=== PATIENT | male | born 1975 | race Caucasian/White ===

== ENCOUNTER 2021-09-14 07:19 | Outpatient (CLI) | payer BC, SELFPAY ==
[2021-09-14 08:17] LABS: International Normalized Ratio 1.8; Prothrombin Time (Protime)PT. 19.9 SECONDS (11.7-14.9)
[2021-09-14 08:18] LABS: Partial Thromboplast Time 45.6 Seconds (24.1-36.2)
[2021-09-14 08:24] LABS: Erythrocyte Sedimentation Rate 37 mm/hr (0-20)
[2021-09-14 08:31] LABS: Absolute Neutrophil Count 5.2 X10^3/uL (2.0-7.7); Basophil# 0.06 X10^3/uL; Basophil% 0.8 % (0-1); Eosinophil# 0.35 X10^3/uL; Eosinophils% 4.7 % (0-5); Hematocrit 32.5 % (40-54); Mean Corpuscular Volume 102.8 fL (80-94); Mean Platelet Vol. 9.3 fl (6.2-12.0); Monocyte# 0.67 X10^3/uL; Monocyte% 8.9 % (0-10); NRBC Flagged by Analyzer 0 % (0-5); Neutrophil # 5.22 X10^3/uL (2.7-7.7); Neutrophil % 69.3 % (47-70); POSITIVE COUNT YES; Platelet Count 147 K/mm3 (150-450); RBC Distribution Width CV 12.6 % (11.6-14.6); RBC Distribution Width SD 47.4 fl (35.1-43.9); Red Blood Count 3.16 M/mm3 (4.6-6.2); White Blood Count 7.5 K/mm3 (4.4-11.0)
[2021-09-14 08:39] LABS: Hemoglobin A1c 7.3 % (3.8-5.6)
[2021-09-14 08:48] LABS: ALB/GLOB Ratio 0.5 RATIO (0.9-2.4); AST(SGOT) 49 U/L (15-37); Alanine Aminotransfer ALT/SGPT 36 U/L (16-61); Albumin, Serum 2.7 g/dL (3.2-5.0); Alkaline Phosphatase 318 U/L (45-117); Anion Gap 7 (5-15); BUN 13 mg/dL (7-18); Bilirubin, Direct 1.89 mg/dL (0.00-0.30); CRP 4.16 mg/L (0.0-3.0); Calcium,Total 8.6 mg/dL (8.5-10.1); Chloride 97 mmol/L (98-107); Creatinine, Serum 0.93 mg/dL (0.70-1.30); EST Glomerular Filtration Rate 93 mL/min (>60); Est Glom Filt Rate - Afr Amer 112 mL/min (>60); Ferritin 382 ng/mL (26-388); Globulin 5.1 g/dL (2.2-4.2); Glucose 204 mg/dL (74-106); Iron 212 ug/dL (65-175); Iron Binding Capacity,Total 235 ug/dL (250-450); LDH 222 U/L (87-241); PERCENT IRON SATURATION 90.2 % (15.0-55.0); Protein, Total 7.8 g/dL (6.4-8.2); Sodium Level 132 mmol/L (136-145)
[2021-09-14 09:13] LABS: Hepatitis C Antibody Non-Reactive (Nonreactive)
[2021-09-14 09:21] LABS: Mean Corpuscular Hgb 41.1 pg (27.0-32.0)
[2021-09-15 16:10] LABS: Anti-Centromere B Ab <0.2 AI (0.0-0.9); Anti-Chromatin <0.2 AI (0.0-0.9); Anti-Jo <0.2 AI (0.0-0.9); Anti-Scleroderma-70 AB <0.2 AI (0.0-0.9); RNP Ab 1.6 AI (0.0-0.9); SJOGREN'S Anti-SS-A test < 0.2 AI (0.0-0.9); SJOGREN'S Anti-SS-B test < 0.2 AI (0.0-0.9); Smith Ab <0.2 AI (0.0-0.9)
[2021-09-15 17:51] LABS: Anti-Mitochondrial AB <20.0 Units (0.0-20.0); Anti-dsDNA Ab <1 IU/mL (0-9)
[2021-09-16 16:11] LABS: Angiotensin Convert Enzyme 186 U/L (14-82)
[2021-09-16 19:08] LABS: Anti-Smooth Muscle ABS 16 Units (0-19)
[2021-09-16 19:09] LABS: Ceruloplasmin 13.6 mg/dL (16.0-31.0); Perinuclear Ab (P-ANCA) <1:20 titer (Neg:<1:20)
== END 2021-09-14 23:59 | disposition home or self-care (01) ==
LOC: LAB 07:24
PROVIDERS: Referring Provider Nurse Practitioner Adult Health; Visit Provider Nurse Practitioner Adult Health
DX: K70.10 Alcoholic hepatitis without ascites (principal)
CPT/HCPCS: 36415; 80053; 82140; 82164; 82248; 82390; 82728; 83036; 83516; 83540; 83550; 83615; 85025; 85610; 85652; 85730; 86140; 86225; 86235; 86256; 86803

== ENCOUNTER 2021-09-26 11:08 | Emergency (ER) | payer BC, SELFPAY ==
[2021-09-26 11:10] VITALS: BP 160/91; PULSE 98; RESP 18; TEMP 36.5; O2SAT 100; BMI 24.3
[2021-09-26 11:48] LABS: Absolute Neutrophil Count 5.6 X10^3/uL (2.0-7.7); Basophil# 0.04 X10^3/uL; Basophil% 0.6 % (0-1); Eosinophil# 0.05 X10^3/uL; Eosinophils% 0.7 % (0-5); Lymphocyte % 11.4 % (19-41); Mean Platelet Vol. 9.2 fl (6.2-12.0); Monocyte# 0.55 X10^3/uL; Monocyte% 7.8 % (0-10); NRBC Flagged by Analyzer 0 % (0-5); Neutrophil # 5.57 X10^3/uL (2.7-7.7); Neutrophil % 79.1 % (47-70); POSITIVE COUNT YES; Platelet Count 127 K/mm3 (150-450); RBC Distribution Width CV 13.2 % (11.6-14.6); RBC Distribution Width SD 52.6 fl (35.1-43.9); Red Blood Count 3.29 M/mm3 (4.6-6.2)
[2021-09-26 12:01] LABS: Hemoglobin 12.9 g/dL (13.0-16.5)
[2021-09-26 12:02] LABS: AST(SGOT) 63 U/L (15-37); Alanine Aminotransfer ALT/SGPT 41 U/L (16-61); Alkaline Phosphatase 181 U/L (45-117); Anion Gap 8 (5-15); BUN 20 mg/dL (7-18); BUN/Creat Ratio 17.2 RATIO (10-20); Bilirubin, Direct 2.19 mg/dL (0.00-0.30); Calcium,Total 9.5 mg/dL (8.5-10.1); Chloride 100 mmol/L (98-107); Creatinine, Serum 1.16 mg/dL (0.70-1.30); EST Glomerular Filtration Rate 72 mL/min (>60); Est Glom Filt Rate - Afr Amer 87 mL/min (>60); Estimated Creatinine Clearance 78.72 ml/min; Globulin 5.5 g/dL (2.2-4.2); Glucose 184 mg/dL (74-106); Hematocrit 35.4 % (40-54); Lipase 194 U/L (73-393); Mean Corp Hgb Conc 36.4 g/dL (32-36); Mean Corpuscular Hgb 38.7 pg (27.0-32.0); Mean Corpuscular Volume 106.3 fL (80-94); Potassium 4.3 mmol/L (3.5-5.1); Protein, Total 8.5 g/dL (6.4-8.2); Sodium Level 132 mmol/L (136-145)
[2021-09-26 12:07] LABS: International Normalized Ratio 1.6; Prothrombin Time (Protime)PT. 18.6 SECONDS (11.7-14.9)
--- NOTE | 2021-09-26 12:31 | ED.VIS.GI ---
HPI HPI - GI History of Present Illness Chief Complaint: Confusion Narrative Narrative: 46-year-old male with history of alcoholic hepatitis, elevated bilirubin, hepatic encephalopathy presenting with some confusion. He states he does have confusion at baseline but feels more confused. He states his jaundice is back. Patient states he was started on pioglitazone by Dr. Martinez and this is making him feel nauseous. He does not admit to drinking alcohol anymore. PFSH PFSH Medical History Liver damage Home Medications cyanocobalamin (vitamin B-12) 1,000 mcg capsule 1,000 mcg PO DAILY 09/13/21 [History Last Taken Unknown] folic acid 1 mg tablet 1 mg PO DAILY 09/13/21 [History Last Taken Unknown] neomycin 500 mg tablet 500 mg PO BID #180 tab 09/23/21 [Rx Last Taken Unknown] pioglitazone 30 mg tablet 30 mg PO DAILY #90 tab 09/23/21 [Rx Last Taken Unknown] furosemide 40 mg tablet 40 mg PO DAILY #30 tab 09/24/21 [Rx Last Taken Unknown] lactulose 20 gram/30 mL oral solution 20 g PO BID #1200 ml 09/24/21 [Rx Last Taken Unknown] pantoprazole 40 mg tablet,delayed release 40 mg PO DAILY #30 tab 09/24/21 [Rx Last Taken Unknown] spironolactone 50 mg tablet 50 mg PO DAILY #30 tab 09/24/21 [Rx Last Taken Unknown] lactulose 30 g PO Q1H 1 Days #1080 ml 09/26/21 [Rx Last Taken Unknown] Allergy/AdvReac Type Severity Reaction Status Date / Time No Known Allergies Allergy Verified 09/26/21 11:12 Family History Other CVA (cerebral vascular accident) Heart disease Hypertension 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 Status: Former smoker alcohol intake: former substance use type: does not use what type of physical activity do you participate in: other frequency: 1-2 times per week ROS ROS ED Constitutional Constitutional ED: Denies chills or fever(s) ENT ENT ED: Denies rhinorrhea or sore throat Cardiovascular Cardiovascular: Denies chest pain or palpitations Respiratory/Chest Respiratory/Chest: Denies cough or dyspnea Gastrointestinal Gastrointestinal: Reports nausea; Denies abdominal pain Genitourinary Genitourinary ED: Denies dysuria or hematuria Musculoskeletal Musculoskeletal: Denies myalgias or neck pain Integumentary Denies rash Neurologic Neurologic: Denies headache(s) or weakness EXAM Physical Exam Const Vital Signs: 09/26/21 11:10 09/26/21 11:44 09/26/21 13:57 Temperature 97.7 F L Temperature Source Temporal Pulse Rate 98 79 Respiratory Rate 18 16 Respiratory Effort Normal Respiratory Pattern Normal Blood Pressure 160/91 H 146/77 H Blood Pressure Mean 114 100 Pulse Ox 100 98 Oxygen Delivery Method Room Air Room Air 09/26/21 15:09 Temperature Temperature Source Pulse Rate 78 Respiratory Rate 16 Respiratory Effort Respiratory Pattern Blood Pressure 139/89 H Blood Pressure Mean 105 Pulse Ox 99 Oxygen Delivery Method Positive well nourished General Appearance ED: NAD HEENT normocephalic and atraumatic Eyes PERRL and EOMs intact bilaterally General Eye ED: Yes scleral icterus Neck no lymphadenopathy and supple Resp normal respiratory effort and clear to auscultation bilaterally Cardio regular rate and regular rhythm GI non-tender and non-distended Palpation: soft Neuro Sensorium / Orientation: alert, oriented to person, oriented to place and oriented to time Psych Psych Narrative: Patient is a poor informant and unable to give full history due to his confusion but is alert and oriented x3 Skin General Skin Exam: jaundice Rashes: no rashes MDM MDM MDM Narrative Medical decision making narrative: 46-year-old male presenting with history of alcoholic hepatitis and worsening confusion. Apparently he used to live in [place] and was diagnosed with this in September 2020. He states he does not drink any longer but continues to have problems. He has never had ascites. He has had coagulopathy. Patient is already seen in by Dr. Martinez's office and at that time he had a high ammonia level. He was given lactulose for home. Patient also states he was started on pioglitazone. Patient is currently waiting for liver elastography and liver biopsy due to his high meld score. Dr. Martinez also wants to perform an EGD to check for esophageal varices. After reviewing the medical record I went back into the room to speak with the patient and his and he seems to be more awake and alert currently. We went over his medical history. We went over all of his lab results. I discussed with him that I had spoken with Dr. Martinez and that he recommended staying on the medications he had prescribed and recommended lactulose every hour for the next day and then a follow-up ammonia level. Patient CBC is unremarkable. BMP does show hyperglycemia with a glucose 24 without an anion gap and I did review the record and saw that his A1c was 7.2. Patient is currently on pioglitazone he was given follow-up with endocrinology. His total bilirubin is elevated at 7.60 over his previous and his direct bilirubin is not significantly much more elevated. This was discussed with Dr. Martinez and he felt the patient could follow-up outpatient with him for repeat lab work after he gets lactulose any wants to recheck his ammonia in 24 hours anyway. Patient's vitals are normal. He is amenable to this plan. I did add on a urinalysis which was negative for infection. Urine drug screen was requested by Dr. Martinez and this is normal. EtOH negative. Acetaminophen level normal. Dr. Martinez did add on a copper level which I do not believe come back today. He did have concern for Mario's disease. Patient amenable to this discharge plan he will follow-up with Dr. Martinez. Impression: 1. Hepatic encephalopathy 2. History of alcoholic hepatitis Lab Data Attestation: I reviewed the patient's lab results. Labs: Laboratory Results - last 24 hr 09/26/21 09/26/21 09/26/21 11:40 11:40 11:40 WBC 7.0 RBC 3.29 L Hgb 12.9 L Hct 35.4 L MCV 106.3 H MCH 38.7 H MCHC 36.4 H RDW Std Deviation 52.6 H RDW Coeff of Kaela 13.2 Plt Count 127 L MPV 9.2 Immature Gran % (Auto) 0.400 Neut % (Auto) 79.1 H Lymph % (Auto) 11.4 L Granite % (Auto) 7.8 Eos % (Auto) 0.7 Baso % (Auto) 0.6 Absolute Neuts (auto) 5.6 Absolute Lymphs (auto) 0.80 L Nucleated RBC % 0 PT 18.6 H INR 1.6 Sodium 132 L Potassium 4.3 Chloride 100 Carbon Dioxide 24.0 Anion Gap 8 BUN 20 H Creatinine 1.16 Estim Creat Clear Calc 78.72 Est GFR (MDRD) Af Amer 87 Est GFR (MDRD) Non-Af 72 BUN/Creatinine Ratio 17.2 Glucose 184 H Calcium 9.5 Total Bilirubin 7.60 H Direct Bilirubin 2.19 H AST 63 H ALT 41 Alkaline Phosphatase 181 H Ammonia Total Protein 8.5 H Albumin 3.0 L Globulin 5.5 H Lipase 194 Urine Color Urine Clarity Urine pH Ur Specific [place] Urine Protein Urine Glucose (UA) Urine Ketones Urine Occult Blood Urine Nitrite Urine Bilirubin Urine Urobilinogen Ur Leukocyte Esterase Urine RBC Urine WBC Ur Squamous Epith Cells Urine Bacteria Urine Mucus Urine Opiates Screen Urine Methadone Screen Acetaminophen Ur Barbiturates Screen Ur Phencyclidine Scrn Ur Amphetamines Screen MDMA (Ecstasy) Screen U Benzodiazepines Scrn Urine Cocaine Screen U Cannabinoids Screen Ur Drug Screen Comment Ethyl Alcohol 09/26/21 09/26/21 09/26/21 11:40 14:35 14:40 WBC RBC Hgb Hct MCV MCH MCHC RDW Std Deviation RDW Coeff of Kaela Plt Count MPV Immature Gran % (Auto) Neut % (Auto) Lymph % (Auto) Granite % (Auto) Eos % (Auto) Baso % (Auto) Absolute Neuts (auto) Absolute Lymphs (auto) Nucleated RBC % PT INR Sodium Potassium Chloride Carbon Dioxide Anion Gap BUN Creatinine Estim Creat Clear Calc Est GFR (MDRD) Af Amer Est GFR (MDRD) Non-Af BUN/Creatinine Ratio Glucose Calcium Total Bilirubin Direct Bilirubin AST ALT Alkaline Phosphatase Ammonia 82.0 H Total Protein Albumin Globulin Lipase Urine Color Urine Clarity Urine pH Ur Specific [place] Urine Protein Urine Glucose (UA) Urine Ketones Urine Occult Blood Urine Nitrite Urine Bilirubin Urine Urobilinogen Ur Leukocyte Esterase Urine RBC Urine WBC Ur Squamous Epith Cells Urine Bacteria Urine Mucus Urine Opiates Screen NEGATIVE Urine Methadone Screen NEGATIVE Acetaminophen < 2.0 L Ur Barbiturates Screen NEGATIVE Ur Phencyclidine Scrn NEGATIVE Ur Amphetamines Screen NEGATIVE MDMA (Ecstasy) Screen NEGATIVE U Benzodiazepines Scrn NEGATIVE Urine Cocaine Screen NEGATIVE U Cannabinoids Screen NEGATIVE Ur Drug Screen Comment Ethyl Alcohol < 3.0 09/26/21 14:45 WBC RBC Hgb Hct MCV MCH MCHC RDW Std Deviation RDW Coeff of Kaela Plt Count MPV Immature Gran % (Auto) Neut % (Auto) Lymph % (Auto) Granite % (Auto) Eos % (Auto) Baso % (Auto) Absolute Neuts (auto) Absolute Lymphs (auto) Nucleated RBC % PT INR Sodium Potassium Chloride Carbon Dioxide Anion Gap BUN Creatinine Estim Creat Clear Calc Est GFR (MDRD) Af Amer Est GFR (MDRD) Non-Af BUN/Creatinine Ratio Glucose Calcium Total Bilirubin Direct Bilirubin AST ALT Alkaline Phosphatase Ammonia Total Protein Albumin Globulin Lipase Urine Color Yellow Urine Clarity Clear Urine pH 6.5 Ur Specific [place] 1.015 Urine Protein Negative Urine Glucose (UA) Normal Urine Ketones 5 H Urine Occult Blood 10 H Urine Nitrite Negative Urine Bilirubin 1 H Urine Urobilinogen 8 H Ur Leukocyte Esterase 25 H Urine RBC 0 SEEN Urine WBC 0 SEEN Ur Squamous Epith Cells 0 SEEN Urine Bacteria 0 SEEN Urine Mucus 0 SEEN Urine Opiates Screen Urine Methadone Screen Acetaminophen Ur Barbiturates Screen Ur Phencyclidine Scrn Ur Amphetamines Screen MDMA (Ecstasy) Screen U Benzodiazepines Scrn Urine Cocaine Screen U Cannabinoids Screen Ur Drug Screen Comment Ethyl Alcohol Discharge Plan Triage Chief Complaint: Confusion ED Provider: Joseph Guerrero Dx/Rx/DC Orders Instructions: Hepatic Encephalopathy, ED Hyperglycemia New Susp Diabetes Prescriptions: New lactulose 10 gram/15 mL (15 mL) solution 30 g PO Q1H 1 Days Qty: 1080 RF: 0 No Action cyanocobalamin (vitamin B-12) 1,000 mcg capsule 1,000 mcg PO DAILY RF: 0 folic acid 1 mg tablet 1 mg PO DAILY RF: 0 neomycin 500 mg tablet 500 mg PO BID Qty: 180 RF: 1 pioglitazone 30 mg tablet 30 mg PO DAILY Qty: 90 RF: 1 spironolactone 50 mg tablet 50 mg PO DAILY Qty: 30 RF: 5 pantoprazole 40 mg tablet,delayed release (DR/EC) 40 mg PO DAILY Qty: 30 RF: 5 furosemide 40 mg tablet 40 mg PO DAILY Qty: 30 RF: 5 lactulose 20 gram/30 mL solution 20 g PO BID Qty: 1200 RF: 5 Primary Care Provider: Care Physician,No Primary Referrals: Nate Martinez DO [STAFF PHYSICIAN] - As soon as possible Eddie Valencia MD [STAFF PHYSICIAN] - As soon as possible Care Physician,No Primary [Primary Care Provider] - Disposition Disposition: Home, Self Care
[2021-09-26 13:57] VITALS: BP 146/77; PULSE 79; RESP 16; O2SAT 98
--- NOTE | 2021-09-26 14:01 | ED.RN ---
pt verbalizing and following direction more fluently. pt reports feels better than he did/ respoonding more quickly and accurately. conversing appropriately
[2021-09-26] MEDS: Ondansetron 4 MG/2 ML Vial IV (14:45)
[2021-09-26 14:52] LABS: Bacteria 0 SEEN /hpf (None Seen); Mucous, Urine 0 SEEN /hpf (<or=2+); Red Blood Cells-Urine 0 SEEN /hpf (0-5); Squamous Epithelial Cells - UA 0 SEEN /hpf (0-5); White Blood Cells 0 SEEN /hpf (0-5)
[2021-09-26 14:53] LABS: Color, Urine Yellow (Yellow); Glucose, Dipstick Normal (Normal); Ketone-Dipstick 5 mg/dl (Negative); Leukocyte Esterase-Dipstick 25 /ul (Negative); Nitrite-Dipstick Negative (Negative); Occult Blood-Urine 10 /ul (Negative); Specific Gravity, Urine 1.015 (1.002-1.030); Urine Clarity Clear (Clear); Urine Urobilinogen 8 mg/dl (Normal)
[2021-09-26 15:09] VITALS: BP 139/89; PULSE 78; RESP 16; O2SAT 99
[2021-09-26 15:19] LABS: Protein-Dipstick Negative (Negative); Urine pH 6.5 (5.0 - 8.0)
[2021-09-26 15:21] LABS: Acetaminophen (Tylenol) Level < 2.0 ug/mL (10.0-30.0); Alcohol, Blood (Medical)-Serum < 3.0 mg/dL
[2021-09-26 15:26] LABS: Urine Bilirubin Dipstick 1 mg/dL (Negative)
[2021-09-26 16:11] LABS: Amphetamine Urine VISTA NEGATIVE (<1000 ng/mL); Barbiturate Urine VISTA NEGATIVE (< 200 ng/mL); Benzodiazepine Urine VISTA NEGATIVE (< 200 ng/mL); Cocaine Urine VISTA NEGATIVE (< 300 ng/mL); Ecstacy Urine VISTA NEGATIVE (< 500 ng/mL); Methadone Urine VISTA NEGATIVE (< 300 ng/mL); PCP Urine VISTA NEGATIVE (< 25 ng/mL); THC Urine VISTA NEGATIVE (< 50 ng/mL); Vista UDS pH Range 6
[2021-09-26 16:27] VITALS: BP 139/88; PULSE 84; RESP 16; TEMP 36.7; O2SAT 99
[2021-09-29 13:34] LABS: Copper, Serum or Plasma 66 ug/dL (69-132)
== END 2021-09-26 16:28 | disposition home or self-care (01) ==
PROVIDERS: Internal Medicine Gastroenterology; Emergency Provider Student in an Organized Health Care Education/Training Program; Visit Provider Student in an Organized Health Care Education/Training Program
DX: K72.90 Hepatic failure, unspecified without coma (principal); K70.10 Alcoholic hepatitis without ascites; R73.9 Hyperglycemia, unspecified; Z79.899 Other long term (current) drug therapy; Z87.891 Personal history of nicotine dependence
CPT/HCPCS: 80048; 80076; 80307; 80329; 81001; 82077; 82140; 82525; 83690; 85025; 85610; 96374; 99284; A4216; G0480; J2405

== ENCOUNTER 2021-09-27 08:31 | Outpatient (CLI) | payer BC, SELFPAY ==
[2021-09-27 08:56] LABS: Absolute Lymphocyte Count 1.09 X10^3/uL (0.83-4.51); Absolute Neutrophil Count 4.9 X10^3/uL (2.0-7.7); Basophil# 0.05 X10^3/uL; Basophil% 0.7 % (0-1); Eosinophil# 0.23 X10^3/uL; Eosinophils% 3.2 % (0-5); Hematocrit 33.6 % (40-54); Hemoglobin 12.6 g/dL (13.0-16.5); Lymphocyte # 1.09 X10^3/ul (0.83-4.51); Lymphocyte % 15.2 % (19-41); Mean Corp Hgb Conc 37.5 g/dL (32-36); Mean Corpuscular Hgb 40.1 pg (27.0-32.0); Mean Platelet Vol. 9.6 fl (6.2-12.0); Monocyte# 0.85 X10^3/uL; Monocyte% 11.8 % (0-10); NRBC Flagged by Analyzer 0 % (0-5); Neutrophil # 4.94 X10^3/uL (2.7-7.7); Neutrophil % 68.7 % (47-70); Platelet Count 142 K/mm3 (150-450); RBC Distribution Width CV 13.5 % (11.6-14.6); RBC Distribution Width SD 53.1 fl (35.1-43.9); Red Blood Count 3.14 M/mm3 (4.6-6.2); White Blood Count 7.2 K/mm3 (4.4-11.0)
[2021-09-27 09:05] LABS: International Normalized Ratio 1.8; Prothrombin Time (Protime)PT. 19.9 SECONDS (11.7-14.9)
[2021-09-27 09:50] LABS: HIV - WCH Non-Reactive (Nonreactive)
[2021-09-27 11:08] LABS: ALB/GLOB Ratio 0.5 RATIO (0.9-2.4); AST(SGOT) 61 U/L (15-37); Alanine Aminotransfer ALT/SGPT 43 U/L (16-61); Alkaline Phosphatase 186 U/L (45-117); Anion Gap 7 (5-15); BUN 28 mg/dL (7-18); BUN/Creat Ratio 22.8 RATIO (10-20); Chloride 98 mmol/L (98-107); Creatinine, Serum 1.23 mg/dL (0.70-1.30); EST Glomerular Filtration Rate 67 mL/min (>60); Est Glom Filt Rate - Afr Amer 81 mL/min (>60); Globulin 5.5 g/dL (2.2-4.2); Glucose 144 mg/dL (74-106); LDH 233 U/L (87-241); Potassium 4.4 mmol/L (3.5-5.1); Protein, Total 8.5 g/dL (6.4-8.2); Sodium Level 130 mmol/L (136-145)
[2021-09-28 16:47] LABS: Haptoglobin < 10 mg/dL (23-355)
== END 2021-09-27 23:59 | disposition home or self-care (01) ==
LOC: LAB 08:32
PROVIDERS: Nurse Practitioner Adult Health; Referring Provider Internal Medicine Gastroenterology; Visit Provider Internal Medicine Gastroenterology
DX: K76.9 Liver disease, unspecified (principal); K70.10 Alcoholic hepatitis without ascites
CPT/HCPCS: 36415; 80053; 82140; 82248; 83010; 83615; 85025; 85610; 86703

== ENCOUNTER 2021-09-29 08:38 | Outpatient (CLI) | payer BC, SELFPAY ==
[2021-09-29 08:55] LABS: Absolute Lymphocyte Count 1.34 X10^3/uL (0.83-4.51); Absolute Neutrophil Count 5.5 X10^3/uL (2.0-7.7); Basophil# 0.08 X10^3/uL; Eosinophil# 0.37 X10^3/uL; Eosinophils% 4.6 % (0-5); Hematocrit 33.4 % (40-54); Hemoglobin 12.5 g/dL (13.0-16.5); Lymphocyte # 1.34 X10^3/ul (0.83-4.51); Lymphocyte % 16.8 % (19-41); Mean Corp Hgb Conc 37.4 g/dL (32-36); Mean Corpuscular Hgb 39.8 pg (27.0-32.0); Mean Corpuscular Volume 106.4 fL (80-94); Mean Platelet Vol. 9.7 fl (6.2-12.0); Monocyte# 0.69 X10^3/uL; Monocyte% 8.6 % (0-10); NRBC Flagged by Analyzer 0 % (0-5); Neutrophil # 5.47 X10^3/uL (2.7-7.7); Neutrophil % 68.5 % (47-70); Platelet Count 135 K/mm3 (150-450); RBC Distribution Width CV 13.3 % (11.6-14.6); RBC Distribution Width SD 52.7 fl (35.1-43.9); Red Blood Count 3.14 M/mm3 (4.6-6.2)
[2021-09-29 09:08] LABS: International Normalized Ratio 1.7; Prothrombin Time (Protime)PT. 19.1 SECONDS (11.7-14.9)
[2021-09-29 09:18] LABS: ALB/GLOB Ratio 0.6 RATIO (0.9-2.4); AST(SGOT) 63 U/L (15-37); Alanine Aminotransfer ALT/SGPT 43 U/L (16-61); Albumin, Serum 2.9 g/dL (3.2-5.0); Alkaline Phosphatase 198 U/L (45-117); Anion Gap 8 (5-15); BUN 32 mg/dL (7-18); BUN/Creat Ratio 21.9 RATIO (10-20); Bilirubin, Direct 1.92 mg/dL (0.00-0.30); Calcium,Total 8.9 mg/dL (8.5-10.1); Chloride 97 mmol/L (98-107); Creatinine, Serum 1.46 mg/dL (0.70-1.30); EST Glomerular Filtration Rate 55 mL/min (>60); Est Glom Filt Rate - Afr Amer 66 mL/min (>60); Globulin 5.1 g/dL (2.2-4.2); Glucose 142 mg/dL (74-106); LDH 218 U/L (87-241); Potassium 4.2 mmol/L (3.5-5.1); Sodium Level 130 mmol/L (136-145)
== END 2021-09-29 23:59 | disposition home or self-care (01) ==
LOC: LAB 08:39
PROVIDERS: Referring Provider Nurse Practitioner Adult Health; Visit Provider Nurse Practitioner Adult Health
DX: K72.90 Hepatic failure, unspecified without coma (principal); K70.10 Alcoholic hepatitis without ascites
CPT/HCPCS: 36415; 80053; 82140; 82248; 83615; 85025; 85610

== ENCOUNTER 2021-10-08 08:46 | Outpatient (CLI) | payer BC, SELFPAY ==
--- NOTE | 2021-10-08 08:57 | US_ITS ---
STUDY: ABDOMINAL ULTRASOUND - ELASTOGRAPHY REASON FOR VISIT: Male, 46 years old. Fatty infiltration of the liver. TECHNIQUE: Liver stiffness measurements were obtained on a [employer] RS 85 ultrasound machine using a CA 1-7 probe following the SRU guidelines. 3 measurements were obtained using a 2-D-SWE method. TheIQR/M was 10% suggesting a quality data set. TECHNICAL QUALITY: Adequate. COMPARISON: None. FINDINGS: Liver: Fatty infiltration of the liver. Median liver stiffness measured 39.8 kPa. US/Elastography Parenchyma/Organ IMPRESSION: Liver stiffness measures 39.8 kPa compatible with F4 Metavir score. Electronically Signed: Arthur Chow MD at 14:38 EDT ,
--- NOTE | 2021-10-08 09:03 | US_ITS ---
STUDY: ABDOMINAL ULTRASOUND - RIGHT UPPER QUADRANT REASON FOR VISIT: Male, 46 years old LIVER DISEASE TECHNIQUE: Ultrasound evaluation of the right upper quadrant was performed with real-time and static eagle-scale imaging. TECHNICAL QUALITY: Adequate. COMPARISON: None. FINDINGS: Liver: The liver measures 12.8 cm. Mild degree of perihepatic fluid. There is increased echogenicity consistent with fatty infiltration. The bile ducts are within normal limits. There is hepatic color flow. The direction of portal flow is hepatopetal. There is no demonstrated mass lesion. Gallbladder: Normal distended gallbladder. The gallbladder wall measures 3.5 mm. There is a negative sonographic Prabhakar''s sign. There is no pericholecystic fluid. There are no gallstones. Common Bile Duct (C.B.D.): The common bile duct measures 5.4 mm. Pancreas: Normal size of the head, body and tail of the pancreas. There is normal echogenicity of the pancreas. There is no demonstrated pancreatic mass or cyst. Right Kidney: Normal size of the right kidney. The right kidney measures 12.4 cm x 6.1 cm x 6.7 cm. Normal renal cortex. The right cortex measures 1.8 cm. There is no demonstrated renal mass or cyst. There is no right hydronephrosis. US/Abdomen Limited IMPRESSION: Fatty position of the liver. Electronically Signed: Arthur Chow MD at 14:37 EDT ,
== END 2021-10-08 23:59 | disposition home or self-care (01) ==
PROVIDERS: Referring Provider Nurse Practitioner Adult Health; Visit Provider Nurse Practitioner Adult Health
DX: K76.9 Liver disease, unspecified (principal)
CPT/HCPCS: 76705; 76981

== ENCOUNTER 2021-10-11 07:51 | Outpatient (CLI) | payer BC, SELFPAY ==
[2021-10-11] VITALS (7 sets, daily range): BP systolic 99–112; BP diastolic 56–65; PULSE 70–86; RESP 15–18; TEMP 36.6–36.9; O2SAT 98–100; BMI 24.3
--- NOTE | 2021-10-11 | LIVB_PTH ---
PATIENT: ALEX ROJO LOC: [place] U#:[id number] AGE/SX: 46/M ROOM: RE10/11/[address]: MABEL Payne : 1975 BED: DIS: 10/11/2021 SPEC #: [id number] RECD: 10/11/21 09:41 STATUS: BRANDON REReal #: [id number] VIKTOR: 10/11/21 00:[address]: Debra Lipscomb NP DEPT: SURGICAL PATHOLOGY RECD BY: Shara Davenport ENTERED: 10/11/21 09:56 SP TYPE: LIVER BX OTHR DR: Viviane Primary Care Phys Tissues: Liver, NOS Procedures: PAS with Diastase (control) Trichrome (control) Special Stain Group II PAS Stain (control) Surgery Specimen Level V Retic (control) Iron Stain (control) HEADER OPERATION: Liver biopsy PRE-OP DIAGNOSIS: Cirrhosis TISSUE SUBMITTED: Liver biopsy 18-gauge x3 MICROSCOPIC DIAGNOSIS Liver, core biopsy: Consistent with cirrhosis. See microscopic description and comment. SJ:kelsey 10/12/2021 COMMENT Correlation with clinical, laboratory findings and appropriate follow up are necessary. Case has been reviewed in consultation with Dr. Gutierres who concurs with the above diagnosis. IDC:MACI MICROSCOPIC DESCRIPTION Slides are reviewed. The specimen shows liver parenchymal tissue with distortion of normal lobular architecture into multiple nodules divided by fibrous septae. The hepatocytes show reactive changes. Fibrous septae shows moderate chronic inflammatory cell infiltrates consisting predominantly of lymphocytes and ductular proliferation. Focal interface inflammation is noted. Iron stain shows mild increase of iron (1+) in the hepatocytes. Trichrome stain highlights the fibrous septae. Reticular stain is unremarkable and also highlights the fibrous septae. PAS stain with and without diastase do not show any abnormal accumulation of protein. All stains are performed with appropriate matched controls. GROSS DESCRIPTION Received in fixative is one container labeled with the patient's name and designated liver biopsy. The specimen consists of three elongated fragments of santiago soft tissue each measuring 1.5 cm in length and 0.1 cm in diameter. The specimen is totally submitted in one cassette. / SJ:kelsey 10/11/2021 TC:5 CPT: 04415, 18324 x5
--- NOTE | 2021-10-11 08:10 | CT_ITS ---
PROCEDURE: CT DIRECTED CORE LIVER BIOPSY INDICATION: Male, 46 years old. Alcoholic hepatitis PHYSICIAN: Dr. MONIKA Choi CONSENT: Written informed consent was obtained having explained the risks, benefits and alternatives in detail with the patient who accepted the risks and agreed to proceed. Laboratory review and clinical assessment was performed. CONSCIOUS SEDATION PROTOCOL: The Drugs used were: 2 mg Versed, IV., and 50 mcg Fentanyl, IV. The sedation time was: 15 minutes. The conscious sedation protocol was independently monitored. Conscious sedation was started at 9:20 AM and terminated at 9:35 AM. RADIATION DOSAGE (If Supplied By Facility): CTDIvol = ( 18 ) mGy, DLP = ( 420.07 ) mGycm Individualized dose optimization techniques were used for this CT. TECHNIQUE: Using CT image guidance with image documentation, a suitable location in the right lobe of the liver was identified. Using an anterior approach, puncture of the liver was uneventful with an 18-gauge core needle system. 3 core samples were obtained, and submitted in formalin to the pathologist for further assessment. Followup CT scan revealed no distinct sequelae. CT/Biopsy/Inj or Needle Placement IMPRESSION: 1. CT directed core needle biopsy of the liver, using CT image guidance with image documentation as described. 2. Conscious Sedation protocol utilized with independent monitoring. Electronically Signed: Arthur Chow MD at 10:26 EDT ,
[2021-10-11 08:11] LABS: Platelet Count 113 K/mm3 (150-450)
[2021-10-11 08:22] LABS: International Normalized Ratio 1.7; Partial Thromboplast Time 42.9 Seconds (24.1-36.2); Prothrombin Time (Protime)PT. 18.9 SECONDS (11.7-14.9)
[2021-10-11] MEDS: 0.9% Saline Lock 10 ML Syringe IV (09:15)
[2021-10-11] MEDS: fentaNYL 100 MCG/2 ML Ampul IV (09:20)
[2021-10-11] MEDS: Midazolam 2 MG/2 ML Syringe IV (09:20)
[2021-10-11] MEDS: Lidocaine 2% (20 ml mdv) 20 ML Vial INFILT (09:21)
== END 2021-10-11 23:59 | disposition home or self-care (01) ==
PROVIDERS: Referring Provider Nurse Practitioner Adult Health; Visit Provider Nurse Practitioner Adult Health
DX: K74.60 Unspecified cirrhosis of liver (principal)
CPT/HCPCS: 36415; 77012; 85049; 85610; 85730; 88307; 88313; 99156; J7040; A4216

== ENCOUNTER 2021-10-27 07:55 | Outpatient (CLI) | payer BC, SELFPAY ==
[2021-10-27 09:01] LABS: EXAGEN MAILED SPECIMEN
[2021-10-27 10:18] LABS: Absolute Lymphocyte Count 1.08 X10^3/uL (0.83-4.51); Absolute Neutrophil Count 3.5 X10^3/uL (2.0-7.7); Basophil# 0.06 X10^3/uL; Basophil% 1.1 % (0-1); Eosinophil# 0.29 X10^3/uL; Eosinophils% 5.2 % (0-5); Hematocrit 32.5 % (40-54); Hemoglobin 11.6 g/dL (13.0-16.5); Lymphocyte # 1.08 X10^3/ul (0.83-4.51); Lymphocyte % 19.4 % (19-41); Mean Corp Hgb Conc 35.7 g/dL (32-36); Mean Corpuscular Hgb 39.7 pg (27.0-32.0); Mean Corpuscular Volume 111.3 fL (80-94); Mean Platelet Vol. 10.5 fl (6.2-12.0); Monocyte# 0.59 X10^3/uL; Monocyte% 10.6 % (0-10); NRBC Flagged by Analyzer 0 % (0-5); Neutrophil # 3.54 X10^3/uL (2.7-7.7); Neutrophil % 63.3 % (47-70); Platelet Count 108 K/mm3 (150-450); RBC Distribution Width CV 13.2 % (11.6-14.6); Red Blood Count 2.92 M/mm3 (4.6-6.2); White Blood Count 5.6 K/mm3 (4.4-11.0)
[2021-10-27 10:22] LABS: Color, Urine Yellow (Yellow); Glucose, Dipstick Normal (Normal); Ketone-Dipstick Negative (Negative); Leukocyte Esterase-Dipstick Negative /ul (Negative); Nitrite-Dipstick Negative (Negative); Occult Blood-Urine Negative /ul (Negative); Protein-Dipstick Negative (Negative); Urine Bilirubin Dipstick Negative (Negative); Urine Clarity Clear (Clear); Urine Urobilinogen Normal (Normal)
[2021-10-27 10:30] LABS: International Normalized Ratio 1.7; Prothrombin Time (Protime)PT. 19.5 SECONDS (11.7-14.9)
[2021-10-27 10:31] LABS: Partial Thromboplast Time 43.8 Seconds (24.1-36.2)
[2021-10-27 10:41] LABS: ALB/GLOB Ratio 0.6 RATIO (0.9-2.4); AST(SGOT) 88 U/L (15-37); Alanine Aminotransfer ALT/SGPT 69 U/L (16-61); Albumin, Serum 2.8 g/dL (3.2-5.0); Alkaline Phosphatase 268 U/L (45-117); Anion Gap 5 (5-15); BUN 15 mg/dL (7-18); Calcium,Total 9.2 mg/dL (8.5-10.1); Chloride 103 mmol/L (98-107); EST Glomerular Filtration Rate 85 mL/min (>60); Est Glom Filt Rate - Afr Amer 103 mL/min (>60); Globulin 4.8 g/dL (2.2-4.2); Glucose 126 mg/dL (74-106); Potassium 4.2 mmol/L (3.5-5.1); Protein, Total 7.6 g/dL (6.4-8.2); Sodium Level 136 mmol/L (136-145)
[2021-10-27 10:42] LABS: Protein, Urine (Random) < 6.0 mg/dL (<11.9)
--- NOTE | 2021-10-27 13:06 | RAD_ITS ---
STUDY: X-RAY - RIGHT HAND REASON FOR EXAM: Male, 46 years old. PAIN. Inflammatory polyarthropathy. TECHNIQUE: 3 view(s) of the hand. COMPARISON: None. FINDINGS: Normal radiocarpal articulation. Normal distal radioulnar joint. Normal visualized carpal bones. Normal carpal articulations Normal carpometacarpal articulation of the thumb. Normal second through fifth carpometacarpal joints. Deformity of the distal portion of the fifth metacarpal most likely secondary to prior boxer type fracture. Normal metacarpophalangeal joint of the thumb. Normal interphalangeal joint of the thumb. Normal proximal and distal phalanges of the thumb. Normal metacarpophalangeal joints of the second through fifth fingers. Normal proximal and distal interphalangeal joints of the second through fifth fingers. Normal phalanges of the second through fifth fingers. The soft tissue structures are unremarkable. RAD/Hand Min 3 Views IMPRESSION: No acute abnormality is seen. Electronically Signed: Arthur Chow MD at 15:13 EDT ,
--- NOTE | 2021-10-27 13:07 | RAD_ITS ---
STUDY: X-RAY - LEFT HAND REASON FOR EXAM: Male, 46 years old. Inflammatory polyarthropathy. Pain. TECHNIQUE: 3 view(s) of the hand. COMPARISON: None. FINDINGS: Normal radiocarpal articulation. Normal distal radioulnar joint. Normal visualized carpal bones. Normal carpal articulations Normal carpometacarpal articulation of the thumb. Normal second through fifth carpometacarpal joints. Normal metacarpi. Normal metacarpophalangeal joint of the thumb. Normal interphalangeal joint of the thumb. Normal proximal and distal phalanges of the thumb. Normal metacarpophalangeal joints of the second through fifth fingers. Normal proximal and distal interphalangeal joints of the second through fifth fingers. Normal phalanges of the second through fifth fingers. The soft tissue structures are unremarkable. RAD/Hand Min 3 Views IMPRESSION: Normal x-ray examination of the hand. Electronically Signed: Arthur Chow MD at 15:12 EDT ,
[2021-10-29 11:34] LABS: Thrombin Time 18.9 sec (0.0-23.0)
[2021-10-29 13:08] LABS: Dilute Prothrombin Time (dPT) 45.2 sec (0.0-47.6); Dilute Russell Viper Venom 37.9 sec (0.0-47.0); Hexagonal Phase Phospholipid 3 sec (0-11); Thrombin Time 20.3 sec (0.0-23.0); dPT Confirm Ratio 0.71 Ratio (0.00-1.34)
[2021-10-29 13:25] LABS: Interpretation Comment: (.)
== END 2021-10-27 23:59 | disposition home or self-care (01) ==
PROVIDERS: PCP Internal Medicine; Referring Provider Internal Medicine Rheumatology; Visit Provider Internal Medicine Rheumatology
DX: M06.4 Inflammatory polyarthropathy (principal); K72.90 Hepatic failure, unspecified without coma; K70.30 Alcoholic cirrhosis of liver without ascites; R76.8 Other specified abnormal immunological findings in serum
CPT/HCPCS: 36415; 73130; 80053; 81002; 82570; 84156; 85025; 85598; 85610; 85670; 85730

== ENCOUNTER 2021-11-12 08:06 | Outpatient (RCR) | payer BC, SELFPAY ==
[2021-11-12 09:46] LABS: International Normalized Ratio 1.7; Prothrombin Time (Protime)PT. 19.7 SECONDS (11.7-14.9)
[2021-11-12 10:08] LABS: ALB/GLOB Ratio 0.6 RATIO (0.9-2.4); AST(SGOT) 69 U/L (15-37); Alanine Aminotransfer ALT/SGPT 57 U/L (16-61); Albumin, Serum 2.6 g/dL (3.2-5.0); Alkaline Phosphatase 275 U/L (45-117); Anion Gap 4 (5-15); BUN 31 mg/dL (7-18); BUN/Creat Ratio 30.4 RATIO (10-20); Calcium,Total 8.9 mg/dL (8.5-10.1); Chloride 104 mmol/L (98-107); Creatinine, Serum 1.02 mg/dL (0.70-1.30); EST Glomerular Filtration Rate 83 mL/min (>60); Est Glom Filt Rate - Afr Amer 100 mL/min (>60); Globulin 4.7 g/dL (2.2-4.2); Glucose 123 mg/dL (74-106); Potassium 4.9 mmol/L (3.5-5.1); Protein, Total 7.3 g/dL (6.4-8.2); Sodium Level 137 mmol/L (136-145)
== END 2021-11-12 18:00 | disposition home or self-care (01) ==
LOC: LAB 08:06
PROVIDERS: PCP Internal Medicine
DX: Z01.818 Encounter for other preprocedural examination (principal)
CPT/HCPCS: 36415; 80053; 85610

== ENCOUNTER → 2021-11-19 | Outpatient (CLI) | payer BC, SELFPAY ==
[2021-11-19 09:59] LABS: Bacteria 0 SEEN /hpf (None Seen); Mucous, Urine 0 SEEN /hpf (<or=2+); Red Blood Cells-Urine 0 SEEN /hpf (0-5); Squamous Epithelial Cells - UA 0 SEEN /hpf (0-5); White Blood Cells 0 SEEN /hpf (0-5)
[2021-11-19 12:31] LABS: Color, Urine Yellow (Yellow); Glucose, Dipstick Normal (Normal); Ketone-Dipstick Negative (Negative); Leukocyte Esterase-Dipstick Negative /ul (Negative); Nitrite-Dipstick Negative (Negative); Occult Blood-Urine Negative /ul (Negative); Protein-Dipstick Negative (Negative); Urine Bilirubin Dipstick Negative (Negative); Urine Clarity Clear (Clear); Urine Urobilinogen Normal (Normal)
== END | disposition home or self-care (01) ==
LOC: BIMLAB 09:58
PROVIDERS: PCP Internal Medicine; Referring Provider Internal Medicine; Visit Provider Internal Medicine
DX: R35.0 Frequency of micturition (principal)
CPT/HCPCS: 36415; 81001; 84153; G0103

== ENCOUNTER → 2021-11-29 | Outpatient (CLI) | payer BC, SELFPAY ==
[2021-11-29 09:11] LABS: Absolute Lymphocyte Count 1.07 X10^3/uL (0.83-4.51); Absolute Neutrophil Count 3.7 X10^3/uL (2.0-7.7); Basophil# 0.04 X10^3/uL; Basophil% 0.7 % (0-1); Eosinophils% 5.1 % (0-5); Hematocrit 31.7 % (40-54); Hemoglobin 11.3 g/dL (13.0-16.5); Lymphocyte # 1.07 X10^3/ul (0.83-4.51); Lymphocyte % 18.3 % (19-41); Mean Corp Hgb Conc 35.6 g/dL (32-36); Mean Corpuscular Hgb 41.4 pg (27.0-32.0); Mean Corpuscular Volume 116.1 fL (80-94); Mean Platelet Vol. 9.3 fl (6.2-12.0); Monocyte# 0.69 X10^3/uL; Monocyte% 11.8 % (0-10); NRBC Flagged by Analyzer 0 % (0-5); Neutrophil # 3.71 X10^3/uL (2.7-7.7); Neutrophil % 63.4 % (47-70); Platelet Count 111 K/mm3 (150-450); RBC Distribution Width CV 14.2 % (11.6-14.6); RBC Distribution Width SD 61.1 fl (35.1-43.9); Red Blood Count 2.73 M/mm3 (4.6-6.2); White Blood Count 5.9 K/mm3 (4.4-11.0)
[2021-11-29 09:22] LABS: International Normalized Ratio 1.8; Prothrombin Time (Protime)PT. 20.7 SECONDS (11.7-14.9)
[2021-11-29 09:39] LABS: ALB/GLOB Ratio 0.6 RATIO (0.9-2.4); AST(SGOT) 90 U/L (15-37); Alanine Aminotransfer ALT/SGPT 68 U/L (16-61); Albumin, Serum 2.6 g/dL (3.2-5.0); Alkaline Phosphatase 253 U/L (45-117); Anion Gap 6 (5-15); BUN 17 mg/dL (7-18); BUN/Creat Ratio 18.4 RATIO (10-20); Calcium,Total 8.8 mg/dL (8.5-10.1); Chloride 103 mmol/L (98-107); Creatinine, Serum 0.92 mg/dL (0.70-1.30); EST Glomerular Filtration Rate 93 mL/min (>60); Est Glom Filt Rate - Afr Amer 113 mL/min (>60); Globulin 4.6 g/dL (2.2-4.2); Glucose 143 mg/dL (74-106); Potassium 4.5 mmol/L (3.5-5.1); Protein, Total 7.2 g/dL (6.4-8.2); Sodium Level 138 mmol/L (136-145)
== END | disposition home or self-care (01) ==
LOC: LAB 08:52
PROVIDERS: PCP Internal Medicine; Referring Provider Nurse Practitioner Adult Health; Visit Provider Nurse Practitioner Adult Health
DX: K74.60 Unspecified cirrhosis of liver (principal)
CPT/HCPCS: 36415; 80053; 82140; 82248; 85025; 85610

== ENCOUNTER 2021-12-02 09:32 | Day surgery (SDC) | payer BC, SELFPAY ==
--- NOTE | 2021-12-02 09:41 | PCM.HP.BLA ---
History and Physical Date of Admission: 12/02/21 АЛЕКСАНДР ROJO, is a 46 M who presents to the office today for f/u alcoholic hepatitis, hepatic encephalopathy He established with us 2 wks ago after moving here from [place] where he was diagnosed in September 2020; he had presented to the ED there for an unrelated issue, was then incidentally diagnosed with alcoholic hepatitis. He hasn't had any alcohol since then. He was followed by electronic coils supervisor Dr Diana Abarca in [place] for alcoholic hepatitis w/o ascites, with coagulopathy and jaundice. He states he was told his US and CT didn't show cirrhosis. No hx of EGD, no hx of liver biopsy. MELD-Na was 24 in 01/2021, then 21 in 04/2021; here MELD was 22 on 09/14/21 and now is 26 on 09/19/21. Their plan was to refer him for transplant eval but that was postponed due to insurance issues, and because he was moving. We initiated a metabolic workup which revealed hgb 7.2, this is a new diagnosis of DM, we started him on actos/pioglitazone. His ammonia was very high at 117 despite taking lactulose bid--may be due to DM or varices, we started him on neomycin 500 mg bid. Multiple autoimmune tests were abnormal, so we referred him to rheumatology (he has appt with Dr Sapp on October 26)--elevated [employer] Ab (? mixed connective tissue dz), elevated DIAN (?sarcoidosis), elevated cytoplasmic Ab ANCA (?autoimmune vasculitis). He was seen at the ED on 09/26/21 for worsening confusion. The confusion worsened acutely the morning after he started pioglitazone. His reported he thought they were still in [place], he got in the shower with his clothes on. His jaundice had returned. Bilirubin was up to 7.6. EtOH was negative. Dr Martinez directed him to take lactulose hourly until the confusion resolved. We rechecked labs yesterday--bilirubin down to 4.7 which was baseline. Ammonia level was higher on 09/27/21 (day after ED visit) but pt's confusion had mostly resolved per phone conversation with ; then ammonia yesterday decreased to 75. Creatinine is increased to 1.46 with BUN 32. Platelets, hgb, INR, sodium are stable. Copper is low which Dr Michelle finds consistent with low albumin. Pt's Nicolle joined today's appt via phone. She and Александр report his confusion has resolved. He is tired at end of day. Tolerating neomycin. Nocturia is hourly so sleep is still disrupted. Has diarrhea from lactulose, he has lost 5 lbs. Jaundice resolved. No pruritus. No edema or ascites. ROS Const Constitutional: Positive for fatigue; No fever(s), headache(s), weight change (loss), sleep problems, abnormal sleep pattern or change in appetite ENT ENT: No headache(s), difficulty swallowing, hoarseness or sore throat Resp Respiratory: No cough, hemoptysis or shortness of breath Cardio Cardiology: No chest pain at rest or generalized swelling Gastro GI: Positive for abdominal pain, change in bowel habits, diarrhea and nausea/dyspepsia; No belching, bloating, change in stool character, coffee ground emesis, constipation, cramping, heartburn, difficulty swallowing, feeling full early, excessive flatus, incontinent of stools, Vomiting blood/hematemesis, Blood in stool, loose stools, Black,tarry stools, pain with swallowing or vomiting Musc Musculoskeletal: No joint pain, back pain, joint swelling, numbness or tingling Skin Skin: No itchy eyes or rash Neuro Neurology: No behavioral changes, confusion, headache(s), numbness or tingling Psych Psychiatric: No abnormal sleep pattern, No anxiety, No behavioral changes, No change in appetite, No confusion, No depression and Positive for inattentiveness Endo Endocrine: Positive for fatigue; No cold intolerance, heat intolerance, increased thirst/drinking or weight change (loss) Aller/Imm Allergy/Immunologic: No food intolerance or itchy eyes Matt/Lymp Hematologic/Lymphatic: No easy bleeding, easy bruising or enlarged lymph nodes Exam Const General: cooperative, comfortable, no acute distress, well developed, well groomed and ill appearing chronically Eyes Sclera: sclerae normal GI Inspection: normal to inspection Palpation: soft Skin General: no jaundice Extrem General: no pedal edema Quality Reporting Tobacco Screening ([facility] 138) Smoking Status: Former smoker Assessment and Plan Assessment and Plan (1) Alcoholic hepatitis: Status: Acute (2) Diabetes mellitus type 2 in nonobese: Status: Acute (3) Hepatic encephalopathy: Status: Acute Orders: Orders: Biopsy/Inj or Needle Placement Today K70.10 Plan: 46-year-old male with alcoholic hepatitis, possible cirrhosis, hepatic encephalopathy, new diagnosis of type 2 diabetes. His recent acute confusion has resolved by taking lactulose hourly while awake for the last couple of days. He can go back to his normal dose of 20 g/30 milliliters twice daily and continue the neomycin twice daily. If things no confusion returning he can increase his lactulose dose. He is scheduled for EGD to evaluate for varices and portal hypertensive gastropathy. Liver biopsy is ordered. Liver elastography is ordered. We made him an appointment for later this month to establish with [facility] since he needs a PCP and he has a new diagnosis of diabetes. We attempted to put him on pioglitazone for the diabetes as well as to help his liver, it is not clear if his acute confusion/worsened hepatic encephalopathy was due to 1 dose of pioglitazone or not, however we we will keep him off of it. She has an appointment next month with rheumatology for his abnormal labs that were discovered during the biochemical work-up for his liver disease. Follow-up appointment with Dr. Martinez 2 weeks after EGD. Plan Details Other Medications: Discontinued: lactulose Discontinued Reason: Duplicate Order 30 grams (45 mL) PO Q1H 1 day 1,080 mL 0RF I have re-examined the patient. There are no clinical changes since date of exam.
[2021-12-02 10:01] VITALS: BP 112/63; PULSE 73; RESP 18; TEMP 37; O2SAT 100; BMI 25.1
[2021-12-02] MEDS: Lactated Ringers 1,000 ML 15 ML IV (10:10)
[2021-12-02 10:25] LABS: Bedside Glucose 109 mg/dL (74-106)
[2021-12-02 11:16] VITALS: BP 112/63; BP 118/72; PULSE 77; RESP 20; TEMP 36.4; O2SAT 97
--- NOTE | 2021-12-02 11:17 | OP.EGD_ITS ---
Patient Name: Александр Batres Procedure Date: 12/02/2021 10:52 AM Date of : 1975 Age: 46 Procedure: Upper GI endoscopy Indications: Cirrhosis with suspected esophageal varices Providers: Nate Martinez DO Medicines: Monitored Anesthesia Care Patient Profile: This is a 46 year old male. Refer to note in patient chart for documentation of history and physical. Patient has symptoms. Complications: No immediate complications. Procedure: Pre-Anesthesia Assessment: - Prior to the procedure, a History and Physical was performed, and patient medications and allergies were reviewed. The risks and benefits of the procedure and the sedation options and risks were discussed with the patient. All questions were answered and informed consent was obtained. Patient identification and proposed procedure were verified by the physician in the pre-procedure area. Mental Status Examination: alert and oriented. Airway Examination: normal oropharyngeal airway and neck mobility. Respiratory Examination: clear to auscultation. CV Examination: normal. Prophylactic Antibiotics: The patient does not require prophylactic antibiotics. Prior Anticoagulants: The patient has taken no previous anticoagulant or antiplatelet agents. ASA Grade Assessment: II - A patient with mild systemic disease. After reviewing the risks and benefits, the patient was deemed in satisfactory condition to undergo the procedure. The anesthesia plan was to use moderate sedation / analgesia (conscious sedation). Immediately prior to administration of medications, the patient was re-assessed for adequacy to receive sedatives. The heart rate, respiratory rate, oxygen saturations, blood pressure, adequacy of pulmonary ventilation, and response to care were monitored throughout the procedure. The physical status of the patient was re-assessed after the procedure. After obtaining informed consent, the endoscope was passed under direct vision. Throughout the procedure, the patient's blood pressure, pulse, and oxygen saturations were monitored continuously. The Endoscope was introduced through the mouth, and advanced to the second part of duodenum. The upper GI endoscopy was accomplished without difficulty. The patient tolerated the procedure well. Scope In: 11:05:13 AM Scope Out: 11:11:15 AM Total Procedure Duration Time 0 hours 6 minutes 2 seconds Findings: Two columns of non-bleeding grade II varices were found in the lower third of the esophagus,. They were 5 mm in largest diameter. Stigmata of recent bleeding were evident and red rossy signs were present. Stigmata of prior treatment were evident. Two bands were successfully placed with incomplete eradication of varices. There was no bleeding during the procedure. A large amount of food (residue) was found in the entire examined stomach. The duodenal bulb was normal. Impression: - Recently bleeding grade II esophageal varices. Incompletely eradicated. Banded. - A large amount of food (residue) in the stomach. - Normal duodenal bulb. - No specimens collected. Recommendation: - Discharge patient to home. - Resume previous diet. - Continue present medications. Procedure Code(s): --- Professional --- 36155, Esophagogastroduodenoscopy, flexible, transoral; with band ligation of esophageal/gastric varices CPT copyright 2017 [employer]. All rights reserved. The codes documented in this report are preliminary and upon pole maker review may be revised to meet current compliance requirements. Nate Martinez DO 12/02/2021 11:16:37 AM This report has been signed electronically. Number of Addenda: 1 Note Initiated On: 12/02/2021 10:52 AM Addendum Number: 1 Addendum Date: 04/15/2022 6:15:46 AM MAC was used as sedation for this procedure. Nate Martinez DO 04/15/2022 6:15:51 AM This report has been signed electronically.
--- NOTE | 2021-12-02 11:17 | OP.CCLET_ITS ---
04/15/2022 Ita Goddard [facility] [address] [place] [address] Re : Upper GI endoscopy procedure for Александр Batres Dear Dr. Goddard This procedure was performed on November. My impressions and recommendations are as follows: Impressions : - Recently bleeding grade II esophageal varices. Incompletely eradicated. Banded. - A large amount of food (residue) in the stomach. - Normal duodenal bulb. - No specimens collected. Recommendations : - Discharge patient to home. - Resume previous diet. - Continue present medications. My findings are described in the full procedure note, which is enclosed. If I can be of further assistance, please feel free to contact me at . Sincerely, Nate Martinez, 12/02/2021 11:16:37 AM This report has been signed electronically.
[2021-12-02 11:20] VITALS: BP 105/81; BP 112/63; PULSE 76; RESP 18; O2SAT 100
[2021-12-02 11:25] VITALS: BP 112/63; BP 115/81; PULSE 74; RESP 18; O2SAT 99
[2021-12-02 11:30] VITALS: BP 112/63; BP 118/68; PULSE 71; RESP 18; TEMP 37; O2SAT 99
[2021-12-02 12:10] VITALS: BP 112/63
== END 2021-12-02 12:12 | disposition home or self-care (01) ==
LOC: EN 09:35 → AC 09:38
PROVIDERS: PCP Internal Medicine; Referring Provider Internal Medicine; Visit Provider Internal Medicine Gastroenterology
PROC: 0DJ08ZZ Inspection of Upper Intestinal Tract, Via Natural or Artificial Opening Endoscopic (ICD-10-PCS; CPT 43235; principal; 2021-12-02 10:25)
DX: I85.11 Secondary esophageal varices with bleeding (principal); K72.90 Hepatic failure, unspecified without coma; K70.30 Alcoholic cirrhosis of liver without ascites; E11.9 Type 2 diabetes mellitus without complications; K70.10 Alcoholic hepatitis without ascites; Z87.891 Personal history of nicotine dependence; I10 Essential (primary) hypertension; Z79.899 Other long term (current) drug therapy; K21.9 Gastro-esophageal reflux disease without esophagitis; M10.9 Gout, unspecified
CPT/HCPCS: 43244; 82962; J7120; J2405

== ENCOUNTER → 2021-12-08 | Outpatient (CLI) | payer BC, SELFPAY ==
[2021-12-08 12:41] LABS: Anion Gap 6 (5-15); BUN 19 mg/dL (7-18); BUN/Creat Ratio 22.4 RATIO (10-20); Calcium,Total 8.9 mg/dL (8.5-10.1); Chloride 99 mmol/L (98-107); Creatinine, Serum 0.85 mg/dL (0.70-1.30); EST Glomerular Filtration Rate 102 mL/min (>60); Est Glom Filt Rate - Afr Amer 124 mL/min (>60); Glucose 137 mg/dL (74-106); Potassium 4.7 mmol/L (3.5-5.1); Sodium Level 133 mmol/L (136-145)
[2021-12-08 12:47] LABS: Hemoglobin A1c 4.2 % (3.8-5.6)
[2021-12-08 12:48] LABS: Insulin 118.4 mU/L (2.6-37.6)
== END | disposition home or self-care (01) ==
LOC: BIMLAB 10:28
PROVIDERS: PCP Internal Medicine; Referring Provider Internal Medicine; Visit Provider Internal Medicine
DX: E11.9 Type 2 diabetes mellitus without complications (principal)
CPT/HCPCS: 36415; 80048; 83036; 83525

== ENCOUNTER → 2021-12-24 | Outpatient (CLI) | payer BC, SELFPAY ==
[2021-12-24 10:24] LABS: Erythrocyte Sedimentation Rate 37 mm/hr (0-20)
[2021-12-24 10:25] LABS: International Normalized Ratio 1.7; Prothrombin Time (Protime)PT. 19.3 SECONDS (11.7-14.9)
[2021-12-24 10:28] LABS: Absolute Lymphocyte Count 0.87 X10^3/uL (0.83-4.51); Absolute Neutrophil Count 3.9 X10^3/uL (2.0-7.7); Basophil# 0.05 X10^3/uL; Basophil% 0.9 % (0-1); Eosinophil# 0.19 X10^3/uL; Eosinophils% 3.4 % (0-5); Hematocrit 37.4 % (40-54); Hemoglobin 13.4 g/dL (13.0-16.5); Lymphocyte # 0.87 X10^3/ul (0.83-4.51); Lymphocyte % 15.6 % (19-41); Mean Corp Hgb Conc 35.8 g/dL (32-36); Mean Corpuscular Hgb 40.4 pg (27.0-32.0); Mean Corpuscular Volume 112.7 fL (80-94); Mean Platelet Vol. 9.6 fl (6.2-12.0); Monocyte# 0.53 X10^3/uL; Monocyte% 9.5 % (0-10); NRBC Flagged by Analyzer 0 % (0-5); Neutrophil # 3.93 X10^3/uL (2.7-7.7); Neutrophil % 70.4 % (47-70); Platelet Count 105 K/mm3 (150-450); RBC Distribution Width CV 12.9 % (11.6-14.6); RBC Distribution Width SD 53.7 fl (35.1-43.9); Red Blood Count 3.32 M/mm3 (4.6-6.2); White Blood Count 5.6 K/mm3 (4.4-11.0)
[2021-12-24 10:49] LABS: ALB/GLOB Ratio 0.6 RATIO (0.9-2.4); AST(SGOT) 66 U/L (15-37); Alanine Aminotransfer ALT/SGPT 47 U/L (16-61); Albumin, Serum 2.9 g/dL (3.2-5.0); Alkaline Phosphatase 231 U/L (45-117); Anion Gap 6 (5-15); BUN 13 mg/dL (7-18); BUN/Creat Ratio 14.8 RATIO (10-20); CRP 3.33 mg/L (0.0-3.0); Calcium,Total 8.9 mg/dL (8.5-10.1); Chloride 101 mmol/L (98-107); Creatinine, Serum 0.88 mg/dL (0.70-1.30); EST Glomerular Filtration Rate 99 mL/min (>60); Est Glom Filt Rate - Afr Amer 120 mL/min (>60); Globulin 5.1 g/dL (2.2-4.2); Glucose 125 mg/dL (74-106); LDH 242 U/L (87-241); Sodium Level 134 mmol/L (136-145)
== END | disposition home or self-care (01) ==
LOC: LAB 09:17
PROVIDERS: PCP Internal Medicine; Visit Provider Internal Medicine Gastroenterology
DX: K74.60 Unspecified cirrhosis of liver (principal)
CPT/HCPCS: 36415; 80053; 82140; 83615; 85025; 85610; 85652; 86140

== ENCOUNTER → 2022-02-09 | Outpatient (CLI) | payer BC, SELFPAY ==
--- NOTE | 2022-02-09 09:03 | BD_ITS ---
STUDY: DUAL ENERGY X-RAY ABSORPTIOMETRY / DXA REASON FOR EXAM: Male, 46 years old. Z01.818 TECHNIQUE: Bone Mineral Density (BMD) measurements of lumbar spine and bilateral hips were obtained. COMPARISON: None. FINDINGS: Lumbar Spine (L1-L4): g/cm2 (0.806) / T-score (-2.6) / Z-score (-2.3) Findings are suggestive of osteoporosis with a high fracture risk. Left Femur Total: g/cm2 (0.818) / T-score (-1.4) / Z-score (-1.1) Left Femoral Neck: g/cm2 (0.64) / T-score (-2.1) / Z-score (-1.4) Right Femur Total: g/cm2 (0.927) / T-score (-0.7) / Z-score (-0.4) Right Femoral Neck: g/cm2 (0.763) / T-score (-1.2) / Z-score (-0.5) BD/Dexa Bone Density Study IMPRESSION: The patient is considered osteoporotic as outlined below according to World [employer] Organization (WHO) criteria with a high fracture risk. Reference Information: The T-score is the number of standard deviations above or below the standard which is normal for young adults at their peak bone mineral density. The World Health Organization (WHO) interprets the T-scores as follows: Above -1 Normal bone density Between -1 and -2.5 Osteopenia Equal to / or below -2.5 Osteoporosis As a practical clinical guideline, osteopenia may be graded as follows: Mild -1 through -1.5 Moderate -1.6 through -2.0 Severe -2.1 through -2.4 The Z-score is the number of standard deviations above or below age-matched controls. A Z-score of less than -1.5 would be considered abnormal. References: 1. NIH Osteoporosis and Related Bone Diseases www osteo.org 2. International Society for Clinical Densitometry www iscd.org 3. National Osteoporosis Foundation www nof.org Electronically Signed: Arthur Chow MD at 10:43 EDT ,
== END | disposition home or self-care (01) ==
PROVIDERS: PCP Internal Medicine
DX: Z01.818 Encounter for other preprocedural examination (principal); K70.30 Alcoholic cirrhosis of liver without ascites; M81.0 Age-related osteoporosis without current pathological fracture; M85.80 Other specified disorders of bone density and structure, unspecified site
CPT/HCPCS: 77080

== ENCOUNTER 2022-02-14 08:44 | Outpatient (RCR) | payer BC, SELFPAY ==
[2022-02-14 09:18] LABS: International Normalized Ratio 1.8; Prothrombin Time (Protime)PT. 20.4 SECONDS (11.7-14.9)
[2022-02-14 09:46] LABS: ALB/GLOB Ratio 0.7 RATIO (0.9-2.4); AST(SGOT) 62 U/L (15-37); Alanine Aminotransfer ALT/SGPT 47 U/L (16-61); Alkaline Phosphatase 264 U/L (45-117); Anion Gap 4 (5-15); BUN 10 mg/dL (7-18); Calcium,Total 8.7 mg/dL (8.5-10.1); Chloride 103 mmol/L (98-107); Creatinine, Serum 0.91 mg/dL (0.70-1.30); EST Glomerular Filtration Rate 95 mL/min (>60); Est Glom Filt Rate - Afr Amer 114 mL/min (>60); Globulin 4.6 g/dL (2.2-4.2); Glucose 137 mg/dL (74-106); Potassium 4.4 mmol/L (3.5-5.1); Protein, Total 7.6 g/dL (6.4-8.2); Sodium Level 135 mmol/L (136-145)
== END 2022-02-14 18:00 | disposition home or self-care (01) ==
LOC: LAB 08:44
PROVIDERS: PCP Internal Medicine; Visit Provider Internal Medicine Gastroenterology
DX: K74.60 Unspecified cirrhosis of liver (principal)
CPT/HCPCS: 36415; 80053; 85610

== ENCOUNTER 2022-03-02 10:13 | Day surgery (SDC) | payer BC, SELFPAY ==
--- NOTE | 2022-03-02 10:48 | PCM.HP.BLA ---
History and Physical Date of Admission: 03/02/22 АЛЕКСАНДР ROJO, is a 46 M who presents to the office today for Follow up visit. Александр established with this clinic 09.13.21 with alcoholic hepatitis diagnosed [place] in and subsequently quit alcohol consumption. Previously established with gerontology aide Dr. Diana Abarca for alcoholic hepatitis without ascites, with coagulopathy and jaundice. He is pursuing transplant options through [facility] as they do not require COVID vaccination. Biochemical workup diagnosed DMII with A1c 7.2; elevated ammonia 117; multiple autoimmune tests abnormal and was referred to rheumatology. RUQ US and elastography 10.08.21 liver measures 12.8cm with mild perihepatic fluid and fatty infiltration of liver. Stiffness measures 39.8 kPa F4. Liver biopsy 10.11.21 consistent with cirrhosis with distortion of normal lobular architecture into multiple nodules; reactive hepatocyte changes; chronic inflammatory cell infiltrates; focal interface inflammation noted; mild increase of iron (1+); unremarkable reticular stain; no abnormal protein accumulation. 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 MELD 24 21 03.. 26 05.16. 21 Medications currently prescribed by this clinic include neomycin, lactulose Plan last visit 10.12.21: Alcoholic hepatitis, DMII, hepatic encephalopathy ? recent confusion resolved with use of lactulose hourly, return to previous dose BID and continue neomycin. Proceed with EGD, liver biopsy and elastography. Proceed with PCP and rheumatology establishment. Sleep has improved. Does get shaking of the hands when he forgets to take Xifaxan. Denies confusion, numbness/tingling, balance issues. [facility] appointment is in two weeks. ROS Const Constitutional: No fatigue, malaise, night sweats, weight change, sleep problems, abnormal sleep pattern or change in appetite ENT ENT: No difficulty swallowing, hoarseness or sore throat Cardio Cardiology: No chest pain at rest Gastro GI: No abdominal pain, belching, bloating, change in bowel habits, change in stool character, coffee ground emesis, constipation, cramping, diarrhea, heartburn, difficulty swallowing, feeling full early, excessive flatus, incontinent of stools, Vomiting blood/hematemesis, Blood in stool, loose stools, Black,tarry stools, nausea/dyspepsia, pain with swallowing, vomiting or other Musc Musculoskeletal: No joint pain Skin Skin: No yellowing of the eye or itchy eyes Neuro Neurology: No behavioral changes Psych Psychiatric: No abnormal sleep pattern, No anxiety, No behavioral changes, No change in appetite and No depression Endo Endocrine: No fatigue or weight change Aller/Imm Allergy/Immunologic: No itchy eyes Matt/Lymp Hematologic/Lymphatic: No easy bleeding or easy bruising Exam Const General: cooperative and comfortable Nutritional Appearance: average body habitus and well nourished [facility] Head: normal to inspection Ears: hearing grossly normal bilaterally Nose: external nose normal Face and sinus: normal facial exam Mouth: oral mucosae normal Throat: posterior oropharynx normal Eyes General: appearance normal, both eyes and all related structures Neck Neck: normal visual inspection Chest Chest palpation & inspection: normal inspection of the chest and normal palpation of entire chest wall Resp Effort & Inspection: normal respiratory effort Auscultation: Bilateral: Clear to Auscultation Cardio Palpation: normal PMI Rate: regular rate Rhythm: regular rhythm GI Inspection: normal to inspection Auscultation: normal bowel sounds Percussion: normal to percussion Palpation: no hepatosplenomegaly Skin General: no rashes or lesions noted Neuro General: patient alert Extrem General: normal to inspection Psych Affect: normal affect Quality Reporting Tobacco Screening ([facility] 138) Smoking Status: Former smoker Assessment and Plan Assessment and Plan (1) Cirrhosis: ?Status:?Acute ?Plan - Dr. Sullivan Friend, DO: Patient is doing a lot better from his cirrhosis.? He has not shown any signs of decompensation at this time.? He is not have any encephalopathy, GI bleeding, nausea, jaundice or ascites.? His meld is down to 17.? His blood sugars have been under better control.? His hemoglobin A1c is down to 4.2.? I will notify of ever seeing a hemoglobin A1c that low.? He says when he checks his blood sugar at home when he is getting ranges of 150s.? That would correspond with a hemoglobin A1c that he previously had a 7.3.? I told him that he would need to discuss this with his transplant team to make sure that they know all of his medical history. (2) Alcoholic hepatitis: ?Status:?Acute ?Plan - Dr. Sullivan Friend, DO: He is off of steroids for alcoholic hepatitis.? He has not had any drinking in the last 6 months.? His bilirubin is trending down and with his meld improving has a very good sign. (3) Hepatic encephalopathy: ?Status:?Acute ?Plan - Dr. Sullivan Friend, DO: He is on Xifaxan therapy 550 mg p.o. twice daily.? We suggested that he take lactulose and has been taking it 2-3 times a day.? His who is with him at the bedside says that he is taking it. 4) he will undergo colonoscopy for screening purposes for a liver transplant evaluation I have re-examined the patient. There are no clinical changes since date of exam.
[2022-03-02 10:52] VITALS: BP 116/63; PULSE 73; RESP 16; TEMP 36.4; O2SAT 99; BMI 23.8
[2022-03-02] MEDS: Lactated Ringers 1,000 ML 15 ML IV (11:20)
[2022-03-02 11:40] VITALS: BP 116/63; BP 119/78; PULSE 68; RESP 16; TEMP 36.6; O2SAT 98
--- NOTE | 2022-03-02 11:43 | OP.COLON_ITS ---
Patient Name: Александр Batres Procedure Date: 03/02/2022 11:08 AM Date of : 1975 Age: 46 Procedure: Colonoscopy Indications: Screening for colorectal malignant neoplasm Providers: Nate Martinez DO Medicines: Monitored Anesthesia Care Patient Profile: Last Colonoscopy: none. The patient's first colonoscopy is today. Complications: No immediate complications. Procedure: Pre-Anesthesia Assessment: - Prior to the procedure, a History and Physical was performed, and patient medications and allergies were reviewed. The patient is competent. The risks and benefits of the procedure and the sedation options and risks were discussed with the patient. All questions were answered and informed consent was obtained. Patient identification and proposed procedure were verified by the physician in the pre-procedure area. Mental Status Examination: alert and oriented. Airway Examination: normal oropharyngeal airway and neck mobility. Respiratory Examination: clear to auscultation. CV Examination: normal. Prophylactic Antibiotics: The patient does not require prophylactic antibiotics. Prior Anticoagulants: The patient has taken no previous anticoagulant or antiplatelet agents. ASA Grade Assessment: II - A patient with mild systemic disease. After reviewing the risks and benefits, the patient was deemed in satisfactory condition to undergo the procedure. The anesthesia plan was to use moderate sedation / analgesia (conscious sedation). Immediately prior to administration of medications, the patient was re-assessed for adequacy to receive sedatives. The heart rate, respiratory rate, oxygen saturations, blood pressure, adequacy of pulmonary ventilation, and response to care were monitored throughout the procedure. The physical status of the patient was re-assessed after the procedure. After I obtained informed consent, the scope was passed under direct vision. Throughout the procedure, the patient's blood pressure, pulse, and oxygen saturations were monitored continuously. The colonoscope was introduced through the anus with the intention of advancing to the cecum. The scope was advanced to the splenic flexure before the procedure was aborted. Medications were given. The colonoscopy was performed without difficulty. The patient tolerated the procedure well. The quality of the bowel preparation was inadequate. Scope In: 11:33:24 AM Scope Out: 11:34:55 AM Total Procedure Duration Time 0 hours 1 minute 31 seconds Findings: The perianal and digital rectal examinations were normal. A 8 mm polyp was found in the rectum. The polyp was sessile. Copious quantities of semi-liquid semi-solid solid stool was found at the anus, in the rectum, in the recto-sigmoid colon, in the sigmoid colon, in the descending colon and at the splenic flexure, precluding visualization. Impression: - Preparation of the colon was inadequate. - One 8 mm polyp in the rectum. - Stool at the anus, in the rectum, in the recto-sigmoid colon, in the sigmoid colon, in the descending colon and at the splenic flexure. - No specimens collected. Recommendation: - Discharge patient to home. - Resume previous diet. - Continue present medications. - Repeat colonoscopy because the bowel preparation was poor. Procedure Code(s): --- Professional --- 37503, 53, Colonoscopy, flexible; diagnostic, including collection of specimen(s) by brushing or washing, when performed (separate procedure) CPT copyright 2017 [employer]. All rights reserved. The codes documented in this report are preliminary and upon computer trainer review may be revised to meet current compliance requirements. Nate Martinez DO 03/02/2022 11:43:00 AM This report has been signed electronically. Number of Addenda: 1 Note Initiated On: 03/02/2022 11:08 AM Addendum Number: 1 Addendum Date: 04/21/2022 6:15:23 AM MAC was used as sedation for this procedure. Nate Martinez DO 04/21/2022 6:15:27 AM This report has been signed electronically.
[2022-03-02 11:45] VITALS: BP 116/63; BP 126/71; PULSE 69; RESP 16; O2SAT 98
--- NOTE | 2022-03-02 11:45 | OP.CCLET_ITS ---
04/21/2022 Ita Goddard [facility] [address] [place] [address] Re : Colonoscopy procedure for Александр Batres Dear Dr. Goddard This procedure was performed on Wednesday, March 02, 2022. My impressions and recommendations are as follows: Impressions : - Preparation of the colon was inadequate. - One 8 mm polyp in the rectum. - Stool at the anus, in the rectum, in the recto-sigmoid colon, in the sigmoid colon, in the descending colon and at the splenic flexure. - No specimens collected. Recommendations : - Discharge patient to home. - Resume previous diet. - Continue present medications. - Repeat colonoscopy because the bowel preparation was poor. My findings are described in the full procedure note, which is enclosed. If I can be of further assistance, please feel free to contact me at . Sincerely, Nate Martinez, 03/02/2022 11:43:00 AM This report has been signed electronically.
[2022-03-02 11:50] VITALS: BP 116/63; BP 118/72; PULSE 67; RESP 16; O2SAT 100
[2022-03-02 11:55] VITALS: BP 116/63; BP 119/73; PULSE 61; RESP 16; TEMP 36.6; O2SAT 99
[2022-03-02 12:35] VITALS: BP 116/63
== END 2022-03-02 13:26 | disposition home or self-care (01) ==
LOC: EN 10:17 → AC 10:17
PROVIDERS: PCP Internal Medicine; Referring Provider Internal Medicine; Visit Provider Internal Medicine Gastroenterology
PROC: 0DJD8ZZ Inspection of Lower Intestinal Tract, Via Natural or Artificial Opening Endoscopic (ICD-10-PCS; CPT 45378; principal; 2022-03-02 11:10)
DX: Z12.11 Encounter for screening for malignant neoplasm of colon (principal); K72.90 Hepatic failure, unspecified without coma; K74.60 Unspecified cirrhosis of liver; E11.9 Type 2 diabetes mellitus without complications; K70.10 Alcoholic hepatitis without ascites; K62.1 Rectal polyp; Z87.891 Personal history of nicotine dependence; K76.0 Fatty (change of) liver, not elsewhere classified; K21.9 Gastro-esophageal reflux disease without esophagitis; M10.9 Gout, unspecified; Z79.899 Other long term (current) drug therapy
CPT/HCPCS: 45378; J7120; J2405

== ENCOUNTER 2022-03-03 07:45 | Day surgery (SDC) | payer BC, SELFPAY ==
[2022-03-03] VITALS (7 sets, daily range): BP systolic 108–115; BP diastolic 64–77; PULSE 60–72; RESP 14–18; TEMP 36.4–36.9; O2SAT 97–100; BMI 23.4
[2022-03-03] MEDS: Lactated Ringers 1,000 ML 15 ML IV (08:20)
--- NOTE | 2022-03-03 08:44 | HP.PCM_ITS ---
History and Physical Date of Admission: 03/03/22 АЛЕКСАНДР ROJO, is a 46 M who presents to the office today for Follow up visit. Александр established with this clinic 09.13.21 with alcoholic hepatitis diagnosed [place] in and subsequently quit alcohol consumption. Previously established with tar heater Dr. Diana Abarca for alcoholic hepatitis without ascites, with coagulopathy and jaundice. He is pursuing transplant options through [facility] as they do not require COVID vaccination. Biochemical workup diagnosed DMII with A1c 7.2; elevated ammonia 117; multiple autoimmune tests abnormal and was referred to rheumatology. RUQ US and elastography 10.08.21 liver measures 12.8cm with mild perihepatic fluid and fatty infiltration of liver. Stiffness measures 39.8 kPa F4. Liver biopsy 10.11.21 consistent with cirrhosis with distortion of normal lobular architecture into multiple nodules; reactive hepatocyte changes; chronic inflammatory cell infiltrates; focal interface inflammation noted; mild increase of iron (1+); unremarkable reticular stain; no abnormal protein accumulation. 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 MELD 24 21 03.. 26 05.16. 21 Medications currently prescribed by this clinic include neomycin, lactulose Plan last visit 10.12.21: Alcoholic hepatitis, DMII, hepatic encephalopathy ? recent confusion resolved with use of lactulose hourly, return to previous dose BID and continue neomycin. Proceed with EGD, liver biopsy and elastography. Proceed with PCP and rheumatology establishment. Sleep has improved. Does get shaking of the hands when he forgets to take Xifaxan. Denies confusion, numbness/tingling, balance issues. [facility] appointment is in two weeks. ROS Const Constitutional: No fatigue, malaise, night sweats, weight change, sleep problems, abnormal sleep pattern or change in appetite ENT ENT: No difficulty swallowing, hoarseness or sore throat Cardio Cardiology: No chest pain at rest Gastro GI: No abdominal pain, belching, bloating, change in bowel habits, change in stool character, coffee ground emesis, constipation, cramping, diarrhea, heartburn, difficulty swallowing, feeling full early, excessive flatus, incontinent of stools, Vomiting blood/hematemesis, Blood in stool, loose stools, Black,tarry stools, nausea/dyspepsia, pain with swallowing, vomiting or other Musc Musculoskeletal: No joint pain Skin Skin: No yellowing of the eye or itchy eyes Neuro Neurology: No behavioral changes Psych Psychiatric: No abnormal sleep pattern, No anxiety, No behavioral changes, No change in appetite and No depression Endo Endocrine: No fatigue or weight change Aller/Imm Allergy/Immunologic: No itchy eyes Matt/Lymp Hematologic/Lymphatic: No easy bleeding or easy bruising Exam Const General: cooperative and comfortable Nutritional Appearance: average body habitus and well nourished [facility] Head: normal to inspection Ears: hearing grossly normal bilaterally Nose: external nose normal Face and sinus: normal facial exam Mouth: oral mucosae normal Throat: posterior oropharynx normal Eyes General: appearance normal, both eyes and all related structures Neck Neck: normal visual inspection Chest Chest palpation & inspection: normal inspection of the chest and normal palpation of entire chest wall Resp Effort & Inspection: normal respiratory effort Auscultation: Bilateral: Clear to Auscultation Cardio Palpation: normal PMI Rate: regular rate Rhythm: regular rhythm GI Inspection: normal to inspection Auscultation: normal bowel sounds Percussion: normal to percussion Palpation: no hepatosplenomegaly Skin General: no rashes or lesions noted Neuro General: patient alert Extrem General: normal to inspection Psych Affect: normal affect Quality Reporting Tobacco Screening ([facility]) Smoking Status: Former smoker Assessment and Plan Assessment and Plan (1) Cirrhosis: ?Status:?Acute ?Plan - Dr. Sullivan Friend, DO: Patient is doing a lot better from his cirrhosis.? He has not shown any signs of decompensation at this time.? He is not have any encephalopathy, GI bleeding, nausea, jaundice or ascites.? His meld is down to 17.? His blood sugars have been under better control.? His hemoglobin A1c is down to 4.2.? I will notify of ever seeing a hemoglobin A1c that low.? He says when he checks his blood sugar at home when he is getting ranges of 150s.? That would correspond with a hemoglobin A1c that he previously had a 7.3.? I told him that he would need to discuss this with his transplant team to make sure that they know all of his medical history. (2) Alcoholic hepatitis: ?Status:?Acute ?Plan - Dr. Sullivan Friend, DO: He is off of steroids for alcoholic hepatitis.? He has not had any drinking in the last 6 months.? His bilirubin is trending down and with his meld improving has a very good sign. (3) Hepatic encephalopathy: ?Status:?Acute ?Plan - Dr. Sullivan Friend, DO: He is on Xifaxan therapy 550 mg p.o. twice daily.? We suggested that he take lactulose and has been taking it 2-3 times a day.? His who is with him at the bedside says that he is taking it. I have re-examined the patient. There are no clinical changes since date of exam.
[2022-03-03 08:45] LABS: Bedside Glucose 85 mg/dL (74-106)
--- NOTE | 2022-03-03 08:45 | COLBX_PTH ---
PATIENT: ALEX ROJO LOC: EN U#:[id number] AGE/SX: 46/M ROOM: RE03/03/[address]: Dr. Nate Martinez DO : 1975 BED: DIS: 03/03/2022 SPEC #: [id number] RECD: 03/03/22 10:26 STATUS: BRANDON REReal #: [id number] VIKTOR: 03/03/22 08:[address]: Nate Martinez DEPT: SURGICAL PATHOLOGY RECD BY: Gisell Holt ENTERED: 03/03/22 12:11 SP TYPE: COLON BX ROSE DR: Dr. Ita Goddard MD Tissues: A - COLON BIOPSY B - Sigmoid colon biopsy Procedures: Surgery Specimen Level IV HEADER OPERATION: Colonoscopy (MAC) PRE-OP DIAGNOSIS: Cirrhosis, alcoholic hepatitis, hepatic encephalopathy TISSUE SUBMITTED: A. Splenic flexure polyp, B. Sigmoid polyp MICROSCOPIC DIAGNOSIS A. Splenic flexure polyp, biopsy: Benign colonic mucosa. B. Sigmoid polyp, biopsy: Fragments of hyperplastic polyp. AM: genia 03/04/2022 MICROSCOPIC DESCRIPTION Slides are reviewed. GROSS DESCRIPTION A. Received is one container labeled with the patient name and designated splenic flexure. The specimen consists of one irregular fragment of light santiago soft tissue that measures 0.3 x 0.3 x 0.1 cm. The specimen is totally submitted in one cassette. B. Received is one container labeled with the patient name and designated sigmoid. The specimen consists of two irregular fragments of light santiago soft tissue mixed with fecal material that in aggregate measure 0.6 x 0.3 x 0.1 cm. The specimen is totally submitted in one cassette. /SJ:brianna 03/03/22 TC5: CPT:63456g5
--- NOTE | 2022-03-03 09:30 | OP.COLON_ITS ---
Patient Name: Александр Batres Procedure Date: 03/03/2022 8:52 AM Date of : 1975 Age: 46 Procedure: Colonoscopy Indications: Screening for colorectal malignant neoplasm Providers: Nate Martinez DO Medicines: Monitored Anesthesia Care Patient Profile: This is a 46 year old male. Refer to note in patient chart for documentation of history and physical. Last Colonoscopy: none. The patient's first colonoscopy is today. Complications: No immediate complications. Procedure: Pre-Anesthesia Assessment: - Prior to the procedure, a History and Physical was performed, and patient medications and allergies were reviewed. The risks and benefits of the procedure and the sedation options and risks were discussed with the patient. All questions were answered and informed consent was obtained. Patient identification and proposed procedure were verified by the physician in the pre-procedure area. Mental Status Examination: alert and oriented. Airway Examination: normal oropharyngeal airway and neck mobility. Respiratory Examination: clear to auscultation. CV Examination: normal. Prophylactic Antibiotics: The patient does not require prophylactic antibiotics. Prior Anticoagulants: The patient has taken no previous anticoagulant or antiplatelet agents. ASA Grade Assessment: II - A patient with mild systemic disease. After reviewing the risks and benefits, the patient was deemed in satisfactory condition to undergo the procedure. The anesthesia plan was to use moderate sedation / analgesia (conscious sedation). Immediately prior to administration of medications, the patient was re-assessed for adequacy to receive sedatives. The heart rate, respiratory rate, oxygen saturations, blood pressure, adequacy of pulmonary ventilation, and response to care were monitored throughout the procedure. The physical status of the patient was re-assessed after the procedure. After I obtained informed consent, the scope was passed under direct vision. Throughout the procedure, the patient's blood pressure, pulse, and oxygen saturations were monitored continuously. The colonoscope was introduced through the anus and advanced to the terminal ileum. The entire colon was examined. Scope In: 8:58:42 AM Scope Withdrawal Time 0 hours 14 minutes 21 seconds Scope Out: 9:23:18 AM Total Procedure Duration Time 0 hours 24 minutes 36 seconds Findings: The perianal and digital rectal examinations were normal. A few small and large-mouthed diverticula were found in the recto-sigmoid colon and sigmoid colon. Two sessile polyps were found in the sigmoid colon and transverse colon. The polyps were 1 to 2 mm in size. These polyps were removed with a hot snare. Resection and retrieval were complete. Verification of patient identification for the specimen was done. Estimated blood loss was minimal. The exam was otherwise without abnormality on direct and retroflexion views. Impression: - Diverticulosis in the recto-sigmoid colon and in the sigmoid colon. - Two 1 to 2 mm polyps in the sigmoid colon and in the transverse colon, removed with a hot snare. Resected and retrieved. - The examination was otherwise normal on direct and retroflexion views. Recommendation: - Discharge patient to home. - Resume previous diet. - Continue present medications. - Await pathology results. - Repeat colonoscopy in 5 years for surveillance. Procedure Code(s): --- Professional --- 76729, Colonoscopy, flexible; with removal of tumor(s), polyp(s), or other lesion(s) by snare technique CPT copyright 2017 [employer]. All rights reserved. The codes documented in this report are preliminary and upon manager gaming review may be revised to meet current compliance requirements. Nate Martinez DO 03/03/2022 9:29:55 AM This report has been signed electronically. Number of Addenda: 1 Note Initiated On: 03/03/2022 8:52 AM Addendum Number: 1 Addendum Date: 04/21/2022 6:13:25 AM MAC was used as sedation for this procedure. Nate Martinez DO 04/21/2022 6:13:29 AM This report has been signed electronically.
--- NOTE | 2022-03-03 09:31 | OP.CCLET_ITS ---
04/21/2022 Ita Goddard [facility] [address] [place] [address] Re : Colonoscopy procedure for Александр Batres Dear Dr. Goddard This procedure was performed on February. My impressions and recommendations are as follows: Impressions : - Diverticulosis in the recto-sigmoid colon and in the sigmoid colon. - Two 1 to 2 mm polyps in the sigmoid colon and in the transverse colon, removed with a hot snare. Resected and retrieved. - The examination was otherwise normal on direct and retroflexion views. Recommendations : - Discharge patient to home. - Resume previous diet. - Continue present medications. - Await pathology results. - Repeat colonoscopy in 5 years for surveillance. My findings are described in the full procedure note, which is enclosed. If I can be of further assistance, please feel free to contact me at . Sincerely, Nate Martinez, 03/03/2022 9:29:55 AM This report has been signed electronically.
== END 2022-03-03 10:02 | disposition home or self-care (01) ==
LOC: EN 07:45 → AC 07:47
PROVIDERS: PCP Internal Medicine; Referring Provider Internal Medicine; Visit Provider Internal Medicine Gastroenterology
PROC: 0DJD8ZZ Inspection of Lower Intestinal Tract, Via Natural or Artificial Opening Endoscopic (ICD-10-PCS; CPT 45378; principal; 2022-03-03 08:40)
DX: Z12.11 Encounter for screening for malignant neoplasm of colon (principal); K72.90 Hepatic failure, unspecified without coma; K74.60 Unspecified cirrhosis of liver; Z90.49 Acquired absence of other specified parts of digestive tract; K63.5 Polyp of colon; K70.10 Alcoholic hepatitis without ascites; K57.30 Diverticulosis of large intestine without perforation or abscess without bleeding; Z87.891 Personal history of nicotine dependence
CPT/HCPCS: 45385; 82962; 88305; J7120; J2405

== ENCOUNTER → 2022-03-04 | Outpatient (CLI) | payer BC, SELFPAY ==
[2022-03-04 11:07] LABS: Absolute Lymphocyte Count 1.08 X10^3/uL (0.83-4.51); Absolute Neutrophil Count 3.5 X10^3/uL (2.0-7.7); Basophil# 0.04 X10^3/uL; Basophil% 0.7 % (0-1); Eosinophil# 0.16 X10^3/uL; Hematocrit 35.2 % (40-54); Hemoglobin 12.9 g/dL (13.0-16.5); Lymphocyte # 1.08 X10^3/ul (0.83-4.51); Lymphocyte % 20.1 % (19-41); Mean Corp Hgb Conc 36.6 g/dL (32-36); Mean Corpuscular Hgb 39.4 pg (27.0-32.0); Mean Corpuscular Volume 107.6 fL (80-94); Mean Platelet Vol. 10.4 fl (6.2-12.0); Monocyte% 11.2 % (0-10); NRBC Flagged by Analyzer 0 % (0-5); Neutrophil # 3.48 X10^3/uL (2.7-7.7); Neutrophil % 64.6 % (47-70); POSITIVE COUNT YES; Platelet Count 93 K/mm3 (150-450); RBC Distribution Width CV 14.2 % (11.6-14.6); RBC Distribution Width SD 55.9 fl (35.1-43.9); Red Blood Count 3.27 M/mm3 (4.6-6.2); White Blood Count 5.4 K/mm3 (4.4-11.0)
[2022-03-04 11:11] LABS: Differential Indicated SCAN CRITERIA MET
[2022-03-04 11:14] LABS: International Normalized Ratio 1.8; Prothrombin Time (Protime)PT. 20.4 SECONDS (11.7-14.9)
[2022-03-04 11:39] LABS: Platelet Estimate MOD DEC (ADEQ)
[2022-03-04 11:46] LABS: ALB/GLOB Ratio 0.6 RATIO (0.9-2.4); AST(SGOT) 87 U/L (15-37); Alanine Aminotransfer ALT/SGPT 61 U/L (16-61); Albumin, Serum 2.8 g/dL (3.2-5.0); Alkaline Phosphatase 204 U/L (45-117); Anion Gap 6 (5-15); BUN 11 mg/dL (7-18); BUN/Creat Ratio 11.1 RATIO (10-20); Calcium,Total 8.5 mg/dL (8.5-10.1); Chloride 99 mmol/L (98-107); EST Glomerular Filtration Rate 85 mL/min (>60); Est Glom Filt Rate - Afr Amer 103 mL/min (>60); Globulin 4.8 g/dL (2.2-4.2); Glucose 94 mg/dL (74-106); Protein, Total 7.6 g/dL (6.4-8.2); Sodium Level 135 mmol/L (136-145)
== END | disposition home or self-care (01) ==
LOC: LAB.FUTURE 08:26 → LAB 08:27
PROVIDERS: PCP Internal Medicine
DX: Z01.818 Encounter for other preprocedural examination (principal)
CPT/HCPCS: 36415; 80053; 85025; 85610

== ENCOUNTER 2022-03-22 12:49 | Outpatient (RCR) | payer BC, SELFPAY ==
[2022-03-22 12:36] LABS: International Normalized Ratio 1.8; Prothrombin Time (Protime)PT. 20.5 SECONDS (11.7-14.9)
[2022-03-22 12:44] LABS: ALB/GLOB Ratio 0.6 RATIO (0.9-2.4); AST(SGOT) 67 U/L (15-37); Alanine Aminotransfer ALT/SGPT 47 U/L (16-61); Albumin, Serum 3.1 g/dL (3.2-5.0); Alkaline Phosphatase 209 U/L (45-117); Anion Gap 7 (5-15); BUN 10 mg/dL (7-18); BUN/Creat Ratio 9.2 RATIO (10-20); Calcium,Total 9.4 mg/dL (8.5-10.1); Chloride 100 mmol/L (98-107); Creatinine, Serum 1.09 mg/dL (0.70-1.30); EST Glomerular Filtration Rate 77 mL/min (>60); Est Glom Filt Rate - Afr Amer 93 mL/min (>60); Globulin 4.8 g/dL (2.2-4.2); Glucose 121 mg/dL (74-106); Potassium 4.2 mmol/L (3.5-5.1); Protein, Total 7.9 g/dL (6.4-8.2); Sodium Level 135 mmol/L (136-145)
== END 2022-03-22 18:00 | disposition home or self-care (01) ==
LOC: LAB 12:49
PROVIDERS: PCP Internal Medicine; Referring Provider Internal Medicine Gastroenterology; Visit Provider Internal Medicine Gastroenterology
DX: K74.60 Unspecified cirrhosis of liver (principal); Z01.810 Encounter for preprocedural cardiovascular examination
CPT/HCPCS: 36415; 80053; 85610

== ENCOUNTER 2022-04-21 08:40 | Outpatient (RCR) | payer BC, SELFPAY ==
[2022-04-21 09:44] LABS: International Normalized Ratio 1.8; Prothrombin Time (Protime)PT. 20.6 SECONDS (11.7-14.9)
[2022-04-21 09:54] LABS: ALB/GLOB Ratio 0.6 RATIO (0.9-2.4); AST(SGOT) 61 U/L (15-37); Alanine Aminotransfer ALT/SGPT 40 U/L (16-61); Alkaline Phosphatase 225 U/L (45-117); Anion Gap 7 (5-15); BUN 16 mg/dL (7-18); BUN/Creat Ratio 14.7 RATIO (10-20); Calcium,Total 8.9 mg/dL (8.5-10.1); Chloride 101 mmol/L (98-107); Creatinine, Serum 1.09 mg/dL (0.70-1.30); EST Glomerular Filtration Rate 77 mL/min (>60); Est Glom Filt Rate - Afr Amer 93 mL/min (>60); Globulin 5.3 g/dL (2.2-4.2); Glucose 120 mg/dL (74-106); Potassium 4.4 mmol/L (3.5-5.1); Protein, Total 8.3 g/dL (6.4-8.2); Sodium Level 135 mmol/L (136-145)
== END 2022-04-21 18:00 | disposition home or self-care (01) ==
LOC: LAB 08:40
PROVIDERS: PCP Internal Medicine; Referring Provider Internal Medicine Gastroenterology; Visit Provider Internal Medicine Gastroenterology
DX: Z01.810 Encounter for preprocedural cardiovascular examination (principal); K74.60 Unspecified cirrhosis of liver
CPT/HCPCS: 36415; 80053; 85610

== ENCOUNTER 2022-05-14 11:36 | Emergency (ER) | payer BC, SELFPAY ==
[2022-05-14 11:40] VITALS: BP 122/78; PULSE 117; RESP 16; TEMP 36.4; O2SAT 99; BMI 23.6
--- NOTE | 2022-05-14 12:00 | CT_ITS ---
EXAM: CT HEAD WITHOUT INTRAVENOUS CONTRAST CLINICAL INDICATION: altered mental status TECHNIQUE: Multiple axial images were obtained of the head without intravenous contrast. This CT exam was performed using one or more of the following dose reduction techniques: automated exposure control, adjustment of the mA and/or kV according to patient size, and/or use of iterative reconstruction technique. This report was created using [employer] report generation technology. COMPARISON: None. FINDINGS: BRAIN AND EXTRA-AXIAL SPACES: Normal. No intra- or extra-axial hemorrhage. No evidence of acute infarct. No intracranial mass or mass effect. There is preservation of the eagle/white matter interface. Posterior fossa structures are unremarkable. Ventricles are appropriate for age. No hydrocephalus. Basal cisterns are patent. BONES/JOINTS: Normal. No discrete lytic or blastic abnormalities. SINUSES: Unremarkable as visualized. No acute sinusitis. MASTOID AIR CELLS: Normal. Clear. ORBITS: Visualized globes, extraocular muscles, optic nerves and retrobulbar fat appear unremarkable. CT/Brain/Head without Contrast IMPRESSION: Normal CT brain without intravenous contrast. Electronically Signed: Conner Wisdom MD at 13:39 EDT ,
--- NOTE | 2022-05-14 12:01 | EKG12_ITS ---
Test Reason : ABD PAIN Blood Pressure : / mmHG Vent. Rate : 091 BPM Atrial Rate : 091 BPM P-R Int : 156 ms QRS Dur : 090 ms QT Int : 386 ms P-R-T Axes : 049 007 020 degrees QTc Int : 474 ms Normal sinus rhythm Poor R wave progression Confirmed by GAY HORNE, JENY ([id number]), brands editor BIPIN HERNANDEZ ([id number]) on 05/16/2022 9:18:20 AM Referred By: Confirmed By:JENY RASHID MD
[2022-05-14 12:15] LABS: Absolute Lymphocyte Count 0.35 X10^3/uL (0.83-4.51); Absolute Neutrophil Count 5.7 X10^3/uL (2.0-7.7); Basophil# 0.03 X10^3/uL; Basophil% 0.5 % (0-1); Hematocrit 33.4 % (40-54); Hemoglobin 12.3 g/dL (13.0-16.5); Lymphocyte # 0.35 X10^3/ul (0.83-4.51); Lymphocyte % 5.4 % (19-41); Mean Corp Hgb Conc 36.8 g/dL (32-36); Mean Corpuscular Hgb 42.1 pg (27.0-32.0); Mean Corpuscular Volume 114.4 fL (80-94); Mean Platelet Vol. 9.6 fl (6.2-12.0); Monocyte# 0.36 X10^3/uL; Monocyte% 5.6 % (0-10); NRBC Flagged by Analyzer 0 % (0-5); Neutrophil # 5.67 X10^3/uL (2.7-7.7); POSITIVE DIFFERENTIAL YES; Platelet Count 100 K/mm3 (150-450); RBC Distribution Width CV 14.6 % (11.6-14.6); RBC Distribution Width SD 61.7 fl (35.1-43.9); Red Blood Count 2.92 M/mm3 (4.6-6.2); White Blood Count 6.4 K/mm3 (4.4-11.0)
[2022-05-14 12:17] LABS: Differential Indicated SCAN CRITERIA MET
[2022-05-14] MEDS: 0.9% Normal Saline 1,000 ML 250 ML IV (12:18)
[2022-05-14] MEDS: Ondansetron 4 MG/2 ML Vial IV ×2 (12:19→14:56)
[2022-05-14 12:25] VITALS: BP 141/75; PULSE 94
[2022-05-14 12:25] LABS: International Normalized Ratio 1.7
[2022-05-14 12:26] LABS: Partial Thromboplast Time 38.6 Seconds (24.1-36.2)
[2022-05-14 12:39] LABS: ALB/GLOB Ratio 0.7 RATIO (0.9-2.4); AST(SGOT) 63 U/L (15-37); Alanine Aminotransfer ALT/SGPT 35 U/L (16-61); Albumin, Serum 3.5 g/dL (3.2-5.0); Alkaline Phosphatase 246 U/L (45-117); Anion Gap 11 (5-15); BUN 18 mg/dL (7-18); Calcium,Total 9.2 mg/dL (8.5-10.1); Chloride 105 mmol/L (98-107); Creatinine, Serum 1.63 mg/dL (0.70-1.30); EST Glomerular Filtration Rate 48 mL/min (>60); Est Glom Filt Rate - Afr Amer 58 mL/min (>60); Estimated Creatinine Clearance 55.42 ml/min; Glucose 204 mg/dL (74-106); Protein, Total 8.5 g/dL (6.4-8.2); Sodium Level 141 mmol/L (136-145); Troponin-I HS 10 pg/mL (3.0-78.0)
[2022-05-14 13:09] LABS: Alcohol, Blood (Medical)-Serum < 3.0 mg/dL
--- NOTE | 2022-05-14 13:22 | EX.ED.DYSGE1 ---
HPI History of Present Illness Chief Complaint: Abd Pain Informant: patient Onset/Context/Timing Onset: Today Context: - (Awoke this way 3 or 4 hours prior to arrival) Timing: Continuous Quality: Confused and agitated Location: All over Current Severity: Severe Maximum Severity: Severe Worsened by: Nothing Relieved by: Nothing despite several doses of lactulose Associated Symptoms Associated Symptoms: Vomiting Narrative Narrative: Patient has history of cirrhosis, family states unsure if it is due to alcohol, which he never really abused, or hemochromatosis, but he is on a transplant list and does not drink. He has a history of hepatic encephalopathy, family states he is acting the same way since he woke up this morning. He gets lactulose 4 times daily and is compliant with it because family make sure of it, they have given him several doses this morning because of this, he has not had a bowel movement at all this morning and other than vomiting, he has had no other symptoms nor improvement after the lactulose so family brought him in. They are having trouble keeping him from running around in a confused state which is also why they were concerned about keeping him at home and waiting. [facility] Medical History (Updated 05/14/22 @ 15:[address] Tao Velasquez MD) Alcoholic hepatitis Carrier of hemochromatosis HFE gene mutation Cirrhosis Diabetes mellitus type 2 in nonobese Dietary restriction Former smoker Gastric reflux Gout Hepatic encephalopathy History of edema History of panic attacks History of stress test HTN (hypertension) Hx of gout Liver damage Seasonal allergies Home Medications cyanocobalamin (vitamin B-12) 1,000 mcg capsule 1,000 mcg PO DAILY 09/13/21 [History Last Taken Unknown] cholecalciferol (vitamin D3) 25 mcg (1,000 unit) capsule 25 mcg PO DAILY 10/14/21 [History Last Taken Unknown] furosemide 40 mg tablet 40 mg PO DAILY 10/14/21 [History Last Taken Unknown] Cbd Gummies 1 gummy PO/SL DAILY 11/30/21 [History Last Taken Unknown] rifaximin 550 mg tablet (Xifaxan) 550 mg PO BID #60 tabs 12/06/21 [Rx Last Taken Unknown] trazodone 50 mg tablet 50 mg PO QHS PRN sleep #20 tabs 12/15/21 [Rx Last Taken Unknown] neomycin 500 mg tablet 500 mg PO BID hepatic encephalopathy #180 tabs 02/03/22 [Rx Last Taken Unknown] lactobacillus combo no.6 4 billion cell tablet 60 cell PO DAILY 02/28/22 [History Last Taken Unknown] ondansetron 4 mg disintegrating tablet 4 mg PO PRN PRN Nausea 02/28/22 [History Last Taken Unknown] scopolamine base 1 mg over 3 days transdermal patch 1 patch transdermal Q3D #10 ea 03/14/22 [Rx Last Taken Unknown] lactulose 20 gram/30 mL oral solution 20 g (30 mL) PO .QID #1,200 mL 03/22/22 [Rx Last Taken Unknown] pantoprazole 40 mg tablet,delayed release See Rx Instructions .Route .COMPLEX #30 tabs 04/04/22 [Rx Last Taken Unknown] folic acid 1 mg tablet 1 mg PO DAILY #90 tabs 05/02/22 [Rx Last Taken Unknown] spironolactone 50 mg tablet 50 mg PO DAILY #90 tabs 05/04/22 [Rx Last Taken Unknown] metronidazole 375 mg capsule (Flagyl) 375 mg PO TID #90 caps 05/17/22 [Rx Last Taken Unknown] Allergy/AdvReac Type Severity Reaction Status Date / Time pioglitazone Allergy Mild liver Verified 05/14/22 11:43 damange Family History Other CVA (cerebral vascular accident) Cancer Heart disease Hypertension Thyroid disorder Surgical History History of esophagogastroduodenoscopy (EGD) History of surgery 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 Status: Former smoker alcohol intake: former substance use type: does not use what type of physical activity do you participate in: other frequency: 1-2 times per week ROS ROS ED Review of Systems ROS Unobtainable: due to mental status Gastrointestinal Gastrointestinal: Reports nausea and vomiting Neurologic Neurologic: Reports as per HPI, behavior changes and confusion EXAM Physical Exam Const Vital Signs: 05/14/22 11:40 05/14/22 12:25 05/14/22 15:08 Temperature 97.5 F L Temperature Source Temporal Pulse Rate 117 H 94 83 Respiratory Rate 16 17 Blood Pressure 122/78 H 141/75 H 109/63 Blood Pressure Mean 92 97 78 Pulse Ox 99 100 Oxygen Delivery Method Room Air Room Air Positive well nourished and well developed General Appearance ED: well developed and NAD HEENT Reports moist mucous membranes normocephalic and atraumatic Eyes PERRL and EOMs intact bilaterally Neck full ROM and supple Resp normal respiratory effort and clear to auscultation bilaterally Cardio regular rate, regular rhythm and no murmurs GI non-tender and non-distended Auscultation: normoactive bowel sounds Palpation: soft Back/Spine no CVA tenderness General Back: other FROM Extremity normal to inspection General Extremety ED: Negative for edema, pulses abnormal or tenderness General Extremity: Negative for edema or pulses abnormal Neuro CN's II-XII intact bilaterally and no sensory deficits noted Neuro Narrative: Patient is disoriented and confused. He has trouble following commands. He is agitated and actively trying to get out of bed with family and staff physically keeping him from doing this. Moving all 4 extremities equally. He can speak without aphasia when he states he needs to vomit. Sensorium / Orientation: awake and alert Motor Exam: strength 5/5 throughout Psych Attitude: agitated Mood & Affect: anxious Skin no rashes or lesions noted and no wounds MDM MDM MDM Narrative Medical decision making narrative: Work-up rules out other causes of acute encephalopathy, in this patient with an ammonia level that is now 105 it most likely is hepatic encephalopathy. He received 4 doses of lactulose this morning prior to coming here without effect, 30 mL every 30 minutes according to significant other. He was nauseated so we gave him fluids and Zofran followed by lactulose here, he had some dry heaves afterwards, we gave him more Zofran he did keep down the lactulose and has only had 1 very small bowel movement since he was here. He is still very disoriented. is concerned about taking him home because he is so confused that she is afraid he will do something dangerous when she is asleep tonight. He has been here for almost 5 hours without change, I ordered a lactulose enema. However, prior to nursing giving this, he had a good bowel movement so we skipped the enema, the patient then had yet another bowel movement. States he is feeling a little better, he is less agitated but still confused. Another dose of oral lactulose 30 cc is ordered and will be given by nursing. I discussed with the significant other, she states things seem to be going in the right direction and he is definitely improving but not back to normal, I offered admission several times, she would like to see how things go here for a little longer prior to making a decision as she would like to take him home if it is safe. Checked out to oncoming emergency physician for final disposition and reevaluation. Lab Data Attestation: I reviewed the patient's lab results. Labs: Laboratory Results - last 24 hr 05/14/22 05/14/22 05/14/22 11:58 11:58 11:58 WBC 6.4 RBC 2.92 L Hgb 12.3 L Hct 33.4 L MCV 114.4 H MCH 42.1 H MCHC 36.8 H RDW Std Deviation 61.7 H RDW Coeff of Kaela 14.6 Plt Count 100 L MPV 9.6 Immature Gran % (Auto) 0.500 Neut % (Auto) 88.0 H Lymph % (Auto) 5.4 L [place] % (Auto) 5.6 Eos % (Auto) 0.0 Baso % (Auto) 0.5 Absolute Neuts (auto) 5.7 Absolute Lymphs (auto) 0.35 L Nucleated RBC % 0 PT 20.0 H INR 1.7 APTT 38.6 H Sodium 141 Potassium 4.0 Chloride 105 Carbon Dioxide 25.0 Anion Gap 11 BUN 18 Creatinine 1.63 H Estim Creat Clear Calc 55.42 Est GFR (MDRD) Af Amer 58 L Est GFR (MDRD) Non-Af 48 L BUN/Creatinine Ratio 11.0 Glucose 204 H Calcium 9.2 Total Bilirubin 4.90 H AST 63 H ALT 35 Alkaline Phosphatase 246 H Ammonia Troponin I High Sens 10 Total Protein 8.5 H Albumin 3.5 Globulin 5.0 H Albumin/Globulin Ratio 0.7 L Urine Color Urine Clarity Urine pH Ur Specific Hardin Urine Protein Urine Glucose (UA) Urine Ketones Urine Occult Blood Urine Nitrite Urine Bilirubin Urine Urobilinogen Ur Leukocyte Esterase Urine RBC Urine WBC Ur Squamous Epith Cells Amorphous Sediment Urine Bacteria Urine Mucus Ethyl Alcohol 05/14/22 05/14/22 05/14/22 11:58 11:58 14:15 WBC RBC Hgb Hct MCV MCH MCHC RDW Std Deviation RDW Coeff of Kaela Plt Count MPV Immature Gran % (Auto) Neut % (Auto) Lymph % (Auto) [place] % (Auto) Eos % (Auto) Baso % (Auto) Absolute Neuts (auto) Absolute Lymphs (auto) Nucleated RBC % PT INR APTT Sodium Potassium Chloride Carbon Dioxide Anion Gap BUN Creatinine Estim Creat Clear Calc Est GFR (MDRD) Af Amer Est GFR (MDRD) Non-Af BUN/Creatinine Ratio Glucose Calcium Total Bilirubin AST ALT Alkaline Phosphatase Ammonia 105.0 H Troponin I High Sens Total Protein Albumin Globulin Albumin/Globulin Ratio Urine Color Yellow Urine Clarity Sl. Cloudy Urine pH 7.0 Ur Specific [place] 1.015 Urine Protein 15 H Urine Glucose (UA) Normal Urine Ketones 5 H Urine Occult Blood Negative Urine Nitrite Positive H Urine Bilirubin 1 H Urine Urobilinogen 4 H Ur Leukocyte Esterase 100 H Urine RBC 0 SEEN Urine WBC 0 SEEN Ur Squamous Epith Cells 0 SEEN Amorphous Sediment 1+ Urine Bacteria 0 SEEN Urine Mucus 0 SEEN Ethyl Alcohol < 3.0 Radiography Diagnostic Testing: Clinical Impression(s) from Imaging Studies Brain CT 05/14/22 12:00 IMPRESSION: Normal CT brain without intravenous contrast. Electronically Signed: Conner Wisdom MD at 13:39 EDT , Rhythm Strip Rhythm Strip: Sinus Rhythm Rate: 90 Ectopy: None EKG Initial EKG: Attestation: I personally reviewed and interpreted this EKG as follows: Interpretation: Sinus Rhythm and No Acute Injury Pattern Discharge Plan Triage Chief Complaint: Abd Pain ED Provider: Tao Velasquez Dx/Rx/DC Orders Clinical Impression: Hepatic encephalopathy, Cirrhosis, Agitation Instructions: Hepatic Encephalopathy, ED Cirrhosis Prescriptions: No Action cyanocobalamin (vitamin B-12) 1,000 mcg capsule 1,000 mcg PO DAILY furosemide 40 mg tablet 40 mg PO DAILY cholecalciferol (vitamin D3) 25 mcg (1,000 unit) capsule 25 mcg PO DAILY Cbd Gummies 1 gummy PO/SL DAILY ondansetron 4 mg tablet,disintegrating 4 mg PO PRN PRN (Reason: Nausea) Probiotic Complex 4 billion cell Tablet 60 cell PO DAILY Xifaxan 550 mg tablet 550 mg PO BID Qty: 60 5RF trazodone 50 mg tablet 50 mg PO QHS PRN (Reason: sleep) Qty: 20 1RF neomycin 500 mg tablet 500 mg PO BID Qty: 180 0RF scopolamine base 1 mg over 3 days patch 3 day 1 patch transdermal Q3D Qty: 10 2RF lactulose 20 gram/30 mL solution 20 g PO .QID Qty: 1200 5RF pantoprazole 40 mg tablet,delayed release (DR/EC) See Rx Instructions .ROUTE .COMPLEX Qty: 30 0RF Dose Instruction: take 1 tablet by mouth once daily Rx Instructions: take 1 tablet by mouth once daily folic acid 1 mg tablet 1 mg PO DAILY Qty: 90 3RF spironolactone 50 mg tablet 50 mg PO DAILY Qty: 90 3RF metronidazole [Flagyl] 375 mg capsule 375 mg PO TID Qty: 90 11RF Primary Care Provider: Ita Goddard Referrals: Ita Goddard MD [Primary Care Provider] - As soon as possible Disposition Disposition: Home, Self Care Discharge Date/Time: 05/14/22 19:06
--- NOTE | 2022-05-14 13:46 | ED.RN ---
Pt. restless in bed, continues to request to ambulate to restroom but with 's presence never actually urinates or has bowel movement.
[2022-05-14 14:19] LABS: Bacteria 0 SEEN /hpf (None Seen); Mucous, Urine 0 SEEN /hpf (<or=2+); Red Blood Cells-Urine 0 SEEN /hpf (0-5); Squamous Epithelial Cells - UA 0 SEEN /hpf (0-5); White Blood Cells 0 SEEN /hpf (0-5)
[2022-05-14 14:31] LABS: Color, Urine Yellow (Yellow); Glucose, Dipstick Normal (Normal); Ketone-Dipstick 5 mg/dl (Negative); Leukocyte Esterase-Dipstick 100 /ul (Negative); Nitrite-Dipstick Positive (Negative); Occult Blood-Urine Negative /ul (Negative); Protein-Dipstick 15 mg/dl (Negative); Specific Gravity, Urine 1.015 (1.002-1.030); Urine Clarity Sl. Cloudy (Clear); Urine Urobilinogen 4 mg/dl (Normal)
[2022-05-14] MEDS: Lactulose 20 GM/30 ML UDC PO (14:41)
[2022-05-14 14:48] LABS: Urine Bilirubin Dipstick 1 mg/dL (Negative)
[2022-05-14 14:49] LABS: Amorphous Sediment 1+
[2022-05-14 15:08] VITALS: BP 109/63; PULSE 83; RESP 17; O2SAT 100
[2022-05-14] MEDS: Lactulose 20 GM/30 ML UDC 30 GM PO (16:44)
[2022-05-14 18:37] VITALS: BP 120/63; PULSE 83; RESP 18; O2SAT 100
[2022-05-14 19:04] VITALS: BP 129/77; PULSE 74; RESP 16; O2SAT 98
== END 2022-05-14 19:06 | disposition home or self-care (01) ==
PROVIDERS: Emergency Provider Emergency Medicine; PCP Internal Medicine; Visit Provider Emergency Medicine
DX: K74.60 Unspecified cirrhosis of liver (principal); E11.9 Type 2 diabetes mellitus without complications; I10 Essential (primary) hypertension; R11.10 Vomiting, unspecified; K76.82 Hepatic encephalopathy; R41.0 Disorientation, unspecified; R45.1 Restlessness and agitation; Z87.891 Personal history of nicotine dependence
CPT/HCPCS: 70450; 80053; 81001; 82077; 82140; 84484; 85025; 85610; 85730; 93005; 96361; 96374; 96376; 99285; J7030; A4216; J2405

== ENCOUNTER 2022-05-23 11:45 | Outpatient (RCR) | payer BC, SELFPAY ==
[2022-05-20 09:51] LABS: International Normalized Ratio 1.8; Prothrombin Time (Protime)PT. 20.1 SECONDS (11.7-14.9)
[2022-05-23 12:49] LABS: ALB/GLOB Ratio 0.6 RATIO (0.9-2.4); AST(SGOT) 49 U/L (15-37); Alanine Aminotransfer ALT/SGPT 26 U/L (16-61); Albumin, Serum 2.9 g/dL (3.2-5.0); Alkaline Phosphatase 224 U/L (45-117); Anion Gap 7 (5-15); BUN 12 mg/dL (7-18); BUN/Creat Ratio 10.5 RATIO (10-20); Calcium,Total 8.8 mg/dL (8.5-10.1); Chloride 96 mmol/L (98-107); Creatinine, Serum 1.14 mg/dL (0.70-1.30); EST Glomerular Filtration Rate 73 mL/min (>60); Est Glom Filt Rate - Afr Amer 88 mL/min (>60); Globulin 4.6 g/dL (2.2-4.2); Glucose 213 mg/dL (74-106); Potassium 4.3 mmol/L (3.5-5.1); Protein, Total 7.5 g/dL (6.4-8.2); Sodium Level 132 mmol/L (136-145)
== END 2022-06-15 18:00 | disposition home or self-care (01) ==
LOC: LAB 11:45
PROVIDERS: PCP Internal Medicine; Referring Provider Internal Medicine Gastroenterology; Visit Provider Internal Medicine Gastroenterology
DX: K74.60 Unspecified cirrhosis of liver
CPT/HCPCS: 36415; 80053; 85610

== ENCOUNTER → 2022-06-14 | Outpatient (CLI) | payer BC, SELFPAY ==
[2022-06-14 13:33] LABS: Absolute Lymphocyte Count 0.78 X10^3/uL (0.83-4.51); Absolute Neutrophil Count 6.5 X10^3/uL (2.0-7.7); Basophil# 0.05 X10^3/uL; Basophil% 0.6 % (0-1); Eosinophil# 0.08 X10^3/uL; Hematocrit 37.6 % (40-54); Hemoglobin 13.9 g/dL (13.0-16.5); Lymphocyte # 0.78 X10^3/ul (0.83-4.51); Lymphocyte % 9.7 % (19-41); Mean Corpuscular Hgb 41.1 pg (27.0-32.0); Mean Corpuscular Volume 111.2 fL (80-94); Mean Platelet Vol. 9.6 fl (6.2-12.0); Monocyte# 0.65 X10^3/uL; Monocyte% 8.1 % (0-10); NRBC Flagged by Analyzer 0 % (0-5); Neutrophil # 6.45 X10^3/uL (2.7-7.7); Neutrophil % 80.5 % (47-70); Platelet Count 143 K/mm3 (150-450); RBC Distribution Width CV 13.5 % (11.6-14.6); RBC Distribution Width SD 55.8 fl (35.1-43.9); Red Blood Count 3.38 M/mm3 (4.6-6.2)
[2022-06-14 14:00] LABS: Ammonia < 10.0 umol/L (11-32)
[2022-06-14 14:06] LABS: ALB/GLOB Ratio 0.6 RATIO (0.9-2.4); AST(SGOT) 86 U/L (15-37); Alanine Aminotransfer ALT/SGPT 47 U/L (16-61); Albumin, Serum 3.2 g/dL (3.2-5.0); Alkaline Phosphatase 176 U/L (45-117); Anion Gap 7 (5-15); BUN 11 mg/dL (7-18); BUN/Creat Ratio 6.9 RATIO (10-20); Calcium,Total 9.1 mg/dL (8.5-10.1); Chloride 93 mmol/L (98-107); Creatinine, Serum 1.59 mg/dL (0.70-1.30); EST Glomerular Filtration Rate 50 mL/min (>60); Est Glom Filt Rate - Afr Amer 60 mL/min (>60); Glucose 183 mg/dL (74-106); Potassium 4.1 mmol/L (3.5-5.1); Protein, Total 8.2 g/dL (6.4-8.2); Sodium Level 131 mmol/L (136-145)
== END | disposition home or self-care (01) ==
PROVIDERS: PCP Internal Medicine; Referring Provider Internal Medicine Gastroenterology; Visit Provider Internal Medicine Gastroenterology
DX: K74.60 Unspecified cirrhosis of liver (principal)
CPT/HCPCS: 36415; 80053; 82140; 85025

== ENCOUNTER 2022-06-16 03:07 | Emergency (ER) | payer BC, SELFPAY ==
[2022-06-16 03:08] VITALS: BP 136/77; PULSE 92; RESP 15; TEMP 36.5; O2SAT 98; BMI 24.0
--- NOTE | 2022-06-16 03:28 | EX.ED.DYSGE1 ---
HPI History of Present Illness Chief Complaint: Confusion Informant: patient and spouse/S.O. Narrative Narrative: Presents with transient confusion. History of alcoholic cirrhosis trend and currently on the transplant list at [facility]. He is on rifaximin and lactulose additional Flagyl. Since yesterday decreased bowel movements only had one yesterday. Today has taken couple extra dose of lactulose. Reports prior to arrival he walked into the living room had his face in front of his significant other and scared her. States he was talking gibberish initially, he took an extra lactulose and was brought here for evaluation. Denies recent cough. Denies urinary symptoms. He is on CBD along with delta 8. Currently symptoms are improved. Prior similar symptoms: Yes PFSH PFSH Medical History Alcoholic hepatitis Carrier of hemochromatosis HFE gene mutation Cirrhosis Diabetes mellitus type 2 in nonobese Dietary restriction Former smoker Gastric reflux Gout Hepatic encephalopathy History of edema History of panic attacks History of stress test HTN (hypertension) Hx of gout Liver damage Seasonal allergies Home Medications cyanocobalamin (vitamin B-12) 1,000 mcg capsule 1,000 mcg PO DAILY 09/13/21 [History Last Taken Unknown] cholecalciferol (vitamin D3) 25 mcg (1,000 unit) capsule 25 mcg PO DAILY 10/14/21 [History Last Taken Unknown] Cbd Gummies 1 gummy PO/SL DAILY 11/30/21 [History Last Taken Unknown] trazodone 50 mg tablet 50 mg PO QHS PRN sleep #20 tabs 12/15/21 [Rx Last Taken Unknown] scopolamine base 1 mg over 3 days transdermal patch 1 patch transdermal Q3D #10 ea 03/14/22 [Rx Last Taken Unknown] pantoprazole 40 mg tablet,delayed release See Rx Instructions .Route .COMPLEX #30 tabs 04/04/22 [Rx Last Taken Unknown] folic acid 1 mg tablet 1 mg PO DAILY #90 tabs 05/02/22 [Rx Last Taken Unknown] spironolactone 50 mg tablet 50 mg PO DAILY #90 tabs 05/04/22 [Rx Last Taken Unknown] metronidazole 375 mg capsule (Flagyl) 375 mg PO TID #90 caps 05/17/22 [Rx Last Taken Unknown] lactulose 20 gram/30 mL oral solution See Rx Instructions .Route .COMPLEX #1,200 mL 05/24/22 [Rx Last Taken Unknown] furosemide 40 mg tablet See Rx Instructions .Route .COMPLEX #30 TABLETS 05/27/22 [Rx Last Taken Unknown] rifaximin 550 mg tablet (Xifaxan) See Rx Instructions .Route .COMPLEX #60 tabs 05/30/22 [Rx Last Taken Unknown] sertraline 50 mg tablet 50 mg PO HS #30 tabs 06/03/22 [Rx Last Taken Unknown] ondansetron 4 mg disintegrating tablet See Rx Instructions .Route .COMPLEX #90 TABLETS 06/07/22 [Rx Last Taken Unknown] prochlorperazine 25 mg rectal suppository (Compazine) 25 mg [place] BID PRN nausea and vomiting #14 supp 06/13/22 [Rx Last Taken Unknown] Allergy/AdvReac Type Severity Reaction Status Date / Time pioglitazone Allergy Mild liver Verified 06/16/22 03:08 damange Family History Other CVA (cerebral vascular accident) Cancer Heart disease Hypertension Thyroid disorder Surgical History History of esophagogastroduodenoscopy (EGD) History of surgery 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 Status: Former smoker alcohol intake: former substance use type: does not use what type of physical activity do you participate in: other frequency: 1-2 times per week ROS ROS ED Constitutional Constitutional ED: Denies chills, fever(s) or sweats Eyes Eyes: Denies change in vision ENT ENT ED: Denies dysphagia or sore throat Cardiovascular Cardiovascular: Denies chest pain, leg edema, palpitations or racing heartbeat Respiratory/Chest Respiratory/Chest: Denies cough, dyspnea or dyspnea on exertion Gastrointestinal Gastrointestinal: Denies abdominal pain, diarrhea, nausea or vomiting Genitourinary Genitourinary ED: Denies dysuria, hematuria or urinary frequency Musculoskeletal Musculoskeletal: Denies back pain, extremity pain or neck pain Integumentary Denies rash or wounds Neurologic Neurologic: Denies headache(s), paresthesias or weakness EXAM Physical Exam Const Vital Signs: 06/16/22 03:08 Temperature 97.7 F L Temperature Source Temporal Pulse Rate 92 Respiratory Rate 15 Blood Pressure 136/77 H Blood Pressure Mean 96 Pulse Ox 98 Oxygen Delivery Method Room Air Positive well nourished and well developed General Appearance ED: well developed and NAD HEENT Reports dry mucous membranes HEENT Narrative: Mild dry mucosal membranes. normocephalic and atraumatic Mouth ED: Yes dry mucous membranes Mouth: dry mucous membranes Eyes PERRL, EOMs intact bilaterally and conjunctivae normal General Eye ED: Yes normal appearance of both eyes Neck no lymphadenopathy and supple General: Negative for tenderness Chest Wall Chest: Negative for tenderness Resp normal respiratory effort and normal air movement Effort and Inspection: symmetric chest movement; Negative for respiratory distress Cardio regular rate, regular rhythm and no murmurs Peripheral Pulses: pulses 2+ throughout GI normal to inspection, nondistended, normoactive bowel sounds and non-tender Palpation: Negative for guarding or rebound tenderness present Back/Spine no CVA tenderness and no thoracic nor lumbar tenderness Extremity normal to inspection General Extremety ED: Negative for edema or tenderness General Extremity: Negative for edema Neuro oriented x3, CN's II-XII intact bilaterally and no sensory deficits noted Sensorium / Orientation: awake and alert Skin no rashes or lesions noted and no wounds Skin Narrative: Mild jaundice throughout MDM MDM MDM Narrative Medical decision making narrative: Patient currently oriented x3. Vital signs stable. Mild jaundice on exam. This is chronic. History of alcoholic cirrhosis. I did check labs ammonia level at 12. Stable sodium 131 stable creatinine at 1.63 total bilirubin is 3.9 down from 5 range previously. Hemoglobin 12.3. Glucose is 156. Discussed findings with patient and significant other. Continue to use his lactulose and his medications and monitoring for continued bowel movements. Return precaution discussed. All questions were answered. Lab Data Attestation: I reviewed the patient's lab results. Labs: Laboratory Results - last 24 hr 06/16/22 06/16/22 06/16/22 03:20 03:20 03:20 WBC 7.5 RBC 3.14 L Hgb 12.3 L Hct 35.3 L MCV 112.4 H MCH 39.2 H MCHC 34.8 D RDW Std Deviation 55.8 H RDW Coeff of Kaela 13.5 Plt Count 121 L MPV 10.0 Immature Gran % (Auto) 0.400 Neut % (Auto) 67.3 Lymph % (Auto) 19.3 [place] % (Auto) 9.5 Eos % (Auto) 2.8 Baso % (Auto) 0.7 Absolute Neuts (auto) 5.1 Absolute Lymphs (auto) 1.45 Nucleated RBC % 0 Sodium 131 L Potassium 3.8 Chloride 92 L Carbon Dioxide 30.0 Anion Gap 9 BUN 11 Creatinine 1.63 H Estim Creat Clear Calc 55.42 Est GFR (MDRD) Af Amer 58 L Est GFR (MDRD) Non-Af 48 L BUN/Creatinine Ratio 6.7 L Glucose 156 H Calcium 8.5 Total Bilirubin 3.90 H AST 92 H ALT 49 Alkaline Phosphatase 199 H Ammonia 12.0 Total Protein 7.5 Albumin 3.0 L Globulin 4.5 H Albumin/Globulin Ratio 0.7 L Discharge Plan Triage Chief Complaint: Confusion ED Provider: Ian Carmona Dx/Rx/DC Orders Clinical Impression: Transient confusion, Diabetes mellitus type 2 in nonobese, Cirrhosis, CKD (chronic kidney disease), Chronic hyponatremia Instructions: Cirrhosis of Liver Dc, ED Confusion Prescriptions: No Action cyanocobalamin (vitamin B-12) 1,000 mcg capsule 1,000 mcg PO DAILY cholecalciferol (vitamin D3) 25 mcg (1,000 unit) capsule 25 mcg PO DAILY sertraline 50 mg tablet 50 mg PO HS Qty: 30 2RF Cbd Gummies 1 gummy PO/SL DAILY trazodone 50 mg tablet 50 mg PO QHS PRN (Reason: sleep) Qty: 20 1RF scopolamine base 1 mg over 3 days patch 3 day 1 patch transdermal Q3D Qty: 10 2RF pantoprazole 40 mg tablet,delayed release (DR/EC) See Rx Instructions .ROUTE .COMPLEX Qty: 30 0RF Dose Instruction: take 1 tablet by mouth once daily Rx Instructions: take 1 tablet by mouth once daily folic acid 1 mg tablet 1 mg PO DAILY Qty: 90 3RF spironolactone 50 mg tablet 50 mg PO DAILY Qty: 90 3RF metronidazole [Flagyl] 375 mg capsule 375 mg PO TID Qty: 90 11RF lactulose 20 gram/30 mL solution See Rx Instructions .ROUTE .COMPLEX Qty: 1200 11RF Dose Instruction: take 30 milliliter by mouth four times a day Rx Instructions: take 30 milliliter by mouth four times a day furosemide 40 mg tablet See Rx Instructions .ROUTE .COMPLEX Qty: 30 11RF Dose Instruction: take 1 tablet by mouth once daily Rx Instructions: take 1 tablet by mouth once daily Xifaxan 550 mg tablet See Rx Instructions .ROUTE .COMPLEX Qty: 60 11RF Dose Instruction: take 1 tablet by mouth twice a day Rx Instructions: take 1 tablet by mouth twice a day ondansetron 4 mg tablet,disintegrating See Rx Instructions .ROUTE .COMPLEX Qty: 90 2RF Dose Instruction: dissolve 1 tablet ON TONGUE every 6 hours if needed for nausea OR vomiting Rx Instructions: dissolve 1 tablet ON TONGUE every 6 hours if needed for nausea OR vomiting prochlorperazine [Compazine] 25 mg suppository 25 mg [place] BID PRN (Reason: nausea and vomiting) Qty: 14 1RF Primary Care Provider: Iat Goddard Referrals: Ita Goddard MD [Primary Care Provider] - 1 Week Friend,DO Nate [Med Staff - Active Staff] - 1-2 Weeks Activity Restrictions/Additional Instructions: Ammonia level of 12. Labs otherwise stable with sodium 131 creatinine 1.6, glucose 150s. Total bilirubin 3.9. Continue lactulose rifaximin mean and your Flagyl. Increase lactulose to have 2-3 bowel movements a day. Follow-up with your doctors. Return if any worsening symptoms. Disposition Disposition: Home, Self Care Discharge Date/Time: 06/16/22 04:34
[2022-06-16 03:39] LABS: Absolute Lymphocyte Count 1.45 X10^3/uL (0.83-4.51); Absolute Neutrophil Count 5.1 X10^3/uL (2.0-7.7); Basophil# 0.05 X10^3/uL; Basophil% 0.7 % (0-1); Eosinophil# 0.21 X10^3/uL; Eosinophils% 2.8 % (0-5); Hematocrit 35.3 % (40-54); Hemoglobin 12.3 g/dL (13.0-16.5); Lymphocyte # 1.45 X10^3/ul (0.83-4.51); Lymphocyte % 19.3 % (19-41); Mean Corp Hgb Conc 34.8 g/dL (32-36); Mean Corpuscular Hgb 39.2 pg (27.0-32.0); Mean Corpuscular Volume 112.4 fL (80-94); Monocyte# 0.71 X10^3/uL; Monocyte% 9.5 % (0-10); NRBC Flagged by Analyzer 0 % (0-5); Neutrophil # 5.06 X10^3/uL (2.7-7.7); Neutrophil % 67.3 % (47-70); Platelet Count 121 K/mm3 (150-450); RBC Distribution Width CV 13.5 % (11.6-14.6); RBC Distribution Width SD 55.8 fl (35.1-43.9); Red Blood Count 3.14 M/mm3 (4.6-6.2); White Blood Count 7.5 K/mm3 (4.4-11.0)
[2022-06-16 03:53] LABS: ALB/GLOB Ratio 0.7 RATIO (0.9-2.4); AST(SGOT) 92 U/L (15-37); Alanine Aminotransfer ALT/SGPT 49 U/L (16-61); Alkaline Phosphatase 199 U/L (45-117); Anion Gap 9 (5-15); BUN 11 mg/dL (7-18); BUN/Creat Ratio 6.7 RATIO (10-20); Calcium,Total 8.5 mg/dL (8.5-10.1); Chloride 92 mmol/L (98-107); Creatinine, Serum 1.63 mg/dL (0.70-1.30); EST Glomerular Filtration Rate 48 mL/min (>60); Est Glom Filt Rate - Afr Amer 58 mL/min (>60); Estimated Creatinine Clearance 55.42 ml/min; Globulin 4.5 g/dL (2.2-4.2); Glucose 156 mg/dL (74-106); Potassium 3.8 mmol/L (3.5-5.1); Protein, Total 7.5 g/dL (6.4-8.2); Sodium Level 131 mmol/L (136-145)
== END 2022-06-16 04:34 | disposition home or self-care (01) ==
PROVIDERS: Emergency Provider Emergency Medicine; PCP Internal Medicine; Visit Provider Emergency Medicine
DX: R41.0 Disorientation, unspecified (principal); K74.60 Unspecified cirrhosis of liver; E11.22 Type 2 diabetes mellitus with diabetic chronic kidney disease; E87.1 Hypo-osmolality and hyponatremia; N18.9 Chronic kidney disease, unspecified; I12.9 Hypertensive chronic kidney disease with stage 1 through stage 4 chronic kidney disease, or unspecified chronic kidney disease; Z87.891 Personal history of nicotine dependence
CPT/HCPCS: 80053; 82140; 85025; 96360; 99283; J7030

== ENCOUNTER 2022-06-16 21:40 | Emergency (ER) | payer BC, SELFPAY ==
[2022-06-16 21:41] VITALS: BP 134/79; PULSE 81; RESP 15; TEMP 36.4; O2SAT 98; BMI 23.9
--- NOTE | 2022-06-16 22:06 | EX.ED.DYSGE1 ---
HPI History of Present Illness Chief Complaint: Confusion Narrative Narrative: 47-year-old male here with confusion. History of cirrhosis on lactulose and rifaximin, alcohol hepatitis, type 2 diabetes. Patient is accompanied by his . They state patient is more confused last several days. Denies any head trauma. Denies any fever or cough. Notes he is been agitated notes compliance with lactulose however no improvement. Notes he was here yesterday and was discharged with instructions to continue take lactulose. They are concerned given lack of improvement. Old chart reviewed: Seen yesterday for similar symptoms discharged with instructions to take additional lactulose [facility] Medical History Alcoholic hepatitis Carrier of hemochromatosis HFE gene mutation Cirrhosis Diabetes mellitus type 2 in nonobese Dietary restriction Former smoker Gastric reflux Gout Hepatic encephalopathy History of edema History of panic attacks History of stress test HTN (hypertension) Hx of gout Liver damage Seasonal allergies Home Medications cyanocobalamin (vitamin B-12) 1,000 mcg capsule 1,000 mcg PO DAILY 09/13/21 [History Last Taken Unknown] cholecalciferol (vitamin D3) 25 mcg (1,000 unit) capsule 25 mcg PO DAILY 10/14/21 [History Last Taken Unknown] Cbd Gummies 1 gummy PO/SL DAILY 11/30/21 [History Last Taken Unknown] trazodone 50 mg tablet 50 mg PO QHS PRN sleep #20 tabs 12/15/21 [Rx Last Taken Unknown] scopolamine base 1 mg over 3 days transdermal patch 1 patch transdermal Q3D #10 ea 03/14/22 [Rx Last Taken Unknown] pantoprazole 40 mg tablet,delayed release See Rx Instructions .Route .COMPLEX #30 tabs 04/04/22 [Rx Last Taken Unknown] folic acid 1 mg tablet 1 mg PO DAILY #90 tabs 05/02/22 [Rx Last Taken Unknown] spironolactone 50 mg tablet 50 mg PO DAILY #90 tabs 05/04/22 [Rx Last Taken Unknown] metronidazole 375 mg capsule (Flagyl) 375 mg PO TID #90 caps 05/17/22 [Rx Last Taken Unknown] lactulose 20 gram/30 mL oral solution See Rx Instructions .Route .COMPLEX #1,200 mL 05/24/22 [Rx Last Taken Unknown] furosemide 40 mg tablet See Rx Instructions .Route .COMPLEX #30 TABLETS 05/27/22 [Rx Last Taken Unknown] rifaximin 550 mg tablet (Xifaxan) See Rx Instructions .Route .COMPLEX #60 tabs 05/30/22 [Rx Last Taken Unknown] sertraline 50 mg tablet 50 mg PO HS #30 tabs 06/03/22 [Rx Last Taken Unknown] ondansetron 4 mg disintegrating tablet See Rx Instructions .Route .COMPLEX #90 TABLETS 06/07/22 [Rx Last Taken Unknown] prochlorperazine 25 mg rectal suppository (Compazine) 25 mg SD BID PRN nausea and vomiting #14 supp 06/13/22 [Rx Last Taken Unknown] Allergy/AdvReac Type Severity Reaction Status Date / Time pioglitazone Allergy Mild liver Verified 06/16/22 21:41 damange Family History Other CVA (cerebral vascular accident) Cancer Heart disease Hypertension Thyroid disorder Surgical History History of esophagogastroduodenoscopy (EGD) History of surgery 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 Status: Former smoker alcohol intake: former substance use type: does not use what type of physical activity do you participate in: other frequency: 1-2 times per week ROS ROS ED ROS Narrative Constitutional: Denies fever HEENT: Denies sore throat Neck: Denies neck pain Cardiovascular: Denies chest pain, syncope Respiratory: Denies shortness of breath GI: Denies nausea vomiting or abdominal pain : Denies changes in urinary habits Musculoskeletal: Denies muscle or joint pain Neurologic: Denies numbness weakness or loss of sensation, endorses confusion Skin denies rash EXAM Physical Exam Narrative Exam Narrative: Nursing triage notes reviewed, Vital signs reviewed Constitutional: please see mdm HENT: MMM Eyes: Pupils equal round and reactive to light, Extraocular muscles intact Neck: No stridor, no JVD, full neck ROM Lungs: Clear to auscultation, No wheezing or rales. No increased work of breathing, no conversational dyspnea, no accessory muscle use, no nasal flaring. No respiratory distress noted Heart: Regular rate and rhythm, No murmurs, No rubs and No gallops, 2+ distal pulses (radial, femoral, posterior tibial) in all extremities Abdomen: Soft, there is no tenderness, rigidity, rebound or guarding, no obvious peritoneal signs, no palpable pulsatile abdominal masses, no auscultated abdominal bruit : No CVAT Extremities: No edema Neuro: Alert and oriented x3, neuro exam at baseline, cranial nerves II through XII are intact. No pain with extraocular muscle movement. There is negative test of skew. Normal speech. 5 of 5 strength in upper and lower extremities in flexion extension. Intact sensation to light touch in upper and lower extremity dermatomes. No truncal or extremity ataxia. No dysdiadochokinesia. Normal gait. 2+ reflexes. No meningeal signs. Negative Babinski. NIH of 0 Skin: Patient appears jaundiced Const Vital Signs: 06/16/22 21:41 06/17/22 01:40 Temperature 97.6 F L Temperature Source Temporal Pulse Rate 81 88 Respiratory Rate 15 18 Blood Pressure 134/79 H 134/74 H Blood Pressure Mean 97 94 Pulse Ox 98 99 Oxygen Delivery Method Room Air Room Air MDM MDM MDM Narrative Medical decision making narrative: 47-year-old male here with confusion in the setting of alcoholic liver cirrhosis, packed cephalopathy, type 2 diabetes on lactulose. Seen yesterday for similar patient was hemodynamically stable, afebrile he is nontoxic-appearing. He did appear jaundiced which is chronic per patient . He had no focal neurologic deficits he is alert and orient x3. He was not confused to my exam he was alert and orient x3. Today I added on additional imaging including CT scan head rule out any intracranial abnormalities also obtain labs to ascertain the patient any decompensated liver disease. Gave lactulose empirically. Labs without evidence of decompensated liver function. No evidence of systemic inflammation, coagulopathy, severe anemia, pancreatitis. CT scan of the head was unremarkable. No evidence of infectious etiologies in the chest. Lab Data Attestation: I reviewed the patient's lab results. Lab results narrative: CBC without leukocytosis, worsening anemia from prior study, thrombocytopenia noted similar to prior study INR remained stable, PTT slightly prolonged, PT essentially the same as baseline BMP with hyponatremia similar to prior, no significant Judi normalities, improved CKD LFTs with stable hyperbilirubinemia improved from prior studies, stable liver function Lipase is wnl indicating no pancreatic inflammation. Ammonia slightly uptrending however still within normal limits Urine drug screen positive for THC Labs: Laboratory Results - last 24 hr 06/16/22 06/16/22 06/16/22 22:33 22:33 22:33 PT 21.3 H INR 1.9 APTT 41.6 H Sodium 133 L Potassium 3.9 Chloride 98 Carbon Dioxide 28.0 Anion Gap 7 BUN 9 Creatinine 1.33 H Estim Creat Clear Calc 67.92 Est GFR (MDRD) Af Amer 74 Est GFR (MDRD) Non-Af 61 BUN/Creatinine Ratio 6.8 L Glucose 123 H Calcium 8.8 Total Bilirubin 3.90 H Direct Bilirubin 2.29 H AST 89 H ALT 47 Alkaline Phosphatase 209 H Ammonia Troponin I High Sens 8 Total Protein 7.3 Albumin 3.0 L Globulin 4.3 H Lipase 275 Urine Opiates Screen Urine Methadone Screen Ur Barbiturates Screen Ur Phencyclidine Scrn Ur Amphetamines Screen MDMA (Ecstasy) Screen U Benzodiazepines Scrn Urine Cocaine Screen U Cannabinoids Screen Ur Drug Screen Comment Ethyl Alcohol < 3.0 06/16/22 06/17/22 23:07 00:05 PT INR APTT Sodium Potassium Chloride Carbon Dioxide Anion Gap BUN Creatinine Estim Creat Clear Calc Est GFR (MDRD) Af Amer Est GFR (MDRD) Non-Af BUN/Creatinine Ratio Glucose Calcium Total Bilirubin Direct Bilirubin AST ALT Alkaline Phosphatase Ammonia 31.0 Troponin I High Sens Total Protein Albumin Globulin Lipase Urine Opiates Screen NEGATIVE Urine Methadone Screen NEGATIVE Ur Barbiturates Screen NEGATIVE Ur Phencyclidine Scrn NEGATIVE Ur Amphetamines Screen NEGATIVE MDMA (Ecstasy) Screen NEGATIVE U Benzodiazepines Scrn NEGATIVE Urine Cocaine Screen NEGATIVE U Cannabinoids Screen POSITIVE H Ur Drug Screen Comment Ethyl Alcohol Radiography Chest X-Ray - ED: Read by ED Physician Diagnostic Testing: Clinical Impression(s) from Imaging Studies Brain CT 06/16/22 22:34 IMPRESSION: undefined Chest X-Ray 06/16/22 22:35 IMPRESSION: No acute pulmonary disease. Multiple air-fluid levels without gross small bowel dilatation. Query enteritis. If there is concern for small bowel obstruction, abdominal series or CT is recommended. Electronically Signed: Julio Schulte MD at 23:51 EST , I have personally reviewed the patient's chest x-ray. Chest x-ray is unremarkable for pulmonary edema, pneumothorax, pneumonia or focal cardiopulmonary abnormality. EKG Initial EKG: Attestation: I personally reviewed and interpreted this EKG as follows: Comments: EKG with normal sinus rhythm, normal axis, normal intervals, no STEMI Treatment and Re-Evaluation Narrative: Patient was reassessed to maintain dynamically stable, afebrile, nontoxic-appearing he remained alert and orient x3. I did discuss hospitalization versus discharge. I suggest patient be discharged as there is no life or limb threat etiologies could be treated he would not benefit from hospitalization. Patient agreed. Shared decision making: I had a long discussion with the patient and or visitors regarding risk/benefits of further testing or admission. They decided to forego any further testing or admission. They are aware of of the risk/benefits inherent in this decision and have voiced understanding. Discharge Plan Triage Chief Complaint: Confusion ED Provider: Clinton Miller Dx/Rx/DC Orders Clinical Impression: Cirrhosis, Hepatic encephalopathy, Elevated bilirubin Instructions: Cirrhosis of Liver Dc Prescriptions: No Action cyanocobalamin (vitamin B-12) 1,000 mcg capsule 1,000 mcg PO DAILY cholecalciferol (vitamin D3) 25 mcg (1,000 unit) capsule 25 mcg PO DAILY sertraline 50 mg tablet 50 mg PO HS Qty: 30 2RF Cbd Gummies 1 gummy PO/SL DAILY trazodone 50 mg tablet 50 mg PO QHS PRN (Reason: sleep) Qty: 20 1RF scopolamine base 1 mg over 3 days patch 3 day 1 patch transdermal Q3D Qty: 10 2RF pantoprazole 40 mg tablet,delayed release (DR/EC) See Rx Instructions .ROUTE .COMPLEX Qty: 30 0RF Dose Instruction: take 1 tablet by mouth once daily Rx Instructions: take 1 tablet by mouth once daily folic acid 1 mg tablet 1 mg PO DAILY Qty: 90 3RF spironolactone 50 mg tablet 50 mg PO DAILY Qty: 90 3RF metronidazole [Flagyl] 375 mg capsule 375 mg PO TID Qty: 90 11RF lactulose 20 gram/30 mL solution See Rx Instructions .ROUTE .COMPLEX Qty: 1200 11RF Dose Instruction: take 30 milliliter by mouth four times a day Rx Instructions: take 30 milliliter by mouth four times a day furosemide 40 mg tablet See Rx Instructions .ROUTE .COMPLEX Qty: 30 11RF Dose Instruction: take 1 tablet by mouth once daily Rx Instructions: take 1 tablet by mouth once daily Xifaxan 550 mg tablet See Rx Instructions .ROUTE .COMPLEX Qty: 60 11RF Dose Instruction: take 1 tablet by mouth twice a day Rx Instructions: take 1 tablet by mouth twice a day ondansetron 4 mg tablet,disintegrating See Rx Instructions .ROUTE .COMPLEX Qty: 90 2RF Dose Instruction: dissolve 1 tablet ON TONGUE every 6 hours if needed for nausea OR vomiting Rx Instructions: dissolve 1 tablet ON TONGUE every 6 hours if needed for nausea OR vomiting prochlorperazine [Compazine] 25 mg suppository 25 mg SD BID PRN (Reason: nausea and vomiting) Qty: 14 1RF Stand Alone Forms: ED Work / School Excuse Primary Care Provider: Ita Goddard Referrals: Ita Goddard MD [Primary Care Provider] - Disposition Disposition: Home, Self Care Discharge Date/Time: 06/17/22 01:47
--- NOTE | 2022-06-16 22:34 | CT_ITS ---
EXAM: CT brain without contrast HISTORY: Confusion TECHNIQUE: No intravenous contrast. A radiation dose optimization technique was used for this scan. COMPARISON: Head CT from May 14, 2022. LIMITATIONS: None. BRAIN: Normal eagle/white matter differentiation. VENTRICLES: No hydrocephalus. EXTRA-AXIAL SPACES: No acute hemorrhage. CALVARIUM/SKULL BASE: No acute fracture. FACE/SINUSES: No significant abnormality. SOFT TISSUES: Normal. OTHER: None. CONCLUSION: No acute intracranial abnormality. Electronically Signed: Julio Schulte MD at 23:33 EST , CT/Brain/Head without Contrast IMPRESSION: undefined
--- NOTE | 2022-06-16 22:35 | RAD_ITS ---
INDICATION: Confusion EXAMINATION: Frontal and lateral views of the chest. COMPARISON: None. FINDINGS: Frontal and lateral views of the chest were obtained. The cardiac silhouette is not enlarged. No confluent airspace disease. No pleural effusion or pneumothorax. Multiple air-fluid levels within the abdomen without gross small bowel dilatation. RAD/Chest PA and Lateral IMPRESSION: No acute pulmonary disease. Multiple air-fluid levels without gross small bowel dilatation. Query enteritis. If there is concern for small bowel obstruction, abdominal series or CT is recommended. Electronically Signed: Julio Schulte MD at 23:51 EST ,
--- NOTE | 2022-06-16 22:35 | EKG12_ITS ---
Test Reason : DYSRHYTHMIA Blood Pressure : / mmHG Vent. Rate : 070 BPM Atrial Rate : 070 BPM P-R Int : 144 ms QRS Dur : 094 ms QT Int : 428 ms P-R-T Axes : 027 -02 010 degrees QTc Int : 462 ms Normal sinus rhythm Septal infarct , age undetermined Abnormal ECG Confirmed by JADEN HORNE, MANJULA ([id number]), photograph editor BIPIN HERNANDEZ ([id number]) on 06/21/2022 11:39:08 AM Referred By: KANDY Confirmed By:MANJULA STANLEY MD
[2022-06-16 23:02] LABS: International Normalized Ratio 1.9; Prothrombin Time (Protime)PT. 21.3 SECONDS (11.7-14.9)
[2022-06-16] MEDS: Lactulose 20 GM/30 ML UDC 30 GM PO (23:02)
[2022-06-16 23:03] LABS: Partial Thromboplast Time 41.6 Seconds (24.1-36.2)
[2022-06-16 23:16] LABS: Alcohol, Blood (Medical)-Serum < 3.0 mg/dL
[2022-06-16 23:23] LABS: BUN 9 mg/dL (7-18); Creatinine, Serum 1.33 mg/dL (0.70-1.30); Estimated Creatinine Clearance 67.92 ml/min; Glucose 123 mg/dL (74-106)
[2022-06-16 23:24] LABS: AST(SGOT) 89 U/L (15-37); Alanine Aminotransfer ALT/SGPT 47 U/L (16-61); Alkaline Phosphatase 209 U/L (45-117); Anion Gap 7 (5-15); BUN/Creat Ratio 6.8 RATIO (10-20); Bilirubin, Direct 2.29 mg/dL (0.00-0.30); Calcium,Total 8.8 mg/dL (8.5-10.1); Chloride 98 mmol/L (98-107); EST Glomerular Filtration Rate 61 mL/min (>60); Est Glom Filt Rate - Afr Amer 74 mL/min (>60); Globulin 4.3 g/dL (2.2-4.2); Lipase 275 U/L (73-393); Potassium 3.9 mmol/L (3.5-5.1); Protein, Total 7.3 g/dL (6.4-8.2); Sodium Level 133 mmol/L (136-145); Troponin-I HS 8 pg/mL (3.0-78.0)
[2022-06-16 23:31] LABS: Amphetamine Urine VISTA NEGATIVE (<1000 ng/mL); Barbiturate Urine VISTA NEGATIVE (< 200 ng/mL); Benzodiazepine Urine VISTA NEGATIVE (< 200 ng/mL); Cocaine Urine VISTA NEGATIVE (< 300 ng/mL); Ecstacy Urine VISTA NEGATIVE (< 500 ng/mL); Methadone Urine VISTA NEGATIVE (< 300 ng/mL); PCP Urine VISTA NEGATIVE (< 25 ng/mL); THC Urine VISTA POSITIVE (< 50 ng/mL); Vista UDS pH Range 6
[2022-06-17 01:40] VITALS: BP 134/74; PULSE 88; RESP 18; O2SAT 99
== END 2022-06-17 01:47 | disposition home or self-care (01) ==
PROVIDERS: Emergency Provider Emergency Medicine; PCP Internal Medicine; Visit Provider Emergency Medicine
DX: K74.60 Unspecified cirrhosis of liver (principal); E11.9 Type 2 diabetes mellitus without complications; I10 Essential (primary) hypertension; R41.0 Disorientation, unspecified; Z87.891 Personal history of nicotine dependence; K76.82 Hepatic encephalopathy; R45.1 Restlessness and agitation
CPT/HCPCS: 70450; 71046; 80048; 80076; 80307; 82077; 82140; 83690; 84484; 85610; 85730; 87428; 93005; 96360; 99285; J7040; A4216

== ENCOUNTER 2022-06-17 09:28 | Outpatient (RCR) | payer BC, SELFPAY ==
[2022-06-17 11:37] LABS: ALB/GLOB Ratio 0.7 RATIO (0.9-2.4); AST(SGOT) 92 U/L (15-37); Alanine Aminotransfer ALT/SGPT 50 U/L (16-61); Alkaline Phosphatase 219 U/L (45-117); Anion Gap 7 (5-15); BUN 9 mg/dL (7-18); BUN/Creat Ratio 7.6 RATIO (10-20); Calcium,Total 9.3 mg/dL (8.5-10.1); Chloride 100 mmol/L (98-107); Creatinine, Serum 1.19 mg/dL (0.70-1.30); EST Glomerular Filtration Rate 69 mL/min (>60); Est Glom Filt Rate - Afr Amer 84 mL/min (>60); Globulin 4.2 g/dL (2.2-4.2); Glucose 136 mg/dL (74-106); Potassium 4.1 mmol/L (3.5-5.1); Protein, Total 7.2 g/dL (6.4-8.2); Sodium Level 134 mmol/L (136-145)
== END 2022-06-17 18:00 | disposition home or self-care (01) ==
LOC: LAB 09:28
PROVIDERS: PCP Internal Medicine; Referring Provider Internal Medicine Gastroenterology; Visit Provider Internal Medicine Gastroenterology
DX: K74.60 Unspecified cirrhosis of liver
CPT/HCPCS: 36415; 80053

== ENCOUNTER 2022-06-17 19:39 | Inpatient (IN) | payer BC, SELFPAY ==
[2022-06-17 19:40] VITALS: BP 135/88; PULSE 117; RESP 15; TEMP 37; O2SAT 97; BMI 23.3
[2022-06-17 20:51] LABS: Absolute Neutrophil Count 4.3 X10^3/uL (2.0-7.7); Basophil# 0.04 X10^3/uL; Basophil% 0.7 % (0-1); Eosinophil# 0.09 X10^3/uL; Eosinophils% 1.6 % (0-5); Hematocrit 33.7 % (40-54); Lymphocyte % 12.4 % (19-41); Mean Corp Hgb Conc 35.6 g/dL (32-36); Mean Corpuscular Volume 112.3 fL (80-94); Mean Platelet Vol. 9.5 fl (6.2-12.0); Monocyte# 0.54 X10^3/uL; Monocyte% 9.6 % (0-10); NRBC Flagged by Analyzer 0 % (0-5); Neutrophil # 4.26 X10^3/uL (2.7-7.7); Neutrophil % 75.3 % (47-70); Platelet Count 109 K/mm3 (150-450); RBC Distribution Width CV 13.7 % (11.6-14.6); RBC Distribution Width SD 56.2 fl (35.1-43.9); White Blood Count 5.7 K/mm3 (4.4-11.0)
--- NOTE | 2022-06-17 20:59 | EDS_ITS ---
HPI History of Present Illness Chief Complaint: General Illness Detail of Chief Complaint: Combative behavior, confusion Informant: patient and spouse/S.O. Narrative Narrative: Patient presents in for the third night in a row for evaluation. He has a history of cirrhosis and hepatic encephalopathy. Last 2 nights he was seen with confusion that states starts around sundown. Tonight he was confused and became combative. He has now calmed. She does not feel she can care for him at home and to this is figured out. She states has been doing some reading and is concerned he may have sundowning secondary to his liver disease. He has been compliant with his liver medications. [facility] Medical History Alcoholic hepatitis Carrier of hemochromatosis HFE gene mutation Cirrhosis Diabetes mellitus type 2 in nonobese Dietary restriction Former smoker Gastric reflux Gout Hepatic encephalopathy History of edema History of panic attacks History of stress test HTN (hypertension) Hx of gout Liver damage Seasonal allergies Home Medications cyanocobalamin (vitamin B-12) 1,000 mcg capsule 1,000 mcg PO DAILY 09/13/21 [History Last Taken Unknown] cholecalciferol (vitamin D3) 25 mcg (1,000 unit) capsule 25 mcg PO DAILY 10/14/21 [History Last Taken Unknown] Cbd Gummies 1 gummy PO/SL DAILY 11/30/21 [History Last Taken Unknown] trazodone 50 mg tablet 50 mg PO QHS PRN sleep #20 tabs 12/15/21 [Rx Last Taken Unknown] scopolamine base 1 mg over 3 days transdermal patch 1 patch transdermal Q3D #10 ea 03/14/22 [Rx Last Taken Unknown] pantoprazole 40 mg tablet,delayed release See Rx Instructions .Route .COMPLEX #30 tabs 04/04/22 [Rx Last Taken Unknown] folic acid 1 mg tablet 1 mg PO DAILY #90 tabs 05/02/22 [Rx Last Taken Unknown] spironolactone 50 mg tablet 50 mg PO DAILY #90 tabs 05/04/22 [Rx Last Taken Unknown] metronidazole 375 mg capsule (Flagyl) 375 mg PO TID #90 caps 05/17/22 [Rx Last Taken Unknown] lactulose 20 gram/30 mL oral solution See Rx Instructions .Route .COMPLEX #1,200 mL 05/24/22 [Rx Last Taken Unknown] furosemide 40 mg tablet See Rx Instructions .Route .COMPLEX #30 TABLETS 05/27/22 [Rx Last Taken Unknown] rifaximin 550 mg tablet (Xifaxan) See Rx Instructions .Route .COMPLEX #60 tabs 05/30/22 [Rx Last Taken Unknown] sertraline 50 mg tablet 50 mg PO HS #30 tabs 06/03/22 [Rx Last Taken Unknown] ondansetron 4 mg disintegrating tablet See Rx Instructions .Route .COMPLEX #90 TABLETS 06/07/22 [Rx Last Taken Unknown] prochlorperazine 25 mg rectal suppository (Compazine) 25 mg ID BID PRN nausea and vomiting #14 supp 06/13/22 [Rx Last Taken Unknown] Allergy/AdvReac Type Severity Reaction Status Date / Time pioglitazone Allergy Mild liver Verified 06/17/22 19:46 damange Family History Other CVA (cerebral vascular accident) Cancer Heart disease Hypertension Thyroid disorder Surgical History History of esophagogastroduodenoscopy (EGD) History of surgery 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 Status: Former smoker alcohol intake: former substance use type: does not use what type of physical activity do you participate in: other frequency: 1-2 times per week ROS ROS ED Constitutional Constitutional ED: Denies chills or fever(s) Eyes Eyes: Denies change in vision or discharge from eye(s) ENT ENT ED: Denies discharge from eye(s), rhinorrhea or sore throat Cardiovascular Cardiovascular: Denies chest pain or palpitations Respiratory/Chest Respiratory/Chest: Denies cough or dyspnea Gastrointestinal Gastrointestinal: Denies abdominal pain, nausea or vomiting Genitourinary Genitourinary ED: Denies dysuria Musculoskeletal Musculoskeletal: Denies back pain or extremity pain Integumentary Reports other Details: Jaundice ; Denies Abrasions or rash Neurologic Neurologic: Denies headache(s) or weakness Psychiatric Psychiatric: Reports other Details: Intermittent confusion and acting out. ; Denies anxiety or depression Allergic/Immunologic Allergic/Immunologic ED: Denies lip swelling or urticaria EXAM Physical Exam Const Vital Signs: 06/17/22 19:40 06/17/22 19:45 Temperature 98.6 F Temperature Source Oral Pulse Rate 117 H Respiratory Rate 15 Respiratory Effort Non-Labored Respiratory Pattern Normal Blood Pressure 135/88 H Blood Pressure Mean 103 Pulse Ox 97 Oxygen Delivery Method Room Air Positive well nourished and well developed General Appearance ED: well developed HEENT Reports normocephalic and head/scalp atraumatic Eyes PERRL and EOMs intact bilaterally Eyes Narrative: Mild scleral icterus. Neck supple Chest Wall inspection of chest normal and palpation of chest normal Resp normal respiratory effort and clear to auscultation bilaterally Cardio regular rate and regular rhythm GI normal to inspection, nondistended, normoactive bowel sounds Palpation: soft Extremity normal to inspection Neuro no sensory deficits noted Sensorium / Orientation: alert Motor Exam: strength 5/5 throughout Psych mental status grossly normal Skin Skin Narrative: Very mild jaundice noted at this time. MDM MDM MDM Narrative Medical decision making narrative: Patient's lab work is repeated tonight. I did review his notes for the last 2 days. He had a head CT earlier this morning that was unremarkable. Lab Data Attestation: I reviewed the patient's lab results. Labs: Laboratory Results - last 24 hr 06/17/22 06/17/22 06/17/22 20:37 20:37 20:37 WBC 5.7 RBC 3.00 L Hgb 12.0 L Hct 33.7 L MCV 112.3 H MCH 40.0 H MCHC 35.6 RDW Std Deviation 56.2 H RDW Coeff of Kaela 13.7 Plt Count 109 L MPV 9.5 Immature Gran % (Auto) 0.400 Neut % (Auto) 75.3 H Lymph % (Auto) 12.4 L [place] % (Auto) 9.6 Eos % (Auto) 1.6 Baso % (Auto) 0.7 Absolute Neuts (auto) 4.3 Absolute Lymphs (auto) 0.70 L Nucleated RBC % 0 Sodium 135 L Potassium 3.9 Chloride 100 Carbon Dioxide 29.0 Anion Gap 6 BUN 10 Creatinine 1.39 H Estim Creat Clear Calc 64.99 Est GFR (MDRD) Af Amer 70 Est GFR (MDRD) Non-Af 58 L BUN/Creatinine Ratio 7.2 L Glucose 188 H Calcium 9.2 Total Bilirubin 4.10 H Direct Bilirubin 2.23 H AST 89 H ALT 49 Alkaline Phosphatase 217 H Ammonia < 10.0 L Total Protein 7.5 Albumin 3.1 L Globulin 4.4 H Treatment and Re-Evaluation Narrative: Repeat evaluation patient resting comfortably. Lab work is reviewed. Glucose is elevated at 188. Total bili is 4.10 and direct bili 2.23. AST is 89. Alk phos is 217. These values do not look significantly out of line when compared to his prior values. His ammonia tonight is less than 10. I spoke with Debra Lipscomb, nurse practitioner on-call for Dr. Martinez. She was made aware of the patient's multiple visits. She states that she believes the spoke with mother nurses today and they encouraged her to not allow him to have any of the CBD or THC Gummies as they were not sure if this might be triggering some symptoms. She does agree the patient should be observed and to sound like he is not safe to be at home with family tonight. Dr. Martinez will be notified and he will see the patient tomorrow. I will speak with the hospitalist. Discharge Plan Triage Chief Complaint: General Illness ED Provider: Amanda Palomo Dx/Rx/DC Orders Clinical Impression: Confusion, Disturbance in physical behavior, Liver disease Prescriptions: No Action cyanocobalamin (vitamin B-12) 1,000 mcg capsule 1,000 mcg PO DAILY cholecalciferol (vitamin D3) 25 mcg (1,000 unit) capsule 25 mcg PO DAILY sertraline 50 mg tablet 50 mg PO HS Qty: 30 2RF Cbd Gummies 1 gummy PO/SL DAILY trazodone 50 mg tablet 50 mg PO QHS PRN (Reason: sleep) Qty: 20 1RF scopolamine base 1 mg over 3 days patch 3 day 1 patch transdermal Q3D Qty: 10 2RF pantoprazole 40 mg tablet,delayed release (DR/EC) See Rx Instructions .ROUTE .COMPLEX Qty: 30 0RF Dose Instruction: take 1 tablet by mouth once daily Rx Instructions: take 1 tablet by mouth once daily folic acid 1 mg tablet 1 mg PO DAILY Qty: 90 3RF spironolactone 50 mg tablet 50 mg PO DAILY Qty: 90 3RF metronidazole [Flagyl] 375 mg capsule 375 mg PO TID Qty: 90 11RF lactulose 20 gram/30 mL solution See Rx Instructions .ROUTE .COMPLEX Qty: 1200 11RF Dose Instruction: take 30 milliliter by mouth four times a day Rx Instructions: take 30 milliliter by mouth four times a day furosemide 40 mg tablet See Rx Instructions .ROUTE .COMPLEX Qty: 30 11RF Dose Instruction: take 1 tablet by mouth once daily Rx Instructions: take 1 tablet by mouth once daily Xifaxan 550 mg tablet See Rx Instructions .ROUTE .COMPLEX Qty: 60 11RF Dose Instruction: take 1 tablet by mouth twice a day Rx Instructions: take 1 tablet by mouth twice a day ondansetron 4 mg tablet,disintegrating See Rx Instructions .ROUTE .COMPLEX Qty: 90 2RF Dose Instruction: dissolve 1 tablet ON TONGUE every 6 hours if needed for nausea OR vomiting Rx Instructions: dissolve 1 tablet ON TONGUE every 6 hours if needed for nausea OR vomiting prochlorperazine [Compazine] 25 mg suppository 25 mg ID BID PRN (Reason: nausea and vomiting) Qty: 14 1RF Primary Care Provider: Ita Goddard Referrals: Ita Goddard MD [Primary Care Provider] - Disposition Disposition: Acute Care Hospital [facility]
[2022-06-17 21:05] LABS: AST(SGOT) 89 U/L (15-37); Alanine Aminotransfer ALT/SGPT 49 U/L (16-61); Albumin, Serum 3.1 g/dL (3.2-5.0); Alkaline Phosphatase 217 U/L (45-117); Anion Gap 6 (5-15); BUN 10 mg/dL (7-18); BUN/Creat Ratio 7.2 RATIO (10-20); Bilirubin, Direct 2.23 mg/dL (0.00-0.30); Calcium,Total 9.2 mg/dL (8.5-10.1); Chloride 100 mmol/L (98-107); Creatinine, Serum 1.39 mg/dL (0.70-1.30); EST Glomerular Filtration Rate 58 mL/min (>60); Est Glom Filt Rate - Afr Amer 70 mL/min (>60); Estimated Creatinine Clearance 64.99 ml/min; Globulin 4.4 g/dL (2.2-4.2); Glucose 188 mg/dL (74-106); Potassium 3.9 mmol/L (3.5-5.1); Protein, Total 7.5 g/dL (6.4-8.2); Sodium Level 135 mmol/L (136-145)
[2022-06-17 21:25] LABS: Ammonia < 10.0 umol/L (11-32)
--- NOTE | 2022-06-17 21:53 | HP.PCM.HOS_ITS ---
HPI - General General Date of Admission: 06/17/22 Date of Service: 06/17/22 Chief Complaint: confusion HPI Narrative ALEX ROJO, is a 47 M with a significant history of cirrhosis and hepatic encephalopathy who presents to the emergency department with a 3-day history of progressively worsening confusion above his baseline. Patient has not been somewhat physically aggressive requiring his to call for help. His symptoms comes on later afternoons. It is patient's third visit, 3 days in a row. Patient's notes that patient has been a little bit more yellow in his skin and in his eyes. Also patient has been anorexic in the past 2 to 3 days except that on the day of presentation his appetite was more improved than previous days. Patient demand planner office was called and patient was advised to stop CBD Gummies that he is on. [facility] Medical History Alcoholic hepatitis Carrier of hemochromatosis HFE gene mutation Cirrhosis Diabetes mellitus type 2 in nonobese Dietary restriction Former smoker Gastric reflux Gout Hepatic encephalopathy History of edema History of panic attacks History of stress test HTN (hypertension) Hx of gout Liver damage Seasonal allergies Sleep apnea Home Medications cyanocobalamin (vitamin B-12) 1,000 mcg capsule 1,000 mcg PO DAILY 09/13/21 [History Last Taken Unknown] cholecalciferol (vitamin D3) 25 mcg (1,000 unit) capsule 25 mcg PO DAILY 10/14/21 [History Last Taken Unknown] Cbd Gummies 1 gummy PO/SL DAILY 11/30/21 [History Last Taken Unknown] trazodone 50 mg tablet 50 mg PO QHS PRN sleep #20 tabs 12/15/21 [Rx Last Taken Unknown] scopolamine base 1 mg over 3 days transdermal patch 1 patch transdermal Q3D #10 ea 03/14/22 [Rx Last Taken Unknown] pantoprazole 40 mg tablet,delayed release See Rx Instructions .Route .COMPLEX #30 tabs 04/04/22 [Rx Last Taken Unknown] folic acid 1 mg tablet 1 mg PO DAILY #90 tabs 05/02/22 [Rx Last Taken Unknown] spironolactone 50 mg tablet 50 mg PO DAILY #90 tabs 05/04/22 [Rx Last Taken Unknown] metronidazole 375 mg capsule (Flagyl) 375 mg PO TID #90 caps 05/17/22 [Rx Last Taken Unknown] lactulose 20 gram/30 mL oral solution See Rx Instructions .Route .COMPLEX #1,200 mL 05/24/22 [Rx Last Taken Unknown] furosemide 40 mg tablet See Rx Instructions .Route .COMPLEX #30 TABLETS 05/27/22 [Rx Last Taken Unknown] rifaximin 550 mg tablet (Xifaxan) See Rx Instructions .Route .COMPLEX #60 tabs 05/30/22 [Rx Last Taken Unknown] sertraline 50 mg tablet 50 mg PO HS #30 tabs 06/03/22 [Rx Last Taken Unknown] ondansetron 4 mg disintegrating tablet See Rx Instructions .Route .COMPLEX #90 TABLETS 06/07/22 [Rx Last Taken Unknown] prochlorperazine 25 mg rectal suppository (Compazine) 25 mg IN BID PRN nausea and vomiting #14 supp 06/13/22 [Rx Last Taken Unknown] Allergy/AdvReac Type Severity Reaction Status Date / Time pioglitazone Allergy Mild liver Verified 06/17/22 19:46 damange Family History Other CVA (cerebral vascular accident) Cancer Heart disease Hypertension Thyroid disorder Surgical History History of esophagogastroduodenoscopy (EGD) History of surgery 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 All other systems were reviewed and are negative Vital Signs Vital Signs Vital Signs: 06/17/22 19:40 06/17/22 19:45 Temperature 98.6 F Temperature Source Oral Pulse Rate 117 H Respiratory Rate 15 Respiratory Effort Non-Labored Respiratory Pattern Normal Blood Pressure 135/88 H Blood Pressure Mean 103 Pulse Ox 97 Oxygen Delivery Method Room Air Weight Weight: 71.8 kg Body Mass Index (BMI) 23.3 Physical Exam Narrative Physical exam: General: Well-nourished, well-developed. Head: Normocephalic, atraumatic, no tenderness Eyes: Vision is grossly intact. Extraocular eye movements with horizontal nystagmus when patient's looks to the left. ENT, no trauma, moist mucous membranes, no rhinorrhea Neck: Nontender, No thyromegaly. CVS: Regular rate and rhythm. S1-S2 present. No murmur, gallop or rub. Respiratory : clear to auscultation bilaterally, chest wall nontender, no wheezing Abdomen: Soft, nontender, nondistended, normal bowel sounds, no masses : Deferred Back: Nontender, no CVA tenderness. Extremities: Nontender full range of motion, no trauma Skin: Normal color, no trauma, abrasions Neuro: Alert, oriented, cranial nerves II through XII grossly intact. Psychiatry: Normal mood. Normal affect. Not depressed. Not anxious. Results Lab / Micro Data Result Diagrams: 06/17/22 20:37 06/17/22 20:37 Labs: Laboratory Results - last 24 hr 06/17/22 20:37: WBC 5.7, RBC 3.00 L, Hgb 12.0 L, Hct 33.7 L, MCV 112.3 H, MCH 40.0 H, MCHC 35.6, RDW Std Deviation 56.2 H, RDW Coeff of Kaela 13.7, Plt Count 109 L, MPV 9.5, Immature Gran % (Auto) 0.400, Neut % (Auto) 75.3 H, Lymph % (Auto) 12.4 L, [place] % (Auto) 9.6, Eos % (Auto) 1.6, Baso % (Auto) 0.7, Absolute Neuts (auto) 4.3, Absolute Lymphs (auto) 0.70 L, Nucleated RBC % 0 06/17/22 20:37: Sodium 135 L, Potassium 3.9, Chloride 100, Carbon Dioxide 29.0, Anion Gap 6, BUN 10, Creatinine 1.39 H, Estim Creat Clear Calc 64.99, Est GFR (MDRD) Af Amer 70, Est GFR (MDRD) Non-Af 58 L, BUN/Creatinine Ratio 7.2 L, Glucose 188 H, Calcium 9.2, Total Bilirubin 4.10 H, Direct Bilirubin 2.23 H, AST 89 H, ALT 49, Alkaline Phosphatase 217 H, Total Protein 7.5, Albumin 3.1 L, Globulin 4.4 H 06/17/22 20:37: Ammonia < 10.0 L Assessment & Plan Assessment/Plan (1) Metabolic encephalopathy: PLAN: Plan Acute on chronic metabolic encephalopathy With ammonia level and normal likely this is not hepatic encephalopathy. Patient with no abdominal pain or palpable ascites. Last drink reportedly more than 2 to 3 years ago. With confusion and some nystagmus on examination cannot rule out Warnicke's encephalopathy. We will start patient on high-dose thiamine. Emergency department doctor discussed the case with gastroenterology SUPERVISOR [employer] who recommended admission. GI consult in a.m. Check Vitamin B12. Check TSH Repeat ammonia in am Hold trazodone, hold scopolamine patch. Hold folic acid. Hold vitamin D. Hyponatremia Mild Chronic Trend CBC. Hyperbilirubinemia Bilirubin of 4.10 on presentation, stable. DVT prophylaxis: Subcutaneous Lovenox ordered. Charges/Coding Visit Charges OBSV E&M: 34458 Initial observation care L3
[2022-06-17 22:12] VITALS: BP 135/88; PULSE 117; RESP 15; TEMP 37; O2SAT 97
[2022-06-17 22:59] VITALS: BMI 22.7
[2022-06-17 23:00] VITALS: BP 124/81; PULSE 82; RESP 18; TEMP 36.8; O2SAT 99
--- NOTE | 2022-06-17 23:40 | NURSING ---
Called Pt's to go over admission questions. to bring in healthare power of disability attorney papers. thinks pt had a blood transfusion 2 years ago. Reviewed Pt's med list & history.
[2022-06-18] MEDS: Thiamine Hydrochloride 100 MG Tablet 200 MG PO ×3 (00:20→20:10)
[2022-06-18 07:31] LABS: Absolute Lymphocyte Count 1.03 X10^3/uL (0.83-4.51); Absolute Neutrophil Count 3.9 X10^3/uL (2.0-7.7); Basophil# 0.04 X10^3/uL; Basophil% 0.7 % (0-1); Eosinophil# 0.25 X10^3/uL; Eosinophils% 4.3 % (0-5); Hematocrit 32.1 % (40-54); Hemoglobin 11.6 g/dL (13.0-16.5); Lymphocyte # 1.03 X10^3/ul (0.83-4.51); Lymphocyte % 17.7 % (19-41); Mean Corp Hgb Conc 36.1 g/dL (32-36); Mean Corpuscular Hgb 40.1 pg (27.0-32.0); Mean Corpuscular Volume 111.1 fL (80-94); Mean Platelet Vol. 9.9 fl (6.2-12.0); Monocyte# 0.58 X10^3/uL; NRBC Flagged by Analyzer 0 % (0-5); Neutrophil # 3.89 X10^3/uL (2.7-7.7); Platelet Count 100 K/mm3 (150-450); RBC Distribution Width CV 13.2 % (11.6-14.6); RBC Distribution Width SD 55.1 fl (35.1-43.9); Red Blood Count 2.89 M/mm3 (4.6-6.2); White Blood Count 5.8 K/mm3 (4.4-11.0)
[2022-06-18 07:37] VITALS: O2SAT 98
[2022-06-18 07:56] VITALS: BP 104/72; PULSE 78; RESP 16; TEMP 36.7; O2SAT 100
[2022-06-18 08:10] LABS: Anion Gap 6 (5-15); BUN 9 mg/dL (7-18); Chloride 100 mmol/L (98-107); EST Glomerular Filtration Rate 85 mL/min (>60); Est Glom Filt Rate - Afr Amer 103 mL/min (>60); Estimated Creatinine Clearance 89.37 ml/min; Glucose 99 mg/dL (74-106); Potassium 3.6 mmol/L (3.5-5.1); Sodium Level 135 mmol/L (136-145); Thyroid Stim Hormone (TSH) 0.42 uIU/mL (0.358-3.74)
[2022-06-18] MEDS: Ensure Plus High Protein 120 ML LIQUID PO ×2 (08:14→12:36)
[2022-06-18] MEDS: Spironolactone 50 MG Tablet PO (10:51)
[2022-06-18] MEDS: Pantoprazole Sodium 40 MG Tablet PO (10:52)
[2022-06-18] MEDS: Furosemide 40 MG Tablet PO (10:52)
[2022-06-18] MEDS: rifAXIMin 550 MG Tablet PO ×2 (10:54→20:10)
[2022-06-18] MEDS: Lactulose 20 GM/30 ML UDC PO ×4 (10:56→20:10)
--- NOTE | 2022-06-18 12:49 | PN.HOSP_ITS ---
Subjective Subjective Patient seen and examined. He had no active complaints. was by his bedside. Patient says he was very agitated and aggressive towards his yesterday,he says this is unlike him. His was present and corroborated this. says patient has such aggressive episodes, then becomes very drowsy and somnolent. He is taking his lactulose as prescribed, and is having at least 2-3 loose stools daily. Review of systems is otherwise negative. Objective Data Objective Data Vital Signs: Vital Signs Temp Pulse Resp BP Pulse Ox O2 Del Method 98.1 F 78 16 104/72 100 Room Air 06/18/22 07:56 06/18/22 07:56 06/18/22 07:56 06/18/22 07:56 06/18/22 07:56 06/18/22 07:56 Oxygen Delivery Method Room Air Weight: 154 lb 3.2 oz Body Mass Index (BMI) 22.7 Lab / Micro Data Result Diagrams: 06/18/22 06:10 06/18/22 06:10 Labs: Laboratory Results - last 24 hr 06/17/22 20:37: WBC 5.7, RBC 3.00 L, Hgb 12.0 L, Hct 33.7 L, MCV 112.3 H, MCH 40.0 H, MCHC 35.6, RDW Std Deviation 56.2 H, RDW Coeff of Kaela 13.7, Plt Count 109 L, MPV 9.5, Immature Gran % (Auto) 0.400, Neut % (Auto) 75.3 H, Lymph % (Auto) 12.4 L, Emanuel % (Auto) 9.6, Eos % (Auto) 1.6, Baso % (Auto) 0.7, Absolute Neuts (auto) 4.3, Absolute Lymphs (auto) 0.70 L, Nucleated RBC % 0 06/17/22 20:37: Sodium 135 L, Potassium 3.9, Chloride 100, Carbon Dioxide 29.0, Anion Gap 6, BUN 10, Creatinine 1.39 H, Estim Creat Clear Calc 64.99, Est GFR (MDRD) Af Amer 70, Est GFR (MDRD) Non-Af 58 L, BUN/Creatinine Ratio 7.2 L, Glucose 188 H, Calcium 9.2, Total Bilirubin 4.10 H, Direct Bilirubin 2.23 H, AST 89 H, ALT 49, Alkaline Phosphatase 217 H, Total Protein 7.5, Albumin 3.1 L, Globulin 4.4 H 06/17/22 20:37: Ammonia < 10.0 L 06/18/22 06:10: WBC 5.8, RBC 2.89 L, Hgb 11.6 L, Hct 32.1 L, MCV 111.1 H, MCH 40.1 H, MCHC 36.1 H, RDW Std Deviation 55.1 H, RDW Coeff of Kaela 13.2, Plt Count 100 L, MPV 9.9, Immature Gran % (Auto) 0.300, Neut % (Auto) 67.0, Lymph % (Auto) 17.7 L, Emanuel % (Auto) 10.0, Eos % (Auto) 4.3, Baso % (Auto) 0.7, Absolute Neuts (auto) 3.9, Absolute Lymphs (auto) 1.03, Nucleated RBC % 0 06/18/22 06:10: Sodium 135 L, Potassium 3.6, Chloride 100, Carbon Dioxide 29.0, Anion Gap 6, BUN 9, Creatinine 1.00, Estim Creat Clear Calc 89.37, Est GFR (MDRD) Af Amer 103, Est GFR (MDRD) Non-Af 85, BUN/Creatinine Ratio 9.0 L, Glucose 99, Calcium 9.0, TSH 0.42 06/18/22 06:10: Ammonia 47.0 H 06/18/22 06:10: Folate 18.50 Physical Exam Const alert, oriented x3 and no apparent distress HEENT head/scalp atraumatic, moist oral mucous membranes and oropharynx normal HEENT Narrative: jaundiced Head and Scalp: normocephalic Mouth: oral and palatal mucosa normal Eyes PERRL, EOMs intact bilaterally and conjunctivae normal Neck no lymphadenopathy, supple and no JVD Resp normal respiratory effort, no retractions, no use of accessory muscles and clear to auscultation bilaterally Cardio regular rate, regular rhythm, S1 normal heart sound, S2 normal heart sound and no murmurs GI normal to inspection, nondistended, normoactive bowel sounds, soft to palpation, non-tender and non-distended Extremity normal to inspection and full ROM Neuro oriented x3, CN's II-XII intact bilaterally, moves all extremities and no focal motor deficits Neuro Narrative: minimal asterixis Sensorium / Orientation: awake and alert Motor Exam: strength 5/5 throughout Psych affect normal Assessment & Plan Assessment/Plan (1) Metabolic encephalopathy: (2) Cirrhosis: PLAN: Plan #Acute hepatic encephalopathy * ammonia level today is elevated at 47, though it was <10 on admission * on lactulose. Titrate to achieve at least 2-3 loose stools daily * check urine tox * on thiamine due to concerns about Wernicke's encephalopathy. * trazodone and scopolamine patch on hold * GI consulted; await rec's * CT of the brain showed no acute intracranial pathology * Cirrhosis due to alcohol dependence and fatty liver * on lactulose as above * #THrombocytopenia: platelets are 100. Hold lovenox #DVT prophylaxis: lovenox; stop if platelets trend downwards some more. Charges/Coding Visit Charges Inpatient E&M: 06070 Subs Hosp L3
[2022-06-18 14:05] VITALS: BP 116/63; PULSE 74; RESP 16; TEMP 36.8; O2SAT 99
--- NOTE | 2022-06-18 15:19 | CON.PCM_ITS ---
Assessment & Plan Assessment/Plan (1) Cirrhosis: PLAN: Alcoholic cirrhosis with a meld of 16. 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 He is undergoing transplant evaluation at [facility] in [place]. He is not showing any signs of decompensation at this time. His LFTs and liver enzymes actually improved. Would recommend to continue current outpatient medicines. He is not showing any bleeding or liver failure. I had a long discussion with him and his regarding his marijuana usage in the setting of cirrhosis. It does not decrease his chance of getting a liver. However it does affect his cognition. (2) Hepatic encephalopathy: PLAN: Recommend lactulose every 6 hours, neomycin, Flagyl and Xifaxan. His am monia level is going up and I suspect there will keep going up. Hopefully this will help sterilize his gastrointestinal tract and let the lactulose worked better. HPI Consult Data Date of Consult: 06/18/22 HPI Narrative Reason for Consultation: altered mental status HPI Narrative: АЛЕКСАНДР ROJO, is a 47 M who presents to the ED with daughter mental status. Александр established with the GI clinic 09.13.21 with a previous diagnosis alcoholic hepatitis and alcoholic cirrhosis [place] in and subsequently quit alcohol consumption. Previously established with steam clean machine operator Dr. Diana Abarca for alcoholic hepatitis without ascites, with coagulopathy and jaundice. He is pursuing transplant options through [facility] as they do not require COVID vaccination. Patient presented to the ED for the third night in a row for evaluation.? He has a history of cirrhosis and hepatic encephalopathy.? Last 2 nights he was seen with confusion that states starts around sundown.? Tonight he was confused and became combative.? He has now calmed.? She does not feel she can care for him at home and to this is figured out.? She states has been doing some reading and is concerned he may have sundowning secondary to his liver disease.? He has been compliant with his liver medications. [facility] Medical History Alcoholic hepatitis Carrier of hemochromatosis HFE gene mutation Cirrhosis Diabetes mellitus type 2 in nonobese Dietary restriction Former smoker Gastric reflux Gout Hepatic encephalopathy History of edema History of panic attacks History of stress test HTN (hypertension) Hx of gout Liver damage Seasonal allergies Sleep apnea Home Medications cyanocobalamin (vitamin B-12) 1,000 mcg capsule 1,000 mcg PO DAILY 09/13/21 [History Last Taken Unknown] cholecalciferol (vitamin D3) 25 mcg (1,000 unit) capsule 25 mcg PO DAILY 10/14/21 [History Last Taken Unknown] Cbd Gummies 1 gummy PO/SL DAILY 11/30/21 [History Last Taken Unknown] trazodone 50 mg tablet 50 mg PO QHS PRN sleep #20 tabs 12/15/21 [Rx Last Taken Unknown] scopolamine base 1 mg over 3 days transdermal patch 1 patch transdermal Q3D #10 ea 03/14/22 [Rx Last Taken Unknown] pantoprazole 40 mg tablet,delayed release See Rx Instructions .Route .COMPLEX #30 tabs 04/04/22 [Rx Last Taken Unknown] folic acid 1 mg tablet 1 mg PO DAILY #90 tabs 05/02/22 [Rx Last Taken Unknown] spironolactone 50 mg tablet 50 mg PO DAILY #90 tabs 05/04/22 [Rx Last Taken Unknown] metronidazole 375 mg capsule (Flagyl) 375 mg PO TID #90 caps 05/17/22 [Rx Last Taken Unknown] lactulose 20 gram/30 mL oral solution See Rx Instructions .Route .COMPLEX #1,200 mL 05/24/22 [Rx Last Taken Unknown] furosemide 40 mg tablet See Rx Instructions .Route .COMPLEX #30 TABLETS 05/27/22 [Rx Last Taken Unknown] rifaximin 550 mg tablet (Xifaxan) See Rx Instructions .Route .COMPLEX #60 tabs 05/30/22 [Rx Last Taken Unknown] sertraline 50 mg tablet 50 mg PO HS #30 tabs 06/03/22 [Rx Last Taken Unknown] ondansetron 4 mg disintegrating tablet See Rx Instructions .Route .COMPLEX #90 TABLETS 06/07/22 [Rx Last Taken Unknown] prochlorperazine 25 mg rectal suppository (Compazine) 25 mg [place] BID PRN nausea and vomiting #14 supp 06/13/22 [Rx Last Taken Unknown] Allergy/AdvReac Type Severity Reaction Status Date / Time pioglitazone Allergy Mild liver Verified 06/17/22 19:46 damange Family History Other CVA (cerebral vascular accident) Cancer Heart disease Hypertension Thyroid disorder Surgical History History of esophagogastroduodenoscopy (EGD) History of surgery 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 All other systems were reviewed and are negative Physical Exam Const alert, oriented x3 and no apparent distress HEENT head/scalp atraumatic, moist oral mucous membranes and oropharynx normal HEENT Narrative: jaundiced Head and Scalp: normocephalic Mouth: oral and palatal mucosa normal Eyes PERRL, EOMs intact bilaterally and conjunctivae normal Neck no lymphadenopathy, supple and no JVD Resp normal respiratory effort, no retractions, no use of accessory muscles and clear to auscultation bilaterally Cardio regular rate, regular rhythm, S1 normal heart sound, S2 normal heart sound and no murmurs GI normal to inspection, nondistended, normoactive bowel sounds, soft to palpation, non-tender and non-distended Extremity normal to inspection and full ROM Neuro oriented x3, CN's II-XII intact bilaterally, moves all extremities and no focal motor deficits Neuro Narrative: minimal asterixis Sensorium / Orientation: awake and alert Motor Exam: strength 5/5 throughout Psych affect normal Lab / Micro Data Result Diagrams: 06/18/22 06:10 06/18/22 06:10 Labs: Laboratory Results - last 24 hr 06/17/22 20:37: WBC 5.7, RBC 3.00 L, Hgb 12.0 L, Hct 33.7 L, MCV 112.3 H, MCH 40.0 H, MCHC 35.6, RDW Std Deviation 56.2 H, RDW Coeff of Kaela 13.7, Plt Count 109 L, MPV 9.5, Immature Gran % (Auto) 0.400, Neut % (Auto) 75.3 H, Lymph % (Auto) 12.4 L, [place] % (Auto) 9.6, Eos % (Auto) 1.6, Baso % (Auto) 0.7, Absolute Neuts (auto) 4.3, Absolute Lymphs (auto) 0.70 L, Nucleated RBC % 0 06/17/22 20:37: Sodium 135 L, Potassium 3.9, Chloride 100, Carbon Dioxide 29.0, Anion Gap 6, BUN 10, Creatinine 1.39 H, Estim Creat Clear Calc 64.99, Est GFR (MDRD) Af Amer 70, Est GFR (MDRD) Non-Af 58 L, BUN/Creatinine Ratio 7.2 L, Glucose 188 H, Calcium 9.2, Total Bilirubin 4.10 H, Direct Bilirubin 2.23 H, AST 89 H, ALT 49, Alkaline Phosphatase 217 H, Total Protein 7.5, Albumin 3.1 L, Globulin 4.4 H 06/17/22 20:37: Ammonia < 10.0 L 06/18/22 06:10: WBC 5.8, RBC 2.89 L, Hgb 11.6 L, Hct 32.1 L, MCV 111.1 H, MCH 40.1 H, MCHC 36.1 H, RDW Std Deviation 55.1 H, RDW Coeff of Kaela 13.2, Plt Count 100 L, MPV 9.9, Immature Gran % (Auto) 0.300, Neut % (Auto) 67.0, Lymph % (Auto) 17.7 L, Woodruff % (Auto) 10.0, Eos % (Auto) 4.3, Baso % (Auto) 0.7, Absolute Neuts (auto) 3.9, Absolute Lymphs (auto) 1.03, Nucleated RBC % 0 06/18/22 06:10: Sodium 135 L, Potassium 3.6, Chloride 100, Carbon Dioxide 29.0, Anion Gap 6, BUN 9, Creatinine 1.00, Estim Creat Clear Calc 89.37, Est GFR (MDRD) Af Amer 103, Est GFR (MDRD) Non-Af 85, BUN/Creatinine Ratio 9.0 L, Glucose 99, Calcium 9.0, TSH 0.42 06/18/22 06:10: Ammonia 47.0 H 06/18/22 06:10: Folate 18.50 Charges/Coding Visit Charges Inpatient E&M: 00210 Init Hosp L2
--- NOTE | 2022-06-18 15:20 | CASEMGMT ---
Addendum entered by Abby Andrews 06/20/22 15:20: Late entry for 06/18/22 @ 1520: Addendum: informed PENNY MEDINA that pt has been texting vulgar messages to his friends. She states they have been contacting her to let her know about the messages. states she has asked pt about them and pt states he does not remember sending them. Pt stated he placed a prayer request in the Prayer request box on MS3 and would like to know if it could be taken out of the box so his can read it, as he thought it might be helpful for her to know what he was wanting prayer for. press setter, Lin, made aware. When Lin went to remove it from the prayer box, she found a bloody tissue folded up in the prayer request/note that pt had placed in the box. Lin stated would place this in a sleeve and make a copy of it and give copy to to prevent further contamination. Original Note: PENNY MEDINA NOTE: PENNY MEDINA informed that pt's inquiring about what to do if pt has behaviors again in the future, once he returns home. Eva MALONE, unavailable to meet w/ at this time but recommended be provided w/contact info for [facility] and -. RN CM to room to talk w/. Pt resting in bed at this time. PENNY MEDINA introduced self and role. Pt and both voice concern about pt having aggressive behaviors in the future, stating that it comes on suddenly. Pt states he does not feel anything changing/does not have warning signs and that it has been happening in the evenings. He voices concern about Sundowner[employer]. states she did call the manager organizational last evening when pt became aggressive. RN CAROL advised, if situation occurs again in the future and if feels threatened/situation is dangerous that calling 911 again would be the safest. also provided w/contact info for 24-hr crisis hotline @ [facility] and contact info for -[facility]. Dipesh SHIPLEY RN, CM
--- NOTE | 2022-06-18 16:10 | CASEMGMT ---
RN CAROL POSTER CM to room to meet with patient for initial transition planning/care coordination assessment. PENNY MEDINA introduced self and role at [facility].? Pt voices understanding and consents to assessment at this time.? Pt resting in bed in no distress at this time.? is not present in room and pt states is not sure if she will be returning this evening. Pt is A/O at this time and answers all questions appropriately.?? Care providers, pharmacy, and demographics verified/updated at this time.? PCP:?Dr Goddard Specialists:?CLAUDY Johnson. Pt states he has been going to [facility] in [place] and has been working w/the coordinator Kirstin. Preferred Pharmacy:?[facility] Insurance:?Anza Prescription Benefit:?Yes LNOK:?, [place] Living Arrangements:?Lives w/ and 13-yr-old dtr in one-story home w/one step to enter. Pt states he is independent. Transportation:? DME:Has a functioning glucometer w/supplies, BP machine HHC/SNF:?No hx of either. No needs identified. PLAN:??Home Dipesh SHIPLEY RN, CM?
[2022-06-18] MEDS: metroNIDAZOLE 500 MG Tablet PO ×2 (16:56→17:50)
[2022-06-18] MEDS: Ibuprofen 400 MG Tablet PO (18:23)
--- NOTE | 2022-06-18 19:19 | NURSING ---
Pt experiencing increased confusion. Provided unneeded urine sample in sputum specimen cup.
[2022-06-18 20:10] VITALS: BP 120/86; PULSE 80; RESP 18; TEMP 36.7; O2SAT 98
[2022-06-18] MEDS: Sertraline 50 MG Tablet PO (20:10)
[2022-06-18] MEDS: Benzonatate 100 MG Capsule PO (22:21)
[2022-06-19] MEDS: guaiFENesin 1,200 MG Tablet 1200 MG PO ×3 (00:33→21:50)
[2022-06-19] MEDS: metroNIDAZOLE 500 MG Tablet PO (01:18)
--- NOTE | 2022-06-19 01:20 | NURSING ---
Pt continues to display behaviors. Pt stated I threw up, there is blood in it. Upon inspection of toilet contents this nurse visualized a fruit cup lid, saltine cracker wrapper, and part of an [employer] document. No blood noted at this time. Will continue to monitor.
[2022-06-19] MEDS: Ondansetron 4 MG/2 ML Vial IV ×3 (01:38→23:34)
[2022-06-19] MEDS: 0.9% Saline Lock 10 ML Syringe IV ×3 (01:38→23:34)
[2022-06-19 02:26] VITALS: BP 112/59; PULSE 90; RESP 18; TEMP 36.7; O2SAT 98
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
[2022-06-19 06:59] LABS: Absolute Lymphocyte Count 0.27 X10^3/uL (0.83-4.51); Absolute Neutrophil Count 6.1 X10^3/uL (2.0-7.7); Basophil# 0.03 X10^3/uL; Basophil% 0.4 % (0-1); Eosinophil# 0.07 X10^3/uL; Eosinophils% 0.9 % (0-5); Hemoglobin 11.2 g/dL (13.0-16.5); Lymphocyte # 0.27 X10^3/ul (0.83-4.51); Lymphocyte % 3.6 % (19-41); Mean Corp Hgb Conc 36.1 g/dL (32-36); Mean Corpuscular Hgb 40.1 pg (27.0-32.0); Mean Corpuscular Volume 111.1 fL (80-94); Mean Platelet Vol. 9.8 fl (6.2-12.0); Monocyte# 0.91 X10^3/uL; Monocyte% 12.3 % (0-10); NRBC Flagged by Analyzer 0 % (0-5); Neutrophil % 82.4 % (47-70); POSITIVE COUNT YES; POSITIVE DIFFERENTIAL YES; Platelet Count 84 K/mm3 (150-450); RBC Distribution Width SD 53.5 fl (35.1-43.9); Red Blood Count 2.79 M/mm3 (4.6-6.2); White Blood Count 7.4 K/mm3 (4.4-11.0)
[2022-06-19 07:00] LABS: Differential Indicated SCAN CRITERIA MET
[2022-06-19 07:15] LABS: Macrocytosis 2+
[2022-06-19 07:16] LABS: Platelet Estimate MOD DEC (ADEQ)
[2022-06-19 07:21] VITALS: O2SAT 98
[2022-06-19 07:29] LABS: ALB/GLOB Ratio 0.7 RATIO (0.9-2.4); AST(SGOT) 126 U/L (15-37); Alanine Aminotransfer ALT/SGPT 58 U/L (16-61); Albumin, Serum 2.6 g/dL (3.2-5.0); Alkaline Phosphatase 177 U/L (45-117); Anion Gap 8 (5-15); BUN 14 mg/dL (7-18); BUN/Creat Ratio 10.9 RATIO (10-20); Calcium,Total 8.6 mg/dL (8.5-10.1); Chloride 92 mmol/L (98-107); Creatinine, Serum 1.29 mg/dL (0.70-1.30); EST Glomerular Filtration Rate 63 mL/min (>60); Est Glom Filt Rate - Afr Amer 76 mL/min (>60); Estimated Creatinine Clearance 69.28 ml/min; Globulin 3.8 g/dL (2.2-4.2); Glucose 104 mg/dL (74-106); Potassium 4.4 mmol/L (3.5-5.1); Protein, Total 6.4 g/dL (6.4-8.2); Sodium Level 127 mmol/L (136-145)
[2022-06-19 09:28] VITALS: BP 111/60; PULSE 98; RESP 16; TEMP 36.9; O2SAT 96
[2022-06-19] MEDS: Lactulose 20 GM/30 ML UDC PO ×4 (09:34→21:50)
[2022-06-19] MEDS: Furosemide 40 MG Tablet PO (09:34)
[2022-06-19] MEDS: Pantoprazole Sodium 40 MG Tablet PO (09:35)
[2022-06-19] MEDS: Spironolactone 50 MG Tablet PO (09:35)
[2022-06-19] MEDS: Thiamine Hydrochloride 100 MG Tablet 200 MG PO ×2 (09:36→21:50)
[2022-06-19] MEDS: rifAXIMin 550 MG Tablet PO ×2 (09:38→21:50)
--- NOTE | 2022-06-19 10:46 | PN.HOSP_ITS ---
Subjective Subjective Patient seen and examined. Per the nurses he was confused yesterday. He complains of vomiting overnight, and says there were traces of blood overnight. Review of systems is otherwise negative. He remains on lactulose. Objective Data Objective Data Vital Signs: Vital Signs Temp Pulse Resp BP Pulse Ox O2 Del Method 98.4 F 98 16 111/60 96 Room Air 06/19/22 09:28 06/19/22 09:28 06/19/22 09:28 06/19/22 09:28 06/19/22 09:28 06/19/22 09:28 Oxygen Delivery Method Room Air Weight: 154 lb 3.2 oz Body Mass Index (BMI) 22.7 Lab / Micro Data Result Diagrams: 06/19/22 06:20 06/19/22 06:20 Labs: Laboratory Results - last 24 hr 06/19/22 06:20: WBC 7.4, RBC 2.79 L, Hgb 11.2 L, Hct 31.0 L, MCV 111.1 H, MCH 40.1 H, MCHC 36.1 H, RDW Std Deviation 53.5 H, RDW Coeff of Kaela 13.0, Plt Count 84 L, MPV 9.8, Immature Gran % (Auto) 0.400, Neut % (Auto) 82.4 H, Lymph % (Auto) 3.6 L, [place] % (Auto) 12.3 H, Eos % (Auto) 0.9, Baso % (Auto) 0.4, Absolute Neuts (auto) 6.1, Absolute Lymphs (auto) 0.27 L, Nucleated RBC % 0, Platelet Estimate MOD DEC, Macrocytosis 2+ 06/19/22 06:20: Sodium 127 L, Potassium 4.4, Chloride 92 L, Carbon Dioxide 27.0, Anion Gap 8, BUN 14, Creatinine 1.29, Estim Creat Clear Calc 69.28, Est GFR (MDRD) Af Amer 76, Est GFR (MDRD) Non-Af 63, BUN/Creatinine Ratio 10.9, Glucose 104, Calcium 8.6, Total Bilirubin 5.30 H, AST 126 H, ALT 58, Alkaline Phosphatase 177 H, Total Protein 6.4, Albumin 2.6 L, Globulin 3.8, Albumin/Globulin Ratio 0.7 L Physical Exam Const alert, oriented x3 and no apparent distress Orientation / Consciousness: confused HEENT head/scalp atraumatic, moist oral mucous membranes and oropharynx normal HEENT Narrative: jaundiced Head and Scalp: normocephalic Mouth: oral and palatal mucosa normal Eyes PERRL, EOMs intact bilaterally and conjunctivae normal Neck no lymphadenopathy, supple and no JVD Resp normal respiratory effort, no retractions, no use of accessory muscles and clear to auscultation bilaterally Cardio regular rate, regular rhythm, S1 normal heart sound, S2 normal heart sound and no murmurs GI normal to inspection, nondistended, normoactive bowel sounds, soft to palpation, non-tender and non-distended Extremity normal to inspection, full ROM and no clubbing, cyanosis or edema Neuro oriented x3, CN's II-XII intact bilaterally, moves all extremities and no focal motor deficits Neuro Narrative: minimal asterixis Sensorium / Orientation: awake and alert Motor Exam: strength 5/5 throughout Psych affect normal Assessment & Plan Assessment/Plan (1) Metabolic encephalopathy: (2) Cirrhosis: PLAN: Plan #Acute hepatic encephalopathy * on lactulose. Titrate to achieve at least 2-3 loose stools daily * check urine tox * on thiamine due to concerns about Wernicke's encephalopathy. * trazodone and scopolamine patch on hold * GI on board. MELD score is 16 * being evaluated at [facility] for liver transplant * CT of the brain showed no acute intracranial pathology * Cirrhosis due to alcohol dependence and fatty liver * on lactulose as above * management as above * #THrombocytopenia: platelets are 84 today, down from 100. Likely due to alcoholic liver cirrhosis. Hold lovenox #DVT prophylaxis: on SCDs. Charges/Coding Visit Charges Inpatient E&M: 39651 Subs Hosp L2
[2022-06-19 14:42] VITALS: BP 122/69; PULSE 98; RESP 16; TEMP 37.3; O2SAT 98
[2022-06-19] MEDS: Sertraline 50 MG Tablet PO (21:50)
[2022-06-19 23:00] VITALS: BP 104/60; PULSE 90; RESP 18; TEMP 37; O2SAT 99
[2022-06-20 05:00] VITALS: BP 106/64; PULSE 84; RESP 16; TEMP 37.4; O2SAT 95
[2022-06-20 06:15] LABS: Absolute Lymphocyte Count 0.78 X10^3/uL (0.83-4.51); Absolute Neutrophil Count 4.4 X10^3/uL (2.0-7.7); Basophil# 0.01 X10^3/uL; Basophil% 0.2 % (0-1); Hematocrit 29.8 % (40-54); Hemoglobin 10.8 g/dL (13.0-16.5); Lymphocyte # 0.78 X10^3/ul (0.83-4.51); Lymphocyte % 12.8 % (19-41); Mean Corp Hgb Conc 36.2 g/dL (32-36); Mean Corpuscular Hgb 39.6 pg (27.0-32.0); Mean Corpuscular Volume 109.2 fL (80-94); Mean Platelet Vol. 9.7 fl (6.2-12.0); Monocyte# 0.91 X10^3/uL; NRBC Flagged by Analyzer 0 % (0-5); Neutrophil # 4.37 X10^3/uL (2.7-7.7); Neutrophil % 71.8 % (47-70); POSITIVE COUNT YES; Platelet Count 77 K/mm3 (150-450); RBC Distribution Width CV 13.2 % (11.6-14.6); RBC Distribution Width SD 52.5 fl (35.1-43.9); Red Blood Count 2.73 M/mm3 (4.6-6.2); White Blood Count 6.1 K/mm3 (4.4-11.0)
[2022-06-20] MEDS: BENZOCAINE/MENTHOL 1 LOZENGE MUCOUS MEM ×3 (06:21→17:45)
[2022-06-20 06:42] LABS: ALB/GLOB Ratio 0.7 RATIO (0.9-2.4); AST(SGOT) 282 U/L (15-37); Alanine Aminotransfer ALT/SGPT 102 U/L (16-61); Albumin, Serum 2.6 g/dL (3.2-5.0); Alkaline Phosphatase 129 U/L (45-117); Anion Gap 6 (5-15); BUN 14 mg/dL (7-18); BUN/Creat Ratio 12.7 RATIO (10-20); Calcium,Total 8.2 mg/dL (8.5-10.1); Chloride 95 mmol/L (98-107); EST Glomerular Filtration Rate 76 mL/min (>60); Est Glom Filt Rate - Afr Amer 92 mL/min (>60); Estimated Creatinine Clearance 81.25 ml/min; Globulin 3.8 g/dL (2.2-4.2); Glucose 104 mg/dL (74-106); Potassium 4.1 mmol/L (3.5-5.1); Protein, Total 6.4 g/dL (6.4-8.2); Sodium Level 127 mmol/L (136-145)
[2022-06-20 07:40] VITALS: O2SAT 94
--- NOTE | 2022-06-20 08:09 | PN.HOSP_ITS ---
Subjective Subjective Reports his HE is acting up and said he tried to order his test medium or this morning and thought he was going to run a marathon. Reports waxing and waning and is unsure how he is doing compared to when he presented. Nausea is improving with Zofran as needed. Denies shortness of breath but does have slight cough with occasional sputum, reports because of his cough and his nausea and vomiting previously his throat has been sore but cough drop is helped this significantly. Denies any chest pain. Reports he is having bowel movements, no blood. No further episodes of emesis with blood. Objective Data Objective Data Vital Signs: Vital Signs Temp Pulse Resp BP Pulse Ox O2 Del Method 99.4 F H 84 16 106/64 94 Room Air 06/20/22 05:00 06/20/22 05:00 06/20/22 05:00 06/20/22 05:00 06/20/22 07:40 06/20/22 07:40 Oxygen Delivery Method Room Air Weight: 69.944 kg Body Mass Index (BMI) 22.7 Lab / Micro Data Result Diagrams: 06/20/22 06:06 06/20/22 06:06 Labs: Laboratory Results - last 24 hr 06/20/22 06:06: WBC 6.1, RBC 2.73 L, Hgb 10.8 L, Hct 29.8 L, MCV 109.2 H, MCH 39.6 H, MCHC 36.2 H, RDW Std Deviation 52.5 H, RDW Coeff of Kaela 13.2, Plt Count 77 L, MPV 9.7, Immature Gran % (Auto) 0.200, Neut % (Auto) 71.8 H, Lymph % (Auto) 12.8 L, [place] % (Auto) 15.0 H, Eos % (Auto) 0.0, Baso % (Auto) 0.2, Absolute Neuts (auto) 4.4, Absolute Lymphs (auto) 0.78 L, Nucleated RBC % 0 06/20/22 06:06: Sodium 127 L, Potassium 4.1, Chloride 95 L, Carbon Dioxide 26.0, Anion Gap 6, BUN 14, Creatinine 1.10, Estim Creat Clear Calc 81.25, Est GFR (MDRD) Af Amer 92, Est GFR (MDRD) Non-Af 76, BUN/Creatinine Ratio 12.7, Glucose 104, Calcium 8.2 L, Total Bilirubin 4.00 H, AST 282 H, ALT 102 H, Alkaline Phosphatase 129 H, Total Protein 6.4, Albumin 2.6 L, Globulin 3.8, Albumin/Globulin Ratio 0.7 L Physical Exam Const alert Constitutional Narrative: Is oriented to person, place, time but has subjective confusion HEENT normocephalic and head/scalp atraumatic Eyes Eyes Narrative: EOM grossly intac Neck supple Resp normal respiratory effort and clear to auscultation bilaterally Cardio regular rate and regular rhythm GI soft to palpation, non-tender and non-distended Extremity Extremity Narrative: No edema appreciated Neuro moves all extremities Neuro Narrative: No overt focal deficits appreciated, does have tremor that worsens with outstr etched hands and cocked wrists Psych Psych Narrative: Cooperative Assessment & Plan Assessment/Plan (1) Metabolic encephalopathy: (2) Cirrhosis: PLAN: Plan #Acute hepatic encephalopathy in setting of cirrhosis due to alcohol dependence and fatty liver On lactulose, titrate to achieve 2-3 loose stools daily On rifaximin GI following Meld is 16 and he is being evaluated at [facility] for liver transplant CT brain showed no intracranial pathology Trazodone and scopolamine have been held On thiamine We will recheck ammonia as he reports subjective worsening of his mental status No signs symptoms of infection, no evidence of GI bleed at this time GI recommended neomycin and Flagyl well, will verify dosing prior to beginning these #Hyponatremia Hold Zoloft Trend #Thrombocytopenia Likely due to his liver cirrhosis Lovenox has been held #DVT ppx: SCDs Galina Garcia MD Charges/Coding Visit Charges Inpatient E&M: 37283 Subs Hosp L2
[2022-06-20 08:23] LABS: Vitamin D,25 Hydroxy 54.1 ng/mL
[2022-06-20 09:02] LABS: Vitamin B12 > 2000 pg/mL (211-911)
[2022-06-20 09:08] VITALS: BP 103/70; PULSE 89; RESP 18; TEMP 36.8; O2SAT 98
[2022-06-20] MEDS: Furosemide 40 MG Tablet PO (09:24)
[2022-06-20] MEDS: Pantoprazole Sodium 40 MG Tablet PO (09:24)
[2022-06-20] MEDS: Benzonatate 100 MG Capsule PO ×2 (09:24→17:45)
[2022-06-20] MEDS: guaiFENesin 1,200 MG Tablet 1200 MG PO (09:24)
[2022-06-20] MEDS: Thiamine Hydrochloride 100 MG Tablet 200 MG PO (09:24)
[2022-06-20] MEDS: Lactulose 20 GM/30 ML UDC PO ×3 (09:25→17:45)
[2022-06-20] MEDS: rifAXIMin 550 MG Tablet PO (09:25)
[2022-06-20] MEDS: Spironolactone 50 MG Tablet PO (09:26)
--- NOTE | 2022-06-20 10:48 | NURSING ---
0900: spouse at bedside, states that their daughter is ill with influzena A
--- NOTE | 2022-06-20 10:55 | CASEMGMT ---
RN CM NOTE: Noted Dr Ginny ATN stated to check urine drug screen but no order found at this time. Dr Garcia notified and states would like this done. Order entered at this time. Dipesh SHIPLEY RN CM
[2022-06-20 14:40] LABS: Amphetamine Urine VISTA NEGATIVE (<1000 ng/mL); Barbiturate Urine VISTA NEGATIVE (< 200 ng/mL); Benzodiazepine Urine VISTA NEGATIVE (< 200 ng/mL); Cocaine Urine VISTA NEGATIVE (< 300 ng/mL); Ecstacy Urine VISTA NEGATIVE (< 500 ng/mL); Methadone Urine VISTA NEGATIVE (< 300 ng/mL); PCP Urine VISTA NEGATIVE (< 25 ng/mL); THC Urine VISTA POSITIVE (< 50 ng/mL); Vista UDS pH Range 6
[2022-06-20 14:45] VITALS: BP 99/60; PULSE 91; RESP 18; TEMP 37.9; O2SAT 96
[2022-06-20] MEDS: metroNIDAZOLE 500 MG Tablet PO (14:47)
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
--- NOTE | 2022-06-20 16:09 | CM.ED ---
KIRA was advised by RN CAROL that patient is positive for influenza A. KIRA called [facility] ([facility]). Patient can come 5 days from date of test. KIRA called [facility]. Spoke to Junior. Junior said unless your hospital has a nurse quality policy they can come anytime. Mallory COWART
--- NOTE | 2022-06-20 16:40 | PN_ITS ---
Subjective Subjective Patient had a low-grade fever today. He denies any chills. He denies any abdominal pain. He denies any dysuria, hematuria or abdominal distention. He denies any cough. Objective Data Objective Data Vital Signs: Vital Signs Temp Pulse Resp BP Pulse Ox O2 Del Method 100.3 F H 91 18 99/60 96 Room Air 06/20/22 14:45 06/20/22 14:45 06/20/22 14:45 06/20/22 14:45 06/20/22 14:45 06/20/22 14:45 Oxygen Delivery Method Room Air Weight: 154 lb 3.2 oz Body Mass Index (BMI) 22.7 Lab / Micro Data Result Diagrams: 06/20/22 06:06 06/20/22 06:06 Labs: Laboratory Results - last 24 hr 06/18/22 06:10: Vitamin B12 > 2000 H 06/18/22 06:10: Vitamin D 25-Hydroxy 54.1 06/20/22 06:06: WBC 6.1, RBC 2.73 L, Hgb 10.8 L, Hct 29.8 L, MCV 109.2 H, MCH 39.6 H, MCHC 36.2 H, RDW Std Deviation 52.5 H, RDW Coeff of Kaela 13.2, Plt Count 77 L, MPV 9.7, Immature Gran % (Auto) 0.200, Neut % (Auto) 71.8 H, Lymph % (Auto) 12.8 L, [place] % (Auto) 15.0 H, Eos % (Auto) 0.0, Baso % (Auto) 0.2, Absolute Neuts (auto) 4.4, Absolute Lymphs (auto) 0.78 L, Nucleated RBC % 0 06/20/22 06:06: Sodium 127 L, Potassium 4.1, Chloride 95 L, Carbon Dioxide 26.0, Anion Gap 6, BUN 14, Creatinine 1.10, Estim Creat Clear Calc 81.25, Est GFR (MDRD) Af Amer 92, Est GFR (MDRD) Non-Af 76, BUN/Creatinine Ratio 12.7, Glucose 104, Calcium 8.2 L, Total Bilirubin 4.00 H, AST 282 H, ALT 102 H, Alkaline Phosphatase 129 H, Total Protein 6.4, Albumin 2.6 L, Globulin 3.8, Albumin/Globu mckayla Ratio 0.7 L 06/20/22 09:51: Ammonia 43.0 H 06/20/22 10:23: COVID-19 (FOX) Not Detected 06/20/22 14:20: Urine Opiates Screen NEGATIVE, Urine Methadone Screen NEGATIVE, Ur Barbiturates Screen NEGATIVE, Ur Phencyclidine Scrn NEGATIVE, Ur Amphetamines Screen NEGATIVE, MDMA (Ecstasy) Screen NEGATIVE, U Benzodiazepines Scrn NEGATIVE, Urine Cocaine Screen NEGATIVE, U Cannabinoids Screen POSITIVE H, Ur Drug Screen Comment Micro: Microbiology 06/20/22 10:22 Mucosa - Nose Respiratory Panel (PCR) - Final Influenza A (Subtype H1) Physical Exam Const alert Constitutional Narrative: Is oriented to person, place, time but has subjective confusion HEENT normocephalic and head/scalp atraumatic Eyes Eyes Narrative: EOM grossly intac Neck supple Resp normal respiratory effort and clear to auscultation bilaterally Cardio regular rate and regular rhythm GI soft to palpation, non-tender and non-distended Extremity Extremity Narrative: No edema appreciated Neuro moves all extremities Neuro Narrative: No overt focal deficits appreciated, does have tremor that worsens with outstretched hands and cocked wrists Psych Psych Narrative: Cooperative Assessment & Plan Assessment/Plan (1) Cirrhosis: PLAN: Alcoholic cirrhosis with a meld of 16.? 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 He is undergoing transplant evaluation at [facility] in [place].? He is not showing any signs of decompensation at this time.? His LFTs and liver enzymes actually improved.? Would recommend to continue current outpatient medicines.? He is not showing any bleeding or liver failure.? I had a long discussion with him and his regarding his marijuana usage in the setting of cirrhosis.? It does not decrease his chance of getting a liver.? However it does affect his cognition. (2) Confusion: (3) Fever: PLAN: I do not know why he is experiencing fevers. I will check blood cultures x2, urinalysis, chest x-ray and recheck a CBC along with an ammonia, lactate, CRP ESR and LDH. PLAN: Plan Recommend lactulose every 4 to 6 hours, neomycin, Flagyl and Xifaxan.? His ammonia level is going up and I suspect there will keep going up.? Hopefully this will help sterilize his gastrointestinal tract and let the lactulose worked better. Charges/Coding Visit Charges Inpatient E&M: 94895 Subs Hosp L3
[2022-06-20 17:09] LABS: Erythrocyte Sedimentation Rate 20 mm/hr (0-20)
[2022-06-20 18:04] LABS: Lactic Acid 1.2 mmol/L (0.4-1.9)
[2022-06-21] VITALS: BP 105/60; PULSE 80; RESP 16; TEMP 37.2; O2SAT 95
[2022-06-21] MEDS: Thiamine Hydrochloride 100 MG Tablet 200 MG PO ×2 (00:01→09:05)
[2022-06-21] MEDS: metroNIDAZOLE 500 MG Tablet PO ×3 (00:01→14:16)
[2022-06-21] MEDS: rifAXIMin 550 MG Tablet PO ×2 (00:02→09:05)
[2022-06-21] MEDS: guaiFENesin 1,200 MG Tablet 1200 MG PO ×2 (00:02→09:05)
[2022-06-21] MEDS: Oseltamivir Phosphate 75 MG Capsule PO ×2 (00:02→09:05)
[2022-06-21] MEDS: Lactulose 20 GM/30 ML UDC PO ×4 (00:03→18:01)
[2022-06-21] MEDS: Ondansetron 4 MG/2 ML Vial IV (00:03)
[2022-06-21] MEDS: BENZOCAINE/MENTHOL 1 LOZENGE MUCOUS MEM ×2 (01:25→04:55)
[2022-06-21 06:33] LABS: Absolute Neutrophil Count 3.4 X10^3/uL (2.0-7.7); Basophil# 0.02 X10^3/uL; Basophil% 0.4 % (0-1); Eosinophil# 0.01 X10^3/uL; Eosinophils% 0.2 % (0-5); Hematocrit 32.4 % (40-54); Hemoglobin 11.9 g/dL (13.0-16.5); Lymphocyte % 14.1 % (19-41); Mean Corp Hgb Conc 36.7 g/dL (32-36); Mean Corpuscular Hgb 40.6 pg (27.0-32.0); Mean Corpuscular Volume 110.6 fL (80-94); Mean Platelet Vol. 9.9 fl (6.2-12.0); Monocyte# 0.82 X10^3/uL; Monocyte% 16.5 % (0-10); NRBC Flagged by Analyzer 0 % (0-5); Neutrophil # 3.39 X10^3/uL (2.7-7.7); Neutrophil % 68.4 % (47-70); POSITIVE COUNT YES; Platelet Count 76 K/mm3 (150-450); RBC Distribution Width CV 13.2 % (11.6-14.6); RBC Distribution Width SD 53.3 fl (35.1-43.9); Red Blood Count 2.93 M/mm3 (4.6-6.2)
[2022-06-21 07:14] LABS: ALB/GLOB Ratio 0.6 RATIO (0.9-2.4); AST(SGOT) 291 U/L (15-37); Alanine Aminotransfer ALT/SGPT 109 U/L (16-61); Albumin, Serum 2.6 g/dL (3.2-5.0); Alkaline Phosphatase 124 U/L (45-117); Anion Gap 7 (5-15); BUN 13 mg/dL (7-18); BUN/Creat Ratio 11.4 RATIO (10-20); Calcium,Total 8.2 mg/dL (8.5-10.1); Chloride 95 mmol/L (98-107); Creatinine, Serum 1.14 mg/dL (0.70-1.30); EST Glomerular Filtration Rate 73 mL/min (>60); Est Glom Filt Rate - Afr Amer 88 mL/min (>60); Glucose 111 mg/dL (74-106); Potassium 3.7 mmol/L (3.5-5.1); Protein, Total 6.6 g/dL (6.4-8.2); Sodium Level 129 mmol/L (136-145)
[2022-06-21 09:00] VITALS: BP 109/62; PULSE 79; RESP 18; TEMP 37; O2SAT 97
--- NOTE | 2022-06-21 09:04 | NURSING ---
poor cough hygiene
[2022-06-21] MEDS: Pantoprazole Sodium 40 MG Tablet PO (09:05)
[2022-06-21] MEDS: Spironolactone 50 MG Tablet PO (09:05)
[2022-06-21] MEDS: Furosemide 40 MG Tablet PO (09:05)
[2022-06-21] MEDS: Benzonatate 100 MG Capsule PO (09:05)
--- NOTE | 2022-06-21 09:07 | NURSING ---
while in room, pt states he is going to call his spouse to bring in his lap top. while on telephone, pt states to his spouse i am just feeling lethargic and confused. my pain is about a 2. once pt done with conversation on cellphone, inquired to pt as to what he meant by feeling confused. pt states i dont know and then stares off blankly similar to yesterday morning. pt a&o x3. alert, awake, cooperative. states generalized malaise from INfluenza.
--- NOTE | 2022-06-21 09:10 | NURSING ---
pt reports that soda tastes off. inquired further, pt states he prefers gatorade with his chronulac, pt states he will ask his to bring some in for him. pt states my taste has been off for several months now, that is not new.
--- NOTE | 2022-06-21 09:12 | NURSING ---
pt now sharing that i don't know how i am going to pay for this stay. i just took at $20,000 pay cut. informed pt that said nurse will let CM/SW know of pt concerns.
--- NOTE | 2022-06-21 11:54 | CASEMGMT ---
Social Work Dr. Garcia completed rounds at this time. Stated conducted some testing with pt and feels he is medically clear for a psych evaluation. Dr. susana Tejada, ED SW, come to evaluate pt based on conversation from yesterday. This SW called Mallory to convey request from Dr. Rodgers voicemail. PLAN: Evaluation from ED MELISSA Lechuga
[2022-06-21 14:12] VITALS: BP 105/60; PULSE 76; RESP 18; TEMP 37.2; O2SAT 96
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
--- NOTE | 2022-06-21 14:41 | CM.ED ---
KIRA met with to assist with collateral information. See assessment. KIRA faxed referral to [facility] for review. KIRA called [facility] and advised that SW was faxing a referral for review. Mallory COWART
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
--- NOTE | 2022-06-21 16:27 | CM.ED ---
KIRA called [facility]. They will review the referral. KIRA faxed the referral. [facility] is requiring 5 days from day of positive test for placement. Hakeem Mccullough is stating patient needs to be asymptomatic and 5 days from test [facility] is unable to take patient due to positive flu test [facility] is unable to take patient due to positive flu test KIRA called [facility]. They have no beds. KIRA called [facility]. They said to fax referral. [facility] declined patient due to influenza a positive. KIRA spoke to [facility]. They will review the chart. KIRA faxed referral to [facility] received call from [facility]. THey declined patient due to medical issues (influenza a).
--- NOTE | 2022-06-21 17:48 | NURSING ---
Calli Myles just phoned and states accepted patient. state pt accepted by Olinda Montoya CNP. States to please fax pink slip to [phone] and then arrange transportation and then to call nurse to nurse report to [phone] and let them know of ETA for transportation.
--- NOTE | 2022-06-21 17:58 | CM.ED ---
Addendum entered by Mallory Mallory 06/21/22 18:17: RN will update patient's . Transport coming in 30 minutes. SW reviewed pink slip. Plan: [facility] Original Note: Lyly from [facility] called and stated [facility] accepted patient.Accepting MD is Jan. Patient is going to 2nd floor. Staff on [facility] to arrange transport. KIRA called [facility] and advised that placement had been secured for patient. Plan: [facility]
[2022-06-21 18:04] VITALS: BP 102/63; PULSE 82; RESP 18; TEMP 37.1; O2SAT 94
--- NOTE | 2022-06-21 18:04 | DCINST_ITS ---
Discharge Instructions Diet Discharge Diet: - (Sodium restricted) Activity Discharge Activity: Return to Normal Activity Follow Up Care Test Results: Test results from this visit will be discussed in further detail at your follow- up appointment, if applicable. Discharge Plan Admission Admit Date/Time: 06/17/22 21:48 Primary Reason for Your Visit: Behavioral changes Attending Provider: Galina Garcia Primary Care Provider: Ita Goddard Consulting Providers: Nemesio Beltran ; Nate Martinez ; Tara Gross Instructions Patient Instructions: Cirrhosis of Liver Dc Discharge Orders/Prescriptions Prescriptions: New thiamine HCl (vitamin B1) [Vitamin B-1] 100 mg Tablet 200 mg PO BID Qty: 60 0RF metronidazole 500 mg Tablet 500 mg PO Q8 Qty: 0 0RF oseltamivir 75 mg Capsule 75 mg PO BID 4 Days Qty: 8 0RF Continued cyanocobalamin (vitamin B-12) 1,000 mcg capsule 1,000 mcg PO DAILY cholecalciferol (vitamin D3) 25 mcg (1,000 unit) capsule 25 mcg PO DAILY pantoprazole 40 mg tablet,delayed release (DR/EC) See Rx Instructions .ROUTE .COMPLEX Qty: 30 0RF Dose Instruction: take 1 tablet by mouth once daily Rx Instructions: take 1 tablet by mouth once daily folic acid 1 mg tablet 1 mg PO DAILY Qty: 90 3RF spironolactone 50 mg tablet 50 mg PO DAILY Qty: 90 3RF lactulose 20 gram/30 mL solution See Rx Instructions .ROUTE .COMPLEX Qty: 1200 11RF Dose Instruction: take 30 milliliter by mouth four times a day Rx Instructions: take 30 milliliter by mouth four times a day furosemide 40 mg tablet See Rx Instructions .ROUTE .COMPLEX Qty: 30 11RF Dose Instruction: take 1 tablet by mouth once daily Rx Instructions: take 1 tablet by mouth once daily Xifaxan 550 mg tablet See Rx Instructions .ROUTE .COMPLEX Qty: 60 11RF Dose Instruction: take 1 tablet by mouth twice a day Rx Instructions: take 1 tablet by mouth twice a day ondansetron 4 mg tablet,disintegrating See Rx Instructions .ROUTE .COMPLEX Qty: 90 2RF Dose Instruction: dissolve 1 tablet ON TONGUE every 6 hours if needed for nausea OR vomiting Rx Instructions: dissolve 1 tablet ON TONGUE every 6 hours if needed for nausea OR vomiting Discontinued sertraline 50 mg tablet 50 mg PO HS Qty: 30 2RF Cbd Gummies 1 gummy PO/SL DAILY trazodone 50 mg tablet 50 mg PO QHS PRN (Reason: sleep) Qty: 20 1RF scopolamine base 1 mg over 3 days patch 3 day 1 patch transdermal Q3D Qty: 10 2RF metronidazole [Flagyl] 375 mg capsule 375 mg PO TID Qty: 90 11RF prochlorperazine [Compazine] 25 mg suppository 25 mg CA BID PRN (Reason: nausea and vomiting) Qty: 14 1RF Referrals / Follow Up: Ita Goddard MD [Primary Care Provider] - Disposition Disposition (needs filled in before D/C Order can be placed): Psychiatric Hospital or Unit
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
--- NOTE | 2022-06-21 18:13 | NURSING ---
pt states i was hearing claire in my head today, so i watched luis felipe rangel's day off today but it didn't help.
--- NOTE | 2022-06-21 18:32 | NURSING ---
nurse to nurse report given to Mame at [facility].
--- NOTE | 2022-06-21 18:36 | NURSING ---
phoned pt spouse Nicolle and updated on status
--- NOTE | 2022-06-22 17:27 | CM.ED ---
Patient's , Nicolle called [facility] and requested to speak to director social welfare. SW called Nicolle at [phone]. Nicolle stated that she got a call from psych facility in [place] and patient is acting perfectly fine in [place] and she had just spoken to the psychiatrist and they were going to observe him overnight tonight but plan for discharge tomorrow. Nicolle said that her father was telling her to get a restraining order but she said that she did not want to do that and voiced if she could do that as patient has a medical issue. Nicolle said that friends have voiced that they could stay with them if needed. SW attempted to problem solve with Nicolle including could Nicolle and daughter go to a hotel or could patient go to hotel. Nicolle voiced concern that she had never seen patient act like he had and wants to ensure her and her child's safety. KIRA advised the only resources this designer writer has is the prison or [facility]. Nicolle said that a friend has stated that they will stay with them. KIRA also provided phone number for [facility] at [facility]. SW also encouraged Nicolle to look at psychiatric services for patient and she voiced that she had thought about counseling for patient. KIRA provided her with phone number for [facility] and SW recommended she call and make an appointment. KIRA advised that hospital is always available / and if in crisis she needs to call 911. Plan: Resources provided to . Mallory COWART
== END 2022-06-21 18:50 | DRG 71 ==
LOC: ED 21:40 → MS3 06-18 07:36
PROVIDERS: Internal Medicine Gastroenterology; Student in an Organized Health Care Education/Training Program; Admitting Provider Hospitalist; Emergency Provider Emergency Medicine; PCP Internal Medicine; Visit Provider Internal Medicine
DX: G93.41 Metabolic encephalopathy (principal); F05 Delirium due to known physiological condition; E87.1 Hypo-osmolality and hyponatremia; E51.2 Wernicke's encephalopathy; Z76.82 Awaiting organ transplant status; D69.6 Thrombocytopenia, unspecified; K76.82 Hepatic encephalopathy; K70.30 Alcoholic cirrhosis of liver without ascites; E11.9 Type 2 diabetes mellitus without complications; F10.21 Alcohol dependence, in remission; I10 Essential (primary) hypertension; E80.7 Disorder of bilirubin metabolism, unspecified; J11.1 Influenza due to unidentified influenza virus with other respiratory manifestations; F41.0 Panic disorder [episodic paroxysmal anxiety]; Z87.891 Personal history of nicotine dependence
CPT/HCPCS: 36415; 80048; 80053; 80076; 80307; 82140; 82306; 82607; 82746; 83605; 84443; 85025; 85652; 86140; 87040; 87633; 87635; 97802; 99285; A4216; J2405; U0003; U0005

== ENCOUNTER → 2022-06-24 | Outpatient (CLI) | payer BC, SELFPAY ==
[2022-06-24 16:24] LABS: Absolute Lymphocyte Count 1.02 X10^3/uL (0.83-4.51); Absolute Neutrophil Count 2.3 X10^3/uL (2.0-7.7); Basophil# 0.01 X10^3/uL; Basophil% 0.3 % (0-1); Eosinophil# 0.06 X10^3/uL; Eosinophils% 1.5 % (0-5); Hematocrit 37.9 % (40-54); Hemoglobin 13.5 g/dL (13.0-16.5); Lymphocyte # 1.02 X10^3/ul (0.83-4.51); Lymphocyte % 25.6 % (19-41); Mean Corp Hgb Conc 35.6 g/dL (32-36); Mean Corpuscular Hgb 39.7 pg (27.0-32.0); Mean Corpuscular Volume 111.5 fL (80-94); Mean Platelet Vol. 9.3 fl (6.2-12.0); Monocyte% 15.1 % (0-10); NRBC Flagged by Analyzer 0 % (0-5); Neutrophil # 2.28 X10^3/uL (2.7-7.7); Neutrophil % 57.2 % (47-70); POSITIVE COUNT YES; Platelet Count 96 K/mm3 (150-450); RBC Distribution Width CV 13.3 % (11.6-14.6); RBC Distribution Width SD 54.8 fl (35.1-43.9)
[2022-06-24 16:29] LABS: International Normalized Ratio 1.7; Prothrombin Time (Protime)PT. 19.2 SECONDS (11.7-14.9)
[2022-06-24 16:32] LABS: ALB/GLOB Ratio 0.7 RATIO (0.9-2.4); AST(SGOT) 232 U/L (15-37); Alanine Aminotransfer ALT/SGPT 109 U/L (16-61); Albumin, Serum 3.1 g/dL (3.2-5.0); Alkaline Phosphatase 211 U/L (45-117); Anion Gap 5 (5-15); BUN 15 mg/dL (7-18); BUN/Creat Ratio 11.6 RATIO (10-20); Calcium,Total 9.1 mg/dL (8.5-10.1); Chloride 95 mmol/L (98-107); Creatinine, Serum 1.29 mg/dL (0.70-1.30); EST Glomerular Filtration Rate 63 mL/min (>60); Est Glom Filt Rate - Afr Amer 76 mL/min (>60); Globulin 4.7 g/dL (2.2-4.2); Glucose 126 mg/dL (74-106); Potassium 4.5 mmol/L (3.5-5.1); Protein, Total 7.8 g/dL (6.4-8.2); Sodium Level 131 mmol/L (136-145)
== END | disposition home or self-care (01) ==
LOC: LAB 16:02
PROVIDERS: PCP Internal Medicine; Referring Provider Internal Medicine Gastroenterology; Visit Provider Internal Medicine Gastroenterology
DX: K74.60 Unspecified cirrhosis of liver (principal)
CPT/HCPCS: 36415; 80053; 85025; 85610

== ENCOUNTER 2022-08-16 09:40 | Outpatient (RCR) | payer BC, SELFPAY ==
[2022-08-16 10:45] LABS: ALB/GLOB Ratio 0.6 RATIO (0.9-2.4); AST(SGOT) 47 U/L (15-37); Alanine Aminotransfer ALT/SGPT 27 U/L (16-61); Albumin, Serum 2.5 g/dL (3.2-5.0); Alkaline Phosphatase 267 U/L (45-117); Anion Gap 6 (5-15); BUN 14 mg/dL (7-18); BUN/Creat Ratio 13.7 RATIO (10-20); Calcium,Total 8.4 mg/dL (8.5-10.1); Chloride 102 mmol/L (98-107); Creatinine, Serum 1.02 mg/dL (0.70-1.30); EST Glomerular Filtration Rate 83 mL/min (>60); Est Glom Filt Rate - Afr Amer 100 mL/min (>60); Globulin 4.4 g/dL (2.2-4.2); Glucose 165 mg/dL (74-106); Potassium 4.3 mmol/L (3.5-5.1); Protein, Total 6.9 g/dL (6.4-8.2); Sodium Level 138 mmol/L (136-145)
== END 2022-08-16 11:00 | disposition home or self-care (01) ==
LOC: LAB 09:40
PROVIDERS: PCP Internal Medicine; Referring Provider Internal Medicine Gastroenterology; Visit Provider Internal Medicine Gastroenterology
DX: K74.60 Unspecified cirrhosis of liver
CPT/HCPCS: 36415; 80053

== ENCOUNTER 2022-09-15 13:43 | Emergency (ER) | payer BC, SELFPAY ==
[2022-09-15 13:46] VITALS: BP 118/70; PULSE 90; RESP 18; TEMP 36.9; O2SAT 97; BMI 24.5
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
--- NOTE | 2022-09-15 14:08 | CT_ITS ---
STUDY: CT CHEST, ABDOMEN T PELVIS WITH CONTRAST REASON FOR EXAM: Male, 47 years old. Injury due to a fall. Right-sided rib pain. RADIATION DOSAGE (If Supplied By Facility): CTDIvol = ( 18.20 ) mGy, DLP = ( 1512.73 ) mGycm TECHNIQUE: Transaxial imaging was performed following intravenous administration of IV 100mL [id number]. Individualized dose optimization techniques were used for this CT. COMPARISON: No relevant priors. FINDINGS: CHEST Increased markings with areas of confluence are seen at the lung bases suggestive of bibasilar atelectasis. No evidence of a pneumothorax. Normal heart and pericardium. Normal mediastinum. Normal hilar regions. Normal unenhanced pulmonary arteries. Normal aorta arch and descending thoracic aorta. There are mild degenerative changes of the thoracic spine. There is no demonstrated abnormality of the visualized upper abdomen. ABDOMEN Findings suggestive of a bibasilar atelectasis. Normal liver. Mildly distended gallbladder. There is mild splenomegaly. Normal pancreas. Normal bilateral adrenal glands. Normal right kidney. Normal left kidney. Normal visualized stomach. Normal small intestine. Large amount of fecal material is seen in the colon. Scattered sigmoid diverticula. The appendix is visualized and appears normal. Normal abdominal aorta. Normal inferior vena cava. Normal retroperitoneum. Normal abdominal wall. There are mild degenerative changes of the visualized lumbar spine. PELVIS Normal urinary bladder. Normal visualized small intestine. Normal visualized colon. There is no pelvic fluid. There is no pelvic lymphadenopathy or mass lesion. Normal visualized pelvic arteries. Normal abdominal wall. There are mild degenerative changes of the visualized lumbar spine. Old healed fractures of the right medial superior and inferior pubic rami. CT/CT Chest, Abd, Pel w/Contrast IMPRESSION: Findings suggestive of mild degree of bibasilar atelectasis. Splenomegaly. Electronically Signed: Arthur Chow MD at 15:21 EST ,
--- NOTE | 2022-09-15 14:08 | CT_ITS ---
STUDY: CT CERVICAL SPINE WITHOUT CONTRAST REASON FOR EXAM: Male, 47 years old. Injury due to a fall. RADIATION DOSAGE (If Supplied By Facility): CTDIvol = ( 20.04 ) mGy, DLP = ( 411.71 ) mGycm TECHNIQUE: High resolution transaxial imaging was performed without contrast material. Sagittal and coronal images were reconstructed. Individualized dose optimization techniques were used for this CT. COMPARISON: None FINDINGS: Patient is known to have bilateral mandibular fractures. Normal craniovertebral junction. Normal anterior atlantoaxial articulation. Normal odontoid process. Normal cervical lordosis. Normal vertebral bodies and posterior osseous elements. C2-3: Normal endplates. Normal disc height and morphology. Normal central canal and intervertebral neuroforamina. C3-4: Normal endplates. Normal disc height and morphology. Normal central canal and intervertebral neuroforamina. C4-5: Normal endplates. Normal disc height and morphology. Normal central canal and intervertebral neuroforamina. C5-6: Moderate degree of joint space narrowing. Spondylosis. Uncovertebral arthrosis. Bilateral neural foraminal stenosis worse on the right side. C6-7: Normal endplates. Normal disc height and morphology. Normal central canal and intervertebral neuroforamina. C7-T1: Normal endplates. Normal disc height and morphology. Normal central canal and intervertebral neuroforamina. Normal visualized soft tissue structures. 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 Electronically Signed: Arthur Chow MD at 15:16 EST ,
--- NOTE | 2022-09-15 14:11 | EDS_ITS ---
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 BID Qty: 60 0RF metronidazole 500 mg Tablet 500 mg PO Q8 Qty: 0 0RF pantoprazole 40 mg tablet,delayed release (DR/EC) See Rx Instructions .ROUTE .COMPLEX Qty: 30 0RF Dose Instruction: take 1 tablet by mouth once daily Rx Instructions: take 1 tablet by mouth once daily folic acid 1 mg tablet 1 mg PO DAILY Qty: 90 3RF lactulose 20 gram/30 mL solution See Rx Instructions .ROUTE .COMPLEX Qty: 1200 11RF Dose Instruction: take 30 milliliter by mouth four times a day Rx Instructions: take 30 milliliter by mouth four times a day furosemide 40 mg tablet See Rx Instructions .ROUTE .COMPLEX Qty: 30 11RF Dose Instruction: take 1 tablet by mouth once daily Rx Instructions: take 1 tablet by mouth once daily Xifaxan 550 mg tablet See Rx Instructions .ROUTE .COMPLEX Qty: 60 11RF Dose Instruction: take 1 tablet by mouth twice a day Rx Instructions: take 1 tablet by mouth twice a day trazodone 50 mg tablet See Rx Instructions PO QHS PRN (Reason: sleep) Qty: 30 1RF Rx Instructions: May take 1/2 to 1 tablet nightly as needed spironolactone 50 mg tablet 50 mg PO DAILY Qty: 90 3RF scopolamine base 1 mg over 3 days patch 3 day 1 patch transdermal Q72H Qty: 10 2RF sertraline [Zoloft] 50 mg tablet 50 mg PO DAILY Qty: 90 1RF doxepin 10 mg capsule 10 mg PO QHS PRN (Reason: sleep) Qty: 20 0RF Primary Care Provider: Ita Goddard Referrals: Ita Goddard MD [Primary Care Provider] - Disposition Disposition: Acute Care Hospital Discharge Location: [facility] Discharge Date/Time: 09/15/22 17:27
[2022-09-15] MEDS: 0.9% Normal Saline 1,000 ML 1000 ML IV (14:15)
[2022-09-15] MEDS: Ondansetron 4 MG/2 ML Vial IV (14:16)
[2022-09-15] MEDS: Morphine 4 MG/ML Syringe IV ×2 (14:16→16:59)
[2022-09-15 14:20] LABS: Bedside Glucose 111 mg/dL (74-106)
[2022-09-15 14:33] LABS: Absolute Neutrophil Count 4.8 X10^3/uL (2.0-7.7); Basophil# 0.05 X10^3/uL; Basophil% 0.6 % (0-1); Eosinophils% 6.5 % (0-5); Hematocrit 33.8 % (40-54); Hemoglobin 11.6 g/dL (13.0-16.5); Lymphocyte % 19.5 % (19-41); Mean Corp Hgb Conc 34.3 g/dL (32-36); Mean Corpuscular Hgb 37.8 pg (27.0-32.0); Mean Corpuscular Volume 110.1 fL (80-94); Mean Platelet Vol. 9.7 fl (6.2-12.0); Monocyte# 0.75 X10^3/uL; Monocyte% 9.7 % (0-10); NRBC Flagged by Analyzer 0 % (0-5); Neutrophil # 4.84 X10^3/uL (2.7-7.7); Neutrophil % 62.9 % (47-70); Platelet Count 140 K/mm3 (150-450); RBC Distribution Width CV 14.1 % (11.6-14.6); RBC Distribution Width SD 56.6 fl (35.1-43.9); Red Blood Count 3.07 M/mm3 (4.6-6.2); White Blood Count 7.7 K/mm3 (4.4-11.0)
[2022-09-15 14:37] LABS: International Normalized Ratio 1.8; Prothrombin Time (Protime)PT. 20.9 SECONDS (11.7-14.9)
[2022-09-15 14:44] VITALS: BP 130/72; PULSE 95; RESP 16; O2SAT 96
[2022-09-15 14:45] LABS: Anion Gap 10 (5-15); BUN 13 mg/dL (7-18); BUN/Creat Ratio 10.3 RATIO (10-20); Chloride 101 mmol/L (98-107); Creatinine, Serum 1.26 mg/dL (0.70-1.30); EST Glomerular Filtration Rate 65 mL/min (>60); Est Glom Filt Rate - Afr Amer 78 mL/min (>60); Glucose 110 mg/dL (74-106); Lipase 251 U/L (73-393); Potassium 4.2 mmol/L (3.5-5.1); Sodium Level 138 mmol/L (136-145)
[2022-09-15 14:51] LABS: AST(SGOT) 63 U/L (15-37); Alanine Aminotransfer ALT/SGPT 29 U/L (16-61); Albumin, Serum 2.8 g/dL (3.2-5.0); Alcohol, Blood (Medical)-Serum < 3.0 mg/dL; Alkaline Phosphatase 204 U/L (45-117); Bilirubin, Direct 1.41 mg/dL (0.00-0.30); Globulin 4.3 g/dL (2.2-4.2); Protein, Total 7.1 g/dL (6.4-8.2)
[2022-09-15] MEDS: Diphth,Pertuss(Acell),Tet Vac 0.5 ML Vial IM (15:03)
[2022-09-15 15:17] LABS: Ammonia < 10.0 umol/L (11-32)
[2022-09-15 15:39] VITALS: BP 140/87; PULSE 102; RESP 18; O2SAT 97
[2022-09-15 15:41] LABS: Bacteria 0 SEEN /hpf (None Seen); Mucous, Urine 0 SEEN /hpf (<or=2+); Red Blood Cells-Urine 0 SEEN /hpf (0-5); Squamous Epithelial Cells - UA 0 SEEN /hpf (0-5)
--- NOTE | 2022-09-15 15:47 | ED.RN ---
suctioned clots from pt's mouth.
[2022-09-15 15:54] LABS: Color, Urine Yellow (Yellow); Glucose, Dipstick Normal (Normal); Ketone-Dipstick Negative (Negative); Leukocyte Esterase-Dipstick 25 /ul (Negative); Nitrite-Dipstick Negative (Negative); Occult Blood-Urine 10 /ul (Negative); Protein-Dipstick Negative (Negative); Urine Bilirubin Dipstick Negative (Negative); Urine Clarity Clear (Clear); Urine Urobilinogen Normal (Normal)
[2022-09-15 16:44] LABS: Hyaline Cast 0-5 SEEN /lpf (0-5); White Blood Cells 0-5 SEEN /hpf (0-5)
== END 2022-09-15 17:27 | disposition short-term general hospital (02) ==
PROVIDERS: Nurse Practitioner; Emergency Provider Emergency Medicine; PCP Internal Medicine; Visit Provider Emergency Medicine
DX: S02.642A Fracture of ramus of left mandible, initial encounter for closed fracture (principal); E11.9 Type 2 diabetes mellitus without complications; S02.40CA Maxillary fracture, right side, initial encounter for closed fracture; S02.652A Fracture of angle of left mandible, initial encounter for closed fracture; S09.90XA Unspecified injury of head, initial encounter; Z87.891 Personal history of nicotine dependence; R07.81 Pleurodynia; I10 Essential (primary) hypertension; M21.931 Unspecified acquired deformity of right forearm; V00.848A Other accident with standing micro-mobility pedestrian conveyance, initial encounter; W22.09XA Striking against other stationary object, initial encounter; Z23 Encounter for immunization
CPT/HCPCS: 51702; 70450; 70486; 71260; 72125; 74177; 80048; 80076; 81001; 82077; 82140; 82962; 83690; 85025; 85610; 90471; 90715; 96361; 96374; 96375; 96376; 99285; J7030; Q9967; A4216; J2405

== ENCOUNTER 2022-09-30 09:48 | Outpatient (RCR) | payer BC, SELFPAY ==
[2022-09-30 11:16] LABS: International Normalized Ratio 1.7; Prothrombin Time (Protime)PT. 19.8 SECONDS (11.7-14.9)
[2022-09-30 11:22] LABS: ALB/GLOB Ratio 0.6 RATIO (0.9-2.4); AST(SGOT) 65 U/L (15-37); Alanine Aminotransfer ALT/SGPT 34 U/L (16-61); Albumin, Serum 2.6 g/dL (3.2-5.0); Alkaline Phosphatase 269 U/L (45-117); Anion Gap 10 (5-15); BUN 12 mg/dL (7-18); BUN/Creat Ratio 16.3 RATIO (10-20); Calcium,Total 8.8 mg/dL (8.5-10.1); Chloride 101 mmol/L (98-107); Creatinine, Serum 0.74 mg/dL (0.70-1.30); EST Glomerular Filtration Rate 121 mL/min (>60); Est Glom Filt Rate - Afr Amer 146 mL/min (>60); Glucose 111 mg/dL (74-106); Potassium 3.1 mmol/L (3.5-5.1); Protein, Total 6.6 g/dL (6.4-8.2); Sodium Level 139 mmol/L (136-145)
== END 2022-10-14 21:35 | disposition home or self-care (01) ==
LOC: LAB 09:48
PROVIDERS: PCP Internal Medicine; Referring Provider Internal Medicine Gastroenterology; Visit Provider Internal Medicine Gastroenterology
DX: K74.60 Unspecified cirrhosis of liver
CPT/HCPCS: 36415; 80053; 85610

== ENCOUNTER 2022-10-25 14:13 | Outpatient (RCR) | payer BC, SELFPAY ==
[2022-10-25 15:28] LABS: International Normalized Ratio 1.9; Prothrombin Time (Protime)PT. 21.3 SECONDS (11.7-14.9)
[2022-10-25 15:52] LABS: ALB/GLOB Ratio 0.7 RATIO (0.9-2.4); AST(SGOT) 73 U/L (15-37); Alanine Aminotransfer ALT/SGPT 32 U/L (16-61); Albumin, Serum 2.7 g/dL (3.2-5.0); Alkaline Phosphatase 237 U/L (45-117); Anion Gap 4 (5-15); BUN 8 mg/dL (7-18); BUN/Creat Ratio 10.3 RATIO (10-20); Chloride 109 mmol/L (98-107); Creatinine, Serum 0.78 mg/dL (0.70-1.30); EST Glomerular Filtration Rate 113 mL/min (>60); Est Glom Filt Rate - Afr Amer 137 mL/min (>60); Globulin 3.9 g/dL (2.2-4.2); Glucose 142 mg/dL (74-106); Potassium 3.5 mmol/L (3.5-5.1); Protein, Total 6.6 g/dL (6.4-8.2); Sodium Level 139 mmol/L (136-145)
== END 2022-11-13 01:05 | disposition home or self-care (01) ==
LOC: LAB 14:13
PROVIDERS: PCP Internal Medicine; Referring Provider Internal Medicine Gastroenterology; Visit Provider Internal Medicine Gastroenterology
DX: K74.60 Unspecified cirrhosis of liver (principal)
CPT/HCPCS: 36415; 80053; 85610

== ENCOUNTER 2022-12-01 16:28 | Emergency (ER) | payer SELFPAY ==
[2022-12-01 16:33] VITALS: BP 142/83; PULSE 99; RESP 16; TEMP 37.4; O2SAT 99; BMI 22.8
--- NOTE | 2022-12-01 16:49 | EDS_ITS ---
HPI History of Present Illness Chief Complaint: Suicidal [facility] Medical History (Updated 12/01/22 @ 21:[address] Clinton Miller, DO) Alcoholic hepatitis Carrier of hemochromatosis HFE gene mutation Cirrhosis Diabetes mellitus type 2 in nonobese Dietary restriction Former smoker Gastric reflux Gout Hepatic encephalopathy History of edema History of panic attacks History of stress test HTN (hypertension) Hx of gout Liver damage Seasonal allergies Sleep apnea Trauma Home Medications cyanocobalamin (vitamin B-12) 1,000 mcg capsule 1,000 mcg PO DAILY 09/13/21 [History Last Taken Unknown] pantoprazole 40 mg tablet,delayed release See Rx Instructions .Route .COMPLEX #30 tabs 04/04/22 [Rx Last Taken Unknown] folic acid 1 mg tablet 1 mg PO DAILY #90 tabs 05/02/22 [Rx Last Taken Unknown] furosemide 40 mg tablet See Rx Instructions .Route .COMPLEX #30 TABLETS 05/27/22 [Rx Last Taken Unknown] rifaximin 550 mg tablet (Xifaxan) See Rx Instructions .Route .COMPLEX #60 tabs 05/30/22 [Rx Last Taken Unknown] metronidazole 500 mg tablet 500 mg PO Q8 #0 tabs 06/21/22 [Rx Last Taken Unknown] thiamine HCl (vitamin B1) 100 mg tablet (Vitamin B-1) 200 mg PO BID #60 tabs 06/21/22 [Rx Last Taken Unknown] trazodone 50 mg tablet See Rx Instructions PO QHS PRN sleep #30 tabs 06/27/22 [Rx Last Taken Unknown] spironolactone 50 mg tablet 50 mg PO DAILY #90 tabs 07/12/22 [Rx Last Taken Unknown] scopolamine base 1 mg over 3 days transdermal patch 1 patch transdermal Q72H #10 ea 08/10/22 [Rx Last Taken Unknown] sertraline 50 mg tablet (Zoloft) 50 mg PO DAILY #90 tabs 08/10/22 [Rx Last Taken Unknown] doxepin 10 mg capsule 10 mg PO QHS PRN sleep #20 caps 08/21/22 [Rx Last Taken Unknown] lactulose 20 gram/30 mL oral solution See Rx Instructions .Route .COMPLEX #1,200 mL 10/05/22 [Rx Last Taken Unknown] Allergy/AdvReac Type Severity Reaction Status Date / Time pioglitazone Allergy Mild liver Verified 09/15/22 13:46 damange Family History Other CVA (cerebral vascular accident) Cancer Cirrhosis Heart disease Hypertension Thyroid disorder Surgical History History of esophagogastroduodenoscopy (EGD) History of surgery 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 States he was seen by behavioral health registered nurse prior to arrival. He states recently has been more down and depressed given his chronic liver disease. He states he does not want to be here anymore. Denies any specific plan for suicide. Denies any history of suicidal attempts. Denies any drug use. He denies any recent head trauma. Denies any abdominal pain. REVIEW OF SYSTEMS: Pertinent positives: Suicidal ideation Pertinent negatives: Homicidal ideation, auditory or visual hallucinations PHYSICAL EXAM: Nursing triage notes reviewed, Vital signs reviewed Constitutional: please see mdm HENT: MMM Eyes: Pupils equal round and reactive to light, Extraocular muscles intact, scleral icterus noted Neck: No stridor, no JVD, full neck ROM Lungs: Clear to auscultation, No wheezing or rales. No increased work of breathing, no conversational dyspnea, no accessory muscle use, no nasal flaring. No respiratory distress noted Heart: Regular rate and rhythm, No murmurs, No rubs and No gallops, 2+ distal pulses (radial, femoral, posterior tibial) in all extremities Abdomen: Soft, there is no tenderness, rigidity, rebound or guarding, no obvious peritoneal signs, no palpable pulsatile abdominal masses, no auscultated abdominal bruit : No CVAT Extremities: No edema Neuro: No focal neurological deficits, cranial nerves II through XII intact, 5/5 strength in all extremities. Intact sensation to light touch in all extremities, 2+ reflexes bilateral patella tendons. Normal gait. No ataxia. Skin: Jaundice noted Psych: Goal-directed thought process, not responding to internal stimuli, appears appropriate normal affect MEDICAL DECISION MAKING: Chief Complaint: Suicidal ideation External records reviewed: No recent psychiatric evaluations noted MDM Narrative: I will obtain medical clearance labs including an ammonia level. Patient's labs showed no evidence of significant decompensated liver failure, no evidence of significant electrolyte abnormalities, no evidence of significant dehydration, did show THC in the patient's urine tox screen her other toxicological studies were negative. His serum alcohol is negative. He was MEDICALLY CLEARED for further behavioral health evaluation. Our behavioral older adult social work specialist evaluate the patient was able to give the patient close IOP follow-up. Patient was discharged in stable condition. On repeat psychiatric evaluation he denied suicidal ideation, homicidal ideation, auditory or visual hallucinations. He contracts to safety. He is future oriented. I do not think the patient requires inpatient hospitalization at this time. He represents a low risk of suicide completion at this time. Factors affecting care: Depression, hepatic encephalopathy, hemochromatosis, type 2 diabetes, gout Social determinants of health: History of alcohol abuse History obtained from others: None Shared decision making: I will have a discussion with the patient and or visitors regarding risk/benefits of further testing or admission. They will be made aware of of the risk/benefits inherent in this decision they will be given the opportunity to voice understanding. Consults: Behavioral health Lab Data Attestation: I reviewed the patient's lab results. Lab results narrative: EKG with normal sinus rhythm, left ax deviation, normal intervals, no STEMI CBC with no leukocytosis, mild anemia likely of chronic disease, thrombocytopenia noted BMP without significant electrolyte abnormalities, mild hypokalemia, no anion gap, no acute kidney injury LFTs essentially at baseline shows evidence of chronic liver failure Urine tox screen positive for THC, Ammonia elevated however essentially baseline for the patient Serum alcohol negative Labs: Laboratory Results - last 24 hr 12/01/22 12/01/22 12/01/22 17:35 17:40 17:40 WBC 4.8 RBC 3.53 L Hgb 11.9 L Hct 36.8 L MCV 104.2 H MCH 33.7 H MCHC 32.3 RDW Std Deviation 66.0 H RDW Coeff of Kaela 17.1 H Plt Count 73 L MPV 9.9 Immature Gran % (Auto) 0.400 Neut % (Auto) 68.7 Lymph % (Auto) 19.5 [place] % (Auto) 7.3 Eos % (Auto) 3.3 Baso % (Auto) 0.8 Absolute Neuts (auto) 3.3 Absolute Lymphs (auto) 0.94 Nucleated RBC % 0 Differential Comment SCANNED Sodium 144 Potassium 3.2 L Chloride 110 H Carbon Dioxide 26.0 Anion Gap 8 BUN 7 Creatinine 0.81 Estim Creat Clear Calc 110.90 Est GFR (MDRD) Af Amer 131 Est GFR (MDRD) Non-Af 108 BUN/Creatinine Ratio 8.7 L Glucose 98 Calcium 8.8 Total Bilirubin Direct Bilirubin AST ALT Alkaline Phosphatase Ammonia Total Protein Albumin Globulin Urine Opiates Screen NEGATIVE Urine Methadone Screen NEGATIVE Ur Barbiturates Screen NEGATIVE Ur Phencyclidine Scrn NEGATIVE Ur Amphetamines Screen NEGATIVE MDMA (Ecstasy) Screen NEGATIVE U Benzodiazepines Scrn NEGATIVE Urine Cocaine Screen NEGATIVE U Cannabinoids Screen POSITIVE H Ur Drug Screen Comment Ethyl Alcohol 12/01/22 12/01/22 12/01/22 17:40 17:40 20:05 WBC RBC Hgb Hct MCV MCH MCHC RDW Std Deviation RDW Coeff of Kaela Plt Count MPV Immature Gran % (Auto) Neut % (Auto) Lymph % (Auto) [place] % (Auto) Eos % (Auto) Baso % (Auto) Absolute Neuts (auto) Absolute Lymphs (auto) Nucleated RBC % Differential Comment Sodium Potassium Chloride Carbon Dioxide Anion Gap BUN Creatinine Estim Creat Clear Calc Est GFR (MDRD) Af Amer Est GFR (MDRD) Non-Af BUN/Creatinine Ratio Glucose Calcium Total Bilirubin 3.50 H Direct Bilirubin 1.55 H AST 62 H ALT 30 Alkaline Phosphatase 218 H Ammonia 35.0 H Total Protein 5.8 L Albumin 2.5 L Globulin 3.3 Urine Opiates Screen Urine Methadone Screen Ur Barbiturates Screen Ur Phencyclidine Scrn Ur Amphetamines Screen MDMA (Ecstasy) Screen U Benzodiazepines Scrn Urine Cocaine Screen U Cannabinoids Screen Ur Drug Screen Comment Ethyl Alcohol 4.0 Discharge Plan Triage Chief Complaint: Suicidal ED Provider: Clinton Miller Dx/Rx/DC Orders Clinical Impression: Depression with suicidal ideation, History of cirrhosis, Thrombocytopenia Instructions: CONTRACT, No Harm, ED Depression Prescriptions: No Action cyanocobalamin (vitamin B-12) 1,000 mcg capsule 1,000 mcg PO DAILY thiamine HCl (vitamin B1) [Vitamin B-1] 100 mg Tablet 200 mg PO BID Qty: 60 0RF metronidazole 500 mg Tablet 500 mg PO Q8 Qty: 0 0RF pantoprazole 40 mg tablet,delayed release (DR/EC) See Rx Instructions .ROUTE .COMPLEX Qty: 30 0RF Dose Instruction: take 1 tablet by mouth once daily Rx Instructions: take 1 tablet by mouth once daily folic acid 1 mg tablet 1 mg PO DAILY Qty: 90 3RF furosemide 40 mg tablet See Rx Instructions .ROUTE .COMPLEX Qty: 30 11RF Dose Instruction: take 1 tablet by mouth once daily Rx Instructions: take 1 tablet by mouth once daily Xifaxan 550 mg tablet See Rx Instructions .ROUTE .COMPLEX Qty: 60 11RF Dose Instruction: take 1 tablet by mouth twice a day Rx Instructions: take 1 tablet by mouth twice a day trazodone 50 mg tablet See Rx Instructions PO QHS PRN (Reason: sleep) Qty: 30 1RF Rx Instructions: May take 1/2 to 1 tablet nightly as needed spironolactone 50 mg tablet 50 mg PO DAILY Qty: 90 3RF scopolamine base 1 mg over 3 days patch 3 day 1 patch transdermal Q72H Qty: 10 2RF sertraline [Zoloft] 50 mg tablet 50 mg PO DAILY Qty: 90 1RF doxepin 10 mg capsule 10 mg PO QHS PRN (Reason: sleep) Qty: 20 0RF lactulose 20 gram/30 mL solution See Rx Instructions .ROUTE .COMPLEX Qty: 1200 11RF Dose Instruction: take 30 milliliter by mouth four times a day Rx Instructions: take 30 milliliter by mouth four times a day Primary Care Provider: Ita Goddard Referrals: Ita Goddard MD [Primary Care Provider] - Activity Restrictions/Additional Instructions: Thank you for trusting us with your care today! Please return to the emergency department if your symptoms change or worsen. Specifically if you develop additional suicidal ideation, a plan or if develop homicidal ideation auditory or visual hallucinations. Please follow with your primary care physician for further outpatient evaluation and management. Disposition Disposition: Home, Self Care Discharge Date/Time: 12/01/22 21:15
--- NOTE | 2022-12-01 17:09 | EKG12_ITS ---
Test Reason : MENTAL HEALTH Blood Pressure : / mmHG Vent. Rate : 095 BPM Atrial Rate : 095 BPM P-R Int : 148 ms QRS Dur : 082 ms QT Int : 370 ms P-R-T Axes : 048 001 024 degrees QTc Int : 464 ms Normal sinus rhythm Septal infarct , age undetermined Abnormal ECG Confirmed by JADEN HORNE, MANJULA ([id number]), rewrite editor BIPIN HERNANDEZ ([id number]) on 12/02/2022 8:55:13 AM Referred By: KANDY Confirmed By:MANJULA STANLEY MD
[2022-12-01 17:46] VITALS: RESP 16
[2022-12-01 18:29] LABS: Anion Gap 8 (5-15); BUN 7 mg/dL (7-18); BUN/Creat Ratio 8.7 RATIO (10-20); Calcium,Total 8.8 mg/dL (8.5-10.1); Chloride 110 mmol/L (98-107); Creatinine, Serum 0.81 mg/dL (0.70-1.30); EST Glomerular Filtration Rate 108 mL/min (>60); Est Glom Filt Rate - Afr Amer 131 mL/min (>60); Glucose 98 mg/dL (74-106); Potassium 3.2 mmol/L (3.5-5.1); Sodium Level 144 mmol/L (136-145)
[2022-12-01 18:31] LABS: Absolute Lymphocyte Count 0.94 X10^3/uL (0.83-4.51); Absolute Neutrophil Count 3.3 X10^3/uL (2.0-7.7); Basophil# 0.04 X10^3/uL; Basophil% 0.8 % (0-1); Eosinophil# 0.16 X10^3/uL; Eosinophils% 3.3 % (0-5); Hematocrit 36.8 % (40-54); Hemoglobin 11.9 g/dL (13.0-16.5); Lymphocyte # 0.94 X10^3/ul (0.83-4.51); Lymphocyte % 19.5 % (19-41); Mean Corp Hgb Conc 32.3 g/dL (32-36); Mean Corpuscular Hgb 33.7 pg (27.0-32.0); Mean Corpuscular Volume 104.2 fL (80-94); Mean Platelet Vol. 9.9 fl (6.2-12.0); Monocyte# 0.35 X10^3/uL; Monocyte% 7.3 % (0-10); NRBC Flagged by Analyzer 0 % (0-5); Neutrophil # 3.31 X10^3/uL (2.7-7.7); Neutrophil % 68.7 % (47-70); POSITIVE COUNT YES; POSITIVE MORPHOLOGY YES; Platelet Count 73 K/mm3 (150-450); RBC Distribution Width CV 17.1 % (11.6-14.6); Red Blood Count 3.53 M/mm3 (4.6-6.2); White Blood Count 4.8 K/mm3 (4.4-11.0)
[2022-12-01 18:32] LABS: Amphetamine Urine VISTA NEGATIVE (<1000 ng/mL); Barbiturate Urine VISTA NEGATIVE (< 200 ng/mL); Benzodiazepine Urine VISTA NEGATIVE (< 200 ng/mL); Cocaine Urine VISTA NEGATIVE (< 300 ng/mL); Ecstacy Urine VISTA NEGATIVE (< 500 ng/mL); Methadone Urine VISTA NEGATIVE (< 300 ng/mL); PCP Urine VISTA NEGATIVE (< 25 ng/mL); THC Urine VISTA POSITIVE (< 50 ng/mL); Vista UDS pH Range 6
[2022-12-01 19:19] LABS: Differential Comment SCANNED; Differential Indicated SCAN CRITERIA MET
[2022-12-01 20:43] LABS: AST(SGOT) 62 U/L (15-37); Alanine Aminotransfer ALT/SGPT 30 U/L (16-61); Albumin, Serum 2.5 g/dL (3.2-5.0); Alkaline Phosphatase 218 U/L (45-117); Bilirubin, Direct 1.55 mg/dL (0.00-0.30); Globulin 3.3 g/dL (2.2-4.2); Protein, Total 5.8 g/dL (6.4-8.2)
[2022-12-01 20:53] VITALS: BP 108/72; PULSE 77; RESP 16; O2SAT 98
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
--- NOTE | 2022-12-01 21:35 | CM.ED ---
Social Work SW and patient completed safety planned. Copy given to patient. Resources given to patient and information regarding prescription assistance. Luana Balbuena ITALIAN LECTURER, COMMUNITY HEALTH NURSING DIRECTOR
== END 2022-12-01 21:15 | disposition home or self-care (01) ==
PROVIDERS: Emergency Provider Emergency Medicine; PCP Internal Medicine; Visit Provider Emergency Medicine
DX: R45.851 Suicidal ideations (principal); K76.82 Hepatic encephalopathy; D69.6 Thrombocytopenia, unspecified; E11.9 Type 2 diabetes mellitus without complications; I10 Essential (primary) hypertension; F32.A Depression, unspecified; M10.9 Gout, unspecified; Z87.891 Personal history of nicotine dependence; E83.119 Hemochromatosis, unspecified; Z87.19 Personal history of other diseases of the digestive system
CPT/HCPCS: 80048; 80076; 80307; 82077; 82140; 85025; 87426; 93005; 99281; 99282; A4216

== ENCOUNTER 2022-12-20 19:07 | Emergency (ER) | payer SELFPAY ==
[2022-12-20 19:08] VITALS: BP 131/80; PULSE 96; RESP 15; TEMP 36.8; O2SAT 99; BMI 22.8
== END 2022-12-20 20:00 | disposition left against medical advice (07) ==
LOC: ED 20:12
PROVIDERS: PCP Internal Medicine
DX: Z53.21 Procedure and treatment not carried out due to patient leaving prior to being seen by health care provider (principal)

== ENCOUNTER 2022-12-21 06:06 | Emergency (ER) | payer BC, SELFPAY ==
[2022-12-21 06:07] VITALS: BP 129/83; PULSE 96; RESP 15; TEMP 36.7; O2SAT 100; BMI 23.4
--- NOTE | 2022-12-21 07:32 | EKG12_ITS ---
Test Reason : EDEMA Blood Pressure : / mmHG Vent. Rate : 084 BPM Atrial Rate : 084 BPM P-R Int : 160 ms QRS Dur : 084 ms QT Int : 400 ms P-R-T Axes : 055 028 040 degrees QTc Int : 472 ms Normal sinus rhythm Septal infarct , age undetermined Abnormal ECG Confirmed by JADEN HORNE, MANJULA ([id number]), field map editor BIPIN HERNANDEZ ([id number]) on 12/23/2022 8:04:26 AM Referred By: Confirmed By:MANJULA STANLEY MD
--- NOTE | 2022-12-21 07:33 | EX.ED.DYSGE1 ---
HPI History of Present Illness Chief Complaint: Edema Detail of Chief Complaint: Bilateral lower extremity edema Informant: patient Onset/Context/Timing Onset: Weeks Context: Gradual Onset Timing: Continuous Current Severity: Mild Maximum Severity: Mild Narrative Narrative: 47-year-old male history of alcohol induced liver cirrhosis and diabetes. States has had increased swelling in his lower extremities for weeks. Denies any shortness of breath. No chest pain. Prior history of peripheral edema but he said typically its not been this bad before. Denies other complaints. Prior similar symptoms: Yes Recent Illness/Hospitalization: No PFSH [facility] Medical History Alcoholic hepatitis Carrier of hemochromatosis HFE gene mutation Cirrhosis Diabetes mellitus type 2 in nonobese Dietary restriction Former smoker Gastric reflux Gout Hepatic encephalopathy History of edema History of panic attacks History of stress test HTN (hypertension) Hx of gout Liver damage Seasonal allergies Sleep apnea Trauma Home Medications cyanocobalamin (vitamin B-12) 1,000 mcg capsule 1,000 mcg PO DAILY 09/13/21 [History Last Taken Unknown] folic acid 1 mg tablet 1 mg PO DAILY #90 tabs 05/02/22 [Rx Last Taken Unknown] furosemide 40 mg tablet See Rx Instructions .Route .COMPLEX #30 TABLETS 05/27/22 [Rx Last Taken Unknown] rifaximin 550 mg tablet (Xifaxan) See Rx Instructions .Route .COMPLEX #60 tabs 05/30/22 [Rx Last Taken Unknown] metronidazole 500 mg tablet 500 mg PO Q8 #0 tabs 06/21/22 [Rx Last Taken Unknown] thiamine HCl (vitamin B1) 100 mg tablet (Vitamin B-1) 200 mg PO BID #60 tabs 06/21/22 [Rx Last Taken Unknown] trazodone 50 mg tablet See Rx Instructions PO QHS PRN sleep #30 tabs 06/27/22 [Rx Last Taken Unknown] spironolactone 50 mg tablet 50 mg PO DAILY #90 tabs 07/12/22 [Rx Last Taken Unknown] scopolamine base 1 mg over 3 days transdermal patch 1 patch transdermal Q72H #10 ea 08/10/22 [Rx Last Taken Unknown] sertraline 50 mg tablet (Zoloft) 50 mg PO DAILY #90 tabs 08/10/22 [Rx Last Taken Unknown] doxepin 10 mg capsule 10 mg PO QHS PRN sleep #20 caps 08/21/22 [Rx Last Taken Unknown] lactulose 20 gram/30 mL oral solution BID 12/21/22 [History Last Taken Unknown] pantoprazole 40 mg tablet,delayed release 40 mg PO DAILY 12/21/22 [History Last Taken Unknown] Allergy/AdvReac Type Severity Reaction Status Date / Time pioglitazone Allergy Mild liver Verified 12/21/22 06:10 damange Family History Other CVA (cerebral vascular accident) Cancer Cirrhosis Heart disease Hypertension Thyroid disorder Surgical History History of esophagogastroduodenoscopy (EGD) History of surgery 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 Review of Systems ROS Unobtainable: Denies due to encephalopathy Constitutional Constitutional ED: Denies chills or fever(s) Eyes Eyes: Denies blurry vision ENT ENT ED: Denies ear pain Cardiovascular Cardiovascular: Denies chest pain or orthopnea Respiratory/Chest Respiratory/Chest: Denies cough, dyspnea, dyspnea on exertion or orthopnea Gastrointestinal Gastrointestinal: Denies abdominal pain Genitourinary Genitourinary ED: Denies dysuria or hematuria Musculoskeletal Musculoskeletal: Denies arthralgias Integumentary Denies abscess Neurologic Neurologic: Denies headache(s) Psychiatric Psychiatric: Denies anxiety or depression Endocrine Endocrinology: Denies cold intolerance Hematologic/Lymphatic Hematologic/Lymphatic: Reports none Allergic/Immunologic Allergic/Immunologic ED: Denies mouth swelling or tongue swelling EXAM Physical Exam Narrative Exam Narrative: 47-year-old male vital signs are stable afebrile. Pulse ox 100% on room air no signs hypoxia. He is in no distress. H EENT exam unremarkable. Moist extremities. Neck nontender no JVD. Lungs clear to auscultation bilaterally. Heart regular rhythm no murmur. Abdomen soft nontender normal bowel sounds no peritoneal signs. No ascites. Patient moving all 4 extremities. He has 1+ pitting edema from his knees down bilaterally. Normal dorsi plantarflexion. No redness or warmth. Neurologically he is awake and alert with no focal motor deficits. Const Vital Signs: 12/21/22 06:07 12/21/22 07:24 12/21/22 08:16 Temperature 98.0 F Temperature Source Oral Pulse Rate 96 Respiratory Rate 15 16 Respiratory Effort Normal Blood Pressure 129/83 H Blood Pressure Mean 98 Pulse Ox 100 Oxygen Delivery Method Room Air Positive well nourished and well developed; Negative for obese, cachectic, contractures or unkempt General Appearance ED: well developed and NAD; Negative for unkempt, cachectic, contractures, cyanotic, diaphoretic or other Nutritional Appearance: Negative for cachectic or obese HEENT Reports moist mucous membranes; Denies dry mucous membranes Negative for trauma or tenderness Mouth ED: No dry mucous membranes Mouth: No dry mucous membranes Eyes PERRL and EOMs intact bilaterally General Eye ED: Negative for pale conjunctiva or scleral icterus Neck no lymphadenopathy, supple and no JVD General: Negative for tenderness Lymph Lymphatic: Negative for other Chest Wall inspection of chest normal and palpation of chest normal Chest: Negative for other Resp normal respiratory effort and clear to auscultation bilaterally Effort and Inspection: Negative for retractions Auscultation: Negative for rales, rhonchi or wheezes Cardio regular rate, regular rhythm, S1 normal heart sound, S2 normal heart sound and no murmurs Palpation: Negative for palpable S3 Rate: Negative for bradycardia GI normal to inspection, nondistended, normoactive bowel sounds, non-tender, non-distended and no masses Inspection: Negative for abdominal distention Auscultation: normoactive bowel sounds Palpation: soft; Negative for tender or guarding Back/Spine no CVA tenderness General Back: Negative for CVA tenderness Cervical Spine: Negative for cervical spine tenderness Thoracic Spine / Upper Back: Negative for thoracic spinal tenderness Lumbar Spine / Lower Back: Negative for lumbar spinal tenderness Extremity normal to inspection Extremity Narrative: Normal except for 1+ pitting edema bilaterally from the knees down. Consistent with peripheral edema. General Extremety ED: Yes edema; Negative for tenderness General Extremity: edema Neuro oriented x3 and CN's II-XII intact bilaterally Sensorium / Orientation: alert Motor Exam: strength 5/5 throughout; Negative for general weakness Psych mental status grossly normal Appearance: Negative for unkempt Attitude: No agitated Mood & Affect: Negative for depressed Skin no rashes or lesions noted and no wounds General Skin Exam: Negative for elasticity normal Lesions: No lesion noted Rashes: No rashes noted Trauma: Negative for abrasion Wounds: Negative for wounds noted MDM MDM MDM Narrative Medical decision making narrative: 47-year-old male known history of cirrhosis as a history of diabetes also. With increased leg swelling. It is bilateral. Screening labs will be obtained. Repeat exam patient is resting comfortably at 8:40 AM. We discussed his test results. He has no reason to be admitted at this time. I will be discharged for outpatient follow-up. Lab Data Attestation: I reviewed the patient's lab results. Lab results narrative: CBC shows a white count of 4.1. H&H 9.9 and 30.7. Platelets are 78. Patient has a baseline anemia he typically runs around 11 this is lower. Platelets are 78,000 this is his baseline. PT/INR 19.7 and 1.7. His PTT is 40.8. Glucose is 121. Electrolytes show a gap of 5 normal BUN and creatinine 9 and 0.7. Liver enzymes show total bilirubin of 3.1 Labs: Laboratory Results - last 24 hr 12/21/22 12/21/22 12/21/22 06:10 06:10 06:10 WBC 4.1 L RBC 2.94 L Hgb 9.9 L Hct 30.7 L MCV 104.4 H MCH 33.7 H MCHC 32.2 RDW Std Deviation 69.5 H RDW Coeff of Kaela 18.1 H Plt Count 78 L MPV 10.4 Differential Comment SCANNED PT 19.7 H INR 1.7 APTT 40.8 H Sodium 143 Potassium 3.8 Chloride 112 H Carbon Dioxide 26.0 Anion Gap 5 BUN 9 Creatinine 0.70 Estim Creat Clear Calc 129.06 Est GFR (MDRD) Af Amer 155 Est GFR (MDRD) Non-Af 128 BUN/Creatinine Ratio 12.9 Glucose 121 H Calcium 7.9 L Total Bilirubin 3.10 H AST 69 H ALT 34 Alkaline Phosphatase 266 H Total Protein 5.9 L Albumin 2.4 L Globulin 3.5 Albumin/Globulin Ratio 0.7 L Rhythm Strip Rhythm Strip: Sinus Rhythm Rate: 84 Ectopy: None EKG Initial EKG: Attestation: I personally reviewed and interpreted this EKG as follows: Interpretation: Sinus Rhythm Comments: Normal sinus rhythm rate 84 no acute signs of [place] nor ischemia. No dysrhythmia. Discharge Plan Triage Chief Complaint: Edema ED Provider: Carlos Lawrence Dx/Rx/DC Orders Clinical Impression: Edema, peripheral, Hx of cirrhosis, History of diabetes mellitus Instructions: ED Peripheral Edema, Bilateral Prescriptions: No Action cyanocobalamin (vitamin B-12) 1,000 mcg capsule 1,000 mcg PO DAILY thiamine HCl (vitamin B1) [Vitamin B-1] 100 mg Tablet 200 mg PO BID Qty: 60 0RF metronidazole 500 mg Tablet 500 mg PO Q8 Qty: 0 0RF pantoprazole 40 mg tablet,delayed release (DR/EC) 40 mg PO DAILY Rx Instructions: take 1 tablet by mouth once daily lactulose 20 gram/30 mL solution BID Rx Instructions: take 30 milliliter by mouth four times a day folic acid 1 mg tablet 1 mg PO DAILY Qty: 90 3RF furosemide 40 mg tablet See Rx Instructions .ROUTE .COMPLEX Qty: 30 11RF Dose Instruction: take 1 tablet by mouth once daily Rx Instructions: take 1 tablet by mouth once daily Xifaxan 550 mg tablet See Rx Instructions .ROUTE .COMPLEX Qty: 60 11RF Dose Instruction: take 1 tablet by mouth twice a day Rx Instructions: take 1 tablet by mouth twice a day trazodone 50 mg tablet See Rx Instructions PO QHS PRN (Reason: sleep) Qty: 30 1RF Rx Instructions: May take 1/2 to 1 tablet nightly as needed spironolactone 50 mg tablet 50 mg PO DAILY Qty: 90 3RF scopolamine base 1 mg over 3 days patch 3 day 1 patch transdermal Q72H Qty: 10 2RF sertraline [Zoloft] 50 mg tablet 50 mg PO DAILY Qty: 90 1RF doxepin 10 mg capsule 10 mg PO QHS PRN (Reason: sleep) Qty: 20 0RF Primary Care Provider: Ita Goddard Referrals: Ita Goddard MD [Primary Care Provider] - As soon as possible Activity Restrictions/Additional Instructions: Follow-up with your primary care physician. Your blood count was 9.9 today is a little bit lower. They can recheck that in several weeks. Disposition Disposition: Home, Self Care
[2022-12-21 08:14] LABS: Hematocrit 30.7 % (40-54); Hemoglobin 9.9 g/dL (13.0-16.5); Mean Corp Hgb Conc 32.2 g/dL (32-36); Mean Corpuscular Hgb 33.7 pg (27.0-32.0); Mean Corpuscular Volume 104.4 fL (80-94); Mean Platelet Vol. 10.4 fl (6.2-12.0); POSITIVE COUNT YES; POSITIVE MORPHOLOGY YES; Platelet Count 78 K/mm3 (150-450); RBC Distribution Width CV 18.1 % (11.6-14.6); RBC Distribution Width SD 69.5 fl (35.1-43.9); Red Blood Count 2.94 M/mm3 (4.6-6.2); White Blood Count 4.1 K/mm3 (4.4-11.0)
[2022-12-21 08:16] VITALS: RESP 16
[2022-12-21 08:16] LABS: Scan Indicated on CBC? Y/N YES- FLAGS NOTED
[2022-12-21 08:29] LABS: International Normalized Ratio 1.7; Prothrombin Time (Protime)PT. 19.7 SECONDS (11.7-14.9)
[2022-12-21 08:30] LABS: ALB/GLOB Ratio 0.7 RATIO (0.9-2.4); AST(SGOT) 69 U/L (15-37); Alanine Aminotransfer ALT/SGPT 34 U/L (16-61); Albumin, Serum 2.4 g/dL (3.2-5.0); Alkaline Phosphatase 266 U/L (45-117); Anion Gap 5 (5-15); BUN 9 mg/dL (7-18); BUN/Creat Ratio 12.9 RATIO (10-20); Calcium,Total 7.9 mg/dL (8.5-10.1); Chloride 112 mmol/L (98-107); EST Glomerular Filtration Rate 128 mL/min (>60); Est Glom Filt Rate - Afr Amer 155 mL/min (>60); Estimated Creatinine Clearance 129.06 ml/min; Globulin 3.5 g/dL (2.2-4.2); Glucose 121 mg/dL (74-106); Partial Thromboplast Time 40.8 Seconds (24.1-36.2); Potassium 3.8 mmol/L (3.5-5.1); Protein, Total 5.9 g/dL (6.4-8.2); Sodium Level 143 mmol/L (136-145)
[2022-12-21 08:33] LABS: Differential Comment SCANNED
== END 2022-12-21 08:57 | disposition home or self-care (01) ==
PROVIDERS: Emergency Provider Emergency Medicine; PCP Internal Medicine; Visit Provider Emergency Medicine
DX: R60.0 Localized edema (principal); E11.9 Type 2 diabetes mellitus without complications; I10 Essential (primary) hypertension; Z87.891 Personal history of nicotine dependence; M79.89 Other specified soft tissue disorders; Z87.19 Personal history of other diseases of the digestive system
CPT/HCPCS: 80053; 85027; 85610; 85730; 93005; 99282

== ENCOUNTER → 2022-12-21 | Outpatient (CLI) | payer SELFPAY ==
--- NOTE | 2022-12-21 15:14 | VDLE_ITS ---
Reason For Study: RLE Swelling RIGHT GSV is normal. CFV is compressible, spontaneous, phasic, competent and demonstrates normal augmentation. FV is compressible, spontaneous, phasic, competent and demonstrates normal augmentation. POP V is compressible, spontaneous, phasic, competent and demonstrates normal augmentation. T/P Trunk is compressible. PTV is compressible. RT PerV is compressible. Procedure This is a venous duplex using B-mode, color flow and spectral Doppler. Exam performed in department. A preliminary report was called and/or faxed to Dr. Goddard @ [phone] @ 3:40pm. VL/Venous Duplex US, Unilateral Interpretation Summary Deep veins of the right lower extremity are patent and compressible segmentally . There is no evidence of right lower extremity deep vein thrombosis. The right great sapheno us vein appears patent and compressible segmentally. Ordering Physician: Ita Goddard Referring Physician: Ita Goddard Performed By: Daiana Cowan RDCS, RVT
== END | disposition home or self-care (01) ==
PROVIDERS: PCP Internal Medicine; Referring Provider Internal Medicine; Visit Provider Internal Medicine
DX: M79.89 Other specified soft tissue disorders (principal)
CPT/HCPCS: 93971

== ENCOUNTER 2023-01-04 07:38 | Outpatient (RCR) | payer SELFPAY ==
[2023-01-04 08:23] LABS: International Normalized Ratio 1.7; Prothrombin Time (Protime)PT. 20.2 SECONDS (11.7-14.9)
[2023-01-04 08:34] LABS: ALB/GLOB Ratio 0.8 RATIO (0.9-2.4); AST(SGOT) 73 U/L (15-37); Alanine Aminotransfer ALT/SGPT 39 U/L (16-61); Albumin, Serum 2.7 g/dL (3.2-5.0); Alkaline Phosphatase 228 U/L (45-117); BUN 7 mg/dL (7-18); BUN/Creat Ratio 9.2 RATIO (10-20); Calcium,Total 7.9 mg/dL (8.5-10.1); Chloride 110 mmol/L (98-107); Creatinine, Serum 0.76 mg/dL (0.70-1.30); EST Glomerular Filtration Rate 117 mL/min (>60); Est Glom Filt Rate - Afr Amer 141 mL/min (>60); Globulin 3.6 g/dL (2.2-4.2); Glucose 119 mg/dL (74-106); Potassium 3.9 mmol/L (3.5-5.1); Protein, Total 6.3 g/dL (6.4-8.2); Sodium Level 141 mmol/L (136-145)
[2023-01-04 08:35] LABS: Anion Gap 5 (5-15)
== END 2023-01-04 18:00 | disposition home or self-care (01) ==
LOC: LAB 07:38
PROVIDERS: PCP Internal Medicine; Referring Provider Internal Medicine Gastroenterology; Visit Provider Internal Medicine Gastroenterology
DX: K74.60 Unspecified cirrhosis of liver (principal)
CPT/HCPCS: 36415; 80053; 85610

== ENCOUNTER 2023-01-05 11:37 | Emergency (ER) | payer SELFPAY ==
[2023-01-05 11:38] VITALS: BP 126/74; PULSE 81; RESP 16; TEMP 36.7; O2SAT 99; BMI 22.4
[2023-01-05 11:49] VITALS: BP 106/70; PULSE 76; RESP 12; O2SAT 99
[2023-01-05] MEDS: 0.9% Normal Saline 1,000 ML 1000 ML IV (12:40)
--- NOTE | 2023-01-05 12:48 | EX.ED.DYSGE1 ---
HPI History of Present Illness Chief Complaint: Confusion Narrative Narrative: 47-year-old male presenting with just feeling off. He states he feels tired. He states he is not sleeping well. Patient has nausea but is taking Zofran at home and this helps. 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 He notes that he comes home and sleeps. He denies chest pain or shortness of breath. He denies and abdominal pain. Patient has significant history of cirrhosis and hepatic encephalopathy. He denies fever, chills. Also has right leg edema. Has had this for a couple of weeks. He says he had a duplex of this on 12/21/2022 which was negative. [facility] Medical History Alcoholic hepatitis Carrier of hemochromatosis HFE gene mutation Cirrhosis Diabetes mellitus type 2 in nonobese Dietary restriction Former smoker Gastric reflux Gout Hepatic encephalopathy History of edema History of panic attacks History of stress test HTN (hypertension) Hx of gout Liver damage Seasonal allergies Sleep apnea Trauma Home Medications folic acid 1 mg tablet 1 mg PO DAILY #90 tabs 05/02/22 [Rx Last Taken Unknown] furosemide 40 mg tablet See Rx Instructions .Route .COMPLEX #30 TABLETS 05/27/22 [Rx Last Taken Unknown] rifaximin 550 mg tablet (Xifaxan) See Rx Instructions .Route .COMPLEX #60 tabs 05/30/22 [Rx Last Taken Unknown] metronidazole 500 mg tablet 500 mg PO Q8 #0 tabs 06/21/22 [Rx Last Taken Unknown] thiamine HCl (vitamin B1) 100 mg tablet (Vitamin B-1) 200 mg PO BID #60 tabs 06/21/22 [Rx Last Taken Unknown] trazodone 50 mg tablet See Rx Instructions PO QHS PRN sleep #30 tabs 06/27/22 [Rx Last Taken Unknown] scopolamine base 1 mg over 3 days transdermal patch 1 patch transdermal Q72H #10 ea 08/10/22 [Rx Last Taken Unknown] sertraline 50 mg tablet (Zoloft) 50 mg PO DAILY #90 tabs 08/10/22 [Rx Last Taken Unknown] lactulose 20 gram/30 mL oral solution BID 12/21/22 [History Last Taken Unknown] pantoprazole 40 mg tablet,delayed release 40 mg PO DAILY 12/21/22 [History Last Taken Unknown] aripiprazole 2 mg tablet 2 mg PO QHS 01/05/23 [History Last Taken Unknown] promethazine 25 mg tablet 25 mg PO QHS PRN nausea and vomiting #30 tabs 01/05/23 [Rx Last Taken Unknown] Allergy/AdvReac Type Severity Reaction Status Date / Time pioglitazone Allergy Mild liver Verified 01/05/23 11:38 damange Family History Other CVA (cerebral vascular accident) Cancer Cirrhosis Heart disease Hypertension Thyroid disorder Surgical History History of esophagogastroduodenoscopy (EGD) History of surgery 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 Status: Former smoker alcohol intake: former substance use type: does not use what type of physical activity do you participate in: other frequency: 1-2 times per week ROS ROS ED Constitutional Constitutional ED: Denies chills or fever(s) Eyes Eyes: Denies change in vision ENT ENT ED: Denies rhinorrhea or sore throat Respiratory/Chest Respiratory/Chest: Denies cough or dyspnea Gastrointestinal Gastrointestinal: Reports nausea Genitourinary Genitourinary ED: Denies dysuria or hematuria Musculoskeletal Musculoskeletal: Denies arthralgias or back pain Integumentary Denies abscess or Abrasions Neurologic Neurologic: Denies headache(s) Psychiatric Psychiatric: Denies anxiety or depression EXAM Physical Exam Const Vital Signs: 01/05/23 11:38 01/05/23 11:49 Temperature 98.1 F Temperature Source Temporal Pulse Rate 81 76 Respiratory Rate 16 12 Blood Pressure 126/74 H 106/70 Blood Pressure Mean 91 82 Pulse Ox 99 99 Oxygen Delivery Method Room Air Room Air Positive well nourished General Appearance ED: NAD; Negative for pallor HEENT Reports moist mucous membranes Eyes PERRL and EOMs intact bilaterally Chest Wall inspection of chest normal Resp normal respiratory effort and clear to auscultation bilaterally Cardio regular rate and regular rhythm GI normal to inspection, nondistended, normoactive bowel sounds Extremity normal to inspection Neuro oriented x3 and CN's II-XII intact bilaterally Sensorium / Orientation: alert Psych mental status grossly normal Skin no rashes or lesions noted General Skin Exam: Negative for jaundice or pallor MDM MDM MDM Narrative Medical decision making narrative: Patient presenting with nonspecific complaints. 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 I reviewed his labs from yesterday. His INR was normal at 1.7. CMP showed a bilirubin of 4 potassium 3.9, sodium 141, chloride 110, anion gap 5 AST was 73 and alk phos 228. Looks like his hemoglobin dropped 2 points. I asked him about black or bloody stools and he states he does not know but they have been dark. We will obtain occult stool. CBC to assess white blood cell count, hemoglobin, platelets, differential. CMP to assess liver function., Electrolytes. Ammonia to assess for hyperammonemia. ECG shows a hemoglobin 9.7, platelets 68 which is not new. White blood cell count 3.9. Renal function electrolytes within normal limits. Total bilirubin is down to 2.7 from 4 yesterday. Alkaline phosphatase is a little high at 285. Ammonia 39. Lipase negative. Occult stool was negative. Discussed the case with Dr. Martinez who recommended the patient increase his lactulose to 3 times a day remarkable. He did not think the patient needed to be admitted for the anemia. He will follow-up as an outpatient. Impression: 1. Anemia 2. Generalized weakness 3. Nausea Lab Data Attestation: I reviewed the patient's lab results. Labs: Laboratory Results - last 24 hr 01/05/23 01/05/23 01/05/23 13:55 13:55 13:55 WBC 3.9 L RBC 2.77 L Hgb 9.7 L Hct 29.1 L MCV 105.1 H MCH 35.0 H MCHC 33.3 RDW Std Deviation 70.5 H RDW Coeff of Kaela 17.9 H Plt Count 68 L MPV 8.4 Immature Gran % (Auto) 0.300 Neut % (Auto) 65.6 Lymph % (Auto) 20.9 Person % (Auto) 8.8 Eos % (Auto) 3.6 Baso % (Auto) 0.8 Absolute Neuts (auto) 2.6 Absolute Lymphs (auto) 0.81 L Nucleated RBC % 0 Sodium 143 Potassium 3.6 Chloride 112 H Carbon Dioxide 28.0 Anion Gap 3 L BUN 7 Creatinine 0.58 L Estim Creat Clear Calc 151.59 Est GFR (MDRD) Af Amer 192 Est GFR (MDRD) Non-Af 158 BUN/Creatinine Ratio 12.1 Glucose 104 Calcium 7.9 L Total Bilirubin 2.70 H AST 53 H ALT 33 Alkaline Phosphatase 285 H Ammonia 39.0 H Total Protein 5.4 L Albumin 2.2 L Globulin 3.2 Albumin/Globulin Ratio 0.7 L Lipase 71 Discharge Plan Triage Chief Complaint: Confusion Other Complaint: General Illness ED Provider: Joseph Guerrero Dx/Rx/DC Orders Instructions: ED Vomiting (Adult), ED Weakness (Uncertain Cause) Prescriptions: New promethazine 25 mg tablet 25 mg PO QHS PRN (Reason: nausea and vomiting) Qty: 30 0RF No Action thiamine HCl (vitamin B1) [Vitamin B-1] 100 mg Tablet 200 mg PO BID Qty: 60 0RF metronidazole 500 mg Tablet 500 mg PO Q8 Qty: 0 0RF pantoprazole 40 mg tablet,delayed release (DR/EC) 40 mg PO DAILY Rx Instructions: take 1 tablet by mouth once daily lactulose 20 gram/30 mL solution BID Rx Instructions: take 30 milliliter by mouth four times a day aripiprazole 2 mg tablet 2 mg PO QHS Label Comments: take 1 tablet by mouth once daily folic acid 1 mg tablet 1 mg PO DAILY Qty: 90 3RF furosemide 40 mg tablet See Rx Instructions .ROUTE .COMPLEX Qty: 30 11RF Dose Instruction: take 1 tablet by mouth once daily Rx Instructions: take 1 tablet by mouth once daily Xifaxan 550 mg tablet See Rx Instructions .ROUTE .COMPLEX Qty: 60 11RF Dose Instruction: take 1 tablet by mouth twice a day Rx Instructions: take 1 tablet by mouth twice a day trazodone 50 mg tablet See Rx Instructions PO QHS PRN (Reason: sleep) Qty: 30 1RF Rx Instructions: May take 1/2 to 1 tablet nightly as needed scopolamine base 1 mg over 3 days patch 3 day 1 patch transdermal Q72H Qty: 10 2RF sertraline [Zoloft] 50 mg tablet 50 mg PO DAILY Qty: 90 1RF Stand Alone Forms: ED Work / School Excuse Primary Care Provider: Ita Goddard Referrals: Ita Goddard MD [Primary Care Provider] - Nate Martinez DO [Med Staff - Active Staff] - As soon as possible Disposition Disposition: Home, Self Care
[2023-01-05 14:19] LABS: Absolute Lymphocyte Count 0.81 X10^3/uL (0.83-4.51); Absolute Neutrophil Count 2.6 X10^3/uL (2.0-7.7); Basophil# 0.03 X10^3/uL; Basophil% 0.8 % (0-1); Eosinophil# 0.14 X10^3/uL; Eosinophils% 3.6 % (0-5); Hematocrit 29.1 % (40-54); Hemoglobin 9.7 g/dL (13.0-16.5); Lymphocyte # 0.81 X10^3/ul (0.83-4.51); Lymphocyte % 20.9 % (19-41); Mean Corp Hgb Conc 33.3 g/dL (32-36); Mean Corpuscular Volume 105.1 fL (80-94); Mean Platelet Vol. 8.4 fl (6.2-12.0); Monocyte# 0.34 X10^3/uL; Monocyte% 8.8 % (0-10); NRBC Flagged by Analyzer 0 % (0-5); Neutrophil # 2.55 X10^3/uL (2.7-7.7); Neutrophil % 65.6 % (47-70); POSITIVE COUNT YES; POSITIVE MORPHOLOGY YES; Platelet Count 68 K/mm3 (150-450); RBC Distribution Width CV 17.9 % (11.6-14.6); RBC Distribution Width SD 70.5 fl (35.1-43.9); Red Blood Count 2.77 M/mm3 (4.6-6.2); White Blood Count 3.9 K/mm3 (4.4-11.0)
[2023-01-05 14:30] LABS: ALB/GLOB Ratio 0.7 RATIO (0.9-2.4); AST(SGOT) 53 U/L (15-37); Alanine Aminotransfer ALT/SGPT 33 U/L (16-61); Albumin, Serum 2.2 g/dL (3.2-5.0); Alkaline Phosphatase 285 U/L (45-117); Anion Gap 3 (5-15); BUN 7 mg/dL (7-18); BUN/Creat Ratio 12.1 RATIO (10-20); Calcium,Total 7.9 mg/dL (8.5-10.1); Chloride 112 mmol/L (98-107); Creatinine, Serum 0.58 mg/dL (0.70-1.30); EST Glomerular Filtration Rate 158 mL/min (>60); Est Glom Filt Rate - Afr Amer 192 mL/min (>60); Estimated Creatinine Clearance 151.59 ml/min; Globulin 3.2 g/dL (2.2-4.2); Glucose 104 mg/dL (74-106); Lipase 71 U/L (13-75); Potassium 3.6 mmol/L (3.5-5.1); Protein, Total 5.4 g/dL (6.4-8.2); Sodium Level 143 mmol/L (136-145)
[2023-01-05 14:33] LABS: Differential Indicated SCAN CRITERIA MET
[2023-01-05 15:53] VITALS: BP 121/72; PULSE 66; RESP 15; TEMP 36.8
== END 2023-01-05 15:56 | disposition home or self-care (01) ==
LOC: ED 12:17
PROVIDERS: Emergency Provider Student in an Organized Health Care Education/Training Program; PCP Internal Medicine; Visit Provider Student in an Organized Health Care Education/Training Program
DX: R53.1 Weakness (principal); E11.9 Type 2 diabetes mellitus without complications; R11.0 Nausea; D64.9 Anemia, unspecified; I10 Essential (primary) hypertension; Z87.891 Personal history of nicotine dependence
CPT/HCPCS: 80053; 82140; 82274; 83690; 85025; 96360; 96361; 99283; J7030; A4216

== ENCOUNTER 2023-01-16 08:12 | Outpatient (RCR) | payer BC, SELFPAY ==
[2023-01-16 09:23] LABS: International Normalized Ratio 1.7; Prothrombin Time (Protime)PT. 19.8 SECONDS (11.7-14.9)
[2023-01-16 09:24] LABS: ALB/GLOB Ratio 0.7 RATIO (0.9-2.4); AST(SGOT) 62 U/L (15-37); Alanine Aminotransfer ALT/SGPT 29 U/L (16-61); Albumin, Serum 2.6 g/dL (3.2-5.0); Alkaline Phosphatase 324 U/L (45-117); Anion Gap 3 (5-15); BUN 8 mg/dL (7-18); BUN/Creat Ratio 10.4 RATIO (10-20); Calcium,Total 8.3 mg/dL (8.5-10.1); Chloride 114 mmol/L (98-107); Creatinine, Serum 0.77 mg/dL (0.70-1.30); EST Glomerular Filtration Rate 115 mL/min (>60); Est Glom Filt Rate - Afr Amer 139 mL/min (>60); Globulin 3.5 g/dL (2.2-4.2); Glucose 112 mg/dL (74-106); Potassium 4.4 mmol/L (3.5-5.1); Protein, Total 6.1 g/dL (6.4-8.2); Sodium Level 143 mmol/L (136-145)
== END 2023-02-13 18:00 | disposition home or self-care (01) ==
LOC: LAB 08:12
PROVIDERS: PCP Internal Medicine; Referring Provider Internal Medicine Gastroenterology; Visit Provider Internal Medicine Gastroenterology
DX: K74.60 Unspecified cirrhosis of liver (principal)
CPT/HCPCS: 36415; 80053; 85610

== ENCOUNTER 2023-01-27 13:49 | Emergency (ER) | payer BC, SELFPAY ==
[2023-01-27 13:50] VITALS: BP 154/92; PULSE 98; RESP 16; TEMP 36.9; O2SAT 100; BMI 21.1
[2023-01-27 15:00] VITALS: BP 136/64; PULSE 78; RESP 14; O2SAT 98
--- NOTE | 2023-01-27 15:02 | EX.ED.DYSGE1 ---
HPI <LALO Tan - Last Filed: 01/27/23 17:10> History of Present Illness Chief Complaint: Suicidal Narrative Narrative: 47-year-old male presents with worsening depression with suicidal ideation. Today he cut his left wrist with a knife but heard the voice of God telling him to stop so he brought himself in for evaluation. He states he has been very stressed due to financial issues. He used to have a well paying job but he lost his job and works at [employer] and is also paying child support. He lives alone with his support cat. He states he is on an antidepressant that he thinks was prescribed through the emergency room as he does not see a counselor or psychiatrist. He has history of suicidal ideation but denies attempts in the past. He also has a history of alcoholic cirrhosis states he no longer drinks. He smokes pipe tobacco and uses edibles. PFS <LALO Tan - Last Filed: 01/27/23 17:10> [facility] Medical History Alcoholic hepatitis Carrier of hemochromatosis HFE gene mutation Cirrhosis Diabetes mellitus type 2 in nonobese Dietary restriction Former smoker Gastric reflux Gout Hepatic encephalopathy History of edema History of panic attacks History of stress test HTN (hypertension) Hx of gout Liver damage Seasonal allergies Sleep apnea Trauma Home Medications folic acid 1 mg tablet 1 mg PO DAILY #90 tabs 05/02/22 [Rx Last Taken Unknown] furosemide 40 mg tablet See Rx Instructions .Route .COMPLEX #30 TABLETS 05/27/22 [Rx Last Taken Unknown] rifaximin 550 mg tablet (Xifaxan) See Rx Instructions .Route .COMPLEX #60 tabs 05/30/22 [Rx Last Taken Unknown] metronidazole 500 mg tablet 500 mg PO Q8 #0 tabs 06/21/22 [Rx Last Taken Unknown] thiamine HCl (vitamin B1) 100 mg tablet (Vitamin B-1) 200 mg (2 x 100 mg) PO BID #60 tabs 06/21/22 [Rx Last Taken Unknown] trazodone 50 mg tablet See Rx Instructions PO QHS PRN sleep #30 tabs 06/27/22 [Rx Last Taken Unknown] scopolamine base 1 mg over 3 days transdermal patch 1 patch transdermal Q72H #10 ea 08/10/22 [Rx Last Taken Unknown] sertraline 50 mg tablet (Zoloft) 50 mg PO DAILY #90 tabs 08/10/22 [Rx Last Taken Unknown] lactulose 20 gram/30 mL oral solution BID 12/21/22 [History Last Taken Unknown] pantoprazole 40 mg tablet,delayed release 40 mg PO DAILY 12/21/22 [History Last Taken Unknown] aripiprazole 2 mg tablet 2 mg PO QHS 01/05/23 [History Last Taken Unknown] promethazine 25 mg tablet 25 mg PO QHS PRN nausea and vomiting #30 tabs 01/05/23 [Rx Last Taken Unknown] Allergy/AdvReac Type Severity Reaction Status Date / Time pioglitazone Allergy Mild liver Verified 01/05/23 11:38 damange Family History Other CVA (cerebral vascular accident) Cancer Cirrhosis Heart disease Hypertension Thyroid disorder Surgical History History of esophagogastroduodenoscopy (EGD) History of surgery 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 CVS: Negative for chest pain Respiratory: Negative for shortness of breath. GI: Negative for abdominal pain, nausea, vomiting. Neuro: Negative for headache. EXAM <LALO Tan - Last Filed: 01/27/23 17:10> Physical Exam Narrative Exam Narrative: CONST: Patient sitting in no acute distress. EYES: Normal inspection. NECK: Normal inspection. RESP: No respiratory distress, CTAB. CVS: Regular rate and rhythm, no murmur, no gallop. SKIN: Superficial 3 cm abrasion left radial wrist. EXTREMITIES: Normal appearance, full ROM all extremities, 2+ radial pulses. NEURO: Oriented x4. PSYCH: Normal affect. Const Vital Signs: 01/27/23 13:50 01/27/23 15:00 Temperature 98.4 F Temperature Source Temporal Pulse Rate 98 78 Respiratory Rate 16 14 Blood Pressure 154/92 H 136/64 H Blood Pressure Mean 112 88 Pulse Ox 100 98 Oxygen Delivery Method Room Air Room Air <Dr. Nilay Rowland MD - Last Filed: 01/27/23 15:28> Physical Exam Const Vital Signs: 01/27/23 13:50 01/27/23 15:00 Temperature 98.4 F Temperature Source Temporal Pulse Rate 98 78 Respiratory Rate 16 14 Blood Pressure 154/92 H 136/64 H Blood Pressure Mean 112 88 Pulse Ox 100 98 Oxygen Delivery Method Room Air Room Air MDM <ALLO Tan - Last Filed: 01/27/23 17:10> MDM MDM Narrative Medical decision making narrative: Patient presents with suicidal ideation and superficially cut his left wrist. He appears well and nontoxic. Vital signs stable. He does have a flat affect but will make eye contact and has insight to his situation. His medical exam is unremarkable. The left wrist laceration was cleansed and is superficial and does not require closure. Social work will evaluate and labs were obtained for clearance if needed. Labs show normal white count of 4.5. Hemoglobin is stable at 10.0. BMP shows glucose of 292 consistent with his history of diabetes but no evidence of DKA. Normal electrolytes and renal function. LFTs at baseline with AST 55, ALT 31, total bilirubin 3.1. Tox screen positive for THC. Alcohol negative. COVID-19 test also negative. Patient was evaluated by social work who thinks he can have a safety plan to go home with plan to see IOP next week. Patient does seem to have good insight into his situation and has no intent to hurt himself now. He was frustrated that he cannot get in with a psychiatrist until May and was not aware there were other resources available. Patient was instructed to come back for any worsening symptoms and was discharged in stable condition. Lab Data Attestation: I reviewed the patient's lab results. Labs: Laboratory Results - last 24 hr 01/27/23 01/27/23 14:21 15:15 WBC 4.5 RBC 2.85 L Hgb 10.0 L Hct 30.0 L MCV 105.3 H MCH 35.1 H MCHC 33.3 RDW Std Deviation 67.5 H RDW Coeff of Kaela 17.2 H Plt Count 71 L MPV 10.5 Immature Gran % (Auto) 0.400 Neut % (Auto) 74.9 H Lymph % (Auto) 14.4 L Centre % (Auto) 7.9 Eos % (Auto) 2.0 Baso % (Auto) 0.4 Absolute Neuts (auto) 3.3 Absolute Lymphs (auto) 0.64 L Nucleated RBC % 0 Differential Comment SCANNED Sodium 143 Potassium 3.5 Chloride 111 H Carbon Dioxide 26.0 Anion Gap 6 BUN 12 Creatinine 0.87 Estim Creat Clear Calc 95.27 Est GFR (MDRD) Af Amer 121 Est GFR (MDRD) Non-Af 100 BUN/Creatinine Ratio 13.8 Glucose 292 H Calcium 7.8 L Total Bilirubin 3.10 H Direct Bilirubin 1.40 H AST 55 H ALT 31 Alkaline Phosphatase 246 H Total Protein 5.8 L Albumin 2.5 L Globulin 3.3 Urine Opiates Screen NEGATIVE Urine Methadone Screen NEGATIVE Ur Barbiturates Screen NEGATIVE Ur Phencyclidine Scrn NEGATIVE Ur Amphetamines Screen NEGATIVE MDMA (Ecstasy) Screen NEGATIVE U Benzodiazepines Scrn NEGATIVE Urine Cocaine Screen NEGATIVE U Cannabinoids Screen POSITIVE H Ur Drug Screen Comment Ethyl Alcohol < 3.0 <Dr. Nilay Rowland MD - Last Filed: 01/27/23 15:28> [facility] Lab Data Labs: Laboratory Results - last 24 hr 01/27/23 01/27/23 14:21 15:15 WBC 4.5 RBC 2.85 L Hgb 10.0 L Hct 30.0 L MCV 105.3 H MCH 35.1 H MCHC 33.3 RDW Std Deviation 67.5 H RDW Coeff of Kaela 17.2 H Plt Count 71 L MPV 10.5 Immature Gran % (Auto) 0.400 Neut % (Auto) 74.9 H Lymph % (Auto) 14.4 L Centre % (Auto) 7.9 Eos % (Auto) 2.0 Baso % (Auto) 0.4 Absolute Neuts (auto) 3.3 Absolute Lymphs (auto) 0.64 L Nucleated RBC % 0 Differential Comment SCANNED Sodium 143 Potassium 3.5 Chloride 111 H Carbon Dioxide 26.0 Anion Gap 6 BUN 12 Creatinine 0.87 Estim Creat Clear Calc 95.27 Est GFR (MDRD) Af Amer 121 Est GFR (MDRD) Non-Af 100 BUN/Creatinine Ratio 13.8 Glucose 292 H Calcium 7.8 L Total Bilirubin 3.10 H Direct Bilirubin 1.40 H AST 55 H ALT 31 Alkaline Phosphatase 246 H Total Protein 5.8 L Albumin 2.5 L Globulin 3.3 Urine Opiates Screen NEGATIVE Urine Methadone Screen NEGATIVE Ur Barbiturates Screen NEGATIVE Ur Phencyclidine Scrn NEGATIVE Ur Amphetamines Screen NEGATIVE MDMA (Ecstasy) Screen NEGATIVE U Benzodiazepines Scrn NEGATIVE Urine Cocaine Screen NEGATIVE U Cannabinoids Screen POSITIVE H Ur Drug Screen Comment Ethyl Alcohol < 3.0 Treatment and Re-Evaluation :: I have personally performed a face to face assessment of the patient and have reviewed the BLANCA Note. I performed a substantive portion of the visit including all aspects of the following. My nagel findings include: History: Patient's been having more problems with depression. He said suicidal thoughts. He is trying to get in to be seen but he is getting pushed off to April and May. He did cut his left dorsal lateral wrist today. But then he got her dad stating that this is not right and he should come in for help. He is actually very pleasant and cooperative here. He also has a history of liver disease and is on multiple meds for this. But he has not been having any problems or symptoms. He has no pain. He has no nausea vomiting. He feels well in regards to that. Exam: She is awake alert no acute distress. He is pleasant. He is cooperative. He is helpful. He does appear to have a little icterus color. But his abdomen is completely benign. There is an abrasion/superficial laceration on the left lateral wrist overlying the distal ulna. No active bleeding. Medical Decision Making: We will have medical work-up here including liver function test. We will have counselor see him. Results are pending at this time. Discharge Plan Triage Chief Complaint: Suicidal ED Midlevel Provider: Lynda Frances ED Provider: Nilay Rowland Dx/Rx/DC Orders Clinical Impression: Depression with suicidal ideation Instructions: CONTRACT, No Harm Prescriptions: No Action thiamine HCl (vitamin B1) [Vitamin B-1] 100 mg Tablet 200 mg PO BID Qty: 60 0RF metronidazole 500 mg Tablet 500 mg PO Q8 Qty: 0 0RF pantoprazole 40 mg tablet,delayed release (DR/EC) 40 mg PO DAILY Rx Instructions: take 1 tablet by mouth once daily lactulose 20 gram/30 mL solution BID Rx Instructions: take 30 milliliter by mouth four times a day aripiprazole 2 mg tablet 2 mg PO QHS Patient Comments: take 1 tablet by mouth once daily promethazine 25 mg tablet 25 mg PO QHS PRN (Reason: nausea and vomiting) Qty: 30 0RF folic acid 1 mg tablet 1 mg PO DAILY Qty: 90 3RF furosemide 40 mg tablet See Rx Instructions .ROUTE .COMPLEX Qty: 30 11RF Dose Instruction: take 1 tablet by mouth once daily Rx Instructions: take 1 tablet by mouth once daily Xifaxan 550 mg tablet See Rx Instructions .ROUTE .COMPLEX Qty: 60 11RF Dose Instruction: take 1 tablet by mouth twice a day Rx Instructions: take 1 tablet by mouth twice a day trazodone 50 mg tablet See Rx Instructions PO QHS PRN (Reason: sleep) Qty: 30 1RF Rx Instructions: May take 1/2 to 1 tablet nightly as needed scopolamine base 1 mg over 3 days patch 3 day 1 patch transdermal Q72H Qty: 10 2RF sertraline [Zoloft] 50 mg tablet 50 mg PO DAILY Qty: 90 1RF Primary Care Provider: tIa Goddard Referrals: Ita Goddard MD [Primary Care Provider] - Activity Restrictions/Additional Instructions: Follow-up with intensive outpatient psychiatry with the contact information provided to you here from the deicer repairer electric. Best wishes Disposition Disposition: Home, Self Care
[2023-01-27 15:05] LABS: Anion Gap 6 (5-15); BUN 12 mg/dL (7-18); BUN/Creat Ratio 13.8 RATIO (10-20); Calcium,Total 7.8 mg/dL (8.5-10.1); Chloride 111 mmol/L (98-107); Creatinine, Serum 0.87 mg/dL (0.70-1.30); EST Glomerular Filtration Rate 100 mL/min (>60); Est Glom Filt Rate - Afr Amer 121 mL/min (>60); Estimated Creatinine Clearance 95.27 ml/min; Glucose 292 mg/dL (74-106); Potassium 3.5 mmol/L (3.5-5.1); Sodium Level 143 mmol/L (136-145)
[2023-01-27 15:11] LABS: Absolute Lymphocyte Count 0.64 X10^3/uL (0.83-4.51); Absolute Neutrophil Count 3.3 X10^3/uL (2.0-7.7); Amphetamine Urine VISTA NEGATIVE (<1000 ng/mL); Barbiturate Urine VISTA NEGATIVE (< 200 ng/mL); Basophil# 0.02 X10^3/uL; Basophil% 0.4 % (0-1); Benzodiazepine Urine VISTA NEGATIVE (< 200 ng/mL); Cocaine Urine VISTA NEGATIVE (< 300 ng/mL); Ecstacy Urine VISTA NEGATIVE (< 500 ng/mL); Eosinophil# 0.09 X10^3/uL; Lymphocyte # 0.64 X10^3/ul (0.83-4.51); Lymphocyte % 14.4 % (19-41); Mean Corp Hgb Conc 33.3 g/dL (32-36); Mean Corpuscular Hgb 35.1 pg (27.0-32.0); Mean Corpuscular Volume 105.3 fL (80-94); Mean Platelet Vol. 10.5 fl (6.2-12.0); Methadone Urine VISTA NEGATIVE (< 300 ng/mL); Monocyte# 0.35 X10^3/uL; Monocyte% 7.9 % (0-10); NRBC Flagged by Analyzer 0 % (0-5); Neutrophil # 3.33 X10^3/uL (2.7-7.7); Neutrophil % 74.9 % (47-70); PCP Urine VISTA NEGATIVE (< 25 ng/mL); POSITIVE COUNT YES; POSITIVE MORPHOLOGY YES; Platelet Count 71 K/mm3 (150-450); RBC Distribution Width CV 17.2 % (11.6-14.6); RBC Distribution Width SD 67.5 fl (35.1-43.9); Red Blood Count 2.85 M/mm3 (4.6-6.2); THC Urine VISTA POSITIVE (< 50 ng/mL); Vista UDS pH Range 5; White Blood Count 4.5 K/mm3 (4.4-11.0)
[2023-01-27 15:12] LABS: Differential Indicated SCAN CRITERIA MET
[2023-01-27 15:40] LABS: Differential Comment SCANNED
[2023-01-27 15:56] LABS: AST(SGOT) 55 U/L (15-37); Alanine Aminotransfer ALT/SGPT 31 U/L (16-61); Albumin, Serum 2.5 g/dL (3.2-5.0); Alkaline Phosphatase 246 U/L (45-117); Globulin 3.3 g/dL (2.2-4.2); Protein, Total 5.8 g/dL (6.4-8.2)
[2023-01-27 15:58] LABS: Alcohol, Blood (Medical)-Serum < 3.0 mg/dL
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
[2023-01-27 17:09] VITALS: BP 134/78; PULSE 64; RESP 14; TEMP 36.6; O2SAT 99
--- NOTE | 2023-01-30 10:39 | CM.ED ---
Social Work SW left voicemsil for follow-up call with patient. Status post safety plan. Luana Balbuena [employer], [employer]
== END 2023-01-27 17:16 | disposition home or self-care (01) ==
PROVIDERS: Physician Assistant; Emergency Provider Emergency Medicine; PCP Internal Medicine; Visit Provider Emergency Medicine
DX: R45.851 Suicidal ideations (principal); X78.9XXA Intentional self-harm by unspecified sharp object, initial encounter; E11.9 Type 2 diabetes mellitus without complications; I10 Essential (primary) hypertension; F32.A Depression, unspecified; Z87.891 Personal history of nicotine dependence; S61.512A Laceration without foreign body of left wrist, initial encounter; Z79.899 Other long term (current) drug therapy; Z59.86 Financial insecurity
CPT/HCPCS: 36415; 80048; 80076; 80307; 82077; 85025; 87811; 99283

== ENCOUNTER 2023-01-29 12:00 | Emergency (ER) | payer BC, SELFPAY ==
[2023-01-29] VITALS (10 sets, daily range): BP systolic 115–144; BP diastolic 58–72; PULSE 68–81; RESP 16–18; TEMP 36.4–37.1; O2SAT 96–100; BMI 29.5
--- NOTE | 2023-01-29 12:17 | EX.ED.VIS.PS ---
HPI HPI - Psych History of Present Illness Chief Complaint: Suicidal Narrative Narrative: 47-year-old male past medical history of depression and anxiety presents with [place] police because of suicidal ideation and depression. They note that he was seen in the emergency department the other day, spoke with a counselor, and was safety planned. He had cut his wrists with a knife a few days ago. He states he has had longstanding depression for which he takes sertraline 3 times a day. His depression heightened when he states his left him back in November, almost 2 months ago after 15 years of marriage. He states that he does not have any friends because all of their friends were hers and that no one wants to speak to him any longer. He has been picking at the cuts on his wrist, but reportedly locked a knife in his trunk because he does not want to do anything drastic. He then called his , and the police were called eventually to bring him to the emergency department. [facility] Medical History Alcoholic hepatitis Carrier of hemochromatosis HFE gene mutation Cirrhosis Diabetes mellitus type 2 in nonobese Dietary restriction Former smoker Gastric reflux Gout Hepatic encephalopathy History of edema History of panic attacks History of stress test HTN (hypertension) Hx of gout Liver damage Seasonal allergies Sleep apnea Trauma Home Medications folic acid 1 mg tablet 1 mg PO DAILY #90 tabs 05/02/22 [Rx Last Taken Unknown] furosemide 40 mg tablet See Rx Instructions .Route .COMPLEX #30 TABLETS 05/27/22 [Rx Last Taken Unknown] rifaximin 550 mg tablet (Xifaxan) See Rx Instructions .Route .COMPLEX #60 tabs 05/30/22 [Rx Last Taken Unknown] metronidazole 500 mg tablet 500 mg PO Q8 #0 tabs 06/21/22 [Rx Last Taken Unknown] thiamine HCl (vitamin B1) 100 mg tablet (Vitamin B-1) 200 mg (2 x 100 mg) PO BID #60 tabs 06/21/22 [Rx Last Taken Unknown] trazodone 50 mg tablet See Rx Instructions PO QHS PRN sleep #30 tabs 06/27/22 [Rx Last Taken Unknown] scopolamine base 1 mg over 3 days transdermal patch 1 patch transdermal Q72H #10 ea 08/10/22 [Rx Last Taken Unknown] sertraline 50 mg tablet (Zoloft) 50 mg PO DAILY #90 tabs 08/10/22 [Rx Last Taken Unknown] lactulose 20 gram/30 mL oral solution BID 12/21/22 [History Last Taken Unknown] pantoprazole 40 mg tablet,delayed release 40 mg PO DAILY 12/21/22 [History Last Taken Unknown] aripiprazole 2 mg tablet 2 mg PO QHS 01/05/23 [History Last Taken Unknown] promethazine 25 mg tablet 25 mg PO QHS PRN nausea and vomiting #30 tabs 01/05/23 [Rx Last Taken Unknown] metronidazole 375 mg capsule mg 01/29/23 [History Last Taken Unknown] Allergy/AdvReac Type Severity Reaction Status Date / Time pioglitazone Allergy Mild liver Verified 01/29/23 12:26 damange Family History Other CVA (cerebral vascular accident) Cancer Cirrhosis Heart disease Hypertension Thyroid disorder Surgical History History of esophagogastroduodenoscopy (EGD) History of surgery 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 HEENT: No sore throat. No neck pain. No loss of vision. No rhinorrhea. Cardiovascular: No chest pain. No palpitations. No pedal edema. Respiratory: No cough, no shortness of breath. Abdominal: No abdominal pain. No nausea. No vomiting. Genitourinary: No dysuria. No hematuria. Musculoskeletal: No myalgias. No arthralgias. Neurologic: No headaches. No dizziness. No lightheadedness. Skin: No rash. No change in color. Psychiatric: Positive depression. No anxiety. Suicidal ideation. EXAM Physical Exam Narrative Exam Narrative: Afebrile. Vital signs noted. HEENT: Normocephalic. Atraumatic. PERRL, EOMI. Neck soft and supple. No point tenderness or step off. Cardiovascular: Regular rate and rhythm. No murmurs, rubs, or gallops appreciated. Respiratory: No tachypnea. Lungs clear to auscultation bilaterally. Gastrointestinal: Abdomen soft, nontender, with normoactive bowel sounds. No rebound or guarding. Neurological: Awake. Alert. Nonfocal, nonlateralizing. Skin: No rash. Normal color. No pallor. Musculoskeletal: No pedal edema. Full range of motion extremities. Psychiatric: Positive depression/depressed affect. Positive suicidal ideation. Normal appetite, normal sleeping habits reported. Const Vital Signs: 01/29/23 12:01 01/29/23 12:23 01/29/23 13:45 Temperature 98.8 F 97.8 F 97.6 F L Temperature Source Temporal Temporal Temporal Pulse Rate 81 72 Respiratory Rate 16 16 Blood Pressure 144/58 H 122/66 H Blood Pressure Mean 86 84 Pulse Ox 96 100 Oxygen Delivery Method Room Air Room Air 01/29/23 15:00 01/29/23 16:52 01/29/23 17:00 Temperature Temperature Source Pulse Rate 72 72 70 Respiratory Rate 16 16 18 Blood Pressure Blood Pressure Mean Pulse Ox 97 97 Oxygen Delivery Method Room Air 01/29/23 18:46 01/29/23 19:00 01/29/23 21:06 Temperature Temperature Source Pulse Rate 68 76 76 Respiratory Rate 16 18 16 Blood Pressure 115/72 Blood Pressure Mean 86 Pulse Ox 100 100 Oxygen Delivery Method Room Air Room Air MDM MDM MDM Narrative Medical decision making narrative: I reviewed the patient's prior records. As he has a return visit I do feel medical clearance labs should be obtained for evaluation by crisis to see if he now requires admission at a psychiatric facility. I reviewed his laboratory work and he has slight neutropenia 4.1 which I think is nonspecific, hemoglobin slightly low but stable at 10.2, platelet count low at 79. This is a chronic thrombocytopenia. Review of his electrolyte panel shows glucose appropriately elevated at 158 with a normal anion gap of 6. BUN and creatinine are normal at 9 and 1.03 respectively. He has slightly elevated AST of 52 which think is nonspecific as well. Additionally it is chronically elevated as is his alk phos. Alcohol is negative. Additionally urine for drugs of abuse is positive for cannabinoids. There has not been significant change from his laboratory work from 2 days ago. At this point in time, I feel he is medically cleared for evaluation by mental health/crisis. In discussion with the crisis counselor, the patient has been mildly evasive and telling different stories. He did not disclose that he was admitted at a psychiatric facility in [place] in June of last year. It was thought that he would benefit from further psychiatric evaluation and treatment as he has been feeling helpless and hopeless, and is also concerned about his finances to take care of his basic needs. He has been accepted at the [facility] for psychiatry. Disposition is transferred in stable condition. History & Record Review Discussion w/independent historian: Patient Additional record(s) reviewed:: Prior ED visit Lab Data Attestation: I reviewed the patient's lab results. Labs: Laboratory Results - last 24 hr 01/29/23 12:45 WBC 4.1 L RBC 2.83 L Hgb 10.2 L Hct 30.1 L MCV 106.4 H MCH 36.0 H MCHC 33.9 RDW Std Deviation 69.5 H RDW Coeff of Kaela 17.6 H Plt Count 79 L MPV 9.9 Immature Gran % (Auto) 0.200 Neut % (Auto) 68.8 Lymph % (Auto) 17.2 L Baxter % (Auto) 8.5 Eos % (Auto) 4.6 Baso % (Auto) 0.7 Absolute Neuts (auto) 2.8 Absolute Lymphs (auto) 0.71 L Nucleated RBC % 0 Platelet Estimate SLT DEC Hypochromasia RARE Poikilocytosis 1+ Anisocytosis 1+ Macrocytosis 1+ Ovalocytes 1+ Sodium 142 Potassium 3.7 Chloride 110 H Carbon Dioxide 26.0 Anion Gap 6 BUN 9 Creatinine 1.03 Estim Creat Clear Calc 87.71 Est GFR (MDRD) Af Amer 99 Est GFR (MDRD) Non-Af 82 BUN/Creatinine Ratio 8.7 L Glucose 158 H Calcium 7.7 L Total Bilirubin 3.10 H AST 52 H ALT 30 Alkaline Phosphatase 257 H Total Protein 6.1 L Albumin 2.5 L Globulin 3.6 Albumin/Globulin Ratio 0.7 L Urine Opiates Screen NEGATIVE Urine Methadone Screen NEGATIVE Ur Barbiturates Screen NEGATIVE Ur Phencyclidine Scrn NEGATIVE Ur Amphetamines Screen NEGATIVE MDMA (Ecstasy) Screen NEGATIVE U Benzodiazepines Scrn NEGATIVE Urine Cocaine Screen NEGATIVE U Cannabinoids Screen POSITIVE H Ur Drug Screen Comment Ethyl Alcohol < 3.0 Discharge Plan Triage Chief Complaint: Suicidal ED Provider: Baljeet Mckeon Dx/Rx/DC Orders Clinical Impression: Depression, Cirrhosis, Suicidal ideation Prescriptions: No Action thiamine HCl (vitamin B1) [Vitamin B-1] 100 mg Tablet 200 mg PO BID Qty: 60 0RF metronidazole 500 mg Tablet 500 mg PO Q8 Qty: 0 0RF pantoprazole 40 mg tablet,delayed release (DR/EC) 40 mg PO DAILY Rx Instructions: take 1 tablet by mouth once daily lactulose 20 gram/30 mL solution BID Rx Instructions: take 30 milliliter by mouth four times a day aripiprazole 2 mg tablet 2 mg PO QHS Patient Comments: take 1 tablet by mouth once daily promethazine 25 mg tablet 25 mg PO QHS PRN (Reason: nausea and vomiting) Qty: 30 0RF metronidazole 375 mg capsule Patient Comments: take 1 capsule by mouth three times a day folic acid 1 mg tablet 1 mg PO DAILY Qty: 90 3RF furosemide 40 mg tablet See Rx Instructions .ROUTE .COMPLEX Qty: 30 11RF Dose Instruction: take 1 tablet by mouth once daily Rx Instructions: take 1 tablet by mouth once daily Xifaxan 550 mg tablet See Rx Instructions .ROUTE .COMPLEX Qty: 60 11RF Dose Instruction: take 1 tablet by mouth twice a day Rx Instructions: take 1 tablet by mouth twice a day trazodone 50 mg tablet See Rx Instructions PO QHS PRN (Reason: sleep) Qty: 30 1RF Rx Instructions: May take 1/2 to 1 tablet nightly as needed scopolamine base 1 mg over 3 days patch 3 day 1 patch transdermal Q72H Qty: 10 2RF sertraline [Zoloft] 50 mg tablet 50 mg PO DAILY Qty: 90 1RF Primary Care Provider: Ita Goddard Referrals: Ita Goddard MD [Primary Care Provider] - Disposition Disposition: Psychiatric Hospital or Unit Discharge Location: [facility]
[2023-01-29 13:08] LABS: Absolute Lymphocyte Count 0.71 X10^3/uL (0.83-4.51); Absolute Neutrophil Count 2.8 X10^3/uL (2.0-7.7); Basophil# 0.03 X10^3/uL; Basophil% 0.7 % (0-1); Eosinophil# 0.19 X10^3/uL; Eosinophils% 4.6 % (0-5); Hematocrit 30.1 % (40-54); Hemoglobin 10.2 g/dL (13.0-16.5); Lymphocyte # 0.71 X10^3/ul (0.83-4.51); Lymphocyte % 17.2 % (19-41); Mean Corp Hgb Conc 33.9 g/dL (32-36); Mean Corpuscular Volume 106.4 fL (80-94); Mean Platelet Vol. 9.9 fl (6.2-12.0); Monocyte# 0.35 X10^3/uL; Monocyte% 8.5 % (0-10); NRBC Flagged by Analyzer 0 % (0-5); Neutrophil # 2.83 X10^3/uL (2.7-7.7); Neutrophil % 68.8 % (47-70); POSITIVE COUNT YES; POSITIVE MORPHOLOGY YES; Platelet Count 79 K/mm3 (150-450); RBC Distribution Width CV 17.6 % (11.6-14.6); RBC Distribution Width SD 69.5 fl (35.1-43.9); Red Blood Count 2.83 M/mm3 (4.6-6.2); White Blood Count 4.1 K/mm3 (4.4-11.0)
[2023-01-29 13:12] LABS: Differential Indicated SCAN CRITERIA MET
[2023-01-29 13:14] LABS: Alcohol, Blood (Medical)-Serum < 3.0 mg/dL
[2023-01-29 13:15] LABS: ALB/GLOB Ratio 0.7 RATIO (0.9-2.4); AST(SGOT) 52 U/L (15-37); Alanine Aminotransfer ALT/SGPT 30 U/L (16-61); Albumin, Serum 2.5 g/dL (3.2-5.0); Alkaline Phosphatase 257 U/L (45-117); Anion Gap 6 (5-15); BUN 9 mg/dL (7-18); BUN/Creat Ratio 8.7 RATIO (10-20); Calcium,Total 7.7 mg/dL (8.5-10.1); Chloride 110 mmol/L (98-107); Creatinine, Serum 1.03 mg/dL (0.70-1.30); EST Glomerular Filtration Rate 82 mL/min (>60); Est Glom Filt Rate - Afr Amer 99 mL/min (>60); Estimated Creatinine Clearance 87.71 ml/min; Globulin 3.6 g/dL (2.2-4.2); Glucose 158 mg/dL (74-106); Potassium 3.7 mmol/L (3.5-5.1); Protein, Total 6.1 g/dL (6.4-8.2); Sodium Level 142 mmol/L (136-145)
[2023-01-29 13:17] LABS: Amphetamine Urine VISTA NEGATIVE (<1000 ng/mL); Barbiturate Urine VISTA NEGATIVE (< 200 ng/mL); Benzodiazepine Urine VISTA NEGATIVE (< 200 ng/mL); Cocaine Urine VISTA NEGATIVE (< 300 ng/mL); Ecstacy Urine VISTA NEGATIVE (< 500 ng/mL); Methadone Urine VISTA NEGATIVE (< 300 ng/mL); PCP Urine VISTA NEGATIVE (< 25 ng/mL); THC Urine VISTA POSITIVE (< 50 ng/mL); Vista UDS pH Range 5
[2023-01-29 13:34] LABS: Platelet Estimate SLT DEC (ADEQ)
[2023-01-29 13:35] LABS: Anisocytosis 1+; Hypochromasia RARE; Macrocytosis 1+; Ovalocyte 1+; Poikilocytosis 1+
--- NOTE | 2023-01-29 13:56 | ED.RN ---
CRISIS CALLED AND FAXED AT [phone].
[2023-01-29] MEDS: rifAXIMin 550 MG Tablet PO (16:50)
[2023-01-29] MEDS: Sertraline 50 MG Tablet PO (16:50)
--- NOTE | 2023-01-29 22:04 | ED.RN ---
Left message for [facility] to give report.
== END 2023-01-29 22:04 ==
PROVIDERS: Emergency Provider Emergency Medicine; PCP Internal Medicine; Visit Provider Emergency Medicine
DX: R45.851 Suicidal ideations (principal); K74.60 Unspecified cirrhosis of liver; X78.1XXA Intentional self-harm by knife, initial encounter; D69.6 Thrombocytopenia, unspecified; E11.9 Type 2 diabetes mellitus without complications; F41.9 Anxiety disorder, unspecified; F32.A Depression, unspecified; Z87.891 Personal history of nicotine dependence; I10 Essential (primary) hypertension; Z79.899 Other long term (current) drug therapy; S61.519A Laceration without foreign body of unspecified wrist, initial encounter
CPT/HCPCS: 80053; 80307; 82077; 85025; 87811; 99285

== ENCOUNTER 2023-02-02 22:08 | Emergency (ER) | payer BC, SELFPAY ==
[2023-02-02 22:09] VITALS: BP 151/86; PULSE 84; RESP 18; TEMP 36.3; O2SAT 98; BMI 22.8
--- NOTE | 2023-02-02 22:36 | EDS_ITS ---
HPI HPI - Psych History of Present Illness Chief Complaint: Mental Health Informant: patient Narrative Narrative: Patient brought under pink slip by police after he called 911 a couple times, initially because he was locked out of his vehicle and then because he was stressed and going through a lot and having thoughts of harming himself, with plan to use a knife and cut himself. He is denying suicide intent right now but agrees that he has been having thoughts of it. Apparently he was just sent to [facility] for similar issues 4 days ago. He denies any physical complaints right now. He states he is a cirrhosis patient who is in good health otherwise and stable with the medications he is on. He is trying to get on a transplant list. He denies any drug or alcohol use recently, he has a history of using THC analogs in the past. No IV drug use. Used to use alcohol but no longer. [facility] Medical History Alcoholic hepatitis Carrier of hemochromatosis HFE gene mutation Cirrhosis Diabetes mellitus type 2 in nonobese Dietary restriction Former smoker Gastric reflux Gout Hepatic encephalopathy History of edema History of panic attacks History of stress test HTN (hypertension) Hx of gout Liver damage Seasonal allergies Sleep apnea Suicide attempt Trauma Home Medications folic acid 1 mg tablet 1 mg PO DAILY #90 tabs 05/02/22 [Rx Last Taken Unknown] furosemide 40 mg tablet See Rx Instructions .Route .COMPLEX #30 TABLETS 05/27/22 [Rx Last Taken Unknown] rifaximin 550 mg tablet (Xifaxan) See Rx Instructions .Route .COMPLEX #60 tabs 05/30/22 [Rx Last Taken Unknown] thiamine HCl (vitamin B1) 100 mg tablet (Vitamin B-1) 200 mg (2 x 100 mg) PO BID #60 tabs 06/21/22 [Rx Last Taken Unknown] trazodone 50 mg tablet See Rx Instructions PO QHS PRN sleep #30 tabs 06/27/22 [Rx Last Taken Unknown] sertraline 50 mg tablet (Zoloft) 50 mg PO DAILY #90 tabs 08/10/22 [Rx Last Taken Unknown] pantoprazole 40 mg tablet,delayed release 40 mg PO DAILY 12/21/22 [History Last Taken Unknown] aripiprazole 2 mg tablet 2 mg PO QHS 01/05/23 [History Last Taken Unknown] promethazine 25 mg tablet 25 mg PO QHS PRN nausea and vomiting #30 tabs 01/05/23 [Rx Last Taken Unknown] scopolamine base 1 mg over 3 days transdermal patch 1 patch transdermal Q72H #10 ea 02/02/23 [Rx Last Taken Unknown] Allergy/AdvReac Type Severity Reaction Status Date / Time pioglitazone Allergy Mild liver Verified 02/02/23 22:12 damange Family History Other CVA (cerebral vascular accident) Cancer Cirrhosis Heart disease Hypertension Thyroid disorder Surgical History History of esophagogastroduodenoscopy (EGD) History of surgery 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 Status: Former smoker alcohol intake: former substance use type: does not use what type of physical activity do you participate in: other frequency: 1-2 times per week ROS ROS ED Constitutional Constitutional ED: Denies chills or fever(s) Eyes Eyes: Denies change in vision or diplopia ENT ENT ED: Denies rhinorrhea or sore throat Cardiovascular Cardiovascular: Denies chest pain or palpitations Respiratory/Chest Respiratory/Chest: Denies cough or dyspnea Gastrointestinal Gastrointestinal: Denies abdominal pain, diarrhea, nausea or vomiting Genitourinary Genitourinary ED: Denies dysuria or hematuria Musculoskeletal Musculoskeletal: Denies back pain or neck pain Integumentary Denies abscess or rash Neurologic Neurologic: Denies headache(s), paresthesias or weakness Psychiatric Psychiatric: Reports depression and suicidal thoughts; Denies homicidal ideation or suicidal ideation EXAM Physical Exam Const Vital Signs: 02/02/23 22:09 02/02/23 23:09 02/03/23 00:00 Temperature 97.3 F L Temperature Source Temporal Pulse Rate 84 Respiratory Rate 18 16 16 Blood Pressure 151/86 H Blood Pressure Mean 107 Pulse Ox 98 Oxygen Delivery Method Room Air 02/03/23 00:40 Temperature Temperature Source Pulse Rate Respiratory Rate 16 Blood Pressure Blood Pressure Mean Pulse Ox Oxygen Delivery Method Positive well nourished and well developed General Appearance ED: well developed and NAD HEENT Reports moist mucous membranes normocephalic and atraumatic Eyes PERRL and EOMs intact bilaterally General Eye ED: Negative for scleral icterus Neck no lymphadenopathy and supple Resp normal respiratory effort and clear to auscultation bilaterally Cardio no murmurs Rate: regular rate Rhythm: regular rhythm GI non-tender and non-distended Auscultation: normoactive bowel sounds Palpation: soft Back/Spine no CVA tenderness and normal ROM Extremity normal to inspection General Extremety ED: Negative for edema General Extremity: Negative for edema Neuro oriented x3, CN's II-XII intact bilaterally, no sensory deficits noted and gait normal Sensorium / Orientation: alert Motor Exam: strength 5/5 throughout Psych mental status grossly normal, thought process normal, cooperative, speech normal, activity/motor behavior normal, denies hallucinations and denies homicidal ideation Psych Narrative: Admits to suicidal thoughts but no suicidal ideation currently. Thought Content: suicidality Skin Lesions: no lesions Rashes: no rashes MDM MDM MDM Narrative Medical decision making narrative: Labs obtained, INR is abnormal but baseline for him due to his cirrhosis, his exam is unremarkable, labs are unremarkable otherwise, he is medically cleared and referred to crisis for further evaluation recommendations. Crisis saw and evaluated patient, they and patient agreed to a safety plan and DC home at this time. I think that is reasonable since he was just discharged from psychiatric hospital yesterday apparently. Lab Data Attestation: I reviewed the patient's lab results. Labs: Laboratory Results - last 24 hr 02/02/23 02/02/23 22:20 22:45 WBC 4.5 RBC 3.08 L Hgb 10.7 L Hct 33.1 L MCV 107.5 H MCH 34.7 H MCHC 32.3 RDW Std Deviation 67.7 H RDW Coeff of Kaela 17.1 H Plt Count 65 L MPV 9.7 Immature Gran % (Auto) 2.000 H Neut % (Auto) 63.4 Lymph % (Auto) 18.4 L [place] % (Auto) 12.4 H Eos % (Auto) 2.7 Baso % (Auto) 1.1 H Absolute Neuts (auto) 2.9 Absolute Lymphs (auto) 0.83 Nucleated RBC % 0.4 Differential Comment SCANNED Platelet Estimate MOD DEC Anisocytosis 1+ PT 18.0 H INR 1.5 Sodium 142 Potassium 3.6 Chloride 111 H Carbon Dioxide 28.0 Anion Gap 3 L BUN 10 Creatinine 0.73 Estim Creat Clear Calc 122.70 Est GFR (MDRD) Af Amer 148 Est GFR (MDRD) Non-Af 122 BUN/Creatinine Ratio 13.8 Glucose 102 Calcium 7.7 L Total Bilirubin 3.40 H AST 56 H ALT 33 Alkaline Phosphatase 271 H Total Protein 6.3 L Albumin 2.7 L Globulin 3.6 Albumin/Globulin Ratio 0.8 L Urine Opiates Screen NEGATIVE Urine Methadone Screen NEGATIVE Ur Barbiturates Screen NEGATIVE Ur Phencyclidine Scrn NEGATIVE Ur Amphetamines Screen NEGATIVE MDMA (Ecstasy) Screen NEGATIVE U Benzodiazepines Scrn NEGATIVE Urine Cocaine Screen NEGATIVE U Cannabinoids Screen POSITIVE H Ur Drug Screen Comment Ethyl Alcohol < 3.0 Discharge Plan Triage Chief Complaint: Mental Health ED Provider: Tao Velasquez Dx/Rx/DC Orders Clinical Impression: Suicidal thoughts Instructions: ED Depression Prescriptions: No Action thiamine HCl (vitamin B1) [Vitamin B-1] 100 mg Tablet 200 mg PO BID Qty: 60 0RF pantoprazole 40 mg tablet,delayed release (DR/EC) 40 mg PO DAILY Rx Instructions: take 1 tablet by mouth once daily aripiprazole 2 mg tablet 2 mg PO QHS Patient Comments: take 1 tablet by mouth once daily promethazine 25 mg tablet 25 mg PO QHS PRN (Reason: nausea and vomiting) Qty: 30 0RF folic acid 1 mg tablet 1 mg PO DAILY Qty: 90 3RF furosemide 40 mg tablet See Rx Instructions .ROUTE .COMPLEX Qty: 30 11RF Dose Instruction: take 1 tablet by mouth once daily Rx Instructions: take 1 tablet by mouth once daily Xifaxan 550 mg tablet See Rx Instructions .ROUTE .COMPLEX Qty: 60 11RF Dose Instruction: take 1 tablet by mouth twice a day Rx Instructions: take 1 tablet by mouth twice a day trazodone 50 mg tablet See Rx Instructions PO QHS PRN (Reason: sleep) Qty: 30 1RF Rx Instructions: May take 1/2 to 1 tablet nightly as needed sertraline [Zoloft] 50 mg tablet 50 mg PO DAILY Qty: 90 1RF scopolamine base 1 mg over 3 days patch 3 day 1 patch transdermal Q72H Qty: 10 2RF Primary Care Provider: Ita Goddard Referrals: Ita Goddard MD [Primary Care Provider] - As soon as possible (and/or your counselor) Disposition Disposition: Home, Self Care
--- NOTE | 2023-02-02 22:37 | ED.RN ---
per Dr Velasquez patient is low risk with no plan and does not require a sitter at this time.
[2023-02-02 23:08] LABS: Absolute Lymphocyte Count 0.83 X10^3/uL (0.83-4.51); Absolute Neutrophil Count 2.9 X10^3/uL (2.0-7.7); Basophil# 0.05 X10^3/uL; Basophil% 1.1 % (0-1); Eosinophil# 0.12 X10^3/uL; Eosinophils% 2.7 % (0-5); Hematocrit 33.1 % (40-54); Hemoglobin 10.7 g/dL (13.0-16.5); Lymphocyte # 0.83 X10^3/ul (0.83-4.51); Lymphocyte % 18.4 % (19-41); Mean Corp Hgb Conc 32.3 g/dL (32-36); Mean Corpuscular Hgb 34.7 pg (27.0-32.0); Mean Corpuscular Volume 107.5 fL (80-94); Mean Platelet Vol. 9.7 fl (6.2-12.0); Monocyte# 0.56 X10^3/uL; Monocyte% 12.4 % (0-10); NRBC Flagged by Analyzer 0.4 % (0-5); Neutrophil # 2.85 X10^3/uL (2.7-7.7); Neutrophil % 63.4 % (47-70); POSITIVE COUNT YES; POSITIVE MORPHOLOGY YES; Platelet Count 65 K/mm3 (150-450); RBC Distribution Width CV 17.1 % (11.6-14.6); RBC Distribution Width SD 67.7 fl (35.1-43.9); Red Blood Count 3.08 M/mm3 (4.6-6.2); White Blood Count 4.5 K/mm3 (4.4-11.0)
[2023-02-02 23:09] VITALS: RESP 16
[2023-02-02 23:09] LABS: International Normalized Ratio 1.5
[2023-02-02 23:12] LABS: Differential Indicated SCAN CRITERIA MET
[2023-02-02 23:16] LABS: ALB/GLOB Ratio 0.8 RATIO (0.9-2.4); AST(SGOT) 56 U/L (15-37); Alanine Aminotransfer ALT/SGPT 33 U/L (16-61); Albumin, Serum 2.7 g/dL (3.2-5.0); Alkaline Phosphatase 271 U/L (45-117); Anion Gap 3 (5-15); BUN 10 mg/dL (7-18); BUN/Creat Ratio 13.8 RATIO (10-20); Calcium,Total 7.7 mg/dL (8.5-10.1); Chloride 111 mmol/L (98-107); Creatinine, Serum 0.73 mg/dL (0.70-1.30); EST Glomerular Filtration Rate 122 mL/min (>60); Est Glom Filt Rate - Afr Amer 148 mL/min (>60); Globulin 3.6 g/dL (2.2-4.2); Glucose 102 mg/dL (74-106); Potassium 3.6 mmol/L (3.5-5.1); Protein, Total 6.3 g/dL (6.4-8.2); Sodium Level 142 mmol/L (136-145)
[2023-02-02 23:18] LABS: Alcohol, Blood (Medical)-Serum < 3.0 mg/dL
[2023-02-02 23:18] LABS: Amphetamine Urine VISTA NEGATIVE (<1000 ng/mL); Barbiturate Urine VISTA NEGATIVE (< 200 ng/mL); Benzodiazepine Urine VISTA NEGATIVE (< 200 ng/mL); Cocaine Urine VISTA NEGATIVE (< 300 ng/mL); Ecstacy Urine VISTA NEGATIVE (< 500 ng/mL); Methadone Urine VISTA NEGATIVE (< 300 ng/mL); PCP Urine VISTA NEGATIVE (< 25 ng/mL); THC Urine VISTA POSITIVE (< 50 ng/mL); Vista UDS pH Range 7
[2023-02-02 23:38] LABS: Anisocytosis 1+; Differential Comment SCANNED; Platelet Estimate MOD DEC (ADEQ)
[2023-02-03] VITALS: RESP 16
[2023-02-03 00:40] VITALS: RESP 16
[2023-02-03 02:23] VITALS: BP 121/74; PULSE 64; RESP 18; O2SAT 99
== END 2023-02-03 02:25 | disposition home or self-care (01) ==
PROVIDERS: Emergency Provider Emergency Medicine; PCP Internal Medicine; Visit Provider Emergency Medicine
DX: R45.851 Suicidal ideations (principal); K74.60 Unspecified cirrhosis of liver; E11.9 Type 2 diabetes mellitus without complications; Z87.891 Personal history of nicotine dependence; I10 Essential (primary) hypertension; F32.A Depression, unspecified
CPT/HCPCS: 80053; 80307; 82077; 85025; 85610; 87811; 99283

== ENCOUNTER 2023-02-06 22:14 | Emergency (ER) | payer BC, SELFPAY ==
[2023-02-06 22:23] VITALS: BP 142/80; PULSE 102; RESP 18; TEMP 37; BMI 23.6
--- NOTE | 2023-02-06 22:53 | EDS_ITS ---
HPI HPI - Psych History of Present Illness Chief Complaint: Suicidal Detail of Chief Complaint: Minor left wrist laceration tonight. Informant: patient Onset/Context/Timing Onset: Weeks Context: Gradual Onset Timing: Continuous Current Severity: Moderate Maximum Severity: Moderate Associated Symptoms Associated Symptoms - Psych: Positive for Depressed and Suicidal Thoughts Specific plan (suicidal thought): Wrist laceration Narrative Narrative: 47-year-old male history of cirrhosis, hypertension and underlying psychiatric illness. This is his third visit to this emergency department in the about the last week. He was just discharged about a week ago from [facility] psychiatry for depression and suicidal ideation. Said he was just upset tonight because he wanted to buy himself pizza none of his cards worked he could even get a $4 piece of pizza. He went home he was so upset that he cut his left wrist. Said he was just done. Prior similar symptoms: Yes Recent Illness/Hospitalization: Yes PFSH [facility] Medical History Alcoholic hepatitis Carrier of hemochromatosis HFE gene mutation Cirrhosis Diabetes mellitus type 2 in nonobese Dietary restriction Former smoker Gastric reflux Gout Hepatic encephalopathy History of edema History of panic attacks History of stress test HTN (hypertension) Hx of gout Liver damage Seasonal allergies Sleep apnea Suicide attempt Trauma Home Medications folic acid 1 mg tablet 1 mg PO DAILY #90 tabs 05/02/22 [Rx Last Taken Unknown] thiamine HCl (vitamin B1) 100 mg tablet (Vitamin B-1) 200 mg (2 x 100 mg) PO BID #60 tabs 06/21/22 [Rx Last Taken Unknown] trazodone 50 mg tablet See Rx Instructions PO QHS PRN sleep #30 tabs 06/27/22 [Rx Last Taken Unknown] sertraline 50 mg tablet (Zoloft) 50 mg PO DAILY #90 tabs 08/10/22 [Rx Last Taken Unknown] pantoprazole 40 mg tablet,delayed release 40 mg PO DAILY 12/21/22 [History Last Taken Unknown] aripiprazole 2 mg tablet 2 mg PO QHS 01/05/23 [History Last Taken Unknown] promethazine 25 mg tablet 25 mg PO QHS PRN nausea and vomiting #30 tabs 01/05/23 [Rx Last Taken Unknown] scopolamine base 1 mg over 3 days transdermal patch 1 patch transdermal Q72H #10 ea 02/02/23 [Rx Last Taken Unknown] furosemide 40 mg tablet 40 mg PO DAILY 02/07/23 [History Last Taken 02/06/23] rifaximin 550 mg tablet (Xifaxan) 550 mg PO BID 02/07/23 [History Last Taken 02/06/23] Allergy/AdvReac Type Severity Reaction Status Date / Time pioglitazone Allergy Mild liver Verified 02/06/23 22:30 damange Family History Other CVA (cerebral vascular accident) Cancer Cirrhosis Heart disease Hypertension Thyroid disorder Surgical History History of esophagogastroduodenoscopy (EGD) History of surgery 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 Review of Systems ROS Unobtainable: Denies due to encephalopathy Constitutional Constitutional ED: Denies chills or fever(s) Eyes Eyes: Denies blurry vision ENT ENT ED: Denies ear pain Cardiovascular Cardiovascular: Denies chest pain Respiratory/Chest Respiratory/Chest: Denies cough Genitourinary Genitourinary ED: Denies dysuria Musculoskeletal Musculoskeletal: Denies arthralgias Integumentary Denies abscess Neurologic Neurologic: Denies headache(s) Psychiatric Psychiatric: Denies anxiety Endocrine Endocrinology: Denies polydipsia Hematologic/Lymphatic Hematologic/Lymphatic: Denies easy bleeding Allergic/Immunologic Allergic/Immunologic ED: Denies mouth swelling EXAM Physical Exam Narrative Exam Narrative: Well-appearing 47-year-old male standing and sat in the bed. Vital signs are stable afebrile. He does not look septic toxic is in no distress. He is cooperative. Makes eye contact. At this moment he is not verbally abusive or physically confrontational. HEENT exam unremarkable. Neck nontender. No trauma. Lungs clear. Heart regular rhythm no murmur. Chest wall nontender. Abdomen soft nontender. Back nontender. Moving all 4 extremities. 1+ pitting edema both lower extremities which is chronic. He does have a superficial laceration on the radial side of his left distal forearm just proximal to the wrist. It is only about a centimeter in length. Its not deep. There is no active bleeding. It does not need to be repaired. It will be cleaned and dressed. Both upper and lower extremities neurovascular intact. Patient is awake alert. No obvious toxidrome. No smell of alcohol currently. Answering questions and following commands. He is able to ambulate. Const Vital Signs: 02/06/23 22:23 02/06/23 23:13 02/06/23 23:13 Temperature 98.6 F 98.6 F 97.9 F Temperature Source Temporal Temporal Temporal Pulse Rate 102 H 102 H Respiratory Rate 18 18 Blood Pressure 142/80 H 142/80 H Blood Pressure Mean 100 100 Positive well nourished and well developed; Negative for cachectic, contractures or unkempt General Appearance ED: well developed and NAD; Negative for unkempt, cachectic, contractures or pallor Nutritional Appearance: Negative for cachectic HEENT Reports moist mucous membranes normocephalic and atraumatic; Negative for trauma or tenderness Eyes PERRL and EOMs intact bilaterally General Eye ED: Negative for pale conjunctiva or scleral icterus Neck no lymphadenopathy, supple and no JVD General: Negative for tenderness Resp normal respiratory effort and clear to auscultation bilaterally Effort and Inspection: Negative for retractions Auscultation: Negative for rales, rhonchi or wheezes Cardio S1 normal heart sound, S2 normal heart sound and no murmurs Palpation: Negative for other Rate: regular rate Rhythm: regular rhythm GI non-tender, non-distended and no masses Inspection: Negative for abdominal distention Auscultation: normoactive bowel sounds Palpation: soft; Negative for tender or guarding Bladder / Kidney Exam: No other Back/Spine no CVA tenderness General Back: Negative for CVA tenderness Cervical Spine: Negative for cervical spine tenderness Thoracic Spine / Upper Back: Negative for thoracic spinal tenderness Lumbar Spine / Lower Back: Negative for lumbar spinal tenderness Coccyx: Negative for other Extremity Negative for normal to inspection Extremity Narrative: 1+ pitting edema bilaterally. General Extremety ED: Yes edema; Negative for tenderness or other findings General Extremity: edema; Negative for other findings Neuro oriented x3 and CN's II-XII intact bilaterally Sensorium / Orientation: alert, oriented to person, oriented to place and oriented to time; Negative for orientation impaired, confused, lethargic or stuporous Motor Exam: strength 5/5 throughout Psych cooperative, affect normal, speech normal, activity/motor behavior normal, denies hallucinations and denies homicidal ideation; Negative for denies suicidal ideation Appearance: grossly normal and appropriate; Negative for unkempt, disheveled, bi zarre or intubated Attitude: calm, engaged, No paranoid, No withdrawn, No bizarre, No uncooperative, No evasive, No guarded, No belligerent, No agitated, No aggressive and No hostile Activity / Motor Behavior: appropriate eye contact Speech: normal speech Mood & Affect: depressed Thought Process: normal thought process, No confused, No confabulating, No flight of ideas, No impoverished, No word salad and No racing thoughts Thought Content: suicidality Attention / Concentration: attention grossly intact Memory / Cognition: memory grossly intact Insight: insight good Judgement: judgement good Skin General Skin Exam: Negative for jaundice or pallor Lesions: no lesions Rashes: no rashes Trauma: Negative for abrasion Wounds: amputation MDM MDM MDM Narrative Medical decision making narrative: 47-year-old male history of visualized alcoholic cirrhosis. Underlying psychiatric history. Recent psychiatric hospitalization. Comes in tonight more depressed and suicidal and security of the 2 attempted to lacerate his left wrist. There is only a minor wound that will not be repaired. Undergoing ED mental health evaluation and irrigated with. Undergo a crisis evaluation determine if he needs a placed again or not. Repeat exam at 12:44 AM patient doing well. Resting comfortably. He is calm and collected. Sitter is in the room. Crisis is aware but is currently not been available to evaluate him as of yet. I do get the patient a sandwich and some water to drink. Patient doing well at 1:53 AM. I just spoke to the crisis personnel. She evaluated the patient and spoke to them at length. She knows this patient is evaluated him in the past. States he has a lot of life stressors. He has had recent inpatient. She does not feel that an admission today would make a big difference because he is in a go right back home to the same situation and is currently in. She is comfortable with him being discharged home with a safety plan. I discussed this with the patient and he is comfortable with the plan.. Also encouraged him to follow-up because a been reaching out to him and he does not seem to be following up with outpatient treatment. Lab Data Attestation: I reviewed the patient's lab results. Lab results narrative: CBC shows a white count 5.6. H&H 9.3 and 28.7. Platelets are low at 75,000. Compared to prior labs patient has a history of anemia this is consistent with h is normal levels. Also consistent with his chronic thrombocytopenia. Electrolytes show potassium 3.3. A gap of 5. A normal BUN and creatinine is 0.8. Urine tox screen is positive for ecstasy and cannabis. Alcohol is negative. Rapid COVID is negative. Labs: Laboratory Results - last 24 hr 02/06/23 23:04 WBC 5.6 RBC 2.64 L Hgb 9.3 L Hct 28.7 L MCV 108.7 H MCH 35.2 H MCHC 32.4 RDW Std Deviation 65.7 H RDW Coeff of Kaela 16.5 H Plt Count 75 L MPV 10.0 Immature Gran % (Auto) 0.400 Neut % (Auto) 65.3 Lymph % (Auto) 15.7 L Bergen % (Auto) 14.1 H Eos % (Auto) 3.4 Baso % (Auto) 1.1 H Absolute Neuts (auto) 3.7 Absolute Lymphs (auto) 0.88 Nucleated RBC % 0 Platelet Estimate MOD DEC Anisocytosis 1+ Macrocytosis 2+ Sodium 141 Potassium 3.3 L Chloride 111 H Carbon Dioxide 25.0 Anion Gap 5 BUN 9 Creatinine 0.82 Estim Creat Clear Calc 106.59 Est GFR (MDRD) Af Amer 129 Est GFR (MDRD) Non-Af 106 BUN/Creatinine Ratio 11.0 Glucose 142 H Calcium 7.7 L Urine Opiates Screen NEGATIVE Urine Methadone Screen NEGATIVE Ur Barbiturates Screen NEGATIVE Ur Phencyclidine Scrn NEGATIVE Ur Amphetamines Screen NEGATIVE MDMA (Ecstasy) Screen POSITIVE H U Benzodiazepines Scrn NEGATIVE Urine Cocaine Screen NEGATIVE U Cannabinoids Screen POSITIVE H Ur Drug Screen Comment Ethyl Alcohol < 3.0 Discharge Plan Triage Chief Complaint: Suicidal ED Provider: Carlos Lawrence Dx/Rx/DC Orders Clinical Impression: History of anemia of chronic disease, Depression with suicidal ideation, Depression, History of cirrhosis Instructions: ED Depression Prescriptions: No Action thiamine HCl (vitamin B1) [Vitamin B-1] 100 mg Tablet 200 mg PO BID Qty: 60 0RF pantoprazole 40 mg tablet,delayed release (DR/EC) 40 mg PO DAILY Rx Instructions: take 1 tablet by mouth once daily aripiprazole 2 mg tablet 2 mg PO QHS Patient Comments: take 1 tablet by mouth once daily promethazine 25 mg tablet 25 mg PO QHS PRN (Reason: nausea and vomiting) Qty: 30 0RF furosemide 40 mg tablet 40 mg PO DAILY Rx Instructions: take 1 tablet by mouth once daily Xifaxan 550 mg tablet 550 mg PO BID Rx Instructions: take 1 tablet by mouth twice a day folic acid 1 mg tablet 1 mg PO DAILY Qty: 90 3RF trazodone 50 mg tablet See Rx Instructions PO QHS PRN (Reason: sleep) Qty: 30 1RF Rx Instructions: May take 1/2 to 1 tablet nightly as needed sertraline [Zoloft] 50 mg tablet 50 mg PO DAILY Qty: 90 1RF scopolamine base 1 mg over 3 days patch 3 day 1 patch transdermal Q72H Qty: 10 2RF Primary Care Provider: Ita Goddard Referrals: Counseling,Center [Group of Physicians] - As soon as possible Ita Goddard MD [Primary Care Provider] - Activity Restrictions/Additional Instructions: Absolutely follow-up with the counseling center. I think there are resources will help you get on a better path and improve your current situation. If you are feeling worse or get to the point where you may hurt yourself or someone else obviously return to the emergency department. Disposition Disposition: Home, Self Care Discharge Date/Time: 02/07/23 02:45
[2023-02-06 23:13] VITALS: BP 142/80; PULSE 102; RESP 18; TEMP 36.6; TEMP 37; BMI 23.7
[2023-02-06 23:29] LABS: Anion Gap 5 (5-15); BUN 9 mg/dL (7-18); Calcium,Total 7.7 mg/dL (8.5-10.1); Chloride 111 mmol/L (98-107); Creatinine, Serum 0.82 mg/dL (0.70-1.30); EST Glomerular Filtration Rate 106 mL/min (>60); Est Glom Filt Rate - Afr Amer 129 mL/min (>60); Estimated Creatinine Clearance 106.59 ml/min; Glucose 142 mg/dL (74-106); Potassium 3.3 mmol/L (3.5-5.1); Sodium Level 141 mmol/L (136-145)
[2023-02-06 23:39] LABS: Absolute Lymphocyte Count 0.88 X10^3/uL (0.83-4.51); Absolute Neutrophil Count 3.7 X10^3/uL (2.0-7.7); Basophil# 0.06 X10^3/uL; Basophil% 1.1 % (0-1); Eosinophil# 0.19 X10^3/uL; Eosinophils% 3.4 % (0-5); Hematocrit 28.7 % (40-54); Hemoglobin 9.3 g/dL (13.0-16.5); Lymphocyte # 0.88 X10^3/ul (0.83-4.51); Lymphocyte % 15.7 % (19-41); Mean Corp Hgb Conc 32.4 g/dL (32-36); Mean Corpuscular Hgb 35.2 pg (27.0-32.0); Mean Corpuscular Volume 108.7 fL (80-94); Monocyte# 0.79 X10^3/uL; Monocyte% 14.1 % (0-10); NRBC Flagged by Analyzer 0 % (0-5); Neutrophil # 3.65 X10^3/uL (2.7-7.7); Neutrophil % 65.3 % (47-70); POSITIVE COUNT YES; POSITIVE MORPHOLOGY YES; Platelet Count 75 K/mm3 (150-450); RBC Distribution Width CV 16.5 % (11.6-14.6); RBC Distribution Width SD 65.7 fl (35.1-43.9); Red Blood Count 2.64 M/mm3 (4.6-6.2); White Blood Count 5.6 K/mm3 (4.4-11.0)
[2023-02-06 23:41] LABS: Alcohol, Blood (Medical)-Serum < 3.0 mg/dL
[2023-02-06 23:44] LABS: Differential Indicated SCAN CRITERIA MET
[2023-02-06 23:45] LABS: Amphetamine Urine VISTA NEGATIVE (<1000 ng/mL); Barbiturate Urine VISTA NEGATIVE (< 200 ng/mL); Benzodiazepine Urine VISTA NEGATIVE (< 200 ng/mL); Cocaine Urine VISTA NEGATIVE (< 300 ng/mL); Ecstacy Urine VISTA POSITIVE (< 500 ng/mL); Methadone Urine VISTA NEGATIVE (< 300 ng/mL); PCP Urine VISTA NEGATIVE (< 25 ng/mL); THC Urine VISTA POSITIVE (< 50 ng/mL); Vista UDS pH Range 6
[2023-02-07 00:03] LABS: Anisocytosis 1+; Macrocytosis 2+; Platelet Estimate MOD DEC (ADEQ)
== END 2023-02-07 02:45 | disposition home or self-care (01) ==
PROVIDERS: Emergency Provider Emergency Medicine; PCP Internal Medicine; Visit Provider Emergency Medicine
DX: R45.851 Suicidal ideations (principal); X78.9XXA Intentional self-harm by unspecified sharp object, initial encounter; E11.9 Type 2 diabetes mellitus without complications; S61.512A Laceration without foreign body of left wrist, initial encounter; I10 Essential (primary) hypertension; Z87.891 Personal history of nicotine dependence; F32.A Depression, unspecified; Z87.19 Personal history of other diseases of the digestive system; Z86.2 Personal history of diseases of the blood and blood-forming organs and certain disorders involving the immune mechanism
CPT/HCPCS: 36415; 80048; 80307; 82077; 85025; 87811; 99283

== ENCOUNTER 2023-02-07 07:59 | Emergency (ER) | payer BC, SELFPAY ==
[2023-02-07 08:00] VITALS: BP 135/76; PULSE 102; RESP 18; TEMP 37.2; O2SAT 95; BMI 23.1
--- NOTE | 2023-02-07 08:50 | EX.ED.VIS.PS ---
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 History of manic depression on medications. He states he does take his medicines not today. Seen multiple times recently in the ED. Most recent less than 10 hours ago for suicidal ideations and self cutting. Increasing stressors states recent divorce, states was making 6 figure salary and now down to $20,000 a year. He is lost many friends. Also lost his father this past June. Previous alcohol history none recently. He states he does marijuana edibles. However none recently. He new follow-up with psychiatry Dr. Mancera. He denies homicidal ideations. Denies any hallucinations. Denies any medical symptoms. His tetanus is up-to-date. He was seen yesterday similar had a safety plan and discharged by crisis. He states he is surprised he was allowed to go home. He has been admitted before to psychiatry last time with [facility]. Prior similar symptoms: Yes PFSH PFSH Medical History Alcoholic hepatitis Carrier of hemochromatosis HFE gene mutation Cirrhosis Diabetes mellitus type 2 in nonobese Dietary restriction Former smoker Gastric reflux Gout Hepatic encephalopathy History of edema History of panic attacks History of stress test HTN (hypertension) Hx of gout Liver damage Seasonal allergies Sleep apnea Suicide attempt Trauma Home Medications folic acid 1 mg tablet 1 mg PO DAILY #90 tabs 05/02/22 [Rx Last Taken Unknown] thiamine HCl (vitamin B1) 100 mg tablet (Vitamin B-1) 200 mg (2 x 100 mg) PO BID #60 tabs 06/21/22 [Rx Last Taken Unknown] trazodone 50 mg tablet See Rx Instructions PO QHS PRN sleep #30 tabs 06/27/22 [Rx Last Taken Unknown] sertraline 50 mg tablet (Zoloft) 50 mg PO DAILY #90 tabs 08/10/22 [Rx Last Taken Unknown] pantoprazole 40 mg tablet,delayed release 40 mg PO DAILY 12/21/22 [History Last Taken Unknown] aripiprazole 2 mg tablet 2 mg PO QHS 01/05/23 [History Last Taken Unknown] promethazine 25 mg tablet 25 mg PO QHS PRN nausea and vomiting #30 tabs 01/05/23 [Rx Last Taken Unknown] scopolamine base 1 mg over 3 days transdermal patch 1 patch transdermal Q72H #10 ea 02/02/23 [Rx Last Taken Unknown] furosemide 40 mg tablet 40 mg PO DAILY 02/07/23 [History Last Taken 02/06/23] rifaximin 550 mg tablet (Xifaxan) 550 mg PO BID 02/07/23 [History Last Taken 02/06/23] Allergy/AdvReac Type Severity Reaction Status Date / Time pioglitazone Allergy Mild liver Verified 02/06/23 22:30 damange Family History Other CVA (cerebral vascular accident) Cancer Cirrhosis Heart disease Hypertension Thyroid disorder Surgical History History of esophagogastroduodenoscopy (EGD) History of surgery 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 Status: Former smoker alcohol intake: former substance use type: does not use what type of physical activity do you participate in: other frequency: 1-2 times per week ROS ROS ED Constitutional Constitutional ED: Denies chills, fever(s) or sweats Eyes Eyes: Denies change in vision ENT ENT ED: Denies dysphagia or sore throat Cardiovascular Cardiovascular: Denies chest pain, leg edema, palpitations or racing heartbeat Respiratory/Chest Respiratory/Chest: Denies cough, dyspnea or dyspnea on exertion Gastrointestinal Gastrointestinal: Denies abdominal pain, diarrhea, nausea or vomiting Genitourinary Genitourinary ED: Denies dysuria, hematuria or urinary frequency Musculoskeletal Musculoskeletal: Denies back pain, extremity pain or neck pain Integumentary Reports wounds; Denies rash Neurologic Neurologic: Denies headache(s), paresthesias or weakness Psychiatric Psychiatric: Reports depression and suicidal ideation EXAM Physical Exam Const Vital Signs: 02/07/23 08:00 02/07/23 13:00 Temperature 98.9 F Temperature Source Temporal Pulse Rate 102 H 83 Respiratory Rate 18 16 Blood Pressure 135/76 H 130/69 H Blood Pressure Mean 95 89 Pulse Ox 95 99 Oxygen Delivery Method Room Air Room Air Positive well nourished and well developed General Appearance ED: well developed and NAD HEENT Reports moist mucous membranes normocephalic and atraumatic Eyes PERRL, EOMs intact bilaterally and conjunctivae normal General Eye ED: Yes normal appearance of both eyes Neck no lymphadenopathy and supple General: Negative for tenderness Chest Wall Chest: Negative for tenderness Resp normal respiratory effort and normal air movement Effort and Inspection: symmetric chest movement; Negative for respiratory distress Cardio regular rate, regular rhythm and no murmurs Peripheral Pulses: pulses 2+ throughout GI normal to inspection, nondistended, normoactive bowel sounds and non-tender Palpation: Negative for guarding or rebound tenderness present Back/Spine no CVA tenderness and no thoracic nor lumbar tenderness Extremity normal to inspection General Extremety ED: Negative for edema or tenderness General Extremity: Negative for edema Neuro oriented x3 and no sensory deficits noted Sensorium / Orientation: awake and alert Psych Psych Narrative: flat affect, suicidal ideation Skin Skin Narrative: left wrist: 3cm superficial laceration distal lateral radius, dry blood, no active bleeding. MDM MDM MDM Narrative Medical decision making narrative: Interventions / MDM: Differential diagnosis: depression w/ suicidal ideation Diagnosis considered but do not suspect: N/A My EKG interpretation: N/A Imaging independently reviewed and interpreted by myself: N/A External documents reviewed: N/A Test considered but not ordered:N/A ED course: Patient clinically awake sober nontoxic. Admits to suicidal ideations. He had labs drawn less than 10 hours ago, including a negative COVID test. Nursing reach out to crisis, they request alcohol and tox screen. This was ordered. He is medically cleared at this time. Will await crisis reevaluation for disposition. Patient evaluate by second worker in the ED. 1340: Patient accepted to [facility] under Dr. Ramirez. [place] slip has been filled out. 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 This note was generated with [employer] dictation software. It may contain incorrect words, spelling, and punctuation that were not noted in checking the note before signing. Lab Data Attestation: I reviewed the patient's lab results. Labs: Laboratory Results - last 24 hr 02/07/23 02/07/23 08:20 08:51 Urine Opiates Screen NEGATIVE Urine Methadone Screen NEGATIVE Ur Barbiturates Screen NEGATIVE Ur Phencyclidine Scrn NEGATIVE Ur Amphetamines Screen NEGATIVE MDMA (Ecstasy) Screen NEGATIVE U Benzodiazepines Scrn NEGATIVE Urine Cocaine Screen NEGATIVE U Cannabinoids Screen POSITIVE H Ur Drug Screen Comment Ethyl Alcohol < 3.0 Discharge Plan Triage Chief Complaint: Suicidal ED Provider: Ian Carmona Dx/Rx/DC Orders Clinical Impression: Depression with suicidal ideation, Self-inflicted injury Prescriptions: No Action thiamine HCl (vitamin B1) [Vitamin B-1] 100 mg Tablet 200 mg PO BID Qty: 60 0RF pantoprazole 40 mg tablet,delayed release (DR/EC) 40 mg PO DAILY Rx Instructions: take 1 tablet by mouth once daily aripiprazole 2 mg tablet 2 mg PO QHS Patient Comments: take 1 tablet by mouth once daily promethazine 25 mg tablet 25 mg PO QHS PRN (Reason: nausea and vomiting) Qty: 30 0RF furosemide 40 mg tablet 40 mg PO DAILY Rx Instructions: take 1 tablet by mouth once daily Xifaxan 550 mg tablet 550 mg PO BID Rx Instructions: take 1 tablet by mouth twice a day folic acid 1 mg tablet 1 mg PO DAILY Qty: 90 3RF trazodone 50 mg tablet See Rx Instructions PO QHS PRN (Reason: sleep) Qty: 30 1RF Rx Instructions: May take 1/2 to 1 tablet nightly as needed sertraline [Zoloft] 50 mg tablet 50 mg PO DAILY Qty: 90 1RF scopolamine base 1 mg over 3 days patch 3 day 1 patch transdermal Q72H Qty: 10 2RF Primary Care Provider: Ita Goddard Referrals: Ita Goddard MD [Primary Care Provider] - Disposition Disposition: Psychiatric Hospital or Unit
[2023-02-07 09:03] LABS: Amphetamine Urine VISTA NEGATIVE (<1000 ng/mL); Barbiturate Urine VISTA NEGATIVE (< 200 ng/mL); Benzodiazepine Urine VISTA NEGATIVE (< 200 ng/mL); Cocaine Urine VISTA NEGATIVE (< 300 ng/mL); Ecstacy Urine VISTA NEGATIVE (< 500 ng/mL); Methadone Urine VISTA NEGATIVE (< 300 ng/mL); PCP Urine VISTA NEGATIVE (< 25 ng/mL); THC Urine VISTA POSITIVE (< 50 ng/mL); Vista UDS pH Range 5
[2023-02-07 09:50] LABS: Alcohol, Blood (Medical)-Serum < 3.0 mg/dL
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
[2023-02-07] MEDS: rifAXIMin 550 MG Tablet PO (11:25)
[2023-02-07] MEDS: Folic Acid 1 MG Tablet PO (11:25)
[2023-02-07] MEDS: Furosemide 40 MG Tablet PO (11:25)
[2023-02-07] MEDS: Pantoprazole Sodium 40 MG Tablet PO (11:25)
[2023-02-07] MEDS: Sertraline 50 MG Tablet PO (11:25)
[2023-02-07] MEDS: Thiamine Hydrochloride 100 MG Tablet 200 MG PO (11:25)
--- NOTE | 2023-02-07 11:39 | CM.ED ---
Addendum entered by Analy Larios 02/07/23 13:48: Patient accepted to [facility] by MD Ramirez, room 3310, [id number]. Transportation will need to take patient through their ED. Admissions staff request pink slip be refaxed as they are unable to read it. KIRA refaxed pink slip. Patient updated regarding accepting facility and has no questions at this time. Care team updated, director community organization to arrange transportation. Plan: [facility] DONNY Clayton Addendum entered by Analy Larios 02/07/23 12:43: [facility] requesting new EKG, KIRA faxed. Patient was accepted to [facility]. Admissions staff requesting pink slip be faxed, [facility] KIRA to contact [facility] with accepting information after they have received the pink slip. [place] slip faxed. Plan: [facility] for inpatient psychiatric hospitalization DONNY Clayton Original Note: Social Work KIRA contacted [facility] and [facility], beds available. KIRA faxed referrals. Plan: referrals pending at [facility] and [facility] DONNY Clayton
--- NOTE | 2023-02-07 12:05 | EKG12_ITS ---
Test Reason : MENTAL HEALTH Blood Pressure : / mmHG Vent. Rate : 071 BPM Atrial Rate : 071 BPM P-R Int : 160 ms QRS Dur : 088 ms QT Int : 440 ms P-R-T Axes : 029 021 024 degrees QTc Int : 478 ms Normal sinus rhythm Septal infarct (cited on or before 16-JUN-2022) Abnormal ECG Confirmed by JADEN HORNE, MANJULA ([id number]), assignment desk editor STIVEN KAM ([id number]) on 02/08/2023 2:24:13 PM Referred By: Confirmed By:MANJULA STANLEY MD
[2023-02-07 13:00] VITALS: BP 130/69; PULSE 83; RESP 16; O2SAT 99
[2023-02-07] MEDS: Scopolamine 1mg/72hr Patch 1 PATCH TD (13:13)
--- NOTE | 2023-02-07 13:48 | NURSING ---
CALLED PHYSICIANS TO SET UP TRANSFER TO [facility]-- ETA GIVEN 1 HOUR ( [id number])
== END 2023-02-07 14:20 ==
PROVIDERS: Emergency Provider Emergency Medicine; PCP Internal Medicine; Visit Provider Emergency Medicine
DX: R45.851 Suicidal ideations (principal); X78.9XXD Intentional self-harm by unspecified sharp object, subsequent encounter; E11.9 Type 2 diabetes mellitus without complications; Z87.891 Personal history of nicotine dependence; S61.512D Laceration without foreign body of left wrist, subsequent encounter; F32.A Depression, unspecified; I10 Essential (primary) hypertension
CPT/HCPCS: 80307; 82077; 93005; 99285

== ENCOUNTER 2023-02-11 22:10 | Emergency (ER) | payer BC, SELFPAY ==
[2023-02-11 22:10] VITALS: BP 138/80; PULSE 91; RESP 15; TEMP 37.1; O2SAT 100; BMI 22.6
[2023-02-11 22:50] LABS: Amphetamine Urine VISTA NEGATIVE (<1000 ng/mL); Barbiturate Urine VISTA NEGATIVE (< 200 ng/mL); Benzodiazepine Urine VISTA NEGATIVE (< 200 ng/mL); Cocaine Urine VISTA NEGATIVE (< 300 ng/mL); Ecstacy Urine VISTA NEGATIVE (< 500 ng/mL); Methadone Urine VISTA NEGATIVE (< 300 ng/mL); PCP Urine VISTA NEGATIVE (< 25 ng/mL); THC Urine VISTA POSITIVE (< 50 ng/mL); Vista UDS pH Range 5
--- NOTE | 2023-02-11 23:30 | EX.ED.VIS.PS ---
HPI HPI - Psych History of Present Illness Chief Complaint: Suicidal Informant: patient Narrative Narrative: Patient presents with self-injury and suicidal thoughts. Patient has a long history of major depression. He is on multiple meds for this. He states he cannot remember all the names but he taking them as he is prescribed. He sees counselor and he supposed to see a new doctor soon. Yesterday and then earlier today he cut the dorsum of his left arm. This was an attempt of self injury. He states he always has some suicidal thoughts and they are no different today than they are chronically. He states this was really just to relieve stress. He does not actually want to . He wants to go to work on Monday. He states he cannot be admitted though because he has to take care of his cat and his goldfish. He states what got him to this point is frustration over finances and possibly losing a place to live. He got paid on Monday but his paycheck was for $0.00. He states child support and health insurance took all the money out of his pay. He is now afraid he is not going to have a place to live. No hallucinations. [facility] Medical History Alcoholic hepatitis Carrier of hemochromatosis HFE gene mutation Cirrhosis Diabetes mellitus type 2 in nonobese Dietary restriction Former smoker Gastric reflux Gout Hepatic encephalopathy History of edema History of panic attacks History of stress test HTN (hypertension) Hx of gout Liver damage Seasonal allergies Sleep apnea Suicide attempt Trauma Home Medications folic acid 1 mg tablet 1 mg PO DAILY #90 tabs 05/02/22 [Rx Last Taken Unknown] thiamine HCl (vitamin B1) 100 mg tablet (Vitamin B-1) 200 mg (2 x 100 mg) PO BID #60 tabs 06/21/22 [Rx Last Taken Unknown] trazodone 50 mg tablet See Rx Instructions PO QHS PRN sleep #30 tabs 06/27/22 [Rx Last Taken Unknown] sertraline 50 mg tablet (Zoloft) 50 mg PO DAILY #90 tabs 08/10/22 [Rx Last Taken Unknown] pantoprazole 40 mg tablet,delayed release 40 mg PO DAILY 12/21/22 [History Last Taken Unknown] aripiprazole 2 mg tablet 2 mg PO QHS 01/05/23 [History Last Taken Unknown] promethazine 25 mg tablet 25 mg PO QHS PRN nausea and vomiting #30 tabs 01/05/23 [Rx Last Taken Unknown] scopolamine base 1 mg over 3 days transdermal patch 1 patch transdermal Q72H #10 ea 02/02/23 [Rx Last Taken Unknown] furosemide 40 mg tablet 40 mg PO DAILY 02/07/23 [History Last Taken 02/06/23] rifaximin 550 mg tablet (Xifaxan) 550 mg PO BID 02/07/23 [History Last Taken 02/06/23] Allergy/AdvReac Type Severity Reaction Status Date / Time pioglitazone Allergy Mild liver Verified 02/11/23 22:16 damange Family History Other CVA (cerebral vascular accident) Cancer Cirrhosis Heart disease Hypertension Thyroid disorder Surgical History History of esophagogastroduodenoscopy (EGD) History of surgery 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 Some specific details below. Constitutional: No recent fevers or chills. EYE: No visual complaints or pain. No visual hallucinations. ENT: No difficulty swallowing. No swelling. No pain. CV: No chest pain or palpitations. Respiratory: No dyspnea. No hemoptysis. No difficulty taking breaths. GI: No nausea vomiting diarrhea. He is actually drinking fluids as I walk in the room. : No frequency dysuria or hematuria. Musculoskeletal: Multiple superficial lacerations abrasions to the dorsum of his left forearm. Skin: See above regarding superficial lacerations. No rash. Nondiaphoretic. Neuro: No weakness or numbness. Endocrine: No polyuria or polydipsia. Psychiatry: See history of present illness. EXAM Physical Exam Narrative Exam Narrative: CONSTITUTIONAL: Patient is nontoxic in appearance. The patient looks comfortable. He has stable gait. I watched him walk out get coffee from one of the staff members and walked back to his room. HEENT: No notable trauma. Mucous membranes moist. No sinus tenderness. No indication of pain with swallowing. EYES: No conjunctival injection. No proptosis. CARDIOVASCULAR: Regular rate. Regular rhythm. No notable murmur. No JVD. RESPIRATORY: No respiratory distress. Breathing is unlabored. No wheezes. No rhonchi. No rales. No pain with a deep breath. GASTROINTESTINAL: Not distended. Bowel sounds are normal. No tenderness. No guarding. No rebound. No palpable mass. No bruit. GENITOURINARY: No tenderness over the bladder. No CVA tenderness. MUSCULOSKELETAL: Approximately 7 primary superficial lacerations abrasions across the dorsum of his left forearm. These really are not amenable to suturing both due to the fact they do not open up to any significant degree and many of them are hours to more than a day old. NEUROLOGICAL: Patient is alert and appropriate. No focal deficit noted. SKIN: No noted rashes. No diaphoresis. PSYCHIATRIC: Patient is calm. No flight of ideas. No pressured speech. He is cooperative. Const Vital Signs: 02/11/23 22:10 Temperature 98.7 F Temperature Source Temporal Pulse Rate 91 Respiratory Rate 15 Blood Pressure 138/80 H Blood Pressure Mean 99 Pulse Ox 100 Oxygen Delivery Method Room Air MDM MDM MDM Narrative Medical decision making narrative: Patient's toxicology screen is positive for cannabinoids. This is normal for him. Patient has been cooperative here. Crisis is seen him. They feel he is at his baseline. He feels baseline. He states this was just to relieve stress. He is free to return at any time. They have done a safety plan. Lab Data Labs: Laboratory Results - last 24 hr 02/11/23 22:30 Urine Opiates Screen NEGATIVE Urine Methadone Screen NEGATIVE Ur Barbiturates Screen NEGATIVE Ur Phencyclidine Scrn NEGATIVE Ur Amphetamines Screen NEGATIVE MDMA (Ecstasy) Screen NEGATIVE U Benzodiazepines Scrn NEGATIVE Urine Cocaine Screen NEGATIVE U Cannabinoids Screen POSITIVE H Ur Drug Screen Comment Discharge Plan Triage Chief Complaint: Suicidal ED Provider: Nilay Rowland Dx/Rx/DC Orders Clinical Impression: Injury, self-inflicted, History of depression Instructions: Suicide Warning Signs What To Do, ED Depression Prescriptions: No Action thiamine HCl (vitamin B1) [Vitamin B-1] 100 mg Tablet 200 mg PO BID Qty: 60 0RF pantoprazole 40 mg tablet,delayed release (DR/EC) 40 mg PO DAILY Rx Instructions: take 1 tablet by mouth once daily aripiprazole 2 mg tablet 2 mg PO QHS Patient Comments: take 1 tablet by mouth once daily promethazine 25 mg tablet 25 mg PO QHS PRN (Reason: nausea and vomiting) Qty: 30 0RF furosemide 40 mg tablet 40 mg PO DAILY Rx Instructions: take 1 tablet by mouth once daily Xifaxan 550 mg tablet 550 mg PO BID Rx Instructions: take 1 tablet by mouth twice a day folic acid 1 mg tablet 1 mg PO DAILY Qty: 90 3RF trazodone 50 mg tablet See Rx Instructions PO QHS PRN (Reason: sleep) Qty: 30 1RF Rx Instructions: May take 1/2 to 1 tablet nightly as needed sertraline [Zoloft] 50 mg tablet 50 mg PO DAILY Qty: 90 1RF scopolamine base 1 mg over 3 days patch 3 day 1 patch transdermal Q72H Qty: 10 2RF Primary Care Provider: Ita Goddard Referrals: Ita Goddard MD [Primary Care Provider] - 3-5 Days Disposition Disposition: Home, Self Care
--- NOTE | 2023-02-11 23:44 | ED.RN ---
PT STATES HE IS FEELING STRESSED WITH CURRENT SITUATION, IS HOMELESS, PAYCHECK GARNISHED. ADMITS TO CUTRTING HIS ARM BUT STATES IT WASN'T AN ATTEMPT TO END HIS LIFE. PT DENIES BEING SUICIDAL AT THIS TIME.
--- NOTE | 2023-02-12 00:02 | ED.RN ---
FAXED OVER PTS CHART THUS FAR AND PROVIDERS DRAFT TO CRISIS.
[2023-02-12 01:08] VITALS: BP 138/80; PULSE 91; RESP 15; O2SAT 99
--- NOTE | 2023-02-12 01:43 | ED.RN ---
PER DR BLAKE, NO SI PRECAUTIONS NEEDED
== END 2023-02-12 01:43 | disposition home or self-care (01) ==
PROVIDERS: Emergency Provider Emergency Medicine; PCP Internal Medicine; Visit Provider Emergency Medicine
DX: S40.922A Unspecified superficial injury of left upper arm, initial encounter (principal); X78.9XXA Intentional self-harm by unspecified sharp object, initial encounter; E11.9 Type 2 diabetes mellitus without complications; R45.851 Suicidal ideations; Z87.891 Personal history of nicotine dependence; I10 Essential (primary) hypertension; F32.9 Major depressive disorder, single episode, unspecified
CPT/HCPCS: 80307; 99282

== ENCOUNTER 2023-02-12 18:39 | Emergency (ER) | payer BC, SELFPAY ==
[2023-02-12 18:40] VITALS: BP 142/77; PULSE 94; RESP 16; TEMP 36.8; O2SAT 100; BMI 22.6
--- NOTE | 2023-02-12 18:50 | EX.ED.VIS.PS ---
HPI HPI - Psych History of Present Illness Chief Complaint: Suicidal Informant: patient Onset/Context/Timing Onset: Today Context: Sudden Onset Timing: Continuous Worsened by: Situational factors Relieved by: Nothing Associated Symptoms Associated Symptoms - Psych: Positive for Depressed; Negative for Visual Hallucinations or Auditory Hallucinations Narrative Narrative: Patient presents with suicidal gesture that occurred today. Patient states he cut his forearm today. Patient states he has been under stress with situations at home. Patient denies any visual or auditory hallucinations. Patient denies any fevers or chills. Patient denies any chest pain or shortness of breath. Patient denies any nausea or vomiting. Patient states nothing makes it better nothing makes it worse. PFSH [facility] Medical History Alcoholic hepatitis Carrier of hemochromatosis HFE gene mutation Cirrhosis Diabetes mellitus type 2 in nonobese Dietary restriction Former smoker Gastric reflux Gout Hepatic encephalopathy History of edema History of panic attacks History of stress test HTN (hypertension) Hx of gout Liver damage Seasonal allergies Sleep apnea Suicide attempt Trauma Home Medications folic acid 1 mg tablet 1 mg PO DAILY #90 tabs 05/02/22 [Rx Last Taken Unknown] thiamine HCl (vitamin B1) 100 mg tablet (Vitamin B-1) 200 mg (2 x 100 mg) PO BID #60 tabs 06/21/22 [Rx Last Taken Unknown] trazodone 50 mg tablet See Rx Instructions PO QHS PRN sleep #30 tabs 06/27/22 [Rx Last Taken Unknown] pantoprazole 40 mg tablet,delayed release 40 mg PO DAILY 12/21/22 [History Last Taken Unknown] aripiprazole 2 mg tablet 2 mg PO QHS 01/05/23 [History Last Taken Unknown] promethazine 25 mg tablet 25 mg PO QHS PRN nausea and vomiting #30 tabs 01/05/23 [Rx Last Taken Unknown] scopolamine base 1 mg over 3 days transdermal patch 1 patch transdermal Q72H #10 ea 02/02/23 [Rx Last Taken Unknown] furosemide 40 mg tablet 40 mg PO DAILY 02/07/23 [History Last Taken 02/06/23] rifaximin 550 mg tablet (Xifaxan) 550 mg PO BID 02/07/23 [History Last Taken 02/06/23] sertraline 100 mg tablet 100 mg PO QHS 02/12/23 [History Last Taken Unknown] sertraline 50 mg tablet (Zoloft) 150 mg PO DAILY 02/12/23 [History Last Taken Unknown] Allergy/AdvReac Type Severity Reaction Status Date / Time pioglitazone Allergy Mild liver Verified 02/11/23 22:16 damange Family History Other CVA (cerebral vascular accident) Cancer Cirrhosis Heart disease Hypertension Thyroid disorder Surgical History History of esophagogastroduodenoscopy (EGD) History of surgery 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 Status: Former smoker alcohol intake: former substance use type: does not use what type of physical activity do you participate in: other frequency: 1-2 times per week ROS ROS ED Constitutional Constitutional ED: Denies chills or fever(s) Eyes Eyes: Denies blurry vision or change in vision ENT ENT ED: Denies rhinorrhea or sore throat Cardiovascular Cardiovascular: Denies chest pain or palpitations Respiratory/Chest Respiratory/Chest: Denies cough or dyspnea Gastrointestinal Gastrointestinal: Denies nausea or vomiting Genitourinary Genitourinary ED: Denies dysuria or hematuria Musculoskeletal Musculoskeletal: Denies back pain or neck pain Integumentary Denies abscess or rash Neurologic Neurologic: Denies headache(s) or weakness Psychiatric Psychiatric: Reports depression Allergic/Immunologic Allergic/Immunologic ED: Denies mouth swelling or urticaria EXAM Physical Exam Const Vital Signs: 02/12/23 18:40 02/12/23 19:39 02/12/23 20:00 Temperature 98.3 F Temperature Source Temporal Pulse Rate 94 Respiratory Rate 16 16 18 Blood Pressure 142/77 H Blood Pressure Mean 98 Pulse Ox 100 Oxygen Delivery Method Room Air 02/12/23 21:00 02/12/23 22:00 Temperature Temperature Source Pulse Rate 18 L Respiratory Rate 18 Blood Pressure Blood Pressure Mean Pulse Ox Oxygen Delivery Method Positive well nourished and well developed General Appearance ED: well developed and NAD HEENT Reports moist mucous membranes Neck supple and no JVD Resp normal respiratory effort and clear to auscultation bilaterally Cardio Rate: regular rate Rhythm: regular rhythm GI non-tender and non-distended Palpation: soft Extremity Extremity Narrative: There is 2+ pitting edema of the lower extremities bilaterally. There is no calf tenderness. There is no erythema or warmth noted. General Extremety ED: Yes edema General Extremity: edema Neuro oriented x3, CN's II-XII intact bilaterally and no sensory deficits noted Sensorium / Orientation: alert Motor Exam: strength 5/5 throughout Psych mental status grossly normal Activity / Motor Behavior: appropriate eye contact Speech: normal speech Thought Content: suicidality Memory / Cognition: memory grossly intact Skin Skin Narrative: There are superficial linear lacerations over the dorsal aspect of the left forearm. There is minimal gapping of the wound margins. There is no active bleeding noted. There is also a 3.5 cm linear vertical laceration over the dorsal aspect of the left forearm. There is minimal gapping of the wound margins. The laceration extends into the dermis. There is no active bleeding. There are no foreign bodies noted. MDM MDM MDM Narrative Medical decision making narrative: Differential diagnosis includes suicidal gesture, depression, anxiety, and self-harm. Medical screening labs will be obtained. CBC will be obtained to assess for leukocytosis and anemia. Basic metabolic profile will be obtained to assess for the end function. Urine tox screen will be obtained to assess for substance abuse. Blood alcohol level will be obtained to assess for alcohol intoxication. Uric acid will be obtained to assess for gout. Patient is concerned that he may have gout because of the swelling in his legs. History & Record Review Discussion w/independent historian: Patient Additional record(s) reviewed:: Prior labs Lab Data Attestation: I reviewed the patient's lab results. Lab results narrative: CBC was reviewed. There is a mild anemia with a hemoglobin of 9.9 and hematocrit of 28.9. This is stable compared to previous results. Platelet count was slightly low at 81. This is actually improved compared to previous results. Basic metabolic profile was reviewed. Potassium was slightly low at 3.2. Glucose was slightly elevated at 153. The remainder is within normal limits. Serum alcohol level was reviewed and was normal at 23. Urine tox screen was reviewed and was positive for cannabinoids but otherwise negative. Uric acid was reviewed and was normal at 5.8. Labs: Laboratory Results - last 24 hr 02/12/23 02/12/23 19:10 19:30 WBC 6.3 RBC 2.70 L Hgb 9.9 L Hct 28.9 L MCV 107.0 H MCH 36.7 H MCHC 34.3 RDW Std Deviation 65.5 H RDW Coeff of Kaela 16.7 H Plt Count 81 L MPV 10.4 Immature Gran % (Auto) 0.300 Neut % (Auto) 68.0 Lymph % (Auto) 17.8 L [place] % (Auto) 10.4 H Eos % (Auto) 2.9 Baso % (Auto) 0.6 Absolute Neuts (auto) 4.3 Absolute Lymphs (auto) 1.11 Nucleated RBC % 0 Differential Comment SCANNED Anisocytosis 1+ Sodium 141 Potassium 3.2 L Chloride 111 H Carbon Dioxide 24.0 Anion Gap 6 BUN 8 Creatinine 0.77 Estim Creat Clear Calc 112.15 Est GFR (MDRD) Af Amer 139 Est GFR (MDRD) Non-Af 115 BUN/Creatinine Ratio 10.4 Glucose 153 H Uric Acid 5.8 Calcium 7.5 L Urine Opiates Screen NEGATIVE Urine Methadone Screen NEGATIVE Ur Barbiturates Screen NEGATIVE Ur Phencyclidine Scrn NEGATIVE Ur Amphetamines Screen NEGATIVE MDMA (Ecstasy) Screen NEGATIVE U Benzodiazepines Scrn NEGATIVE Urine Cocaine Screen NEGATIVE U Cannabinoids Screen POSITIVE H Ur Drug Screen Comment Ethyl Alcohol 23.0 Treatment and Re-Evaluation Narrative: Steri-Strips were applied to the vertical laceration. The remaining superficial lacerations did not need any other repair. Patient was advised of his findings. Patient is medically cleared for psychiatric evaluation. Crisis will be in to evaluate the patient. Care of the patient will be turned over the oncoming physician pending crisis evaluation. Discharge Plan Triage Chief Complaint: Suicidal ED Provider: Herbert Esquivel Dx/Rx/DC Orders Clinical Impression: Diabetes mellitus type 2 in nonobese, Depression, Self-inflicted injury Prescriptions: No Action thiamine HCl (vitamin B1) [Vitamin B-1] 100 mg Tablet 200 mg PO BID Qty: 60 0RF pantoprazole 40 mg tablet,delayed release (DR/EC) 40 mg PO DAILY Rx Instructions: take 1 tablet by mouth once daily aripiprazole 2 mg tablet 2 mg PO QHS Patient Comments: take 1 tablet by mouth once daily promethazine 25 mg tablet 25 mg PO QHS PRN (Reason: nausea and vomiting) Qty: 30 0RF sertraline 100 mg tablet 100 mg PO QHS Patient Comments: TAKE 1 TABLET BY MOUTH EVERY DAY sertraline [Zoloft] 50 mg tablet 150 mg PO DAILY furosemide 40 mg tablet 40 mg PO DAILY Rx Instructions: take 1 tablet by mouth once daily Xifaxan 550 mg tablet 550 mg PO BID Rx Instructions: take 1 tablet by mouth twice a day folic acid 1 mg tablet 1 mg PO DAILY Qty: 90 3RF trazodone 50 mg tablet See Rx Instructions PO QHS PRN (Reason: sleep) Qty: 30 1RF Rx Instructions: May take 1/2 to 1 tablet nightly as needed scopolamine base 1 mg over 3 days patch 3 day 1 patch transdermal Q72H Qty: 10 2RF Primary Care Provider: Ita Goddard Referrals: Ita Goddard MD [Primary Care Provider] -
[2023-02-12 19:39] VITALS: RESP 16
[2023-02-12 19:48] LABS: Absolute Lymphocyte Count 1.11 X10^3/uL (0.83-4.51); Absolute Neutrophil Count 4.3 X10^3/uL (2.0-7.7); Basophil# 0.04 X10^3/uL; Basophil% 0.6 % (0-1); Eosinophil# 0.18 X10^3/uL; Eosinophils% 2.9 % (0-5); Hematocrit 28.9 % (40-54); Hemoglobin 9.9 g/dL (13.0-16.5); Lymphocyte # 1.11 X10^3/ul (0.83-4.51); Lymphocyte % 17.8 % (19-41); Mean Corp Hgb Conc 34.3 g/dL (32-36); Mean Corpuscular Hgb 36.7 pg (27.0-32.0); Mean Platelet Vol. 10.4 fl (6.2-12.0); Monocyte# 0.65 X10^3/uL; Monocyte% 10.4 % (0-10); NRBC Flagged by Analyzer 0 % (0-5); Neutrophil # 4.25 X10^3/uL (2.7-7.7); POSITIVE COUNT YES; POSITIVE MORPHOLOGY YES; Platelet Count 81 K/mm3 (150-450); RBC Distribution Width CV 16.7 % (11.6-14.6); RBC Distribution Width SD 65.5 fl (35.1-43.9); White Blood Count 6.3 K/mm3 (4.4-11.0)
[2023-02-12 19:53] LABS: Differential Indicated SCAN CRITERIA MET
[2023-02-12 19:55] LABS: Uric Acid 5.8 mg/dL (3.5-7.2)
[2023-02-12 19:58] LABS: Anion Gap 6 (5-15); BUN 8 mg/dL (7-18); BUN/Creat Ratio 10.4 RATIO (10-20); Calcium,Total 7.5 mg/dL (8.5-10.1); Chloride 111 mmol/L (98-107); Creatinine, Serum 0.77 mg/dL (0.70-1.30); EST Glomerular Filtration Rate 115 mL/min (>60); Est Glom Filt Rate - Afr Amer 139 mL/min (>60); Estimated Creatinine Clearance 112.15 ml/min; Glucose 153 mg/dL (74-106); Potassium 3.2 mmol/L (3.5-5.1); Sodium Level 141 mmol/L (136-145)
[2023-02-12 20:00] VITALS: RESP 18
[2023-02-12 20:06] LABS: Amphetamine Urine VISTA NEGATIVE (<1000 ng/mL); Barbiturate Urine VISTA NEGATIVE (< 200 ng/mL); Benzodiazepine Urine VISTA NEGATIVE (< 200 ng/mL); Cocaine Urine VISTA NEGATIVE (< 300 ng/mL); Ecstacy Urine VISTA NEGATIVE (< 500 ng/mL); Methadone Urine VISTA NEGATIVE (< 300 ng/mL); PCP Urine VISTA NEGATIVE (< 25 ng/mL); THC Urine VISTA POSITIVE (< 50 ng/mL); Vista UDS pH Range 6
[2023-02-12 20:24] LABS: Anisocytosis 1+; Differential Comment SCANNED
[2023-02-12 21:00] VITALS: PULSE 18
[2023-02-12 22:00] VITALS: RESP 18
[2023-02-12 23:00] VITALS: RESP 16
[2023-02-13] VITALS: RESP 16
[2023-02-13 01:00] VITALS: BP 114/65; PULSE 75; RESP 16; TEMP 37; O2SAT 97
[2023-02-13] MEDS: ARIPiprazole 2 MG Tablet PO (01:13)
[2023-02-13] MEDS: Sertraline 100 MG Tablet PO (01:13)
[2023-02-13] MEDS: traZODone 50 MG Tablet PO (01:13)
[2023-02-13] MEDS: rifAXIMin 550 MG Tablet PO (01:14)
[2023-02-13 03:00] VITALS: RESP 18
[2023-02-13 04:00] VITALS: RESP 16
[2023-02-13 05:00] VITALS: RESP 18
--- NOTE | 2023-02-13 05:28 | NURSING ---
This RN called report to [facility]. Transport to be here approx @ [phone].
[2023-02-13 05:47] VITALS: BP 101/61; PULSE 73; RESP 16; TEMP 36.6; O2SAT 98
== END 2023-02-13 07:36 ==
PROVIDERS: Emergency Provider Emergency Medicine; PCP Internal Medicine; Visit Provider Emergency Medicine
DX: F32.A Depression, unspecified (principal); X78.9XXA Intentional self-harm by unspecified sharp object, initial encounter; E11.9 Type 2 diabetes mellitus without complications; I10 Essential (primary) hypertension; R45.851 Suicidal ideations; Z87.891 Personal history of nicotine dependence; Z79.899 Other long term (current) drug therapy; S51.812A Laceration without foreign body of left forearm, initial encounter
CPT/HCPCS: 80048; 80307; 82077; 84550; 85025; 99285

== ENCOUNTER 2023-02-22 16:12 | Observation (INO) | payer BC, SELFPAY ==
[2023-02-22 16:13] VITALS: BP 126/63; PULSE 90; RESP 16; TEMP 37.6; O2SAT 98; BMI 24.6
--- NOTE | 2023-02-22 16:41 | EKG12_ITS ---
Test Reason : Blood Pressure : / mmHG Vent. Rate : 080 BPM Atrial Rate : 080 BPM P-R Int : 152 ms QRS Dur : 090 ms QT Int : 422 ms P-R-T Axes : 050 024 034 degrees QTc Int : 486 ms Normal sinus rhythm Septal infarct (cited on or before 16-JUN-2022) Abnormal ECG Confirmed by KITTY HORNE, ADELAIDE ([id number]), movie editor STIVEN KAM ([id number]) on 02/27/2023 8:08:27 AM Referred By: Confirmed By:TAMICA TANG MD
--- NOTE | 2023-02-22 16:42 | CT_ITS ---
STUDY: CT BRAIN WITHOUT CONTRAST REASON FOR EXAM: Male, 47 years old. Trauma RADIATION DOSAGE (If Supplied By Facility): CTDIvol = ( 44.99 ) mGy, DLP = ( 745.49 ) mGycm TECHNIQUE: Transaxial CT imaging of the brain was performed without administration of intravenous contrast material. Individualized dose optimization techniques were used for this CT. COMPARISON: 09/15/2022. FINDINGS: Normal soft tissue structures. Normal calvarium. Normal size ventricles and extra-axial spaces for the patient''s age. Normal white matter tracts of the cerebral hemispheres. Normal basal ganglia and thalami. Normal brainstem. Normal cerebellum. There is no intracranial hemorrhage. There are no findings of an acute ischemic infarction. Normal visualized paranasal sinuses. CT/Brain/Head without Contrast IMPRESSION: Normal unenhanced CT scan of the brain. Electronically Signed: Henny Marti MD at 18:30 EDT Reading Location ID and State: [id number] / Tel , Service support ,
--- NOTE | 2023-02-22 16:42 | CT_ITS ---
EXAM: CT CHEST, ABDOMEN AND PELVIS WITH INTRAVENOUS CONTRAST CLINICAL INDICATION: trauma -- TRAUMA ONLY: IV Contrast. Dont wait for creatinine TECHNIQUE: Helically acquired images were obtained of the chest, abdomen and pelvis with intravenous contrast. This CT exam was performed using one or more of the following dose reduction techniques: automated exposure control, adjustment of the mA and/or kV according to patient size, and/or use of iterative reconstruction technique. CONTRAST: IV 100mL [id number] COMPARISON: 09/15/2022. FINDINGS: CHEST: LUNGS AND PLEURAL SPACES: Unremarkable. No mass. No consolidation or edema. No pleural effusion or thickening. No pneumothorax. HEART: Unremarkable. Heart size is normal. No pericardial effusion. MEDIASTINUM: Unremarkable. No mediastinal or hilar adenopathy. Esophagus is unremarkable. No hiatal hernia. THYROID: Unremarkable. No thyroid lesions. ABDOMEN: LIVER: Unremarkable. Homogeneous. No focal mass. GALLBLADDER AND BILE DUCTS: Unremarkable. No calcified gallstones. No gallbladder distention or wall edema. No intra- or extrahepatic biliary ductal dilation. PANCREAS: Unremarkable. No focal cystic or solid mass. SPLEEN: Unremarkable. Normal size without focal cystic or solid mass. ADRENALS: Unremarkable. No nodules. KIDNEYS AND URETERS: Unremarkable. Normal renal size and position. No hydronephrosis. STOMACH AND BOWEL: Unremarkable. No stomach or bowel distention. No focal inflammatory change. PELVIS: APPENDIX: No evidence of acute appendicitis. BLADDER: Unremarkable. REPRODUCTIVE: Unremarkable as visualized. No mass. CHEST, ABDOMEN and PELVIS: INTRAPERITONEAL SPACE: Unremarkable. No ascites or other fluid collection. No free air. BONES/JOINTS: No acute fracture. Chronic right rib fracture. Remote healed right pubic fracture. No suspicious lytic or blastic abnormality. SOFT TISSUES: Unremarkable. No discrete abdominal or pelvic wall hernia. VASCULATURE: Varices in the right upper quadrant with question of cavernous transformation of the portal vein versus anatomic variant. Main portal vein is reduced in caliber relative to the splenic vein. Small portal venous branches extending to the right and left lobes. No change compared to the prior study. Aorta is non-dilated. No aortic dissection. No obvious central pulmonary embolism although this study was not performed with the pulmonary embolism protocol. LYMPH NODES: Unremarkable. No enlarged lymph nodes. CT/CT Chest, Abd, Pel w/Contrast IMPRESSION: 1. No evidence of trauma. 2. Right upper quadrant varices with question of cavernous transformation of the portal vein versus anatomic variant, no change from prior. Electronically Signed: Henny Marti MD at 18:46 EDT Reading Location ID and State: [id number] / Tel , Service support ,
--- NOTE | 2023-02-22 16:42 | CT_ITS ---
INDICATION: Trauma EXAMINATION: CT CERVICAL SPINE - CT Spine Cervical W/O Contrast Injection TECHNIQUE: Helically acquired images were obtained of the cervical spine. 2D reformatted images were reviewed. A radiation dose optimization technique was used for this scan. IV Contrast dosage and agent: None. RADIATION DOSAGE (If Supplied By Facility): CTDIvol = ( 19.56 ) mGy, DLP = ( 482.37 ) mGycm COMPARISON: FINDINGS: VERTEBRAE: No fracture or traumatic subluxation. No discrete lytic or blastic abnormality. Normal alignment. Normal craniocervical junction and cervicothoracic junction. DISCS and SPINAL CANAL: C2-3: Normal disc height and morphology. Normal central canal. Foramina are patent. C3-4: Normal disc height and morphology. Normal central canal. Foramina are patent. C4-5: Normal disc height and morphology. Normal central canal. Foramina are patent. C5-6: Mild disc space narrowing. Mild spondylotic bar. No canal stenosis. Moderate foraminal stenosis due to uncinate hypertrophy. C6-7: Normal disc height and morphology. Normal central canal. Foramina are patent. C7-T1: Normal disc height and morphology. Normal central canal. Foramina are patent. NECK SOFT TISSUES: No prevertebral soft tissue swelling. There is no cervical adenopathy. LUNG APICES: Clear. CT/Spine Cervical without Contras IMPRESSION: No evidence of trauma. Mild microvascular ischemic changes. Electronically Signed: Henny Marti MD at 18:57 EDT Reading Location ID and State: [id number] / Tel , Service support ,
[2023-02-22 16:54] VITALS: BP 105/65; PULSE 81; RESP 20; O2SAT 97
--- NOTE | 2023-02-22 17:05 | ED.VIS.FALL ---
HPI HPI - Fall History of Present Illness Chief Complaint: Fall Narrative Narrative: 47-year-old male presenting after being found on the roadside falling down. He has multiple bruises on the left arm and his back. He denies head injury but he has some dried blood on his lips. He has a history of alcoholic hepatitis, abnormal behavior, hepatic encephalopathy, diabetes. Patient is slurring his speech and he is a poor informant. He states that nothing really hurts and then he falls asleep. Patient recently seen [facility] Medical History Alcoholic cirrhosis Alcoholic hepatitis Anxiety and depression Carrier of hemochromatosis HFE gene mutation Cirrhosis Diabetes mellitus type 2 in nonobese Former smoker Former tobacco use Gastric reflux Gout History of alcohol abuse History of panic attacks HTN (hypertension) Hx of gout Seasonal allergies Sleep apnea Suicide attempt Trauma Home Medications folic acid 1 mg tablet 1 mg PO DAILY #90 tabs 05/02/22 [Rx Last Taken Unknown] thiamine HCl (vitamin B1) 100 mg tablet (Vitamin B-1) 200 mg (2 x 100 mg) PO BID VITAMIN #60 tabs 06/21/22 [Rx Last Taken Unknown] trazodone 50 mg tablet See Rx Instructions PO QHS PRN sleep #30 tabs 06/27/22 [Rx Last Taken Unknown] pantoprazole 40 mg tablet,delayed release 40 mg PO DAILY GERD 12/21/22 [History Last Taken Unknown] aripiprazole 2 mg tablet 2 mg PO QHS PSYCH 01/05/23 [History Last Taken Unknown] promethazine 25 mg tablet 25 mg PO QHS PRN nausea and vomiting #30 tabs 01/05/23 [Rx Last Taken Unknown] scopolamine base 1 mg over 3 days transdermal patch 1 patch transdermal Q72H NAUSEA #10 ea 02/02/23 [Rx Last Taken Unknown] furosemide 40 mg tablet 40 mg PO DAILY WATER PILL 02/07/23 [History Last Taken 02/06/23] rifaximin 550 mg tablet (Xifaxan) 550 mg PO BID DEPRESSION 02/07/23 [History Last Taken 02/06/23] sertraline 100 mg tablet 100 mg PO QHS DEPRES 02/12/23 [History Last Taken Unknown] sertraline 50 mg tablet (Zoloft) 150 mg PO DAILY 02/12/23 [History Last Taken Unknown] Allergy/AdvReac Type Severity Reaction Status Date / Time pioglitazone Allergy Mild liver Verified 02/11/23 22:16 damange Family History Other CVA (cerebral vascular accident) Cancer Cirrhosis Heart disease Hypertension Thyroid disorder Surgical History History of esophagogastroduodenoscopy (EGD) History of surgery 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 Status: Former smoker alcohol intake: former substance use type: does not use what type of physical activity do you participate in: other frequency: 1-2 times per week ROS ROS ED Constitutional Constitutional ED: Denies chills or fever(s) Eyes Eyes: Denies change in vision or diplopia ENT ENT ED: Denies rhinorrhea or sore throat Cardiovascular Cardiovascular: Denies chest pain or palpitations Respiratory/Chest Respiratory/Chest: Denies cough or dyspnea Gastrointestinal Gastrointestinal: Denies nausea or vomiting Genitourinary Genitourinary ED: Denies dysuria or hematuria Musculoskeletal Musculoskeletal: Reports back pain Integumentary Reports other Details: Bruising on left back. There is superficial abrasions and bruising on the left upper extremity but she does not have any significant tenderness Neurologic Neurologic: Denies headache(s) Psychiatric Psychiatric: Denies anxiety or depression EXAM Physical Exam Const Vital Signs: 02/22/23 16:13 02/22/23 16:54 02/22/23 16:56 Temperature 99.7 F H Temperature Source Temporal Pulse Rate 90 81 Respiratory Rate 16 20 H Respiratory Effort Normal Blood Pressure 126/63 H 105/65 Blood Pressure Mean 84 78 Pulse Ox 98 97 Oxygen Delivery Method Room Air Room Air 02/22/23 17:55 02/22/23 18:50 Temperature Temperature Source Pulse Rate 74 66 Respiratory Rate 18 15 Respiratory Effort Blood Pressure 103/63 108/67 Blood Pressure Mean 76 80 Pulse Ox 99 98 Oxygen Delivery Method Room Air Room Air Positive well nourished General Appearance ED: NAD HEENT Reports normocephalic HEENT Narrative: Dried blood noted on the lips no dental tenderness. No jaw malocclusion. Eyes PERRL and EOMs intact bilaterally Chest Wall inspection of chest normal Resp normal respiratory effort and no retractions Auscultation: Negative for rales, rhonchi or wheezes Cardio regular rate and regular rhythm GI non-tender Neuro oriented x3, CN's II-XII intact bilaterally, moves all extremities, no focal motor deficits and no sensory deficits noted Neuro Narrative: Slurred speech noted Sensorium / Orientation: alert Motor Exam: general weakness Psych Psych Narrative: Confused Skin Skin Narrative: Multiple bruises noted on the left flank and back. Superficial abrasions and bruising noted to the left upper extremity on the forearm and upper arm. No bony tenderness MDM MDM MDM Narrative Medical decision making narrative: Patient seen and evaluated for abnormal behavior. Apparently was found on the side of the road walking but he kept falling down and could not maintain himself in an upright position. He has bruising all over the left side of his body and left upper extremity. No evidence of head trauma except for the dried blood on his lips. Dentition intact. No malocclusion. No hemotympanum. No nasal septal hematoma. Patient appears to be slurring and is confused. Patient has long history of bizarre behavior and hepatic encephalopathy secondary to severe cirrhosis. Differential includes intracranial hemorrhage, concussion, cervical spine fracture intrathoracic or intra-abdominal injury. Dehydration, electrode abnormalities, hepatic encephalopathy, anemia, UTI hyperglycemia, hypoglycemia. It was noted that the patient was just here for mental health and was sent away to a facility for depression so I did check salicylate, acetaminophen, drug screen, EtOH. BC shows no leukocytosis. Hemoglobin stable 8.7. Platelets low at 67. These are all chronic in nature. INR 1.7. Total bilirubin 2.6 this is actually come down for him. Glucose 177 without anion gap. Salicylates, acetaminophen negative. EtOH negative. Drug screen positive for cannabinoids. Urinalysis negative for infection. CT of the brain was obtained and was negative. CT cervical spine negative. CT chest abdomen pelvis does not show evidence of trauma. 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 Due to the patient's level of confusion I did speak with Dr. Martinez regarding him who has seen him in the past. He recommended admission and giving him 1 g of neomycin daily, 500 mg of Flagyl every 12, lactulose 20 mg every 3 hours, azithromycin 500 mg every 12, IV Reglan 10 mg every 6 and this will help his ammonia come down faster. Patient was amenable to staying. Discussed with the hospitalist for admission. Impression: 1. Altered mental status 2. Hepatic encephalopathy 3. Left back contusion/bruising Lab Data Attestation: I reviewed the patient's lab results. Labs: Laboratory Results - last 24 hr 02/22/23 02/22/23 16:55 17:30 WBC 3.4 L RBC 2.47 L Hgb 8.7 L Hct 26.5 L MCV 107.3 H MCH 35.2 H MCHC 32.8 RDW Std Deviation 62.9 H RDW Coeff of Kaela 15.9 H Plt Count 67 L MPV 10.1 Immature Gran % (Auto) 0.600 Neut % (Auto) 72.2 H Lymph % (Auto) 13.4 L [place] % (Auto) 8.7 Eos % (Auto) 3.9 Baso % (Auto) 1.2 H Absolute Neuts (auto) 2.4 Absolute Lymphs (auto) 0.45 L Nucleated RBC % 0 Differential Comment PT 19.8 H INR 1.7 Sodium 143 Potassium 3.7 Chloride 112 H Carbon Dioxide 25.0 Anion Gap 6 BUN 14 Creatinine 0.92 Estim Creat Clear Calc 98.19 Est GFR (MDRD) Af Amer 112 Est GFR (MDRD) Non-Af 93 BUN/Creatinine Ratio 15.2 Glucose 177 H Calcium 7.8 L Phosphorus 2.4 L Magnesium 1.9 Total Bilirubin 2.60 H Direct Bilirubin 1.12 H AST 111 H ALT 40 Alkaline Phosphatase 227 H Ammonia 126.0 H Total Protein 5.5 L Albumin 2.4 L Globulin 3.1 Lipase 52 Urine Color Yellow Urine Clarity Clear Urine pH 7.0 Ur Specific [place] 1.015 Urine Protein 15 H Urine Glucose (UA) Normal Urine Ketones 5 H Urine Occult Blood Negative Urine Nitrite Negative Urine Bilirubin 1 H Urine Urobilinogen 8 H Ur Leukocyte Esterase 25 H Urine RBC 0 SEEN Urine WBC 0-5 SEEN Ur Squamous Epith Cells 0 SEEN Urine Bacteria 0 SEEN Urine Mucus 0 SEEN Salicylates < 1.7 L Urine Opiates Screen NEGATIVE Urine Methadone Screen NEGATIVE Acetaminophen < 2.0 L Ur Barbiturates Screen NEGATIVE Ur Phencyclidine Scrn NEGATIVE Ur Amphetamines Screen NEGATIVE MDMA (Ecstasy) Screen NEGATIVE U Benzodiazepines Scrn NEGATIVE Urine Cocaine Screen NEGATIVE U Cannabinoids Screen POSITIVE H Ur Drug Screen Comment Ethyl Alcohol < 3.0 Radiography Diagnostic Testing: Clinical Impression(s) from Imaging Studies Brain CT 02/22/23 16:42 IMPRESSION: Normal unenhanced CT scan of the brain. Electronically Signed: Henny Marti MD at 18:30 EDT Reading Location ID and State: Surekha Anthony MD Tel , Service support , Cervical Spine CT 02/22/23 16:42 IMPRESSION: No evidence of trauma. Mild microvascular ischemic changes. Electronically Signed: Henny Marti MD at 18:57 EDT Reading Location ID and State: Surekha Anthony MD Tel , Service support , Chest/Abdomen/Pelvis CT 02/22/23 16:42 IMPRESSION: 1. No evidence of trauma. 2. Right upper quadrant varices with question of cavernous transformation of the portal vein versus anatomic variant, no change from prior. Electronically Signed: Henny Marti MD at 18:46 EDT Reading Location ID and State: [place]kha Anthony MD Tel , Service support , Discharge Plan Disposition Disposition: Acute Care Hospital [facility] Discharge Date/Time: 02/22/23 21:03
[2023-02-22 17:21] LABS: Absolute Lymphocyte Count 0.45 X10^3/uL (0.83-4.51); Absolute Neutrophil Count 2.4 X10^3/uL (2.0-7.7); Basophil# 0.04 X10^3/uL; Basophil% 1.2 % (0-1); Eosinophil# 0.13 X10^3/uL; Eosinophils% 3.9 % (0-5); Hematocrit 26.5 % (40-54); Hemoglobin 8.7 g/dL (13.0-16.5); Lymphocyte # 0.45 X10^3/ul (0.83-4.51); Lymphocyte % 13.4 % (19-41); Mean Corp Hgb Conc 32.8 g/dL (32-36); Mean Corpuscular Hgb 35.2 pg (27.0-32.0); Mean Corpuscular Volume 107.3 fL (80-94); Mean Platelet Vol. 10.1 fl (6.2-12.0); Monocyte# 0.29 X10^3/uL; Monocyte% 8.7 % (0-10); NRBC Flagged by Analyzer 0 % (0-5); Neutrophil # 2.42 X10^3/uL (2.7-7.7); Neutrophil % 72.2 % (47-70); POSITIVE COUNT YES; POSITIVE DIFFERENTIAL YES; Platelet Count 67 K/mm3 (150-450); RBC Distribution Width CV 15.9 % (11.6-14.6); RBC Distribution Width SD 62.9 fl (35.1-43.9); Red Blood Count 2.47 M/mm3 (4.6-6.2); White Blood Count 3.4 K/mm3 (4.4-11.0)
[2023-02-22 17:24] LABS: Differential Indicated SCAN CRITERIA MET; International Normalized Ratio 1.7; Prothrombin Time (Protime)PT. 19.8 SECONDS (11.7-14.9)
[2023-02-22 17:39] LABS: Bacteria 0 SEEN /hpf (None Seen); Mucous, Urine 0 SEEN /hpf (<or=2+); Red Blood Cells-Urine 0 SEEN /hpf (0-5); Squamous Epithelial Cells - UA 0 SEEN /hpf (0-5)
[2023-02-22 17:41] LABS: AST(SGOT) 111 U/L (15-37); Alanine Aminotransfer ALT/SGPT 40 U/L (16-61); Albumin, Serum 2.4 g/dL (3.2-5.0); Alkaline Phosphatase 227 U/L (45-117); Anion Gap 6 (5-15); BUN 14 mg/dL (7-18); BUN/Creat Ratio 15.2 RATIO (10-20); Bilirubin, Direct 1.12 mg/dL (0.00-0.30); Calcium,Total 7.8 mg/dL (8.5-10.1); Chloride 112 mmol/L (98-107); Creatinine, Serum 0.92 mg/dL (0.70-1.30); EST Glomerular Filtration Rate 93 mL/min (>60); Est Glom Filt Rate - Afr Amer 112 mL/min (>60); Estimated Creatinine Clearance 98.19 ml/min; Globulin 3.1 g/dL (2.2-4.2); Glucose 177 mg/dL (74-106); Lipase 52 U/L (13-75); Potassium 3.7 mmol/L (3.5-5.1); Protein, Total 5.5 g/dL (6.4-8.2); Sodium Level 143 mmol/L (136-145)
[2023-02-22 17:55] VITALS: BP 103/63; PULSE 74; RESP 18; O2SAT 99
[2023-02-22 18:05] LABS: Alcohol, Blood (Medical)-Serum < 3.0 mg/dL
[2023-02-22 18:06] LABS: Acetaminophen (Tylenol) Level < 2.0 ug/mL (10.0-30.0); Salicylate < 1.7 mg/dL (2.8-20.0)
[2023-02-22 18:10] LABS: Color, Urine Yellow (Yellow); Glucose, Dipstick Normal (Normal); Ketone-Dipstick 5 mg/dl (Negative); Leukocyte Esterase-Dipstick 25 /ul (Negative); Nitrite-Dipstick Negative (Negative); Occult Blood-Urine Negative /ul (Negative); Protein-Dipstick 15 mg/dl (Negative); Specific Gravity, Urine 1.015 (1.002-1.030); Urine Bilirubin Dipstick 1 mg/dL (Negative); Urine Clarity Clear (Clear); Urine Urobilinogen 8 mg/dl (Normal)
[2023-02-22 18:12] LABS: White Blood Cells 0-5 SEEN /hpf (0-5)
[2023-02-22 18:19] LABS: Amphetamine Urine VISTA NEGATIVE (<1000 ng/mL); Barbiturate Urine VISTA NEGATIVE (< 200 ng/mL); Benzodiazepine Urine VISTA NEGATIVE (< 200 ng/mL); Cocaine Urine VISTA NEGATIVE (< 300 ng/mL); Ecstacy Urine VISTA NEGATIVE (< 500 ng/mL); Methadone Urine VISTA NEGATIVE (< 300 ng/mL); PCP Urine VISTA NEGATIVE (< 25 ng/mL); THC Urine VISTA POSITIVE (< 50 ng/mL); Vista UDS pH Range 7
[2023-02-22 18:50] VITALS: BP 108/67; PULSE 66; RESP 15; O2SAT 98
--- NOTE | 2023-02-22 19:38 | HP.PCM.HOS_ITS ---
HPI - General General Date of Admission: 02/22/23 Date of Service: 02/22/23 Chief Complaint: Found down along roadside, encephalopathic. HPI Narrative The patient is a 47 y/o M w/ PMHx: Hx Chronic alcoholic hepatitis w/ chronic hyperbilirubinemia/transaminitis, HTN, HLD, Allergic Rhinitis, ANDRES, Anxiety and Depression/Panic attacks, Gout, Former tobacco use, Diabetes mellitus type II, Chronic macrocytic anemia/Chronic thrombocytopenia secondary to history of EtOH abuse who presents to the [facility] ED on 02/22/23 with history of being found along the roadside with multiple bruises on his left arm and back with dried blood on his lips with denied head injury but significantly encephalopathic with slurred speech and significant lethargy prompting EMS call for transition to the ED for evaluation. In the ED he is initially very encephalopathic and lethargic but is starting to wake up and can answer some questions but is a poor historian still. Workup in the ED included T99.7 Temporally however, heart rate initially 90 with most recent repeat 66, BP initially 126/63 with most recent repeat 108/67, respiratory rate 16, 98% on room air, CBC with WBC 3.4, hemoglobin 8.7, MCV 107.3, platelets 67 with lymphopenia, coags with INR 1.7, PT 19.8, CMP with chloride 112, glucose 117, calcium 7.8, T. bili 2.60, D bili 1.12, AST/ALT 111/40, alk phos 227, ammonia 126, lipase 52, urinalysis with specific remedy 1.015, protein 15, ketone 5, negative nitrite, leukocyte Estrace 25 with no obvious evidence of UTI, UDS with positive cannabis, ethyl alcohol less than 3, acetaminophen less than 2, salicylate less than 1.7, CT of the brain with no acute intracranial finding, CT cervical spine with no evidence of any trauma with mild microvascular ischemic changes, CT chest/abdomen/pelvis with IV contrast with no evidence of any trauma, right upper quadrant with evidence of varices with questionable cavernous transformation of the portal vein versus anatomic variant which is unchanged from prior. [facility] Medical History (Updated 02/22/23 @ 20:[address] Valorie Meneses MD) Alcoholic cirrhosis Alcoholic hepatitis Anxiety and depression Carrier of hemochromatosis HFE gene mutation Cirrhosis Diabetes mellitus type 2 in nonobese Former smoker Former tobacco use Gastric reflux Gout History of alcohol abuse History of panic attacks HTN (hypertension) Hx of gout Seasonal allergies Sleep apnea Suicide attempt Trauma Home Medications folic acid 1 mg tablet 1 mg PO DAILY #90 tabs 05/02/22 [Rx Last Taken Unknown] thiamine HCl (vitamin B1) 100 mg tablet (Vitamin B-1) 200 mg (2 x 100 mg) PO BID #60 tabs 06/21/22 [Rx Last Taken Unknown] trazodone 50 mg tablet See Rx Instructions PO QHS PRN sleep #30 tabs 06/27/22 [Rx Last Taken Unknown] pantoprazole 40 mg tablet,delayed release 40 mg PO DAILY 12/21/22 [History Last Taken Unknown] aripiprazole 2 mg tablet 2 mg PO QHS 01/05/23 [History Last Taken Unknown] promethazine 25 mg tablet 25 mg PO QHS PRN nausea and vomiting #30 tabs 01/05/23 [Rx Last Taken Unknown] scopolamine base 1 mg over 3 days transdermal patch 1 patch transdermal Q72H #10 ea 02/02/23 [Rx Last Taken Unknown] furosemide 40 mg tablet 40 mg PO DAILY 02/07/23 [History Last Taken 02/06/23] rifaximin 550 mg tablet (Xifaxan) 550 mg PO BID 02/07/23 [History Last Taken 02/06/23] sertraline 100 mg tablet 100 mg PO QHS 02/12/23 [History Last Taken Unknown] sertraline 50 mg tablet (Zoloft) 150 mg PO DAILY 02/12/23 [History Last Taken Unknown] Allergy/AdvReac Type Severity Reaction Status Date / Time pioglitazone Allergy Mild liver Verified 02/11/23 22:16 damange Family History Other CVA (cerebral vascular accident) Cancer Cirrhosis Heart disease Hypertension Thyroid disorder other (History listed from prior visit, patient unable to differentiate upon cu rrent admission between M/F.) Surgical History History of esophagogastroduodenoscopy (EGD) History of surgery 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 Status: Former smoker alcohol intake: former substance use type: does not use what type of physical activity do you participate in: other frequency: 1-2 times per week ROS Review of Systems ROS Unobtainable: due to encephalopathy Vital Signs Vital Signs Vital Signs: 02/22/23 16:13 02/22/23 16:54 02/22/23 16:56 Temperature 99.7 F H Temperature Source Temporal Pulse Rate 90 81 Respiratory Rate 16 20 H Respiratory Effort Normal Blood Pressure 126/63 H 105/65 Blood Pressure Mean 84 78 Pulse Ox 98 97 Oxygen Delivery Method Room Air Room Air 02/22/23 17:55 02/22/23 18:50 Temperature Temperature Source Pulse Rate 74 66 Respiratory Rate 18 15 Respiratory Effort Blood Pressure 103/63 108/67 Blood Pressure Mean 76 80 Pulse Ox 99 98 Oxygen Delivery Method Room Air Room Air Weight Weight: 166 lb 14.239 oz Body Mass Index (BMI) 24.6 Physical Exam Narrative Physical Examination: General: Currently improving, more awake and alert although still not completely oriented, will follow some commands, laying in the ED bed, fatigued and sluggish. Skin: Normal color, normal turgor, no icterus, no cyanosis except significant very staged ecchymoses, abrasions, lacerations to the extremities. HEENT: AT/NC, EOMI, PERRLA, dry MM, no carotid bruits or JVD noted. Lungs: Diminished, greater bases, proper effort no rales, ronchi or wheezing. Heart: Currently regular rate and rhythm; no gallop, rub audible. Abdomen: Soft, generalized discomfort with palpation but no rebound or guarding, no marked distention, hyperactive BS, positive HM. Extremities: No cyanosis, clubbing, mild peripheral ankle edema. Neurological: Currently improving, more awake and alert although still not completely oriented, will follow some commands, laying in the ED bed, fatigued and sluggish, cognitive function improving but still not baseline intact; pupils equally reactive to light and accommodation, cranial nerves grossly normal, moving all 4 extremities, no obvious focal deficits, strength still moderately to severely global decrease secondary to acute presentation. Psychiatric: Affect appears fatigued, lethargic, no acute evidence of depressive or anxiety feelings but does have underlying history as well as panic attacks. Results Lab / Micro Data 02/22/23 16:55 02/22/23 16:55 Labs: Laboratory Results - last 24 hr 02/22/23 16:55: WBC 3.4 L, RBC 2.47 L, Hgb 8.7 L, Hct 26.5 L, MCV 107.3 H, MCH 35.2 H, MCHC 32.8, RDW Std Deviation 62.9 H, RDW Coeff of Kaela 15.9 H, Plt Count 67 L, MPV 10.1, Immature Gran % (Auto) 0.600, Neut % (Auto) 72.2 H, Lymph % (Auto) 13.4 L, [place] % (Auto) 8.7, Eos % (Auto) 3.9, Baso % (Auto) 1.2 H, Absolute Neuts (auto) 2.4, Absolute Lymphs (auto) 0.45 L, Nucleated RBC % 0, Differential Comment , PT 19.8 H, INR 1.7, Sodium 143, Potassium 3.7, Chloride 112 H, Carbon Dioxide 25.0, Anion Gap 6, BUN 14, Creatinine 0.92, Estim Creat Clear Calc 98.19, Est GFR (MDRD) Af Amer 112, Est GFR (MDRD) Non-Af 93, BUN/Creatinine Ratio 15.2, Glucose 177 H, Calcium 7.8 L, Total Bilirubin 2.60 H, Direct Bilirubin 1.12 H, AST 111 H, ALT 40, Alkaline Phosphatase 227 H, Ammonia 126.0 H, Total Protein 5.5 L, Albumin 2.4 L, Globulin 3.1, Lipase 52, Salicylates < 1.7 L, Acetaminophen < 2.0 L, Ethyl Alcohol < 3.0 02/22/23 17:30: Urine Color Yellow, Urine Clarity Clear, Urine pH 7.0, Ur Specific [place] 1.015, Urine Protein 15 H, Urine Glucose (UA) Normal, Urine Ketones 5 H, Urine Occult Blood Negative, Urine Nitrite Negative, Urine Bilirubin 1 H, Urine Urobilinogen 8 H, Ur Leukocyte Esterase 25 H, Urine RBC 0 SEEN, Urine WBC 0-5 SEEN, Ur Squamous Epith Cells 0 SEEN, Urine Bacteria 0 SEEN, Urine Mucus 0 SEEN, Urine Opiates Screen NEGATIVE, Urine Methadone Screen NEGATIVE, Ur Barbiturates Screen NEGATIVE, Ur Phencyclidine Scrn NEGATIVE, Ur Amphetamines Screen NEGATIVE, MDMA (Ecstasy) Screen NEGATIVE, U Benzodiazepines Scrn NEGATIVE, Urine Cocaine Screen NEGATIVE, U Cannabinoids Screen POSITIVE H, Ur Drug Screen Comment Radiology Impression Brain CT 02/22/23 16:42 IMPRESSION: Normal unenhanced CT scan of the brain. Electronically Signed: Henny Marti MD at 18:30 EDT Reading Location ID and State: [place] Anthony MD Tel , Service support , Cervical Spine CT 02/22/23 16:42 IMPRESSION: No evidence of trauma. Mild microvascular ischemic changes. Electronically Signed: Henny Marti MD at 18:57 EDT Reading Location ID and State: [place] Anthony MD Tel , Service support , Chest/Abdomen/Pelvis CT 02/22/23 16:42 IMPRESSION: 1. No evidence of trauma. 2. Right upper quadrant varices with question of cavernous transformation of the portal vein versus anatomic variant, no change from prior. Electronically Signed: Henny Marti MD at 18:46 EDT Reading Location ID and State: [place] / Tel , Service support , Assessment & Plan Assessment/Plan (1) Hepatic encephalopathy: PLAN: Plan The patient is a 47 y/o M w/ PMHx: Hx Chronic alcoholic hepatitis w/ chronic hyperbilirubinemia/transaminitis, HTN, HLD, Allergic Rhinitis, ANDRES, Anxiety and Depression/Panic attacks, Gout, Former tobacco use, Diabetes mellitus type II, Chronic macrocytic anemia/Chronic thrombocytopenia secondary to history of EtOH abuse who presents to the [facility] ED on 02/22/23 with history of being found along the roadside with multiple bruises on his left arm and back with dried blood on his lips with denied head injury but significantly encephalopathic with slurred speech and significant lethargy prompting EMS call for transition to the ED for evaluation. #1. Acute hepatic encephalopathy with mechanical fall with chronic alcoholic hepatitis/hyperbilirubinemia/transaminitis with history of former alcohol abuse: Admission ammonia level 126, T. bili 2.60, D bili 1.12, AST/ALT 111/40, alk phos 227, most recent prior to this noted T. bili 3.40, AST/ALT 56/33, alk phos 271, Will admit to [facility], will initiate more aggressive lactulose regimen, once patient clinically appropriate will continue patient home thiamine, folic acid, multivitamin, Xifaxan, Lasix home regimen, trend ammonia level, per recom mendation of GI Dr. Martinez will also maintain on neomycin 1 g daily, Flagyl 5 mg IV every 12, lactulose 20 mg every 3 hours, azithromycin 500 mg IV 12 as well as Reglan 10 mg IV every 6 to assist in rapidly decreasing the ammonia level, will maintain on aspiration and fall precautions especially given recent fall. Will continue GI consultation initiated per ED. PT/OT/case management consultation for discharge planning. Strongly encourage continued sobriety. #2. Chronic macrocytic anemia: Admission hemoglobin 8.7, MCV 107.3, baseline primarily 9-10 range, more recently 02/12/2023 hemoglobin 9.9, continue to closely trend. #3. Chronic thrombocytopenia: Likely secondary to chronic alcohol abuse history with alcoholic cirrhotic disease, admission platelets 67, baseline noted prior primarily 60-80 range more recently, most recent prior to presentation 02/12/2023 platelet 81, will continue to trend. #4. Hypertension: Continue home regimen including lasix, PRN hydralazine. #5. Hyperlipidemia: Continue home statin regimen. #6. Former tobacco use: Encourage continued tobacco cessation. #7. Diabetes mellitus type II: Hold oral home regimen, continue home insulin regimen, ADA diet, accu checks w/ ISS. #8. Anxiety and depression/panic attacks: We will continue patient home se rtraline and aripiprazole home regimen. Holding trazodone nightly as needed agent and will certainly hold any sedated regimen if appropriate. #9. GERD: We will continue patient home PPI. #10. ANDRES: Denies using CPAP, but currently poor historian. #11. DVT prophylaxis: SCDs. Charges/Coding Visit Charges Inpatient E&M: 84395 Init Hosp L3
[2023-02-22 20:30] LABS: Magnesium 1.9 mg/dL (1.6-2.6); Phosphorus 2.4 mg/dL (2.5-4.9)
[2023-02-22] MEDS: Metoclopramide 10 MG/2 ML Vial IV (20:57)
[2023-02-22] MEDS: Lactulose 20 GM/30 ML UDC PO ×2 (20:57→22:15)
[2023-02-22] MEDS: metroNIDAZOLE 500 MG/100 ML BAG 100 MG IV (20:57)
[2023-02-22 20:58] VITALS: BP 110/67; PULSE 69; RESP 18; TEMP 36.3; O2SAT 100
[2023-02-22 21:18] VITALS: BMI 24.5
[2023-02-22 21:34] VITALS: BP 124/69; PULSE 79; RESP 18; TEMP 36.4; O2SAT 98
[2023-02-22 22:20] LABS: Bedside Glucose 128 mg/dL (74-106)
[2023-02-22] MEDS: Ondansetron 4 MG/2 ML Vial IV (22:21)
[2023-02-22] MEDS: Acetaminophen 325 MG Tablet 650 MG PO (23:05)
[2023-02-23] MEDS: 0.9% Saline Lock 10 ML Syringe IV ×3 (00:09→08:59)
[2023-02-23] MEDS: Metoclopramide 10 MG/2 ML Vial IV ×2 (00:09→05:26)
[2023-02-23] MEDS: Lactulose 20 GM/30 ML UDC PO ×4 (01:48→11:30)
[2023-02-23 02:00] VITALS: BP 99/55; PULSE 73; RESP 16; TEMP 37.2; O2SAT 98
[2023-02-23 05:05] VITALS: BMI 24.6
[2023-02-23 06:43] LABS: Bedside Glucose 119 mg/dL (74-106)
[2023-02-23 06:46] LABS: Absolute Lymphocyte Count 0.93 X10^3/uL (0.83-4.51); Basophil# 0.04 X10^3/uL; Basophil% 0.9 % (0-1); Eosinophil# 0.27 X10^3/uL; Eosinophils% 5.7 % (0-5); Hematocrit 27.5 % (40-54); Lymphocyte # 0.93 X10^3/ul (0.83-4.51); Lymphocyte % 19.8 % (19-41); Mean Corp Hgb Conc 32.7 g/dL (32-36); Mean Corpuscular Hgb 35.3 pg (27.0-32.0); Mean Corpuscular Volume 107.8 fL (80-94); Mean Platelet Vol. 9.7 fl (6.2-12.0); Monocyte% 8.5 % (0-10); NRBC Flagged by Analyzer 0 % (0-5); Neutrophil # 3.04 X10^3/uL (2.7-7.7); Neutrophil % 64.7 % (47-70); POSITIVE COUNT YES; Platelet Count 68 K/mm3 (150-450); RBC Distribution Width CV 15.5 % (11.6-14.6); RBC Distribution Width SD 62.3 fl (35.1-43.9); Red Blood Count 2.55 M/mm3 (4.6-6.2); White Blood Count 4.7 K/mm3 (4.4-11.0)
[2023-02-23 07:13] LABS: ALB/GLOB Ratio 0.7 RATIO (0.9-2.4); AST(SGOT) 106 U/L (15-37); Alanine Aminotransfer ALT/SGPT 42 U/L (16-61); Albumin, Serum 2.3 g/dL (3.2-5.0); Alkaline Phosphatase 209 U/L (45-117); Anion Gap 4 (5-15); BUN 10 mg/dL (7-18); BUN/Creat Ratio 13.1 RATIO (10-20); Calcium,Total 7.9 mg/dL (8.5-10.1); Chloride 114 mmol/L (98-107); Creatinine, Serum 0.76 mg/dL (0.70-1.30); EST Glomerular Filtration Rate 116 mL/min (>60); Est Glom Filt Rate - Afr Amer 140 mL/min (>60); Estimated Creatinine Clearance 118.87 ml/min; Globulin 3.1 g/dL (2.2-4.2); Glucose 113 mg/dL (74-106); Potassium 3.7 mmol/L (3.5-5.1); Protein, Total 5.4 g/dL (6.4-8.2); Sodium Level 145 mmol/L (136-145)
--- NOTE | 2023-02-23 07:19 | EX.PCM.CON.G ---
HPI Consult Data Date of Consult: 02/25/23 HPI Narrative Reason for Consultation: Hepatic encephalopathy HPI Narrative: АЛЕКСАНДР ROJO, is a 47 M who presented to the ED after being found on the roadside falling down. He is well-known to the GI service. I have not seen him in about 8 months. Александр established with the GI clinic 09.13.21 with a previous diagnosis alcoholic hepatitis and alcoholic cirrhosis [place] in and subsequently quit alcohol consumption. Previously established with applications engineering manager Dr. Diana Abarca for alcoholic hepatitis without ascites, with coagulopathy and jaundice. He is pursuing transplant options through [facility] as they do not require COVID vaccination. He went back to [place] and was living there for several months but recently came back to [place]. He is not currently on any transplant list to my knowledge. The last time I saw him his meld was ranging from 16-20. He has no history of decompensated liver disease from ascites, GI bleeding from varices. He also has no history of chronic hepatitis C. Patient has a long history of major depression. He has multiple bruises on the left arm and his back. He denies head injury but he has some dried blood on his lips. He has a history of alcoholic hepatitis, abnormal behavior, hepatic encephalopathy, diabetes. Patient is slurring his speech and he is a poor informant. BC with WBC 3.4, hemoglobin 8.7, MCV 107.3, platelets 67 with lymphopenia, coags with INR 1.7, PT 19.8, CMP with chloride 112, glucose 117, calcium 7.8, T. bili 2.60, D bili 1.12, AST/ALT 111/40, alk phos 227, ammonia 126, lipase 52, urinalysis with specific remedy 1.015, protein 15, ketone 5, negative nitrite, leukocyte Estrace 25 with no obvious evidence of UTI, UDS with positive cannabis, ethyl alcohol less than 3, acetaminophen less than 2, salicylate less than 1.7 CT of the brain with no acute intracranial finding, CT cervical spine with no evidence of any trauma with mild microvascular ischemic changes, CT chest/abdomen/pelvis with IV contrast with no evidence of any trauma, right upper quadrant with evidence of varices with questionable cavernous transformation of the portal vein versus anatomic variant which is unchanged from prior. [facility] Medical History Alcoholic cirrhosis Alcoholic hepatitis Anxiety and depression Carrier of hemochromatosis HFE gene mutation Cirrhosis Diabetes mellitus type 2 in nonobese Former smoker Former tobacco use Gastric reflux Gout History of alcohol abuse History of panic attacks HTN (hypertension) Hx of gout Seasonal allergies Sleep apnea Suicide attempt Trauma Home Medications folic acid 1 mg tablet 1 mg PO DAILY #90 tabs 05/02/22 [Rx Last Taken Unknown] thiamine HCl (vitamin B1) 100 mg tablet (Vitamin B-1) 200 mg (2 x 100 mg) PO BID VITAMIN #60 tabs 06/21/22 [Rx Last Taken Unknown] trazodone 50 mg tablet See Rx Instructions PO QHS PRN sleep #30 tabs 06/27/22 [Rx Last Taken Unknown] pantoprazole 40 mg tablet,delayed release 40 mg PO DAILY GERD 12/21/22 [History Last Taken Unknown] aripiprazole 2 mg tablet 2 mg PO QHS PSYCH 01/05/23 [History Last Taken Unknown] promethazine 25 mg tablet 25 mg PO QHS PRN nausea and vomiting #30 tabs 01/05/23 [Rx Last Taken Unknown] scopolamine base 1 mg over 3 days transdermal patch 1 patch transdermal Q72H NAUSEA #10 ea 02/02/23 [Rx Last Taken Unknown] furosemide 40 mg tablet 40 mg PO DAILY WATER PILL 02/07/23 [History Last Taken 02/06/23] rifaximin 550 mg tablet (Xifaxan) 550 mg PO BID DEPRESSION 02/07/23 [History Last Taken 02/06/23] sertraline 100 mg tablet 100 mg PO QHS DEPRES 02/12/23 [History Last Taken Unknown] sertraline 50 mg tablet (Zoloft) 150 mg PO DAILY 02/12/23 [History Last Taken Unknown] Allergy/AdvReac Type Severity Reaction Status Date / Time pioglitazone Allergy Mild liver Verified 02/24/23 20:16 damange Family History Other CVA (cerebral vascular accident) Cancer Cirrhosis Heart disease Hypertension Thyroid disorder Surgical History History of esophagogastroduodenoscopy (EGD) History of surgery 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 Skin: Normal color, normal turgor, no icterus, no cyanosis except significant very staged ecchymoses, abrasions, lacerations to the extremities. HEENT: AT/NC, EOMI, PERRLA, dry MM, no carotid bruits or JVD noted. Lungs: Diminished, greater bases, proper effort no rales, ronchi or wheezing. Heart: Currently regular rate and rhythm; no gallop, rub audible. Abdomen: Soft, generalized discomfort with palpation but no rebound or guarding, no marked distention, hyperactive BS, positive HM. Extremities: No cyanosis, clubbing, mild peripheral ankle edema. Neurological: Currently improving, more awake and alert although still not completely oriented, will follow some commands, laying in the ED bed, fatigued and sluggish, cognitive function improving but still not baseline intact; pupils equally reactive to light and accommodation, cranial nerves grossly normal, moving all 4 extremities, no obvious focal deficits, strength still moderately to severely global decrease secondary to acute presentation. Psychiatric: Affect appears fatigued, lethargic, no acute evidence of depressive or anxiety feelings but does have underlying history as well as panic attacks. Lab / Micro Data 02/23/23 06:34 02/23/23 06:34 Labs: Laboratory Results - last 24 hr 02/22/23 16:55: WBC 3.4 L, RBC 2.47 L, Hgb 8.7 L, Hct 26.5 L, MCV 107.3 H, MCH 35.2 H, MCHC 32.8, RDW Std Deviation 62.9 H, RDW Coeff of Kaela 15.9 H, Plt Count 67 L, MPV 10.1, Immature Gran % (Auto) 0.600, Neut % (Auto) 72.2 H, Lymph % (Auto) 13.4 L, [place] % (Auto) 8.7, Eos % (Auto) 3.9, Baso % (Auto) 1.2 H, Absolute Neuts (auto) 2.4, Absolute Lymphs (auto) 0.45 L, Nucleated RBC % 0, Differential Comment , PT 19.8 H, INR 1.7, Sodium 143, Potassium 3.7, Chloride 112 H, Carbon Dioxide 25.0, Anion Gap 6, BUN 14, Creatinine 0.92, Estim Creat Clear Calc 98.19, Est GFR (MDRD) Af Amer 112, Est GFR (MDRD) Non-Af 93, BUN/Creatinine Ratio 15.2, Glucose 177 H, Calcium 7.8 L, Phosphorus 2.4 L, Magnesium 1.9, Total Bilirubin 2.60 H, Direct Bilirubin 1.12 H, AST 111 H, ALT 40, Alkaline Phosphatase 227 H, Ammonia 126.0 H, Total Protein 5.5 L, Albumin 2.4 L, Globulin 3.1, Lipase 52, Salicylates < 1.7 L, Acetaminophen < 2.0 L, Ethyl Alcohol < 3.0 02/22/23 17:30: Urine Color Yellow, Urine Clarity Clear, Urine pH 7.0, Ur Specific [place] 1.015, Urine Protein 15 H, Urine Glucose (UA) Normal, Urine Ketones 5 H, Urine Occult Blood Negative, Urine Nitrite Negative, Urine Bilirubin 1 H, Urine Urobilinogen 8 H, Ur Leukocyte Esterase 25 H, Urine RBC 0 SEEN, Urine WBC 0-5 SEEN, Ur Squamous Epith Cells 0 SEEN, Urine Bacteria 0 SEEN, Urine Mucus 0 SEEN, Urine Opiates Screen NEGATIVE, Urine Methadone Screen NEGATIVE, Ur Barbiturates Screen NEGATIVE, Ur Phencyclidine Scrn NEGATIVE, Ur Amphetamines Screen NEGATIVE, MDMA (Ecstasy) Screen NEGATIVE, U Benzodiazepines Scrn NEGATIVE, Urine Cocaine Screen NEGATIVE, U Cannabinoids Screen POSITIVE H, Ur Drug Screen Comment 02/22/23 21:55: POC Glucose 128 H 02/23/23 06:21: POC Glucose 119 H 02/23/23 06:34: WBC 4.7, RBC 2.55 L, Hgb 9.0 L, Hct 27.5 L, MCV 107.8 H, MCH 35.3 H, MCHC 32.7, RDW Std Deviation 62.3 H, RDW Coeff of Kaela 15.5 H, Plt Count 68 L, MPV 9.7, Immature Gran % (Auto) 0.400, Neut % (Auto) 64.7, Lymph % (Auto) 19.8, [place] % (Auto) 8.5, Eos % (Auto) 5.7 H, Baso % (Auto) 0.9, Absolute Neuts (auto) 3.0, Absolute Lymphs (auto) 0.93, Nucleated RBC % 0, Sodium 145, Potassium 3.7, Chloride 114 H, Carbon Dioxide 27.0, Anion Gap 4 L, BUN 10, Creatinine 0.76, Estim Creat Clear Calc 118.87, Est GFR (MDRD) Af Amer 140, Est GFR (MDRD) Non-Af 116, BUN/Creatinine Ratio 13.1, Glucose 113 H, Calcium 7.9 L, Total Bilirubin 2.50 H, AST 106 H, ALT 42, Alkaline Phosphatase 209 H, Ammonia 136.0 H, Total Protein 5.4 L, Albumin 2.3 L, Globulin 3.1, Albumin/Globulin Ratio 0.7 L Radiology Impression Brain CT 02/22/23 16:42 IMPRESSION: Normal unenhanced CT scan of the brain. Electronically Signed: Henny Marti MD at 18:30 EDT Reading Location ID and State: [place] Anthony MD Tel , Service support , Cervical Spine CT 02/22/23 16:42 IMPRESSION: No evidence of trauma. Mild microvascular ischemic changes. Electronically Signed: Henny Marti MD at 18:57 EDT Reading Location ID and State: [place] Anthony MD Tel , Service support , Chest/Abdomen/Pelvis CT 02/22/23 16:42 IMPRESSION: 1. No evidence of trauma. 2. Right upper quadrant varices with question of cavernous transformation of the portal vein versus anatomic variant, no change from prior. Electronically Signed: Henny Marti MD at 18:46 EDT Reading Location ID and State: [place] Anthony MD Tel , Service support , Assessment & Plan Assessment/Plan (1) Cirrhosis: QUALIFIERS: Hepatic cirrhosis type: alcoholic cirrhosis Ascites presence: without ascites Qualified Code(s): K70.30 - Alcoholic cirrhosis of liver without ascites PLAN: Alcoholic cirrhosis with a meld of 16.? He is also a child [employer] with decompensated liver disease possibly secondary to noncompliance with medicines. His LFTs and liver enzymes are about the same.? Would recommend to continue current outpatient medicines.? He is not showing any bleeding or liver failure.? (2) Confusion: PLAN: Secondary to grade 2-3 hepatic encephalopathy. (3) Fever: QUALIFIERS: Fever type: due to other condition Qualified Code(s): R50.81 - Fever presenting with conditions classified elsewhere PLAN: I do not know why he is experiencing fevers. I will check blood cultures x2, urinalysis, chest x-ray and recheck a CBC along with an ammonia, lactate, CRP ESR and LDH. PLAN: Plan Recommend lactulose every 2 hours, neomycin, Flagyl and Xifaxan.? His ammonia level is going up.? Hopefully this will help sterilize his gastrointestinal tract and let the lactulose worked better. Recheck INR, alpha-fetoprotein. Charges/Coding Visit Charges Inpatient E&M: 39259 Init Hosp L3
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
[2023-02-23 08:42] VITALS: BP 105/67; PULSE 81; RESP 17; TEMP 36.9; O2SAT 100
[2023-02-23] MEDS: metroNIDAZOLE 500 MG/100 ML BAG 100 MG IV (08:59)
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
[2023-02-23 13:23] LABS: Bedside Glucose 129 mg/dL (74-106)
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
--- NOTE | 2023-02-23 14:22 | NURSING ---
Pt wanted to leave AMA despite this Nurse talking to him and a [facility]le[facility] talking to him. Pt states he needs to go get his truck because he has superbowl rings on the floor of the car. This RN had pt get dressed. Pt left and then this RN got a call from Lab stating that pt was downstairs at the outpt lab asking about an INR level. LAb states that pt is pacing around waiting but has a taxi. Officer Jayme is being called by Chantell Charge Nurse to go and see the pt.
--- NOTE | 2023-02-23 14:25 | CASEMGMT ---
Social Work Pt left AMA. Phone call to pt Cylinder Checker at [facility] and updated that pt left AMA and called a cab. MELISSA Bailey
[2023-02-24 04:07] LABS: AFP, Tumor Marker 3.1 ng/mL (0.0-6.9)
== END 2023-02-23 14:01 | disposition left against medical advice (07) | DRG 442 ==
LOC: ED 16:38 → MS3 02-23 07:18
PROVIDERS: Internal Medicine Gastroenterology; Admitting Provider Family Medicine; Emergency Provider Student in an Organized Health Care Education/Training Program; PCP Internal Medicine; Visit Provider Internal Medicine
DX: K76.82 Hepatic encephalopathy (principal); K76.6 Portal hypertension; K70.30 Alcoholic cirrhosis of liver without ascites; E11.9 Type 2 diabetes mellitus without complications; E88.09 Other disorders of plasma-protein metabolism, not elsewhere classified; D53.9 Nutritional anemia, unspecified; E78.5 Hyperlipidemia, unspecified; F10.11 Alcohol abuse, in remission; K70.10 Alcoholic hepatitis without ascites; I10 Essential (primary) hypertension; F32.9 Major depressive disorder, single episode, unspecified; S20.222A Contusion of left back wall of thorax, initial encounter; K21.9 Gastro-esophageal reflux disease without esophagitis; S40.022A Contusion of left upper arm, initial encounter; R50.81 Fever presenting with conditions classified elsewhere; Z53.29 Procedure and treatment not carried out because of patient's decision for other reasons; Y90.0 Blood alcohol level of less than 20 mg/100 ml; F41.0 Panic disorder [episodic paroxysmal anxiety]; Y92.410 Unspecified street and highway as the place of occurrence of the external cause; Z91.148 Patient's other noncompliance with medication regimen for other reason; Z79.899 Other long term (current) drug therapy; Z87.891 Personal history of nicotine dependence; W19.XXXA Unspecified fall, initial encounter; R47.81 Slurred speech; G47.33 Obstructive sleep apnea (adult) (pediatric)
CPT/HCPCS: 36415; 70450; 71260; 72125; 74177; 80048; 80053; 80076; 80307; 80329; 81001; 82077; 82105; 82140; 82962; 83690; 83735; 84100; 85025; 85610; 93005; 96365; 96366; 96367; 96375; 96376; 99221; 99285; J7050; Q9967; A4216; G0378; G0480; J2405

== ENCOUNTER 2023-02-24 05:07 | Emergency (ER) | payer BC, SELFPAY ==
[2023-02-24 05:08] VITALS: BP 143/60; PULSE 99; RESP 15; TEMP 37.2; O2SAT 98; BMI 25.0
--- NOTE | 2023-02-24 05:36 | ED.VIS.FALL ---
HPI HPI - Fall History of Present Illness Chief Complaint: Mental Health Narrative Narrative: 47-year-old male past medical history of depression and anxiety, multiple visits for suicidality, cirrhosis of the liver presents because he states he does not feel safe at home because he keeps tripping over everything. He denies any suicidal ideation or homicidal ideation. He states that he is supposed to follow-up with his psychiatric counselor tomorrow, and they are going to help him clean up his place but he does not feel safe because he keeps tripping over everything. He lives at home with his cat. He called EMS tonight because he states he wanted a place to stay other than his apartment until the morning. He has a self-induced cut on his left forearm from 2 weeks ago that he states reopened when he fell one of the multiple times in his apartment. PFSH [facility] Medical History Alcoholic cirrhosis Alcoholic hepatitis Anxiety and depression Carrier of hemochromatosis HFE gene mutation Cirrhosis Diabetes mellitus type 2 in nonobese Former smoker Former tobacco use Gastric reflux Gout History of alcohol abuse History of panic attacks HTN (hypertension) Hx of gout Seasonal allergies Sleep apnea Suicide attempt Trauma Home Medications folic acid 1 mg tablet 1 mg PO DAILY #90 tabs 05/02/22 [Rx Last Taken Unknown] thiamine HCl (vitamin B1) 100 mg tablet (Vitamin B-1) 200 mg (2 x 100 mg) PO BID VITAMIN #60 tabs 06/21/22 [Rx Last Taken Unknown] trazodone 50 mg tablet See Rx Instructions PO QHS PRN sleep #30 tabs 06/27/22 [Rx Last Taken Unknown] pantoprazole 40 mg tablet,delayed release 40 mg PO DAILY GERD 12/21/22 [History Last Taken Unknown] aripiprazole 2 mg tablet 2 mg PO QHS PSYCH 01/05/23 [History Last Taken Unknown] promethazine 25 mg tablet 25 mg PO QHS PRN nausea and vomiting #30 tabs 01/05/23 [Rx Last Taken Unknown] scopolamine base 1 mg over 3 days transdermal patch 1 patch transdermal Q72H NAUSEA #10 ea 02/02/23 [Rx Last Taken Unknown] furosemide 40 mg tablet 40 mg PO DAILY WATER PILL 02/07/23 [History Last Taken 02/06/23] rifaximin 550 mg tablet (Xifaxan) 550 mg PO BID DEPRESSION 02/07/23 [History Last Taken 02/06/23] sertraline 100 mg tablet 100 mg PO QHS DEPRES 02/12/23 [History Last Taken Unknown] sertraline 50 mg tablet (Zoloft) 150 mg PO DAILY 02/12/23 [History Last Taken Unknown] Allergy/AdvReac Type Severity Reaction Status Date / Time pioglitazone Allergy Mild liver Verified 02/24/23 05:19 damange Family History Other CVA (cerebral vascular accident) Cancer Cirrhosis Heart disease Hypertension Thyroid disorder Surgical History History of esophagogastroduodenoscopy (EGD) History of surgery 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 HEENT: No sore throat. No neck pain. No loss of vision. No rhinorrhea. Cardiovascular: No chest pain. No palpitations. No pedal edema. Respiratory: No cough, no shortness of breath. Abdominal: No abdominal pain. No nausea. No vomiting. Genitourinary: No dysuria. No hematuria. Musculoskeletal: No myalgias. No arthralgias. Neurologic: No headaches. No dizziness. No lightheadedness. Skin: No rash. No change in color. Psychiatric: No depression. No anxiety. Denies suicidal ideation. No hallucinations. EXAM Physical Exam Narrative Exam Narrative: Afebrile. Vital signs noted. HEENT: Normocephalic. Atraumatic. PERRL, EOMI. Neck soft and supple. No point tenderness or step off. Cardiovascular: Regular rate and rhythm. No murmurs, rubs, or gallops appreciated. Respiratory: No tachypnea. Lungs clear to auscultation bilaterally. Gastrointestinal: Abdomen soft, nontender, with normoactive bowel sounds. No rebound or guarding. Neurological: Awake. Alert. Nonfocal, nonlateralizing. Skin: No rash. Normal color. No pallor. Positive healing laceration left forearm, no active bleeding. Musculoskeletal: No pedal edema. Full range of motion extremities. Const Vital Signs: 02/24/23 05:08 02/24/23 05:16 Temperature 99.0 F Temperature Source Temporal Pulse Rate 99 Respiratory Rate 15 Respiratory Effort Normal Non-Labored Respiratory Depth Normal Respiratory Pattern Normal Blood Pressure 143/60 H Blood Pressure Mean 87 Pulse Ox 98 Oxygen Delivery Method Room Air Room Air MDM MDM MDM Narrative Medical decision making narrative: I do not feel that he needs medical clearance labs and I do not feel that he needs pink slipped. He states he called EMS mainly because he wanted somewhere else to stay until the morning. He fell asleep here in the emergency department. I do not feel laboratory work is indicated. He has baseline odd behavior according to the chart. I reviewed his prior ED visits and they are mainly for psychiatric reasons, but he has no complaints today and states he is doing well. I feel he can be discharged safely home with follow-up. Upon repeat evaluation at approximately 635, he was able to ambulate to the bathroom without difficulty, and told the RN that he would like to be discharged. I do not feel that he is encephalopathic to the point where he is stumbling and cannot ambulate. I do not feel he requires observation or admission at this time. Return instructions to the emergency department were reviewed. Disposition is discharged home in stable condition. Discharge Plan Triage Chief Complaint: Mental Health Other Complaint: Fall ED Provider: Baljeet Mckeon Dx/Rx/DC Orders Clinical Impression: Encounter for medical screening examination, Bizarre behavior, Frequent falls Instructions: ED Mechanical Fall, ED Screening Exam Medical Nonurgent, ED Fall Prevention Prescriptions: No Action thiamine HCl (vitamin B1) [Vitamin B-1] 100 mg Tablet 200 mg PO BID Qty: 60 0RF pantoprazole 40 mg tablet,delayed release (DR/EC) 40 mg PO DAILY Rx Instructions: take 1 tablet by mouth once daily aripiprazole 2 mg tablet 2 mg PO QHS Patient Comments: take 1 tablet by mouth once daily promethazine 25 mg tablet 25 mg PO QHS PRN (Reason: nausea and vomiting) Qty: 30 0RF sertraline 100 mg tablet 100 mg PO QHS Patient Comments: TAKE 1 TABLET BY MOUTH EVERY DAY sertraline [Zoloft] 50 mg tablet 150 mg PO DAILY furosemide 40 mg tablet 40 mg PO DAILY Rx Instructions: take 1 tablet by mouth once daily Xifaxan 550 mg tablet 550 mg PO BID Rx Instructions: take 1 tablet by mouth twice a day folic acid 1 mg tablet 1 mg PO DAILY Qty: 90 3RF trazodone 50 mg tablet See Rx Instructions PO QHS PRN (Reason: sleep) Qty: 30 1RF Rx Instructions: May take 1/2 to 1 tablet nightly as needed scopolamine base 1 mg over 3 days patch 3 day 1 patch transdermal Q72H Qty: 10 2RF Primary Care Provider: Ita Goddard Referrals: Ita Goddard MD [Primary Care Provider] - As soon as possible Disposition Disposition: Home, Self Care
[2023-02-24 06:37] VITALS: BP 143/60; PULSE 99; RESP 15; O2SAT 98
== END 2023-02-24 06:38 | disposition home or self-care (01) ==
PROVIDERS: Emergency Provider Emergency Medicine; PCP Internal Medicine; Visit Provider Emergency Medicine
DX: Z00.00 Encounter for general adult medical examination without abnormal findings (principal); E11.9 Type 2 diabetes mellitus without complications; F41.9 Anxiety disorder, unspecified; Z87.891 Personal history of nicotine dependence; I10 Essential (primary) hypertension; F32.A Depression, unspecified; R29.6 Repeated falls; Z59.19 Other inadequate housing
CPT/HCPCS: 99285

== ENCOUNTER 2023-02-24 06:41 | Outpatient (RCR) | payer BC, SELFPAY ==
[2023-02-24 07:41] LABS: ALB/GLOB Ratio 0.7 RATIO (0.9-2.4); AST(SGOT) 109 U/L (15-37); Alanine Aminotransfer ALT/SGPT 50 U/L (16-61); Albumin, Serum 2.6 g/dL (3.2-5.0); Alkaline Phosphatase 322 U/L (45-117); Anion Gap 5 (5-15); BUN 9 mg/dL (7-18); Calcium,Total 7.8 mg/dL (8.5-10.1); Chloride 110 mmol/L (98-107); Creatinine, Serum 0.75 mg/dL (0.70-1.30); EST Glomerular Filtration Rate 118 mL/min (>60); Est Glom Filt Rate - Afr Amer 143 mL/min (>60); Globulin 3.5 g/dL (2.2-4.2); Glucose 92 mg/dL (74-106); Potassium 3.5 mmol/L (3.5-5.1); Protein, Total 6.1 g/dL (6.4-8.2); Sodium Level 142 mmol/L (136-145)
[2023-02-24 08:27] LABS: International Normalized Ratio 1.6; Prothrombin Time (Protime)PT. 19.3 SECONDS (11.7-14.9)
== END 2023-02-24 18:00 | disposition home or self-care (01) ==
LOC: LAB 06:41
PROVIDERS: PCP Internal Medicine; Referring Provider Internal Medicine Gastroenterology; Visit Provider Internal Medicine Gastroenterology
DX: K74.60 Unspecified cirrhosis of liver (principal)
CPT/HCPCS: 36415; 80053; 85610

== ENCOUNTER 2023-02-24 17:52 | Emergency (ER) | payer BC, SELFPAY ==
[2023-02-24 17:56] VITALS: BP 143/83; PULSE 106; RESP 18; TEMP 36.1; O2SAT 100
--- NOTE | 2023-02-24 18:06 | ED.RN ---
PT LWBS [id number]
== END 2023-02-24 18:06 | disposition left against medical advice (07) ==
LOC: ED 18:08
PROVIDERS: PCP Internal Medicine
DX: Z53.21 Procedure and treatment not carried out due to patient leaving prior to being seen by health care provider (principal)

== ENCOUNTER 2023-02-24 20:15 | Emergency (ER) | payer BC, SELFPAY ==
[2023-02-24 20:16] VITALS: BP 148/89; PULSE 113; RESP 16; TEMP 36.1; O2SAT 99; BMI 22.4
--- NOTE | 2023-02-24 21:06 | EDS_ITS ---
HPI HPI - Psych History of Present Illness Chief Complaint: Laceration Detail of Chief Complaint: Cutter with superficial lacerations on his left forearm. 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 This is his third visit in the last 24 hours as emergency department. The police were called on him because he was urinating in public or something and when they were talking with them to get out of being arrested he told him he was suicidal and need to be brought to the emergency department. When I interview him in the nurses he denies being suicidal. Said he was not trying to kill himself he cuts to relieve his stress. He has recently been in a mental health institution, Formerly [facility], Prior similar symptoms: Yes Recent Illness/Hospitalization: Yes PFSH [facility] Medical History Alcoholic cirrhosis Alcoholic hepatitis Anxiety and depression Carrier of hemochromatosis HFE gene mutation Cirrhosis Diabetes mellitus type 2 in nonobese Former smoker Former tobacco use Gastric reflux Gout History of alcohol abuse History of panic attacks HTN (hypertension) Hx of gout Seasonal allergies Sleep apnea Suicide attempt Trauma Home Medications folic acid 1 mg tablet 1 mg PO DAILY #90 tabs 05/02/22 [Rx Last Taken Unknown] thiamine HCl (vitamin B1) 100 mg tablet (Vitamin B-1) 200 mg (2 x 100 mg) PO BID VITAMIN #60 tabs 06/21/22 [Rx Last Taken Unknown] trazodone 50 mg tablet See Rx Instructions PO QHS PRN sleep #30 tabs 06/27/22 [Rx Last Taken Unknown] pantoprazole 40 mg tablet,delayed release 40 mg PO DAILY GERD 12/21/22 [History Last Taken Unknown] aripiprazole 2 mg tablet 2 mg PO QHS PSYCH 01/05/23 [History Last Taken Unknown] promethazine 25 mg tablet 25 mg PO QHS PRN nausea and vomiting #30 tabs 01/05/23 [Rx Last Taken Unknown] scopolamine base 1 mg over 3 days transdermal patch 1 patch transdermal Q72H NAUSEA #10 ea 02/02/23 [Rx Last Taken Unknown] furosemide 40 mg tablet 40 mg PO DAILY WATER PILL 02/07/23 [History Last Taken 02/06/23] rifaximin 550 mg tablet (Xifaxan) 550 mg PO BID DEPRESSION 02/07/23 [History Last Taken 02/06/23] sertraline 100 mg tablet 100 mg PO QHS DEPRES 02/12/23 [History Last Taken Unknown] sertraline 50 mg tablet (Zoloft) 150 mg PO DAILY 02/12/23 [History Last Taken Unknown] Allergy/AdvReac Type Severity Reaction Status Date / Time pioglitazone Allergy Mild liver Verified 02/24/23 20:16 damange Family History Other CVA (cerebral vascular accident) Cancer Cirrhosis Heart disease Hypertension Thyroid disorder Surgical History History of esophagogastroduodenoscopy (EGD) History of surgery 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 Review of Systems ROS Unobtainable: Denies due to encephalopathy Constitutional Constitutional ED: Denies chills or fever(s) Eyes Eyes: Denies blurry vision ENT ENT ED: Denies ear pain Cardiovascular Cardiovascular: Denies chest pain Respiratory/Chest Respiratory/Chest: Denies cough or dyspnea Gastrointestinal Gastrointestinal: Denies abdominal pain Genitourinary Genitourinary ED: Denies dysuria Musculoskeletal Musculoskeletal: Denies arthralgias Integumentary Denies abscess Neurologic Neurologic: Denies headache(s) Psychiatric Psychiatric: Denies anxiety Endocrine Endocrinology: Denies polydipsia Hematologic/Lymphatic Hematologic/Lymphatic: Denies easy bleeding Allergic/Immunologic Allergic/Immunologic ED: Denies mouth swelling EXAM Physical Exam Narrative Exam Narrative: Well-appearing 39-year-old male. Vital signs stable afebrile. He does not look septic or toxic. H EENT exam unremarkable atraumatic. Pupils round reactive light. Neck nontender. No trauma. Lungs clear to auscultation bilaterally. Heart regular rhythm rate about 105 with a 4/6 systolic ejection murmur. Chest wall and ribs nontender. Abdomen soft nontender. No peritoneal signs. Pelvic girdle intact. Moving all 4 extremities. Multiple superficial self-inflicted lacerations to his left forearm. No need to be repaired. No infection. No foreign body. No pulsatile bleeding. No significant hematoma. Abrasions on both lower extremities and 1+ edema which is chronic from his liver disease. Neurologically is awake and alert. He is answering questions and following commands. Currently he is not verbally or physically violent. Const Vital Signs: 02/24/23 20:16 Temperature 97 F L Temperature Source Temporal Pulse Rate 113 H Respiratory Rate 16 Blood Pressure 148/89 H Blood Pressure Mean 108 Pulse Ox 99 Positive well nourished and well developed; Negative for cachectic, contractures or unkempt General Appearance ED: well developed and NAD; Negative for unkempt, cachectic, contractures or pallor Nutritional Appearance: Negative for cachectic HEENT Reports moist mucous membranes normocephalic and atraumatic; Negative for trauma or tenderness Eyes EOMs intact bilaterally General Eye ED: Negative for pale conjunctiva or scleral icterus Neck no lymphadenopathy, supple and no JVD General: Negative for tenderness Resp normal respiratory effort and clear to auscultation bilaterally Effort and Inspection: Negative for retractions Auscultation: Negative for rales, rhonchi or wheezes Cardio S1 normal heart sound and S2 normal heart sound; Negative for no murmurs Cardio Narrative: 4/6 systolic ejection murmur. Rate: tachycardic Rhythm: regular rhythm GI non-tender, non-distended and no masses Inspection: Negative for abdominal distention Auscultation: normoactive bowel sounds Palpation: soft; Negative for tender or guarding Back/Spine no CVA tenderness Back/Spine Narrative: Bruise on his left lower rib cage lateral to the thoracic spine on the left. No crepitance. No subcu air. General Back: Negative for CVA tenderness Cervical Spine: Negative for cervical spine tenderness Thoracic Spine / Upper Back: Negative for thoracic spinal tenderness Lumbar Spine / Lower Back: Negative for lumbar spinal tenderness Extremity Negative for normal to inspection Extremity Narrative: Chronic peripheral edema. Abrasions to both knees. Superficial lacerations left forearm. No need for. No pulsatile bleeding. No infection or foreign body. General Extremety ED: Yes edema; Negative for tenderness General Extremity: edema Neuro oriented x3 and CN's II-XII intact bilaterally Sensorium / Orientation: alert, oriented to person, oriented to place and oriented to time Motor Exam: strength 5/5 throughout Psych mental status grossly normal, thought process normal, cooperative, affect normal, speech normal, activity/motor behavior normal, denies hallucinations, denies homicidal ideation and denies suicidal ideation Appearance: grossly normal; Negative for unkempt Attitude: calm, engaged, No paranoid, No withdrawn, No bizarre and No uncooperative Activity / Motor Behavior: appropriate eye contact Speech: normal speech Mood & Affect: depressed Thought Process: normal thought process Thought Content: normal thought content Attention / Concentration: attention grossly intact Memory / Cognition: memory grossly intact Insight: insight good Judgement: judgement good Skin Skin Narrative: Abrasions on both knees. Bruise on his back. Superficial lacerations left forearm. General Skin Exam: Negative for jaundice or pallor Lesions: no lesions Rashes: no rashes Trauma: Negative for abrasion Wounds: Negative for amputation MDM MDM MDM Narrative Medical decision making narrative: This is the patient's third visit last 24 hours. He denies being suicidal. He has had recent labs. I do not think he needs to be admitted. Nurses will clean and dress his wounds. He will be discharged. Reportedly has a place to go but he chooses to walk the streets. I did review the patient's last visits and labs. His labs and CAT scan of his head abdomen and pelvis all were unremarkable other chronic changes. We will check a blood sugar and he will be discharged home. History & Record Review Discussion w/independent historian: Patient Additional record(s) reviewed:: Prior inpatient record, Prior outpatient record, Prior ED visit and Prior labs Discharge Plan Triage Chief Complaint: Laceration ED Provider: Carlos Lawrence Dx/Rx/DC Orders Clinical Impression: Self-inflicted laceration of left wrist, Depression, History of cirrhosis, History of diabetes mellitus Instructions: ED Depression Prescriptions: No Action thiamine HCl (vitamin B1) [Vitamin B-1] 100 mg Tablet 200 mg PO BID Qty: 60 0RF pantoprazole 40 mg tablet,delayed release (DR/EC) 40 mg PO DAILY Rx Instructions: take 1 tablet by mouth once daily aripiprazole 2 mg tablet 2 mg PO QHS Patient Comments: take 1 tablet by mouth once daily promethazine 25 mg tablet 25 mg PO QHS PRN (Reason: nausea and vomiting) Qty: 30 0RF sertraline 100 mg tablet 100 mg PO QHS Patient Comments: TAKE 1 TABLET BY MOUTH EVERY DAY sertraline [Zoloft] 50 mg tablet 150 mg PO DAILY furosemide 40 mg tablet 40 mg PO DAILY Rx Instructions: take 1 tablet by mouth once daily Xifaxan 550 mg tablet 550 mg PO BID Rx Instructions: take 1 tablet by mouth twice a day folic acid 1 mg tablet 1 mg PO DAILY Qty: 90 3RF trazodone 50 mg tablet See Rx Instructions PO QHS PRN (Reason: sleep) Qty: 30 1RF Rx Instructions: May take 1/2 to 1 tablet nightly as needed scopolamine base 1 mg over 3 days patch 3 day 1 patch transdermal Q72H Qty: 10 2RF Primary Care Provider: Ita Goddard Referrals: Counseling,Center [Group of Physicians] - As soon as possible Ita Goddard MD [Primary Care Provider] - As Needed Activity Restrictions/Additional Instructions: Follow-up with the counseling center for your depression. Keep all of the wounds on your knees and left forearm clean and dry. Clean daily with soap and water. Apply antibiotic ointment. Follow-up with your doctor as needed.
[2023-02-24 21:41] LABS: Bedside Glucose 149 mg/dL (74-106)
== END 2023-02-24 21:32 | disposition home or self-care (01) ==
LOC: ED 21:09
PROVIDERS: Emergency Provider Emergency Medicine; PCP Internal Medicine; Visit Provider Emergency Medicine
DX: S51.812A Laceration without foreign body of left forearm, initial encounter (principal); X78.9XXA Intentional self-harm by unspecified sharp object, initial encounter; E11.9 Type 2 diabetes mellitus without complications; F32.A Depression, unspecified; Z87.891 Personal history of nicotine dependence; I10 Essential (primary) hypertension
CPT/HCPCS: 82962; 99282

== ENCOUNTER 2023-03-09 17:36 | Emergency (ER) | payer BC, SELFPAY ==
[2023-03-09 17:39] VITALS: BP 151/79; PULSE 95; RESP 18; TEMP 36.8; O2SAT 100; BMI 24.3
--- NOTE | 2023-03-09 20:38 | NURSING ---
[id number] and pt decided to leave,tired of waiting.
--- NOTE | 2023-03-09 21:09 | CM.ED ---
Social Work SW had previously received notification from [facility] regarding patient and possible probate case. Crisis had requested to be notified if patient at the hospital. SW spoke with Emy Merrill director of crisis regarding patient. Pt had a probate hearing which was dismissed. Court hearing initiated due to patient having medical conditions affecting his mental health and additionally signing himself out AMA on 02/23/2023. Pt had been discharged from a psych facility previously and he was deemed to have medical issues affecting his mental health with chronically elevated ammonia. Emy reports she no longer needs to assess patient and case was dismissed. However, patient now has a bilingual patient support caseworker from [facility], Shelly Feliciano who had advised patient to seek medical assistance due to ongoing confusion. Pt has mental health concerns as well as chronic medical conditions. Ongoing review of patient needs and assistance through [facility] with case management and also with the court system. Notify crisis if concerns arise with patient. Luana Balbuena DOUGH PUNCHER, PHARMACEUTICAL COMPOUNDING SUPERVISOR
== END 2023-03-09 19:00 | disposition left against medical advice (07) ==
LOC: ED 19:10
PROVIDERS: Emergency Provider Emergency Medicine; PCP Internal Medicine
DX: R41.0 Disorientation, unspecified (principal); Z53.21 Procedure and treatment not carried out due to patient leaving prior to being seen by health care provider

== ENCOUNTER 2023-03-09 21:48 | Emergency (ER) | payer BC, SELFPAY ==
[2023-03-09 21:49] VITALS: BP 133/78; PULSE 96; RESP 18; TEMP 36.8; O2SAT 100; BMI 23.9
[2023-03-09 22:45] LABS: Absolute Lymphocyte Count 0.85 X10^3/uL (0.83-4.51); Absolute Neutrophil Count 3.2 X10^3/uL (2.0-7.7); Basophil# 0.03 X10^3/uL; Basophil% 0.6 % (0-1); Eosinophil# 0.19 X10^3/uL; Hematocrit 27.2 % (40-54); Lymphocyte # 0.85 X10^3/ul (0.83-4.51); Mean Corp Hgb Conc 33.1 g/dL (32-36); Mean Corpuscular Volume 105.8 fL (80-94); Mean Platelet Vol. 10.2 fl (6.2-12.0); Monocyte% 10.6 % (0-10); NRBC Flagged by Analyzer 0 % (0-5); Neutrophil # 3.15 X10^3/uL (2.7-7.7); Neutrophil % 66.6 % (47-70); POSITIVE COUNT YES; Platelet Count 77 K/mm3 (150-450); RBC Distribution Width CV 15.9 % (11.6-14.6); RBC Distribution Width SD 61.8 fl (35.1-43.9); Red Blood Count 2.57 M/mm3 (4.6-6.2); White Blood Count 4.7 K/mm3 (4.4-11.0)
[2023-03-09 22:54] LABS: Differential Indicated SCAN CRITERIA MET
[2023-03-09 22:55] LABS: Platelet Estimate MOD DEC (ADEQ)
[2023-03-09 23:02] LABS: Anisocytosis 1+; Macrocytosis 1+
[2023-03-09 23:08] LABS: Anion Gap 5 (5-15); BUN 11 mg/dL (7-18); BUN/Creat Ratio 11.2 RATIO (10-20); Calcium,Total 7.7 mg/dL (8.5-10.1); Chloride 112 mmol/L (98-107); Creatinine, Serum 0.99 mg/dL (0.70-1.30); EST Glomerular Filtration Rate 86 mL/min (>60); Est Glom Filt Rate - Afr Amer 104 mL/min (>60); Estimated Creatinine Clearance 91.25 ml/min; Glucose 169 mg/dL (74-106); Potassium 3.6 mmol/L (3.5-5.1); Sodium Level 142 mmol/L (136-145)
--- NOTE | 2023-03-09 23:59 | EX.ED.DYSGE1 ---
HPI History of Present Illness Chief Complaint: Abn Labs Detail of Chief Complaint: Elevated ammonia level. History of alcoholic cirrhosis. Informant: patient Onset/Context/Timing Onset: Days Context: Gradual Onset Timing: Continuous Current Severity: Mild Maximum Severity: Mild Narrative Narrative: 47-year-old male history of alcoholic cirrhosis, hepatitis and diabetes. States he was hospitalized 2 weeks ago. Thinks that his ammonia level was elevated again. Says he is just not been on point. Denies any vomiting. He has chronic loose stools. Denies any fever. No head trauma. Prior similar symptoms: Yes Recent Illness/Hospitalization: Yes [facility] Medical History Alcoholic cirrhosis Alcoholic hepatitis Anxiety and depression Carrier of hemochromatosis HFE gene mutation Cirrhosis Diabetes mellitus type 2 in nonobese Former smoker Former tobacco use Gastric reflux Gout Hepatic encephalopathy History of alcohol abuse History of panic attacks HTN (hypertension) Hx of gout Seasonal allergies Sleep apnea Suicide attempt Trauma Home Medications folic acid 1 mg tablet 1 mg PO DAILY #90 tabs 05/02/22 [Rx Last Taken Unknown] trazodone 50 mg tablet See Rx Instructions PO QHS PRN sleep #30 tabs 06/27/22 [Rx Last Taken Unknown] pantoprazole 40 mg tablet,delayed release 40 mg PO DAILY GERD 12/21/22 [History Last Taken Unknown] aripiprazole 2 mg tablet 2 mg PO QHS PSYCH 01/05/23 [History Last Taken Unknown] promethazine 25 mg tablet 25 mg PO QHS PRN nausea and vomiting #30 tabs 01/05/23 [Rx Last Taken Unknown] scopolamine base 1 mg over 3 days transdermal patch 1 patch transdermal Q72H NAUSEA #10 ea 02/02/23 [Rx Last Taken Unknown] furosemide 40 mg tablet 40 mg PO DAILY WATER PILL 02/07/23 [History Last Taken 02/06/23] rifaximin 550 mg tablet (Xifaxan) 550 mg PO BID DEPRESSION 02/07/23 [History Last Taken 02/06/23] sertraline 100 mg tablet 100 mg PO QHS DEPRES 02/12/23 [History Last Taken Unknown] sertraline 50 mg tablet (Zoloft) 150 mg PO DAILY 02/12/23 [History Last Taken Unknown] thiamine HCl (vitamin B1) 100 mg tablet (Vitamin B-1) 200 mg (2 x 100 mg) PO BID VITAMIN #60 tabs 03/03/23 [Rx Last Taken Unknown] Allergy/AdvReac Type Severity Reaction Status Date / Time pioglitazone Allergy Mild liver Verified 03/09/23 21:52 damange Family History Other CVA (cerebral vascular accident) Cancer Cirrhosis Heart disease Hypertension Thyroid disorder Surgical History History of esophagogastroduodenoscopy (EGD) History of surgery 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 Chronic loose stools. Review of Systems ROS Unobtainable: Denies due to encephalopathy Constitutional Constitutional ED: Denies chills or fever(s) Eyes Eyes: Denies blurry vision ENT ENT ED: Denies ear pain Cardiovascular Cardiovascular: Denies chest pain Respiratory/Chest Respiratory/Chest: Denies cough Gastrointestinal Gastrointestinal: Reports diarrhea; Denies abdominal pain Genitourinary Genitourinary ED: Denies dysuria or hematuria Musculoskeletal Musculoskeletal: Denies arthralgias Integumentary Denies abscess Neurologic Neurologic: Denies headache(s) Psychiatric Psychiatric: Denies anxiety Endocrine Endocrinology: Denies cold intolerance Hematologic/Lymphatic Hematologic/Lymphatic: Reports none Allergic/Immunologic Allergic/Immunologic ED: Denies mouth swelling or tongue swelling EXAM Physical Exam Narrative Exam Narrative: Well-appearing middle-age male. Lying in bed. Vital signs stable afebrile. Pulse ox 100% on room air no signs of hypoxia. He is in no distress. HEENT exam unremarkable. Moist with membranes. Neck nontender. No lymphadenopathy. No meningismus. Lungs clear to auscultation bilaterally. Heart regular rhythm rate about 90 no murmur. Chest wall and ribs nontender. Abdomen soft nontender. No peritoneal signs. Moving all 4 extremities. 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 Dorsi plantarflexion intact. 1+ pitting edema both lower extremities which is chronic. Neurologically is awake. He is alert. He is answering questions. He is following commands. He knows he is at [facility]. He knows the month and year. He knows the president night states. He is speaking normally. He has good mentation. Const Vital Signs: 03/09/23 21:49 03/10/23 00:21 Temperature 98.3 F Temperature Source Temporal Pulse Rate 96 Respiratory Rate 18 Respiratory Effort Normal Non-Labored Respiratory Pattern Normal Blood Pressure 133/78 H Blood Pressure Mean 96 Pulse Ox 100 Oxygen Delivery Method Room Air Positive well nourished and well developed; Negative for obese, cachectic, contractures or unkempt General Appearance ED: well developed and NAD; Negative for unkempt, cachectic, contractures, cyanotic, diaphoretic or pallor Nutritional Appearance: Negative for cachectic or obese HEENT Reports moist mucous membranes; Denies dry mucous membranes Negative for trauma or tenderness Mouth ED: No dry mucous membranes Mouth: No dry mucous membranes Eyes PERRL and EOMs intact bilaterally General Eye ED: Negative for pale conjunctiva Neck no lymphadenopathy, supple and no JVD General: Negative for tenderness Lymph Lymphatic: Negative for other Chest Wall inspection of chest normal and palpation of chest normal Chest: Negative for other Resp normal respiratory effort and clear to auscultation bilaterally Effort and Inspection: Negative for retractions Auscultation: Negative for rales, rhonchi or wheezes Cardio regular rate, regular rhythm, S1 normal heart sound, S2 normal heart sound and no murmurs Rate: Negative for bradycardia or tachycardic Rhythm: Negative for abnormal rhythm GI normal to inspection, nondistended, normoactive bowel sounds, non-tender, non-distended and no masses Inspection: Negative for abdominal distention Auscultation: normoactive bowel sounds Palpation: soft; Negative for tender or guarding Back/Spine no CVA tenderness General Back: Negative for CVA tenderness Cervical Spine: Negative for cervical spine tenderness Thoracic Spine / Upper Back: Negative for thoracic spinal tenderness Lumbar Spine / Lower Back: Negative for lumbar spinal tenderness Extremity normal to inspection Extremity Narrative: Chronic bilateral lower extremity 1+ pitting edema. General Extremety ED: Yes edema; Negative for tenderness General Extremity: edema Neuro oriented x3 and CN's II-XII intact bilaterally Neuro Narrative: Patient knows day, month, year and where he is at. He notes. Denies states. Sensorium / Orientation: alert; Negative for orientation impaired, lethargic or stuporous Motor Exam: strength 5/5 throughout Psych mental status grossly normal Appearance: Negative for unkempt Attitude: No agitated Mood & Affect: Negative for depressed, anxious or tearful Skin no rashes or lesions noted and no wounds General Skin Exam: elasticity normal; Negative for jaundice or pallor Lesions: No lesion noted Rashes: No rashes noted Trauma: Negative for abrasion Wounds: Negative for wounds noted MDM MDM MDM Narrative Medical decision making narrative: 47-year-old with not feeling his baseline. He has a history of chronic alcoholic cirrhosis with elevated ammonia levels. He had a recent admission 2 weeks ago. Discussed patient's case with the hospitalist though she and I are comfortable with him being discharged home to continue his current medications. Patient is comfortable with that plan also. Return if he is feeling worse. History & Record Review Discussion w/independent historian: Patient Lab Data Attestation: I reviewed the patient's lab results. Lab results narrative: CBC shows a white count of 4.7. H&H 9.0 and 27.2 which is his baseline anemia. Platelets of 77,000 again chronic electrolytes show a gap of 5. Normal BUN of 11 creatinine 0.9. Glucose 169. His ammonia level is elevated at 106. However he has good mentation.. Labs: Laboratory Results - last 24 hr 03/09/23 22:30 WBC 4.7 RBC 2.57 L Hgb 9.0 L Hct 27.2 L MCV 105.8 H MCH 35.0 H MCHC 33.1 RDW Std Deviation 61.8 H RDW Coeff of Kaela 15.9 H Plt Count 77 L MPV 10.2 Immature Gran % (Auto) 0.200 Neut % (Auto) 66.6 Lymph % (Auto) 18.0 L [place] % (Auto) 10.6 H Eos % (Auto) 4.0 Baso % (Auto) 0.6 Absolute Neuts (auto) 3.2 Absolute Lymphs (auto) 0.85 Promyelocytes % 0.010 H Nucleated RBC % 0 Differential Comment SEE COMMENT Toxic Granulation 0.010 Platelet Estimate MOD DEC Anisocytosis 1+ Macrocytosis 1+ Sodium 142 Potassium 3.6 Chloride 112 H Carbon Dioxide 25.0 Anion Gap 5 BUN 11 Creatinine 0.99 Estim Creat Clear Calc 91.25 Est GFR (MDRD) Af Amer 104 Est GFR (MDRD) Non-Af 86 BUN/Creatinine Ratio 11.2 Glucose 169 H Calcium 7.7 L Ammonia 106.0 H Discharge Plan Triage Chief Complaint: Abn Labs ED Provider: Carlos Lawrence Dx/Rx/DC Orders Clinical Impression: Hyperammonemia, History of cirrhosis, Chronic anemia, History of diabetes mellitus Prescriptions: No Action pantoprazole 40 mg tablet,delayed release (DR/EC) 40 mg PO DAILY Rx Instructions: take 1 tablet by mouth once daily aripiprazole 2 mg tablet 2 mg PO QHS Patient Comments: take 1 tablet by mouth once daily promethazine 25 mg tablet 25 mg PO QHS PRN (Reason: nausea and vomiting) Qty: 30 0RF sertraline 100 mg tablet 100 mg PO QHS Patient Comments: TAKE 1 TABLET BY MOUTH EVERY DAY sertraline [Zoloft] 50 mg tablet 150 mg PO DAILY furosemide 40 mg tablet 40 mg PO DAILY Rx Instructions: take 1 tablet by mouth once daily Xifaxan 550 mg tablet 550 mg PO BID Rx Instructions: take 1 tablet by mouth twice a day folic acid 1 mg tablet 1 mg PO DAILY Qty: 90 3RF trazodone 50 mg tablet See Rx Instructions PO QHS PRN (Reason: sleep) Qty: 30 1RF Rx Instructions: May take 1/2 to 1 tablet nightly as needed scopolamine base 1 mg over 3 days patch 3 day 1 patch transdermal Q72H Qty: 10 2RF thiamine HCl (vitamin B1) [Vitamin B-1] 100 mg tablet 200 mg PO BID Qty: 60 0RF Primary Care Provider: Ita Goddard Referrals: Ita Goddard MD [Primary Care Provider] - As soon as possible Activity Restrictions/Additional Instructions: Make sure to follow-up with your primary care physician next several days. Your ammonia levels elevated at 106 but you are acting normally you do not need to be admitted to the hospital. Make sure you are taking your normal medications especially your medication to control your ammonia level. Disposition Disposition: Home, Self Care
[2023-03-10 00:39] VITALS: BP 130/60; PULSE 80; RESP 18; O2SAT 96
== END 2023-03-10 00:40 | disposition home or self-care (01) ==
PROVIDERS: Emergency Provider Emergency Medicine; PCP Internal Medicine; Referring Provider Emergency Medicine; Visit Provider Emergency Medicine
DX: E72.20 Disorder of urea cycle metabolism, unspecified (principal); E11.9 Type 2 diabetes mellitus without complications; I10 Essential (primary) hypertension; R19.7 Diarrhea, unspecified; Z87.891 Personal history of nicotine dependence; D64.9 Anemia, unspecified; Z87.19 Personal history of other diseases of the digestive system
CPT/HCPCS: 80048; 82140; 85025; 99284; A4216

== ENCOUNTER 2023-03-12 20:21 | Emergency (ER) | payer BC, SELFPAY ==
[2023-03-12 20:21] VITALS: BP 150/86; PULSE 99; RESP 16; TEMP 36.6; O2SAT 100; BMI 23.9
--- NOTE | 2023-03-12 20:40 | ED.RN ---
Patient states bleeding is under control and he feels more relaxed, decides he is going to ho home. LWBS 2036. Advised to return if needed.
== END 2023-03-12 20:37 | disposition left against medical advice (07) ==
LOC: ED 20:39
PROVIDERS: Emergency Provider Emergency Medicine; PCP Internal Medicine; Visit Provider Emergency Medicine
DX: Z53.21 Procedure and treatment not carried out due to patient leaving prior to being seen by health care provider (principal)

== ENCOUNTER 2023-03-22 07:37 | Outpatient (RCR) | payer BC, SELFPAY ==
[2023-03-22 09:15] LABS: International Normalized Ratio 1.6; Prothrombin Time (Protime)PT. 18.9 SECONDS (11.7-14.9)
[2023-03-22 09:49] LABS: ALB/GLOB Ratio 0.7 RATIO (0.9-2.4); AST(SGOT) 53 U/L (15-37); Alanine Aminotransfer ALT/SGPT 39 U/L (16-61); Albumin, Serum 2.5 g/dL (3.2-5.0); Alkaline Phosphatase 272 U/L (45-117); Anion Gap 6 (5-15); BUN 10 mg/dL (7-18); BUN/Creat Ratio 13.9 RATIO (10-20); Chloride 111 mmol/L (98-107); Creatinine, Serum 0.72 mg/dL (0.70-1.30); EST Glomerular Filtration Rate 124 mL/min (>60); Est Glom Filt Rate - Afr Amer 150 mL/min (>60); Globulin 3.4 g/dL (2.2-4.2); Glucose 108 mg/dL (74-106); Potassium 3.8 mmol/L (3.5-5.1); Protein, Total 5.9 g/dL (6.4-8.2); Sodium Level 142 mmol/L (136-145)
== END 2023-03-22 18:00 | disposition home or self-care (01) ==
LOC: LAB 07:37
PROVIDERS: PCP Internal Medicine; Referring Provider Internal Medicine Gastroenterology; Visit Provider Internal Medicine Gastroenterology
DX: K74.60 Unspecified cirrhosis of liver (principal)
CPT/HCPCS: 36415; 80053; 85610

== ENCOUNTER 2023-03-24 00:10 | Emergency (ER) | payer MEDICAID, SELFPAY ==
[2023-03-24 00:12] VITALS: BP 123/72; PULSE 85; RESP 18; TEMP 36.8; O2SAT 99; BMI 25.6
--- NOTE | 2023-03-24 00:48 | EDS_ITS ---
HPI HPI - Psych History of Present Illness Chief Complaint: Suicidal Informant: patient Narrative Narrative: Patient brought by police after he called crisis, because he needed someone to talk to. He cut himself in the left wrist today, he states it was not a suicide attempt or gesture, he was cutting to relieve stress. He has a lot going on in his life and it is very stressful, he has alcoholic cirrhosis he has extremely poor financial situation, his car was impounded recently, etc. He states he has court tomorrow and denies any thoughts of suicide, he states he was simply doing this to relieve stress. This was similar event to when he was here a month ago under similar circumstances. He did not call crisis to tell them he was suicidal he just was stressed and needed someone to talk to and it was late. [facility] Medical History Alcoholic cirrhosis Alcoholic hepatitis Anxiety and depression Carrier of hemochromatosis HFE gene mutation Cirrhosis Diabetes mellitus type 2 in nonobese Former smoker Former tobacco use Gastric reflux Gout Hepatic encephalopathy History of alcohol abuse History of panic attacks HTN (hypertension) Hx of gout Seasonal allergies Sleep apnea Suicide attempt Trauma Home Medications folic acid 1 mg tablet 1 mg PO DAILY #90 tabs 05/02/22 [Rx Last Taken Unknown] trazodone 50 mg tablet See Rx Instructions PO QHS PRN sleep #30 tabs 06/27/22 [Rx Last Taken Unknown] pantoprazole 40 mg tablet,delayed release 40 mg PO DAILY GERD 12/21/22 [History Last Taken Unknown] aripiprazole 2 mg tablet 2 mg PO QHS PSYCH 01/05/23 [History Last Taken Unknown] promethazine 25 mg tablet 25 mg PO QHS PRN nausea and vomiting #30 tabs 01/05/23 [Rx Last Taken Unknown] scopolamine base 1 mg over 3 days transdermal patch 1 patch transdermal Q72H NAUSEA #10 ea 02/02/23 [Rx Last Taken Unknown] furosemide 40 mg tablet 40 mg PO DAILY WATER PILL 02/07/23 [History Last Taken 02/06/23] rifaximin 550 mg tablet (Xifaxan) 550 mg PO BID DEPRESSION 02/07/23 [History Last Taken 02/06/23] sertraline 100 mg tablet 100 mg PO QHS DEPRES 02/12/23 [History Last Taken Unknown] sertraline 50 mg tablet (Zoloft) 150 mg PO DAILY 02/12/23 [History Last Taken Unknown] thiamine HCl (vitamin B1) 100 mg tablet (Vitamin B-1) 200 mg (2 x 100 mg) PO BID VITAMIN #60 tabs 03/03/23 [Rx Last Taken Unknown] Allergy/AdvReac Type Severity Reaction Status Date / Time pioglitazone Allergy Mild liver Verified 03/24/23 00:15 damange Family History Other CVA (cerebral vascular accident) Cancer Cirrhosis Heart disease Hypertension Thyroid disorder Surgical History History of esophagogastroduodenoscopy (EGD) History of surgery 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 Status: Former smoker alcohol intake: former substance use type: does not use what type of physical activity do you participate in: other frequency: 1-2 times per week ROS ROS ED Musculoskeletal Musculoskeletal: Denies back pain or neck pain Integumentary Reports Abrasions Psychiatric Psychiatric: Reports anxiety, depression and suicidal thoughts; Denies hallucinations or suicidal ideation EXAM Physical Exam Const Vital Signs: 03/24/23 00:12 Temperature 98.3 F Temperature Source Temporal Pulse Rate 85 Respiratory Rate 18 Blood Pressure 123/72 H Blood Pressure Mean 89 Pulse Ox 99 Oxygen Delivery Method Room Air Positive well nourished and well developed General Appearance ED: well developed and NAD HEENT Reports moist mucous membranes normocephalic and atraumatic Eyes PERRL and EOMs intact bilaterally General Eye ED: Negative for scleral icterus Extremity Extremity Narrative: Full range of motion throughout all joints, normal gait no issues ambulating Neuro oriented x3, CN's II-XII intact bilaterally and no sensory deficits noted Pepe Coma Scale: document GCS findings Spontaneous Obeys Commands Oriented 15 Motor Exam: strength 5/5 throughout Psych mental status grossly normal Psych Narrative: Depressed affect, but logical goal-directed sequential thoughts. Denies suicidality homicidality, is not delusional or acting on any hallucinations obje ctively. Activity / Motor Behavior: appropriate eye contact Speech: normal speech Skin Skin Narrative: Superficial abrasions of the volar left wrist with no active bleeding. There is an old self-inflicted wound to the dorsum of the left distal forearm a little proximal to the wrist, it is slightly open he states it is a month old, there is no active bleeding but there is some scabbing. MDM MDM MDM Narrative Medical decision making narrative: I had nursing cleanse these wounds, and place Steri-Strips across the dorsal one that occurred a month ago. The one he did today is simply an abrasion does not require any repair. Patient presents after social work is gone for the day, and I do not think he needs a formal crisis evaluation right now. He does have a counselor to follow-up with, and is instructed to do so I do not think he needs to be admitted and he is in agreement. Discharge Plan Triage Chief Complaint: Suicidal ED Provider: Tao Velasquez Dx/Rx/DC Orders Clinical Impression: Depression, Injury, self-inflicted, Abrasion of left wrist Instructions: ED Depression Prescriptions: No Action pantoprazole 40 mg tablet,delayed release (DR/EC) 40 mg PO DAILY Rx Instructions: take 1 tablet by mouth once daily aripiprazole 2 mg tablet 2 mg PO QHS Patient Comments: take 1 tablet by mouth once daily promethazine 25 mg tablet 25 mg PO QHS PRN (Reason: nausea and vomiting) Qty: 30 0RF sertraline 100 mg tablet 100 mg PO QHS Patient Comments: TAKE 1 TABLET BY MOUTH EVERY DAY sertraline [Zoloft] 50 mg tablet 150 mg PO DAILY furosemide 40 mg tablet 40 mg PO DAILY Rx Instructions: take 1 tablet by mouth once daily Xifaxan 550 mg tablet 550 mg PO BID Rx Instructions: take 1 tablet by mouth twice a day folic acid 1 mg tablet 1 mg PO DAILY Qty: 90 3RF trazodone 50 mg tablet See Rx Instructions PO QHS PRN (Reason: sleep) Qty: 30 1RF Rx Instructions: May take 1/2 to 1 tablet nightly as needed scopolamine base 1 mg over 3 days patch 3 day 1 patch transdermal Q72H Qty: 10 2RF thiamine HCl (vitamin B1) [Vitamin B-1] 100 mg tablet 200 mg PO BID Qty: 60 0RF Primary Care Provider: Ita Goddard Referrals: Counseling,Center [Group of Physicians] - As soon as possible Ita Goddard MD [Primary Care Provider] - Disposition Disposition: Home, Self Care
== END 2023-03-24 01:56 | disposition home or self-care (01) ==
PROVIDERS: Emergency Provider Emergency Medicine; PCP Internal Medicine; Visit Provider Emergency Medicine
DX: S60.812A Abrasion of left wrist, initial encounter (principal); R45.88 Nonsuicidal self-harm; E11.9 Type 2 diabetes mellitus without complications; Z87.891 Personal history of nicotine dependence; F32.A Depression, unspecified; I10 Essential (primary) hypertension; K21.9 Gastro-esophageal reflux disease without esophagitis; F41.8 Other specified anxiety disorders; Z79.899 Other long term (current) drug therapy; W26.9XXA Contact with unspecified sharp object(s), initial encounter
CPT/HCPCS: 99283

== ENCOUNTER 2023-03-30 00:06 | Emergency (ER) | payer MEDICAID, SELFPAY ==
[2023-03-30 00:07] VITALS: BP 120/74; PULSE 107; RESP 20; TEMP 36.2; O2SAT 98; BMI 26.4
--- NOTE | 2023-03-30 00:29 | EDS_ITS ---
HPI History of Present Illness HPI Narrative: Self-inflicted left forearm lacerations. Is to relieve stress. Denies being suicidal or homicidal. Is already talked to [facility]. Tetanus up-to-date. He lacerated his forearm about an hour prior to arrival. Chief Complaint: Laceration Informant: patient Occured/Mechanism Comment: Self-inflicted left forearm laceration. Onset/Context/Timing Context: Sudden Onset Current Severity: Mild Maximum Severity: Mild Narrative Narrative: 48-year-old male extensive past medical history of cirrhosis, hepatitis, diabetes, anxiety, mental health illness and anemia. Rohan was feeling anxious and caused 2 superficial lacerations of his left forearm about an hour prior to arrival. He denies being homicidal or suicidal. Does not feel he needs to be admitted. He was speaking to crisis on the phone after it occurred and they want him to have this evaluated. Tetanus was less than 3 years ago. Denies any other complaints. Tetanus Immunization: <5 years Prior similar symptoms: Yes Recent Illness/Hospitalization: No PFSH PFSH Medical History Alcoholic cirrhosis Alcoholic hepatitis Anxiety and depression Carrier of hemochromatosis HFE gene mutation Cirrhosis Diabetes mellitus type 2 in nonobese Former smoker Former tobacco use Gastric reflux Gout Hepatic encephalopathy History of alcohol abuse History of panic attacks HTN (hypertension) Hx of gout Seasonal allergies Sleep apnea Suicide attempt Trauma Home Medications folic acid 1 mg tablet 1 mg PO DAILY #90 tabs 05/02/22 [Rx Last Taken Unknown] trazodone 50 mg tablet See Rx Instructions PO QHS PRN sleep #30 tabs 06/27/22 [Rx Last Taken Unknown] pantoprazole 40 mg tablet,delayed release 40 mg PO DAILY GERD 12/21/22 [History Last Taken Unknown] aripiprazole 2 mg tablet 2 mg PO QHS PSYCH 01/05/23 [History Last Taken Unknown] promethazine 25 mg tablet 25 mg PO QHS PRN nausea and vomiting #30 tabs 01/05/23 [Rx Last Taken Unknown] scopolamine base 1 mg over 3 days transdermal patch 1 patch transdermal Q72H NAUSEA #10 ea 02/02/23 [Rx Last Taken Unknown] furosemide 40 mg tablet 40 mg PO DAILY WATER PILL 02/07/23 [History Last Taken 02/06/23] rifaximin 550 mg tablet (Xifaxan) 550 mg PO BID DEPRESSION 02/07/23 [History Last Taken 02/06/23] sertraline 100 mg tablet 100 mg PO QHS DEPRES 02/12/23 [History Last Taken Unknown] sertraline 50 mg tablet (Zoloft) 150 mg PO DAILY 02/12/23 [History Last Taken Unknown] thiamine HCl (vitamin B1) 100 mg tablet (Vitamin B-1) 200 mg (2 x 100 mg) PO BID VITAMIN #60 tabs 03/03/23 [Rx Last Taken Unknown] Allergy/AdvReac Type Severity Reaction Status Date / Time pioglitazone Allergy Mild liver Verified 03/30/23 00:07 damange Family History Other CVA (cerebral vascular accident) Cancer Cirrhosis Heart disease Hypertension Thyroid disorder Surgical History History of esophagogastroduodenoscopy (EGD) History of surgery 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 Review of Systems ROS Unobtainable: Denies due to encephalopathy Constitutional Constitutional ED: Denies chills or fever(s) Eyes Eyes: Denies blurry vision ENT ENT ED: Denies ear pain Cardiovascular Cardiovascular: Denies chest pain Respiratory/Chest Respiratory/Chest: Denies cough or dyspnea Gastrointestinal Gastrointestinal: Denies abdominal pain Genitourinary Genitourinary ED: Denies dysuria or hematuria Musculoskeletal Musculoskeletal: Denies arthralgias Integumentary Denies abscess or Abrasions Neurologic Neurologic: Denies headache(s) Psychiatric Psychiatric: Reports anxiety; Denies depression Endocrine Endocrinology: Denies polydipsia Hematologic/Lymphatic Hematologic/Lymphatic: Denies easy bleeding Allergic/Immunologic Allergic/Immunologic ED: Denies mouth swelling or tongue swelling EXAM Physical Exam Narrative Exam Narrative: Well-appearing middle-age male vital signs stable afebrile. Does not look septic toxic or any distress. No one else present in room. H EENT exam unremarkable atraumatic. Moist with membranes. Posterior pharynx unremarkable. Neck nontender no trauma. Lungs clear. Heart regular rhythm rate about 100 no murmur. Chest wall and ribs nontender. Abdomen soft nontender. No trauma. Back nontender. Moving all 4 extremities. Neurovascular intact. The dorsum of his left mid forearm has a very superficial small laceration that will be cleaned and dressed another one is about 1 to 2 inches in length but is superficial. Will be cleaned. Dermabond and Steri-Strips. There is minor oozing of blood. No pulsatile bleeding. No foreign body or infection. 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 Neurologically is awake and alert. Answering questions following commands. He does make good eye contact. He denies being suicidal. Const Vital Signs: 03/30/23 00:07 Temperature 97.1 F L Temperature Source Temporal Pulse Rate 107 H Respiratory Rate 20 H Blood Pressure 120/74 Blood Pressure Mean 89 Pulse Ox 98 Oxygen Delivery Method Room Air Positive well nourished and well developed; Negative for cachectic, contractures or unkempt General Appearance ED: well developed and NAD; Negative for unkempt, cachectic or contractures Nutritional Appearance: Negative for cachectic HEENT Reports moist mucous membranes normocephalic and atraumatic; Negative for trauma or tenderness Eyes PERRL Neck full ROM and supple Thyroid: Negative for tender Lymph Lymphatic: Negative for other Chest Wall inspection of chest normal and palpation of chest normal Chest: Negative for other Resp normal respiratory effort, no retractions and clear to auscultation bilaterally Effort and Inspection: Negative for pain with movement Auscultation: Negative for rales, rhonchi or wheezes Cardio regular rate, regular rhythm, S1 normal heart sound, S2 normal heart sound and no murmurs Rhythm: Negative for abnormal rhythm GI non-tender, non-distended and no masses Inspection: Negative for abdominal distention Auscultation: normoactive bowel sounds Palpation: soft; Negative for tender or guarding Bladder / Kidney Exam: No other Back/Spine no CVA tenderness General Back: Negative for CVA tenderness Cervical Spine: Negative for cervical spine tenderness Thoracic Spine / Upper Back: Negative for thoracic spinal tenderness Lumbar Spine / Lower Back: Negative for lumbar spinal tenderness Extremity full ROM; Negative for normal to inspection Extremity Narrative: Superficial lacerations x2 left forearm. Minimal oozing. No tendon involvement no joint, bone or muscle involvement. Left hand neurovascular intact. The larger wound will be cleaned. Dermabond and Steri-Stripped and dressed the other 1 or just be cleaned and dressed. General Extremety ED: Negative for cyanosis or edema General Extremity: Negative for cyanosis or edema Neuro oriented x3, CN's II-XII intact bilaterally and moves all extremities Sensorium / Orientation: alert, oriented to person, oriented to place and oriented to time Motor Exam: strength 5/5 throughout Psych mental status grossly normal Appearance: Negative for unkempt Speech: No other Mood & Affect: Negative for anxious Skin No no wounds Skin Narrative: Left forearm superficial lacerations x2. Lesions: no lesions Rashes: no rashes Trauma: laceration; Negative for abrasion MDM MDM MDM Narrative Medical decision making narrative: 48-year-old male has self-inflicted lacerations to his left forearm. They are minor. Will be cleaned and dressed. The other one of the Dermabond cleaned and dressed. Steri-Strip. Patient denies being suicidal. He is forthcoming with information and makes eye contact. He does not want nor I feel he needs a crisis evaluation at this time. I also placed a call to crisis personnel on-call. They will follow up the patient later this morning to ensure that he is doing okay. History & Record Review Discussion w/independent historian: Patient Procedures Lacerations Left forearm laceration repair:: Length: 1.5 in Depth: Sub Q Shape: Linear Prep: [place] Comment: Left forearm laceration 1.5 inches. Clean. Wash. Dermabond. Steri-Strips. Discharge Plan Triage Chief Complaint: Laceration ED Provider: Carlos Lawrence Dx/Rx/DC Orders Clinical Impression: Anxiety, Injury, self-inflicted, History of cirrhosis, History of anemia, History of diabetes mellitus, Laceration of forearm Instructions: ED Laceration Extremity Prescriptions: No Action pantoprazole 40 mg tablet,delayed release (DR/EC) 40 mg PO DAILY Rx Instructions: take 1 tablet by mouth once daily aripiprazole 2 mg tablet 2 mg PO QHS Patient Comments: take 1 tablet by mouth once daily promethazine 25 mg tablet 25 mg PO QHS PRN (Reason: nausea and vomiting) Qty: 30 0RF sertraline 100 mg tablet 100 mg PO QHS Patient Comments: TAKE 1 TABLET BY MOUTH EVERY DAY sertraline [Zoloft] 50 mg tablet 150 mg PO DAILY furosemide 40 mg tablet 40 mg PO DAILY Rx Instructions: take 1 tablet by mouth once daily Xifaxan 550 mg tablet 550 mg PO BID Rx Instructions: take 1 tablet by mouth twice a day folic acid 1 mg tablet 1 mg PO DAILY Qty: 90 3RF trazodone 50 mg tablet See Rx Instructions PO QHS PRN (Reason: sleep) Qty: 30 1RF Rx Instructions: May take 1/2 to 1 tablet nightly as needed scopolamine base 1 mg over 3 days patch 3 day 1 patch transdermal Q72H Qty: 10 2RF thiamine HCl (vitamin B1) [Vitamin B-1] 100 mg tablet 200 mg PO BID Qty: 60 0RF Primary Care Provider: Ita Goddard Referrals: Ita Goddard MD [Primary Care Provider] - As Needed Activity Restrictions/Additional Instructions: Watch for any signs of infection. You can pull the Steri-Strips off in 1 week. If you see redness, swelling, streaks, fever or pus needs to be reevaluated. If you are feeling worse, more depressed or suicidal you need to return and/or follow-up with crisis. Disposition Disposition: Home, Self Care Discharge Date/Time: 03/30/23 00:59
== END 2023-03-30 00:59 | disposition home or self-care (01) ==
LOC: ED 00:55
PROVIDERS: Emergency Provider Emergency Medicine; PCP Internal Medicine; Visit Provider Emergency Medicine
DX: S51.812A Laceration without foreign body of left forearm, initial encounter (principal); K70.30 Alcoholic cirrhosis of liver without ascites; X78.9XXA Intentional self-harm by unspecified sharp object, initial encounter; E11.9 Type 2 diabetes mellitus without complications; Z87.891 Personal history of nicotine dependence; I10 Essential (primary) hypertension; F41.9 Anxiety disorder, unspecified; Z86.2 Personal history of diseases of the blood and blood-forming organs and certain disorders involving the immune mechanism
CPT/HCPCS: 12002; 99284

== ENCOUNTER 2023-04-02 06:28 | Emergency (ER) | payer MEDICAID, SELFPAY ==
[2023-04-02 06:29] VITALS: BP 125/80; PULSE 72; RESP 14; TEMP 35.8; O2SAT 100; BMI 31.4
--- NOTE | 2023-04-02 06:57 | EDS_ITS ---
HPI History of Present Illness Chief Complaint: Wound Check Informant: patient Narrative Narrative: Patient is a 48-year-old male with past medical history of diabetes and cirrhosis who presents with a retained foreign object in his left nostril. Patient states he pierced his own nose yesterday in the afternoon. He states that he was able to go about his normal daily activities and felt that the piercing was stable. He states he went to bed and then awoke with the nasal piercing falling out but was unable to remove the backing within his left nostril. He denies difficulty breathing or swallowing but with the retained foreign body presents for evaluation. [facility] Medical History Alcoholic cirrhosis Alcoholic hepatitis Anxiety and depression Carrier of hemochromatosis HFE gene mutation Cirrhosis Diabetes mellitus type 2 in nonobese Former smoker Former tobacco use Gastric reflux Gout Hepatic encephalopathy History of alcohol abuse History of panic attacks HTN (hypertension) Hx of gout Seasonal allergies Sleep apnea Suicide attempt Trauma Home Medications folic acid 1 mg tablet 1 mg PO DAILY #90 tabs 05/02/22 [Rx Last Taken Unknown] trazodone 50 mg tablet See Rx Instructions PO QHS PRN sleep #30 tabs 06/27/22 [Rx Last Taken Unknown] pantoprazole 40 mg tablet,delayed release 40 mg PO DAILY GERD 12/21/22 [History Last Taken Unknown] aripiprazole 2 mg tablet 2 mg PO QHS PSYCH 01/05/23 [History Last Taken Unknown] promethazine 25 mg tablet 25 mg PO QHS PRN nausea and vomiting #30 tabs 01/05/23 [Rx Last Taken Unknown] scopolamine base 1 mg over 3 days transdermal patch 1 patch transdermal Q72H NAUSEA #10 ea 02/02/23 [Rx Last Taken Unknown] furosemide 40 mg tablet 40 mg PO DAILY WATER PILL 02/07/23 [History Last Taken 02/06/23] rifaximin 550 mg tablet (Xifaxan) 550 mg PO BID DEPRESSION 02/07/23 [History Last Taken 02/06/23] sertraline 100 mg tablet 100 mg PO QHS DEPRES 02/12/23 [History Last Taken Unknown] sertraline 50 mg tablet (Zoloft) 150 mg PO DAILY 02/12/23 [History Last Taken Unknown] thiamine HCl (vitamin B1) 100 mg tablet (Vitamin B-1) 200 mg (2 x 100 mg) PO BID VITAMIN #60 tabs 03/03/23 [Rx Last Taken Unknown] Allergy/AdvReac Type Severity Reaction Status Date / Time pioglitazone Allergy Mild liver Verified 03/30/23 00:07 nahomi Family History Other CVA (cerebral vascular accident) Cancer Cirrhosis Heart disease Hypertension Thyroid disorder Surgical History History of esophagogastroduodenoscopy (EGD) History of surgery 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 Status: Current every day smoker tobacco type: cigarettes and pipe alcohol intake: former substance use type: does not use what type of physical activity do you participate in: other frequency: 1-2 times per week ROS ROS ED Constitutional Constitutional ED: Denies chills or fever(s) ENT ENT ED: Reports other Details: Positive nasal bleeding and retained foreign object ; Denies sore throat Cardiovascular Cardiovascular: Denies chest pain Respiratory/Chest Respiratory/Chest: Denies cough or dyspnea Gastrointestinal Gastrointestinal: Denies abdominal pain, diarrhea, nausea or vomiting Genitourinary Genitourinary ED: Denies dysuria Musculoskeletal Musculoskeletal: Denies myalgias Integumentary Denies rash Neurologic Neurologic: Denies headache(s) Hematologic/Lymphatic Hematologic/Lymphatic: Denies easy bleeding or easy bruising EXAM Physical Exam Const Vital Signs: 04/02/23 06:29 Temperature 96.5 F L Temperature Source Temporal Pulse Rate 72 Respiratory Rate 14 Blood Pressure 125/80 H Blood Pressure Mean 95 Pulse Ox 100 Oxygen Delivery Method Room Air Positive well nourished and well developed General Appearance ED: well developed HEENT Reports moist mucous membranes HEENT Narrative: Right nostril is patent without signs of infection or bleeding. There is a foreign object present in the anterior left nostril there is faint use of blood but no secondary changes to suggest infection. Posterior pharynx shows no signs of infection and here is no oral lesions airway edema or compromise Eyes PERRL and EOMs intact bilaterally Neck supple Resp normal respiratory effort and clear to auscultation bilaterally Cardio regular rate and regular rhythm Extremity normal to inspection Neuro oriented x3 and CN's II-XII intact bilaterally Sensorium / Orientation: alert Psych mental status grossly normal Skin no rashes or lesions noted MDM MDM MDM Narrative Medical decision making narrative: Patient presented to the ER with stable vitals and no signs of respiratory distress or compromise. His history and exam showed a retained foreign object in the left nostril without signs of septal perforation or infection. Therefore I felt no need for imaging or laboratory studies. Forceps were used to physically grab the foreign object in the left nostril and the foreign object was removed in 1 complete piece. There was minimal ooze of blood from the procedure without acute anterior epistaxis present and no signs of septal perforation or secondary infection once the foreign object was removed. Therefore there is no need for further work-up and patient is otherwise safe for discharge History & Record Review Discussion w/independent historian: Patient Discharge Plan Triage Chief Complaint: Wound Check ED Provider: Min Butt Dx/Rx/DC Orders Clinical Impression: Foreign body in nasal sinus, initial encounter, Diabetes mellitus type 2 in nonobese, Cirrhosis Instructions: ED NASAL FOREIGN BODY Prescriptions: No Action pantoprazole 40 mg tablet,delayed release (DR/EC) 40 mg PO DAILY Rx Instructions: take 1 tablet by mouth once daily aripiprazole 2 mg tablet 2 mg PO QHS Patient Comments: take 1 tablet by mouth once daily promethazine 25 mg tablet 25 mg PO QHS PRN (Reason: nausea and vomiting) Qty: 30 0RF sertraline 100 mg tablet 100 mg PO QHS Patient Comments: TAKE 1 TABLET BY MOUTH EVERY DAY sertraline [Zoloft] 50 mg tablet 150 mg PO DAILY furosemide 40 mg tablet 40 mg PO DAILY Rx Instructions: take 1 tablet by mouth once daily Xifaxan 550 mg tablet 550 mg PO BID Rx Instructions: take 1 tablet by mouth twice a day folic acid 1 mg tablet 1 mg PO DAILY Qty: 90 3RF trazodone 50 mg tablet See Rx Instructions PO QHS PRN (Reason: sleep) Qty: 30 1RF Rx Instructions: May take 1/2 to 1 tablet nightly as needed scopolamine base 1 mg over 3 days patch 3 day 1 patch transdermal Q72H Qty: 10 2RF thiamine HCl (vitamin B1) [Vitamin B-1] 100 mg tablet 200 mg PO BID Qty: 60 0RF Primary Care Provider: Ita Goddard Referrals: Ita Goddard MD [Primary Care Provider] - Activity Restrictions/Additional Instructions: The nasal foreign body was removed in 1 complete piece. You may have some irritation and bleeding from the procedure which will resolve on its own. If you have any further concerns please return to the ER for repeat evaluation Disposition Disposition: Home, Self Care Discharge Date/Time: 04/02/23 07:12
== END 2023-04-02 07:12 | disposition home or self-care (01) ==
PROVIDERS: Emergency Provider Emergency Medicine; PCP Internal Medicine; Visit Provider Emergency Medicine
DX: T17.1XXA Foreign body in nostril, initial encounter (principal); K74.60 Unspecified cirrhosis of liver; E11.9 Type 2 diabetes mellitus without complications; F17.210 Nicotine dependence, cigarettes, uncomplicated; I10 Essential (primary) hypertension; F17.290 Nicotine dependence, other tobacco product, uncomplicated; W45.8XXA Other foreign body or object entering through skin, initial encounter
CPT/HCPCS: 99282

== ENCOUNTER 2023-04-07 14:01 | Emergency (ER) | payer MEDICAID, SELFPAY ==
[2023-04-07 14:06] VITALS: BP 162/80; PULSE 82; RESP 18; TEMP 36.9; O2SAT 100; BMI 24.9
--- NOTE | 2023-04-07 15:07 | EX.ED.GENINJ ---
HPI History of Present Illness Chief Complaint: Laceration Informant: patient Narrative Narrative: Hour or 2 ago, self-inflicted laceration to the left forearm with a clean kitchen knife. Patient states he is not suicidal, is not having suicidal thoughts, but he is having a rough time recently because he is being evicted and having to live somewhere where he is not able to take his dog who is usually his source of stress relief. Today as a result of this, he decided to cut on himself for stress relief, which she has done multiple times in the past. States his dog usually prevents him from doing this. He states he does not think he needs stitches. There is 1 area that is open that he scratched the scab open off of, it was an injury that he did by cutting on himself 2 weeks ago. He denies any numbness tingling weakness or other injuries or symptoms. [facility] Medical History Alcoholic cirrhosis Alcoholic hepatitis Anxiety and depression Carrier of hemochromatosis HFE gene mutation Cirrhosis Diabetes mellitus type 2 in nonobese Former smoker Former tobacco use Gastric reflux Gout Hepatic encephalopathy History of alcohol abuse History of panic attacks HTN (hypertension) Hx of gout Seasonal allergies Sleep apnea Suicide attempt Trauma Home Medications folic acid 1 mg tablet 1 mg PO DAILY #90 tabs 05/02/22 [Rx Last Taken Unknown] trazodone 50 mg tablet See Rx Instructions PO QHS PRN sleep #30 tabs 06/27/22 [Rx Last Taken Unknown] pantoprazole 40 mg tablet,delayed release 40 mg PO DAILY GERD 12/21/22 [History Last Taken Unknown] aripiprazole 2 mg tablet 2 mg PO QHS PSYCH 01/05/23 [History Last Taken Unknown] promethazine 25 mg tablet 25 mg PO QHS PRN nausea and vomiting #30 tabs 01/05/23 [Rx Last Taken Unknown] scopolamine base 1 mg over 3 days transdermal patch 1 patch transdermal Q72H NAUSEA #10 ea 02/02/23 [Rx Last Taken Unknown] furosemide 40 mg tablet 40 mg PO DAILY WATER PILL 02/07/23 [History Last Taken 02/06/23] rifaximin 550 mg tablet (Xifaxan) 550 mg PO BID DEPRESSION 02/07/23 [History Last Taken 02/06/23] sertraline 100 mg tablet 100 mg PO QHS DEPRES 02/12/23 [History Last Taken Unknown] sertraline 50 mg tablet (Zoloft) 150 mg PO DAILY 02/12/23 [History Last Taken Unknown] thiamine HCl (vitamin B1) 100 mg tablet (Vitamin B-1) 200 mg (2 x 100 mg) PO BID VITAMIN #60 tabs 03/03/23 [Rx Last Taken Unknown] Allergy/AdvReac Type Severity Reaction Status Date / Time pioglitazone Allergy Mild liver Verified 04/07/23 14:06 damange Family History Other CVA (cerebral vascular accident) Cancer Cirrhosis Heart disease Hypertension Thyroid disorder Surgical History History of esophagogastroduodenoscopy (EGD) History of surgery 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 Status: Current every day smoker tobacco type: cigarettes and pipe alcohol intake: former substance use type: does not use what type of physical activity do you participate in: other frequency: 1-2 times per week ROS ROS ED Constitutional Constitutional ED: Denies chills or fever(s) Eyes Eyes: Denies change in vision or diplopia ENT ENT ED: Denies rhinorrhea or sore throat Cardiovascular Cardiovascular: Denies chest pain or palpitations Respiratory/Chest Respiratory/Chest: Denies cough or dyspnea Gastrointestinal Gastrointestinal: Denies abdominal pain, diarrhea, nausea or vomiting Genitourinary Genitourinary ED: Denies dysuria or hematuria Musculoskeletal Musculoskeletal: Denies back pain or neck pain Integumentary Reports as per HPI; Denies abscess or rash Neurologic Neurologic: Denies headache(s), paresthesias or weakness Psychiatric Psychiatric: Reports anxiety; Denies depression or suicidal thoughts EXAM Physical Exam Const Vital Signs: 04/07/23 14:06 Temperature 98.5 F Temperature Source Temporal Pulse Rate 82 Respiratory Rate 18 Blood Pressure 162/80 H Blood Pressure Mean 107 Pulse Ox 100 Oxygen Delivery Method Room Air Positive well nourished and well developed General Appearance ED: well developed and NAD Eyes PERRL and EOMs intact bilaterally Neck full ROM and supple Resp normal respiratory effort Extremity Extremity Narrative: Full range of motion throughout left wrist and elbow. All compartments of the left forearm soft and nondistended. There is a partial-thickness laceration across the mid dorsal forearm, and a nearby wound that is partially scabbed and partially open, neither show signs of infection there is mild bleeding from the acute laceration. General Extremety ED: Negative for edema, pulses abnormal or tenderness General Extremity: Negative for edema or pulses abnormal Neuro oriented x3, CN's II-XII intact bilaterally and no sensory deficits noted Sensorium / Orientation: awake and alert Motor Exam: strength 5/5 throughout Psych mental status grossly normal and thought process normal Skin no rashes or lesions noted Skin Narrative: 3 cm partial-thickness clean appearing linear laceration with several components to it, left dorsal forearm. 1 cm dehisced area that is partially scabbed without signs of infection. It is full-thickness. MDM MDM MDM Narrative Medical decision making narrative: I do not think this needs sutured, the patient is in agreement. We cleansed both areas and dressed them with bacitracin. I do not think he needs to be pink slipped psychiatrically, he states he is a cutter and does this for stress, I asked him if he understood that this was a poor choice for a mechanism to relieve stress, he states he does understand that. He will be discharged. Discharge Plan Triage Chief Complaint: Laceration ED Provider: Tao Velasquez Dx/Rx/DC Orders Clinical Impression: Injury, self-inflicted Instructions: ED Laceration Small or ... Prescriptions: No Action pantoprazole 40 mg tablet,delayed release (DR/EC) 40 mg PO DAILY Rx Instructions: take 1 tablet by mouth once daily aripiprazole 2 mg tablet 2 mg PO QHS Patient Comments: take 1 tablet by mouth once daily promethazine 25 mg tablet 25 mg PO QHS PRN (Reason: nausea and vomiting) Qty: 30 0RF sertraline 100 mg tablet 100 mg PO QHS Patient Comments: TAKE 1 TABLET BY MOUTH EVERY DAY sertraline [Zoloft] 50 mg tablet 150 mg PO DAILY furosemide 40 mg tablet 40 mg PO DAILY Rx Instructions: take 1 tablet by mouth once daily Xifaxan 550 mg tablet 550 mg PO BID Rx Instructions: take 1 tablet by mouth twice a day folic acid 1 mg tablet 1 mg PO DAILY Qty: 90 3RF trazodone 50 mg tablet See Rx Instructions PO QHS PRN (Reason: sleep) Qty: 30 1RF Rx Instructions: May take 1/2 to 1 tablet nightly as needed scopolamine base 1 mg over 3 days patch 3 day 1 patch transdermal Q72H Qty: 10 2RF thiamine HCl (vitamin B1) [Vitamin B-1] 100 mg tablet 200 mg PO BID Qty: 60 0RF Primary Care Provider: Ita Goddard Referrals: Ita Goddard MD [Primary Care Provider] - As Needed Disposition Disposition: Home, Self Care
--- NOTE | 2023-04-07 15:24 | ED.RN ---
spoke with legal guardian that patient is being discharged and will return to his apartment via taxi. this nurse was notified that case management and legal guardian would check in with patient when he returns to his residence.
== END 2023-04-07 15:27 | disposition home or self-care (01) ==
PROVIDERS: Emergency Provider Emergency Medicine; PCP Internal Medicine; Visit Provider Emergency Medicine
DX: S51.812A Laceration without foreign body of left forearm, initial encounter (principal); X78.1XXA Intentional self-harm by knife, initial encounter; E11.9 Type 2 diabetes mellitus without complications; F17.210 Nicotine dependence, cigarettes, uncomplicated; I10 Essential (primary) hypertension; F17.290 Nicotine dependence, other tobacco product, uncomplicated
CPT/HCPCS: 99284; A4216

== ENCOUNTER 2023-04-13 23:43 | Emergency (ER) | payer MEDICAID, SELFPAY ==
[2023-04-13 23:52] VITALS: BP 147/77; PULSE 88; RESP 16; TEMP 36.6; O2SAT 98; BMI 25.7
--- NOTE | 2023-04-14 00:21 | EX.ED.DYSGE1 ---
HPI History of Present Illness Chief Complaint: Suicidal Informant: patient and EMS Narrative Narrative: Patient is a 48-year-old male with past medical history of diabetes and depression. He states he was evicted today and has been feeling increased depression since that time. He states he cut his left arm which he does occasionally as he is right-hand dominant and he states he does this to relieve stress. He reports that he was outside as he was evicted lying in the yard and secondary to this police were called. He informed them that he feels depressed and suicidal and therefore EMS was called and he was brought to the ER for evaluation. The patient states that this time he plans to jump off a bridge. He states that he was admitted to a psychiatric center last month secondary to depression. He denies any previous admissions for suicidal ideation and he denies any previous suicide attempts. [facility] Medical History Alcoholic cirrhosis Alcoholic hepatitis Anxiety and depression Carrier of hemochromatosis HFE gene mutation Cirrhosis Diabetes mellitus type 2 in nonobese Former smoker Former tobacco use Gastric reflux Gout Hepatic encephalopathy History of alcohol abuse History of panic attacks HTN (hypertension) Hx of gout Seasonal allergies Sleep apnea Suicide attempt Trauma Home Medications folic acid 1 mg tablet 1 mg PO DAILY #90 tabs 05/02/22 [Rx Last Taken Unknown] trazodone 50 mg tablet See Rx Instructions PO QHS PRN sleep #30 tabs 06/27/22 [Rx Last Taken Unknown] pantoprazole 40 mg tablet,delayed release 40 mg PO DAILY GERD 12/21/22 [History Last Taken Unknown] aripiprazole 2 mg tablet 2 mg PO QHS PSYCH 01/05/23 [History Last Taken Unknown] promethazine 25 mg tablet 25 mg PO QHS PRN nausea and vomiting #30 tabs 01/05/23 [Rx Last Taken Unknown] scopolamine base 1 mg over 3 days transdermal patch 1 patch transdermal Q72H NAUSEA #10 ea 02/02/23 [Rx Last Taken Unknown] furosemide 40 mg tablet 40 mg PO DAILY WATER PILL 02/07/23 [History Last Taken 02/06/23] rifaximin 550 mg tablet (Xifaxan) 550 mg PO BID DEPRESSION 02/07/23 [History Last Taken 02/06/23] sertraline 100 mg tablet 100 mg PO QHS DEPRES 02/12/23 [History Last Taken Unknown] sertraline 50 mg tablet (Zoloft) 150 mg PO DAILY 02/12/23 [History Last Taken Unknown] thiamine HCl (vitamin B1) 100 mg tablet (Vitamin B-1) 200 mg (2 x 100 mg) PO BID VITAMIN #60 tabs 03/03/23 [Rx Last Taken Unknown] Allergy/AdvReac Type Severity Reaction Status Date / Time pioglitazone Allergy Mild liver Verified 04/07/23 14:06 damange Family History Other CVA (cerebral vascular accident) Cancer Cirrhosis Heart disease Hypertension Thyroid disorder Surgical History History of esophagogastroduodenoscopy (EGD) History of surgery 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 Status: Current every day smoker tobacco type: cigarettes and pipe alcohol intake: former substance use type: does not use what type of physical activity do you participate in: other frequency: 1-2 times per week ROS ROS ED Constitutional Constitutional ED: Denies chills or fever(s) ENT ENT ED: Denies sore throat Cardiovascular Cardiovascular: Denies chest pain Respiratory/Chest Respiratory/Chest: Denies cough or dyspnea Gastrointestinal Gastrointestinal: Denies abdominal pain, diarrhea, nausea or vomiting Genitourinary Genitourinary ED: Denies dysuria Musculoskeletal Musculoskeletal: Denies myalgias Integumentary Denies rash Neurologic Neurologic: Denies headache(s) Psychiatric Psychiatric: Reports depression, suicidal ideation and suicidal thoughts Hematologic/Lymphatic Hematologic/Lymphatic: Denies easy bleeding or easy bruising EXAM Physical Exam Const Vital Signs: 04/13/23 23:52 04/14/23 03:38 04/14/23 04:36 Temperature 97.8 F Temperature Source Oral Pulse Rate 88 75 79 Respiratory Rate 16 18 18 Blood Pressure 147/77 H 115/59 L Blood Pressure Mean 100 77 Pulse Ox 98 98 Oxygen Delivery Method Room Air Room Air Positive well nourished and well developed General Appearance ED: well developed HEENT HEENT Narrative: Normocephalic atraumatic Eyes PERRL and EOMs intact bilaterally Neck supple Neck Narrative: No nuchal rigidity or meningeal signs Resp normal respiratory effort and clear to auscultation bilaterally Cardio regular rate and regular rhythm GI normal to inspection, nondistended, normoactive bowel sounds, non-tender, non-distended and no masses Auscultation: normoactive bowel sounds Palpation: soft Extremity Extremity Narrative: And has a superficial dermal layer laceration along the midportion of the left forearm without foreign body or active bleeding consistent with his report of cutting. No need for closure. No secondary changes to suggest infection. Neuro oriented x3 and CN's II-XII intact bilaterally Sensorium / Orientation: alert Psych Psych Narrative: Patient has a depressed flat affect with suicidal ideation with plan. Patient reports to jump off a bridge. Skin no rashes or lesions noted Skin Narrative: Superficial abrasion/laceration to left forearm as documented MDM MDM MDM Narrative Medical decision making narrative: Patient presented to the ER with stable vitals. He has a known history of major depression and was hospitalized in February secondary to this. He has had a recent life stressor event occur and this is worsened his depression and now he has thoughts of suicide with plan to jump off a bridge. Secondary to his worsening depression with suicidal ideation and plan a psychiatric evaluation will be undergone. Patient has anemia which is chronic in nature and near baseline. Potassium is slightly down at 3.3 which is not clinically significant. He did admit to drinking alcohol today but his value is 52 which is legally sober as the legal limit is 80. He also has a positive marijuana in his system which is chronic for him. The self-inflicted wound to his left forearm is superficial and does not need closed. Based on his now suicidal ideation with plan crisis center was contacted. They came to the ER and evaluated the patient and they do feel it is in his best interest for hospitalization. Crisis center will work on placement at this time. [facility] The patient is medically cleared from an emergency room standpoint for transfer/placement to psychiatric center History & Record Review Discussion w/independent historian: Patient Lab Data Attestation: I reviewed the patient's lab results. Labs: Laboratory Results - last 24 hr 04/14/23 04/14/23 00:15 00:16 WBC 4.9 RBC 2.54 L Hgb 8.3 L Hct 25.8 L MCV 101.6 H MCH 32.7 H MCHC 32.2 RDW Std Deviation 62.6 H RDW Coeff of Kaela 16.9 H Plt Count 84 L MPV 9.4 Immature Gran % (Auto) 0.200 Neut % (Auto) 62.8 Lymph % (Auto) 20.6 [place] % (Auto) 11.5 H Eos % (Auto) 4.1 Baso % (Auto) 0.8 Absolute Neuts (auto) 3.0 Absolute Lymphs (auto) 1.00 Nucleated RBC % 0 Sodium 145 Potassium 3.3 L Chloride 115 H Carbon Dioxide 29.0 Anion Gap 1 L BUN 9 Creatinine 0.73 Estim Creat Clear Calc 122.41 Est GFR (MDRD) Af Amer 147 Est GFR (MDRD) Non-Af 121 BUN/Creatinine Ratio 12.3 Glucose 124 H Calcium 8.0 L Urine Opiates Screen NEGATIVE Urine Methadone Screen NEGATIVE Ur Barbiturates Screen NEGATIVE Ur Phencyclidine Scrn NEGATIVE Ur Amphetamines Screen NEGATIVE MDMA (Ecstasy) Screen NEGATIVE U Benzodiazepines Scrn NEGATIVE Urine Cocaine Screen NEGATIVE U Cannabinoids Screen POSITIVE H Ur Drug Screen Comment Ethyl Alcohol 52.0 Discharge Plan Triage Chief Complaint: Suicidal ED Provider: Min Butt Dx/Rx/DC Orders Clinical Impression: Depression with suicidal ideation, Chronic anemia Prescriptions: No Action pantoprazole 40 mg tablet,delayed release (DR/EC) 40 mg PO DAILY Rx Instructions: take 1 tablet by mouth once daily aripiprazole 2 mg tablet 2 mg PO QHS Patient Comments: take 1 tablet by mouth once daily promethazine 25 mg tablet 25 mg PO QHS PRN (Reason: nausea and vomiting) Qty: 30 0RF sertraline 100 mg tablet 100 mg PO QHS Patient Comments: TAKE 1 TABLET BY MOUTH EVERY DAY sertraline [Zoloft] 50 mg tablet 150 mg PO DAILY furosemide 40 mg tablet 40 mg PO DAILY Rx Instructions: take 1 tablet by mouth once daily Xifaxan 550 mg tablet 550 mg PO BID Rx Instructions: take 1 tablet by mouth twice a day folic acid 1 mg tablet 1 mg PO DAILY Qty: 90 3RF trazodone 50 mg tablet See Rx Instructions PO QHS PRN (Reason: sleep) Qty: 30 1RF Rx Instructions: May take 1/2 to 1 tablet nightly as needed scopolamine base 1 mg over 3 days patch 3 day 1 patch transdermal Q72H Qty: 10 2RF thiamine HCl (vitamin B1) [Vitamin B-1] 100 mg tablet 200 mg PO BID Qty: 60 0RF Primary Care Provider: Ita Goddard Referrals: Ita Goddard MD [Primary Care Provider] - Disposition Disposition: Psychiatric Hospital or Unit Discharge Location: [facility]
[2023-04-14 00:27] LABS: Basophil# 0.04 X10^3/uL; Basophil% 0.8 % (0-1); Eosinophils% 4.1 % (0-5); Hematocrit 25.8 % (40-54); Hemoglobin 8.3 g/dL (13.0-16.5); Lymphocyte % 20.6 % (19-41); Mean Corp Hgb Conc 32.2 g/dL (32-36); Mean Corpuscular Hgb 32.7 pg (27.0-32.0); Mean Corpuscular Volume 101.6 fL (80-94); Mean Platelet Vol. 9.4 fl (6.2-12.0); Monocyte# 0.56 X10^3/uL; Monocyte% 11.5 % (0-10); NRBC Flagged by Analyzer 0 % (0-5); Neutrophil # 3.04 X10^3/uL (2.7-7.7); Neutrophil % 62.8 % (47-70); POSITIVE COUNT YES; Platelet Count 84 K/mm3 (150-450); RBC Distribution Width CV 16.9 % (11.6-14.6); RBC Distribution Width SD 62.6 fl (35.1-43.9); Red Blood Count 2.54 M/mm3 (4.6-6.2); White Blood Count 4.9 K/mm3 (4.4-11.0)
[2023-04-14 00:35] LABS: Anion Gap 1 (5-15); BUN 9 mg/dL (7-18); BUN/Creat Ratio 12.3 RATIO (10-20); Chloride 115 mmol/L (98-107); Creatinine, Serum 0.73 mg/dL (0.70-1.30); EST Glomerular Filtration Rate 121 mL/min (>60); Est Glom Filt Rate - Afr Amer 147 mL/min (>60); Estimated Creatinine Clearance 122.41 ml/min; Glucose 124 mg/dL (74-106); Potassium 3.3 mmol/L (3.5-5.1); Sodium Level 145 mmol/L (136-145)
[2023-04-14 01:26] LABS: Amphetamine Urine VISTA NEGATIVE (<1000 ng/mL); Barbiturate Urine VISTA NEGATIVE (< 200 ng/mL); Benzodiazepine Urine VISTA NEGATIVE (< 200 ng/mL); Cocaine Urine VISTA NEGATIVE (< 300 ng/mL); Ecstacy Urine VISTA NEGATIVE (< 500 ng/mL); Methadone Urine VISTA NEGATIVE (< 300 ng/mL); PCP Urine VISTA NEGATIVE (< 25 ng/mL); THC Urine VISTA POSITIVE (< 50 ng/mL); Vista UDS pH Range 5
--- NOTE | 2023-04-14 02:37 | ED.RN ---
CHART FAXED AND CRISIS HAS EVALUATED. PT TO BE PLACED.
[2023-04-14 03:38] VITALS: PULSE 75; RESP 18
[2023-04-14 04:36] VITALS: BP 115/59; PULSE 79; RESP 18; O2SAT 98
--- NOTE | 2023-04-14 04:54 | ED.RN ---
PT PENDING AT [facility]
[2023-04-14 07:04] VITALS: BP 115/59; PULSE 79; RESP 16; RESP 18; TEMP 36.7; O2SAT 98
== END 2023-04-14 07:31 ==
PROVIDERS: Emergency Provider Emergency Medicine; PCP Internal Medicine; Visit Provider Emergency Medicine
DX: S51.812A Laceration without foreign body of left forearm, initial encounter (principal); X78.9XXA Intentional self-harm by unspecified sharp object, initial encounter; E11.9 Type 2 diabetes mellitus without complications; D64.9 Anemia, unspecified; F17.210 Nicotine dependence, cigarettes, uncomplicated; F32.A Depression, unspecified; R45.851 Suicidal ideations; I10 Essential (primary) hypertension
CPT/HCPCS: 80048; 80307; 82077; 85025; 87811; 93005; 99285

== ENCOUNTER 2023-04-22 04:25 | Emergency (ER) | payer MEDICAID, SELFPAY ==
[2023-04-22 04:28] VITALS: BP 140/71; PULSE 88; RESP 16; TEMP 36.4; O2SAT 98; BMI 26.2
--- NOTE | 2023-04-22 04:40 | EKG12_ITS ---
Test Reason : DYSRHYTHMIA Blood Pressure : / mmHG Vent. Rate : 085 BPM Atrial Rate : 085 BPM P-R Int : 160 ms QRS Dur : 090 ms QT Int : 416 ms P-R-T Axes : 061 034 034 degrees QTc Int : 495 ms Normal sinus rhythm Septal infarct , age undetermined Abnormal ECG Confirmed by JADEN HORNE, MANJULA ([id number]), online content editor ANNEMARIE SHAFER ([id number]) on 04/25/2023 12:17:58 PM Referred By: Confirmed By:MANJULA STANLEY MD
--- NOTE | 2023-04-22 04:40 | ED.VIS.FALL ---
HPI HPI - Fall History of Present Illness Chief Complaint: Fall Informant: patient Occured/Mechanism Occurred: Today and Hours Mechanism/Context: Yes same level fall Usually ambulates: Without assistance Pain/Injury Pain Location: none Associated Symptoms Associated Symptoms: Negative for Parasthesias, Weakness, Loss of function or Amnesia Narrative Narrative: 48-year-old male well-known to this emergency department. History of alcoholic cirrhosis, anxiety, chronic anemia. Currently living out of a hotel. Says he was walking in that area and he went down. No loss conscious. No head injury. Denies any headache, chest pain or abdominal pain. Denies any nausea, vomiting, diarrhea. Denies any fever or melena. Patient called 911 and was brought to the ER. Prior similar symptoms: No Recent Illness/Hospitalization: No PFSH PFS Medical History Alcoholic cirrhosis Alcoholic hepatitis Anxiety and depression Carrier of hemochromatosis HFE gene mutation Cirrhosis Diabetes mellitus type 2 in nonobese Former smoker Former tobacco use Gastric reflux Gout Hepatic encephalopathy History of alcohol abuse History of panic attacks HTN (hypertension) Hx of gout Seasonal allergies Sleep apnea Suicide attempt Trauma Home Medications folic acid 1 mg tablet 1 mg PO DAILY #90 tabs 05/02/22 [Rx Last Taken Unknown] trazodone 50 mg tablet See Rx Instructions PO QHS PRN sleep #30 tabs 06/27/22 [Rx Last Taken Unknown] pantoprazole 40 mg tablet,delayed release 40 mg PO DAILY GERD 12/21/22 [History Last Taken Unknown] aripiprazole 2 mg tablet 2 mg PO QHS PSYCH 01/05/23 [History Last Taken Unknown] promethazine 25 mg tablet 25 mg PO QHS PRN nausea and vomiting #30 tabs 01/05/23 [Rx Last Taken Unknown] scopolamine base 1 mg over 3 days transdermal patch 1 patch transdermal Q72H NAUSEA #10 ea 02/02/23 [Rx Last Taken Unknown] furosemide 40 mg tablet 40 mg PO DAILY WATER PILL 02/07/23 [History Last Taken 02/06/23] rifaximin 550 mg tablet (Xifaxan) 550 mg PO BID DEPRESSION 02/07/23 [History Last Taken 02/06/23] sertraline 100 mg tablet 100 mg PO QHS DEPRES 02/12/23 [History Last Taken Unknown] sertraline 50 mg tablet (Zoloft) 150 mg PO DAILY 02/12/23 [History Last Taken Unknown] thiamine HCl (vitamin B1) 100 mg tablet (Vitamin B-1) 200 mg (2 x 100 mg) PO BID VITAMIN #60 tabs 03/03/23 [Rx Last Taken Unknown] Allergy/AdvReac Type Severity Reaction Status Date / Time pioglitazone Allergy Mild liver Verified 04/22/23 04:26 damange Family History Other CVA (cerebral vascular accident) Cancer Cirrhosis Heart disease Hypertension Thyroid disorder Surgical History History of esophagogastroduodenoscopy (EGD) History of surgery 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 Review of Systems ROS Unobtainable: Denies due to encephalopathy Constitutional Constitutional ED: Denies chills or fever(s) Eyes Eyes: Denies blurry vision ENT ENT ED: Denies ear pain Cardiovascular Cardiovascular: Denies chest pain or palpitations Respiratory/Chest Respiratory/Chest: Denies cough or dyspnea Gastrointestinal Gastrointestinal: Denies abdominal pain, constipation, diarrhea, melena, nausea or vomiting Genitourinary Genitourinary ED: Denies dysuria or hematuria Musculoskeletal Musculoskeletal: Denies arthralgias Integumentary Denies abscess Neurologic Neurologic: Denies headache(s) Psychiatric Psychiatric: Denies anxiety Endocrine Endocrinology: Denies polydipsia Hematologic/Lymphatic Hematologic/Lymphatic: Denies easy bleeding Allergic/Immunologic Allergic/Immunologic ED: Denies mouth swelling, tongue swelling or urticaria EXAM Physical Exam Narrative Exam Narrative: 8-year-old male vital signs stable afebrile. He does not look septic toxic. He is in no distress. Pulse ox 98% on room air no signs hypoxia. No one else present in the room other than the patient, the nurse and myself. HEENT exam unremarkable atraumatic. Pupils are reactive light. No signs of trauma to his head. Nontender. Neck nontender. Lungs clear to auscultation. Heart regular rhythm no murmur. Chest wall and ribs nontender. Abdomen soft nontender. No peritoneal signs. Moving all 4 extremities. Nontender no deformity. Normal gas meter checker strength. Normal dorsi plantarflexion. Back nontender. He is awake and alert. He is answering questions and following commands. Const Vital Signs: 04/22/23 04:28 04/22/23 04:54 Temperature 97.6 F L Temperature Source Temporal Pulse Rate 88 Respiratory Rate 16 Respiratory Effort Normal Blood Pressure 140/71 H Blood Pressure Mean 94 Pulse Ox 98 Oxygen Delivery Method Room Air Positive well nourished and well developed; Negative for cachectic, contractures or unkempt General Appearance ED: well developed and NAD; Negative for unkempt, cachectic or contractures Nutritional Appearance: Negative for cachectic HEENT Reports normocephalic atraumatic; Negative for trauma, contusion, hematoma or tenderness Eyes PERRL and EOMs intact bilaterally General Eye ED: Negative for pale conjunctiva or scleral icterus Neck full ROM, no lymphadenopathy and supple General: Negative for tenderness Chest Wall inspection of chest normal and palpation of chest normal Chest: Negative for other Resp normal respiratory effort, no retractions and clear to auscultation bilaterally Effort and Inspection: Negative for pain with movement Auscultation: Negative for rales, rhonchi or wheezes Cardio regular rate, regular rhythm, S1 normal heart sound, S2 normal heart sound and no murmurs Rate: Negative for bradycardia or tachycardic Rhythm: Negative for abnormal rhythm Bruits: Negative for other GI non-tender, non-distended and no masses Inspection: Negative for abdominal distention Auscultation: normoactive bowel sounds Palpation: soft; Negative for guarding or rebound tenderness present Back/Spine no CVA tenderness General Back: Negative for CVA tenderness Cervical Spine: Negative for cervical spine tenderness Thoracic Spine / Upper Back: Negative for ROM limited Lumbar Spine / Lower Back: Negative for lumbar spinal tenderness or paraspinal muscle tenderness Neuro oriented x3, CN's II-XII intact bilaterally, moves all extremities and no focal motor deficits Sensorium / Orientation: oriented to person, oriented to place and oriented to time; Negative for orientation impaired, confused, lethargic or stuporous Motor Exam: strength 5/5 throughout Psych mental status grossly normal and thought process normal Appearance: Negative for unkempt Attitude: No agitated Mood & Affect: Negative for depressed, anxious or tearful Skin Lesions: no lesions Rashes: no rashes MDM MDM MDM Narrative Medical decision making narrative: This 48-year-old male history of alcoholic cirrhosis. History of chronic anemia. Fell tonight. Denies any LOC. Does not sound like a syncopal event. His exam is benign. Screening labs and EKG will be obtained. If his work-up is negative he will be discharged. Repeat exam patient is doing well at 5:28 AM. He will be discharged home in the morning. History & Record Review Discussion w/independent historian: Patient Additional record(s) reviewed:: Prior inpatient record, Prior outpatient record, Prior ED visit and Prior labs Lab Data Attestation: I reviewed the patient's lab results. Lab results narrative: A white count of 4.4. H&H 9.3 and 30 that is his baseline chronic anemia. Platelet count of 70,000. Also baseline. History does show gap of 5. Normal BUN 11 creatinine 1. Glucose of 203. Labs: Laboratory Results - last 24 hr 04/22/23 04/22/23 04:30 04:50 WBC 4.4 RBC 3.00 L Hgb 9.3 L Hct 30.0 L MCV 100.0 H MCH 31.0 MCHC 31.0 L RDW Std Deviation 59.3 H RDW Coeff of Kaela 16.0 H Plt Count 70 L MPV 11.1 Immature Gran % (Auto) 0.500 Neut % (Auto) 80.5 H Lymph % (Auto) 8.5 L [place] % (Auto) 8.9 Eos % (Auto) 0.9 Baso % (Auto) 0.7 Absolute Neuts (auto) 3.5 Absolute Lymphs (auto) 0.37 L Nucleated RBC % 0 Sodium 140 Potassium 3.7 Chloride 109 H Carbon Dioxide 26.0 Anion Gap 5 BUN 11 Creatinine 1.01 Estim Creat Clear Calc 88.47 Est GFR (MDRD) Af Amer 101 Est GFR (MDRD) Non-Af 83 BUN/Creatinine Ratio 10.9 Glucose 203 H Calcium 7.6 L Rhythm Strip Rhythm Strip: Sinus Rhythm Rate: 85 Ectopy: None EKG Initial EKG: Attestation: I personally reviewed and interpreted this EKG as follows: Interpretation: Sinus Rhythm and No Acute Injury Pattern Comments: Sinus rhythm rate 85 no acute signs of RI or ischemia. Discharge Plan Triage Chief Complaint: Fall ED Provider: Carlos Lawrence Dx/Rx/DC Orders Clinical Impression: History of anemia of chronic disease, History of cirrhosis of liver, Fall Prescriptions: No Action pantoprazole 40 mg tablet,delayed release (DR/EC) 40 mg PO DAILY Rx Instructions: take 1 tablet by mouth once daily aripiprazole 2 mg tablet 2 mg PO QHS Patient Comments: take 1 tablet by mouth once daily promethazine 25 mg tablet 25 mg PO QHS PRN (Reason: nausea and vomiting) Qty: 30 0RF sertraline 100 mg tablet 100 mg PO QHS Patient Comments: TAKE 1 TABLET BY MOUTH EVERY DAY sertraline [Zoloft] 50 mg tablet 150 mg PO DAILY furosemide 40 mg tablet 40 mg PO DAILY Rx Instructions: take 1 tablet by mouth once daily Xifaxan 550 mg tablet 550 mg PO BID Rx Instructions: take 1 tablet by mouth twice a day folic acid 1 mg tablet 1 mg PO DAILY Qty: 90 3RF trazodone 50 mg tablet See Rx Instructions PO QHS PRN (Reason: sleep) Qty: 30 1RF Rx Instructions: May take 1/2 to 1 tablet nightly as needed scopolamine base 1 mg over 3 days patch 3 day 1 patch transdermal Q72H Qty: 10 2RF thiamine HCl (vitamin B1) [Vitamin B-1] 100 mg tablet 200 mg PO BID Qty: 60 0RF Primary Care Provider: Ita Goddard Referrals: Ita Goddard MD [Primary Care Provider] - As Needed Activity Restrictions/Additional Instructions: Your labs looked okay today. Any problems follow-up your primary care physician. Disposition Disposition: Home, Self Care
[2023-04-22 05:07] LABS: Absolute Lymphocyte Count 0.37 X10^3/uL (0.83-4.51); Absolute Neutrophil Count 3.5 X10^3/uL (2.0-7.7); Basophil# 0.03 X10^3/uL; Basophil% 0.7 % (0-1); Eosinophil# 0.04 X10^3/uL; Eosinophils% 0.9 % (0-5); Hemoglobin 9.3 g/dL (13.0-16.5); Lymphocyte # 0.37 X10^3/ul (0.83-4.51); Lymphocyte % 8.5 % (19-41); Mean Platelet Vol. 11.1 fl (6.2-12.0); Monocyte# 0.39 X10^3/uL; Monocyte% 8.9 % (0-10); NRBC Flagged by Analyzer 0 % (0-5); Neutrophil # 3.51 X10^3/uL (2.7-7.7); Neutrophil % 80.5 % (47-70); POSITIVE COUNT YES; POSITIVE DIFFERENTIAL YES; Platelet Count 70 K/mm3 (150-450); RBC Distribution Width SD 59.3 fl (35.1-43.9); White Blood Count 4.4 K/mm3 (4.4-11.0)
[2023-04-22 05:09] LABS: Differential Indicated SCAN CRITERIA MET
[2023-04-22 05:23] LABS: Anion Gap 5 (5-15); BUN 11 mg/dL (7-18); BUN/Creat Ratio 10.9 RATIO (10-20); Calcium,Total 7.6 mg/dL (8.5-10.1); Chloride 109 mmol/L (98-107); Creatinine, Serum 1.01 mg/dL (0.70-1.30); EST Glomerular Filtration Rate 83 mL/min (>60); Est Glom Filt Rate - Afr Amer 101 mL/min (>60); Estimated Creatinine Clearance 88.47 ml/min; Glucose 203 mg/dL (74-106); Potassium 3.7 mmol/L (3.5-5.1); Sodium Level 140 mmol/L (136-145)
[2023-04-22 05:38] LABS: Differential Comment SCANNED; Platelet Estimate MOD DEC (ADEQ)
[2023-04-22 07:32] VITALS: BP 111/63; PULSE 79; RESP 18; O2SAT 97
== END 2023-04-22 08:17 | disposition home or self-care (01) ==
PROVIDERS: Emergency Provider Emergency Medicine; PCP Internal Medicine; Visit Provider Emergency Medicine
DX: Z04.3 Encounter for examination and observation following other accident (principal); E11.9 Type 2 diabetes mellitus without complications; F41.9 Anxiety disorder, unspecified; I10 Essential (primary) hypertension; F17.210 Nicotine dependence, cigarettes, uncomplicated; Z86.2 Personal history of diseases of the blood and blood-forming organs and certain disorders involving the immune mechanism; Z87.19 Personal history of other diseases of the digestive system
CPT/HCPCS: 80048; 85025; 93005; 99285

== ENCOUNTER 2023-04-22 13:38 | Inpatient (IN) | payer MEDICAID, SELFPAY ==
[2023-04-22 13:39] VITALS: BP 126/64; PULSE 96; RESP 24; TEMP 37.1; O2SAT 97; BMI 24.1
--- NOTE | 2023-04-22 14:11 | EKG12_ITS ---
Test Reason : Blood Pressure : / mmHG Vent. Rate : 083 BPM Atrial Rate : 083 BPM P-R Int : 158 ms QRS Dur : 092 ms QT Int : 424 ms P-R-T Axes : 032 027 023 degrees QTc Int : 498 ms Normal sinus rhythm Septal infarct , age undetermined Abnormal ECG Confirmed by JADEN HORNE, MANJULA ([id number]), online editor STIVEN KAM ([id number]) on 04/25/2023 7:42:21 AM Referred By: Confirmed By:MANJULA STANLEY MD
--- NOTE | 2023-04-22 14:12 | EX.ED.DYSGE1 ---
HPI History of Present Illness Chief Complaint: Fatigue Narrative Narrative: Patient was seen earlier this morning, apparently he just went down but did not pass out fully, he was walking around [employer] today and had a similar episode. He is living in a hotel, he has a history of alcoholic hepatitis, liver disease and anemia. He denies a head injury. He is complaining of right knee pain. [facility] Medical History Alcoholic cirrhosis Alcoholic hepatitis Anxiety and depression Carrier of hemochromatosis HFE gene mutation Cirrhosis Diabetes mellitus type 2 in nonobese Former smoker Former tobacco use Gastric reflux Gout Hepatic encephalopathy History of alcohol abuse History of panic attacks HTN (hypertension) Hx of gout Seasonal allergies Sleep apnea Suicide attempt Trauma Home Medications folic acid 1 mg tablet 1 mg PO DAILY #90 tabs 05/02/22 [Rx Last Taken Unknown] trazodone 50 mg tablet See Rx Instructions PO QHS PRN sleep #30 tabs 06/27/22 [Rx Last Taken Unknown] pantoprazole 40 mg tablet,delayed release 40 mg PO DAILY GERD 12/21/22 [History Last Taken Unknown] aripiprazole 2 mg tablet 2 mg PO QHS PSYCH 01/05/23 [History Last Taken Unknown] promethazine 25 mg tablet 25 mg PO QHS PRN nausea and vomiting #30 tabs 01/05/23 [Rx Last Taken Unknown] scopolamine base 1 mg over 3 days transdermal patch 1 patch transdermal Q72H NAUSEA #10 ea 02/02/23 [Rx Last Taken Unknown] furosemide 40 mg tablet 40 mg PO DAILY WATER PILL 02/07/23 [History Last Taken 02/06/23] rifaximin 550 mg tablet (Xifaxan) 550 mg PO BID DEPRESSION 02/07/23 [History Last Taken 02/06/23] sertraline 100 mg tablet 100 mg PO QHS DEPRES 02/12/23 [History Last Taken Unknown] sertraline 50 mg tablet (Zoloft) 150 mg PO DAILY 02/12/23 [History Last Taken Unknown] thiamine HCl (vitamin B1) 100 mg tablet (Vitamin B-1) 200 mg (2 x 100 mg) PO BID VITAMIN #60 tabs 03/03/23 [Rx Last Taken Unknown] Allergy/AdvReac Type Severity Reaction Status Date / Time pioglitazone Allergy Mild liver Verified 04/22/23 04:26 damange Family History Other CVA (cerebral vascular accident) Cancer Cirrhosis Heart disease Hypertension Thyroid disorder Surgical History History of esophagogastroduodenoscopy (EGD) History of surgery Social History (Updated 04/22/23 @ 13:43 by Kirstin Retana) housing: homeless 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 Weakness and near syncope Eyes: No visual changes ENT: No upper airway congestion, normal voice Neck: No neck pain Cardiovascular: No chest pain. Denies palpitations Respiratory: No shortness of breath or cough Gastrointestinal: No abdominal pain, nausea vomiting or diarrhea Genitourinary: No dysuria Musculoskeletal: Right knee pain. Neurological: No memory loss, confusion or any focal weakness Psych: No recent behavioral changes Hematologic: No easy bleeding or easy bruising EXAM Physical Exam Narrative Exam Narrative: Physical exam General: Patient appears comfortable in the bed. He is unkept Head: Normocephalic, Atraumatic Eyes: Conjunctiva not pale, no scleral icterus ENT: Slightly dry mucous membranes Neck: Supple, Nontender, No lymphadenopathy Cardiovascular: Regular rate, Regular rhythm Respiratory: No distress, CTA bilaterally Abdomen: Soft, Nontender, Nondistended Back: Nontender, Normal Inspection. Negative for: CVA tenderness Extremities: Nontender, No edema Skin: Normal color, No rash. I do appreciate jaundice Neurological: Alert, Normal Strength, Normal Sensation. Positive asterixis Const Vital Signs: 04/22/23 13:39 04/22/23 13:43 Temperature 98.7 F Temperature Source Temporal Pulse Rate 96 Respiratory Rate 24 H Respiratory Effort Normal Respiratory Pattern Normal Blood Pressure 126/64 H Blood Pressure Mean 84 Pulse Ox 97 Oxygen Delivery Method Room Air MDM MDM MDM Narrative Medical decision making narrative: Patient is found to be hyperammonemic, he fell twice since his second visit. I gave him lactulose and we will need to admit him. I do not see any signs or symptoms of infection. He did not hit his head but hit his knees his knee x-ray is unremarkable. He will be admitted to the hospital. Dr. Cordon Lab Data Labs: Laboratory Results - last 24 hr 04/22/23 04/22/23 14:30 14:36 WBC 5.4 RBC 2.87 L Hgb 9.0 L Hct 28.1 L MCV 97.9 H MCH 31.4 MCHC 32.0 RDW Std Deviation 58.4 H RDW Coeff of Kaela 16.1 H Plt Count 70 L MPV 10.3 Immature Gran % (Auto) 0.400 Neut % (Auto) 76.9 H Lymph % (Auto) 12.5 L Iron % (Auto) 9.1 Eos % (Auto) 0.7 Baso % (Auto) 0.4 Absolute Neuts (auto) 4.1 Absolute Lymphs (auto) 0.67 L Nucleated RBC % 0 PT 19.9 H INR 1.7 Sodium 139 Potassium 3.7 Chloride 108 H Carbon Dioxide 25.0 Anion Gap 6 BUN 13 Creatinine 0.83 Estim Creat Clear Calc 107.66 Est GFR (MDRD) Af Amer 127 Est GFR (MDRD) Non-Af 105 BUN/Creatinine Ratio 15.7 Glucose 108 H Calcium 8.1 L Ammonia 94.0 H Lipase 50 Ur Drug Screen Comment Ethyl Alcohol < 3.0 Radiography Diagnostic Testing: Clinical Impression(s) from Imaging Studies Knee X-Ray 04/22/23 14:13 IMPRESSION: No evidence of acute fracture or dislocation. Electronically Signed: Everardo Jon MD at 15:03 EDT , Knee x-ray is negative as read by me Discharge Plan Triage Chief Complaint: Fatigue ED Provider: Rudy Marquez Dx/Rx/DC Orders Clinical Impression: Alcoholic hepatitis, Cirrhosis, Hyperammonemia Prescriptions: No Action pantoprazole 40 mg tablet,delayed release (DR/EC) 40 mg PO DAILY Rx Instructions: take 1 tablet by mouth once daily aripiprazole 2 mg tablet 2 mg PO QHS Patient Comments: take 1 tablet by mouth once daily promethazine 25 mg tablet 25 mg PO QHS PRN (Reason: nausea and vomiting) Qty: 30 0RF sertraline 100 mg tablet 100 mg PO QHS Patient Comments: TAKE 1 TABLET BY MOUTH EVERY DAY sertraline [Zoloft] 50 mg tablet 150 mg PO DAILY furosemide 40 mg tablet 40 mg PO DAILY Rx Instructions: take 1 tablet by mouth once daily Xifaxan 550 mg tablet 550 mg PO BID Rx Instructions: take 1 tablet by mouth twice a day folic acid 1 mg tablet 1 mg PO DAILY Qty: 90 3RF trazodone 50 mg tablet See Rx Instructions PO QHS PRN (Reason: sleep) Qty: 30 1RF Rx Instructions: May take 1/2 to 1 tablet nightly as needed scopolamine base 1 mg over 3 days patch 3 day 1 patch transdermal Q72H Qty: 10 2RF thiamine HCl (vitamin B1) [Vitamin B-1] 100 mg tablet 200 mg PO BID Qty: 60 0RF Primary Care Provider: Ita Goddard Referrals: Ita Goddard MD [Primary Care Provider] - Disposition Disposition: Acute Care Hospital [facility]
--- NOTE | 2023-04-22 14:13 | RAD_ITS ---
INDICATION: trauma EXAMINATION/TECHNIQUE: X-RAY - RIGHT XR Knee Complete 4 Views or More 5 VIEWS COMPARISON: No relevant prior comparison study available FINDINGS: SOFT TISSUES: No soft tissue swelling or gas. No radiopaque foreign body. BONES/JOINTS: No acute fracture or subluxation.. Normal alignment. Preservation of the joint space.. No sclerotic or destructive changes observed. RAD/Knee 4 or More Views IMPRESSION: No evidence of acute fracture or dislocation. Electronically Signed: Everardo Jon MD at 15:03 EDT ,
[2023-04-22] MEDS: 0.9% Normal Saline (1000mL) 1,000 ML 1000 ML IV (14:33)
[2023-04-22 14:49] LABS: Absolute Lymphocyte Count 0.67 X10^3/uL (0.83-4.51); Absolute Neutrophil Count 4.1 X10^3/uL (2.0-7.7); Basophil# 0.02 X10^3/uL; Basophil% 0.4 % (0-1); Eosinophil# 0.04 X10^3/uL; Eosinophils% 0.7 % (0-5); Hematocrit 28.1 % (40-54); Lymphocyte # 0.67 X10^3/ul (0.83-4.51); Lymphocyte % 12.5 % (19-41); Mean Corpuscular Hgb 31.4 pg (27.0-32.0); Mean Corpuscular Volume 97.9 fL (80-94); Mean Platelet Vol. 10.3 fl (6.2-12.0); Monocyte# 0.49 X10^3/uL; Monocyte% 9.1 % (0-10); NRBC Flagged by Analyzer 0 % (0-5); Neutrophil # 4.13 X10^3/uL (2.7-7.7); Neutrophil % 76.9 % (47-70); POSITIVE COUNT YES; Platelet Count 70 K/mm3 (150-450); RBC Distribution Width CV 16.1 % (11.6-14.6); RBC Distribution Width SD 58.4 fl (35.1-43.9); Red Blood Count 2.87 M/mm3 (4.6-6.2); White Blood Count 5.4 K/mm3 (4.4-11.0)
[2023-04-22 14:52] LABS: International Normalized Ratio 1.7; Prothrombin Time (Protime)PT. 19.9 SECONDS (11.7-14.9)
[2023-04-22 15:00] LABS: Alcohol, Blood (Medical)-Serum < 3.0 mg/dL
[2023-04-22 15:01] LABS: Anion Gap 6 (5-15); BUN 13 mg/dL (7-18); BUN/Creat Ratio 15.7 RATIO (10-20); Calcium,Total 8.1 mg/dL (8.5-10.1); Chloride 108 mmol/L (98-107); Creatinine, Serum 0.83 mg/dL (0.70-1.30); EST Glomerular Filtration Rate 105 mL/min (>60); Est Glom Filt Rate - Afr Amer 127 mL/min (>60); Estimated Creatinine Clearance 107.66 ml/min; Glucose 108 mg/dL (74-106); Lipase 50 U/L (13-75); Potassium 3.7 mmol/L (3.5-5.1); Sodium Level 139 mmol/L (136-145)
--- NOTE | 2023-04-22 15:15 | HP.PCM.HOS_ITS ---
HPI - General General Date of Admission: 04/22/23 Date of Service: 04/22/23 Chief Complaint: Falls HPI Narrative ALEX ROJO, is a 48 M with history of alcoholic cirrhosis with hepatic encephalopathy, former alcohol use disorder, tobacco use disorder, anemia, thrombocytopenia, depression/anxiety and homelessness who presented to [facility] ED on 04/22/2023 for multiple falls. Patient seen at bedside in the ED. Laying comfortably in bed, no acute distress. Patient appears to be oriented on my interview and was answering questions appropriately. However he did notably have asterixis on exam. Patient is currently homeless, has been living in a hotel recently. States he fell this morning at the hotel and was b rought to the ED, but the work-up that was negative and he was discharged. He was at [facility] earlier this afternoon and fell again, and was again brought to the ED. He denies any loss of consciousness or hitting his head without fall. Primary pain is in his right knee. Patient denies feeling significantly more confused than normal, just feels more unsteady on his feet. He has been sober from alcohol for 3 years. He does use cannabis occasionally and uses tobacco chew, otherwise denies other substance use. States that aside from the Xifaxan, he has been taking his other home medications as prescribed. He denies any abdominal pain or distention recently. He denies any fevers or chills. Denies any chest pain, shortness of breath, lightheadedness or dizziness. No other acute concerns. Vitals in ED unremarkable. Labs notable for WBC count 5, hemoglobin 9.0, platelets 70, INR 1.7, sodium 139, potassium 3.7, chloride 108, bicarb 25, BUN 13, creatinine 0.83, glucose 108, magnesium 1.7, ammonia 94, lipase 50. UA unremarkable. Urine drug screen positive for cannabinoids, otherwise unremarkable. Knee x-ray negative. [facility] Medical History Alcoholic cirrhosis Alcoholic hepatitis Anxiety and depression Carrier of hemochromatosis HFE gene mutation Cirrhosis Diabetes mellitus type 2 in nonobese Former smoker Former tobacco use Gastric reflux Gout Hepatic encephalopathy History of alcohol abuse History of panic attacks HTN (hypertension) Hx of gout Seasonal allergies Sleep apnea Suicide attempt Trauma Home Medications folic acid 1 mg tablet 1 mg PO DAILY #90 tabs 05/02/22 [Rx Last Taken Unknown] trazodone 50 mg tablet See Rx Instructions PO QHS PRN sleep #30 tabs 06/27/22 [Rx Last Taken Unknown] pantoprazole 40 mg tablet,delayed release 40 mg PO DAILY GERD 12/21/22 [History Last Taken Unknown] aripiprazole 2 mg tablet 2 mg PO QHS PSYCH 01/05/23 [History Last Taken Unknown] promethazine 25 mg tablet 25 mg PO QHS PRN nausea and vomiting #30 tabs 01/05/23 [Rx Last Taken Unknown] scopolamine base 1 mg over 3 days transdermal patch 1 patch transdermal Q72H NAUSEA #10 ea 02/02/23 [Rx Last Taken Unknown] furosemide 40 mg tablet 40 mg PO DAILY WATER PILL 02/07/23 [History Last Taken 02/06/23] rifaximin 550 mg tablet (Xifaxan) 550 mg PO BID DEPRESSION 02/07/23 [History Last Taken 02/06/23] sertraline 100 mg tablet 100 mg PO QHS DEPRES 02/12/23 [History Last Taken Unknown] sertraline 50 mg tablet (Zoloft) 150 mg PO DAILY 02/12/23 [History Last Taken Unknown] thiamine HCl (vitamin B1) 100 mg tablet (Vitamin B-1) 200 mg (2 x 100 mg) PO BID VITAMIN #60 tabs 03/03/23 [Rx Last Taken Unknown] Allergy/AdvReac Type Severity Reaction Status Date / Time pioglitazone Allergy Mild liver Verified 04/22/23 04:26 damange Family History Other CVA (cerebral vascular accident) Cancer Cirrhosis Heart disease Hypertension Thyroid disorder Surgical History History of esophagogastroduodenoscopy (EGD) History of surgery Social History (Updated 04/22/23 @ 13:43 by Kirstin Retana) housing: homeless 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 Smoking Status: Current every day smoker tobacco type: cigarettes and pipe alcohol intake: former substance use type: does not use what type of physical activity do you participate in: other frequency: 1-2 times per week ROS Constitutional Constitutional: Denies change in weight, chills, fatigue, fever(s) or weakness Eyes Eyes: Denies change in vision Cardiovascular Cardiovascular: Denies chest pain, dyspnea on exertion, edema, lightheadedness, palpitations or syncope Respiratory/Chest Respiratory/Chest: Denies cough Gastrointestinal Gastrointestinal: Denies abdominal pain, constipation, diarrhea, nausea or vomiting Genitourinary Genitourinary: Denies dysuria Neurologic Neurologic: Reports abnormal gait; Denies confusion, dizziness, focal weakness, headache(s), numbness, paresthesias or tremor(s) Psychiatric Psychiatric: Denies anxiety or depression Vital Signs Vital Signs Vital Signs: 04/22/23 13:39 04/22/23 13:43 Temperature 98.7 F Temperature Source Temporal Pulse Rate 96 Respiratory Rate 24 H Respiratory Effort Normal Respiratory Pattern Normal Blood Pressure 126/64 H Blood Pressure Mean 84 Pulse Ox 97 Oxygen Delivery Method Room Air Weight Weight: 74.1 kg Body Mass Index (BMI) 24.1 Physical Exam Const alert Constitutional Narrative: Middle-age male, appears older than stated age, laying comfortably in bed, no acute distress. Appears to be oriented, answering questions appropriately. General Appearance: cooperative and comfortable HEENT normocephalic, head/scalp atraumatic, hearing grossly normal bilaterally, nasal mucous membranes and turbinates normal and moist oral mucous membranes Eyes PERRL, EOMs intact bilaterally and conjunctivae normal Neck full ROM, no lymphadenopathy and supple Lymph Lymphatic: no lymphadenopathy noted Chest inspection of chest normal Resp normal respiratory effort, normal air movement, no use of accessory muscles and clear to auscultation bilaterally Cardio regular rate, regular rhythm, no murmurs and peripheral pulses 2+ throughout GI normal to inspection, nondistended, normoactive bowel sounds, soft to palpation, non-tender and non-distended Back/Spine normal ROM Extremity normal to inspection, full ROM and no pedal edema Skin no rashes or lesions noted Neuro moves all extremities and no focal motor deficits Neuro Narrative: Asterixis noted. Speech: speech normal Motor Exam: strength 5/5 throughout Results Lab / Micro Data 04/22/23 14:30 04/22/23 14:30 Labs: Laboratory Results - last 24 hr 04/22/23 14:30: WBC 5.4, RBC 2.87 L, Hgb 9.0 L, Hct 28.1 L, MCV 97.9 H, MCH 31.4, MCHC 32.0, RDW Std Deviation 58.4 H, RDW Coeff of Kaela 16.1 H, Plt Count 70 L, MPV 10.3, Immature Gran % (Auto) 0.400, Neut % (Auto) 76.9 H, Lymph % (Auto) 12.5 L, [place] % (Auto) 9.1, Eos % (Auto) 0.7, Baso % (Auto) 0.4, Absolute Neuts (auto) 4.1, Absolute Lymphs (auto) 0.67 L, Nucleated RBC % 0, PT 19.9 H, INR 1.7, Sodium 139, Potassium 3.7, Chloride 108 H, Carbon Dioxide 25.0, Anion Gap 6, BUN 13, Creatinine 0.83, Estim Creat Clear Calc 107.66, Est GFR (MDRD) Af Amer 127, Est GFR (MDRD) Non-Af 105, BUN/Creatinine Ratio 15.7, Glucose 108 H, Calcium 8.1 L, Ammonia 94.0 H, Lipase 50, Ethyl Alcohol < 3.0 04/22/23 14:36: Ur Drug Screen Comment Radiology Impression Knee X-Ray 04/22/23 14:13 IMPRESSION: No evidence of acute fracture or dislocation. Electronically Signed: Everardo Jon MD at 15:03 EDT , Assessment & Plan Assessment/Plan (1) Hepatic encephalopathy: PLAN: Plan Patient is a 48-year-old male with history of alcoholic cirrhosis with hepatic encephalopathy, former alcohol use disorder, tobacco use disorder, anemia, thrombocytopenia, depression/anxiety and homelessness who presented to [facility] ED on 04/22/2023 for multiple falls. 1. Falls in setting of suspected hepatic encephalopathy, homelessness Currently living in hotel. Initially came to ED on morning of 04/22 after a fall there, work-up was negative, discharged home. Was then walking around a [employer] and fell again. Patient denies hitting his head or loss of consciousness. Main concern is right knee pain, right knee x-ray was negative. Has not had any other imaging done to this point. Found to have an ammonia level of 94 in ED. On exam, he actually appears oriented and was answering questions appropriately, but his baseline is unknown to me. Patient is prescribed Xifaxan, not prescribed lactulose. Reports intermittent compliance with Xifaxan; suspect reason for mild hepatic encephalopathy is medication nonadherence. Denies any recent fevers or chills, abdominal pain or distention; abdomen does appear nondistended, nontender and with no fluid wave on my evaluation. Vitals unremarkable, WBC count normal, hemoglobin and platelets at baseline as noted below. ? Admit under inpatient status to [facility]. Given 1 dose of 20 g lactulose in the ED, will start 20 g lactulose 3 times daily plus home Xifaxan with goal to titrate to 2-3 soft bowel movements per day. CT head ordered to rule out intracranial bleed given fall with elevated INR and unknown if patient hit head. CT abdomen pelvis with IV contrast also ordered to rule out any intra-abdominal pathology that could be contributing to presentation. PT/OT/case management consulted. Daily labs. Continue home folate and thiamine. 2. History of alcoholic cirrhosis with chronic anemia and thrombocytopenia Diagnosed with cirrhosis in 09/2021. Presumed secondary to alcohol use disorder. Has been sober from alcohol for about 3 years. Hemoglobin 9.0 on admit, baseline around 8-9. Platelets 70 on admit, baseline around 60-80. INR 1.7. ? Monitor. Daily CBC and INR. Continue home Lasix 40 mg daily, folate and thiamine as above. Chronic medical conditions: ? Depression/anxiety: Continue home sertraline, Abilify, trazodone as needed. DVT prophylaxis: Lovenox CODE STATUS: Full code, unverified Expected disposition: Home, 2 to 3 days Total clinical time spent by myself addressing the patient's medical issues, reviewing all the data, and collaborating with patient's care team: 55 minutes. Charges/Coding Visit Charges Inpatient E&M: 72481 Init Hosp L2
[2023-04-22 15:48] LABS: Magnesium 1.7 mg/dL (1.6-2.6)
[2023-04-22] MEDS: Lactulose 20 GM/30 ML UDC PO ×2 (15:52→21:14)
[2023-04-22 15:53] VITALS: BP 117/72; RESP 16; O2SAT 98
[2023-04-22 15:54] LABS: Mucous, Urine 0 SEEN /hpf (<or=2+); Red Blood Cells-Urine 0 SEEN /hpf (0-5); Squamous Epithelial Cells - UA 0 SEEN /hpf (0-5); White Blood Cells 0 SEEN /hpf (0-5)
[2023-04-22 16:02] LABS: Color, Urine Amber (Yellow); Glucose, Dipstick Normal (Normal); Ketone-Dipstick 5 mg/dl (Negative); Leukocyte Esterase-Dipstick 25 /ul (Negative); Nitrite-Dipstick Negative (Negative); Occult Blood-Urine Negative /ul (Negative); Protein-Dipstick 30 mg/dl (Negative); Specific Gravity, Urine 1.015 (1.002-1.030); Urine Bilirubin Dipstick 1 mg/dL (Negative); Urine Clarity Clear (Clear); Urine Urobilinogen 8 mg/dl (Normal); Urine pH 6.5 (5.0 - 8.0)
[2023-04-22 16:04] LABS: Bacteria RARE /hpf (None Seen)
[2023-04-22 16:06] LABS: Amphetamine Urine VISTA NEGATIVE (<1000 ng/mL); Barbiturate Urine VISTA NEGATIVE (< 200 ng/mL); Benzodiazepine Urine VISTA NEGATIVE (< 200 ng/mL); Cocaine Urine VISTA NEGATIVE (< 300 ng/mL); Ecstacy Urine VISTA NEGATIVE (< 500 ng/mL); Methadone Urine VISTA NEGATIVE (< 300 ng/mL); PCP Urine VISTA NEGATIVE (< 25 ng/mL); THC Urine VISTA POSITIVE (< 50 ng/mL); Vista UDS pH Range 7
--- NOTE | 2023-04-22 16:16 | CT_ITS ---
INDICATION: Fall with elevated INR EXAMINATION: CT BRAIN - CT Head or Brain W/O Contrast Injection TECHNIQUE: Multiple axial images were obtained of the head without intravenous contrast. A radiation dose optimization technique was used for this scan. IV Contrast dosage and agent: None. COMPARISON: FINDINGS: BRAIN PARENCHYMA: No intra- or extra-axial hemorrhage. No evidence of acute infarct. No intracranial mass or mass effect. Posterior fossa structures are unremarkable. CSF SPACES: Appropriate for age. No hydrocephalus. Basal cisterns are patent. CALVARIUM, SKULL BASE, PARANASAL SINUSES AND MASTOID AIR CELLS: Clear. No acute fracture. ORBITS: Both globes, extraocular muscles, optic nerves and retrobulbar fat appear unremarkable. CT/Brain/Head without Contrast IMPRESSION: No acute intracranial findings. Electronically Signed: Matty Kat MD at 18:09 EDT ,
--- NOTE | 2023-04-22 16:17 | CT_ITS ---
INDICATION: Found unresponsive, elevated INR, known alcoholic cirrhosis EXAMINATION: CT ABDOMEN AND PELVIS WITH CONTRAST - CT Abdomen And Pelvis W/ Contrast Injection TECHNIQUE: Helically acquired images were obtained of the abdomen and pelvis following IV contrast. A radiation dose optimization technique was used for this scan. IV Contrast dosage and agent: 100 cc [id number] Oral contrast: None. COMPARISON: 02/22/2023 FINDINGS: LOWER CHEST: Lung bases are clear. No cardiomegaly or pericardial effusion. LIVER: Stable cirrhotic appearance. No concerning focal mass. GALLBLADDER AND BILIARY TREE: No calcified gallstones. No gallbladder distension or wall edema. No intra- or extrahepatic biliary ductal dilation. PANCREAS: No focal cystic or solid mass. SPLEEN: Stable splenomegaly. ADRENAL GLANDS: No nodules. KIDNEYS AND URETERS: Normal renal size and position. No hydronephrosis. PERITONEUM: No ascites or free air. BOWEL: No evidence of acute appendicitis. No stomach or bowel distension. No focal inflammatory change. LYMPH NODES: No enlarged mesenteric or retroperitoneal lymph nodes. VESSELS: Aorta is non-dilated. Stable extensive upper abdominal varices. Stable abnormal appearance of the main portal vein, probable cavernous transformation. URINARY BLADDER: Unremarkable. REPRODUCTIVE ORGANS: No pelvic masses. ABDOMINAL WALL: No discrete abdominal or pelvic wall hernia. BONES: No acute or aggressive abnormality. CT/Abdomen/Pelvis WITH Contrast IMPRESSION: No acute findings in the abdomen or pelvis, no significant interval change from the prior study. Hepatic cirrhosis with probable portal hypertension. Electronically Signed: Matty Kat MD at 18:18 EDT ,
[2023-04-22 16:37] LABS: Hemoglobin A1c < 3.8 % (3.8-5.6)
[2023-04-22 18:23] VITALS: PULSE 82; BMI 25.0
[2023-04-22 18:30] VITALS: BP 139/76; PULSE 82; RESP 18; TEMP 37.2; O2SAT 100
--- NOTE | 2023-04-22 19:14 | NURSING ---
attempt to contact Rosemary [email or web address]) @ [phone] unsucessful-no answer and voice mail box full
[2023-04-22 19:43] LABS: AST(SGOT) 78 U/L (15-37); Alanine Aminotransfer ALT/SGPT 39 U/L (16-61); Albumin, Serum 2.9 g/dL (3.2-5.0); Alkaline Phosphatase 210 U/L (45-117); Bilirubin, Direct 1.46 mg/dL (0.00-0.30); Globulin 3.2 g/dL (2.2-4.2); Protein, Total 6.1 g/dL (6.4-8.2)
[2023-04-22 20:45] VITALS: BP 117/62; PULSE 79; RESP 16; TEMP 36.9; O2SAT 100
[2023-04-22] MEDS: Scopolamine 1mg/72hr Patch 1 PATCH TD (21:13)
[2023-04-22] MEDS: ARIPiprazole 2 MG Tablet PO (21:13)
[2023-04-22] MEDS: rifAXIMin 550 MG Tablet PO (21:14)
[2023-04-22] MEDS: traZODone 50 MG Tablet PO (23:26)
[2023-04-22] MEDS: hydrOXYzine PAM 25 MG Capsule 50 MG PO (23:27)
[2023-04-23] MEDS: traZODone 50 MG Tablet PO ×2 (00:20→21:26)
[2023-04-23] MEDS: hydrOXYzine PAM 25 MG Capsule 50 MG PO ×2 (00:20→21:26)
[2023-04-23 03:38] VITALS: BP 103/60; PULSE 74; RESP 16; TEMP 36.7; O2SAT 99
[2023-04-23] MEDS: Lactulose 20 GM/30 ML UDC PO ×2 (05:43→21:26)
[2023-04-23] MEDS: Folic Acid 1 MG Tablet PO (08:44)
[2023-04-23] MEDS: Furosemide 40 MG Tablet PO (08:45)
[2023-04-23] MEDS: Thiamine Hydrochloride 100 MG Tablet PO (08:45)
[2023-04-23] MEDS: rifAXIMin 550 MG Tablet PO ×2 (08:46→21:26)
[2023-04-23] MEDS: Pantoprazole Sodium 40 MG Tablet PO (08:46)
[2023-04-23] MEDS: Sertraline 50 MG Tablet 150 MG PO (08:48)
[2023-04-23 09:40] VITALS: BP 113/68; PULSE 79; RESP 18; TEMP 36.7; O2SAT 100
--- NOTE | 2023-04-23 16:06 | PN.HOSP_ITS ---
Reason for Visit Reason for Visit: Diagnoses Hepatic failure, unspecified without coma (04/22/23) Subjective Subjective Patient was seen and examined today, he exhibits some mild confusion, I talked with his guardian who wants him to go into an extended care facility, she states that he has multiple medical problems and does not take his medications as directed. She states that he will agree to go to an extended care facility. Objective Data Objective Data Vital Signs: Vital Signs Temp Pulse Resp BP Pulse Ox O2 Del Method 98.1 F 79 18 113/68 100 Room Air 04/23/23 09:40 04/23/23 09:40 04/23/23 09:40 04/23/23 09:40 04/23/23 09:40 04/23/23 09:40 Oxygen Delivery Method Room Air Weight: 76.8 kg Body Mass Index (BMI) 25.0 Intake & Output: Intake and Output for Last 24 Hours 04/21/23 04/22/23 04/23/23 23:59 23:59 23:59 Intake Total 1400 / 1400 1050 / 1050 Balance 1400 / 1400 1050 / 1050 Lab / Micro Data 04/22/23 14:30 04/22/23 14:30 Labs: Laboratory Results - last 24 hr 04/22/23 14:30: Hemoglobin A1c < 3.8 L, Total Bilirubin 3.50 H, Direct Bilirubin 1.46 H, AST 78 H, ALT 39, Alkaline Phosphatase 210 H, Total Protein 6.1 L, Albumin 2.9 L, Globulin 3.2 04/22/23 14:36: Urine Opiates Screen NEGATIVE, Urine Methadone Screen NEGATIVE, Ur Barbiturates Screen NEGATIVE, Ur Phencyclidine Scrn NEGATIVE, Ur Amphetamines Screen NEGATIVE, MDMA (Ecstasy) Screen NEGATIVE, U Benzodiazepines Scrn NEGATIVE, Urine Cocaine Screen NEGATIVE, U Cannabinoids Screen POSITIVE H Radiography Diagnostic Testing: Radiology Impression Brain CT 04/22/23 16:16 IMPRESSION: No acute intracranial findings. Electronically Signed: Matty Kat MD at 18:09 EDT , Abdomen/Pelvis CT 04/22/23 16:17 IMPRESSION: No acute findings in the abdomen or pelvis, no significant interval change from the prior study. Hepatic cirrhosis with probable portal hypertension. Electronically Signed: Matty Kat MD at 18:18 EDT , Physical Exam Const alert, oriented x3, no apparent distress and average body habitus General Appearance: cooperative, well kempt and well developed Orientation / Consciousness: awake, oriented to person and oriented to place HEENT normocephalic, head/scalp atraumatic and moist oral mucous membranes Eyes PERRL, EOMs intact bilaterally and conjunctivae normal Neck supple, no JVD, thyroid normal and no carotid bruits General: trachea midline Resp normal respiratory effort, no retractions, no use of accessory muscles and clear to auscultation bilaterally Auscultation: Negative for rales, rhonchi or wheezes Cardio regular rate, regular rhythm, S1 normal heart sound, S2 normal heart sound, no murmurs, no rub and no gallops GI normal to inspection, nondistended, normoactive bowel sounds, soft to palpation, non-tender and non-distended Extremity no clubbing, cyanosis or edema Skin no rashes or lesions noted General Skin Exam: no breakdown Neuro CN's II-XII intact bilaterally, no focal motor deficits and no sensory deficits noted Sensorium / Orientation: awake, alert, oriented to person and oriented to place Speech: speech normal Psych affect normal Assessment & Plan Assessment/Plan (1) History of cirrhosis of liver: PLAN: Plan 1. Hepatic encephalopathy-patient will continue on his present medications including lactulose and Xifaxan #2 generalized debility secondary to hepatic encephalopathy and alcoholic cirrhosis-PT and OT are seeing the patient, he will need placement in a care home facility for ongoing care #3 alcoholic cirrhosis-complicates care, medical course, recovery, and prognosis #4 chronic depression-patient is on Zoloft and Abilify #5 anemia-probably secondary to chronic liver disease, patient does not need a blood transfusion Total clinical time spent by myself addressing the patient's medical issues, reviewing all the data, and collaborating with patient's care team: 25 minutes Charges/Coding Visit Charges Inpatient E&M: 62634 Subs Hosp L1
[2023-04-23 21:00] VITALS: BP 116/69; PULSE 74; RESP 18; TEMP 36.6; O2SAT 98
[2023-04-23] MEDS: ARIPiprazole 2 MG Tablet PO (21:26)
--- NOTE | 2023-04-24 01:19 | NURSING ---
Pt came out to nurses' station at 0100, fully clothed and with his shoes on, stating that he is ready to be discharged now and he needs to get going. Charge nurse requested that pt return to his room and pt entered the doorway of a room, that was not his but was averted by staff. This nurse guided Александр into his room with assistance from staff. Pt's gait was steady. This nurse reminded Александр, as was discussed at the beginning of the shift, of his plan to potentially discharge to a nursing facility. Александр verbalized understanding and states that if that falls through [facility] at [facility]. Pt reports that he is really hungry, and multiple snacks were given to patient at this time, in addition to the 2 bags of snacks given at the start of the shift, per his request.
--- NOTE | 2023-04-24 01:39 | NURSING ---
scop patch in place behind patient's left ear
[2023-04-24 02:51] VITALS: BP 122/59; PULSE 75; RESP 14; TEMP 36.7; O2SAT 99
[2023-04-24] MEDS: hydrOXYzine PAM 25 MG Capsule 50 MG PO ×3 (03:02→14:51)
[2023-04-24] MEDS: Lactulose 20 GM/30 ML UDC PO ×3 (05:29→20:16)
--- NOTE | 2023-04-24 05:37 | NURSING ---
Nurse entered room and noticed pt saline lock sitting on his bedside table. Pt notified this nurse that he has been hallucinating. He states that he thought that the doctor was in the room talking to him and he was replying. He states that he thought that the doctor discharged him and he was preparing to leave. He notified this nurse that he hallucinated that this nurse entered his room and asked if he would like a cupcake and he said yes but the cupcake never came and he realizes this did not happen.
[2023-04-24 06:54] LABS: ALB/GLOB Ratio 0.8 RATIO (0.9-2.4); AST(SGOT) 141 U/L (15-37); Alanine Aminotransfer ALT/SGPT 50 U/L (16-61); Albumin, Serum 2.4 g/dL (3.2-5.0); Alkaline Phosphatase 234 U/L (45-117); Anion Gap 6 (5-15); BUN 12 mg/dL (7-18); Chloride 110 mmol/L (98-107); Creatinine, Serum 0.71 mg/dL (0.70-1.30); EST Glomerular Filtration Rate 126 mL/min (>60); Est Glom Filt Rate - Afr Amer 153 mL/min (>60); Estimated Creatinine Clearance 125.85 ml/min; Globulin 3.1 g/dL (2.2-4.2); Glucose 126 mg/dL (74-106); Potassium 3.8 mmol/L (3.5-5.1); Protein, Total 5.5 g/dL (6.4-8.2); Sodium Level 141 mmol/L (136-145)
[2023-04-24] MEDS: Thiamine Hydrochloride 100 MG Tablet PO ×2 (08:24→18:36)
[2023-04-24] MEDS: Folic Acid 1 MG Tablet PO (08:24)
[2023-04-24] MEDS: Furosemide 40 MG Tablet PO (08:32)
[2023-04-24] MEDS: Pantoprazole Sodium 40 MG Tablet PO (08:32)
[2023-04-24] MEDS: rifAXIMin 550 MG Tablet PO ×2 (08:32→20:16)
[2023-04-24] MEDS: Sertraline 50 MG Tablet 150 MG PO (08:32)
[2023-04-24 09:00] VITALS: BP 119/77; PULSE 76; RESP 18; TEMP 36.8; O2SAT 100
--- NOTE | 2023-04-24 10:39 | CASEMGMT ---
Addendum entered by Abby Andrews 04/24/23 14:49: This PENNY MEDINA spoke w/Rosemary Castellano, pt's legal guardian. She states pe was @ [facility] for psych and states it was a poor discharge plan and he was abruptly discharged to a hotel from there. She states pt did not have his ID w/him when he arrived to the hotel (he had left it in the car), so the hotel would not accept him. Rosemary states pt is not able to take care of himself, stating he is not able to manage his meds and when he misses his meds for his liver, he then gets very confused. She states he is a hoarder, has suspicious behavior, unable to manage his finances, he let his SSI lapse, and has a lot of safety issues. She would like pt to discharge to a facility for long-term care. She states she does not have a preference of what facility he goes to and states she realizes it may be difficult finding someone to accept him, and to send referrals out to several locations to try to find a facility for him. Rosemary also requesting if someone can evaluate pt while he is @ [facility] for his cognitive issues, as she states she is concerned there may be something else going on medically that is being overlooked. KIRA Moore, made aware of the above. Original Note: PENNY MEDINA NOTE: Noted in pt's chart that he has a legal guardian that was appointed by the [facility], Rosemary Kasper. PH: [phone]. Call placed to Rosemary to discuss discharge plan. No answer. Left message for Rosemary to return call to this PENNY MEDINA or to Teresa MALONE. Phone numbers provided. Awaiting call back. Dipesh Andrews
--- NOTE | 2023-04-24 10:42 | PCM.PN.HOSP ---
Reason for Visit Reason for Visit: Diagnoses Hepatic failure, unspecified without coma (04/22/23) Personal history of other diseases of the digestive system (04/22/23) Subjective Subjective Patient was seen and examined today, he pulled out his IV-patient does not really need his IV however, he states he has a place to go and he is waiting to be discharged, I told him that his guardian has requested that he go to a facility so they could monitor his medications. Patient was okay with this. Objective Data Objective Data Vital Signs: Vital Signs Temp Pulse Resp BP Pulse Ox O2 Del Method 98.2 F 76 18 119/77 100 Room Air 04/24/23 09:00 04/24/23 09:00 04/24/23 09:00 04/24/23 09:00 04/24/23 09:00 04/24/23 09:00 Oxygen Delivery Method Room Air Weight: 76.8 kg Body Mass Index (BMI) 25.0 Intake & Output: Intake and Output for Last 24 Hours 04/22/23 04/23/23 04/24/23 23:59 23:59 23:59 Intake Total 1400 / 1400 1050 / 1850 1600 / 1600 Balance 1400 / 1400 1050 / 1850 1600 / 1600 Lab / Micro Data 04/22/23 14:30 04/24/23 05:38 Labs: Laboratory Results - last 24 hr 04/24/23 05:38: Sodium 141, Potassium 3.8, Chloride 110 H, Carbon Dioxide 25.0, Anion Gap 6, BUN 12, Creatinine 0.71, Estim Creat Clear Calc 125.85, Est GFR (MDRD) Af Amer 153, Est GFR (MDRD) Non-Af 126, BUN/Creatinine Ratio 17.0, Glucose 126 H, Calcium 8.0 L, Total Bilirubin 2.40 H, AST 141 H, ALT 50, Alkaline Phosphatase 234 H, Total Protein 5.5 L, Albumin 2.4 L, Globulin 3.1, Albumin/Globulin Ratio 0.8 L Physical Exam Const alert, no apparent distress, average body habitus and healthy appearing General Appearance: cooperative, well kempt and well developed Orientation / Consciousness: awake, oriented to person and oriented to place HEENT normocephalic and moist oral mucous membranes Eyes PERRL, EOMs intact bilaterally and conjunctivae normal Neck supple, no JVD, thyroid normal and no carotid bruits General: trachea midline Resp normal respiratory effort and clear to auscultation bilaterally Auscultation: Negative for rales, rhonchi or wheezes Cardio regular rate, regular rhythm, S1 normal heart sound, S2 normal heart sound, no rub and no gallops Cardio Narrative: There is a 2/6 systolic murmur noted at the apex and left sternal border GI normal to inspection, nondistended, normoactive bowel sounds, soft to palpation, non-tender and non-distended Extremity normal to inspection and no clubbing, cyanosis or edema Skin no rashes or lesions noted General Skin Exam: no breakdown Neuro CN's II-XII intact bilaterally, moves all extremities, no focal motor deficits and no sensory deficits noted Sensorium / Orientation: awake, alert, oriented to person and oriented to place Speech: speech normal Psych affect normal Assessment & Plan Assessment/Plan (1) History of cirrhosis of liver: PLAN: Plan 1. Hepatic encephalopathy-patient will continue on his present medications including lactulose and Xifaxan #2 generalized debility secondary to hepatic encephalopathy and alcoholic cirrhosis-PT and OT are seeing the patient, he will need placement in a half-way facility for ongoing care to monitor the patient and administer medications #3 alcoholic cirrhosis-complicates care, medical course, recovery, and prognosis #4 chronic depression-patient is on Zoloft and Abilify #5 anemia-probably secondary to chronic liver disease, patient does not need a blood transfusion Total clinical time spent by myself addressing the patient's medical issues, reviewing all the data, and collaborating with patient's care team: 25 minutes Charges/Coding Visit Charges Inpatient E&M: 96317 [facility] L1
--- NOTE | 2023-04-24 14:42 | CHAPLAIN ---
Type of Pastoral Visit _x__ Initial Visit ___ Follow-up Visit ___ On-call Visit ___ General Patient Visit ___ Spiritual Assessment ___ Family Conference ___ Bereavement ___ Rapid Response ___ Code Blue ___ Other (describe below) Pastoral Care Referral From _x__ Patient ___ Family ___ Nurse ___ Physician ___ Child Care Associate ___ Promotions Coordinator ___ Other (describe below) Sacrament/Intervention _x__ Active listening ___ Anointing ___ Taoism ___ Bereavement ___ Communion _x__ Sloane exploration ___ _x__ Life review _x__ Prayer ___ Reconciliation ___ Sacrament of Sick _x__ Supportive presence ___ Wedding ___ Other (describe below) Pastoral Comments patient is dressed and ready to leave; pt doesn't know when he is leaving and his business case analyst/ride is not available at this time; pt has been seen before and he now reviews his most recent family changes and the hospitalizations; pt has concerns that his daughter has not been in contact; pt states that there have been many unfortunate events in his life most recently; pt does indicate that his sloane in God is strong and that he has a new fiancee for support; pt welcomes time to talk and a prayer; pt also prays for himself at this time
[2023-04-24 15:00] VITALS: BP 116/70; PULSE 75; RESP 18; TEMP 36.7; O2SAT 99
--- NOTE | 2023-04-24 15:08 | CASEMGMT ---
Discharge Planning A list of?SNFproviders including quality and resource use data and consistent with the patient's preferred geographic region, medical needs, and insurance network was created from [facility] website.? This list was provided to the SW. Sandra Springer Discharge Planning Asst.
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
[2023-04-24 20:06] VITALS: BP 131/62; PULSE 90; RESP 18; TEMP 37.1; O2SAT 99
[2023-04-24] MEDS: hydrOXYzine PAM 25 MG Capsule 75 MG PO (20:15)
[2023-04-24] MEDS: ARIPiprazole 2 MG Tablet PO (20:16)
[2023-04-24] MEDS: traZODone 50 MG Tablet 100 MG PO (20:16)
--- NOTE | 2023-04-24 21:24 | NURSING ---
Pt very agitated at start of shift and states he has to get out of here. He said that his guardian said he could be discharged as he was able to obtain a hotel room. Notified that he is unable to go because this has to be cleared through case management and they will not be here until tomorrow. Pt became very upset and notified this nurse he was leaving AMA. This nurse notified him that he could not as his guardian must approve of plan and at this point staff is working on getting him into a facility. Pt calmed down. Notified this nurse his girlfriend has been waiting on him in the parking lot for 4 hours and said he had to go downstairs for one minute. Nurse notified him that he could not but that he could call her and she could come up to visit him.
--- NOTE | 2023-04-25 02:41 | NURSING ---
SCOP PATCH IN PLACE BEHIND PT'S LEFT EAR
[2023-04-25 05:46] VITALS: BP 115/68; PULSE 76; RESP 16; TEMP 36.6; O2SAT 99
[2023-04-25] MEDS: hydrOXYzine PAM 25 MG Capsule 75 MG PO ×2 (05:47→20:57)
[2023-04-25] MEDS: Lactulose 20 GM/30 ML UDC PO ×3 (05:47→20:50)
[2023-04-25 09:34] VITALS: BP 115/55; PULSE 78; RESP 16; TEMP 37.1; O2SAT 99
[2023-04-25] MEDS: Folic Acid 1 MG Tablet PO (09:36)
[2023-04-25] MEDS: Furosemide 40 MG Tablet PO (09:36)
[2023-04-25] MEDS: Thiamine Hydrochloride 100 MG Tablet PO ×2 (09:36→17:08)
[2023-04-25] MEDS: Enoxaparin 40 MG/0.4 ML Syringe SC (09:36)
[2023-04-25] MEDS: Pantoprazole Sodium 40 MG Tablet PO (09:37)
[2023-04-25] MEDS: Sertraline 50 MG Tablet 150 MG PO (09:37)
[2023-04-25] MEDS: rifAXIMin 550 MG Tablet PO ×2 (09:37→20:50)
--- NOTE | 2023-04-25 09:47 | PCM.PN.HOSP ---
Reason for Visit Reason for Visit: Diagnoses Hepatic failure, unspecified without coma (04/22/23) Personal history of other diseases of the digestive system (04/22/23) Subjective Subjective Patient was seen and examined today, he is alert, we are awaiting approval for him to go to an extended care facility. I have decided to change his Abilify to every morning rather than give it at bedtime. Objective Data Objective Data Vital Signs: Vital Signs Temp Pulse Resp BP Pulse Ox O2 Del Method 98.8 F 78 16 115/55 L 99 Room Air 04/25/23 09:34 04/25/23 09:34 04/25/23 09:34 04/25/23 09:34 04/25/23 09:34 04/25/23 09:34 Oxygen Delivery Method Room Air Weight: 76.8 kg Body Mass Index (BMI) 25.0 Intake & Output: Intake and Output for Last 24 Hours 04/23/23 04/24/23 04/25/23 23:59 23:59 23:59 Intake Total 1050 / 1850 1600 / 1600 500 / 500 Balance 1050 / 1850 1600 / 1600 500 / 500 Lab / Micro Data 04/22/23 14:30 04/24/23 05:38 Physical Exam Narrative alert, no apparent distress, average body habitus and healthy appearing General Appearance: cooperative, well kempt and well developed Orientation / Consciousness: awake, oriented to person and oriented to place HEENT normocephalic and moist oral mucous membranes Eyes PERRL, EOMs intact bilaterally and conjunctivae normal Neck supple, no JVD, thyroid normal and no carotid bruits General: trachea midline Resp normal respiratory effort and clear to auscultation bilaterally Auscultation: Negative for rales, rhonchi or wheezes Cardio regular rate, regular rhythm, S1 normal heart sound, S2 normal heart sound, no rub and no gallops Cardio Narrative: There is a 2/6 systolic murmur noted at the apex and left sternal border GI normal to inspection, nondistended, normoactive bowel sounds, soft to palpation, non-tender and non-distended Extremity normal to inspection and no clubbing, cyanosis or edema Skin no rashes or lesions noted General Skin Exam: no breakdown Neuro CN's II-XII intact bilaterally, moves all extremities, no focal motor deficits and no sensory deficits noted Sensorium / Orientation: awake, alert, oriented to person and oriented to place Speech: speech normal Psych affect normal Assessment & Plan Assessment/Plan (1) History of cirrhosis of liver: PLAN: Plan 1. Hepatic encephalopathy-patient will continue on his present medications including lactulose and Xifaxan #2 generalized debility secondary to hepatic encephalopathy and alcoholic cirrhosis-PT and OT are seeing the patient, he will need placement in a assisted facility for ongoing care to monitor the patient and administer medications, we are currently awaiting approval for this #3 alcoholic cirrhosis-complicates care, medical course, recovery, and prognosis #4 chronic depression-patient is on Zoloft and Abilify #5 anemia-probably secondary to chronic liver disease, patient does not need a blood transfusion Total clinical time spent by myself addressing the patient's medical issues, reviewing all the data, and collaborating with patient's care team: 25 minutes Charges/Coding Visit Charges Inpatient E&M: 51224 Subs Hosp L1
[2023-04-25] MEDS: ARIPiprazole 2 MG Tablet PO (11:13)
--- NOTE | 2023-04-25 13:22 | CASEMGMT ---
Discharge Planning Referral sent via [facility] to Juan Olson, Kacey Reich, and [facility]. Sandra Springer, Discharge Planning Asst.
--- NOTE | 2023-04-25 13:32 | CASEMGMT ---
Social Work KIRA spoke with pt's legal Guardian Rosemary Castellano regarding plan of care moving forward. KIRA requested guardianship papers be sent . Documents emailed to KIRA and placed on pt chart. Per Rosemary, an extension of the guardianship has been submitted to the probate court and the request has been turned over to [employer] Artist Saurabh with determination expected soon. Rosemary feels pt would benefit from ECF placement. KIRA spoke with Rosemary regarding jail, however, due to medical issues, Rosemary does not think this is a good fit. Rosemary feels initial placement in ECF to regulate pt's medications will then enable pt to go to an assisted living. Preferred providers are [facility], [facility] and [facility]. Rosemary states pt has not been taking his medications correctly resulting in delirium which leads to falls and inability to care for himself. Pt has been evicted from his home and is currently homeless. Pt has been to multiple mental health hospitals and guardian feels that pt's condition is related to medical/cognitive issues and not mental health. KIRA advised Rosemary that situation has been discussed with physician. Rosemary requesting Brain CT and KIRA updated physician. Referrals to be made to preferred facilities. MELISSA Bailey
--- NOTE | 2023-04-25 13:41 | CT_ITS ---
HISTORY: confusion. TECHNIQUE: Multiple axial images were obtained of the head without intravenous contrast. A radiation dose optimization technique was used for this scan. 250 images. COMPARISON: 04/22/2023. FINDINGS: BRAIN PARENCHYMA: No significant attenuation abnormality. No acute intra-axial hemorrhage. CSF SPACES: Cerebral ventricles, cortical sulci, and other extra-axial CSF spaces within normal limits in size for age. No midline shift or other significant mass effect. No acute extra-axial hemorrhage. OTHER: Intact calvarium. No significant air fluid levels in the paranasal sinuses or mastoid air cells. Unremarkable orbits. CT/Brain/Head without Contrast IMPRESSION: No acute intracranial process identified. Electronically Signed: Ameena Maradiaga MD at 14:21 EDT ,
--- NOTE | 2023-04-25 14:19 | CASEMGMT ---
Addendum entered by Linda Lee 04/25/23 15:52: Social Work SW called back into pt room and pt requested SW speak with Rosemary who is on the phone. Pt asking Rosemary to allow him to leave the hospital and go to a hotel. SW spoke with Rosemary and updated her, with pt present, that [facility] no beds and [facility] and [facility] are checking on insurance coverage. Rosemary states pt is not safe to leave the hospital. Pt frustrated with decision but willing to stay for ECF placement at this time. MELISSA Bailey Original Note: Social Work Pt requesting to see SW. SW met with pt and introduced self and role of SW. Pt inquiring if SW had talked to juanito Riley. SW confirmed this and discussed discharge plan of going to a ECF for medication management. Pt is aware of this plan and was agreeable. Pt stating his girlfriend, who lives in [place], is on her way and he could go home with her or to a hotel. KIRA reinforced the plan to stay at the hospital until ECF placement is arranged. Pt expressing understanding of this although unhappy. Pt stating he will call his guardian to discuss discharge plan. MELISSA Bailey
[2023-04-25 14:30] VITALS: BP 113/54; PULSE 79; RESP 16; TEMP 36.8; O2SAT 98
--- NOTE | 2023-04-25 14:36 | PN.HOSP_ITS ---
Hospitalist Note I was contacted by social services coordinator here in the hospital, social services coordinator had a conversation with the patient's guardian today-the patient's guardian feels that he could have a neurological issue or an unknown medical condition causing his behavioral issues, she requested that a CT of the brain be performed, I did this this afternoon and it did not show any acute disease. This was relayed to the patient's guardian.
--- NOTE | 2023-04-25 15:54 | CASEMGMT ---
Discharge Planning Referral sent to [facility], [facility], and [facility] via [facility]. Sandra Springer, Discharge Planning Asst.
[2023-04-25 20:39] VITALS: BP 114/62; PULSE 72; RESP 16; TEMP 36.6; O2SAT 100
[2023-04-25] MEDS: Scopolamine 1mg/72hr Patch 1 PATCH TD (20:50)
[2023-04-25] MEDS: traZODone 50 MG Tablet 100 MG PO (20:57)
--- NOTE | 2023-04-26 02:40 | NURSING ---
RN walked into patient room for first rounds. Patient showed RN his arm, which had an abrasion with minimal drainiage and said I cut my arm with a knife. It helps relieve my anxiety. This RN asked which knife he used and he said his butterknife from his tray. Patient proceeded to lick the abrasion from the knife. RN found knife and placed it on tray to take to soiled utility. Applied bandage on abrasion to prevent licking. Placed on finger food diet.
[2023-04-26 04:30] VITALS: BP 124/63; PULSE 81; RESP 16; TEMP 36.3; O2SAT 100
[2023-04-26] MEDS: Lactulose 20 GM/30 ML UDC PO ×3 (04:31→21:03)
[2023-04-26] MEDS: Sertraline 50 MG Tablet 150 MG PO (07:54)
[2023-04-26] MEDS: ARIPiprazole 2 MG Tablet PO (07:54)
[2023-04-26] MEDS: Folic Acid 1 MG Tablet PO (07:54)
[2023-04-26] MEDS: Thiamine Hydrochloride 100 MG Tablet PO ×2 (07:54→17:22)
[2023-04-26] MEDS: Furosemide 40 MG Tablet PO (07:54)
[2023-04-26] MEDS: Pantoprazole Sodium 40 MG Tablet PO (07:55)
[2023-04-26] MEDS: rifAXIMin 550 MG Tablet PO ×2 (07:55→21:04)
[2023-04-26 08:39] VITALS: BP 110/54; PULSE 75; RESP 16; TEMP 36.7; O2SAT 97
--- NOTE | 2023-04-26 09:28 | PCM.PN.HOSP ---
Reason for Visit Reason for Visit: Diagnoses Hepatic failure, unspecified without coma (04/22/23) Personal history of other diseases of the digestive system (04/22/23) Subjective Subjective Insists that's he going somewhere. Objective Data Objective Data Vital Signs: Vital Signs Temp Pulse Resp BP Pulse Ox O2 Del Method 36.7 C 75 16 110/54 L 97 Room Air 04/26/23 08:39 04/26/23 08:39 04/26/23 08:39 04/26/23 08:39 04/26/23 08:39 04/26/23 08:39 Oxygen Delivery Method Room Air Weight: 76.8 kg Body Mass Index (BMI) 25.0 Intake & Output: Intake and Output for Last 24 Hours 04/24/23 04/25/23 04/26/23 23:59 23:59 23:59 Intake Total 1600 / 1600 500 / 900 600 / 600 Balance 1600 / 1600 500 / 900 600 / 600 Lab / Micro Data 04/22/23 14:30 04/24/23 05:38 Radiography Diagnostic Testing: Radiology Impression Brain CT 04/25/23 13:41 IMPRESSION: No acute intracranial process identified. Electronically Signed: Ameena Maradiaga MD at 14:21 EDT , Physical Exam Const alert, no apparent distress and average body habitus HEENT head/scalp atraumatic Resp normal respiratory effort GI normal to inspection, nondistended, normoactive bowel sounds Extremity normal to inspection Neuro oriented x3 Sensorium / Orientation: awake and alert Psych affect normal Assessment & Plan Assessment/Plan (1) Hepatic encephalopathy: PLAN: 2/2 medication non-compliance with rifaximin Head CT negative. continue rifaximin AND lactulose. (2) Debility: PLAN: Referrals sent to facilities. Pt under the care of a guardian, Kamra, who desires for the patient to go to a SNF. Awaiting on insurance authorization. PLAN: Plan Chronic conditions: alcoholic cirrhosis-complicates care, medical course, recovery, and prognosis chronic depression-patient is on Zoloft and Abilify anemia-probably secondary to chronic liver disease, patient does not need a blood transfusion Charges/Coding Visit Charges Inpatient E&M: 62311 Subs Hosp L2
--- NOTE | 2023-04-26 10:20 | CASEMGMT ---
Social Work SW received a copy of the pt's updated Guardianship papers naming [facility] as Guardian through 05/23/23. Copy placed on pt chart. Rosemary Castellano continues to be [employer] employee working as Guardian. KIRA spoke with Rosemary via email and updated on status of nursing facility search: [facility] - no beds [facility] - they are checking to see if they are in network with insurance [facility] - they are checking to see if they are in network with insurance.? Their sister facility [facility] is in network. [facility] - they are reviewing his information [facility] - they would like to make an on sight visit today [facility] - Declined, they feel he may be more appropriate for their sister facility [facility] in [place]. Rosemary agreeable for [facility] to do an on sight visit today, agreeable to referral to be sent to [facility] in [place]. 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 MELISSA Bailey
[2023-04-26 11:17] VITALS: BP 107/59; PULSE 80; RESP 16; TEMP 36.4; O2SAT 98
[2023-04-26] MEDS: hydrOXYzine PAM 25 MG Capsule 75 MG PO ×2 (13:45→21:04)
--- NOTE | 2023-04-26 13:58 | CHAPLAIN ---
Type of Pastoral Visit ___ Initial Visit _x__ Follow-up Visit ___ On-call Visit ___ General Patient Visit ___ Spiritual Assessment ___ Family Conference ___ Bereavement ___ Rapid Response ___ Code Blue ___ Other (describe below) Pastoral Care Referral From _x__ Patient ___ Family ___ Nurse ___ Physician ___ Automotive Painter ___ Wood Machinist ___ Other (describe below) Sacrament/Intervention _x__ Active listening ___ Anointing ___ Congregation ___ Bereavement ___ Communion ___ Sloane exploration ___ _x__ Life review _x__ Prayer ___ Reconciliation ___ Sacrament of Sick _x__ Supportive presence ___ Wedding ___ Other (describe below) Pastoral Comments
--- NOTE | 2023-04-26 15:03 | CASEMGMT ---
Discharge Planning Referral sent to [facility] via [facility]. Sandra Springer, Discharge Planning Asst.
[2023-04-26 15:16] VITALS: BP 118/57; PULSE 72; RESP 16; TEMP 36.8; O2SAT 100
--- NOTE | 2023-04-26 15:56 | CASEMGMT ---
Social Work SW met with pt to discuss discharge plan. Pt polite with the worker, asking if he could leave and go to a hotel and wait while skilled nursing placement is pursued. SW explained why this could not happen as pt will need to go directly from the hospital to the ECF. SW explained that SW has checked with multiple facilities and and has not found an accepting facility at this time but referrals are still being sent and looked into. Pt agreeable to continue to stay at [facility] and agreeable to ECF placement. SW spoke with Nichol Galvin, who is agreeable to referrals being sent to any facility who may be accepting. ECF Placement: [facility]: on site visit completed and KIRA spoke with Diana from [facility] regarding patient's situation. [facility] is in network with pt's insurance. Diana will speak with her team and notify KIRA if [facility] is able to accept. [facility]: No available beds. [facility]: Not in network [facility]: Not in network [facility]: Pt declined [facility]: [facility] in network with pt's insurance. [facility] is reviewing case and requesting to speak with pt's guardian. Information provided. Nichol Galvin updated. SW will continued to follow for ECF placement. Physician updated. Plan: [facility] vs [facility] MELISSA Bailey
[2023-04-26 21:00] VITALS: BP 119/55; PULSE 73; RESP 14; TEMP 37.1; O2SAT 100
[2023-04-26] MEDS: traZODone 50 MG Tablet 100 MG PO (21:03)
[2023-04-27 02:25] VITALS: BP 127/64; PULSE 65; RESP 12; TEMP 37; O2SAT 100
[2023-04-27] MEDS: Lactulose 20 GM/30 ML UDC PO ×3 (05:58→19:59)
--- NOTE | 2023-04-27 07:32 | PN.HOSP_ITS ---
Reason for Visit Reason for Visit: Diagnoses Hepatic failure, unspecified without coma (04/22/23) Other malaise (04/22/23) Personal history of other diseases of the digestive system (04/22/23) Subjective Subjective No events overnight. Objective Data Objective Data Vital Signs: Vital Signs Temp Pulse Resp BP Pulse Ox O2 Del Method 37.0 C 65 12 127/64 H 100 Room Air 04/27/23 02:25 04/27/23 02:25 04/27/23 02:25 04/27/23 02:25 04/27/23 02:25 04/27/23 02:25 Oxygen Delivery Method Room Air Weight: 76.8 kg Body Mass Index (BMI) 25.0 Intake & Output: Intake and Output for Last 24 Hours 04/25/23 04/26/23 04/27/23 23:59 23:59 23:59 Intake Total 500 / 900 1700 / 2500 940 / 940 Balance 500 / 900 1700 / 2500 940 / 940 Lab / Micro Data 04/22/23 14:30 04/24/23 05:38 Physical Exam Const alert and no apparent distress Neuro Sensorium / Orientation: awake and alert Assessment & Plan Assessment/Plan (1) Hepatic encephalopathy: PLAN: 2/2 medication non-compliance with rifaximin Head CT negative. continue rifaximin AND lactulose. (2) Debility: PLAN: Referrals sent to facilities. Pt under the care of a guardian, Kamar, who desires for the patient to go to a SNF. Awaiting on insurance authorization. PLAN: Plan Chronic conditions: * alcoholic cirrhosis-complicates care, medical course, recovery, and prognosis * chronic depression-patient is on Zoloft and Abilify * anemia-probably secondary to chronic liver disease, patient does not need a blood transfusion Charges/Coding Visit Charges Inpatient E&M: 98994 Subs Hosp L1
--- NOTE | 2023-04-27 08:30 | CASEMGMT ---
Discharge Planning Message sent via [facility] to [facility] to check on status of referral. Sandra Springer, Discharge Planning Asst.
[2023-04-27 09:15] VITALS: BP 122/68; PULSE 67; RESP 16; TEMP 36.3; O2SAT 100
[2023-04-27] MEDS: Sertraline 50 MG Tablet 150 MG PO (09:23)
[2023-04-27] MEDS: Folic Acid 1 MG Tablet PO (09:23)
[2023-04-27] MEDS: Thiamine Hydrochloride 100 MG Tablet PO ×2 (09:23→17:58)
[2023-04-27] MEDS: Furosemide 40 MG Tablet PO (09:24)
[2023-04-27] MEDS: ARIPiprazole 2 MG Tablet PO (09:24)
[2023-04-27] MEDS: rifAXIMin 550 MG Tablet PO ×2 (09:24→19:59)
[2023-04-27] MEDS: Pantoprazole Sodium 40 MG Tablet PO (09:24)
--- NOTE | 2023-04-27 14:07 | TREXTCAR_ITS ---
Diet Diet Order/Speech Therapy: 04/26/23 10:26 Diet: Carbohydrate Controlled Food consistency:: Finger Foods Is pt able to select menu?: Yes Diet Comments: all disposable Wound(s) left arm: Wound Type: Laceration Left lower arm: Wound Type: Laceration Therapies Weight Bearing: Full weight bearing Physical Therapy: Eval and Treat Occupational Therapy: Eval and Treat Problem/Diagnosis (1) Hepatic encephalopathy: Status: Acute Code(s): K72.90 - Hepatic failure, unspecified without coma Plan: 2/2 medication non-compliance with rifaximin Head CT negative. continue rifaximin AND lactulose. (2) Debility: Status: Acute Code(s): R53.81 - Other malaise Plan: Referrals sent to facilities. Pt under the care of a guardian, Kamar, who desires for the patient to go to a SNF. Awaiting on insurance authorization. Plan Chronic conditions: * alcoholic cirrhosis-complicates care, medical course, recovery, and prognosis * chronic depression-patient is on Zoloft and Abilify * anemia-probably secondary to chronic liver disease, patient does not need a blood transfusion Allergies/Procedures Done in Hospital Allergies pioglitazone Allergy (Mild, Verified 04/22/23 04:26) liver damange Procedures: None Type of Care/Length of Stay Estimated LOS: Convalescent Care Less Than 30 days Type of Care Needed: Skilled Rehab Potential: Good Prognosis: Good Additional Orders/Day of Discharge Day of Discharge: 04/27/23 Dietary and Speech Recommendations Dietitian Recommendations/Changes: Change to liberal CHO Control diet Available if changes in pt nutritional status and/ or desire for diet education Discharge Plan Admission Admit Date/Time: 04/22/23 15:27 Primary Reason for Your Visit: hepatic encephalopathy Attending Provider: Herbert Church Primary Care Provider: Ita Goddard Consulting Providers: Dev Joya; Grover Gonzalez Discharge Orders/Prescriptions Prescriptions: New lactulose 20 gram/30 mL Solution 20 g PO TID Qty: 0 0RF Continued pantoprazole 40 mg tablet,delayed release (DR/EC) 40 mg PO DAILY Rx Instructions: take 1 tablet by mouth once daily aripiprazole 2 mg tablet 2 mg PO QHS Patient Comments: take 1 tablet by mouth once daily promethazine 25 mg tablet 25 mg PO QHS PRN (Reason: nausea and vomiting) Qty: 30 0RF sertraline 100 mg tablet 100 mg PO QHS Patient Comments: TAKE 1 TABLET BY MOUTH EVERY DAY sertraline [Zoloft] 50 mg tablet 150 mg PO DAILY furosemide 40 mg tablet 40 mg PO DAILY Rx Instructions: take 1 tablet by mouth once daily Xifaxan 550 mg tablet 550 mg PO BID Rx Instructions: take 1 tablet by mouth twice a day folic acid 1 mg tablet 1 mg PO DAILY Qty: 90 3RF trazodone 50 mg tablet See Rx Instructions PO QHS PRN (Reason: sleep) Qty: 30 1RF Rx Instructions: May take 1/2 to 1 tablet nightly as needed scopolamine base 1 mg over 3 days patch 3 day 1 patch transdermal Q72H Qty: 10 2RF thiamine HCl (vitamin B1) [Vitamin B-1] 100 mg tablet 200 mg PO BID Qty: 60 0RF Referrals / Follow Up: Ita Goddard MD [Primary Care Provider] - Within 2 Weeks [facility] [Provider Group] - Within 1 Month [facility] [Provider Group] - 06/20/23 10:30 am Disposition Disposition (needs filled in before D/C Order can be placed): Custodial Facility
[2023-04-27 15:00] VITALS: BP 111/57; PULSE 70; RESP 18; TEMP 36.9; O2SAT 99
[2023-04-27 19:58] VITALS: BP 122/64; PULSE 72; RESP 14; TEMP 36.9; O2SAT 97
[2023-04-27] MEDS: traZODone 50 MG Tablet 100 MG PO (19:59)
[2023-04-27] MEDS: hydrOXYzine PAM 25 MG Capsule 75 MG PO (19:59)
[2023-04-28 05:00] VITALS: BP 110/63; PULSE 74; RESP 14; TEMP 37.2; O2SAT 97
[2023-04-28] MEDS: Lactulose 20 GM/30 ML UDC PO ×3 (06:06→23:38)
--- NOTE | 2023-04-28 07:21 | PN.HOSP_ITS ---
Reason for Visit Reason for Visit: Diagnoses Hepatic failure, unspecified without coma (04/22/23) Other malaise (04/22/23) Personal history of other diseases of the digestive system (04/22/23) Subjective Subjective Feeling well. No events overnight. Objective Data Objective Data Vital Signs: Vital Signs Temp Pulse Resp BP Pulse Ox O2 Del Method 37.2 C 74 14 110/63 97 Room Air 04/28/23 05:00 04/28/23 05:00 04/28/23 05:00 04/28/23 05:00 04/28/23 05:00 04/28/23 05:00 Oxygen Delivery Method Room Air Weight: 76.8 kg Body Mass Index (BMI) 25.0 Intake & Output: Intake and Output for Last 24 Hours 04/26/23 04/27/23 04/28/23 23:59 23:59 23:59 Intake Total 1700 / 2500 1800 / 2160 910 / 910 Balance 1700 / 2500 1800 / 2160 910 / 910 Lab / Micro Data 04/22/23 14:30 04/24/23 05:38 Physical Exam Const alert and no apparent distress HEENT head/scalp atraumatic and moist oral mucous membranes Neuro Sensorium / Orientation: awake and alert Psych affect normal Assessment & Plan Assessment/Plan (1) Hepatic encephalopathy: PLAN: 2/2 medication non-compliance with rifaximin Head CT negative. continue rifaximin AND lactulose. (2) Debility: PLAN: Referrals sent to facilities. Pt under the care of a guardian, Kamar, who desires for the patient to go to a SNF. Awaiting on insurance authorization. PLAN: Plan Chronic conditions: * alcoholic cirrhosis-complicates care, medical course, recovery, and prognosis * chronic depression-patient is on Zoloft and Abilify * anemia-probably secondary to chronic liver disease, patient does not need a blood transfusion Disposition: SNF. However, this is pending the PASRR process. Pt will be unable to be moved until this is completed. Charges/Coding Visit Charges Inpatient E&M: 96690 [facility] Hosp L1
[2023-04-28] MEDS: rifAXIMin 550 MG Tablet PO ×2 (09:13→23:39)
[2023-04-28] MEDS: Pantoprazole Sodium 40 MG Tablet PO (09:13)
[2023-04-28] MEDS: Thiamine Hydrochloride 100 MG Tablet PO ×2 (09:14→16:38)
[2023-04-28] MEDS: Sertraline 50 MG Tablet 150 MG PO (09:14)
[2023-04-28] MEDS: ARIPiprazole 2 MG Tablet PO (09:14)
[2023-04-28] MEDS: Furosemide 40 MG Tablet PO (09:14)
[2023-04-28] MEDS: Folic Acid 1 MG Tablet PO (09:14)
[2023-04-28 09:20] VITALS: BP 113/60; PULSE 68; RESP 18; TEMP 36.6; O2SAT 98
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
--- NOTE | 2023-04-28 16:03 | CASEMGMT ---
Social Work SW met with pt and updated that [facility] has accepted and that the department of Mental Health will have to assess pt prior to discharge to SNF. Pt will be here through the weekend and into next week. Pt is understanding and agreeable. MELISSA Candelario
[2023-04-28 16:34] VITALS: BP 114/52; PULSE 72; RESP 16; TEMP 37; O2SAT 100
[2023-04-28 23:33] VITALS: BP 105/60; PULSE 79; RESP 18; TEMP 36.6; O2SAT 99
[2023-04-28] MEDS: traZODone 50 MG Tablet 100 MG PO (23:38)
[2023-04-28] MEDS: Scopolamine 1mg/72hr Patch 1 PATCH TD (23:38)
[2023-04-29 06:33] VITALS: BP 111/62; PULSE 60; RESP 18; TEMP 36.6; O2SAT 98
[2023-04-29] MEDS: Lactulose 20 GM/30 ML UDC PO ×3 (06:35→21:09)
[2023-04-29 08:03] VITALS: BP 106/56; PULSE 67; RESP 16; TEMP 37.2; O2SAT 99
[2023-04-29] MEDS: Folic Acid 1 MG Tablet PO (08:12)
[2023-04-29] MEDS: Thiamine Hydrochloride 100 MG Tablet PO ×2 (08:12→16:27)
--- NOTE | 2023-04-29 08:26 | PCM.PN.HOSP ---
Reason for Visit Reason for Visit: Diagnoses Hepatic failure, unspecified without coma (04/22/23) Other malaise (04/22/23) Personal history of other diseases of the digestive system (04/22/23) Subjective Subjective No events overnight. Objective Data Objective Data Vital Signs: Vital Signs Temp Pulse Resp BP Pulse Ox O2 Del Method 37.2 C 67 16 106/56 L 99 Room Air 04/29/23 08:03 04/29/23 08:03 04/29/23 08:03 04/29/23 08:03 04/29/23 08:03 04/29/23 08:03 Oxygen Delivery Method Room Air Weight: 76.8 kg Body Mass Index (BMI) 25.0 Intake & Output: Intake and Output for Last 24 Hours 04/27/23 04/28/23 04/29/23 23:59 23:59 23:59 Intake Total 1800 / 2160 1510 / 1510 Balance 1800 / 2160 1510 / 1510 Lab / Micro Data 04/22/23 14:30 04/24/23 05:38 Physical Exam Const alert and no apparent distress HEENT head/scalp atraumatic and moist oral mucous membranes Neuro Sensorium / Orientation: awake and alert Psych affect normal Assessment & Plan Assessment/Plan (1) Hepatic encephalopathy: PLAN: 2/2 medication non-compliance with rifaximin Head CT negative. continue rifaximin AND lactulose. (2) Debility: PLAN: Referrals sent to facilities. Pt under the care of a guardian, Kamar, who desires for the patient to go to a SNF. Awaiting on insurance authorization. PLAN: Plan Chronic conditions: alcoholic cirrhosis-complicates care, medical course, recovery, and prognosis chronic depression-patient is on Zoloft and Abilify anemia-probably secondary to chronic liver disease, patient does not need a blood transfusion Disposition: SNF. However, this is pending the PASRR process. Pt will be unable to be moved until this is completed. Charges/Coding Visit Charges Inpatient E&M: 05180 Subs Hosp L1
[2023-04-29] MEDS: Furosemide 40 MG Tablet PO (10:48)
[2023-04-29] MEDS: ARIPiprazole 2 MG Tablet PO (10:49)
[2023-04-29] MEDS: Pantoprazole Sodium 40 MG Tablet PO (10:50)
[2023-04-29] MEDS: rifAXIMin 550 MG Tablet PO ×2 (10:50→21:09)
[2023-04-29] MEDS: Sertraline 50 MG Tablet 150 MG PO (10:50)
[2023-04-29 14:10] VITALS: BP 108/63; PULSE 71; RESP 16; TEMP 36.3; O2SAT 98
[2023-04-29 20:28] VITALS: BP 118/55; PULSE 73; RESP 16; TEMP 36.6; O2SAT 99
[2023-04-29] MEDS: traZODone 50 MG Tablet 100 MG PO (21:09)
[2023-04-29] MEDS: hydrOXYzine PAM 25 MG Capsule 75 MG PO (21:11)
[2023-04-29 23:59] VITALS: BP 116/55; PULSE 70; RESP 16; TEMP 36.6; O2SAT 99
[2023-04-30 02:44] VITALS: BP 118/62; PULSE 76; RESP 16; TEMP 36.5; O2SAT 98
[2023-04-30] MEDS: Lactulose 20 GM/30 ML UDC PO ×3 (05:09→21:00)
--- NOTE | 2023-04-30 07:21 | PN.HOSP_ITS ---
Reason for Visit Reason for Visit: Diagnoses Hepatic failure, unspecified without coma (04/22/23) Other malaise (04/22/23) Personal history of other diseases of the digestive system (04/22/23) Subjective Subjective No events overnight. Patient stated that he did not sleep overnight because he is anxious for his fianc?e did show up today. Objective Data Objective Data Vital Signs: Vital Signs Temp Pulse Resp BP Pulse Ox O2 Del Method 36.5 C L 76 16 118/62 98 Room Air 04/30/23 02:44 04/30/23 02:44 04/30/23 02:44 04/30/23 02:44 04/30/23 02:44 04/30/23 02:44 Oxygen Delivery Method Room Air Weight: 76.8 kg Body Mass Index (BMI) 25.0 Intake & Output: Intake and Output for Last 24 Hours 04/28/23 04/29/23 04/30/23 23:59 23:59 23:59 Intake Total 1510 / 1510 650 / 650 450 / 450 Balance 1510 / 1510 650 / 650 450 / 450 Lab / Micro Data 04/22/23 14:30 04/24/23 05:38 Physical Exam Const alert and no apparent distress HEENT head/scalp atraumatic and moist oral mucous membranes Neuro Sensorium / Orientation: awake and alert Assessment & Plan Assessment/Plan (1) Hepatic encephalopathy: PLAN: 2/2 medication non-compliance with rifaximin Head CT negative. continue rifaximin AND lactulose. (2) Debility: PLAN: Referrals sent to facilities. Pt under the care of a guardian, Kamar, who desires for the patient to go to a SNF. Awaiting on insurance authorization. PLAN: Plan Chronic conditions: * alcoholic cirrhosis-complicates care, medical course, recovery, and prognosis * chronic depression-patient is on Zoloft and Abilify * anemia-probably secondary to chronic liver disease, patient does not need a blood transfusion Disposition: The patient's guardian insists on SNF. However, this is pending the PASRR process. Pt will be unable to be moved until this is completed. Patient states that his fianc? is coming today. Do not know the circumstances patient has been consistent in regards to saying that he has had a fianc? so I do not feel that he is hallucinating, however, I am not sure if this is online relationship or if he is perhaps even being catfished by someone. Charges/Coding Visit Charges Inpatient E&M: 55869 Subs Hosp L1
[2023-04-30 08:18] VITALS: BP 112/55; PULSE 64; RESP 16; TEMP 36.4; O2SAT 100
[2023-04-30] MEDS: Thiamine Hydrochloride 100 MG Tablet PO ×2 (08:32→16:10)
[2023-04-30] MEDS: Folic Acid 1 MG Tablet PO (08:32)
[2023-04-30] MEDS: rifAXIMin 550 MG Tablet PO ×2 (09:33→21:00)
[2023-04-30] MEDS: Pantoprazole Sodium 40 MG Tablet PO (09:34)
[2023-04-30] MEDS: Furosemide 40 MG Tablet PO (09:34)
[2023-04-30] MEDS: ARIPiprazole 2 MG Tablet PO (09:34)
[2023-04-30] MEDS: Sertraline 50 MG Tablet 150 MG PO (09:34)
[2023-04-30 14:01] VITALS: BP 122/66; PULSE 64; RESP 16; TEMP 36.4; O2SAT 100
[2023-04-30 20:57] VITALS: BP 124/60; PULSE 67; RESP 20; TEMP 36.8; O2SAT 98
[2023-04-30] MEDS: traZODone 50 MG Tablet 100 MG PO (21:00)
[2023-05-01 04:11] VITALS: BP 116/58; PULSE 67; RESP 18; TEMP 36.5; O2SAT 95
[2023-05-01] MEDS: Lactulose 20 GM/30 ML UDC PO ×3 (04:17→21:01)
[2023-05-01] MEDS: Thiamine Hydrochloride 100 MG Tablet PO ×2 (07:28→16:17)
[2023-05-01] MEDS: Furosemide 40 MG Tablet PO (07:28)
[2023-05-01] MEDS: ARIPiprazole 2 MG Tablet PO (07:28)
[2023-05-01] MEDS: rifAXIMin 550 MG Tablet PO ×2 (07:28→21:01)
[2023-05-01] MEDS: Pantoprazole Sodium 40 MG Tablet PO (07:28)
[2023-05-01] MEDS: Sertraline 50 MG Tablet 150 MG PO (07:28)
[2023-05-01] MEDS: Folic Acid 1 MG Tablet PO (07:28)
[2023-05-01 08:19] VITALS: BP 114/64; PULSE 72; RESP 16; TEMP 36.8; O2SAT 97
[2023-05-01 09:29] LABS: Hematocrit 28.6 % (40-54); Hemoglobin 8.9 g/dL (13.0-16.5); Mean Corp Hgb Conc 31.1 g/dL (32-36); Mean Corpuscular Hgb 30.9 pg (27.0-32.0); Mean Corpuscular Volume 99.3 fL (80-94); Mean Platelet Vol. 9.4 fl (6.2-12.0); POSITIVE COUNT YES; Platelet Count 77 K/mm3 (150-450); RBC Distribution Width CV 16.3 % (11.6-14.6); RBC Distribution Width SD 58.7 fl (35.1-43.9); Red Blood Count 2.88 M/mm3 (4.6-6.2); White Blood Count 5.1 K/mm3 (4.4-11.0)
[2023-05-01 09:30] LABS: Scan Indicated on CBC? Y/N NO
--- NOTE | 2023-05-01 09:33 | CASEMGMT ---
Social Work Pt's PAS/RR triggered for a further review by both [facility] and [facility]. SW looked up the status of these referrals in the [facility] system, they are still both listed as referred. SW will continue to follow and check the status of the further reviews. TERRELL Leger
[2023-05-01 09:48] LABS: ALB/GLOB Ratio 0.7 RATIO (0.9-2.4); AST(SGOT) 46 U/L (15-37); Alanine Aminotransfer ALT/SGPT 36 U/L (16-61); Albumin, Serum 2.5 g/dL (3.2-5.0); Alkaline Phosphatase 261 U/L (45-117); Anion Gap 5 (5-15); BUN 11 mg/dL (7-18); BUN/Creat Ratio 14.3 RATIO (10-20); Calcium,Total 7.9 mg/dL (8.5-10.1); Chloride 108 mmol/L (98-107); Creatinine, Serum 0.77 mg/dL (0.70-1.30); EST Glomerular Filtration Rate 114 mL/min (>60); Est Glom Filt Rate - Afr Amer 138 mL/min (>60); Estimated Creatinine Clearance 116.05 ml/min; Globulin 3.5 g/dL (2.2-4.2); Glucose 128 mg/dL (74-106); Potassium 3.7 mmol/L (3.5-5.1); Sodium Level 141 mmol/L (136-145)
[2023-05-01 12:05] VITALS: BP 124/61; PULSE 83; RESP 16; TEMP 37.1; O2SAT 98
--- NOTE | 2023-05-01 14:47 | PN.HOSP_ITS ---
Reason for Visit Reason for Visit: Diagnoses Hepatic failure, unspecified without coma (04/22/23) Other malaise (04/22/23) Personal history of other diseases of the digestive system (04/22/23) Subjective Subjective Patient seen at bedside this morning. Patient was fully dressed and sitting in bed, stated he was ready to go home. Denied any acute concerns morning. Objective Data Objective Data Vital Signs: Vital Signs Temp Pulse Resp BP Pulse Ox O2 Del Method 98.8 F 83 16 124/61 H 98 Room Air 05/01/23 12:05 05/01/23 12:05 05/01/23 12:05 05/01/23 12:05 05/01/23 12:05 05/01/23 14:18 Oxygen Delivery Method Room Air Weight: 76.8 kg Body Mass Index (BMI) 25.0 Intake & Output: Intake and Output for Last 24 Hours 04/29/23 04/30/23 05/01/23 23:59 23:59 23:59 Intake Total 650 / 650 450 / 700 750 / 750 Balance 650 / 650 450 / 700 750 / 750 Lab / Micro Data 05/01/23 09:05 05/01/23 09:05 Labs: Laboratory Results - last 24 hr 05/01/23 09:05: WBC 5.1, RBC 2.88 L, Hgb 8.9 L, Hct 28.6 L, MCV 99.3 H, MCH 30.9, MCHC 31.1 L, RDW Std Deviation 58.7 H, RDW Coeff of Kaela 16.3 H, Plt Count 77 L, MPV 9.4, Sodium 141, Potassium 3.7, Chloride 108 H, Carbon Dioxide 28.0, Anion Gap 5, BUN 11, Creatinine 0.77, Estim Creat Clear Calc 116.05, Est GFR (MDRD) Af Amer 138, Est GFR (MDRD) Non-Af 114, BUN/Creatinine Ratio 14.3, Glucose 128 H, Calcium 7.9 L, Total Bilirubin 2.20 H, AST 46 H, ALT 36, Alkaline Phosphatase 261 H, Total Protein 6.0 L, Albumin 2.5 L, Globulin 3.5, Albumin/Globulin Ratio 0.7 L Physical Exam Const alert, oriented x3, no apparent distress and average body habitus General Appearance: cooperative and comfortable HEENT normocephalic, head/scalp atraumatic, hearing grossly normal bilaterally, nasal mucous membranes and turbinates normal and moist oral mucous membranes Eyes PERRL, EOMs intact bilaterally and conjunctivae normal Neck full ROM, no lymphadenopathy and supple Lymph Lymphatic: no lymphadenopathy noted Chest inspection of chest normal Resp normal respiratory effort, normal air movement, no use of accessory muscles and clear to auscultation bilaterally Cardio regular rate, regular rhythm, no murmurs and peripheral pulses 2+ throughout GI normal to inspection, nondistended, normoactive bowel sounds, soft to palpation, non-tender and non-distended Back/Spine normal ROM Extremity normal to inspection, full ROM and no pedal edema Skin no rashes or lesions noted Psych mental status grossly normal Assessment & Plan Assessment/Plan (1) Debility: PLAN: Plan Patient is a 48-year-old male with history of alcoholic cirrhosis with hepatic encephalopathy, former alcohol use disorder, tobacco use disorder, anemia, thrombocytopenia, depression/anxiety and homelessness who presented to [facility] ED on 04/22/2023 for multiple falls. 1. Hepatic cephalopathy, improved Presumed secondary to medication nonadherence to home rifaximin. CT head negative on admit, CT abdomen pelvis with no ascites/no concern for SBP. Ammonia level 94 on admit. ? Improved. Continue rifaximin and lactulose. 2. Debility ? Patient has history of developmental delay, is under the care of guardian (Kamar) who desires for patient to go to SNF on discharge. Case management following, further details as noted below. Chronic medical conditions: ? Alcoholic cirrhosis: Unfortunately complicates care, medical course, recovery and prognosis. ? Chronic depression: Stable. Continue home Zoloft and Abilify. ? Anemia: Likely secondary to chronic liver disease, stable. DVT prophylaxis: Lovenox CODE STATUS: Full code, unverified Expected disposition: Patient's guardian desires that patient go to a SNF. However, needs to have PAS/RR completed prior to insurance approval and per social work this will likely keep patient in the hospital through this week. See case management note for further details. Total clinical time spent by myself addressing the patient's medical issues, reviewing all the data, and collaborating with patient's care team: 35 minutes. Charges/Coding Visit Charges Inpatient E&M: 60752 Subs Hosp L2
[2023-05-01 15:57] VITALS: BP 105/64; PULSE 75; RESP 16; TEMP 36.9; O2SAT 99
[2023-05-01 20:58] VITALS: BP 117/60; PULSE 74; RESP 18; TEMP 36.8; O2SAT 99
[2023-05-01] MEDS: traZODone 50 MG Tablet 100 MG PO (21:01)
[2023-05-01] MEDS: Scopolamine 1mg/72hr Patch 1 PATCH TD (21:01)
[2023-05-02] MEDS: hydrOXYzine PAM 25 MG Capsule 75 MG PO ×2 (02:00→21:44)
[2023-05-02 04:53] VITALS: BP 119/68; PULSE 68; RESP 16; TEMP 36.9; O2SAT 99
[2023-05-02] MEDS: Lactulose 20 GM/30 ML UDC PO ×3 (04:56→21:45)
[2023-05-02] MEDS: ARIPiprazole 2 MG Tablet PO (08:15)
[2023-05-02] MEDS: rifAXIMin 550 MG Tablet PO ×2 (08:15→21:45)
[2023-05-02] MEDS: Thiamine Hydrochloride 100 MG Tablet PO ×2 (08:15→16:28)
[2023-05-02] MEDS: Pantoprazole Sodium 40 MG Tablet PO (08:15)
[2023-05-02] MEDS: Furosemide 40 MG Tablet PO (08:15)
[2023-05-02] MEDS: Folic Acid 1 MG Tablet PO (08:15)
[2023-05-02] MEDS: Sertraline 50 MG Tablet 150 MG PO (08:16)
--- NOTE | 2023-05-02 08:20 | CASEMGMT ---
Social Work SW checked in the [facility] system, both further reviews for [facility] and Mental health continue to be listed as in referred status. TERRELL Leger
[2023-05-02 12:17] VITALS: BP 111/56; PULSE 68; RESP 18; TEMP 36.8; O2SAT 98
--- NOTE | 2023-05-02 15:44 | PCM.PN.HOSP ---
Reason for Visit Reason for Visit: Diagnoses Hepatic failure, unspecified without coma (04/22/23) Other malaise (04/22/23) Personal history of other diseases of the digestive system (04/22/23) Subjective Subjective Patient seen at bedside this morning. Laying comfortably in bed, conversing normally, no acute distress. States he has been having 3-4 bowel movements per day. Has otherwise been feeling well. Eating and drinking well. Would like to get out of the hospital but is understanding of the barriers to that as noted in the assessment and plan. No other acute concerns. Objective Data Objective Data Vital Signs: Vital Signs Temp Pulse Resp BP Pulse Ox O2 Del Method 98.3 F 68 18 111/56 L 98 Room Air 05/02/23 12:17 05/02/23 12:17 05/02/23 12:17 05/02/23 12:17 05/02/23 12:17 05/02/23 12:17 Oxygen Delivery Method Room Air Weight: 76.8 kg Body Mass Index (BMI) 25.0 Intake & Output: Intake and Output for Last 24 Hours 04/30/23 05/01/23 05/02/23 23:59 23:59 23:59 Intake Total 450 / 700 1450 / 1450 780 / 780 Balance 450 / 700 1450 / 1450 780 / 780 Lab / Micro Data 05/01/23 09:05 05/01/23 09:05 Physical Exam Const alert, oriented x3, no apparent distress and average body habitus General Appearance: cooperative and comfortable HEENT normocephalic, head/scalp atraumatic, hearing grossly normal bilaterally, nasal mucous membranes and turbinates normal and moist oral mucous membranes Eyes PERRL, EOMs intact bilaterally and conjunctivae normal Neck full ROM, no lymphadenopathy and supple Lymph Lymphatic: no lymphadenopathy noted Chest inspection of chest normal Resp normal respiratory effort, normal air movement, no use of accessory muscles and clear to auscultation bilaterally Cardio regular rate, regular rhythm, no murmurs and peripheral pulses 2+ throughout GI normal to inspection, nondistended, normoactive bowel sounds, soft to palpation, non-tender and non-distended Back/Spine normal ROM Extremity normal to inspection, full ROM and no pedal edema Skin no rashes or lesions noted Psych mental status grossly normal Assessment & Plan Assessment/Plan (1) Debility: PLAN: Plan Patient is a 48-year-old male with history of alcoholic cirrhosis with hepatic encephalopathy, former alcohol use disorder, tobacco use disorder, anemia, thrombocytopenia, depression/anxiety and homelessness who presented to [facility] ED on 04/22/2023 for multiple falls. 1. Hepatic cephalopathy, improved Presumed secondary to medication nonadherence to home rifaximin. CT head negative on admit, CT abdomen pelvis with no ascites/no concern for SBP. Ammonia level 94 on admit. ? Improved. Continue rifaximin and lactulose. 2. Debility ? Patient has history of developmental delay, is under the care of guardian (Kamar) who desires for patient to go to SNF on discharge. Case management following, further details as noted below. Chronic medical conditions: ? Alcoholic cirrhosis: Unfortunately complicates care, medical course, recovery and prognosis. ? Chronic depression: Stable. Continue home Zoloft and Abilify. ? Anemia: Likely secondary to chronic liver disease, stable. DVT prophylaxis: Lovenox CODE STATUS: Full code, unverified Expected disposition: Patient's guardian desires that patient go to a SNF. However, needs to have multiple evaluations completed prior to this and will likely keep him hospitalized through this week. See case management note for further details. Total clinical time spent by myself addressing the patient's medical issues, reviewing all the data, and collaborating with patient's care team: 35 minutes. Charges/Coding Visit Charges Inpatient E&M: 58242 Subs Hosp L2
[2023-05-02 16:25] VITALS: BP 119/59; PULSE 65; RESP 18; TEMP 36.6; O2SAT 100
[2023-05-02 21:29] VITALS: BP 121/54; PULSE 73; RESP 18; TEMP 36.4; O2SAT 100
[2023-05-02] MEDS: traZODone 50 MG Tablet 100 MG PO (21:45)
[2023-05-03 04:16] VITALS: BP 118/64; PULSE 72; RESP 18; TEMP 36.4; O2SAT 100
[2023-05-03] MEDS: Lactulose 20 GM/30 ML UDC PO ×3 (06:01→21:38)
--- NOTE | 2023-05-03 09:06 | CASEMGMT ---
Social Work SW checked in the [facility] AT THE [facility] system, both further reviews for [facility] and Mental health continue to be listed as in referred status. MELISSA Bailey
[2023-05-03] MEDS: Pantoprazole Sodium 40 MG Tablet PO (09:12)
[2023-05-03] MEDS: Sertraline 50 MG Tablet 150 MG PO (09:12)
[2023-05-03] MEDS: Thiamine Hydrochloride 100 MG Tablet PO ×2 (09:12→16:13)
[2023-05-03] MEDS: Folic Acid 1 MG Tablet PO (09:12)
[2023-05-03] MEDS: rifAXIMin 550 MG Tablet PO ×2 (09:12→21:38)
[2023-05-03] MEDS: ARIPiprazole 2 MG Tablet PO (09:13)
[2023-05-03] MEDS: Furosemide 40 MG Tablet PO (09:13)
[2023-05-03 09:36] VITALS: BP 123/59; PULSE 66; RESP 18; TEMP 36.6; O2SAT 100
--- NOTE | 2023-05-03 11:33 | CASEMGMT ---
Social Work Worker from the [place] [employer] here to evaluate pt for admission to SNF. Information will be submitted today for [facility] approval. MELISSA Bailey
--- NOTE | 2023-05-03 15:22 | PCM.PN.HOSP ---
Reason for Visit Reason for Visit: Diagnoses Hepatic failure, unspecified without coma (04/22/23) Other malaise (04/22/23) Personal history of other diseases of the digestive system (04/22/23) Subjective Subjective Patient seen at bedside this morning. Sitting comfortably in bed, conversing normally, no acute distress. States he is frustrated with having stay in the hospital but otherwise has no acute concerns this morning. Has been walking around the halls multiple times per day without issue. Reports 2-4 bowel movements per day, no abdominal distention or discomfort. No other acute concerns. Objective Data Objective Data Vital Signs: Vital Signs Temp Pulse Resp BP Pulse Ox O2 Del Method 97.8 F 66 18 123/59 H 100 Room Air 05/03/23 09:36 05/03/23 09:36 05/03/23 09:36 05/03/23 09:36 05/03/23 09:36 05/03/23 09:36 Oxygen Delivery Method Room Air Weight: 76.8 kg Body Mass Index (BMI) 25.0 Intake & Output: Intake and Output for Last 24 Hours 05/01/23 05/02/23 05/03/23 23:59 23:59 23:59 Intake Total 1450 / 1450 1380 / 1380 2150 / 2150 Balance 1450 / 1450 1380 / 1380 2150 / 2150 Lab / Micro Data 05/01/23 09:05 05/01/23 09:05 Physical Exam Const alert, oriented x3, no apparent distress and average body habitus General Appearance: cooperative and comfortable HEENT normocephalic, head/scalp atraumatic, hearing grossly normal bilaterally, nasal mucous membranes and turbinates normal and moist oral mucous membranes Eyes PERRL, EOMs intact bilaterally and conjunctivae normal Neck full ROM, no lymphadenopathy and supple Lymph Lymphatic: no lymphadenopathy noted Chest inspection of chest normal Resp normal respiratory effort, normal air movement, no use of accessory muscles and clear to auscultation bilaterally Cardio regular rate, regular rhythm, no murmurs and peripheral pulses 2+ throughout GI normal to inspection, nondistended, normoactive bowel sounds, soft to palpation, non-tender and non-distended Back/Spine normal ROM Extremity normal to inspection, full ROM and no pedal edema Skin no rashes or lesions noted Psych mental status grossly normal Assessment & Plan Assessment/Plan (1) Debility: PLAN: Plan Patient is a 48-year-old male with history of alcoholic cirrhosis with hepatic encephalopathy, former alcohol use disorder, tobacco use disorder, anemia, thrombocytopenia, depression/anxiety and homelessness who presented to [facility] ED on 04/22/2023 for multiple falls. 1. Hepatic encephalopathy, improved Presumed secondary to medication nonadherence to home rifaximin. CT head negative on admit, CT abdomen pelvis with no ascites/no concern for SBP. Ammonia level 94 on admit. ? Improved. Continue rifaximin and lactulose. 2. Debility ? Patient has history of developmental delay, is under the care of guardian (Kamar) who desires for patient to go to SNF on discharge. Case management following, further details as noted below. Chronic medical conditions: ? Alcoholic cirrhosis: Unfortunately complicates care, medical course, recovery and prognosis. ? Chronic depression: Stable. Continue home Zoloft and Abilify. ? Anemia: Likely secondary to chronic liver disease, stable. DVT prophylaxis: Lovenox CODE STATUS: Full code, unverified Expected disposition: Patient's guardian desires that patient go to a SNF. However, needs to have multiple evaluations completed prior to this and will likely keep him hospitalized through this week. See case management note for further details. Total clinical time spent by myself addressing the patient's medical issues, reviewing all the data, and collaborating with patient's care team: 25 minutes. Charges/Coding Visit Charges Inpatient E&M: 81334 [facility] Hosp L1
[2023-05-03 16:11] VITALS: BP 110/57; PULSE 71; RESP 18; TEMP 37.1; O2SAT 100
[2023-05-03 21:32] VITALS: BP 109/57; PULSE 70; RESP 18; TEMP 36.8; O2SAT 97
[2023-05-03] MEDS: traZODone 50 MG Tablet 100 MG PO (21:38)
[2023-05-03] MEDS: hydrOXYzine PAM 25 MG Capsule 75 MG PO (21:38)
[2023-05-04] MEDS: Acetaminophen 325 MG Tablet 650 MG PO (01:11)
[2023-05-04 04:29] VITALS: BP 100/42; PULSE 57; RESP 16; TEMP 36.5; O2SAT 97
[2023-05-04] MEDS: Lactulose 20 GM/30 ML UDC PO ×3 (05:33→20:42)
[2023-05-04 08:13] VITALS: BP 114/63; PULSE 62; RESP 16; TEMP 37.1; O2SAT 100
[2023-05-04] MEDS: Thiamine Hydrochloride 100 MG Tablet PO ×2 (08:16→17:24)
[2023-05-04] MEDS: Folic Acid 1 MG Tablet PO (08:16)
--- NOTE | 2023-05-04 09:27 | CASEMGMT ---
Social Work SW checked in the [facility] system, both further reviews for [facility] and Mental health continue to be listed as in referred status. MELISSA Bailey
[2023-05-04] MEDS: Pantoprazole Sodium 40 MG Tablet PO (10:26)
[2023-05-04] MEDS: Furosemide 40 MG Tablet PO (10:27)
[2023-05-04] MEDS: rifAXIMin 550 MG Tablet PO ×2 (10:27→20:43)
[2023-05-04] MEDS: Sertraline 50 MG Tablet 150 MG PO (10:27)
[2023-05-04] MEDS: ARIPiprazole 2 MG Tablet PO (10:27)
[2023-05-04 14:08] VITALS: BP 108/58; PULSE 74; RESP 18; TEMP 37; O2SAT 100
--- NOTE | 2023-05-04 15:04 | PCM.PN.HOSP ---
Reason for Visit Reason for Visit: Diagnoses Hepatic failure, unspecified without coma (04/22/23) Other malaise (04/22/23) Personal history of other diseases of the digestive system (04/22/23) Subjective Subjective Patient seen at bedside this morning. Laying comfortably in bed, conversing normally, no acute distress. Continues to be somewhat frustrated by having to stay in the hospital. Otherwise has no acute concerns this morning. Objective Data Objective Data Vital Signs: Vital Signs Temp Pulse Resp BP Pulse Ox O2 Del Method 98.6 F 74 18 108/58 L 100 Room Air 05/04/23 14:08 05/04/23 14:08 05/04/23 14:08 05/04/23 14:08 05/04/23 14:08 05/04/23 14:08 Oxygen Delivery Method Room Air Weight: 76.8 kg Body Mass Index (BMI) 25.0 Intake & Output: Intake and Output for Last 24 Hours 05/02/23 05/03/23 05/04/23 23:59 23:59 23:59 Intake Total 1380 / 1380 2950 / 2950 2049 Balance 1380 / 1380 2950 / 2950 2049 Lab / Micro Data 05/01/23 09:05 05/01/23 09:05 Physical Exam Const alert, oriented x3, no apparent distress and average body habitus Constitutional Narrative: Pleasant middle-age male, lying comfortably bed, conversing normally, no acute distress. General Appearance: cooperative and comfortable HEENT normocephalic, head/scalp atraumatic, hearing grossly normal bilaterally, nasal mucous membranes and turbinates normal and moist oral mucous membranes Eyes PERRL, EOMs intact bilaterally and conjunctivae normal Neck full ROM, no lymphadenopathy and supple Lymph Lymphatic: no lymphadenopathy noted Chest inspection of chest normal Resp normal respiratory effort, normal air movement, no use of accessory muscles and clear to auscultation bilaterally Cardio regular rate, regular rhythm, no murmurs and peripheral pulses 2+ throughout GI normal to inspection, nondistended, normoactive bowel sounds, soft to palpation, non-tender and non-distended Back/Spine normal ROM Extremity normal to inspection, full ROM and no pedal edema Skin no rashes or lesions noted Psych mental status grossly normal Assessment & Plan Assessment/Plan (1) Debility: PLAN: Plan Patient is a 48-year-old male with history of alcoholic cirrhosis with hepatic encephalopathy, former alcohol use disorder, tobacco use disorder, anemia, thrombocytopenia, depression/anxiety and homelessness who presented to [facility] ED on 04/22/2023 for multiple falls. 1. Hepatic encephalopathy, improved Presumed secondary to medication nonadherence to home rifaximin. CT head negative on admit, CT abdomen pelvis with no ascites/no concern for SBP. Ammonia level 94 on admit. ? Improved. Continue rifaximin and lactulose. 2. Debility ? Patient has history of developmental delay, is under the care of guardian (Kamar) who desires for patient to go to SNF on discharge. Case management following, further details as noted below. Chronic medical conditions: ? Alcoholic cirrhosis: Unfortunately complicates care, medical course, recovery and prognosis. ? Chronic depression: Stable. Continue home Zoloft and Abilify. ? Anemia: Likely secondary to chronic liver disease, stable. DVT prophylaxis: Lovenox CODE STATUS: Full code, unverified Expected disposition: Planning for SNF placement on discharge. Per case management, has had the necessary evaluations completed and they are waiting on review before he can be accepted to a facility. Will likely remain hospitalized for the weekend. See case management note for further details. Total clinical time spent by myself addressing the patient's medical issues, reviewing all the data, and collaborating with patient's care team: 25 minutes. Charges/Coding Visit Charges Inpatient E&M: 64516 [facility] Hosp L1
[2023-05-04] MEDS: traZODone 50 MG Tablet 100 MG PO (20:42)
[2023-05-04] MEDS: Scopolamine 1mg/72hr Patch 1 PATCH TD (20:42)
[2023-05-04 20:49] VITALS: BP 102/51; PULSE 76; RESP 16; TEMP 36.9; O2SAT 100
[2023-05-05] MEDS: Lactulose 20 GM/30 ML UDC PO ×3 (05:00→21:25)
[2023-05-05 05:15] VITALS: BP 122/70; PULSE 72; RESP 16; TEMP 36.2; O2SAT 98
[2023-05-05 08:31] VITALS: BP 118/62; PULSE 71; RESP 16; TEMP 36.4; O2SAT 97
[2023-05-05] MEDS: rifAXIMin 550 MG Tablet PO ×2 (08:33→21:25)
[2023-05-05] MEDS: Thiamine Hydrochloride 100 MG Tablet PO ×2 (08:33→18:34)
[2023-05-05] MEDS: Sertraline 50 MG Tablet 150 MG PO (08:33)
[2023-05-05] MEDS: ARIPiprazole 2 MG Tablet PO (08:33)
[2023-05-05] MEDS: Pantoprazole Sodium 40 MG Tablet PO (08:34)
[2023-05-05] MEDS: Folic Acid 1 MG Tablet PO (08:34)
[2023-05-05] MEDS: Furosemide 40 MG Tablet PO (08:34)
--- NOTE | 2023-05-05 08:52 | CASEMGMT ---
Addendum entered by Linda Lee 05/05/23 09:03: Social Work SW sent email to pt's guardian Yana Kasper notifying of decision. Copy of Level II determination sent to Kamar. MELISSA Bailey Original Note: Social Work [place] [employer] has approved pt's stay at a nursing facility. [place] [employer] has Ruled Out DD concerns and has therefore approved stay at a nursing facility. Precert from insurance will now be needed for pt to be admitted to [facility]. DC wet process miller head assistant to send updated clinicals and request precert be started at this time. Plan: [facility], pending precert MELISSA Bailey
--- NOTE | 2023-05-05 09:00 | CASEMGMT ---
Addendum entered by Sandra Springer 05/05/23 11:17: Discharge Planning DD rule out received and sent to [facility] via [employer]. Asked that precert be submitted. Copy of DD rule out placed in patients chart and SNF envelope. SW updated. Sandra Springer, Discharge Planning Asst. Original Note: Discharge Planning Clinical updates, SW note dated 04/28, and [facility] rule out sent via [employer] to [facility] along with explanation of DD rule out. Copy of rule out placed in patients chart and in SNF folder. Sandra Springer, Discharge Planning Asst.
--- NOTE | 2023-05-05 13:53 | PCM.PN.HOSP ---
Reason for Visit Reason for Visit: Diagnoses Hepatic failure, unspecified without coma (04/22/23) Other malaise (04/22/23) Personal history of other diseases of the digestive system (04/22/23) Subjective Subjective Patient seen at bedside this morning. Laying comfortably in bed, conversing normally, no acute distress. Denies any acute pain or discomfort this morning. No other acute concerns today. Objective Data Objective Data Vital Signs: Vital Signs Temp Pulse Resp BP Pulse Ox O2 Del Method 97.5 F L 71 16 118/62 97 Room Air 05/05/23 08:31 05/05/23 08:31 05/05/23 08:31 05/05/23 08:31 05/05/23 08:31 05/05/23 08:31 Oxygen Delivery Method Room Air Weight: 76.8 kg Body Mass Index (BMI) 25.0 Intake & Output: Intake and Output for Last 24 Hours 05/03/23 05/04/23 05/05/23 23:59 23:59 23:59 Intake Total 2950 / 2950 2750 / 2750 Balance 2950 / 2950 2750 / 2750 Lab / Micro Data 05/01/23 09:05 05/01/23 09:05 Physical Exam Const alert, oriented x3, no apparent distress and average body habitus Constitutional Narrative: Pleasant middle-age male, lying comfortably bed, conversing normally, no acute distress. General Appearance: cooperative and comfortable HEENT normocephalic, head/scalp atraumatic, hearing grossly normal bilaterally, nasal mucous membranes and turbinates normal and moist oral mucous membranes Eyes PERRL, EOMs intact bilaterally and conjunctivae normal Neck full ROM, no lymphadenopathy and supple Lymph Lymphatic: no lymphadenopathy noted Chest inspection of chest normal Resp normal respiratory effort, normal air movement, no use of accessory muscles and clear to auscultation bilaterally Cardio regular rate, regular rhythm, no murmurs and peripheral pulses 2+ throughout GI normal to inspection, nondistended, normoactive bowel sounds, soft to palpation, non-tender and non-distended Back/Spine normal ROM Extremity normal to inspection, full ROM and no pedal edema Skin no rashes or lesions noted Psych mental status grossly normal Assessment & Plan Assessment/Plan (1) Debility: PLAN: Plan Patient is a 48-year-old male with history of alcoholic cirrhosis with hepatic encephalopathy, former alcohol use disorder, tobacco use disorder, anemia, thrombocytopenia, depression/anxiety and homelessness who presented to [facility] ED on 04/22/2023 for multiple falls. 1. Hepatic encephalopathy, improved Presumed secondary to medication nonadherence to home rifaximin. CT head negative on admit, CT abdomen pelvis with no ascites/no concern for SBP. Ammonia level 94 on admit. ? Improved. Continue rifaximin and lactulose. 2. Debility ? Patient has history of developmental delay, is under the care of guardian (Kamar) who desires for patient to go to SNF on discharge. Case management following, further details as noted below. Chronic medical conditions: ? Alcoholic cirrhosis: Unfortunately complicates care, medical course, recovery and prognosis. ? Chronic depression: Stable. Continue home Zoloft and Abilify. ? Anemia: Likely secondary to chronic liver disease, stable. DVT prophylaxis: Lovenox CODE STATUS: Full code, unverified Expected disposition: Planning for SNF placement on discharge. Per case management, has had the necessary evaluations completed and they are waiting on review before he can be accepted to a facility. Will likely remain hospitalized for the weekend. See case management note for further details. Total clinical time spent by myself addressing the patient's medical issues, reviewing all the data, and collaborating with patient's care team: 25 minutes. Charges/Coding Visit Charges Inpatient E&M: 79005 [facility] Hosp L1
--- NOTE | 2023-05-05 14:19 | CASEMGMT ---
Social Work SW placed call to Guardian Yana Batres and updated that Level II evaluation is complete and pt is approved for SNF. Precert has been started with insurance and [facility] states that determination from insurance will not be made until Monday. Plan: [facility], pending precert MELISSA Bailey
[2023-05-05 14:36] VITALS: BP 114/67; PULSE 69; RESP 16; TEMP 36.4; O2SAT 99
[2023-05-05] MEDS: traZODone 50 MG Tablet 100 MG PO (21:25)
[2023-05-05 21:36] VITALS: BP 117/63; PULSE 73; RESP 16; TEMP 36.8; O2SAT 100
[2023-05-06] MEDS: Lactulose 20 GM/30 ML UDC PO ×2 (03:11→20:10)
[2023-05-06 03:14] VITALS: BP 104/53; PULSE 70; RESP 16; TEMP 36.8; O2SAT 100
[2023-05-06 09:15] VITALS: BP 121/71; PULSE 88; RESP 18; TEMP 36.6; O2SAT 98
[2023-05-06] MEDS: Folic Acid 1 MG Tablet PO (09:50)
[2023-05-06] MEDS: Pantoprazole Sodium 40 MG Tablet PO (09:50)
[2023-05-06] MEDS: Furosemide 40 MG Tablet PO (09:50)
[2023-05-06] MEDS: Enoxaparin 40 MG/0.4 ML Syringe SC (09:50)
[2023-05-06] MEDS: rifAXIMin 550 MG Tablet PO ×2 (09:51→20:10)
[2023-05-06] MEDS: ARIPiprazole 2 MG Tablet PO (09:51)
[2023-05-06] MEDS: Thiamine Hydrochloride 100 MG Tablet PO ×2 (09:51→18:19)
[2023-05-06] MEDS: Sertraline 50 MG Tablet 150 MG PO (09:52)
[2023-05-06] MEDS: hydrOXYzine PAM 25 MG Capsule 75 MG PO (10:33)
--- NOTE | 2023-05-06 10:37 | MDS.RN ---
pt ambulatory in hallways,stopped at nursing station and requests something for my nerves-pt given prn dose of vistaril
[2023-05-06 11:00] VITALS: PULSE 89
--- NOTE | 2023-05-06 13:50 | PCM.PN.HOSP ---
Reason for Visit Reason for Visit: Diagnoses Hepatic failure, unspecified without coma (04/22/23) Other malaise (04/22/23) Personal history of other diseases of the digestive system (04/22/23) Subjective Subjective Patient seen at bedside this morning. Laying comfortably in bed, no acute distress. No acute concerns this morning. Objective Data Objective Data Vital Signs: Vital Signs Temp Pulse Resp BP Pulse Ox O2 Del Method 98.3 F 70 16 104/53 L 100 Room Air 05/06/23 03:14 05/06/23 03:14 05/06/23 03:14 05/06/23 03:14 05/06/23 03:14 05/06/23 03:14 Oxygen Delivery Method Room Air Weight: 76.8 kg Body Mass Index (BMI) 25.0 Intake & Output: Intake and Output for Last 24 Hours 05/04/23 05/05/23 05/06/23 23:59 23:59 23:59 Intake Total 2750 / 2750 Balance 2750 / 2750 Lab / Micro Data 05/01/23 09:05 05/01/23 09:05 Physical Exam Const alert, oriented x3, no apparent distress and average body habitus Constitutional Narrative: Pleasant middle-age male, lying comfortably bed, conversing normally, no acute distress. General Appearance: cooperative and comfortable HEENT normocephalic, head/scalp atraumatic, hearing grossly normal bilaterally, nasal mucous membranes and turbinates normal and moist oral mucous membranes Eyes PERRL, EOMs intact bilaterally and conjunctivae normal Neck full ROM, no lymphadenopathy and supple Lymph Lymphatic: no lymphadenopathy noted Chest inspection of chest normal Resp normal respiratory effort, normal air movement, no use of accessory muscles and clear to auscultation bilaterally Cardio regular rate, regular rhythm, no murmurs and peripheral pulses 2+ throughout GI normal to inspection, nondistended, normoactive bowel sounds, soft to palpation, non-tender and non-distended Back/Spine normal ROM Extremity normal to inspection, full ROM and no pedal edema Skin no rashes or lesions noted Psych mental status grossly normal Assessment & Plan Assessment/Plan (1) Debility: PLAN: Plan Patient is a 48-year-old male with history of alcoholic cirrhosis with hepatic encephalopathy, former alcohol use disorder, tobacco use disorder, anemia, thrombocytopenia, depression/anxiety and homelessness who presented to [facility] ED on 04/22/2023 for multiple falls. 1. Hepatic encephalopathy, improved Presumed secondary to medication nonadherence to home rifaximin. CT head negative on admit, CT abdomen pelvis with no ascites/no concern for SBP. Ammonia level 94 on admit. ? Improved. Continue rifaximin and lactulose. 2. Debility ? Patient has history of developmental delay, is under the care of guardian (Kamar) who desires for patient to go to SNF on discharge. Case management following, further details as noted below. Chronic medical conditions: ? Alcoholic cirrhosis: Unfortunately complicates care, medical course, recovery and prognosis. ? Chronic depression: Stable. Continue home Zoloft and Abilify. ? Anemia: Likely secondary to chronic liver disease, stable. DVT prophylaxis: Lovenox CODE STATUS: Full code, unverified Expected disposition: Planning for SNF placement on discharge. Per case management, has been accepted for SNF placement, awaiting precertification. Will likely remain hospitalized for the weekend. See case management note for further details. Total clinical time spent by myself addressing the patient's medical issues, reviewing all the data, and collaborating with patient's care team: 25 minutes. Charges/Coding Visit Charges Inpatient E&M: 17057 Subs Hosp L1
[2023-05-06 15:23] VITALS: BP 119/74; PULSE 89; RESP 18; TEMP 37.2; O2SAT 98
[2023-05-06 20:07] VITALS: BP 105/62; PULSE 78; RESP 16; TEMP 37; O2SAT 99
[2023-05-06] MEDS: traZODone 50 MG Tablet 100 MG PO (20:10)
[2023-05-07] MEDS: hydrOXYzine PAM 25 MG Capsule 75 MG PO ×2 (02:05→07:28)
[2023-05-07] MEDS: Lactulose 20 GM/30 ML UDC PO ×3 (05:12→21:12)
[2023-05-07 05:13] VITALS: BP 121/72; PULSE 77; RESP 16; TEMP 36.9; O2SAT 99
[2023-05-07] MEDS: Folic Acid 1 MG Tablet PO (07:25)
[2023-05-07] MEDS: Thiamine Hydrochloride 100 MG Tablet PO ×2 (07:25→16:26)
[2023-05-07] MEDS: ARIPiprazole 2 MG Tablet PO (07:25)
[2023-05-07] MEDS: Sertraline 50 MG Tablet 150 MG PO (07:25)
[2023-05-07] MEDS: rifAXIMin 550 MG Tablet PO ×2 (07:25→21:13)
[2023-05-07] MEDS: Pantoprazole Sodium 40 MG Tablet PO (07:25)
[2023-05-07] MEDS: Furosemide 40 MG Tablet PO (07:26)
[2023-05-07 07:55] VITALS: BP 135/78; PULSE 83; RESP 16; TEMP 36.7; O2SAT 98
[2023-05-07 11:18] VITALS: BP 116/64; PULSE 81; RESP 16; TEMP 36.7; O2SAT 100
--- NOTE | 2023-05-07 13:20 | PCM.PN.HOSP ---
Reason for Visit Reason for Visit: Diagnoses Hepatic failure, unspecified without coma (04/22/23) Other malaise (04/22/23) Personal history of other diseases of the digestive system (04/22/23) Subjective Subjective Patient seen at bedside this morning. Lying comfortably in bed, conversing normally, no acute distress. No acute concerns this morning. Objective Data Objective Data Vital Signs: Vital Signs Temp Pulse Resp BP Pulse Ox O2 Del Method 98.1 F 81 16 116/64 100 Room Air 05/07/23 11:18 05/07/23 11:18 05/07/23 11:18 05/07/23 11:18 05/07/23 11:18 05/07/23 11:18 Oxygen Delivery Method Room Air Weight: 76.8 kg Body Mass Index (BMI) 25.0 Lab / Micro Data 05/01/23 09:05 05/01/23 09:05 Physical Exam Const alert, oriented x3, no apparent distress and average body habitus Constitutional Narrative: Pleasant middle-age male, lying comfortably bed, conversing normally, no acute distress. General Appearance: cooperative and comfortable HEENT normocephalic, head/scalp atraumatic, hearing grossly normal bilaterally, nasal mucous membranes and turbinates normal and moist oral mucous membranes Eyes PERRL, EOMs intact bilaterally and conjunctivae normal Neck full ROM, no lymphadenopathy and supple Lymph Lymphatic: no lymphadenopathy noted Chest inspection of chest normal Resp normal respiratory effort, normal air movement, no use of accessory muscles and clear to auscultation bilaterally Cardio regular rate, regular rhythm, no murmurs and peripheral pulses 2+ throughout GI normal to inspection, nondistended, normoactive bowel sounds, soft to palpation, non-tender and non-distended Back/Spine normal ROM Extremity normal to inspection, full ROM and no pedal edema Skin no rashes or lesions noted Psych mental status grossly normal Assessment & Plan Assessment/Plan (1) Debility: PLAN: Plan Patient is a 48-year-old male with history of alcoholic cirrhosis with hepatic encephalopathy, former alcohol use disorder, tobacco use disorder, anemia, thrombocytopenia, depression/anxiety and homelessness who presented to [facility] ED on 04/22/2023 for multiple falls. 1. Hepatic encephalopathy, improved Presumed secondary to medication nonadherence to home rifaximin. CT head negative on admit, CT abdomen pelvis with no ascites/no concern for SBP. Ammonia level 94 on admit. ? Improved. Continue rifaximin and lactulose. 2. Debility ? Patient has history of developmental delay, is under the care of guardian (Kamar) who desires for patient to go to SNF on discharge. Case management following, further details as noted below. Chronic medical conditions: ? Alcoholic cirrhosis: Unfortunately complicates care, medical course, recovery and prognosis. ? Chronic depression: Stable. Continue home Zoloft and Abilify. ? Anemia: Likely secondary to chronic liver disease, stable. DVT prophylaxis: Lovenox CODE STATUS: Full code, unverified Expected disposition: Planning for SNF placement on discharge. Per case management, has been accepted for SNF placement, awaiting precertification, hopeful for placement by Monday. See case management note for further details. Total clinical time spent by myself addressing the patient's medical issues, reviewing all the data, and collaborating with patient's care team: 25 minutes. Charges/Coding Visit Charges Inpatient E&M: 06281 Subs Hosp L1
[2023-05-07 15:10] VITALS: BP 116/66; PULSE 74; RESP 16; TEMP 36.7; O2SAT 100
[2023-05-07] MEDS: traZODone 50 MG Tablet 100 MG PO (21:13)
[2023-05-07 21:23] VITALS: BP 116/65; PULSE 68; RESP 16; TEMP 36.7; O2SAT 97
[2023-05-08] MEDS: Lactulose 20 GM/30 ML UDC PO ×2 (04:53→14:13)
[2023-05-08 04:59] VITALS: BP 117/63; PULSE 77; RESP 16; TEMP 36.7; O2SAT 99
[2023-05-08] MEDS: Sertraline 50 MG Tablet 150 MG PO (07:46)
[2023-05-08] MEDS: Thiamine Hydrochloride 100 MG Tablet PO (07:46)
[2023-05-08] MEDS: Folic Acid 1 MG Tablet PO (07:46)
[2023-05-08] MEDS: Pantoprazole Sodium 40 MG Tablet PO (07:46)
[2023-05-08] MEDS: rifAXIMin 550 MG Tablet PO (07:46)
[2023-05-08] MEDS: Furosemide 40 MG Tablet PO (07:47)
[2023-05-08 08:40] VITALS: RESP 18
[2023-05-08 08:43] VITALS: BP 113/68; PULSE 73; RESP 16; TEMP 36.7; O2SAT 98
[2023-05-08] MEDS: ARIPiprazole 2 MG Tablet PO (11:23)
--- NOTE | 2023-05-08 11:30 | TREXTCAR_ITS ---
Diet Diet Order/Speech Therapy: 04/26/23 10:26 Diet: Carbohydrate Controlled Food consistency:: Regular Is pt able to select menu?: Yes Diet Comments: all disposable spoon and fork, no knife Routine Orders/Code Status Suppository Type: Dulcolax 10mg Suppository Frequency: Daily PRN Wound(s) left arm: Wound Type: Laceration Left lower arm: Wound Type: Laceration right knee: Wound Type: Abrasion Therapies Physical Therapy: Eval and Treat Occupational Therapy: Eval and Treat Problem/Diagnosis (1) Debility: Status: Acute Code(s): R53.81 - Other malaise Plan #Hepatic encephalopathy, improved #alcoholic cirrhosis #hx alochol use disorder #Depression #Chronic anemia ALEX ROJO, is a 48 M with history of alcoholic cirrhosis with hepatic encephalopathy, former alcohol use disorder, tobacco use disorder, anemia, thrombocytopenia, depression/anxiety and homelessness who presented to [facility] ED on 04/22/2023 for multiple falls. He was found to have ammonia of 94 and diagnosed with hepatic encephalopathy and was started on l actulose, there was concern for medication nonadherence. Patient improved significantly with lactulose and rifaximin and he seen by PT/OT. Guardian requested patient have placement and patient agreeable. Given his history discharge delayed due to required screening and evaluation process for SNF. Patient continued to do well during admission and was discharged to [facility] in stable condition on lactulose and rifaximin with other home meds continued. Allergies/Procedures Done in Hospital Allergies pioglitazone Allergy (Mild, Verified 04/22/23 04:26) liver damange Procedures: None Type of Care/Length of Stay Estimated LOS: Convalescent Care Less Than 30 days Type of Care Needed: Skilled Rehab Potential: Good Prognosis: Good Additional Orders/Day of Discharge Day of Discharge: 05/08/23 Dietary and Speech Recommendations Dietitian Recommendations/Changes: Change to liberal CHO Control diet Available if changes in pt nutritional status and/ or desire for diet education Discharge Plan Admission Admit Date/Time: 04/22/23 15:27 Primary Reason for Your Visit: hepatic encephalopathy Attending Provider: Galina Garcia Primary Care Provider: Ita Goddard Consulting Providers: Dev Joya; Grover Gonzalez; Herbert Church Instructions Patient Instructions: Alcohol Addiction, Addiction Questionnaire Discharge Orders/Prescriptions Prescriptions: New lactulose 20 gram/30 mL Solution 20 g PO TID Qty: 0 0RF Continued pantoprazole 40 mg tablet,delayed release (DR/EC) 40 mg PO DAILY Rx Instructions: take 1 tablet by mouth once daily aripiprazole 2 mg tablet 2 mg PO QHS Patient Comments: take 1 tablet by mouth once daily promethazine 25 mg tablet 25 mg PO QHS PRN (Reason: nausea and vomiting) Qty: 30 0RF sertraline 100 mg tablet 100 mg PO QHS Patient Comments: TAKE 1 TABLET BY MOUTH EVERY DAY sertraline [Zoloft] 50 mg tablet 150 mg PO DAILY furosemide 40 mg tablet 40 mg PO DAILY Rx Instructions: take 1 tablet by mouth once daily Xifaxan 550 mg tablet 550 mg PO BID Rx Instructions: take 1 tablet by mouth twice a day folic acid 1 mg tablet 1 mg PO DAILY Qty: 90 3RF trazodone 50 mg tablet See Rx Instructions PO QHS PRN (Reason: sleep) Qty: 30 1RF Rx Instructions: May take 1/2 to 1 tablet nightly as needed scopolamine base 1 mg over 3 days patch 3 day 1 patch transdermal Q72H Qty: 10 2RF thiamine HCl (vitamin B1) [Vitamin B-1] 100 mg tablet 200 mg PO BID Qty: 60 0RF Referrals / Follow Up: [facility] [Provider Group] - Within 1 Month [facility] [Provider Group] - 06/20/23 10:30 am Ita Goddard MD [Primary Care Provider] - Within 2 Weeks Disposition Disposition (needs filled in before D/C Order can be placed[facility]
--- NOTE | 2023-05-08 11:33 | DS.PCM_ITS ---
Providers Date of Admission: 04/22/23 Date of Discharge: 05/08/23 Primary Care Physician: Dr. Ita Goddard MD Reason For Visit: HEPATIC ENCEPHALOPATHY Diagnosis Discharge Diagnosis (1) Debility: Status: Acute Code(s): R53.81 - Other malaise Plan #Hepatic encephalopathy, improved #alcoholic cirrhosis #hx alochol use disorder #Depression #Chronic anemia Medications at Discharge Home Medications folic acid 1 mg tablet 1 mg PO DAILY #90 tabs 05/02/22 trazodone 50 mg tablet See Rx Instructions PO QHS PRN sleep #30 tabs 06/27/22 pantoprazole 40 mg tablet,delayed release 40 mg PO DAILY GERD 12/21/22 aripiprazole 2 mg tablet 2 mg PO QHS PSYCH 01/05/23 promethazine 25 mg tablet 25 mg PO QHS PRN nausea and vomiting #30 tabs 01/05/23 scopolamine base 1 mg over 3 days transdermal patch 1 patch transdermal Q72H NAUSEA #10 ea 02/02/23 furosemide 40 mg tablet 40 mg PO DAILY WATER PILL 02/07/23 rifaximin 550 mg tablet (Xifaxan) 550 mg PO BID DEPRESSION 02/07/23 sertraline 100 mg tablet 100 mg PO QHS DEPRES 02/12/23 sertraline 50 mg tablet (Zoloft) 150 mg PO DAILY 02/12/23 thiamine HCl (vitamin B1) 100 mg tablet (Vitamin B-1) 200 mg (2 x 100 mg) PO BID VITAMIN #60 tabs 03/03/23 lactulose 20 gram/30 mL oral solution 20 g (30 mL) PO TID #0 mL 04/27/23 Hospital Course Summary of Care Provided Minutes Spent on Discharge: 31 Hospital Course: ALEX ROJO, is a 48 M with history of alcoholic cirrhosis with hepatic encephalopathy, former alcohol use disorder, tobacco use disorder, anemia, thrombocytopenia, depression/anxiety and homelessness who presented to [facility] ED on 04/22/2023 for multiple falls. He was found to have ammonia of 94 and diagnosed with hepatic encephalopathy and was started on lactulose, there was concern for medication nonadherence. Patient improved significantly with lactulose and rifaximin and he seen by PT/OT. Guardian requested patient have placement and patient agreeable. Given his history discharge delayed due to required screening and evaluation process for SNF. Patient continued to do well during admission and was discharged to [facility] in stable condition on lactulose and rifaximin with other home meds continued. Physical Exam Narrative General: Alert, no apparent distress HEENT: Atraumatic, normocephalic Eyes: extraocular movements grossly intact Neck: Supple Respiratory: normal respiratory effort Cardiovascular: no edema appreciated GI: nondistended Extremities: Moving all extremities Neuro: No overt focal neurological deficits Psych: Cooperative Weight / BMI Weight Weight: 76.8 kg Body Mass Index (BMI) 25.0 ABG / Lab / Microbiology Data 05/01/23 09:05 05/01/23 09:05 Microbiology: Microbiology 05/08/23 10:00 Nasal Secretion SARS-CoV-2 Antigen (Rapid) - Final D/C Instructions Discharge Diet: Carb Control Diet Meaningful Use Info Meaningful Use Diagnoses (Choose all that apply): None applicable Discharge Plan Admission Admit Date/Time: 04/22/23 15:27 Primary Reason for Your Visit: hepatic encephalopathy Attending Provider: Galina Garcia Primary Care Provider: Ita Goddard Consulting Providers: Dev Joya; Grover Gonzalez; Herbert Church Instructions Patient Instructions: Alcohol Addiction, Addiction Questionnaire Discharge Orders/Prescriptions Prescriptions: New lactulose 20 gram/30 mL Solution 20 g PO TID Qty: 0 0RF Continued pantoprazole 40 mg tablet,delayed release (DR/EC) 40 mg PO DAILY Rx Instructions: take 1 tablet by mouth once daily aripiprazole 2 mg tablet 2 mg PO QHS Patient Comments: take 1 tablet by mouth once daily promethazine 25 mg tablet 25 mg PO QHS PRN (Reason: nausea and vomiting) Qty: 30 0RF sertraline 100 mg tablet 100 mg PO QHS Patient Comments: TAKE 1 TABLET BY MOUTH EVERY DAY sertraline [Zoloft] 50 mg tablet 150 mg PO DAILY furosemide 40 mg tablet 40 mg PO DAILY Rx Instructions: take 1 tablet by mouth once daily Xifaxan 550 mg tablet 550 mg PO BID Rx Instructions: take 1 tablet by mouth twice a day folic acid 1 mg tablet 1 mg PO DAILY Qty: 90 3RF trazodone 50 mg tablet See Rx Instructions PO QHS PRN (Reason: sleep) Qty: 30 1RF Rx Instructions: May take 1/2 to 1 tablet nightly as needed scopolamine base 1 mg over 3 days patch 3 day 1 patch transdermal Q72H Qty: 10 2RF thiamine HCl (vitamin B1) [Vitamin B-1] 100 mg tablet 200 mg PO BID Qty: 60 0RF Referrals / Follow Up: [facility] [Provider Group] - Within 1 Month [facility] [Provider Group] - 06/20/23 10:30 am Ita Goddard MD [Primary Care Provider] - Within 2 Weeks Disposition Disposition (needs filled in before D/C Order can be placed): [facility] Charges/Coding Visit Charges Inpatient E&M: 89969 Disch Hosp >30min
--- NOTE | 2023-05-08 12:14 | CASEMGMT ---
Discharge Planning Discharge orders, signed med list, and covid results sent t6o [place] via [facility]. Transport was arranged with [facility] Trip #[id number]. They are to call the floor when they are at the hospital. Msg left for patients guardian. SW and nursing updated. Suraj Springer, Discharge Planning Asst.
[2023-05-08 14:15] VITALS: BP 116/72; PULSE 79; RESP 18; TEMP 37.1; O2SAT 99
--- NOTE | 2023-05-08 16:29 | CASEMGMT ---
Discharge Planning Call was received from [employer] at 3:11p regarding transport. 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 Nursing and [place] notified. Caller stated that she has been unable to get through to [facility] directly. I asked he to call main number when driver recruiter arrives. Sandra Springer, Discharge Planning Asst.
== END 2023-05-08 17:15 | DRG 280 ==
LOC: ED 15:18 → MS3 15:59
PROVIDERS: Internal Medicine; Admitting Provider Hospitalist; Emergency Provider Emergency Medicine; PCP Internal Medicine; Visit Provider Internal Medicine
DX: K76.82 Hepatic encephalopathy (principal); K70.10 Alcoholic hepatitis without ascites; D63.8 Anemia in other chronic diseases classified elsewhere; E11.9 Type 2 diabetes mellitus without complications; K70.30 Alcoholic cirrhosis of liver without ascites; F32.A Depression, unspecified; F10.11 Alcohol abuse, in remission; F17.210 Nicotine dependence, cigarettes, uncomplicated; M25.561 Pain in right knee; F17.220 Nicotine dependence, chewing tobacco, uncomplicated; Z59.00 Homelessness unspecified; T36.6X6A Underdosing of rifampicins, initial encounter; R53.81 Other malaise; R62.50 Unspecified lack of expected normal physiological development in childhood; F41.0 Panic disorder [episodic paroxysmal anxiety]; R29.6 Repeated falls; Z79.2 Long term (current) use of antibiotics; Z91.148 Patient's other noncompliance with medication regimen for other reason
CPT/HCPCS: 36415; 70450; 73564; 74177; 80048; 80053; 80076; 80307; 81001; 82077; 82140; 83036; 83690; 83735; 85025; 85027; 85610; 87811; 93005; 94668; 97116; 97162; 97166; 97530; 99285; Q9967

== ENCOUNTER → 2023-06-14 | Outpatient (CLI) | payer MEDICAID, SELFPAY ==
[2023-06-14 16:10] LABS: Absolute Lymphocyte Count 1.14 X10^3/uL (0.83-4.51); Absolute Neutrophil Count 4.2 X10^3/uL (2.0-7.7); Basophil# 0.05 X10^3/uL; Basophil% 0.8 % (0-1); Eosinophil# 0.19 X10^3/uL; Eosinophils% 3.1 % (0-5); Hematocrit 33.5 % (40-54); Hemoglobin 10.2 g/dL (13.0-16.5); Lymphocyte # 1.14 X10^3/ul (0.83-4.51); Lymphocyte % 18.8 % (19-41); Mean Corp Hgb Conc 30.4 g/dL (32-36); Mean Corpuscular Hgb 28.9 pg (27.0-32.0); Mean Corpuscular Volume 94.9 fL (80-94); Mean Platelet Vol. 9.4 fl (6.2-12.0); Monocyte% 8.3 % (0-10); NRBC Flagged by Analyzer 0 % (0-5); Neutrophil # 4.15 X10^3/uL (2.7-7.7); Neutrophil % 68.7 % (47-70); POSITIVE COUNT YES; Platelet Count 76 K/mm3 (150-450); RBC Distribution Width CV 18.6 % (11.6-14.6); RBC Distribution Width SD 64.7 fl (35.1-43.9); Red Blood Count 3.53 M/mm3 (4.6-6.2); White Blood Count 6.1 K/mm3 (4.4-11.0)
[2023-06-14 16:15] LABS: International Normalized Ratio 1.5; Prothrombin Time (Protime)PT. 18.4 SECONDS (11.7-14.9)
[2023-06-14 16:28] LABS: Vitamin D,25 Hydroxy 24.9 ng/mL
[2023-06-14 16:30] LABS: ALB/GLOB Ratio 0.8 RATIO (0.9-2.4); AST(SGOT) 51 U/L (15-37); Alanine Aminotransfer ALT/SGPT 30 U/L (16-61); Albumin, Serum 3.1 g/dL (3.2-5.0); Alkaline Phosphatase 238 U/L (45-117); Anion Gap 5 (5-15); BUN 8 mg/dL (7-18); BUN/Creat Ratio 9.9 RATIO (10-20); CRP < 2.90 mg/L (0.0-3.0); Calcium,Total 8.3 mg/dL (8.5-10.1); Chloride 109 mmol/L (98-107); Creatinine, Serum 0.81 mg/dL (0.70-1.30); EST Glomerular Filtration Rate 108 mL/min (>60); Est Glom Filt Rate - Afr Amer 131 mL/min (>60); Globulin 3.9 g/dL (2.2-4.2); Glucose 92 mg/dL (74-106); Potassium 3.7 mmol/L (3.5-5.1); Sodium Level 143 mmol/L (136-145)
[2023-06-14 16:33] LABS: Differential Indicated SCAN CRITERIA MET
[2023-06-14 16:35] LABS: Platelet Estimate MOD DEC (ADEQ)
[2023-06-14 16:36] LABS: Anisocytosis RARE; Hypochromasia RARE; Macrocytosis RARE; Red Cell Morphology N CHROM NORMAL (NORM C&C)
[2023-06-16 08:11] LABS: AFP, Tumor Marker 4.2 ng/mL (0.0-6.9)
== END | disposition home or self-care (01) ==
LOC: LAB 15:33
PROVIDERS: PCP Internal Medicine Infectious Disease; Referring Provider Internal Medicine; Visit Provider Internal Medicine
DX: K70.10 Alcoholic hepatitis without ascites (principal)
CPT/HCPCS: 36415; 80053; 82105; 82140; 82306; 85025; 85610; 86140

== ENCOUNTER → 2024-10-24 | Outpatient (CLI) | payer MEDICAID, SELFPAY ==
[2024-10-24 12:09] LABS: Absolute Lymphocyte Count 0.84 X10^3/uL (0.83-4.51); Absolute Neutrophil Count 2.4 X10^3/uL (2.0-7.7); Basophil# 0.02 X10^3/uL; Basophil% 0.6 % (0-1); Eosinophil# 0.05 X10^3/uL; Eosinophils% 1.4 % (0-5); Hematocrit 36.1 % (40-54); Hemoglobin 13.1 g/dL (13.0-16.5); Lymphocyte # 0.84 X10^3/ul (0.83-4.51); Lymphocyte % 23.1 % (19-41); Mean Corp Hgb Conc 36.3 g/dL (32-36); Mean Corpuscular Hgb 37.1 pg (27.0-32.0); Mean Corpuscular Volume 102.3 fL (80-94); Mean Platelet Vol. 9.7 fl (6.2-12.0); Monocyte# 0.33 X10^3/uL; Monocyte% 9.1 % (0-10); NRBC Flagged by Analyzer 0 % (0-5); Neutrophil # 2.38 X10^3/uL (2.7-7.7); Neutrophil % 65.5 % (47-70); POSITIVE COUNT YES; Platelet Count 80 K/mm3 (150-450); RBC Distribution Width CV 14.9 % (11.6-14.6); RBC Distribution Width SD 56.4 fl (35.1-43.9); Red Blood Count 3.53 M/mm3 (4.6-6.2); White Blood Count 3.6 K/mm3 (4.4-11.0)
[2024-10-24 12:26] LABS: Hemoglobin A1c 4.9 % (<=5.6)
[2024-10-24 12:44] LABS: International Normalized Ratio 1.4; Prothrombin Time (Protime)PT. 17.9 SECONDS (11.7-14.9)
[2024-10-24 13:24] LABS: ALB/GLOB Ratio 1.2 RATIO (0.9-2.4); AST(SGOT) 165 U/L (<=37); Alanine Aminotransfer ALT/SGPT 84 U/L (<=46); Albumin, Serum 3.7 g/dL (3.5-5.0); Alkaline Phosphatase 203 U/L (40-129); Anion Gap 11 (5-15); BUN 11 mg/dL (4-19); BUN/Creat Ratio 13.1 RATIO (10-20); Calcium,Total 9.1 mg/dL (7.6-11.0); Carbon Dioxide 22.2 mmol/L (21.0-32.0); Chloride 107 mmol/L (98-108); Cholesterol 127 mg/dL (<=200); Creatinine, Serum 0.84 mg/dL (0.70-1.20); EST Glomerular Filtration Rate 106 (>60); Globulin 3.2 g/dL (2.2-4.2); Glucose 113 mg/dL (70-99); Hepatitis B Surface Antibody Nonreactive; High Density Lipoprotein 58 mg/dL; Low Density Lipoprotein Calc. 56 mg/dL; Potassium 3.6 mmol/L (3.3-5.1); Protein, Total 6.8 g/dL (5.9-8.4); Sodium Level 140 mmol/L (133-145); Total Bilirubin 2.65 mg/dL (0.00-1.30); Triglycerides 69 mg/dL; Very Low Density Lipoprotein 14 mg/dL (5-40)
[2024-10-24 13:54] LABS: CRP < 3.00 mg/L (0.0-3.0)
[2024-10-24 14:13] LABS: LDH 330 U/L (87-241)
[2024-10-25 09:08] LABS: AFP, Tumor Marker 4.8 ng/mL (0.0-6.9); HEPATITIS B SURFACE AG Negative (Negative); Hep C Antibodies Non Reactive (Non Reactive); Hepatitis A IgM Antibody Negative (Negative); Hepatitis B Core AB IgM Negative (Negative)
== END | disposition home or self-care (01) ==
PROVIDERS: PCP Internal Medicine Infectious Disease; Referring Provider Internal Medicine; Visit Provider Internal Medicine
DX: E11.9 Type 2 diabetes mellitus without complications (principal); K70.30 Alcoholic cirrhosis of liver without ascites; K70.10 Alcoholic hepatitis without ascites; D64.9 Anemia, unspecified
CPT/HCPCS: 36415; 80053; 80061; 80074; 82105; 82140; 83036; 83615; 85025; 85610; 86140; 86706

== ENCOUNTER 2024-11-02 03:56 | Emergency (ER) | payer MEDICAID, SELFPAY ==
[2024-11-02 03:58] VITALS: BP 137/72; PULSE 61; RESP 18; TEMP 36.5; O2SAT 97; BMI 29.9
[2024-11-02 04:01] VITALS: BP 137/72; PULSE 62; RESP 18; TEMP 36.5; O2SAT 96
[2024-11-02 04:02] VITALS: TEMP 36.5; O2SAT 96
[2024-11-02] MEDS: 0.9% Normal Saline (500mL Bag) 500 ML 999 ML IV (04:31)
[2024-11-02 04:33] LABS: Mucous, Urine 0 SEEN /hpf (<or=2+); Red Blood Cells-Urine 0 SEEN /hpf (0-5); Squamous Epithelial Cells - UA 0 SEEN /hpf (0-5); White Blood Cells 0 SEEN /hpf (0-5)
[2024-11-02 04:35] LABS: Absolute Lymphocyte Count 1.54 X10^3/uL (0.83-4.51); Absolute Neutrophil Count 2.6 X10^3/uL (2.0-7.7); Basophil# 0.04 X10^3/uL; Basophil% 0.8 % (0-1); Eosinophil# 0.14 X10^3/uL; Hematocrit 35.2 % (40-54); Hemoglobin 12.9 g/dL (13.0-16.5); Lymphocyte # 1.54 X10^3/ul (0.83-4.51); Lymphocyte % 32.7 % (19-41); Mean Corp Hgb Conc 36.6 g/dL (32-36); Mean Corpuscular Volume 100.9 fL (80-94); Mean Platelet Vol. 9.7 fl (6.2-12.0); Monocyte# 0.41 X10^3/uL; Monocyte% 8.7 % (0-10); NRBC Flagged by Analyzer 0 % (0-5); Neutrophil # 2.57 X10^3/uL (2.7-7.7); Neutrophil % 54.6 % (47-70); POSITIVE COUNT YES; Platelet Count 89 K/mm3 (150-450); RBC Distribution Width CV 14.1 % (11.6-14.6); RBC Distribution Width SD 52.1 fl (35.1-43.9); Red Blood Count 3.49 M/mm3 (4.6-6.2); White Blood Count 4.7 K/mm3 (4.4-11.0)
[2024-11-02 04:44] LABS: Glucose, Dipstick Normal (Normal); Ketone-Dipstick Negative (Negative); Leukocyte Esterase-Dipstick 25 /ul (Negative); Nitrite-Dipstick Negative (Negative); Occult Blood-Urine Negative /ul (Negative); Protein-Dipstick 30 mg/dl (Negative); Urine Bilirubin Dipstick Negative (Negative); Urine Urobilinogen 4 mg/dl (Normal)
[2024-11-02 05:03] LABS: Bacteria 2+ /hpf (None Seen); Color, Urine Yellow (Yellow); Urine Clarity Clear (Clear)
[2024-11-02 05:04] LABS: AST(SGOT) 94 U/L (<=37); Alanine Aminotransfer ALT/SGPT 51 U/L (<=46); Albumin, Serum 3.4 g/dL (3.5-5.0); Alkaline Phosphatase 144 U/L (40-129); Anion Gap 11 (5-15); BUN 12 mg/dL (4-19); BUN/Creat Ratio 12.9 RATIO (10-20); Bilirubin, Direct 1.13 mg/dL (0.00-0.30); Calcium,Total 8.6 mg/dL (7.6-11.0); Carbon Dioxide 21.3 mmol/L (21.0-32.0); Chloride 105 mmol/L (98-108); Creatinine, Serum 0.91 mg/dL (0.70-1.20); EST Glomerular Filtration Rate 102 (>60); Estimated Creatinine Clearance 108.93 ml/min (50-250); Globulin 3.3 g/dL (2.2-4.2); Glucose 92 mg/dL (70-99); Potassium 3.8 mmol/L (3.3-5.1); Protein, Total 6.8 g/dL (5.9-8.4); Sodium Level 137 mmol/L (133-145)
--- NOTE | 2024-11-02 05:14 | EDS_ITS ---
HPI History of Present Illness Chief Complaint: Fall Informant: patient and EMS Narrative Narrative: Patient is a 49-year-old male with past medical history of alcoholic hepatitis as well as cirrhosis and hypertension. He states that he was seen and secondary to a fall. He reports that he was standing at the nurses station at the assisted care facility where he stays. He states he lost his balance and fell directly onto his buttocks from a standing position. He denies striking his head or any loss of consciousness. He states there is no palpitations or abnormal cardiac sensation prior to the event either. However because of the fall he was sent in for further evaluation. The patient's legal guardian wishes to have his ammonia level checked secondary to his history of cirrhosis. [facility] Medical History Former tobacco use History of alcohol abuse Alcoholic cirrhosis Anxiety and depression Hepatic encephalopathy Suicide attempt Trauma Sleep apnea Gastric reflux Former smoker History of panic attacks Gout Seasonal allergies Cirrhosis Diabetes mellitus type 2 in nonobese HTN (hypertension) Hx of gout Alcoholic hepatitis Carrier of hemochromatosis HFE gene mutation Home Medications ?Medication ?Instructions ?Recorded ?Last Taken ?Type folic acid 1 mg tablet 1 mg PO DAILY #90 tabs 05/02 Unknown Rx furosemide 40 mg tablet 40 mg PO DAILY WATER PILL 02/06/23 History rifaximin 550 mg tablet (Xifaxan) 550 mg PO BID DEPRES JEN 02/07/23 02/06/23 History acetaminophen 325 mg tablet 650 mg PO Q6H PRN 10/24/24 Unknown History aripiprazole 15 mg tablet mg PO 10/24/24 Unknown Histo ry lactulose 20 gram/30 mL oral 20 g PO TID PRN 10/24/24 Unknown History solution melatonin 3 mg tablet 3 mg PO QHS 10/24/24 Unknown History menthol 4 % topical gel (Biofreeze 1 applic topical TI D PRN 10/24/24 Unknown History (menthol)) sennosides 8.6 mg-docusate sodium 1 tab PO QDAY Unknown History 50 mg tablet (Senexon-S) sodium chloride 0.65 % nasal spray 2 spray intranasal Q6H PRN PRN 10/24/24 Unknown History aerosol (Deep Sea Nasal) spironolactone 25 mg tablet 37.5 mg (1.5 x 25 mg) PO D AILY 30 10/24/24 Unknown Rx days #45 tabs thiamine HCl (vitamin B1) 100 mg 100 mg PO QDAY VITAMI N 10/24/24 Unknown History tablet (Vitamin B-1) carvedilol 6.25 mg tablet 6.25 mg PO BID 1 month #60 t abs 10/28/24 Unknown Rx quetiapine 50 mg tablet 25 mg PO QHS 10/28/24 Unknow n History sertraline 100 mg tablet 50 mg PO QHS DEPRES 10/28/24 Unknown History Allergy/AdvReac Type Severity Reaction Status Date / Time pioglitazone Allergy Mild liver Verified 11/02/24 03:58 damange Family History Other CVA (cerebral vascular accident) Cancer Cirrhosis Heart disease Hypertension Thyroid disorder Surgical History History of esophagogastroduodenoscopy (EGD) History of surgery Social History housing: homeless current occupation: [id number] Smoking Status: Current every day smoker tobacco type: cigarettes and pipe alcohol intake: former substance use type: does not use what type of physical activity do you participate in: other frequency: 1-2 times per week ROS ROS ED Constitutional Constitutional ED: Denies chills or fever(s) Eyes Eyes: Denies blurry vision or change in vision ENT ENT ED: Denies sore throat Cardiovascular Cardiovascular: Reports other Details: Negative syncope ; Denies chest pain, palpitations or racing heartbeat Respiratory/Chest Respiratory/Chest: Denies cough or dyspnea Gastrointestinal Gastrointestinal: Denies abdominal pain, diarrhea, nausea or vomiting Genitourinary Genitourinary ED: Denies dysuria Musculoskeletal Musculoskeletal: Denies back pain or neck pain Integumentary Denies Abrasions Neurologic Neurologic: Denies headache(s) Hematologic/Lymphatic Hematologic/Lymphatic: Denies easy bleeding or easy bruising EXAM Physical Exam Const Vital Signs: 11/02/24 03:58 11/02/24 04:01 11/02/24 04:02 Temperature 97.7 F L 97.7 F L 97.7 F L Temperature Source Oral Oral Pulse Rate 61 62 Respiratory Rate 18 18 Respiratory Effort Normal Non-Labored Respiratory Depth Normal Respiratory Pattern Normal Blood Pressure 137/72 H 137/72 H Blood Pressure Mean 93 93 Pulse Ox 97 96 96 Oxygen Delivery Method Room Air Room Air Room Air 11/02/24 05:27 11/02/24 06:00 11/02/24 08:00 Temperature 98.0 F Temperature Source Pulse Rate 78 63 62 Respiratory Rate 18 16 16 Respiratory Effort Respiratory Depth Respiratory Pattern Blood Pressure 124/72 H 116/61 Blood Pressure Mean 89 79 Pulse Ox 94 95 96 Oxygen Delivery Method Room Air Positive well nourished and well developed General Appearance ED: well developed HEENT HEENT Narrative: Normocephalic atraumatic No signs of depressed or basilar skull fracture Eyes PERRL and EOMs intact bilaterally Eyes Narrative: Faint scleral icterus is noted Neck supple Neck Narrative: No bony deformity or step-off of the cervical spine no midline tenderness to palpation No nuchal rigidity or meningeal signs Chest Wall palpation of chest normal Chest Narrative: No bony deformity or pain with palpation No subcutaneous emphysema noted Resp normal respiratory effort and clear to auscultation bilaterally Cardio regular rate and regular rhythm GI normal to inspection, nondistended, normoactive bowel sounds, non-tender, non- distended and no masses GI Narrative: No voluntary guarding or rigidity or pulsatile mass No fluid wave or peritoneal signs noted Auscultation: normoactive bowel sounds Palpation: soft Back/Spine Back/Spine Narrative: No bony deformity or step-off of the thoracic or lumbar spine no midline tenderness to palpation Extremity normal to inspection Extremity Narrative: Pelvis is stable there is no shortening or external rotation of either lower extremity Patient is able to move both upper and lower extremities without difficulty Neuro oriented x3, CN's II-XII intact bilaterally and no sensory deficits noted Neuro Narrative: GCS of 15 Cranial nerves II through XII are grossly intact without focal neurologic deficit No pronator drift no dysmetria no truncal ataxia NIH stroke scale score of 0 Sensorium / Orientation: alert Motor Exam: strength 5/5 throughout Psych Psych Narrative: Patient has a flat affect Skin no rashes or lesions noted and no wounds Skin Narrative: Mild jaundice is noted consistent with history of cirrhosis No overlying soft tissue changes to suggest trauma or infection General Skin Exam: jaundice MDM MDM MDM Narrative Medical decision making narrative: Patient presented to the ER with stable vitals. He reported that he simply lost his balance and fell directly onto his buttocks from a standing position. He did not strike his head or have LOC nor did he report palpitations prior to the event. Based on his physical exam I have low concern for underlying trauma such as skull fracture subarachnoid or subdural hemorrhage pelvic fracture or vertebral compression fracture. Therefore do not feel there is need for imaging. As he has have a history of cirrhosis and legal guardian is requesting his ammonia level be checked basic laboratory studies were ordered. Patient's H&H is stable he does not have signs of acute kidney injury his total and direct bilirubin are elevated which correlate with his mild scleral icterus and jaundice. His urine sample shows no sign of blood or infection. Please note the urine sample does show +2 bacteria but there are no white blood cells and h is nitrites are negative and he does not have urinary symptoms and therefore this does not correlate with a UTI and there is no need for further workup of it. The patient's ammonia is elevated at 838 however chart review reveals that on October 24 of this year it was higher at 185. I brought this up to the patient and he states that he has not been taking his lactulose because he was informed that he does not have to take it scheduled anymore but only as needed. Therefore that would correlate with why his values are elevated but as they are downtrending from 9 days ago and at this time he is awake and alert and oriented I do not feel there is need for admission but simply that he take his lactulose as directed. Patient was informed of this and is agreeable to the plan of care and his vitals remained stable without signs of underlying infection he is otherwise safe for discharge History & Record Review Discussion w/independent historian: EMS personnel and Patient Lab Data Attestation: I reviewed the patient's lab results. Labs: Laboratory Results - last 24 hr 11/02/24 11/02/24 04:20 04:25 WBC 4.7 RBC 3.49 L Hgb 12.9 L Hct 35.2 L MCV 100.9 H MCH 37.0 H MCHC 36.6 H RDW Std Deviation 52.1 H RDW Coeff of Kaela 14.1 Plt Count 89 L MPV 9.7 Immature Gran % (Auto) 0.200 Neut % (Auto) 54.6 Lymph % (Auto) 32.7 [place] % (Auto) 8.7 Eos % (Auto) 3.0 Baso % (Auto) 0.8 Absolute Neuts (auto) 2.6 Absolute Lymphs (auto) 1.54 Nucleated RBC % 0 Sodium 137 Potassium 3.8 Chloride 105 Carbon Dioxide 21.3 Anion Gap 11 BUN 12 Creatinine 0.91 Estim Creat Clear Calc 108.93 Est GFR (MDRD) Non-Af 102 BUN/Creatinine Ratio 12.9 Glucose 92 Calcium 8.6 Total Bilirubin 2.90 H Direct Bilirubin 1.13 H AST 94 H ALT 51 H Alkaline Phosphatase 144 H Ammonia 138.0 H Total Protein 6.8 Albumin 3.4 L Globulin 3.3 Urine Color Yellow Urine Clarity Clear Urine pH 6.0 Ur Specific [place] 1.020 Urine Protein 30 H Urine Glucose (UA) Normal Urine Ketones Negative Urine Occult Blood Negative Urine Nitrite Negative Urine Bilirubin Negative Urine Urobilinogen 4 H Ur Leukocyte Esterase 25 H Urine RBC 0 SEEN Urine WBC 0 SEEN Ur Squamous Epith Cells 0 SEEN Urine Bacteria 2+ Urine Mucus 0 SEEN Discharge Plan Triage Chief Complaint: Fall ED Provider: Min Butt Dx/Rx/DC Orders Clinical Impression: Accidental fall, Cirrhosis, Hyperammonemia, Alcoholic hepatitis, Hypertension Instructions: Ammonia, ED Cirrhosis Prescriptions: No Action lactulose 20 gram/30 mL solution 20 g PO TID PRN acetaminophen 325 mg tablet 650 mg PO Q6H PRN sennosides-docusate sodium [Senexon-S] 8.6-50 mg tablet 1 tab PO QDAY melatonin 3 mg tablet 3 mg PO QHS aripiprazole 15 mg tablet PO Deep Sea Nasal 0.65 % aerosol,spray 2 spray intranasal Q6H PRN PRN Rx Instructions: while awake Biofreeze (menthol) 4 % gel 1 applic topical TID PRN thiamine HCl (vitamin B1) [Vitamin B-1] 100 mg tablet 100 mg PO QDAY spironolactone 25 mg tablet 37.5 mg PO DAILY 30 Days Qty: 45 2RF Rx Instructions: Hold if serum potassium more than 5.0. furosemide 40 mg tablet 40 mg PO DAILY Rx Instructions: take 1 tablet by mouth once daily Xifaxan 550 mg tablet 550 mg PO BID Rx Instructions: take 1 tablet by mouth twice a day folic acid 1 mg tablet 1 mg PO DAILY Qty: 90 3RF carvedilol 6.25 mg tablet 6.25 mg PO BID 30 Days Qty: 60 4RF Rx Instructions: must administer with a meal/food sertraline 100 mg tablet 50 mg PO QHS Patient Comments: TAKE 1 TABLET BY MOUTH EVERY DAY quetiapine 50 mg tablet 25 mg PO QHS Primary Care Provider: Lidia Otero Referrals: Lidia Otero MD [Primary Care Provider] - Activity Restrictions/Additional Instructions: There are no obvious signs of trauma from your fall this evening. Your ammonia level was 185 on October 24. It is now 138. It is a good sign that it is downtrending but I would recommend taking your lactulose as directed 3 times a day for at least the next 7 days to ensure it continues to downtrend. The fact that you are awake and alert to person and place goes against the need for admission. However if mental status worsens or there is any further concerns please return to the ER for repeat evaluation Print Language: Citizen [place] Disposition Disposition: Home, Self Care
[2024-11-02 05:27] VITALS: BP 124/72; PULSE 78; RESP 18; TEMP 36.7; O2SAT 94
[2024-11-02 06:00] VITALS: BP 116/61; PULSE 63; RESP 16; O2SAT 95
--- NOTE | 2024-11-02 06:14 | ED.RN ---
Attempting to call [facility] for transport. They are attempting to see if they can get him a ride back. Phone call placed to legal guardian, she states that [facility] is responsible for his transport and she does not transport her wards.
--- NOTE | 2024-11-02 06:45 | ED.RN ---
Phone call placed to [facility]. Spoke to Pat, he states that since patient has Medicaid, he lives in assisted living, was transported to ED for evaluation for a fall, Medicaid will pay for a wheelchair ride back to the facility.
[2024-11-02 08:00] VITALS: PULSE 62; RESP 16; O2SAT 96
== END 2024-11-02 09:18 | disposition home or self-care (01) ==
PROVIDERS: Emergency Provider Emergency Medicine; PCP Hospitalist; Visit Provider Emergency Medicine
DX: Z04.3 Encounter for examination and observation following other accident (principal); K74.60 Unspecified cirrhosis of liver; K70.10 Alcoholic hepatitis without ascites; E11.9 Type 2 diabetes mellitus without complications; E72.20 Disorder of urea cycle metabolism, unspecified; I10 Essential (primary) hypertension; F17.210 Nicotine dependence, cigarettes, uncomplicated; K21.9 Gastro-esophageal reflux disease without esophagitis; Z79.899 Other long term (current) drug therapy; W19.XXXA Unspecified fall, initial encounter
CPT/HCPCS: 80048; 80076; 81001; 82140; 85025; 96360; 99285; A4216

== ENCOUNTER 2024-11-09 07:57 | Emergency (ER) | payer MEDICAID, SELFPAY ==
[2024-11-09 07:57] VITALS: TEMP 36.7; BMI 30.2
[2024-11-09 08:01] VITALS: BP 118/65; PULSE 68; RESP 16; O2SAT 98
--- NOTE | 2024-11-09 08:02 | CT_ITS ---
EXAM: CT Head Without Intravenous Contrast CLINICAL INDICATION: AMS TECHNIQUE: Axial computed tomography images of the head/brain without intravenous contrast. This CT exam was performed using one or more of the following dose reduction techniques: automated exposure control, adjustment of the mA and/or kV according to patient size, and/or use of iterative reconstruction technique. COMPARISON: No relevant prior studies available. FINDINGS: BRAIN AND EXTRA-AXIAL SPACES: The cerebral and cerebellar sulci are mildly prominent consistent with mild brain atrophy. No acute intracranial hemorrhage, midline shift or mass effect. If symptoms persist, further evaluation with MRI is recommended. Mild areas of decreased attenuation in the deep cerebral white matter are consistent with mild small vessel ischemic/degenerative changes. BONES/JOINTS: Unremarkable. No acute fracture. SOFT TISSUES: Unremarkable. SINUSES: Unremarkable as visualized. No acute sinusitis. MASTOID AIR CELLS: Unremarkable as visualized. No mastoid effusion. CT/Brain/Head without Contrast IMPRESSION: 1. No acute intracranial hemorrhage, midline shift or mass effect. If symptoms persist, further evaluation with MRI is recommended. 2. Mild small vessel ischemic/degenerative changes. Reading Location: [id number]
--- NOTE | 2024-11-09 08:02 | RAD_ITS ---
EXAM: XR Chest, 1 View CLINICAL INDICATION: CONFUSION TECHNIQUE: Frontal view of the chest. COMPARISON: No relevant prior studies available. FINDINGS: LUNGS AND PLEURAL SPACES: Unremarkable. No consolidation. No pneumothorax. HEART: Unremarkable. No cardiomegaly. MEDIASTINUM: Unremarkable. Normal mediastinal contour. BONES/JOINTS: Unremarkable. No acute fracture. RAD/Chest 1 View (Portable) IMPRESSION: No acute cardiopulmonary process. Reading Location: [id number]
--- NOTE | 2024-11-09 08:11 | EX.ED.DYSGE1 ---
HPI History of Present Illness Chief Complaint: Alt LOC Informant: patient and other (Assisted living facility staff) Narrative Narrative: Patient is a 49-year-old male with history of alcoholic cirrhosis and hepatic encephalopathy as well as diabetes and hypertension presenting for concern of altered mental status. Nursing staff states that they took care of him yesterday and he was normal but today he seemed more confused. They state he is normally ANO x 4 but today he was ANO x 2. They were concerned that his lactate was elevated. Patient was seen in the ER for fall 1 week ago (11/02) at that time was found to have an elevated ammonia level. Apparently had not been taking his lactulose scheduled. It was downtrending and patient was discharged back. Patient states that his last bowel movement was yesterday. He was having bowel meant 3 times a day. He states he is only getting his lactulose once a day. He thinks his ammonia is going up. He states he can tell his ammonia is going up when he gets a little itchy. He denies any acute complaints including chest pain, fever, nausea or abdominal pain. Denies any shortness of breath. Denies any black or blood in his stool. No other complaints or concerns at this time. [facility] Medical History Former tobacco use History of alcohol abuse Alcoholic cirrhosis Anxiety and depression Hepatic encephalopathy Suicide attempt Trauma Sleep apnea Gastric reflux Former smoker History of panic attacks Gout Seasonal allergies Cirrhosis Diabetes mellitus type 2 in nonobese HTN (hypertension) Hx of gout Alcoholic hepatitis Carrier of hemochromatosis HFE gene mutation Home Medications ?Medication ?Instructions ?Recorded ?Last Taken ?Type folic acid 1 mg tablet 1 mg PO DAILY #90 tabs 05/02/22 Unknown Rx furosemide 40 mg tablet 40 mg PO DAILY WATER PILL 02/07/23 02/06/23 History rifaximin 550 mg tablet (Xifaxan) 550 mg PO BID DEPRESSION 02/07/23 02/06/23 History acetaminophen 325 mg tablet 650 mg PO Q6H PRN 10/24/24 Unknown History aripiprazole 15 mg tablet mg PO 10/24/24 Unknown History melatonin 3 mg tablet 3 mg PO QHS 10/24/24 Unknown History menthol 4 % topical gel (Biofreeze 1 applic topical TID PRN 10/24/24 Unknown History (menthol)) sennosides 8.6 mg-docusate sodium 1 tab PO QDAY 10/24/24 Unknown History 50 mg tablet (Senexon-S) sodium chloride 0.65 % nasal spray 2 spray intranasal Q6H PRN PRN 10/24/24 Unknown History aerosol (Deep Sea Nasal) spironolactone 25 mg tablet 37.5 mg (1.5 x 25 mg) PO DAILY 30 10/24/24 Unknown Rx days #45 tabs thiamine HCl (vitamin B1) 100 mg 100 mg PO QDAY VITAMIN 10/24/24 Unknown History tablet (Vitamin B-1) carvedilol 6.25 mg tablet 6.25 mg PO BID 1 month #60 tabs 10/28/24 Unknown Rx quetiapine 50 mg tablet 25 mg PO QHS 10/28/24 Unknown History sertraline 100 mg tablet 50 mg PO QHS DEPRES 10/28/24 Unknown History lactulose 20 gram/30 mL oral 20 g (30 mL) PO TID #0 mL 11/09/24 Unknown Rx solution Allergy/AdvReac Type Severity Reaction Status Date / Time pioglitazone Allergy Mild liver Verified 11/02/24 03:58 damange Family History Other CVA (cerebral vascular accident) Cancer Cirrhosis Heart disease Hypertension Thyroid disorder Surgical History History of esophagogastroduodenoscopy (EGD) History of surgery Social History housing: homeless current occupation: [employer] Smoking Status: Current every day smoker tobacco type: cigarettes and pipe alcohol intake: former substance use type: does not use what type of physical activity do you participate in: other frequency: 1-2 times per week ROS ROS ED Constitutional Constitutional ED: Denies chills or fever(s) Cardiovascular Cardiovascular: Denies chest pain Respiratory/Chest Respiratory/Chest: Denies cough or dyspnea Gastrointestinal Gastrointestinal: Denies abdominal pain, melena or nausea Musculoskeletal Musculoskeletal: Denies arthralgias or myalgias Integumentary Denies rash Neurologic Neurologic: Denies headache(s) or weakness Psychiatric Psychiatric: Denies anxiety or depression Hematologic/Lymphatic Hematologic/Lymphatic: Reports easy bruising EXAM Physical Exam Const Vital Signs: 11/09/24 07:57 11/09/24 08:01 11/09/24 10:00 Temperature 98.1 F Temperature Source Oral Pulse Rate 68 70 Respiratory Rate 16 18 Blood Pressure 118/65 122/83 H Blood Pressure Mean 82 96 Pulse Ox 98 97 Oxygen Delivery Method Room Air Room Air 11/09/24 10:48 Temperature 98.1 F Temperature Source Pulse Rate 59 L Respiratory Rate 18 Blood Pressure 129/75 H Blood Pressure Mean 93 Pulse Ox 96 Oxygen Delivery Method Positive well nourished and well developed General Appearance ED: well developed and NAD HEENT HEENT Narrative: Mildly dry mucosal membranes Eyes PERRL General Eye ED: Negative for scleral icterus Neck supple and no JVD Chest Wall inspection of chest normal Resp normal respiratory effort and clear to auscultation bilaterally Cardio regular rate and regular rhythm GI normal to inspection, nondistended, normoactive bowel sounds and non-tender GI Narrative: No fluid wave appreciated. No tenderness. Extremity normal to inspection General Extremety ED: Negative for edema General Extremity: Negative for edema Neuro oriented x3, CN's II-XII intact bilaterally and no sensory deficits noted Neuro Narrative: No focal deficits of weakness. Very subtle asterixis noted of the right upper extremity. Patient able to tell me his name, the day of the week, the president and why he is here as well as that he is at [facility]. Sensorium / Orientation: alert Motor Exam: Negative for general weakness Psych mental status grossly normal Skin Skin Narrative: Slight jaundice discoloration MDM MDM MDM Narrative Medical decision making narrative: Patient evaluated for mental status change. Per nurse reports patient is altered compared to how he was yesterday. Here he is ANO x 3. Given his history and the fact that he is only having 1 bowel movement today and only taking his lactulose daily suspect that this is likely hepatic encephalopathy or possibly elevated ammonia level. Will check this. Other differential includes JHONY and infection. He denies any chest pain and will obtain screening EKG. If this is normal I do not think he requires further troponins. As he is presenting again with altered mental status will obtain a CT of the brain out of abundance of caution and ensure there is no intracranial hemorrhage. Workup is largely unremarkable except for elevation of his ammonia at 136. He has chronic elevation of his bilirubin and transaminitis but this is stable and actually downtrending. Ammonia was 138 1 week ago and 185 earlier this month. No signs of infection or acute intracranial process to otherwise explain his symptoms. Patient states he is only getting his lactulose once a day. Counseled on the importance of taking it 3 times a day to get his ammonia level down. At this time I do not think he requires admission for this especially as he has a medication and is already in an assisted living facility. Will write discharge instructions indicating the need for taking it 3 times a day. I did attempt to call the patient's PCP to discuss the importance of the patient having his lactulose 3 times a day per titrating to bowel movements 3 times a day. Unable to get a hold of anyone. That we will have nursing discussed with nursing at patient's assisted living facility to help ensure compliance with this. After the patient was discharged from the hospital I was able to finally speak to the patient's primary care doctor. She agrees that patient should be on scheduled lactulose instead of as needed. She will again speak with the nursing facility about making sure it is administered and possibly look into switching nurse facility as it sounds like he is not doing well at this assisted living facility. History & Record Review Additional record(s) reviewed:: Prior ED visit (ER visit from 11/02/2024-had elevated ammonia but this was downtrending. Encouraged to increase his lactulose.) Lab Data Attestation: I reviewed the patient's lab results. Labs: Laboratory Results - last 24 hr 11/09/24 11/09/24 08:11 08:17 WBC 3.3 L RBC 3.35 L Hgb 12.5 L Hct 34.3 L MCV 102.4 H MCH 37.3 H MCHC 36.4 H RDW Std Deviation 55.1 H RDW Coeff of Kaela 14.6 Plt Count 76 L MPV 9.6 Immature Gran % (Auto) 0.300 Neut % (Auto) 56.6 Lymph % (Auto) 29.0 [place] % (Auto) 10.2 H Eos % (Auto) 3.0 Baso % (Auto) 0.9 Absolute Neuts (auto) 1.9 L Absolute Lymphs (auto) 0.97 Nucleated RBC % 0 Platelet Estimate MOD DEC Polychromasia 1+ Ovalocytes 1+ Sodium 140 Potassium 3.7 Chloride 107 Carbon Dioxide 23.6 Anion Gap 10 BUN 11 Creatinine 0.88 Estim Creat Clear Calc 110.80 Est GFR (MDRD) Non-Af 105 BUN/Creatinine Ratio 12.6 Glucose 108 H Calcium 8.6 Total Bilirubin 2.19 H Direct Bilirubin 1.11 H AST 60 H ALT 31 Alkaline Phosphatase 212 H Ammonia 136.0 H Total Protein 6.7 Albumin 3.4 L Globulin 3.3 Urine Color Yellow Urine Clarity Clear Urine pH 6.5 Ur Specific [place] 1.015 Urine Protein 30 H Urine Glucose (UA) Normal Urine Ketones Negative Urine Occult Blood Negative Urine Nitrite Negative Urine Bilirubin Negative Urine Urobilinogen 4 H Ur Leukocyte Esterase 25 H Urine RBC 0 SEEN Urine WBC 0-5 SEEN Ur Squamous Epith Cells 0 SEEN Urine Bacteria 0 SEEN Urine Mucus 0 SEEN Radiography Chest X-Ray - ED: 1 View, Read by ED Physician, Read by Radiologist and No Acute Disease Diagnostic Testing: Clinical Impression(s) from Imaging Studies Brain CT 11/09/24 08:02 IMPRESSION: 1. No acute intracranial hemorrhage, midline shift or mass effect. If symptoms persist, further evaluation with MRI is recommended. 2. Mild small vessel ischemic/degenerative changes. Reading Location: [facility] Chest X-Ray 11/09/24 08:02 IMPRESSION: No acute cardiopulmonary process. Reading Location: [facility] Rhythm Strip Rhythm Strip: Sinus Rhythm Rate: 62 Ectopy: None EKG Initial EKG: Attestation: I personally reviewed and interpreted this EKG as follows: Interpretation: Sinus Rhythm Comments: Normal sinus rhythm at a rate of 62 bpm Normal axis Normal intervals Normal ST segments No change compared to prior EKG on 04/22/2023 Management Discussion w/another healthcare provider: PCP Discharge Plan Triage Chief Complaint: Alt LOC ED Provider: Jami Gabriel Dx/Rx/DC Orders Clinical Impression: Hyperammonemia, Disturbance in physical behavior, Alcoholic cirrhosis of liver without ascites Instructions: ED Cirrhosis Prescriptions: Changed lactulose 20 gram/30 mL solution 20 g PO TID Qty: 0 0RF No Action acetaminophen 325 mg tablet 650 mg PO Q6H PRN sennosides-docusate sodium [Senexon-S] 8.6-50 mg tablet 1 tab PO QDAY melatonin 3 mg tablet 3 mg PO QHS aripiprazole 15 mg tablet PO Deep Sea Nasal 0.65 % aerosol,spray 2 spray intranasal Q6H PRN PRN Rx Instructions: while awake Biofreeze (menthol) 4 % gel 1 applic topical TID PRN thiamine HCl (vitamin B1) [Vitamin B-1] 100 mg tablet 100 mg PO QDAY spironolactone 25 mg tablet 37.5 mg PO DAILY 30 Days Qty: 45 2RF Rx Instructions: Hold if serum potassium more than 5.0. furosemide 40 mg tablet 40 mg PO DAILY Rx Instructions: take 1 tablet by mouth once daily Xifaxan 550 mg tablet 550 mg PO BID Rx Instructions: take 1 tablet by mouth twice a day folic acid 1 mg tablet 1 mg PO DAILY Qty: 90 3RF carvedilol 6.25 mg tablet 6.25 mg PO BID 30 Days Qty: 60 4RF Rx Instructions: must administer with a meal/food sertraline 100 mg tablet 50 mg PO QHS Patient Comments: TAKE 1 TABLET BY MOUTH EVERY DAY quetiapine 50 mg tablet 25 mg PO QHS Primary Care Provider: Lidia Otero Referrals: Lidia Otero MD [Primary Care Provider] - Activity Restrictions/Additional Instructions: Lab work is largely normal except for the ammonia that is still elevated. Pedro needs to be taking his lactulose 3 times a day scheduled and not as needed. He does not require admission for this however and is not going up significantly. Print Language: Irish Disposition Disposition: NonSkilled NH/Intermed Care Discharge Location: [facility] Discharge Date/Time: 11/09/24 11:58
[2024-11-09 08:20] LABS: Absolute Lymphocyte Count 0.97 X10^3/uL (0.83-4.51); Absolute Neutrophil Count 1.9 X10^3/uL (2.0-7.7); Basophil# 0.03 X10^3/uL; Basophil% 0.9 % (0-1); Hematocrit 34.3 % (40-54); Hemoglobin 12.5 g/dL (13.0-16.5); Lymphocyte # 0.97 X10^3/ul (0.83-4.51); Mean Corp Hgb Conc 36.4 g/dL (32-36); Mean Corpuscular Hgb 37.3 pg (27.0-32.0); Mean Corpuscular Volume 102.4 fL (80-94); Mean Platelet Vol. 9.6 fl (6.2-12.0); Monocyte# 0.34 X10^3/uL; Monocyte% 10.2 % (0-10); NRBC Flagged by Analyzer 0 % (0-5); Neutrophil # 1.89 X10^3/uL (2.7-7.7); Neutrophil % 56.6 % (47-70); POSITIVE COUNT YES; Platelet Count 76 K/mm3 (150-450); RBC Distribution Width CV 14.6 % (11.6-14.6); RBC Distribution Width SD 55.1 fl (35.1-43.9); Red Blood Count 3.35 M/mm3 (4.6-6.2); White Blood Count 3.3 K/mm3 (4.4-11.0)
[2024-11-09 08:21] LABS: Bacteria 0 SEEN /hpf (None Seen); Mucous, Urine 0 SEEN /hpf (<or=2+); Red Blood Cells-Urine 0 SEEN /hpf (0-5); Squamous Epithelial Cells - UA 0 SEEN /hpf (0-5)
[2024-11-09 08:21] LABS: Differential Indicated SCAN CRITERIA MET
[2024-11-09 08:30] LABS: Color, Urine Yellow (Yellow); Glucose, Dipstick Normal (Normal); Ketone-Dipstick Negative (Negative); Leukocyte Esterase-Dipstick 25 /ul (Negative); Nitrite-Dipstick Negative (Negative); Occult Blood-Urine Negative /ul (Negative); Protein-Dipstick 30 mg/dl (Negative); Specific Gravity, Urine 1.015 (1.002-1.030); Urine Bilirubin Dipstick Negative (Negative); Urine Clarity Clear (Clear); Urine Urobilinogen 4 mg/dl (Normal); Urine pH 6.5 (5.0 - 8.0)
[2024-11-09 08:55] LABS: White Blood Cells 0-5 SEEN /hpf (0-5)
[2024-11-09 09:04] LABS: AST(SGOT) 60 U/L (<=37); Alanine Aminotransfer ALT/SGPT 31 U/L (<=46); Albumin, Serum 3.4 g/dL (3.5-5.0); Alkaline Phosphatase 212 U/L (40-129); Anion Gap 10 (5-15); BUN 11 mg/dL (4-19); BUN/Creat Ratio 12.6 RATIO (10-20); Bilirubin, Direct 1.11 mg/dL (0.00-0.30); Calcium,Total 8.6 mg/dL (7.6-11.0); Carbon Dioxide 23.6 mmol/L (21.0-32.0); Chloride 107 mmol/L (98-108); Creatinine, Serum 0.88 mg/dL (0.70-1.20); EST Glomerular Filtration Rate 105 (>60); Globulin 3.3 g/dL (2.2-4.2); Glucose 108 mg/dL (70-99); Potassium 3.7 mmol/L (3.3-5.1); Protein, Total 6.7 g/dL (5.9-8.4); Sodium Level 140 mmol/L (133-145); Total Bilirubin 2.19 mg/dL (0.00-1.30)
[2024-11-09 09:26] LABS: Platelet Estimate MOD DEC (ADEQ); Polychromasia 1+
[2024-11-09 09:27] LABS: Ovalocyte 1+
[2024-11-09 10:00] VITALS: BP 122/83; PULSE 70; RESP 18; O2SAT 97
[2024-11-09 10:48] VITALS: BP 129/75; PULSE 59; RESP 18; TEMP 36.7; O2SAT 96
== END 2024-11-09 11:58 | disposition intermediate care facility (04) ==
PROVIDERS: Emergency Provider Emergency Medicine; PCP Hospitalist; Visit Provider Emergency Medicine
DX: R41.82 Altered mental status, unspecified (principal); K70.30 Alcoholic cirrhosis of liver without ascites; E11.9 Type 2 diabetes mellitus without complications; E72.20 Disorder of urea cycle metabolism, unspecified; I10 Essential (primary) hypertension; Z59.00 Homelessness unspecified; F17.210 Nicotine dependence, cigarettes, uncomplicated; K21.9 Gastro-esophageal reflux disease without esophagitis; F17.290 Nicotine dependence, other tobacco product, uncomplicated
CPT/HCPCS: 70450; 71045; 80048; 80076; 81001; 82140; 85025; 93005; 99285; A4216

== ENCOUNTER 2024-12-20 02:32 | Emergency (ER) | payer MEDICAID, SELFPAY ==
[2024-12-20 02:33] VITALS: BP 120/64; PULSE 90; RESP 18; TEMP 36.7; O2SAT 98; BMI 28.8
--- OUTSIDE RECORDS SUMMARY | 2024-12-20 03:04 | XMS RPT_ITS | CCD ---
Author Organization [facility] Care Team Providers Care Acquisition Marketing Coordinator Name Role Phone Deisi COMMODITY SPECIALIST, COMMODITY SPECIALIST-C Debra Manuel Attending Provider [phone] Care Physician, No Primary Primary Care Provider Unavailable Care Physician, No Primary Referring Provider Un available Unavailable [facility]dard Attending Provider [phone] Dr. Nate Martinez Attending Provider 1([phone]) Dr. Nate Martinez Other Provider 1(330) Dr. Greg Goddard Primary Care Provider Dr. Greg Goddard Referring Provider 1([phone]) Dr. Greg Goddard Primary Care Provider Dr. Greg Goddard Referring Provider [phone] Care Physician, No Primary Referring Provider Un available Dr. Greg Goddard Attending Provider [phone] Care Physician, No Primary Referring Provider Un available Dr. Nate Martinez Attending Provider [phone] Dr. Greg Goddard Primary Care Provider Dr. Greg Goddard Referring Provider 1(330) Dr. Nate Martinez Other Provider [phone]) Deisi CALIX NP-C Debra Manuel Attending Provider [phone] Dr. Greg Goddard Primary Care Provider Dr. Nate Martinez Attending Provider 1(330) Dr. Greg Goddard Primary Care Provider Dr. Greg Goddard Referring Provider [phone]) Dr. Nate Martinez Attending Provider 1(330) Michelle, Dr. Sullivan Other Provider [phone] Deisi COMMODITY SPECIALIST, COMMODITY SPECIALIST-C Debra Manuel Attending Provider [phone] Dr. Amanda Palomo Emergency Provider Devin, Dr. Herr Admit Provider Dr. Nemesio Beltran Attending Provider Dr. Nemesio Beltran Other Provider Ginny, Dr. Tara Flores Attending Provider Ginny, Dr. Tara Flores Other Provider Dr. Galina Garcia Attending Provider Dr. Galina Garcia Other Provider Dr. Greg Goddard Primary Care Provider Dr. Greg Goddard Referring Provider [phone] Dr. Nate Martinez Attending Provider [phone] Michelle, Dr. Sullivan Other Provider [phone] Galina Garcia Referring Provider GREG GODDARD Primary Care Unavailable FATCHIKOVA, GLORIA (RES) Admitting Unavai lable FATCHIMAKENZIEA, GLORIA (RES) Attending Unavai elsale ARON MCGHEE Consulting Unavailable BRITANY HAIDER Attending Unavailable BRITANY HAIDER Admitting Unavailable GREG GODDARD Primary Care Unavailable GREG GODDARD Primary Care Unavailable ELVIA RASMUSSEN Attending Unavailable Greg Goddard MD Primary Care Provider [phone] Unavailable Primary Care Provider UnavailGreg Armas MD Primary Care Provider [phone] Dewayne Eric Unavailable GREG GODDARD Primary Care Unavailable PROVIDER, UNKNOWN Referring Unavailable CIPRIANO CEDEÑO Attending Unavailable No Family, Physician Primary Care Unavailable CIPRIANO CEDEÑO Referring Unavailable No Family, Physician Primary Care Unavailable SIPPEL, ALEX Admitting Unavailable SIPPEL, ALEX Consulting Unavailable SIPPEL, ALEX Attending Unavailable YONAS BARON Consulting Unavailable MCKINLEY LIZAMA Consulting Unavailable SANDRA ORELLANA Consulting Unavailable No Family, Physician Primary Care Unavailable STRAFFIN, CLIFF Referring Unavailable No Family, Physician Primary Care Unavailable STRAFFIN, CLIFF Referring Unavailable No Family, Physician Primary Care Unavailable CIPRIANO CEDEÑO Referring Unavailable No Family, Physician Primary Care Unavailable CIPRIANO CEDEÑO Referring Unavailable Katia Lan MD Primary Care Provider [phone] PITER GAINES JR Attending Unavailable OMRAN, YASSER Primary Care Unavailable EUGENIE, NIZAR N Referring Unavailable EUGENIE, NIZAR N Attending Unavailable GREG GODDARD Primary Care Unavailable EUGENIE, NIZAR N Attending Unavailable GREG GODDARD Primary Care Unavailable SELF Referring Unavailable OMRAN, YASSER Primary Care Unavailable EUGENIE, NIZAR N Referring Unavailable OMRAN, YASSER Primary Care Unavailable EUGENIE, NIZAR N Referring Unavailable EUGENIE, NIZAR N Attending Unavailable OMIDRAN, YASSER Primary Care Unavailable PHYSICIAN, NOT RECORDED Primary Care Physician U navailable ISIDRO UPTON MD Attending Unavailable ISIDRO UPTON MD Primary Care Unavailable ISIDRO UPTON MD Admitting Unavailable KATIA LAN MD Admitting Unavailable KATIA LAN MD Attending Unavailable KATIA LAN MD Primary Care Unavailable KATIA LAN MD Attending Unavailable KATIA LAN MD Primary Care Unavailable KATIA LAN MD Admitting Unavailable Omran, Yasser Primary Care Unavailable Omidran, Yasser Referring Unavailable Hernesto, Dewayne Attending Unavailable Jami Gabriel Attending Unavailable Morehart, Lidia Jennifer Primary Care Unavailabl e Hernesto, Dewayne Attending Unavailable Hernesto, Dewayne Referring Unavailable Morehart, Lidia Jennifer Primary Care Unavailabl e Omran, Yasser Primary Care Unavailable Hernesto, Dewayne Attending Unavailable Hernesto, Dewayne Referring Unavailable Min Butt Attending Unavailable Morehart, Lidia Jennifer Primary Care Unavailabl e PHYSICIAN, NOT RECORDED Primary Care Unavaila FREDERICK Kaminski MD Attending Unavail able WAQAS HOLGUIN MD Attending Unavailable PHYSICIAN, NOT RECORDED Primary Care Unavaila sabrina GARSIA MD, DR ALAN Attending Unavailab le PHYSICIAN, NOT RECORDED Primary Care Unavaila sabrina PHYSICIAN, NOT RECORDED Primary Care Unavaila sabrina UPTON MD, DR ISIDRO Arce Attending Unavailabl e Allergies Allergy Classification Reported Allergen(s) Allergy Type Date of Onset Reaction(s) Facility (20 sources) pioglitazone; Translations: [PIOGLITAZONE] Drug Allergy 10-14-2021 Unknown [facility] [place] (1 source) pioglitazone Drug Allergy [facility] Rep[facility] (1 source) pioglitazone Drug Allergy 11-02-2024 [facility] Repository Medications Current Medications Medication Drug Class(es) Dates Sig (Normalized) Sig (Original) acetaminophen 325 mg oral tablet (1 source) Start: 07-29-2023 acetaminophen (TYLENOL) tablet 650 mg ARIPiprazole 15 mg oral tablet (10 sources) Atypical Antipsychotic Start: 11-27-2024 ARIPiprazole 15 mg oral tablet Dose : 7.5 mg = 0.5 tab(s), Oral, qDay, # 30 tab(s), 0 Refill(s) Start Date: 11/27/24 Status: Ordered Quantity: 30.0 Unit: tab(s) Repeat number: 1 Start: 07-31-2023 take 5 mg by mouth once daily 5 mg, Oral, DAILY, First dose on Mon07/31/23 at 1200, Until Discontinued Start: 07-16-2023 take 5 mg by mouth once daily ARIPiprazole (ABILIFY) 2 mg tablet Take 5 mg by mouth once daily. 5 mg 07/16/2023 Active Start: 07-16-2023 ARIPiprazole ( ABILIFY) 2 mg tablet ascorbic acid 500 mg oral tablet (2 sources) Vitamin C Start: 11-30-2021 take 1 tablet by mouth twice daily Ascorbic Acid (Vitamin C) (Vitamin C) 500 mg Tablet Active 500 MG PO TWICE A DAY November 30, 2021 11:49am Cbd Gummies (15 sources) Start: 11-30-2021 Cbd Gummies Ac tive 1 gummy SL/PO DAILY November 30, 2021 12:16pm Start: 11-30-2021 End: 06-21-2022 Cbd Gummies Discontinued 1 g ummy SL/PO DAILY November 29, 2021 11:00pm June 21, 2022 6:06pm Start: 11-30-2021 Cbd Gummies Ac tive 1 gummy SL/PO DAILY November 29, 2021 11:00pm Start: 11-30-2021 Cbd Gummies Ac tive 1 gummy SL/PO DAILY November 30, 2021 12:00am cholecalciferol 0.025 mg oral capsule (19 sources) Vitamin D Start: 10-14-2021 take 25 ug by mouth once daily Cholecalciferol (Vitamin D3) Active 25 MCG PO DAILY October 13, 2021 11:00pm docusate sodium 50 mg / sennosides, care home 8.6 mg oral tablet (3 sources) Start: 11-27-2024 take 1 tablet by mouth once daily Senexon-S 50 mg-8.6 mg oral tablet Dose = 1 tab(s), Oral, qDay, 0 Refill(s) Start Date: 11/27/24 Status: Ordered Repeat number: 1 Start: 08-08-2023 End: 09-07-2023 take 1 tablet by mouth once daily sennosides-docusate sodium (SENOKOT-S) 8.6-50 MG tablet Take 1 tablet by mouth daily 30 tablet 0 08/08/2023 09/07/2023 Active Start: 07-27-2023 take 1 tablet by radhames th twice daily 1 tablet, Oral, 2 TIMES DAILY, First dose on Mon07/27/23 at 2230, Until Discontinued doxepin hydrochloride 10 mg oral capsule (8 sources) Tricyclic Antidepressant take 1 capsule by mouth once daily at bedtime doxepin capsule 10 mg Take 10 mg by mouth daily at bedtime. Active Comment on above: Take 10 mg by mouth daily at bedtime. folic acid 1 mg oral tablet (20 sources) Start: folic acid 1 mg oral tablet Dose : 1 mg = 1 tab(s), Oral, qDay, # 30 tab(s), 0 Refill(s) Start Date: 11/27/24 Status: Ordered Quantity: 30.0 Unit: tab(s) Repeat number: 1 Start: 07-28-2023 take 1 mg by mouth once daily 1 mg, Oral, DAILY, First dose on Mon07/28/23 at 1200, Until Discontinued Start: 09-13-2021 End: 05-02-2022 take 1 mg by mouth once daily Folic Acid Discontinued 1 MG PO DAILY 90 Cathy 6th, 2022 3:54pm May 02, 2022 2:14pm Comment on above: Take 1 mg by mouth o nce daily. furosemide 40 mg oral tablet (20 sources) Loop Diuretic Start: 11-27-2024 furosemide 40 mg oral tablet Dose : 40 mg = 1 tab(s), Oral, qDay, # 30 tab(s), 0 Refill(s) Start Date: 11/27/24 Status: Ordered Quantity: 30.0 Unit: tab(s) Repeat number: 1 Start: 07-28-2023 take 40 mg by mouth once daily 40 mg, Oral, DAILY, First dose on Mon07/28/23 at 1200, Until Discontinued Start: 10-14-2021 End: 05-27-2022 take 1 tablet by mouth once daily Furosemide Active 0 .ROUTE .COMPLEX May 27, 2022 7:09am take 1 tablet by mouth once daily Start: 09-13-2021 End: 09-24-2021 take 40 mg by mouth once daily Furosemide Discontinued 40 MG PO DAILY September 13, 2021 12:00am September 24, 2021 1:44pm Comment on above: Take 40 mg by mouth once daily. Ashley-Tussin DM 20 mg-200 mg/10 mL oral liquid (1 source) Start: take 1 dose by mouth every eight hours as needed for cough and congestion Ashley-Tussin DM 20 mg-200 mg/10 mL oral liquid Dose = 10 mL, Oral, q8h, PRN Cough and congestion, 0 Refill(s) Start Date: 11/27/24 Status: Ordered Repeat number: 1 1 ml heparin sodium, porcine 01698 unt/ml injection (1 source) Unfractionated Heparin, Anti-coagulant Start: heparin (porcine) injection 5,000 Units hydrOXYzine pamoate 50 mg oral capsule (7 sources) Antihistamine Start: hydrOXYzine pamoate (VISTARIL) 50 mg capsule Ones a day 06/24/2022 Active Comment on above: Ones a day iv contrast (will be provided with radiology test) (1 source) Start: End: iv contrast (will be provided with radiology test) CT LIVER W IVCON Inject, intravenously, once for 1 dose. No IV access, insert saline lock prior to the beginning of sedation, infusion, injection of imaging exam. Discontinue saline lock post exam. If Pt. has a central line or IVAD, may access for administration according to line specific nursing protocol. Once exam is complete flush line and de-access according to line specific nursing protocol in the CT contrast administration guidelines link. 1 Each 0 08/29/2023 08/30/2023 Active Comment on above: CT LIVER W IVCON Inj ect, intravenously, once for 1 dose. No IV access, insert saline lock prior to the beginning of sedation, infusion, injection of imaging exam. Discontinue saline lock post exam. If Pt. has a central line or IVAD, may access for administration according to line specific nursing protocol. Once exam is complete flush line and de-access according to line specific nursing protocol in the CT contrast administration guidelines link. Lactobacillus Combo No.6 (Probiotic Complex) 4 billion cell Tablet (6 sources) Start: take 4 tablets by mouth once daily Lactobacillus Combo No.6 (Probiotic Complex) 4 billion cell Tablet Active 60 CELL PO DAILY February 27, 2022 11:00pm Start: 02-28-2022 take 4 tablets by mo ut once daily Lactobacillus Combo No.6 (Probiotic Complex) 4 billion cell Tablet Active 60 CELL PO DAILY February 28, 2022 12:00am lactulose 667 mg/ml oral solution (20 sources) Osmotic Laxative Start: 11-27-2024 End: 12-07-2024 take 1 dose by mouth three times daily lactulose 10 g/15 mL oral syrup Dose : 20 gram(s) = 30 mL, Oral, TID, # 600 mL, 0 Refill(s) Start Date: 11/27/24 Stop Date: 12/07/24 Status: Ordered Quantity: 600.0 Unit: mL Repeat number: 1 Start: 11-03-2021 End: 09-07-2023 take 60 mL by mouth four times daily lactulose (CHRONULAC) 10 GM/15ML solution Take 60 mLs by mouth 4 times daily 7200 mL 0 08/08/2023 09/07/2023 Active Start: 09-26-2021 End: 09-30-2021 take 30 g by mouth every hour Lactulose Discontinued 3 0 GM PO Q1H 1080 1 September 26, 2021 12:00am September 30, 2021 7:22am Start: 09-13-2021 End: 11-03-2021 take 20 g by mouth twice daily Lactulose Discontinued 20 GM PO TWICE A DAY 1200 September 24, 2021 1:44pm November 03, 2021 2:38pm Comment on above: Take 20 g by mouth f our times daily. 50 ml magnesium sulfate 40 mg/ml injection (1 source) Start: 2023 take 2000 mg intravenously every hour as needed 2,000 mg, IntraVENous, at 25 mL/hr, Administer over 2 Hours, PRN, Other, Per IV Magnesium Replacement Protocol, Starting on Leatha 07/27/23 at 2210 Mg Lab &nbs p; Replacement Action 1.4-1.6 & nbsp; 2 gram IVPB x 1 doses &n bsp; &nb sp; &nbs p; &nbsp ; & nbsp; (2 gram Total) 1.0-1.3 2 gram IVPB x 2 doses &n bsp; &nb sp; &nbs p; &nbsp ; (4 gram Total) less than 1.0 &nbs p; &nbsp ; CALL PHYSICIAN and & nbsp; &n bsp; &nb sp; &nbs p; 2 gram IVPB x 2 doses (4 gram Total) I nfuse at 1 gram/hr Repeat Mag level next AM Protocol not for use in Patients with CrCl less than 30mL/min melatonin 1 mg oral tablet (3 sources) take 1 tablet by mouth once daily at bedtime melatonin 1 mg chew Take 1 tablet by mouth daily at bedtime. Active methocarbamol 500 mg oral tablet (3 sources) Muscle Relaxant Start: 2023 End: 2023 take 1 tablet by mouth four times daily methocarbamol (ROBAXIN) 500 MG tablet Take 1 tablet by mouth 4 times daily for 10 days 40 tablet 0 08/08/2023 08/08/2023 Discontinued metroNIDAZOLE 500 mg oral tablet (13 sources) Nitroimidazole Antimicrobial Start: 2021 take 500 mg by mouth every eight hours Metronidazole Active 500 MG PO EVERY 8 HOURS June 21, 2022 12:00am Start: 05-17-2022 End: 06-21-2022 take 1 capsule by mouth three times daily Metronidazole (Flagyl) 375 mg capsule Discontinued 375 MG PO THREE TIMES A DAY May 16, 2022 11:00pm June 21, 2022 6:09pm nadolol 20 mg oral tablet (7 sources) beta-Adrenergic Scott Start: 07-16-2023 nadolol (CORGARD) 20 mg tablet 07/16/2023 Active ondansetron (ZOFRAN-ODT) disintegrating tablet 4 mg (1 source) Start: 07-27-2023 ondansetron (ZOFRAN-ODT) disintegrating tablet 4 mg oseltamivir 75 mg oral capsule (4 sources) Neuraminidase Inhibitor Start: 06-21-2022 take 75 mg by mouth twice daily Oseltamivir Active 75 MG PO TWICE A DAY 8 June 21, 2022 12:00am oxyCODONE hydrochloride 5 mg oral tablet (4 sources) Opioid Agonist Start: 08-08-2023 End: 08-15-2023 take 1 tablet by mouth every six hours as needed for pain oxyCODONE (ROXICODONE) 5 MG immediate release tablet Indications: Fall, initial encounter Take 1 tablet by mouth every 6 hours as needed for Pain for up to 7 days. Max Daily Amount: 20 mg 28 tablet 0 08/08/2023 08/08/2023 Discontinued Start: 07-27-2023 oxyCODONE (EFRAIN ICODONE) immediate release tablet 5 mg Start: 07-27-2023 End: 07-27-2023 oxyCODONE (ROXICODONE) immed iate release tablet 5 mg promethazine hydrochloride 25 mg oral tablet (7 sources) Phenothiazine Start: 06-24-2023 promethazine (PHENERGAN) 25 mg tablet 06/24/2023 Active QUEtiapine 50 mg oral tablet (4 sources) Atypical Antipsychotic Start: 11-27-2024 QUEtiap ine 50 mg oral tablet Dose : 50 mg = 1 tab(s), Oral, qHS, 0 Refill(s) Start Date: 11/27/24 Status: Ordered Repeat number: 1 Start: 12-11-2023 take 2 tablets by mo uth once daily at bedtime QUEtiapine (SEROQUEL) 50 mg tablet Take 100 mg by mouth daily at bedtime. 12/11/2023 Active Start: 12-11-2023 QUEtiapine (SE ROQUEL) 50 mg tablet rifAXIMin 550 mg oral tablet (20 sources) Rifamycin Antibacterial Start: 11-27-2024 Xifaxa n 550 mg oral tablet Dose : 550 mg = 1 tab(s), Oral, BID, # 60 tab(s), 0 Refill(s) Start Date: 11/27/24 Status: Ordered Quantity: 60.0 Unit: tab(s) Repeat number: 1 Start: 07-28-2023 take 400 mg by mouth twice daily 400 mg, Oral, 2 TIMES DAILY, First dose on Mon07/28/23 at 1300, Until Discontinued Start: 12-06-2021 End: 05-30-2022 take 1 tablet by mouth twice daily Rifaximin (Xifaxan) 550 mg tablet Active 0 .ROUTE .COMPLEX May 30, 2022 8:18am take 1 tablet by mouth twice a day take 2 tablets by mo uth twice daily rifAXIMin (XIFAXAN) 200 MG tablet Take 2 tablets by mouth 2 times daily 0 Suspended Comment on above: Take 550 mg by mouth twice daily. sertraline 100 mg oral tablet (19 sources) Serotonin Reuptake Inhibitor Start: 11-27-2024 sertraline 100 mg oral tablet Dose : 100 mg = 1 tab(s), Oral, Daily, 0 Refill(s) Start Date: 11/27/24 Status: Ordered Repeat number: 1 Start: 07-31-2023 take 200 mg by mouth once blanca y 200 mg, Oral, DAILY, First dose on Mon07/31/23 at 1200, Until Discontinued Start: 06-03-2022 End: 06-21-2022 take 50 mg by mouth at bedtime Sertraline Discontinued 50 MG PO BEDTIME June 03, 2022 12:00am June 21, 2022 6:07pm take 4 tablets by mo uth once daily sertraline (ZOLOFT) 50 mg tablet Take 200 mg by mouth once daily. Active take 2 tablets by mo uth once daily sertraline (ZOLOFT) 50 mg tablet Take 100 mg by mouth once daily. 0 Active take 2 tablets by mo uth once daily sertraline (ZOLOFT) 100 MG tablet Take 2 tablets by mouth daily 0 Suspended Comment on above: Take 50 mg by mouth once daily. Take 100 mg by mouth once daily. 1000 ml sodium chloride 9 mg/ml injection (3 sources) Start: 07-27-2023 IntraVENous, at 5-250 mL/hr, PRN, if patient receiving piggyback infusions and maintenance fluids are not ordered OR KVO fluids to protect IV site / prevent frequent line interruptions/ long duration, Starting on Mon07/27/23 at 2210 For piggyback infusion, administer at same rate as piggyback for a total of 25 mL. Enter 25 mL into dose field and piggyback rate into rate field of order. If piggyback is infusing at a rate less than 100 mL/hr, enter 25 mL into dose field and 100 mL/hr into rate field of order. For KVO fluids, enter rate of 20 mL/hr or less into rate field of order. Start: 07-27-2023 take 1 dose intraven ously twice daily 5-40 mL, IntraVENous, EVERY 12 HOURS SCHEDULED (2 times per day), First dose on Mon07/27/23 at 2230, Until Discontinued For Line Patency: Peripheral IV = 5 mL; Midline or Central Line = 10 mL/lumen. If following IV push medication, administer flush at same rate as the IV push. Flush volume is determined by type of infusion therapy being given. For non-viscous solutions use: Peripheral IV = 5 mL Midline or Central Line = 10 mL/lumen For viscous solutions (i.e. blood components, parenteral nutrition, contrast media, or after obtaining blood sample) use: Peripheral IV = 10 mL Midline or Central Line = 20 mL/lumen Start: 07-27-2023 take 5-40 mL intrave nously once as needed 5-40 mL, IntraVENous, PRN, Starting on Leatha 07/27/23 at 2210, Until Discontinued, Line Care, After every IV line use For Line Patency: Peripheral IV = 5 mL; Midline or Central Line = 10 mL/lumen. If following IV push medication, administer flush at same rate as the IV push. Flush volume is determined by type of infusion therapy being given. For non-viscous solutions use: Peripheral IV = 5 mL Midline or Central Line = 10 mL/lumen For viscous solutions (i.e. blood components, parenteral nutrition, contrast media, or after obtaining blood sample) use: Peripheral IV = 10 mL Midline or Central Line = 20 mL/lumen spironolactone 25 mg oral tablet (20 sources) Aldosterone Antagonist Start: 11-27-2024 spironolactone 25 mg oral tablet Dose : 25 mg = 1 tab(s), Oral, qDay, # 30 tab(s), 0 Refill(s) Start Date: 11/27/24 Status: Ordered Quantity: 30.0 Unit: tab(s) Repeat number: 1 Start: 07-28-2023 take 25 mg by mouth once daily 25 mg, Oral, DAILY, First dose on Mon07/28/23 at 1200, Until Discontinued Start: 09-13-2021 End: 07-12-2022 take 50 mg by mouth once daily Spironolactone Active 50 MG PO DAILY July 12, 2022 3:22pm spironolactone ( ALDACTONE) 50 mg tablet Take 25 mg by mouth once daily. Active Comment on above: Take 50 mg by mouth once daily. traZODone hydrochloride 50 mg oral tablet (20 sources) Serotonin Reuptake Inhibitor Start: take 0.5-1 tablets by mouth once daily as needed Trazodone Active 0 PO AT BEDTIME June 27, 2022 12:00am May take 1/2 to 1 tablet nightly as needed Start: 11-22-2021 End: 06-21-2022 take 50 mg by mouth at bedtime Trazodone Discontinued 50 MG PO AT BEDTIME December 15, 2021 11:10am June 21, 2022 6:06pm Comment on above: Take 50 mg by mouth daily at bedtime. May take 1/2 to 1 tablet nightly as needed. Vitamin B1 100 mg oral tablet (1 source) Start: 11-27-2024 End: 12-07-2024 Vitamin B1 100 mg oral tablet Dose : 100 mg = 1 tab(s), Oral, qDay, # 10 tab(s), 0 Refill(s) Start Date: 11/27/24 Stop Date: 12/07/24 Status: Ordered Quantity: 10.0 Unit: tab(s) Repeat number: 1 vitamin b12 1 mg oral capsule (20 sources) Vitamin B12 Start: 09-13-2021 take 1000 ug by mouth once daily Cyanocobalamin (Vitamin B-12) Active 1000 MCG PO DAILY September 13, 2021 12:00am Comment on above: Take 1,000 mcg by [facility] once daily. Completed/Discontinued Medications Medication Drug Class(es) Dates Sig (Normalized) Sig (Original) neomycin sulfate 500 mg oral tablet (20 sources) Aminoglycoside Antibacterial Start: 02-01-2022 End: 02-03-2022 take 500 mg by mouth twice daily Neomycin Discontinued 500 MG PO TWICE A DAY February 01, 2022 12:58pm February 03, 2022 2:11pm Start: 10-14-2021 End: 02-01-2022 take 500 mg by mouth once daily Neomycin Discontinued 500 MG PO DAILY October 13, 2021 11:00pm February 01, 2022 12:58pm ondansetron 4 mg disintegrating oral tablet (20 sources) Serotonin-3 Receptor Antagonist Start: 09-27-2021 End: 06-07-2022 Ondansetron Discontinued 0 .ROUTE .COMPLEX December 09, 2021 6:47am February 28, 2022 8:53am dissolve 1 tablet ON TONGUE every 6 hours if needed for nausea OR vomiting pantoprazole 40 mg delayed release oral tablet (20 sources) Proton Pump Inhibitor Start: 07-28-2023 take 40 mg by mouth once daily 40 mg, Oral, DAILY, First dose on Mon07/28/23 at 1200, Until Discontinued Do not crush or break. Start: 09-13-2021 End: 04-04-2022 take 40 mg by mouth once daily Pantoprazole Discontinu ed 40 MG PO DAILY September 24, 2021 1:42pm April 04, 2022 6:34am Comment on above: Take 40 mg by mouth once daily. pioglitazone 30 mg oral tablet (20 sources) Peroxisome Proliferator Receptor alpha Agonist, Peroxisome Proliferator Receptor gamma Agonist, Thiazolidinedione Start: 2021 End: 2021 take 30 mg by mouth once daily Pioglitazone Discontinued 30 MG PO DAILY September 23, 2021 12:00am September 27, 2021 1:04pm polyethylene glycol 3350 [id number] mg powder for oral solution (1 source) Osmotic Laxative Start: 2023 17 g, Oral, DAILY PRN, Starting on Mon07/27/23 at 2210, Until Discontinued, Constipation First line therapy for constipation potassium bicarbonate 20 meq effervescent oral tablet (2 sources) Start: 2023 End: 2023 potassium bicarb-citric acid (EFFER-K) effervescent tablet 40 mEq prochlorperazine 25 mg rectal suppository (8 sources) Phenothiazine Start: 2021 End: 2021 Prochlorperazine (Compazine) 25 mg suppository Discontinued 25 MG RC TWICE A DAY June 13, 2022 12:00am June 21, 2022 6:09pm propranolol hydrochloride 10 mg oral tablet (2 sources) beta-Adrenergic Scott Start: 2023 End: 2023 take 10 mg by mouth twice daily 10 mg, Oral, 2 TIMES DAILY, First dose on Mon07/28/23 at 1200, Until Discontinued 72 hr scopolamine 0.0139 mg/hr transdermal system (20 sources) Anticholinergic Start: 2021 End: 2021 Scopolamine Base Discontinued 1 PATCH TD Q3D March 14, 2022 6:30am June 21, 2022 6:06pm thiamine 100 mg oral tablet (14 sources) Start: 2023 take 100 mg by mouth once daily 100 mg, Oral, DAILY, First dose on Mon07/28/23 at 1200, Until Discontinued Start: 06-21-2022 Thiamine Hcl ( Vitamin B1) (Vitamin B-1) 100 mg Tablet Active 200 MG PO TWICE A DAY 60 June 21, 2022 12:00am thiamine (VITAMI N B1) 100 mg tablet Take 200 mg by mouth twice daily. Active Comment on above: Take 200 mg by mouth twice daily. 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-deficit, conduct, and disruptive behavior disorders (4 sources) Conduct disorder, unspecified; Translations: [Unspecified disturbance of conduct] Chronic Chronic kidney disease (7 sources) Chronic kidney disease; Translations: [Chronic kidney disease, unspecified] Chronic Coagulation and hemorrhagic disorders (1 source) Thrombocytopenia, unspecified; Translations: [Thrombocytopenia, unspecified] Onset: 08-21-2023 Chronic Deficiency and other anemia (3 sources) Anemia, unspecified; Translations: [Anemia, unspecified] Onset: 08-21-2023 Episodic Diabetes mellitus without complication (20 sources) Type 2 diabetes mellitus in nonobese; Translations: [Type 2 diabetes mellitus without complications] Onset: 08-21-2023 Chronic E Codes: Fall (5 sources) Unspecified fall, initial encounter; Translations: [Fall] Onset: 02-19-2023 Episodic Epilepsy; convulsions (1 source) Seizure; Translations: [Unspecified convulsions] 01-01-2024 Episodic Essential hypertension (20 sources) Hypertensive disorder; Translations: [Essential (primary) hypertension] Chronic Fever of unknown origin (4 sources) Fever; Translations: [Fever, unspecified] Episodic Immunizations and screening for infectious disease (20 sources) [employer] PR[employer] MACHINIST antibody positive; Translations: [Other specified abnormal immunological findings in serum] Episodic Mood disorders (4 sources) Major depressive disorder, recurrent severe without psychotic features; Translations: [Major depressive disorder, single episode, severe without psychotic features] Onset: 02-07-2023 Chronic Open wounds of extremities (3 sources) Laceration of finger without foreign body; Translations: [Laceration without foreign body of unspecified finger without damage to nail, initial encounter] Onset: 11-27-2024 Episodic Other and unspecified benign neoplasm (12 sources) Hyperplastic polyp of large intestine; Translations: [Polyp of colon] Episodic Other and unspecified benign neoplasm (11 sources) Polyp of colon; Translations: [Benign neoplasm of colon] Episodic Other connective tissue disease (20 sources) H/O: gout; Translations: [Personal history of other diseases of the musculoskeletal system and connective tissue] Episodic Other fractures (3 sources) Closed fracture of second lumbar vertebra; Translations: [Unspecified fracture of second lumbar vertebra, initial encounter for closed fracture] Onset: 07-27-2023 07-27-2023 Episodic Other fractures (3 sources) Closed fracture of lumbar vertebra without mention of spinal cord injury; Translations: [Closed fracture of lumbar vertebra without mention of spinal cord injury] Onset: 07-27-2023 Episodic Other injuries and conditions due to external causes (1 source) Injury of head; Translations: [Unspecified injury of head, initial encounter] Onset: 07-14-2024 Episodic Other injuries and conditions due to external causes (1 source) Encounter for examination and observation following other accident; Translations: [Encounter for examination and observation following other accident] Onset: 11-06-2024 Episodic Other liver diseases (20 sources) Cirrhosis of liver; Translations: [Unspecified cirrhosis of liver] 01-30-2024 Chronic Other liver diseases (20 sources) Liver damage; Translations: [Liver disease, unspecified] Chronic Other liver diseases (20 sources) Unspecified cirrhosis of liver; Translations: [Cirrhosis of liver without mention of alcohol] Chronic Other liver diseases (2 sources) Disease of liver; Translations: [Liver disease, unspecified] Chronic Other liver diseases (4 sources) Liver disease, unspecified; Translations: [Unspecified disorder of liver] Onset: 11-11-2024 Chronic Other liver diseases (1 source) Other cirrhosis of liver; Translations: [Other cirrhosis of liver (HCC)] Onset: 04-09-2024 Chronic Other liver diseases (20 sources) Increased bilirubin level; Translations: [Unspecified jaundice] Episodic Other liver diseases (7 sources) Unspecified jaundice; Translations: [Disorders of bilirubin excretion] Episodic Other liver diseases (20 sources) Hepatic failure, unspecified without coma; Translations: [Hepatic encephalopathy] Episodic Other nervous system disorders (2 sources) Metabolic encephalopathy; Translations: [Metabolic encephalopathy] Chronic Other nervous system disorders (2 sources) Metabolic encephalopathy; Translations: [Metabolic encephalopathy] Chronic Other nutritional; endocrine; and metabolic disorders (1 source) Disorder of urea cycle metabolism, unspecified; Translations: [Disorder of urea cycle metabolism, unspecified] Onset: 11-02-2024 Chronic Residual codes; unclassified (10 sources) Restlessness and agitation; Translations: [Restlessness and agitation] Chronic Residual codes; unclassified (20 sources) Carrier of hemochromatosis HFE gene mutation; Translations: [Genetic carrier of other disease] Episodic Residual codes; unclassified (2 sources) Genetic carrier of other disease; Translations: [Other genetic carrier status] Episodic Residual codes; unclassified (7 sources) Transient altered mental status; Translations: [Disorientation, unspecified] Episodic Residual codes; unclassified (2 sources) Confusional state; Translations: [Disorientation, unspecified] Episodic Residual codes; unclassified (2 sources) Disorientation, unspecified; Translations: [Unspecified psychosis] Episodic Residual codes; unclassified (1 source) Transient alteration of awareness; Translations: [Transient alteration of awareness] Onset: 11-13-2024 Episodic Schizophrenia and other psychotic disorders (2 sources) Psychotic disorder; Translations: [Unspecified psychosis not due to a substance or known physiological condition] Onset: 07-31-2023 07-31-2023 Chronic Spondylosis; intervertebral disc disorders; other back problems (2 sources) Other intervertebral disc degeneration, thoracic region; Translations: [Other intervertebral disc degeneration, thoracic region] Onset: 02-19-2023 Chronic Spondylosis; intervertebral disc disorders; other back problems (2 sources) Cervicalgia; Translations: [Cervicalgia] Onset: 02-19-2023 Episodic Sprains and strains (1 source) Neck sprain; Translations: [Sprain of joints and ligaments of unspecified parts of neck, initial encounter] Onset: 07-14-2024 Episodic Unclassified (3 sources) Unspecified fall; Translations: [Unspecified fall] Onset: 07-27-2023 Unclassified (2 sources) Accidental fall on or from other stairs or steps; Translations: [Accidental fall on or from other stairs or steps] Onset: 07-27-2023 Past or Other Problems Problem Classification Problem Date Documented Da te Episodic/Chronic Fluid and electrolyte disorders (8 sources) Chronic hyponatremia; Translations: [Hypo-osmolality and hyponatremia] Onset: 08-21-2023 Episodic Genitourinary symptoms and ill-defined conditions (17 sources) Increased frequency of urination; Translations: [Frequency of micturition] Onset: 08-21-2023 Episodic Other liver diseases (20 sources) Hepatic encephalopathy; Translations: [Hepatic failure, unspecified without coma] Onset: 08-21-2023 Episodic Other screening for suspected conditions (not mental disorders or infectious disease) (1 source) Encounter for screening for malignant neoplasm of prostate; Translations: [Encounter for screening for malignant neoplasm of prostate] Onset: 08-21-2023 Episodic Skull and face fractures (17 sources) Fracture of mandible, unspecified, initial encounter for open fracture; Translations: [Closed fracture of angle of left mandible] Onset: 09-15-2022 09-15-2022 Episodic Results Test Name Value Interpretation Reference Range Facility Ammoniaon 11-09-2024 Ammonia (P) [Moles/Vol] 136.0 umol/L High 16-60 [facility] Comment on above: Performed By: #### L 503.5510, L500.3400, L100.0100, L500.2500 ####[facility] [address] [place], [address] Basic Metabolic Profile (BMP )on 11-09-2024 BUN/CRE 12.6 RATIO Normal 10-20 [facility] Comment on above: Performed By: #### L 503.5510, L500.3400, L100.0100, L500.2500 ####[facility] [address] [place], [address] Calcium [Mass/Vol] 8.6 mg/dL Normal 7.6-11.0 [facility] Comment on above: Performed By: #### L 503.5510, L500.3400, L100.0100, L500.2500 ####[facility] [address] [place], [address] Chloride [Moles/Vol] 107 mmol/L Normal 98-108 [facility] Comment on above: Performed By: #### L 503.5510, L500.3400, L100.0100, L500.2500 ####[facility] [address] [place], [address] CO2 [Moles/Vol] 23.6 mmol/L Normal 21.0-32.0 [facility] Comment on above: Performed By: #### L 503.5510, L500.3400, L100.0100, L500.2500 ####[facility] [address] [place], [address] Creatinine [Mass/Vol] 0.88 mg/dL Normal 0.70-1.20 [facility] Comment on above: Performed By: #### L 503.5510, L500.3400, L100.0100, L500.2500 ####[facility] [address] [place], [address] ECRCL 110.80 ml/min Normal 50-250 [facility] Comment on above: Performed By: #### L 503.5510, L500.3400, L100.0100, L500.2500 ####[facility] [address] [place], [address] GAP 10 Normal 5-15 [facility] Comment on above: Performed By: #### L 503.5510, L500.3400, L100.0100, L500.2500 ####[facility] [address] [place], [address] GFR/1.73 sq M.predicted among non-blacks MDRD (S/P/Bld) [Vol rate/Area] 105 mL/min/{1.73_m2} Normal >60 [facility] Comment on above: Result Comment: mL/m in/1.73m2 CKD-EPI Creatinine Equation (2020) Performed By: #### L 503.5510, L500.3400, L100.0100, L500.2500 ####[facility] [address] [place], [address] Glucose [Mass/Vol] 108 mg/dL High 70-99 [facility] Comment on above: Performed By: #### L 503.5510, L500.3400, L100.0100, L500.2500 ####[facility] [address] [place], [address] Potassium [Moles/Vol] 3.7 mmol/L Normal 3.3-5.1 [facility] Comment on above: Performed By: #### L 503.5510, L500.3400, L100.0100, L500.2500 ####[facility] [address] [place], [address] Sodium [Moles/Vol] 140 mmol/L Normal 133-145 [facility] Comment on above: Performed By: #### L 503.5510, L500.3400, L100.0100, L500.2500 ####[facility] [address] [place], [address] Urea nitrogen [Mass/Vol] 11 mg/dL Normal 4-19 [facility] Comment on above: Performed By: #### L 503.5510, L500.3400, L100.0100, L500.2500 ####[facility] [address] [place], [address] Brain/Head without Contrasto n 11-09-2024 Brain/Head without Contrast [facility] Imaging Services [address] [place] [address] Brain/Head without Contrast MR#: [id number] Acct: [id number] Name: ALEX ROJO Rep #: [id number] : 1975 M 49 From: Dirk Carmona MD PCP: Lidia Otero MD Status: PRE ER Study: Brain/Head without Contrast Date of Exam: 10/16 01/08 Exam# [id number] Ordering Dr: Jami Gabriel DO EXAM: CT Head Without Intravenous Contrast CLINICAL INDICATION: AMS TECHNIQUE: Axial computed tomography images of the head/brain without intravenous contrast. This CT exam was performed using one or more of the following dose reduction techniques: automated exposure control, adjustment of the mA and/or kV according to patient size, and/or use of iterative reconstruction technique. COMPARISON: No relevant prior studies available. FINDINGS: BRAIN AND EXTRA-AXIAL SPACES: The cerebral and cerebellar sulci are mildly prominent consistent with mild brain atrophy. No acute intracranial hemorrhage, midline shift or mass effect. If symptoms persist, further evaluation with MRI is recommended. Mild areas of decreased attenuation in the deep cerebral white matter are consistent with mild small vessel ischemic/degenerative changes. BONES/JOINTS: Unremarkable. No acute fracture. SOFT TISSUES: Unremarkable. SINUSES: Unremarkable as visualized. No acute sinusitis. MASTOID AIR CELLS: Unremarkable as visualized. No mastoid effusion. CT/Brain/Head without Contrast IMPRESSION: 1. No acute intracranial hemorrhage, midline shift or mass effect. If symptoms persist, further evaluation with MRI is recommended. 2. Mild small vessel ischemic/degenerative changes. Reading Location: [facility] CC: Lidia Otero MD; Dr. Jami Gabriel DO [employer] Instrument Tuner: Signed Normal [facility] CBC W/Diff, Automatedon 10-16 OVALOCYTE 1+ Normal [facility] Comment on above: Performed By: #### L 503.5510, L500.3400, L100.0100, L500.2500 ####[facility] [address] [place], [address] PLT EST MOD DEC Normal ADEQ [facility] Comment on above: Performed By: #### L 503.5510, L500.3400, L100.0100, L500.2500 ####[facility] [address] [place], [address] POLYCHROMASIA 1+ Normal [facility] Comment on above: Performed By: #### L 503.5510, L500.3400, L100.0100, L500.2500 ####[facility] [address] [place], [address] Chest 1 View (Portable)on Chest 1 View (Portable) [facility] Imaging Services [address] [place] [address] Chest 1 View (Portable) MR#: [id number] Acct: [id number] Name: ALEX ROJO Rep #: [id number] : 1975 M 49 From: Dirk Carmona MD PCP: Lidia Otero MD Status: PRE ER Study: Chest 1 View (Portable) Date of Exam: 11/09/24 Exam# [id number] Ordering Dr: Jami Gabriel DO EXAM: XR Chest, 1 View CLINICAL INDICATION: CONFUSION TECHNIQUE: Frontal view of the chest. COMPARISON: No relevant prior studies available. FINDINGS: LUNGS AND PLEURAL SPACES: Unremarkable. No consolidation. No pneumothorax. HEART: Unremarkable. No cardiomegaly. MEDIASTINUM: Unremarkable. Normal mediastinal contour. BONES/JOINTS: Unremarkable. No acute fracture. RAD/Chest 1 View (Portable) IMPRESSION: No acute cardiopulmonary process. Reading Location: [facility] CC: Lidia Otero MD; Dr. Jami Gabriel DO [employer] Instrument Tuner: Signed Normal [facility] Emergency Department Summary on 11-09-2024 Emergency Department Summary [facility] Medical Records Department [address] [place] [address] Emergency Department Summary 11/09/24 MR#: [id number] Acct: [id number] Name: ALEX ROJO Rep #: [id number] : 1975 49 From: Jami Gabriel DO PCP: Lidia Otero MD Status:DEP ER Location: ED HPI History of Present Illness Chief Complaint: Alt LOC Informant: patient and other (Assisted living facility staff) Narrative Narrative: Patient is a 49-year-old male with history of alcoholic cirrhosis and hepatic encephalopathy as well as diabetes and hypertension presenting for concern of altered mental status. Nursing staff states that they took care of him yesterday and he was normal but today he seemed more confused. They state he is normally ANO x 4 but today he was ANO x 2. They were concerned that his lactate was elevated. Patient was seen in the ER for fall 1 week ago (11/02) at that time was found to have an elevated ammonia level. Apparently had not been taking his lactulose scheduled. It was downtrending and patient was discharged back. Patient states that his last bowel movement was yesterday. He was having bowel meant 3 times a day. He states he is only getting his lactulose once a day. He thinks his ammonia is going up. He states he can tell his ammonia is going up when he gets a little itchy. He denies any acute complaints including chest pain, fever, nausea or abdominal pain. Denies any shortness of breath. Denies any black or blood in his stool. No other complaints or concerns at this time. [facility] Medical History Former tobacco use History of alcohol abuse Alcoholic cirrhosis Anxiety and depression Hepatic encephalopathy Suicide attempt Trauma Sleep apnea Gastric reflux Former smoker History of panic attacks Gout Seasonal allergies Cirrhosis Diabetes mellitus type 2 in nonobese HTN (hypertension) Hx of gout Alcoholic hepatitis Carrier of hemochromatosis HFE gene mutation Home Medications ???Medication ???Instructions ???Recorded ???Last Taken ???Type folic acid 1 mg tablet 1 mg PO DAILY #90 tabs 05/02/22 Un known Rx furosemide 40 mg tablet 40 mg PO DAILY WATER PILL 02/07/23 02/06/23 History rifaximin 550 mg tablet (Xifaxan) 550 mg PO BID DEPRESSION 02/07/23 02/06/23 History acetaminophen 325 mg tablet 650 mg PO Q6H PRN 10/24/24 Unknown History aripiprazole 15 mg tablet mg PO 10/24/24 Unknown History melatonin 3 mg tablet 3 mg PO QHS 10/24/24 Unknown Histo ry menthol 4 % topical gel (Biofreeze 1 applic topical TID PRN 5 Unknown History (menthol)) sennosides 8.6 mg-docusate sodium 1 tab PO QDAY 10/24/24 Unknown Hi story 50 mg tablet (Senexon-S) sodium chloride 0.65 % nasal spray 2 spray intranasal Q6H PRN PRN 0 10/24/24 Unknown History aerosol (Deep Sea Nasal) spironolactone 25 mg tablet 37.5 mg (1.5 x 25 mg) PO DAILY 30 10/24/24 Unknown Rx days #45 tabs thiamine HCl (vitamin B1) 100 mg 100 mg PO QDAY VITAMIN 10/24/24 Un known History tablet (Vitamin B-1) carvedilol 6.25 mg tablet 6.25 mg PO BID 1 month #60 tabs Unknown Rx quetiapine 50 mg tablet 25 mg PO QHS 10/28/24 Unknown Hist ory sertraline 100 mg tablet 50 mg PO QHS DEPRES 10/28/24 Unkno wn History lactulose 20 gram/30 mL oral 20 g (30 mL) PO TID #0 mL 11/09/24 Unknown Rx solution Allergy/AdvReac Type Severity Reaction Status Date / Time pioglitazone Allergy Mild liver Verified 11/02/24 03:58 damange Family History Other CVA (cerebral vascular accident) Cancer Cirrhosis Heart disease Hypertension Thyroid disorder Surgical History History of esophagogastroduodenosco py (EGD) History of surgery Social History housing: homeless 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 Smoking Status: Current every day smoker tobacco type: cigarettes and pipe alcohol intake: former substance use type: does not use what type of physical activity do you participate in: other frequency: 1-2 times per week ROS ROS ED Constitutional Constitutional ED: Denies chills or fever(s) Cardiovascular Cardiovascular: Denies chest pain Respiratory/Chest Respiratory/Chest: Denies cough or dyspnea Gastrointestinal Gastrointestinal: Denies abdominal pain, melena or nausea Musculoskeletal Musculoskeletal: Denies arthralgias or myalgias Integumentary Denies rash Neurologic Neurologic: Denies headache(s) or weakness Psychiatric Psychiatric: Denies anxiety or depression Hematologic/Lymphatic Hematologic/Lymphatic: Reports easy bruising EXAM Physical Exam Const Vital Signs: (more content not included)... Normal [facility] Liver Profileon 11-09-2024 Albumin [Mass/Vol] 3.4 g/dL Low 3.5-5.0 [facility] Comment on above: Performed By: #### L 503.5510, L500.3400, L100.0100, L500.2500 ####[facility] [address] [place], [address] ALK PHOS 212 U/L High 40-129 [facility] Comment on above: Performed By: #### L 503.5510, L500.3400, L100.0100, L500.2500 ####[facility] [address] [place], [address] ALT [Catalytic activity/Vol] 31 U/L Normal <=46 [facility] Comment on above: Performed By: #### L 503.5510, L500.3400, L100.0100, L500.2500 ####[facility] [address] [place], [address] AST [Catalytic activity/Vol] 60 U/L High <=37 [facility] Comment on above: Performed By: #### L 503.5510, L500.3400, L100.0100, L500.2500 ####[facility] [address] [place], [address] Bilirubin [Mass/Vol] 2.19 mg/dL High 0.00-1.30 [facility] Comment on above: Performed By: #### L 503.5510, L500.3400, L100.0100, L500.2500 ####[facility] [address] [place], [address] Bilirubin.direct [Mass/Vol] 1.11 mg/dL High 0.00-0.30 [facility] Comment on above: Performed By: #### L 503.5510, L500.3400, L100.0100, L500.2500 ####[facility] [address] [place], [address] Globulin (S) [Mass/Vol] 3.3 g/dL Normal 2.2-4.2 [facility] Comment on above: Performed By: #### L 503.5510, L500.3400, L100.0100, L500.2500 ####[facility] [address] [place], [address] T PROT 6.7 g/dL Normal 5.9-8.4 [facility] Comment on above: Performed By: #### L 503.5510, L500.3400, L100.0100, L500.2500 ####[facility] [address] [place], [address] Urinalysis, Completeon 11-09 WBC 0-5 SEEN Normal 0-5 [facility] Comment on above: Order Comment: CLEAN CATCH Performed By: #### L 400.0001 ####[facility] [address] [place], [address] BACTERIA 0 SEEN Normal None Seen [facility] Comment on above: Order Comment: CLEAN CATCH Performed By: #### L 400.0001 ####[facility] [address] [place], [address] EPI,SQUAMOUS 0 SEEN Normal 0-5 [facility] Comment on above: Order Comment: CLEAN CATCH Performed By: #### L 400.0001 ####[facility] [address] [place], [address] Mucus Ql (Urine sed) 0 SEEN Normal [facility] Comment on above: Order Comment: CLEAN CATCH Performed By: #### L 400.0001 ####[facility] [address] [place], [address] RBC 0 SEEN Normal 0-5 [facility] Comment on above: Order Comment: CLEAN CATCH Performed By: #### L 400.0001 ####[facility] [address] [place], [address] .Urinalysis Microscopic (AO) on 11-03-2024 UA Hyal Cast 0-5 Abnormal [facility] Comment on above: Performed By: #### U A, UAMICAO ####[address] [place], [place] [address] UA Mucous 1+ /hpf Normal [facility] Comment on above: Performed By: #### U A, UAMICAO ####[address]rea [address] [address] UA RBC 0-5 Abnormal None Seen [facility] Comment on above: Performed By: #### U A, UAMICAO ####[address]rea [address] [place], [place] [address] UA Squam Epithelial 0-5 Abnormal None Seen [facility] Comment on above: Performed By: #### U A, UAMICAO ####[address] [place], [place] [address] UA WBC None Seen Normal None Seen [facility] Comment on above: Performed By: #### U A, UAMICAO ####[address] [place], [place] [address] UAon 11-03-2024 Color (U) [place] Abnormal [facility] Comment on above: Performed By: #### U A, UAM[place]O ####[address] [place], [place] [address] Glucose (U) [Mass/Vol] Negative Normal Negative [facility] Comment on above: Performed By: #### U A, UAMICAO ####[address] [place] [address] Ketones Ql (U) Negative Normal Negative [facility] Comment on above: Performed By: #### U A, UAM[place]O ####[address] [place] [address] UA Appear Clear Normal Clear [facility] Comment on above: Performed By: #### U A, U[place]O ####[address] [place] [address] UA Bili Small Abnormal Negative [facility] Comment on above: Performed By: #### U A, U[place]O ####[address] [place] [address] UA Blood Negative Normal Negative [facility] Comment on above: Performed By: #### U A, UAM[place]O ####Andrea [address] [place] [address] UA Leuk Est Negative Normal Negative [facility] Comment on above: Performed By: #### U A, UAMICAO ####[address] [place] [address] UA Nitrite Negative Normal Negative [facility] Comment on above: Performed By: #### U A, UAMICAO ####[address] [place] [address] UA pH 6.5 Normal 5.0 - 8.0 [facility] Comment on above: Performed By: #### U A, UAMICAO ####[address] [place] [address] UA Protein Trace Normal Negative [facility] Comment on above: Performed By: #### U A, UAMICAO ####[address] [place] [address] UA Spec Grav 1.015 Normal 1.015-1.025 [facility] Comment on above: Performed By: #### U A, UAMICAO ####[address] [place] [address] UA Specimen Type Clean Catch Normal [facility] Comment on above: Performed By: #### U German UAMICAO ####[facility] [place], [place] [address] UA Urobilinogen 4.0 E.U./dL Abnormal 0.2-1.0 [facility] Comment on above: Performed By: #### U German UAMICAO ####[facility] [place], [place] [address] XR CHEST 2 VIEWSon XR CHEST 2 VIEWS ORIGINAL EXAMINATION: TWO XRAY VIEWS OF THE CHEST 11/02/2024 11:47 pm COMPARISON: None. HISTORY: ORDERING SYSTEM PROVIDED HISTORY: Reason for Exam: Pt sent from [facility] d/t multiple falls today. Pt states he becomes dizzy and his legs give out causing him to fall. Pt denies any injury. Abdominal pain FINDINGS: The lungs are without acute focal process. There is no effusion or pneumothorax. The cardiomediastinal silhouette is without acute process. The osseous structures are without acute process. IMPRESSION: No acute process. Interpreted by: Hector Blanca Preliminary Report By: Hector Blanca Electronically signed By Hector Blanca Dictated Date: 11/03/2024 12:03:05 AM Prelim Date: 11/03/2024 12:03:38 AM Sign Date: 11/03/2024 12:03:38 AM Ordering Provider: FREDERICK MANUEL Normal [facility] .Auto Diffon 11-02-2024 Basophil, Absolute 0.0 10 3/mcL Normal 0.0-0.3 [facility] Comment on above: Performed By: #### C DUARTE MCCALLUM, MACK, W, ANEU, AMM, GFR #### [facility] [address] [place], [place] [address] Basophils/100 WBC (Bld) 0.7 % Normal 0.0-2.5 [facility] Comment on above: Performed By: #### C XENA, DUARTE, MACK, W, ANEU, AMM, GFR #### [facility] [address] [place], [place] [address] Eosinophil, Absolute 0.2 10 3/mcL Normal 0.0-0.[address] [facility] Comment on above: Performed By: #### C BC, ADIFF, CMP, MDW, ANEU, AMM, GFR #### [address] [address] Eosinophils/100 WBC (Bld) 3.6 % Normal 0.0-6.0 [facility] Comment on above: Performed By: #### C BC, ADIFF, CMP, MDW, ANEU, AMM, GFR #### [address] [address] Lymphocyte, Absolute 1.5 10 3/mcL Normal 0.9-4.[address] [facility] Comment on above: Performed By: #### C BC, ADIFF, CMP, MDW, ANEU, AMM, GFR #### [address] [address] Lymphocytes/100 WBC (Bld) 30.2 % Normal 20.0-40.0 [facility] Comment on above: Performed By: #### C BC, ADIFF, CMP, MDW, ANEU, AMM, GFR #### [address] [address] Monocyte, Absolute 0.5 10 3/mcL Normal 0.1-1.4 [facility] Comment on above: Performed By: #### C BC, ADIFF, CMP, MDW, ANEU, AMM, GFR #### [address] [address] Monocytes/100 WBC (Bld) 9.2 % Normal 2.0-13.0 [facility] Comment on above: Performed By: #### C BC, ADIFF, CMP, MDW, ANEU, AMM, GFR #### [address] [address] Neutrophils/100 WBC (Bld) 56.3 % Normal 50.0-75.0 [facility] Comment on above: Performed By: #### C BC, ADIFF, CMP, MDW, ANEU, AMM, GFR #### [address] [address] .GFRon 11-02-2024 Estimated Glomerular Filtration Rate 86 ml/min/1.73sqm Normal [facility] Comment on above: Result Comment: Stages of Chronic Kidney Disease (CKD) Stage Description eGFR(ml/min/1.73 sq.m.) CKD 1 Normal kidney function or >=90 normal kindney function with possible kidney damage (ex. Proteinuria) CKD 2 Kidney damage with mild loss 60-89 of kidney function CKD 3a Mild to moderate loss of kidney 45-59 function CKD 3b Moderate to severe loss of 30-44 of kindey function CKD 4 Severe loss of kidney function 15-29 CKD 5 Kidney failure <15 Note: (go live 2024) the eGFR calculation was updated to the 2020 CKD-EPI creatinine equation without a race factor to calculate the eGFR results. Performed By: #### C BC, DUARTE, CMP, MDW, ANEU, AMM, GFR #### [place] [address] .MDWon 11-02-2024 Monocyte Distribution Width 19.59 Normal 0.00-20.00 [facility] Comment on above: Result Comment: For ED adult patients suspected of sepsis, MDW<=20.0 does not rule out sepsis or risk of sepsis Performed By: #### C XENA, DUARTE, CMP, MDW, ANEU, AMM, GFR #### [address] [address] .NEUABSon 11-02-2024 Neutrophil, Absolute 2.8 10 3/mcL Normal 2.3-8.[address] [facility] Comment on above: Performed By: #### C BC, DUARTE, CMP, MDW, ANEU, AMM, GFR #### [place] [id number] [place], [place] [address] Onel 11-02-2024 Ammonia (P) [Moles/Vol] 114 umol/L High 11-32 [facility] Comment on above: Performed By: #### C BC, ADEV, CMP, MDW, ANEU, AMM, GFR #### [place] [address] Ammoniaon 11-02-2024 Ammonia (P) [Moles/Vol] 138.0 umol/L High 16-60 [facility] Comment on above: Performed By: #### L 503.5510, L500.2500, L500.3400 ####[facility] [address] [place], [address] Basic Metabolic Profile (BMP )on 11-02-2024 BUN/CRE 12.9 RATIO Normal 10-20 [facility] Comment on above: Performed By: #### L 503.5510, L500.2500, L500.3400 ####[facility] [address] [place], [address] Calcium [Mass/Vol] 8.6 mg/dL Normal 7.6-11.0 [facility] Comment on above: Performed By: #### L 503.5510, L500.2500, L500.3400 ####[facility] [address] [place], [address] Chloride [Moles/Vol] 105 mmol/L Normal 98-108 [facility] Comment on above: Performed By: #### L 503.5510, L500.2500, L500.3400 ####[facility] [address] [place], [address] CO2 [Moles/Vol] 21.3 mmol/L Normal 21.0-32.0 [facility] Comment on above: Performed By: #### L 503.5510, L500.2500, L500.3400 ####[facility] [address] [place], [address] Creatinine [Mass/Vol] 0.91 mg/dL Normal 0.70-1.20 [facility] Comment on above: Performed By: #### L 503.5510, L500.2500, L500.3400 ####[facility] [address] [place], [address] ECRCL 108.93 ml/min Normal 50-250 [facility] Comment on above: Performed By: #### L 503.5510, L500.2500, L500.3400 ####[facility] [address] [place], [address] GAP 11 Normal 5-15 [facility] Comment on above: Performed By: #### L 503.5510, L500.2500, L500.3400 ####[facility] [address] [place], [address] GFR/1.73 sq M.predicted among non-blacks MDRD (S/P/Bld) [Vol rate/Area] 102 mL/min/{1.73_m2} Normal >60 [facility] Comment on above: Result Comment: mL/m in/1.73m2 CKD-EPI Creatinine Equation (2020) Performed By: #### L 503.5510, L500.2500, L500.3400 ####[facility] [address] [place], [address] Glucose [Mass/Vol] 92 mg/dL Normal 70-99 [facility] Comment on above: Performed By: #### L 503.5510, L500.2500, L500.3400 ####[facility] [address] [place], [address] Potassium [Moles/Vol] 3.8 mmol/L Normal 3.3-5.1 [facility] Comment on above: Result Comment: Hemo lysis present, Results??could be affected. ?? Performed By: #### L 503.5510, L500.2500, L500.3400 ####[facility] [address] [place], [address] Sodium [Moles/Vol] 137 mmol/L Normal 133-145 [facility] Comment on above: Performed By: #### L 503.5510, L500.2500, L500.3400 ####[facility] [address] [place], [address] Urea nitrogen [Mass/Vol] 12 mg/dL Normal 4-19 [facility] Comment on above: Performed By: #### L 503.5510, L500.2500, L500.3400 ####[facility] [address] [place], [address] CBCon 11-02-2024 Erythrocyte distribution width (RBC) [Ratio] 14.7 % Normal 11.5-15.5 [facility] Comment on above: Performed By: #### C XENA, DUARTE, MACK, W, ANEU, AMM, GFR #### [address] [address] Hematocrit (Bld) [Volume fraction] 36.2 % Low 40.0-52.0 [facility] Comment on above: Performed By: #### C BC, DUARTE, MACK, W, ANEU, AMM, GFR #### [address] [address] Hgb 13.0 G/dL Normal 13.0-17.5 [facility] Comment on above: Performed By: #### C BC, DUARTE, MACK, MDW, ANEU, AMM, GFR #### [address] [address] MCH (RBC) [Entitic mass] 38.1 pg High 27.0-33.0 [facility] Comment on above: Performed By: #### C BC, DUARTE, MACK, MDW, ANEU, AMM, GFR #### [address] [address] MCHC 36.0 G/dL Normal 32.0-36.0 [facility] Comment on above: Performed By: #### C BC, DUARTE, MACK, MDW, ANEU, AMM, GFR #### [address] [address] MCV (RBC) [Entitic vol] 105.7 fL High 81.0-100.0 [facility] Comment on above: Performed By: #### C BC, ADIFF, CMP, MDW, ANEU, AMM, GFR #### [address] [address] Platelet 91 10 3/mcL Low 150-450 [facility] Comment on above: Performed By: #### C BC, ADIFF, CMP, MDW, ANEU, AMM, GFR #### [address] [address] Platelet mean volume (Bld) [Entitic vol] 7.4 fL Normal 6.4-10.5 [facility] Comment on above: Performed By: #### C BC, ADIFF, CMP, MDW, ANEU, AMM, GFR #### [address] [address] RBC 3.43 10 6/mcL Low 4.50-6.00 [facility] Comment on above: Performed By: #### C BC, ADIFF, CMP, MDW, ANEU, AMM, GFR #### [address] [address] WBC 5.0 10 3/mcL Normal 4.5-10.8 [facility] Comment on above: Performed By: #### C BC, ADIFF, CMP, MDW, ANEU, AMM, GFR #### [address] [address] CBC W/Diff, Automatedon 10-15 Platelets (Bld) [#/Vol] 89 10*3/uL Low 150-450 [facility] Comment on above: Performed By: #### L 100.0100 #### [facility] [address] [facility] [place], [place], [id number] CMPon 11-02-2024 Albumin Level 2.9 G/dL Low 3.5-5.0 [facility] Comment on above: Performed By: #### C BC, ADIFF, CMP, MDW, ANEU, AMM, GFR #### [address] [address] Albumin/Globulin [Mass ratio] 0.8 {ratio} Low 1.1-2.5 [facility] Comment on above: Performed By: #### C XENA, DUARTE, MACK, MAGY, ANEU, AMM, GFR #### [place] [address] [place], [place] [address] ALP [Catalytic activity/Vol] 177 U/L High 40-135 [facility] Comment on above: Performed By: #### C XENA, DUARTE, MACK, MAGY, ANEU, AMM, GFR #### [address] [address] ALT [Catalytic activity/Vol] 52 U/L Normal 16-63 [facility] Comment on above: Performed By: #### C XEAN, DUARTE, MACK, MAGY, ANEU, AMM, GFR #### [address] [address] AST [Catalytic activity/Vol] 75 U/L High 10-40 [facility] Comment on above: Performed By: #### C DUARTE MCCALLUM, MACK, MAGY, ANEU, AMM, GFR #### [address] [address] Bili Total 2.8 mg/dL High 0.2-1.0 [facility] Comment on above: Result Comment: Use of this assay is not recommended for patients undergoing treatment with eltrombopag due to the potential for falsely elevated results. Performed By: #### C XENA, DUARTE, MACK, MAGY, ANEU, AMM, GFR #### [address] [address] BUN/Creatinine Ratio 14 ratio Normal 7-27 [facility] Comment on above: Performed By: #### C XENA, DUARTE, MACK, MAGY, ANEU, AMM, GFR #### [address] [address] Calcium [Mass/Vol] 8.3 mg/dL Low 8.4-10.2 [facility] Comment on above: Performed By: #### C BC, ADIFF, CMP, MDW, ANEU, AMM, GFR #### [address] [address] Chloride [Moles/Vol] 107 mmol/L Normal 98-107 [facility] Comment on above: Performed By: #### C BC, ADIFF, CMP, MDW, ANEU, AMM, GFR #### [address] [address] CO2 [Moles/Vol] 29 mmol/L Normal 22-29 [facility] Comment on above: Performed By: #### C BC, ADIFF, CMP, MDW, ANEU, AMM, GFR #### [address] [address] Creatinine [Mass/Vol] 1.05 mg/dL Normal 0.70-1.30 [facility] Comment on above: Result Comment: Test ing performed on Siemens Dimension EXL analyzer using a modified kinetic Nathan technique. Performed By: #### C BC, ADEV, MACK, MDW, ANEU, AMM, GFR #### [address] [address] Electrolyte Balance 4.0 mEq/L Normal 4.0-15.0 [facility] Comment on above: Performed By: #### C BC, ADEV, MACK, MDW, ANEU, AMM, GFR #### [address] [address] Globulin 3.8 G/dL Normal 1.5-3.8 [facility] Comment on above: Performed By: #### C BC, ADIFF, CMP, MDW, ANEU, AMM, GFR #### [address] [address] Glucose [Mass/Vol] 126 mg/dL High 70-105 [facility] Comment on above: Performed By: #### C BC, ADIFF, CMP, MDW, ANEU, AMM, GFR #### [address] [address] Potassium [Moles/Vol] 3.4 mmol/L Low 3.5-5.1 [facility] Comment on above: Performed By: #### C BC, DUARTE, MACK, MAGY, ANEU, AMM, GFR #### [address] [address] Sodium [Moles/Vol] 140 mmol/L Normal 136-145 [facility] Comment on above: Performed By: #### C XENA, DUARTE, MACK, MAGY, ANEU, AMM, GFR #### [address] [address] Total Protein 6.7 G/dL Normal 6.4-8.2 [facility] Comment on above: Performed By: #### C XENA, DUARTE, MACK, MAGY, ANEU, AMM, GFR #### [address] [address] Urea nitrogen [Mass/Vol] 15 mg/dL Normal 7-18 [facility] Comment on above: Performed By: #### C XENA, DUARTE, MACK, MAGY, ANEU, AMM, GFR #### [address] [address] Emergency Department Summary on 11-02-2024 Emergency Department Summary [facility] Medical Records Department [address] [place] [id number] Emergency Department Summary 11/02/24 MR#: [id number] Acct: [id number] Name: ALEX ROJO Rep #: [id number] : 1975 49 From: Min Butt DO PCP: Lidia Otero MD Status:REG ER Location: ED HPI History of Present Illness Chief Complaint: Fall Informant: patient and EMS Narrative Narrative: Patient is a 49-year-old male with past medical history of alcoholic hepatitis as well as cirrhosis and hypertension. He states that he was seen and secondary to a fall. He reports that he was standing at the nurses station at the [facility] care facility where he stays. He states he lost his balance and fell directly onto his buttocks from a standing position. He denies striking his head or any loss of consciousness. He states there is no palpitations or abnormal cardiac sensation prior to the event either. However because of the fall he was sent in for further evaluation. The patient's legal guardian wishes to have his ammonia level checked secondary to his history of cirrhosis. [facility] Medical History Former tobacco use History of alcohol abuse Alcoholic cirrhosis Anxiety and depression Hepatic encephalopathy Suicide attempt Trauma Sleep apnea Gastric reflux Former smoker History of panic attacks Gout Seasonal allergies Cirrhosis Diabetes mellitus type 2 in nonobese HTN (hypertension) Hx of gout Alcoholic hepatitis Carrier of hemochromatosis HFE gene mutation Home Medications ???Medication ???Instructions ???Recorded ???Last Taken ???Type folic acid 1 mg tablet 1 mg PO DAILY #90 tabs 05/02/22 Un known Rx furosemide 40 mg tablet 40 mg PO DAILY WATER PILL 02/07/23 02/06/23 History rifaximin 550 mg tablet (Xifaxan) 550 mg PO BID DEPRESSION 02/07/23 02/06/23 History acetaminophen 325 mg tablet 650 mg PO Q6H PRN 10/24/24 Unknown History aripiprazole 15 mg tablet mg PO 10/24/24 Unknown History lactulose 20 gram/30 mL oral 20 g PO TID PRN 10/24/24 Unknown H istory solution melatonin 3 mg tablet 3 mg PO QHS 10/24/24 Unknown Histo ry menthol 4 % topical gel (Biofreeze 1 applic topical TID PRN 5 Unknown History (menthol)) sennosides 8.6 mg-docusate sodium 1 tab PO QDAY 10/24/24 Unknown Hi story 50 mg tablet (Senexon-S) sodium chloride 0.65 % nasal spray 2 spray intranasal Q6H PRN PRN 0 10/24/24 Unknown History aerosol (Deep Sea Nasal) spironolactone 25 mg tablet 37.5 mg (1.5 x 25 mg) PO DAILY 30 10/24/24 Unknown Rx days #45 tabs thiamine HCl (vitamin B1) 100 mg 100 mg PO QDAY VITAMIN 10/24/24 Un known History tablet (Vitamin B-1) carvedilol 6.25 mg tablet 6.25 mg PO BID 1 month #60 tabs Unknown Rx quetiapine 50 mg tablet 25 mg PO QHS 10/28/24 Unknown Hist ory sertraline 100 mg tablet 50 mg PO QHS DEPRES 10/28/24 Unkno wn History Allergy/AdvReac Type Severity Reaction Status Date / Time pioglitazone Allergy Mild liver Verified 11/02/24 03:58 damange Family History Other CVA (cerebral vascular accident) Cancer Cirrhosis Heart disease Hypertension Thyroid disorder Surgical History History of esophagogastroduodenosco py (EGD) History of surgery Social History housing: homeless current occupation: [email or web address] Smoking Status: Current every day smoker tobacco type: cigarettes and pipe alcohol intake: former substance use type: does not use what type of physical activity do you participate in: other frequency: 1-2 times per week ROS ROS ED Constitutional Constitutional ED: Denies chills or fever(s) Eyes Eyes: Denies blurry vision or change in vision ENT ENT ED: Denies sore throat Cardiovascular Cardiovascular: Reports other Details: Negative syncope ; Denies chest pain, palpitations or racing heartbeat Respiratory/Chest Respiratory/Chest: Denies cough or dyspnea Gastrointestinal Gastrointestinal: Denies abdominal pain, diarrhea, nausea or vomiting Genitourinary Genitourinary ED: Denies dysuria Musculoskeletal Musculoskeletal: Denies back pain or neck pain Integumentary Denies Abrasions Neurologic Neurologic: Denies headache(s) Hematologic/Lymphatic Hematologic/Lymphatic: Denies easy bleeding or easy bruising EXAM Physical Exam Const Vital Signs: 11/02/24 03:58 11/02/24 04:01 11/02/24 04:02 Temperature 97.7 F L 97.7 F L 97.7 F L Temperature Source Oral Oral Pulse Rate 61 62 Respiratory Rate 18 18 Respiratory Effort Normal Non-Labored Respiratory Depth Normal Respi (more content not included)... Normal [facility] Liver Profileon 11-02-2024 Albumin [Mass/Vol] 3.4 g/dL Low 3.5-5.0 [facility] Comment on above: Performed By: #### L 503.7879, L500.2500, L500.3400 ####[facility] [address] [place], [address] ALK PHOS 144 U/L High 40-129 [facility] Comment on above: Performed By: #### L 503.5510, L500.2500, L500.3400 ####[facility] [address] [place], [address] ALT [Catalytic activity/Vol] 51 U/L High <=46 [facility] Comment on above: Performed By: #### L 503.5510, L500.2500, L500.3400 ####[facility] [address] [place], [address] AST [Catalytic activity/Vol] 94 U/L High <=37 [facility] Comment on above: Result Comment: Hemo lysis present, Results??could be affected. ?? Performed By: #### L 503.5510, L500.2500, L500.3400 ####[facility] [address], [address] Bilirubin [Mass/Vol] 2.90 mg/dL High 0.00-1.30 [facility] Comment on above: Performed By: #### L 503.5510, L500.2500, L500.3400 ####[facility] [address] [place], [address] Bilirubin.direct [Mass/Vol] 1.13 mg/dL High 0.00-0.30 [facility] Comment on above: Result Comment: Hemo lysis present, Results??could be affected. ?? Performed By: #### L 503.5510, L500.2500, L500.3400 ####[facility] [address] [place], [address] Globulin (S) [Mass/Vol] 3.3 g/dL Normal 2.2-4.2 [facility] Comment on above: Performed By: #### L 503.5510, L500.2500, L500.3400 ####[facility] [address] [place], [address] T PROT 6.8 g/dL Normal 5.9-8.4 [facility] Comment on above: Performed By: #### L 503.5510, L500.2500, L500.3400 ####[facility] [address] [place], [address] Urinalysis, Completeon 11-02 BACTERIA 2+ /hpf Normal None Seen [facility] Comment on above: Order Comment: CLEAN CATCH Performed By: #### L 400.0001 ####[facility] [address] [place], [address] EPI,SQUAMOUS 0 SEEN Normal 0-5 [facility] Comment on above: Order Comment: CLEAN CATCH Performed By: #### L 400.0001 ####[facility] [address] [place], [address] Mucus Ql (Urine sed) 0 SEEN Normal [facility] Comment on above: Order Comment: CLEAN CATCH Performed By: #### L 400.0001 ####[facility] [address] [place], [address] RBC 0 SEEN Normal 0-5 [facility] Comment on above: Order Comment: CLEAN CATCH Performed By: #### L 400.0001 ####[facility] [address] [place], [address] WBC 0 SEEN Normal 0-5 [facility] Comment on above: Order Comment: CLEAN CATCH Performed By: #### L 400.0001 ####[facility] [address] [place], [address] AFP, Tumor Markeron 10-26-19 25 AFP TUMOR DIRK 4.8 ng/mL Normal 0.0-6.9 [facility] Comment on above: Order Comment: N Result Comment: [employer] [employer] Electrochemiluminescence Immunoassay (ECLIA) Values obtained with different assay methods or kits cannot be used interchangeably. Results cannot be interpreted as absolute evidence of the presence or absence of malignant disease. This test is not interpretable in females. Performed at: [address] [id number] Concession Stand Attendant: Ciro Putnam PhD, Phone: [phone] Performed By: #### L 3890.6202, L503.5510, L500.4050, L501.6710, L501.9985, L3300.0700, L500.4100, L3000.0375, L300.3900, L504.2610, L100.0100 ####[facility] [address] [place], [address] Hepatitis Panel Acuteon 04- COMMENT Comment Normal . [facility] Comment on above: Result Comment: Not infected with HCV unless early or acute infection is suspected (which may be delayed in an immunocompromised individual), or other evidence exists to indicate HCV infection. Performed By: #### L 3890.6202, L503.5510, L500.4050, L501.6710, L501.9985, L3300.0700, L500.4100, L3000.0375, L300.3900, L504.2610, L100.0100 ####[facility] [address] [place], [address] HEP B CORE,IgM Negative Normal Negative [facility] Comment on above: Performed By: #### L 3890.6202, L503.5510, L500.4050, L501.6710, L501.9985, L3300.0700, L500.4100, L3000.0375, L300.3900, L504.2610, L100.0100 ####[facility] [address] [place], [address] HEP B SURF AG Negative Normal Negative [facility] Comment on above: Performed By: #### L 3890.6202, L503.5510, L500.4050, L501.6710, L501.9985, L3300.0700, L500.4100, L3000.0375, L300.3900, L504.2610, L100.0100 ####[facility] [address] [place], [place], [id number] HEP C VIRUS AB Non-Reactive Normal Non Reactive [facility] Comment on above: Performed By: #### L 3890.6202, L503.5510, L500.4050, L501.6710, L501.9985, L3300.0700, L500.4100, L3000.0375, L300.3900, L504.2610, L100.0100 ####[facility] [address] [place], [place], [id number] HEPATITIS A-IgM Negative Normal Negative [facility] Comment on above: Result Comment: A ne gative anti-HAV IgM result suggests no recent or current HAV infection. Performed By: #### L 3890.6202, L503.5510, L500.4050, L501.6710, L501.9985, L3300.0700, L500.4100, L3000.0375, L300.3900, L504.2610, L100.0100 ####[facility] [address] [place], [place], [id number] Ammoniaon 10-24-2024 Ammonia (P) [Moles/Vol] 185.0 umol/L High 16-60 [facility] Comment on above: Performed By: #### L 3890.6202, L503.5510, L500.4050, L501.6710, L501.9985, L3300.0700, L500.4100, L3000.0375, L300.3900, L504.2610, L100.0100 #### [facility] [address] [place], [address] CBC W/Diff, Automatedon 04-1 0-2025 Absolute Lymph 0.84 X10 3/uL Normal 0.83-4.51 [facility] Comment on above: Performed By: #### L 3890.6202, L503.5510, L500.4050, L501.6710, L501.9985, L3300.0700, L500.4100, L3000.0375, L300.3900, L504.2610, L100.0100 #### [facility] [address] [place], [address] Absolute Neut 2.4 X10 3/uL Normal 2.0-7.7 [facility] Comment on above: Performed By: #### L 3890.6202, L503.5510, L500.4050, L501.6710, L501.9985, L3300.0700, L500.4100, L3000.0375, L300.3900, L504.2610, L100.0100 #### [facility] [address] [place], [place], [phone] (000) Basophils/100 WBC (Bld) 0.6 % Normal 0-1 [facility] Comment on above: Performed By: #### L 3890.6202, L503.5510, L500.4050, L501.6710, L501.9985, L3300.0700, L500.4100, L3000.0375, L300.3900, L504.2610, L100.0100 #### [facility] [address] [place], [place], [phone] (740) Eosinophils/100 WBC (Bld) 1.4 % Normal 0-5 [facility] Comment on above: Performed By: #### L 3890.6202, L503.5510, L500.4050, L501.6710, L501.9985, L3300.0700, L500.4100, L3000.0375, L300.3900, L504.2610, L100.0100 #### [facility] [address] [facility] [place], [place], [phone] Erythrocyte distribution width (RBC) [Ratio] 14.9 % High 11.6-14.6 [facility] Comment on above: Performed By: #### L 3890.6202, L503.5510, L500.4050, L501.6710, L501.9985, L3300.0700, L500.4100, L3000.0375, L300.3900, L504.2610, L100.0100 #### [facility] [address] [place], [address] (442) Hematocrit (Bld) [Volume fraction] 36.1 % Low 40-54 [facility] Comment on above: Performed By: #### L 3890.6202, L503.5510, L500.4050, L501.6710, L501.9985, L3300.0700, L500.4100, L3000.0375, L300.3900, L504.2610, L100.0100 #### [facility] [address] [facility] [place], [address] Hemoglobin (Bld) [Mass/Vol] 13.1 g/dL Normal 13.0-16.5 [facility] Comment on above: Performed By: #### L 3890.6202, L503.5510, L500.4050, L501.6710, L501.9985, L3300.0700, L500.4100, L3000.0375, L300.3900, L504.2610, L100.0100 #### [facility] [address] [facility] [place], [place], [phone] (403) IG% 0.300 Normal 0.0-0.9 [facility] Comment on above: Result Comment: IG% - Immature Granulocytes (promyelocytes, myelocytes and metamyelocytes) > 1% indicates that a LEFT SHIFT is Present. Performed By: #### L 3890.6202, L503.5510, L500.4050, L501.6710, L501.9985, L3300.0700, L500.4100, L3000.0375, L300.3900, L504.2610, L100.0100 #### [facility] [address] [place], [address] Lymphocytes/100 WBC (Bld) 23.1 % Normal 19-41 [facility] Comment on above: Performed By: #### L 3890.6202, L503.5510, L500.4050, L501.6710, L501.9985, L3300.0700, L500.4100, L3000.0375, L300.3900, L504.2610, L100.0100 #### [facility] [address] [place], [address] MCH (RBC) [Entitic mass] 37.1 pg High 27.0-32.0 [facility] Comment on above: Performed By: #### L 3890.6202, L503.5510, L500.4050, L501.6710, L501.9985, L3300.0700, L500.4100, L3000.0375, L300.3900, L504.2610, L100.0100 #### [facility] [address] [place], [address] MCHC (RBC) [Mass/Vol] 36.3 g/dL High 32-36 [facility] Comment on above: Performed By: #### L 3890.6202, L503.5510, L500.4050, L501.6710, L501.9985, L3300.0700, L500.4100, L3000.0375, L300.3900, L504.2610, L100.0100 #### [facility] [address] [place], [address] MCV (RBC) [Entitic vol] 102.3 fL High 80-94 [facility] Comment on above: Performed By: #### L 3890.6202, L503.5510, L500.4050, L501.6710, L501.9985, L3300.0700, L500.4100, L3000.0375, L300.3900, L504.2610, L100.0100 #### [facility] [address] [place], [place], [phone] (909) Monocytes/100 WBC (Bld) 9.1 % Normal 0-10 [facility] Comment on above: Performed By: #### L 3890.6202, L503.5510, L500.4050, L501.6710, L501.9985, L3300.0700, L500.4100, L3000.0375, L300.3900, L504.2610, L100.0100 #### [facility] [address] [facility] [place], [address] (500) Neutrophils/100 WBC (Bld) 65.5 % Normal 47-70 [facility] Comment on above: Performed By: #### L 3890.6202, L503.5510, L500.4050, L501.6710, L501.9985, L3300.0700, L500.4100, L3000.0375, L300.3900, L504.2610, L100.0100 #### [facility] [address] [facility] [place], [address] (841) Nucleated RBC (Bld) [#/Vol] 0 10*3/uL Normal 0-5 [facility] Comment on above: Performed By: #### L 3890.6202, L503.5510, L500.4050, L501.6710, L501.9985, L3300.0700, L500.4100, L3000.0375, L300.3900, L504.2610, L100.0100 #### [facility] [address] [place], [address] (032) Platelet mean volume (Bld) [Entitic vol] 9.7 fL Normal 6.2-12.0 [facility] Comment on above: Performed By: #### L 3890.6202, L503.5510, L500.4050, L501.6710, L501.9985, L3300.0700, L500.4100, L3000.0375, L300.3900, L504.2610, L100.0100 #### [facility] [address] [place], [place], [address] (744) Platelets (Bld) [#/Vol] 80 10*3/uL Low 150-450 [facility] Comment on above: Performed By: #### L 3890.6202, L503.5510, L500.4050, L501.6710, L501.9985, L3300.0700, L500.4100, L3000.0375, L300.3900, L504.2610, L100.0100 #### [facility] [address] [place], [place], [address] (673) RBC (Bld) [#/Vol] 3.53 10*6/uL Low 4.6-6.2 [facility] Comment on above: Performed By: #### L 3890.6202, L503.5510, L500.4050, L501.6710, L501.9985, L3300.0700, L500.4100, L3000.0375, L300.3900, L504.2610, L100.0100 #### [facility] [address] [place], [place], [address] (708) RDW SD 56.4 fl High 35.1-43.9 [facility] Comment on above: Performed By: #### L 3890.6202, L503.5510, L500.4050, L501.6710, L501.9985, L3300.0700, L500.4100, L3000.0375, L300.3900, L504.2610, L100.0100 #### [facility] [address] [place], [place], [phone] WBC (Bld) [#/Vol] 3.6 10*3/uL Low 4.4-11.0 [facility] Comment on above: Performed By: #### L 3890.6202, L503.5510, L500.4050, L501.6710, L501.9985, L3300.0700, L500.4100, L3000.0375, L300.3900, L504.2610, L100.0100 #### [facility] [address] [place], [place], [phone] CRPon 10-24-2024 C-REACTIVE PROT < 3.00 Normal 0.0-3.0 [facility] Comment on above: Performed By: #### L 3890.6202, L503.5510, L500.4050, L501.6710, L501.9985, L3300.0700, L500.4100, L3000.0375, L300.3900, L504.2610, L100.0100 ####[facility] [address] [place], [place], [phone] Comprehensive Metabolic Prof ilon 10-24-2024 Albumin [Mass/Vol] 3.7 g/dL Normal 3.5-5.0 [facility] Comment on above: Performed By: #### L 3890.6202, L503.5510, L500.4050, L501.6710, L501.9985, L3300.0700, L500.4100, L3000.0375, L300.3900, L504.2610, L100.0100 ####[facility] [address] [place], [place], [phone] Albumin/Globulin [Mass ratio] 1.2 {ratio} Normal 0.9-2.4 [facility] Comment on above: Performed By: #### L 3890.6202, L503.5510, L500.4050, L501.6710, L501.9985, L3300.0700, L500.4100, L3000.0375, L300.3900, L504.2610, L100.0100 ####[facility] [address] [place], [address] ALK PHOS 203 U/L High 40-129 [facility] Comment on above: Performed By: #### L 3890.6202, L503.5510, L500.4050, L501.6710, L501.9985, L3300.0700, L500.4100, L3000.0375, L300.3900, L504.2610, L100.0100 ####[facility] [address] [facility] [place], [address] ALT [Catalytic activity/Vol] 84 U/L High <=46 [facility] Comment on above: Performed By: #### L 3890.6202, L503.5510, L500.4050, L501.6710, L501.9985, L3300.0700, L500.4100, L3000.0375, L300.3900, L504.2610, L100.0100 ####[facility] [address] [place], [address] AST [Catalytic activity/Vol] 165 U/L High <=37 [facility] Comment on above: Performed By: #### L 3890.6202, L503.5510, L500.4050, L501.6710, L501.9985, L3300.0700, L500.4100, L3000.0375, L300.3900, L504.2610, L100.0100 ####[facility] [address] [facility] [place], [address] Bilirubin [Mass/Vol] 2.65 mg/dL High 0.00-1.30 [facility] Comment on above: Performed By: #### L 3890.6202, L503.5510, L500.4050, L501.6710, L501.9985, L3300.0700, L500.4100, L3000.0375, L300.3900, L504.2610, L100.0100 ####[facility] [address] [place], [address] BUN/CRE 13.1 RATIO Normal 10-20 [facility] Comment on above: Performed By: #### L 3890.6202, L503.5510, L500.4050, L501.6710, L501.9985, L3300.0700, L500.4100, L3000.0375, L300.3900, L504.2610, L100.0100 ####[facility] [address] [place], [address] Calcium [Mass/Vol] 9.1 mg/dL Normal 7.6-11.0 [facility] Comment on above: Performed By: #### L 3890.6202, L503.5510, L500.4050, L501.6710, L501.9985, L3300.0700, L500.4100, L3000.0375, L300.3900, L504.2610, L100.0100 ####[facility] [address] [place], [address] Chloride [Moles/Vol] 107 mmol/L Normal 98-108 [facility] Comment on above: Performed By: #### L 3890.6202, L503.5510, L500.4050, L501.6710, L501.9985, L3300.0700, L500.4100, L3000.0375, L300.3900, L504.2610, L100.0100 ####[facility] [address] [place], [address] CO2 [Moles/Vol] 22.2 mmol/L Normal 21.0-32.0 [facility] Comment on above: Performed By: #### L 3890.6202, L503.5510, L500.4050, L501.6710, L501.9985, L3300.0700, L500.4100, L3000.0375, L300.3900, L504.2610, L100.0100 ####[facility] [address] [place], [place], [phone] Creatinine [Mass/Vol] 0.84 mg/dL Normal 0.70-1.20 [facility] Comment on above: Performed By: #### L 3890.6202, L503.5510, L500.4050, L501.6710, L501.9985, L3300.0700, L500.4100, L3000.0375, L300.3900, L504.2610, L100.0100 ####[facility] [address] [place], [place], [id number] GAP 11 Normal 5-15 [facility] Comment on above: Performed By: #### L 3890.6202, L503.5510, L500.4050, L501.6710, L501.9985, L3300.0700, L500.4100, L3000.0375, L300.3900, L504.2610, L100.0100 ####[facility] [address] [facility] [address] [place], [place], [phone] GFR/1.73 sq M.predicted among non-blacks MDRD (S/P/Bld) [Vol rate/Area] 106 mL/min/{1.73_m2} Normal >60 [facility] Comment on above: Result Comment: mL/m in/1.73m2 CKD-EPI Creatinine Equation (2020) Performed By: #### L 3890.6202, L503.5510, L500.4050, L501.6710, L501.9985, L3300.0700, L500.4100, L3000.0375, L300.3900, L504.2610, L100.0100 ####[facility] [address] [place], [address] Globulin (S) [Mass/Vol] 3.2 g/dL Normal 2.2-4.2 [facility] Comment on above: Performed By: #### L 3890.6202, L503.5510, L500.4050, L501.6710, L501.9985, L3300.0700, L500.4100, L3000.0375, L300.3900, L504.2610, L100.0100 ####[facility] [address] [place], [address] Glucose [Mass/Vol] 113 mg/dL High 70-99 [facility] Comment on above: Performed By: #### L 3890.6202, L503.5510, L500.4050, L501.6710, L501.9985, L3300.0700, L500.4100, L3000.0375, L300.3900, L504.2610, L100.0100 ####[facility] [address] [place], [address] Potassium [Moles/Vol] 3.6 mmol/L Normal 3.3-5.1 [facility] Comment on above: Performed By: #### L 3890.6202, L503.5510, L500.4050, L501.6710, L501.9985, L3300.0700, L500.4100, L3000.0375, L300.3900, L504.2610, L100.0100 ####[facility] [address] [place], [address] Sodium [Moles/Vol] 140 mmol/L Normal 133-145 [facility] Comment on above: Performed By: #### L 3890.6202, L503.5510, L500.4050, L501.6710, L501.9985, L3300.0700, L500.4100, L3000.0375, L300.3900, L504.2610, L100.0100 ####[facility] [address] [place], [address] T PROT 6.8 g/dL Normal 5.9-8.4 [facility] Comment on above: Performed By: #### L 3890.6202, L503.5510, L500.4050, L501.6710, L501.9985, L3300.0700, L500.4100, L3000.0375, L300.3900, L504.2610, L100.0100 ####[facility] [address] [place], [address] Urea nitrogen [Mass/Vol] 11 mg/dL Normal 4-19 [facility] Comment on above: Performed By: #### L 3890.6202, L503.5510, L500.4050, L501.6710, L501.9985, L3300.0700, L500.4100, L3000.0375, L300.3900, L504.2610, L100.0100 ####[facility] [address] [place], [place], [address] Gastroenterology Visit Repor ton 10-24-2024 Gastroenterology Visit Report [facility] [address] [place] [address] OFFICE VISIT Date of Service: 10/24/24 MR#: [id number] Acct: [id number] Name: ALEX ROJO Rep #: [id number] : 1975 Provider: Dr. Dewayne cervantes MD Age/Sex: 49/M Location: [facility] Status: Signed Intake Vital Signs 06/14/23 14:54 09/19/24 11:44 10/24/24 10:24 Height 5 ft 9 in 5 ft 9 in 5 ft 9 in Weight: 195 lb BMI 28.8 BP 145/72 H Blood Pressure Location Lt brachial Position Sitting Respiration 18 Pulse 82 Pulse Source Monitor Temp 98.1 F Temp Source Oral Pulse Oximetry (%) 94 Oxygen Delivery Method room air Intake Visit Reasons: Elevated Bilirubin [employer] Supervisor Required: No Accompanied by: Self Is patient in pain?: No Allergies pioglitazone Allergy (Mild, Verified 10/24/24 10:26) liver damange Medications ???Medication ???Instructions ???Recorded ???Confirmed ???Type folic acid 1 mg tablet 1 mg PO DAILY #90 tabs 05/02/22 Rx furosemide 40 mg tablet 40 mg PO DAILY WATER PILL 02/07/23 10/24/24 History rifaximin 550 mg tablet (Xifaxan) 550 mg PO BID DEPRESSION 02/07/23 10/24/24 History sertraline 100 mg tablet 100 mg PO QHS DEPRES 02/12/2310/15 History acetaminophen 325 mg tablet 650 mg PO Q6H PRN 10/24/24 5 History aripiprazole 15 mg tablet mg PO 10/24/24 10/24/24 History carvedilol 6.25 mg tablet 3.125 mg (1/2 x 6.25 mg) PO BID 1 10/24/24 10/24/24 Rx month #30 tabs clotrimazole 1 % topical cream applic topical BID 10/24/24 History guaifenesin 100 mg/5 mL oral 200 mg PO Q8H PRN 10/24/24 5 History liquid (Ashley-Tussin) lactulose 20 gram/30 mL oral 20 g PO TID PRN 10/24/24 History solution magnesium hydroxide 400 mg/5 mL 30 ml PO QDAY PRN 10/24/24 5 History oral suspension (Milk of Magnesia) melatonin 3 mg tablet 3 mg PO QHS 10/24/24 10/24/24 Hist ory menthol 4 % topical gel (Biofreeze 1 applic topical TID PRN 5 10/24/24 History (menthol)) quetiapine 50 mg tablet 50 mg PO QHS 10/24/24 10/24/24 His tory sennosides 8.6 mg-docusate sodium 1 tab PO QDAY 10/24/24 10/24/24 H istory 50 mg tablet (Senexon-S) sodium chloride 0.65 % nasal spray 2 spray intranasal Q6H PRN PRN 0 10/24/24 10/24/24 History aerosol (Deep Sea Nasal) spironolactone 25 mg tablet 37.5 mg (1.5 x 25 mg) PO DAILY 30 10/24/24 10/24/24 Rx days #45 tabs thiamine HCl (vitamin B1) 100 mg 100 mg PO QDAY VITAMIN 10/24/24 H istory tablet (Vitamin B-1) PFSH Medical History Former tobacco use History of alcohol abuse Alcoholic cirrhosis Anxiety and depression Hepatic encephalopathy Suicide attempt Trauma Sleep apnea Gastric reflux Former smoker History of panic attacks Gout Seasonal allergies Cirrhosis Diabetes mellitus type 2 in nonobese HTN (hypertension) Hx of gout Alcoholic hepatitis Carrier of hemochromatosis HFE gene mutation Surgical History History of esophagogastroduodenosco py (EGD) History of surgery Family History Other CVA (cerebral vascular accident) Cancer Cirrhosis Heart disease Hypertension Thyroid disorder Social History housing: homeless 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 Diana Abarca for alcoholic hepatitis without ascites, with coagulopathy and jaundice. He is pursuing transplant options through [facility] as they do not require COVID vaccination. Biochemical workup diagnosed DMII with A1c 7.2; elevated ammonia 117; multiple autoimmune tests abnormal and was referred to rheumatology. RUQ US and elastography 10.08.21 liver measures 12.8cm with mild perihepatic fluid and fatty infiltration of liver. Stiffness measures 39.8 kPa F4. Liver biopsy 3.28.22 consistent with cirrhosis with distortion of normal lobular architecture into multiple nodules; reactive hepatocyte changes; chronic inflammatory cell infiltrates; focal interface inflammation noted; mild increase of iron (1+); unremarkable reticular stain; no abnormal protein accumulation. EGD 5. (more content not included)... Normal [facility] Hemoglobin A1con 10-24-2024 HbA1c (Bld) [Mass fraction] 4.9 % Low <=5.6 [facility] Comment on above: Performed By: #### L 3890.6202, L503.5510, L500.4050, L501.6710, L501.9985, L3300.0700, L500.4100, L3000.0375, L300.3900, L504.2610, L100.0100 #### [facility] [address] [facility] [address] [address] [place], [place], [id number] Hepatitis B Surface Antibody on 10-24-2024 HEP B Surf Ab Non-Reactive Normal [facility] Comment on above: Result Comment: <8.5 mIU/mL: Non-Reactive 8.5<= x <11.5 mIU/mL: Indeterminate >=11.5 mIU/mL: Reactive Non Reactive: Inconsistent with immunity less than <10 mIU/mL Reactive: Consistent with immunity greater than or equal to 10 mIU/mL Performed By: #### L 3890.6202, L503.5510, L500.4050, L501.6710, L501.9985, L3300.0700, L500.4100, L3000.0375, L300.3900, L504.2610, L100.0100 ####[facility] [address] [place], [place], [phone] LDHon 10-24-2024 LDH 330 U/L High 87-241 [facility] Comment on above: Order Comment: 1 Performed By: #### L 3890.6202, L503.5510, L500.4050, L501.6710, L501.9985, L3300.0700, L500.4100, L3000.0375, L300.3900, L504.2610, L100.0100 ####[facility] [address] [place], [place], [address] Lipid Profileon 10-24-2024 CHOL:HDL 2.20 Normal [facility] Comment on above: Performed By: #### L 3890.6202, L503.5510, L500.4050, L501.6710, L501.9985, L3300.0700, L500.4100, L3000.0375, L300.3900, L504.2610, L100.0100 ####[facility] [address] [facility] [address] [place], [place], [phone] Cholesterol [Mass/Vol] 127 mg/dL Normal <=200 [facility] Comment on above: Result Comment: Chol esterol level, Desirable <200 mg/dL Borderline high cholesterol 200-239 mg/dL High cholesterol >=240 mg/dL Recommendations of the NCEP Adult Treatment Panel for the following risk-cutoff thresholds for the [place] population. Performed By: #### L 3890.6202, L503.5510, L500.4050, L501.6710, L501.9985, L3300.0700, L500.4100, L3000.0375, L300.3900, L504.2610, L100.0100 ####[facility] [address] [place], [place], [phone] Cholesterol in HDL [Mass/Vol] 58 mg/dL Normal [facility] Comment on above: Result Comment: Tonya onal Cholesterol Education Program (NCEP) guidelines: <40 mg/dL: Low HDL-cholesterol (major risk factor for CHD) >= 60 mg/dL: High HDL-cholesterol (negative risk factor for CHD) HDL-cholesterol is affected by a number of factors, e.g. smoking, exercise, hormones, sex and age. Performed By: #### L 3890.6202, L503.5510, L500.4050, L501.6710, L501.9985, L3300.0700, L500.4100, L3000.0375, L300.3900, L504.2610, L100.0100 ####[facility] [address] [place], [address](290) Cholesterol in LDL [Mass/Vol] 56 mg/dL Normal [facility] Comment on above: Result Comment: Bord magxso=802-539 mg/dL Higher Xops=788 mg/dL or greater Performed By: #### L 3890.6202, L503.5510, L500.4050, L501.6710, L501.9985, L3300.0700, L500.4100, L3000.0375, L300.3900, L504.2610, L100.0100 ####[facility] [address] [place], [address] Cholesterol in VLDL [Mass/Vol] 14 mg/dL Normal 5-40 [facility] Comment on above: Performed By: #### L 3890.6202, L503.5510, L500.4050, L501.6710, L501.9985, L3300.0700, L500.4100, L3000.0375, L300.3900, L504.2610, L100.0100 ####[facility] [address] [place], [address](780) Triglyceride [Mass/Vol] 69 mg/dL Normal [facility] Comment on above: Result Comment: The drugs N-Acetylcysteine and Metamizole may falsely depress this assay. Normal range: <150 mg/dL Borderline High: 150-199 mg/dL High: 200-499 mg/dL Very High: >500 mg/dL Performed By: #### L 3890.6202, L503.5510, L500.4050, L501.6710, L501.9985, L3300.0700, L500.4100, L3000.0375, L300.3900, L504.2610, L100.0100 ####[facility] [address] [place], [address](228) Prothrombin Time w/INRon 04- -2025 INR Coag (PPP) [Relative time] 1.4 {INR} Normal [facility] Comment on above: Performed By: #### L 3890.6202, L503.5510, L500.4050, L501.6710, L501.9985, L3300.0700, L500.4100, L3000.0375, L300.3900, L504.2610, L100.0100 #### [facility] [address] [place], [address] PT Coag (PPP) [Time] 17.9 s High 11.7-14.9 [facility] Comment on above: Performed By: #### L 3890.6202, L503.5510, L500.4050, L501.6710, L501.9985, L3300.0700, L500.4100, L3000.0375, L300.3900, L504.2610, L100.0100 #### [facility] [address] [place], [place], [id number] CT HEAD OR BRAIN W/O CONTRAS Ton 07-14-2024 CT HEAD OR BRAIN W/O CONTRAST ORIGINAL EXAMINATION: CT OF THE HEAD WITHOUT CONTRAST 07/14/2024 3:17 am TECHNIQUE: CT of the head was performed without the administration of intravenous contrast. Automated exposure control, iterative reconstruction, and/or weight based adjustment of the mA/kV was utilized to reduce the radiation dose to as low as reasonably achievable. COMPARISON: None. HISTORY: ORDERING SYSTEM PROVIDED HISTORY: Reason for Exam: pt says he hit his head on a table last night. INJURY FINDINGS: BRAIN/VENTRICLES: There is no acute intracranial hemorrhage, mass effect or midline shift. No abnormal extra-axial fluid collection. The orozco-white differentiation is maintained without evidence of an acute infarct. There is no evidence of hydrocephalus. ORBITS: The visualized portion of the orbits demonstrate no acute abnormality. SINUSES: The visualized paranasal sinuses and mastoid air cells demonstrate no acute abnormality. SOFT TISSUES/SKULL: No acute abnormality of the visualized skull or soft tissues. IMPRESSION: No acute intracranial abnormality. Interpreted by: Lisa Baer MD Preliminary Report By: Lisa Baer MD Electronically signed By Lisa Baer MD Dictated Date: 07/14/2024 3:25:15 AM Prelim Date: 07/14/2024 3:29:19 AM Sign Date: 07/14/2024 3:29:19 AM Ordering Provider: WAQAS GARSIA [facility] CT SPINE CERVICAL W/O CONTRA STon 07-14-2024 CT SPINE CERVICAL W/O CONTRAST ORIGINAL EXAMINATION: CT OF THE CERVICAL SPINE WITHOUT CONTRAST 07/14/2024 3:20 am TECHNIQUE: CT of the cervical spine was performed without the administration of intravenous contrast. Multiplanar reformatted images are provided for review. Automated exposure control, iterative reconstruction, and/or weight based adjustment of the mA/kV was utilized to reduce the radiation dose to as low as reasonably achievable. COMPARISON: None. HISTORY: ORDERING SYSTEM PROVIDED HISTORY: Reason for Exam: INJURY FINDINGS: BONES/ALIGNMENT: There is no acute fracture or traumatic malalignment. DEGENERATIVE CHANGES: Moderate degenerative changes noted throughout the spine. SOFT TISSUES: There is no prevertebral soft tissue swelling. IMPRESSION: No acute abnormality of the cervical spine. Interpreted by: Lisa Baer MD Preliminary Report By: Lisa Baer MD Electronically signed By Lisa Baer MD Dictated Date: 07/14/2024 3:29:27 AM Prelim Date: 07/14/2024 3:34:31 AM Sign Date: 07/14/2024 3:34:31 AM Ordering Provider: WAQAS GARSIA [facility] .GFRon 07-13-2024 GFR 76 ml/min/1.73sqm [facility] Comment on above: Result Comment: GFR Population mean for , Non- Americans Ages 20-29 = 116 mL/min/1.73 sq.m. Ages 30-39 = 107 mL/min/1.73 sq.m. Ages 40-49 = 99 mL/min/1.73 sq.m. Ages 50-59 = 93 mL/min/1.73 sq.m. Ages 60-69 = 85 mL/min/1.73 sq.m. Ages 70+ = 75 mL/min/1.73 sq.m. Chronic Kidney Disease: Less than 60 mL/min/1.73 square meters End Stage Renal Disease: Less than 15 mL/min/1.73 square meters Performed By: #### C BC, GFR, PRO, PBNP, MORPH, CMP, DIFF, APTT, MDW, DIMER ####[address] [place], [place] [address] GFR Non- 63 ml/min/1.73sqm Normal [facility] Comment on above: Result Comment: GFR Population mean for , Non- Americans Ages 20-29 = 116 mL/min/1.73 sq.m. Ages 30-39 = 107 mL/min/1.73 sq.m. Ages 40-49 = 99 mL/min/1.73 sq.m. Ages 50-59 = 93 mL/min/1.73 sq.m. Ages 60-69 = 85 mL/min/1.73 sq.m. Ages 70+ = 75 mL/min/1.73 sq.m. Chronic Kidney Disease: Less than 60 mL/min/1.73 square meters End Stage Renal Disease: Less than 15 mL/min/1.73 square meters Performed By: #### C BC, GFR, PRO, PBNP, MORPH, CMP, DIFF, APTT, MDW, DIMER ####[place] [address] [place], [place] [address] .MDWon 07-13-2024 Monocyte Distribution Width Not tested Normal 0.00-20.00 [facility] Comment on above: Result Comment: MDW testing unable to be performed on [id number] instrumentation. Performed By: #### C BC, GFR, PRO, PBNP, MORPH, CMP, DIFF, APTT, MDW, DIMER ####[address] [place], [place] [address] .Manual Diffon 07-13-2024 Basophil %, Manual 0.0 % Normal 0.0-2.5 [facility] Comment on above: Performed By: #### C BC, GFR, PRO, PBNP, MORPH, CMP, DIFF, APTT, MDW, DIMER ####[address]rea [address] [place], [place] [address] Basophil, Abs Manual 0.0 10 3/mcL Normal 0.0-0.[address] [facility] Comment on above: Performed By: #### C BC, GFR, PRO, PBNP, MORPH, CMP, DIFF, APTT, MDW, DIMER ####[place] [address] [place], [place] [address] Eosinophil %, Manual 3.0 % Normal 0.0-7.0 [facility] Comment on above: Performed By: #### C BC, GFR, PRO, PBNP, MORPH, CMP, DIFF, APTT, MDW, DIMER ####[place] [address] [place], [place] [address] Eosinophil, Abs Manual 0.1 10 3/mcL Normal 0.0-0.7 [facility] Comment on above: Performed By: #### C BC, GFR, PRO, PBNP, MORPH, CMP, DIFF, APTT, MDW, DIMER ####[address] [address] Lymphocyte %, Manual 23.0 % Normal 20.0-40.0 [facility] Comment on above: Performed By: #### C BC, GFR, PRO, PBNP, MORPH, CMP, DIFF, APTT, MDW, DIMER ####[address] [address] Lymphocyte, Abs Manual 1.0 10 3/mcL Normal 0.9-4.3 [facility] Comment on above: Performed By: #### C BC, GFR, PRO, PBNP, MORPH, CMP, DIFF, APTT, MDW, DIMER ####[address] [address] Monocyte %, Manual 11.0 % Normal 2.0-13.0 [facility] Comment on above: Performed By: #### C BC, GFR, PRO, PBNP, MORPH, CMP, DIFF, APTT, MDW, DIMER ####[place] [address] [place], [place] [address] Monocyte, Abs Manual 0.5 10 3/mcL Normal 0.1-1.[address] [facility] Comment on above: Performed By: #### C BC, GFR, PRO, PBNP, MORPH, CMP, DIFF, APTT, MDW, DIMER ####[address] [place] [phone] Neutrophil %, Manual 63.0 % Normal 50.0-75.0 [facility] Comment on above: Performed By: #### C BC, GFR, PRO, PBNP, MORPH, CMP, DIFF, APTT, MDW, DIMER ####[place] [address] Neutrophil, Abs Manual 2.7 10 3/mcL Normal 2.3-8.1 [facility] Comment on above: Performed By: #### C BC, GFR, PRO, PBNP, MORPH, CMP, DIFF, APTT, MDW, DIMER ####Andrea [address] [place] [address] Nucleated RBC 0.0 /100 WBC Normal [facility] Comment on above: Performed By: #### C BC, GFR, PRO, PBNP, MORPH, CMP, DIFF, APTT, MDW, DIMER ####[address] [place] [phone] .Morphon 07-13-2024 Platelet Estimate Decreased Normal [facility] Comment on above: Performed By: #### C BC, GFR, PRO, PBNP, MORPH, CMP, DIFF, APTT, MDW, DIMER ####[place] [address] [place] [phone] APTTon 07-13-2024 aPTT Coag (Bld) [Time] 39.7 s High 25.0-35.0 [facility] Comment on above: Result Comment: For Heparin anticoagulation therapy, the recommended therapeutic range is: 45.4-75.9 seconds. Patients on heparin therapy may have an extreme result. Performed By: #### C BC, GFR, PRO, PBNP, MORPH, CMP, DIFF, APTT, MDW, DIMER ####[address] [place], [place] [address] CBCon 07-13-2024 Erythrocyte distribution width (RBC) [Ratio] 12.9 % Normal 11.5-15.5 [facility] Comment on above: Performed By: #### C BC, GFR, PRO, PBNP, MORPH, CMP, DIFF, APTT, MDW, DIMER ####[place] [address] [place], [place] [address] Hematocrit (Bld) [Volume fraction] 31.9 % Low 40.0-52.0 [facility] Comment on above: Performed By: #### C BC, GFR, PRO, PBNP, MORPH, CMP, DIFF, APTT, MDW, DIMER ####[place] [address] [place] [address] Hgb 11.2 G/dL Low 13.0-17.5 [facility] Comment on above: Performed By: #### C BC, GFR, PRO, PBNP, MORPH, CMP, DIFF, APTT, MDW, DIMER ####[place] [address] [place] [phone] MCH (RBC) [Entitic mass] 38.5 pg High 27.0-33.0 [facility] Comment on above: Performed By: #### C BC, GFR, PRO, PBNP, MORPH, CMP, DIFF, APTT, MDW, DIMER ####[address] [address] MCHC 35.4 G/dL Normal 32.0-36.0 [facility] Comment on above: Performed By: #### C BC, GFR, PRO, PBNP, MORPH, CMP, DIFF, APTT, MDW, DIMER ####[place] [address] [place] [phone] MCV (RBC) [Entitic vol] 109.0 fL High 81.0-100.0 [facility] Comment on above: Performed By: #### C BC, GFR, PRO, PBNP, MORPH, CMP, DIFF, APTT, MDW, DIMER ####[place] [address] [place], [place] [address] Platelet 68 10 3/mcL Low 150-450 [facility] Comment on above: Performed By: #### C BC, GFR, PRO, PBNP, MORPH, CMP, DIFF, APTT, MDW, DIMER ####[address] [place], [place] [address] Platelet mean volume (Bld) [Entitic vol] 7.2 fL Normal 6.4-10.5 [facility] Comment on above: Performed By: #### C BC, GFR, PRO, PBNP, MORPH, CMP, DIFF, APTT, MDW, DIMER ####[address] [place] [address] RBC 2.93 10 6/mcL Low 4.50-6.00 [facility] Comment on above: Performed By: #### C BC, GFR, PRO, PBNP, MORPH, CMP, DIFF, APTT, MDW, DIMER ####[address] [place] [address] WBC 4.2 10 3/mcL Low 4.5-10.8 [facility] Comment on above: Performed By: #### C BC, GFR, PRO, PBNP, MORPH, CMP, DIFF, APTT, MDW, DIMER ####[address] [place] [phone] CMPon 07-13-2024 Albumin Level 2.5 G/dL Low 3.5-5.0 [facility] Comment on above: Performed By: #### C BC, GFR, PRO, PBNP, MORPH, CMP, DIFF, APTT, MDW, DIMER ####[address] [place] [phone] Albumin/Globulin [Mass ratio] 0.7 {ratio} Low 1.1-2.5 [facility] Comment on above: Performed By: #### C BC, GFR, PRO, PBNP, MORPH, CMP, DIFF, APTT, MDW, DIMER ####[address] [place] [phone] ALP [Catalytic activity/Vol] 271 U/L High 40-135 [facility] Comment on above: Performed By: #### C BC, GFR, PRO, PBNP, MORPH, CMP, DIFF, APTT, MDW, DIMER ####[place] [address] [place], [place] [address] ALT [Catalytic activity/Vol] 32 U/L Normal 16-63 [facility] Comment on above: Performed By: #### C BC, GFR, PRO, PBNP, MORPH, CMP, DIFF, APTT, MDW, DIMER ####[address] [place], [place] [address] AST [Catalytic activity/Vol] 66 U/L High 10-40 [facility] Comment on above: Performed By: #### C BC, GFR, PRO, PBNP, MORPH, CMP, DIFF, APTT, MDW, DIMER ####[place] [place], [place] [address] Bili Total 1.6 mg/dL High 0.2-1.0 [facility] Comment on above: Result Comment: Use of this assay is not recommended for patients undergoing treatment with eltrombopag due to the potential for falsely elevated results. Performed By: #### C BC, GFR, PRO, PBNP, MORPH, CMP, DIFF, APTT, MDW, DIMER ####[place] [place], [place] [address] BUN/Creatinine Ratio 11 ratio Normal 7-27 [facility] Comment on above: Performed By: #### C BC, GFR, PRO, PBNP, MORPH, CMP, DIFF, APTT, MDW, DIMER ####[place] [address] [place], [place] [address] Calcium [Mass/Vol] 8.7 mg/dL Normal 8.4-10.2 [facility] Comment on above: Performed By: #### C BC, GFR, PRO, PBNP, MORPH, CMP, DIFF, APTT, MDW, DIMER ####[place] [place], [place] [address] Chloride [Moles/Vol] 106 mmol/L Normal 98-107 [facility] Comment on above: Performed By: #### C BC, GFR, PRO, PBNP, MORPH, CMP, DIFF, APTT, MDW, DIMER ####[address] [address] CO2 [Moles/Vol] 31 mmol/L High 22-29 [facility] Comment on above: Performed By: #### C BC, GFR, PRO, PBNP, MORPH, CMP, DIFF, APTT, MDW, DIMER ####[place] [address] [place], [place] [address] Creatinine [Mass/Vol] 1.22 mg/dL Normal 0.70-1.30 [facility] Comment on above: Result Comment: Test ing performed on [email or web address] Dimension EXL analyzer using a modified kinetic Nathan technique. Performed By: #### C BC, GFR, PRO, PBNP, MORPH, CMP, DIFF, APTT, MDW, DIMER ####[place] [place], [place] [address] Electrolyte Balance 5.0 mEq/L Normal 4.0-15.0 [facility] Comment on above: Performed By: #### C BC, GFR, PRO, PBNP, MORPH, CMP, DIFF, APTT, MDW, DIMER ####[address] [address] Globulin 3.5 G/dL Normal [facility] Comment on above: Performed By: #### C BC, GFR, PRO, PBNP, MORPH, CMP, DIFF, APTT, MDW, DIMER ####[place] [place], [place] [address] Glucose [Mass/Vol] 171 mg/dL High 70-105 [facility] Comment on above: Performed By: #### C BC, GFR, PRO, PBNP, MORPH, CMP, DIFF, APTT, MDW, DIMER ####[place] [address] [place], [place] [address] Potassium [Moles/Vol] 4.0 mmol/L Normal 3.5-5.1 [facility] Comment on above: Performed By: #### C BC, GFR, PRO, PBNP, MORPH, CMP, DIFF, APTT, MDW, DIMER ####[address] [address] Sodium [Moles/Vol] 142 mmol/L Normal 136-145 [facility] Comment on above: Performed By: #### C BC, GFR, PRO, PBNP, MORPH, CMP, DIFF, APTT, MDW, DIMER ####[facility] [place], [place] [address] Total Protein 6.0 G/dL Low 6.4-8.2 [facility] Comment on above: Performed By: #### C BC, GFR, PRO, PBNP, MORPH, CMP, DIFF, APTT, MDW, DIMER ####[place] [address] [place], [place] [address] Urea nitrogen [Mass/Vol] 14 mg/dL Normal 7-18 [facility] Comment on above: Performed By: #### C BC, GFR, PRO, PBNP, MORPH, CMP, DIFF, APTT, MDW, DIMER ####[place] [address] [place], [place] [address] DIMERon 07-13-2024 D-Dimer <200 Normal 0-230 [facility] Comment on above: Result Comment: DDN: Results reported in D-DU ng/mL. Negative for D-dimer. DVT/PE is highly unlikely. Note: False negative results may be seen in patients on anticoagulant therapy. The result of the D-Dimer test should be evaluated in the context of all the clinical and laboratory data available. In those instances where the laboratory result does not agree with the clinical evaluation, additional tests should be performed accordingly. If the D-Dimer result is used to exclude DVT or PE, the recommended cutoff value is less than 230 ng/mL. The D-Dimer result should not be used alone to rule in DVT/PE, but should be used in conjunction with a clinical pretest probability (PTP)assessment model to exclude venous thromboembolism (VTE) in outpatients suspected of deep venous thrombosis (DVT) and pulmonary embolism (PE). Performed By: #### C BC, GFR, PRO, PBNP, MORPH, CMP, DIFF, APTT, MDW, DIMER ####[place] [address] [place], [place] [address] LABORATORYOrdered By: SYSTEM SYSTEM on 07-13-2024 Albumin BCP dye [Mass/Vol] 2.5 G/dL Low 3.5 - 5.0 G/dL AO ADM SS Albumin/Globulin [Mass ratio] 0.7 {ratio} Low 1.1 - 2.5 ratio AO ADM SS ALP [Catalytic activity/Vol] 271 U/L High 40 - 135 U/L AO ADM SS ALT With P-5'-P [Catalytic activity/Vol] 32 U/L Normal 16 - 63 U/L AO ADM SS aPTT Coag (PPP) [Time] 39.7 s High 25.0 - 35.0 seconds AO [facility] SS Comment on above: Interpretive Data: F or Heparin anticoagulation therapy, the recommended therapeutic range is: 45.4-75.9 seconds. Patients on heparin therapy may have an extreme result. AST With P-5'-P [Catalytic activity/Vol] 66 U/L High 10 - 40 U/L AO ADM SS Basophil %, Manual 0.0 % Normal 0.0 - 2.5 % AO Wo rkflow SS Basophils (Bld) [#/Vol] 0.0 103/mcL Normal 0.0 - 0.2 10^3/mcL AO Workflow SS Bilirubin [Mass/Vol] 1.6 mg/dL High 0.2 - 1 .0 mg/dL AO ADM SS Comment on above: Interpretive Data: U se of this assay is not recommended for patients undergoing treatment with eltrombopag due to the potential for falsely elevated results. Calcium [Mass/Vol] 8.7 mg/dL Normal 8.4 - 10. 2 mg/dL AO ADM SS Chloride [Moles/Vol] 106 mmol/L Normal 98 - 10 7 mmol/L AO ADM SS CO2 [Moles/Vol] 31 mmol/L High 22 - 29 mmol/L AO ADM SS Creatinine [Mass/Vol] 1.22 mg/dL Normal 0.70 - 1.30 mg/dL AO ADM SS Comment on above: Interpretive Data: T esting performed on Siemens Dimension EXL analyzer using a modified kinetic Nathan technique. Electrolyte Balance 5.0 mEq/L Normal 4.0 - 15 .0 mEq/L AO ADM SS Eosinophil %, Manual 3.0 % Normal 0.0 - 7.0 % AO Workflow SS Eosinophils (Bld) [#/Vol] 0.1 103/mcL Normal 0.0 - 0.7 10^3/mcL AO Workflow SS Erythrocyte distribution width (RBC) [Ratio] 12.9 % Normal 11.5 - 15.5 % AO Workflow SS Fibrin D-dimer DDU (PPP) [Mass/Vol] ng/mL D-DU Normal 0 - 230 ng/mL D-DU AO [facility] SS Comment on above: Result Comment: DDN: Results reported in D-DU ng/mL. Negative for D-dimer. DVT/PE is highly unlikely. Note: False negative results may be seen in patients on anticoagulant therapy. Interpretive Data: T he result of the D-Dimer test should be evaluated in the context of all the clinical and laboratory data available. In those instances where the laboratory result does not agree with the clinical evaluation, additional tests should be performed accordingly. If the D-Dimer result is used to exclude DVT or PE, the recommended cutoff value is less than 230 ng/mL. The D-Dimer result should not be used alone to rule in DVT/PE, but should be used in conjunction with a clinical pretest probability (PTP)assessment model to exclude venous thromboembolism (VTE) in outpatients suspected of deep venous thrombosis (DVT) and pulmonary embolism (PE). GFR/1.73 sq M.predicted among blacks MDRD (S/P/Bld) [Vol rate/Area] 76 ml/min/1.73sqm Invalid Interpretation Code AO Chemistry S Comment on above: Interpretive Data: GFR Population mean for , Non- Americans Ages 20-29 = 116 mL/min/1.73 sq.m. Ages 30-39 = 107 mL/min/1.73 sq.m. Ages 40-49 = 99 mL/min/1.73 sq.m. Ages 50-59 = 93 mL/min/1.73 sq.m. Ages 60-69 = 85 mL/min/1.73 sq.m. Ages 70+ = 75 mL/min/1.73 sq.m. Chronic Kidney Disease: Less than 60 mL/min/1.73 square meters End Stage Renal Disease: Less than 15 mL/min/1.73 square meters GFR/1.73 sq M.predicted among non-blacks MDRD (S/P/Bld) [Vol rate/Area] 63 ml/min/1.73sqm Invalid Interpretation Code AO Chemistry S Comment on above: Interpretive Data: GFR Population mean for , Non- Americans Ages 20-29 = 116 mL/min/1.73 sq.m. Ages 30-39 = 107 mL/min/1.73 sq.m. Ages 40-49 = 99 mL/min/1.73 sq.m. Ages 50-59 = 93 mL/min/1.73 sq.m. Ages 60-69 = 85 mL/min/1.73 sq.m. Ages 70+ = 75 mL/min/1.73 sq.m. Chronic Kidney Disease: Less than 60 mL/min/1.73 square meters End Stage Renal Disease: Less than 15 mL/min/1.73 square meters Globulin 3.5 G/dL Invalid Interpretation Code AO ADM SS Glucose [Mass/Vol] 171 mg/dL High 70 - 105 mg/dL AO ADM SS Hematocrit (Bld) [Volume fraction] 31.9 % Low 40.0 - 52.0 % AO Workflow SS Hemoglobin (Bld) [Mass/Vol] 11.2 G/dL Low 13.0 - 17.5 G/dL AO Workflow SS INR Coag (PPP) [Relative time] 1.4 {INR} Invalid Interpretation Code AO [facility] SS Comment on above: Interpretive Data: Teo damon [employer] (CHEST, 1992, 102:312S-25S) recommended therapeutic range for oral anticoagulant therapy is: LOW RISK: Prophylaxis of venous thrombosis INR: 2.0-3.0 Treatment of pulmonary embolism 2.0-3.0 Prevention of systemic embolism 2.0-3.0 HIGH RISK: Mechanical prosthetic valves 2.5-3.5 Lymphocytes (Bld) [#/Vol] 1.0 103/mcL Normal 0.9 - 4.3 10^3/mcL AO Workflow SS Lymphocytes/100 WBC (Bld) 23.0 % Normal 20.0 - 40.0 % AO Workflow SS MCH (RBC) [Entitic mass] 38.5 pg High 27.0 - 33.0 pg AO Workflow SS MCHC 35.4 G/dL Normal 32.0 - 36.0 G/dL AO Workflow SS MCV (RBC) [Entitic vol] 109.0 fL High 81.0 - 100.0 fL AO Workflow SS Monocytes (Bld) [#/Vol] 0.5 103/mcL Normal 0.1 - 1.4 10^3/mcL AO Workflow SS Monocytes/100 WBC (Bld) 11.0 % Normal 2.0 - 13.0 % AO Workflow SS Natriuretic peptide.B prohormone N-Terminal [Mass/Vol] 75 pg/mL Normal 0 - 125 pg/mL AO ADM SS Comment on above: Interpretive Data: N T-proBNP results of less than 300 pg/mL effectively rules out acute congestive heart failure with 99% negative predictive value. Neutrophils (Bld) [#/Vol] 2.7 103/mcL Normal 2.3 - 8.1 10^3/mcL AO Workflow SS Neutrophils/100 WBC (Bld) 63.0 % Normal 50.0 - 75.0 % AO Workflow SS Nucleated RBC 0.0 /100 WBC Invalid Interpretation Code AO Workflow SS Platelet mean volume (Bld) [Entitic vol] 7.2 fL Normal 6.4 - 10.5 fL AO Workflow SS Platelets (Bld) [#/Vol] 68 103/mcL Low 150 - 450 10^3/mcL AO Workflow SS Platelets LM Ql (Bld) Decreased *NA* (07/13/24 1:37 AM) Invalid Interpretation Code AO Workflow SS Potassium [Moles/Vol] 4.0 mmol/L Normal 3.5 - 5.1 mmol/L AO ADM SS Protein [Mass/Vol] 6.0 G/dL Low 6.4 - 8.2 G/dL AO ADM SS PT Coag (PPP) [Time] 16.4 s High 9.0 - 1 4.4 seconds AO [facility] SS RBC (Bld) [#/Vol] 2.93 106/mcL Low 4.50 - 6.0 0 10^6/mcL AO Workflow SS Sodium [Moles/Vol] 142 mmol/L Normal 136 - 145 mmol/L AO ADM SS Urea nitrogen [Mass/Vol] 14 mg/dL Normal 7 - 18 mg/dL AO ADM SS Urea nitrogen/Creatinine [Mass ratio] 11 ratio Normal 7 - 27 ratio AO ADM SS WBC (Bld) [#/Vol] 4.2 103/mcL Low 4.5 - 10.8 10^3/mcL AO Workflow SS LABORATORYOrdered By: Michell Olivier on 07-13-2024 Monocyte distribution width Auto (Bld) [Entitic vol] Not tested 1 (07/13/24 1:37 AM) Normal 0.00 - 20.00 AO Hematology S Comment on above: Result Comment: MDW testing unable to be performed on [id number] instrumentation. PBNPon 07-13-2024 Natriuretic peptide B (Bld) [Mass/Vol] 75 pg/mL Normal 0-125 [facility] Comment on above: Result Comment: NT-p roBNP results of less than 300 pg/mL effectively rules out acute congestive heart failure with 99% negative predictive value. Performed By: #### C BC, GFR, PRO, PBNP, MORPH, CMP, DIFF, APTT, MDW, DIMER ####[facility] [place], [place] [address] PROon 07-13-2024 PT Coag (PPP) [Time] 16.4 s High 9.0-14.4 [facility] Comment on above: Performed By: #### C BC, GFR, PRO, PBNP, MORPH, CMP, DIFF, APTT, MDW, DIMER ####[facility] [place], [place] [address] PT International Ratio 1.4 Normal [facility] Comment on above: Result Comment: [employer] (CHEST, 1992, 102:312S-25S) recommended therapeutic range for oral anticoagulant therapy is: LOW RISK: Prophylaxis of venous thrombosis INR: 2.0-3.0 Treatment of pulmonary embolism 2.0-3.0 Prevention of systemic embolism 2.0-3.0 HIGH RISK: Mechanical prosthetic valves 2.5-3.5 Performed By: #### C BC, GFR, PRO, PBNP, MORPH, CMP, DIFF, APTT, MDW, DIMER ####[facility] [place], [place] [address] AMMONIAon 05-20-2024 Ammonia (P) [Moles/Vol] 35.0 umol/L High 11.0 - 32.0 [facility] Comment on above: Performed By: #### 2 [id number] #### [facility],[address] [place] [address] POTASSIUMon 05-03-2024 Potassium [Moles/Vol] 3.7 mmol/L Normal 3.5 - 5.1 [facility] Comment on above: Performed By: #### 2 [id number] #### [facility],[address] [place] [address] AMMONIAon 04-17-2024 Ammonia (P) [Moles/Vol] 58.0 umol/L High 11.0 - 32.0 [facility] Comment on above: Performed By: #### 2 [address] #### [facility],[address] [place] [address] CBC + DIFFon 04-17-2024 Baso # 0.00 x10EE3/UL Normal 0.00 - 0.10 [facility] Comment on above: Performed By: #### 2 [address] #### [place] [address] Basophils/100 WBC (Bld) 0.1 % Normal 0.0 - 2.0 [facility] Comment on above: Performed By: #### 2 [address] #### [place] [address] CBC + DIFF Normal [facility] Comment on above: Result Comment: CBC- COMPLETE BLOOD COUNT Performed By: #### 2 [address] #### [place] [address] EO # 0.14 x10EE3/UL Normal 0.00 - 0.50 [facility] Comment on above: Performed By: #### 2 [address] #### [place] [address] Eosinophils/100 WBC (Bld) 3.2 % Normal 0.0 - 7.0 [facility] Comment on above: Performed By: #### 2 [address] #### [place] [address] Erythrocyte distribution width (RBC) [Ratio] 14.7 % Normal 12.0 - 15.6 [facility] Comment on above: Performed By: #### 2 [address] #### [address] [address] Hematocrit (Bld) [Volume fraction] 35.5 % Low 40.0 - 52.0 [facility] Comment on above: Performed By: #### 2 [address] #### [facility],[address] [place] [address] Hemoglobin (Bld) [Mass/Vol] 12.0 g/dL Low 13.0 - 17.5 [facility] Comment on above: Performed By: #### [id number] #### [facility],[address] [place] [address] Lymph # 0.92 [id number] Normal 0.80 - 2.80 [facility] Comment on above: Performed By: #### [id number] #### [facility],[address] [place] [address] Lymphocytes/100 WBC (Bld) 21.0 % Normal 20.0 - 45.0 [facility] Comment on above: Performed By: #### [id number] #### [facility],[address] [place] [address] Macrocytes Ql (Bld) 1+ Normal [facility] Comment on above: Performed By: #### [id number] #### [facility],[address] [place] [address] MANUAL DIFF N/A Normal [facility] Comment on above: Performed By: #### 2 69277 #### [facility],[address] [place], [place] [id number] MCH (RBC) [Entitic mass] 36 pg High 27 - 33 [facility] Comment on above: Performed By: #### 2 98711 #### [facility],[address] [place] [address] MCHC 34 X10 3 Normal 32 - 36 [facility] Comment on above: Performed By: #### 2 43142 #### [facility],[address] [place], [place] [id number] MCV (RBC) [Entitic vol] 107 fL High 81 - 98 [facility] Comment on above: Performed By: #### 2 85090 #### [facility],[address] [place] [address] [place] # 0.27 x10EE3/UL Normal 0.20 - 1.00 [facility] Comment on above: Performed By: #### 2 82078 #### [place] [address] MONOS % 6.1 % Normal 0.0 - 10.0 [facility] Comment on above: Performed By: #### 2 85641 #### [place] [address] Morphology Portillo (Bld) [Interp] SEE BELOW Normal [facility] Comment on above: Performed By: #### 2 72487 #### [place] [address] Neut # 3.06 x10EE3/UL Normal 1.50 - 7.10 [facility] Comment on above: Performed By: #### 2 54281 #### [place] [address] Neutrophils/100 WBC (Bld) 69.6 % Normal 46.0 - 76.0 [facility] Comment on above: Performed By: #### 2 16587 #### [place] [address] PLATELET 65 x10EE3/UL Low 150 - 450 [facility] Comment on above: Performed By: #### 2 45957 #### [place] [address] Platelet mean volume (Bld) [Entitic vol] 7.9 fL Normal 6.4 - 10.5 [facility] Comment on above: Result Comment: AUTO MATED DIFFERENTIAL Performed By: #### 2 82693 #### [place] [address],[place] [address] PLT EST DECREASED Normal [facility] Comment on above: Performed By: #### 2 49671 #### [facility],[address] [place] [address] 39960 RBC 3.31 x 10EE6/UL Low 4.50 - 6.00 [facility] Comment on above: Performed By: #### 2 78618 #### [facility],[address] [place] [address] 88112 WBC 4.4 x 10EE3/UL Low 4.5 - 10.8 [facility] Comment on above: Performed By: #### 2 67315 #### [facility],[address] [place] [address] 19875 CMP with eGFRon 04-17-2024 AGE 49 years Normal [facility] Comment on above: Performed By: #### 2 96590 #### [facility],[address] [place] [address] 39964 Albumin [Mass/Vol] 2.7 g/dL Low 3.4 - 5.0 [facility] Comment on above: Performed By: #### 2 58186 #### [facility],[address] [place] [address] 12204 Albumin/Globulin [Mass ratio] 0.7 {ratio} Low 0.9 - 1.6 [facility] Comment on above: Performed By: #### 2 41676 #### [facility],[address] [place] [address] 72207 ALK PHOS 235 U/L High 46 - 116 [facility] Comment on above: Performed By: #### 2 59506 #### [facility],[address] [place] [address] 55238 ALT [Catalytic activity/Vol] 30 U/L Normal 16 - 63 [facility] Comment on above: Performed By: #### 2 37549 #### [facility],[address] [place] [address] 67705 Anion gap [Moles/Vol] 12 mmol/L Normal 10 - 20 [facility] Comment on above: Performed By: #### 2 09104 #### [facility],[address] [place] [address] 22372 AST [Catalytic activity/Vol] 73 U/L High 15 - 37 [facility] Comment on above: Performed By: #### 2 19506 #### [facility],[address] [place] [address] 56162 B/C RATIO 7 ratio Normal 0 - 30 [facility] Comment on above: Performed By: #### 2 43648 #### [facility],[address] [place] [address] 88190 Bilirubin [Mass/Vol] 2.3 mg/dL High 0.2 - 1.0 [facility] Comment on above: Performed By: #### 2 24589 #### [facility],[address] [place] [address] 37791 Calcium [Mass/Vol] 7.8 mg/dL Low 8.5 - 10.1 [facility] Comment on above: Performed By: #### 2 17976 #### [facility],[address] [place] [address] 60636 Chloride [Moles/Vol] 100 mmol/L Normal 98 - 107 [facility] Comment on above: Performed By: #### 2 59953 #### [facility],[address] [place] [address] 92615 CMP with eGFR Normal [facility] Comment on above: Result Comment: COMP REHENSIVE METABOLIC PANEL Performed By: #### 2 44065 #### [facility],[address] [place] [address] 79348 CO2 [Moles/Vol] 28.4 mmol/L Normal 21.0 - 32.0 [facility] Comment on above: Performed By: #### 2 59531 #### [facility],[address] [place] [address] 76348 Creatinine [Mass/Vol] 1.18 mg/dL Normal 0.70 - 1.30 [facility] Comment on above: Performed By: #### 2 53509 #### [facility],[address] [place] [address] 73969 GFR/1.73 sq M.predicted among non-blacks MDRD (S/P/Bld) [Vol rate/Area] mL/min/{1.73_m2} Normal 60 - 999 [facility] Comment on above: Performed By: #### 2 85709 #### [facility],[address] [place] [address] Result Comment: ACCO RDING TO THE NATIONAL KIDNEY DISEASE EDUCATION PROGRAM(NKDE), A NORMAL eGFR IS A VALUE GREATER THAN OR EQUAL TO 60 ML/MIN/1.73 SQ METERS. CHRONIC KIDNEY DISEASE: <60mL/MIN/1.73 SQ METERS KIDNEY FAILURE: <15mL/MIN/1.73 SQ METERS THIS TEST SHOULD ONLY BE USED FOR PATIENTS 18 YEARS OF AGE AND OLDER. Globulin (S) [Mass/Vol] 4.0 g/dL High 1.5 - 3.8 [facility] Comment on above: Performed By: #### 2 61216 #### [facility],[address] [place] [address] 95077 Glucose [Mass/Vol] 181 mg/dL High 74 - 106 [facility] Comment on above: Performed By: #### 2 34178 #### [facility],[address] [place] [address] 91974 Potassium [Moles/Vol] 3.2 mmol/L Low 3.5 - 5.1 [facility] Comment on above: Performed By: #### 2 49853 #### [facility],[address] [place] [address] 53849 Protein [Mass/Vol] 6.7 g/dL Normal 6.4 - 8.2 [facility] Comment on above: Performed By: #### 2 71763 #### [facility],[address] [place] [address] 24426 Sodium [Moles/Vol] 137 mmol/L Normal 136 - 145 [facility] Comment on above: Performed By: #### 2 37608 #### [facility],[address] [place] [address] 72094 Urea nitrogen [Mass/Vol] 8 mg/dL Normal 7 - 18 [facility] Comment on above: Performed By: #### 2 33435 #### [facility],[address] [place] [address] 26444 HEMOGLOBIN A1C (POM)on 04-17 Glucose [Mass/Vol] 91.1 mg/dL High 0.0 - 0.0 [facility] Comment on above: Result Comment: BLDo HEMOGLOBIN A1C REFERENCE RANGESBLDo Suggested Diagnosis HbA1c(%) HbA1C (mmol/mol Diabetic >/=6.5 >/=48 Prediabetes 5.7 - 6.4 39 - 47 Normal <5.7 <39 Performed By: #### 2 89970 #### [facility],[address] [place] [address] 80229 HbA1c (Bld) [Mass fraction] 4.8 % Normal 0.0 - 6.5 [facility] Comment on above: Performed By: #### 2 99622 #### [facility],[address] [place] [address] 79740 LIPID PROFILEon 04-17-2024 Cholesterol [Mass/Vol] 154 mg/dL Normal 0 - 240 [facility] Comment on above: Performed By: #### 2 22173 #### [facility],[address] [place] [address] 93971 Cholesterol in HDL [Mass/Vol] 79 mg/dL High 40 - 60 [facility] Comment on above: Performed By: #### 2 76528 #### [facility],[address] [place] [address] 53852 Cholesterol in LDL [Mass/Vol] 56 mg/dL Normal 0 - 129 [facility] Comment on above: Performed By: #### 2 41840 #### [facility],[address] [place] [address] 63829 Cholesterol.total/Cho lesterol in HDL [Mass ratio] 1.9 {ratio} Normal 0.0 - 5.0 [facility] Comment on above: Performed By: #### 2 62054 #### [facility],[address] [place] [address] 51951 Lipid 1996 panel Normal [facility] Comment on above: Result Comment: LIPI D PROFILE Performed By: #### 2 76919 #### [facility],[address] [place] [address] 77761 Triglyceride [Mass/Vol] 96 mg/dL Normal 0 - 150 [facility] Comment on above: Performed By: #### 2 88450 #### [facility],[address] [place] [address] 77437 URINE MICROALBUMIN, RANDOMon 04-17-2024 MICROALBUMIN UR 0.5 mg/dL Normal 0.1 - 25.1 [facility] Comment on above: Performed By: #### 2 24988 #### [facility],[address] [place] [address] 14622 US ABD RIGHT UPPER QUADRANTo n 04-09-2024 US ABD RIGHT UPPER QUADRANT * * *Final Report* * * DATE OF EXAM: Apr 09 2024 9:15AM WRU 1032 - US ABD RIGHT UPPER QUADRANT / PROCEDURE REASON: Other cirrhosis of liver (HCC) * * * * Physician Interpretation * * * * EXAMINATION: RIGHT UPPER QUADRANT ULTRASOUND CLINICAL HISTORY: Cirrhosis TECHNIQUE: Sonography of the right upper quadrant was performed. Images were obtained and stored in a permanent archive and interpreted remotely. MQ: URUQ_2 COMPARISON: Correlation made to CT dated 09/19/2019 RESULT: Pancreas: Obscured by bowel gas and therefore cannot be evaluated. Liver: Cirrhotic liver morphology. Hepatofugal directionality of flow within the visualized main portal vein most compatible with portal hypertension. Echotexture: Coarse Echogenicity: Normal Surface contour: Nodular Lesions: None. Biliary: No intrahepatic biliary duct dilation. CBD: 0.4 cm at the hilum. Gallbladder: Normal caliber -Contents: No cholelithiasis -Wall: Normal -Other: No pericholecystic fluid. Right Kidney: Normal cortical echogenicity. No hydronephrosis. Ascites: None. IMPRESSION: 1. Cirrhotic liver morphology. 2. Hepatofugal directionality of flow in the visualized main portal vein most compatible with portal hypertension. 3. Pancreas obscured by bowel gas and therefore not evaluated. [employer]er: [facility] Transcribe Date/Time: Apr 09 2024 10:29A Dictated by : YUDY CAMACHO MD This examination was interpreted and the report reviewed and electronically signed by: YUDY CAMACHO MD on Apr 09 2024 10:30AM EST [id number] Normal [facility] US Abdomen RUQon 04-09-2024 IMPRESSION: 1. Cirrhotic liver morphology. 2. Hepatofugal directionality of flow in the visualized main portal vein most compatible with portal hypertension. 3. Pancreas obscured by bowel gas and therefore not evaluated. [employer] Tuner: [facility] Transcribe Date/Time: Apr 09 2024 10:29A Dictated by : YUDY CAMACHO MD This examination was interpreted and the report reviewed and electronically signed by: YUDY CAAMCHO MD on Apr 09 2024 10:30AM EST DIVISION OF RADIOLOGY * * *Final Report* * * DATE OF EXAM: Apr 09 2024 9:15AM WRU 1032 - US ABD RIGHT UPPER QUADRANT / PROCEDURE REASON: Other cirrhosis of liver (HCC) * * * * Physician Interpretation * * * * EXAMINATION: RIGHT UPPER QUADRANT ULTRASOUND CLINICAL HISTORY: Cirrhosis TECHNIQUE: Sonography of the right upper quadrant was performed. Images were obtained and stored in a permanent archive and interpreted remotely. MQ: URUQ_2 COMPARISON: Correlation made to CT dated 09/19/2019 RESULT: Pancreas: Obscured by bowel gas and therefore cannot be evaluated. Liver: Cirrhotic liver morphology. Hepatofugal directionality of flow within the visualized main portal vein most compatible with portal hypertension. Echotexture: Coarse Echogenicity: Normal Surface contour: Nodular Lesions: None. Biliary: No intrahepatic biliary duct dilation. CBD: 0.4 cm at the hilum. Gallbladder: Normal caliber -Contents: No cholelithiasis -Wall: Normal -Other: No pericholecystic fluid. Right Kidney: Normal cortical echogenicity. No hydronephrosis. Ascites: None. DIVISION OF RADIOLOGY Provider, Tere Hernandez - 04/09/2024 * * *Final Report* * * DATE OF EXAM: Apr 09 2024 9:15AM WRU 1032 - US ABD RIGHT UPPER QUADRANT / PROCEDURE REASON: Other cirrhosis of liver (HCC) * * * * Physician Interpretation * * * * EXAMINATION: RIGHT UPPER QUADRANT ULTRASOUND CLINICAL HISTORY: Cirrhosis TECHNIQUE: Sonography of the right upper quadrant was performed. Images were obtained and stored in a permanent archive and interpreted remotely. MQ: URUQ_2 COMPARISON: Correlation made to CT dated 09/19/2019 RESULT: Pancreas: Obscured by bowel gas and therefore cannot be evaluated. Liver: Cirrhotic liver morphology. Hepatofugal directionality of flow within the visualized main portal vein most compatible with portal hypertension. Echotexture: Coarse Echogenicity: Normal Surface contour: Nodular Lesions: None. Biliary: No intrahepatic biliary duct dilation. CBD: 0.4 cm at the hilum. Gallbladder: Normal caliber -Contents: No cholelithiasis -Wall: Normal -Other: No pericholecystic fluid. Right Kidney: Normal cortical echogenicity. No hydronephrosis. Ascites: None. IMPRESSION IMPRESSION: 1. Cirrhotic liver morphology. 2. Hepatofugal directionality of flow in the visualized main portal vein most compatible with portal hypertension. 3. Pancreas obscured by bowel gas and therefore not evaluated. [employer] Tuner: [facility] Transcribe Date/Time: Apr 09 2024 10:29A Dictated by : YUDY CAMACHO MD This examination was interpreted and the report reviewed and electronically signed by: YUDY CAMACHO MD on Apr 09 2024 10:30AM EST [facility] Radiology Study observation (narrative) [facility] US Abdomen RUQOrdered By: Vani anderson Provider on 04-09-2024 [facility] AMMONIAon 03-20-2024 AMMONIA Normal [facility] Comment on above: Result Comment: SEE SEPARATE REPORT DONE AT [facility] Performed By: #### 2 [id number] #### [facility],[address] [place], [place] [address] AMMONIAon 02-19-2024 Ammonia (P) [Moles/Vol] 33.0 umol/L High 11.0 - 32.0 [facility] Comment on above: Performed By: #### 2 61189 #### [facility],[address] [facility] [address] AFP SerPl-mCncon 01-30-2024 AFP [Mass/Vol] 5.4 ng/mL Normal <11.0 [facility] Comment on above: Order Comment: Speci men Type: BLOOD SPECIMENOrdering Facility: [facility] Address: [address] [place] [address] Result Comment: The Alpha-Fetoprotein test was performed using the Siemens [employer] XP chemiluminometric immunoassay method. Results obtained with different assay methods or kits cannot be used interchangeably. 4.99 The Alpha-Fetoprotein test was performed using the Michelle [employer] DxI immunoenzymatic assay. Results obtained with different assay methods or kits cannot be used interchangeably. Performed By: #### 1 834-1 ####[facility] LABCLIA [id number] [place] [address] [place] CBC panel Auto (Bld)on 01-29 Erythrocyte distribution width (RBC) [Ratio] 17.6 % High 11.5 - 15.0 % [facility] Hematocrit (Bld) [Volume fraction] 34.6 % Low 39.0 - 51.0 % [facility] Hemoglobin (Bld) [Mass/Vol] 11.7 g/dL Low 13.0 - 17.0 g/dL [facility] Interpretation and review of laboratory results Abnormal [facility] MCH (RBC) [Entitic mass] 34.5 pg High 26.0 - 34.0 pg [facility] MCHC (RBC) [Mass/Vol] 33.8 g/dL 30.5 - 36.0 g/dL [facility] MCV (RBC) [Entitic vol] 102.1 fL High 80.0 - 100.0 fL [facility] Nucleated RBC (Bld) [#/Vol] NINF [facility] Platelet mean volume (Bld) [Entitic vol] 10.5 fL 9.0 - 12.7 fL [facility] Platelets (Bld) [#/Vol] 67 10*3/uL Low [facility] Comment on above: No clot detected. RBC (Bld) [#/Vol] 3.39 10*6/uL Low 4.20 - 6.0 0 m/uL [facility] WBC (Bld) [#/Vol] 4.34 10*3/uL [facility] Erythrocyte distribution width (RBC) [Ratio] 17.6 % High 11.5-15.0 [facility] Comment on above: Order Comment: Speci men Type: BLOOD SPECIMENOrdering Facility: [facility] Address: [address] [place] [address] Performed By: #### 5 8410-2 ####[facility] LABIA [id number] [place] [address] [place] Hematocrit (Bld) [Volume fraction] 34.6 % Low 39.0-51.0 [facility] Comment on above: Order Comment: Speci men Type: BLOOD SPECIMENOrdering Facility: [facility] Address: [address] [place] [address] Performed By: #### 5 8410-2 ####[facility] LABIA [id number] [place] [address] [place] Hemoglobin (Bld) [Mass/Vol] 11.7 g/dL Low 13.0-17.0 [facility] Comment on above: Order Comment: Speci men Type: BLOOD SPECIMENOrdering Facility: [facility] Address: [address] [place] [address] Performed By: #### 5 8410-2 ####[facility] LABIA [id number] [place] [address] [place] MCH (RBC) [Entitic mass] 34.5 pg High 26.0-34.0 [facility] Comment on above: Order Comment: Speci men Type: BLOOD SPECIMENOrdering Facility: [facility] Address: [address] [place] [address] Performed By: #### 5 8410-2 ####[facility] LABIA [id number] [place] [address] [place] MCHC (RBC) [Mass/Vol] 33.8 g/dL Normal 30.5-36.0 [facility] Comment on above: Order Comment: Speci men Type: BLOOD SPECIMENOrdering Facility: [facility] Address: [address] [place] [address] Performed By: #### 5 8410-2 ####[facility] LABIA [id number] [place] [address] [place] MCV (RBC) [Entitic vol] 102.1 fL High 80.0-100.0 [facility] Comment on above: Order Comment: Speci men Type: BLOOD SPECIMENOrdering Facility: [facility] Address: [address] [place] [address] Performed By: #### 5 8410-2 ####[facility]ITAL[facility] [id number] [place] [address] [place] Nucleated RBC (Bld) [#/Vol] 10*3/uL Normal <0.01 [facility] Comment on above: Order Comment: Speci men Type: BLOOD SPECIMENOrdering Facility: [facility] Address: [address] [place] [address] Performed By: #### 5 8410-2 ####[facility] LABIA [id number] [place] [address] [place] Platelet mean volume (Bld) [Entitic vol] 10.5 fL Normal 9.0-12.7 [facility] Comment on above: Order Comment: Speci men Type: BLOOD SPECIMENOrdering Facility: [facility] Address: [address] [place] [address] Performed By: #### 5 8410-2 ####[facility] LABIA [id number] [place] [address] [place] Platelets (Bld) [#/Vol] 67 10*3/uL Low 150-400 [facility] Comment on above: Order Comment: Speci men Type: BLOOD SPECIMENOrdering Facility: [facility] Address: [address] [place] [address] Result Comment: No c lot detected. Performed By: #### 5 8410-2 ####[facility] LABIA [id number] [place] [address] [place] RBC (Bld) [#/Vol] 3.39 10*6/uL Low 4.20-6.00 [facility] Comment on above: Order Comment: Speci men Type: BLOOD SPECIMENOrdering Facility: [facility] Address: [address] [place] [address] Performed By: #### 5 8410-2 ####[facility] [id number] [place] [address] [place] WBC (Bld) [#/Vol] 4.34 10*3/uL Normal 3.70-11.00 [facility] Comment on above: Order Comment: Speci men Type: BLOOD SPECIMENOrdering Facility: [facility] Address: [address] [place] [address] Performed By: #### 5 8410-2 ####[facility] [id number] [place] [address] [place] CNOVon 01-30-2024 CNOV Office Visit (GASTA5 ) -------- ALEX ROJO ([id number]) 1975 M CHT Date Time Provider Department 01/30/24 2:30 PM BARRINGTON TRAORE GASTA5 During your visit today, we recorded the following information about you: Temperature Pulse Blood pressure Weight 98.1 degrees 73/minute 134/87 82.2 kg Height 1.753 m Barrington Traore MD 01/30/2024 3:30 PM Signed DEPARTMENT OF GASTROENTEROLOGY AND HEPATOLOGY - FOLLOW UP VISIT HISTORY OF PRESENT ILLNESS Alex Rojo is a 48 year old male who presents today for follow up of alcoholic liver disease. Last clinic visit: Aug 2023 Assessment/Plan from prior visit: Mr. Rojo is a 48 year old year old male who presents with history of decompensated liver cirrhosis. 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 Based on the history, his liver function may have well improved (ETOH cessation) to the point that he may not need to be re-listed for OLT at the present time. Will get liver imaging and blood tests and see him in follow up and to continue assessment of his need for transplantation. Plan is to follow up in three months. Since the last visit: No new medical issues Current Outpatient Medications Medication Sig Dispense Refill QUEtiapine (SEROQUEL) 50 mg tablet Take 100 mg by mouth daily at bedtime. melatonin 1 mg chew Take 1 tablet by mouth daily at bedtime. ARIPiprazole (ABILIFY) 2 mg tablet Take 5 mg by mouth once daily. 5 mg thiamine (VITAMIN B1) 100 mg tablet Take 200 mg by mouth twice daily. folic acid 1 mg tablet Take 1 mg by mouth once daily. lactulose (DUPHALAC, CONSTULOSE) 20 gram/30 mL solution Take 60 mL by mouth four times daily. furosemide (LASIX) 40 mg tablet Take 40 mg by mouth once daily. rifAXIMin (XIFAXAN) 550 mg tablet Take 550 mg by mouth twice daily. spironolactone (ALDACTONE) 50 mg tablet Take 25 mg by mouth once daily. sertraline (ZOLOFT) 50 mg tablet Take 200 mg by mouth once daily. hydrOXYzine pamoate (VISTARIL) 50 mg capsule Ones a day (Patient not taking: Reported on 01/30/2024) promethazine (PHENERGAN) 25 mg tablet (Patient not taking: Reported on 01/30/2024) nadolol (CORGARD) 20 mg tablet (Patient not taking: Reported on 01/30/2024) cyanocobalamin, vitamin B-12, 1,000 mcg cap Take 1,000 mcg by mouth once daily. (Patient not taking: Reported on 08/29/2023) pantoprazole (PROTONIX) 40 mg tablet Take 40 mg by mouth once daily. (Patient not taking: Reported on 01/30/2024) traZODone (DESYREL) 50 mg tablet Take 50 mg by mouth daily at bedtime. May take 1/2 to 1 tablet nightly as needed. (Patient not taking: Reported on 01/30/2024) doxepin capsule 10 mg Take 10 mg by mouth daily at bedtime. (Patient not taking: Reported on 01/30/2024) No current facility-administered medications for this visit. ALLERGIES Allergen Reactions Pioglitazone Unknown PAST MEDICAL HISTORY No past medical history on file. PHYSICAL EXAMINATION BP 134/87[Pt denies h/a, nausea, dizziness. No distress noted. Dr notified.[ Pulse 73 Temp (Src) 98.1 (Temporal) Ht 5' 9 (1.75m) Wt 181 lb 3.5 oz (82.2kg) SpO2 98% BMI 26.75 kg/(m2). General Appearance: Well appearing, alert, in no acute distress, well-hydrated, well nourished. Eyes: PERRLA, conjunctiva and sclera normal Oropharynx: Lips, tongue, and oral mucosa normal. Lungs:breath sounds clear to auscultation bilaterally, no crackles, rhonchi, or wheezes Heart: regular rate and rhythm, no murmurs or gallops. Abdomen: not distended, normal bowel sounds, soft and depressible, no guarding or rebound, no palpable mass, no organomegaly Extremities: no cyanosis or edema Skin: no jaundice, no spider angiomas, no palmar erythema Neuro:alert, oriented x 3, pleasant and in no acute distress LABS Latest Ref Rng AND Units 12/05/2022 09/17/2022 09/16/2022 CBC WBC 3.70 - 11.00 k/uL 4.32 8.95 6.42 RBC 4.20 - 6.00 m/uL 3.07 2.73 2.87 Hemoglobin 13.0 - 17.0 g/dL 10.4 10.3 10.7 Hematocrit 39.0 - 51.0 % 32.1 31.0 30.9 MCV 80.0 - 100.0 fL 104.6 113.6 107.7 MCH 26.0 - 34.0 pg 33.9 37.7 37.3 MCHC 30.5 - 36.0 g/dL 32.4 33.2 34.6 RDW-CV 11.5 - 15.0 % 17.3 14.8 14.2 Platelet Count 150 - 400 k/uL 75 91 100 MPV 9.0 - 12.7 fL 10.0 10.4 9.8 Latest Ref Rng AND Units 12/05/2022 09/17/2022 09/16/2022 CMP Sodium 136 - 144 mmol/L 140 139 136 Potassium 3.7 - 5.1 mmol/L 4.2 4.7 4.6 Chloride 97 - 105 mmol/L 109 106 105 CO2 22 - 30 mmol/L 22 21 24 Glucose 74 - 99 mg/dL 105 177 162 BUN 9 - 24 mg/dL 12 28 18 Creatinine 0.73 - 1.22 mg/dL 0.72 0.89 0.68 EGFR >=60 mL/min/1.73m? 113 106 115 Protein, Total 6.3 - 8.0 g/dL 5.7 Albumin 3.9 - 4.9 g/dL 2.8 Calcium 8.5 - 10.2 mg/dL 8.5 8.1 8.4 Bilirubin, Total 0.2 - 1.3 mg/dL 2.7 AST 14 - 40 U/L 55 ALT 10 - 54 U/L 22 Alkaline Phosphatase 38 - 113 U/L 258 CT (September 2023): Cirrhotic liver morphology with multi (more content not included)... Normal [facility] Comprehensive metabolic 2000 panelon 01-30-2024 Albumin [Mass/Vol] 3.4 g/dL Low 3.9-4.9 [facility] Comment on above: Order Comment: Speci men Type: BLOOD SPECIMENOrdering Facility: [facility] Address: [address] [place] [address] Performed By: #### 2 4323-8 ####[facility] LABCLIA [id number] [facility] [id number] [address] [place] ALP [Catalytic activity/Vol] 251 U/L High 38-113 [facility] Comment on above: Order Comment: Speci men Type: BLOOD SPECIMENOrdering Facility: [facility] Address: [address] [place] [address] Performed By: #### 2 4323-8 ####[facility] LABCLIA [id number] [place] [address] [place] ALT [Catalytic activity/Vol] 28 U/L Normal 10-54 [facility] Comment on above: Order Comment: Speci men Type: BLOOD SPECIMENOrdering Facility: [facility] Address: [address] [place] [address] Performed By: #### 2 4323-8 ####[facility] LABCLIA [id number] [place] [address] [place] Anion gap [Moles/Vol] 11 mmol/L Normal 8-15 [facility] Comment on above: Order Comment: Speci men Type: BLOOD SPECIMENOrdering Facility: [facility] Address: [address] [place] [address] Performed By: #### 2 4323-8 ####[facility] LABCLIA [id number] [place] [address] [place] AST [Catalytic activity/Vol] 67 U/L High 14-40 [facility] Comment on above: Order Comment: Speci men Type: BLOOD SPECIMENOrdering Facility: [facility] Address: [address] [place] [address] Performed By: #### 2 4323-8 ####[facility] LABCLIA [id number] [place] [address] [place] Bilirubin [Mass/Vol] 2.3 mg/dL High 0.2-1.3 [facility] Comment on above: Order Comment: Speci men Type: BLOOD SPECIMENOrdering Facility: [facility] Address: [address] [place] [address] Performed By: #### 2 4323-8 ####[facility] LABCLIA [id number] [facility] [address] [address] [place] Calcium [Mass/Vol] 8.7 mg/dL Normal 8.5-10.2 [facility] Comment on above: Order Comment: Speci men Type: BLOOD SPECIMENOrdering Facility: [facility] Address: [address] [place] [address] Performed By: #### 2 4323-8 ####[facility] LABCLIA [id number] [place] [address] [place] Chloride [Moles/Vol] 104 mmol/L Normal 98-107 [facility] Comment on above: Order Comment: Speci men Type: BLOOD SPECIMENOrdering Facility: [facility] Address: [address] [place] [address] Performed By: #### 2 4323-8 ####[facility] LABCLIA [id number] [place] [address] [place] CO2 [Moles/Vol] 24 mmol/L Normal 22-30 [facility] Comment on above: Order Comment: Speci men Type: BLOOD SPECIMENOrdering Facility: [facility] Address: [address] [place] [address] Performed By: #### 2 4323-8 ####[facility] LABCLIA [id number] [place] [address] [place] Creatinine [Mass/Vol] 0.77 mg/dL Normal 0.73-1.22 [facility] Comment on above: Order Comment: Speci men Type: BLOOD SPECIMENOrdering Facility: [facility] Address: [address] [place] [address] Performed By: #### 2 4323-8 ####[facility] LABCLIA [id number] [place] [address] [place] Creatinine and Glomerular filtration rate.predicted panel (S/P/Bld) 110 mL/min/1.73m??? Normal >=60 [facility] Comment on above: Order Comment: Katherine kim Type: BLOOD SPECIMENOrdering Facility: [facility] Address: [address] [place] [address] Result Comment: Rabia mated Glomerular Filtration Rate (eGFR) is calculated using the 2020 CKD-EPI creatinine equation. This equation utilizes serum creatinine, sex, and age as parameters. The creatinine assay has traceable calibration to isotope dilution-mass spectrometry. Refer to KDIGO guidelines for clinical interpretation. In patients with unstable renal function, e.g. those with acute kidney injury, the eGFR may not accurately reflect actual GFR. Performed By: #### 2 4323-8 ####[facility] LABIA [id number] [place] [address] [place] Glucose [Mass/Vol] 121 mg/dL High 74-99 [facility] Comment on above: Order Comment: Katherine kim Type: BLOOD SPECIMENOrdering Facility: [facility] Address: [address] [place] [address] Result Comment: The [place] [employer] (ADA) provides guidance for cutoff values for fasting glucose and random glucose. The ADA defines fasting as no caloric intake for at least 8 hours. Fasting plasma glucose results between 100 to 125 mg/dL indicate increased risk for diabetes (prediabetes). Fasting plasma glucose results greater than or equal to 126 mg/dL meet the criteria for diagnosis of diabetes. In the absence of unequivocal hyperglycemia, results should be confirmed by repeat testing. In a patient with classic symptoms of hyperglycemia or hyperglycemic crisis, random plasma glucose results greater than or equal to 200 mg/dL meet the criteria for diagnosis of diabetes. Reference: Standards of Medical Care in Diabetes 2016, [place] [employer]. Diabetes Care. 2016.39(Suppl 1). Performed By: #### 2 4323-8 ####[facility] [id number] [place] [address] [place] Potassium [Moles/Vol] 3.5 mmol/L Low 3.7-5.1 [facility] Comment on above: Order Comment: Katherine kim Type: BLOOD SPECIMENOrdering Facility: [facility] Address: [address] [place] [address] Performed By: #### 2 4323-8 ####[facility] LABCLIA [id number] [place] [address] [place] Protein [Mass/Vol] 6.9 g/dL Normal 6.3-8.0 [facility] Comment on above: Order Comment: Speci men Type: BLOOD SPECIMENOrdering Facility: [facility] Address: [address] [place] [address] Performed By: #### 2 4323-8 ####[facility] LABCLIA [id number] [place] [address] [place] Sodium [Moles/Vol] 139 mmol/L Normal 136-144 [facility] Comment on above: Order Comment: Speci men Type: BLOOD SPECIMENOrdering Facility: [facility] Address: [address] [place] [address] Performed By: #### 2 4323-8 ####[facility] LABCLIA [id number] [place] [address] [place] Urea nitrogen [Mass/Vol] 9 mg/dL Normal 9-24 [facility] Comment on above: Order Comment: Speci men Type: BLOOD SPECIMENOrdering Facility: [facility] Address: [address] [place] [address] Performed By: #### 2 4323-8 ####[facility] LABCLIA [id number] [place] [address] [place] PT panel Coag (PPP)on 2023 INR Coag (PPP) [Relative time] 1.3 {INR} 0.9 - 1.3 [facility] Comment on above: Vitamin K Antagonist (VKA) Therapeutic Range: INR 2 to 3 (Target INR of 2.5) Note: For patients treated with VKA drugs, such as warfarin, the [place] [employer] 2012 Guideline recommends a therapeutic INR range of 2 to 3 (target INR of 2.5). This recommendation includes high-risk patients with antiphospholipid syndrome with previous arterial or venous thromboembolism, current-generation mechanical or bioprosthetic aortic heart valve replacement. Note: Patients with mechanical aortic valve replacement and additional risk factors for thromboembolic events (atrial fibrillation, previous thromboembolism, LV dysfunction, hypercoagulable conditions) or an older generation mechanical AVR (i.e., ball in-Cage) or any mechanical MVR should have a INR therapeutic range of 2.5 to 3.5 (target INR of 3). Juliette JUSTICE et kelly. Chest 2012, 141:7S-47S Jaylene GRAVES et kelly. [facility] 2017, 70: 252-289 Interpretation and review of laboratory results Abnormal [facility] PT Coag (PPP) [Time] 13.9 s High [facility] INR Coag (PPP) [Relative time] 1.3 {INR} Normal 0.9-1.3 [facility] Comment on above: Order Comment: Speci men Type: BLOOD SPECIMENOrdering Facility: [facility] Address: [address] [place] [address] Result Comment: Karuna min K Antagonist (VKA) Therapeutic Range: INR 2 to 3 (Target INR of 2.5) Note: For patients treated with VKA drugs, such as warfarin, the [place] [employer] 2012 Guideline recommends a therapeutic INR range of 2 to 3 (target INR of 2.5). This recommendation includes high-risk patients with antiphospholipid syndrome with previous arterial or venous thromboembolism, current-generation mechanical or bioprosthetic aortic heart valve replacement. Note: Patients with mechanical aortic valve replacement and additional risk factors for thromboembolic events (atrial fibrillation, previous thromboembolism, LV dysfunction, hypercoagulable conditions) or an older generation mechanical AVR (i.e., ball in-Cage) or any mechanical MVR should have a INR therapeutic range of 2.5 to 3.5 (target INR of 3). madina Mae. Chest 2012, 141:7S-47S Jaylene GRAVES et al. [facility] 2017, 70: 252-289 Performed By: #### 3 4528-0 ####[facility] LABCLIA [id number] [facility] [address] [address] [place] PT Coag (PPP) [Time] 13.9 s High 9.7-13.0 [facility] Comment on above: Order Comment: Speci men Type: BLOOD SPECIMENOrdering Facility: [facility] Address: [address] [place] [address] Performed By: #### 3 4528-0 ####[facility] LABCLIA [id number] [id number] [place] AMMONIAon 01-16-2024 Ammonia (P) [Moles/Vol] 32.0 umol/L Normal 11.0 - 32.0 [facility] Comment on above: Performed By: #### 2 55439 #### [facility],[address] [place], [place] [address] HEMOGLOBIN A1C (POM)on 01-15 Glucose [Mass/Vol] 96.8 mg/dL High 0.0 - 0.0 [facility] Comment on above: Result Comment: Do HEMOGLOBIN A1C REFERENCE RANGESBLDo Suggested Diagnosis HbA1c(%) HbA1C (mmol/mol Diabetic >/=6.5 >/=48 Prediabetes 5.7 - 6.4 39 - 47 Normal <5.7 <39 Performed By: #### 2 41613 #### [facility],[address] [place], [place] [address] HbA1c (Bld) [Mass fraction] 5.0 % Normal 0.0 - 6.5 [facility] Comment on above: Performed By: #### 2 40676 #### [facility],[address] [place] [address] CNOVon 01-01-2024 CNOV Office Visit (NEMOWS ) -------- ALEX ROJO ([id number]) 1975 [address] [facility] Date Time Provider Department 01/01/24 11:00 AM PITER GAINES JR During your visit today, we recorded the following information about you: Pulse Respiration Blood pressure Weight 94/minute 16/minute 126/68 77.9 kg Nan Wilson LPN 01/01/2024 11:58 AM Signed Piter Gaines Jr., MD 01/01/2024 11:58 AM Signed NEW PATIENT (CONSULT) HISTORY AND PHYSICAL EXAM PRIMARY CARE PHYSICIAN: Katia Lan MD REASON FOR CONSULT: Hx seizure REFERRING PHYSICIAN: No ref. provider found CHIEF COMPLAINT: Im not sure why Im here Consultation requested by No ref. provider found for an opinion regarding chief complaint of Patient presents with: New Patient: Pt presented with transportation from [place], reported ER visit [facility] for Hepatic concerns. and my final recommendations will be communicated back to the requesting physician by way of shared medical record or letter via [place] mail. HISTORY OF PRESENT ILLNESS: Alex Rojo is a 48 year old male, BMI 25.37 kg/m2 with a PMH significant for ETOH cirrhosis with hepatic encephalopathy, DM, thrombocytopenia, and prior ETOH dependence. Reportedly without ETOH use in almost years. Also reports multiple ortho surgeries associated with physical traumas including being stepped on by a bull. Patient limited historian. Records reviewed, and pt states he has limited memory of prior medical events. OSH CT brain and C spine on 07/27/23 showed per report no acute processes; MRI T spine showed compression fx at T9, and MRI L spine showed mild L2 compression fx. Pt states was seen in ER in 06/2022 in [place], [place] and was told to see a neurologist. It is unclear as to why patient was advised to see neurologist nor whether patient did see neurologist prior to today -- all med records not available for review. Question if pt may have had seizure, but do not know when and whether associated with ETOH/ETOH w/d or metabolic derangement including hyperammonemia. Spent well over 30 minutes reviewing the medical records prior to event and could not find a specific event in which there was documentation of seizure activity or concern for seizure by those evaluating patient. Patient then states he had a seizure in 06/2022. I reviewed records and per ER note of 06/2022: Why are you here today? - I don't know. Patient was brought to the ED from [facility], they felt his condition was medical related and wasn't appropriate for there psych unit, he arrived on a m-1 hold, patient has cirrhosis of the liver stage four, and is on transport list, history of seizures, long history of alcohol abuse. History of underlying end-stage alcoholic liver disease with history of encephalopathy. Initial Clinical Presentation: - Patient was not alert or oriented during the evaluation. He didn't know where he was, how he got here, he didn't know what year it was, he did know his name and the name of his . Patient presented highly confused, he could not answer questions with any intelligible response. He had a blank stare, he appeared to want to sleep, was unable to engage with card writer hand. Nursing reports he has been wandering but redirectable. He does deny SI and HI with card writer hand. Unclear if he is having hallucinations. He does not present manic. His mental status does appear related to a medical condition rather than a psychiatric condition, based on presentation, current medical history, no past psychiatric history. He is not appropriate for inpatient psychiatric care at this time. No aggressive behaviors noted during this episode of care. Collateral #1 Phone and Info: - Contacted patient's mother Janine [phone] for collateral information. She reports that patient moved in with her and his father a couple of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 equation. Careful clinical correlation is recommended, particularly when comparing to results calculated using previous equations. The CKD-EPI equation is less accurate in patients with extremes of muscle mass, extra-renal metabolism of creatine, excessive creatine ingestion, or following therapy that affects renal tubular secretion. Glucose [Mass/Vol] 78 mg/dL 74 - 99 mg/dL [facility]Academ[facility] Interpretation and review of laboratory results Abnormal [facility] Potassium [Moles/Vol] 4.8 mmol/L 3.5 - 5.0 mmol/L [facility] Protein [Mass/Vol] 6.2 g/dL Low 6.4 - 8.3 g/dL [facility] Sodium [Moles/Vol] 140 mmol/L 132 - 146 mmol/L [facility] Urea nitrogen [Mass/Vol] 9 mg/dL 6 - 20 mg/dL [facility] Cult, Bloodon 08-03-2023 Cult, Blood Specimen Description .BLOOD LEFT .HAND Special Requests Culture NO GROWTH 5 DAYS Report Status FINAL 08/03/2023 [facility] Comment on above: Performed By: #### B CUL2 #### [place] [address] Concession Stand Attendant: Kemal Waterman MD Cult,Bloodon 08-03-2023 Cult,Blood Specimen Description .BLOOD RIGHT .HAND Special Requests Culture NO GROWTH 5 DAYS Report Status FINAL 08/03/2023 [facility] Comment on above: Performed By: #### C MPX, CBCWD, PLCON #### [place] [address] Concession Stand Attendant: Kemal Waterman MD Culture, Blood 1on 4 Microorganism identified Cx Nom (Unsp spec) NO GROWTH 5 DAYS [facility] Service comment (Unsp spec) [Interp] [facility] Specimen Description .BLOOD RIGHT [facility] Culture, Blood 2on 4 Microorganism identified Cx Nom (Unsp spec) NO GROWTH 5 DAYS [facility] Service comment (Unsp spec) [Interp] [facility] Specimen Description .BLOOD LEFT [facility] Platelet Confirmationon 07-17 Platelet Confirmation CONFIRMED Normal [facility] Comment on above: Performed By: #### A MON #### [place] [address] Concession Stand Attendant: Kemal Waterman MD Platelet Confirmation CONFIRMED [facility] Ammoniaon 08-02-2023 Ammonia (P) [Moles/Vol] 75 umol/L High 16.0-60.0 [facility] Comment on above: Performed By: #### C MPX, CBCWD, PLCON #### [facility] [address] [facility] [place] [address] Concession Stand Attendant: Kemal Waterman MD Ammonia (P) [Moles/Vol] 75 umol/L High 16.0 - 60.0 umol/L [facility] Interpretation and review of laboratory results Abnormal [facility] CBC with Auto Differentialon 08-02-2023 Basophils (Bld) [#/Vol] 0 10*3/uL [facility] Basophils/100 WBC (Bld) 0 % 0.0 - 2.0 % [facility] Eosinophils (Bld) [#/Vol] 0.07 10*3/uL [facility] Eosinophils/100 WBC (Bld) 2 % 0 - 6 % [facility] Erythrocyte distribution width (RBC) [Ratio] 20.9 % High 11.5 - 15.0 % [facility] Hematocrit (Bld) [Volume fraction] 29.4 % Low 37.0 - 54.0 % [facility] Hemoglobin (Bld) [Mass/Vol] 9.8 g/dL Low 12.5 - 16.5 g/dL [facility] Interpretation and review of laboratory results Abnormal [facility] Lymphocytes/100 WBC (Bld) 11 % Low 20.0 - 42.0 % [facility] Lymphocytes/100 WBC (Bld) 0.46 % Low [facility] MCH (RBC) [Entitic mass] 32.2 pg 26.0 - 35.0 pg [facility] MCHC (RBC) [Mass/Vol] 33.3 g/dL 32.0 - 34.5 g/dL [facility] MCV (RBC) [Entitic vol] 96.7 fL 80.0 - 99.9 fL [facility] Monocytes/100 WBC (Bld) 11 % 2.0 - 12.0 % [facility] Monocytes/100 WBC (Bld) 0.42 % [facility] Neutrophils/100 WBC (Bld) 76 % 43.0 - 80.0 % [facility] Platelet mean volume (Bld) [Entitic vol] 10.6 fL 7.0 - 12.0 fL [facility] Platelets (Bld) [#/Vol] 54 10*3/uL Low [facility] RBC (Bld) [#/Vol] 3.04 10*6/uL Low 3.80 - 5.8 0 m/uL [facility] RBC (Bld) [#/Vol] 1+ ANISOCYTOSIS [facility] RBC (Bld) [#/Vol] 1+ SALOMON CELLS [facility] RBC (Bld) [#/Vol] 1+ POIKILOCYTOSIS [facility] RBC (Bld) [#/Vol] 1+ POLYCHROMASIA [facility] RBC (Bld) [#/Vol] 1+ TEARDROPS [facility] Segmented neutrophils/100 WBC (Bld) 3.05 % [facility] WBC (Bld) [#/Vol] PRESENT SMUDGE CELLS [facility] WBC other (Bld) [#/Vol] 4.0 Low [facility] CBC with Diffon 08-02-2023 Abs. Basophil 0 k/uL Normal 0.00-0.20 [facility] Comment on above: Performed By: #### C MPX, CBCWD, PLCON #### [place] [address] Concession Stand Attendant: Kemal Waterman MD Abs.Neutrophil (Seg) 3.05 k/uL Normal 1.80-7.30 [facility] Comment on above: Performed By: #### C MPX, CBCWD, PLCON #### [place] [address] Concession Stand Attendant: Kemal Waterman MD Basophils/100 WBC (Bld) 0 % Normal 0.0-2.0 [facility] Comment on above: Performed By: #### C MPX, CBCWD, PLCON #### [place] [address] Concession Stand Attendant: Kemal Waterman MD Eosinophils (Bld) [#/Vol] 0.07 10*3/uL Normal 0.05-0.50 [facility] Comment on above: Performed By: #### C MPX, CBCWD, PLCON #### [place] [address] Concession Stand Attendant: Kemal Waterman MD Eosinophils/100 WBC (Bld) 2 % Normal 0-6 [facility] Comment on above: Performed By: #### C MPX, CBCWD, PLCON #### [place] [address] Concession Stand Attendant: Kemal Waterman MD Lymphocytes (Bld) [#/Vol] 0.46 10*3/uL Low 1.50-4.00 [facility] Comment on above: Performed By: #### C MPX, CBCWD, PLCON #### [place] [address] Concession Stand Attendant: Kemal Waterman MD Lymphocytes/100 WBC (Bld) 11 % Low 20.0-42.0 [facility] Comment on above: Performed By: #### C MPX, CBCWD, PLCON #### [place] [address] Concession Stand Attendant: Kemal Waterman MD Monocytes (Bld) [#/Vol] 0.42 10*3/uL Normal 0.10-0.95 [facility] Comment on above: Performed By: #### C MPX, CBCWD, PLCON #### [address] [place] [address] Concession Stand Attendant: Kemal Waterman MD Monocytes/100 WBC (Bld) 11 % Normal 2.0-12.0 [facility] Comment on above: Performed By: #### C MPX, CBCWD, PLCON #### [address] [place] [address] Concession Stand Attendant: Kemal Waterman MD Neutrophil (Seg) 76 % Normal 43.0-80.0 [facility] Comment on above: Performed By: #### C MPX, CBCWD, PLCON #### [address] [place] [address] Concession Stand Attendant: Kemal Waterman MD RBC morphology finding Nom (Bld) 1+ Normal [facility] Comment on above: Result Comment: ANIS OCYTOSIS 1+ SALOMON CELLS 1+ POIKILOCYTOSIS 1+ POLYCHROMASIA 1+ TEARDROPS Performed By: #### C MPX, CBCWD, PLCON #### [address] [place] [address] Concession Stand Attendant: Kemal Waterman MD WBC Morphology PRESENT Normal [facility] Comment on above: Result Comment: SMUD GE CELLS Performed By: #### C MPX, CBCWD, PLCON #### [address] [place] [address] Concession Stand Attendant: Kemal Waterman MD Erythrocyte distribution width (RBC) [Ratio] 20.9 % High 11.5-15.0 [facility] Comment on above: Performed By: #### C MPX, CBCWD, PLCON #### [address] [place] [address] Concession Stand Attendant: Kemal Waterman MD Hematocrit (Bld) [Volume fraction] 29.4 % Low 37.0-54.0 [facility] Comment on above: Performed By: #### C MPX, CBCWD, PLCON #### [address] [address] Concession Stand Attendant: Kemal Waterman MD Hemoglobin (Bld) [Mass/Vol] 9.8 g/dL Low 12.5-16.5 [facility] Comment on above: Performed By: #### C MPX, CBCWD, PLCON #### [place] [address] Concession Stand Attendant: Kemal Waterman MD MCH (RBC) [Entitic mass] 32.2 pg Normal 26.0-35.0 [facility] Comment on above: Performed By: #### C MPX, CBCWD, PLCON #### [place] [address] Concession Stand Attendant: Kemal Waterman MD MCHC (RBC) [Mass/Vol] 33.3 g/dL Normal 32.0-34.5 [facility] Comment on above: Performed By: #### C MPX, CBCWD, PLCON #### [place] [address] Concession Stand Attendant: Kemal Waterman MD MCV (RBC) [Entitic vol] 96.7 fL Normal 80.0-99.9 [facility] Comment on above: Performed By: #### C MPX, CBCWD, PLCON #### [address] [address] Concession Stand Attendant: Kemal Waterman MD Platelet mean volume (Bld) [Entitic vol] 10.6 fL Normal 7.0-12.0 [facility] Comment on above: Performed By: #### C MPX, CBCWD, PLCON #### [address] [place] [address] Concession Stand Attendant: Kemal Waterman MD Platelets (Bld) [#/Vol] 54 10*3/uL Low 130-450 [facility] Comment on above: Performed By: #### C MPX, CBCWD, PLCON #### [address] [place] [address] Concession Stand Attendant: Kemal Waterman MD RBC (Bld) [#/Vol] 3.04 10*6/uL Low 3.80-5.80 [facility] Comment on above: Performed By: #### C MPX, CBCWD, PLCON #### [address] [place] [address] Concession Stand Attendant: Kemal Waterman MD WBC (Bld) [#/Vol] 4.0 10*3/uL Low 4.5-11.5 [facility] Comment on above: Performed By: #### C MPX, CBCWD, PLCON #### [address] [place] [address] Concession Stand Attendant: Kemal Waterman MD Comp Metabolic Pr/rfx MGon 0 - Albumin [Mass/Vol] 2.6 g/dL Low 3.5-5.2 [facility] Comment on above: Performed By: #### C MPX, CBCWD, PLCON #### [address] [place] [address] Concession Stand Attendant: Kemal Waterman MD Alkaline Phos 156 U/L High 40-129 [facility] Comment on above: Performed By: #### C MPX, CBCWD, PLCON #### [address] [place] [address] Concession Stand Attendant: Kemal Waterman MD ALT [Catalytic activity/Vol] 25 U/L Normal 0-40 [facility] Comment on above: Performed By: #### C MPX, CBCWD, PLCON #### [address] [place] [address] Concession Stand Attendant: Kemal Waterman MD Anion gap [Moles/Vol] 8 mmol/L Normal 7-16 [facility] Comment on above: Performed By: #### C MPX, CBCWD, PLCON #### [address] [place] [address] Concession Stand Attendant: Kemal Waterman MD AST [Catalytic activity/Vol] 61 U/L High 0-39 [facility] Comment on above: Performed By: #### C MPX, CBCWD, PLCON #### [place] [address] Concession Stand Attendant: Kemal Waterman MD Bilirubin [Mass/Vol] 1.7 mg/dL High 0.0-1.2 [facility] Comment on above: Performed By: #### C MPX, CBCWD, PLCON #### [place] [address] Concession Stand Attendant: Kemal Waterman MD Calcium [Mass/Vol] 8.0 mg/dL Low 8.6-10.2 [facility] Comment on above: Performed By: #### C MPX, CBCWD, PLCON #### [address] [place] [address] Concession Stand Attendant: Kemal Waterman MD Chloride [Moles/Vol] 105 mmol/L Normal 98-107 [facility] Comment on above: Performed By: #### C MPX, CBCWD, PLCON #### [place] [address] [place] [address] Concession Stand Attendant: Kemal Waterman MD CO2 [Moles/Vol] 24 mmol/L Normal 22-29 [facility] Comment on above: Performed By: #### C MPX, CBCWD, PLCON #### [address] [place] [address] Concession Stand Attendant: Kemal Waterman MD Creatinine [Mass/Vol] 0.6 mg/dL Low 0.70-1.20 [facility] Comment on above: Performed By: #### C MPX, CBCWD, PLCON #### [address] [place] [address] Concession Stand Attendant: Kemal Waterman MD GFR/1.73 sq M.predicted among non-blacks MDRD (S/P/Bld) [Vol rate/Area] mL/min/{1.73_m2} Normal >60 [facility] Comment on above: Result Comment: These results are not intended for use in patients <18 years of age. eGFR results are calculated without a race factor using the 2020 CKD-EPI equation. Careful clinical correlation is recommended, particularly when comparing to results calculated using previous equations. The CKD-EPI equation is less accurate in patients with extremes of muscle mass, extra-renal metabolism of creatine, excessive creatine ingestion, or following therapy that affects renal tubular secretion. Performed By: #### C MPX, CBCWD, PLCON #### [address] [place] [address] Concession Stand Attendant: Kemal Waterman MD Glucose [Mass/Vol] 85 mg/dL Normal 74-99 [facility] Comment on above: Performed By: #### C MPX, CBCWD, PLCON #### [address] [place] [address] Concession Stand Attendant: Kemal Waterman MD Potassium [Moles/Vol] 4.1 mmol/L Normal 3.5-5.0 [facility] Comment on above: Performed By: #### C MPX, CBCWD, PLCON #### [address] [place], [place] [address] Concession Stand Attendant: Kemal Waterman MD Protein [Mass/Vol] 5.5 g/dL Low 6.4-8.3 [facility] Comment on above: Performed By: #### C MPX, CBCWD, PLCON #### [address] [place] [address] Concession Stand Attendant: Kemal Waterman MD Sodium [Moles/Vol] 137 mmol/L Normal 132-146 [facility] Comment on above: Performed By: #### C MPX, CBCWD, PLCON #### [address] [place] [address] Concession Stand Attendant: Kemal Waterman MD Urea nitrogen [Mass/Vol] 7 mg/dL Normal 6-20 [facility] Comment on above: Performed By: #### C MPX, CBCWD, PLCON #### [address] [address] Concession Stand Attendant: Kemal Waterman MD Comprehensive Metabolic Pane l w/ Reflex to MGon 08-02-2023 Albumin [Mass/Vol] 2.6 g/dL Low 3.5 - 5.2 g/dL [facility] ALP [Catalytic activity/Vol] 156 U/L High 40 - 129 U/L [facility] ALT [Catalytic activity/Vol] 25 U/L 0 - 40 U/L [facility] Anion gap [Moles/Vol] 8 mmol/L 7 - 16 mmol/L [facility] AST [Catalytic activity/Vol] 61 U/L High 0 - 39 U/L [facility] Bilirubin [Mass/Vol] 1.7 mg/dL High 0.0 - 1 .2 mg/dL [facility] Calcium [Mass/Vol] 8.0 mg/dL Low 8.6 - 10. 2 mg/dL [facility] Chloride [Moles/Vol] 105 mmol/L 98 - 10 7 mmol/L [facility] CO2 [Moles/Vol] 24 mmol/L 22 - 29 mmol/L [facility] Creatinine [Mass/Vol] 0.6 mg/dL Low 0.70 - 1.20 mg/dL [facility] GFR/1.73 sq M.predicted MDRD (S/P/Bld) [Vol rate/Area] - PINF [facility] Comment on above: These results are not intended for use in patients <18 years of age. eGFR results are calculated without a race factor using the 2020 CKD-EPI equation. Careful clinical correlation is recommended, particularly when comparing to results calculated using previous equations. The CKD-EPI equation is less accurate in patients with extremes of muscle mass, extra-renal metabolism of creatine, excessive creatine ingestion, or following therapy that affects renal tubular secretion. Glucose [Mass/Vol] 85 mg/dL 74 - 99 mg/dL [facility] Interpretation and review of laboratory results Abnormal [facility] Potassium [Moles/Vol] 4.1 mmol/L 3.5 - 5.0 mmol/L [facility] Protein [Mass/Vol] 5.5 g/dL Low 6.4 - 8.3 g/dL [facility] Sodium [Moles/Vol] 137 mmol/L 132 - 146 mmol/L [facility] Urea nitrogen [Mass/Vol] 7 mg/dL 6 - 20 mg/dL [facility] Platelet Confirmationon 07-17 Platelet Confirmation CONFIRMED Normal [facility] Comment on above: Performed By: #### C MPX, CBCWD, PLCON #### [facility] [address] [place] [address] Concession Stand Attendant: Kemal Waterman MD Platelet Confirmation CONFIRMED [facility] Ammoniaon 08-01-2023 Ammonia (P) [Moles/Vol] 73 umol/L High 16.0-60.0 [facility] Comment on above: Performed By: #### A MON #### [facility] [address] [place] [address] Concession Stand Attendant: Kemal Waterman MD Ammonia (P) [Moles/Vol] 73 umol/L High 16.0 - 60.0 umol/L [facility] Interpretation and review of laboratory results Abnormal [facility] CBC with Auto Differentialon 08-01-2023 Basophils (Bld) [#/Vol] 0.00 10*3/uL [facility] Basophils/100 WBC (Bld) 0 % 0.0 - 2.0 % [facility] Eosinophils (Bld) [#/Vol] 0.07 10*3/uL [facility] Eosinophils/100 WBC (Bld) 2 % 0 - 6 % [facility] Erythrocyte distribution width (RBC) [Ratio] 20.5 % High 11.5 - 15.0 % [facility] Hematocrit (Bld) [Volume fraction] 28.3 % Low 37.0 - 54.0 % [facility] Hemoglobin (Bld) [Mass/Vol] 9.4 g/dL Low 12.5 - 16.5 g/dL [facility] Interpretation and review of laboratory results Abnormal [facility] Lymphocytes/100 WBC (Bld) 18 % Low 20.0 - 42.0 % [facility] Lymphocytes/100 WBC (Bld) 0.76 % Low [facility] MCH (RBC) [Entitic mass] 32.1 pg 26.0 - 35.0 pg [facility] MCHC (RBC) [Mass/Vol] 33.2 g/dL 32.0 - 34.5 g/dL [facility] MCV (RBC) [Entitic vol] 96.6 fL 80.0 - 99.9 fL [facility] Monocytes/100 WBC (Bld) 11 % 2.0 - 12.0 % [facility] Monocytes/100 WBC (Bld) 0.47 % [facility] Neutrophils/100 WBC (Bld) 68 % 43.0 - 80.0 % [facility] Platelet mean volume (Bld) [Entitic vol] 10.4 fL 7.0 - 12.0 fL [facility] Platelets (Bld) [#/Vol] 48 10*3/uL Low [facility] RBC (Bld) [#/Vol] 2.93 10*6/uL Low 3.80 - 5.8 0 m/uL [facility] RBC (Bld) [#/Vol] 2+ ANISOCYTOSIS [facility] RBC (Bld) [#/Vol] 1+ POIKILOCYTOSIS [facility] RBC (Bld) [#/Vol] 1+ TARGET CELLS [facility] RBC (Bld) [#/Vol] 2+ TEARDROPS [facility] Segmented neutrophils/100 WBC (Bld) 2.81 % [facility] WBC other (Bld) [#/Vol] 4.1 Low [facility] CBC with Diffon 08-01-2023 Abs. Basophil 0.00 k/uL Normal 0.00-0.20 [facility] Comment on above: Performed By: #### A MON #### [address] [address] Concession Stand Attendant: Kemal Waterman MD Abs.Neutrophil (Seg) 2.81 k/uL Normal 1.80-7.30 [facility] Comment on above: Performed By: #### A MON #### [address] [address] Concession Stand Attendant: Kemal Waterman MD Basophils/100 WBC (Bld) 0 % Normal 0.0-2.0 [facility] Comment on above: Performed By: #### A MON #### [address] [address] Concession Stand Attendant: Kemal Waterman MD Eosinophils (Bld) [#/Vol] 0.07 10*3/uL Normal 0.05-0.50 [facility] Comment on above: Performed By: #### A MON #### [address] [place] [address] Concession Stand Attendant: Kemal Waterman MD Eosinophils/100 WBC (Bld) 2 % Normal 0-6 [facility] Comment on above: Performed By: #### A MON #### [place] [address] Concession Stand Attendant: Kemal Waterman MD Lymphocytes (Bld) [#/Vol] 0.76 10*3/uL Low 1.50-4.00 [facility] Comment on above: Performed By: #### A MON #### [address] [place] [address] Concession Stand Attendant: Kemal Waterman MD Lymphocytes/100 WBC (Bld) 18 % Low 20.0-42.0 [facility] Comment on above: Performed By: #### A MON #### [address] [place] [address] Concession Stand Attendant: Kemal Waterman MD Monocytes (Bld) [#/Vol] 0.47 10*3/uL Normal 0.10-0.95 [facility] Comment on above: Performed By: #### A MON #### [place] [address] Concession Stand Attendant: Kemal Waterman MD Monocytes/100 WBC (Bld) 11 % Normal 2.0-12.0 [facility] Comment on above: Performed By: #### A MON #### [place] [address] Concession Stand Attendant: Kemal Waterman MD Neutrophil (Seg) 68 % Normal 43.0-80.0 [facility] Comment on above: Performed By: #### A MON #### [address] [place] [address] Concession Stand Attendant: Kemal Waterman MD RBC morphology finding Nom (Bld) 2+ Normal [facility] Comment on above: Result Comment: ANIS OCYTOSIS 1+ POIKILOCYTOSIS 1+ TARGET CELLS 2+ TEARDROPS Performed By: #### A MON #### [place] [address] Concession Stand Attendant: Kemal Waterman MD Erythrocyte distribution width (RBC) [Ratio] 20.5 % High 11.5-15.0 [facility] Comment on above: Performed By: #### A MON #### [place] [address] Concession Stand Attendant: Kemal Waterman MD Hematocrit (Bld) [Volume fraction] 28.3 % Low 37.0-54.0 [facility] Comment on above: Performed By: #### A MON #### [place] [address] Concession Stand Attendant: Kemal Waterman MD Hemoglobin (Bld) [Mass/Vol] 9.4 g/dL Low 12.5-16.5 [facility] Comment on above: Performed By: #### A MON #### [address] [address] Concession Stand Attendant: Kemal Waterman MD MCH (RBC) [Entitic mass] 32.1 pg Normal 26.0-35.0 [facility] Comment on above: Performed By: #### A MON #### [address] [address] Concession Stand Attendant: Kemal Waterman MD MCHC (RBC) [Mass/Vol] 33.2 g/dL Normal 32.0-34.5 [facility] Comment on above: Performed By: #### A MON #### [address] [place] [address] Concession Stand Attendant: Kemal Waterman MD MCV (RBC) [Entitic vol] 96.6 fL Normal 80.0-99.9 [facility] Comment on above: Performed By: #### A MON #### [address] [address] Concession Stand Attendant: Kemal Waterman MD Platelet mean volume (Bld) [Entitic vol] 10.4 fL Normal 7.0-12.0 [facility] Comment on above: Performed By: #### A MON #### [address] [address] Concession Stand Attendant: Kemal Waterman MD Platelets (Bld) [#/Vol] 48 10*3/uL Low 130-450 [facility] Comment on above: Performed By: #### A MON #### [address] [address] Concession Stand Attendant: Kemal Waterman MD RBC (Bld) [#/Vol] 2.93 10*6/uL Low 3.80-5.80 [facility] Comment on above: Performed By: #### A MON #### [address] [address] Concession Stand Attendant: Kemal Waterman MD WBC (Bld) [#/Vol] 4.1 10*3/uL Low 4.5-11.5 [facility] Comment on above: Performed By: #### A MON #### [address] [place] [address] Concession Stand Attendant: Kemal Waterman MD Comp Metabolic Pr/rfx MGon 0 - Albumin [Mass/Vol] 2.9 g/dL Low 3.5-5.2 [facility] Comment on above: Performed By: #### A MON #### [address] [place] [address] Concession Stand Attendant: Kemal Waterman MD Alkaline Phos 135 U/L High 40-129 [facility] Comment on above: Performed By: #### A MON #### [address] [place] [address] Concession Stand Attendant: Kemal Waterman MD ALT [Catalytic activity/Vol] 29 U/L Normal 0-40 [facility] Comment on above: Performed By: #### A MON #### [address] [place] [address] Concession Stand Attendant: Kemal Waterman MD Anion gap [Moles/Vol] 11 mmol/L Normal 7-16 [facility] Comment on above: Performed By: #### A MON #### [address] [place] [address] Concession Stand Attendant: Kemal Waterman MD AST [Catalytic activity/Vol] 79 U/L High 0-39 [facility] Comment on above: Performed By: #### A MON #### [address] [place] [address] Concession Stand Attendant: Kemal Waterman MD Bilirubin [Mass/Vol] 1.7 mg/dL High 0.0-1.2 [facility] Comment on above: Performed By: #### A MON #### [address] [place] [address] Concession Stand Attendant: Kemal Waterman MD Calcium [Mass/Vol] 7.6 mg/dL Low 8.6-10.2 [facility] Comment on above: Performed By: #### A MON #### [address] [place] [address] Concession Stand Attendant: Kemal Waterman MD Chloride [Moles/Vol] 101 mmol/L Normal 98-107 [facility] Comment on above: Performed By: #### A MON #### [address] [address] Concession Stand Attendant: Kemal Waterman MD CO2 [Moles/Vol] 23 mmol/L Normal 22-29 [facility] Comment on above: Performed By: #### A MON #### [address] [address] Concession Stand Attendant: Kemal Waterman MD Creatinine [Mass/Vol] 0.7 mg/dL Normal 0.70-1.20 [facility] Comment on above: Performed By: #### A MON #### [address] [place] [address] Concession Stand Attendant: Kemal Waterman MD GFR/1.73 sq M.predicted among non-blacks MDRD (S/P/Bld) [Vol rate/Area] mL/min/{1.73_m2} Normal >60 [facility] Comment on above: Result Comment: These results are not intended for use in patients <18 years of age. eGFR results are calculated without a race factor using the 2020 CKD-EPI equation. Careful clinical correlation is recommended, particularly when comparing to results calculated using previous equations. The CKD-EPI equation is less accurate in patients with extremes of muscle mass, extra-renal metabolism of creatine, excessive creatine ingestion, or following therapy that affects renal tubular secretion. Performed By: #### A MON #### [address] [place] [address] Concession Stand Attendant: Kemal Waterman MD Glucose [Mass/Vol] 96 mg/dL Normal 74-99 [facility] Comment on above: Performed By: #### A MON #### [address] [place] [address] Concession Stand Attendant: Kemal Waterman MD Potassium [Moles/Vol] 3.4 mmol/L Low 3.5-5.0 [facility] Comment on above: Performed By: #### A MON #### [address] [place] [address] Concession Stand Attendant: Kemal Waterman MD Protein [Mass/Vol] 5.6 g/dL Low 6.4-8.3 [facility] Comment on above: Performed By: #### A MON #### [address] [place] [address] Concession Stand Attendant: Kemal Waterman MD Sodium [Moles/Vol] 135 mmol/L Normal 132-146 [facility] Comment on above: Performed By: #### A MON #### [address] [place] [address] Concession Stand Attendant: Kemal Waterman MD Urea nitrogen [Mass/Vol] 8 mg/dL Normal 6-20 [facility] Comment on above: Performed By: #### A MON #### [address] [place] [address] Concession Stand Attendant: Kemal Waterman MD Comprehensive Metabolic Pane l w/ Reflex to MGon 08-01-2023 Albumin [Mass/Vol] 2.9 g/dL Low 3.5 - 5.2 g/dL [facility] ALP [Catalytic activity/Vol] 135 U/L High 40 - 129 U/L [facility] ALT [Catalytic activity/Vol] 29 U/L 0 - 40 U/L [facility] Anion gap [Moles/Vol] 11 mmol/L 7 - 16 mmol/L [facility] AST [Catalytic activity/Vol] 79 U/L High 0 - 39 U/L [facility] Bilirubin [Mass/Vol] 1.7 mg/dL High 0.0 - 1 .2 mg/dL [facility] Calcium [Mass/Vol] 7.6 mg/dL Low 8.6 - 10. 2 mg/dL [facility] Chloride [Moles/Vol] 101 mmol/L 98 - 10 7 mmol/L [facility] CO2 [Moles/Vol] 23 mmol/L 22 - 29 mmol/L [facility] Creatinine [Mass/Vol] 0.7 mg/dL 0.70 - 1.20 mg/dL [facility] GFR/1.73 sq M.predicted MDRD (S/P/Bld) [Vol rate/Area] - PINF [facility] Comment on above: These results are not intended for use in patients <18 years of age. eGFR results are calculated without a race factor using the 2020 CKD-EPI equation. Careful clinical correlation is recommended, particularly when comparing to results calculated using previous equations. The CKD-EPI equation is less accurate in patients with extremes of muscle mass, extra-renal metabolism of creatine, excessive creatine ingestion, or following therapy that affects renal tubular secretion. Glucose [Mass/Vol] 96 mg/dL 74 - 99 mg/dL [facility] Interpretation and review of laboratory results Abnormal [facility] Potassium [Moles/Vol] 3.4 mmol/L Low 3.5 - 5.0 mmol/L [facility] Protein [Mass/Vol] 5.6 g/dL Low 6.4 - 8.3 g/dL [facility] Sodium [Moles/Vol] 135 mmol/L 132 - 146 mmol/L [facility] Urea nitrogen [Mass/Vol] 8 mg/dL 6 - 20 mg/dL [facility] Magnesiumon 08-01-2023 Magnesium [Mass/Vol] 1.6 mg/dL Normal 1.6-2.6 [facility] Comment on above: Performed By: #### A MON #### [place] [address] Concession Stand Attendant: Kemal Waterman MD Magnesium [Mass/Vol] 1.6 mg/dL 1.6 - 2 .6 mg/dL [facility] No Panel Informationon 08-01 [facility] Platelet Confirmationon 07-17 Platelet Confirmation CONFIRMED Normal [facility] Comment on above: Performed By: #### A MON #### [place] [address] Concession Stand Attendant: Kemal Waterman MD Platelet Confirmation CONFIRMED [facility] Ammoniaon 07-31-2023 Ammonia (P) [Moles/Vol] 34 umol/L Normal 16.0-60.0 [facility] Comment on above: Performed By: #### C MPX, CBCWD, PLCON #### [place] [address] Concession Stand Attendant: Kemal Waterman MD Ammonia (P) [Moles/Vol] 34 umol/L 16.0 - 60.0 umol/L [facility] CBC with Auto Differentialon 07-31-2023 Basophils (Bld) [#/Vol] 0.02 10*3/uL [facility] Basophils/100 WBC (Bld) 0 % 0.0 - 2.0 % [facility] Eosinophils (Bld) [#/Vol] 0.08 10*3/uL [facility] Eosinophils/100 WBC (Bld) 2 % 0 - 6 % [facility] Erythrocyte distribution width (RBC) [Ratio] 20.8 % High 11.5 - 15.0 % [facility] Hematocrit (Bld) [Volume fraction] 30.6 % Low 37.0 - 54.0 % [facility] Hemoglobin (Bld) [Mass/Vol] 10.1 g/dL Low 12.5 - 16.5 g/dL [facility] Immature granulocytes (Bld) [#/Vol] 0.04 10*3/uL [facility] Immature granulocytes/100 WBC (Bld) 1 % 0.0 - 5.0 % [facility] Interpretation and review of laboratory results Abnormal [facility] Lymphocytes/100 WBC (Bld) 18 % Low 20.0 - 42.0 % [facility] Lymphocytes/100 WBC (Bld) 0.96 % Low [facility] MCH (RBC) [Entitic mass] 32.7 pg 26.0 - 35.0 pg [facility] MCHC (RBC) [Mass/Vol] 33.0 g/dL 32.0 - 34.5 g/dL [facility] MCV (RBC) [Entitic vol] 99.0 fL 80.0 - 99.9 fL [facility] Monocytes/100 WBC (Bld) 16 % High 2.0 - 12.0 % [facility] Monocytes/100 WBC (Bld) 0.87 % [facility] Neutrophils/100 WBC (Bld) 64 % 43.0 - 80.0 % [facility] Platelet mean volume (Bld) [Entitic vol] 9.9 fL 7.0 - 12.0 fL [facility] Platelets (Bld) [#/Vol] 50 10*3/uL Low [facility] RBC (Bld) [#/Vol] 3.09 10*6/uL Low 3.80 - 5.8 0 m/uL [facility] RBC (Bld) [#/Vol] 1+ ANISOCYTOSIS [facility] RBC (Bld) [#/Vol] 1+ OVALOCYTES [facility] RBC (Bld) [#/Vol] 1+ POIKILOCYTOSIS [facility] RBC (Bld) [#/Vol] 1+ POLYCHROMASIA B ON [facility] Segmented neutrophils/100 WBC (Bld) 3.52 % [facility] WBC other (Bld) [#/Vol] 5.5 [facility] CBC with Diffon 07-31-2023 RBC morphology finding Nom (Bld) 1+ Normal [facility] Comment on above: Result Comment: ANIS OCYTOSIS 1+ OVALOCYTES 1+ POIKILOCYTOSIS 1+ POLYCHROMASIA Performed By: #### C MPX, CBCWD, PLCON #### [place] [address] Concession Stand Attendant: Kemal Waterman MD Abs. Basophil 0.02 k/uL Normal 0.00-0.20 [facility] Comment on above: Performed By: #### C MPX, CBCWD, PLCON #### [place] [address] Concession Stand Attendant: Kemal Waterman MD Abs.Imm.Granulocyte 0.04 k/uL Normal 0.00-0.58 [facility] Comment on above: Performed By: #### C MPX, CBCWD, PLCON #### [place] [address] Concession Stand Attendant: Kemal Waterman MD Abs.Neutrophil (Seg) 3.52 k/uL Normal 1.80-7.30 [facility] Comment on above: Performed By: #### C MPX, CBCWD, PLCON #### [place] [address] Concession Stand Attendant: Kemal Waterman MD Basophils/100 WBC (Bld) 0 % Normal 0.0-2.0 [facility] Comment on above: Performed By: #### C MPX, CBCWD, PLCON #### [place] [address] Concession Stand Attendant: Kemal Waterman MD Eosinophils (Bld) [#/Vol] 0.08 10*3/uL Normal 0.05-0.50 [facility] Comment on above: Performed By: #### C MPX, CBCWD, PLCON #### [address] [place] [address] Concession Stand Attendant: Kemal Waterman MD Eosinophils/100 WBC (Bld) 2 % Normal 0-6 [facility] Comment on above: Performed By: #### C MPX, CBCWD, PLCON #### [place] [address] Concession Stand Attendant: Kemal Waterman MD Immature granulocytes/100 WBC (Bld) 1 % Normal 0.0-5.0 [facility] Comment on above: Performed By: #### C MPX, CBCWD, PLCON #### [place] [address] Concession Stand Attendant: Kemal Waterman MD Lymphocytes (Bld) [#/Vol] 0.96 10*3/uL Low 1.50-4.00 [facility] Comment on above: Performed By: #### C MPX, CBCWD, PLCON #### [address] [place] [address] Concession Stand Attendant: Kemal Waterman MD Lymphocytes/100 WBC (Bld) 18 % Low 20.0-42.0 [facility] Comment on above: Performed By: #### C MPX, CBCWD, PLCON #### [address] [place] [address] Concession Stand Attendant: Kemal Waterman MD Monocytes (Bld) [#/Vol] 0.87 10*3/uL Normal 0.10-0.95 [facility] Comment on above: Performed By: #### C MPX, CBCWD, PLCON #### [address] [place] [id number] Concession Stand Attendant: Kemal Waterman MD Monocytes/100 WBC (Bld) 16 % High 2.0-12.0 [facility] Comment on above: Performed By: #### C MPX, CBCWD, PLCON #### [address] [place] [address] Concession Stand Attendant: Kemal Waterman MD Neutrophil (Seg) 64 % Normal 43.0-80.0 [facility] Comment on above: Performed By: #### C MPX, CBCWD, PLCON #### [address] [place] [address] Concession Stand Attendant: Kemal Waterman MD Erythrocyte distribution width (RBC) [Ratio] 20.8 % High 11.5-15.0 [facility] Comment on above: Performed By: #### C MPX, CBCWD, PLCON #### [address] [place] [address] Concession Stand Attendant: Kemal Waterman MD Hematocrit (Bld) [Volume fraction] 30.6 % Low 37.0-54.0 [facility] Comment on above: Performed By: #### C MPX, CBCWD, PLCON #### [address] [place] [address] Concession Stand Attendant: Kemal Waterman MD Hemoglobin (Bld) [Mass/Vol] 10.1 g/dL Low 12.5-16.5 [facility] Comment on above: Performed By: #### C MPX, CBCWD, PLCON #### [address] [place] [address] Concession Stand Attendant: Kemal Waterman MD MCH (RBC) [Entitic mass] 32.7 pg Normal 26.0-35.0 [facility] Comment on above: Performed By: #### C MPX, CBCWD, PLCON #### [address] [place] [address] Concession Stand Attendant: Kemal Waterman MD MCHC (RBC) [Mass/Vol] 33.0 g/dL Normal 32.0-34.5 [facility] Comment on above: Performed By: #### C MPX, CBCWD, PLCON #### [address] [place] [address] Concession Stand Attendant: Kemal Waterman MD MCV (RBC) [Entitic vol] 99.0 fL Normal 80.0-99.9 [facility] Comment on above: Performed By: #### C MPX, CBCWD, PLCON #### [address] [place] [address] Concession Stand Attendant: Kemal Waterman MD Platelet mean volume (Bld) [Entitic vol] 9.9 fL Normal 7.0-12.0 [facility] Comment on above: Performed By: #### C MPX, CBCWD, PLCON #### [address] [place] [address] Concession Stand Attendant: Kemal Waterman MD Platelets (Bld) [#/Vol] 50 10*3/uL Low 130-450 [facility] Comment on above: Performed By: #### C MPX, CBCWD, PLCON #### [address] [place] [address] Concession Stand Attendant: Kemal Waterman MD RBC (Bld) [#/Vol] 3.09 10*6/uL Low 3.80-5.80 [facility] Comment on above: Performed By: #### C MPX, CBCWD, PLCON #### [address] [place] [address] Concession Stand Attendant: Kemal Waterman MD WBC (Bld) [#/Vol] 5.5 10*3/uL Normal 4.5-11.5 [facility] Comment on above: Performed By: #### C MPX, CBCWD, PLCON #### [address] [address] Concession Stand Attendant: Kemal Waterman MD Comp Metabolic Pr/rfx MGon 0 - Albumin [Mass/Vol] 2.9 g/dL Low 3.5-5.2 [facility] Comment on above: Performed By: #### C MPX, CBCWD, PLCON #### [address] [address] Concession Stand Attendant: Kemal Waterman MD Alkaline Phos 126 U/L Normal 40-129 [facility] Comment on above: Performed By: #### C MPX, CBCWD, PLCON #### [address] [address] Concession Stand Attendant: Kemal Waterman MD ALT [Catalytic activity/Vol] 30 U/L Normal 0-40 [facility] Comment on above: Performed By: #### C MPX, CBCWD, PLCON #### [address] [address] Concession Stand Attendant: Kemal Waterman MD Anion gap [Moles/Vol] 10 mmol/L Normal 7-16 [facility] Comment on above: Performed By: #### C MPX, CBCWD, PLCON #### [address] [address] Concession Stand Attendant: Kemal Waterman MD AST [Catalytic activity/Vol] 83 U/L High 0-39 [facility] Comment on above: Performed By: #### C MPX, CBCWD, PLCON #### [address] [place] [address] Concession Stand Attendant: Kemal Waterman MD Bilirubin [Mass/Vol] 2.0 mg/dL High 0.0-1.2 [facility] Comment on above: Performed By: #### C MPX, CBCWD, PLCON #### [address] [place] [address] Concession Stand Attendant: Kemal Waterman MD Calcium [Mass/Vol] 7.6 mg/dL Low 8.6-10.2 [facility] Comment on above: Performed By: #### C MPX, CBCWD, PLCON #### [address] [address] Concession Stand Attendant: Kemal Waterman MD Chloride [Moles/Vol] 102 mmol/L Normal 98-107 [facility] Comment on above: Performed By: #### C MPX, CBCWD, PLCON #### [address] [address] Concession Stand Attendant: Kemal Waterman MD CO2 [Moles/Vol] 23 mmol/L Normal 22-29 [facility] Comment on above: Performed By: #### C MPX, CBCWD, PLCON #### [address] [address] Concession Stand Attendant: Kemal Waterman MD Creatinine [Mass/Vol] 0.8 mg/dL Normal 0.70-1.20 [facility] Comment on above: Performed By: #### C MPX, CBCWD, PLCON #### [address] [address] Concession Stand Attendant: Kemal Waterman MD GFR/1.73 sq M.predicted among non-blacks MDRD (S/P/Bld) [Vol rate/Area] mL/min/{1.73_m2} Normal >60 [facility] Comment on above: Result Comment: These results are not intended for use in patients <18 years of age. eGFR results are calculated without a race factor using the 2020 CKD-EPI equation. Careful clinical correlation is recommended, particularly when comparing to results calculated using previous equations. The CKD-EPI equation is less accurate in patients with extremes of muscle mass, extra-renal metabolism of creatine, excessive creatine ingestion, or following therapy that affects renal tubular secretion. Performed By: #### C MPX, CBCWD, PLCON #### [address] [place] [address] Concession Stand Attendant: Kemal Waterman MD Glucose [Mass/Vol] 83 mg/dL Normal 74-99 [facility] Comment on above: Performed By: #### C MPX, CBCWD, PLCON #### [address] [place] [address] Concession Stand Attendant: Kemal Waterman MD Potassium [Moles/Vol] 3.7 mmol/L Normal 3.5-5.0 [facility] Comment on above: Performed By: #### C MPX, CBCWD, PLCON #### [address] [place] [address] Concession Stand Attendant: Kemal Waterman MD Protein [Mass/Vol] 5.9 g/dL Low 6.4-8.3 [facility] Comment on above: Performed By: #### C MPX, CBCWD, PLCON #### [address] [place] [address] Concession Stand Attendant: Kemal Waterman MD Sodium [Moles/Vol] 135 mmol/L Normal 132-146 [facility] Comment on above: Performed By: #### C MPX, CBCWD, PLCON #### [address] [place] [address] Concession Stand Attendant: Kemal Waterman MD Urea nitrogen [Mass/Vol] 10 mg/dL Normal 6-20 [facility] Comment on above: Performed By: #### C MPX, CBCWD, PLCON #### [address] [place], [place] [id number] Concession Stand Attendant: Kemal Waterman MD Comprehensive Metabolic Pane l w/ Reflex to MGon 07-31-2023 Albumin [Mass/Vol] 2.9 g/dL Low 3.5 - 5.2 g/dL [facility] ALP [Catalytic activity/Vol] 126 U/L 40 - 129 U/L [facility] ALT [Catalytic activity/Vol] 30 U/L 0 - 40 U/L [facility] Anion gap [Moles/Vol] 10 mmol/L 7 - 16 mmol/L [facility] AST [Catalytic activity/Vol] 83 U/L High 0 - 39 U/L [facility] Bilirubin [Mass/Vol] 2.0 mg/dL High 0.0 - 1 .2 mg/dL [facility] Calcium [Mass/Vol] 7.6 mg/dL Low 8.6 - 10. 2 mg/dL [facility] Chloride [Moles/Vol] 102 mmol/L 98 - 10 7 mmol/L [facility] CO2 [Moles/Vol] 23 mmol/L 22 - 29 mmol/L [facility] Creatinine [Mass/Vol] 0.8 mg/dL 0.70 - 1.20 mg/dL [facility] GFR/1.73 sq M.predicted MDRD (S/P/Bld) [Vol rate/Area] - PINF [facility] Comment on above: These results are not intended for use in patients <18 years of age. eGFR results are calculated without a race factor using the 2020 CKD-EPI equation. Careful clinical correlation is recommended, particularly when comparing to results calculated using previous equations. The CKD-EPI equation is less accurate in patients with extremes of muscle mass, extra-renal metabolism of creatine, excessive creatine ingestion, or following therapy that affects renal tubular secretion. Glucose [Mass/Vol] 83 mg/dL 74 - 99 mg/dL [facility] Interpretation and review of laboratory results Abnormal [facility] Potassium [Moles/Vol] 3.7 mmol/L 3.5 - 5.0 mmol/L [facility] Protein [Mass/Vol] 5.9 g/dL Low 6.4 - 8.3 g/dL [facility] Sodium [Moles/Vol] 135 mmol/L 132 - 146 mmol/L [facility] Urea nitrogen [Mass/Vol] 10 mg/dL 6 - 20 mg/dL [facility] Drug Scr, Abuse, Uron 2023 Amphetamine(s),Ur Negative Normal NEG [facility] Comment on above: Result Comment: Cuto ff: 1000 ng/mL Performed By: #### D AU #### [place] [address] Concession Stand Attendant: Kemal Waterman MD Barbiturate(s),Ur Negative Normal NEG [facility] Comment on above: Result Comment: Cuto ff: 200 ng/ml Performed By: #### D AU #### [place] [address] Concession Stand Attendant: Kemal Waterman MD Benzodiazepine(s) Negative Normal NEG [facility] Comment on above: Result Comment: Cuto ff: 200 ng/ml Performed By: #### D AU #### [address] [address] Concession Stand Attendant: Kemal Waterman MD Buprenorphrine, Ur Negative Normal NEG [facility] Comment on above: Result Comment: Cuto ff: 5 ng/ml Performed By: #### D AU #### [address] [place] [address] Concession Stand Attendant: Kemal Waterman MD Cannabinoid(s),Ur Positive Abnormal NEG [facility] Comment on above: Result Comment: Cuto ff: 50 ng/ml Performed By: #### D AU #### [address] [place] [address] Concession Stand Attendant: Kemal Waterman MD Cocaine Metabolite Negative Normal NEG [facility] Comment on above: Result Comment: Cuto ff: 300 ng/ml Performed By: #### D AU #### [address] [place] [address] Concession Stand Attendant: Kemal Waterman MD Fentanyl, Urine Negative Normal NEG [facility] Comment on above: Result Comment: Cuto ff: 1.0 ng/ml Performed By: #### D AU #### [address] [place] [address] Concession Stand Attendant: Kemal Waterman MD Interpretive Info These drug screen results are for medical purposes only and should not be Normal [facility] Comment on above: Result Comment: cons idered definitive or confirmed. The drug methodology concentration value must be greater than or equal to the cutoff to be reported as positive. Confirmtory testing orders and/or interpretive sceening questions can be directed to toxicology at [phone]. The absence of expected drug(s) and/or metabolite(s) may be due to inappropriate timing of specimen collection relative to drug administration, poor drug absorption, diluted/adulterated urine, or limitations of screening methodology. Performed By: #### D AU #### [address] [place] [address] Concession Stand Attendant: Kemal Waterman MD Methadone Ql (U) Negative Normal NEG [facility] Comment on above: Result Comment: Cuto ff: 300 ng/ml Performed By: #### D AU #### [address] [place] [address] Concession Stand Attendant: Kemal Waterman MD Opiate(s), Ur Negative Normal NEG [facility] Comment on above: Result Comment: Cuto ff: 300 ng/ml Note: The Opiate screen is not intended to detect Oxycodone. Performed By: #### D AU #### [address] [place] [address] Concession Stand Attendant: Kemal Waterman MD Oxycodone, Urine Positive Abnormal NEG [facility] Comment on above: Result Comment: Cuto ff: 100 ng/ml Performed By: #### D AU #### [address] [place] [address] Concession Stand Attendant: Kemal Waterman MD Phencyclidine, Ur Negative Normal NEG [facility] Comment on above: Result Comment: Cuto ff: 25 ng/ml Performed By: #### D AU #### [address] [place] [address] Concession Stand Attendant: Kemal Waterman MD No Panel Informationon 07-31 [facility] PTon 07-31-2023 INR Coag (PPP) [Relative time] 1.6 {INR} Normal [facility] Comment on above: Result Comment: Therapeutic Range: Moderate Anticoagulant Intensity: INR = 2.0-3.0 High Anticoagulant Intensity: INR = 2.5-3.5 Performed By: #### C MPX, CBCWD, PLCON #### [address] [place] [address] Concession Stand Attendant: Kemal Waterman MD PT Coag (PPP) [Time] 17.0 s High 9.3-12.4 [facility] Comment on above: Performed By: #### C MPX, CBCWD, PLCON #### [address] [place] [address] Concession Stand Attendant: Kemal Waterman MD Platelet Confirmationon 07-17 Platelet Confirmation CONFIRMED Normal [facility] Comment on above: Performed By: #### C MPX, CBCWD, PLCON #### [facility] [address] [place] [address] Concession Stand Attendant: Kemal Waterman MD Platelet Confirmation CONFIRMED [facility] Protime-INRon 07-31-2023 INR Coag (PPP) [Relative time] 1.6 {INR} [facility] Comment on above: Therapeutic Range: Moderate Anticoagulant Intensity: INR = 2.0-3.0 High Anticoagulant Intensity: INR = 2.5-3.5 Interpretation and review of laboratory results Abnormal [facility] PT Coag (PPP) [Time] 17.0 s High [facility] Urine Drug Screenon 07-31-19 24 Amphetamines Ql (U) Negative NEGATIVE [facility] Comment on above: Cutoff: 1000 ng/mL Barbiturates Screen Ql (U) Negative NEGATIVE [facility] Comment on above: Cutoff: 200 ng/ml Benzodiazepines Ql (U) Negative NEGATIVE [facility] Comment on above: Cutoff: 200 ng/ml Buprenorphine Ql (U) Negative NEGATIVE [facility] Comment on above: Cutoff: 5 ng/ml Cannabinoids Screen Ql (U) Positive Abnormal NEGATIVE [facility] Comment on above: Cutoff: 50 ng/ml Cocaine Ql (U) Negative NEGATIVE [facility] Comment on above: Cutoff: 300 ng/ml fentaNYL Ql (U) Negative NEGATIVE [facility] Comment on above: Cutoff: 1.0 ng/ml Interpretation and review of laboratory results Abnormal [facility] Methadone Ql (U) Negative NEGATIVE [facility] Comment on above: Cutoff: 300 ng/ml Opiates Screen Ql (U) Negative NEGATIVE [facility] Comment on above: Cutoff: 300 ng/ml Note: The Opiate screen is not intended to detect Oxycodone. oxyCODONE Ql (U) Positive Abnormal NEGATIVE [facility] Comment on above: Cutoff: 100 ng/ml Phencyclidine Ql (U) Negative NEGATIVE [facility] Comment on above: Cutoff: 25 ng/ml Test Information These drug screen results are for medical purposes only and should not be considered definitive or confirmed. [facility] Comment on above: The drug methodology concentration value must be greater than or equal to the cutoff to be reported as positive. Confirmtory testing orders and/or interpretive sceening questions can be directed to toxicology at [phone]. The absence of expected drug(s) and/or metabolite(s) may be due to inappropriate timing of specimen collection relative to drug administration, poor drug absorption, diluted/adulterated urine, or limitations of screening methodology. [facility] Ammoniaon 07-30-2023 Ammonia (P) [Moles/Vol] 82 umol/L High 16.0-60.0 [facility] Comment on above: Performed By: #### C MPX, CBCWD, PLCON #### [facility] [address] [place] [address] Concession Stand Attendant: Kemal Waterman MD Ammonia (P) [Moles/Vol] 82 umol/L High 16.0 - 60.0 umol/L [facility] Interpretation and review of laboratory results Abnormal [facility] CBC with Auto Differentialon 07-30-2023 Basophils (Bld) [#/Vol] 0.02 10*3/uL [facility] Basophils/100 WBC (Bld) 0 % 0.0 - 2.0 % [facility] Eosinophils (Bld) [#/Vol] 0.02 10*3/uL Low [facility] Eosinophils/100 WBC (Bld) 0 % 0 - 6 % [facility] Erythrocyte distribution width (RBC) [Ratio] 20.0 % High 11.5 - 15.0 % [facility] Hematocrit (Bld) [Volume fraction] 28.1 % Low 37.0 - 54.0 % [facility] Hemoglobin (Bld) [Mass/Vol] 9.2 g/dL Low 12.5 - 16.5 g/dL [facility] Immature granulocytes (Bld) [#/Vol] 0.03 10*3/uL [facility] Immature granulocytes/100 WBC (Bld) 1 % 0.0 - 5.0 % [facility] Interpretation and review of laboratory results Abnormal [facility] Lymphocytes/100 WBC (Bld) 15 % Low 20.0 - 42.0 % [facility] Lymphocytes/100 WBC (Bld) 0.90 % Low [facility] MCH (RBC) [Entitic mass] 31.8 pg 26.0 - 35.0 pg [facility] MCHC (RBC) [Mass/Vol] 32.7 g/dL 32.0 - 34.5 g/dL [facility] MCV (RBC) [Entitic vol] 97.2 fL 80.0 - 99.9 fL [facility] Monocytes/100 WBC (Bld) 14 % High 2.0 - 12.0 % [facility] Monocytes/100 WBC (Bld) 0.84 % [facility] Neutrophils/100 WBC (Bld) 71 % 43.0 - 80.0 % [facility] Platelet mean volume (Bld) [Entitic vol] 10.5 fL 7.0 - 12.0 fL [facility] Platelet, Fluorescence 49 Low [facility] RBC (Bld) [#/Vol] 2.89 10*6/uL Low 3.80 - 5.8 0 m/uL [facility] Segmented neutrophils/100 WBC (Bld) 4.31 % [facility] WBC other (Bld) [#/Vol] 6.1 [facility] CBC with Diffon 07-30-2023 Abs. Basophil 0.02 k/uL Normal 0.00-0.20 [facility] Comment on above: Performed By: #### C MPX, CBCWD, PLCON #### [facility] [address] [place] [address] Concession Stand Attendant: Kemal Waterman MD Abs.Imm.Granulocyte 0.03 k/uL Normal 0.00-0.58 [facility] Comment on above: Performed By: #### C MPX, CBCWD, PLCON #### [facility] [address] [place] [address] Concession Stand Attendant: Kemal Waterman MD Abs.Neutrophil (Seg) 4.31 k/uL Normal 1.80-7.30 [facility] Comment on above: Performed By: #### C MPX, CBCWD, PLCON #### [address] [place] [address] Concession Stand Attendant: Kemal Waterman MD Basophils/100 WBC (Bld) 0 % Normal 0.0-2.0 [facility] Comment on above: Performed By: #### C MPX, CBCWD, PLCON #### [place] [address] Concession Stand Attendant: Kemal Waterman MD Eosinophils (Bld) [#/Vol] 0.02 10*3/uL Low 0.05-0.50 [facility] Comment on above: Performed By: #### C MPX, CBCWD, PLCON #### [place] [address] Concession Stand Attendant: Kemal Waterman MD Eosinophils/100 WBC (Bld) 0 % Normal 0-6 [facility] Comment on above: Performed By: #### C MPX, CBCWD, PLCON #### [place] [address] Concession Stand Attendant: Kemal Waterman MD Erythrocyte distribution width (RBC) [Ratio] 20.0 % High 11.5-15.0 [facility] Comment on above: Performed By: #### C MPX, CBCWD, PLCON #### [place] [address] Concession Stand Attendant: Kemal Waterman MD Hematocrit (Bld) [Volume fraction] 28.1 % Low 37.0-54.0 [facility] Comment on above: Performed By: #### C MPX, CBCWD, PLCON #### [address] [place] [address] Concession Stand Attendant: Kemal Waterman MD Hemoglobin (Bld) [Mass/Vol] 9.2 g/dL Low 12.5-16.5 [facility] Comment on above: Performed By: #### C MPX, CBCWD, PLCON #### [address] [place] [address] Concession Stand Attendant: Kemal Waterman MD Immature granulocytes/100 WBC (Bld) 1 % Normal 0.0-5.0 [facility] Comment on above: Performed By: #### C MPX, CBCWD, PLCON #### [address] [place] [address] Concession Stand Attendant: Kemal Waterman MD Lymphocytes (Bld) [#/Vol] 0.90 10*3/uL Low 1.50-4.00 [facility] Comment on above: Performed By: #### C MPX, CBCWD, PLCON #### [address] [place] [address] Concession Stand Attendant: Kemal Waterman MD Lymphocytes/100 WBC (Bld) 15 % Low 20.0-42.0 [facility] Comment on above: Performed By: #### C MPX, CBCWD, PLCON #### [address] [place] [address] Concession Stand Attendant: Kemal Waterman MD MCH (RBC) [Entitic mass] 31.8 pg Normal 26.0-35.0 [facility] Comment on above: Performed By: #### C MPX, CBCWD, PLCON #### [facility] [address] Concession Stand Attendant: Kemal Waterman MD MCHC (RBC) [Mass/Vol] 32.7 g/dL Normal 32.0-34.5 [facility] Comment on above: Performed By: #### C MPX, CBCWD, PLCON #### [address] [address] Concession Stand Attendant: Kemal Waterman MD MCV (RBC) [Entitic vol] 97.2 fL Normal 80.0-99.9 [facility] Comment on above: Performed By: #### C MPX, CBCWD, PLCON #### [address] [address] Concession Stand Attendant: Kemal Waterman MD Monocytes (Bld) [#/Vol] 0.84 10*3/uL Normal 0.10-0.95 [facility] Comment on above: Performed By: #### C MPX, CBCWD, PLCON #### [address] [address] Concession Stand Attendant: Kemal Waterman MD Monocytes/100 WBC (Bld) 14 % High 2.0-12.0 [facility] Comment on above: Performed By: #### C MPX, CBCWD, PLCON #### [place] [address] Concession Stand Attendant: Kemal Watemran MD Neutrophil (Seg) 71 % Normal 43.0-80.0 [facility] Comment on above: Performed By: #### C MPX, CBCWD, PLCON #### [address] [address] Concession Stand Attendant: Kemal Waterman MD Platelet mean volume (Bld) [Entitic vol] 10.5 fL Normal 7.0-12.0 [facility] Comment on above: Performed By: #### C MPX, CBCWD, PLCON #### [address] [place] [address] Concession Stand Attendant: Kemal Waterman MD Platelet, Fluoresc. 49 k/uL Low 130-450 [facility] Comment on above: Performed By: #### C MPX, CBCWD, PLCON #### [address] [place] [address] Concession Stand Attendant: Kemal Waterman MD RBC (Bld) [#/Vol] 2.89 10*6/uL Low 3.80-5.80 [facility] Comment on above: Performed By: #### C MPX, CBCWD, PLCON #### [address] [place] [address] Concession Stand Attendant: Kemal Waterman MD WBC (Bld) [#/Vol] 6.1 10*3/uL Normal 4.5-11.5 [facility] Comment on above: Performed By: #### C MPX, CBCWD, PLCON #### [address] [place] [address] Concession Stand Attendant: Kemal Waterman MD Comp Metabolic Pr/rfx MGon 0 - Albumin [Mass/Vol] 3.0 g/dL Low 3.5-5.2 [facility] Comment on above: Performed By: #### C MPX, CBCWD, PLCON #### [address] [place] [address] Concession Stand Attendant: Kemal Waterman MD Alkaline Phos 127 U/L Normal 40-129 [facility] Comment on above: Performed By: #### C MPX, CBCWD, PLCON #### [address] [place] [address] Concession Stand Attendant: Kemal Waterman MD ALT [Catalytic activity/Vol] 26 U/L Normal 0-40 [facility] Comment on above: Performed By: #### C MPX, CBCWD, PLCON #### [address] [place] [address] Concession Stand Attendant: Kemal Waterman MD Anion gap [Moles/Vol] 10 mmol/L Normal 7-16 [facility] Comment on above: Performed By: #### C MPX, CBCWD, PLCON #### [address] [place] [address] Concession Stand Attendant: Kemal Waterman MD AST [Catalytic activity/Vol] 78 U/L High 0-39 [facility] Comment on above: Performed By: #### C MPX, CBCWD, PLCON #### [place] [address] Concession Stand Attendant: Kemal Waterman MD Bilirubin [Mass/Vol] 2.7 mg/dL High 0.0-1.2 [facility] Comment on above: Performed By: #### C MPX, CBCWD, PLCON #### [address] [place] [address] Concession Stand Attendant: Kemal Waterman MD Calcium [Mass/Vol] 7.6 mg/dL Low 8.6-10.2 [facility] Comment on above: Performed By: #### C MPX, CBCWD, PLCON #### [address] [place] [address] Concession Stand Attendant: Kemal Waterman MD Chloride [Moles/Vol] 99 mmol/L Normal 98-107 [facility] Comment on above: Performed By: #### C MPX, CBCWD, PLCON #### [address] [place] [address] Concession Stand Attendant: Kemal Waterman MD CO2 [Moles/Vol] 23 mmol/L Normal 22-29 [facility] Comment on above: Performed By: #### C MPX, CBCWD, PLCON #### [address] [place] [address] Concession Stand Attendant: Kemal Waterman MD Creatinine [Mass/Vol] 0.8 mg/dL Normal 0.70-1.20 [facility] Comment on above: Performed By: #### C MPX, CBCWD, PLCON #### [address] [place] [address] Concession Stand Attendant: Kemal Waterman MD GFR/1.73 sq M.predicted among non-blacks MDRD (S/P/Bld) [Vol rate/Area] mL/min/{1.73_m2} Normal >60 [facility] Comment on above: Result Comment: These results are not intended for use in patients <18 years of age. eGFR results are calculated without a race factor using the 2020 CKD-EPI equation. Careful clinical correlation is recommended, particularly when comparing to results calculated using previous equations. The CKD-EPI equation is less accurate in patients with extremes of muscle mass, extra-renal metabolism of creatine, excessive creatine ingestion, or following therapy that affects renal tubular secretion. Performed By: #### C MPX, CBCWD, PLCON #### [address] [place] [address] Concession Stand Attendant: Kemal Waterman MD Glucose [Mass/Vol] 108 mg/dL High 74-99 [facility] Comment on above: Performed By: #### C MPX, CBCWD, PLCON #### [address] [place] [address] Concession Stand Attendant: Kemal Waterman MD Potassium [Moles/Vol] 3.7 mmol/L Normal 3.5-5.0 [facility] Comment on above: Performed By: #### C MPX, CBCWD, PLCON #### [address] [place], [place] [id number] Concession Stand Attendant: Kemal Waterman MD Protein [Mass/Vol] 5.8 g/dL Low 6.4-8.3 [facility] Comment on above: Performed By: #### C MPX, CBCWD, PLCON #### [address] [place] [address] Concession Stand Attendant: Kemal Waterman MD Sodium [Moles/Vol] 132 mmol/L Normal 132-146 [facility] Comment on above: Performed By: #### C MPX, CBCWD, PLCON #### [address] [place] [address] Concession Stand Attendant: Kemal Waterman MD Urea nitrogen [Mass/Vol] 13 mg/dL Normal 6-20 [facility] Comment on above: Performed By: #### C MPX, CBCWD, PLCON #### [address] [place] [address] Concession Stand Attendant: Kemal Waterman MD Comprehensive Metabolic Pane l w/ Reflex to MGon 07-30-2023 Albumin [Mass/Vol] 3.0 g/dL Low 3.5 - 5.2 g/dL [facility] ALP [Catalytic activity/Vol] 127 U/L 40 - 129 U/L [facility] ALT [Catalytic activity/Vol] 26 U/L 0 - 40 U/L [facility] Anion gap [Moles/Vol] 10 mmol/L 7 - 16 mmol/L [facility] AST [Catalytic activity/Vol] 78 U/L High 0 - 39 U/L [facility] Bilirubin [Mass/Vol] 2.7 mg/dL High 0.0 - 1 .2 mg/dL [facility] Calcium [Mass/Vol] 7.6 mg/dL Low 8.6 - 10. 2 mg/dL [facility] Chloride [Moles/Vol] 99 mmol/L 98 - 10 7 mmol/L [facility] CO2 [Moles/Vol] 23 mmol/L 22 - 29 mmol/L [facility] Creatinine [Mass/Vol] 0.8 mg/dL 0.70 - 1.20 mg/dL [facility] GFR/1.73 sq M.predicted MDRD (S/P/Bld) [Vol rate/Area] - PINF [facility] Comment on above: These results are not intended for use in patients <18 years of age. eGFR results are calculated without a race factor using the 2020 CKD-EPI equation. Careful clinical correlation is recommended, particularly when comparing to results calculated using previous equations. The CKD-EPI equation is less accurate in patients with extremes of muscle mass, extra-renal metabolism of creatine, excessive creatine ingestion, or following therapy that affects renal tubular secretion. Glucose [Mass/Vol] 108 mg/dL High 74 - 99 mg/dL [facility] Interpretation and review of laboratory results Abnormal [facility] Potassium [Moles/Vol] 3.7 mmol/L 3.5 - 5.0 mmol/L [facility] Protein [Mass/Vol] 5.8 g/dL Low 6.4 - 8.3 g/dL [facility] Sodium [Moles/Vol] 132 mmol/L 132 - 146 mmol/L [facility] Urea nitrogen [Mass/Vol] 13 mg/dL 6 - 20 mg/dL [facility] Platelet Confirmationon 07-17 Platelet Confirmation CONFIRMED Normal [facility] Comment on above: Performed By: #### C MPX, CBCWD, PLCON #### [facility] [address] [place] [address] Concession Stand Attendant: Kemal Waterman MD Platelet Confirmation CONFIRMED [facility] Ammoniaon 07-29-2023 Ammonia (P) [Moles/Vol] 71 umol/L High 16.0-60.0 [facility] Comment on above: Performed By: #### C MPX, CBCWD, PLCON #### [facility] [address] [place] [address] Concession Stand Attendant: Kemal Waterman MD Ammonia (P) [Moles/Vol] 71 umol/L High 16.0 - 60.0 umol/L [facility] Interpretation and review of laboratory results Abnormal [facility] CBC with Auto Differentialon 07-29-2023 Basophils (Bld) [#/Vol] 0.00 10*3/uL [facility] Basophils/100 WBC (Bld) 0 % 0.0 - 2.0 % [facility] Eosinophils (Bld) [#/Vol] 0.06 10*3/uL [facility] Eosinophils/100 WBC (Bld) 1 % 0 - 6 % [facility] Erythrocyte distribution width (RBC) [Ratio] 20.4 % High 11.5 - 15.0 % [facility] Hematocrit (Bld) [Volume fraction] 31.2 % Low 37.0 - 54.0 % [facility] Hemoglobin (Bld) [Mass/Vol] 10.2 g/dL Low 12.5 - 16.5 g/dL [facility] Interpretation and review of laboratory results Abnormal [facility] Lymphocytes/100 WBC (Bld) 1 % Low 20.0 - 42.0 % [facility] Lymphocytes/100 WBC (Bld) 0.06 % Low [facility] MCH (RBC) [Entitic mass] 32.0 pg 26.0 - 35.0 pg [facility] MCHC (RBC) [Mass/Vol] 32.7 g/dL 32.0 - 34.5 g/dL [facility] MCV (RBC) [Entitic vol] 97.8 fL 80.0 - 99.9 fL [facility] Monocytes/100 WBC (Bld) 7 % 2.0 - 12.0 % [facility] Monocytes/100 WBC (Bld) 0.51 % [facility] Neutrophils/100 WBC (Bld) 91 % High 43.0 - 80.0 % [facility] Platelet mean volume (Bld) [Entitic vol] 9.9 fL 7.0 - 12.0 fL [facility] Platelets (Bld) [#/Vol] 46 10*3/uL Low [facility] RBC (Bld) [#/Vol] 3.19 10*6/uL Low 3.80 - 5.8 0 m/uL [facility] RBC (Bld) [#/Vol] 2+ ANISOCYTOSIS [facility] RBC (Bld) [#/Vol] 1+ OVALOCYTES [facility] RBC (Bld) [#/Vol] 1+ POIKILOCYTOSIS [facility] RBC (Bld) [#/Vol] 1+ TARGET CELLS [facility] RBC (Bld) [#/Vol] 1+ TEARDROPS [facility] Segmented neutrophils/100 WBC (Bld) 6.67 % [facility] WBC other (Bld) [#/Vol] 7.3 [facility] CBC with Diffon 07-29-2023 Abs. Basophil 0.00 k/uL Normal 0.00-0.20 [facility] Comment on above: Performed By: #### C MPX, CBCWD, PLCON #### [place] [address] Concession Stand Attendant: Kemal Waterman MD Abs.Neutrophil (Seg) 6.67 k/uL Normal 1.80-7.30 [facility] Comment on above: Performed By: #### C MPX, CBCWD, PLCON #### [address] [id number] Concession Stand Attendant: Kemal Waterman MD Basophils/100 WBC (Bld) 0 % Normal 0.0-2.0 [facility] Comment on above: Performed By: #### C MPX, CBCWD, PLCON #### [address] [place] [address] Concession Stand Attendant: Kemal Waterman MD Eosinophils (Bld) [#/Vol] 0.06 10*3/uL Normal 0.05-0.50 [facility] Comment on above: Performed By: #### C MPX, CBCWD, PLCON #### [address] [place] [address] Concession Stand Attendant: Kemal Waterman MD Eosinophils/100 WBC (Bld) 1 % Normal 0-6 [facility] Comment on above: Performed By: #### C MPX, CBCWD, PLCON #### [address] [place] [address] Concession Stand Attendant: Kemal Waterman MD Lymphocytes (Bld) [#/Vol] 0.06 10*3/uL Low 1.50-4.00 [facility] Comment on above: Performed By: #### C MPX, CBCWD, PLCON #### [address] [place] [address] Concession Stand Attendant: Kemal Waterman MD Lymphocytes/100 WBC (Bld) 1 % Low 20.0-42.0 [facility] Comment on above: Performed By: #### C MPX, CBCWD, PLCON #### [address] [place] [address] Concession Stand Attendant: Kemal Waterman MD Monocytes (Bld) [#/Vol] 0.51 10*3/uL Normal 0.10-0.95 [facility] Comment on above: Performed By: #### C MPX, CBCWD, PLCON #### [address] [place] [address] Concession Stand Attendant: Kemal Waterman MD Monocytes/100 WBC (Bld) 7 % Normal 2.0-12.0 [facility] Comment on above: Performed By: #### C MPX, CBCWD, PLCON #### [address] [place] [address] Concession Stand Attendant: Kemal Waterman MD Neutrophil (Seg) 91 % High 43.0-80.0 [facility] Comment on above: Performed By: #### C MPX, CBCWD, PLCON #### [address] [place] [address] Concession Stand Attendant: Kemal Waterman MD RBC morphology finding Nom (Bld) 2+ Normal [facility] Comment on above: Result Comment: ANIS OCYTOSIS 1+ OVALOCYTES 1+ POIKILOCYTOSIS 1+ TARGET CELLS 1+ TEARDROPS Performed By: #### C MPX, CBCWD, PLCON #### [address] [place] [address] Concession Stand Attendant: Kemal Waterman MD Erythrocyte distribution width (RBC) [Ratio] 20.4 % High 11.5-15.0 [facility] Comment on above: Performed By: #### C MPX, CBCWD, PLCON #### [address] [place] [address] Concession Stand Attendant: Kemal Waterman MD Hematocrit (Bld) [Volume fraction] 31.2 % Low 37.0-54.0 [facility] Comment on above: Performed By: #### C MPX, CBCWD, PLCON #### [address] [place] [address] Concession Stand Attendant: Kemal Waterman MD Hemoglobin (Bld) [Mass/Vol] 10.2 g/dL Low 12.5-16.5 [facility] Comment on above: Performed By: #### C MPX, CBCWD, PLCON #### [address] [place] [address] Concession Stand Attendant: Kemal Waterman MD MCH (RBC) [Entitic mass] 32.0 pg Normal 26.0-35.0 [facility] Comment on above: Performed By: #### C MPX, CBCWD, PLCON #### [address] [place] [address] Concession Stand Attendant: Kemal Waterman MD MCHC (RBC) [Mass/Vol] 32.7 g/dL Normal 32.0-34.5 [facility] Comment on above: Performed By: #### C MPX, CBCWD, PLCON #### [address] [place] [address] Concession Stand Attendant: Kemal Waterman MD MCV (RBC) [Entitic vol] 97.8 fL Normal 80.0-99.9 [facility] Comment on above: Performed By: #### C MPX, CBCWD, PLCON #### [address] [place] [address] Concession Stand Attendant: Kemal Waterman MD Platelet mean volume (Bld) [Entitic vol] 9.9 fL Normal 7.0-12.0 [facility] Comment on above: Performed By: #### C MPX, CBCWD, PLCON #### [address] [place] [address] Concession Stand Attendant: Kemal Waterman MD Platelets (Bld) [#/Vol] 46 10*3/uL Low 130-450 [facility] Comment on above: Performed By: #### C MPX, CBCWD, PLCON #### [address] [place] [address] Concession Stand Attendant: Kemal Waterman MD RBC (Bld) [#/Vol] 3.19 10*6/uL Low 3.80-5.80 [facility] Comment on above: Performed By: #### C MPX, CBCWD, PLCON #### [address] [place] [address] Concession Stand Attendant: Kemal Waterman MD WBC (Bld) [#/Vol] 7.3 10*3/uL Normal 4.5-11.5 [facility] Comment on above: Performed By: #### C MPX, CBCWD, PLCON #### [address] [place] [address] Concession Stand Attendant: Kemal Waterman MD Comp Metabolic Pr/rfx MGon 0 - Albumin [Mass/Vol] 3.1 g/dL Low 3.5-5.2 [facility] Comment on above: Performed By: #### C MPX, CBCWD, PLCON #### [address] [place] [address] Concession Stand Attendant: Kemal Waterman MD Alkaline Phos 144 U/L High 40-129 [facility] Comment on above: Performed By: #### C MPX, CBCWD, PLCON #### [address] [address] Concession Stand Attendant: Kemal Waterman MD ALT [Catalytic activity/Vol] 23 U/L Normal 0-40 [facility] Comment on above: Performed By: #### C MPX, CBCWD, PLCON #### [address] [address] Concession Stand Attendant: Kemal Waterman MD Anion gap [Moles/Vol] 11 mmol/L Normal 7-16 [facility] Comment on above: Performed By: #### C MPX, CBCWD, PLCON #### [address] [place] [address] Concession Stand Attendant: Kemal Waterman MD AST [Catalytic activity/Vol] 54 U/L High 0-39 [facility] Comment on above: Performed By: #### C MPX, CBCWD, PLCON #### [address] [place] [address] Concession Stand Attendant: Kemal Waterman MD Bilirubin [Mass/Vol] 3.3 mg/dL High 0.0-1.2 [facility] Comment on above: Performed By: #### C MPX, CBCWD, PLCON #### [address] [place] [address] Concession Stand Attendant: Kemal Waterman MD Calcium [Mass/Vol] 8.1 mg/dL Low 8.6-10.2 [facility] Comment on above: Performed By: #### C MPX, CBCWD, PLCON #### [address] [place] [address] Concession Stand Attendant: Kemal Waterman MD Chloride [Moles/Vol] 103 mmol/L Normal 98-107 [facility] Comment on above: Performed By: #### C MPX, CBCWD, PLCON #### [address] [place] [address] Concession Stand Attendant: Kemal Waterman MD CO2 [Moles/Vol] 23 mmol/L Normal 22-29 [facility] Comment on above: Performed By: #### C MPX, CBCWD, PLCON #### [address] [place] [address] Concession Stand Attendant: Kemal Waterman MD Creatinine [Mass/Vol] 0.9 mg/dL Normal 0.70-1.20 [facility] Comment on above: Performed By: #### C MPX, CBCWD, PLCON #### [address] [address] Concession Stand Attendant: Kemal Waterman MD GFR/1.73 sq M.predicted among non-blacks MDRD (S/P/Bld) [Vol rate/Area] mL/min/{1.73_m2} Normal >60 [facility] Comment on above: Result Comment: These results are not intended for use in patients <18 years of age. eGFR results are calculated without a race factor using the 2020 CKD-EPI equation. Careful clinical correlation is recommended, particularly when comparing to results calculated using previous equations. The CKD-EPI equation is less accurate in patients with extremes of muscle mass, extra-renal metabolism of creatine, excessive creatine ingestion, or following therapy that affects renal tubular secretion. Performed By: #### C MPX, CBCWD, PLCON #### [address] [address] Concession Stand Attendant: Kemal Waterman MD Glucose [Mass/Vol] 86 mg/dL Normal 74-99 [facility] Comment on above: Performed By: #### C MPX, CBCWD, PLCON #### [address] [place] [address] Concession Stand Attendant: Kemal Waterman MD Potassium [Moles/Vol] 4.2 mmol/L Normal 3.5-5.0 [facility] Comment on above: Performed By: #### C MPX, CBCWD, PLCON #### [address] [address] Concession Stand Attendant: Kemal Waterman MD Protein [Mass/Vol] 6.0 g/dL Low 6.4-8.3 [facility] Comment on above: Performed By: #### C MPX, CBCWD, PLCON #### [address] [address] Concession Stand Attendant: Kemal Waterman MD Sodium [Moles/Vol] 137 mmol/L Normal 132-146 [facility] Comment on above: Performed By: #### C MPX, CBCWD, PLCON #### [address] [id number] Concession Stand Attendant: Kemal Waterman MD Urea nitrogen [Mass/Vol] 13 mg/dL Normal 6-20 [facility] Comment on above: Performed By: #### C MPX, CBCWD, PLCON #### [place] [id number] Concession Stand Attendant: Kemal Waterman MD Comprehensive Metabolic Pane l w/ Reflex to MGon 07-29-2023 Albumin [Mass/Vol] 3.1 g/dL Low 3.5 - 5.2 g/dL [facility] ALP [Catalytic activity/Vol] 144 U/L High 40 - 129 U/L [facility] ALT [Catalytic activity/Vol] 23 U/L 0 - 40 U/L [facility] Anion gap [Moles/Vol] 11 mmol/L 7 - 16 mmol/L [facility] AST [Catalytic activity/Vol] 54 U/L High 0 - 39 U/L [facility] Bilirubin [Mass/Vol] 3.3 mg/dL High 0.0 - 1 .2 mg/dL [facility] Calcium [Mass/Vol] 8.1 mg/dL Low 8.6 - 10. 2 mg/dL [facility] Chloride [Moles/Vol] 103 mmol/L 98 - 10 7 mmol/L [facility] CO2 [Moles/Vol] 23 mmol/L 22 - 29 mmol/L [facility] Creatinine [Mass/Vol] 0.9 mg/dL 0.70 - 1.20 mg/dL [facility] GFR/1.73 sq M.predicted MDRD (S/P/Bld) [Vol rate/Area] - PINF [facility] Comment on above: These results are not intended for use in patients <18 years of age. eGFR results are calculated without a race factor using the 2020 CKD-EPI equation. Careful clinical correlation is recommended, particularly when comparing to results calculated using previous equations. The CKD-EPI equation is less accurate in patients with extremes of muscle mass, extra-renal metabolism of creatine, excessive creatine ingestion, or following therapy that affects renal tubular secretion. Glucose [Mass/Vol] 86 mg/dL 74 - 99 mg/dL [facility] Interpretation and review of laboratory results Abnormal [facility] Potassium [Moles/Vol] 4.2 mmol/L 3.5 - 5.0 mmol/L [facility] Protein [Mass/Vol] 6.0 g/dL Low 6.4 - 8.3 g/dL [facility] Sodium [Moles/Vol] 137 mmol/L 132 - 146 mmol/L [facility] Urea nitrogen [Mass/Vol] 13 mg/dL 6 - 20 mg/dL [facility] Platelet Confirmationon 07-17 Platelet Confirmation CONFIRMED Normal [facility] Comment on above: Performed By: #### C MPX, CBCWD, PLCON #### [address] [address] Concession Stand Attendant: Kemal Waterman MD Platelet Confirmation CONFIRMED [facility] Resp Viral Panelon 4 Adenovirus Not detected Normal [facility] Comment on above: Performed By: #### A MON #### [address] [address] Concession Stand Attendant: Kemal Waterman MD [facility].parapertussis Not detected Normal [facility] Comment on above: Performed By: #### A MON #### [address] [place] [address] Concession Stand Attendant: Kemal Waterman MD Bordetella pertussis Not detected Normal [facility] Comment on above: Performed By: #### A MON #### [address] [place] [address] Concession Stand Attendant: Kemal Waterman MD Chlamyd.pneumoniae Not detected Normal [facility] Comment on above: Performed By: #### A MON #### [address] [place] [address] Concession Stand Attendant: Kemal Waterman MD Coronavirus 229E Not detected [facility] Comment on above: Performed By: #### A MON #### [address] [place] [address] Concession Stand Attendant: Kemal Waterman MD Coronavirus HKU1 Not detected Normal [facility] Comment on above: Performed By: #### A MON #### [address] [place] [address] Concession Stand Attendant: Kemal Waterman MD Coronavirus NL63 Not detected Normal [facility] Comment on above: Performed By: #### A MON #### [address] [place] [address] Concession Stand Attendant: Kemal Waterman MD Coronavirus OC43 Not detected Normal [facility] Comment on above: Performed By: #### A MON #### [address] [place] [address] Concession Stand Attendant: Kemal Waterman MD Human Metapneumo Not detected Normal [facility] Comment on above: Performed By: #### A MON #### [address] [place] [address] Concession Stand Attendant: Kemal Waterman MD Influenza A Not detected Normal [facility] Comment on above: Performed By: #### A MON #### [address] [place] [address] Concession Stand Attendant: Kemal Waterman MD Influenza B Not detected Normal [facility] Comment on above: Performed By: #### A MON #### [address] [place] [address] Concession Stand Attendant: Kemal Waterman MD Mycoplas.pneumoniae Not detected Normal [facility] Comment on above: Result Comment: Perf ormed by multiplexed nucleic acid assay. Performed By: #### A MON #### [address] [place] [address] Concession Stand Attendant: Kemal Waterman MD Parainfluenza 1 Not detected Normal [facility] Comment on above: Performed By: #### A MON #### [address] [place] [address] Concession Stand Attendant: Kemal Waterman MD Parainfluenza 2 Not detected Normal [facility] Comment on above: Performed By: #### A MON #### [address] [place] [address] Concession Stand Attendant: Kemal Waterman MD Parainfluenza 3 Not detected Normal [facility] Comment on above: Performed By: #### A MON #### [address] [place] [address] Concession Stand Attendant: Kemal Waterman MD Parainfluenza 4 Not detected Normal [facility] Comment on above: Performed By: #### A MON #### [address] [place] [address] Concession Stand Attendant: Kemal Waterman MD Resp Syncytial Virus Not detected Normal [facility] Comment on above: Performed By: #### A MON #### [address] [place] [address] Concession Stand Attendant: Kemal Waterman MD Rhino/Enterovirus Not detected Normal [facility] Comment on above: Performed By: #### A MON #### [address] [place] [address] Concession Stand Attendant: Kemal Waterman MD SARS-CoV-2 (COVID-19) RNA FOX+probe Ql (Unsp spec) Detected Abnormal [facility] Comment on above: Performed By: #### A MON #### [address] [place] [address] Concession Stand Attendant: Kemal Waterman MD Source: .NASOPHARYNGEAL SWAB Normal [facility] Comment on above: Performed By: #### A MON #### [address] [place] [address] Concession Stand Attendant: Kemal Waterman MD Respiratory Panel, Molecular , with COVID-19 (Restricted: peds pts or suitable admitted adults)on 07-29-2023 Adenovirus DNA FOX+non-probe Ql (Nph) Not detected Not Detected [facility] B. parapertussis [id number] DNA FOX+non-probe Ql (Nph) Not detected Not Detected [facility] B. pertussis DNA FOX+probe Ql (Unsp spec) Not detected Not Detected [facility] C. pneumoniae DNA FOX+non-probe Ql (Nph) Not detected Not Detected [facility] FLUAV RNA FOX+non-probe Ql (Nph) Not detected Not Detected [facility] FLUBV RNA FOX+non-probe Ql (Nph) Not detected Not Detected [facility] HCoV 229E RNA FOX+non-probe Ql (Nph) Not detected Not Detected [facility] HCoV HKU1 RNA FOX+non-probe Ql (Nph) Not detected Not Detected [facility] HCoV NL63 RNA FOX+non-probe Ql (Nph) Not detected Not Detected [facility] HCoV OC43 RNA FOX+non-probe Ql (Nph) Not detected Not Detected [facility] hMPV RNA FOX+non-probe Ql (Nph) Not detected Not Detected [facility] Interpretation and review of laboratory results Abnormal [facility] M. pneumoniae DNA FOX+non-probe Ql (Nph) Not detected Not Detected [facility] Comment on above: Performed by [employer] nucleic acid assay. Parainfluenza virus 1 RNA FOX+non-probe Ql (Nph) Not detected Not Detected [facility] Parainfluenza virus 2 RNA FOX+non-probe Ql (Nph) Not detected Not Detected [facility] Parainfluenza virus 3 RNA FOX+non-probe Ql (Nph) Not detected Not Detected [facility] Parainfluenza virus 4 RNA FOX+non-probe Ql (Nph) Not detected Not Detected [facility] Rhinovirus+Enteroviru s RNA FOX+non-probe Ql (Nph) Not detected Not Detected [facility] RSV RNA FOX+non-probe Ql (Nph) Not detected Not Detected [facility] SARS-CoV-2 (COVID-19) RNA FOX+non-probe Ql (Nph) Detected Abnormal Not Detected [facility] Specimen Description .NASOPHARYNGEAL SWAB [facility] Ammoniaon 07-28-2023 Ammonia (P) [Moles/Vol] 148 umol/L High 16.0-60.0 [facility] Comment on above: Performed By: #### C MPX, CBCWD, PLCON #### [facility] [address] [place] [address] Concession Stand Attendant: Kemal Waterman MD Ammonia (P) [Moles/Vol] 148 umol/L High 16.0 - 60.0 umol/L [facility] Interpretation and review of laboratory results Abnormal [facility] CBC with Auto Differentialon 07-28-2023 Basophils (Bld) [#/Vol] 0.04 10*3/uL [facility] Basophils/100 WBC (Bld) 1 % 0.0 - 2.0 % [facility] Eosinophils (Bld) [#/Vol] 0.23 10*3/uL [facility] Eosinophils/100 WBC (Bld) 5 % 0 - 6 % [facility] Erythrocyte distribution width (RBC) [Ratio] 21.0 % High 11.5 - 15.0 % [facility] Hematocrit (Bld) [Volume fraction] 32.5 % Low 37.0 - 54.0 % [facility] Hemoglobin (Bld) [Mass/Vol] 10.4 g/dL Low 12.5 - 16.5 g/dL [facility] Immature granulocytes (Bld) [#/Vol] [facility] Immature granulocytes/100 WBC (Bld) 0 % 0.0 - 5.0 % [facility] Interpretation and review of laboratory results Abnormal [facility] Lymphocytes/100 WBC (Bld) 26 % 20.0 - 42.0 % [facility] Lymphocytes/100 WBC (Bld) 1.25 % Low [facility] MCH (RBC) [Entitic mass] 31.7 pg 26.0 - 35.0 pg [facility] MCHC (RBC) [Mass/Vol] 32.0 g/dL 32.0 - 34.5 g/dL [facility] MCV (RBC) [Entitic vol] 99.1 fL 80.0 - 99.9 fL [facility] Monocytes/100 WBC (Bld) 13 % High 2.0 - 12.0 % [facility] Monocytes/100 WBC (Bld) 0.61 % [facility] Neutrophils/100 WBC (Bld) 56 % 43.0 - 80.0 % [facility] Platelet mean volume (Bld) [Entitic vol] 11.6 fL 7.0 - 12.0 fL [facility] Platelets (Bld) [#/Vol] 60 10*3/uL Low [facility] RBC (Bld) [#/Vol] 3.28 10*6/uL Low 3.80 - 5.8 0 m/uL [facility] Segmented neutrophils/100 WBC (Bld) 2.72 % [facility] WBC other (Bld) [#/Vol] 4.9 [facility] CBC with Diffon 07-28-2023 Abs. Basophil 0.04 k/uL Normal 0.00-0.20 [facility] Comment on above: Performed By: #### C MPX, CBCWD, PLCON #### [place] [address] Concession Stand Attendant: Kemal Waterman MD Abs.Imm.Granulocyte <0.03 Normal 0.00-0.58 [facility] Comment on above: Performed By: #### C MPX, CBCWD, PLCON #### [place] [address] Concession Stand Attendant: Kemal Waterman MD Abs.Neutrophil (Seg) 2.72 k/uL Normal 1.80-7.30 [facility] Comment on above: Performed By: #### C MPX, CBCWD, PLCON #### [place] [address] Concession Stand Attendant: Kemal Waterman MD Basophils/100 WBC (Bld) 1 % Normal 0.0-2.0 [facility] Comment on above: Performed By: #### C MPX, CBCWD, PLCON #### [place] [address] Concession Stand Attendant: Kemal Waterman MD Eosinophils (Bld) [#/Vol] 0.23 10*3/uL Normal 0.05-0.50 [facility] Comment on above: Performed By: #### C MPX, CBCWD, PLCON #### [address] [place] [address] Concession Stand Attendant: Kemal Waterman MD Eosinophils/100 WBC (Bld) 5 % Normal 0-6 [facility] Comment on above: Performed By: #### C MPX, CBCWD, PLCON #### [place] [address] Concession Stand Attendant: Kemal Waterman MD Immature granulocytes/100 WBC (Bld) 0 % Normal 0.0-5.0 [facility] Comment on above: Performed By: #### C MPX, CBCWD, PLCON #### [place] [address] Concession Stand Attendant: Kemal Waterman MD Lymphocytes (Bld) [#/Vol] 1.25 10*3/uL Low 1.50-4.00 [facility] Comment on above: Performed By: #### C MPX, CBCWD, PLCON #### [place] [address] Concession Stand Attendant: Kemal Waterman MD Lymphocytes/100 WBC (Bld) 26 % Normal 20.0-42.0 [facility] Comment on above: Performed By: #### C MPX, CBCWD, PLCON #### [place] [address] Concession Stand Attendant: Kemal Waterman MD Monocytes (Bld) [#/Vol] 0.61 10*3/uL Normal 0.10-0.95 [facility] Comment on above: Performed By: #### C MPX, CBCWD, PLCON #### [address] [place] [address] Concession Stand Attendant: Kemal Waterman MD Monocytes/100 WBC (Bld) 13 % High 2.0-12.0 [facility] Comment on above: Performed By: #### C MPX, CBCWD, PLCON #### [address] [place] [address] Concession Stand Attendant: Kemal Waterman MD Neutrophil (Seg) 56 % Normal 43.0-80.0 [facility] Comment on above: Performed By: #### C MPX, CBCWD, PLCON #### [address] [place] [address] Concession Stand Attendant: Kemal Waterman MD Erythrocyte distribution width (RBC) [Ratio] 21.0 % High 11.5-15.0 [facility] Comment on above: Performed By: #### C MPX, CBCWD, PLCON #### [address] [place] [address] Concession Stand Attendant: Kemal Waterman MD Hematocrit (Bld) [Volume fraction] 32.5 % Low 37.0-54.0 [facility] Comment on above: Performed By: #### C MPX, CBCWD, PLCON #### [address] [place] [address] Concession Stand Attendant: Kemal Waterman MD Hemoglobin (Bld) [Mass/Vol] 10.4 g/dL Low 12.5-16.5 [facility] Comment on above: Performed By: #### C MPX, CBCWD, PLCON #### [address] [address] Concession Stand Attendant: Kemal Waterman MD MCH (RBC) [Entitic mass] 31.7 pg Normal 26.0-35.0 [facility] Comment on above: Performed By: #### C MPX, CBCWD, PLCON #### [address] [place] [address] Concession Stand Attendant: Kemal Waterman MD MCHC (RBC) [Mass/Vol] 32.0 g/dL Normal 32.0-34.5 [facility] Comment on above: Performed By: #### C MPX, CBCWD, PLCON #### [address] [place] [address] Concession Stand Attendant: Kemal Waterman MD MCV (RBC) [Entitic vol] 99.1 fL Normal 80.0-99.9 [facility] Comment on above: Performed By: #### C MPX, CBCWD, PLCON #### [address] [place] [address] Concession Stand Attendant: Kemal Waterman MD Platelet mean volume (Bld) [Entitic vol] 11.6 fL Normal 7.0-12.0 [facility] Comment on above: Performed By: #### C MPX, CBCWD, PLCON #### [address] [place] [address] Concession Stand Attendant: Kemal Waterman MD Platelets (Bld) [#/Vol] 60 10*3/uL Low 130-450 [facility] Comment on above: Performed By: #### C MPX, CBCWD, PLCON #### [address] [address] Concession Stand Attendant: Kemal Waterman MD RBC (Bld) [#/Vol] 3.28 10*6/uL Low 3.80-5.80 [facility] Comment on above: Performed By: #### C MPX, CBCWD, PLCON #### [address] [place] [address] Concession Stand Attendant: Kemal Waterman MD WBC (Bld) [#/Vol] 4.9 10*3/uL Normal 4.5-11.5 [facility] Comment on above: Performed By: #### C MPX, CBCWD, PLCON #### [address] [place] [address] Concession Stand Attendant: Kemal Waterman MD Comp Metabolic Pr/rfx MGon 0 - Albumin [Mass/Vol] 3.0 g/dL Low 3.5-5.2 [facility] Comment on above: Performed By: #### C MPX, CBCWD, PLCON #### [place] [address] Concession Stand Attendant: Kemal Waterman MD Alkaline Phos 218 U/L High 40-129 [facility] Comment on above: Performed By: #### C MPX, CBCWD, PLCON #### [place] [address] Concession Stand Attendant: Kemal Waterman MD ALT [Catalytic activity/Vol] 21 U/L Normal 0-40 [facility] Comment on above: Performed By: #### C MPX, CBCWD, PLCON #### [address] [place] [address] Concession Stand Attendant: Kemal Waterman MD Anion gap [Moles/Vol] 10 mmol/L Normal 7-16 [facility] Comment on above: Performed By: #### C MPX, CBCWD, PLCON #### [address] [place] [address] Concession Stand Attendant: Kemal Waterman MD AST [Catalytic activity/Vol] 51 U/L High 0-39 [facility] Comment on above: Performed By: #### C MPX, CBCWD, PLCON #### [address] [place] [address] Concession Stand Attendant: Kemal Waterman MD Bilirubin [Mass/Vol] 2.1 mg/dL High 0.0-1.2 [facility] Comment on above: Performed By: #### C MPX, CBCWD, PLCON #### [address] [place] [address] Concession Stand Attendant: Kemal Waterman MD Calcium [Mass/Vol] 7.6 mg/dL Low 8.6-10.2 [facility] Comment on above: Performed By: #### C MPX, CBCWD, PLCON #### [address] [place] [address] Concession Stand Attendant: Kemal Waterman MD Chloride [Moles/Vol] 102 mmol/L Normal 98-107 [facility] Comment on above: Performed By: #### C MPX, CBCWD, PLCON #### [address] [place] [address] Concession Stand Attendant: Kemal Waterman MD CO2 [Moles/Vol] 24 mmol/L Normal 22-29 [facility] Comment on above: Performed By: #### C MPX, CBCWD, PLCON #### [address] [place] [address] Concession Stand Attendant: Kemal Waterman MD Creatinine [Mass/Vol] 0.8 mg/dL Normal 0.70-1.20 [facility] Comment on above: Performed By: #### C MPX, CBCWD, PLCON #### [address] [place] [address] Concession Stand Attendant: Kemal Waterman MD GFR/1.73 sq M.predicted among non-blacks MDRD (S/P/Bld) [Vol rate/Area] mL/min/{1.73_m2} Normal >60 [facility] Comment on above: Result Comment: These results are not intended for use in patients <18 years of age. eGFR results are calculated without a race factor using the 2020 CKD-EPI equation. Careful clinical correlation is recommended, particularly when comparing to results calculated using previous equations. The CKD-EPI equation is less accurate in patients with extremes of muscle mass, extra-renal metabolism of creatine, excessive creatine ingestion, or following therapy that affects renal tubular secretion. Performed By: #### C MPX, CBCWD, PLCON #### [address] [address] Concession Stand Attendant: Kemal Waterman MD Glucose [Mass/Vol] 90 mg/dL Normal 74-99 [facility] Comment on above: Performed By: #### C MPX, CBCWD, PLCON #### [address] [place] [address] Concession Stand Attendant: Kemal Waterman MD Potassium [Moles/Vol] 4.2 mmol/L Normal 3.5-5.0 [facility] Comment on above: Performed By: #### C MPX, CBCWD, PLCON #### [address] [place] [address] Concession Stand Attendant: Kemal Waterman MD Protein [Mass/Vol] 5.7 g/dL Low 6.4-8.3 [facility] Comment on above: Performed By: #### C MPX, CBCWD, PLCON #### [address] [address] Concession Stand Attendant: Kemal Waterman MD Sodium [Moles/Vol] 136 mmol/L Normal 132-146 [facility] Comment on above: Performed By: #### C MPX, CBCWD, PLCON #### [facility] [address] [place] [address] Concession Stand Attendant: Kemal Waterman MD Urea nitrogen [Mass/Vol] 10 mg/dL Normal 6-20 [facility] Comment on above: Performed By: #### C MPX, CBCWD, PLCON #### [facility] [address] [facility] [place] [address] Concession Stand Attendant: Kemal Waterman MD Comprehensive Metabolic Pane l w/ Reflex to MGon 07-28-2023 Albumin [Mass/Vol] 3.0 g/dL Low 3.5 - 5.2 g/dL [facility] ALP [Catalytic activity/Vol] 218 U/L High 40 - 129 U/L [facility] ALT [Catalytic activity/Vol] 21 U/L 0 - 40 U/L [facility] Anion gap [Moles/Vol] 10 mmol/L 7 - 16 mmol/L [facility] AST [Catalytic activity/Vol] 51 U/L High 0 - 39 U/L [facility] Bilirubin [Mass/Vol] 2.1 mg/dL High 0.0 - 1 .2 mg/dL [facility] Calcium [Mass/Vol] 7.6 mg/dL Low 8.6 - 10. 2 mg/dL [facility] Chloride [Moles/Vol] 102 mmol/L 98 - 10 7 mmol/L [facility] CO2 [Moles/Vol] 24 mmol/L 22 - 29 mmol/L [facility] Creatinine [Mass/Vol] 0.8 mg/dL 0.70 - 1.20 mg/dL [facility] GFR/1.73 sq M.predicted MDRD (S/P/Bld) [Vol rate/Area] - PINF [facility] Comment on above: These results are not intended for use in patients <18 years of age. eGFR results are calculated without a race factor using the 2020 CKD-EPI equation. Careful clinical correlation is recommended, particularly when comparing to results calculated using previous equations. The CKD-EPI equation is less accurate in patients with extremes of muscle mass, extra-renal metabolism of creatine, excessive creatine ingestion, or following therapy that affects renal tubular secretion. Glucose [Mass/Vol] 90 mg/dL 74 - 99 mg/dL [facility] Interpretation and review of laboratory results Abnormal [facility] Potassium [Moles/Vol] 4.2 mmol/L 3.5 - 5.0 mmol/L [facility] Protein [Mass/Vol] 5.7 g/dL Low 6.4 - 8.3 g/dL [facility] Sodium [Moles/Vol] 136 mmol/L 132 - 146 mmol/L [facility] Urea nitrogen [Mass/Vol] 10 mg/dL 6 - 20 mg/dL [facility] Platelet Confirmationon 07-17 Platelet Confirmation CONFIRMED Normal [facility] Comment on above: Performed By: #### C MPX, CBCWD, PLCON #### [place] [id number] Concession Stand Attendant: Kemal Waterman MD Platelet Confirmation CONFIRMED [facility] TYPE AND SCREENon 07-28-2023 ABO and Rh group Nom (Bld) Blood group O Rh(D) positive [facility] Arm Band Number [id number] [facility] Blood Bank Sample Expiration 07/30/2023,2359 [facility] Blood group antibodies identified Nom Negative [facility] Type + Screenon 07-28-2023 Type + Screen Sample Expiration 07/30/2023,2359 Arm Band Number [id number] ABO/Rh(D) O POSITIVE Antibody Screen NEGATIVE Normal [facility] Comment on above: Performed By: #### C MPX, CBCWD, PLCON #### [address] [address] Concession Stand Attendant: Kemal Waterman MD CBC with Auto Differentialon 07-27-2023 Basophils (Bld) [#/Vol] 0.04 10*3/uL [facility] Basophils/100 WBC (Bld) 1 % 0.0 - 2.0 % [facility] Eosinophils (Bld) [#/Vol] 0.23 10*3/uL [facility] Eosinophils/100 WBC (Bld) 5 % 0 - 6 % [facility] Erythrocyte distribution width (RBC) [Ratio] 20.5 % High 11.5 - 15.0 % [facility] Hematocrit (Bld) [Volume fraction] 32.1 % Low 37.0 - 54.0 % [facility] Hemoglobin (Bld) [Mass/Vol] 10.3 g/dL Low 12.5 - 16.5 g/dL [facility] Immature granulocytes (Bld) [#/Vol] [facility] Immature granulocytes/100 WBC (Bld) 0 % 0.0 - 5.0 % [facility] Interpretation and review of laboratory results Abnormal [facility] Lymphocytes/100 WBC (Bld) 25 % 20.0 - 42.0 % [facility] Lymphocytes/100 WBC (Bld) 1.20 % Low [facility] MCH (RBC) [Entitic mass] 31.5 pg 26.0 - 35.0 pg [facility] MCHC (RBC) [Mass/Vol] 32.1 g/dL 32.0 - 34.5 g/dL [facility] MCV (RBC) [Entitic vol] 98.2 fL 80.0 - 99.9 fL [facility] Monocytes/100 WBC (Bld) 13 % High 2.0 - 12.0 % [facility] Monocytes/100 WBC (Bld) 0.62 % [facility] Neutrophils/100 WBC (Bld) 56 % 43.0 - 80.0 % [facility] Platelet mean volume (Bld) [Entitic vol] 10.1 fL 7.0 - 12.0 fL [facility] Platelets (Bld) [#/Vol] 53 10*3/uL Low [facility] RBC (Bld) [#/Vol] 3.27 10*6/uL Low 3.80 - 5.8 0 m/uL [facility] RBC (Bld) [#/Vol] 3+ ANISOCYTOSIS [facility] RBC (Bld) [#/Vol] 1+ OVALOCYTES [facility] RBC (Bld) [#/Vol] 1+ POIKILOCYTOSIS [facility] RBC (Bld) [#/Vol] 1+ POLYCHROMASIA B ON [facility] RBC (Bld) [#/Vol] 1+ TARGET CELLS [facility] RBC (Bld) [#/Vol] 1+ TEARDROPS [facility] Segmented neutrophils/100 WBC (Bld) 2.62 % [facility] WBC other (Bld) [#/Vol] 4.7 [facility] CBC with Diffon 07-27-2023 RBC morphology finding Nom (Bld) 3+ Normal [facility] Comment on above: Result Comment: ANIS OCYTOSIS 1+ OVALOCYTES 1+ POIKILOCYTOSIS 1+ POLYCHROMASIA 1+ TARGET CELLS 1+ TEARDROPS Performed By: #### C MPX, CBCWD, PLCON #### [place] [address] Concession Stand Attendant: Kemal Waterman MD Abs. Basophil 0.04 k/uL Normal 0.00-0.20 [facility] Comment on above: Performed By: #### C MPX, CBCWD, PLCON #### [place] [address] Concession Stand Attendant: Kemal Waterman MD Abs.Imm.Granulocyte <0.03 Normal 0.00-0.58 [facility] Comment on above: Performed By: #### C MPX, CBCWD, PLCON #### [place] [address] Concession Stand Attendant: Kemal Waterman MD Abs.Neutrophil (Seg) 2.62 k/uL Normal 1.80-7.30 [facility] Comment on above: Performed By: #### C MPX, CBCWD, PLCON #### [address] [place] [address] Concession Stand Attendant: Kemal Waterman MD Basophils/100 WBC (Bld) 1 % Normal 0.0-2.0 [facility] Comment on above: Performed By: #### C MPX, CBCWD, PLCON #### [address] [place] [address] Concession Stand Attendant: Kemal Waterman MD Eosinophils (Bld) [#/Vol] 0.23 10*3/uL Normal 0.05-0.50 [facility] Comment on above: Performed By: #### C MPX, CBCWD, PLCON #### [address] [place] [address] Concession Stand Attendant: Kemal Waterman MD Eosinophils/100 WBC (Bld) 5 % Normal 0-6 [facility] Comment on above: Performed By: #### C MPX, CBCWD, PLCON #### [address] [place] [address] Concession Stand Attendant: Kemal Waterman MD Immature granulocytes/100 WBC (Bld) 0 % Normal 0.0-5.0 [facility] Comment on above: Performed By: #### C MPX, CBCWD, PLCON #### [address] [place] [address] Concession Stand Attendant: Kemal Waterman MD Lymphocytes (Bld) [#/Vol] 1.20 10*3/uL Low 1.50-4.00 [facility] Comment on above: Performed By: #### C MPX, CBCWD, PLCON #### [address] [place] [address] Concession Stand Attendant: Kemal Waterman MD Lymphocytes/100 WBC (Bld) 25 % Normal 20.0-42.0 [facility] Comment on above: Performed By: #### C MPX, CBCWD, PLCON #### [address] [place] [address] Concession Stand Attendant: Kemal Waterman MD Monocytes (Bld) [#/Vol] 0.62 10*3/uL Normal 0.10-0.95 [facility] Comment on above: Performed By: #### C MPX, CBCWD, PLCON #### [place] [address] Concession Stand Attendant: Kemal Waterman MD Monocytes/100 WBC (Bld) 13 % High 2.0-12.0 [facility] Comment on above: Performed By: #### C MPX, CBCWD, PLCON #### [place] [address] Concession Stand Attendant: Kemal Waterman MD Neutrophil (Seg) 56 % Normal 43.0-80.0 [facility] Comment on above: Performed By: #### C MPX, CBCWD, PLCON #### [place] [address] Concession Stand Attendant: Kemal Waterman MD Erythrocyte distribution width (RBC) [Ratio] 20.5 % High 11.5-15.0 [facility] Comment on above: Performed By: #### C MPX, CBCWD, PLCON #### [place] [address] Concession Stand Attendant: Kemal Waterman MD Hematocrit (Bld) [Volume fraction] 32.1 % Low 37.0-54.0 [facility] Comment on above: Performed By: #### C MPX, CBCWD, PLCON #### [address] [place] [address] Concession Stand Attendant: Kemal Waterman MD Hemoglobin (Bld) [Mass/Vol] 10.3 g/dL Low 12.5-16.5 [facility] Comment on above: Performed By: #### C MPX, CBCWD, PLCON #### [address] [place] [address] Concession Stand Attendant: Kemal Waterman MD MCH (RBC) [Entitic mass] 31.5 pg Normal 26.0-35.0 [facility] Comment on above: Performed By: #### C MPX, CBCWD, PLCON #### [address] [address] Concession Stand Attendant: Kemal Waterman MD MCHC (RBC) [Mass/Vol] 32.1 g/dL Normal 32.0-34.5 [facility] Comment on above: Performed By: #### C MPX, CBCWD, PLCON #### [address] [address] Concession Stand Attendant: Kemal Waterman MD MCV (RBC) [Entitic vol] 98.2 fL Normal 80.0-99.9 [facility] Comment on above: Performed By: #### C MPX, CBCWD, PLCON #### [address] [place] [address] Concession Stand Attendant: Kemal Waterman MD Platelet mean volume (Bld) [Entitic vol] 10.1 fL Normal 7.0-12.0 [facility] Comment on above: Performed By: #### C MPX, CBCWD, PLCON #### [address] [address] Concession Stand Attendant: Kemal Waterman MD Platelets (Bld) [#/Vol] 53 10*3/uL Low 130-450 [facility] Comment on above: Performed By: #### C MPX, CBCWD, PLCON #### [address] [place] [address] Concession Stand Attendant: Kemal Waterman MD RBC (Bld) [#/Vol] 3.27 10*6/uL Low 3.80-5.80 [facility] Comment on above: Performed By: #### C MPX, CBCWD, PLCON #### [address] [place] [address] Concession Stand Attendant: Kemal Waterman MD WBC (Bld) [#/Vol] 4.7 10*3/uL Normal 4.5-11.5 [facility] Comment on above: Performed By: #### C MPX, CBCWD, PLCON #### [address] [place] [address] Concession Stand Attendant: Kemal Waterman MD CT CERVICAL SPINE WO CONTRAS Ton 07-27-2023 CT CERVICAL SPINE WO CONTRAST EXAMINATION: CT OF THE CERVICAL SPINE WITHOUT CONTRAST 07/27/2023 1:23 pm TECHNIQUE: CT of the cervical spine was performed without the administration of intravenous contrast. Multiplanar reformatted images are provided for review. Automated exposure control, iterative reconstruction, and/or weight based adjustment of the mA/kV was utilized to reduce the radiation dose to as low as reasonably achievable. COMPARISON: None. HISTORY: ORDERING SYSTEM PROVIDED HISTORY: trauma TECHNOLOGIST PROVIDED HISTORY: Reason for exam:->trauma Decision Support Exception - unselect if not a suspected or confirmed emergency medical condition->Emergency Medical Condition ([place]) What reading provider will be dictating this exam?->CRC FINDINGS: BONES/ALIGNMENT: There is no acute fracture or traumatic malalignment. DEGENERATIVE CHANGES: Mild loss of disc height with small disc osteophyte complex at C5-6. Mild central canal stenosis at C5-6. Moderate right and mild left neural foraminal stenoses at C5-6. SOFT TISSUES: There is no prevertebral soft tissue swelling. IMPRESSION: 1. No fracture or joint dislocation is seen. 2. Degenerative changes, as described. Interpreted by: Dania Rodas MD Signed by: Dania Rodas MD 07/27/23 Final result Normal [facility] Comment on above: Order Comment: Reaso n for exam:->traumaDecision Support Exception - unselect if not a suspected or confirmed emergency medical condition->Emergency Medical Condition ([place])What reading provider will be dictating this exam?->CRC CT Cervical spine WO contras ton 07-27-2023 1. No fracture or nadira int dislocation is seen. 2. Degenerative changes, as described. [facility] EXAMINATION: CT OF THE CERVICAL SPINE WITHOUT CONTRAST 07/27/2023 1:23 pm TECHNIQUE: CT of the cervical spine was performed without the administration of intravenous contrast. Multiplanar reformatted images are provided for review. Automated exposure control, iterative reconstruction, and/or weight based adjustment of the mA/kV was utilized to reduce the radiation dose to as low as reasonably achievable. COMPARISON: None. HISTORY: ORDERING SYSTEM PROVIDED HISTORY: trauma TECHNOLOGIST PROVIDED HISTORY: Reason for exam:->trauma Decision Support Exception - unselect if not a suspected or confirmed emergency medical condition->Emergency Medical Condition ([place]) What reading provider will be dictating this exam?->CRC FINDINGS: BONES/ALIGNMENT: There is no acute fracture or traumatic malalignment. DEGENERATIVE CHANGES: Mild loss of disc height with small disc osteophyte complex at C5-6. Mild central canal stenosis at C5-6. Moderate right and mild left neural foraminal stenoses at C5-6. SOFT TISSUES: There is no prevertebral soft tissue swelling. [facility] Dania Rodas MD - 07/27/2023 EXAMINATION: CT OF THE CERVICAL SPINE WITHOUT CONTRAST 07/27/2023 1:23 pm TECHNIQUE: CT of the cervical spine was performed without the administration of intravenous contrast. Multiplanar reformatted images are provided for review. Automated exposure control, iterative reconstruction, and/or weight based adjustment of the mA/kV was utilized to reduce the radiation dose to as low as reasonably achievable. COMPARISON: None. HISTORY: ORDERING SYSTEM PROVIDED HISTORY: trauma TECHNOLOGIST PROVIDED HISTORY: Reason for exam:->trauma Decision Support Exception - unselect if not a suspected or confirmed emergency medical condition->Emergency Medical Condition ([place]) What reading provider will be dictating this exam?->CRC FINDINGS: BONES/ALIGNMENT: There is no acute fracture or traumatic malalignment. DEGENERATIVE CHANGES: Mild loss of disc height with small disc osteophyte complex at C5-6. Mild central canal stenosis at C5-6. Moderate right and mild left neural foraminal stenoses at C5-6. SOFT TISSUES: There is no prevertebral soft tissue swelling. IMPRESSION: 1. No fracture or joint dislocation is seen. 2. Degenerative changes, as described. [facility] CT HEAD WO CONTRASTon 2023 CT HEAD WO CONTRAST EXAMINATION: CT OF THE HEAD WITHOUT CONTRAST 07/27/2023 1:23 pm TECHNIQUE: CT of the head was performed without the administration of intravenous contrast. Automated exposure control, iterative reconstruction, and/or weight based adjustment of the mA/kV was utilized to reduce the radiation dose to as low as reasonably achievable. COMPARISON: None. HISTORY: ORDERING SYSTEM PROVIDED HISTORY: Trauma TECHNOLOGIST PROVIDED HISTORY: Has a code stroke or stroke alert been called?->No Reason for exam:->Trauma Decision Support Exception - unselect if not a suspected or confirmed emergency medical condition->Emergency Medical Condition ([place]) What reading provider will be dictating this exam?->CRC FINDINGS: BRAIN/VENTRICLES: There is no acute intracranial hemorrhage, mass effect or midline shift. No abnormal extra-axial fluid collection. The orozco-white differentiation is maintained without evidence of an acute infarct. There is no evidence of hydrocephalus. ORBITS: The visualized portion of the orbits demonstrate no acute abnormality. SINUSES: The visualized paranasal sinuses and mastoid air cells demonstrate no acute abnormality. SOFT TISSUES/SKULL: No acute abnormality of the visualized skull or soft tissues. IMPRESSION: No skull fracture or acute intracranial abnormality. Interpreted by: Dania Rodas MD Singh, Supreet, MD Signed by: Dania Rodas MD 07/27/23 Final result Normal [facility] Comment on above: Order Comment: Has a code stroke or stroke alert been called?->NoReason for exam:->TraumaDecision Support Exception - unselect if not a suspected or confirmed emergency medical condition->Emergency Medical Condition ([place])What reading provider will be dictating this exam?->CRC CT Head WO contraston 2023 No skull fracture or acute intracranial abnormality. [facility] EXAMINATION: CT OF THE HEAD WITHOUT CONTRAST 07/27/2023 1:23 pm TECHNIQUE: CT of the head was performed without the administration of intravenous contrast. Automated exposure control, iterative reconstruction, and/or weight based adjustment of the mA/kV was utilized to reduce the radiation dose to as low as reasonably achievable. COMPARISON: None. HISTORY: ORDERING SYSTEM PROVIDED HISTORY: Trauma TECHNOLOGIST PROVIDED HISTORY: Has a code stroke or stroke alert been called?->No Reason for exam:->Trauma Decision Support Exception - unselect if not a suspected or confirmed emergency medical condition->Emergency Medical Condition ([place]) What reading provider will be dictating this exam?->CRC FINDINGS: BRAIN/VENTRICLES: There is no acute intracranial hemorrhage, mass effect or midline shift. No abnormal extra-axial fluid collection. The orozco-white differentiation is maintained without evidence of an acute infarct. There is no evidence of hydrocephalus. ORBITS: The visualized portion of the orbits demonstrate no acute abnormality. SINUSES: The visualized paranasal sinuses and mastoid air cells demonstrate no acute abnormality. SOFT TISSUES/SKULL: No acute abnormality of the visualized skull or soft tissues. [facility] Dania Rodas MD - 07/27/2023 EXAMINATION: CT OF THE HEAD WITHOUT CONTRAST 07/27/2023 1:23 pm TECHNIQUE: CT of the head was performed without the administration of intravenous contrast. Automated exposure control, iterative reconstruction, and/or weight based adjustment of the mA/kV was utilized to reduce the radiation dose to as low as reasonably achievable. COMPARISON: None. HISTORY: ORDERING SYSTEM PROVIDED HISTORY: Trauma TECHNOLOGIST PROVIDED HISTORY: Has a code stroke or stroke alert been called?->No Reason for exam:->Trauma Decision Support Exception - unselect if not a suspected or confirmed emergency medical condition->Emergency Medical Condition ([place]) What reading provider will be dictating this exam?->CRC FINDINGS: BRAIN/VENTRICLES: There is no acute intracranial hemorrhage, mass effect or midline shift. No abnormal extra-axial fluid collection. The orozco-white differentiation is maintained without evidence of an acute infarct. There is no evidence of hydrocephalus. ORBITS: The visualized portion of the orbits demonstrate no acute abnormality. SINUSES: The visualized paranasal sinuses and mastoid air cells demonstrate no acute abnormality. SOFT TISSUES/SKULL: No acute abnormality of the visualized skull or soft tissues. IMPRESSION: No skull fracture or acute intracranial abnormality. [facility] CT Head WO contrastOrdered B y: Dania Rodas on 07-27-2023 [facility] Work Phone: CT LUMBAR SPINE WO CONTRASTo n 07-27-2023 CT LUMBAR SPINE WO CONTRAST EXAMINATION: CT OF THE LUMBAR SPINE WITHOUT CONTRAST 07/27/2023 TECHNIQUE: CT of the lumbar spine was performed without the administration of intravenous contrast. Multiplanar reformatted images are provided for review. Adjustment of mA and/or kV according to patient size was utilized. Automated exposure control, iterative reconstruction, and/or weight based adjustment of the mA/kV was utilized to reduce the radiation dose to as low as reasonably achievable. COMPARISON: None HISTORY: ORDERING SYSTEM PROVIDED HISTORY: trauma TECHNOLOGIST PROVIDED HISTORY: Reason for exam:->trauma Decision Support Exception - unselect if not a suspected or confirmed emergency medical condition->Emergency Medical Condition ([place]) What reading provider will be dictating this exam?->CRC FINDINGS: BONES/ALIGNMENT: Age-indeterminate, possibly acute compression fracture deformity in the L2 vertebral body with approximately 30% loss of height. The remainder of the vertebral body heights are preserved. No lytic or blastic lesion. DEGENERATIVE CHANGES: Small disc bulges at L2-3 and L3-4 result in mild central canal stenoses. Mild to moderate neural foraminal stenoses at L4-5. SOFT TISSUES/RETROPERITONEUM: No paraspinal mass is seen. IMPRESSION: 1. Age-indeterminate, possibly acute compression fracture deformity in the L2 vertebral body with approximately 30% loss of height. If indicated, MRI may be obtained for further evaluation. 2. Mild degenerative changes. Interpreted by: Dania Rodas MD Singh, Supreet, MD Signed by: Dania Rodas MD 07/27/23 Final result Normal [facility] Comment on above: Order Comment: Reaso n for exam:->traumaDecision Support Exception - unselect if not a suspected or confirmed emergency medical condition->Emergency Medical Condition ([place])What reading provider will be dictating this exam?->CRC CT Lumbar spine WO contrasto n 07-27-2023 1. Age-indeterminate , possibly acute compression fracture deformity in the L2 vertebral body with approximately 30% loss of height. If indicated, MRI may be obtained for further evaluation. 2. Mild degenerative changes. [facility] EXAMINATION: CT OF THE LUMBAR SPINE WITHOUT CONTRAST 07/27/2023 TECHNIQUE: CT of the lumbar spine was performed without the administration of intravenous contrast. Multiplanar reformatted images are provided for review. Adjustment of mA and/or kV according to patient size was utilized. Automated exposure control, iterative reconstruction, and/or weight based adjustment of the mA/kV was utilized to reduce the radiation dose to as low as reasonably achievable. COMPARISON: None HISTORY: ORDERING SYSTEM PROVIDED HISTORY: trauma TECHNOLOGIST PROVIDED HISTORY: Reason for exam:->trauma Decision Support Exception - unselect if not a suspected or confirmed emergency medical condition->Emergency Medical Condition (MA) What reading provider will be dictating this exam?->CRC FINDINGS: BONES/ALIGNMENT: Age-indeterminate, possibly acute compression fracture deformity in the L2 vertebral body with approximately 30% loss of height. The remainder of the vertebral body heights are preserved. No lytic or blastic lesion. DEGENERATIVE CHANGES: Small disc bulges at L2-3 and L3-4 result in mild central canal stenoses. Mild to moderate neural foraminal stenoses at L4-5. SOFT TISSUES/RETROPERITONEUM: No paraspinal mass is seen. [facility] Dania Rodas MD - 07/27/2023 EXAMINATION: CT OF THE LUMBAR SPINE WITHOUT CONTRAST 07/27/2023 TECHNIQUE: CT of the lumbar spine was performed without the administration of intravenous contrast. Multiplanar reformatted images are provided for review. Adjustment of mA and/or kV according to patient size was utilized. Automated exposure control, iterative reconstruction, and/or weight based adjustment of the mA/kV was utilized to reduce the radiation dose to as low as reasonably achievable. COMPARISON: None HISTORY: ORDERING SYSTEM PROVIDED HISTORY: trauma TECHNOLOGIST PROVIDED HISTORY: Reason for exam:->trauma Decision Support Exception - unselect if not a suspected or confirmed emergency medical condition->Emergency Medical Condition (MA) What reading provider will be dictating this exam?->CRC FINDINGS: BONES/ALIGNMENT: Age-indeterminate, possibly acute compression fracture deformity in the L2 vertebral body with approximately 30% loss of height. The remainder of the vertebral body heights are preserved. No lytic or blastic lesion. DEGENERATIVE CHANGES: Small disc bulges at L2-3 and L3-4 result in mild central canal stenoses. Mild to moderate neural foraminal stenoses at L4-5. SOFT TISSUES/RETROPERITONEUM: No paraspinal mass is seen. IMPRESSION: 1. Age-indeterminate, possibly acute compression fracture deformity in the L2 vertebral body with approximately 30% loss of height. If indicated, MRI may be obtained for further evaluation. 2. Mild degenerative changes. [facility] CT THORACIC SPINE WO CONTRAS Ton 07-27-2023 CT THORACIC SPINE WO CONTRAST EXAMINATION: CT OF THE THORACIC SPINE WITHOUT CONTRAST 07/27/2023 1:23 pm: TECHNIQUE: CT of the thoracic spine was performed without the administration of intravenous contrast. Multiplanar reformatted images are provided for review. Automated exposure control, iterative reconstruction, and/or weight based adjustment of the mA/kV was utilized to reduce the radiation dose to as low as reasonably achievable. COMPARISON: None. HISTORY: ORDERING SYSTEM PROVIDED HISTORY: trauma TECHNOLOGIST PROVIDED HISTORY: Reason for exam:->trauma What reading provider will be dictating this exam?->CRC FINDINGS: BONES/ALIGNMENT: There is normal alignment of the spine. The vertebral body heights are maintained. No osseous destructive lesion is seen. DEGENERATIVE CHANGES: Prominent loss of disc height at T10-11. No significant central canal or neural foraminal stenosis evident by CT. SOFT TISSUES: No paraspinal mass is seen. IMPRESSION: No fracture or joint dislocation. Interpreted by: Dania Rodas MD Signed by: Dania Rodas MD 07/27/23 Final result Normal [facility] Comment on above: Order Comment: Reaso n for exam:->traumaWhat reading provider will be dictating this exam?->CRC CT Thoracic spine WO contras ton 07-27-2023 No fracture or joint dislocation. [facility] EXAMINATION: CT OF THE THORACIC SPINE WITHOUT CONTRAST 07/27/2023 1:23 pm: TECHNIQUE: CT of the thoracic spine was performed without the administration of intravenous contrast. Multiplanar reformatted images are provided for review. Automated exposure control, iterative reconstruction, and/or weight based adjustment of the mA/kV was utilized to reduce the radiation dose to as low as reasonably achievable. COMPARISON: None. HISTORY: ORDERING SYSTEM PROVIDED HISTORY: trauma TECHNOLOGIST PROVIDED HISTORY: Reason for exam:->trauma What reading provider will be dictating this exam?->CRC FINDINGS: BONES/ALIGNMENT: There is normal alignment of the spine. The vertebral body heights are maintained. No osseous destructive lesion is seen. DEGENERATIVE CHANGES: Prominent loss of disc height at T10-11. No significant central canal or neural foraminal stenosis evident by CT. SOFT TISSUES: No paraspinal mass is seen. [facility] Dania Worrell MD - 07/27/2023 EXAMINATION: CT OF THE THORACIC SPINE WITHOUT CONTRAST 07/27/2023 1:23 pm: TECHNIQUE: CT of the thoracic spine was performed without the administration of intravenous contrast. Multiplanar reformatted images are provided for review. Automated exposure control, iterative reconstruction, and/or weight based adjustment of the mA/kV was utilized to reduce the radiation dose to as low as reasonably achievable. COMPARISON: None. HISTORY: ORDERING SYSTEM PROVIDED HISTORY: trauma TECHNOLOGIST PROVIDED HISTORY: Reason for exam:->trauma What reading provider will be dictating this exam?->CRC FINDINGS: BONES/ALIGNMENT: There is normal alignment of the spine. The vertebral body heights are maintained. No osseous destructive lesion is seen. DEGENERATIVE CHANGES: Prominent loss of disc height at T10-11. No significant central canal or neural foraminal stenosis evident by CT. SOFT TISSUES: No paraspinal mass is seen. IMPRESSION: No fracture or joint dislocation. [facility] Comp Metabolic Profon 2023 Albumin [Mass/Vol] 3.1 g/dL Low 3.5-5.2 [facility] Comment on above: Performed By: #### C MPX, CBCWD, PLCON #### [address] [address] Concession Stand Attendant: Kemal Waterman MD Alkaline Phos 242 U/L High 40-129 [facility] Comment on above: Performed By: #### C MPX, CBCWD, PLCON #### [address] [address] Concession Stand Attendant: Kemal Waterman MD ALT [Catalytic activity/Vol] 21 U/L Normal 0-40 [facility] Comment on above: Performed By: #### C MPX, CBCWD, PLCON #### [facility] [address] [place] [address]. [place] [address] Concession Stand Attendant: Kemal Waterman MD Anion gap [Moles/Vol] 7 mmol/L Normal 7-16 [facility] Comment on above: Performed By: #### C MPX, CBCWD, PLCON #### [facility] [address] [place] [address] Concession Stand Attendant: Kemal Waterman MD AST [Catalytic activity/Vol] 51 U/L High 0-39 [facility] Comment on above: Performed By: #### C MPX, CBCWD, PLCON #### [place] [address] Concession Stand Attendant: Kemal Waterman MD Bilirubin [Mass/Vol] 2.1 mg/dL High 0.0-1.2 [facility] Comment on above: Performed By: #### C MPX, CBCWD, PLCON #### [place] [address] Concession Stand Attendant: Kemal Waterman MD Calcium [Mass/Vol] 7.7 mg/dL Low 8.6-10.2 [facility] Comment on above: Performed By: #### C MPX, CBCWD, PLCON #### [address] [place] [address] Concession Stand Attendant: Kemal Waterman MD Chloride [Moles/Vol] 105 mmol/L Normal 98-107 [facility] Comment on above: Performed By: #### C MPX, CBCWD, PLCON #### [address] [place] [address] Concession Stand Attendant: Kemal Waterman MD CO2 [Moles/Vol] 26 mmol/L Normal 22-29 [facility] Comment on above: Performed By: #### C MPX, CBCWD, PLCON #### [address] [place] [address] Concession Stand Attendant: Kemal Waterman MD Creatinine [Mass/Vol] 0.8 mg/dL Normal 0.70-1.20 [facility] Comment on above: Performed By: #### C MPX, CBCWD, PLCON #### [address] [place] [address] Concession Stand Attendant: Kemal Waterman MD GFR/1.73 sq M.predicted among non-blacks MDRD (S/P/Bld) [Vol rate/Area] mL/min/{1.73_m2} Normal >60 [facility] Comment on above: Result Comment: These results are not intended for use in patients <18 years of age. eGFR results are calculated without a race factor using the 2020 CKD-EPI equation. Careful clinical correlation is recommended, particularly when comparing to results calculated using previous equations. The CKD-EPI equation is less accurate in patients with extremes of muscle mass, extra-renal metabolism of creatine, excessive creatine ingestion, or following therapy that affects renal tubular secretion. Performed By: #### C MPX, CBCWD, PLCON #### [address] [place] [address] Concession Stand Attendant: Kemal Waterman MD Glucose [Mass/Vol] 100 mg/dL High 74-99 [facility] Comment on above: Performed By: #### C MPX, CBCWD, PLCON #### [address] [place] [address] Concession Stand Attendant: Kemal Waterman MD Potassium [Moles/Vol] 4.3 mmol/L Normal 3.5-5.0 [facility] Comment on above: Performed By: #### C MPX, CBCWD, PLCON #### [address] [place] [address] Concession Stand Attendant: Kemal Waterman MD Protein [Mass/Vol] 5.7 g/dL Low 6.4-8.3 [facility] Comment on above: Performed By: #### C MPX, CBCWD, PLCON #### [address] [place] [address] Concession Stand Attendant: Kemal Waterman MD Sodium [Moles/Vol] 138 mmol/L Normal 132-146 [facility] Comment on above: Performed By: #### C DINESHX, CBCWD, PLCON #### [address] [place] [address] Concession Stand Attendant: Kemal Waterman MD Urea nitrogen [Mass/Vol] 9 mg/dL Normal 6-20 [facility] Comment on above: Performed By: #### C MPX, CBCWD, PLCON #### [address] [address] Concession Stand Attendant: Kemal Waterman MD Comprehensive Metabolic Pane [facility] 07-27-2023 Albumin [Mass/Vol] 3.1 g/dL Low 3.5 - 5.2 g/dL [facility] ALP [Catalytic activity/Vol] 242 U/L High 40 - 129 U/L [facility] ALT [Catalytic activity/Vol] 21 U/L 0 - 40 U/L [facility] Anion gap [Moles/Vol] 7 mmol/L 7 - 16 mmol/L [facility] AST [Catalytic activity/Vol] 51 U/L High 0 - 39 U/L [facility] Bilirubin [Mass/Vol] 2.1 mg/dL High 0.0 - 1 .2 mg/dL [facility] Calcium [Mass/Vol] 7.7 mg/dL Low 8.6 - 10. 2 mg/dL [facility] Chloride [Moles/Vol] 105 mmol/L 98 - 10 7 mmol/L [facility] CO2 [Moles/Vol] 26 mmol/L 22 - 29 mmol/L [facility] Creatinine [Mass/Vol] 0.8 mg/dL 0.70 - 1.20 mg/dL [facility] GFR/1.73 sq M.predicted MDRD (S/P/Bld) [Vol rate/Area] - PINF [facility] Comment on above: These results are not intended for use in patients <18 years of age. eGFR results are calculated without a race factor using the 2020 CKD-EPI equation. Careful clinical correlation is recommended, particularly when comparing to results calculated using previous equations. The CKD-EPI equation is less accurate in patients with extremes of muscle mass, extra-renal metabolism of creatine, excessive creatine ingestion, or following therapy that affects renal tubular secretion. Glucose [Mass/Vol] 100 mg/dL High 74 - 99 mg/dL [facility] Interpretation and review of laboratory results Abnormal [facility] Potassium [Moles/Vol] 4.3 mmol/L 3.5 - 5.0 mmol/L [facility] Protein [Mass/Vol] 5.7 g/dL Low 6.4 - 8.3 g/dL [facility] Sodium [Moles/Vol] 138 mmol/L 132 - 146 mmol/L [facility] Urea nitrogen [Mass/Vol] 9 mg/dL 6 - 20 mg/dL [facility] MR Lumbar spine WO contrasto n 07-27-2023 Acute mild L2 compression fracture. No sign of any additional compression fractures. No signs of spinal stenosis or nerve root impingement. [facility] EXAMINATION: MRI OF THE LUMBAR SPINE WITHOUT CONTRAST, 07/27/2023 8:35 pm TECHNIQUE: Multiplanar multisequence MRI of the lumbar spine was performed without the administration of intravenous contrast. COMPARISON: CT of the lumbar spine from today. HISTORY: ORDERING SYSTEM PROVIDED HISTORY: spinal tenderness TECHNOLOGIST PROVIDED HISTORY: Reason for exam:->spinal tenderness What reading provider will be dictating this exam?->CRC FINDINGS: BONES/ALIGNMENT: There is normal alignment of the spine. There is an acute mild L2 compression fracture with moderate superior endplate fracture and moderate edema throughout the upper half of the vertebral body. No retropulsion of the posterior margin of L2, with no associated spinal canal narrowing. No additional compression fracture. No additional marrow signal abnormality. SPINAL CORD: The conus terminates normally. SOFT TISSUES: No paraspinal mass identified. L1-L2: There is no significant disc herniation, spinal canal stenosis or neural foraminal narrowing. L2-L3: Mild diffuse disc bulging without spinal stenosis. Moderate right and mild left foraminal zone disc bulging without contact with the exiting nerve roots. Normal disc height. L3-L4: Mild broad disc herniation with a small amount of disc material extruded inferiorly from the disc space, without spinal stenosis. Moderate left and mild right foraminal zone disc bulging without contact with the exiting nerve roots. Mild loss of disc height from disc degenerative disease. L4-L5: Mild diffuse disc bulging without spinal stenosis. Mild bilateral foraminal zone disc bulging without contact with the exiting nerve roots. Mild loss of disc height from disc degenerative disease. L5-S1: Minimal diffuse disc bulging without spinal stenosis. Mild right foraminal zone disc bulging without contact with the exiting nerve root. Normal left neural foramen. Normal disc height. [facility] Ta Desir MD - 07/27/2023 EXAMINATION: MRI OF THE LUMBAR SPINE WITHOUT CONTRAST, 07/27/2023 8:35 pm TECHNIQUE: Multiplanar multisequence MRI of the lumbar spine was performed without the administration of intravenous contrast. COMPARISON: CT of the lumbar spine from today. HISTORY: ORDERING SYSTEM PROVIDED HISTORY: spinal tenderness TECHNOLOGIST PROVIDED HISTORY: Reason for exam:->spinal tenderness What reading provider will be dictating this exam?->CRC FINDINGS: BONES/ALIGNMENT: There is normal alignment of the spine. There is an acute mild L2 compression fracture with moderate superior endplate fracture and moderate edema throughout the upper half of the vertebral body. No retropulsion of the posterior margin of L2, with no associated spinal canal narrowing. No additional compression fracture. No additional marrow signal abnormality. SPINAL CORD: The conus terminates normally. SOFT TISSUES: No paraspinal mass identified. L1-L2: There is no significant disc herniation, spinal canal stenosis or neural foraminal narrowing. L2-L3: Mild diffuse disc bulging without spinal stenosis. Moderate right and mild left foraminal zone disc bulging without contact with the exiting nerve roots. Normal disc height. L3-L4: Mild broad disc herniation with a small amount of disc material extruded inferiorly from the disc space, without spinal stenosis. Moderate left and mild right foraminal zone disc bulging without contact with the exiting nerve roots. Mild loss of disc height from disc degenerative disease. L4-L5: Mild diffuse disc bulging without spinal stenosis. Mild bilateral foraminal zone disc bulging without contact with the exiting nerve roots. Mild loss of disc height from disc degenerative disease. L5-S1: Minimal diffuse disc bulging without spinal stenosis. Mild right foraminal zone disc bulging without contact with the exiting nerve root. Normal left neural foramen. Normal disc height. IMPRESSION: Acute mild L2 compression fracture. No sign of any additional compression fractures. No signs of spinal stenosis or nerve root impingement. [facility] Radiology Study observation (narrative) [facility] MR Lumbar spine WO contrastO rdered By: Ta Desir on 07-27-2023 [facility] [employer] [facility] Work Phone: MR Thoracic spine WO contras ton 07-27-2023 1. No sign of acute osseous injury to the thoracic spine. 2. Mild old compression fracture of T9. 3. No sign of spinal stenosis. 4. Mild right lateral T8-9 disc bulge associated with mild flattening of the right anterior thoracic cord. [facility] EXAMINATION: MRI OF THE THORACIC SPINE WITHOUT CONTRAST 07/27/2023 8:36 pm TECHNIQUE: Multiplanar multisequence MRI of the thoracic spine was performed without the administration of intravenous contrast. COMPARISON: None. HISTORY: ORDERING SYSTEM PROVIDED HISTORY: spinal tenderness TECHNOLOGIST PROVIDED HISTORY: Reason for exam:->spinal tenderness What reading provider will be dictating this exam?->CRC FINDINGS: BONES/ALIGNMENT: There is normal alignment of the spine. There is mild anterior wedging of the T9 vertebral body, a mild old compression fracture. The rest of the vertebral bodies are normal in height. The bone marrow signal appears unremarkable. SPINAL CORD: No abnormal cord signal is seen. SOFT TISSUES: No paraspinal mass identified. DEGENERATIVE CHANGES: T6-7: Minimal right paramedian disc bulging without contact with the anterior thoracic cord, cord flattening, or spinal stenosis. No foraminal stenosis. Normal disc height. T8-9: Mild right lateral disc bulge associated with minimal flattening of the right anterior thoracic cord. No contact with the thoracic cord when the patient is supine, but the flattening indicates contact in the past or possibly when the patient is upright. No spinal stenosis. No foraminal stenosis. Normal disc height. T9-10: Normal disc. Mild right ligamentum flavum hypertrophy. T10-11: No disc bulge or herniation. No spinal stenosis. Moderate loss of disc height from disc degenerative disease. [facility] Ta Desir MD - 07/27/2023 EXAMINATION: MRI OF THE THORACIC SPINE WITHOUT CONTRAST 07/27/2023 8:36 pm TECHNIQUE: Multiplanar multisequence MRI of the thoracic spine was performed without the administration of intravenous contrast. COMPARISON: None. HISTORY: ORDERING SYSTEM PROVIDED HISTORY: spinal tenderness TECHNOLOGIST PROVIDED HISTORY: Reason for exam:->spinal tenderness What reading provider will be dictating this exam?->CRC FINDINGS: BONES/ALIGNMENT: There is normal alignment of the spine. There is mild anterior wedging of the T9 vertebral body, a mild old compression fracture. The rest of the vertebral bodies are normal in height. The bone marrow signal appears unremarkable. SPINAL CORD: No abnormal cord signal is seen. SOFT TISSUES: No paraspinal mass identified. DEGENERATIVE CHANGES: T6-7: Minimal right paramedian disc bulging without contact with the anterior thoracic cord, cord flattening, or spinal stenosis. No foraminal stenosis. Normal disc height. T8-9: Mild right lateral disc bulge associated with minimal flattening of the right anterior thoracic cord. No contact with the thoracic cord when the patient is supine, but the flattening indicates contact in the past or possibly when the patient is upright. No spinal stenosis. No foraminal stenosis. Normal disc height. T9-10: Normal disc. Mild right ligamentum flavum hypertrophy. T10-11: No disc bulge or herniation. No spinal stenosis. Moderate loss of disc height from disc degenerative disease. IMPRESSION: 1. No sign of acute osseous injury to the thoracic spine. 2. Mild old compression fracture of T9. 3. No sign of spinal stenosis. 4. Mild right lateral T8-9 disc bulge associated with mild flattening of the right anterior thoracic cord. [facility] Radiology Study observation (narrative) [facility] MRI LUMBAR SPINE WO CONTRAST on 07-27-2023 MRI LUMBAR SPINE WO CONTRAST EXAMINATION: MRI OF THE LUMBAR SPINE WITHOUT CONTRAST, 07/27/2023 8:35 pm TECHNIQUE: Multiplanar multisequence MRI of the lumbar spine was performed without the administration of intravenous contrast. COMPARISON: CT of the lumbar spine from today. HISTORY: ORDERING SYSTEM PROVIDED HISTORY: spinal tenderness TECHNOLOGIST PROVIDED HISTORY: Reason for exam:->spinal tenderness What reading provider will be dictating this exam?->CRC FINDINGS: BONES/ALIGNMENT: There is normal alignment of the spine. There is an acute mild L2 compression fracture with moderate superior endplate fracture and moderate edema throughout the upper half of the vertebral body. No retropulsion of the posterior margin of L2, with no associated spinal canal narrowing. No additional compression fracture. No additional marrow signal abnormality. SPINAL CORD: The conus terminates normally. SOFT TISSUES: No paraspinal mass identified. L1-L2: There is no significant disc herniation, spinal canal stenosis or neural foraminal narrowing. L2-L3: Mild diffuse disc bulging without spinal stenosis. Moderate right and mild left foraminal zone disc bulging without contact with the exiting nerve roots. Normal disc height. L3-L4: Mild broad disc herniation with a small amount of disc material extruded inferiorly from the disc space, without spinal stenosis. Moderate left and mild right foraminal zone disc bulging without contact with the exiting nerve roots. Mild loss of disc height from disc degenerative disease. L4-L5: Mild diffuse disc bulging without spinal stenosis. Mild bilateral foraminal zone disc bulging without contact with the exiting nerve roots. Mild loss of disc height from disc degenerative disease. L5-S1: Minimal diffuse disc bulging without spinal stenosis. Mild right foraminal zone disc bulging without contact with the exiting nerve root. Normal left neural foramen. Normal disc height. IMPRESSION: Acute mild L2 compression fracture. No sign of any additional compression fractures. No signs of spinal stenosis or nerve root impingement. Interpreted by: Ta Desir MD Signed by: Ta Desir MD 07/27/23 Final result Normal [facility] Comment on above: Order Comment: Reaso n for exam:->spinal tendernessWhat reading provider will be dictating this exam?->CRC MRI THORACIC SPINE WO CONTRA STon 07-27-2023 MRI THORACIC SPINE WO CONTRAST EXAMINATION: MRI OF THE THORACIC SPINE WITHOUT CONTRAST 07/27/2023 8:36 pm TECHNIQUE: Multiplanar multisequence MRI of the thoracic spine was performed without the administration of intravenous contrast. COMPARISON: None. HISTORY: ORDERING SYSTEM PROVIDED HISTORY: spinal tenderness TECHNOLOGIST PROVIDED HISTORY: Reason for exam:->spinal tenderness What reading provider will be dictating this exam?->CRC FINDINGS: BONES/ALIGNMENT: There is normal alignment of the spine. There is mild anterior wedging of the T9 vertebral body, a mild old compression fracture. The rest of the vertebral bodies are normal in height. The bone marrow signal appears unremarkable. SPINAL CORD: No abnormal cord signal is seen. SOFT TISSUES: No paraspinal mass identified. DEGENERATIVE CHANGES: T6-7: Minimal right paramedian disc bulging without contact with the anterior thoracic cord, cord flattening, or spinal stenosis. No foraminal stenosis. Normal disc height. T8-9: Mild right lateral disc bulge associated with minimal flattening of the right anterior thoracic cord. No contact with the thoracic cord when the patient is supine, but the flattening indicates contact in the past or possibly when the patient is upright. No spinal stenosis. No foraminal stenosis. Normal disc height. T9-10: Normal disc. Mild right ligamentum flavum hypertrophy. T10-11: No disc bulge or herniation. No spinal stenosis. Moderate loss of disc height from disc degenerative disease. IMPRESSION: 1. No sign of acute osseous injury to the thoracic spine. 2. Mild old compression fracture of T9. 3. No sign of spinal stenosis. 4. Mild right lateral T8-9 disc bulge associated with mild flattening of the right anterior thoracic cord. Interpreted by: Ta Desir MD Signed by: Ta Desir MD 07/27/23 Final result Normal [facility] Comment on above: Order Comment: Reaso n for exam:->spinal tendernessWhat reading provider will be dictating this exam?->CRC No Panel Informationon 07-27 [facility] Radiology Study observation (narrative) [facility] Platelet Confirmationon 07-17 Platelet Confirmation CONFIRMED Normal [facility] Comment on above: Performed By: #### C MPX, CBCWD, PLCON #### [facility] [address] [address] Concession Stand Attendant: Kemal Waterman MD Platelet Confirmation CONFIRMED [facility] [employer] Portable XR Chest AP single viewon 07-27-2023 No acute process. [facility] EXAMINATION: ONE XRAY VIEW OF THE CHEST 07/27/2023 10:32 am COMPARISON: None. HISTORY: ORDERING SYSTEM PROVIDED HISTORY: fall TECHNOLOGIST PROVIDED HISTORY: Reason for exam:->fall What reading provider will be dictating this exam?->CRC FINDINGS: The lungs are without acute focal process. There is no effusion or pneumothorax. The cardiomediastinal silhouette is without acute process. The osseous structures are without acute process. [facility] Dayton De La Cruz MD - 07/27/2023 EXAMINATION: ONE XRAY VIEW OF THE CHEST 07/27/2023 10:32 am COMPARISON: None. HISTORY: ORDERING SYSTEM PROVIDED HISTORY: fall TECHNOLOGIST PROVIDED HISTORY: Reason for exam:->fall What reading provider will be dictating this exam?->CRC FINDINGS: The lungs are without acute focal process. There is no effusion or pneumothorax. The cardiomediastinal silhouette is without acute process. The osseous structures are without acute process. IMPRESSION: No acute process. [facility] Radiology Study observation (narrative) [facility] [employer] Portable XR Chest AP single viewOrdered By: Dayton De La Cruz on 07-27-2023 [facility] [employer] Work Phone: XR CHEST PORTABLEon 07-27-19 24 XR CHEST PORTABLE EXAMINATION: ONE XRAY VIEW OF THE CHEST 07/27/2023 10:32 am COMPARISON: None. HISTORY: ORDERING SYSTEM PROVIDED HISTORY: fall TECHNOLOGIST PROVIDED HISTORY: Reason for exam:->fall What reading provider will be dictating this exam?->CRC FINDINGS: The lungs are without acute focal process. There is no effusion or pneumothorax. The cardiomediastinal silhouette is without acute process. The osseous structures are without acute process. IMPRESSION: No acute process. Interpreted by: Dayton De La Cruz MD Signed by: Dayton De La Cruz MD 07/27/23 Final result Normal [facility] Comment on above: Order Comment: Reaso n for exam:->fall What reading provider will be dictating this exam?->CRC XR HIP BILATERAL W AP PELVIS (2 VIEWS)on 07-27-2023 XR HIP BILATERAL W AP PELVIS (2 VIEWS) EXAMINATION: ONE XRAY VIEW OF THE PELVIS AND TWO XRAY VIEWS OF EACH OF THE BILATERAL HIPS 07/27/2023 10:32 am COMPARISON: None. HISTORY: ORDERING SYSTEM PROVIDED HISTORY: trauma, fall TECHNOLOGIST PROVIDED HISTORY: Reason for exam:->trauma, fall What reading provider will be dictating this exam?->CRC FINDINGS: SI joints symmetric and without widening. No displaced pelvic ring fracture. Degenerative changes of the bilateral hips overall mild involvement without acute irregularity or fracture, dislocation or subluxation. Dedicated AP and frog-lateral views of the bilateral hips without irregularity IMPRESSION: 1. No fracture or dislocation. 2. Mild degenerative changes of the bilateral hips. Interpreted by: Willem Lamb DO Signed by: Willem Lamb DO 07/27/23 Final result Normal [facility] Comment on above: Order Comment: Reaso n for exam:->trauma, fallWhat reading provider will be dictating this exam?->CRC XR Pelvis and Hip - bilatera l Viewson 07-27-2023 1. No fracture or dislocation. 2. Mild degenerative changes of the bilateral hips. [facility] EXAMINATION: ONE XRAY VIEW OF THE PELVIS AND TWO XRAY VIEWS OF EACH OF THE BILATERAL HIPS 07/27/2023 10:32 am COMPARISON: None. HISTORY: ORDERING SYSTEM PROVIDED HISTORY: trauma, fall TECHNOLOGIST PROVIDED HISTORY: Reason for exam:->trauma, fall What reading provider will be dictating this exam?->CRC FINDINGS: SI joints symmetric and without widening. No displaced pelvic ring fracture. Degenerative changes of the bilateral hips overall mild involvement without acute irregularity or fracture, dislocation or subluxation. Dedicated AP and frog-lateral views of the bilateral hips without irregularity [facility] Willem Lamb DO - 07/27/2023 EXAMINATION: ONE XRAY VIEW OF THE PELVIS AND TWO XRAY VIEWS OF EACH OF THE BILATERAL HIPS 07/27/2023 10:32 am COMPARISON: None. HISTORY: ORDERING SYSTEM PROVIDED HISTORY: trauma, fall TECHNOLOGIST PROVIDED HISTORY: Reason for exam:->trauma, fall What reading provider will be dictating this exam?->CRC FINDINGS: SI joints symmetric and without widening. No displaced pelvic ring fracture. Degenerative changes of the bilateral hips overall mild involvement without acute irregularity or fracture, dislocation or subluxation. Dedicated AP and frog-lateral views of the bilateral hips without irregularity IMPRESSION: 1. No fracture or dislocation. 2. Mild degenerative changes of the bilateral hips. [facility] Radiology Study observation (narrative) [facility] XR Pelvis and Hip - bilatera l ViewsOrdered By: Willem Lamb on 07-27-2023 [facility] Work Phone: Ammoniaon 07-25-2023 Ammonia (P) [Moles/Vol] 41 umol/L Normal 16.0-60.0 [facility] Comment on above: Performed By: #### L IPR, CP, PLCON, LINDA, CBCWD #### [address] [address] Concession Stand Attendant: Kemal Waterman MD Ammoniaon 07-23-2023 Ammonia (P) [Moles/Vol] 127 umol/L High 16.0-60.0 [facility] Comment on above: Performed By: #### L IPR, CP, PLCON, LINDA, CBCWD #### [address] [place] [address] Concession Stand Attendant: Kemal Waterman MD CBC with Diffon 07-23-2023 Abs. Basophil 0.02 k/uL Normal 0.00-0.20 [facility] Comment on above: Performed By: #### L IPR, CP, PLCON, LINDA, CBCWD #### [address] [place] [address] Concession Stand Attendant: Kemal Waterman MD Abs.Imm.Granulocyte <0.03 Normal 0.00-0.58 [facility] Comment on above: Performed By: #### L IPR, CP, PLCON, LINDA, CBCWD #### [place] [address] Concession Stand Attendant: Kemal Waterman MD Abs.Neutrophil (Seg) 2.57 k/uL Normal 1.80-7.30 [facility] Comment on above: Performed By: #### L IPR, CP, PLCON, LINDA, CBCWD #### [place] [address] Concession Stand Attendant: Kemal Waterman MD Basophils/100 WBC (Bld) 1 % Normal 0.0-2.0 [facility] Comment on above: Performed By: #### L IPR, CP, PLCON, LINDA, CBCWD #### [place] [address] Concession Stand Attendant: Kemal Waterman MD Eosinophils (Bld) [#/Vol] 0.15 10*3/uL Normal 0.05-0.50 [facility] Comment on above: Performed By: #### L IPR, CP, PLCON, LINDA, CBCWD #### [place] [address] Concession Stand Attendant: Kemal Waterman MD Eosinophils/100 WBC (Bld) 4 % Normal 0-6 [facility] Comment on above: Performed By: #### L IPR, CP, PLCON, LINDA, CBCWD #### [place] [address] Concession Stand Attendant: Kemal Waterman MD Immature granulocytes/100 WBC (Bld) 0 % Normal 0.0-5.0 [facility] Comment on above: Performed By: #### L IPR, CP, PLCON, LINDA, CBCWD #### [address] [place] [address] Concession Stand Attendant: Kemal Waterman MD Lymphocytes (Bld) [#/Vol] 0.78 10*3/uL Low 1.50-4.00 [facility] Comment on above: Performed By: #### L IPR, CP, PLCON, LINDA, CBCWD #### [address] [place] [address] Concession Stand Attendant: Kemal Waterman MD Lymphocytes/100 WBC (Bld) 20 % Normal 20.0-42.0 [facility] Comment on above: Performed By: #### L IPR, CP, PLCON, LINDA, CBCWD #### [address] [place] [address] Concession Stand Attendant: Kemal Waterman MD Monocytes (Bld) [#/Vol] 0.32 10*3/uL Normal 0.10-0.95 [facility] Comment on above: Performed By: #### L IPR, CP, PLCON, LINDA, CBCWD #### [address] [place] [address] Concession Stand Attendant: Kemal Waterman MD Monocytes/100 WBC (Bld) 8 % Normal 2.0-12.0 [facility] Comment on above: Performed By: #### L IPR, CP, PLCON, LINDA, CBCWD #### [address] [place] [address] Concession Stand Attendant: Kemal Waterman MD Neutrophil (Seg) 67 % Normal 43.0-80.0 [facility] Comment on above: Performed By: #### L IPR, CP, PLCON, LINDA, CBCWD #### [address] [place] [address] Concession Stand Attendant: Kemal Waterman MD RBC morphology finding Nom (Bld) 2+ Normal [facility] Comment on above: Result Comment: ANIS OCYTOSIS 1+ OVALOCYTES 1+ POIKILOCYTOSIS 1+ POLYCHROMASIA 1+ SCHISTOCYTES 1+ TARGET CELLS Performed By: #### L IPR, CP, PLCON, LINDA, CBCWD #### [place] [address] Concession Stand Attendant: Kemal Waterman MD Erythrocyte distribution width (RBC) [Ratio] 20.7 % High 11.5-15.0 [facility] Comment on above: Performed By: #### L IPR, CP, PLCON, LINDA, CBCWD #### [place] [address] Concession Stand Attendant: Kemal Waterman MD Hematocrit (Bld) [Volume fraction] 33.9 % Low 37.0-54.0 [facility] Comment on above: Performed By: #### L IPR, CP, PLCON, LINDA, CBCWD #### [place] [address] Concession Stand Attendant: Kemal Waterman MD Hemoglobin (Bld) [Mass/Vol] 10.9 g/dL Low 12.5-16.5 [facility] Comment on above: Performed By: #### L IPR, CP, PLCON, LINDA, CBCWD #### [place] [address] Concession Stand Attendant: Kemal Waterman MD MCH (RBC) [Entitic mass] 31.5 pg Normal 26.0-35.0 [facility] Comment on above: Performed By: #### L IPR, CP, PLCON, LINDA, CBCWD #### [address] [place] [address] Concession Stand Attendant: Kemal Waterman MD MCHC (RBC) [Mass/Vol] 32.2 g/dL Normal 32.0-34.5 [facility] Comment on above: Performed By: #### L IPR, CP, PLCON, LINDA, CBCWD #### [address] [place] [address] Concession Stand Attendant: Kemal Waterman MD MCV (RBC) [Entitic vol] 98.0 fL Normal 80.0-99.9 [facility] Comment on above: Performed By: #### L IPR, CP, PLCON, LINDA, CBCWD #### [address] [place] [address] Concession Stand Attendant: Kemal Waterman MD Platelet mean volume (Bld) [Entitic vol] 9.8 fL Normal 7.0-12.0 [facility] Comment on above: Performed By: #### L IPR, CP, PLCON, LINDA, CBCWD #### [address] [place] [address] Concession Stand Attendant: Kemal Waterman MD Platelets (Bld) [#/Vol] 62 10*3/uL Low 130-450 [facility] Comment on above: Performed By: #### L IPR, CP, PLCON, LINDA, CBCWD #### [address] [place] [id number] Concession Stand Attendant: Kemal Waterman MD RBC (Bld) [#/Vol] 3.46 10*6/uL Low 3.80-5.80 [facility] Comment on above: Performed By: #### L IPR, CP, PLCON, LINDA, CBCWD #### [address] [place] [id number] Concession Stand Attendant: Kemal Waterman MD WBC (Bld) [#/Vol] 3.9 10*3/uL Low 4.5-11.5 [facility] Comment on above: Performed By: #### L IPR, CP, PLCON, LINDA, CBCWD #### [address] [place] [address] Concession Stand Attendant: Kemal Waterman MD Comp Metabolic Profon 2023 Albumin [Mass/Vol] 3.4 g/dL Low 3.5-5.2 [facility] Comment on above: Performed By: #### L IPR, CP, PLCON, LINDA, CBCWD #### [address] [place] [address] Concession Stand Attendant: Kemal Waterman MD Alkaline Phos 265 U/L High 40-129 [facility] Comment on above: Performed By: #### L IPR, CP, PLCON, LINDA, CBCWD #### [address] [place] [address] Concession Stand Attendant: Kemal Waterman MD ALT [Catalytic activity/Vol] 19 U/L Normal 0-40 [facility] Comment on above: Performed By: #### L IPR, CP, PLCON, LINDA, CBCWD #### [address] [place] [address] Concession Stand Attendant: Kemal Waterman MD Anion gap [Moles/Vol] 12 mmol/L Normal 7-16 [facility] Comment on above: Performed By: #### L IPR, CP, PLCON, LINDA, CBCWD #### [address] [place] [address] Concession Stand Attendant: Kemal Waterman MD AST [Catalytic activity/Vol] 50 U/L High 0-39 [facility] Comment on above: Performed By: #### L IPR, CP, PLCON, LINDA, CBCWD #### [address] [place] [address] Concession Stand Attendant: Kemal Waterman MD Bilirubin [Mass/Vol] 2.3 mg/dL High 0.0-1.2 [facility] Comment on above: Performed By: #### L IPR, CP, PLCON, LINDA, CBCWD #### [address] [place] [address] Concession Stand Attendant: Kemal Waterman MD Calcium [Mass/Vol] 8.3 mg/dL Low 8.6-10.2 [facility] Comment on above: Performed By: #### L IPR, CP, PLCON, LINDA, CBCWD #### [address] [place] [address] Concession Stand Attendant: Kemal Waterman MD Chloride [Moles/Vol] 103 mmol/L Normal 98-107 [facility] Comment on above: Performed By: #### L IPR, CP, PLCON, LINDA, CBCWD #### [address] [place] [address] Concession Stand Attendant: Kemal Waterman MD CO2 [Moles/Vol] 25 mmol/L Normal 22-29 [facility] Comment on above: Performed By: #### L IPR, CP, PLCON, LINDA, CBCWD #### [address] [address] Concession Stand Attendant: Kemal Waterman MD Creatinine [Mass/Vol] 0.8 mg/dL Normal 0.70-1.20 [facility] Comment on above: Performed By: #### L IPR, CP, PLCON, LINDA, CBCWD #### [address] [place] [address] Concession Stand Attendant: Kemal Waterman MD GFR/1.73 sq M.predicted among non-blacks MDRD (S/P/Bld) [Vol rate/Area] mL/min/{1.73_m2} Normal >60 [facility] Comment on above: Result Comment: These results are not intended for use in patients <18 years of age. eGFR results are calculated without a race factor using the 2020 CKD-EPI equation. Careful clinical correlation is recommended, particularly when comparing to results calculated using previous equations. The CKD-EPI equation is less accurate in patients with extremes of muscle mass, extra-renal metabolism of creatine, excessive creatine ingestion, or following therapy that affects renal tubular secretion. Performed By: #### L IPR, CP, PLCON, LINDA, CBCWD #### [address] [place] [address] Concession Stand Attendant: Kemal Waterman MD Glucose [Mass/Vol] 266 mg/dL High 74-99 [facility] Comment on above: Performed By: #### L IPR, CP, PLCON, LINDA, CBCWD #### [address] [place] [address] Concession Stand Attendant: Kemal Waterman MD Potassium [Moles/Vol] 4.3 mmol/L Normal 3.5-5.0 [facility] Comment on above: Performed By: #### L IPR, CP, PLCON, LINDA, CBCWD #### [address] [place] [address] Concession Stand Attendant: Kemal Waterman MD Protein [Mass/Vol] 6.6 g/dL Normal 6.4-8.3 [facility] Comment on above: Performed By: #### L IPR, CP, PLCON, LINDA, CBCWD #### [address] [place] [address] Concession Stand Attendant: Kemla Waterman MD Sodium [Moles/Vol] 140 mmol/L Normal 132-146 [facility] Comment on above: Performed By: #### L IPR, CP, PLCON, LINDA, CBCWD #### [address] [place] [address] Concession Stand Attendant: Kemal Waterman MD Urea nitrogen [Mass/Vol] 9 mg/dL Normal 6-20 [facility] Comment on above: Performed By: #### L IPR, CP, PLCON, LINDA, CBCWD #### [address] [place] [address] Concession Stand Attendant: Kemal Waterman MD Drug Scr, Abuse, Uron 2023 Amphetamine(s),Ur Negative Normal NEG [facility] Comment on above: Result Comment: Cuto ff: 1000 ng/mL Performed By: #### U A, ROBERT #### [address] [place] [address] Concession Stand Attendant: Kemal Waterman MD Barbiturate(s),Ur Negative Normal NEG [facility] Comment on above: Result Comment: Cuto ff: 200 ng/ml Performed By: #### U A, ROBERT #### [address] [place] [address] Concession Stand Attendant: Kemal Waterman MD Benzodiazepine(s) Negative Normal NEG [facility] Comment on above: Result Comment: Cuto ff: 200 ng/ml Performed By: #### U A, ROBERT #### [address] [place] [address] Concession Stand Attendant: Kemal Waterman MD Buprenorphrine, Ur Negative Normal NEG [facility] Comment on above: Result Comment: Cuto ff: 5 ng/ml Performed By: #### U A, ROBERT #### [address] [place] [address] Concession Stand Attendant: Kemal Waterman MD Cannabinoid(s),Ur Negative Normal NEG [facility] Comment on above: Result Comment: Cuto ff: 50 ng/ml Performed By: #### U A, ROBERT #### [address] [place] [address] Concession Stand Attendant: Kemal Waterman MD Cocaine Metabolite Negative Normal NEG [facility] Comment on above: Result Comment: Cuto ff: 300 ng/ml Performed By: #### U A, ROBERT #### [address] [place] [address] Concession Stand Attendant: Kemal Waterman MD Fentanyl, Urine Negative Normal NEG [facility] Comment on above: Result Comment: Cuto ff: 1.0 ng/ml Performed By: #### U A, ROBERT #### [address] [place] [address] Concession Stand Attendant: Kemal Waterman MD Interpretive Info These drug screen results are for medical purposes only and should not be Normal [facility] Comment on above: Result Comment: cons idered definitive or confirmed. The drug methodology concentration value must be greater than or equal to the cutoff to be reported as positive. Confirmtory testing orders and/or interpretive sceening questions can be directed to toxicology at [phone]. The absence of expected drug(s) and/or metabolite(s) may be due to inappropriate timing of specimen collection relative to drug administration, poor drug absorption, diluted/adulterated urine, or limitations of screening methodology. Performed By: #### U A, ROBERT #### [address] [place] [address] Concession Stand Attendant: Kemal Waterman MD Methadone Ql (U) Negative Normal NEG [facility] Comment on above: Result Comment: Cuto ff: 300 ng/ml Performed By: #### U A, ROBERT #### [address] [place] [address] Concession Stand Attendant: Kemal Waterman MD Opiate(s), Ur Negative Normal NEG [facility] Comment on above: Result Comment: Cuto ff: 300 ng/ml Note: The Opiate screen is not intended to detect Oxycodone. Performed By: #### U A, ROBERT #### [address] [place] [address] Concession Stand Attendant: Kemal Waterman MD Oxycodone, Urine Negative Normal NEG [facility] Comment on above: Result Comment: Cuto ff: 100 ng/ml Performed By: #### U A, ROBERT #### [address] [place] [address] Concession Stand Attendant: Kemal Waterman MD Phencyclidine, Ur Negative Normal NEG [facility] Comment on above: Result Comment: Cuto ff: 25 ng/ml Performed By: #### U A, ROBERT #### [address] [place] [address] Concession Stand Attendant: Kemal Waterman MD Hemoglobin A1Con 07-23-2023 HbA1c (Bld) [Mass fraction] 4.9 % Normal 4.0-5.6 [facility] Comment on above: Performed By: #### G LYHGB #### [address] [place] [address] Concession Stand Attendant: Kemal Waterman MD Lipid Profileon 07-23-2023 Cholesterol [Mass/Vol] 148 mg/dL Normal <200 [facility] Comment on above: Performed By: #### L IPR, CP, PLCON, LINDA, CBCWD #### [address] [place] [address] Concession Stand Attendant: Kemal Waterman MD Cholesterol in HDL [Mass/Vol] 83 mg/dL Normal >40 [facility] Comment on above: Performed By: #### L IPR, CP, PLCON, LINDA, CBCWD #### [facility] [address] [place] [address] Concession Stand Attendant: Kemal Waterman MD Cholesterol in LDL [Mass/Vol] 48 mg/dL Normal <100 [facility] Comment on above: Performed By: #### L IPR, CP, PLCON, LINDA, CBCWD #### [address] [place] [address] Concession Stand Attendant: Kemal Waterman MD Cholesterol in VLDL [Mass/Vol] 17 mg/dL Normal [facility] Comment on above: Result Comment: No n ormal range established. Performed By: #### L IPR, CP, PLCON, LINDA, CBCWD #### [address] [place] [address] Concession Stand Attendant: Kemal Waterman MD Triglyceride [Mass/Vol] 85 mg/dL Normal <150 [facility] Comment on above: Performed By: #### L IPR, CP, PLCON, LINDA, CBCWD #### [address] [place] [address] Concession Stand Attendant: Kemal Waterman MD Platelet Confirmationon Platelet Confirmation The automated plat elet count may be artifactually decreased due to platelet Normal [facility] Comment on above: Result Comment: clum ping. Performed By: #### L IPR, CP, PLCON, LINDA, CBCWD #### [place] [address] [place] [address] Concession Stand Attendant: Kemal Waterman MD Urinalysis, Routineon 2023 Bilirubin, SemiQt,Ur Negative Normal NEG [facility] Comment on above: Performed By: #### U A, ROBERT #### [place] [address] [facility] [place] [address] Concession Stand Attendant: Kemal Waterman MD Blood, Urine Negative Normal NEG [facility] Comment on above: Performed By: #### U A, ROBERT #### [address] [place] [address] Concession Stand Attendant: Kemal Waterman MD Clarity (U) Clear Normal CLEAR [facility] Comment on above: Performed By: #### U A, ROBERT #### [address] [place] [address] Concession Stand Attendant: Kemal Waterman MD Color (U) Yellow Normal YEL [facility] Comment on above: Performed By: #### U A, ROBERT #### [address] [place] [address] Concession Stand Attendant: Kemal Waterman MD Comment Microscopic exam not performed based on chemical results unless requested in Normal [facility] Comment on above: Result Comment: orig inal order. Performed By: #### U A, ROBERT #### [address] [place] [address] Concession Stand Attendant: Kemal Waterman MD Glucose Ql (U) Negative Normal NEG [facility] Comment on above: Performed By: #### U A, ROBERT #### [place] [address] [address] [place] [address] Concession Stand Attendant: Kemal Waterman MD Ketones Ql (U) Negative Normal NEG [facility] Comment on above: Performed By: #### U A, ROBERT #### [place] [address] [facility] [place], [place] [address] Concession Stand Attendant: Kemal Waterman MD Leukocyte esterase Test strip Ql (U) Negative Normal NEG [facility] Comment on above: Performed By: #### U A, ROBERT #### [address] [address] Concession Stand Attendant: Kemal Waterman MD Nitrite,Ur Negative Normal NEG [facility] Comment on above: Performed By: #### U A, ROBERT #### [place] [address] Concession Stand Attendant: Kemal Waterman MD PH,Ur 6.0 Normal 5.0-9.0 [facility] Comment on above: Performed By: #### U A, ROBERT #### [place] [address] Concession Stand Attendant: Kemal Waterman MD Protein Ql (U) Negative Normal NEG [facility] Comment on above: Performed By: #### U A, ROBERT #### [place] [address] Concession Stand Attendant: Kemal Waterman MD Spec. [place],Ur 1.020 Normal 1.005-1.030 [facility] Comment on above: Performed By: #### U A, ROBERT #### [place] [address] Concession Stand Attendant: Kemal Waterman MD Urobilinogen,Ur 0.2 EU/dL Normal 0.0-1.0 [facility] Comment on above: Performed By: #### U A, ROBERT #### [place] [address] Concession Stand Attendant: Kemal Waterman MD [facility]-19-2023 [facility] -------- ALEX ROJO ([id number]) 1975 M T Date Time Provider Department 07/19/23 AMANDA DEVLIN During your visit today, we recorded the following information about you: Amanda Devlin, RN 07/19/2023 4:41 PM Signed Patient ID by Name and date: Called and informed Nurse Luana that patient's appt scheduled incorrectly. Luana states no liver mass or cancer. Patient to be seen regarding cirrhosis- Luana agrees no surgeon needed. Luana given number to call and reschedule appt and also left message for [facility] scheduling staff Uma to reschedule the appt. VM included my contact information - appt with Dr. Tamy shore and Luana Nurse agree. 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 - thiamine (VITAMIN B1) 100 mg tablet Take 200 mg by mouth twice daily. - pantoprazole DR (PROTONIX) 40 mg tablet Take 40 mg by mouth once daily. - folic acid 1 mg tablet Take 1 mg by mouth once daily. - lactulose (DUPHALAC, CONSTULOSE) 20 gram/30 mL solution Take 20 g by mouth four times daily. - furosemide (LASIX) 40 mg tablet Take 40 mg by mouth once daily. - rifAXIMin (XIFAXAN) 550 mg tablet Take 550 mg by mouth twice daily. - traZODone (DESYREL) 50 mg tablet Take 50 mg by mouth daily at bedtime. May take 1/2 to 1 tablet nightly as needed. - spironolactone (ALDACTONE) 50 mg tablet Take 50 mg by mouth once daily. - sertraline (ZOLOFT) 50 mg tablet Take 50 mg by mouth once daily. - doxepin capsule 10 mg Take 10 mg by mouth daily at bedtime. Problem List As Of Date 07/19/2023 Noted Resolved Closed fracture of left mandibular angle, initi*09/15/2022 Open fracture of mandible (HCC) [S02.609B] 09/17/2022 Encounter Status:Closed by AMANDA DEVLIN on 07/19/23 [facility] 07-14-2023 [facility] -------- ALEX ROJO ([id number]) 1975 M [facility] Date Time Provider Department 07/14/23 AMARIS ABEL During your visit today, we recorded the following information about you: Amaris Abel LPN 07/14/2023 2:48 PM Signed Contacted patient and was advised of phone number listed as [facility] facility. Transferred to [facility] and advised by Nurse Zara unable to discuss patient's status because of HIPAA and transferred to [facility] and no one answered phone call. [facility] [address] [place], [place] [address] Contacted patient's spouse listed on chart, Nicol[place] phone number listed rings busy. Nurse Coordinator Amanda Lai RN advised of this. Amaris Abel LPN Allergies As of Date: 07/14/2023 (No Known Allergies) Date Reviewed: 09/17/2022 Reviewed by: Louisa Beaulieu, RN - Fully Assessed Reason for Visit: Appointment [186] Prescriptions as of 07/14/2023 - cyanocobalamin, vitamin B-12, 1,000 mcg cap Take 1,000 mcg by mouth once daily. - thiamine (VITAMIN B1) 100 mg tablet Take 200 mg by mouth twice daily. - pantoprazole DR (PROTONIX) 40 mg tablet Take 40 mg by mouth once daily. - folic acid 1 mg tablet Take 1 mg by mouth once daily. - lactulose (DUPHALAC, CONSTULOSE) 20 gram/30 mL solution Take 20 g by mouth four times daily. - furosemide (LASIX) 40 mg tablet Take 40 mg by mouth once daily. - rifAXIMin (XIFAXAN) 550 mg tablet Take 550 mg by mouth twice daily. - traZODone (DESYREL) 50 mg tablet Take 50 mg by mouth daily at bedtime. May take 1/2 to 1 tablet nightly as needed. - spironolactone (ALDACTONE) 50 mg tablet Take 50 mg by mouth once daily. - sertraline (ZOLOFT) 50 mg tablet Take 50 mg by mouth once daily. - doxepin capsule 10 mg Take 10 mg by mouth daily at bedtime. Problem List As Of Date 07/14/2023 Noted Resolved Closed fracture of left mandibular angle, initi*09/15/2022 Open fracture of mandible (HCC) [S02.609B] 09/17/2022 Encounter Status:Closed by AMARIS ABEL on 07/14/23 Normal [facility] Bacteria Ur Culton 3 Bacteria identified Cx Nom (U) ORGANISM ID: 1 <10,000 CFU/ml Mixed microbiota No further workup. Mixed microbiota can be due to???urine???contaminati on with skin bacteria at time of collection or presence of a long-term urinary catheter. If a new culture is needed, please consider re-education of the patient on proper midstream collection technique or straight catheterization for???urine???collection . Normal [facility] Comment on above: Performed By: #### 6 30-4 ####[facility] LABCLIA [id number] [place] [address] [place] Ammoniaon 04-20-2023 Ammonia (P) [Moles/Vol] 125 umol/L High 16.0-60.0 [facility] Comment on above: Performed By: #### A MON #### [facility] [address] [facility] [place] [address] Concession Stand Attendant: Kemal Waterman MD Ammoniaon 04-17-2023 Ammonia (P) [Moles/Vol] 111 umol/L High 16.0-60.0 [facility] Comment on above: Performed By: #### A MON #### [place] [id number] [facility] [place] [place] [address] Concession Stand Attendant: Kemal Waterman MD CT CERVICAL SPINE WITHOUT CO NTRASTon 02-19-2023 CT CERVICAL SPINE WITHOUT CONTRAST EXAMINATION: CT OF THE HEAD WITHOUT CONTRAST; CT OF THE THORACIC SPINE WITHOUT CONTRAST; CT OF THE CERVICAL SPINE WITHOUT CONTRAST 02/19/2023 TECHNIQUE: CT of the head was performed without the administration of intravenous contrast. Dose modulation, iterative reconstruction, and/or weight based adjustment of the mA/kV was utilized to reduce the radiation dose to as low as reasonably achievable.; CT of the thoracic spine was performed without the administration of intravenous contrast. Multiplanar reformatted images are provided for review. Dose modulation, iterative reconstruction, and/or weight based adjustment of the mA/kV was utilized to reduce the radiation dose to as low as reasonably achievable.; CT of the cervical spine was performed without the administration of intravenous contrast. Multiplanar reformatted images are provided for review. Dose modulation, iterative reconstruction, and/or weight based adjustment of the mA/kV was utilized to reduce the radiation dose to as low as reasonably achievable. COMPARISON: None. HISTORY: ORDERING SYSTEM PROVIDED HISTORY: Fall/headache/neck pain; TECHNOLOGIST PROVIDED HISTORY: Injury/Trauma Acuity: Acute Reason for Exam: head trauma Type of Encounter: Initial Mechanism of Injury: Fall/headache/neck pain; ORDERING SYSTEM PROVIDED HISTORY: Fall/back pain; TECHNOLOGIST PROVIDED HISTORY: Injury/Trauma Acuity: Acute Reason for Exam: Fall/headache/neck pain Type of Encounter: Initial Mechanism of Injury: Fall/headache/neck pain; ORDERING SYSTEM PROVIDED HISTORY: Fall/headache/neck pain; TECHNOLOGIST PROVIDED HISTORY: Injury/Trauma Acuity: Acute Reason for Exam: Fall/headache/neck pain Type of Encounter: Initial Mechanism of Injury: Fall/headache/neck pain FINDINGS: CT HEAD: BRAIN/VENTRICLES: No acute intracranial hemorrhage or extraaxial fluid collection. Orozco-white differentiation is maintained. No evidence of mass, mass effect or midline shift. No evidence of hydrocephalus. ORBITS: The visualized portion of the orbits demonstrate no acute abnormality. SINUSES: The visualized paranasal sinuses and mastoid air cells demonstrate no acute abnormality. SOFT TISSUES/SKULL: No acute abnormality of the visualized skull or soft tissues. CT CERVICAL SPINE: The lateral alignment of the cervical spine appears normal. C1, C2, and odontoid appear normal. Spinous processes and posterior elements appear intact. No significant degenerative changes. CT THORACIC SPINE: The overall alignment of the thoracic spine appears normal. No acute compression injury. The spinous processes and posterior elements appear intact. Mild multilevel degenerative disc disease. Visualized posterior ribs demonstrate no acute abnormality. IMPRESSION: No acute intracranial abnormality. No acute cervical spine abnormality. No acute traumatic malalignment or compression injury in the thoracic spine. Mild multilevel degenerative disc disease. MS/kms Workstation ID: [id number] Dictated by: VINICIUS ENCINAS on [place] Feb 19, 2023 8:01:41 PM EDT Transcribed by: TATYANA OLIVIER on [place] Feb 19, 2023 8:09:33 PM EDT Finalized by: VINICIUS ENCINAS on [place] Feb 19, 2023 8:20:08 PM EDT [facility] Comment on above: Order Comment: Injur y/Trauma or Illness?:Injury/Trauma How long have you had these symptoms (acute/chronic)?:Acute Reason for exam?:Fall/headache/neck pain Type of Exam?:Initial Mechanism of injury?:Fall/headache/neck pain CT HEAD OR BRAIN WITHOUT CON TRASTon 02-19-2023 CT HEAD OR BRAIN WITHOUT CONTRAST EXAMINATION: CT OF THE HEAD WITHOUT CONTRAST; CT OF THE THORACIC SPINE WITHOUT CONTRAST; CT OF THE CERVICAL SPINE WITHOUT CONTRAST 02/19/2023 TECHNIQUE: CT of the head was performed without the administration of intravenous contrast. Dose modulation, iterative reconstruction, and/or weight based adjustment of the mA/kV was utilized to reduce the radiation dose to as low as reasonably achievable.; CT of the thoracic spine was performed without the administration of intravenous contrast. Multiplanar reformatted images are provided for review. Dose modulation, iterative reconstruction, and/or weight based adjustment of the mA/kV was utilized to reduce the radiation dose to as low as reasonably achievable.; CT of the cervical spine was performed without the administration of intravenous contrast. Multiplanar reformatted images are provided for review. Dose modulation, iterative reconstruction, and/or weight based adjustment of the mA/kV was utilized to reduce the radiation dose to as low as reasonably achievable. COMPARISON: None. HISTORY: ORDERING SYSTEM PROVIDED HISTORY: Fall/headache/neck pain; TECHNOLOGIST PROVIDED HISTORY: Injury/Trauma Acuity: Acute Reason for Exam: head trauma Type of Encounter: Initial Mechanism of Injury: Fall/headache/neck pain; ORDERING SYSTEM PROVIDED HISTORY: Fall/back pain; TECHNOLOGIST PROVIDED HISTORY: Injury/Trauma Acuity: Acute Reason for Exam: Fall/headache/neck pain Type of Encounter: Initial Mechanism of Injury: Fall/headache/neck pain; ORDERING SYSTEM PROVIDED HISTORY: Fall/headache/neck pain; TECHNOLOGIST PROVIDED HISTORY: Injury/Trauma Acuity: Acute Reason for Exam: Fall/headache/neck pain Type of Encounter: Initial Mechanism of Injury: Fall/headache/neck pain FINDINGS: CT HEAD: BRAIN/VENTRICLES: No acute intracranial hemorrhage or extraaxial fluid collection. Orozco-white differentiation is maintained. No evidence of mass, mass effect or midline shift. No evidence of hydrocephalus. ORBITS: The visualized portion of the orbits demonstrate no acute abnormality. SINUSES: The visualized paranasal sinuses and mastoid air cells demonstrate no acute abnormality. SOFT TISSUES/SKULL: No acute abnormality of the visualized skull or soft tissues. CT CERVICAL SPINE: The lateral alignment of the cervical spine appears normal. C1, C2, and odontoid appear normal. Spinous processes and posterior elements appear intact. No significant degenerative changes. CT THORACIC SPINE: The overall alignment of the thoracic spine appears normal. No acute compression injury. The spinous processes and posterior elements appear intact. Mild multilevel degenerative disc disease. Visualized posterior ribs demonstrate no acute abnormality. IMPRESSION: No acute intracranial abnormality. No acute cervical spine abnormality. No acute traumatic malalignment or compression injury in the thoracic spine. Mild multilevel degenerative disc disease. MS/kms Workstation ID: [id number] Dictated by: VINICIUS ENCINAS on [place] Feb 19, 2023 8:01:41 PM EDT Transcribed by: TATYANA OLIVIER on [place] Feb 19, 2023 8:09:33 PM EDT Finalized by: VINICIUS ENCINAS on [place] Feb 19, 2023 8:20:08 PM EDT [facility] Comment on above: Order Comment: Injur y/Trauma or Illness?:Injury/Trauma How long have you had these symptoms (acute/chronic)?:Acute Reason for exam?:head trauma Type of Exam?:Initial Mechanism of injury?:Fall/headache/neck pain CT THORACIC SPINE WITHOUT CO NTRASTon 02-19-2023 CT THORACIC SPINE WITHOUT CONTRAST EXAMINATION: CT OF THE HEAD WITHOUT CONTRAST; CT OF THE THORACIC SPINE WITHOUT CONTRAST; CT OF THE CERVICAL SPINE WITHOUT CONTRAST 02/19/2023 TECHNIQUE: CT of the head was performed without the administration of intravenous contrast. Dose modulation, iterative reconstruction, and/or weight based adjustment of the mA/kV was utilized to reduce the radiation dose to as low as reasonably achievable.; CT of the thoracic spine was performed without the administration of intravenous contrast. Multiplanar reformatted images are provided for review. Dose modulation, iterative reconstruction, and/or weight based adjustment of the mA/kV was utilized to reduce the radiation dose to as low as reasonably achievable.; CT of the cervical spine was performed without the administration of intravenous contrast. Multiplanar reformatted images are provided for review. Dose modulation, iterative reconstruction, and/or weight based adjustment of the mA/kV was utilized to reduce the radiation dose to as low as reasonably achievable. COMPARISON: None. HISTORY: ORDERING SYSTEM PROVIDED HISTORY: Fall/headache/neck pain; TECHNOLOGIST PROVIDED HISTORY: Injury/Trauma Acuity: Acute Reason for Exam: head trauma Type of Encounter: Initial Mechanism of Injury: Fall/headache/neck pain; ORDERING SYSTEM PROVIDED HISTORY: Fall/back pain; TECHNOLOGIST PROVIDED HISTORY: Injury/Trauma Acuity: Acute Reason for Exam: Fall/headache/neck pain Type of Encounter: Initial Mechanism of Injury: Fall/headache/neck pain; ORDERING SYSTEM PROVIDED HISTORY: Fall/headache/neck pain; TECHNOLOGIST PROVIDED HISTORY: Injury/Trauma Acuity: Acute Reason for Exam: Fall/headache/neck pain Type of Encounter: Initial Mechanism of Injury: Fall/headache/neck pain FINDINGS: CT HEAD: BRAIN/VENTRICLES: No acute intracranial hemorrhage or extraaxial fluid collection. Orozco-white differentiation is maintained. No evidence of mass, mass effect or midline shift. No evidence of hydrocephalus. ORBITS: The visualized portion of the orbits demonstrate no acute abnormality. SINUSES: The visualized paranasal sinuses and mastoid air cells demonstrate no acute abnormality. SOFT TISSUES/SKULL: No acute abnormality of the visualized skull or soft tissues. CT CERVICAL SPINE: The lateral alignment of the cervical spine appears normal. C1, C2, and odontoid appear normal. Spinous processes and posterior elements appear intact. No significant degenerative changes. CT THORACIC SPINE: The overall alignment of the thoracic spine appears normal. No acute compression injury. The spinous processes and posterior elements appear intact. Mild multilevel degenerative disc disease. Visualized posterior ribs demonstrate no acute abnormality. IMPRESSION: No acute intracranial abnormality. No acute cervical spine abnormality. No acute traumatic malalignment or compression injury in the thoracic spine. Mild multilevel degenerative disc disease. [employer] Workstation ID: [id number] Dictated by: VINICIUS ENCINAS on MonFeb 19, 2023 8:01:41 PM EDT Transcribed by: TATYANA OLIVIER on MonFeb 19, 2023 8:09:33 PM EDT Finalized by: VINICIUS ENCINAS on MonFeb 19, 2023 8:20:08 PM EDT [facility] Comment on above: Order Comment: Injur y/Trauma or Illness?:Injury/Trauma How long have you had these symptoms (acute/chronic)?:Acute Reason for exam?:Fall/headache/neck pain Type of Exam?:Initial Mechanism of injury?:Fall/headache/neck pain ANES POSTPROC EVALon 023 ANES POSTPROC EVAL HNO ID: [id number] Author: Hanna Peguero MD Service: Anesthesiology Author Type: Anesthesiologist Type: Anesthesia Postprocedure Evaluation Filed: 09/17/2022 12:37 AM Note Text: POST ANESTHESIA EVALUATION NOTE : 1975 Procedure Summary Date: 09/16/22 Room / Location: [place] [address] / OR Anesthesia Start: 1937 Anesthesia Stop: 09/17/22 0006 Procedures: ORIF MANDIBLE (Left: Mandible) Surgical extraction of cracked tooth 19 involved in the fracture (Left: Mouth) Closed treatment of the right low condylar neck fracture with archbars and rubberbands (Bilateral: Mandible) Diagnosis: Open fracture of body of mandible (HCC) Cracked tooth Fracture of ramus of right mandible, initial encounter for closed fracture (HCC) (Open fracture of body of mandible (HCC) [S02.600B]) (Cracked tooth [K03.81]) (Fracture of ramus of right mandible, initial encounter for closed fracture (HCC) [S02.641A]) Surgeons: Brianna Persaud DMD Responsible Provider: Hanna Peguero MD Anesthesia Type: general ASA Status: 2 Anesthesia Type: general Airway Type: ETT Last Vitals Vitals Value Taken Time BP 124/74 09/17/22 0030 Temp 36.7 ?C (98.1 ?F) 09/17/22 0005 Pulse 67 09/17/22 0036 Resp 18 09/17/22 0030 SpO2 95 % 09/17/22 003 Vitals shown include unvalidated device data. Post Anesthesia Patient Status Patient Evaluation: PACU. PACU/ICU Patient Condition: stable. Anticipated Disposition: inpatient floor planned admission. Neurological Status: aware and responsive. Pulmonary Status: breathing comfortably on room air Airway Control: returned to baseline unsupported. Cardiovascular Status: stable. Pain Management: clinically adequate Postoperative Hydration: acceptable. Intraoperative Events: no significant anesthesia events Post Operative Nausea/Vomiting Status: no significant post operative nausea or vomiting Recommendation: continue current plan of care. Other Remarks: No issues in PACU, vitals are stable. . Anesthesia Observations No notable events were associated with this procedure. Documented by Hanna Peguero MD 09/17/2022 12:16 AM EST SIGNATURE: Hanna Peguero MD PATIENT NAME: Alex Rojo DATE: September 17, 2022 TIME: 12:37 AM CSN: [id number] Normal [facility] Basic metabolic 2000 panelon 09-17-2022 Anion gap [Moles/Vol] 12 mmol/L Normal 5-16 [facility] Comment on above: Order Comment: Katherine kim Type: BLOOD SPECIMENOrdering Facility: [facility] Address: [address] [id number] Performed By: #### 2 4321-2 ####[facility] LABORATORYCLIA [id number] [place] [address] [place] Calcium [Mass/Vol] 8.1 mg/dL Low 8.5-10.5 [facility] Comment on above: Order Comment: Katherine kim Type: BLOOD SPECIMENOrdering Facility: [facility] Address: [address] [id number] Performed By: #### 2 4321-2 ####[facility] LABORATORYCLIA [id number] [place] [address] [place] Chloride [Moles/Vol] 106 mmol/L Normal 98-107 [facility] Comment on above: Order Comment: Speci men Type: BLOOD SPECIMENOrdering Facility: [facility] Address: [address] [place] [address] Performed By: #### 2 4321-2 ####[facility] LABORATORYCLIA [id number] [place] [address] [place] CO2 [Moles/Vol] 21 mmol/L Normal 21-[address] [facility] Comment on above: Order Comment: Speci men Type: BLOOD SPECIMENOrdering Facility: [facility] Address: [address] [place] [address] Performed By: #### 2 4321-2 ####[facility] LABORATORYCLIA [id number] [place] [address] [place] Creatinine [Mass/Vol] 0.89 mg/dL Normal 0.50-1.40 [facility] Comment on above: Order Comment: Speci men Type: BLOOD SPECIMENOrdering Facility: [facility] Address: [address] [place] [address] Result Comment: Barbara ents receiving either N-Acetylcysteine (NAC) or Metamizole prior to venipuncture, may have falsely depressed results. Performed By: #### 2 4321-2 ####[facility] LABORATORYCLIA [id number] [address] OF [facility] ESTIMATED GLOMERULAR FILTRATION RATE 106 mL/min/1.73m??? Normal >=60 [facility] Comment on above: Order Comment: Speci men Type: BLOOD SPECIMENOrdering Facility: [facility] Address: [address] [place] [address] Result Comment: Rabia mated Glomerular Filtration Rate (eGFR) is calculated using the 2020 CKD-EPI creatinine equation. This equation utilizes serum creatinine, sex, and age as parameters. The creatinine assay has traceable calibration to isotope dilution-mass spectrometry. Refer to KDIGO guidelines for clinical interpretation. In patients with unstable renal function, e.g. those with acute kidney injury, the eGFR may not accurately reflect actual GFR. Performed By: #### 2 4321-2 ####[facility] LABORATORYCLIA [id number] [place] [address] [place] Glucose [Mass/Vol] 177 mg/dL High 70-100 [facility] Comment on above: Order Comment: Katherine kim Type: BLOOD SPECIMENOrdering Facility: [facility] Address: [address] [address] Result Comment: The [place] Diabetes Association (ADA) provides guidance for cutoff values for fasting glucose and random glucose. The ADA defines fasting as no caloric intake for at least 8 hours. Fasting plasma glucose results between 100 to 125 mg/dL indicate increased risk for diabetes (prediabetes). Fasting plasma glucose results greater than or equal to 126 mg/dL meet the criteria for diagnosis of diabetes. In the absence of unequivocal hyperglycemia, results should be confirmed by repeat testing. In a patient with classic symptoms of hyperglycemia or hyperglycemic crisis, random plasma glucose results greater than or equal to 200 mg/dL meet the criteria for diagnosis of diabetes. Reference: Standards of Medical Care in Diabetes 2016, [place] Diabetes Association. Diabetes Care. 2016.39(Suppl 1). Results may be falsely elevated after the administration of Sulfapyridine. Results may be falsely depressed after the administration of Sulfasalazine. Performed By: #### 2 4321-2 ####[facility] LABORATORYCLIA [id number] [place] [address] [place] Potassium [Moles/Vol] 4.7 mmol/L Normal 3.5-5.1 [facility] Comment on above: Order Comment: Katherine kim Type: BLOOD SPECIMENOrdering Facility: [facility] Address: [address] [phone] Performed By: #### 2 4321-2 ####[facility] LABORATORYCLIA [id number] [place] [id number] [place] Sodium [Moles/Vol] 139 mmol/L Normal 136-145 [facility] Comment on above: Order Comment: Katherine kim Type: BLOOD SPECIMENOrdering Facility: [facility] Address: [address] [address] Performed By: #### 2 4321-2 ####[facility] LABORATORYCLIA [id number] [place] [id number] [place] [facility] Urea nitrogen [Mass/Vol] 28 mg/dL High 7-26 [facility] Comment on above: Order Comment: Speci men Type: BLOOD SPECIMENOrdering Facility: [facility] Address: [address] [address] Performed By: #### 2 4321-2 ####[facility] LABORATORYCLIA [id number] [address] OF [facility] CBC panel Auto (Bld)on 09-17 Erythrocyte distribution width (RBC) [Ratio] 14.8 % Normal 11.5-15.0 [facility] Comment on above: Order Comment: Speci men Type: BLOOD SPECIMENOrdering Facility: [facility] Address: [address] [address] Performed By: #### 5 8410-2 ####[facility] LABORATORYCLIA [id number] [address] [place] Hematocrit (Bld) [Volume fraction] 31.0 % Low 39.0-51.0 [facility] Comment on above: Order Comment: Speci men Type: BLOOD SPECIMENOrdering Facility: [facility] Address: [address] [address] Performed By: #### 5 8410-2 ####[facility] LABORATORYCLIA [id number] [address] [place] Hemoglobin (Bld) [Mass/Vol] 10.3 g/dL Low 13.0-17.0 [facility] Comment on above: Order Comment: Speci men Type: BLOOD SPECIMENOrdering Facility: [facility] Address: [address] [address] Performed By: #### 5 8410-2 ####[facility] LABORATORYCLIA [id number] [facility] [address] MCH (RBC) [Entitic mass] 37.7 pg High 26.0-34.0 [facility] Comment on above: Order Comment: Speci men Type: BLOOD SPECIMENOrdering Facility: [facility] Address: [address] [place] [address] Performed By: #### 5 8410-2 ####[facility] LABORATORYCLIA [id number] [address] [place] MCHC (RBC) [Mass/Vol] 33.2 g/dL Normal 30.5-36.0 [facility] Comment on above: Order Comment: Speci men Type: BLOOD SPECIMENOrdering Facility: [facility] Address: [address] [place] [address] Performed By: #### 5 8410-2 ####[facility] LABORATORYCLIA [id number] [address] OF [facility] MCV (RBC) [Entitic vol] 113.6 fL High 80.0-100.0 [facility] Comment on above: Order Comment: Speci men Type: BLOOD SPECIMENOrdering Facility: [facility] Address: [address] [place] [address] Performed By: #### 5 8410-2 ####[facility] LABORATORYCLIA [id number] [address] Nucleated RBC (Bld) [#/Vol] 10*3/uL Normal <0.01 [facility] Comment on above: Order Comment: Speci men Type: BLOOD SPECIMENOrdering Facility: [facility] Address: [address] [place] [address] Performed By: #### 5 8410-2 ####[facility] LABORATORYCLIA [id number] [address] Platelet mean volume (Bld) [Entitic vol] 10.4 fL Normal 9.0-12.7 [facility] Comment on above: Order Comment: Speci men Type: BLOOD SPECIMENOrdering Facility: [facility] Address: [address] [id number] Performed By: #### 5 8410-2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 MELLITUS per A.D.A. criteria. Potassium [Moles/Vol] 4.1 mmol/L 3.5-5.1 [facility] Work [facility]: Protein [Mass/Vol] 7.2 g/dL 6.4-8.2 [facility] Work Phone: Sodium [Moles/Vol] 134 mmol/L 136-145 [facility] Work Phone: Ammonia (P) [Moles/Vol] 31.0 umol/L 11-32 [facility] Work Phone: Direct bilirubinon 2 Bilirubin.direct [Mass/Vol] 2.23 mg/dL 0.00-0.30 [facility] Work Phone: Laboratory - Chemistry and C hemistry - challengeon 06-17-2022 ALP [Catalytic activity/Vol] 219 U/L 45-117 [facility] Work Phone: ALT [Catalytic activity/Vol] 50 U/L 16-61 [facility] Work Phone: CO2 [Moles/Vol] 27.0 mmol/L 21.0-32.0 [facility] Work Phone: Globulin (S) [Mass/Vol] 4.2 g/dL 2.2-4.2 [facility] Work Phone: Urea nitrogen/Creatinine [Mass ratio] 7.6 mg/mg 10-20 [facility] Work Phone: No Panel Informationon 06-17 Estimated GFR (MDRD) Amer 84 mL/min >60 [facility] Work Phone: Comment on above: GFR Calc Estimated GFR (MDRD) Non-Af Amer 69 mL/min >60 [facility] Work Phone: Comment on above: Non- GFR Calc Serum or plasma albumin leslye urement (mass/volume)on 06-17-2022 Albumin [Mass/Vol] 3.0 g/dL 3.2-5.0 [facility] Work Phone: Serum or plasma albumin/glob ulin mass ratioon 06-17-2022 Albumin/Globulin [Mass ratio] 0.7 {ratio} 0.9-2.4 [facility] Work Phone: Serum or plasma calcium leslye urement (mass/volume)on 06-17-2022 Calcium [Mass/Vol] 9.3 mg/dL 8.5-10.1 [facility] Work Phone: Serum or plasma creatinine m easurement (mass/volume)on 06-17-2022 Creatinine [Mass/Vol] 1.19 mg/dL 0.70-1.30 [facility] Work Phone: Comment on above: The validity of the calculated GFR & GFRAA in patients over 70 years has not been determined. Clinical correlation is essential. Serum or plasma urea nitroge n measurement (mass/volume)on 06-17-2022 Urea nitrogen [Mass/Vol] 9 mg/dL 7-18 [facility] Work Phone: Thin prep Papanicolaou smear with manual screeningon 06-17-2022 Thin prep Papanicolaou smear with manual screening 92 U/L 15-37 [facility] Work Phone: Thin prep Papanicolaou smear with manual screening 7 5-15 [facility] Work Phone: Absolute lymphocyte counton 06-16-2022 Lymphocytes Auto (Unsp spec) [#/Vol] 1.45 10*3/uL 0.83-4.51 [facility] Work Phone: Basophil percentageon 2021 Bilirubin [Mass/Vol] 3.90 mg/dL 0.20-1.00 [facility] Work Phone: Comment on above: For patients on eltr ombopag therapy, use of Dimension [place] TBIL is not recommended. Chloride [Moles/Vol] 98 mmol/L 98-107 [facility] Work Phone: Glucose [Mass/Vol] 123 mg/dL 74-106 [facility] Work Phone: Comment on above: Fasting Glucose resu lt from 100 to 125 mg/dL suggests IMPAIRED HOMEOSTASIS per A.D.A. criteria. Potassium [Moles/Vol] 3.9 mmol/L 3.5-5.1 [facility] Work Phone: Protein [Mass/Vol] 7.3 g/dL 6.4-8.2 [facility] Work Phone: [phone] Sodium [Moles/Vol] 133 mmol/L 136-145 [facility] Work Phone: Ammonia (P) [Moles/Vol] 12.0 umol/L 11-32 [facility] Work Phone: Basophils/100 WBC (Bld) 0.7 % 0-1 [facility] Work Phone: Bilirubin [Mass/Vol] 3.90 mg/dL 0.20-1.00 [facility] Work Phone: [phone] Comment on above: For patients on eltr ombopag therapy, use of Dimension [place] TBIL is not recommended. Chloride [Moles/Vol] 92 mmol/L 98-107 [facility] Work Phone: Eosinophils/100 WBC (Bld) 2.8 % 0-5 [facility] Work Phone: Glucose [Mass/Vol] 156 mg/dL 74-106 [facility] Work Phone: Comment on above: Fasting Glucose resu lt greater than or equal to 126 mg/dL suggests DIABETES MELLITUS per A.D.A. criteria. Neutrophils (Bld) [#/Vol] 5.1 10*3/uL 2.0-7.7 [facility] Work Phone: [phone] Neutrophils/100 WBC (Bld) 67.3 % 47-70 [facility] Work Phone: [phone] Potassium [Moles/Vol] 3.8 mmol/L 3.5-5.1 [facility] Work Phone: Protein [Mass/Vol] 7.5 g/dL 6.4-8.2 [facility] Work Phone: Sodium [Moles/Vol] 131 mmol/L 136-145 [facility] Work Phone: WBC (Bld) [#/Vol] 7.5 10*3/uL 4.4-11.0 [facility] Work Phone: Blood erythrocytes count (nu mber/volume)on 06-16-2022 RBC (Bld) [#/Vol] 3.14 10*6/uL 4.6-6.2 [facility] Work Phone: Blood hemoglobin measurement (mass/volume)on 06-16-2022 Hemoglobin (Bld) [Mass/Vol] 12.3 g/dL 13.0-16.5 [facility] Work Phone: Blood lymphocytes/100 leukoc yteson 06-16-2022 Lymphocytes/100 WBC (Bld) 19.3 % 19-41 [facility] Work Phone: Blood monocytes/100 leukocyt eson 06-16-2022 Monocytes/100 WBC (Bld) 9.5 % 0-10 [facility] Work Phone: Blood platelet mean volumeon 06-16-2022 Platelet mean volume (Bld) [Entitic vol] 10.0 fL 6.2-12.0 [facility] Work Phone: Determination of erythrocyte mean corpuscular volume (MCV)on 06-16-2022 MCV (RBC) [Entitic vol] 112.4 fL 80-94 [facility] Work Phone: Direct bilirubinon 2 Bilirubin.direct [Mass/Vol] 2.29 mg/dL 0.00-0.30 [facility] Work Phone: Hematocrit Auto (Bld) [Volum e fraction]on 06-16-2022 Hematocrit (Bld) [Volume fraction] 35.3 % 40-54 [facility] Work Phone: [phone] INR in Blood by Coagulation assayon 06-16-2022 INR Coag (Bld) [Relative time] 1.9 {INR} [facility] Work Phone: [phone] Laboratory - Chemistry and C hemistry - challengeon 06-16-2022 ALP [Catalytic activity/Vol] 209 U/L 45-117 [facility] Work Phone: ALT [Catalytic activity/Vol] 47 U/L 16- [facility] Work Phone: CO2 [Moles/Vol] 28.0 mmol/L 21.0-32.0 [facility] Work Phone: [phone] Globulin (S) [Mass/Vol] 4.3 g/dL 2.2-4.2 [facility] Work Phone: [phone] Lipase [Catalytic activity/Vol] 275 U/L 73-393 [facility] Work Phone: Urea nitrogen/Creatinine [Mass ratio] 6.8 mg/mg 10 [facility] Work Phone: ALP [Catalytic activity/Vol] 199 U/L 45-117 [facility] Work Phone: ALT [Catalytic activity/Vol] 49 U/L 16- [facility] Work Phone: CO2 [Moles/Vol] 30.0 mmol/L 21.0-32.0 [facility] Work Phone: Globulin (S) [Mass/Vol] 4.5 g/dL 2.2-4.2 [facility] Work Phone: Urea nitrogen/Creatinine [Mass ratio] 6.7 mg/mg 1020 [facility] Work Phone: [phone] Laboratory - Coagulationon 1 08-17-2021 aPTT Coag (Bld) [Time] 41.6 s 24.1-36.2 [facility] Work Phone: PT Coag (PPP) [Time] 21.3 s 11.7-14.9 [facility] Work Phone: Laboratory - Drug toxicology on 06-16-2022 Amphetamines Ql (U) Negative <1000 ng/mL [facility] Work Phone: Benzodiazepines Ql (U) Negative < 200 ng/mL [facility] Work Phone: Cannabinoids Screen Ql (U) Positive < 50 ng/mL [facility] Work Phone: Cocaine Ql (U) Negative < 300 ng/mL [facility] Work Phone: Opiates Ql (U) Negative < 300 ng/mL [facility] Work Phone: Laboratory - Hematology and Cell countson 06-16-2022 Erythrocyte distribution width (RBC) [Entitic vol] 55.8 fL 35.1-43.9 [facility] Work Phone: Erythrocyte distribution width (RBC) [Ratio] 13.5 % 11.6-14.6 [facility] Work Phone: Immature granulocytes/100 WBC (Bld) 0.400 % 0.0-0.9 [facility] Work Phone: Comment on above: IG% - Immature Granu locytes (promyelocytes, myelocytes and metamyelocytes) > 1% indicates that a LEFT SHIFT is Present. MCH (RBC) [Entitic mass] 39.2 pg 27.0-32.0 [facility] Work Phone: Nucleated RBC/100 WBC (Bld) [Ratio] 0 % 0-5 [facility] Work Phone: MCHC Auto (RBC) [Mass/Vol]on 06-16-2022 MCHC (RBC) [Mass/Vol] 34.8 g/dL 32-36 [facility] Work Phone: Comment on above: Delta: 37.0 on 06/14-1313 No Panel Informationon 06-16 MDMA (Ecstasy) Screen Negative < 500 ng/mL [facility] Work Phone: Urine Barbiturates Screen Negative < 200 ng/mL [facility] Work Phone: Urine Drug Screen Comment [facility] Work Phone: Comment on above: CONFIRMATORY TESTING FOR ALL POSITIVE URINE DRUG SCREENRESULTS WILL ONLY BE SENT OUT UPON PHYSICIAN ORDER. VISTA Urine Drug Screen methods provide only preliminaryanalytical test results. A more specific alternate chemicalmethod must be used in order to obtain a confirmedanalytical result. Gas chromatography/mass spectrometery(GC/MS) is the preferred confirmatory method. Clinicalconsideration and professional judgement should be appliedto any drug of abuse test result, particularly whenpreliminary positive results are used. URINE TCA TESTING MUST BE ORDERED SEPARATELY. USE TESTMNEMONIC: [facility] Urine Methadone Screen Negative < 300 ng/mL [facility] Work Phone: Estimated Creatinine Clearance Calc 67.92 ml/min [facility] Work Phone: Estimated GFR (MDRD) Amer 74 mL/min >60 [facility] Work Phone: Comment on above: GFR Calc Estimated GFR (MDRD) Non-Af Amer 61 mL/min >60 [facility] Work Phone: Comment on above: Non- GFR Calc Ethyl Alcohol Level < 3.0 mg/dL [facility] Work Phone: Comment on above: The serum:whole bloo d ethanol ratio is approximately 1.14and varies slightly with hematocrit. Medical Alcohol reference interval and critical value innon-tolerant individuals; 50 - 100 Impairment 100 Intoxication 100 - 250 Severe Poisoning 250 - 400 Deep/possible fatal coma Troponin I High Sensitivity 8 pg/mL 3.0-78.0 [facility] Work Phone: Comment on above: Please Note: New Chitra t Units and Gender Specific Reference Ranges. For more information see Policy Stat Procedure [place] High Sensitivity Troponin (TNIH) and attachments. Estimated Creatinine Clearance Calc 55.42 ml/min [facility] Work Phone: Estimated GFR (MDRD) Amer 58 mL/min >60 [facility] Work Phone: Comment on above: GFR Calc Estimated GFR (MDRD) Non-Af Amer 48 mL/min >60 [facility] Work Phone: Comment on above: Non- GFR Calc Platelets bldon 06-16-2022 Platelets (Bld) [#/Vol] 121 10*3/uL 150-450 [facility] Work Phone: Serum or plasma albumin leslye urement (mass/volume)on 06-16-2022 Albumin [Mass/Vol] 3.0 g/dL 3.2-5.0 [facility] Work Phone: Albumin [Mass/Vol] 3.0 g/dL 3.2-5.0 [facility] Work Phone: Serum or plasma albumin/glob ulin mass ratioon 06-16-2022 Albumin/Globulin [Mass ratio] 0.7 {ratio} 0.9-2.4 [facility] Work Phone: Serum or plasma calcium leslye urement (mass/volume)on 06-16-2022 Calcium [Mass/Vol] 8.8 mg/dL 8.5-10.1 [facility] Work Phone: Calcium [Mass/Vol] 8.5 mg/dL 8.5-10.1 [facility] Work Phone: Serum or plasma creatinine m easurement (mass/volume)on 06-16-2022 Creatinine [Mass/Vol] 1.33 mg/dL 0.70-1.30 [facility] Work Phone: Comment on above: The validity of the calculated GFR & GFRAA in patients over 70 years has not been determined. Clinical correlation is essential. Creatinine [Mass/Vol] 1.63 mg/dL 0.70-1.30 [facility] Work Phone: Comment on above: The validity of the calculated GFR & GFRAA in patients over 70 years has not been determined. Clinical correlation is essential. Serum or plasma urea nitroge n measurement (mass/volume)on 06-16-2022 Urea nitrogen [Mass/Vol] 9 mg/dL 01-31 [facility] Work Phone: Urea nitrogen [Mass/Vol] 11 mg/dL 01-31 [facility] Work Phone: Thin prep Papanicolaou smear with manual screeningon 06-16-2022 Thin prep Papanicolaou smear with manual screening 89 U/L [facility] Work Phone: [phone] Thin prep Papanicolaou smear with manual screening 7 11-28 [facility] Work Phone: [phone] Thin prep Papanicolaou smear with manual screening 92 U/L [facility] Work Phone: [phone] Thin prep Papanicolaou smear with manual screening 9 11-28 [facility] Work Phone: Urine phencyclidine (PCP) de tectionon 06-16-2022 Phencyclidine Ql (U) Negative < 25 ng/mL [facility] Work Phone: Absolute lymphocyte counton 06-14-2022 Lymphocytes Auto (Unsp spec) [#/Vol] 0.78 10*3/uL 0.83-4.51 [facility] Work Phone: [phone] Basophil percentageon 2021 Basophil percentage < 10.0 umol/L [facility] Work Phone: Basophils/100 WBC (Bld) 0.6 % 0-1 [facility] Work Phone: Bilirubin [Mass/Vol] 5.40 mg/dL 0.20-1.00 [facility] Work Phone: Comment on above: For patients on eltr ombopag therapy, use of Dimension [place] TBIL is not recommended. Chloride [Moles/Vol] 93 mmol/L 98-107 [facility] Work Phone: Eosinophils/100 WBC (Bld) 1.0 % 0-5 [facility] Work Phone: Glucose [Mass/Vol] 183 mg/dL 74-106 [facility] Work Phone: Comment on above: Fasting Glucose resu lt greater than or equal to 126 mg/dL suggests DIABETES MELLITUS per A.D.A. criteria. Neutrophils (Bld) [#/Vol] 6.5 10*3/uL 2.0-7.7 [facility] Work Phone: Neutrophils/100 WBC (Bld) 80.5 % 47-70 [facility] Work Phone: Potassium [Moles/Vol] 4.1 mmol/L 3.5-5.1 [facility] Work Phone: Protein [Mass/Vol] 8.2 g/dL 6.4-8.2 [facility] Work Phone: Sodium [Moles/Vol] 131 mmol/L 136-145 [facility] Work Phone: WBC (Bld) [#/Vol] 8.0 10*3/uL 4.4-11.0 [facility] Work Phone: Blood erythrocytes count (nu mber/volume)on 06-14-2022 RBC (Bld) [#/Vol] 3.38 10*6/uL 4.6-6.2 [facility] Work Phone: Blood hemoglobin measurement (mass/volume)on 06-14-2022 Hemoglobin (Bld) [Mass/Vol] 13.9 g/dL 13.0-16.5 [facility] Work Phone: Blood lymphocytes/100 leukoc yteson 06-14-2022 Lymphocytes/100 WBC (Bld) 9.7 % 19-41 [facility] Work Phone: Blood monocytes/100 leukocyt eson 06-14-2022 Monocytes/100 WBC (Bld) 8.1 % 0-10 [facility] Work Phone: Blood platelet mean volumeon 06-14-2022 Platelet mean volume (Bld) [Entitic vol] 9.6 fL 6.2-12.0 [facility] Work Phone: Determination of erythrocyte mean corpuscular volume (MCV)on 06-14-2022 MCV (RBC) [Entitic vol] 111.2 fL 80-94 [facility] Work Phone: Hematocrit Auto (Bld) [Volum e fraction]on 06-14-2022 Hematocrit (Bld) [Volume fraction] 37.6 % 40-54 [facility] Work Phone: Laboratory - Chemistry and C hemistry - challengeon 06-14-2022 ALP [Catalytic activity/Vol] 176 U/L 45-117 [facility] Work Phone: ALT [Catalytic activity/Vol] 47 U/L 16-61 [facility] Work Phone: CO2 [Moles/Vol] 31.0 mmol/L 21.0-32.0 [facility] Work Phone: Globulin (S) [Mass/Vol] 5.0 g/dL 2.2-4.2 [facility] Work Phone: Urea nitrogen/Creatinine [Mass ratio] 6.9 mg/mg 10-20 [facility] Work Phone: Laboratory - Hematology and Cell countson 06-14-2022 Erythrocyte distribution width (RBC) [Entitic vol] 55.8 fL 35.1-43.9 [facility] Work Phone: Erythrocyte distribution width (RBC) [Ratio] 13.5 % 11.6-14.6 [facility] Work Phone: [phone] Immature granulocytes/100 WBC (Bld) 0.100 % 0.0-0.9 [facility] Work Phone: Comment on above: IG% - Immature Granu locytes (promyelocytes, myelocytes and metamyelocytes) > 1% indicates that a LEFT SHIFT is Present. MCH (RBC) [Entitic mass] 41.1 pg 27.0-32.0 [facility] Work Phone: Nucleated RBC/100 WBC (Bld) [Ratio] 0 % 0-5 [facility] Work Phone: MCHC Auto (RBC) [Mass/Vol]on 06-14-2022 MCHC (RBC) [Mass/Vol] 37.0 g/dL 32-36 [facility] Work Phone: No Panel Informationon 06-14 Estimated GFR (MDRD) Amer 60 mL/min >60 [facility] Work Phone: Comment on above: GFR Calc Estimated GFR (MDRD) Non-Af Amer 50 mL/min >60 [facility] Work Phone: Comment on above: Non- GFR Calc Miscellaneous Test See comment [facility] Work Phone: Comment on above: TEST RESULT LIMITSPh osphatidylethanol (PEth) Negative ng/mL NEGATIVEAnalyzed compound: PEth 16:0/18:1. 7-flvrgezos-[id number]-gkabve-jb-lakxabh-3-phosphoethanol. Analysis performed by Liquid Chromatography with Tandem Mass Spectrometry (LC/MS/MS). Detection limit: 20 ng/mL PEth levels in excess of 20 ng/mL are considered evidence of moderate to heavy ethanol consumption. However, the [facility] (CSAT) advises caution in interpretation and use of biomarkers alone to assess alcohol use. Results should be interpreted in the context of all available clinical and behavioral information. Reference: Substance Abuse and Mental Health Services Administration (2012). The Role of Biomarkers in the Treatment of Alcohol Use Disorders, 2012 Revision. Advisory, Volume 11, Issue 2. This test was developed and its performance characteristics determined by [employer]. It has not been cleared or approved by the Food and Drug Administration. TESTING PERFORMED AT [facility]. ORIGINAL REPORT ON FILE IN LAB CONTAINS ADDITIONAL TEST SITE INFORMATION. Platelets bldon 06-14-2022 Platelets (Bld) [#/Vol] 143 10*3/uL 150-450 [facility] Work Phone: Serum or plasma albumin leslye urement (mass/volume)on 06-14-2022 Albumin [Mass/Vol] 3.2 g/dL 3.2-5.0 [facility] Work Phone: Serum or plasma albumin/glob ulin mass ratioon 06-14-2022 Albumin/Globulin [Mass ratio] 0.6 {ratio} 0.9-2.4 [facility] Work Phone: Serum or plasma calcium leslye urement (mass/volume)on 06-14-2022 Calcium [Mass/Vol] 9.1 mg/dL 8.5-10.1 [facility] Work Phone: Serum or plasma creatinine m easurement (mass/volume)on 06-14-2022 Creatinine [Mass/Vol] 1.59 mg/dL 0.70-1.30 [facility] Work Phone: Comment on above: The validity of the calculated GFR & GFRAA in patients over 70 years has not been determined. Clinical correlation is essential. Serum or plasma urea nitroge n measurement (mass/volume)on 06-14-2022 Urea nitrogen [Mass/Vol] 11 mg/dL 7-18 [facility] Work Phone: Thin prep Papanicolaou smear with manual screeningon 06-14-2022 Thin prep Papanicolaou smear with manual screening 86 U/L 15-37 [facility] Work Phone: Thin prep Papanicolaou smear with manual screening 7 5-15 [facility] Work Phone: Basophil percentageon 2021 Bilirubin [Mass/Vol] 4.60 mg/dL 0.20-1.00 [facility] Work Phone: Comment on above: For patients on eltr ombopag therapy, use of Dimension [place] TBIL is not recommended. Chloride [Moles/Vol] 96 mmol/L 98-107 [facility] Work Phone: Glucose [Mass/Vol] 213 mg/dL 74-106 [facility] Work Phone: Comment on above: Glucose result great er than or equal to 200 mg/dLsuggests DIABETES MELLITUS per A.D.A. criteria. Potassium [Moles/Vol] 4.3 mmol/L 3.5-5.1 [facility] Work Phone: Protein [Mass/Vol] 7.5 g/dL 6.4-8.2 [facility] Work Phone: Sodium [Moles/Vol] 132 mmol/L 136-145 [facility] Work Phone: Laboratory - Chemistry and C hemistry - challengeon 05-23-2022 ALP [Catalytic activity/Vol] 224 U/L 45-117 [facility] Work Phone: ALT [Catalytic activity/Vol] 26 U/L 16-61 [facility] Work Phone: CO2 [Moles/Vol] 29.0 mmol/L 21.0-32.0 [facility] Work Phone: Globulin (S) [Mass/Vol] 4.6 g/dL 2.2-4.2 [facility] Work Phone: Urea nitrogen/Creatinine [Mass ratio] 10.5 mg/mg 10-20 [facility] Work Phone: No Panel Informationon 05-23 Estimated GFR (MDRD) Amer 88 mL/min >60 [facility] Work Phone: Comment on above: GFR Calc Estimated GFR (MDRD) Non-Af Amer 73 mL/min >60 [facility] Work Phone: Comment on above: Non- GFR Calc Serum or plasma albumin leslye urement (mass/volume)on 05-23-2022 Albumin [Mass/Vol] 2.9 g/dL 3.2-5.0 [facility] Work Phone: Serum or plasma albumin/glob ulin mass ratioon 05-23-2022 Albumin/Globulin [Mass ratio] 0.6 {ratio} 0.9-2.4 [facility] Work Phone: Serum or plasma calcium leslye urement (mass/volume)on 05-23-2022 Calcium [Mass/Vol] 8.8 mg/dL 8.5-10.1 [facility] Work Phone: Serum or plasma creatinine m easurement (mass/volume)on 05-23-2022 Creatinine [Mass/Vol] 1.14 mg/dL 0.70-1.30 [facility] Work Phone: Comment on above: The validity of the calculated GFR & GFRAA in patients over 70 years has not been determined. Clinical correlation is essential. Serum or plasma urea nitroge n measurement (mass/volume)on 05-23-2022 Urea nitrogen [Mass/Vol] 12 mg/dL 7-18 [facility] Work Phone: Thin prep Papanicolaou smear with manual screeningon 05-23-2022 Thin prep Papanicolaou smear with manual screening 49 U/L 15-37 [facility] Work Phone: Thin prep Papanicolaou smear with manual screening 7 5-15 [facility] Work Phone: INR in Blood by Coagulation assayon 05-20-2022 INR Coag (Bld) [Relative time] 1.8 {INR} [facility] Work Phone: Laboratory - Coagulationon 1 07-20-2021 PT Coag (PPP) [Time] 20.1 s 11.7-14.9 [facility] Work Phone: Absolute lymphocyte counton 05-14-2022 Lymphocytes Auto (Unsp spec) [#/Vol] 0.35 10*3/uL 0.83-4.51 [facility] Work Phone: [phone] Amorphous sediment detection in urine sediment by light microscopyon 05-14-2022 Amorphous sediment LM Ql (Urine sed) 1+ [facility] Work Phone: Basophil percentageon 2021 Basophil percentage 0 SEEN /hpf 0-5 [facility] Work Phone: [phone] Ammonia (P) [Moles/Vol] 105.0 umol/L 11-32 [facility] Work Phone: Basophils/100 WBC (Bld) 0.5 % 0-1 [facility] Work Phone: Bilirubin [Mass/Vol] 4.90 mg/dL 0.20-1.00 [facility] Work Phone: Comment on above: For patients on eltr ombopag therapy, use of Dimension [place] TBIL is not recommended. Chloride [Moles/Vol] 105 mmol/L 98-107 [facility] Work Phone: Eosinophils/100 WBC (Bld) 0.0 % 0-5 [facility] Work Phone: Glucose [Mass/Vol] 204 mg/dL 74-106 [facility] Work Phone: Comment on above: Glucose result great er than or equal to 200 mg/dLsuggests DIABETES MELLITUS per A.D.A. criteria. Neutrophils (Bld) [#/Vol] 5.7 10*3/uL 2.0-7.7 [facility] Work Phone: [phone] Neutrophils/100 WBC (Bld) 88.0 % 47-70 [facility] Work Phone: Potassium [Moles/Vol] 4.0 mmol/L 3.5-5.1 [facility] Work Phone: Protein [Mass/Vol] 8.5 g/dL 6.4-8.2 [facility] Work Phone: Sodium [Moles/Vol] 141 mmol/L 136-145 [facility] Work Phone: WBC (Bld) [#/Vol] 6.4 10*3/uL 4.4-11.0 [facility] Work Phone: Bilirubin Test strip Ql (U)o n 05-14-2022 Bilirubin Ql (U) 1 mg/dL Negative [facility] Work Phone: Comment on above: COLOR OF URINE MAY A FFECT DIPSTICK RESULTS. Blood erythrocytes count (nu mber/volume)on 05-14-2022 RBC (Bld) [#/Vol] 2.92 10*6/uL 4.6-6.2 [facility] Work Phone: Blood hemoglobin measurement (mass/volume)on 05-14-2022 Hemoglobin (Bld) [Mass/Vol] 12.3 g/dL 13.0-16.5 [facility] Work Phone: Blood lymphocytes/100 leukoc yteson 05-14-2022 Lymphocytes/100 WBC (Bld) 5.4 % 19-41 [facility] Work Phone: Blood monocytes/100 leukocyt eson 05-14-2022 Monocytes/100 WBC (Bld) 5.6 % 0-10 [facility] Work Phone: Blood platelet mean volumeon 05-14-2022 Platelet mean volume (Bld) [Entitic vol] 9.6 fL 6.2-12.0 [facility] Work Phone: Determination of erythrocyte mean corpuscular volume (MCV)on 05-14-2022 MCV (RBC) [Entitic vol] 114.4 fL 80-94 [facility] Work Phone: Hematocrit Auto (Bld) [Volum e fraction]on 05-14-2022 Hematocrit (Bld) [Volume fraction] 33.4 % 40-54 [facility] Work Phone: INR in Blood by Coagulation assayon 05-14-2022 INR Coag (Bld) [Relative time] 1.7 {INR} [facility] Work Phone: [phone] Ketones Test strip Ql (U)on 05-14-2022 Ketones Ql (U) 5 mg/dl Negative [facility] Work Phone: [phone] Laboratory - Chemistry and C hemistry - challengeon 05-14-2022 ALP [Catalytic activity/Vol] 246 U/L 45-117 [facility] Work Phone: [phone] ALT [Catalytic activity/Vol] 35 U/L 16-61 [facility] Work Phone: [phone] CO2 [Moles/Vol] 25.0 mmol/L 21.0-32.0 [facility] Work Phone: Globulin (S) [Mass/Vol] 5.0 g/dL 2.2-4.2 [facility] Work Phone: [phone] Urea nitrogen/Creatinine [Mass ratio] 11.0 mg/mg 10-20 [facility] Work Phone: Laboratory - Coagulationon 1 aPTT Coag (Bld) [Time] 38.6 s 24.1-36.2 [facility] Work Phone: [phone] PT Coag (PPP) [Time] 20.0 s 11.7-14.9 [facility] Work Phone: Laboratory - Hematology and Cell countson 05-14-2022 Erythrocyte distribution width (RBC) [Entitic vol] 61.7 fL 35.1-43.9 [facility] Work Phone: [phone] Erythrocyte distribution width (RBC) [Ratio] 14.6 % 11.6-14.6 [facility] Work Phone: [phone] Immature granulocytes/100 WBC (Bld) 0.500 % 0.0-0.9 [facility] Work Phone: Comment on above: IG% - Immature Granu locytes (promyelocytes, myelocytes and metamyelocytes) > 1% indicates that a LEFT SHIFT is Present. MCH (RBC) [Entitic mass] 42.1 pg 27.0-32.0 [facility] Work Phone: Nucleated RBC/100 WBC (Bld) [Ratio] 0 % 0-5 [facility] Work Phone: MCHC Auto (RBC) [Mass/Vol]on 05-14-2022 MCHC (RBC) [Mass/Vol] 36.8 g/dL 32-36 [facility] Work Phone: Mucus LM Ql (Urine sed)on Mucus Ql (Urine sed) 0 SEEN /hpf [facility] Work Phone: Nitrite Test strip Ql (U)on 05-14-2022 Nitrite Ql (U) Positive Negative [facility] Work Phone: No Panel Informationon 05-14 Estimated Creatinine Clearance Calc 55.42 ml/min [facility] Work Phone: Estimated GFR (MDRD) Amer 58 mL/min >60 [facility] Work Phone: Comment on above: GFR Calc Estimated GFR (MDRD) Non-Af Amer 48 mL/min >60 [facility] Work Phone: Comment on above: Non- GFR Calc Ethyl Alcohol Level < 3.0 mg/dL [facility] Work Phone: Comment on above: The serum:whole bloo d ethanol ratio is approximately 1.14and varies slightly with hematocrit. Medical Alcohol reference interval and critical value innon-tolerant individuals; 50 - 100 Impairment 100 Intoxication 100 - 250 Severe Poisoning 250 - 400 Deep/possible fatal coma Troponin I High Sensitivity 10 pg/mL 3.0-78.0 [facility] Work Phone: Comment on above: Please Note: New Chitra t Units and Gender Specific Reference Ranges. For more information see Policy Stat Procedure [place] High Sensitivity Troponin (TNIH) and attachments. Platelets bldon 05-14-2022 Platelets (Bld) [#/Vol] 100 10*3/uL 150-450 [facility] Work Phone: Protein Test strip Ql (U)on 05-14-2022 Protein Ql (U) 15 mg/dl Negative [facility] Work Phone: Serum or plasma albumin leslye urement (mass/volume)on 05-14-2022 Albumin [Mass/Vol] 3.5 g/dL 3.2-5.0 [facility] Work Phone: Serum or plasma albumin/glob ulin mass ratioon 05-14-2022 Albumin/Globulin [Mass ratio] 0.7 {ratio} 0.9-2.4 [facility] Work Phone: Serum or plasma calcium leslye urement (mass/volume)on 05-14-2022 Calcium [Mass/Vol] 9.2 mg/dL 8.5-10.1 [facility] Work Phone: Serum or plasma creatinine m easurement (mass/volume)on 05-14-2022 Creatinine [Mass/Vol] 1.63 mg/dL 0.70-1.30 [facility] Work Phone: Comment on above: The validity of the calculated GFR & GFRAA in patients over 70 years has not been determined. Clinical correlation is essential. Serum or plasma urea nitroge n measurement (mass/volume)on 05-14-2022 Urea nitrogen [Mass/Vol] 18 mg/dL 7-18 [facility] Work Phone: Squamous epithelial cells de tection in urine sediment by light microscopyon 05-14-2022 Epithelial cells.squamous LM Ql (Urine sed) 0 SEEN /hpf 0-5 [facility] Work Phone: Thin prep Papanicolaou smear with manual screeningon 05-14-2022 Thin prep Papanicolaou smear with manual screening 63 U/L 15-37 [facility] Work Phone: Thin prep Papanicolaou smear with manual screening 11 5-15 [facility] Work Phone: Urine blood detectionon 04-17 RBC Ql (U) Negative Negative [facility] Work Phone: RBC Ql (U) 0 SEEN /hpf 0-5 [facility] Work Phone: Urine clarityon 05-14-2022 Clarity (U) Sl. Cloudy Clear [facility] Work Phone: Urine color determinationon 05-14-2022 Color (U) Yellow Yellow [facility] Work Phone: Urine glucose detectionon Glucose Ql (U) Normal mg/dl Normal [facility] Work Phone: Urine leukocyte esterase det ection by dipstickon 05-14-2022 Leukocyte esterase Test strip Ql (U) 100 /ul Negative [facility] Work Phone: Urine pHon 05-14-2022 pH (U) 7.0 [pH] 5.0 - 8.0 [facility] Work Phone: Urine sediment bacteria coun t by microscopy (number/high power field)on 05-14-2022 Bacteria LM.HPF (Urine sed) [#/Area] 0 /[HPF] None Seen [facility] Work Phone: Urine specific gravity measu rementon 05-14-2022 Specific gravity (U) [Rel density] 1.015 1.002-1.030 [facility] Work Phone: Urobilinogen Auto test strip Ql (U)on 05-14-2022 Urobilinogen Ql (U) 4 mg/dl Normal [facility] Work Phone: Basophil percentageon 2021 Bilirubin [Mass/Vol] 5.80 mg/dL 0.20-1.00 [facility] Work Phone: Comment on above: For patients on eltr ombopag therapy, use of Dimension [place] TBIL is not recommended. Chloride [Moles/Vol] 101 mmol/L 98-107 [facility] Work Phone: Glucose [Mass/Vol] 120 mg/dL 74-106 [facility] Work Phone: Comment on above: Fasting Glucose resu lt from 100 to 125 mg/dL suggests IMPAIRED HOMEOSTASIS per A.D.A. criteria. Potassium [Moles/Vol] 4.4 mmol/L 3.5-5.1 [facility] Work Phone: [phone] Protein [Mass/Vol] 8.3 g/dL 6.4-8.2 [facility] Work Phone: [phone] Sodium [Moles/Vol] 135 mmol/L 136-145 [facility] Work Phone: INR in Blood by Coagulation assayon 04-21-2022 INR Coag (Bld) [Relative time] 1.8 {INR} [facility] Work Phone: Laboratory - Chemistry and C hemistry - challengeon 04-21-2022 ALP [Catalytic activity/Vol] 225 U/L 45-117 [facility] Work Phone: ALT [Catalytic activity/Vol] 40 U/L 16-61 [facility] Work Phone: CO2 [Moles/Vol] 27.0 mmol/L 21.0-32.0 [facility] Work Phone: Globulin (S) [Mass/Vol] 5.3 g/dL 2.2-4.2 [facility] Work Phone: [phone] Urea nitrogen/Creatinine [Mass ratio] 14.7 mg/mg 10-20 [facility] Work Phone: Laboratory - Coagulationon 1 PT Coag (PPP) [Time] 20.6 s 11.7-14.9 [facility] Work Phone: No Panel Informationon 04-21 Estimated GFR (MDRD) Amer 93 mL/min >60 [facility] Work Phone: Comment on above: GFR Calc Estimated GFR (MDRD) Non-Af Amer 77 mL/min >60 [facility] Work Phone: Comment on above: Non- GFR Calc Serum or plasma albumin leslye urement (mass/volume)on 04-21-2022 Albumin [Mass/Vol] 3.0 g/dL 3.2-5.0 [facility] Work Phone: Serum or plasma albumin/glob ulin mass ratioon 04-21-2022 Albumin/Globulin [Mass ratio] 0.6 {ratio} 0.9-2.4 [facility] Work Phone: Serum or plasma calcium leslye urement (mass/volume)on 04-21-2022 Calcium [Mass/Vol] 8.9 mg/dL 8.5-10.1 [facility] Work Phone: Serum or plasma creatinine m easurement (mass/volume)on 04-21-2022 Creatinine [Mass/Vol] 1.09 mg/dL 0.70-1.30 [facility] Work Phone: Comment on above: The validity of the calculated GFR & GFRAA in patients over 70 years has not been determined. Clinical correlation is essential. Serum or plasma urea nitroge n measurement (mass/volume)on 04-21-2022 Urea nitrogen [Mass/Vol] 16 mg/dL 7-18 [facility] Work Phone: Thin prep Papanicolaou smear with manual screeningon 04-21-2022 Thin prep Papanicolaou smear with manual screening 61 U/L 15-37 [facility] Work Phone: Thin prep Papanicolaou smear with manual screening 7 5-15 [facility] Work Phone: Basophil percentageon 2021 Bilirubin [Mass/Vol] 5.10 mg/dL 0.20-1.00 [facility] Work Phone: Comment on above: For patients on eltr ombopag therapy, use of Dimension [place] TBIL is not recommended. Chloride [Moles/Vol] 100 mmol/L 98-107 [facility] Work Phone: Glucose [Mass/Vol] 121 mg/dL 74-106 [facility] Work Phone: Comment on above: Fasting Glucose resu lt from 100 to 125 mg/dL suggests IMPAIRED HOMEOSTASIS per A.D.A. criteria. Potassium [Moles/Vol] 4.2 mmol/L 3.5-5.1 [facility] Work Phone: Protein [Mass/Vol] 7.9 g/dL 6.4-8.2 [facility] Work Phone: Sodium [Moles/Vol] 135 mmol/L 136-145 [facility] Work Phone: INR in Blood by Coagulation assayon 03-22-2022 INR Coag (Bld) [Relative time] 1.8 {INR} [facility] Work Phone: Laboratory - Chemistry and C hemistry - challengeon 03-22-2022 ALP [Catalytic activity/Vol] 209 U/L 45-117 [facility] Work Phone: ALT [Catalytic activity/Vol] 47 U/L 16-61 [facility] Work Phone: CO2 [Moles/Vol] 28.0 mmol/L 21.0-32.0 [facility] Work Phone: Globulin (S) [Mass/Vol] 4.8 g/dL 2.2-4.2 [facility] Work Phone: Urea nitrogen/Creatinine [Mass ratio] 9.2 mg/mg 10-20 [facility] Work Phone: Laboratory - Coagulationon 0 03-22-2022 PT Coag (PPP) [Time] 20.5 s 11.7-14.9 [facility] Work Phone: No Panel Informationon 03-22 Estimated GFR (MDRD) Amer 93 mL/min >60 [facility] Work Phone: Comment on above: GFR Calc Estimated GFR (MDRD) Non-Af Amer 77 mL/min >60 [facility] Work Phone: Comment on above: Non- GFR Calc Serum or plasma albumin leslye urement (mass/volume)on 03-22-2022 Albumin [Mass/Vol] 3.1 g/dL 3.2-5.0 [facility] Work Phone: Serum or plasma albumin/glob ulin mass ratioon 03-22-2022 Albumin/Globulin [Mass ratio] 0.6 {ratio} 0.9-2.4 [facility] Work Phone: Serum or plasma calcium leslye urement (mass/volume)on 03-22-2022 Calcium [Mass/Vol] 9.4 mg/dL 8.5-10.1 [facility] Work Phone: Serum or plasma creatinine m easurement (mass/volume)on 03-22-2022 Creatinine [Mass/Vol] 1.09 mg/dL 0.70-1.30 [facility] Work Phone: Comment on above: The validity of the calculated GFR & GFRAA in patients over 70 years has not been determined. Clinical correlation is essential. Serum or plasma urea nitroge n measurement (mass/volume)on 03-22-2022 Urea nitrogen [Mass/Vol] 10 mg/dL 7-18 [facility] Work Phone: Thin prep Papanicolaou smear with manual screeningon 03-22-2022 Thin prep Papanicolaou smear with manual screening 67 U/L 15-37 [facility] Work Phone: Thin prep Papanicolaou smear with manual screening 7 5-15 [facility] Work Phone: Absolute lymphocyte counton 03-04-2022 Lymphocytes Auto (Unsp spec) [#/Vol] 1.08 10*3/uL 0.83-4.51 [facility] Work Phone: Basophil percentageon 2021 Basophils/100 WBC (Bld) 0.7 % 0-1 [facility] Work Phone: [phone] Bilirubin [Mass/Vol] 4.20 mg/dL 0.20-1.00 [facility] Work Phone: Comment on above: For patients on eltr ombopag therapy, use of Dimension [place] TBIL is not recommended. Chloride [Moles/Vol] 99 mmol/L 98-107 [facility] Work Phone: Eosinophils/100 WBC (Bld) 3.0 % 0-5 [facility] Work Phone: [phone] Glucose [Mass/Vol] 94 mg/dL 74-106 [facility] Work Phone: [phone] Neutrophils (Bld) [#/Vol] 3.5 10*3/uL 2.0-7.7 [facility] Work Phone: [phone] Neutrophils/100 WBC (Bld) 64.6 % 47-70 [facility] Work Phone: [phone] Potassium [Moles/Vol] 4.0 mmol/L 3.5-5.1 [facility] Work Phone: [phone] Protein [Mass/Vol] 7.6 g/dL 6.4-8.2 [facility] Work Phone: [phone] Sodium [Moles/Vol] 135 mmol/L 136-145 [facility] Work Phone: [phone] WBC (Bld) [#/Vol] 5.4 10*3/uL 4.4-11.0 [facility] Work Phone: [phone] Blood erythrocytes count (nu mber/volume)on 03-04-2022 RBC (Bld) [#/Vol] 3.27 10*6/uL 4.6-6.2 [facility] Work Phone: Blood hemoglobin measurement (mass/volume)on 03-04-2022 Hemoglobin (Bld) [Mass/Vol] 12.9 g/dL 13.0-16.5 [facility] Work Phone: Blood lymphocytes/100 leukoc yteson 03-04-2022 Lymphocytes/100 WBC (Bld) 20.1 % 19-41 [facility] Work Phone: Blood monocytes/100 leukocyt eson 03-04-2022 Monocytes/100 WBC (Bld) 11.2 % 0-10 [facility] Work Phone: Blood platelet adequacy dete ction by light microscopyon 03-04-2022 Platelets LM Ql (Bld) MOD [facility]: Blood platelet mean volumeon 03-04-2022 Platelet mean volume (Bld) [Entitic vol] 10.4 fL 6.2-12.0 [facility] Work Phone: Determination of erythrocyte mean corpuscular volume (MCV)on 03-04-2022 MCV (RBC) [Entitic vol] 107.6 fL 80-94 [facility] Work Phone: Hematocrit Auto (Bld) [Volum e fraction]on 03-04-2022 Hematocrit (Bld) [Volume fraction] 35.2 % 40-54 [facility] Work Phone: [phone] INR in Blood by Coagulation assayon 03-04-2022 INR Coag (Bld) [Relative time] 1.8 {INR} [facility] Work Phone: Laboratory - Chemistry and C hemistry - challengeon 03-04-2022 ALP [Catalytic activity/Vol] 204 U/L 45-117 [facility] Work Phone: [phone] ALT [Catalytic activity/Vol] 61 U/L 16-61 [facility] Work Phone: [phone] CO2 [Moles/Vol] 30.0 mmol/L 21.0-32.0 [facility] Work Phone: Globulin (S) [Mass/Vol] 4.8 g/dL 2.2-4.2 [facility] Work Phone: Urea nitrogen/Creatinine [Mass ratio] 11.1 mg/mg 10-20 [facility] Work Phone: Laboratory - Coagulationon 0 03-04-2022 PT Coag (PPP) [Time] 20.4 s 11.7-14.9 [facility] Work Phone: Laboratory - Hematology and Cell countson 03-04-2022 Erythrocyte distribution width (RBC) [Entitic vol] 55.9 fL 35.1-43.9 [facility] Work Phone: Erythrocyte distribution width (RBC) [Ratio] 14.2 % 11.6-14.6 [facility] Work Phone: Immature granulocytes/100 WBC (Bld) 0.400 % 0.0-0.9 [facility] Work Phone: Comment on above: IG% - Immature Granu locytes (promyelocytes, myelocytes and metamyelocytes) > 1% indicates that a LEFT SHIFT is Present. MCH (RBC) [Entitic mass] 39.4 pg 27.0-32.0 [facility] Work Phone: Nucleated RBC/100 WBC (Bld) [Ratio] 0 % 0-5 [facility] Work Phone: MCHC Auto (RBC) [Mass/Vol]on 03-04-2022 MCHC (RBC) [Mass/Vol] 36.6 g/dL 32-36 [facility] Work Phone: No Panel Informationon 03-04 Estimated GFR (MDRD) Amer 103 mL/min >60 [facility] Work Phone: Comment on above: GFR Calc Estimated GFR (MDRD) Non-Af Amer 85 mL/min >60 [facility] Work Phone: Comment on above: Non- GFR Calc Platelets bldon 03-04-2022 Platelets (Bld) [#/Vol] 93 10*3/uL 150-450 [facility] Work Phone: [phone] Serum or plasma albumin leslye urement (mass/volume)on 03-04-2022 Albumin [Mass/Vol] 2.8 g/dL 3.2-5.0 [facility] Work Phone: Serum or plasma albumin/glob ulin mass ratioon 03-04-2022 Albumin/Globulin [Mass ratio] 0.6 {ratio} 0.9-2.4 [facility] Work Phone: Serum or plasma calcium leslye urement (mass/volume)on 03-04-2022 Calcium [Mass/Vol] 8.5 mg/dL 8.5-10.1 [facility] Work Phone: Serum or plasma creatinine m easurement (mass/volume)on 03-04-2022 Creatinine [Mass/Vol] 1.00 mg/dL 0.70-1.30 [facility] Work Phone: Comment on above: The validity of the calculated GFR & GFRAA in patients over 70 years has not been determined. Clinical correlation is essential. Serum or plasma urea nitroge n measurement (mass/volume)on 03-04-2022 Urea nitrogen [Mass/Vol] 11 mg/dL 7-18 [facility] Work Phone: Thin prep Papanicolaou smear with manual screeningon 03-04-2022 Thin prep Papanicolaou smear with manual screening 87 U/L 15-37 [facility] Work Phone: Thin prep Papanicolaou smear with manual screening 6 5-15 [facility] Work Phone: Glucose Glucometer (BldC) [M ass/Vol]on 03-03-2022 Glucose [Mass/Vol] 85 mg/dL 74-106 [facility] Work Phone: Comment on above: MANAGEMENT OF PATIEN T CARE PER NURSING PROTOCOL Basophil percentageon 2021 Bilirubin [Mass/Vol] 4.40 mg/dL 0.20-1.00 [facility] Work Phone: Comment on above: For patients on eltr ombopag therapy, use of Dimension [place] TBIL is not recommended. Chloride [Moles/Vol] 103 mmol/L 98-107 [facility] Work Phone: Glucose [Mass/Vol] 137 mg/dL 74-106 [facility] Work Phone: Comment on above: Fasting Glucose resu lt greater than or equal to 126 mg/dL suggests DIABETES MELLITUS per A.D.A. criteria. Potassium [Moles/Vol] 4.4 mmol/L 3.5-5.1 [facility] Work Phone: Protein [Mass/Vol] 7.6 g/dL 6.4-8.2 [facility] Work Phone: Sodium [Moles/Vol] 135 mmol/L 136-145 [facility] Work Phone: INR in Blood by Coagulation assayon 02-14-2022 INR Coag (Bld) [Relative time] 1.8 {INR} [facility] Work Phone: Laboratory - Chemistry and C hemistry - challengeon 02-14-2022 ALP [Catalytic activity/Vol] 264 U/L 45-117 [facility] Work Phone: ALT [Catalytic activity/Vol] 47 U/L 16-61 [facility] Work Phone: CO2 [Moles/Vol] 28.0 mmol/L 21.0-32.0 [facility] Work Phone: Globulin (S) [Mass/Vol] 4.6 g/dL 2.2-4.2 [facility] Work Phone: Urea nitrogen/Creatinine [Mass ratio] 11.0 mg/mg 10-20 [facility] Work Phone: Laboratory - Coagulationon 0 02-14-2022 PT Coag (PPP) [Time] 20.4 s 11.7-14.9 [facility] Work Phone: No Panel Informationon 02-14 Estimated GFR (MDRD) Amer 114 mL/min >60 [facility] Work Phone: Comment on above: GFR Calc Estimated GFR (MDRD) Non-Af Amer 95 mL/min >60 [facility] Work Phone: Comment on above: Non- GFR Calc Serum or plasma albumin leslye urement (mass/volume)on 02-14-2022 Albumin [Mass/Vol] 3.0 g/dL 3.2-5.0 [facility] Work Phone: Serum or plasma albumin/glob ulin mass ratioon 02-14-2022 Albumin/Globulin [Mass ratio] 0.7 {ratio} 0.9-2.4 [facility] Work Phone: Serum or plasma calcium leslye urement (mass/volume)on 02-14-2022 Calcium [Mass/Vol] 8.7 mg/dL 8.5-10.1 [facility] Work Phone: Serum or plasma creatinine m easurement (mass/volume)on 02-14-2022 Creatinine [Mass/Vol] 0.91 mg/dL 0.70-1.30 [facility] Work Phone: Comment on above: The validity of the calculated GFR & GFRAA in patients over 70 years has not been determined. Clinical correlation is essential. Serum or plasma urea nitroge n measurement (mass/volume)on 02-14-2022 Urea nitrogen [Mass/Vol] 10 mg/dL 7-18 [facility] Work Phone: Thin prep Papanicolaou smear with manual screeningon 02-14-2022 Thin prep Papanicolaou smear with manual screening 62 U/L 15-37 [facility] Work Phone: Thin prep Papanicolaou smear with manual screening 4 5-15 [facility] Work Phone: Absolute lymphocyte counton 12-24-2021 Lymphocytes Auto (Unsp spec) [#/Vol] 0.87 10*3/uL 0.83-4.51 [facility] Work Phone: Basophil percentageon 2021 Ammonia (P) [Moles/Vol] 77.0 umol/L 11-32 [facility] Work Phone: Basophils/100 WBC (Bld) 0.9 % 0-1 [facility] Work Phone: Bilirubin [Mass/Vol] 4.30 mg/dL 0.20-1.00 [facility] Work Phone: [phone] Comment on above: For patients on eltr ombopag therapy, use of Dimension [place] TBIL is not recommended. Chloride [Moles/Vol] 101 mmol/L 98-107 [facility] Work Phone: Eosinophils/100 WBC (Bld) 3.4 % 0-5 [facility] Work Phone: Glucose [Mass/Vol] 125 mg/dL 74-106 [facility] Work Phone: Comment on above: Fasting Glucose resu lt from 100 to 125 mg/dL suggests IMPAIRED HOMEOSTASIS per A.D.A. criteria. Neutrophils (Bld) [#/Vol] 3.9 10*3/uL 2.0-7.7 [facility] Work Phone: Neutrophils/100 WBC (Bld) 70.4 % 47-70 [facility] Work Phone: Potassium [Moles/Vol] 4.0 mmol/L 3.5-5.1 [facility] Work Phone: Protein [Mass/Vol] 8.0 g/dL 6.4-8.2 [facility] Work Phone: [phone] Sodium [Moles/Vol] 134 mmol/L 136-145 [facility] Work Phone: [phone] WBC (Bld) [#/Vol] 5.6 10*3/uL 4.4-11.0 [facility] Work Phone: Blood erythrocytes count (nu mber/volume)on 12-24-2021 RBC (Bld) [#/Vol] 3.32 10*6/uL 4.6-6.2 [facility] Work Phone: Blood hemoglobin measurement (mass/volume)on 12-24-2021 Hemoglobin (Bld) [Mass/Vol] 13.4 g/dL 13.0-16.5 [facility] Work Phone: Blood lymphocytes/100 leukoc yteson 12-24-2021 Lymphocytes/100 WBC (Bld) 15.6 % 19-41 [facility] Work Phone: Blood monocytes/100 leukocyt eson 12-24-2021 Monocytes/100 WBC (Bld) 9.5 % 0-10 [facility] Work Phone: Blood platelet mean volumeon 12-24-2021 Platelet mean volume (Bld) [Entitic vol] 9.6 fL 6.2-12.0 [facility] Work Phone: Determination of erythrocyte mean corpuscular volume (MCV)on 12-24-2021 MCV (RBC) [Entitic vol] 112.7 fL 80-94 [facility] Work Phone: Erythrocyte sedimentation ra syed 12-24-2021 ESR (Bld) [Velocity] 37 mm/h 0-20 [facility] Work Phone: Hematocrit Auto (Bld) [Volum e fraction]on 12-24-2021 Hematocrit (Bld) [Volume fraction] 37.4 % 40-54 [facility] Work Phone: INR in Blood by Coagulation assayon 12-24-2021 INR Coag (Bld) [Relative time] 1.7 {INR} [facility] Work Phone: Laboratory - Chemistry and C hemistry - challengeon 12-24-2021 ALP [Catalytic activity/Vol] 231 U/L 45-117 [facility] Work Phone: ALT [Catalytic activity/Vol] 47 U/L 16-61 [facility] Work Phone: CO2 [Moles/Vol] 27.0 mmol/L 21.0-32.0 [facility] Work Phone: Globulin (S) [Mass/Vol] 5.1 g/dL 2.2-4.2 [facility] Work Phone: Urea nitrogen/Creatinine [Mass ratio] 14.8 mg/mg 10-20 [facility] Work Phone: Laboratory - Coagulationon 0 12-24-2021 PT Coag (PPP) [Time] 19.3 s 11.7-14.9 [facility] Work Phone: Laboratory - Hematology and Cell countson 12-24-2021 Erythrocyte distribution width (RBC) [Entitic vol] 53.7 fL 35.1-43.9 [facility] Work Phone: Erythrocyte distribution width (RBC) [Ratio] 12.9 % 11.6-14.6 [facility] Work Phone: Immature granulocytes/100 WBC (Bld) 0.200 % 0.0-0.9 [facility] Work Phone: Comment on above: IG% - Immature Granu locytes (promyelocytes, myelocytes and metamyelocytes) > 1% indicates that a LEFT SHIFT is Present. MCH (RBC) [Entitic mass] 40.4 pg 27.0-32.0 [facility] Work Phone: Nucleated RBC/100 WBC (Bld) [Ratio] 0 % 0-5 [facility] Work Phone: MCHC Auto (RBC) [Mass/Vol]on 12-24-2021 MCHC (RBC) [Mass/Vol] 35.8 g/dL 32-36 [facility] Work Phone: No Panel Informationon 12-24 Estimated GFR (MDRD) Amer 120 mL/min >60 [facility] Work Phone: Comment on above: GFR Calc Estimated GFR (MDRD) Non-Af Amer 99 mL/min >60 [facility] Work Phone: Comment on above: Non- GFR Calc Platelets bldon 12-24-2021 Platelets (Bld) [#/Vol] 105 10*3/uL 150-450 [facility] Work Phone: Serum or plasma C reactive p rotein measurement (mass/volume)on 12-24-2021 CRP [Mass/Vol] 3.33 mg/L 0.0-3.0 [facility] Work Phone: Comment on above: C-Reactive Protein ( CRP) provides useful information for thediagnosis, therapy and monitoring of inflammatory processesand associated diseases. For the evaluation of Relative Riskfor Cardiovascular Disease, a High Sensitivity CRP (HSCRP)should be ordered. Serum or plasma albumin leslye urement (mass/volume)on 12-24-2021 Albumin [Mass/Vol] 2.9 g/dL 3.2-5.0 [facility] Work Phone: Serum or plasma albumin/glob ulin mass ratioon 12-24-2021 Albumin/Globulin [Mass ratio] 0.6 {ratio} 0.9-2.4 [facility] Work Phone: Serum or plasma calcium leslye urement (mass/volume)on 12-24-2021 Calcium [Mass/Vol] 8.9 mg/dL 8.5-10.1 [facility] Work Phone: Serum or plasma creatinine m easurement (mass/volume)on 12-24-2021 Creatinine [Mass/Vol] 0.88 mg/dL 0.70-1.30 [facility] Work Phone: Comment on above: The validity of the calculated GFR & GFRAA in patients over 70 years has not been determined. Clinical correlation is essential. Serum or plasma urea nitroge n measurement (mass/volume)on 12-24-2021 Urea nitrogen [Mass/Vol] 13 mg/dL 7-18 [facility] Work Phone: Thin prep Papanicolaou smear with manual screeningon 12-24-2021 Thin prep Papanicolaou smear with manual screening 66 U/L 15-37 [facility] Work Phone: Thin prep Papanicolaou smear with manual screening 6 5-15 [facility] Work Phone: Thin prep Papanicolaou smear with manual screening 242 U/L 87-241 [facility] Work Phone: Basophil percentageon 2021 Chloride [Moles/Vol] 99 mmol/L 98-107 [facility] Work Phone: Glucose [Mass/Vol] 137 mg/dL 74-106 [facility] Work Phone: Comment on above: Fasting Glucose resu lt greater than or equal to 126 mg/dL suggests DIABETES MELLITUS per A.D.A. criteria. Potassium [Moles/Vol] 4.7 mmol/L 3.5-5.1 [facility] Work Phone: Sodium [Moles/Vol] 133 mmol/L 136-145 [facility] Work Phone: Laboratory - Chemistry and C hemistry - challengeon 12-08-2021 CO2 [Moles/Vol] 28.0 mmol/L 21.0-32.0 [facility] Work Phone: Urea nitrogen/Creatinine [Mass ratio] 22.4 mg/mg 10-20 [facility] Work Phone: Laboratory - Hematology and Cell countson 12-08-2021 HbA1c (Bld) [Mass fraction] 4.3 % 4.2-6.3 [facility] Work Phone: No Panel Informationon 12-08 Insulin Level 118.4 mU/L 2.6-37.6 [facility] Work Phone: Comment on above: Please Note: INSULIN METHOD & REFERENCE RANGE CHANGEEffective 07/27/2017. Estimated GFR (MDRD) Amer 124 mL/min >60 [facility] Work Phone: Comment on above: GFR Calc Estimated GFR (MDRD) Non-Af Amer 102 mL/min >60 [facility] Work Phone: Comment on above: Non- GFR Calc Serum or plasma calcium leslye urement (mass/volume)on 12-08-2021 Calcium [Mass/Vol] 8.9 mg/dL 8.5-10.1 [facility] Work Phone: Serum or plasma creatinine m easurement (mass/volume)on 12-08-2021 Creatinine [Mass/Vol] 0.85 mg/dL 0.70-1.30 [facility] Work Phone: Comment on above: The validity of the calculated GFR & GFRAA in patients over 70 years has not been determined. Clinical correlation is essential. Serum or plasma urea nitroge n measurement (mass/volume)on 12-08-2021 Urea nitrogen [Mass/Vol] 19 mg/dL 7-18 [facility] Work Phone: Thin prep Papanicolaou smear with manual screeningon 12-08-2021 Thin prep Papanicolaou smear with manual screening 6 5-15 [facility] Work Phone: Whole blood hemoglobin A1c/t otal hemoglobin ratio (mass fraction)on 12-08-2021 HbA1c (Bld) [Mass fraction] 4.2 % 3.8-5.6 [facility] Work Phone: Comment on above: Normal < 5.7 % Predi abetic 5.7 - 6.4 % Diabetic >or= 6.5 % Please note range changes. Glucose Glucometer (BldC) [M ass/Vol]on 12-02-2021 Glucose [Mass/Vol] 109 mg/dL 74-106 [facility] Work Phone: Comment on above: MANAGEMENT OF PATIEN T CARE PER NURSING PROTOCOL Absolute lymphocyte counton 11-29-2021 Lymphocytes Auto (Unsp spec) [#/Vol] 1.07 10*3/uL 0.83-4.51 [facility] Work Phone: Basophil percentageon 2021 Ammonia (P) [Moles/Vol] 56.0 umol/L 11-32 [facility] Work Phone: Basophils/100 WBC (Bld) 0.7 % 0-1 [facility] Work Phone: Bilirubin [Mass/Vol] 3.90 mg/dL 0.20-1.00 [facility] Work Phone: Comment on above: For patients on eltr ombopag therapy, use of Dimension [place] TBIL is not recommended. Chloride [Moles/Vol] 103 mmol/L 98-107 [facility] Work Phone: Eosinophils/100 WBC (Bld) 5.1 % 0-5 [facility] Work Phone: [phone] Glucose [Mass/Vol] 143 mg/dL 74-106 [facility] Work Phone: Comment on above: Fasting Glucose resu lt greater than or equal to 126 mg/dL suggests DIABETES MELLITUS per A.D.A. criteria. Neutrophils (Bld) [#/Vol] 3.7 10*3/uL 2.0-7.7 [facility] Work Phone: Neutrophils/100 WBC (Bld) 63.4 % 47-70 [facility] Work Phone: [phone] Potassium [Moles/Vol] 4.5 mmol/L 3.5-5.1 [facility] Work Phone: [phone] Protein [Mass/Vol] 7.2 g/dL 6.4-8.2 [facility] Work Phone: [phone] Sodium [Moles/Vol] 138 mmol/L 136-145 [facility] Work Phone: [phone] WBC (Bld) [#/Vol] 5.9 10*3/uL 4.4-11.0 [facility] Work Phone: [phone] Blood erythrocytes count (nu mber/volume)on 11-29-2021 RBC (Bld) [#/Vol] 2.73 10*6/uL 4.6-6.2 [facility] Work Phone: Blood hemoglobin measurement (mass/volume)on 11-29-2021 Hemoglobin (Bld) [Mass/Vol] 11.3 g/dL 13.0-16.5 [facility] Work Phone: Blood lymphocytes/100 leukoc yteson 11-29-2021 Lymphocytes/100 WBC (Bld) 18.3 % 19-41 [facility] Work Phone: Blood monocytes/100 leukocyt eson 11-29-2021 Monocytes/100 WBC (Bld) 11.8 % 0-10 [facility] Work Phone: Blood platelet mean volumeon 11-29-2021 Platelet mean volume (Bld) [Entitic vol] 9.3 fL 6.2-12.0 [facility] Work Phone: Determination of erythrocyte mean corpuscular volume (MCV)on 11-29-2021 MCV (RBC) [Entitic vol] 116.1 fL 80-94 [facility] Work Phone: Direct bilirubinon 2 Bilirubin.direct [Mass/Vol] 1.80 mg/dL 0.00-0.30 [facility] Work Phone: Hematocrit Auto (Bld) [Volum e fraction]on 11-29-2021 Hematocrit (Bld) [Volume fraction] 31.7 % 40-54 [facility] Work Phone: INR in Blood by Coagulation assayon 11-29-2021 INR Coag (Bld) [Relative time] 1.8 {INR} [facility] Work Phone: Laboratory - Chemistry and C hemistry - challengeon 11-29-2021 ALP [Catalytic activity/Vol] 253 U/L 45-117 [facility] Work Phone: ALT [Catalytic activity/Vol] 68 U/L 16-61 [facility] Work Phone: CO2 [Moles/Vol] 29.0 mmol/L 21.0-32.0 [facility] Work Phone: Globulin (S) [Mass/Vol] 4.6 g/dL 2.2-4.2 [facility] Work Phone: Urea nitrogen/Creatinine [Mass ratio] 18.4 mg/mg 10-20 [facility] Work Phone: Laboratory - Coagulationon 0 11-29-2021 PT Coag (PPP) [Time] 20.7 s 11.7-14.9 [facility] Work Phone: Laboratory - Hematology and Cell countson 11-29-2021 Erythrocyte distribution width (RBC) [Entitic vol] 61.1 fL 35.1-43.9 [facility] Work Phone: Erythrocyte distribution width (RBC) [Ratio] 14.2 % 11.6-14.6 [facility] Work Phone: Immature granulocytes/100 WBC (Bld) 0.700 % 0.0-0.9 [facility] Work Phone: Comment on above: IG% - Immature Granu locytes (promyelocytes, myelocytes and metamyelocytes) > 1% indicates that a LEFT SHIFT is Present. MCH (RBC) [Entitic mass] 41.4 pg 27.0-32.0 [facility] Work Phone: Nucleated RBC/100 WBC (Bld) [Ratio] 0 % 0-5 [facility] Work Phone: MCHC Auto (RBC) [Mass/Vol]on 11-29-2021 MCHC (RBC) [Mass/Vol] 35.6 g/dL 32-36 [facility] Work Phone: No Panel Informationon 11-29 Estimated GFR (MDRD) Amer 113 mL/min >60 [facility] Work Phone: Comment on above: GFR Calc Estimated GFR (MDRD) Non-Af Amer 93 mL/min >60 [facility] Work Phone: Comment on above: Non- GFR Calc Platelets bldon 11-29-2021 Platelets (Bld) [#/Vol] 111 10*3/uL 150-450 [facility] Work Phone: Serum or plasma albumin leslye urement (mass/volume)on 11-29-2021 Albumin [Mass/Vol] 2.6 g/dL 3.2-5.0 [facility] Work Phone: Serum or plasma albumin/glob ulin mass ratioon 11-29-2021 Albumin/Globulin [Mass ratio] 0.6 {ratio} 0.9-2.4 [facility] Work Phone: Serum or plasma calcium leslye urement (mass/volume)on 11-29-2021 Calcium [Mass/Vol] 8.8 mg/dL 8.5-10.1 [facility] Work Phone: Serum or plasma creatinine m easurement (mass/volume)on 11-29-2021 Creatinine [Mass/Vol] 0.92 mg/dL 0.70-1.30 [facility] Work Phone: Comment on above: The validity of the calculated GFR & GFRAA in patients over 70 years has not been determined. Clinical correlation is essential. Serum or plasma urea nitroge n measurement (mass/volume)on 11-29-2021 Urea nitrogen [Mass/Vol] 17 mg/dL 7-18 [facility] Work Phone: Thin prep Papanicolaou smear with manual screeningon 11-29-2021 Thin prep Papanicolaou smear with manual screening 90 U/L 15-37 [facility] Work Phone: Thin prep Papanicolaou smear with manual screening 6 5-15 [facility] Work Phone: Basophil percentageon 2021 Basophil percentage 0 SEEN /hpf 0-5 [facility] Work Phone: Bilirubin Test strip Ql (U)o n 11-19-2021 Bilirubin Ql (U) Negative Negative [facility] Work Phone: Ketones Test strip Ql (U)on 11-19-2021 Ketones Ql (U) Negative Negative [facility] Work Phone: Mucus LM Ql (Urine sed)on Mucus Ql (Urine sed) 0 SEEN /hpf [facility] Work Phone: Nitrite Test strip Ql (U)on 11-19-2021 Nitrite Ql (U) Negative Negative [facility] Work Phone: No Panel Informationon 11-19 Prostate Specific Antigen Screen 0.10 ng/mL 0.00-4.00 [facility] Work Phone: Comment on above: This test was perfor med using the TPSA assay method for [employer] chemistry system. Values obtained with differentassay methods cannot be used interchangably.When changing PSA assays in the course of monitoring apatient, additional sequential testing should be carriedout to confirm baseline values. Protein Test strip Ql (U)on 11-19-2021 Protein Ql (U) Negative Negative [facility] [facility] Work [facility]: Squamous epithelial cells de tection in urine sediment by light microscopyon 11-19-2021 Epithelial cells.squamous LM Ql (Urine sed) 0 SEEN /hpf 0-5 [facility] Work Phone: Urine blood detectionon RBC Ql (U) Negative Negative [facility] Work Phone: RBC Ql (U) 0 SEEN /hpf 0-5 [facility] Work Phone: Urine clarityon 11-19-2021 Clarity (U) Clear Clear [facility] Work Phone: Urine color determinationon 11-19-2021 Color (U) Yellow Yellow [facility] Work Phone: Urine glucose detectionon Glucose Ql (U) Normal mg/dl Normal [facility] Work Phone: Urine leukocyte esterase det ection by dipstickon 11-19-2021 Leukocyte esterase Test strip Ql (U) Negative Negative [facility] Work Phone: Urine pHon 11-19-2021 pH (U) 6.0 [pH] 5.0 - 8.0 [facility] Work Phone: Urine sediment bacteria coun t by microscopy (number/high power field)on 11-19-2021 Bacteria LM.HPF (Urine sed) [#/Area] 0 /[HPF] None Seen [facility] Work Phone: Urine specific gravity measu rementon 11-19-2021 Specific gravity (U) [Rel density] 1.010 1.002-1.030 [facility] Work Phone: Urobilinogen Auto test strip Ql (U)on 11-19-2021 Urobilinogen Ql (U) Normal mg/dl Normal [facility] Work Phone: Basophil percentageon 2021 Bilirubin [Mass/Vol] 3.60 mg/dL 0.20-1.00 [facility] Work Phone: Comment on above: For patients on eltr ombopag therapy, use of Dimension [place] TBIL is not recommended. Chloride [Moles/Vol] 104 mmol/L 98-107 [facility] Work Phone: Glucose [Mass/Vol] 123 mg/dL 74-106 [facility] Work Phone: Comment on above: Fasting Glucose resu lt from 100 to 125 mg/dL suggests IMPAIRED HOMEOSTASIS per A.D.A. criteria. Potassium [Moles/Vol] 4.9 mmol/L 3.5-5.1 [facility] Work Phone: Protein [Mass/Vol] 7.3 g/dL 6.4-8.2 [facility] Work Phone: Sodium [Moles/Vol] 137 mmol/L 136-145 [facility] Work Phone: INR in Blood by Coagulation assayon 11-12-2021 INR Coag (Bld) [Relative time] 1.7 {INR} [facility] Work Phone: Laboratory - Chemistry and C hemistry - challengeon 11-12-2021 ALP [Catalytic activity/Vol] 275 U/L 45-117 [facility] Work Phone: ALT [Catalytic activity/Vol] 57 U/L 16-61 [facility] Work Phone: CO2 [Moles/Vol] 29.0 mmol/L 21.0-32.0 [facility] Work Phone: Globulin (S) [Mass/Vol] 4.7 g/dL 2.2-4.2 [facility] Work Phone: Urea nitrogen/Creatinine [Mass ratio] 30.4 mg/mg 10-20 [facility] Work Phone: Laboratory - Coagulationon 0 11-12-2021 PT Coag (PPP) [Time] 19.7 s 11.7-14.9 [facility] Work Phone: No Panel Informationon 11-12 Estimated GFR (MDRD) Amer 100 mL/min >60 [facility] Work Phone: Comment on above: GFR Calc Estimated GFR (MDRD) Non-Af Amer 83 mL/min >60 [facility] Work Phone: Comment on above: Non- GFR Calc Serum or plasma albumin leslye urement (mass/volume)on 11-12-2021 Albumin [Mass/Vol] 2.6 g/dL 3.2-5.0 [facility] Work Phone: Serum or plasma albumin/glob ulin mass ratioon 11-12-2021 Albumin/Globulin [Mass ratio] 0.6 {ratio} 0.9-2.4 [facility] Work Phone: Serum or plasma calcium leslye urement (mass/volume)on 11-12-2021 Calcium [Mass/Vol] 8.9 mg/dL 8.5-10.1 [facility] Work Phone: Serum or plasma creatinine m easurement (mass/volume)on 11-12-2021 Creatinine [Mass/Vol] 1.02 mg/dL 0.70-1.30 [facility] Work Phone: Comment on above: The validity of the calculated GFR & GFRAA in patients over 70 years has not been determined. Clinical correlation is essential. Serum or plasma urea nitroge n measurement (mass/volume)on 11-12-2021 Urea nitrogen [Mass/Vol] 31 mg/dL 7-18 [facility] Work Phone: Thin prep Papanicolaou smear with manual screeningon 11-12-2021 Thin prep Papanicolaou smear with manual screening 69 U/L 15-37 [facility] Work Phone: Thin prep Papanicolaou smear with manual screening 4 5-15 [facility] Work Phone: Absolute lymphocyte counton 10-27-2021 Lymphocytes Auto (Unsp spec) [#/Vol] 1.08 10*3/uL 0.83-4.51 [facility] Work Phone: Basophil percentageon 2021 Basophils/100 WBC (Bld) 1.1 % 0-1 [facility] Work Phone: Bilirubin [Mass/Vol] 3.60 mg/dL 0.20-1.00 [facility] Work Phone: Comment on above: For patients on eltr ombopag therapy, use of Dimension [place] TBIL is not recommended. Chloride [Moles/Vol] 103 mmol/L 98-107 [facility] Work Phone: Eosinophils/100 WBC (Bld) 5.2 % 0-5 [facility] Work Phone: Glucose [Mass/Vol] 126 mg/dL 74-106 [facility] Work Phone: Comment on above: Fasting Glucose resu lt greater than or equal to 126 mg/dL suggests DIABETES MELLITUS per A.D.A. criteria. Neutrophils (Bld) [#/Vol] 3.5 10*3/uL 2.0-7.7 [facility] Work Phone: Neutrophils/100 WBC (Bld) 63.3 % 47-70 [facility] Work Phone: Potassium [Moles/Vol] 4.2 mmol/L 3.5-5.1 [facility] Work [facility]: Protein [Mass/Vol] 7.6 g/dL 6.4-8.2 [facility] Work Phone: Sodium [Moles/Vol] 136 mmol/L 136-145 [facility] Work Phone: WBC (Bld) [#/Vol] 5.6 10*3/uL 4.4-11.0 [facility] Work Phone: Bilirubin Test strip Ql (U)o n 10-27-2021 Bilirubin Ql (U) Negative Negative [facility] Work Phone: Blood erythrocytes count (nu mber/volume)on 10-27-2021 RBC (Bld) [#/Vol] 2.92 10*6/uL 4.6-6.2 [facility] Work Phone: Blood hemoglobin measurement (mass/volume)on 10-27-2021 Hemoglobin (Bld) [Mass/Vol] 11.6 g/dL 13.0-16.5 [facility] Work Phone: Blood lymphocytes/100 leukoc yteson 10-27-2021 Lymphocytes/100 WBC (Bld) 19.4 % 19-41 [facility] Work Phone: Blood monocytes/100 leukocyt eson 10-27-2021 Monocytes/100 WBC (Bld) 10.6 % 0-10 [facility] Work Phone: Blood platelet mean volumeon 10-27-2021 Platelet mean volume (Bld) [Entitic vol] 10.5 fL 6.2-12.0 [facility] Work Phone: Determination of erythrocyte mean corpuscular volume (MCV)on 10-27-2021 MCV (RBC) [Entitic vol] 111.3 fL 80-94 [facility] Work Phone: Dilute Junior's viper venom timeon 10-27-2021 dRVVT Coag (PPP) [Time] 37.9 s [facility] Work Phone: Hematocrit Auto (Bld) [Volum e fraction]on 10-27-2021 Hematocrit (Bld) [Volume fraction] 32.5 % 40-54 [facility] Work Phone: INR in Blood by Coagulation assayon 10-27-2021 INR Coag (Bld) [Relative time] 1.7 {INR} [facility] Work Phone: Ketones Test strip Ql (U)on 10-27-2021 Ketones Ql (U) Negative Negative [facility] Work Phone: Laboratory - Chemistry and C hemistry - challengeon 10-27-2021 ALP [Catalytic activity/Vol] 268 U/L 45-117 [facility] Work Phone: ALT [Catalytic activity/Vol] 69 U/L 16-61 [facility] Work Phone: CO2 [Moles/Vol] 28.0 mmol/L 21.0-32.0 [facility] Work Phone: Globulin (S) [Mass/Vol] 4.8 g/dL 2.2-4.2 [facility] Work Phone: Urea nitrogen/Creatinine [Mass ratio] 15.0 mg/mg 10-20 [facility] Work Phone: Laboratory - Coagulationon 0 10-27-2021 aPTT Coag (Bld) [Time] 43.8 s 24.1-36.2 [facility] Work Phone: PT Coag (PPP) [Time] 19.5 s 11.7-14.9 [facility] Work Phone: Laboratory - Hematology and Cell countson 10-27-2021 Erythrocyte distribution width (RBC) [Entitic vol] 54.0 fL 35.1-43.9 [facility] Work Phone: Erythrocyte distribution width (RBC) [Ratio] 13.2 % 11.6-14.6 [facility] Work Phone: Immature granulocytes/100 WBC (Bld) 0.400 % 0.0-0.9 [facility] Work Phone: Comment on above: IG% - Immature Granu locytes (promyelocytes, myelocytes and metamyelocytes) > 1% indicates that a LEFT SHIFT is Present. MCH (RBC) [Entitic mass] 39.7 pg 27.0-32.0 [facility] Work Phone: Nucleated RBC/100 WBC (Bld) [Ratio] 0 % 0-5 [facility] Work Phone: Laboratory - Miscellaneous t estson 10-27-2021 Service comment (Unsp spec) [Interp] Comment [facility] Work Phone: Comment on above: Results do not indic ate the presence of a LupusAnticoagulant: abnormal high screening results (PTT-LA,dRVVT, mixing studies), may be due to medication (heparin,warfarin, aspirin), Factor inhibitors, anticardiolipinantibodies, or poor specimen integrity.Performed at: [address] [id number] Director: Ermelinda Birmingham MD, Phone: [phone] MCHC Auto (RBC) [Mass/Vol]on 10-27-2021 MCHC (RBC) [Mass/Vol] 35.7 g/dL 32-36 [facility] Work Phone: Nitrite Test strip Ql (U)on 10-27-2021 Nitrite Ql (U) Negative Negative [facility] Work Phone: No Panel Informationon 10-27 Estimated GFR (MDRD) Amer 103 mL/min >60 [facility] Work Phone: Comment on above: GFR Calc Estimated GFR (MDRD) Non-Af Amer 85 mL/min >60 [facility] Work Phone: Comment on above: Non- GFR Calc Miscellaneous Test See comment [facility] Work Phone: Comment on above: TEST RESULT LIMITSHe red.Hemochromatosis, DNA Hereditary Hemochromatosis Results: c.845G>A (p.Zld828Fzc) - Not Detected c.187C>G (p.Syj03Vnx) - Detected, heterozygous c.193A>T (p.Szb16Bgn) - Not Detected Not associated with increased risk to develop clinical symptoms of Hereditary Hemochromatosis. In symptomatic individuals, other causes of iron overload should be evaluated. See Additional Information and Comments.Please Note: Additional Clinical Information: Hereditary hemochromatosis (HFE related) is an autosomal recessive iron storage disorder. Patients may have a genetic diagnosis of hereditary hemochromatosis and never show clinical symptoms. Clinical symptoms typically appear between 40 to 60 years in males and after menopause in females. Signs and symptoms may include organ damage, primarily in the liver, risk for hepatocellular carcinoma, diabetes, and heart disease due to iron accumulation. Life expectancy may be decreased in individuals who develop cirrhosis. Treatment for clinically symptomatic individuals may include therapeutic phlebotomy. Liver transplant may be used to treat end stage liver failure. For preventive care, monitoring for iron overload is recommended for patients who are homozygous for c.845G>A (p.Bxe409Tke) and have yet to experience clinical symptoms.Comments: The most common HFE variants associated with hereditary hemochromatosis are c.845G>A (p.Grm370Ams), c.187C>G (p.Hlw39Paw), c.193A>T (p.Emv80Ask). While patients homozygous for c.845G>A (p.Feb969Eaw) are the most likely to present clinical symptoms, less than 10% develop clinically significant iron overload with tissue and organ damage. Genetic counseling is recommended to discuss the potential clinical implications of positive results, as well as recommendations for testing family members. Genetic Coordinators are available for health care providers to discuss results at [phone] Test Details: Three variants analyzed: c.845G>A (p.Drm564Qjm), commonly referred to as C282Y c.187C>G (p.Edr15Rhx), commonly referred to as H63D c.193A>T (p.Fjv81Jvu), commonly referred to as J72HNcxtfkk/Limitations: DNA Analysis of the HFE gene (NM_000410.4) was performed by PCR amplification followed by restriction enzyme digestion analyses. Results must be combined with clinical information for the most accurate interpretation. Molecular-based testing is highly accurate, but as in any laboratory test, diagnostic errors may occur. False positive or false negative results may occur for reasons that include genetic variants, blood transfusions, bone marrow transplantation, somatic or tissue-specific mosaicism, mislabeled samples, or erroneous representation of family relationships. This test was developed and its performance characteristics determined by [employer]. It has not been cleared or approved by the Food and Drug Administration.References:Justin BR, Nestor PC, Anmol KV, Mauro LW, Alen ; [employer]. Diagnosis and management of hemochromatosis: 2011 practice guideline by the [employer] Liver Diseases. Hepatology. 2011 Jan;54(1):328-43. doi: 10.1002/hep.55951. PMID: 80534246; PMCID: WDW4790869.Rose G, Rolanda P, Tam DW, Bryon H, Jacque O, Slade S, Balta I, Musa M, Madie S. [facility] best practice guidelines for the molecular genetic diagnosis of hereditary hemochromatosis (HH). Eur J Hum Tori. 2016 Apr;24(4):479-95. doi: 10.1038/ejhg.2015.128. Epub 2014Jan 21. PMID: 19590067; PMCID: EWT2689425. Rachna Marquez, PhD, Katherine Allan, PhD, Isha Crockett, PhD, Earl Deleon, PhD, BROOKE Gómez, PhD, Tyson Morrow, PhD, Wyatt Chappell, PhD, [facility] TESTING PERFORMED AT [facility]. ORIGINAL REPORT ON FILE IN LAB CONTAINS ADDITIONAL TEST SITE INFORMATION. Miscellaneous Test Comment MAILED SPECIMEN [facility] Work Phone: Platelets bldon 10-27-2021 Platelets (Bld) [#/Vol] 108 10*3/uL 150-450 [facility] Work Phone: Protein Test strip Ql (U)on 10-27-2021 Protein Ql (U) Negative Negative [facility] Work Phone: Serum or plasma albumin leslye urement (mass/volume)on 10-27-2021 Albumin [Mass/Vol] 2.8 g/dL 3.2-5.0 [facility] Work Phone: Serum or plasma albumin/glob ulin mass ratioon 10-27-2021 Albumin/Globulin [Mass ratio] 0.6 {ratio} 0.9-2.4 [facility] Work Phone: Serum or plasma calcium leslye urement (mass/volume)on 10-27-2021 Calcium [Mass/Vol] 9.2 mg/dL 8.5-10.1 [facility] Work Phone: Serum or plasma creatinine m easurement (mass/volume)on 10-27-2021 Creatinine [Mass/Vol] 1.00 mg/dL 0.70-1.30 [facility] Work Phone: Comment on above: The validity of the calculated GFR & GFRAA in patients over 70 years has not been determined. Clinical correlation is essential. Serum or plasma urea nitroge n measurement (mass/volume)on 10-27-2021 Urea nitrogen [Mass/Vol] 15 mg/dL 7-18 [facility] Work Phone: Thin prep Papanicolaou smear with manual screeningon 10-27-2021 Thin prep Papanicolaou smear with manual screening 88 U/L 15-37 [facility] Work Phone: Thin prep Papanicolaou smear with manual screening 5 5-15 [facility] Work Phone: Thin prep Papanicolaou smear with manual screening 45.2 sec [facility] Work Phone: Thin prep Papanicolaou smear with manual screening 0.71 Ratio [facility] Work Phone: Thin prep Papanicolaou smear with manual screening 49.0 sec [facility] Work Phone: Thin prep Papanicolaou smear with manual screening Comment: [facility] Work Phone: Comment on above: No lupus anticoagula nt was detected. Thrombin time in platelet po or plasmaon 10-27-2021 Thrombin time Coag (PPP) [Time] 20.3 sec [facility] Work Phone: Urine blood detectionon 10-15 RBC Ql (U) Negative Negative [facility] Work Phone: Urine clarityon 10-27-2021 Clarity (U) Clear Clear [facility] Work Phone: Urine color determinationon 10-27-2021 Color (U) Yellow Yellow [facility] Work Phone: Urine creatinine measurement (mass/volume)on 10-27-2021 Creatinine (U) [Mass/Vol] 31.10 mg/dL NO RANGE EST. [facility] Work Phone: Urine glucose detectionon Glucose Ql (U) Normal mg/dl Normal [facility] Work Phone: Urine leukocyte esterase det ection by dipstickon 10-27-2021 Leukocyte esterase Test strip Ql (U) Negative Negative [facility] Work Phone: Urine pHon 10-27-2021 pH (U) 7.0 [pH] [facility] Work Phone: Urine protein measurement (m ass/volume)on 10-27-2021 Protein (U) [Mass/Vol] mg/dL 0.0-11.8 [facility] Work Phone: Urine protein/creatinine mas s ratioon 10-27-2021 Protein/Creatinine (U) [Mass ratio] TNP [facility] Work Phone: Comment on above: Test not performed Urine specific gravity measu rementon 10-27-2021 Specific gravity (U) [Rel density] 1.010 [facility] Work Phone: Urobilinogen Auto test strip Ql (U)on 10-27-2021 Urobilinogen Ql (U) Normal mg/dl Normal [facility] Work Phone: CNPNon 10-19-2021 CNPN Telephone (TXCTMN) -------- ALEX ROJO ([id number]) 1975 [facility] Date Time Provider Department 10/19/21 ASHIA SINHA TXCTMN During your visit today, we recorded the following information about you: Ashia Sinha RN 10/19/2021 3:16 PM Signed Call to pt for liver transplant intake. Left vm for pt to return call to the office. Ashia Sinha RN Allergies As of Date: 10/19/2021 (Not on File) Date Reviewed: Never Reviewed Reason for Visit: Referral - Liver Txp [[id number]] Cmt: Intake-LM Problem List As Of Date: 10/19/2021 (None) Encounter Status:Closed by ASHIA SINHA on [facility]19/[facility] ALEX ROJO ([id number]) 1975 [facility] Date Time Provider Department 10/19/21 ASHIA SINHA TXGERAMN During your visit today, we recorded the following information about you: Ashia Sinha RN 10/19/2021 3:41 PM Signed I received a phone call back from the pt. He states that he is not willing to get the covid vaccination which is a requirement to be listed at [facility]. He was advised that he can seek other transplant centers that may not require the vaccination and he will look into that. I called and left a message with the referring, Debra Lipscomb COMMODITY SPECIALIST at [phone] explaining that we will not proceed with transplant evaluation at this time. Referral for transplant closed. Ashia Sinha RN Allergies As of Date: 10/19/2021 (Not on File) Date Reviewed: Never Reviewed Reason for Visit: Referral - Liver Txp [[id number]] Cmt: referral closed Problem List As Of Date: 10/19/2021 (None) Encounter Status:Closed by ASHIA SINHA on 10/19/21 [facility] ALEX ROJO ([id number]) 1975 M [facility] Date Time Provider Department 10/13/21 LIVER TXP COORDINATOR TXCTMN During your visit today, we recorded the following information about you: Eva Guerra 10/13/2021 11:04 AM Signed LIVER TRANSPLANT REFERRAL Alex Rojo [id number] MyCHART Is the patient signed up for MyChart? Yes If YES - send patient the OLT New Referral Message If NO - obtain their email address: email address: [email or web address] CORRECTED: [email or web address] Diagnosis: Acute alcoholic hepatitis-Last drink-over 1 year ago Date of diagnosis: 10-11-2021 MELD Na: 25 COVID-19 Are you vaccinated for COVID19? No If you are vaccinated, which vaccine did you receive? N/A Patient refuses getting the COVID19 Vaccine How long does it take you to drive to [facility]? 1 hour Who will accompany you to your transplant evaluation? Patient's Nicolle. Referring MD: Debra Lipscomb, YOGI Gastro MD: Dr. Sullivan Friend Have you ever been evaluated for liver transplant? No If yes, where? N/A Status: N/A Outside Records Needed: Yes [facility] Requested? Yes Where are outside records being requested from: [facility] Gastroenterology Full or Partial Evaluation? Full Do you have a potential living donor? Not as of yet A nurse will call for medical intake, who should she call and at what phone number? [phone] Please be aware that the call will come from a restricted phone number for intake. Additional Comments: Recently dx'd with diabetes, not on insulin, will see stapler hand on 10-14-2021. Patient recently moved back to [place] 2 months ago from [place]. Liver bx done at [facility]. Question of Fir[place]/CT scan done at [place]. One year ago Eva Guerra Allergies As of Date: 10/13/2021 (Not on File) Date Reviewed: Never Reviewed Reason for Visit: Referral - Liver Txp [[id number]] Primary Visit Diagnosis:Acute alcoholic hepatitis [K70.10] Order(s):CONSULT TO TRANSPLANT CENTER [[id number]] Order #: [id number]: 1 Problem List As Of Date: 10/13/2021 (None) Encounter Status:Closed by EVA GUERRA on 10/13/21 [facility] in Blood by Coagulation assayon 10-11-2021 INR Coag (Bld) [Relative time] 1.7 {INR} [facility] Work Phone: [phone] Laboratory - Coagulationon 0 10-11-2021 aPTT Coag (Bld) [Time] 42.9 s 24.1-36.2 [facility] Work Phone: [phone] PT Coag (PPP) [Time] 18.9 s 11.7-14.9 [facility] Work Phone: Platelets bldon 10-11-2021 Platelets (Bld) [#/Vol] 113 10*3/uL 150-450 [facility] Work Phone: [phone] Absolute lymphocyte counton 09-29-2021 Lymphocytes Auto (Unsp spec) [#/Vol] 1.34 10*3/uL 0.83-4.51 [facility] Work Phone: Basophil percentageon 2021 Ammonia (P) [Moles/Vol] 75.0 umol/L 11-32 [facility] Work Phone: [phone] Basophils/100 WBC (Bld) 1.0 % 0-1 [facility] Work Phone: Bilirubin [Mass/Vol] 4.70 mg/dL 0.20-1.00 [facility] Work Phone: Comment on above: For patients on eltr ombopag therapy, use of Dimension [place] TBIL is not recommended. Chloride [Moles/Vol] 97 mmol/L 98-107 [facility] Work Phone: [phone] Eosinophils/100 WBC (Bld) 4.6 % 0-5 [facility] Work Phone: [phone] Glucose [Mass/Vol] 142 mg/dL 74-106 [facility] Work Phone: Comment on above: Fasting Glucose resu lt greater than or equal to 126 mg/dL suggests DIABETES MELLITUS per A.D.A. criteria. Neutrophils (Bld) [#/Vol] 5.5 10*3/uL 2.0-7.7 [facility] Work Phone: Neutrophils/100 WBC (Bld) 68.5 % 47-70 [facility] Work Phone: Potassium [Moles/Vol] 4.2 mmol/L 3.5-5.1 [facility] Work Phone: Protein [Mass/Vol] 8.0 g/dL 6.4-8.2 [facility] Work Phone: Sodium [Moles/Vol] 130 mmol/L 136-145 [facility] Work Phone: WBC (Bld) [#/Vol] 8.0 10*3/uL 4.4-11.0 [facility] Work Phone: Blood erythrocytes count (nu mber/volume)on 09-29-2021 RBC (Bld) [#/Vol] 3.14 10*6/uL 4.6-6.2 [facility] Work Phone: Blood hemoglobin measurement (mass/volume)on 09-29-2021 Hemoglobin (Bld) [Mass/Vol] 12.5 g/dL 13.0-16.5 [facility] Work Phone: Blood lymphocytes/100 leukoc yteson 09-29-2021 Lymphocytes/100 WBC (Bld) 16.8 % 19-41 [facility] Work Phone: Blood monocytes/100 leukocyt eson 09-29-2021 Monocytes/100 WBC (Bld) 8.6 % 0-10 [facility] Work Phone: Blood platelet mean volumeon 09-29-2021 Platelet mean volume (Bld) [Entitic vol] 9.7 fL 6.2-12.0 [facility] Work Phone: Determination of erythrocyte mean corpuscular volume (MCV)on 09-29-2021 MCV (RBC) [Entitic vol] 106.4 fL 80-94 [facility] Work Phone: Direct bilirubinon 2 Bilirubin.direct [Mass/Vol] 1.92 mg/dL 0.00-0.30 [facility] Work Phone: Hematocrit Auto (Bld) [Volum e fraction]on 09-29-2021 Hematocrit (Bld) [Volume fraction] 33.4 % 40-54 [facility] Work Phone: INR in Blood by Coagulation assayon 09-29-2021 INR Coag (Bld) [Relative time] 1.7 {INR} [facility] Work Phone: Laboratory - Chemistry and C hemistry - challengeon 09-29-2021 ALP [Catalytic activity/Vol] 198 U/L 45-117 [facility] Work Phone: ALT [Catalytic activity/Vol] 43 U/L 16-61 [facility] Work Phone: CO2 [Moles/Vol] 25.0 mmol/L 21.0-32.0 [facility] Work Phone: Globulin (S) [Mass/Vol] 5.1 g/dL 2.2-4.2 [facility] Work Phone: Urea nitrogen/Creatinine [Mass ratio] 21.9 mg/mg 10-20 [facility] Work Phone: Laboratory - Coagulationon 0 09-29-2021 PT Coag (PPP) [Time] 19.1 s 11.7-14.9 [facility] Work Phone: Laboratory - Hematology and Cell countson 09-29-2021 Erythrocyte distribution width (RBC) [Entitic vol] 52.7 fL 35.1-43.9 [facility] Work Phone: Erythrocyte distribution width (RBC) [Ratio] 13.3 % 11.6-14.6 [facility] Work Phone: Immature granulocytes/100 WBC (Bld) 0.500 % 0.0-0.9 [facility] Work Phone: Comment on above: IG% - Immature Granu locytes (promyelocytes, myelocytes and metamyelocytes) > 1% indicates that a LEFT SHIFT is Present. MCH (RBC) [Entitic mass] 39.8 pg 27.0-32.0 [facility] Work Phone: Nucleated RBC/100 WBC (Bld) [Ratio] 0 % 0-5 [facility] Work Phone: MCHC Auto (RBC) [Mass/Vol]on 09-29-2021 MCHC (RBC) [Mass/Vol] 37.4 g/dL 32-36 [facility] Work Phone: No Panel Informationon 09-29 Estimated GFR (MDRD) Amer 66 mL/min >60 [facility] Work Phone: Comment on above: GFR Calc Estimated GFR (MDRD) Non-Af Amer 55 mL/min >60 [facility] Work Phone: Comment on above: Non- GFR Calc Platelets bldon 09-29-2021 Platelets (Bld) [#/Vol] 135 10*3/uL 150-450 [facility] Work Phone: Serum or plasma albumin leslye urement (mass/volume)on 09-29-2021 Albumin [Mass/Vol] 2.9 g/dL 3.2-5.0 [facility] Work Phone: Serum or plasma albumin/glob ulin mass ratioon 09-29-2021 Albumin/Globulin [Mass ratio] 0.6 {ratio} 0.9-2.4 [facility] Work Phone: Serum or plasma calcium leslye urement (mass/volume)on 09-29-2021 Calcium [Mass/Vol] 8.9 mg/dL 8.5-10.1 [facility] Work Phone: Serum or plasma creatinine m easurement (mass/volume)on 09-29-2021 Creatinine [Mass/Vol] 1.46 mg/dL 0.70-1.30 [facility] Work Phone: Comment on above: The validity of the calculated GFR & GFRAA in patients over 70 years has not been determined. Clinical correlation is essential. Serum or plasma urea nitroge n measurement (mass/volume)on 09-29-2021 Urea nitrogen [Mass/Vol] 32 mg/dL 7-18 [facility] Work Phone: Thin prep Papanicolaou smear with manual screeningon 09-29-2021 Thin prep Papanicolaou smear with manual screening 63 U/L 15-37 [facility] Work Phone: Thin prep Papanicolaou smear with manual screening 8 5-15 [facility] Work Phone: Thin prep Papanicolaou smear with manual screening 218 U/L 87-241 [facility] Work Phone: Absolute lymphocyte counton 09-27-2021 Lymphocytes Auto (Unsp spec) [#/Vol] 1.09 10*3/uL 0.83-4.51 [facility] Work Phone: Basophil percentageon 2021 Ammonia (P) [Moles/Vol] 168.0 umol/L 11-32 [facility] Work Phone: Basophils/100 WBC (Bld) 0.7 % 0-1 [facility] Work Phone: Bilirubin [Mass/Vol] 6.50 mg/dL 0.20-1.00 [facility] Work Phone: Comment on above: For patients on eltr ombopag therapy, use of Dimension [place] TBIL is not recommended. Chloride [Moles/Vol] 98 mmol/L 98-107 [facility] Work Phone: Eosinophils/100 WBC (Bld) 3.2 % 0-5 [facility] Work Phone: Glucose [Mass/Vol] 144 mg/dL 74-106 [facility] Work Phone: Comment on above: Fasting Glucose resu lt greater than or equal to 126 mg/dL suggests DIABETES MELLITUS per A.D.A. criteria. Neutrophils (Bld) [#/Vol] 4.9 10*3/uL 2.0-7.7 [facility] Work Phone: Neutrophils/100 WBC (Bld) 68.7 % 47-70 [facility] Work Phone: Potassium [Moles/Vol] 4.4 mmol/L 3.5-5.1 [facility] Work Phone: [phone] Protein [Mass/Vol] 8.5 g/dL 6.4-8.2 [facility] Work Phone: Sodium [Moles/Vol] 130 mmol/L 136-145 [facility] Work Phone: WBC (Bld) [#/Vol] 7.2 10*3/uL 4.4-11.0 [facility] Work Phone: Blood erythrocytes count (nu mber/volume)on 09-27-2021 RBC (Bld) [#/Vol] 3.14 10*6/uL 4.6-6.2 [facility] Work Phone: Blood hemoglobin measurement (mass/volume)on 09-27-2021 Hemoglobin (Bld) [Mass/Vol] 12.6 g/dL 13.0-16.5 [facility] Work Phone: Blood lymphocytes/100 leukoc yteson 09-27-2021 Lymphocytes/100 WBC (Bld) 15.2 % 19-41 [facility] Work Phone: [phone] Blood monocytes/100 leukocyt eson 09-27-2021 Monocytes/100 WBC (Bld) 11.8 % 0-10 [facility] Work Phone: Blood platelet mean volumeon 09-27-2021 Platelet mean volume (Bld) [Entitic vol] 9.6 fL 6.2-12.0 [facility] Work Phone: Determination of erythrocyte mean corpuscular volume (MCV)on 09-27-2021 MCV (RBC) [Entitic vol] 107.0 fL 80-94 [facility] Work Phone: Direct bilirubinon 2 Bilirubin.direct [Mass/Vol] 2.20 mg/dL 0.00-0.30 [facility] Work Phone: HIV 1 and HIV-2 antibody ass ay with HIV-1 p24 antigen detectionon 09-27-2021 HIV 1+2 Ab+HIV1 p24 Ag IA Ql Non-Reactive Nonreactive [facility] Work Phone: [phone] Hematocrit Auto (Bld) [Volum e fraction]on 09-27-2021 Hematocrit (Bld) [Volume fraction] 33.6 % 40-54 [facility] Work Phone: INR in Blood by Coagulation assayon 09-27-2021 INR Coag (Bld) [Relative time] 1.8 {INR} [facility] Work Phone: Laboratory - Chemistry and C hemistry - challengeon 09-27-2021 ALP [Catalytic activity/Vol] 186 U/L 45-117 [facility] Work Phone: ALT [Catalytic activity/Vol] 43 U/L 16-61 [facility] Work Phone: CO2 [Moles/Vol] 25.0 mmol/L 21.0-32.0 [facility] Work Phone: Globulin (S) [Mass/Vol] 5.5 g/dL 2.2-4.2 [facility] Work Phone: Urea nitrogen/Creatinine [Mass ratio] 22.8 mg/mg 10-20 [facility] Work Phone: Laboratory - Coagulationon 0 09-27-2021 PT Coag (PPP) [Time] 19.9 s 11.7-14.9 [facility] Work Phone: Laboratory - Hematology and Cell countson 09-27-2021 Erythrocyte distribution width (RBC) [Entitic vol] 53.1 fL 35.1-43.9 [facility] Work Phone: Erythrocyte distribution width (RBC) [Ratio] 13.5 % 11.6-14.6 [facility] Work Phone: Immature granulocytes/100 WBC (Bld) 0.400 % 0.0-0.9 [facility] Work Phone: Comment on above: IG% - Immature Granu locytes (promyelocytes, myelocytes and metamyelocytes) > 1% indicates that a LEFT SHIFT is Present. MCH (RBC) [Entitic mass] 40.1 pg 27.0-32.0 [facility] Work Phone: Nucleated RBC/100 WBC (Bld) [Ratio] 0 % 0-5 [facility] Work Phone: MCHC Auto (RBC) [Mass/Vol]on 09-27-2021 MCHC (RBC) [Mass/Vol] 37.5 g/dL 32-36 [facility] Work Phone: No Panel Informationon 09-27 Estimated GFR (MDRD) Amer 81 mL/min >60 [facility] Work Phone: Comment on above: GFR Calc Estimated GFR (MDRD) Non-Af Amer 67 mL/min >60 [facility] Work Phone: Comment on above: Non- GFR Calc Haptoglobin < 10 mg/dL [facility] Work Phone: Comment on above: Performed at: - [address] [id number] Director: Ciro Putnam PhD, Phone: [phone] Platelets bldon 09-27-2021 Platelets (Bld) [#/Vol] 142 10*3/uL 150-450 [facility] Work Phone: Serum or plasma albumin leslye urement (mass/volume)on 09-27-2021 Albumin [Mass/Vol] 3.0 g/dL 3.2-5.0 [facility] Work Phone: Serum or plasma albumin/glob ulin mass ratioon 09-27-2021 Albumin/Globulin [Mass ratio] 0.5 {ratio} 0.9-2.4 [facility] Work Phone: Serum or plasma calcium leslye urement (mass/volume)on 09-27-2021 Calcium [Mass/Vol] 9.0 mg/dL 8.5-10.1 [facility] Work Phone: Serum or plasma creatinine m easurement (mass/volume)on 09-27-2021 Creatinine [Mass/Vol] 1.23 mg/dL 0.70-1.30 [facility] Work Phone: Comment on above: The validity of the calculated GFR & GFRAA in patients over 70 years has not been determined. Clinical correlation is essential. Serum or plasma urea nitroge n measurement (mass/volume)on 09-27-2021 Urea nitrogen [Mass/Vol] 28 mg/dL 7-18 [facility] Work Phone: Thin prep Papanicolaou smear with manual screeningon 09-27-2021 Thin prep Papanicolaou smear with manual screening 61 U/L 15-37 [facility] Work Phone: Thin prep Papanicolaou smear with manual screening 7 5-15 [facility] Work Phone: Thin prep Papanicolaou smear with manual screening 233 U/L 87-241 [facility] Work Phone: Absolute lymphocyte counton 09-26-2021 Lymphocytes Auto (Unsp spec) [#/Vol] 0.80 10*3/uL 0.83-4.51 [facility] Work Phone: Acetaminophen level (mass/vo lume)on 09-26-2021 Acetaminophen (Unsp spec) [Mass/Vol] < 2.0 ug/mL 10.0-30.0 [facility] Work Phone: Basophil percentageon 2021 Basophil percentage 0 SEEN /hpf [facility] Work Phone: Ammonia (P) [Moles/Vol] 82.0 umol/L 11-32 [facility] Work Phone: Basophils/100 WBC (Bld) 0.6 % 0-1 [facility] Work Phone: Bilirubin [Mass/Vol] 7.60 mg/dL 0.20-1.00 [facility] Work Phone: Comment on above: For patients on eltr ombopag therapy, use of Dimension [place] TBIL is not recommended. Chloride [Moles/Vol] 100 mmol/L 98-107 [facility] Work Phone: Eosinophils/100 WBC (Bld) 0.7 % 0-5 [facility] Work Phone: Glucose [Mass/Vol] 184 mg/dL 74-106 [facility] Work Phone: Comment on above: Fasting Glucose resu lt greater than or equal to 126 mg/dL suggests DIABETES MELLITUS per A.D.A. criteria. Neutrophils (Bld) [#/Vol] 5.6 10*3/uL 2.0-7.7 [facility] Work Phone: Neutrophils/100 WBC (Bld) 79.1 % 47-70 [facility] Work Phone: Potassium [Moles/Vol] 4.3 mmol/L 3.5-5.1 [facility] Work Phone: Protein [Mass/Vol] 8.5 g/dL 6.4-8.2 [facility] Work Phone: Sodium [Moles/Vol] 132 mmol/L 136-145 [facility] Work Phone: WBC (Bld) [#/Vol] 7.0 10*3/uL 4.4-11.0 [facility] Work Phone: Bilirubin Test strip Ql (U)o n 09-26-2021 Bilirubin Ql (U) 1 mg/dL Negative [facility] Work Phone: Comment on above: COLOR OF URINE MAY A FFECT DIPSTICK RESULTS. Blood erythrocytes count (nu mber/volume)on 09-26-2021 RBC (Bld) [#/Vol] 3.29 10*6/uL 4.6-6.2 [facility] Work Phone: Blood hemoglobin measurement (mass/volume)on 09-26-2021 Hemoglobin (Bld) [Mass/Vol] 12.9 g/dL 13.0-16.5 [facility] Work Phone: Blood lymphocytes/100 leukoc yteson 09-26-2021 Lymphocytes/100 WBC (Bld) 11.4 % 19-41 [facility] Work Phone: Blood monocytes/100 leukocyt eson 09-26-2021 Monocytes/100 WBC (Bld) 7.8 % 0-10 [facility] Work Phone: Blood platelet mean volumeon 09-26-2021 Platelet mean volume (Bld) [Entitic vol] 9.2 fL 6.2-12.0 [facility] Work Phone: Determination of erythrocyte mean corpuscular volume (MCV)on 09-26-2021 MCV (RBC) [Entitic vol] 106.3 fL 80-94 [facility] Work Phone: Direct bilirubinon 2 Bilirubin.direct [Mass/Vol] 2.19 mg/dL 0.00-0.30 [facility] Work Phone: Hematocrit Auto (Bld) [Volum e fraction]on 09-26-2021 Hematocrit (Bld) [Volume fraction] 35.4 % 40-54 [facility] Work Phone: INR in Blood by Coagulation assayon 09-26-2021 INR Coag (Bld) [Relative time] 1.6 {INR} [facility] Work Phone: Ketones Test strip Ql (U)on 09-26-2021 Ketones Ql (U) 5 mg/dl Negative [facility] Work Phone: Laboratory - Chemistry and C hemistry - challengeon 09-26-2021 ALP [Catalytic activity/Vol] 181 U/L 45-117 [facility] Work Phone: ALT [Catalytic activity/Vol] 41 U/L 16-61 [facility] Work Phone: CO2 [Moles/Vol] 24.0 mmol/L 21.0-32.0 [facility] Work Phone: Globulin (S) [Mass/Vol] 5.5 g/dL 2.2-4.2 [facility] Work Phone: Lipase [Catalytic activity/Vol] 194 U/L 73-393 [facility] Work Phone: Urea nitrogen/Creatinine [Mass ratio] 17.2 mg/mg 10-20 [facility] Work Phone: Laboratory - Coagulationon 0 09-26-2021 PT Coag (PPP) [Time] 18.6 s 11.7-14.9 [facility] Work Phone: Laboratory - Drug toxicology on 09-26-2021 Amphetamines Ql (U) Negative [facility] Work Phone: Benzodiazepines Ql (U) Negative [facility] Work Phone: Cannabinoids Screen Ql (U) Negative [facility] Work Phone: Cocaine Ql (U) Negative [facility] Work Phone: Opiates Ql (U) Negative [facility] Work Phone: Laboratory - Hematology and Cell countson 09-26-2021 Erythrocyte distribution width (RBC) [Entitic vol] 52.6 fL 35.1-43.9 [facility] Work Phone: Erythrocyte distribution width (RBC) [Ratio] 13.2 % 11.6-14.6 [facility] Work Phone: Immature granulocytes/100 WBC (Bld) 0.400 % 0.0-0.9 [facility] Work Phone: Comment on above: IG% - Immature Granu locytes (promyelocytes, myelocytes and metamyelocytes) > 1% indicates that a LEFT SHIFT is Present. MCH (RBC) [Entitic mass] 38.7 pg 27.0-32.0 [facility] Work Phone: Nucleated RBC/100 WBC (Bld) [Ratio] 0 % 0-5 [facility] Work Phone: MCHC Auto (RBC) [Mass/Vol]on 09-26-2021 MCHC (RBC) [Mass/Vol] 36.4 g/dL 32-36 [facility] Work Phone: Mucus LM Ql (Urine sed)on Mucus Ql (Urine sed) 0 SEEN /hpf [facility] Work Phone: Nitrite Test strip Ql (U)on 09-26-2021 Nitrite Ql (U) Negative Negative [facility] Work Phone: No Panel Informationon 09-26 MDMA (Ecstasy) Screen Negative [facility] Work Phone: Urine Barbiturates Screen Negative [facility] Work Phone: Urine Drug Screen Comment [facility] Work Phone: Comment on above: CONFIRMATORY TESTING FOR ALL POSITIVE URINE DRUG SCREENRESULTS WILL ONLY BE SENT OUT UPON PHYSICIAN ORDER. VISTA Urine Drug Screen methods provide only preliminaryanalytical test results. A more specific alternate chemicalmethod must be used in order to obtain a confirmedanalytical result. Gas chromatography/mass spectrometery(GC/MS) is the preferred confirmatory method. Clinicalconsideration and professional judgement should be appliedto any drug of abuse test result, particularly whenpreliminary positive results are used. URINE TCA TESTING MUST BE ORDERED SEPARATELY. USE TESTMNEMONIC: [facility] Urine Methadone Screen Negative [facility] Work Phone: Ethyl Alcohol Level < 3.0 mg/dL [facility] Work Phone: Comment on above: The serum:whole bloo d ethanol ratio is approximately 1.14and varies slightly with hematocrit. Medical Alcohol reference interval and critical value innon-tolerant individuals; 50 - 100 Impairment 100 Intoxication 100 - 250 Severe Poisoning 250 - 400 Deep/possible fatal coma Estimated Creatinine Clearance Calc 78.72 ml/min [facility] Work Phone: Estimated GFR (MDRD) Amer 87 mL/min >60 [facility] Work Phone: Comment on above: GFR Calc Estimated GFR (MDRD) Non-Af Amer 72 mL/min >60 [facility] Work Phone: Comment on above: Non- GFR Calc Platelets bldon 09-26-2021 Platelets (Bld) [#/Vol] 127 10*3/uL 150-450 [facility] Work Phone: Protein Test strip Ql (U)on 09-26-2021 Protein Ql (U) Negative Negative [facility] Work Phone: Serum or plasma albumin leslye urement (mass/volume)on 09-26-2021 Albumin [Mass/Vol] 3.0 g/dL 3.2-5.0 [facility] Work Phone: Serum or plasma calcium leslye urement (mass/volume)on 09-26-2021 Calcium [Mass/Vol] 9.5 mg/dL 8.5-10.1 [facility] Work Phone: Serum or plasma creatinine m easurement (mass/volume)on 09-26-2021 Creatinine [Mass/Vol] 1.16 mg/dL 0.70-1.30 [facility] Work Phone: Comment on above: The validity of the calculated GFR & GFRAA in patients over 70 years has not been determined. Clinical correlation is essential. Serum or plasma urea nitroge n measurement (mass/volume)on 09-26-2021 Urea nitrogen [Mass/Vol] 20 mg/dL 7-18 [facility] Work Phone: Squamous epithelial cells de tection in urine sediment by light microscopyon 09-26-2021 Epithelial cells.squamous LM Ql (Urine sed) 0 SEEN /hpf [facility] Work Phone: Thin prep Papanicolaou smear with manual screeningon 09-26-2021 Thin prep Papanicolaou smear with manual screening 66 ug/dL [facility] Work Phone: Comment on above: Detection Limit = 5P erformed at: - [facility] [id number] Director: Ermelinda Birmingham MD, Phone: [phone] Thin prep Papanicolaou smear with manual screening 63 U/L 15-37 [facility] Work Phone: Thin prep Papanicolaou smear with manual screening 8 5-15 [facility] Work Phone: Urine blood detectionon 09-14 RBC Ql (U) 10 /ul Negative [facility] Work Phone: RBC Ql (U) 0 SEEN /hpf [facility] Work Phone: Urine clarityon 09-26-2021 Clarity (U) Clear Clear [facility] Work Phone: Urine color determinationon 09-26-2021 Color (U) Yellow Yellow [facility] Work Phone: Urine glucose detectionon Glucose Ql (U) Normal mg/dl Normal [facility] Work Phone: Urine leukocyte esterase det ection by dipstickon 09-26-2021 Leukocyte esterase Test strip Ql (U) 25 /ul Negative [facility] Work Phone: Urine pHon 09-26-2021 pH (U) 6.5 [pH] [facility] Work Phone: Urine phencyclidine (PCP) de tectionon 09-26-2021 Phencyclidine Ql (U) Negative [facility] Work Phone: Urine sediment bacteria coun t by microscopy (number/high power field)on 09-26-2021 Bacteria LM.HPF (Urine sed) [#/Area] 0 /[HPF] None Seen [facility] Work Phone: Urine specific gravity measu rementon 09-26-2021 Specific gravity (U) [Rel density] 1.015 [facility] Work Phone: Urobilinogen Auto test strip Ql (U)on 09-26-2021 Urobilinogen Ql (U) 8 mg/dl Normal [facility] Work Phone: Absolute lymphocyte counton 09-14-2021 Lymphocytes Auto (Unsp spec) [#/Vol] 1.20 10*3/uL 0.83-4.51 [facility] Work Phone: Atypical perinuclear antineu trophil cytoplasmic antibodies measurementon 09-14-2021 Neutrophil cytoplasmic Ab.perinuclear.atypic al IF (S) [Titer] <1:20 titer Neg:<1:20 [facility] Work Phone: Comment on above: The atypical pANCA p attern has been observed in asignificant percentage of patients with ulcerative colitis,primary sclerosing cholangitis and autoimmune hepatitis. Basophil percentageon 2021 Ammonia (P) [Moles/Vol] 117.0 umol/L 11-32 [facility] Work Phone: Basophil percentage < 0.2 AI [facility] Work Phone: Basophils/100 WBC (Bld) 0.8 % 0-1 [facility] Work Phone: Bilirubin [Mass/Vol] 4.80 mg/dL 0.20-1.00 [facility] Work Phone: Comment on above: For patients on eltr ombopag therapy, use of Dimension [place] TBIL is not recommended. Chloride [Moles/Vol] 97 mmol/L 98-107 [facility] Work Phone: Eosinophils/100 WBC (Bld) 4.7 % 0-5 [facility] Work Phone: Glucose [Mass/Vol] 204 mg/dL 74-106 [facility] Work Phone: Comment on above: Glucose result great er than or equal to 200 mg/dLsuggests DIABETES MELLITUS per A.D.A. criteria. Neutrophils (Bld) [#/Vol] 5.2 10*3/uL 2.0-7.7 [facility] Work Phone: Neutrophils/100 WBC (Bld) 69.3 % 47-70 [facility] Work Phone: Potassium [Moles/Vol] 4.0 mmol/L 3.5-5.1 [facility] Work Phone: Protein [Mass/Vol] 7.8 g/dL 6.4-8.2 [facility] Work Phone: Sodium [Moles/Vol] 132 mmol/L 136-145 [facility] Work Phone: WBC (Bld) [#/Vol] 7.5 10*3/uL 4.4-11.0 [facility] Work Phone: Blood erythrocytes count (nu mber/volume)on 09-14-2021 RBC (Bld) [#/Vol] 3.16 10*6/uL 4.6-6.2 [facility] Work Phone: Blood hemoglobin measurement (mass/volume)on 09-14-2021 Hemoglobin (Bld) [Mass/Vol] 13.0 g/dL 13.0-16.5 [facility] Work Phone: Blood lymphocytes/100 leukoc yteson 09-14-2021 Lymphocytes/100 WBC (Bld) 16.0 % 19-41 [facility] Work Phone: Blood monocytes/100 leukocyt eson 09-14-2021 Monocytes/100 WBC (Bld) 8.9 % 0-10 [facility] Work Phone: Blood platelet mean volumeon 09-14-2021 Platelet mean volume (Bld) [Entitic vol] 9.3 fL 6.2-12.0 [facility] Work Phone: Determination of erythrocyte mean corpuscular volume (MCV)on 09-14-2021 MCV (RBC) [Entitic vol] 102.8 fL 80-94 [facility] Work Phone: Direct bilirubinon 2 Bilirubin.direct [Mass/Vol] 1.89 mg/dL 0.00-0.30 [facility] Work Phone: Erythrocyte sedimentation ra syed 09-14-2021 ESR (Bld) [Velocity] 37 mm/h 0-20 [facility] Work Phone: Hematocrit Auto (Bld) [Volum e fraction]on 09-14-2021 Hematocrit (Bld) [Volume fraction] 32.5 % 40-54 [facility] Work Phone: INR in Blood by Coagulation assayon 09-14-2021 INR Coag (Bld) [Relative time] 1.8 {INR} [facility] Work Phone: Iron measurement (mass/mass) on 09-14-2021 Iron (Unsp spec) [Mass/Mass] 212 ug/dL 65-175 [facility] Work Phone: Laboratory - Chemistry and C hemistry - challengeon 09-14-2021 ALP [Catalytic activity/Vol] 318 U/L 45-117 [facility] Work Phone: ALT [Catalytic activity/Vol] 36 U/L 16-61 [facility] Work Phone: [phone] CO2 [Moles/Vol] 28.0 mmol/L 21.0-32.0 [facility] Work Phone: Globulin (S) [Mass/Vol] 5.1 g/dL 2.2-4.2 [facility] Work Phone: Urea nitrogen/Creatinine [Mass ratio] 14.0 mg/mg 10-20 [facility] Work Phone: Laboratory - Coagulationon 0 09-14-2021 aPTT Coag (Bld) [Time] 45.6 s 24.1-36.2 [facility] Work Phone: PT Coag (PPP) [Time] 19.9 s 11.7-14.9 [facility] Work Phone: Laboratory - Hematology and Cell countson 09-14-2021 Erythrocyte distribution width (RBC) [Entitic vol] 47.4 fL 35.1-43.9 [facility] Work Phone: Erythrocyte distribution width (RBC) [Ratio] 12.6 % 11.6-14.6 [facility] Work Phone: Immature granulocytes/100 WBC (Bld) 0.300 % 0.0-0.9 [facility] Work Phone: Comment on above: IG% - Immature Granu locytes (promyelocytes, myelocytes and metamyelocytes) > 1% indicates that a LEFT SHIFT is Present. MCH (RBC) [Entitic mass] 41.1 pg 27.0-32.0 [facility] Work Phone: Nucleated RBC/100 WBC (Bld) [Ratio] 0 % 0-5 [facility] Work Phone: MCHC Auto (RBC) [Mass/Vol]on 09-14-2021 MCHC (RBC) [Mass/Vol] 40.0 g/dL 32-36 [facility] Work Phone: No Panel Informationon 09-14 Centromere B Antibody <0.2 AI [facility] Work Phone: Ceruloplasmin 13.6 mg/dL [facility] Work Phone: Comment on above: Performed at: [facility] [address] [id number] Director: Ciro Putnam PhD, Phone: [phone] Estimated GFR (MDRD) Amer 112 mL/min >60 [facility] Work Phone: Comment on above: GFR Calc Estimated GFR (MDRD) Non-Af Amer 93 mL/min >60 [facility] Work Phone: Comment on above: Non- GFR Calc Hepatitis C Antibody Non-Reactive Nonreactive [facility] Work Phone: Comment on above: Non Reactive: < 0.8 Equivocal: >/= 0.8 to < 1.0 Reactive: >/= 1.0The CDC recommends that a reactive/equivocal HCV antibody result be followed up by the HCV Nucleic Acid Amplificationtest ([id number]) LABEL PRINTING MACHINIST Antibody 1.6 [facility] Work Phone: Total Iron Binding Capacity 235 ug/dL 250-450 [facility] Work Phone: Platelets bldon 09-14-2021 Platelets (Bld) [#/Vol] 147 10*3/uL 150-450 [facility] Work Phone: Serum DNA double strand anti body assay (units/volume)on 09-14-2021 DNA double strand Ab Qn (S) [IU]/mL [facility] Work Phone: Comment on above: Negative <5 Equivoca l 5 - 9 Positive >9 Serum Nadira-1 antibody assay (u nits/volume)on 09-14-2021 Nadira-1 extractable nuclear Ab Qn (S) <0.2 [facility] Work Phone: Serum Scl-70 extractable nuc lear antibody assay (units/volume)on 09-14-2021 SCL-70 extractable nuclear Ab Qn (S) <0.2 [facility] Work Phone: Serum Doyle extractable nucl ear antibody detectionon 09-14-2021 Doyle extractable nuclear Ab Ql (S) <0.2 [facility] Work Phone: Serum classic neutrophil cyt oplasmic antibody assay (units/volume)on 09-14-2021 Neutrophil cytoplasmic Ab.classic Qn (S) 1:80 titer Neg:<1:20 [facility] Work Phone: Serum mitochondria antibody detectionon 09-14-2021 Mitochondria Ab Ql (S) <20.0 Units [facility] Work Phone: Comment on above: Negative 0.0 - 20.0 Equivocal 20.1 - 24.9 Positive >24.9Mitochondrial (M2) Antibodies are found in 90-96% ofpatients with primary biliary cirrhosis.Performed at: [employer] [id number] Director: Ciro Putnam PhD, Phone: [phone] Serum or plasma C reactive p rotein measurement (mass/volume)on 09-14-2021 CRP [Mass/Vol] 4.16 mg/L 0.0-3.0 [facility] Work Phone: Comment on above: C-Reactive Protein ( CRP) provides useful information for thediagnosis, therapy and monitoring of inflammatory processesand associated diseases. For the evaluation of Relative Riskfor Cardiovascular Disease, a High Sensitivity CRP (HSCRP)should be ordered. Serum or plasma actin IgG an tibody assay (units/volume)on 09-14-2021 Actin IgG Qn 16 Units [facility] Work Phone: Comment on above: Negative 0 - 19 Weak positive 20 - 30 Moderate to strong positive >30 Actin Antibodies are found in 52-85% of patients with autoimmune hepatitis or chronic active hepatitis and in 22% of patients with primary biliary cirrhosis. Serum or plasma albumin leslye urement (mass/volume)on 09-14-2021 Albumin [Mass/Vol] 2.7 g/dL 3.2-5.0 [facility] Work Phone: Serum or plasma albumin/glob ulin mass ratioon 09-14-2021 Albumin/Globulin [Mass ratio] 0.5 {ratio} 0.9-2.4 [facility] Work Phone: Serum or plasma angiotensin converting enzyme measurement (enzymatic activity/volume)on 09-14-2021 Angiotensin converting enzyme [Catalytic activity/Vol] 186 U/L [facility] Work Phone: Serum or plasma calcium leslye urement (mass/volume)on 09-14-2021 Calcium [Mass/Vol] 8.6 mg/dL 8.5-10.1 [facility] Work Phone: Serum or plasma creatinine m easurement (mass/volume)on 09-14-2021 Creatinine [Mass/Vol] 0.93 mg/dL 0.70-1.30 [facility] Work Phone: Comment on above: The validity of the calculated GFR & GFRAA in patients over 70 years has not been determined. Clinical correlation is essential. Serum or plasma ferritin michael surement (mass/volume)on 09-14-2021 Ferritin [Mass/Vol] 382 ng/mL 26-388 [facility] Work Phone: Serum or plasma iron saturat ion measurement (mass fraction)on 09-14-2021 Iron saturation [Mass fraction] 90.2 % 15.0-55.0 [facility] Work Phone: Serum or plasma urea nitroge n measurement (mass/volume)on 09-14-2021 Urea nitrogen [Mass/Vol] 13 mg/dL 7-18 [facility] Work Phone: Serum perinuclear neutrophil cytoplasmic antibody titer by immunofluorescenceon 09-14-2021 Neutrophil cytoplasmic Ab.perinuclear IF (S) [Titer] <1:20 titer Neg:<1:20 [facility] Work Phone: Comment on above: The presence of posi tive fluorescence exhibiting P-ANCA orC- ANCA patterns alone is not specific for the diagnosis ofWegener's Granulomatosis (WG) or microscopic polyangiitis.Decisions about treatment should not be based solely onANCA IFA results. The [employer] ANCA Group Consensusrecommends follow up testing of positive sera with both NE-3 and MPO-ANCA enzyme immunoassays. As many as 5% serumsamples are positive only by EIA. Ref. AM J Clin [id number];[id number]. Thin prep Papanicolaou smear with manual screeningon 09-14-2021 Thin prep Papanicolaou smear with manual screening 49 U/L 15-37 [facility] Work Phone: Thin prep Papanicolaou smear with manual screening 7 5-15 [facility] Work Phone: Thin prep Papanicolaou smear with manual screening 222 U/L 87-241 [facility] Work Phone: Whole blood hemoglobin A1c/t otal hemoglobin ratio (mass fraction)on 09-14-2021 HbA1c (Bld) [Mass fraction] 7.3 % 3.8-5.6 [facility] Work Phone: Comment on above: Normal < 5.7 % Predi abetic 5.7 - 6.4 % Diabetic >or= 6.5 % Please note range changes. Influenza virus A and B and SARS-CoV-2 (COVID-19) Ag panel - Upper respiratory specim SARS-CoV-2 (COVID-19) RNA FOX+probe Ql (Resp) [facility] Work Phone: Laboratory - Microbiology an d Antimicrobial susceptibility Bacteria identified Cx Nom (Bld) No growth in 5 days. [facility] Work Phone: Respiratory pathogens DNA an d RNA 12b panel FOX+probe (Unsp spec) Respiratory Panel (PCR) Influenza A (Subtype H1) [facility] Work Phone: Vital Signs Date Time Vital Sign Value Performing Clinician Facility 11-27-2024 19:30-0400 Diastolic Blood Pressure Non-Invasive 62 mm[Hg] DR ISIDRO UPTON MD [facility] 11-27-2024 19:30-0400 Heart rate 75 /min DR ISIDRO UPTON MD [facility] 11-27-2024 19:30-0400 Respiratory rate 16 /min DR ISIDRO UPTON MD [facility] 11-27-2024 19:30-0400 Systolic Blood Pressure Non-Invasive 128 mm[Hg] DR ISIDRO UPTON MD [facility] 11-27-2024 18:05-0400 Body temperature 98.6 [degF] DR ISIDRO UPTON MD [facility] 11-27-2024 18:05-0400 Body weight [address] ISIDRO UPTON MD [facility] 11-27-2024 18:05-0400 Diastolic Blood Pressure Non-Invasive 70 mm[Hg] DR ISIDRO UPTON MD [facility] 11-27-2024 18:05-0400 Heart rate 74 /min DR ISIDRO UPTON MD [facility] 11-27-2024 18:05-0400 Respiratory rate 16 /min DR ISIDRO UPTON MD [facility] 11-27-2024 18:05-0400 Systolic Blood Pressure Non-Invasive 127 mm[Hg] DR ISIDRO UPTON MD [facility] 07-14-2024 04:23-0500 Diastolic Blood Pressure Non-Invasive 71 mm[Hg] DR WAQAS GARSIA MD [facility] 07-14-2024 04:23-0500 Heart rate 89 /min DR WAQAS GARSIA MD [facility] 07-14-2024 04:23-0500 Respiratory rate 18 /min DR WAQAS GARSIA MD [facility] 07-14-2024 04:23-0500 Systolic Blood Pressure Non-Invasive 122 mm[Hg] DR WAQAS GARSIA MD [facility] 07-14-2024 01:45-0500 Body temperature 98.6 [degF] DR WAQAS GARSIA MD [facility] 07-14-2024 01:45-0500 Diastolic Blood Pressure Non-Invasive 69 mm[Hg] DR WAQAS GARSIA MD [facility] 07-14-2024 01:45-0500 Heart rate 93 /min DR WAQAS GARSIA MD [facility] 07-14-2024 01:45-0500 Respiratory rate 18 /min DR WAQAS GARSIA MD [facility] 07-14-2024 01:45-0500 Systolic Blood Pressure Non-Invasive 128 mm[Hg] DR WAQAS GARSIA MD [facility] 07-13-2024 01:15-0500 Blood Pressure Location WAQAS HOLGUIN MD [facility] 07-13-2024 01:15-0500 Blood Pressure Method WAQAS HOLGUIN MD [facility] 07-13-2024 01:15-0500 Body height 175.3 cm WAQAS HOLGUIN MD [facility] 07-13-2024 01:15-0500 Body temperature 98.06 [degF] WAQAS HOLGUIN MD [facility] 07-13-2024 01:15-0500 Body weight 93.2 kg WAQAS HOLGUIN MD [facility] 07-13-2024 01:15-0500 Diastolic Blood Pressure Non-Invasive 66 mm[Hg] WAQAS HOLGUIN MD [facility] 07-13-2024 01:15-0500 Heart rate 76 /min WAQAS HOLGUIN MD [facility] 07-13-2024 01:15-0500 Respiratory rate 18 /min WAQAS HOLGUIN MD [facility] 07-13-2024 01:15-0500 Systolic Blood Pressure Non-Invasive 120 mm[Hg] WAQAS HOLGUIN MD [facility] 01-30-2024 14:35-0400 Body height 175.3 cm Barrington Traore MD Work Phone: [facility] [place] 01-30-2024 14:35-0400 Body mass index (BMI) [Ratio] 26.76 kg/m2 Barrington Traore MD Work Phone: [facility] [place] 01-30-2024 14:35-0400 Body temperature 98.1 [degF] Barrington Traore MD Work Phone: [facility] [place] 01-30-2024 14:35-0400 Body weight 82.2 kg Barrington Traore MD Work Phone: [facility] [place] 01-30-2024 14:35-0400 Diastolic blood pressure 87 mm[Hg] Barrington Traore MD Work Phone: [facility] [place] Comment on above: Pt denies h/a, nausea, dizziness. No dis tress noted. notified. 01-30-2024 14:35-0400 Heart rate 73 /min Barrington Traore MD Work Phone: [facility] [place] 01-30-2024 14:35-0400 SaO2% (BldA) [Mass fraction] 98 % Barrington Traore MD Work Phone: [facility] [place] 01-30-2024 14:35-0400 Systolic blood pressure 134 mm[Hg] Barrington Traore MD Work Phone: [facility] [place] Comment on above: Pt denies h/a, nausea, dizziness. No dis tress noted. notified. 01-01-2024 11:13-0400 Body mass index (BMI) [Ratio] 25.37 kg/m2 Piter Gaines Jr., MD Work Phone: [facility] [place] 01-01-2024 11:13-0400 Body weight 77.93 kg Piter Gainse Jr., MD Work Phone: [facility] [place] 01-01-2024 11:13-0400 Diastolic blood pressure 68 mm[Hg] Piter Gaines Jr., MD Work Phone: [facility] [place] 01-01-2024 11:13-0400 Heart rate 94 /min Piter Gaines Jr., MD Work Phone: [facility] [place] 01-01-2024 11:13-0400 Respiratory rate 16 /min Piter Gaines Jr., MD Work Phone: [facility] [place] 01-01-2024 11:13-0400 SaO2% (BldA) [Mass fraction] 96 % Piter Gaines Jr., MD Work Phone: [facility] [place] 01-01-2024 11:13-0400 Systolic blood pressure 126 mm[Hg] Piter Gaines Jr., MD Work Phone: [facility] [place] 09-20-2023 11:40-0500 Diastolic blood pressure 57 mm[Hg] Barrington Traore MD Work Phone: [facility] [place] 09-20-2023 11:40-0500 Heart rate 74 /min Barrington rTaore MD Work Phone: [facility] [place] 09-20-2023 11:40-0500 Respiratory rate 16 /min Barrington Traore MD Work Phone: [facility] [place] 09-20-2023 11:40-0500 SaO2% (BldA) [Mass fraction] 96 % Barrington Traore MD Work Phone: [facility] [place] 09-20-2023 11:40-0500 Systolic blood pressure 118 mm[Hg] Barrington Traore MD Work Phone: [facility] [place] 09-20-2023 10:34-0500 Body height 175.3 cm Barrington Traore MD Work Phone: [facility] [place] 09-20-2023 10:34-0500 Body temperature 97.3 [degF] Barringtno Traore MD Work Phone: [facility] [place] 09-20-2023 10:34-0500 Body weight 77.56 kg Barrington Traore MD Work Phone: [facility] [place] 08-29-2023 12:57-0500 Body height 175.3 cm Barrington Traore MD Work Phone: [facility] [place] 08-29-2023 12:57-0500 Body temperature 98.91 [degF] Barrington Traore MD Work Phone: [facility] [place] 08-29-2023 12:57-0500 Body weight 77.6 kg Barrington Traore MD Work Phone: [facility] [place] 08-29-2023 12:57-0500 Diastolic blood pressure 83 mm[Hg] Barrington Traore MD Work Phone: [facility] [place] 08-29-2023 12:57-0500 Heart rate 84 /min Barrington Traore MD Work Phone: [facility] [place] 08-29-2023 12:57-0500 SaO2% (BldA) [Mass fraction] 98 % Barrington Traore MD Work Phone: [facility] [place] 08-29-2023 12:57-0500 Systolic blood pressure 138 mm[Hg] Barrington Traore MD Work Phone: [facility] [place] 08-08-2023 09:00-0500 Body temperature 98.2 [degF] Cipriano Cedeño DO Work Phone: [facility] 08-08-2023 09:00-0500 Diastolic blood pressure 70 mm[Hg] Cipriano Cedeño DO Work Phone: [facility] 08-08-2023 09:00-0500 Heart rate 83 /min Cipriano Cedeño DO Work Phone: [facility] 08-08-2023 09:00-0500 Respiratory rate 18 /min Cipriano Cedeño DO Work Phone: [facility] [place] 08-08-2023 09:00-0500 SaO2% (BldA) [Mass fraction] 100 % Cipriano Cedeño DO Work Phone: [facility] [place] 08-08-2023 09:00-0500 Systolic blood pressure 124 mm[Hg] Cipriano Cedeño DO Work Phone: [facility] [place] 08-07-2023 05:45-0500 Body mass index (BMI) [Ratio] 26.2 kg/m2 Cipriano Cedeño DO Work Phone: [facility] [place] 08-07-2023 05:45-0500 Body weight 80.51 kg Cipriano Cedeño DO Work Phone: [facility] [place] 08-03-2023 06:30-0500 Body height 175.3 cm Cipriano Cedeño DO Work Phone: [facility] [place] 06-21-2022 18:04-0500 Body temperature 98.7 [degF] Dr. Greg Goddard Work Phone: [facility] Work Phone: 06-21-2022 18:04-0500 Diastolic blood pressure 63 mm[Hg] Dr. Greg Goddard Work Phone: [facility] Work Phone: 06-21-2022 18:04-0500 Heart rate 82 /min Dr. Greg Goddard Work Phone: [facility] Work Phone: 06-21-2022 18:04-0500 Respiratory rate 18 /min Dr. Greg Goddard Work Phone: [facility] Work Phone: 06-21-2022 18:04-0500 SaO2% (BldA) [Mass fraction] 94 % Dr. Greg Goddard Work Phone: [facility] Work Phone: 06-21-2022 18:04-0500 Systolic blood pressure 102 mm[Hg] Dr. Greg Goddard Work Phone: [facility] Work Phone: 06-21-2022 10:33-0500 Body height 175.[address] Greg Goddard Work Phone: [facility] Work Phone: 06-21-2022 10:33-0500 Body weight 69.[address] Greg Goddard Work Phone: [facility] Work Phone: 06-17-2022 22:59-0500 Body mass index (BMI) [Ratio] 22.7 kg/m2 Dr. Greg Goddard Work Phone: [facility] Work Phone: 06-17-2022 01:40-0500 Diastolic blood pressure 74 mm[Hg] Dr. Greg Goddard Work Phone: [facility] Work Phone: 06-17-2022 01:40-0500 Heart rate 88 /min Dr. Greg Goddard Work Phone: [facility] Work Phone: 06-17-2022 01:40-0500 Respiratory rate 18 /min Dr. Greg Goddard Work Phone: [facility] Work Phone: 06-17-2022 01:40-0500 SaO2% (BldA) [Mass fraction] 99 % Dr. Greg Goddard Work Phone: [facility] Work Phone: 06-17-2022 01:40-0500 Systolic blood pressure 134 mm[Hg] Dr. Greg Goddard Work Phone: [facility] Work Phone: 06-16-2022 21:41-0500 Body height 175.[address] Greg Goddard Work Phone: [facility] Work Phone: 06-16-2022 21:41-0500 Body mass index (BMI) [Ratio] 23.9 kg/m2 Dr. Greg Goddard Work Phone: [facility] Work Phone: 06-16-2022 21:41-0500 Body temperature 97.6 [degF] Dr. Greg Goddard Work Phone: [facility] Work Phone: 06-16-2022 21:41-0500 Body weight 73.[address] Greg Goddard Work Phone: [facility] Work Phone: 06-16-2022 03:08-0500 Body height 175.[address] Greg Goddard Work Phone: [facility] Work Phone: 06-16-2022 03:08-0500 Body mass index (BMI) [Ratio] 24 kg/m2 Dr. Greg Goddard Work Phone: [facility] Work Phone: 06-16-2022 03:08-0500 Body temperature 97.7 [degF] Dr. Greg Goddard Work Phone: [facility] Work Phone: 06-16-2022 03:08-0500 Body weight [address] Greg Goddard Work Phone: [facility] Work Phone: 06-16-2022 03:08-0500 Diastolic blood pressure 77 mm[Hg] Dr. Greg Goddard Work Phone: [facility] Work Phone: 06-16-2022 03:08-0500 Heart rate 92 /min Dr. Greg Goddard Work Phone: [facility] Work Phone: 06-16-2022 03:08-0500 Respiratory rate 15 /min Dr. Greg Goddard Work Phone: [facility] Work Phone: 06-16-2022 03:08-0500 SaO2% (BldA) [Mass fraction] 98 % Dr. Greg Goddard Work Phone: [facility] Work Phone: 06-16-2022 03:08-0500 Systolic blood pressure 136 mm[Hg] Dr. Greg Goddard Work Phone: [facility] Work Phone: 05-14-2022 19:04-0400 Diastolic blood pressure 77 mm[Hg] Dr. Greg Goddard Work Phone: [facility] Work Phone: 05-14-2022 19:04-0400 Heart rate 74 /min Dr. Greg Goddard Work Phone: [facility] Work Phone: 05-14-2022 19:04-0400 Respiratory rate 16 /min Dr. Greg Goddard Work Phone: [facility] Work Phone: 05-14-2022 19:04-0400 SaO2% (BldA) [Mass fraction] 98 % Dr. Greg Goddard Work Phone: [facility] Work Phone: 05-14-2022 19:04-0400 Systolic blood pressure 129 mm[Hg] Dr. Greg Goddard Work Phone: [facility] Work Phone: 05-14-2022 11:40-0400 Body height 175.[address] Greg Goddard Work Phone: [facility] Work Phone: 05-14-2022 11:40-0400 Body mass index (BMI) [Ratio] 23.6 kg/m2 Dr. Greg Goddard Work Phone: [facility] Work Phone: 05-14-2022 11:40-0400 Body temperature 97.5 [degF] Dr. Greg Goddard Work Phone: [facility] Work Phone: 05-14-2022 11:40-0400 Body weight 72.[address] Greg Goddard Work Phone: [facility] Work Phone: 03-11-2022 11:02-0400 Body height 175.26 cm No Primary Care Physician [facility] Work Phone: 03-11-2022 11:02-0400 Body mass index (BMI) [Ratio] 23.4 kg/m2 No Primary Care Physician [facility] Work Phone: 03-11-2022 11:02-0400 Body weight 72.12 kg No Primary Care Physician [facility] Work Phone: 03-11-2022 11:02-0400 Diastolic blood pressure 67 mm[Hg] No Primary Care Physician [facility] Work Phone: 03-11-2022 11:02-0400 Heart rate 71 /min No Primary Care Physician [facility] Work Phone: 03-11-2022 11:02-0400 SaO2% (BldA) [Mass fraction] 97 % No Primary Care Physician [facility] Work Phone: 03-11-2022 11:02-0400 Systolic blood pressure 112 mm[Hg] No Primary Care Physician [facility] Work Phone: 03-03-2022 09:43-0400 Body temperature 97.6 [degF] Dr. Nate Martinez Work Phone: [facility] Work Phone: 03-03-2022 09:43-0400 Diastolic blood pressure 75 mm[Hg] Dr. Sullivan Michelle Work Phone: [facility] Work Phone: 03-03-2022 09:43-0400 Heart rate 64 /min Dr. Nate Martinez Work Phone: [facility] Work Phone: 03-03-2022 09:43-0400 Respiratory rate 16 /min Dr. Nate Martinez Work Phone: [facility] Work Phone: 03-03-2022 09:43-0400 SaO2% (BldA) [Mass fraction] 100 % Dr. Nate Martinez Work Phone: [facility] Work Phone: 03-03-2022 09:43-0400 Systolic blood pressure 115 mm[Hg] Dr. Nate Martinez Work Phone: [facility] Work Phone: 03-03-2022 08:06-0400 Body height 175.[address] Nate Martinez Work Phone: [facility] Work Phone: 03-03-2022 08:06-0400 Body mass index (BMI) [Ratio] 23.4 kg/m2 Dr. Nate Martinez Work Phone: [facility] Work Phone: 03-03-2022 08:06-0400 Body weight 72.[address] Nate Martinez Work Phone: [facility] Work Phone: 03-02-2022 11:55-0400 Body temperature 97.9 [degF] Dr. Nate Martinez Work Phone: [facility] Work Phone: 03-02-2022 11:55-0400 Diastolic blood pressure 73 mm[Hg] Dr. Nate Martinez Work Phone: [facility] Work Phone: 03-02-2022 11:55-0400 Heart rate 61 /min Dr. Nate Martinez Work Phone: [facility] Work Phone: 03-02-2022 11:55-0400 Respiratory rate 16 /min Dr. Nate Martinez Work Phone: [facility] Work Phone: 03-02-2022 11:55-0400 SaO2% (BldA) [Mass fraction] 99 % Dr. Nate Martinez Work Phone: [facility] Work Phone: 03-02-2022 11:55-0400 Systolic blood pressure 119 mm[Hg] Dr. Nate Martinez Work Phone: [facility] Work Phone: 03-02-2022 10:52-0400 Body mass index (BMI) [Ratio] 23.8 kg/m2 Dr. Nate Martinez Work Phone: [facility] Work Phone: 03-02-2022 10:52-0400 Body weight [address] Nate Martinez Work Phone: [facility] Work Phone: 12-08-2021 08:29-0400 Body mass index (BMI) [Ratio] 25.1 kg/m2 Dr. Nate Martinez Work Phone: [facility] Work Phone: 12-08-2021 08:29-0400 Body temperature 96.5 [degF] Dr. Nate Martinez Work Phone: [facility] Work Phone: 12-08-2021 08:29-0400 Body weight 77.[address] Nate Martinez Work Phone: [facility] Work Phone: 12-08-2021 08:29-0400 Diastolic blood pressure 70 mm[Hg] Dr. Nate Martinez Work Phone: [facility] Work Phone: 12-08-2021 08:29-0400 Heart rate 98 /min Dr. Nate Martinez Work Phone: [facility] Work Phone: 12-08-2021 08:29-0400 Respiratory rate 16 /min Dr. Nate Martinez Work Phone: [facility] Work Phone: 12-08-2021 08:29-0400 SaO2% (BldA) [Mass fraction] 97 % Dr. Nate Martinez Work Phone: [facility] Work Phone: 12-08-2021 08:29-0400 Systolic blood pressure 114 mm[Hg] Dr. Nate Martinez Work Phone: [facility] Work Phone: 12-08-2021 08:29-0400 Body height 175.26 cm COMMODITY SPECIALIST-C Debra Deisi COMMODITY SPECIALIST Work Phone: [facility] Work Phone: 12-08-2021 08:29-0400 Body mass index (BMI) [Ratio] 25.1 kg/m2 COMMODITY SPECIALIST-C Debra Deisi COMMODITY SPECIALIST Work Phone: [facility] Work Phone: 12-08-2021 08:29-0400 Body temperature 96.5 [degF] COMMODITY SPECIALIST-C Debra Deisi COMMODITY SPECIALIST Work Phone: [facility] Work Phone: 12-08-2021 08:29-0400 Body weight 77.16 kg COMMODITY SPECIALIST-C Debra Deisi COMMODITY SPECIALIST Work Phone: [facility] Work Phone: 12-08-2021 08:29-0400 Diastolic blood pressure 70 mm[Hg] COMMODITY SPECIALIST-C Debra Deisi COMMODITY SPECIALIST Work Phone: [facility] Work Phone: 12-08-2021 08:29-0400 Heart rate 98 /min COMMODITY SPECIALIST-C Debra Deisi COMMODITY SPECIALIST Work Phone: [facility] Work Phone: 12-08-2021 08:29-0400 Respiratory rate 16 /min COMMODITY SPECIALIST-C Debra Deisi COMMODITY SPECIALIST Work Phone: [facility] Work Phone: 12-08-2021 08:29-0400 SaO2% (BldA) [Mass fraction] 97 % COMMODITY SPECIALIST-C Debra Deisi COMMODITY SPECIALIST Work Phone: [facility] Work Phone: 12-08-2021 08:29-0400 Systolic blood pressure 114 mm[Hg] COMMODITY SPECIALIST-C Debra Deisi COMMODITY SPECIALIST Work Phone: [facility] Work Phone: 12-02-2021 11:30-0400 Body temperature 98.6 [degF] COMMODITY SPECIALIST-C Debra Deisi COMMODITY SPECIALIST Work Phone: [facility] Work Phone: 12-02-2021 11:30-0400 Diastolic blood pressure 68 mm[Hg] COMMODITY SPECIALIST-C Debra Deisi COMMODITY SPECIALIST Work Phone: [facility] Work Phone: 12-02-2021 11:30-0400 Heart rate 71 /min COMMODITY SPECIALIST-C Debra Deisi COMMODITY SPECIALIST Work Phone: [facility] Work Phone: 12-02-2021 11:30-0400 Respiratory rate 18 /min COMMODITY SPECIALIST-C Debra Deisi COMMODITY SPECIALIST Work Phone: [facility] Work Phone: 12-02-2021 11:30-0400 SaO2% (BldA) [Mass fraction] 99 % COMMODITY SPECIALIST-C Debra Deisi COMMODITY SPECIALIST Work Phone: [facility] Work Phone: 12-02-2021 11:30-0400 Systolic blood pressure 118 mm[Hg] COMMODITY SPECIALIST-C Debra Deisi COMMODITY SPECIALIST Work Phone: [facility] Work Phone: 12-02-2021 10:01-0400 Body height 175.26 cm COMMODITY SPECIALIST-C Debra Deisi COMMODITY SPECIALIST Work Phone: [facility] Work Phone: 12-02-2021 10:01-0400 Body mass index (BMI) [Ratio] 25.1 kg/m2 COMMODITY SPECIALIST-C Debra Deisi COMMODITY SPECIALIST Work Phone: [facility] Work Phone: 12-02-2021 10:01-0400 Body weight 77.2 kg COMMODITY SPECIALIST-C Debra Deisi COMMODITY SPECIALIST Work Phone: [facility] Work Phone: 10-14-2021 08:31-0400 Body height 175.26 cm COMMODITY SPECIALIST-C Debra Deisi COMMODITY SPECIALIST Work Phone: [facility] Work Phone: 10-14-2021 08:31-0400 Body mass index (BMI) [Ratio] 24.3 kg/m2 COMMODITY SPECIALIST-C Dbera Deisi COMMODITY SPECIALIST Work Phone: [facility] Work Phone: 10-14-2021 08:31-0400 Body temperature 98.3 [degF] COMMODITY SPECIALIST-C Debra Deisi COMMODITY SPECIALIST Work Phone: [facility] Work Phone: 10-14-2021 08:31-0400 Body weight 74.84 kg COMMODITY SPECIALIST-C Debra Deisi COMMODITY SPECIALIST Work Phone: [facility] Work Phone: 10-14-2021 08:31-0400 Diastolic blood pressure 68 mm[Hg] COMMODITY SPECIALIST-C Debra Deisi COMMODITY SPECIALIST Work Phone: [facility] Work Phone: 10-14-2021 08:31-0400 Heart rate 76 /min COMMODITY SPECIALIST-C Debra Deisi COMMODITY SPECIALIST Work Phone: [facility] Work Phone: 10-14-2021 08:31-0400 Respiratory rate 14 /min COMMODITY SPECIALIST-C Debra Deisi COMMODITY SPECIALIST Work Phone: [facility] Work Phone: 10-14-2021 08:31-0400 SaO2% (BldA) [Mass fraction] 99 % COMMODITY SPECIALIST-C Debra Deisi COMMODITY SPECIALIST Work Phone: [facility] Work Phone: 10-14-2021 08:31-0400 Systolic blood pressure 110 mm[Hg] COMMODITY SPECIALIST-C Debra Deisi COMMODITY SPECIALIST Work Phone: [facility] Work Phone: 10-11-2021 10:35-0400 Body temperature 98 [degF] COMMODITY SPECIALIST-C Debra Deisi COMMODITY SPECIALIST Work Phone: [facility] Work Phone: 10-11-2021 10:35-0400 Diastolic blood pressure 56 mm[Hg] COMMODITY SPECIALIST-C Debra Deisi COMMODITY SPECIALIST Work Phone: [facility] Work Phone: 10-11-2021 10:35-0400 Heart rate 70 /min COMMODITY SPECIALIST-C Debra Deisi COMMODITY SPECIALIST Work Phone: [facility] Work Phone: 10-11-2021 10:35-0400 Respiratory rate 18 /min COMMODITY SPECIALIST-C Debra Deisi COMMODITY SPECIALIST Work Phone: [facility] Work Phone: 10-11-2021 10:35-0400 SaO2% (BldA) [Mass fraction] 98 % COMMODITY SPECIALIST-C Debra Deisi COMMODITY SPECIALIST Work Phone: [facility] Work Phone: 10-11-2021 10:35-0400 Systolic blood pressure 102 mm[Hg] COMMODITY SPECIALIST-C Debra Deisi COMMODITY SPECIALIST Work Phone: [facility] Work Phone: 10-11-2021 08:33-0400 Body height 175.26 cm COMMODITY SPECIALIST-C Debra Deisi COMMODITY SPECIALIST Work Phone: [facility] Work Phone: 10-11-2021 08:33-0400 Body mass index (BMI) [Ratio] 24.3 kg/m2 COMMODITY SPECIALIST-C Debra Deisi COMMODITY SPECIALIST Work Phone: [facility] Work Phone: 10-11-2021 08:33-0400 Body weight 74.84 kg COMMODITY SPECIALIST-C Debra Deisi COMMODITY SPECIALIST Work Phone: [facility] Work Phone: 09-26-2021 16:27-0400 Body temperature 98 [degF] COMMODITY SPECIALIST-C Debra Deisi COMMODITY SPECIALIST Work Phone: [facility] Work Phone: 09-26-2021 16:27-0400 Diastolic blood pressure 88 mm[Hg] COMMODITY SPECIALIST-C Debra Deisi COMMODITY SPECIALIST Work Phone: [facility] Work Phone: 09-26-2021 16:27-0400 Heart rate 84 /min COMMODITY SPECIALIST-C Debra Deisi COMMODITY SPECIALIST Work Phone: [facility] Work Phone: 09-26-2021 16:27-0400 Respiratory rate 16 /min COMMODITY SPECIALIST-C Debra Deisi COMMODITY SPECIALIST Work Phone: [facility] Work Phone: 09-26-2021 16:27-0400 SaO2% (BldA) [Mass fraction] 99 % COMMODITY SPECIALIST-C Debra Deisi COMMODITY SPECIALIST Work Phone: [facility] Work Phone: 09-26-2021 16:27-0400 Systolic blood pressure 139 mm[Hg] COMMODITY SPECIALIST-C Debra Deisi COMMODITY SPECIALIST Work Phone: [facility] Work Phone: 09-26-2021 11:10-0400 Body mass index (BMI) [Ratio] 24.3 kg/m2 COMMODITY SPECIALIST-C Debra Deisi COMMODITY SPECIALIST Work Phone: [facility] Work Phone: 09-26-2021 11:10-0400 Body weight 74.84 kg COMMODITY SPECIALIST-C Debra Deisi COMMODITY SPECIALIST Work Phone: [facility] Work Phone: 09-13-2021 09:22-0500 Body mass index (BMI) [Ratio] 24.2 kg/m2 COMMODITY SPECIALIST-C Debra Deisi COMMODITY SPECIALIST Work Phone: [facility] Work Phone: 09-13-2021 09:22-0500 Body weight 74.38 kg COMMODITY SPECIALIST-C Debra Deisi COMMODITY SPECIALIST Work Phone: [facility] Work Phone: 09-13-2021 09:22-0500 Diastolic blood pressure 76 mm[Hg] COMMODITY SPECIALIST-C Debra Deisi COMMODITY SPECIALIST Work Phone: [facility] Work Phone: 09-13-2021 09:22-0500 Heart rate 79 /min COMMODITY SPECIALIST-C Debra Deisi COMMODITY SPECIALIST Work Phone: [facility] Work Phone: 09-13-2021 09:22-0500 Systolic blood pressure 131 mm[Hg] COMMODITY SPECIALIST-C Debra Deisi COMMODITY SPECIALIST Work Phone: [facility] Work Phone: Encounters Encounter Date Encounter Type Care Provider Facility Start: 11-27-2024 End: 11-27-2024 Emergency department patient visit DR ISIDRO UPTON MD [facility] Start: 11-20-2024 ambulatory Dewayne Hernesto Facility: [facility] Start: 11-09-2024 End: 11-09-2024 Emergency department patient visit Jami Gabriel Facility:[facility] Start: 11-02-2024 End: 11-03-2024 Emergency department patient visit NOT RECORDED PHYSICIAN Facility:[facility] Start: 11-02-2024 End: 11-02-2024 Emergency department patient visit Minalbert Butt Facility:[facility] Start: 10-24-2024 End: 10-24-2024 ambulatory Padmini Riky [place] Start: 10-24-2024 End: 10-24-2024 [facility] Start: 07-17-2024 ambulatory KATIA LAN [facility] Start: 07-14-2024 End: 07-14-2024 Emergency department patient visit DR WAQAS GARSIA MD [facility] Start: 07-13-2024 End: 07-13-2024 Emergency department patient visit WAQAS HOLGUIN MD [facility] Start: 04-09-2024 End: 04-09-2024 ambulatory YASSER RAN Facility:[facility] Start: 04-09-2024 End: 04-09-2024 Subsequent hospital visit by physician [facility] Work Phone: Radiology Comment on above: Other cirrhosis of l iver (HCC) [K74.69] Start: 01-30-2024 End: 01-30-2024 ambulatory MARGOTSSER RIKY Facility:[facility] Start: 01-30-2024 End: 01-30-2024 ambulatory BARRINGTON TRAORE Facility:[facility] Start: 01-30-2024 End: 01-30-2024 Patient encounter procedure Barrington Traore MD Work Phone: Gastroenterology Comment on above: Other cirrhosis of l iver (HCC) (Primary Dx) Start: 01-01-2024 End: 01-01-2024 ambulatory PITER GAINES JR Facility:[facility] Start: 01-01-2024 End: 01-01-2024 Patient encounter procedure Piter Gaines MD Work Phone: Neurology Comment on above: Seizure (HCC) (Prima ry Dx) Start: 09-22-2023 End: 09-22-2023 Emergency department patient visit ISIDRO HORNE [facility] Start: 09-20-2023 End: 09-20-2023 ambulatory BARRINGTON TRAORE Facility:[facility] Start: 09-20-2023 End: 09-20-2023 Subsequent hospital visit by physician Barrington Traore MD Work Phone: Gastroenterology Comment on above: Alcoholic cirrhosis of liver without ascites (HCC) [K70.30] Start: 09-19-[facility]23 [facility] Start: 09-19-2023 End: 09-19-2023 Subsequent hospital visit by physician [facility] Radiology Comment on above: Alcoholic cirrhosis of liver without ascites (HCC) [K70.30] Start: 09-12-2023 Telephone encounter [facility] Comment on above: Education Of Patient /family; Appointment (Unable to confirm appointment for 09/20/2023) Start: 08-29-2023 End: 08-29-2023 ambulatory BARRINGTON TRAORE Facility:[facility] Start: 08-29-2023 End: 08-29-2023 Patient encounter procedure Barrington Traore MD Work Phone: Gastroenterology Comment on above: Alcoholic cirrhosis of liver without ascites (HCC) (Primary Dx) Start: 08-21-2023 End: 07-16-2024 ambulatory KATIA HORNE [facility] Start: 07-27-2023 Evaluation and management of inpatient Physician No [facility] Start: 07-27-2023 Emergency department patient visit CIPRIANO CEDEÑO [facility] Start: 07-27-2023 Emergency department patient visit Physician No [facility] Start: 07-27-2023 End: 08-08-2023 Evaluation and management of inpatient Physician No [facility] Start: 07-27-2023 End: 08-08-2023 Evaluation and management of inpatient Cipriano Cedeño DO Work Phone: [facility] Comment on above: Fall, initial encoun ter (Primary Dx); Closed fracture of second lumbar vertebra, unspecified fracture morphology, initial encounter (HCC) Start: 04-03-2023 Telephone encounter [facility] Comment on above: Referral - Liver Txp Start: 02-19-2023 End: 02-20-2023 Emergency department patient visit GREG GODDARD [facility] Start: 02-07-2023 End: 02-09-2023 Evaluation and management of inpatient [facility] Start: 09-15-2022 End: 09-17-2022 Evaluation and management of inpatient GREG GODDARD Facility:[id number] Start: 06-24-2022 End: 06-24-[address] Greg Goddard Work Phone: [facility] Work Phone: Start: 06-24-2022 End: 06-24-[address] Greg Goddard Work Phone: [facility]-Laboratory Start: 06-21-2022 Non-patient / Non-visit Dr. Greg Goddard Work Phone: [facility] [facility] Start: 06-20-2022 Non-patient / Non-visit Dr. Greg Goddard Work Phone: [facility] Start: 06-20-2022 Non-patient / Non-visit Dr. Greg Goddard Work Phone: [facility] Inpatient Physicians Start: 06-19-2022 Non-patient / Non-visit Dr. Greg Goddard Work Phone: [facility] Start: 06-18-2022 Non-patient / Non-visit Dr. Greg Goddard Work Phone: [facility] Start: 06-18-2022 Non-patient / Non-visit Dr. Greg Goddard Work Phone: [facility] Inpatient Physicians Start: 06-17-2022 Non-patient / Non-visit Dr. Greg Goddard Work Phone: [facility]patient [facility] Start: 06-17-2022 End: 06-21-2022 Evaluation and management of inpatient Dr. Greg Goddard Work Phone: [facility]-Medical Surgical 3 Start: 06-17-2022 End: 06-17-[address] Greg Goddard Work Phone: [facility] Work Phone: Start: 06-17-2022 End: 06-17-[address] Greg Goddard Work Phone: [facility]Laboratory Start: 06-17-[address] Greg Goddard Work Phone: [facility] Start: 06-16-2022 End: 06-17-2022 Emergency department patient visit Dr. Greg Goddard Work Phone: [facility]-Emergency Department Start: 06-16-2022 End: 06-16-2022 Emergency department patient visit Dr. Greg Goddard Work Phone: [facility]-Emergency Department Start: 06-14-2022 End: 06-14-[address] Greg Goddard Work Phone: [facility] Work Phone: Start: 06-14-2022 End: 06-14-[address] [facility] Start: 06-03-2022 End: 06-03-[address] Greg Goddard Work Phone: [facility] Gastroenterology Start: 05-23-2022 End: 06-15-[address] Greg Goddard Work Phone: [facility] Work Phone: Start: 05-23-2022 End: 06-15-[address] [facility] Start: 05-14-2022 End: 05-14-2022 Emergency department patient visit Dr. Greg Goddard Work Phone: [facility]-Emergency Department Start: 04-21-2022 End: 04-21-[address] Greg Goddard Work Phone: [facility] Work Phone: Start: 04-21-2022 End: 04-21-[address] [facility] Start: 04-21-[address] [facility] Start: 03-22-2022 End: 03-22-2022 ambulatory No Primary Care Physician [facility] Work Phone: Start: 03-22-2022 End: 03-22-2022 Discharged Recurring No [facility] Start: 03-11-2022 End: 03-11-2022 Patient encounter procedure No Primary Care Physician [facility] Gastroenterology Start: 03-04-2022 End: 03-04-[address] Greg Goddard Work Phone: [facility] Work Phone: Start: 03-04-2022 End: 03-04-2022 Patient encounter procedure No Primary Care Physician [facility]-Laboratory Start: 03-03-2022 Non-patient / Non-visit Dr. Nate Martinez Work Phone: [facility] Start: 03-03-2022 End: 03-03-2022 Admission to same day surgery center Dr. Nate Martinez Work Phone: [facility]-Endoscopy Start: 03-02-2022 Non-patient / Non-[facility] Start: 03-02-2022 End: 03-02-2022 Admission to same day surgery center Dr. Nate Martinez Work Phone: [facility]-Endoscopy Start: 02-14-2022 End: 02-14-2022 Discharged Recurring No Primary Care Physician [facility]-Laboratory Start: 02-14-[address] Dafne Martinez Work Phone: [facility]Laboratory Start: 02-09-2022 End: 02-09-[address] Greg Goddard Work Phone: [facility] Work Phone: Start: 02-09-2022 End: 02-09-[address] Nate Martinez Work Phone: [facility]-Outpatient Bone Densitometry Start: 12-24-2021 End: 12-24-2021 Patient encounter procedure COMMODITY SPECIALIST-C Debra Lipscomb COMMODITY SPECIALIST Work Phone: [facility]-Laboratory Start: 12-17-2021 End: 12-17-2021 Patient encounter procedure COMMODITY SPECIALIST-C Debra Lipscomb COMMODITY SPECIALIST Work Phone: [facility] Gastroenterology Start: 12-08-2021 End: 12-08-2021 Patient encounter procedure COMMODITY SPECIALIST-C Debra Lipscomb COMMODITY SPECIALIST Work Phone: [facility]Laboratory, [facility] Start: 12-08-2021 End: 12-08-2021 Patient encounter procedure COMMODITY SPECIALIST-C Debra Deisi COMMODITY SPECIALIST Work Phone: [facility] Internal Medicine Start: 12-02-2021 Non-patient / Non-visit COMMODITY SPECIALIST-C Debra Deisi COMMODITY SPECIALIST Work Phone: [facility] Start: 12-02-2021 End: 12-02-2021 Admission to same day surgery center COMMODITY SPECIALIST-C Debra Deisi COMMODITY SPECIALIST Work Phone: [facility]-Endoscopy Start: 11-29-2021 End: 11-29-2021 Patient encounter procedure COMMODITY SPECIALIST-C Debra Deisi COMMODITY SPECIALIST Work Phone: [facility]Laboratory Start: 11-19-2021 End: 11-19-2021 Patient encounter procedure COMMODITY SPECIALIST-C Debra Deisi COMMODITY SPECIALIST [facility] Start: 11-12-2021 End: 11-12-2021 Discharged Recurring COMMODITY SPECIALIST-C Debra Deisi COMMODITY SPECIALIST Work [facility] Start: 10-27-2021 End: 10-27-2021 Patient encounter procedure COMMODITY SPECIALIST-C Debra Deisi COMMODITY SPECIALIST Work [facility] [place] Start: 10-19-2021 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 [facility] Comment on above: Referral - Liver Txp (Intake-LM) Start: 10-14-2021 End: 10-14-2021 Patient encounter procedure COMMODITY SPECIALIST-C Debra Deisi COMMODITY SPECIALIST Work Phone: [facility] Internal Medicine Start: 10-13-2021 Telephone encounter Liver Txp Coordinator Work Phone: [facility] Center Comment on above: Referral - Liver Txp Start: 10-11-2021 End: 10-11-2021 Patient encounter procedure COMMODITY SPECIALIST-C Debra Deisi COMMODITY SPECIALIST Work Phone: [facility] Start: 10-08-2021 End: 10-08-2021 Patient encounter procedure COMMODITY SPECIALIST-C Debra Deisi COMMODITY SPECIALIST Work Phone: [facility] Start: 09-30-2021 End: 09-30-2021 Patient encounter procedure COMMODITY SPECIALIST-C Debra Deisi COMMODITY SPECIALIST Work Phone: [facility] Gastroenterology Start: 09-29-2021 End: 09-29-2021 Patient encounter procedure COMMODITY SPECIALIST-C Debra Deisi COMMODITY SPECIALIST Work Phone: [facility]-Laboratory Start: 09-27-2021 End: 09-27-2021 Patient encounter procedure COMMODITY SPECIALIST-C Debra Deisi COMMODITY SPECIALIST Work Phone: [facility]Laboratory Start: 09-26-2021 End: 09-26-2021 Emergency department patient visit COMMODITY SPECIALIST-C Debra Deisi COMMODITY SPECIALIST Work Phone: [facility]-Emergency Department Start: 09-14-2021 End: 09-14-2021 Patient encounter procedure COMMODITY SPECIALIST-C Debra Deisi COMMODITY SPECIALIST [facility] Start: 09-13-2021 End: 09-13-2021 Patient encounter procedure COMMODITY SPECIALIST-C Debra Deisi COMMODITY SPECIALIST Work Phone: [facility] Gastroenterology Procedures Date Procedure Procedure Detail Performing Clinician Start: 04-17-2024 PSA screening ISIDRO UPTON Comment on above: Performed By: #### [id number] #### [facility],[address] [place] [address] Start: 04-09-2024 Us abdominal real time w/image limited Barrington Traore MD Work Phone: Start: 10-02-2023 Urinalysis ISIDRO UPTON Comment on above: Result Comment: URINALYSIS Performed By: #### [id number] #### [facility],[address] [place] [address] Start: 09-20-2023 Esophagoscp rig transoral hypopharynx crv esoph Barrington Traore MD Work Phone: Start: 08-08-2023 Assay of ammonia Gus Bowen Moriah HORNE Work Phone: Start: 08-07-2023 Assay of ammonia Gus Bowen Camrondarrick Work Phone: Start: 08-06-2023 Assay of ammonia Gus Bowen Camronjeovanywestley HORNE Work Phone: Start: 08-05-2023 Gluc bld gluc mntr dev cleared fda spec home use Alex Nogueira MD Work Phone: Start: 08-05-2023 Assay of ammonia Gus Bowen Moriah HORNE Work Phone: Start: 08-04-2023 Assay of ammonia Gus Bowen Camrondarrick Work Phone: Start: 08-03-2023 Assay of ammonia Gus Bowen Moriah HORNE Work Phone: Start: 08-03-2023 PLATELET CONFIRMATION Cliff Straffin DO Work Phone: Start: 08-02-2023 Assay of ammonia Gus Bowen Camrondarrick Work Phone: Start: 08-02-2023 PLATELET CONFIRMATION Cliff Straffin DO Work Phone: Start: 08-01-2023 Assay of ammonia Gus Major Work Phone: Start: 08-01-2023 PLATELET CONFIRMATION Cliff Straffin DO Work Phone: Start: 07-31-2023 Assay of ammonia Gus Major Work Phone: Start: 07-31-2023 PLATELET CONFIRMATION Cliff Straffin DO Work Phone: Start: 07-30-2023 Assay of ammonia Gus Bowen Camrondarrick Work Phone: Start: 07-30-2023 PLATELET CONFIRMATION Cliff Straffin DO Work Phone: Start: 07-29-2023 Culture bacterial blood aerobic w/id isolates Mckinley Lizama MD Work Phone: Start: 07-29-2023 CULTURE, BLOOD 1 Mckinley Lizama MD Work Phone: Start: 07-29-2023 RESPIRATORY PANEL, MOLECULAR, WITH COVID-19 Yonas Baron MD Work Phone: Start: 07-29-2023 Assay of ammonia Gus Major MD Work Phone: Start: 07-29-2023 PLATELET CONFIRMATION Cliff Onofre DO Work Phone: Start: 07-28-2023 Assay of ammonia Clfif Onofre DO Work Phone: Start: 07-28-2023 Drug tst prsmv instrmnt chem analyzers pr date Alex Nogueira MD Work Phone: Start: 07-28-2023 Blood count complete auto&auto difrntl wbc Cliff Onofre DO Work Phone: Start: 07-28-2023 PLATELET CONFIRMATION Cliff Onofre DO Work Phone: Start: 07-27-2023 Blood typing serologic abo Cliff Hawthorne n DO Work Phone: Start: 07-27-2023 End: 07-27-2023 Mri spinal canal thoracic w/o contrast matrl Cliff Onofre DO Work Phone: Start: 07-27-2023 Comprehensive metabolic panel Cliff olverain DO Work Phone: Start: 07-27-2023 PLATELET CONFIRMATION Cliff Onofre DO Work Phone: Start: 07-27-2023 Ct cervical spine w/o contrast material Cipriano Cedeño DO Work Phone: Start: 07-27-2023 Ct head/brain w/o contrast material Cipriano Cedeño DO Work Phone: Start: 07-27-2023 Radiologic exam chest single view Sam Cedeño DO Work Phone: Start: 07-27-2023 Radex hips bilateral with pelvis 2 views Cipriano Cedeño DO Work Phone: Start: 07-23-2023 Lipid 1996 panel - Serum or Plasma Barrington Traore MD Work Phone: Start: 09-16-2022 Antibody screen GREG GODDARD Comment on above: Order Comment: Specimen Type: BLOOD SPEC IMENOrdering Facility: [facility] Address: [facility] [place] [id number] Performed By: #### L [id number], TSCR ####[facility] BLOOD BANKCLIA [id number] [place] [address] [facility] Start: 06-16-2022 Plain chest X-ray Dr. Greg Goddard Work Phone: Start: 06-16-2022 CT of head without contrast Dr. Greg richter Work Phone: Start: 05-14-2022 CT of head without contrast Dr. Greg richter Work Phone: Start: 03-03-[address] Nate Martinez Work Phone: Start: 03-02-[address] Nate Martinez Work Phone: Start: 02-09-2022 Dual energy X-ray absorptiometry Dr. Duglas Martinez Work Phone: Start: 12-02-2021 Esophagogastroduodenoscopy COMMODITY SPECIALIST-C Debra Deisi COMMODITY SPECIALIST Work Phone: Start: 10-27-2021 End: 10-27-2021 Plain x-ray of hand COMMODITY SPECIALIST-C Debra Deisi COMMODITY SPECIALIST Work Phone: Start: 10-11-2021 Biopsy/Inj or Needle Placement COMMODITY SPECIALIST-C Josselyn cca Deisi COMMODITY SPECIALIST Work Phone: Start: 10-08-2021 Ultrasonography of abdomen COMMODITY SPECIALIST-C Debra Deisi COMMODITY SPECIALIST Work Phone: Start: 10-08-2021 Ultrasound elastography COMMODITY SPECIALIST-C Debra Deisi COMMODITY SPECIALIST Work Phone: Bacteria identified in Blood by Culture Dr. Greg Goddard Work Phone: Respiratory Panel (PCR) Dr. Greg Goddard Work Phone: SARS-CoV-2 & FLU Antigen (Rapid) Dr. Greg Goddard Work Phone: Plan of Treatment Date Care Activity Detail Author Start: 09-15-2032 Urine microalbumin profile DTaP,Tdap,Td Vaccine (3 - Td or Tdap) [facility] Start: 07-23-2028 Lipid panel [facility] Start: 04-03-2028 DTaP/Tdap/Td vaccine (2 - Td or Tdap) DTaP/Tdap/Td vaccine (2 - Td or Tdap) [facility] Start: 01-29-2027 Diabetes Screening Diabetes Screening [facility] Start: 08-03-2026 Diabetes Screening Diabetes Screening [facility] Start: 08-01-2024 End: 08-01-2024 Follow-up encounter 08/01/2024 11:30 AM [facility] [address] [address] Barrington Traore MD [address] [place] [address] 6 month follow up Gastroenterology Comment on above: 6 month follow up Start: 03-17-2024 Covid-19 Vaccine ( season) Covid-19 Vaccine ( season) [facility] Start: 03-17-2024 Influenza vaccination [facility] Start: 02-09-2024 End: 02-09-2024 Patient encounter procedure 02/09/2024 10:00 AM EDT Appointment [place] [address] Other cirrhosis of liver (HCC) [K74.69] Radiology Comment on above: Other cirrhosis of liver (HCC) [K74.69] Start: 01-30-2024 End: 01-30-2024 Patient encounter procedure 01/30/2024 2:30 PM EDT Office Visit Gastroenterology [address] [address] Barrington Traore MD [address] [place] [address] Liver cirrhosis Gastroenterology Comment on above: Liver cirrhosis Start: 01-30-2024 End: 04-30-2024 [id number] [Mass/volume] in Serum or Plasma [facility] Comment on above: Expected: 01/30/2024, Expires: Start: 01-30-2024 End: 04-30-2024 Comprehensive metabolic 2000 panel - Serum or Plasma [facility] Work Phone: Comment on above: Expected: 01/30/2024, Expires: Start: 08-29-2023 End: 11-28-2023 25-hydroxyvitamin D3 [Mass/volume] in Serum or Plasma VITAMIN D 25 HYDROXY Lab Routine Alcoholic cirrhosis of liver without ascites (HCC) Expected: 08/29/2023, Expires: 11/28/2023 [facility] Work Phone: Comment on above: Expected: 08/29/2023, Expires: Start: 08-29-2023 End: 11-28-2023 ALPHA 1 ANTITRYPSIN PHENOTYPE ALPHA 1 ANTITRYPSIN PHENOTYPE Lab Routine Alcoholic cirrhosis of liver without ascites (HCC) Expected: 08/29/2023, Expires: 11/28/2023 [facility] Work Phone: Comment on above: Expected: 08/29/2023, Expires: Start: 08-29-2023 End: 11-28-2023 [id number] [Mass/volume] in Serum or Plasma ALPHA FETOPROTEIN BL Lab Routine Alcoholic cirrhosis of liver without ascites (HCC) Expected: 08/29/2023, Expires: 11/28/2023 [facility] Work Phone: Comment on above: Expected: 08/29/2023, Expires: Start: 08-29-2023 End: 11-28-2023 CBC panel - Blood by Automated count CBC Lab Routine Alcoholic cirrhosis of liver without ascites (HCC) Expected: 08/29/2023, Expires: 11/28/2023 [facility] Work Phone: Comment on above: Expected: 08/29/2023, Expires: Start: 08-29-2023 End: 11-28-2023 Ceruloplasmin [Mass/volume] in Serum or Plasma CERULOPLASMIN BLD Lab Routine Alcoholic cirrhosis of liver without ascites (HCC) Expected: 08/29/2023, Expires: 11/28/2023 [facility] Work Phone: Comment on above: Expected: 08/29/2023, Expires: Start: 08-29-2023 End: 11-28-2023 Chronic hepatitis differentiation between hepatitis B and C virus panel - Serum or Plasma HEP REMOTE PANEL BL Lab Routine Alcoholic cirrhosis of liver without ascites (HCC) Expected: 08/29/2023, Expires: 11/28/2023 [facility] Work Phone: Comment on above: Expected: 08/29/2023, Expires: Start: 08-29-2023 End: 11-28-2023 Comprehensive metabolic 2000 panel - Serum or Plasma COMP METABOLIC PANEL Lab Routine Alcoholic cirrhosis of liver without ascites (HCC) Expected: 08/29/2023, Expires: 11/28/2023 [facility] Work Phone: Comment on above: Expected: 08/29/2023, Expires: 4 Start: 08-29-2023 End: 11-28-2023 Ferritin [Mass/volume] in Serum or Plasma FERRITIN BLD Lab Routine Alcoholic cirrhosis of liver without ascites (HCC) Expected: 08/29/2023, Expires: 11/28/2023 [facility] Work Phone: Comment on above: Expected: 08/29/2023, Expires: Start: 08-29-2023 End: 11-28-2023 HEPATITIS A ANTIBODY, IGG HEPATITIS A ANTIBODY, IGG Lab Routine Alcoholic cirrhosis of liver without ascites (HCC) Expected: 08/29/2023, Expires: 11/28/2023 [facility] Work Phone: Comment on above: Expected: 08/29/2023, Expires: Start: 08-29-2023 End: 11-28-2023 Iron and Iron binding capacity panel - Serum or Plasma IRON + TIBC Lab Routine Alcoholic cirrhosis of liver without ascites (HCC) Expected: 08/29/2023, Expires: 11/28/2023 [facility] Work Phone: Comment on above: Expected: 08/29/2023, Expires: Start: 08-29-2023 End: 11-28-2023 PT panel - Platelet poor plasma by Coagulation assay PROTHROMBIN TIME/PT Lab Routine Alcoholic cirrhosis of liver without ascites (HCC) Expected: 08/29/2023, Expires: 11/28/2023 [facility] Work Phone: Comment on above: Expected: 08/29/2023, Expires: 4 Start: 08-29-2023 End: 11-28-2023 Thyrotropin [Units/volume] in Serum or Plasma TSH BLD Lab Routine Alcoholic cirrhosis of liver without ascites (HCC) Expected: 08/29/2023, Expires: 11/28/2023 [facility] Work Phone: Comment on above: Expected: 08/29/2023, Expires: 4 Start: 07-17-2023 Behavioral Health Screening Behavioral Health Screening [facility] [place] Start: 07-17-2023 Depression Assessment Depression Assessment [facility] Start: 03-17-2023 Covid-19 Vaccine () Covid-19 Vaccine () [facility] Start: 03-17-2023 Influenza vaccination Influenza Vaccine (#1) [facility] Start: 02-14-2023 Influenza vaccination Flu vaccine (#1) [facility] Start: 06-22-2022 [facility] Work Phone: Start: 06-21-2022 Patient discharge [facility] Work Phone: Start: 06-21-2022 Referral to service [facility] Work Phone: Start: 06-20-2022 End: 06-20-2022 Blood culture [facility] Work Phone: Start: 06-20-2022 [facility] Work Phone: Start: 06-20-2022 Respiratory secretion precautions [facility] Work Phone: Start: 06-20-2022 [facility] Work Phone: Start: 06-18-2022 Application of intermittent pneumatic compression device [facility] Work Phone: Start: 06-17-2022 Following clinical pathway protocol [facility] Work Phone: Start: 06-17-2022 Ambulation without limitation [facility] Work Phone: Start: 06-17-2022 Assessment of risk of venous thromboembolism [facility] Work Phone: Start: 06-17-2022 Insertion of catheter into peripheral vein [facility] Work Phone: Start: 06-17-2022 Providing care according to standard [facility] Work Phone: Start: 06-17-2022 Referral to gastroenterology service [facility] Work Phone: Start: 06-17-2022 [facility] Work Phone: Start: 06-17-2022 Admission procedure [facility] Work Phone: Start: 06-17-2022 Patient referral to dietitian [facility] Work Phone: Start: 03-03-2022 Colsc flx w/rmvl of tumor polyp lesion snare tq COLONOSCOPY W/LESION REMOVAL [facility] Work Phone: Start: 03-03-2022 Patient discharge [facility] Work Phone: Start: 03-02-2022 Colonoscopy flx dx w/collj spec when pfrmd DIAGNOSTIC COLONOSCOPY [facility] Work Phone: Start: 03-02-2022 Patient discharge [facility] Work Phone: Start: 12-02-2021 Egd band ligation esophgeal/gastric varices EGD VARICES LIGATION [facility] Work Phone: Start: 12-02-2021 Patient discharge [facility] Work Phone: Start: 2019 Screening for malignant neoplasm of colon [facility] Start: 1993 Hepatitis A vaccine (1 of 2 - Risk 2-dose series) Hepatitis A vaccine (1 of 2 - Risk 2-dose series) [facility] Start: 1993 Hepatitis B Vaccine (1 of 3 - 19+ 3-dose series) Hepatitis B Vaccine (1 of 3 - 19+ 3-dose series) [facility] [place] Start: 1993 Shingrix Vaccine (1 of 2) Shingrix Vaccine (1 of 2) [facility] Start: 1992 Anxiety Screening Anxiety Screening [facility] [place] Start: 1992 Depression Screening Depression Screening [facility] Start: 1992 Hepatitis C screening Hepatitis C screen [facility] Start: 1989 HIV screening HIV screen [facility] Start: 1986 Depression Screen Depression Screen [facility] Start: 1980 Pneumococcal 0-64 years Vaccine (1 - PCV) Pneumococcal 0-64 years Vaccine (1 - PCV) [facility] Start: 1980 Pneumococcal vaccination Pneumococcal Vaccine (1 of 2 - PCV) [facility] Start: 1974 COVID-19 Vaccine (#1) COVID-19 Vaccine (#1) [facility] Start: 1974 Hepatitis B vaccine (1 of 3 - 3-dose series) Hepatitis B vaccine (1 of 3 - 3-dose series) [facility] Bacteria identified in Blood by Culture Blood Culture [facility] Work Phone: Blood culture [facility] Work Phone: End: 09-27-2024 CT Liver W contrast IV CT LIVER W IVCON Radiology Routine Alcoholic cirrhosis of liver without ascites (HCC) 1 Occurrences starting 08/29/2023 until 09/27/2024 [facility] Work Phone: Comment on above: 1 Occurrences starting 08/29/2023 until 09/27/2024 CT Liver W contrast IV CT LIVER W IVCON Radiology Routine Alcoholic cirrhosis of liver without ascites (HCC) 09/19/2023 2:34 PM EST [facility] Work Phone: End: 08-29-2024 EGD - THERAPEUTIC, EUS, OR TUBE INTERVENTIONS EGD - THERAPEUTIC, EUS, OR TUBE INTERVENTIONS Endoscopy Routine Alcoholic cirrhosis of liver without ascites (HCC) 1 Occurrences starting 08/29/2023 until 08/29/2024 [facility] Work Phone: Comment on above: 1 Occurrences starting 08/29/2023 until 08/29/2024 Oxygen therapy [[facility] Data Set] Initiate Oxygen Therapy Protocol Respiratory Care Routine As Needed until discontinued starting 07/27/2023 [facility] Comment on above: As Needed until discontinued starting Patient Education [facility] Work Phone: Patient referral [facility] Work Phone: Procedure [facility] Work Phone: Serum insulin measurement [facility] Work Phone: Spirometry panel Incentive nessa metry Respiratory Care Routine Every 2hr while awake until discontinued starting 07/28/2023 [facility] Comment on above: Every 2hr while awake until discontinued starting 07/28/2023 End: 02-28-2025 US Abdomen RUQ US ABD RIGHT UPPER QUADRANT Radiology Routine Other cirrhosis of liver (HCC) 1 Occurrences starting 01/30/2024 until 02/28/2025 [facility] Comment on above: 1 Occurrences starting 01/30/2024 until 02/28/2025 [facility] Immunizations Immunization Date Immunization Notes Care Provider Fa [facility] 11-27-2024 tetanus toxoid, redu dominick diphtheria toxoid, and acellular pertussis vaccine, adsorbed DR ISIDRO UPTON MD [facility] 09-15-2022 tetanus toxoid, redu dominick diphtheria toxoid, and acellular pertussis vaccine, adsorbed DR ISIDRO UPTON MD [facility] 04-03-2018 tetanus toxoid, redu dominick diphtheria toxoid, and acellular pertussis vaccine, adsorbed Ashia Sinha RN [facility] Payers Date Payer Category Payer Self-pay [id number] 2023 Medicaid [id number] 2023 Private Health Insurance HUMANA HUMANA MEDICAID [facility] [id number] 2023-Present [address] [address] [place] [address] Medicaid [id number] 2023 Medicaid [id number] 2023 Unknown [id number] 2023 Unknown [id number] 2022 Unknown ANTHEM BLUE CARD PPO OOS [id number] 2022-Present [phone] [address] [place] [address] PPO [id number] 2021 Unknown [id number] 2021 Unknown ANTHEM BLUE CARD PPO OOS [id number] 2021-Present [phone] [address] [place] [address] PPO [id number] 1974 Unknown [id number] 2.16.840.1.162154.3.579.2.9 03 1974 Unknown [id number] 2.16.840.1.463118.3.579.2.9 02 1974 Unknown [id number] 2.16.840.1.596722.3.579.2.2 04 1974 Unknown [id number] 2.16.840.1.127318.3.579.2.2 04 1974 Unknown [id number] 2.16.840.1.956840.3.579.2.2 04 1974 Unknown [id number] 2.16.840.1.439279.3.579.2.2 04 1974 Unknown [id number] 2.16.840.1.159938.3.579.2.2 04 1974 Unknown [id number] 2.16.840.1.567139.3.579.2.2 04 1974 Unknown [id number] 2.16.840.1.082944.3.579.2.6 51 1974 Unknown [id number] 2.16.840.1.185106.3.579.2.6 51 1974 Unknown [id number] 2.16.840.1.331698.3.579.2.6 51 1974 Unknown [id number] 2.16.840.1.738758.3.579.2.6 27 1974 Unknown [id number] 2.16.840.1.033100.3.579.2.6 27 1974 Unknown [id number] 2.16.840.1.082890.3.579.2.6 27 1974 Unknown [id number] 2.16.840.1.732120.3.579.2.6 27 Medicaid [id number] Unknown [facility] PACKAGE PLAN [id number] Unknown [id number] 2.16.840.1.984081.3.579.2.4 62 Unknown [id number] 2.16.840.1.817961.3.579.2.4 62 Unknown [id number] 2.16.840.1.880020.3.579.2.4 62 Unknown [id number] 2.16.840.1.874204.3.579.2.4 62 Unknown [id number] 2.16.840.1.109809.3.579.2.4 62 Social History Date Type Detail Facility Start: 10-11-2021 End: 06-17-2022 Tobacco smoking status NHIS Unknown if ever smoked [facility] [place] Start: 1975 Sex Assigned At Male A [facility] Start: 1975 Sex Assigned At Not on file C [facility] Start: 10-02-2021 End: 10-12-2021 Exposure to SARS-CoV-2 (event) Not sure [facility] Start: 12-07-2022 End: 01-30-2024 History of Social function [employer] Start: 12-07-2022 End: 01-30-2024 Area Deprivation Index [employer] [place] National Score (1-10 0), lower number is lower risk 70 [facility] Has the Mailgun, M-Changa, or water [employer] threatened to shut off services in your home in past 12Mo No [employer] How often to you hav e a drink containing alcohol? Never [employer] (I/We) worried samir er (my/our) food would run out before (I/we) got money to buy more. Never true [facility] Start: 08-29-2023 Tobacco smoking stat us NHIS Never smoked tobacco [facility] Start: 08-29-2023 Tobacco use and exposure Smoke less tobacco non-user [facility] Start: 08-29-2023 End: 01-30-2024 Alcohol intake Ex-drinker (finding) [facility] Start: 08-29-2023 Tobacco Comment Vape nicotine [facility] Tobacco Nicotine Use: Va ping Product in Last 90 Days. [facility] Tobacco smoking status [facility] Start: 07-13-2024 Sex Male (finding) [facility] Start: 11-02-2024 Tobacco smoking status Ex-smoker (fi nding) [facility] Medical Equipment Procedure Code Equipment Code Equipment Origin al Text Equipment Identifier Dates EGD, with monitored anesthesia care SUPER 7 SPEEDBAND/ LIGATOR FDA Start: 12-02-2021 EGD, with monitored anesthesia care SUPER 7 SPEEDBAND/ LIGATOR FDA Start: 12-02-2021 EGD, with monitored anesthesia care SUPER 7 SPEEDBAND/ LIGATOR FDA Start: 12-02-2021 EGD, with monitored anesthesia care SUPER 7 SPEEDBAND/ LIGATOR FDA Start: 12-02-2021 EGD, with monitored anesthesia care SUPER 7 SPEEDBAND/ LIGATOR FDA Start: 12-02-2021 EGD, with monitored anesthesia care SUPER 7 SPEEDBAND/ LIGATOR FDA Start: 12-02-2021 EGD, with monitored anesthesia care SUPER 7 SPEEDBAND/ LIGATOR FDA Start: 12-02-2021 EGD, with monitored anesthesia care SUPER 7 SPEEDBAND/ LIGATOR FDA Start: 12-02-2021 EGD, with monitored anesthesia care SUPER 7 SPEEDBAND/ LIGATOR FDA Start: 12-02-2021 EGD, with monitored anesthesia care SUPER 7 SPEEDBAND/ LIGATOR FDA Start: 12-02-2021 EGD, with monitored anesthesia care SUPER 7 SPEEDBAND/ LIGATOR FDA Start: 12-02-2021 EGD, with monitored anesthesia care SUPER 7 SPEEDBAND/ LIGATOR FDA Start: 12-02-2021 EGD, with monitored anesthesia care SUPER 7 SPEEDBAND/ LIGATOR FDA Start: 12-02-2021 EGD, with monitored anesthesia care SUPER 7 SPEEDBAND/ LIGATOR FDA Start: 12-02-2021 Plate L1 Mmf Fix ation 2.0mm L1 Screw Cp Ti 7 Hole .5mm X 110mm [id number] Start: 09-16-2022 Plate Bone 3mm 6 Hole Reconstruction [employer] [id number] Start: 09-16-2022 L1 Mmf Screw Dri ll Free Ti-6al-4v 2.0mm X 8mm Thd 10mm (07/17) [id number] Start: 09-16-2022 L1 Mmf Screw Dri ll Free Ti-6al-4v 2.0mm X 8mm Thd 10mm Pk/5 [id number] Start: 09-16-2022 L1 Mmf Screw Dri ll Free Ti-6al-4v 2.0mm X 8mm Thd 10mm Pk/5 [id number] Start: 09-16-2022 Plate L1 Mmf Fix ation 2.0mm L1 Screw Cp Ti 7 Hole .5mm X 110mm [id number] Start: 09-16-2022 L1 Mmf Screw Dri ll Free Ti-6al-4v 2.0mm X 8mm Thd 10mm (07/17) [id number] Start: 09-16-2022 L1 Mmf Screw Dri ll Free Ti-6al-4v 2.0mm X 8mm Thd 10mm (07/17) [id number] Start: 09-16-2022 Locking Screw 2.7x13mm [id number] S tart: 09-16-2022 L1 Mmf Screw Dri ll Free Ti-6al-4v 2.0mm X 8mm Thd 10mm (07/17) [id number] Start: 09-16-2022 Goals Date Patient Goal Desired Activity /State Functional Status Date Assessment Result Facility 11-27-2024 Functional Status Assistive Device None A [facility] 11-27-2024 Functional Status Standard Safet y ID band on, Call device within reach, Bed in low position, Wheels locked, Upper/Half-Length side-rails up, Phone within reach [facility] 07-14-2024 Functional Status Activity Jayna tance Minimum assistance [facility] 07-14-2024 Functional Status Standard Safet y ID band on, Call device within reach, Bed in low position, Wheels locked, Upper/Half-Length side-rails up, Safety level maintained [facility] 07-13-2024 Functional Status Assistive Device Wheelc hair [facility] 07-13-2024 Functional Status Standard Safet y ID band on, Call device within reach, Bed in low position, Wheels locked, Upper/Half-Length side-rails up, Bedside Cart Locked [facility] 06-21-2022 Functional status Ambulates [facility] Work Phone: Mental Status Date Assessment Result Facility 11-27-2024 Mental Status Orientation Oriented x 4 [facility] 11-27-2024 Mental Status [facility] 07-14-2024 Mental Status Orientation Oriented x 4 [facility] 07-14-2024 Mental Status [facility] 07-13-2024 Mental Status Orientation Oriented x 4 [facility] 07-13-2024 Mental Status [facility] 06-21-2022 Cognitive function Awake;Alert;A ppropriate;Follow s Commands [facility] Work Phone: 06-20-2022 Cognitive function Voice/Name [facility] Work Phone: 06-16-2022 Cognitive function Level Of Cons ciousness Awake;Alert;Appropriate;Follow s Commands [facility] Work Phone: 06-16-2022 Cognitive function Voice/Name [facility] Work Phone: 05-14-[address] [facility] Work Phone: 03-03-2022 Cognitive function Level Of Consciousness Drowsy [facility] Work Phone: 03-03-2022 Cognitive function Patient Orien tation Person;Place;Time [facility] Work Phone: 03-02-2022 Cognitive function Voice/Name [facility] Work Phone: 12-02-2021 Cognitive function Follows Commands [facility] Work Phone: 10-11-2021 Cognitive function Voice/Name [facility] Work Phone: 09-26-2021 Cognitive function Level Of Cons ciousness Awake;Appropriate;Follows Commands;Disoriented [facility] Work Phone: Clinical Notes 10-13-2021 to 11-27-2024 Note Date & Type Note Facility 11-27-2024 Nurse Progress note kolby care delayed, now arrival ETA is 2200 Digitally Signed by Dora Floyd RN on 11/27/2024 08:59 PM [facility] 11-27-2024 Hospital Discharg e instructions Patient Education 11/27/2024 18:40:36 Laceration: All Closures Laceration: All Closures A laceration is a cut through the skin. This will usually require stitches (sutures) or anthony if it is deep. Minor cuts may be treated with a surgical tape closure or skin glue. Home care Your healthcare provider may prescribe an antibiotic. This is to help prevent infection. Follow all instructions for taking this medicine. Take the medicine every day until it is gone or you are told to stop. You should not have any left over. The healthcare provider may prescribe medicines for pain. If no pain medicines were prescribed, you can use xwdd-urn-[id number] pain medicines. Follow instructions for taking any pain medicines. (Note: If you have chronic liver or kidney disease, or ever had a stomach ulcer or gastrointestinal bleeding, talk with your doctor before using these medicines.) Follow the healthcare provider s instructions on how to care for the cut. Keep the wound clean and dry. Do not get the wound wet until you are told it is OK to do so. If the area gets wet, gently pat it dry with a clean cloth. Replace the wet bandage with a dry one. If a bandage was applied and it becomes wet or dirty, replace it. Otherwise, leave it in place for the first 24 hours. Caring for sutures or anthony: Once you no longer need to keep them dry, clean the wound daily. First, remove the bandage. Then wash the area gently with soap and warm water, or as directed by the healthcare provider. Use a wet cotton swab to loosen and remove any blood or crust that forms. After cleaning, apply a thin layer of antibiotic ointment if advised. Then put on a new bandage unless you are told not to. Caring for skin glue: Don t put apply liquid, ointment, or cream on the wound while the glue is in place. Avoid activities that cause heavy sweating. Protect the wound from sunlight. Do not scratch, rub, or pick at the adhesive film. Do not place tape directly over the film. The glue should peel off within 5 to 10 days. Caring for surgical tape: Keep the area dry. If it gets wet, blot it dry with a clean towel. Surgical tape usually falls off within 7 to 10 days. If it has not fallen off after 10 days, you can take it off yourself. Put mineral oil or petroleum jelly on a cotton ball and gently rub the tape until it is removed. Once you can get the wound wet, you may shower as usual but do not soak the wound in water (no tub baths or swimming) Even with proper treatment, a wound infection may sometimes occur. Check the wound daily for signs of infection listed below. Scalp wounds During the first 2 days, you may carefully rinse your hair in the shower to remove blood, glass or dirt particles. After two days, you may shower and shampoo your hair normally. Do not soak your scalp in the tub or go swimming until the stitches or anthony have been removed. Talk with your healthcare provider before applying any antibiotic ointment to the wound. Mouth wounds Eat soft foods to reduce pain. If the cut is inside of your mouth, clean by rinsing after each meal and at bedtime with a mixture of equal parts water and hydrogen peroxide (do not swallow!). Or, you can use a cotton swab to directly apply hydrogen peroxide onto the cut. You may also be prescribed a chlorhexidine solution to rise with. Mouth wounds can be painful when eating. You may use an wwjr-rjs-hkxbnot local numbing solution for pain relief. If this is not available, you may use any numbing solution intended for teething babies. You may apply this directly to the sores with a cotton-tip swab or with your finger. Follow-up care Follow up with your healthcare provider as advised. Ask your healthcare provider how long sutures should be left in place. Be sure to return for suture removal as directed. If dissolving stitches were used in the mouth, these should fall out or dissolve without the need for removal. If tape closures were used, remove them yourself when your provider recommends if they have not fallen off on their own. If skin glue was used, the film will wear off by itself. Generally, you should keep healing wounds out of direct sunlight for the first couple of months to try to lessen scarring. When to seek medical advice Call your healthcare provider right away if any of these occur: Signs of infection, including increasing pain in the wound, increasing wound redness or swelling, or pus or bad odor coming from the wound Fever of 100.4 F (38. C) or higher, or as directed by your healthcare provider Stitches or anthony come apart or fall out or surgical tape falls off before 7 days Wound edges reopen Wound changes colors Numbness around the wound after any numbing medicine should have worn off Decreased movement around the injured area Call 911 Call 911 if you can't control the wound bleeding with direct pressure. [id number] [facility]. [address] [place] [address]. All rights reserved. This information is not intended as a substitute for professional medical care. Always follow your healthcare professional's instructions. Follow Up Care 11/27/2024 18:05:55 With:Follow up with primary care provider Address:Unknown When:2-4 days [facility] 11-27-2024 Nurse Progress note Called [facility] to arrange transport back at [facility] Told 60 min ETA. Called Juan olson to give update and there was no answer. Digitally Signed by Dora Floyd RN on 11/27/2024 07:30 PM [facility] 11-27-2024 Note Discharge Instructions Thank you for allowing [facility] to assist you with your healthcare needs. The following is important discharge information regarding your hospital visit. Diagnosis from Today's Visit Finger laceration What to Do Next Instructions from Your Care Team No qualifying data available. Post Acute Orders No qualifying data available. You Need to Schedule the Following Appointments Follow Up with Follow up with primary care provider When:Within 2-4 days Allergies NKA No Known Medication Allergies Immunizations This Visit Given Vaccine Datetetanus/diphth/pertuss (Tdap) adult/adol 11/27/2024 Medications Please ask your primary doctor or pharmacist before taking any other medication not listed, including over the counter drugs, herbal medications, vitamins and or supplements as they may interact with your home medications. What How Much When Instructions Last Dose Unchanged ARIPiprazole (ARIPiprazole 15 mg oral tablet) 0.5 tab(s) by mouth Once a day Unchanged dextromethorphan-guaifenesin (Ashley-Tussin DM 20 mg-200 mg/ 10 mL oral liquid) 10 Milliliter by mouth Every 8 hours as needed for Cough and congestion Unchanged docusate-senna (Senexon-S 50 mg-8.6 mg oral tablet) 1 tab(s) by mouth Once a day Unchanged folic acid (folic acid 1 mg oral tablet) 1 tab(s) by mouth Once a day Unchanged furosemide (furosemide 40 mg oral tablet) 1 tab(s) by mouth Once a day Unchanged lactulose (lactulose 10 g/ 15 mL oral syrup) 30 Milliliter by mouth Three (3) times a day Duration: 10 Days Unchanged QUEtiapine (QUEtiapine 50 mg oral tablet) 1 tab(s) by mouth Daily at bedtime Unchanged rifaximin (Xifaxan 550 mg oral tablet) 1 tab(s) by mouth Two (2) times a day Unchanged sertraline (sertraline 100 mg oral tablet) 1 tab(s) by mouth Every day Unchanged spironolactone (spironolactone 25 mg oral tablet) 1 tab(s) by mouth Once a day Unchanged thiamine (Vitamin B1 100 mg oral tablet) 1 tab(s) by mouth Once a day Duration: 10 Days Please take this list to your next doctor s visit. Bring all medications you take, including over the counter medications, herbals and other supplements with you to your doctor s visit. Patients and families are reminded to discard old lists and to update any records with all medication providers or retail pharmacies. Education Materials Laceration: All Closures A laceration is a cut through the skin. This will usually require stitches (sutures) or anthony if it is deep. Minor cuts may be treated with a surgical tape closure or skin glue. Home care Your healthcare provider may prescribe an antibiotic. This is to help prevent infection. Follow all instructions for taking this medicine. Take the medicine every day until it is gone or you are told to stop. You should not have any left over. The healthcare provider may prescribe medicines for pain. If no pain medicines were prescribed, you can use jbvr-nbo-ihkmsff pain medicines. Follow instructions for taking any pain medicines. (Note: If you have chronic liver or kidney disease, or ever had a stomach ulcer or gastrointestinal bleeding, talk with your doctor before using these medicines.) Follow the healthcare provider s instructions on how to care for the cut. Keep the wound clean and dry. Do not get the wound wet until you are told it is OK to do so. If the area gets wet, gently pat it dry with a clean cloth. Replace the wet bandage with a dry one. If a bandage was applied and it becomes wet or dirty, replace it. Otherwise, leave it in place for the first 24 hours. Caring for sutures or anthony: Once you no longer need to keep them dry, clean the wound daily. First, remove the bandage. Then wash the area gently with soap and warm water, or as directed by the healthcare provider. Use a wet cotton swab to loosen and remove any blood or crust that forms. After cleaning, apply a thin layer of antibiotic ointment if advised. Then put on a new bandage unless you are told not to. Caring for skin glue: Don t put apply liquid, ointment, or cream on the wound while the glue is in place. Avoid activities that cause heavy sweating. Protect the wound from sunlight. Do not scratch, rub, or pick at the adhesive film. Do not place tape directly over the film. The glue should peel off within 5 to 10 days. Caring for surgical tape: Keep the area dry. If it gets wet, blot it dry with a clean towel. Surgical tape usually falls off within 7 to 10 days. If it has not fallen off after 10 days, you can take it off yourself. Put mineral oil or petroleum jelly on a cotton ball and gently rub the tape until it is removed. Once you can get the wound wet, you may shower as usual but do not soak the wound in water (no tub baths or swimming) Even with proper treatment, a wound infection may sometimes occur. Check the wound daily for signs of infection listed below. Scalp wounds During the first 2 days, you may carefully rinse your hair in the shower to remove blood, glass or dirt particles. After two days, you may shower and shampoo your hair normally. Do not soak your scalp in the tub or go swimming until the stitches or anthony have been removed. Talk with your healthcare provider before applying any antibiotic ointment to the wound. Mouth wounds Eat soft foods to reduce pain. If the cut is inside of your mouth, clean by rinsing after each meal and at bedtime with a mixture of equal parts water and hydrogen peroxide (do not swallow!). Or, you can use a cotton swab to directly apply hydrogen peroxide onto the cut. You may also be prescribed a chlorhexidine solution to rise with. Mouth wounds can be painful when eating. You may use an ncmr-ivv-izhlmfj local numbing solution for pain relief. If this is not available, you may use any numbing solution intended for teething babies. You may apply this directly to the sores with a cotton-tip swab or with your finger. Follow-up care Follow up with your healthcare provider as advised. Ask your healthcare provider how long sutures should be left in place. Be sure to return for suture removal as directed. If dissolving stitches were used in the mouth, these should fall out or dissolve without the need for removal. If tape closures were used, remove them yourself when your provider recommends if they have not fallen off on their own. If skin glue was used, the film will wear off by itself. Generally, you should keep healing wounds out of direct sunlight for the first couple of months to try to lessen scarring. When to seek medical advice Call your healthcare provider right away if any of these occur: Signs of infection, including increasing pain in the wound, increasing wound redness or swelling, or pus or bad odor coming from the wound Fever of 100.4 F (38. C) or higher, or as directed by your healthcare provider Stitches or anthony come apart or fall out or surgical tape falls off before 7 days Wound edges reopen Wound changes colors Numbness around the wound after any numbing medicine should have worn off Decreased movement around the injured area Call 911 Call 911 if you can't control the wound bleeding with direct pressure. 3431-0874 [facility]. [address] [place] [address], [place] [address]. All rights reserved. This information is not intended as a substitute for professional medical care. Always follow your healthcare professional's instructions. Additional Information VACCINATE! IT SAVES LIVES! Members of the community who have not yet received the COVID-19 vaccine and would like to receive it can visit one of [facility] vaccine clinics. There are many vaccine clinic locations within the State. For locations and available times, please visit [email or web address] [email or web address] It is important to note that some COVID mobile vaccine clinics are held outdoors and may be canceled in rainy or stormy conditions. To learn more about pediatric vaccinations (ages 5-11), we invite you to visit the [facility] webpage. [email or web address] To learn more about the COVID-19 vaccine, we invite you to visit the CDC website for a list of frequently asked questions. https://www.cdc.gov/coronavirus/ 2019-ncov/vaccines/faq.html [facility] Portal Access Instructions: Stay connected with your healthcare team and access your personal medical information anytime with the [facility] Patient Portal. If you would like a full copy of your medical records please contact the [facility] Medical Records Department Monday through Monday between 8a.m. and 4:30p.m. Please follow the directions below to access the portal: 1.Access the email account you provided upon registration to the hospital.2.Look for an invitation email from [facility].3.Open the email and access the invitation link: Accept Invitation to [facility]4.Fill in the required blair to create your account. Sign into [email or web address] with your username and password that you created in the above steps to stay up to date. You can then view a summary of results, a summary of your visits, and the ability to download your summaries to your computer or send the information securely to a physician. Remember that your healthcare information is confidential, so carefully consider who you will allow to register on the [facility] Patient Portal for access to your information. You can also access the [facility] Patient Portal on the [facility] jelena. Simply click on Health Records under Health Data and then click on the [facility] logo. HOW TO SAFELY DISPOSE OF PRESCRIPTION MEDICATIONS Please use one of the following methods to safely dispose of your unused medications. 1.Use a drug disposal kit: the drug disposal pouch allows you to safely discard your old and unused drugs. Ask your nurse to give you one when you are discharged.2.Visit a local take-back location: Many local pharmacies and police departments have programs that collect old and unwanted prescription drugs. Call your local pharmacy or go to http://GroupFlier.Enviance/7Z3Ed9k to find one close to you.3.Make use of household items: Use cat litter or old coffee grounds to dispose medications if other options are not available. Mix your drugs with these household products, seal them in an airtight container and throw it into the garbage. Call [facility]: [phone] to be sure your drugs can be disposed of in this way. Some medicines may require a different approach.4.Never flush your medications down the toilet. IF YOU HAVE BEEN PRESCRIBED AN OPIOIDS FOR PAIN If you have been prescribed an opioid (such as hydrocodone, oxycodone or morphine), it is critical to understand the possible side effects and risks of opioid pain medications. Even when taken as directed, opioids can have several side effects including: Tolerance, meaning you might need to take more of a medication for the same pain relief. Nausea, vomiting and/or constipation. Sleepiness, dizziness, dry mouth, confusion, depression or itching. Physical dependence, meaning you have withdrawal symptoms when a medication is stopped ? this can develop within a few days. KNOW YOUR RESPONSIBILITIES It is important to know exactly how much and how often to take the opioid pain medications you are prescribed. Never take opioids in higher amounts or more often than prescribed. Do not combine opioids with alcohol or other drugs that cause drowsiness, such as benzodiazepines, also known as benzos, including diazepam and alprazolam, muscle relaxants or sleep aids. Never sell or share prescription opioids. This is illegal. Store opioids in a secure place and out of reach of others (including children, family, friends and visitors). The last page(s) of this document has been signed and retained as a CHART COPY Signatures Patient Education Materials Laceration: All Closures Medication Leaflets My discharge plan and instructions have been reviewed and explained to me and IALIA MICHAEL J understand my current condition and have read and understand these discharge instructions. I have received a written copy of the plan/instructions. If I have questions, I am aware that I should contact my doctor. Patient/Senior Quality Assurance Specialist Signature: Date/Time: Relationship to Patient: Witness Name/Signature: Date/Time: [facility] 07-14-2024 Hospital Discharg e instructions Patient Education 07/14/2024 03:53:56 Neck Sprain or Strain Neck Sprain or Strain A sudden force that causes turning or bending of the neck can cause sprain or strain. An example would be the force from a car accident. This can stretch or tear muscles called a strain. It can also stretch or tear ligaments called a sprain. Either of these can cause neck pain. Sometimes neck pain occurs after a simple awkward movement. In either case, muscle spasm is commonly present and contributes to the pain. Unless you had a forceful physical injury (for example, a car accident or fall), X-rays are often not ordered for the initial evaluation of neck pain. If pain continues and does not respond to medical treatment, X-rays and other tests may be done later. Home care You may feel more soreness and spasm the first few days after the injury. Rest until symptoms start to improve. When lying down, use a comfortable pillow or a rolled towel that supports the head and keeps the spine in a neutral position. The position of the head should not be tilted forward or backward. Apply an ice pack over the injured area for 15 to 20 minutes every 3 to 6 hours. Do this for the first 24 to 48 hours. You can make an ice pack by filling a plastic bag that seals at the top with ice cubes and then wrapping it with a thin towel. After 48 hours, apply heat (warm shower or warm bath) for 15 to 20 minutes several times a day, or alternate ice and heat. You may use himy-jkb-fwizsye pain medicine to control pain, unless another pain medicine was prescribed. If you have chronic liver or kidney disease or ever had a stomach ulcer or gastrointestinal bleeding, talk with your healthcare provider before using these medicines. If a soft cervical collar was prescribed, only ear it for periods of increased pain. It should not be worn for more than 3 hours a day, or for longer than 1 to 2 weeks. Follow-up care Follow up with your healthcare provider, or as directed. Physical therapy may be needed. Sometimes fractures don t show up on the first X-ray. Bruises and sprains can sometimes hurt as much as a fracture. These injuries can take time to heal completely. If your symptoms don t improve or they get worse, talk with your healthcare provider. You may need a repeat X-ray or other tests. If X-rays were taken, you will be told of any new findings that may affect your care. Call 911 Call 911 if you have: Neck swelling, difficulty or painful swallowing Trouble breathing Chest pain When to seek medical advice Call your healthcare provider right away if any of these occur: Pain becomes worse or spreads into your arms or legs Weakness or numbness in one or both arms or legs [id number] [facility]. [address] [place] [address]. All rights reserved. This information is not intended as a substitute for professional medical care. Always follow your healthcare professional's instructions. 07/14/2024 03:53:52 Head Injury (Adult) Head Injury (Adult) You have a head injury. It does not appear serious at this time. But symptoms of a more serious problem, such as a mild brain injury (concussion) or bruising or bleeding in the brain, may appear later. For this reason, you or someone caring for you will need to watch for the symptoms listed below. Once you re home, also be sure to follow any care instructions you re given. Home care Watch for the following symptoms Seek emergency medical care if you have any of these symptoms over the next hours to days: Headache Nausea or vomiting Dizziness Sensitivity to light or noise Unusual sleepiness or grogginess Trouble falling asleep Personality changes Vision changes Memory loss Confusion Trouble walking or clumsiness Loss of consciousness (even for a short time) Inability to be awakened Stiff neck Weakness or numbness in any part of the body Seizures General care If you were prescribed medicines for pain, use them as directed. Note: Don t take other medicines for pain without talking to your provider first. To help reduce swelling and pain, apply a cold source to the injured area for up to 20 minutes at a time. Do this as often as directed. Use a cold pack or bag of ice wrapped in a thin towel. Never apply a cold source directly to the skin. If you have cuts or scrapes as a result of your head injury, care for them as directed. For the next 24 hours (or longer, if instructed): oDon t drink alcohol or use sedatives or other medicines that make you sleepy. oDon t drive or operate machinery. oDon t do anything strenuous, such as heavy lifting or straining. oLimit tasks that require concentration. This includes reading, using a smartphone or computer, watching TV, and playing video games. oDon t return to sports or other activities that could result in another head injury. Follow-up care Follow up with your healthcare provider, or as directed. If imaging tests were done, they will be reviewed by a doctor. You will be told the results and any new findings that may affect your care. When to seek medical advice Call your healthcare provider right away if any of these occur: Pain doesn t get better or worsens New or increased swelling or bruising Fever of 100.4 F (38 C) or higher, or as directed by your provider Increased redness, warmth, drainage, or bleeding from the injured area Fluid drainage or bleeding from the nose or ears Any depression or bony abnormality in the injured area Persistent confusion or lethargy Bruising behind the ears or bruising around the eyes [id number] [facility]. [address] [place] [address]. All rights reserved. This information is not intended as a substitute for professional medical care. Always follow your healthcare professional's instructions. Follow Up Care 07/14/2024 01:33:56 With:PHYSICIAN, NOT RECORDED Address:Unknown When:2-4 days [facility] 07-14-2024 Note Discharge Instructions Thank you for allowing [facility] to assist you with your healthcare needs. The following is important discharge information regarding your hospital visit. Diagnosis from Today's Visit Head injury Neck sprain What to Do Next Instructions from Your Care Team No qualifying data available. Post Acute Orders No qualifying data available. You Need to Schedule the Following Appointments Follow Up with PHYSICIAN, NOT RECORDED When:Within 2-4 days Allergies NKA No Known Medication Allergies Medications Please ask your primary doctor or pharmacist before taking any other medication not listed, including over the counter drugs, herbal medications, vitamins and or supplements as they may interact with your home medications. Please take this list to your next doctor s visit. Bring all medications you take, including over the counter medications, herbals and other supplements with you to your doctor s visit. Patients and families are reminded to discard old lists and to update any records with all medication providers or retail pharmacies. Education Materials Neck Sprain or Strain A sudden force that causes turning or bending of the neck can cause sprain or strain. An example would be the force from a car accident. This can stretch or tear muscles called a strain. It can also stretch or tear ligaments called a sprain. Either of these can cause neck pain. Sometimes neck pain occurs after a simple awkward movement. In either case, muscle spasm is commonly present and contributes to the pain. Unless you had a forceful physical injury (for example, a car accident or fall), X-rays are often not ordered for the initial evaluation of neck pain. If pain continues and does not respond to medical treatment, X-rays and other tests may be done later. Home care You may feel more soreness and spasm the first few days after the injury. Rest until symptoms start to improve. When lying down, use a comfortable pillow or a rolled towel that supports the head and keeps the spine in a neutral position. The position of the head should not be tilted forward or backward. Apply an ice pack over the injured area for 15 to 20 minutes every 3 to 6 hours. Do this for the first 24 to 48 hours. You can make an ice pack by filling a plastic bag that seals at the top with ice cubes and then wrapping it with a thin towel. After 48 hours, apply heat (warm shower or warm bath) for 15 to 20 minutes several times a day, or alternate ice and heat. You may use ntlx-wwn-byfrxnv pain medicine to control pain, unless another pain medicine was prescribed. If you have chronic liver or kidney disease or ever had a stomach ulcer or gastrointestinal bleeding, talk with your healthcare provider before using these medicines. If a soft cervical collar was prescribed, only ear it for periods of increased pain. It should not be worn for more than 3 hours a day, or for longer than 1 to 2 weeks. Follow-up care Follow up with your healthcare provider, or as directed. Physical therapy may be needed. Sometimes fractures don t show up on the first X-ray. Bruises and sprains can sometimes hurt as much as a fracture. These injuries can take time to heal completely. If your symptoms don t improve or they get worse, talk with your healthcare provider. You may need a repeat X-ray or other tests. If X-rays were taken, you will be told of any new findings that may affect your care. Call 911 Call 911 if you have: Neck swelling, difficulty or painful swallowing Trouble breathing Chest pain When to seek medical advice Call your healthcare provider right away if any of these occur: Pain becomes worse or spreads into your arms or legs Weakness or numbness in one or both arms or legs [id number] [employer]. [address] [place] [address]. All rights reserved. This information is not intended as a substitute for professional medical care. Always follow your healthcare professional's instructions. Head Injury (Adult) You have a head injury. It does not appear serious at this time. But symptoms of a more serious problem, such as a mild brain injury (concussion) or bruising or bleeding in the brain, may appear later. For this reason, you or someone caring for you will need to watch for the symptoms listed below. Once you re home, also be sure to follow any care instructions you re given. Home care Watch for the following symptoms Seek emergency medical care if you have any of these symptoms over the next hours to days: Headache Nausea or vomiting Dizziness Sensitivity to light or noise Unusual sleepiness or grogginess Trouble falling asleep Personality changes Vision changes Memory loss Confusion Trouble walking or clumsiness Loss of consciousness (even for a short time) Inability to be awakened Stiff neck Weakness or numbness in any part of the body Seizures General care If you were prescribed medicines for pain, use them as directed. Note: Don t take other medicines for pain without talking to your provider first. To help reduce swelling and pain, apply a cold source to the injured area for up to 20 minutes at a time. Do this as often as directed. Use a cold pack or bag of ice wrapped in a thin towel. Never apply a cold source directly to the skin. If you have cuts or scrapes as a result of your head injury, care for them as directed. For the next 24 hours (or longer, if instructed): oDon t drink alcohol or use sedatives or other medicines that make you sleepy. oDon t drive or operate machinery. oDon t do anything strenuous, such as heavy lifting or straining. oLimit tasks that require concentration. This includes reading, using a smartphone or computer, watching TV, and playing video games. oDon t return to sports or other activities that could result in another head injury. Follow-up care Follow up with your healthcare provider, or as directed. If imaging tests were done, they will be reviewed by a doctor. You will be told the results and any new findings that may affect your care. When to seek medical advice Call your healthcare provider right away if any of these occur: Pain doesn t get better or worsens New or increased swelling or bruising Fever of 100.4 F (38 C) or higher, or as directed by your provider Increased redness, warmth, drainage, or bleeding from the injured area Fluid drainage or bleeding from the nose or ears Any depression or bony abnormality in the injured area Persistent confusion or lethargy Bruising behind the ears or bruising around the eyes [phone] [facility]. [address] [place] [address]. All rights reserved. This information is not intended as a substitute for professional medical care. Always follow your healthcare professional's instructions. Additional Information VACCINATE! IT SAVES LIVES! Members of the community who have not yet received the COVID-19 vaccine and would like to receive it can visit one of [facility] vaccine clinics. There are many vaccine clinic locations within the [facility]. For locations and available times, please visit [email or web address] [email or web address] It is important to note that some COVID mobile vaccine clinics are held outdoors and may be canceled in rainy or stormy conditions. To learn more about pediatric vaccinations (ages 5-11), we invite you to visit the [facility] webpage. [email or web address].[email or web address].org/p ages/2386-Vkbcv-Wnhwkakzxmb-Freq qcoewc-Bjbsm-[email or web address].[email or web address] To learn more about the COVID-19 vaccine, we invite you to visit the CDC website for a list of frequently asked questions. https://www.cdc.gov/coronavirus/ 2019-ncov/vaccines/faq.html [facility] Patient Portal Access Instructions: Stay connected with your healthcare team and access your personal medical information anytime with the [facility] Patient Portal. If you would like a full copy of your medical records please contact the [facility] Medical Records Department Monday through Monday between 8a.m. and 4:30p.m. Please follow the directions below to access the portal: 1.Access the email account you provided upon registration to the [facility].2.Look for an invitation email from [facility].3.Open the email and access the invitation link: Accept Invitation to [facility]4.Fill in the required blair to create your account. Sign into [email or web address] with your username and password that you created in the above steps to stay up to date. You can then view a summary of results, a summary of your visits, and the ability to download your summaries to your computer or send the information securely to a physician. Remember that your healthcare information is confidential, so carefully consider who you will allow to register on the [facility] Patient Portal for access to your information. You can also access the [facility] Patient Portal on the [facility] jelena. Simply click on Health Records under Health Data and then click on the [facility] logo. HOW TO SAFELY DISPOSE OF PRESCRIPTION MEDICATIONS Please use one of the following methods to safely dispose of your unused medications. 1.Use a drug disposal kit: the drug disposal pouch allows you to safely discard your old and unused drugs. Ask your nurse to give you one when you are discharged.2.Visit a local take-back location: Many local pharmacies and police departments have programs that collect old and unwanted prescription drugs. Call your local pharmacy or go to http://bit.Enviance/0O3Kx2w to find one close to you.3.Make use of household items: Use cat litter or old coffee grounds to dispose medications if other options are not available. Mix your drugs with these household products, seal them in an airtight container and throw it into the garbage. Call [facility]: [phone] to be sure your drugs can be disposed of in this way. Some medicines may require a different approach.4.Never flush your medications down the toilet. IF YOU HAVE BEEN PRESCRIBED AN OPIOIDS FOR PAIN If you have been prescribed an opioid (such as hydrocodone, oxycodone or morphine), it is critical to understand the possible side effects and risks of opioid pain medications. Even when taken as directed, opioids can have several side effects including: Tolerance, meaning you might need to take more of a medication for the same pain relief. Nausea, vomiting and/or constipation. Sleepiness, dizziness, dry mouth, confusion, depression or itching. Physical dependence, meaning you have withdrawal symptoms when a medication is stopped ? this can develop within a few days. KNOW YOUR RESPONSIBILITIES It is important to know exactly how much and how often to take the opioid pain medications you are prescribed. Never take opioids in higher amounts or more often than prescribed. Do not combine opioids with alcohol or other drugs that cause drowsiness, such as benzodiazepines, also known as benzos, including diazepam and alprazolam, muscle relaxants or sleep aids. Never sell or share prescription opioids. This is illegal. Store opioids in a secure place and out of reach of others (including children, family, friends and visitors). The last page(s) of this document has been signed and retained as a CHART COPY Signatures Patient Education Materials Neck Sprain or Strain Head Injury (Adult) Medication Leaflets My discharge plan and instructions have been reviewed and explained to me and I,ALEX ROJO understand my current condition and have read and understand these discharge instructions. I have received a written copy of the plan/instructions. If I have questions, I am aware that I should contact my doctor. Patient/Senior Quality Assurance Specialist Signature: Date/Time: Relationship to Patient: Witness Name/Signature: Date/Time: [facility] 07-14-2024 Note Exam Date Time Procedure Performing Provider Status 07/14/24 3:[address] Spine Cervical w/o Contrast LISA BAER MD; Auth (Verified) [id number] ORIGINAL EXAMINATION: CT OF THE CERVICAL SPINE WITHOUT CONTRAST 07/14/2024 3:20 am TECHNIQUE: CT of the cervical spine was performed without the administration of intravenous contrast. Multiplanar reformatted images are provided for review. Automated exposure control, iterative reconstruction, and/or weight based adjustment of the mA/kV was utilized to reduce the radiation dose to as low as reasonably achievable. COMPARISON: None. HISTORY: ORDERING SYSTEM PROVIDED HISTORY: Reason for Exam: INJURY FINDINGS: BONES/ALIGNMENT: There is no acute fracture or traumatic malalignment. DEGENERATIVE CHANGES: Moderate degenerative changes noted throughout the spine. SOFT TISSUES: There is no prevertebral soft tissue swelling. IMPRESSION: No acute abnormality of the cervical spine. Interpreted by: Lisa Baer MD Preliminary Report By: Lisa Baer MD Electronically signed By Lisa Baer MD Dictated Date: 07/14/2024 3:29:27 AM Prelim Date: 07/14/2024 3:34:31 AM Sign Date: 07/14/2024 3:34:31 AM Ordering Provider: [facility]12-29-2024 Note* Exam Date Time Procedure Performing Provider Status 07/14/24 3:[address] Head or Brain w/o Contrast LISA BAER MD; Auth (Verified) [id number] ORIGINAL EXAMINATION: CT OF THE HEAD WITHOUT CONTRAST 07/14/2024 3:17 am TECHNIQUE: CT of the head was performed without the administration of intravenous contrast. Automated exposure control, iterative reconstruction, and/or weight based adjustment of the mA/kV was utilized to reduce the radiation dose to as low as reasonably achievable. COMPARISON: None. HISTORY: ORDERING SYSTEM PROVIDED HISTORY: Reason for Exam: pt says he hit his head on a table last night. INJURY FINDINGS: BRAIN/VENTRICLES: There is no acute intracranial hemorrhage, mass effect or midline shift. No abnormal extra-axial fluid collection. The orozco-white differentiation is maintained without evidence of an acute infarct. There is no evidence of hydrocephalus. ORBITS: The visualized portion of the orbits demonstrate no acute abnormality. SINUSES: The visualized paranasal sinuses and mastoid air cells demonstrate no acute abnormality. SOFT TISSUES/SKULL: No acute abnormality of the visualized skull or soft tissues. IMPRESSION: No acute intracranial abnormality. Interpreted by: Lisa Baer MD Preliminary Report By: Lisa Baer MD Electronically signed By Lisa Baer MD Dictated Date: 07/14/2024 3:25:15 AM Prelim Date: 07/14/2024 3:29:19 AM Sign Date: 07/14/2024 3:29:19 AM Ordering Provider: WAQAS GARSIA [facility]12-28-2024 Hospital Discharge instructions Patient Education 07/13/2024 02:56:11 High Blood Sugar (Hyperglycemia) High Blood Sugar (Hyperglycemia) Too much sugar (glucose) in your blood is called high blood sugar (hyperglycemia). This can lead toa dangerous condition called ketoacidosis. In severe cases, it can lead to fluid loss (dehydration)and coma. Possible causes of high blood sugar Having a poor treatment plan for diabetes Being sick Being under stress Taking certain medicines, such as steroids Eating too much food, especially carbohydrates Being less active than normal Not taking enough diabetes medicine Symptoms of high blood sugar High blood sugar may not cause symptoms. If you do have symptoms, they may include: Thirst Frequent need to urinate Feeling tired or drowsy Nausea and vomiting Itchy, dry skin Blurry vision Fast breathing and breath that smells fruity Weakness Dizziness Wounds or skin infections that don t heal Unexplained weight loss if hyperglycemia lasts for more than a few days What to do Do the following: Check your blood sugar. Drink plenty of sugar-free, caffeine-free liquids such as water. Don t drink fruit juice. Check your blood sugar again every 4 hours. If you take insulin or diabetes medicines, follow your sick-day plan for taking medicine. Call your healthcare provider if you are not able to eat. Check your blood or urine for ketones as directed. Call your provider if your blood sugar and ketones don't go back to your target range. If the value is high, take your diabetes medicines as prescribed. And check your blood sugar more often. Doses of medicines such as insulin can be increased slightly if blood sugars stay high. But your provider must approve this. Preventing high blood sugar To help keep your blood sugar from getting too high: Control stress. When you're ill, follow your sick-day plan. Follow your meal plan. Eat only the amount of food on your meal plan. Stick to your exercise plan. Take your insulin or diabetes medicines as directed by your healthcare team. Also test your blood sugar as directed. If the plan is not working for you, discuss it with your healthcare provider. Other things to do Carry a medical ID card or a compact USB drive. Or wear a medical alert bracelet or necklace. It should say that you have diabetes. It should also say what to do in case you pass out or go into a coma. Make sure family, friends, and coworkers know the signs of high blood sugar. Tell them what to do if your blood sugar gets very high and you can t help yourself. Talk with your healthcare team about other things you can do to prevent high blood sugar. Special note: Drink plenty of sugar-free and caffeine-free liquids when you feel symptoms of hyperglycemia. Call your healthcare provider if you keep having episodes of high blood sugar. [id number] [facility]. [address] [place] [address]. All rights reserved. This information is not intended as a substitute for professional medical care. Always follow yourhealthcare professional's instructions. 07/13/2024 02:55:07 Leg Swelling in Both Legs Leg Swelling in Both Legs Swelling of the feet, ankles, and legs is called edema. It is caused by excess fluid that has collected in the tissues. Extra fluid in the body settles in the lowest part because of gravity. This is why the legs and feet are most affected. Some of the causes for edema include: Disease of the heart like congestive heart failure Standing or sitting for long periods of time Infection of the feet or legs Blood pooling in the veins of your legs (venous insufficiency) Dilated veins in your lower leg (varicose veins) Garters or other clothing that is tight on your legs. This will cause blood to pool in your legs because the clothing limits blood flow. Some medicines such as hormones like control pills, some blood pressure medicines like calcium channel blockers (amlodipine) and steroids, some antidepressants like MAO inhibitors and tricyclics Menstrual periods that cause you to retain fluids Many types of renal disease Liver failure or cirrhosis , some swelling is normal, but a sudden increase in leg swelling or weight gain can be a sign of a dangerous complication of Poor nutrition Thyroid disease Medical treatment will depend on what is causing the swelling in your legs. Your healthcare provider may prescribe water pills (diuretics) to get rid of the extra fluid. Home care Follow these guidelines when caring for yourself at home: Don't wear clothing like garters that is tight on your legs. Keep your legs up while lying or sitting. If infection, injury, or recent surgery is causing the swelling, stay off your legs as much as possible until symptoms get better. If your healthcare provider says that your leg swelling is caused by venous insufficiency or varicose veins, don't sit or machine stapler one place for long periods of time. Take breaks and walk about everyfew hours. Brisk walking is a good exercise. It helps circulate the blood that has collected in your leg. Talk with your provider about using support stockings to stop daytime leg swelling. If your provider says that heart disease is causing your leg swelling, follow a low-salt diet to stop extra fluid from staying in your body. You may also need medicine. Follow-up care Follow up with your healthcare provider, or as advised. When to seek medical advice Call your healthcare provider right away if any of these occur: New shortness of breath or chest pain Shortness of breath or chest pain that gets worse Swelling in both legs or ankles that gets worse Swelling of the abdomen Redness, warmth, or swelling in one leg Fever of 100.4 F (38 C) or higher, or as directed by your healthcare provider Yellow color to your skin or eyes Rapid, unexplained weight gain Having to sleep upright or use an increased number of pillows [phone] [facility]. [address] [place] [address]. All rights reserved. This information is not intended as a substitute for professional medical care. Always follow yourhealthcare professional's instructions. 07/13/2024 02:54:53 Anemia Anemia Anemia is a condition that occurs when your body does not have enough healthy red blood cells (RBCs). RBCs are the parts of your blood that carry oxygen throughout your body. A protein called hemoglobin allows your RBCs to absorb and release oxygen. Without enough RBCs or hemoglobin, your body doesn't get enough oxygen. Symptoms of anemia may then occur. What are the symptoms of anemia? Some people with anemia have no symptoms. But most people have symptoms that range from mild to severe. These can include: Tiredness (fatigue) Weakness Pale skin Shortness of breath Dizziness or fainting Rapid heartbeat Trouble doing normal amounts of activity Jaundice (yellowing of your eyes, skin, or mouth; dark urine) What causes anemia? Anemia can occur when your body: Loses too much blood Does not make enough RBCs Destroys your RBCs at a faster rate than it can replace them Does not make a normal amount of hemoglobin in your RBCs These problems can occur for many reasons, including: A condition that you are born with (congenital or inherited), such as sickle cell disease or thalassemia Heavy bleeding for any reason, including injury, surgery, childbirth, or even heavy menstrual periods Being low in certain nutrients, such as iron, folate, or vitamin B12, possibly from a poor diet or a condition like celiac disease or Crohn's disease Certain chronic conditions like diabetes, arthritis, or kidney disease Certain chronic infections like tuberculosis or HIV Exposure to certain medicines, such as those used for chemotherapy There are different types of anemia. Your healthcare provider can tell you more about the type of anemia you have and what may have caused it. How is anemia diagnosed? To diagnose anemia, your healthcare provider orders blood tests. These can include: Complete blood cell count (CBC). This test measures the amounts of the different types of blood cells. Blood smear. This test checks the size and shape of your blood cells. To do the test, a drop of your blood is viewed under a microscope. A stain is used to make the blood cells easier to see. Iron studies. These tests measure the amount of iron in your blood. Your body needs iron to make hemoglobin in your RBCs. Vitamin B12 and folate studies. These tests check for some of the components that help give RBCs a normal size and shape. Reticulocyte count. This test measures the amount of new RBCs that your bone marrow makes. Hemoglobin electrophoresis. This test checks for problems with your hemoglobin in RBCs. How is anemia treated? Treatment for anemia is based on the type of anemia, its cause, and the severity of your symptoms. Treatments may include: Diet changes. This involves increasing the amount of certain nutrients in your diet, such as iron, vitamin B12, or folate. Your healthcare provider may also prescribe nutrient supplements. Medicines. Certain medicines treat the cause of your anemia. Others help build new RBCs or relieve symptoms. If a medicine is the cause of your anemia, you may need to stop or change it. Blood transfusions. Replacing some of your blood can increase the number of healthy RBCs in your body. Surgery. In some cases, your doctor may do surgery to treat the underlying cause of anemia. If you need surgery, your healthcare provider will explain the procedure and outline the risks and benefitsfor you. What are the long-term concerns? If you have a certain type of anemia, you can expect a full recovery after treatment. If you have other types of anemia (especially a type you're born with), you will need to manage it for life. Yourdoctor can tell you more. [phone] [facility]. [address] [place] [address]. All rights reserved. This information is not intended as a substitute for professional medical care. Always follow yourhealthcare professional's instructions. 07/13/2024 02:54:44 Head Injury (Adult) Head Injury (Adult) You have a head injury. It does not appear serious at this time. But symptoms of a more serious problem, such as a mild brain injury (concussion) or bruising or bleeding in the brain, may appear later. For this reason, you or someone caring for you will need to watch for the symptoms listed below. Once you re home, also be sure to follow any care instructions you re given. Home care Watch for the following symptoms Seek emergency medical care if you have any of these symptoms over the next hours to days: Headache Nausea or vomiting Dizziness Sensitivity to light or noise Unusual sleepiness or grogginess Trouble falling asleep Personality changes Vision changes Memory loss Confusion Trouble walking or clumsiness Loss of consciousness (even for a short time) Inability to be awakened Stiff neck Weakness or numbness in any part of the body Seizures General care If you were prescribed medicines for pain, use them as directed. Note: Don t take other medicines for pain without talking to your provider first. To help reduce swelling and pain, apply a cold source to the injured area for up to 20 minutes at atime. Do this as often as directed. Use a cold pack or bag of ice wrapped in a thin towel. Never apply a cold source directly to the skin. If you have cuts or scrapes as a result of your head injury, care for them as directed. For the next 24 hours (or longer, if instructed): oDon t drink alcohol or use sedatives or other medicines that make you sleepy. oDon t drive or operate machinery. oDon t do anything strenuous, such as heavy lifting or straining. oLimit tasks that require concentration. This includes reading, using a smartphone or computer, watching TV, and playing video games. oDon t return to sports or other activities that could result in another head injury. Follow-up care Follow up with your healthcare provider, or as directed. If imaging tests were done, they will be reviewed by a doctor. You will be told the results and any new findings that may affect your care. When to seek medical advice Call your healthcare provider right away if any of these occur: Pain doesn t get better or worsens New or increased swelling or bruising Fever of 100.4 F (38 C) or higher, or as directed by your provider Increased redness, warmth, drainage, or bleeding from the injured area Fluid drainage or bleeding from the nose or ears Any depression or bony abnormality in the injured area Persistent confusion or lethargy Bruising behind the ears or bruising around the eyes [id number] [facility]. [address] [place] [address]. All rights reserved. This information is not intended as a substitute for professional medical care. Always follow yourhealthcare professional's instructions. 07/13/2024 02:54:29 Laceration, Face: Skin Glue Face Laceration: Skin Glue A laceration is a cut through the skin. A laceration on your face has been closed with skin glue. This is used on cuts that have smooth edges, and are not infected. Skin glue is best used on clean, straight cuts on face in areas that don't get a lot of tension. In some cases, a lower layer of skin may be sutured before skin glue is put on. The skin glue closes the cut within a few minutes. It also provides a water-resistant cover. No bandage is needed. Skin glue peels off on its own within 5 to10 days. Home care Your healthcare provider may prescribe an antibiotic. This is to help prevent infection. Follow allinstructions for taking this medicine. Take the medicine every day until it is gone or you are toldto stop. You should not have any left over. The healthcare provider may prescribe medicines for pain. Follow instructions for taking them. Follow the healthcare provider s instructions on how to care for the cut. Keep the wound clean and dry. You may shower or bathe as usual, but do not use soaps, lotions, or ointments on the wound area, as these may dissolve the glue. Don't scrub the wound. After bathing, pat the wound dry with a soft towel. Don't soak the cut in water. Don't scratch, rub, or pick at the film. Don't place tape directly over the film. Don't apply liquids such as peroxide, ointments, or creams to the wound while the film is in place. Most facial skin wounds heal without problems. But an infection sometimes occurs despite proper treatment. Watch for the signs of infection listed below. Keep the wound out of prolonged direct sunlight, especially in the summer months. Sunburn or sun exposure can increase scarring. Follow-up care Follow up with your healthcare provider, or as advised. If skin glue was used, the film will fall off by itself in 5 to10 days. When to seek medical advice Call your healthcare provider right away if any of these occur: Wound bleeds more than a small amount or bleeding doesn't stop Decreased movement around the injured area Signs of infection: oIncreasing pain in the wound oIncreasing wound redness or swelling oPus or bad odor coming from the wound oFever of 100.4 F (38. C) or as directed by your healthcare provider Wound edges reopen 6094-8524 [employer]. [address] [place] [address]. All rights reserved. This information is not intended as a substitute for professional medical care. Always follow yourhealthcare professional's instructions. 07/13/2024 02:54:18 Fall, Mechanical Mechanical Fall You have had a fall today. It appears that the cause is what is called mechanical. That means that you slipped, tripped, or lost your balance. If your fall had been because of fainting or a seizure, you might need other tests. It is normal to feel sore and tight in your muscles and back the next day, and not just the musclesyou injured at first. Remember, all the parts of your body are connected, so while initially one area hurts, the next day another may hurt. Also, when you injure yourself, it causes inflammation, which then causes the muscles to tighten up and hurt more. After the initial worsening, it should gradually improve over the next few days. Do report more severe pain. Even without a definite head injury, you can still get a concussion from your head suddenly jerkingforward, backward, or sideways when falling. Concussions and even bleeding can still happen, especially if you have had a recent injury or take blood thinner medicine. It is not unusual to have a mild headache and feel tired and even nauseous or dizzy. Home care Rest today and go back to your normal activities when you are feeling back to normal. If you were injured during the fall, follow the advice from your healthcare provider regarding careof your injury. At first, do not try to stretch out the sore spots. If there is a strain, stretching may make it worse. Massage may help relax the muscles without stretching them. You can use an ice pack or cold compress on and off to the sore spots 10 to 20 minutes at a time, as often as you feel comfortable. This may help reduce the inflammation, swelling and pain. If you have any scrapes or abrasions, they usually heal within 10 days. It is important to keep theabrasions clean while they initially start to heal. However, an infection may happen even with proper care, so watch for early signs of infection (such as warmth, redness, or swelling). Medicines Talk to your healthcare provider before taking new medicines, especially if you have other medical problems or are taking other medicines. If you need anything for pain, you can take acetaminophen or ibuprofen, unless you were given a different pain medicine to use. Talk with your healthcare provider before using these medicines if you have chronic liver or kidney disease, or ever had a stomach ulcer or gastrointestinal bleeding, or are taking blood thinner medicines. Be careful if you are given prescription pain medicines, narcotics, or medicine for muscle spasm. They can make you sleepy and dizzy, and can affect your coordination, reflexes, and judgment. Do not drive or do work where you can injure yourself when taking them. Fall prevention Fix, remove, or replace anything that caused your fall. Make your home safe by keeping walkways clear of objects you may trip over. Use nonslip pads under rugs. Don't use small area rugs or throw rugs. Don't walk in poorly lit areas. Don't stand on chairs or wobbly ladders. Use caution when reaching overhead or looking upward. This position can cause a loss of balance. Be sure your shoes fit properly, have nonslip bottoms and are in good condition. Be cautious when going up and down curbs, and walking on uneven sidewalks. If your balance is poor, consider using a cane or walker. Stay as active as you can. Balance, flexibility, strength, and endurance all come from exercise. They all play a role in preventing falls. If you have pets, know where they are before you stand up or walk so you don't trip over them. Limit alcohol intake. Alcohol can cause balance problems and increase the risk of falls. Use night lights. Have your eyes tested to be sure you are seeing well, even if you already wear glasses. Follow-up Follow up with your healthcare provider, or as advised. If X-rays or CT scans were done, you will be notified if there is a change in the reading, especially if it affects treatment. Call 911 Call 911 if any of these happen: Trouble breathing Confused or difficulty arousing Fainting or loss of consciousness Rapid or very slow heart rate Seizure Difficulty with speech or vision, weakness of an arm or leg Difficulty walking or talking, loss of balance, numbness or weakness in one side of your body, or facial droop When to seek medical advice Call your healthcare provider right away if any of these happen: Repeated mechanical falls, or unexplained falls Dizziness Severe headache Blood in vomit, stools (black or red color) 7665-7155 [facility]. [address] [place] [address]. All rights reserved. This information is not intended as a substitute for professional medical care. Always follow yourhealthcare professional's instructions. Follow Up Care 07/13/2024 01:10:54 With:Your physician Address:Unknown When:2-4 days Comments:Schedule appointment as soon as possibleReturn to ED if symptoms worsenWash the wounds that were not glued daily and apply bacitracinReturn for any signs of head injuryFollow-up for lab review and recheckElevate feet at rest and overnightFollow-up for any signs of infection With:NOT PHYSICIAN Address:Unknown When:2-4 days [facility] 12-28-2024 Note Discharge Instructions Thank you for allowing [facility] to assist you with your healthcare needs. The following is importantdischarge information regarding your hospital visit. What to Do Next Instructions from Your Care Team No qualifying data available. Post Acute Orders No qualifying data available. You Need to Schedule the Following Appointments Follow Up with Your physician When:Within 2-4 days Additional Information: Schedule appointment as soon as possible Return to ED if symptoms worsen Wash the wounds that were not glued daily and apply bacitracin Return for any signs of head injury Follow-up for lab review and recheck Elevate feet at rest and overnight Follow-up for any signs of infection Follow Up with NOT PHYSICIAN When:Within 2-4 days Allergies No Known Medication Allergies Medications Please ask your primary doctor or pharmacist before taking any other medication not listed, including over the counter drugs, herbal medications, vitamins and or supplements as they may interact withyour home medications. Please take this list to your next doctor s visit. Bring all medications you take, including over the counter medications, herbals and other supplements with you to your doctor s visit. Patients and families are reminded to discard old lists and to update any records with all medication providers or retail pharmacies. [employer] High Blood Sugar (Hyperglycemia) Too much sugar (glucose) in your blood is called high blood sugar (hyperglycemia). This can lead toa dangerous condition called ketoacidosis. In severe cases, it can lead to fluid loss (dehydration)and coma. Possible causes of high blood sugar Having a poor treatment plan for diabetes Being sick Being under stress Taking certain medicines, such as steroids Eating too much food, especially carbohydrates Being less active than normal Not taking enough diabetes medicine Symptoms of high blood sugar High blood sugar may not cause symptoms. If you do have symptoms, they may include: Thirst Frequent need to urinate Feeling tired or drowsy Nausea and vomiting Itchy, dry skin Blurry vision Fast breathing and breath that smells fruity Weakness Dizziness Wounds or skin infections that don t heal Unexplained weight loss if hyperglycemia lasts for more than a few days What to do Do the following: Check your blood sugar. Drink plenty of sugar-free, caffeine-free liquids such as water. Don t drink fruit juice. Check your blood sugar again every 4 hours. If you take insulin or diabetes medicines, follow your sick-day plan for taking medicine. Call your healthcare provider if you are not able to eat. Check your blood or urine for ketones as directed. Call your provider if your blood sugar and ketones don't go back to your target range. If the value is high, take your diabetes medicines as prescribed. And check your blood sugar more often. Doses of medicines such as insulin can be increased slightly if blood sugars stay high. But your provider must approve this. Preventing high blood sugar To help keep your blood sugar from getting too high: Control stress. When you're ill, follow your sick-day plan. Follow your meal plan. Eat only the amount of food on your meal plan. Stick to your exercise plan. Take your insulin or diabetes medicines as directed by your healthcare team. Also test your blood sugar as directed. If the plan is not working for you, discuss it with your healthcare provider. Other things to do Carry a medical ID card or a [employer] USB drive. Or wear a medical alert bracelet or necklace. It should say that you have diabetes. It should also say what to do in case you pass out or go into a coma. Make sure family, friends, and coworkers know the signs of high blood sugar. Tell them what to do if your blood sugar gets very high and you can t help yourself. Talk with your healthcare team about other things you can do to prevent high blood sugar. Special note: Drink plenty of sugar-free and caffeine-free liquids when you feel symptoms of hyperglycemia. Call your healthcare provider if you keep having episodes of high blood sugar. [id number] [facility]. [address] [place], [place] [id number]. All rights reserved. This information is not intended as a substitute for professional medical care. Always follow yourhealthcare professional's instructions. Leg Swelling in Both Legs Swelling of the feet, ankles, and legs is called edema. It is caused by excess fluid that has collected in the tissues. Extra fluid in the body settles in the lowest part because of gravity. This is why the legs and feet are most affected. Some of the causes for edema include: Disease of the heart like congestive heart failure Standing or sitting for long periods of time Infection of the feet or legs Blood pooling in the veins of your legs (venous insufficiency) Dilated veins in your lower leg (varicose veins) Garters or other clothing that is tight on your legs. This will cause blood to pool in your legs because the clothing limits blood flow. Some medicines such as hormones like control pills, some blood pressure medicines like calcium channel blockers (amlodipine) and steroids, some antidepressants like MAO inhibitors and tricyclics Menstrual periods that cause you to retain fluids Many types of renal disease Liver failure or cirrhosis , some swelling is normal, but a sudden increase in leg swelling or weight gain can be a sign of a dangerous complication of Poor nutrition Thyroid disease Medical treatment will depend on what is causing the swelling in your legs. Your healthcare provider may prescribe water pills (diuretics) to get rid of the extra fluid. Home care Follow these guidelines when caring for yourself at home: Don't wear clothing like garters that is tight on your legs. Keep your legs up while lying or sitting. If infection, injury, or recent surgery is causing the swelling, stay off your legs as much as possible until symptoms get better. If your healthcare provider says that your leg swelling is caused by venous insufficiency or varicose veins, don't sit or machine stapler one place for long periods of time. Take breaks and walk about everyfew hours. Brisk walking is a good exercise. It helps circulate the blood that has collected in your leg. Talk with your provider about using support stockings to stop daytime leg swelling. If your provider says that heart disease is causing your leg swelling, follow a low-salt diet to stop extra fluid from staying in your body. You may also need medicine. Follow-up care Follow up with your healthcare provider, or as advised. When to seek medical advice Call your healthcare provider right away if any of these occur: New shortness of breath or chest pain Shortness of breath or chest pain that gets worse Swelling in both legs or ankles that gets worse Swelling of the abdomen Redness, warmth, or swelling in one leg Fever of 100.4 F (38 C) or higher, or as directed by your healthcare provider Yellow color to your skin or eyes Rapid, unexplained weight gain Having to sleep upright or use an increased number of pillows [id number] [facility]. [address] [place] [address], [place] [address]. All rights reserved. This information is not intended as a substitute for professional medical care. Always follow yourhealthcare professional's instructions. Anemia Anemia is a condition that occurs when your body does not have enough healthy red blood cells (RBCs). RBCs are the parts of your blood that carry oxygen throughout your body. A protein called hemoglobin allows your RBCs to absorb and release oxygen. Without enough RBCs or hemoglobin, your body doesn't get enough oxygen. Symptoms of anemia may then occur. What are the symptoms of anemia? Some people with anemia have no symptoms. But most people have symptoms that range from mild to severe. These can include: Tiredness (fatigue) Weakness Pale skin Shortness of breath Dizziness or fainting Rapid heartbeat Trouble doing normal amounts of activity Jaundice (yellowing of your eyes, skin, or mouth; dark urine) What causes anemia? Anemia can occur when your body: Loses too much blood Does not make enough RBCs Destroys your RBCs at a faster rate than it can replace them Does not make a normal amount of hemoglobin in your RBCs These problems can occur for many reasons, including: A condition that you are born with (congenital or inherited), such as sickle cell disease or thalassemia Heavy bleeding for any reason, including injury, surgery, childbirth, or even heavy menstrual periods Being low in certain nutrients, such as iron, folate, or vitamin B12, possibly from a poor diet or a condition like celiac disease or Crohn's disease Certain chronic conditions like diabetes, arthritis, or kidney disease Certain chronic infections like tuberculosis or HIV Exposure to certain medicines, such as those used for chemotherapy There are different types of anemia. Your healthcare provider can tell you more about the type of anemia you have and what may have caused it. How is anemia diagnosed? To diagnose anemia, your healthcare provider orders blood tests. These can include: Complete blood cell count (CBC). This test measures the amounts of the different types of blood cells. Blood smear. This test checks the size and shape of your blood cells. To do the test, a drop of your blood is viewed under a microscope. A stain is used to make the blood cells easier to see. Iron studies. These tests measure the amount of iron in your blood. Your body needs iron to make hemoglobin in your RBCs. Vitamin B12 and folate studies. These tests check for some of the components that help give RBCs a normal size and shape. Reticulocyte count. This test measures the amount of new RBCs that your bone marrow makes. Hemoglobin electrophoresis. This test checks for problems with your hemoglobin in RBCs. How is anemia treated? Treatment for anemia is based on the type of anemia, its cause, and the severity of your symptoms. Treatments may include: Diet changes. This involves increasing the amount of certain nutrients in your diet, such as iron, vitamin B12, or folate. Your healthcare provider may also prescribe nutrient supplements. Medicines. Certain medicines treat the cause of your anemia. Others help build new RBCs or relieve symptoms. If a medicine is the cause of your anemia, you may need to stop or change it. Blood transfusions. Replacing some of your blood can increase the number of healthy RBCs in your body. Surgery. In some cases, your doctor may do surgery to treat the underlying cause of anemia. If you need surgery, your healthcare provider will explain the procedure and outline the risks and benefitsfor you. What are the long-term concerns? If you have a certain type of anemia, you can expect a full recovery after treatment. If you have other types of anemia (especially a type you're born with), you will need to manage it for life. Yourdoctor can tell you more. [id number] [facility]. [address] [place], [place] [id number]. All rights reserved. This information is not intended as a substitute for professional medical care. Always follow yourhealthcare professional's instructions. Head Injury (Adult) You have a head injury. It does not appear serious at this time. But symptoms of a more serious problem, such as a mild brain injury (concussion) or bruising or bleeding in the brain, may appear later. For this reason, you or someone caring for you will need to watch for the symptoms listed below. Once you re home, also be sure to follow any care instructions you re given. Home care Watch for the following symptoms Seek emergency medical care if you have any of these symptoms over the next hours to days: Headache Nausea or vomiting Dizziness Sensitivity to light or noise Unusual sleepiness or grogginess Trouble falling asleep Personality changes Vision changes Memory loss Confusion Trouble walking or clumsiness Loss of consciousness (even for a short time) Inability to be awakened Stiff neck Weakness or numbness in any part of the body Seizures General care If you were prescribed medicines for pain, use them as directed. Note: Don t take other medicines for pain without talking to your provider first. To help reduce swelling and pain, apply a cold source to the injured area for up to 20 minutes at atime. Do this as often as directed. Use a cold pack or bag of ice wrapped in a thin towel. Never apply a cold source directly to the skin. If you have cuts or scrapes as a result of your head injury, care for them as directed. For the next 24 hours (or longer, if instructed): oDon t drink alcohol or use sedatives or other medicines that make you sleepy. oDon t drive or operate machinery. oDon t do anything strenuous, such as heavy lifting or straining. oLimit tasks that require concentration. This includes reading, using a smartphone or computer, watching TV, and playing video games. oDon t return to sports or other activities that could result in another head injury. Follow-up care Follow up with your healthcare provider, or as directed. If imaging tests were done, they will be reviewed by a doctor. You will be told the results and any new findings that may affect your care. When to seek medical advice Call your healthcare provider right away if any of these occur: Pain doesn t get better or worsens New or increased swelling or bruising Fever of 100.4 F (38 C) or higher, or as directed by your provider Increased redness, warmth, drainage, or bleeding from the injured area Fluid drainage or bleeding from the nose or ears Any depression or bony abnormality in the injured area Persistent confusion or lethargy Bruising behind the ears or bruising around the eyes [phone] [facility]. [address] [place] [address]. All rights reserved. This information is not intended as a substitute for professional medical care. Always follow yourhealthcare professional's instructions. Face Laceration: Skin Glue A laceration is a cut through the skin. A laceration on your face has been closed with skin glue. This is used on cuts that have smooth edges, and are not infected. Skin glue is best used on clean, straight cuts on face in areas that don't get a lot of tension. In some cases, a lower layer of skin may be sutured before skin glue is put on. The skin glue closes the cut within a few minutes. It also provides a water-resistant cover. No bandage is needed. Skin glue peels off on its own within 5 to10 days. Home care Your healthcare provider may prescribe an antibiotic. This is to help prevent infection. Follow allinstructions for taking this medicine. Take the medicine every day until it is gone or you are toldto stop. You should not have any left over. The healthcare provider may prescribe medicines for pain. Follow instructions for taking them. Follow the healthcare provider s instructions on how to care for the cut. Keep the wound clean and dry. You may shower or bathe as usual, but do not use soaps, lotions, or ointments on the wound area, as these may dissolve the glue. Don't scrub the wound. After bathing, pat the wound dry with a soft towel. Don't soak the cut in water. Don't scratch, rub, or pick at the film. Don't place tape directly over the film. Don't apply liquids such as peroxide, ointments, or creams to the wound while the film is in place. Most facial skin wounds heal without problems. But an infection sometimes occurs despite proper treatment. Watch for the signs of infection listed below. Keep the wound out of prolonged direct sunlight, especially in the summer months. Sunburn or sun exposure can increase scarring. Follow-up care Follow up with your healthcare provider, or as advised. If skin glue was used, the film will fall off by itself in 5 to10 days. When to seek medical advice Call your healthcare provider right away if any of these occur: Wound bleeds more than a small amount or bleeding doesn't stop Decreased movement around the injured area Signs of infection: oIncreasing pain in the wound oIncreasing wound redness or swelling oPus or bad odor coming from the wound oFever of 100.4 F (38. C) or as directed by your healthcare provider Wound edges reopen [phone] [facility]. [address] [place], [place] [id number]. All rights reserved. This information is not intended as a substitute for professional medical care. Always follow yourhealthcare professional's instructions. Mechanical Fall You have had a fall today. It appears that the cause is what is called mechanical. That means that you slipped, tripped, or lost your balance. If your fall had been because of fainting or a seizure, you might need other tests. It is normal to feel sore and tight in your muscles and back the next day, and not just the musclesyou injured at first. Remember, all the parts of your body are connected, so while initially one area hurts, the next day another may hurt. Also, when you injure yourself, it causes inflammation, which then causes the muscles to tighten up and hurt more. After the initial worsening, it should gradually improve over the next few days. Do report more severe pain. Even without a definite head injury, you can still get a concussion from your head suddenly jerkingforward, backward, or sideways when falling. Concussions and even bleeding can still happen, especially if you have had a recent injury or take blood thinner medicine. It is not unusual to have a mild headache and feel tired and even nauseous or dizzy. Home care Rest today and go back to your normal activities when you are feeling back to normal. If you were injured during the fall, follow the advice from your healthcare provider regarding careof your injury. At first, do not try to stretch out the sore spots. If there is a strain, stretching may make it worse. Massage may help relax the muscles without stretching them. You can use an ice pack or cold compress on and off to the sore spots 10 to 20 minutes at a time, as often as you feel comfortable. This may help reduce the inflammation, swelling and pain. If you have any scrapes or abrasions, they usually heal within 10 days. It is important to keep theabrasions clean while they initially start to heal. However, an infection may happen even with proper care, so watch for early signs of infection (such as warmth, redness, or swelling). Medicines Talk to your healthcare provider before taking new medicines, especially if you have other medical problems or are taking other medicines. If you need anything for pain, you can take acetaminophen or ibuprofen, unless you were given a different pain medicine to use. Talk with your healthcare provider before using these medicines if you have chronic liver or kidney disease, or ever had a stomach ulcer or gastrointestinal bleeding, or are taking blood thinner medicines. Be careful if you are given prescription pain medicines, narcotics, or medicine for muscle spasm. They can make you sleepy and dizzy, and can affect your coordination, reflexes, and judgment. Do not drive or do work where you can injure yourself when taking them. Fall prevention Fix, remove, or replace anything that caused your fall. Make your home safe by keeping walkways clear of objects you may trip over. Use nonslip pads under rugs. Don't use small area rugs or throw rugs. Don't walk in poorly lit areas. Don't stand on chairs or wobbly ladders. Use caution when reaching overhead or looking upward. This position can cause a loss of balance. Be sure your shoes fit properly, have nonslip bottoms and are in good condition. Be cautious when going up and down curbs, and walking on uneven sidewalks. If your balance is poor, consider using a cane or walker. Stay as active as you can. Balance, flexibility, strength, and endurance all come from exercise. They all play a role in preventing falls. If you have pets, know where they are before you stand up or walk so you don't trip over them. Limit alcohol intake. Alcohol can cause balance problems and increase the risk of falls. Use night lights. Have your eyes tested to be sure you are seeing well, even if you already wear glasses. Follow-up Follow up with your healthcare provider, or as advised. If X-rays or CT scans were done, you will be notified if there is a change in the reading, especially if it affects treatment. Call 911 Call 911 if any of these happen: Trouble breathing Confused or difficulty arousing Fainting or loss of consciousness Rapid or very slow heart rate Seizure Difficulty with speech or vision, weakness of an arm or leg Difficulty walking or talking, loss of balance, numbness or weakness in one side of your body, or facial droop When to seek medical advice Call your healthcare provider right away if any of these happen: Repeated mechanical falls, or unexplained falls Dizziness Severe headache Blood in vomit, stools (black or red color) [id number] [employer] [facility]. [address] [place] [address]. All rights reserved. This information is not intended as a substitute for professional medical care. Always follow yourhealthcare professional's instructions. Additional Information VACCINATE! IT SAVES LIVES! Members of the community who have not yet received the COVID-19 vaccine and would like to receive it can visit one of [facility] vaccine clinics. There are many vaccine clinic locations within the [facility]. For locations and available times, please visit www.gettheshot.coronavirus.[place].gov/. It is important to note that some COVID mobile vaccine clinics are held outdoors and may be canceled in rainy or stormy conditions. To learn more about pediatric vaccinations (ages 5-11), we invite you to visit the [facility] webpage. https://www.[email or web address].org/pages/0489-Xsbgu-Suqukaqhhxf-Qvofulfjyg-Ppigl-Gcu stions.htmlTo learn more about the COVID-19 vaccine, we invite you to visit the CDC website for a list of frequently asked questions. https://www.cdc.gov/coronavirus/2019-ncov/vaccines/faq.html [facility] Patient Portal Access Instructions: Stay connected with your healthcare team and access your personal medical information anytime with the [facility] Patient Portal. If you would like a full copy of your medical records please contact the [facility] Medical Records Department Monday through Monday between 8a.m. and 4:30p.m. Please follow the directions below to access the portal: 1.Access the email account you provided upon registration to the [facility].2.Look for an invitation email from [facility].3.Open the email and access the invitation link: Accept Invitation to [facility]4.Fill in the required blair to create your account. Sign into [email or web address] with your username and password that you created in the above steps to stay up to date. You can then view a summary of results, a summary of your visits, and the ability to download your summaries to your computer or send the information securely to a physician. Remember that your healthcare information is confidential, so carefully consider who you will allow to register on the [facility] Patient Portal for access to your information. You can also access the [facility] Patient Portal on the [facility] jelena. Simply click on Health Records under [place] and then click on the [email or web address] logo. HOW TO SAFELY DISPOSE OF PRESCRIPTION MEDICATIONS Please use one of the following methods to safely dispose of your unused medications. 1.Use a drug disposal kit: the drug disposal pouch allows you to safely discard your old and unuseddrugs. Ask your nurse to give you one when you are discharged.2.Visit a local take-back location: Many local pharmacies and police departments have programs that collect old and unwanted prescriptiondrugs. Call your local pharmacy or go to http://bit.Enviance/6L4Ji3o to find one close to you.3.Make use of household items: Use cat litter or old coffee grounds to dispose medications if other options arenot available. Mix your drugs with these household products, seal them in an airtight container andthrow it into the garbage. Call [facility]: [phone] to be sure your drugs can be disposed of in this way. Some medicines may require a different approach.4.Never flush your medications down the toilet. IF YOU HAVE BEEN PRESCRIBED AN OPIOIDS FOR PAIN If you have been prescribed an opioid (such as hydrocodone, oxycodone or morphine), it is critical to understand the possible side effects and risks of opioid pain medications. Even when taken as directed, opioids can have several side effects including: Tolerance, meaning you might need to take more of a medication for the same pain relief. Nausea, vomiting and/or constipation. Sleepiness, dizziness, dry mouth, confusion, depression or itching. Physical dependence, meaning you have withdrawal symptoms when a medication is stopped ? this can develop within a few days. KNOW YOUR RESPONSIBILITIES It is important to know exactly how much and how often to take the opioid pain medications you are prescribed. Never take opioids in higher amounts or more often than prescribed. Do not combine opioids with alcohol or other drugs that cause drowsiness, such as benzodiazepines, also known as benzos,including diazepam and alprazolam, muscle relaxants or sleep aids. Never sell or share prescriptionopioids. This is illegal. Store opioids in a secure place and out of reach of others (including children, family, friends and visitors). The last page(s) of this document has been signed and retained as a CHART COPY Signatures Patient Education Materials High Blood Sugar (Hyperglycemia) Leg Swelling in Both Legs Anemia Head Injury (Adult) Laceration, Face: Skin Glue Fall, Mechanical Medication Leaflets My discharge plan and instructions have been reviewed and explained to me and I,ALEX ROJOd my current condition and have read and understand these discharge instructions. I have received a written copy of the plan/instructions. If I have questions, I am aware that I should contact my doctor. 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 FALL SCREENING: Has the patient had 2 falls in the last year or 1 fall with injury or currently using an Ambulatory Assistive Device (Walker, Cane, Wheelchair, Crutches, etc.)? No PATIENT GENDER DATA: Male PATIENT RELEVANT IMPLANT DATA REVIEWED: Not Applicable PATIENT PRESENTS WITH AN IMPLANTABLE OR ATTACHED OPTICAL SALES ASSOCIATE: No RADIOLOGY DEPARTMENT: Ultrasound PERIPHERAL IV DATA: Not applicable SIGNED BY: Trice Alfaro RDMS April 09, 2024 9:16 AM documented in this encounterSelect [facility] NoteHNO ID: [id number] Author: TRICE ALFARO RDMS Service: ? 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 FALL SCREENING: Has the patient had 2 falls in the last year or 1 fall with injury or currently using an Ambulatory Assistive Device (Walker, Cane, Wheelchair, Crutches, etc.)? No PATIENT GENDER DATA: Male PATIENT RELEVANT IMPLANT DATA REVIEWED: Not Applicable PATIENT PRESENTS WITH AN IMPLANTABLE OR ATTACHED OPTICAL SALES ASSOCIATE: No RADIOLOGY DEPARTMENT: Ultrasound PERIPHERAL IV DATA: Not applicable SIGNED BY: Trice Alfaro RDMS April 09, 2024 9:16 [facility]07-16-2024 NoteHNO ID: [id number] Author: BARRINGTON TRAORE MD Service: ? Author Type: Physician Type: Progress Notes Filed: 01/30/2024 15:30 Note Text: DEPARTMENT OF GASTROENTEROLOGY AND HEPATOLOGY - FOLLOW UP VISIT HISTORY OF PRESENT ILLNESS Alex Rojo is a 48 year old male who presents today for follow up of alcoholic liver disease. Last clinic visit: Aug 2023 Assessment/Plan from prior visit: Mr. Rojo is a 48 year old year old male who presents with history of decompensated liver cirrhosis. 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 Based on the history, his liver function may have well improved (ETOH cessation) to the point that he may not need to be re-listed for OLT at the present time. Will get liver imaging and blood tests and see him in follow up and to continue assessment of his need for transplantation. Plan is to follow up in three months. Since the last visit: No new medical issues Current Outpatient Medications Medication Sig Dispense Refill QUEtiapine (SEROQUEL) 50 mg tablet Take 100 mg by mouth daily at bedtime. melatonin 1 mg chew Take 1 tablet by mouth daily at bedtime. ARIPiprazole (ABILIFY) 2 mg tablet Take 5 mg by mouth once daily. 5 mg thiamine (VITAMIN B1) 100 mg tablet Take 200 mg by mouth twice daily. folic acid 1 mg tablet Take 1 mg by mouth once daily. lactulose (DUPHALAC, CONSTULOSE) 20 gram/30 mL solution Take 60 mL by mouth four times daily. furosemide (LASIX) 40 mg tablet Take 40 mg by mouth once daily. rifAXIMin (XIFAXAN) 550 mg tablet Take 550 mg by mouth twice daily. spironolactone (ALDACTONE) 50 mg tablet Take 25 mg by mouth once daily. sertraline (ZOLOFT) 50 mg tablet Take 200 mg by mouth once daily. hydrOXYzine pamoate (VISTARIL) 50 mg capsule Ones a day (Patient not taking: Reported on 01/30/2024) promethazine (PHENERGAN) 25 mg tablet (Patient not taking: Reported on 01/30/2024) nadolol (CORGARD) 20 mg tablet (Patient not taking: Reported on 01/30/2024) cyanocobalamin, vitamin B-12, 1,000 mcg cap Take 1,000 mcg by mouth once daily. (Patient not taking: Reported on 08/29/2023) pantoprazole (PROTONIX) 40 mg tablet Take 40 mg by mouth once daily. (Patient not taking: Reported on 01/30/2024) traZODone (DESYREL) 50 mg tablet Take 50 mg by mouth daily at bedtime. May take 1/2 to 1 tablet nightly as needed. (Patient not taking: Reported on 01/30/2024) doxepin capsule 10 mg Take 10 mg by mouth daily at bedtime. (Patient not taking: Reported on 01/30/2024) No current facility-administered medications for this visit. ALLERGIES Allergen Reactions Pioglitazone Unknown PAST MEDICAL HISTORY No past medical history on file. PHYSICAL EXAMINATION BP 134/87[Pt denies h/a, nausea, dizziness. No distress noted. Dr notified.[ Pulse 73 Temp (Src) 98.1 (Temporal) Ht 5' 9 (1.75m) Wt 181 lb 3.5 oz (82.2kg) SpO2 98% BMI 26.75 kg/(m2). General Appearance: Well appearing, alert, in no acute distress, well-hydrated, well nourished. Eyes: PERRLA, conjunctiva and sclera normal Oropharynx: Lips, tongue, and oral mucosa normal. Lungs:breath sounds clear to auscultation bilaterally, no crackles, rhonchi, or wheezes Heart: regular rate and rhythm, no murmurs or gallops. Abdomen: not distended, normal bowel sounds, soft and depressible, no guarding or rebound, no palpable mass, no organomegaly Extremities: no cyanosis or edema Skin: no jaundice, no spider angiomas, no palmar erythema Neuro:alert, oriented x 3, pleasant and in no acute distress LABS Latest Ref Rng AND Units 12/05/2022 09/17/2022 09/16/2022 CBC WBC 3.70 - 11.00 k/uL 4.32 8.95 6.42 RBC 4.20 - 6.00 m/uL 3.07 2.73 2.87 Hemoglobin 13.0 - 17.0 g/dL 10.4 10.3 10.7 Hematocrit 39.0 - 51.0 % 32.1 31.0 30.9 MCV 80.0 - 100.0 fL 104.6 113.6 107.7 MCH 26.0 - 34.0 pg 33.9 37.7 37.3 MCHC 30.5 - 36.0 g/dL 32.4 33.2 34.6 RDW-CV 11.5 - 15.0 % 17.3 14.8 14.2 Platelet Count 150 - 400 k/uL 75 91 100 MPV 9.0 - 12.7 fL 10.0 10.4 9.8 Latest Ref Rng AND Units 12/05/2022 09/17/2022 09/16/2022 CMP Sodium 136 - 144 mmol/L 140 139 136 Potassium 3.7 - 5.1 mmol/L 4.2 4.7 4.6 Chloride 97 - 105 mmol/L 109 106 105 CO2 22 - 30 mmol/L 22 21 24 Glucose 74 - 99 mg/dL 105 177 162 BUN 9 - 24 mg/dL 12 28 18 Creatinine 0.73 - 1.22 mg/dL 0.72 0.89 0.68 EGFR >=60 mL/min/1.73m? 113 106 115 Protein, Total 6.3 - 8.0 g/dL 5.7 Albumin 3.9 - 4.9 g/dL 2.8 Calcium 8.5 - 10.2 mg/dL 8.5 8.1 8.4 Bilirubin, Total 0.2 - 1.3 mg/dL 2.7 AST 14 - 40 U/L 55 ALT 10 - 54 U/L 22 Alkaline Phosphatase 38 - 113 U/L 258 CT (September 2023): Cirrhotic liver morphology with multiple sequelae of portal hypertension including a recanalized umbilical vein, upper abdominal varices and mild splenomegaly. There is no abdominal ascites. The portal veins are patent. 2. No liver mass identified. 3. New mild to moderate superior endplate compression deformity at L2 compare (more content not included)...[facility]07-16-2024 History of Present illness Narrative* Barrington Traore MD - 01/30/2024 3:09 PM EDT Images from the original note were not included. DEPARTMENT OF GASTROENTEROLOGY & HEPATOLOGY - FOLLOW UP VISIT HISTORY OF PRESENT ILLNESS Alex Rojo is a 48 year old male who presents today for follow up of alcoholic liver disease. Last clinic visit: Aug 2023 Assessment/Plan from prior visit: Mr. Rojo is a 48 year old year old male who presents with history of decompensated liver cirrhosis. 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 Based on the history, his liver function may have well improved (ETOH cessation) to the point that he may not need to be re-listed for OLT at the present time. Will get liver imaging and blood tests and see him in follow up and to continue assessment of his need for transplantation. Plan is to follow up in three months. Since the last visit: No new medical issues Current Outpatient Medications Medication Sig Dispense Refill QUEtiapine (SEROQUEL) 50 mg tablet Take 100 mg by mouth daily at bedtime. melatonin 1 mg chew Take 1 tablet by mouth daily at bedtime. ARIPiprazole (ABILIFY) 2 mg tablet Take 5 mg by mouth once daily. 5 mg thiamine (VITAMIN B1) 100 mg tablet Take 200 mg by mouth twice daily. folic acid 1 mg tablet Take 1 mg by mouth once daily. lactulose (DUPHALAC, CONSTULOSE) 20 gram/30 mL solution Take 60 mL by mouth four times daily. furosemide (LASIX) 40 mg tablet Take 40 mg by mouth once daily. rifAXIMin (XIFAXAN) 550 mg tablet Take 550 mg by mouth twice daily. spironolactone (ALDACTONE) 50 mg tablet Take 25 mg by mouth once daily. sertraline (ZOLOFT) 50 mg tablet Take 200 mg by mouth once daily. hydrOXYzine pamoate (VISTARIL) 50 mg capsule Ones a day (Patient not taking: Reported on 01/30/2024) promethazine (PHENERGAN) 25 mg tablet (Patient not taking: Reported on 01/30/2024) nadolol (CORGARD) 20 mg tablet (Patient not taking: Reported on 01/30/2024) cyanocobalamin, vitamin B-12, 1,000 mcg cap Take 1,000 mcg by mouth once daily. (Patient not taking: Reported on 08/29/2023) pantoprazole DR (PROTONIX) 40 mg tablet Take 40 mg by mouth once daily. (Patient not taking: Reported on 01/30/2024) traZODone (DESYREL) 50 mg tablet Take 50 mg by mouth daily at bedtime. May take 1/2 to 1 tablet nightly as needed. (Patient not taking: Reported on 01/30/2024) doxepin capsule 10 mg Take 10 mg by mouth daily at bedtime. (Patient not taking: Reported on 01/30/2024) No current facility-administered medications for this visit. ALLERGIES Allergen Reactions Pioglitazone Unknown PAST MEDICAL HISTORY No past medical history on file. PHYSICAL EXAMINATION BP 134/87[Pt denies h/a, nausea, dizziness. No distress noted. Dr notified.[ Pulse 73 Temp (Src) 98.1 (Temporal) Ht 5' 9 (1.75m) Wt 181 lb 3.5 oz (82.2kg) SpO2 98% BMI 26.75 kg/(m^2). General Appearance: Well appearing, alert, in no acute distress, well-hydrated, well nourished. Eyes: PERRLA, conjunctiva and sclera normal Oropharynx: Lips, tongue, and oral mucosa normal. Lungs:breath sounds clear to auscultation bilaterally, no crackles, rhonchi, or wheezes Heart: regular rate and rhythm, no murmurs or gallops. Abdomen: not distended, normal bowel sounds, soft and depressible, no guarding or rebound, no palpable mass, no organomegaly Extremities: no cyanosis or edema Skin: no jaundice, no spider angiomas, no palmar erythema Neuro:alert, oriented x 3, pleasant and in no acute distress LABS Latest Ref Rng & Units 12/05/2022 09/17/2022 09/16/2022 CBC WBC 3.70 - 11.00 k/uL 4.32 8.95 6.42 RBC 4.20 - 6.00 m/uL 3.07 2.73 2.87 Hemoglobin 13.0 - 17.0 g/dL 10.4 10.3 10.7 Hematocrit 39.0 - 51.0 % 32.1 31.0 30.9 MCV 80.0 - 100.0 fL 104.6 113.6 107.7 MCH 26.0 - 34.0 pg 33.9 37.7 37.3 MCHC 30.5 - 36.0 g/dL 32.4 33.2 34.6 RDW-CV 11.5 - 15.0 % 17.3 14.8 14.2 Platelet Count 150 - 400 k/uL 75 91 100 MPV 9.0 - 12.7 fL 10.0 10.4 9.8 Latest Ref Rng & Units 12/05/2022 09/17/2022 09/16/2022 CMP Sodium 136 - 144 mmol/L 140 139 136 Potassium 3.7 - 5.1 mmol/L 4.2 4.7 4.6 Chloride 97 - 105 mmol/L 109 106 105 CO2 22 - 30 mmol/L 22 21 24 Glucose 74 - 99 mg/dL 105 177 162 BUN 9 - 24 mg/dL 12 28 18 Creatinine 0.73 - 1.22 mg/dL 0.72 0.89 0.68 EGFR >=60 mL/min/1.73m 113 106 115 Protein, Total 6.3 - 8.0 g/dL 5.7 Albumin 3.9 - 4.9 g/dL 2.8 Calcium 8.5 - 10.2 mg/dL 8.5 8.1 8.4 Bilirubin, Total 0.2 - 1.3 mg/dL 2.7 AST 14 - 40 U/L 55 ALT 10 - 54 U/L 22 Alkaline Phosphatase 38 - 113 U/L 258 CT (September 2023): Cirrhotic liver morphology with multiple sequelae of portal hypertension including a recanalized umbilical vein, upper abdominal varices and mild splenomegaly. There is no abdominal ascites. The portal veins are patent. 2. No liver mass identified. 3. New mild to moderate superior endplate compression deformity at L2 compared to the previous CT performed in November 2019. EGD (September 2023): - Grade I esophageal varices. - Portal hypertensive gastropathy. - Normal examined duodenum. - No specimens collected. ASSESSMENT/PLAN Mr. Rojo is a 48 year old year old male, a resident of long-term facility for mental illness, who presents for follow up of decompensated cirrhosis although clinically he seem to have very good recovery. No recent liver function or imaging: Labs and US now FU in 6 months Needs EGD around September 2024. Plan is to follow up in three months. Barrington Traore MD January 30, 2024 3:10 PM documented in this encounterSelect [facility] [place]06-[facility] NoteHNO ID: [id number] Author: PITER GAINES JR, MD Service: ? Author Type: Physician Type: Progress Notes Filed: 01/01/2024 11:58 Note Text: NEW PATIENT (CONSULT) HISTORY AND PHYSICAL EXAM PRIMARY CARE PHYSICIAN: Katia Lan MD REASON FOR CONSULT: Hx seizure REFERRING PHYSICIAN: No ref. provider found CHIEF COMPLAINT: Im not sure why Im here Consultation requested by No ref. provider found for an opinion regarding chief complaint of Patient presents with: New Patient: Pt presented with transportation from [place], reported ER visit [facility] for Hepatic concerns. and my final recommendations will be communicated back to the requesting physician by way of shared medical record or letter via US mail. HISTORY OF PRESENT ILLNESS: Alex Rojo is a 48 year old male, BMI 25.37 kg/m2 with a PMH significant for ETOH cirrhosis with hepatic encephalopathy, DM, thrombocytopenia, and prior ETOH dependence. Reportedly without ETOH use in almost years. Also reports multiple ortho surgeries associated with physical traumas including being stepped on by a bull. Patient limited historian. Records reviewed, and pt states he has limited memory of prior medical events. OSH CT brain and C spine on 07/27/23 showed per report no acute processes; MRI T spine showed compression fx at T9, and MRI L spine showed mild L2 compression fx. Pt states was seen in ER in 06/2022 in [place], [place] and was told to see a neurologist. It is unclear as to why patient was advised to see neurologist nor whether patient did see neurologist prior to today -- all med records not available for review. Question if pt may have had seizure, but do not know when and whether associated with ETOH/ETOH w/d or metabolic derangement including hyperammonemia. Spent well over 30 minutes reviewing the medical records prior to event and could not find a specific event in which there was documentation of seizure activity or concern for seizure by those evaluating patient. Patient then states he had a seizure in 06/2022. I reviewed records and per ER note of 06/2022: Why are you here today? - I don't know. Patient was brought to the ED from [place], they felt his condition was medical related and wasn't appropriate for there psych unit, he arrived on a m-1 hold, patient has cirrhosis of the liver stage four, and is on transport list, history of seizures, long history of alcohol abuse. History of underlying end-stage alcoholic liver disease with history of encephalopathy. Initial Clinical Presentation: - Patient was not alert or oriented during the evaluation. He didn't know where he was, how he got here, he didn't know what year it was, he did know his name and the name of his . Patient presented highly confused, he could not answer questions with any intelligible response. He had a blank stare, he appeared to want to sleep, was unable to engage with card writer hand. Nursing reports he has been wandering but redirectable. He does deny SI and HI with card writer hand. Unclear if he is having hallucinations. He does not present manic. His mental status does appear related to a medical condition rather than a psychiatric condition, based on presentation, current medical history, no past psychiatric history. He is not appropriate for inpatient psychiatric care at this time. No aggressive behaviors noted during this episode of care. Collateral #1 Phone and Info: - Contacted patient's mother Janine [phone] for collateral information. She reports that patient moved in with her and his father a couple of weeks ago. Patient was living with his and kid in [place]. Moved to [place] because he is on a liver transplant list and will be getting one soon through [facility]. Reports patient has a long history of alcohol abuse, has severe cirhosis of the liver. Reports patient has not been very functional since the medical issues, that he has been confused and erratic. She reports he has been walking around naked, showering with his clothes on, can't tie his shoes, can't put his clothes on, that he gets aggressive sometime when he is confused. She brought him to [facility] today because she cannot take care of him anymore and because he has been getting aggressive and she doesn't feel safe around him. She reports patient doesn't have a psychiatric history, that before the medical issues patient was a high functioning adult that had a job. No history of psychosis in the family. Contacted [facility] and spoke with intake rehabilitation case coordinator Marquise. She reports patient was brought to their facility for a walk in crisis assessment. That they initially admitted him for psychosis but then it became clear that patient's presentation was not due to a psychiatric disorder but was rather medical. That patient was highly confused, his eyes and face were yellow, that he was wandering. They spoke with his mother and patient has (more content not included)...[facility]06-17-2024 History of Present illness Narrative* Piter Gaines Jr., MD - 01/01/2024 11:17 AM EDT NEW PATIENT (CONSULT) HISTORY AND PHYSICAL EXAM PRIMARY CARE PHYSICIAN: Katia Lan MD REASON FOR CONSULT: Hx seizure REFERRING PHYSICIAN: No ref. provider found CHIEF COMPLAINT: Im not sure why Im here Consultation requested by No ref. provider found for an opinion regarding chief complaint of Patient presents with: New Patient: Pt presented with transportation from [place], reported ER visit [facility] for Hepatic concerns. and my final recommendations will be communicated back to the requesting physician by way of sharedmedical record or letter via US mail. HISTORY OF PRESENT ILLNESS: Alex Rojo is a 48 year old male, BMI 25.37 kg/m2 with a PMH significant for ETOH cirrhosis with hepatic encephalopathy, DM, thrombocytopenia, and prior ETOH dependence. Reportedly without ETOH use in almost years. Also reports multiple ortho surgeries associated with physical traumas including being stepped on by a bull. Patient limited historian. Records reviewed, and pt states he has limited memory of prior medical events. OSH CT brain and C spine on 07/27/23 showed per report no acute processes; MRI T spine showed compression fx at T9, and MRI L spine showed mild L2 compression fx. Pt states was seen in ER in 06/2022 in [place], [place] and was told to see a neurologist. It is unclear as to why patient was advised to see neurologist nor whether patient did see neurologist priorto today -- all med records not available for review. Question if pt may have had seizure, but do not know when and whether associated with ETOH/ETOH w/d or metabolic derangement including hyperammonemia. Spent well over 30 minutes reviewing the medical records prior to event and could not find a specific event in which there was documentation of seizure activity or concern for seizure by those evaluating patient. Patient then states he had a seizure in 06/2022. I reviewed records and per ER note of06/2022: Why are you here today? - I don't know. Patient was brought to the ED from [facility], theyfelt his condition was medical related and wasn't appropriate for there psych unit, he arrived on am-1 hold, patient has cirrhosis of the liver stage four, and is on transport list, history of seizures, long history of alcohol abuse. History of underlying end-stage alcoholic liver disease with history of encephalopathy. Initial Clinical Presentation: - Patient was not alert or oriented during the evaluation. He didn'tknow where he was, how he got here, he didn't know what year it was, he did know his name and the name of his . Patient presented highly confused, he could not answer questions with any intelligible response. He had a blank stare, he appeared to want to sleep, was unable to engage with card writer hand. Nursing reports he has been wandering but redirectable. He does deny SI and HI with card writer hand. Unclear if he is having hallucinations. He does not present manic. His mental status does appear related to a medical condition rather than a psychiatric condition, based on presentation, current medical history, no past psychiatric history. He is not appropriate for inpatient psychiatric care at this time.No aggressive behaviors noted during this episode of care. Collateral #1 Phone and Info: - Contacted patient's mother Janine [phone] for collateral information. She reports that patient moved in with her and his father a couple of weeks ago. Patient was living with his and kid in [place]. Moved to [place] because he is on a liver transplant list and will be getting one soon through [facility]. Reports patient has a long history of alcohol abuse, hassevere cirhosis of the liver. Reports patient has not been very functional since the medical issues, that he has been confused and erratic. She reports he has been walking around naked, showering with his clothes on, can't tie his shoes, can't put his clothes on, that he gets aggressive sometime when he is confused. She brought him to [facility] today because she cannot take care of him anymore and because he has been getting aggressive and she doesn't feel safe around him. She reports patient doesn't have a psychiatric history, that before the medical issues patient was a high functioning adult that had a job. No history of psychosis in the family. Contacted [facility] and spoke with intake rehabilitation case coordinator Marquise. She reports patient was brought to their facility for a walk in crisis assessment. That they initially admitted him for psychosisbut then it became clear that patient's presentation was not due to a psychiatric disorder but was rather medical. That patient was highly confused, his eyes and face were yellow, that he was wandering. They spoke with his mother and patient has stage four cirrhosis of the liver, he is on a liver transplant list, that this confusion has been going on for a long time due to medical issues. They feel he is not appropriate for there inpatient psychiatric unit as it is more medical. His mental status appears to be more related to delirium related to another medical issue, due to his medical history and severe confusion, yellow face and eyes. Patient not appropriate for inpatientpsych, this is not a primary psychiatric issue, family doesn't want to pick him up because he can get aggressive when he is confused, patient to be referred to case management. Pt does report using ETOH around time of event in 2021. More records founds and EEG on 07/06/22: Impression: This is a normal EEG with the patient awake and drowsy. There were no epileptiform discharges or seizures. A normal EEG does not rule out the presence of epilepsy or seizures outside of the timeframe of this recording; clinical correlation is advised. MRI brain on 07/06/22 per rad report: 1. No acute intracranial abnormality. 2. Nonspecific mild global parenchymal volume loss. I did find another report that neurology did see pt on 07/06/22 and per report: 47-year-old male with a history of alcoholic cirrhosis presenting with altered mental status and concern for seizures. Patient demonstrated seizure-like activity and thus neurology was consulted and EEG was performed. During the period during which the EEG was performed, patient demonstrated 2 episodes of seizure-like activity, though EEG revealed no seizure or epileptiform activity. 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 MRI brain was nonacute. REVIEW OF SYSTEMS GENERAL:No weight loss, malaise or fevers. HEENT:Negative for frequent or significant headaches, No changes in hearing or vision, no nose bleeds or other nasal problems NECK:Negative for lumps, goiter, pain and significant neck swelling RESPIRATORY: Negative for cough, wheezing or shortness of breath. CARDIOVASCULAR: Negative for chest pain, leg swelling or palpitations. GASTROINTESTINAL: Negative for abdominal discomfort, blood in stools or black stools or change in bowel habits GENITOURINARY: No history of dysuria, frequency or incontinence MUSCULOSKELETAL: Negative for joint pain or swelling, back pain or muscle pain. NEUROLOGIC:Negative for focal numbness or weakness, headaches and dizziness or syncope, vision changes, speech/language changes, changes in gait or falls -- besides those complaints as above in HPI. SKIN:Negative for lesions, rash, and itching. LAB/IMAGING: Reviewed and include: WBC (k/uL) Date Value 12/05/2022 4.32 RBC (m/uL) Date Value 12/05/2022 3.07 (L) Hemoglobin (g/dL) Date Value 12/05/2022 10.4 (L) Hematocrit (%) Date Value 12/05/2022 32.1 (L) MCV (fL) Date Value 12/05/2022 104.6 (H) MCH (pg) Date Value 12/05/2022 33.9 MCHC (g/dL) Date Value 12/05/2022 32.4 RDW-CV (%) Date Value 12/05/2022 17.3 (H) Platelet Count (k/uL) Date Value 12/05/2022 75 (L) MPV (fL) Date Value 12/05/2022 10.0 Glucose (mg/dL) Date Value 12/05/2022 105 (H) BUN (mg/dL) Date Value 12/05/2022 12 Creatinine (mg/dL) Date Value 12/05/2022 0.72 (L) Sodium (mmol/L) Date Value 12/05/2022 140 Potassium (mmol/L) Date Value 12/05/2022 4.2 Chloride (mmol/L) Date Value 12/05/2022 109 (H) CO2 (mmol/L) Date Value 12/05/2022 22 Protein, Total (g/dL) Date Value 12/05/2022 5.7 (L) Albumin (g/dL) Date Value 12/05/2022 2.8 (L) Calcium, Total (mg/dL) Date Value 12/05/2022 8.5 Alkaline Phosphatase (U/L) Date Value 12/05/2022 258 (H) Bilirubin, Total (mg/dL) Date Value 12/05/2022 2.7 (H) AST (U/L) Date Value 12/05/2022 55 (H) ALT (U/L) Date Value 12/05/2022 22 MEDICATIONS: ARIPiprazole (ABILIFY) 2 mg tablet hydrOXYzine pamoate (VISTARIL) 50 mg capsule Ones a day promethazine (PHENERGAN) 25 mg tablet nadolol (CORGARD) 20 mg tablet cyanocobalamin, vitamin B-12, 1,000 mcg cap Take 1,000 mcg by mouth once daily. (Patient not taking: Reported on 08/29/2023) thiamine (VITAMIN B1) 100 mg tablet Take 200 mg by mouth twice daily. pantoprazole DR (PROTONIX) 40 mg tablet Take 40 mg by mouth once daily. folic acid 1 mg tablet Take 1 mg by mouth once daily. lactulose (DUPHALAC, CONSTULOSE) 20 gram/30 mL solution Take 20 g by mouth four times daily. furosemide (LASIX) 40 mg tablet Take 40 mg by mouth once daily. rifAXIMin (XIFAXAN) 550 mg tablet Take 550 mg by mouth twice daily. traZODone (DESYREL) 50 mg tablet Take 50 mg by mouth daily at bedtime. May take 1/2 to 1 tablet nightly as needed. spironolactone (ALDACTONE) 50 mg tablet Take 50 mg by mouth once daily. sertraline (ZOLOFT) 50 mg tablet Take 100 mg by mouth once daily. doxepin capsule 10 mg Take 10 mg by mouth daily at bedtime. HISTORIES See HPI. SOCIAL HISTORY Social History Tobacco Use Smoking status: Never Smokeless tobacco: Never Tobacco comments: Vape nicotine Vaping Use Vaping Use: current everyday user Substances: Nicotine Substance Use Topics Alcohol use: Not Currently Drug use: Never PHYSICAL EXAMINATION BP 126/68 Pulse 94 Resp 16 Wt 77.9 kg (171 lb 12.8 oz) SpO2 96% BMI 25.37 kg/m GENERAL EXAM: General appearance: NAD, pleasant. HEENT: NC/AT, nasal congestion absent, no oral lesions, membranes moist. NECK: No masses, supple. Lungs: CTA bilaterally. CV: RRR nl S1, S2. No carotid bruits. Extr: No cyanosis, clubbing or edema. Skin: Cool to touch. NEUROLOGICAL EXAM: General: Awake, alert, oriented x3 (person,place,time), fluent, no dysarthria; comprehension, naming, repetition intact. Fund of knowledge grossly normal. CN: PERRL, fundi with no evidence of papilledema, EOMI and without nystagmus, VFF to confrontation,facial sensation and strength are normal and symmetric, hearing is intact to finger rub bilaterally, palate and tongue movements are intact and symmetric. SCM and trapezius strength normal. Motor: Normal tone, bulk and strength (5/5) bilaterally (throughout extremities x4). Coordination: FNF, LILY, HTS intact. Noted low amp high freq tremor in hands annette with posture but noasterixis. Sensation: Light touch, vibration intact throughout. No evidence of neglect. Gait: Stable with normal stride and arm swing. Assessment and Plan: ASSESSMENT/PLAN: 1. Seizure (HCC) - ICD9: 780.39, ICD10: R56.9 Patient referred due to history of AMS and possible seizures, with last events of either being 2 years ago. Pt is a limited historian due to other med conditions including history of hepatic encephalopathy and reported mood disorder (not specified) that may have played a role in AMS and possible sei zures. Review of medical record suggest that patient did undergo neurologic workup at that time with head imaging not showing an etiology of seizures or AMS, and seizures being captured during EEG and showing no epileptiform changes and thus, PNES. Again, per note: psych was consulted, and neurology referred patient to psychogenic non-epileptic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 no symptoms. Monitor, GI: tolerating general diet, compensated liver failure secondary to alcoholic cirrhosis Daily ammonia, limit hepatotoxic medications Rifaximin, spironolactone and lactulose Renal: no acute issues continue Lasix, spironolactone ID: afebrile, no acute issues Endocrine: no acute issues MSK: L2 compression fx. Heme: Thrombocytopenia in the setting of advanced liver disease, continue to monitor Dispo: Precert pending for [place] Attending Attestation I saw and examined the patient, I agree with resident note Hx taken from patient S/P fall with acute L2 compression fx, hx liver failure, + for covid but asymptomatic, Placement as able, complex social issues regarding placement given psych hx. he has not been havingany more hallucinations Ammonia up, increase lactulose,... I am managing prescription drugs, robaxin, home meds, prn roxicodone Martin Owen MD FACS * Luana Cortez OT - 08/04/2023 4:00 PM EST Occupational Therapy OT BEDSIDE TREATMENT NOTE [facility] [address], [place] Date:08/04/2023 Patient Name: Alex Rojo : 1975 Room: [address] [place] [address] Evaluating OT:Carla Bose, OTYazmin/L License # [id number] Referring Provider: Cliff Onofre DO Specific Provider Orders/Date: OT evaluation & treatment Diagnosis: Fall, initial encounter [W19.XXXA] Closed fracture of second lumbar vertebra, unspecified fracture morphology, initial encounter ([facility])[S32.029A] Fall (on) (from) other stairs and steps, initial encounter [W10.8XXA] Acute L2 compression fx. Pertinent Medical History: has no past medical history on file. Surgery: none this admit Past Surgical History: has no past surgical history on file. Precautions: Fall Risk, neutral spine, TLSO per NS, Assessment of current deficits [x] Functional mobility [x]ADLs [x] Strength [x]Cognition [x] Functional transfers [x] IADLs [x] Safety Awareness [x]Endurance [x] Fine Coordination [x] Balance [] Vision/perception [x]Sensation []Gross Motor Coordination [] ROM [] Delirium [] Motor Control OT PLAN OF CARE OT POC based on physician orders, patient diagnosis and results of clinical assessment Frequency/Duration: 2-4 days/wk for 2 weeks PRN Specific OT Treatment Interventions to include: Instruction/training on adapted ADL techniques and AE recommendations to increase functional independence within precautions Training on energy conservation strategies, correct breathing pattern and techniques to improve independence/tolerance for self-care routine Functional transfer/mobility training/DME recommendations for increased independence, safety, and fall prevention Patient/Family education to increase follow through with safety techniques and functional independence Recommendation of environmental modifications for increased safety with functional transfers/mobility and ADLs Cognitive retraining/development of therapeutic activities to improve problem solving, judgement, memory, and attention for increased safety/participation in ADL/IADL tasks Therapeutic exercise to improve motor endurance, ROM, and functional strength for ADLs/functional transfers Therapeutic activities to facilitate/challenge dynamic balance, stand tolerance for increased safety and independence with ADLs Therapeutic activities to facilitate gross/fine motor skills for increased independence with ADLs Positioning to improve skin integrity, interaction with environment and functional independence Recommended Adaptive Equipment: TBD Home Living: Pt from [facility], prior to that was a LTC resident at [facility]. Bathroom setup: accessible Equipment owned: none Prior Level of Function: Ind. with ADLs , some assist with IADLs; ambulated without A.D. Driving: none active Occupation: none stated Pain Level: no pain reported at this time Cognition: A&O: x3; Follows 2 step directions Memory: F Sequencing: F Problem solving: F Judgement/safety: F Functional Assessment: AM-PAC Daily Activity Raw Score: Initial Eval Status Date: 07-28-23 Treatment Status Date: 08/04/23 STGs = LTGs Time frame: 10-14 days Feeding Ind. Ind Mod I/ Ind Grooming Set up Sup standing Modified Wilkinson/Sup UB Dressing Max A for TLSO Precautions reviewed. Max A Per last tx Supervision LB Dressing Min/mod A figure 4 technique seated EOB to allan B socks Sup Supervision Bathing Min A With sim. figure 4 tech. SBA Per last tx Supervision Toileting NT SBA Per last tx Modified Wilkinson/Sup Bed Mobility Logroll: Sup Supine to sit: SBA Sit to supine: SBA Mod I- supine<->sit Supine to sit: Modified Wilkinson/Sup Sit to supine: Modified Wilkinson/Sup Functional Transfers SBA/Sup with sit <> stand, SPT without A.D. Sup- sit<- >stand Modified Wilkinson/Sup Functional Mobility SBA/Sup without A.D. > functional home distances Sup Home distance no AD Modified Wilkinson/Sup Balance Sitting: Static: Sup Dynamic:SBA/Sup Standing: SBA/Sup Sitting: Static: Ind Dynamic: Ind Standing: Sup Activity Tolerance F Fair+ G Visual/ Perceptual Glasses: yes Vitals spO2 on RA & HR WFL WFL Comments: Upon arrival pt supine in bed. Pt completed bed making and clothing retrieval at various levels with Supervision. At end of session pt left seated EOB, call light within reach. Pt has made good progress towards set goals. Continue with current plan of care Treatment Time In: 2:35 Treatment Time Out: 3:00 Treatment Charges: [place] [address] Manual Therapy 99762 Thera Activities 13412 15 1 ADL/Home Mgt 00194 10 1 Neuro Re-ed 65863 Group Therapy Orthotic manage/training 15680 Non-Billable Time Total Timed Treatment 25 2 Luana Best, LAMAS/L [id number] * Alex Newton, PT - 08/04/2023 9:56 AM EST Images from the original note were not included. Physical Therapy Treatment Note Name: Alex Rojo : 1975 Date of Service: 08/04/2023 Evaluating PT: Alex Newton PT [id number] Referring provider/PT Order: PT Eval and Treat 07/27/232214 PT evaluation and treat Start: 07/27/232214, End: 07/27/232214, ONE TIME, Standing Count: 1 Occurrences, R Comments: After in TLSO and cleared by Cliff Staley DO Room #: 5405/5405-A Diagnosis: Fall, initial encounter [W19.XXXA] Closed fracture of second lumbar vertebra, unspecified fracture morphology, initial encounter ([facility])[S32.029A] Fall (on) (from) other stairs and steps, initial encounter [W10.8XXA] PMHx/PSHx: @PM@ has no past surgical history on file. Procedure/Surgery: none Precautions: Falls, FWB (full weight bearing) Soft TLSO Equipment Needs: None, SUBJECTIVE: Patient admitted from [facility] however he is LTC at [facility] in [place], [place]. Indgait without device. e Equipment owned: None, OBJECTIVE: Initial Evaluation Date: 07/28/23 Treatment 08/04/23 Short Term/ D[employer]ler Goals AM-PAC 6 Clicks Was pt agreeable to Eval/treatment? Yes yes Does pt have pain? minimal None stated this date. Bed Mobility Rolling: Sup Supine to sit: Sup Sit to supine: Sup Scooting: Sup Just cues to adhere to spinal neutral mechanics. Rolling: Sup Supine to sit: Sup Sit to supine: Sup Scooting: Sup Rolling: Ind Supine to sit: Ind Sit to supine: Ind Scooting: Ind Transfers Sit to stand: SBA Stand to sit: SBA Stand pivot: SBA Sit to stand: SBA Stand to sit: SBA Stand pivot: SBA Sit to stand: Ind Stand to sit: Ind Stand pivot: Ind Ambulation 100 feet with None SBA No LOB. 50 feet with no device SBA No LOB noted with gait. In room. 200 feet with Ind Stair negotiation: ascended and descended 4 steps with 1 rail SBA NT 10 steps with Ind Strength/ROM: See OT note for BUE ROM and strength RLE grossly 4+/5 LLE grossly 4+/5 RLE AROM WFL LLE AROM WFL Balance: Static Sitting: Ind Dynamic Sitting: Ind Static Standing: SBA Dynamic Standing: SBA Patient is Alert & Oriented x person, place, time, and situation and follows directions Sensation: Pt denies numbness and tingling to extremities Edema: none Therapeutic Exercises: Functional activity as stated above and including gait without assistive deice Patient education Pt educated on role of Physical Therapy, risks of immobility, safety and plan of care, importance of mobility while in hospital , and spinal precautions and use of call light for safety. Patient response to education: Pt verbalized understanding Pt demonstrated skill Pt requires further education in this area Yes Yes Yes ASSESSMENT: Conditions Requiring Skilled Therapeutic Intervention: [x]Decreased strength [x]Decreased ROM [x]Decreased functional mobility [x]Decreased balance [x]Decreased endurance [x]Decreased posture []Decreased sensation []Decreased coordination []Decreased vision [x]Decreased safety awareness []Increased pain Comments: RN cleared patient for participation in therapy session. Patient was seen this date for PT treatment. Patient was agreeable to intervention. Results of the functional assessment are noted above. Uponentering the room patient was found sitting EOB. Spinal neutral mechanics explained with fair understanding. STS and gait completed in the room due to isolation precaution. No LOB noted with gait. At end of session, patient in bed with call light and phone within reach, all lines and tubes intact, nursing notified. This patient can benefit from the continuation of skilled PT to maximize functional level and return to PLOF. Treatment: Patient completed and was instructed in the following treatment: Bed mobility training - pt given verbal and tactile cues to facilitate proper sequencing and safetyduring rolling and supine>sit as well as provided with physical assistance to complete task STS and transfer training - educated on hand/foot placement, safety, and sequencing during STS. Gait training - verbal cues for, upright posture, and safety during 90 and 180 degree turns during gait Education regarding use of call light for safety, spinal neutral mechanics, and application of TLSO. Skillful positioning in bed to protect skin/joint integrity. Vitals and symptoms were closely monitored throughout session. Pt's/ family goals Return Home Prognosis is good for reaching above PT goals. Patient and or family understand(s) diagnosis, prognosis, and plan of care. yes, PHYSICAL THERAPY PLAN OF CARE: PT POC is established based on physician order and patient diagnosis Diagnosis: Fall, initial encounter [W19.XXXA] Closed fracture of second lumbar vertebra, unspecified fracture morphology, initial encounter ([facility])[S32.029A] Fall (on) (from) other stairs and steps, initial encounter [W10.8XXA] Specific instructions for next treatment: Increase ambulation distance and Review spinal precautions Current Treatment Recommendations: [x] Strengthening to improve independence with functional mobility [x] ROM to improve independence with functional mobility [x] Balance Training to improve static/dynamic balance and to reduce fall risk [x] Endurance Training to improve activity tolerance during functional mobility [x] Transfer Training to improve safety and independence with all functional transfers [x] Gait Training to improve gait mechanics, endurance and asses need for appropriate assistive device [x] Stair Training in preparation for safe discharge home and/or into the community when appropriate [] Positioning to prevent skin breakdown and contractures [x] Safety and Education Training [] Patient/Caregiver Education [] HEP [] Gait Team to be added to POC [] Other PT termite helper treatment goals are located in above grid Frequency of treatments: 2-5x/week x 1-2 weeks. Time in 1100 Time out 1125 Total Treatment Time 25 minutes Evaluation Time includes thorough review of current medical information, gathering information on past medical history/social history and prior level of function, completion of standardized testing/informal observation of tasks, assessment of data and education on plan of care and goals. CPT codes: [] Low Complexity PT evaluation 42721 [] Moderate Complexity PT evaluation 23692 [] High Complexity PT evaluation 62284 [] PT Re-evaluation 08221 [] Gait training 37000 - minutes [] Manual therapy 05610 minutes [x] Therapeutic activities 60548 -25 minutes [] Therapeutic exercises 70389 - minutes [] Neuromuscular reeducation 90062 minutes Alex Newton, PT [id number] * Martin Owen MD - 08/04/2023 5:52 AM EST TRAUMA SURGERY DAILY PROGRESS NOTE 08/04/2023 CC: Ground level fall Subjective: No acute complaints or overnight events. Patient has had no further nightmares, hallucinations, intrusive thoughts, or new anxiety. He denies experiencing any recent hallucinations. Patient's case was again reviewed by psychiatrist yesterday, who again recommend no changes to psychotropic medications. Objective: BP (!) 98/54 Pulse 64 Temp 97.7 F (36.5 C) (Temporal) Resp 16 Ht 1.753 m (5' 9.02) Wt 78kg (171 lb 15.3 oz) SpO2 97% BMI 25.38 kg/m Gen: alert, oriented, no apparent distress HEENT: NCAT CV: RR, warm throughout Pulm: nonlabored breathing on RA, equal chest rise Abdomen: soft, nontender, nondistended Extremities: moving all extremities, no peripheral edema Skin: warm and dry Assessment/Plan: 48 y.o. male s/p ground level fall, L2 compression fx from inpatient psychiatric facility Neuro: Patient has been GCS 15, acute pain in lumbar spine Neurosurgery following: TLSO Multimodal pain control including Robaxin, oxycodone panel Psychiatrist recommends no acute change in psychotropic medications CV: HR near normal limits, no acute issues Pulm: tolerating room air + COVID test earlier this admission. no symptoms. Monitor, GI: tolerating general diet, compensated liver failure secondary to alcoholic cirrhosis Daily ammonia, limit hepatotoxic medications Rifaximin, spironolactone and lactulose Renal: no acute issues continue Lasix, spironolactone ID: afebrile, no acute issues Endocrine: no acute issues MSK: L2 compression fx. Heme: Thrombocytopenia in the setting of advanced liver disease, continue to monitor Dispo: Precert pending for [place] Attending Attestation I saw and examined the patient, I agree with resident note Hx taken from patient S/P fall with acute L2 compression fx, hx liver failure, + for covid but asymptomatic, Placement as able, complex social issues regarding placement given psych hx. he has not been havingany more hallucinations I am managing prescription drugs, robaxin, home meds, prn roxicodone, Martin Owen MD FACS * Milady Keyes RN - 08/03/2023 4:15 PM EST This nurse spoke with legal guardian yana in regards to picking up patients belonging. This nursewas informed that she doesn't pick and shovel man belongings and that the facility can drop it off to the patient. This nurse called [facility] back to inform them of this information, and was informed that they do not bring the patients belongings to them that someone has to pick them up. I informed the staff to give Yana a call in the am to explain everything in detail to her about the patient belongings. Milady Keyes RN * Milady Keyes RN - 08/03/2023 3:58 PM EST [facility] behavioral health was called and they stated the patients belongings are all ready to go for someone to pick and shovel man. * Sandra Orellana APRN - VINH - 08/03/2023 2:21 PM EST Behavioral [facility] follow-up Psychiatry went to see the patient this morning in his room he is lying in bed with a telemetry sitter. He is bright pleasant and his thought process is linear and goal directed. He tells me that he is doing good, and is no longer having any auditory or visual hallucinations. Patient does not appear to be internally stimulated internally preoccupied, he does not seem to be paranoid. There are no overt or covert signs of psychosis. I asked patient about the nightmares he had talked about during her prior evaluation and he states they are gone. He is bright and pleasant. There are no neurovegetative signs of symptoms of depression. his only concern is that he still has belongings at [facility] including his cell phone. He asked if I can assist him in getting his belongings for him and is inquiring about discharge. Mental status admission: Will suddenly reveal a 48-year-old male lying in hospital bed, cooperative forthcoming with information psychomotor evaluation revealed no agitation retardation any abnormal movements. His eye contact is fair his speech is normal rate rhythm and tone. His mood is I feel good. Affect is mood congruent bright appropriate pleasant. His thought process is linear without flight of ideas loose associations. Thought contents devoid of any auditory visual hallucinations delusions or any other perceptual abnormalities. He denies suicidal homicidal ideations intent or plan. He is able to repeat wordsand phrases, his vocabulary is intact he has knowledge of current events and past events recent remote memory are intact impulse control is adequate cognitive function peers to be his baseline his insight judgment is fair he is alert oriented time place and person Clinical impression: Psychosis NOS currently no psychotic symptoms present Plans and recommendations: Patient is not suicidal, homicidal, psychotic or manic does not meet criteria for inpatient level of psychiatric treatment. Patient is not having any acute psychiatric symptoms on the current dose ofhis medications. Due to patient's recent fall, his liver cirrhosis psychiatry will not recommend any medication adjustments as there is no clinical indication to adjust his medications especially considering risks and benefits. Psychiatry will sign off on this case. We have sent a nursing communication for case management to assist patient in receiving his belongings from [facility]. Please reconsult if there are any acute inpatient psychiatric needs such as if patient is suicidal, homicidal ps ychotic or manic. * Marah Maldonado RD, LD - 08/03/2023 6:36 AM EST Comprehensive Nutrition Assessment Type and Reason for Visit: Initial, RD Nutrition Re-Screen/LOS Nutrition Recommendations/Plan: Continue current diet ; monitor ammonia levels Will start magic cup once/day to promote oral intake Will monitor Malnutrition Assessment: Malnutrition Status: Insufficient data (08/03/23 0634) Context: Acute Illness Findings of the 6 clinical characteristics of malnutrition: Energy Intake: Mild decrease in energy intake (Comment) Weight Loss: Unable to assess (d/t lack of wt hx per EMR) Body Fat Loss: Unable to assess (COVID ISO) Muscle Mass Loss: Unable to assess (COVID ISO) Fluid Accumulation: No significant fluid accumulation Inward Toll Operator Strength: Not Performed Nutrition Assessment: pt adm d/t fall w/ frxs; PMhx of liver failure/cirrhosis, ETOH abuse; pt w/ hallucinations noted this adm; pt found to be positive for COVID-19- in iso; will start ONS to promote oral intake and willmonitor. Nutrition Related Findings: A&Ox4; poor dentition; active BS; diarrhea; no edema; +I/O; ammonia WNL (was elevated this adm)Wound Type: None Current Nutrition Intake & Therapies: Average Meal Intake: 51-75% (avg; intake appears to be improving since admission) Average Supplements Intake: None Ordered ADULT DIET; Regular; 60 to 80 gm; Safety Tray; Safety Tray (Disposables) ADULT ORAL NUTRITION SUPPLEMENT; Dinner; Frozen Oral Supplement Anthropometric Measures: Height: 175.3 cm (5' 9.02) [place] Body Weight (IBW): 160 lbs (73 kg) Current Body Weight: 78.1 kg (172 lb 2.9 oz) (08/02-BS), 107.6 % IBW. Weight Source: Bed Scale Current BMI (kg/m2): 25.4 Usual Body Weight: (UTO d/t lack of wt hx per EMR) Weight Adjustment For: No Adjustment BMI Categories: Overweight (BMI 25.0-29.9) Estimated Daily Nutrient Needs: Energy Requirements Based On: Formula Weight Used for Energy Requirements: Current Energy (kcal/day): 4911-8865 Weight Used for Protein Requirements: [place] Protein (g/day): 1.0-1.1g/kgxIBW=70-80g (as tolerated w/ elevated ammonia this adm; monitor ammonia/LFTs/bili) Method Used for Fluid Requirements: 1 ml/kcal Fluid (ml/day): 0322-6611 Nutrition Diagnosis: Inadequate oral intake related to cognitive or neurological impairment as evidenced by intake 51-75% Nutrition Interventions: Food and/or Nutrient Delivery: Continue Current Diet, Start Oral Nutrition Supplement (magic cup once/day) Nutrition Education/Counseling: Education not indicated Coordination of Nutrition Care: Continue to monitor while inpatient Goals: Goals: PO intake 75% or greater, by next RD assessment Nutrition Monitoring and Evaluation: Behavioral-Environmental Outcomes: None Identified Food/Nutrient Intake Outcomes: Food and Nutrient Intake, Supplement Intake Physical Signs/Symptoms Outcomes: Biochemical Data, Nutrition Focused Physical Findings, Chewing orSwallowing, Skin, Weight, GI Status, Fluid Status or Edema Discharge Planning: Too soon to determine Marah Maldonado RD, JUDI Contact: [phone] * Martin Owen MD - 08/03/2023 6:11 AM EST TRAUMA SURGERY DAILY PROGRESS NOTE 08/03/2023 CC: Ground level fall Subjective: No acute complaints or overnight events. Patient denies any further nightmares, hallucinations, intrusive thoughts, or new anxiety. He denies experiencing any recent hallucinations. He did have a nightmare several days ago, but not since. He is requesting to take a shower Objective: BP (!) 109/58 Pulse 66 Temp 98 F (36.7 C) (Temporal) Resp 16 Ht 1.753 m (5' 9) Wt 78.1 kg (172 lb 2.9 oz) SpO2 99% BMI 25.43 kg/m Gen: alert, oriented, no apparent distress HEENT: NCAT CV: RR, warm throughout Pulm: nonlabored breathing on RA, equal chest rise Abdomen: soft, nontender, nondistended Extremities: moving all extremities, no peripheral edema Skin: warm and dry Assessment/Plan: 48 y.o. male s/p ground level fall, L2 compression fx from inpatient psychiatric facility Neuro: Patient has been GCS 15, acute pain in lumbar spine, concern for possible self-harm/recent history thereof Neurosurgery following: TLSO Multimodal pain control including Robaxin, oxycodone panel Constant observation/safety tray Psychiatry evaluation recommends no acute change in psychotropic medications CV: HR near normal limits, no acute issues Pulm: tolerating room air + COVID no symptoms. Monitor, GI: tolerating general diet, compensated liver failure secondary to alcoholic cirrhosis Daily CMP/ammonia/limit hepatotoxic medications Rifaximin, spironolactone and lactulose Renal: no acute issues continue Lasix, spironolactone ID: afebrile, no acute issues Endocrine: no acute issues MSK: L2 compression fx. Heme: Thrombocytopenia in the setting of advanced liver disease, continue to monitor Dispo: Precert pending for [place] Attending Attestation I saw and examined the patient, I agree with resident note Hx taken from patient I personally reviewed the S/P fall with acute L2 compression fx, hx liver failure, + for covid but asymptomatic, Placement as able, complex social issues regarding placement given psych hx. he has not been havingany more hallucinations... I am managing prescription drugs, robaxin, home meds, prn roxicodone, Martin Owen MD FACS * Luana Cortez OT - 08/02/2023 1:09 PM EST Occupational Therapy OT BEDSIDE TREATMENT NOTE [facility] [address], [place] Date:08/02/2023 Patient Name: Alex Rojo : 1975 Room: [address] [place], [place] [address] Evaluating OT:Carla Bose OTR/L License # [id number] Referring Provider: Cliff Onofre DO Specific Provider Orders/Date: OT evaluation & treatment Diagnosis: Fall, initial encounter [W19.XXXA] Closed fracture of second lumbar vertebra, unspecified fracture morphology, initial encounter ([facility])[S32.029A] Fall (on) (from) other stairs and steps, initial encounter [W10.8XXA] Acute L2 compression fx. Pertinent Medical History: has no past medical history on file. Surgery: none this admit Past Surgical History: has no past surgical history on file. Precautions: Fall Risk, neutral spine, TLSO per NS, global safety officer, Supervision for safety Assessment of current deficits [x] Functional mobility [x]ADLs [x] Strength [x]Cognition [x] Functional transfers [x] IADLs [x] Safety Awareness [x]Endurance [x] Fine Coordination [x] Balance [] Vision/perception [x]Sensation []Gross Motor Coordination [] ROM [] Delirium [] Motor Control OT PLAN OF CARE OT POC based on physician orders, patient diagnosis and results of clinical assessment Frequency/Duration: 2-4 days/wk for 2 weeks PRN Specific OT Treatment Interventions to include: Instruction/training on adapted ADL techniques and AE recommendations to increase functional independence within precautions Training on energy conservation strategies, correct breathing pattern and techniques to improve independence/tolerance for self-care routine Functional transfer/mobility training/DME recommendations for increased independence, safety, and fall prevention Patient/Family education to increase follow through with safety techniques and functional independence Recommendation of environmental modifications for increased safety with functional transfers/mobility and ADLs Cognitive retraining/development of therapeutic activities to improve problem solving, judgement, memory, and attention for increased safety/participation in ADL/IADL tasks Therapeutic exercise to improve motor endurance, ROM, and functional strength for ADLs/functional transfers Therapeutic activities to facilitate/challenge dynamic balance, stand tolerance for increased safety and independence with ADLs Therapeutic activities to facilitate gross/fine motor skills for increased independence with ADLs Positioning to improve skin integrity, interaction with environment and functional independence Recommended Adaptive Equipment: TBD Home Living: Pt from [facility], prior to that was a LTC resident at [facility] [place] [facility]. Bathroom setup: accessible Equipment owned: none Prior Level of Function: Ind. with ADLs , some assist with IADLs; ambulated without A.D. Driving: none active Occupation: none stated Pain Level: no pain reported at this time Cognition: A&O: x3; Follows 2 step directions Memory: F Sequencing: F Problem solving: F Judgement/safety: F Functional Assessment: [facility] Daily Activity Raw Score: Initial Eval Status Date: 07-28-23 Treatment Status Date: 08/02/23 STGs = LTGs Time frame: 10-14 days Feeding Ind. Ind Mod I/ Ind Grooming Set up SBA To wash hands standing at sink Modified [place]/Sup UB Dressing Max A for TLSO Precautions reviewed. Max A To doff TLSO supine rolling side to side Supervision LB Dressing Min/mod A figure 4 technique seated EOB to allan B socks SBA To don socks seated EOB. Cuing to maintain spinal precautions Supervision Bathing Min A With sim. figure 4 tech. SBA Simulated seated and standing for posterior Supervision Toileting NT SBA- clothing management SBA Standing at toilet to urinate Modified Wilkinson/Sup Bed Mobility Logroll: Sup Supine to sit: SBA Sit to supine: SBA SBA- supine<->sit Educated on log rolling technique with poor understanding Supine to sit: Modified Wilkinson/Sup Sit to supine: Modified [place]/Sup Functional Transfers SBA/Sup with sit <> stand, SPT without A.D. Sup- sit<->stand Sup- toilet transfer Modified [place]/Sup Functional Mobility SBA/Sup without A.D. > functional home distances SBA To and from bathroom no AD Modified [place]/Sup Balance Sitting: Static: Sup Dynamic:SBA/Sup Standing: SBA/Sup Sitting: Static: Ind Dynamic: Ind Standing: Sup Activity Tolerance F Fair G Visual/ Perceptual Glasses: yes Vitals spO2 on RA & HR WFL WFL Comments: Upon arrival pt supine in bed. Pt educated on techniques to increase independence and safety during ADL's, bed mobility, and functional transfers. At end of session pt left seated upright in bed, call light within reach. Pt has made fair progress towards set goals. Continue with current plan of care Treatment Time In: 11:00 Treatment Time Out: 11:23 Treatment Charges: [place] [address] Manual Therapy 85055 Thera Activities 20571 13 1 ADL/Home Mgt 88880 10 1 Neuro Re-ed 27668 Group Therapy Orthotic manage/training 85076 Non-Billable Time Total Timed Treatment 23 2 Luana Best, LAMAS/L [id number] * Martin Owen MD - 08/02/2023 7:35 AM EST TRAUMA SURGERY DAILY PROGRESS NOTE 08/02/2023 CC: Ground level fall Subjective: PUSHPA Objective: BP 120/62 Pulse 68 Temp 98.1 F (36.7 C) (Temporal) Resp 17 Ht 1.753 m (5' 9) Wt 78.1 kg (172 lb 2.9 oz) SpO2 100% BMI 25.43 kg/m Gen: alert, oriented, no apparent distress HEENT: NCAT CV: RR, warm throughout Pulm: nonlabored breathing on RA, equal chest rise Abdomen: soft, nontender, nondistended Extremities: moving all extremities, no peripheral edema Skin: warm and dry Assessment/Plan: 48 y.o. male s/p ground level fall, L2 compression fx from inpatient psychiatric facility Neuro: Patient has been GCS 15, acute pain in posterior/long spine, concern for possible self-harm/recent history thereof Neurosurgery following: TLSO Multimodal pain control including Robaxin, oxycodone panel Constant observation/safety tray Psychiatry evaluation recommends return to [facility] CV: HR near normal limits, no acute issues Pulm: tolerating room air + COVID no sx. Monitor, GI: tolerating general diet, compensated liver failure secondary to alcoholic cirrhosis Daily CMP/ammonia/limit hepatotoxic medications Rifaximin, spironolactone and lactulose Renal: no acute issues continue Lasix, spironolactone ID: afebrile, no acute issues Endocrine: no acute issues MSK: L2 compression fx. Heme: Thrombocytopenia in the setting of advanced liver disease, continue to monitor Dispo: awaiting [facility] isolation bed Attending Attestation I saw and examined the patient, I agree with resident note Hx taken from patient S/P fall with acute L2 compression fx, hx liver failure, + for covid but asymptomatic, Placement as able, complex social issues regarding placement given psych hx. I am managing prescription drugs, robaxin, home meds, prn roxicodone, Martin Owen MD FACS * Martin Owen MD - 08/01/2023 6:03 AM EST TRAUMA SURGERY DAILY PROGRESS NOTE 08/01/2023 Subjective: Pain is controlled. Patient is scared to sleep due to recent nightmares. Tolerating regular diet. One dose of lactulose was missed yesterday due to medication unavailable. Guardian unable to be reached yesterday due to holiday Objective: BP (!) 107/59 Pulse 73 Temp 99.7 F (37.6 C) (Oral) Resp 16 Ht 1.753 m (5' 9) Wt 78.3 kg (172 lb 9.9 oz) SpO2 95% BMI 25.49 kg/m Gen: alert, oriented, no apparent distress. Patient wearing TLSO HEENT: NCAT, anicteric CV: RR, warm throughout Pulm: nonlabored breathing on RA, equal chest rise Abdomen: soft, nontender, nondistended Extremities: moving all extremities, no peripheral edema Skin: warm and dry Assessment/Plan: 48 y.o. male s/p ground level fall, L2 compression fx from inpatient psychiatric facility Neuro: Patient has been GCS 15, acute pain in posterior/long spine, concern for possible self-harm/recent history thereof Neurosurgery following: TLSO Multimodal pain control including Robaxin, oxycodone panel Avoid scheduled Tylenol in the setting of liver failure Constant observation/safety tray Psychiatry evaluation recommends return to [facility] CV: HR near normal limits, no acute issues Pulm: tolerating room air + COVID no sx. Monitor, GI: tolerating general diet, compensated liver failure secondary to alcoholic cirrhosis Daily CMP/ammonia/limit hepatotoxic medications Rifaximin, spironolactone and lactulose Renal: no acute issues continue Lasix, spironolactone ID: afebrile, no acute issues Endocrine: no acute issues MSK: L2 compression fx. [facility] 18/24 on 07/28 Heme: Thrombocytopenia in the setting of advanced liver disease, continue to monitor Dispo: awaiting final arrangements with guardian for return to [facility] Attending Attestation I saw and examined the patient, I agree with resident note Hx taken from patient S/P fall with acute L2 compression fx, hx liver failure, + for covid but asymptomatic, Placement as able, complex social issues regarding placement given psych hx. I am managing prescription drugs, robaxin, home meds, prn roxicodone, Martin Owen MD FACS * Luana Cortez OT - 07/31/2023 3:48 PM EST Occupational Therapy OT BEDSIDE TREATMENT NOTE [facility] [address], [place] Date:07/31/2023 Patient Name: Alex Rojo : 1975 Room: [address] [place] [address] Evaluating OT:Carla Bose OTR/L License # [id number] Referring Provider: Cliff Onofre DO Specific Provider Orders/Date: OT evaluation & treatment Diagnosis: Fall, initial encounter [W19.XXXA] Closed fracture of second lumbar vertebra, unspecified fracture morphology, initial encounter ([facility])[S32.029A] Fall (on) (from) other stairs and steps, initial encounter [W10.8XXA] Acute L2 compression fx. Pertinent Medical History: has no past medical history on file. Surgery: none this admit Past Surgical History: has no past surgical history on file. Precautions: Fall Risk, neutral spine, TLSO per NS, global safety officer, Supervision for safety Assessment of current deficits [x] Functional mobility [x]ADLs [x] Strength [x]Cognition [x] Functional transfers [x] IADLs [x] Safety Awareness [x]Endurance [x] Fine Coordination [x] Balance [] Vision/perception [x]Sensation []Gross Motor Coordination [] ROM [] Delirium [] Motor Control OT PLAN OF CARE OT POC based on physician orders, patient diagnosis and results of clinical assessment Frequency/Duration: 2-4 days/wk for 2 weeks PRN Specific OT Treatment Interventions to include: Instruction/training on adapted ADL techniques and AE recommendations to increase functional independence within precautions Training on energy conservation strategies, correct breathing pattern and techniques to improve independence/tolerance for self-care routine Functional transfer/mobility training/DME recommendations for increased independence, safety, and fall prevention Patient/Family education to increase follow through with safety techniques and functional independence Recommendation of environmental modifications for increased safety with functional transfers/mobility and ADLs Cognitive retraining/development of therapeutic activities to improve problem solving, judgement, memory, and attention for increased safety/participation in ADL/IADL tasks Therapeutic exercise to improve motor endurance, ROM, and functional strength for ADLs/functional transfers Therapeutic activities to facilitate/challenge dynamic balance, stand tolerance for increased safety and independence with ADLs Therapeutic activities to facilitate gross/fine motor skills for increased independence with ADLs Positioning to improve skin integrity, interaction with environment and functional independence Recommended Adaptive Equipment: TBD Home Living: Pt from [facility], prior to that was a LTC resident at [facility] in [place]. Bathroom setup: accessible Equipment owned: none Prior Level of Function: Ind. with ADLs , some assist with IADLs; ambulated without A.D. Driving: none active Occupation: none stated Pain Level: no pain reported at this time Cognition: A&O: x3; Follows 2 step directions Memory: F Sequencing: F Problem solving: F Judgement/safety: F Functional Assessment: AM-PAC Daily Activity Raw Score: Initial Eval Status Date: 07-28-23 Treatment Status Date: 07/31/23 STGs = LTGs Time frame: 10-14 days Feeding Ind. Ind Mod I/ Ind Grooming Set up SBA To wash hands standing at sink Modified Wilkinson/Sup UB Dressing Max A for TLSO Precautions reviewed. Max A To doff TLSO supine rolling side to side Supervision LB Dressing Min/mod A figure 4 technique seated EOB to allan B socks Min A To don socks seated EOB. Cuing to maintain spinal precautions Supervision Bathing Min A With sim. figure 4 tech. Min A Simulated seated and standing for posterior Supervision Toileting NT SBA- clothing management Modified Wilkinson/Sup Bed Mobility Logroll: Sup Supine to sit: SBA Sit to supine: SBA SBA- supine<->sit Educated on log rolling technique with poor understanding Supine to sit: Modified Wilkinson/Sup Sit to supine: Modified Wilkinson/Sup Functional Transfers SBA/Sup with sit <> stand, SPT without A.D. Sup- sit<->stand Sup- toilet transfer Modified Wilkinson/Sup Functional Mobility SBA/Sup without A.D. > functional home distances Sup To and from bathroom no AD Modified Wilkinson/Sup Balance Sitting: Static: Sup Dynamic:SBA/Sup Standing: SBA/Sup Sitting: Static: Ind Dynamic: Ind Standing: Sup Activity Tolerance F Fair G Visual/ Perceptual Glasses: yes Vitals spO2 on RA & HR WFL WFL Comments: Upon arrival pt supine in bed. Pt educated on techniques to increase independence and safety during ADL's, bed mobility, and functional transfers. At end of session pt left seated upright in bed, call light within reach. Pt has made fair progress towards set goals. Continue with current plan of care Treatment Time In: 3:15 Treatment Time Out: 3:30 Treatment Charges: [place] [address] Manual Therapy 34801 Thera Activities 75070 15 1 ADL/Home Mgt 41805 Neuro Re-ed 53842 Group Therapy Orthotic manage/training 56177 Non-Billable Time Total Timed Treatment 15 1 Luana Cortez LAMAS/L [id number] * Tara Escobar RN - 07/31/2023 7:50 AM EST Psych consult sent to Sandra Orellana NP * Martin Owen MD - 07/31/2023 6:11 AM EST TRAUMA SURGERY DAILY PROGRESS NOTE 07/31/2023 Subjective: Patient states he had a rough night due to nightmares. Denies worsening pain or other new complaints. Tolerating diet and bowels are moving. He is hungry Objective: BP (!) 118/58 Pulse 72 Temp 98.3 F (36.8 C) (Temporal) Resp 18 Ht 1.753 m (5' 9) Wt 77.1kg (170 lb) SpO2 94% BMI 25.10 kg/m Gen: alert, oriented, no apparent distress. Patient wearing TLSO HEENT: NCAT, anicteric CV: RR, warm throughout Pulm: nonlabored breathing on RA, equal chest rise Abdomen: soft, nontender, nondistended Extremities: moving all extremities, no peripheral edema Skin: warm and dry Assessment/Plan: 48 y.o. male s/p ground level fall, L2 compression fx from inpatient psychiatric facility Neuro: Patient has been GCS 15, acute pain in posterior/long spine, concern for possible self-harm/recent history thereof Neurosurgery following: TLSO Multimodal pain control including Robaxin, oxycodone panel Avoid scheduled Tylenol in the setting of liver failure Constant observation/safety tray Will need psych consult if patient still admitted on 07/31 to qualify for readmission to [facility] CV: HR near normal limits, no acute issues Pulm: tolerating room air GI: tolerating general diet, compensated liver failure secondary to alcoholic cirrhosis Daily CMP/ammonia/limit hepatotoxic medications Rifaximin, spironolactone and lactulose Renal: no acute issues Home Lasix ID: afebrile, no acute issues Endocrine: no acute issues MSK: L2 compression fx. [facility] on 07/28 Heme: Thrombocytopenia in the setting of advanced liver disease, continue to monitor Attending Attestation I saw and examined the patient, I agree with resident note Hx taken from patient S/P fall with acute L2 compression fx, hx liver failure Psych eval for placement back to [facility]. I am managing prescription drugs, robaxin, home meds, prn roxicodone, Martin Owen MD FACS * Tao Parsons RN - 07/31/2023 1:15 AM EST Patient complaining of vivid night terrors and in the dream he was being possessed by a demon. * Fina Padilla MD - 07/30/2023 1:35 PM EST [facility] PROGRESS NOTE ATTENDING NOTE TRAUMA MECHANISM: fall Chief Complaint Patient presents with Fall Pt sent in from [facility] after a fall. Pt had an xray and they reported a fracture. HPI Trauma consult. Injury occurred 07/26 (yesterday). Approximately around noon. Patient reports that he was a ground-level fall near his bed, fell backwards and struck his low lumbar/sacral area along the chair arm. Hethinks he may have hit his head as well, denies any loss of consciousness. Patient states that he currently resides at [facility] which is an inpatient psychiatric facility. He states he has only been there for several days. He reports that the facility did x-rays and a doctor instructed him to betransported to the emergency department here at [facility]. Patient denies any new neurological symptoms. States he does have chronic bilateral lower extremity/foot paresthesias. Patient Active Problem List Diagnosis Fall Closed fracture of second lumbar vertebra (HCC) SUBJECTIVE/OVERNIGHT EVENTS: Better mentation today; Tm 102 yesterday--NSGY consulted medicine Review of Systems Constitutional: Positive for activity change. Negative for appetite change and unexpected weight change. HENT: Negative. Eyes: Negative. Respiratory: Negative. Negative for cough and shortness of breath. Cardiovascular: Negative. Negative for chest pain and leg swelling. Gastrointestinal: Negative. Negative for abdominal distention, abdominal pain, anal bleeding, bloodin stool, constipation, diarrhea, nausea and vomiting. Endocrine: Negative. Genitourinary: Negative. Musculoskeletal: Positive for back pain, gait problem and myalgias. Negative for arthralgias and joint swelling. Skin: Negative. Allergic/Immunologic: Negative. Neurological: Positive for weakness. Negative for dizziness and headaches. Hematological: Negative. Psychiatric/Behavioral: Positive for decreased concentration and sleep disturbance. Negative for confusion. BP (!) 110/53 Pulse 71 Temp 98.6 F (37 C) Resp 17 Ht 1.753 m (5' 9) Wt 77.1 kg (170 lb) SpO2 94% BMI 25.10 kg/m Physical Exam Constitutional: Appearance: He is obese. HENT: Head: Normocephalic and atraumatic. Nose: Nose normal. Mouth/Throat: Mouth: Mucous membranes are moist. Pharynx: Oropharynx is clear. Eyes: Extraocular Movements: Extraocular movements intact. Pupils: Pupils are equal, round, and reactive to light. Cardiovascular: Rate and Rhythm: Normal rate and regular rhythm. Pulses: Normal pulses. Heart sounds: Normal heart sounds. Pulmonary: Effort: Pulmonary effort is normal. Breath sounds: Normal breath sounds. Abdominal: General: There is no distension. Palpations: Abdomen is soft. Tenderness: There is no abdominal tenderness. Musculoskeletal: General: No tenderness or signs of injury. Cervical back: Normal range of motion and neck supple. Skin: General: Skin is warm and dry. Neurological: General: No focal deficit present. Comments: Sleepy but will wake up to voice, follows commands ASSESSMENT/PLAN: L2 compression fracture--NSGY following, TLSO brace Chronic liver failure--resume spironolactone, lasix, lactulose Somnolence--check ammonia, start lactulose Hyperammonemia--check daily, c/w lactulose Thrombocytopenia d/t liver failure--hold chemical DVT ppx COVID positive--on RA, supportive care INCIDENTAL FINDINGS: none [facility]: DVT/GI ppx: bilateral SCDs/PPI Fina Padilla MD, MSc, FACS 07/30/2023 1:35 PM * Yonas Baron MD - 07/30/2023 12:24 PM EST Neurosurg progress note VITALS: BP (!) 110/53 Pulse 71 Temp 98.6 F (37 C) Resp 17 Ht 1.753 m (5' 9) Wt 77.1 kg (170 lb) SpO2 94% BMI 25.10 kg/m 24HR INTAKE/OUTPUT: Intake/Output Summary (Last 24 hours) at 07/30/2023 1224 Last data filed at 07/30/2023 0840 Gross per 24 hour Intake 730 ml Output 125 ml Net 605 ml MRI THORACIC SPINE WO CONTRAST Result Date: 07/27/2023 EXAMINATION: MRI OF THE THORACIC SPINE WITHOUT CONTRAST 07/27/2023 8:36 pm TECHNIQUE: Multiplanar multisequence MRI of the thoracic spine was performed without the administration of intravenous contrast. COMPARISON: None. HISTORY: ORDERING SYSTEM PROVIDED HISTORY: spinal tenderness TECHNOLOGIST PROVIDED HISTORY: Reason for exam:->spinal tenderness What reading provider will be dictating this exam?->CRC FINDINGS: BONES/ALIGNMENT: There is normal alignment of the spine. There is mild anterior wedging of the T9 vertebral body, a mild old compression fracture. The rest of the vertebral bodies are normal in height. The bone marrow signal appears unremarkable. SPINAL CORD: No abnormal cord si gnal is seen. SOFT TISSUES: No paraspinal mass identified. DEGENERATIVE CHANGES: T6-7: Minimal right paramedian disc bulging without contact with the anterior thoracic cord, cord flattening, or spinal stenosis. No foraminal stenosis. Normal disc height. T8-9: Mild right lateral disc bulge associated with minimal flattening of the right anterior thoracic cord. No contact with the thoracic cord when the patient is supine, but the flattening indicates contact in the past or possibly when the patient is upright. No spinal stenosis. No foraminal stenosis. Normal disc height. T9-10: Normal disc. Mild right ligamentum flavum hypertrophy. T10-11: No disc bulge or herniation. No spinal stenosis. Moderate loss of disc height from disc degenerative disease. 1. No sign of acute osseous injury to the thoracic spine. 2. Mild old compression fracture of T9. 3. No sign of spinal stenosis. 4. Mild right lateral T8-9 disc bulge associated with mild flattening of the right anterior thoracic cord. MRI LUMBAR SPINE WO CONTRAST Result Date: 07/27/2023 EXAMINATION: MRI OF THE LUMBAR SPINE WITHOUT CONTRAST, 07/27/2023 8:35 pm TECHNIQUE: Multiplanar multisequence MRI of the lumbar spine was performed without the administration of intravenous contrast.COMPARISON: CT of the lumbar spine from today. HISTORY: ORDERING SYSTEM PROVIDED HISTORY: spinal tenderness TECHNOLOGIST PROVIDED HISTORY: Reason for exam:->spinal tenderness What reading providerwill be dictating this exam?->CRC FINDINGS: BONES/ALIGNMENT: There is normal alignment of the spine. There is an acute mild L2 compression fracture with moderate superior endplate fracture and moderate edema throughout the upper half of the vertebral body. No retropulsion of the posterior marginof L2, with no associated spinal canal narrowing. No additional compression fracture. No additionalmarrow signal abnormality. SPINAL CORD: The conus terminates normally. SOFT TISSUES: No paraspinal mass identified. L1-L2: There is no significant disc herniation, spinal canal stenosis or neural foraminal narrowing. L2-L3: Mild diffuse disc bulging without spinal stenosis. Moderate right and mild left foraminal zone disc bulging without contact with the exiting nerve roots. Normal disc height. L3-L4: Mild broad disc herniation with a small amount of disc material extruded inferiorly from the disc space, without spinal stenosis. Moderate left and mild right foraminal zone disc bulging withoutcontact with the exiting nerve roots. Mild loss of disc height from disc degenerative disease. L4-L5: Mild diffuse disc bulging without spinal stenosis. Mild bilateral foraminal zone disc bulging without contact with the exiting nerve roots. Mild loss of disc height from disc degenerative disease. L5-S1: Minimal diffuse disc bulging without spinal stenosis. Mild right foraminal zone disc bulging without contact with the exiting nerve root. Normal left neural foramen. Normal disc height. Acute mild L2 compression fracture. No sign of any additional compression fractures. No signs of spinal stenosis or nerve root impingement. CT CERVICAL SPINE WO CONTRAST Result Date: 07/27/2023 EXAMINATION: CT OF THE CERVICAL SPINE WITHOUT CONTRAST 07/27/2023 1:23 pm TECHNIQUE: CT of the cervical spine was performed without the administration of intravenous contrast. Multiplanar reformatted images are provided for review. Automated exposure control, iterative reconstruction, and/or weight based adjustment of the mA/kV was utilized to reduce the radiation dose to as low as reasonably achievable. COMPARISON: None. HISTORY: ORDERING SYSTEM PROVIDED HISTORY: trauma TECHNOLOGIST PROVIDED HISTORY: Reason for exam:->trauma Decision Support Exception - unselect if not a suspected or confirmed emergency medical condition->Emergency Medical Condition (MA) What reading provider will be d ictating this exam?->CRC FINDINGS: BONES/ALIGNMENT: There is no acute fracture or traumatic malalignment. DEGENERATIVE CHANGES: Mild loss of disc height with small disc osteophyte complex at C5-6.Mild central canal stenosis at C5-6. Moderate right and mild left neural foraminal stenoses at C5-6. SOFT TISSUES: There is no prevertebral soft tissue swelling. 1. No fracture or joint dislocation is seen. 2. Degenerative changes, as described. CT LUMBAR SPINE WO CONTRAST Result Date: 07/27/2023 EXAMINATION: CT OF THE LUMBAR SPINE WITHOUT CONTRAST 07/27/2023 TECHNIQUE: CT of the lumbar spine was performed without the administration of intravenous contrast. Multiplanar reformatted images are provided for review. Adjustment of mA and/or kV according to patient size was utilized. Automated exposure control, iterative reconstruction, and/or weight based adjustment of the mA/kV was utilized toreduce the radiation dose to as low as reasonably achievable. COMPARISON: None HISTORY: ORDERING SYSTEM PROVIDED HISTORY: trauma TECHNOLOGIST PROVIDED HISTORY: Reason for exam:->trauma Decision Support Exception - unselect if not a suspected or confirmed emergency medical condition->EmergencyMedical Condition (MA) What reading provider will be dictating this exam?->CRC FINDINGS: BONES/ALIGNMENT: Age-indeterminate, possibly acute compression fracture deformity in the L2 vertebral body with approximately 30% loss of height. The remainder of the vertebral body heights are preserved. Nolytic or blastic lesion. DEGENERATIVE CHANGES: Small disc bulges at L2-3 and L3-4 result in mild central canal stenoses. Mild to moderate neural foraminal stenoses at L4-5. SOFT TISSUES/RETROPERITONEUM: No paraspinal mass is seen. 1. Age-indeterminate, possibly acute compression fracture deformity in the L2 vertebral body with approximately 30% loss of height. If indicated, MRI may be obtained for further evaluation. 2. Mild degenerative changes. CT THORACIC SPINE WO CONTRAST Result Date: 07/27/2023 EXAMINATION: CT OF THE THORACIC SPINE WITHOUT CONTRAST 07/27/2023 1:23 pm: TECHNIQUE: CT of the thoracic spine was performed without the administration of intravenous contrast. Multiplanar reformattedimages are provided for review. Automated exposure control, iterative reconstruction, and/or weightbased adjustment of the mA/kV was utilized to reduce the radiation dose to as low as reasonably achievable. COMPARISON: None. HISTORY: ORDERING SYSTEM PROVIDED HISTORY: trauma TECHNOLOGIST PROVIDED HISTORY: Reason for exam:->trauma What reading provider will be dictating this exam?->CRC FINDINGS: BONES/ALIGNMENT: There is normal alignment of the spine. The vertebral body heights are maintain ed. No osseous destructive lesion is seen. DEGENERATIVE CHANGES: Prominent loss of disc height at T10-11. No significant central canal or neural foraminal stenosis evident by CT. SOFT TISSUES: No paraspinal mass is seen. No fracture or joint dislocation. CT HEAD WO CONTRAST Result Date: 07/27/2023 EXAMINATION: CT OF THE HEAD WITHOUT CONTRAST 07/27/2023 1:23 pm TECHNIQUE: CT of the head was performed without the administration of intravenous contrast. Automated exposure control, iterative reconstruction, and/or weight based adjustment of the mA/kV was utilized to reduce the radiation dose to as low as reasonably achievable. COMPARISON: None. HISTORY: ORDERING SYSTEM PROVIDED HISTORY: Trauma TECHNOLOGIST PROVIDED HISTORY: Has a code stroke or stroke alert been called?->No Reason for exam:->Trauma Decision Support Exception - unselect if not a suspected or confirmed emergency medical condition->Emergency Medical Condition ([place]) What reading provider will be dictating this exam?->CRC FINDINGS: BRAIN/VENTRICLES: There is no acute intracranial hemorrhage, mass effect or midline shift. No abnormal extra-axial fluid collection. The orozco- white differentiation is maintained without evidence of an acute infarct. There is no evidence of hydrocephalus. ORBITS: The visualized portion of the orbits demonstrate no acute abnormality. SINUSES: The visualized paranasal sinuses and mastoid air cells demonstrate no acute abnormality. SOFT TISSUES/SKULL: No acute abnormality of thevisualized skull or soft tissues. No skull fracture or acute intracranial abnormality. XR HIP BILATERAL W AP PELVIS (2 VIEWS) Result Date: 07/27/2023 EXAMINATION: ONE XRAY VIEW OF THE PELVIS AND TWO XRAY VIEWS OF EACH OF THE BILATERAL HIPS 0:32 am COMPARISON: None. HISTORY: ORDERING SYSTEM PROVIDED HISTORY: trauma, fall TECHNOLOGIST PROVIDED HISTORY: Reason for exam:- >trauma, fall What reading provider will be dictating this exam?->CRC FINDINGS: SI joints symmetric and without widening. No displaced pelvic ring fracture. Degenerative changes of the bilateral hips overall mild involvement without acute irregularity or fracture, dislocation or subluxation. Dedicated AP and frog-lateral views of the bilateral hips without irregularity 1. No fracture or dislocation. 2. Mild degenerative changes of the bilateral hips. XR CHEST PORTABLE Result Date: 07/27/2023 EXAMINATION: ONE XRAY VIEW OF THE CHEST 07/27/2023 10:32 am COMPARISON: None. HISTORY: ORDERING SYSTEM PROVIDED HISTORY: fall TECHNOLOGIST PROVIDED HISTORY: Reason for exam:->fall What reading provider will be dictating this exam?->CRC FINDINGS: The lungs are without acute focal process. Thereis no effusion or pneumothorax. The cardiomediastinal silhouette is without acute process. The osseous structures are without acute process. No acute process. CBC: Lab Results Component Value Date/Time WBC 6.1 07/30/2023 07:39 AM RBC 2.89 07/30/2023 07:39 AM HGB 9.2 07/30/2023 07:39 AM HCT 28.1 07/30/2023 07:39 AM MCV 97.2 07/30/2023 07:39 AM MCH 31.8 07/30/2023 07:39 AM MCHC 32.7 07/30/2023 07:39 AM RDW 20.0 07/30/2023 07:39 AM PLT 46 07/29/2023 04:30 AM MPV 10.5 07/30/2023 07:39 AM BMP: Lab Results Component Value Date/Time NA 132 07/30/2023 07:39 AM K 3.7 07/30/2023 07:39 AM CL 99 07/30/2023 07:39 AM CO2 23 07/30/2023 07:39 AM BUN 13 07/30/2023 07:39 AM LABALBU 3.0 07/30/2023 07:39 AM CREATININE 0.8 07/30/2023 07:39 AM CALCIUM 7.6 07/30/2023 07:39 AM LABGLOM >60 07/30/2023 07:39 AM GLUCOSE 108 07/30/2023 07:39 AM thiamine 100 mg Oral Daily folic acid 1 mg Oral Daily furosemide 40 mg Oral Daily lactulose 40 g Oral 4x Daily pantoprazole 40 mg Oral Daily [Held by provider] propranolol 10 mg Oral BID rifAXIMin 400 mg Oral BID spironolactone 25 mg Oral Daily sodium chloride flush 5-40 mL IntraVENous 2 times per day sennosides-docusate sodium 1 tablet Oral BID methocarbamol 500 mg Oral 4x Daily Remains awake and alert oriented friendly and cooperative Assessment: Patient Active Problem List Diagnosis Fall Closed fracture of second lumbar vertebra (HCC) Plan: May be discharged from neurosurgery standpoint TLSO brace when out of bed for 2 to 3 months continue current care Yonas Baron MD MChristina. * Mckinley Lizama MD - 07/30/2023 10:25 AM EST Afebrile today BC's sent Has active COVID Pulse Ox 94 on RA for now Hx of cirrhosis on Rifaximine and Lactulose Supportive care for now * Luis Downing DO - 07/30/2023 9:37 AM EST GENERAL SURGERY DAILY PROGRESS NOTE 07/30/2023 Subjective: Pt resting in bed. He is wearing TLSO. Sitter at bedside states he has been getting up frequently to void and had multiple bowel movements. Patient states he is feeling well and is hungry for breakfast. Objective: BP (!) 110/53 Pulse 71 Temp 98.6 F (37 C) Resp 17 Ht 1.753 m (5' 9) Wt 77.1 kg (170 lb) SpO2 94% BMI 25.10 kg/m Gen: alert, oriented, no apparent distress HEENT: NCAT, anicteric CV: RR Pulm: nonlabored breathing on RA Abdomen: soft, nontender, nondistended Extremities: moving all extremities, no peripheral edema Skin: warm and dry Assessment/Plan: 48 y.o. male s/p ground level fall, L2 compression fx from inpatient psychiatric facility Neuro: Patient has been GCS 15, acute pain in posterior/long spine, concern for possible self-harm/recent history thereof Neurosurgery following: TLSO Multimodal pain control including Robaxin, oxycodone panel Will stop IV narcotics, has not needed Avoid scheduled Tylenol in the setting of liver failure Constant observation/safety tray Will need psych consult if patient still admitted on 07/31 to qualify for readmission to [facility] CV: HR near normal limits, no acute issues Pulm: tolerating room air GI: tolerating general diet, compensated liver failure Daily CMP/ammonia/limit hepatotoxic medications Rifaximin, spironolactone and lactulose Renal: no acute issues Home Lasix ID: afebrile, no acute issues Endocrine: no acute issues MSK: no acute issues Heme: Thrombocytopenia in the setting of advanced liver disease, continue to monitor Dispo pending case management discussion; * Milady Keyes RN - 07/29/2023 12:48 PM EST Respiratory panel sent to microbiology * Fina Padilla MD - 07/29/2023 11:14 AM EST [facility] PROGRESS NOTE ATTENDING NOTE TRAUMA MECHANISM: fall Chief Complaint Patient presents with Fall Pt sent in from [facility] after a fall. Pt had an xray and they reported a fracture. [facility] Trauma consult. Injury occurred 07/26 (yesterday). Approximately around noon. Patient reports that he was a ground-level fall near his bed, fell backwards and struck his low lumbar/sacral area along the chair arm. Hethinks he may have hit his head as well, denies any loss of consciousness. Patient states that he currently resides at [facility] which is an inpatient psychiatric facility. He states he has only been there for several days. He reports that the facility did x-rays and a doctor instructed him to betransported to [facility] [place]. Patient denies any new neurological symptoms. States he does have chronic bilateral lower extremity/foot paresthesias. Patient Active Problem List Diagnosis Fall Closed fracture of second lumbar vertebra (HCC) SUBJECTIVE/OVERNIGHT EVENTS: C/o back pain, sleepy Review of Systems Constitutional: Positive for activity change. Negative for appetite change and unexpected weight change. HENT: Negative. Eyes: Negative. Respiratory: Negative. Negative for cough and shortness of breath. Cardiovascular: Negative. Negative for chest pain and leg swelling. Gastrointestinal: Negative. Negative for abdominal distention, abdominal pain, anal bleeding, bloodin stool, constipation, diarrhea, nausea and vomiting. Endocrine: Negative. Genitourinary: Negative. Musculoskeletal: Positive for back pain, gait problem and myalgias. Negative for arthralgias and joint swelling. Skin: Negative. Allergic/Immunologic: Negative. Neurological: Positive for weakness. Negative for dizziness and headaches. Hematological: Negative. Psychiatric/Behavioral: Positive for decreased concentration and sleep disturbance. Negative for confusion. BP 123/71 Pulse 91 Temp (!) 102.5 F (39.2 C) Resp 18 Ht 1.753 m (5' 9) Wt 77.1 kg (170 lb) SpO2 94% BMI 25.10 kg/m Physical Exam Constitutional: Appearance: He is obese. HENT: Head: Normocephalic and atraumatic. Nose: Nose normal. Mouth/Throat: Mouth: Mucous membranes are moist. Pharynx: Oropharynx is clear. Eyes: Extraocular Movements: Extraocular movements intact. Pupils: Pupils are equal, round, and reactive to light. Cardiovascular: Rate and Rhythm: Normal rate and regular rhythm. Pulses: Normal pulses. Heart sounds: Normal heart sounds. Pulmonary: Effort: Pulmonary effort is normal. Breath sounds: Normal breath sounds. Abdominal: General: There is no distension. Palpations: Abdomen is soft. Tenderness: There is no abdominal tenderness. Musculoskeletal: General: No tenderness or signs of injury. Cervical back: Normal range of motion and neck supple. Skin: General: Skin is warm and dry. Neurological: General: No focal deficit present. Comments: Sleepy but will wake up to voice, follows commands ASSESSMENT/PLAN: L2 compression fracture--NSGY following, TLSO brace Chronic liver failure--resume spironolactone, lasix, lactulose Somnolence--check ammonia, start lactulose Hyperammonemia--check daily, c/w lactulose Thrombocytopenia d/t liver failure--hold chemical DVT ppx INCIDENTAL FINDINGS: none [facility]: DVT/GI ppx: bilateral SCDs/PPI Fina Padilla MD, MSc, FACS 07/29/2023 11:14 AM * Tara Jacobsen DO - 07/29/2023 6:16 AM EST GENERAL SURGERY DAILY PROGRESS NOTE 07/29/2023 Subjective: Pt resting in bed. He is wearing TLSO. Sitter at bedside states he has been getting up frequently to void. Objective: BP 119/72 Pulse 77 Temp 98.8 F (37.1 C) (Temporal) Resp 18 Ht 1.753 m (5' 9) Wt 77.1 kg (170 lb) SpO2 94% BMI 25.10 kg/m Gen: alert, oriented, no apparent distress HEENT: NCAT, anicteric CV: RR Pulm: nonlabored breathing on RA Abdomen: soft, nontender, nondistended Extremities: moving all extremities, no peripheral edema Skin: warm and dry Assessment/Plan: 48 y.o. male s/p ground level fall, L2 compression fx from inpatient psychiatric facility Neuro: Patient has been GCS 15, acute pain in posterior/long spine, concern for possible self-harm/recent history thereof Neurosurgery following: TLSO Multimodal pain control including Robaxin, oxycodone panel Will stop IV narcotics, has not needed avoid scheduled Tylenol in the setting of liver failure Constant observation/safety tray CV: HR near normal limits, no acute issues Pulm: tolerating room air GI: tolerating general diet, compensated liver failure Daily CMP/ammonia/limit hepatotoxic medications Rifaximin, spironolactone and lactulose Renal: no acute issues Home Lasix ID: afebrile, no acute issues Endocrine: no acute issues MSK: no acute issues Heme: Thrombocytopenia in the setting of advanced liver disease, continue to monitor * Fina Padilla MD - 07/28/2023 4:21 PM EST [facility] PROGRESS NOTE ATTENDING NOTE TRAUMA MECHANISM: fall Chief Complaint Patient presents with Fall Pt sent in from [facility] after a fall. Pt had an xray and they reported a fracture. HPI Trauma consult. Injury occurred 07/26 (yesterday). Approximately around noon. Patient reports that he was a ground-level fall near his bed, fell backwards and struck his low lumbar/sacral area along the chair arm. Hethinks he may have hit his head as well, denies any loss of consciousness. Patient states that he currently resides at [facility] which is an inpatient psychiatric facility. He states he has only been there for several days. He reports that the facility did x-rays and a doctor instructed him to betransported to the emergency department here at [facility]. Patient denies any new neurological symptoms. States he does have chronic bilateral lower extremity/foot paresthesias. Patient Active Problem List Diagnosis Fall Closed fracture of second lumbar vertebra (HCC) SUBJECTIVE/OVERNIGHT EVENTS: C/o back pain, sleepy Review of Systems Constitutional: Positive for activity change. Negative for appetite change and unexpected weight change. HENT: Negative. Eyes: Negative. Respiratory: Negative. Negative for cough and shortness of breath. Cardiovascular: Negative. Negative for chest pain and leg swelling. Gastrointestinal: Negative. Negative for abdominal distention, abdominal pain, anal bleeding, bloodin stool, constipation, diarrhea, nausea and vomiting. Endocrine: Negative. Genitourinary: Negative. Musculoskeletal: Positive for back pain, gait problem and myalgias. Negative for arthralgias and joint swelling. Skin: Negative. Allergic/Immunologic: Negative. Neurological: Positive for weakness. Negative for dizziness and headaches. Hematological: Negative. Psychiatric/Behavioral: Positive for decreased concentration and sleep disturbance. Negative for confusion. BP 107/65 Pulse 63 Temp 97.7 F (36.5 C) (Temporal) Resp 16 Ht 1.753 m (5' 9) Wt 77.1 kg (170 lb) SpO2 95% BMI 25.10 kg/m Physical Exam Constitutional: Appearance: He is obese. HENT: Head: Normocephalic and atraumatic. Nose: Nose normal. Mouth/Throat: Mouth: Mucous membranes are moist. Pharynx: Oropharynx is clear. Eyes: Extraocular Movements: Extraocular movements intact. Pupils: Pupils are equal, round, and reactive to light. Cardiovascular: Rate and Rhythm: Normal rate and regular rhythm. Pulses: Normal pulses. Heart sounds: Normal heart sounds. Pulmonary: Effort: Pulmonary effort is normal. Breath sounds: Normal breath sounds. Abdominal: General: There is no distension. Palpations: Abdomen is soft. Tenderness: There is no abdominal tenderness. Musculoskeletal: General: No tenderness or signs of injury. Cervical back: Normal range of motion and neck supple. Skin: General: Skin is warm and dry. Neurological: General: No focal deficit present. Comments: Sleepy but will wake up to voice, follows commands ASSESSMENT/PLAN: L2 compression fracture--NSGY following, TLSO brace Chronic liver failure--resume spironolactone, lasix, lactulose Somnolence--check ammonia, start lactulose INCIDENTAL FINDINGS: none [facility]: DVT/GI ppx: bilateral SCDs/PPI Fina Padilla MD, MSc, FACS 07/28/2023 4:21 PM * Cliff Onofre DO - 07/28/2023 12:12 PM EST Trauma Tertiary Survey Admit Date: 07/27/2023 Hospital day 1 CC: Fall, back pain Alcohol pre-screening: Men: How many times in the past year have you had 5 or more drinks in a day? none Women: How many times in the past year have you had 4 or more drinks in a day? NOT applicable How much do you drink on a daily basis? Doesn't-was an alcoholic until 3 years ago Drug Pre-screening: How many times in the past year have you used a recreational drug or used a prescription medicationfor non medical reasons? No Mood Prescreening: During the past two weeks, have you been bothered by little interest or pleasure doing things? No During the past two weeks, have you been bothered by feeling down, depressed or hopeless? No Scheduled Meds: thiamine 100 mg Oral Daily folic acid 1 mg Oral Daily furosemide 40 mg Oral Daily lactulose 40 g Oral 4x Daily pantoprazole 40 mg Oral Daily [Held by provider] propranolol 10 mg Oral BID rifAXIMin 400 mg Oral BID spironolactone 25 mg Oral Daily sodium chloride flush 5-40 mL IntraVENous 2 times per day sennosides-docusate sodium 1 tablet Oral BID methocarbamol 500 mg Oral 4x Daily Continuous Infusions: sodium chloride PRN Meds:HYDROmorphone, sodium chloride flush, sodium chloride, magnesium sulfate, oxyCODONE ORoxyCODONE, ondansetron OR ondansetron, polyethylene glycol Subjective: Comfortable appearing, no new issues over night. Tolerating diet. Awaiting for his brace. Objective: Patient Vitals for the past 8 hrs: BP Temp Temp src Pulse Resp SpO2 07/28/23 0847 107/65 97.7 F (36.5 C) Temporal 63 16 95 % No intake/output data recorded. I/O this shift: In: 120 [P.O.:120] Out: - No past medical history on file. Radiology: MRI THORACIC SPINE WO CONTRAST Final Result 1. No sign of acute osseous injury to the thoracic spine. 2. Mild old compression fracture of T9. 3. No sign of spinal stenosis. 4. Mild right lateral T8-9 disc bulge associated with mild flattening of the right anterior thoracic cord. MRI LUMBAR SPINE WO CONTRAST Final Result Acute mild L2 compression fracture. No sign of any additional compression fractures. No signs of spinal stenosis or nerve root impingement. CT HEAD WO CONTRAST Final Result No skull fracture or acute intracranial abnormality. CT CERVICAL SPINE WO CONTRAST Final Result 1. No fracture or joint dislocation is seen. 2. Degenerative changes, as described. CT LUMBAR SPINE WO CONTRAST Final Result 1. Age-indeterminate, possibly acute compression fracture deformity in the L2 vertebral body with approximately 30% loss of height. If indicated, MRI may be obtained for further evaluation. 2. Mild degenerative changes. CT THORACIC SPINE WO CONTRAST Final Result No fracture or joint dislocation. XR CHEST PORTABLE Final Result No acute process. XR HIP BILATERAL W AP PELVIS (2 VIEWS) Final Result 1. No fracture or dislocation. 2. Mild degenerative changes of the bilateral hips. PHYSICAL EXAM: Central Nervous System Loss of consciousness: No GCS: Eye: 4 - Opens eyes on own Motor: 6 - Follows simple motor commands Verbal: 5 - Alert and oriented Neuromuscular blockade: Yes Pupil size: Left 4 mm Right 4 mm Pupil reaction: Yes Wiggles fingers: Left Yes Right Yes Wiggles toes: Left Yes Right Yes Hand grasp: Left Present Right Present Plantar flexion: Left Present Right Present PHYSICAL EXAM General: No apparent distress, comfortable, eccentric appearing, blue/nails HEENT: Trachea midline, no masses, Pupils equal round, hdez Chest: Respiratory effort was normal with no retractions or use of accessory muscles. Cardiovascular: Extremities warm, well perfused Abdomen: Soft and non distended. No tenderness, guarding, rebound, or rigidity Extremities: Moves all 4 extremeties, No pedal edema Spine: Spine Tenderness ROM Cervical 0/10 Normal Thoracic 5/10 Decreased to pain Lumbar 8/10 Decreased to pain Musculoskeletal: Joint Tenderness Swelling ROM Right shoulder Absent absent normal Left shoulder absent absent normal Right elbow absent absent normal Left elbow absent absent normal Right wrist absent absent normal Left wrist absent absent normal Right hand grasp Absent absent normal Left hand grasp absent absent normal Right hip absent absent normal Left hip absent absent normal Right knee Absent absent normal Left knee absent absent normal Right ankle absent absent normal Left ankle absent absent normal Right foot Absent absent normal Left foot absent absent normal CONSULTS: Neurosurgery PROCEDURES: PIV INJURIES: Principal Problem: Fall Active Problems: Closed fracture of second lumbar vertebra (HCC) Resolved Problems: * No resolved hospital problems. * Assessment/Plan: 48-year-old male, ground-level fall, L2 compression fracture, from inpatient psychiatric facility Neuro: Patient has been GCS 15, acute pain in posterior/long spine, concern for possible self-harm/recent history thereof Neurosurgery following: TLSO Multimodal pain control including Robaxin, oxycodone panel Will stop IV narcotics, has not needed avoid scheduled Tylenol in the setting of liver failure Constant observation/safety tray CV: HR near normal limits, no acute issues Pulm: tolerating room air GI: tolerating general diet, compensated liver failure Daily CMP/ammonia/limit hepatotoxic medications Rifaximin, spironolactone and lactulose Renal: no acute issues Home Lasix ID: afebrile, no acute issues Endocrine: no acute issues MSK: no acute issues Heme: Thrombocytopenia in the setting of advanced liver disease, continue to monitor Bowel regime: senna, lactulose Pain control/Sedation: as above DVT prophylaxis: SCD GI: diet regular Glucose protocol: CMP Mouth/Eye care: per patient. Hickman: none Code status: Full Code Patient/Family update: As available Disposition: general floor Up and out of bed when has TLSO, work with PT, when pain is controlled and able to ambulate well, likely discharge back to [facility] * Carla Bose OT - 07/28/2023 11:45 AM EST OCCUPATIONAL THERAPY INITIAL EVALUATION [facility] [address], [place] Date:07/28/2023 Patient Name: Alex Rojo : 1975 Room: [address] [place], [place] [address] Evaluating OT:Carla Bose, KATYR/L License # [id number] Referring Provider: Cliff Onofre DO Specific Provider Orders/Date: OT evaluation & treatment Diagnosis: Fall, initial encounter [W19.XXXA] Closed fracture of second lumbar vertebra, unspecified fracture morphology, initial encounter ([facility])[S32.029A] Fall (on) (from) other stairs and steps, initial encounter [W10.8XXA] Acute L2 compression fx. Pertinent Medical History: has no past medical history on file. Surgery: none this admit Past Surgical History: has no past surgical history on file. Precautions: Fall Risk, neutral spine, TLSO per NS, global safety officer, Supervision for safety Assessment of current deficits [x] Functional mobility [x]ADLs [x] Strength [x]Cognition [x] Functional transfers [x] IADLs [x] Safety Awareness [x]Endurance [x] Fine Coordination [x] Balance [] Vision/perception [x]Sensation []Gross Motor Coordination [] ROM [] Delirium [] Motor Control OT PLAN OF CARE OT POC based on physician orders, patient diagnosis and results of clinical assessment Frequency/Duration: 2-4 days/wk for 2 weeks PRN Specific OT Treatment Interventions to include: Instruction/training on adapted ADL techniques and AE recommendations to increase functional independence within precautions Training on energy conservation strategies, correct breathing pattern and techniques to improve independence/tolerance for self-care routine Functional transfer/mobility training/DME recommendations for increased independence, safety, and fall prevention Patient/Family education to increase follow through with safety techniques and functional independence Recommendation of environmental modifications for increased safety with functional transfers/mobility and ADLs Cognitive retraining/development of therapeutic activities to improve problem solving, judgement, memory, and attention for increased safety/participation in ADL/IADL tasks Therapeutic exercise to improve motor endurance, ROM, and functional strength for ADLs/functional transfers Therapeutic activities to facilitate/challenge dynamic balance, stand tolerance for increased safety and independence with ADLs Therapeutic activities to facilitate gross/fine motor skills for increased independence with ADLs Positioning to improve skin integrity, interaction with environment and functional independence Recommended Adaptive Equipment: TBD Home Living: Pt from [facility], prior to that was a LT resident at [facility] [place] [facility]. Bathroom setup: accessible Equipment owned: none Prior Level of Function: Ind. with ADLs , some assist with IADLs; ambulated without A.D. Driving: none active Occupation: none stated Pain Level: 7/10; back pain Cognition: A&O: x3; Follows 2 step directions Memory: F Sequencing: F Problem solving: F Judgement/safety: F Functional Assessment: AM-PAC Daily Activity Raw Score: Initial Eval Status Date: 07-28-23 Treatment Status Date: STGs = LTGs Time frame: 10-14 days Feeding Ind. Mod I/ Ind Grooming Set up Modified Wilkinson/Sup UB Dressing Max A for TLSO Precautions reviewed. Supervision LB Dressing Min/mod A figure 4 technique seated EOB to allan B socks Supervision Bathing Min A With sim. figure 4 tech. Supervision Toileting NT Modified Wilkinson/Sup Bed Mobility Logroll: Sup Supine to sit: SBA Sit to supine: SBA Supine to sit: Modified Wilkinson/Sup Sit to supine: Modified Wilkinson/Sup Functional Transfers SBA/Sup with sit <> stand, SPT without A.D. Modified Wilkinson/Sup Functional Mobility SBA/Sup without A.D. > functional home distances Modified Wilkinson/Sup Balance Sitting: Static: Sup Dynamic:SBA/Sup Standing: SBA/Sup Activity Tolerance F G Visual/ Perceptual Glasses: yes Vitals spO2 on RA & HR WFL WFL Hand Dominance R AROM (PROM) Strength Additional Info: RUE WFL WFL good clay products glazer and wfl FMC/dexterity noted during ADL tasks LUE WFL WFL good clay products glazer and wfl FMC/dexterity noted during ADL tasks Hearing: WFL Sensation: No c/o numbness or tingling Tone: WFL Edema: none noted BUE Comments: Upon arrival patient supine in bed, agreeable to OT, cleared by Nursing & NS Dr. Baron. Therapist facilitated bed mobility/brace training/functional transfer/mobility training/ ADLs with focus on safety, technique & precautions. Pt. Instructed RE: safe transfers/mobility, ADLs, role of OT, treatment plan, recs., prec. At end of session, patient returned to bed with alarm intact & global safety officer present, all needs met, RN notified, with call light and phone within reach, all lines and tubes intact. Overall patient demonstrated decreased strength, balance, independence& safety during completion of ADL/functional transfer/mobility tasks. Pt would benefit from continued skilled OT to increase safety and independence with completion of ADL/IADL tasks for functional independence and quality of life. Treatment: OT treatment provided this date includes: Instruction/training on safety and adapted techniques for completion of ADLs: to increase Wilkinson in self care Instruction/training on safe functional mobility/transfer techniques: with focus on safety, technique & precautions Instruction/training on energy conservation/work simplification for completion of ADLs: techniques to increase Wilkinson with self care ADLs & iADLs, work simplification to improve endurance Proper Positioning/Alignment: for optimal healing, skin integrity to prevent breakdown, decrease edema Skilled monitoring of vitals: to include BP, spO2 & HR during session Sitting/standing Balance/Tolerance- to increased balance & activity tolerance during ADLs as well as facilitate proper posture and/or positioning. Rehab Potential: Good for established goals Patient / Family Goal: to return to PLOF Patient and/or family were instructed on functional diagnosis, prognosis/goals and OT plan of care.Demonstrated F+ understanding. Eval Complexity: Low Time In: 11:10 Time Out: 11:35 Total Treatment Time: 10 Min Units OT Eval Low 19214 x OT Eval Medium 69301 OT Eval High 46430 OT Re-Eval 84042 Therapeutic Ex 44594 Therapeutic Activities 64289 ADL/Self Care 77737 10 1 Orthotic Management 53968 Manual 49478 Neuro Re-Ed 77851 Non-Billable Time Evaluation Time additionally includes thorough review of current medical information, gathering information on past medical history/social history and prior level of function, interpretation of standardized testing/informal observation of tasks, assessment of data and development of plan of care and goals. Carla Bose, OTR/L License # [id number] * Alex Newton PT - 07/28/2023 11:24 AM EST Images from the original note were not included. Physical Therapy Initial Evaluation Name: Alex Rojo : 1975 Date of Service: 07/28/2023 Evaluating PT: Alex Newton PT [id number] Referring provider/PT Order: PT Eval and Treat 07/27/232214 PT evaluation and treat Start: 07/27/232214, End: 07/27/232214, ONE TIME, Standing Count: 1 Occurrences, R Comments: After in TLSO and cleared by Cliff Staley DO Room #: 5405/5405-A Diagnosis: Fall, initial encounter [W19.XXXA] Closed fracture of second lumbar vertebra, unspecified fracture morphology, initial encounter ([facility])[S32.029A] Fall (on) (from) other stairs and steps, initial encounter [W10.8XXA] PMHx/PSHx: @PMHH@ has no past surgical history on file. Procedure/Surgery: none Precautions: Falls, FWB (full weight bearing) Soft TLSO Equipment Needs: None, SUBJECTIVE: Patient admitted from [facility] however he is LTC at [facility] in [place], [place]. Indgait without device. e Equipment owned: None, OBJECTIVE: Initial Evaluation Date: 07/28/23 Treatment Short Term/ Dude Wrangler Goals AM-PAC 6 Clicks Was pt agreeable to Eval/treatment? Yes Does pt have pain? minimal Bed Mobility Rolling: Sup Supine to sit: Sup Sit to supine: Sup Scooting: Sup Just cues to adhere to spinal neutral mechanics. Rolling: Ind Supine to sit: Ind Sit to supine: Ind Scooting: Ind Transfers Sit to stand: SBA Stand to sit: SBA Stand pivot: SBA Sit to stand: Ind Stand to sit: Ind Stand pivot: Ind Ambulation 100 feet with None SBA No LOB. 200 feet with Ind Stair negotiation: ascended and descended 4 steps with 1 rail SBA 10 steps with Ind Strength/ROM: See OT note for BUE ROM and strength RLE grossly 4+/5 LLE grossly 4+/5 RLE AROM WFL LLE AROM WFL Balance: Static Sitting: Ind Dynamic Sitting: Ind Static Standing: SBA Dynamic Standing: SBA Patient is Alert & Oriented x person, place, time, and situation and follows directions Sensation: Pt denies numbness and tingling to extremities Edema: none Therapeutic Exercises: Functional activity as stated above and including gait without assistive deice Patient education Pt educated on role of Physical Therapy, risks of immobility, safety and plan of care, importance of mobility while in hospital , and spinal precautions and use of call light for safety. Patient response to education: Pt verbalized understanding Pt demonstrated skill Pt requires further education in this area Yes Yes Yes ASSESSMENT: Conditions Requiring Skilled Therapeutic Intervention: [x]Decreased strength [x]Decreased ROM [x]Decreased functional mobility [x]Decreased balance [x]Decreased endurance [x]Decreased posture []Decreased sensation []Decreased coordination []Decreased vision [x]Decreased safety awareness []Increased pain Comments: RN cleared patient for participation in therapy session. Patient was seen this date for PT evaluation. Patient was agreeable to intervention. Results of the functional assessment are noted above. Upon entering the room patient was found supine in bed. TLSO was already donned by certified professional controller. Spinal neutral mechanics explained with fair understanding. Cues to transition to EOB. Sat EOB x 5 minutes toincrease dynamic sitting balance and activity tolerance. STS and gait completed into hallway. Also completed steps. No LOB noted with gait. At end of session, patient in bed with call light and phone within reach, all lines and tubes intact, nursing notified. This patient can benefit from the continuation of skilled PT to maximize functional level and return to PLOF. Treatment: Patient completed and was instructed in the following treatment: Bed mobility training - pt given verbal and tactile cues to facilitate proper sequencing and safetyduring rolling and supine>sit as well as provided with physical assistance to complete task STS and transfer training - educated on hand/foot placement, safety, and sequencing during STS. Gait training - verbal cues for, upright posture, and safety during 90 and 180 degree turns during gait Education regarding use of call light for safety, spinal neutral mechanics, and application of TLSO. Skillful positioning in bed to protect skin/joint integrity. Vitals and symptoms were closely monitored throughout session. Pt's/ family goals Return Home Prognosis is good for reaching above PT goals. Patient and or family understand(s) diagnosis, prognosis, and plan of care. yes, PHYSICAL THERAPY PLAN OF CARE: PT POC is established based on physician order and patient diagnosis Diagnosis: Fall, initial encounter [W19.XXXA] Closed fracture of second lumbar vertebra, unspecified fracture morphology, initial encounter ([facility])[S32.029A] Fall (on) (from) other stairs and steps, initial encounter [W10.8XXA] Specific instructions for next treatment: Increase ambulation distance and Review spinal precautions Current Treatment Recommendations: [x] Strengthening to improve independence with functional mobility [x] ROM to improve independence with functional mobility [x] Balance Training to improve static/dynamic balance and to reduce fall risk [x] Endurance Training to improve activity tolerance during functional mobility [x] Transfer Training to improve safety and independence with all functional transfers [x] Gait Training to improve gait mechanics, endurance and asses need for appropriate assistive device [x] Stair Training in preparation for safe discharge home and/or into the community when appropriate [] Positioning to prevent skin breakdown and contractures [x] Safety and Education Training [] Patient/Caregiver Education [] HEP [] Gait Team to be added to POC [] Other PT correction treatment goals are located in above grid Frequency of treatments: 2-5x/week x 1-2 weeks. Time in 1100 Time out 1125 Total Treatment Time 10 minutes Evaluation Time includes thorough review of current medical information, gathering information on past medical history/social history and prior level of function, completion of standardized testing/informal observation of tasks, assessment of data and education on plan of care and goals. CPT codes: [x] Low Complexity PT evaluation 53582 [] Moderate Complexity PT evaluation 13299 [] High Complexity PT evaluation 32209 [] PT Re-evaluation 60028 [] Gait training 91626 - minutes [] Manual therapy 38305 minutes [x] Therapeutic activities 74527 -10 minutes [] Therapeutic exercises 42749 - minutes [] Neuromuscular reeducation 40549 minutes Alex Newton, PT [id number] * Radha Delcid, PENNY - 07/28/2023 8:55 AM EST Urine specimen sent to lab * Carla Bose, KATY - 07/28/2023 8:26 AM EST OCCUPATIONAL THERAPY TREATMENT NOTE [facility] OT BEDSIDE TREATMENT NOTE Date:07/28/2023 Patient Name: Alex Rojo : 1975 Room: [address] [place] [address]-A OT orders received & appreciated, chart reviewed, currently awaiting TLSO & NS consult. Will follow. Thank you, Carla Bose, OTR/L License # [id number] * Mckinley Zaidi RN - 07/28/2023 4:57 AM EST The Prothetist /Othotist has been informed through FAX on the issue of this patient need for TLSO. The Neuro. Surgeon has also been informed on need for consult. * Saul Rdz RN - 07/27/2023 11:40 PM EST 4 Eyes Skin Assessment NAME: Alex Rojo DATE OF : 1975 The patient is being assessed for Admission I agree that at least one RN has performed a thorough Head to Toe Skin Assessment on the patient. ALL assessment sites listed below have been assessed. Areas assessed by both nurses: Head, Face, Ears, Shoulders, Back, Chest, Arms, Elbows, Hands, Sacrum. Buttock, Coccyx, Ischium, Legs. Feet and Heels, and Under Medical Devices Does the Patient have a Wound? No noted wound(s) Julio Prevention initiated by RN: Yes Wound Care Orders initiated by RN: No Pressure Injury (Stage 3,4, Unstageable, DTI, NWPT, and Complex wounds) if present, place Wound referral order by RN under ASSISTANT COMMISSIONER: No New Ostomies, if present place, Ostomy referral order under ASSISTANT COMMISSIONER: No Nurse 1 eSignature: SHARE this note so that the co-signing nurse can place an eSignature Nurse 2 eSignature: * Amanda Goel - 07/27/2023 6:54 PM EST MRI screening form required to schedule mri exam, thank you. documented in this [facility] Discharge instructions* Discharge Instructions* Tara Jacobsen DO - 07/28/2023 1:40 PM EST Images from the original note were not included. TRAUMA SERVICES DISCHARGE INSTRUCTIONS Call [phone], option 2, for any questions/concerns and for follow-up appointment as needed Please follow the instructions checked below: Please follow-up with your primary care provider. ACTIVITY INSTRUCTIONS Increase activity as tolerated No heavy lifting or strenuous activity Take your incentive spirometer home and use 4-6 times/day [x] No driving until cleared by providers WOUND/DRESSING INSTRUCTIONS: You may shower. No sitting in bath tub, hot tub or swimming until cleared by physician. Ice to areas of pain for first 24 hours. Heat to areas of pain after that. Wash areas of lacerations/abrasions with soap & water. Rinse well. Pat dry with clean towel. Apply thin layer of Bacitracin, Neosporin, or triple antibiotic cream to affected area 2-3 times per day. Keep wounds clean and dry. [] Sutures/Anthony are to be removed MEDICATION INSTRUCTIONS Take medication as prescribed. When taking pain medications, you may experience dizziness or drowsiness. Do not drink alcohol or drive when taking these medications. You may experience constipation while taking pain medication. You may take over the counter stool softeners such as docusate (Colace), sennosides S (Senokot-S), or Miralax. [] You may take Ibuprofen (over the counter) as directed for mild pain. --You may take up to 800mg every 8 hours for pain, please take with food or milk. [] You may take acetaminophen (Tylenol) products. Do NOT take more than 4000mg of Tylenol in 24h. [] Do not take any other acetaminophen (Tylenol) products if you are taking Percocet or [place], as these contain Tylenol. --Do NOT take more than 4000mg of Tylenol in 24h. OPIOID MEDICATION INSTRUCTIONS Read the medication guide that is included with your prescription. Take your medication exactly as prescribed. Store medication away from children and in a safe place. Do NOT share your medication with others. Do NOT take medication unless it is prescribed for you. Do NOT drink alcohol while taking opioids (I.e., [place], Percocet, Oxycodone, etc). Discuss with the Trauma Clinic staff if the dose of medication you are taking does not control yourpain and any side effects that you may be having. CALL 911 OR YOUR LOCAL EMERGENCY SERVICE: --If you take too much medication --If you have trouble breathing or shortness of breath --A child has taken this medication. WORK: You may not return to work until you receive follow-up with the Trauma Clinic or clearance by all consultants. Call the trauma clinic for any of the following or for questions/concerns; --fever over 101F --redness, swelling, hardness or warmth at the wound site(s). --Unrelieved nausea/vomiting --Foul smelling or cloudy drainage at the wound site(s) --Unrelieved pain or increase in pain --Increase in shortness of breath Follow-up: Trauma Clinic: --press option 2 Surgical/Trauma Clinic - [facility] [address] [place] [address] [employer] is a secure online portal that allows you to access your electronic medical record and sendmessages to your doctor directly without going to the clinic or picking up the phone. You can also access your test results, communicate with your doctor, pay online, manage your appointments, and request prescription refills. To sign up for [employer], please scan the QR code below. TRAUMA CLINIC FOLLOW UP INSTRUCTIONS Please call to schedule your appointment. [phone] Where we are located: Surgical/Trauma Clinic - Station F [address] [place], [place] [address] The Trauma Clinic is in the Medical Office Building on [facility]. Turn down the street with the parking garage, [facility]. Go past the garage and make the first rightat the stop sign. The building is on the right-hand side. The Clinic is on the 2nd floor, station F. Parking Instructions: The parking lot is next the building on the corner of [facility]. Handicap parking is located in the drive up wrap in front of our building. * Discharge Instr - BREE* Sloane Serrato, RN - 08/08/2023 10:51 AM EST Continuity of Care Form Patient Name: Alex Rojo : 1975 Admit date: 07/27/2023 Discharge date: Code Status Order: Full Code Advance Directives: Admitting Physician: Alex Nogueira MD PCP: No primary care provider on file. Discharging Nurse: Discharging Hospital Unit/Room#: 5405/5405-A Discharging Unit Phone Number: Emergency Contact: Extended Emergency Contact Information Primary Emergency Contact: yana adler Mobile Relation: Legal Guardian [employer] Processing Supervisor needed? No Past Surgical History: No past surgical history on file. Immunization History: There is no immunization history on file for this patient. Active Problems: Patient Active Problem List Diagnosis Code Fall W19.XXXA Closed fracture of second lumbar vertebra (HCC) S32.029A Psychosis (HCC) F29 Isolation/Infection: Isolation Droplet Plus Patient Infection Status Infection Onset Added Last Indicated Last Indicated By Review Planned Expiration Resolved Resolved By COVID-19 07/29/23 07/29/23 07/29/23 Respiratory Panel, Molecular, with COVID-19 (Restricted: peds pts or suitable admitted adults) 08/08/23 08/12/23 Nurse Assessment: Last Vital Signs: BP 124/70 Pulse 83 Temp 98.2 F (36.8 C) (Temporal) Resp 18 Ht 1.753 m (5'9.02) Wt 80.5 kg (177 lb 8 oz) SpO2 100% BMI 26.20 kg/m Last documented pain score (0-10 scale): Pain Level: 7 Last Weight: Wt Readings from Last 1 Encounters: 08/07/23 80.5 kg (177 lb 8 oz) Mental Status: oriented, alert, coherent, logical, and able to concentrate and follow conversation IV Access: - None Nursing Mobility/ADLs: Walking Independent Transfer Independent Bathing Independent Dressing Independent Toileting Independent Feeding Independent Conservation Agent Assisted Med Delivery whole Wound Care Documentation and Therapy: Elimination: Continence: Bowel: Yes Bladder: Yes Urinary Catheter: None Colostomy/Ileostomy/Ileal Conduit: No Date of Last BM: Intake/Output Summary (Last 24 hours) at 08/08/2023 1051 Last data filed at 08/08/2023 0900 Gross per 24 hour Intake 224 ml Output -- Net 224 ml I/O last 3 completed shifts: In: 480 [P.O.:480] Out: - Safety Concerns: At Risk for Falls Impairments/Disabilities: None Nutrition Therapy: Current Nutrition Therapy: - Oral Diet: General Routes of Feeding: Oral Liquids: No Restrictions Daily Fluid Restriction: no Last Modified Barium Swallow with Video (Video Swallowing Test): not done Treatments at the Time of Hospital Discharge: Respiratory Treatments: Oxygen Therapy: is not on home oxygen therapy. Ventilator: - No ventilator support Rehab Therapies: Physical Therapy and Occupational Therapy Weight Bearing Status/Restrictions: No weight bearing restrictions Other Medical Equipment (for information only, NOT a DME order): hospital bed Other Treatments: Patient's personal belongings (please select all that are sent with patient): None RN SIGNATURE: CASE MANAGEMENT/SOCIAL WORK SECTION Inpatient Status Date: Readmission Risk Assessment Score: Readmission Risk Risk of Unplanned Readmission: 11 Discharging to Facility/ Agency Name: Address: Phone: Fax: Dialysis Facility (if applicable) Name: Address: Dialysis Schedule: Phone: Fax: Hollow Handle Knife Assembler/Barrel Tester signature: {Esignature:[id number]} PHYSICIAN SECTION Prognosis: Good Condition at Discharge: Stable Rehab Potential (if transferring to Rehab): Good Recommended Labs or Other Treatments After Discharge: none Physician Certification: I certify the above information and transfer of Alex Rojo is necessary for the continuing treatment of the diagnosis listed and that he requires [facility] Facility for as needed Update Admission H&P: No change in H&P PHYSICIAN SIGNATURE: documented in this encounterB[facility] Miscellaneous Notes* Telephone Encounter - Tricia White - 04/06/2023 11:07 AM EDT Tried to call patient back regarding starting the process for a liver transplant evaluation per thepatients request without success. Left message for the patient to call back. * Telephone Encounter - Rachna Quiroz - 04/03/2023 11:29 AM EDT Patient calls in and requests a call back to get started with liver transplant. Rachna Quiroz documented in this encounterSelect [facility]23 NoteHNO ID: [id number] Author: Brianna Persaud DMD Service: Oral/Maxillofacial Surgery Author Type: Dentist Type: Progress Notes Filed: 09/17/2022 12:49 PM Note Text: Summary: OMFS Progress Note package pick up PROGRESS NOTE SERVICE DATE: 09/17/2022 SERVICE TIME: 12:00pm ASSESSMENT AND PLAN The patient is a 46-tyrc-pff-male who is progressing well 1 day s/p ORIF of the left mandibular body fracture, closed treatment of the right high ramus fracture and extraction of tooth 19. The patient may be discharged home today after he receives a dose of Zosyn IV. We discussed the importance of maintaining his nutrition and that he should be taking in at least 4 supplement drinks a day on top of a pureed diet. We discussed that he needs to be keeping the rubber bands on so that his jaw is not mobile and that they will need replaced when they break. I showed him how to replace the rubber bands and gave him a bag of them and an instrument to place them. I discussed wound care and that he should be cleaning his teeth after every meal. He is to keep the Jobst dressing in place until this evening. I gave him a waterpik and instructed him to use it on the lowest setting to keep his teeth clean while the rubber bands are on. To continue incentive spirometer. Recommended a 1 week course of augmentin 875 BID and doxycycline 100mg BID due to the high risk of infection with his fracture. I provided my office information and Alex is to call for a follow up to be seen in 2-3 days. SUBJECTIVE INTERVAL HPI: This is a 47 year old male who presents with 1 day s/p ORIF of the left mandibular body fracture, closed treatment of the right high ramus fracture and extraction of tooth 19. He is tolerating PO well. Pain is controlled. He is ambulating and voiding without difficulty. MEDICATIONS: Current Facility-Administered Medications Medication Dose Route Frequency enoxaparin 30 mg injection (LOVENOX) 30 mg SUBCUTANEOUS BID NaCl 0.9% iv flush bag 20 mL INTRAVENOUS PRN ondansetron (PF) 4 mg injection (ZOFRAN) 4 mg INTRAVENOUS q 6 H PRN ampicillin-sulbactam iv piggyback 3 g in NaCl 0.9% 100 mL Vial-Bag (UNASYN) 3 g INTRAVENOUS q 8 HR furosemide 40 mg tab(s) (LASIX) 40 mg ORAL DAILY spironolactone 50 mg tab(s) (ALDACTONE) 50 mg ORAL DAILY pantoprazole DR 40 mg tab(s) (PROTONIX) 40 mg ORAL DAILY traZODone 50 mg tab(s) (DESYREL) 50 mg ORAL AT BEDTIME rifAXIMin 550 mg tab(s) (XIFAXAN) 550 mg ORAL BID sertraline 50 mg tab(s) (ZOLOFT) 50 mg ORAL DAILY doxepin 10 mg cap(s) (SINEquan) 10 mg ORAL AT BEDTIME dexAMETHasone sodium phosphate 8 mg injection (DECADRON) 8 mg INTRAVENOUS q 6 H Chlorhexidine Gluconate 0.12 % 15 mL (PERIDEX) 15 mL ORAL q 6 H acetaminophen 650 mg CUP (TYLENOL) 650 mg ORAL q 4 H PRN oxyCODONE 5 mg oral liquid (ROXICODONE) 5 mg ORAL q 6 H PRN piperacillin-tazobactam iv piggyback 3.375 g in dextrose (iso-osmotic) 50 mL (ZOSYN) 3.375 g INTRAVENOUS ONCE OBJECTIVE PHYSICAL EXAM: Patient Vitals for the past 24 hrs: BP Temp Temp src Pulse Resp SpO2 09/17/22 1004 (!) 94/44 -- -- -- -- -- 09/17/22 0800 (!) 94/44 36.4 ?C (97.5 ?F) Axillary 64 18 96 % 09/17/22 0425 132/72 36.7 ?C (98.1 ?F) Oral 61 16 97 % 09/17/22 0107 110/65 36.6 ?C (97.9 ?F) Axillary 64 -- 93 % 09/17/22 0045 112/68 36.6 ?C (97.8 ?F) Temporal Art 66 18 94 % 09/17/22 0030 124/74 -- -- 68 18 100 % 09/17/22 0015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 hepatitis Diabetes mellitus type 2 in nonobese Hepatic encephalopathy Cirrhosis Diabetes mellitus type 2 in nonobese Hepatic encephalopathy HTN (hypertension) Chief Complaint GET ESTABLISHED/LIVE R ISSUES E ORDERS CONFUSION EORDER E ORDER 2 WK FU Alcoholic hepatitis without ascites Alcoholic hepatitis without ascites COMMODITY SPECIALIST, NPP SENT AVISE BOX- PAIN- COPY PCP/ ADD XRAY Reason for Visit Alcoholic hepatitis Elevated bilirubin Hepatic encephalopathy Alcoholic hepatitis Diabetes mellitus type 2 in nonobese Hepatic encephalopathy Cirrhosis Diabetes mellitus type 2 in nonobese Hepatic encephalopathy HTN (hypertension) Chief Complaint GET ESTABLISHED/LIVE R ISSUES E ORDERS CONFUSION EORDER E ORDER 2 WK FU Alcoholic hepatitis without ascites Alcoholic hepatitis without ascites COMMODITY SPECIALIST, NPP SENT [facility] BOX- PAIN- COPY PCP/ ADD XRAY STANDING ORDER Reason for Visit Alcoholic hepatitis Elevated bilirubin Hepatic encephalopathy Alcoholic hepatitis Diabetes mellitus type 2 in nonobese Hepatic encephalopathy Cirrhosis Diabetes mellitus type 2 in nonobese Hepatic encephalopathy HTN (hypertension) Chief Complaint GET ESTABLISHED/LIVE R ISSUES E ORDERS CONFUSION EORDER E ORDER 2 WK FU Alcoholic hepatitis without ascites Alcoholic hepatitis without ascites COMMODITY SPECIALIST, NPP SENT [facility] BOX- PAIN- COPY PCP/ ADD XRAY STANDING ORDER EORDER Reason for Visit Alcoholic hepatitis Elevated bilirubin Hepatic encephalopathy Alcoholic hepatitis Diabetes mellitus type 2 in nonobese Hepatic encephalopathy Cirrhosis Diabetes mellitus type 2 in nonobese Hepatic encephalopathy HTN (hypertension) Chief Complaint GET ESTABLISHED/LIVE R ISSUES E ORDERS CONFUSION EORDER E ORDER 2 WK FU Alcoholic hepatitis without ascites Alcoholic hepatitis without ascites COMMODITY SPECIALIST, NPP SENT [facility] BOX- PAIN- COPY PCP/ ADD XRAY STANDING ORDER EORDER 2 M FU 2 WK FU E ORDER Reason for Visit Alcoholic hepatitis Elevated bilirubin Hepatic encephalopathy Alcoholic hepatitis Diabetes mellitus type 2 in nonobese Hepatic encephalopathy Cirrhosis Diabetes mellitus type 2 in nonobese Hepatic encephalopathy HTN (hypertension) Carrier of hemochromatosis HFE gene mutation Cirrhosis Diabetes mellitus type 2 in nonobese Hepatic encephalopathy HTN (hypertension) Alcoholic hepatitis Cirrhosis Hepatic encephalopathy Chief Complaint STANDING ORDER EORDER 2 M FU 2 WK FU E ORDER Encounter for other preprocedural examination S/O MONTHLY LABS/SCANNED ORDERS Reason for Visit Carrier of hemochrom atosis HFE gene mutation Cirrhosis Diabetes mellitus type 2 in nonobese Hepatic encephalopathy HTN (hypertension) Alcoholic hepatitis Cirrhosis Hepatic encephalopathy Chief Complaint 2 WK FU E ORDER Encounter for other preprocedural examination S/O MONTHLY LABS/SCANNED ORDERS 3 MO FU 2 DRS-S/O MONTHLY LABS/SCANNED ORDERS-ADD ADDT REC Reason for Visit Alcoholic hepatitis Cirrhosis Hepatic encephalopathy Cirrhosis Colon polyp, hyperplastic Chief Complaint Encounter for other preprocedural examination S/O MONTHLY LABS/SCANNED ORDERS 3 MO FU 2 DRS-S/O MONTHLY LABS/SCANNED ORDERS-ADD ADDT REC 2 DRS-S/O MONTHLY LABS/SCANNED ORDERS-ADD ADDT REC Reason for Visit Cirrhosis Colon polyp, hyperplastic Chief Complaint Encounter for other preprocedural examination S/O MONTHLY LABS/SCANNED ORDERS 3 MO FU 2 DRS-S/O MONTHLY LABS/SCANNED ORDERS-ADD ADDT REC 2 DRS-S/O MONTHLY LABS/SCANNED ORDERS-ADD ADDT REC abd pain Reason for Visit Cirrhosis Colon polyp, hyperplastic Chief Complaint 3 MO FU 2 DRS-S/O MONTHLY LABS/SCANNED ORDERS-ADD ADDT REC 2 DRS-S/O MONTHLY LABS/SCANNED ORDERS-ADD ADDT REC abd pain 2 DRS-S/O MONTHLY LABS/SCANNED ORDERS-ADD ADDT REC 3 MO FU E ORDER Reason for Visit Colon polyp, hyperpl astic Cirrhosis Cirrhosis Hepatic encephalopathy Chief Complaint 3 MO FU 2 DRS-S/O MONTHLY LABS/SCANNED ORDERS-ADD ADDT REC 2 DRS-S/O MONTHLY LABS/SCANNED ORDERS-ADD ADDT REC abd pain 2 DRS-S/O MONTHLY LABS/SCANNED ORDERS-ADD ADDT REC 3 MO FU E ORDER confusio Reason for Visit Colon polyp, hyperpl astic Cirrhosis Cirrhosis Hepatic encephalopathy Chief Complaint 3 MO FU 2 DRS-S/O MONTHLY LABS/SCANNED ORDERS-ADD ADDT REC 2 DRS-S/O MONTHLY LABS/SCANNED ORDERS-ADD ADDT REC abd pain 2 DRS-S/O MONTHLY LABS/SCANNED ORDERS-ADD ADDT REC 3 MO FU E ORDER confusio confusion Reason for Visit Colon polyp, hyperpl astic Cirrhosis Cirrhosis Hepatic encephalopathy Chief Complaint 3 MO FU 2 DRS-S/O MONTHLY LABS/SCANNED ORDERS-ADD ADDT REC 2 DRS-S/O MONTHLY LABS/SCANNED ORDERS-ADD ADDT REC abd pain 2 DRS-S/O MONTHLY LABS/SCANNED ORDERS-ADD ADDT REC 3 MO FU E ORDER confusio confusion 2 DRS-S/O MONTHLY LABS/SCANNED ORDERS-ADD ADDT REC Mental status changes ACUTE METABOLIC ENCEPHALOPATHY ACUTE METABOLIC ENCEPHALOPATHY ACUTE METABOLIC ENCEPHALOPATHY ACUTE METABOLIC ENCEPHALOPATHY ACUTE METABOLIC ENCEPHALOPATHY ACUTE METABOLIC ENCEPHALOPATHY ACUTE METABOLIC ENCEPHALOPATHY Reason for Visit Colon polyp, hyperpl astic Cirrhosis Cirrhosis Hepatic encephalopathy Confusion Disturbance in physical behavior Fever Liver disease Metabolic encephalopathy Cirrhosis Hepatic encephalopathy Chief Complaint 3 MO FU 2 DRS-S/O MONTHLY LABS/SCANNED ORDERS-ADD ADDT REC 2 DRS-S/O MONTHLY LABS/SCANNED ORDERS-ADD ADDT REC abd pain 2 DRS-S/O MONTHLY LABS/SCANNED ORDERS-ADD ADDT REC 3 MO FU E ORDER confusio confusion 2 DRS-S/O MONTHLY LABS/SCANNED ORDERS-ADD ADDT REC Mental status changes ACUTE METABOLIC ENCEPHALOPATHY ACUTE METABOLIC ENCEPHALOPATHY ACUTE METABOLIC ENCEPHALOPATHY ACUTE METABOLIC ENCEPHALOPATHY ACUTE METABOLIC ENCEPHALOPATHY ACUTE METABOLIC ENCEPHALOPATHY ACUTE METABOLIC ENCEPHALOPATHY Reason for Visit Colon polyp, hyperpl astic Cirrhosis Cirrhosis Disturbance in physical behavior Cirrhosis Chief Complaint 2 DRS-S/O MONTHLY LA BS/SCANNED ORDERS-ADD ADDT REC 2 DRS-S/O MONTHLY LABS/SCANNED ORDERS-ADD ADDT REC abd pain 2 DRS-S/O MONTHLY LABS/SCANNED ORDERS-ADD ADDT REC 3 MO FU E ORDER confusio confusion 2 DRS-S/O MONTHLY LABS/SCANNED ORDERS-ADD ADDT REC Mental status changes ACUTE METABOLIC ENCEPHALOPATHY ACUTE METABOLIC ENCEPHALOPATHY ACUTE METABOLIC ENCEPHALOPATHY ACUTE METABOLIC ENCEPHALOPATHY ACUTE METABOLIC ENCEPHALOPATHY ACUTE METABOLIC ENCEPHALOPATHY ACUTE METABOLIC ENCEPHALOPATHY Reason for Visit Cirrhosis Disturbance in physical behavior Cirrhosis Family History No Family History Records Found Relationship Condition Age at Onset Recorded Date/T cherie Not Specified Cardiac disease Unknown Hypertension Unknown Cerebrovascular accident (CVA) Unknown Relationship Condition Age at Onset Recorded Date/T cherie Not Specified Cardiac disease Unknown Malignant neoplasm Unknown Hypertension Unknown Disorder of thyroid Unknown Cerebrovascular accident (CVA) Unknown Relationship Condition Age at Onset Recorded Date/T cherie Not Specified Cardiac disease Unknown Hepatic cirrhosis Unknown Malignant neoplasm Unknown Hypertension Unknown Disorder of thyroid Unknown Cerebrovascular accident (CVA) Unknown Advance Directives No Advanced Directives Records Found Advance Directive Response Recorded Date/ Time Living Will No September 26, 2021 11:44am Power of Curatorial Assistant No September 26 11:44am Advance Directive Response Recorded Date/ Time Living Will No November 30, 2021 1 1:57am Power of Curatorial Assistant No November 30, 2021 11:57am Advance Directive Response Recorded Date/ Time Living Will No February 28 9:56am Power of Curatorial Assistant No February 28 9:56am Advance Directive Response Recorded Date/ Time Name of Medical Power of Curatorial Assistant May 14, 2022 12:24pm Living Will No May 14 12:24pm Power of Curatorial Assistant Yes May 14, 2022 12:24pm Advance Directive Response Recorded Date/ Time Name of Medical Power of Curatorial Assistant May 14, 2022 11:24am Living Will No May 14 11:24am Power of Curatorial Assistant Yes May 14, 2022 11:24am Advance Directive Response Recorded Date/ Time Name of Medical Power of Curatorial Assistant May 14, 2022 11:24am Living Will No June 16 3:10am Power of Curatorial Assistant No June 16, 2022 3:10am Advance Directive Response Recorded Date/ Time Name of Medical Power of Curatorial Assistant May 14, 2022 11:24am Living Will No June 16 10:05pm Power of Curatorial Assistant No June 16, 2022 10:05pm Advance Directive Response Recorded Date/ Time Name of Medical Power of Curatorial Assistant May 14, 2022 11:24am Name of Medical Power of Curatorial Assistant nicolle rojo - to bring in copy June 17, 2022 11:03pm Living Will No June 17 11:03pm Power of Curatorial Assistant Yes June 17, 2022 11:03pm Latest Code Status on File Code Status Date Activated Date Inactivated Comments Full Code 07/27/2023 10:10 PM Reason for Referral Specialty Diagnoses / Procedures Referred By Sayra bruce Referred To Contact [facility]ANSPLANT Diagnoses Acute alcoholic hepatitis Procedures CONSULT TO [facility] OFFICE/OUTPATIENT NEW HIGH MDM 60-74 MINUTES ECG ROUTINE ECG W/LEAST 12 LDS I&R ONLY ECHO TTHRC R-T 2D W/WOM-MODE COMPL SPEC&COLR D COLONOSCOPY W/BIOPSY SINGLE/MULTIPLE US ABDOMINAL REAL TIME W/IMAGE DOCUMENTATION ECHO TTHRC R-T 2D W/WO M-MODE COMPLETE REST&ST CYTP C/V AUTO THIN LYR PREPJ SCR MNL RESCR PHYS SCREENING MAMMOGRAM BILATERAL DXA BONE DENSITY STUDY 1/> SITES AXIAL SKEL OFFICE/OUTPATIENT NEW HIGH MDM 60-[address] ABDOMEN W & W/O CONTRAST CT ANGIOGRAPHY CHEST W/CONTRAST/NONCONTRAST MRI ABDOMEN W/O & W/CONTRAST MATERIAL COLLECTION VENOUS BLOOD VENIPUNCTURE Debra Lipscomb [address] [address] [facility] [address] [place] [address] Referral ID Status Reason Start Date Expiration Date Visits Requested Visits Authorized [id number] Outside PCP PCP Requested Referral Financial Clearance Required - OON Payor 10/13/2021 10/13/2022 99 99 Specialty Diagnoses / Procedures Referred By Sayra bruce Referred To Contact CT IMAGING Diagnoses Alcoholic cirrhosis of liver without ascites (HCC) Procedures CT LIVER W IVCON CT ABDOMEN W/CONTRAST Barrington Traore MD [id number] [facility] [place] [address] Referral ID Status Reason Start Date Expiration Date Visits Requested Visits Authorized [id number] Authorized Auto-Generat ed Referral 08/29/2023 09/27/2024 1 1 Specialty Diagnoses / Procedures Referred By Sayra bruce Referred To Contact [facility] Diagnoses Alcoholic cirrhosis of liver without ascites (HCC) Procedures EGD - THERAPEUTIC, EUS, OR TUBE INTERVENTIONS EGD BAND LIGATION ESOPHGEAL/GASTRIC VARICES Barrington Traore MD [address] [place] [address] [facility] [place] [address] Referral ID Status Reason Start Date Expiration Date Visits Requested Visits Authorized [id number] Authorized Auto-Generat ed Referral 08/29/2023 08/29/2024 1 1 Summary Purpose Additional Source Comments Goals (unrecognized section and content) Goals may be documented in a n alternate sectionGoals may be documented in an alternate sectionGoals may be documented in an alternate sectionGoals may be documented in an alternate sectionGoals may be documented in an alternate sectionGoals may be documented in an alternate sectionGoals may be documented in an alternate section No data available for this section No data available for this section No data available for this section Source Comments (unrecognize d section and content) In the event this informatio n is protected by the Federal Confidentiality of Alcohol and Drug Abuse Patient Records regulations: The Federal rules restrict any use of the information to criminally investigate or prosecute any alcohol or drug abuse patient.[facility] [place] the event this information is protected by the Federal Confidentiality of Alcohol and Drug Abuse Patient Records regulations: The Federal rules restrict any use of the information to criminally investigate or prosecute any alcohol or drug abuse patient.[facility] [place] the event this information is protected by the Federal Confidentiality of Alcohol and Drug Abuse Patient Records regulations: The Federal rules restrict any use of the information to criminally investigate or prosecute any alcohol or drug abuse patient.[facility] [place] the event this information is protected by the Federal Confidentiality of Alcohol and Drug Abuse Patient Records regulations: The Federal rules restrict any use of the information to criminally investigate or prosecute any alcohol or drug abuse patient.[facility] [place] the event this information is protected by the Federal Confidentiality of Alcohol and Drug Abuse Patient Records regulations: The Federal rules restrict any use of the information to criminally investigate or prosecute any alcohol or drug abuse patient.[facility] [place] the event this information is protected by the Federal Confidentiality of Alcohol and Drug Abuse Patient Records regulations: The Federal rules restrict any use of the information to criminally investigate or prosecute any alcohol or drug abuse patient.[facility] [place] the event this information is protected by the Federal Confidentiality of Alcohol and Drug Abuse Patient Records regulations: The Federal rules restrict any use of the information to criminally investigate or prosecute any alcohol or drug abuse patient.[facility] [place] the event this information is protected by the Federal Confidentiality of Alcohol and Drug Abuse Patient Records regulations: The Federal rules restrict any use of the information to criminally investigate or prosecute any alcohol or drug abuse patient.[facility] [place] the event this information is protected by the Federal Confidentiality of Alcohol and Drug Abuse Patient Records regulations: The Federal rules restrict any use of the information to criminally investigate or prosecute any alcohol or drug abuse patient.[facility] [place] the event this information is protected by the Federal Confidentiality of Alcohol and Drug Abuse Patient Records regulations: The Federal rules restrict any use of the information to criminally investigate or prosecute any alcohol or drug abuse patient.[facility] [place] Reason for Visit (unrecogniz ed section and content) Reason Comments Referral - Liver Txp Reason Comments Referral - Liver Txp Intake-LM Reason Comments Referral - Liver Txp Reason Comments Fall Pt sent in from [facility] after a fall. Pt had an xray and they reported a fracture. Specialty Diagnoses / Procedures Referred By Contac t Referred To Contact Diagnoses Fall, initial encounter Closed fracture of second lumbar vertebra, unspecified fracture morphology, initial encounter (HCC) Fall (on) (from) other stairs and steps, initial encounter Alex Nogueira MD [address] [place] [address] [facility] [address] [place] [address] Referral ID Status Reason Start Date Expiration Date Visits Re quested Visits Authorized [id number] 1 1 Reason Comments New Patient Cirrhosis liver Reason Comments Education Of Patient/family Appointment Unable to confirm ap pointment for 09/20/2023 Specialty Diagnoses / Procedures Referred By Sayra t Referred To Contact CT IMAGING Diagnoses Alcoholic cirrhosis of liver without ascites (HCC) Procedures CT LIVER W IVCON CT ABDOMEN W/CONTRAST Barrington Traore MD [address] [place] [address] Ct Imaging [place] [facility] Referral ID Status Reason Start Date Expiration Date V isits Requested Visits Authorized [id number] Closed Auto-Generate d Referral 08/29/2023 09/27/2024 1 1 Reason Comments New Patient Pt presented with tr ansportation from [place], reported ER visit [facility] for Hepatic concerns. Reason Comments Established Patient Cirrhosis Reason Comments Radiology US Specialty Diagnoses / Procedures Referred By Contfabby t Referred To Contact US IMAGING Diagnoses Other cirrhosis of liver (HCC) Procedures US ABD RIGHT UPPER QUADRANT US ABDOMINAL REAL TIME W/IMAGE LIMITED Barrington Traore MD [id number] [place] [address] Referral ID Status Reason Start Date Expiration Date V isits Requested Visits Authorized [id number] Closed Auto-Generate d Referral 01/30/2024 02/28/2025 1 1 (unrecognized sect ion and content) No Status Records FoundNo Status Records FoundNo Status Records FoundNo Status Records FoundNo Status Records FoundNo Status Records FoundNo Status Records FoundNo Status Records FoundNo Status Records FoundNo Status Records FoundNo Status Records Found INFORMATION SOURCE (unrecogn ized section and content) DATE CREATED AUTHOR 10/22/2021 [facility] DATE CREATED AUTHOR AUTHOR'S ORGANIZ ATION 09/23/2022 [facility] DATE CREATED AUTHOR AUTHOR'S ORGANIZ ATION 03/18/2023 [facility] DATE CREATED AUTHOR AUTHOR'S ORGANIZ ATION 03/24/2023 [facility] DATE CREATED AUTHOR AUTHOR'S ORGANIZ ATION 08/09/2023 [facility] DATE CREATED AUTHOR AUTHOR'S ORGANIZ ATION 09/22/2023 [facility] DATE CREATED AUTHOR AUTHOR'S ORGANIZ ATION 09/22/2023 [facility] DATE CREATED AUTHOR AUTHOR'S ORGANIZ ATION 04/11/2024 [facility] DATE CREATED AUTHOR AUTHOR'S ORGANIZ ATION 07/19/2024 [facility] DATE CREATED AUTHOR AUTHOR'S ORGANIZ ATION 11/18/2024 [facility] DATE CREATED AUTHOR AUTHOR'S ORGANIZ ATION 12/01/2024 [facility] Care Teams (unrecognized sec tion and content) Acquisition Marketing Coordinator Relationship Specialty Start Date End Date Greg Goddard MD [address] [place] [address] PCP - General Internal Medicine 08/18/22 Acquisition Marketing Coordinator Relationship Specialty Start Date End Date Greg Goddard MD [address] [place] [address] PCP - General Internal Medicine 08/18/22 Dewayne Eric [address] [place], [place] [address] Referring Internal Medicine 06/19/23 Acquisition Marketing Coordinator Relationship Specialty Start Date End Date Greg Goddard MD [address] [place] [address] PCP - General Internal Medicine 08/18/22 Dewayne Eric [address] [place] [address] Referring Internal Medicine 06/19/23 Acquisition Marketing Coordinator Relationship Specialty Start Date End Date Greg Goddard MD [address] [place] [address] PCP - General Internal Medicine 08/18/22 Dewayne Eric [address] [place] [address] Referring Internal Medicine 06/19/23 Acquisition Marketing Coordinator Relationship Specialty Start Date End Date Greg Goddard MD [address] [place] [address] PCP - General Internal Medicine 08/18/22 Dewayne Eric [address] [place] [address] Referring Internal Medicine 06/19/23 Acquisition Marketing Coordinator Relationship Specialty Start Date End Date Katia Lan MD [address] [place] [address] [facility] [address] [place] [address] PCP - General Infectious Diseases 10/10/23 Dewayne Eric [address] [place], [place] [id number] Referring Internal Medicine 06/19/23 Acquisition Marketing Coordinator Relationship Specialty Start Date End Date Katia Lan MD [address] [place] [address] [place] [address] PCP - General Infectious Diseases 10/10/23 Dewayne Eric [address] [facility] [address] [place], [place] [address] Referring Internal Medicine 06/19/23 Acquisition Marketing Coordinator Relationship Specialty Start Date End Date Katia Lan MD [address] [facility] [address] [place] [address] PCP - General Infectious Diseases 10/10/23 Dewayne Eric [address] [facility] [address] [place], [place] [id number] Referring Internal Medicine 06/19/23 Ordered Prescriptions (unrec ognized section and content) Prescription Sig Dispensed Refills Start Date End Da te oxyCODONE (ROXICODONE) 5 MG immediate release tabletIndications:Fall, initial encounter Take 1 tablet by mouth every 6 hours as needed for Pain for up to 7 days. Max Daily Amount: 20 mg 28 tablet 0 08/08/2023 08/15/2023 methocarbamol (ROBAXIN) 500 MG tablet Take 1 tablet by mouth 4 times daily for 10 days 40 tablet 0 08/08/2023 08/18/2023 sennosides-docusate sodium (SENOKOT-S) 8.6-50 MG tablet Take 1 tablet by mouth daily 30 tablet 0 08/08/2023 09/07/2023 lactulose (CHRONULAC) 10 GM/15ML solution Take 60 mLs by mouth 4 times daily 7200 mL 0 08/08/2023 09/07/2023 methocarbamol (ROBAXIN) 500 MG tablet Take 1 tablet by mouth 4 times daily for 10 days 40 tablet 0 08/08/2023 08/08/2023 oxyCODONE (ROXICODONE) 5 MG immediate release tabletIndications:Fall, initial encounter Take 1 tablet by mouth every 6 hours as needed for Pain for up to 7 days. Max Daily Amount: 20 mg 28 tablet 0 08/08/2023 08/08/2023 Scheduled Active and Recently Administ ered Medications (unrecognized section and content) Medication Order 08/06/2023 08/07/2023 08/08/2023 ARIPiprazole (ABILIFY) tablet 5 mg 5 mg, Oral, DAILY, First dose on Mon07/31/23 at 1200, Until Discontinued 0802 (Given - Provider: Sloane Serrato RN) 0831 (Given - Provider: Dai Wong RN) 0908 (Given - Provider: Sloane Serrato RN) folic acid (FOLVITE) tablet 1 mg 1 mg, Oral, DAILY, First dose on Mon07/28/23 at 1200, Until Discontinued 0801 (Given - Provider: Sloane Serrato RN) 0831 (Given - Provider: Dai Wong RN) 0906 (Given - Provider: Sloane Serrato RN) furosemide (LASIX) tablet 40 mg 40 mg, Oral, DAILY, First dose on Mon07/28/23 at 1200, Until Discontinued 0801 (Given - Provider: Sloane Serrato RN) 0831 (Given - Provider: Dai Wong RN) 0905 (Given - Provider: Sloane Serrato RN) heparin (porcine) injection 5,000 Units 5,000 Units, SubCUTAneous, EVERY 8 HOURS SCHEDULED (3 times per day), First dose on Mon08/02/23 at 0830, Until Discontinued 0606 (Given - Provider: Diana Marrufo RN)1349 (Given - Provider: Sloane Serrato RN)212 (Not Given - Provider: Betina Pavon RN - Reason: Patient/family refused) 0548 (Given - Provider: Betina Pavon RN)1338 (Not Given - Provider: Dai Wong RN - Reason: Patient/family refused)2135 (Given - Provider: Mckinley Zaidi RN) 0553 (Given - Provider: Mckinley Zaidi RN)1400 (Due)2200 (Due) lactulose (CHRONULAC) 10 GM/15ML solution 40 g 40 g, Oral, 4 TIMES DAILY, First dose on Mon07/28/23 at 1300, Until Discontinued 0759 (Given - Provider: Sloane Serrato RN)1347 (Given - Provider: Sloane Serrato RN)1745 (Given - Provider: Sloane Serrato RN)212 (Not Given - Provider: Betina Pavon RN - Reason: Patient/family refused - Comment: multiple bowel movements) 0831 (Not Given - Provider: Dai Wong RN - Reason: Patient/family refused)1255 (Not Given - Provider: Dai Wong RN - Reason: Patient/family refused)1611 (Not Given - Provider: Dai Wong RN - Reason: Patient/family refused)2130 (Given - Provider: Mckinley Zaidi RN) 0904 (Given - Provider: Sloane Serrato RN)1300 (Due)1700 (Due)2100 (Due) methocarbamol (ROBAXIN) tablet 500 mg 500 mg, Oral, 4 TIMES DAILY, First dose on Mon07/27/23 at 2230, Until Discontinued 0800 (Given - Provider: Sloane Serrato RN)1348 (Given - Provider: Sloane Serrato RN)1746 (Given - Provider: Sloane Serrato, PENNY)2122 (Given - Provider: Betina Pavon RN) 0831 (Given - Provider: Dai Wong RN)1338 (Not Given - Provider: Dai Wong RN - Reason: Patient/family refused)1611 (Given - Provider: Dai Wong RN)2131 (Given - Provider: Mckinley Zaidi RN) 0907 (Given - Provider: Sloane Serrato RN)1300 (Due)1700 (Due)2100 (Due) pantoprazole (PROTONIX) tablet 40 mg 40 mg, Oral, DAILY, First dose on Mon07/28/23 at 1200, Until Discontinued, Do not crush or break. 0801 (Given - Provider: Sloane Serrato RN) 0830 (Given - Provider: Dai Wong RN) 0907 (Given - Provider: Sloane Serrato RN) propranolol (INDERAL) tablet 10 mg 10 mg, Oral, 2 TIMES DAILY, First dose on Mon07/28/23 at 1200, Until Discontinued 0900 (Automatically Held)2100 (Automatically Held) 0900 (Automatically Held)2100 (Automatically Held) 0900 (Automatically Held)2100 (Automatically Held) rifAXIMin (XIFAXAN) tablet 400 mg 400 mg, Oral, 2 TIMES DAILY, First dose on Mon07/28/23 at 1300, Until Discontinued 0801 (Given - Provider: Sloane Serrato RN)2121 (Given - Provider: Betina Pvaon RN) 08 (Given - Provider: Dai oWng RN)2131 (Given - Provider: Mckinley Zaidi RN) 09 (Given - Provider: Sloane Serrato RN)2100 (Due) sennosides-docusate sodium (SENOKOT-S) 8.6-50 MG tablet 1 tablet 1 tablet, Oral, 2 TIMES DAILY, First dose on Mon07/27/23 at 2230, Until Discontinued 0800 (Given - Provider: Sloane Serrato RN)2123 (Not Given - Provider: Betina Pavon RN - Reason: Patient/family refused - Comment: loose stools) 829 (Given - Provider: Dai Wong RN)2131 (Given - Provider: Mckinley Zaidi RN) 09 (Given - Provider: Sloane Serrato RN)2100 (Due) sertraline (ZOLOFT) tablet 200 mg 200 mg, Oral, DAILY, First dose on Mon07/31/23 at 1200, Until Discontinued 0800 (Given - Provider: Sloane Serrato RN) 08 (Given - Provider: Dai Wong RN) 0905 (Given - Provider: Sloane Serrato RN) sodium chloride flush 0.9 % injection 5-40 mL 5-40 mL, IntraVENous, EVERY 12 HOURS SCHEDULED (2 times per day), First dose on Mon07/27/23 at 2230, Until Discontinued, For Line Patency: Peripheral IV = 5 mL; Midline or Central Line = 10 mL/lumen. If following IV push medication, administer flush at same rate as the IV push. Flush volume is determined by type of infusion therapy being given. For non-viscous solutions use: Peripheral IV = 5 mL Midline or Central Line = 10 mL/lumen For viscous solutions (i.e. blood components, parenteral nutrition, contrast media, or after obtaining blood sample) use: Peripheral IV = 10 mL Midline or Central Line = 20 mL/lumen 0809 (Not Given - Provider: Sloane Serrato RN - Reason: Loss of IV access)2123 (Not Given - Provider: Betina Pavon RN - Reason: Loss of IV access) 08 (Not Given - Provider: Dai Wong RN - Reason: Loss of IV access)2133 (Not Given - Provider: Mckinley Zaidi RN - Reason: Loss of IV access) 09 (Not Given - Provider: Sloane Serrato RN - Reason: Loss of IV access)2100 (Due) spironolactone (ALDACTONE) tablet 25 mg 25 mg, Oral, DAILY, First dose on Mon07/28/23 at 1200, Until Discontinued 08 (Given - Provider: Sloane Serrato RN) 08 (Given - Provider: Dai Wong RN) 09 (Given - Provider: Sloane Serrato, PENNY) thiamine tablet 100 mg 100 mg, Oral, DAILY, First dose on Mon07/28/23 at 1200, Until Discontinued 800 (Given - Provider: Sloane Serrato RN) 08 (Given - Provider: Dai Wong RN) 09 (Given - Provider: Sloane Serrato RN) PRN Medication Order 08/06/2023 08/07/2023 08/08/2023 0.9 % sodium chloride infusion IntraVENous, at 5-250 mL/hr, PRN, if patient receiving piggyback infusions and maintenance fluids are not ordered OR KVO fluids to protect IV site / prevent frequent line interruptions/ long duration, Starting on Leatha 07/27/23 at 2210, For piggyback infusion, administer at same rate as piggyback for a total of 25 mL. Enter 25 mL into dose field and piggyback rate into rate field of order. If piggyback is infusing at a rate less than 100 mL/hr, enter 25 mL into dose field and 100 mL/hr into rate field of order. For KVO fluids, enter rate of 20 mL/hr or less into rate field of order. acetaminophen (TYLENOL) tablet 650 mg 650 mg, Oral, EVERY 6 HOURS PRN, Starting on 07/29/23 at 0836, Until Discontinued, Fever, Maximum dose of acetaminophen is 4000 mg from all sources in 24 hours. magnesium sulfate 2000 mg in 50 mL IVPB premix 2,000 mg, IntraVENous, at 25 mL/hr, Administer over 2 Hours, PRN, Other, Per IV Magnesium Replacement Protocol, Starting on Leatha 07/27/23 at 2210, Mg Lab Replacement Action 1.4-1.6 2 gram IVPB x 1 doses (2 gram Total) 1.0-1.3 2 gram IVPB x 2 doses (4 gram Total) less than 1.0 CALL PHYSICIAN and 2 gram IVPB x 2 doses (4 gram Total) Infuse at 1 gram/hr Repeat Mag level next AM Protocol not for use in Patients with CrCl less than 30mL/min ondansetron (ZOFRAN) injection 4 mg(Linked Group 1) 4 mg, IntraVENous, EVERY 6 HOURS PRN, Starting on Leatha 07/27/23 at 2210, Until Discontinued, Nausea, Vomiting, Administer if oral route cannot be used. ondansetron (ZOFRAN-ODT) disintegrating tablet 4 mg(Linked Group 1) 4 mg, Oral, EVERY 8 HOURS PRN, Starting on Leatha 07/27/23 at 2210, Until Discontinued, Nausea, Vomiting oxyCODONE (ROXICODONE) immediate release tablet 5 mg(Linked Group 2) 5 mg, Oral, EVERY 4 HOURS PRN, Starting on [place]atha 07/27/23 at 2210, Until Discontinued, Pain Moderate (4-6) 2122 (Given - Provider: Betina Pavon RN) 2205 (Given - Provider: Mckinley Zaidi, PENNY) oxyCODONE HCl (OXY-IR) immediate release tablet 10 mg(Linked Group 2) 10 mg, Oral, EVERY 4 HOURS PRN, Starting on Leatha 07/27/23 at 2210, Until Discontinued, Pain Severe (7-10) 2122 (See Alternative - Provider: Betina Pavon RN) 2205 (See Alternative - Provider: Mckinley Zaidi, PENNY) polyethylene glycol (GLYCOLAX) packet 17 g 17 g, Oral, DAILY PRN, Starting on Leatha 07/27/23 at 2210, Until Discontinued, Constipation, First line therapy for constipation sodium chloride flush 0.9 % injection 5-40 mL 5-40 mL, IntraVENous, PRN, Starting on Leatha 07/27/23 at 2210, Until Discontinued, Line Care, After every IV line use, For Line Patency: Peripheral IV = 5 mL; Midline or Central Line = 10 mL/lumen. If following IV push medication, administer flush at same rate as the IV push. Flush volume is determined by type of infusion therapy being given. For non-viscous solutions use: Peripheral IV = 5 mL Midline or Central Line = 10 mL/lumen For viscous solutions (i.e. blood components, parenteral nutrition, contrast media, or after obtaining blood sample) use: Peripheral IV = 10 mL Midline or Central Line = 20 mL/lumen Linked Groups Order Group 1: ondansetron (ZOFRAN-ODT) disintegrating tablet 4 mgJump to med 4 mg, Oral, EVERY 8 HOURS PRN, Starting on Leatha 07/27/23 at 2210, Until Discontinued, Nausea, Vomiting Or ondansetron (ZOFRAN) injection 4 mgJump to med 4 mg, IntraVENous, EVERY 6 HOURS PRN, Starting on Leatha 07/27/23 at 2210, Until Discontinued, Nausea, Vomiting
Administer if oral route cannot be used.
Group 2: oxyCODONE (ROXICODONE) immediate release tablet 5 mgJump to med 5 mg, Oral, EVERY 4 HOURS PRN, Starting on Leatha 07/27/23 at 2210, Until Discontinued, Pain Moderate (4-6) Or oxyCODONE HCl (OXY-IR) immediate release tablet 10 mgJump to med 10 mg, Oral, EVERY 4 HOURS PRN, Starting on Leatha 07/27/23 at 2210, Until Discontinued, Pain Severe (7-10) Inactive Administered Medications - up to 3 most recent administrations Administered Medications (un recognized section and content) Medication Order MAR Action Action Date Dose Rate Site benzocaine 20% (TOPEX) TOPICAL, X (OR/PROCEDURE) PRN, Starting on Mon09/20/23 at 1111, Until Mon09/20/23 at 1111, Intraprocedure Given 09/20/2023 11:11 AM EST 1 [place] fentaNYL 50 mcg/mL injection (SUBLIMAZE) INTRAVENOUS, X (OR/PROCEDURE) PRN, Starting on Mon09/20/23 at 1113, Until Mon09/20/23 at 1113, Intraprocedure Given 09/20/2023 11:13 AM EST 50 mcg midazolam (PF) injection (VERSED) INTRAVENOUS, X (OR/PROCEDURE) PRN, Starting on Mon09/20/23 at 1113, Until Mon09/20/23 at 1113, Intraprocedure Given 09/20/2023 11:13 AM EST 3 mg FOR RECORDS PERTAINING TO PATIENTS WHO ARE OR HAVE BEEN ENROLLED IN A CHEMICAL DEPENDENCY/SUBSTANCEABUSE PROGRAM, SOME INFORMATION MAY BE OMITTED. This clinical summary was aggregated from multiple sources. Caution should be exercised in using it in the provision of clinical care. This summary normalizes information from multiple sources, and as a consequence, information in this document may materially change the coding, format and clinical context of patient data. In addition, data may be omitted in some cases. CLINICAL DECISIONS SHOULD BE BASED ON THE PRIMARY CLINICAL RECORDS. [facility], [facility]. provides no warranty or guarantee of the accuracy or completeness of information in this document.
[2024-12-20 03:09] LABS: Absolute Lymphocyte Count 1.39 X10^3/uL (0.83-4.51); Absolute Neutrophil Count 2.4 X10^3/uL (2.0-7.7); Basophil# 0.03 X10^3/uL; Basophil% 0.7 % (0-1); Eosinophil# 0.19 X10^3/uL; Eosinophils% 4.3 % (0-5); Hematocrit 33.6 % (40-54); Hemoglobin 12.3 g/dL (13.0-16.5); Lymphocyte # 1.39 X10^3/ul (0.83-4.51); Lymphocyte % 31.2 % (19-41); Mean Corp Hgb Conc 36.6 g/dL (32-36); Mean Corpuscular Hgb 38.3 pg (27.0-32.0); Mean Corpuscular Volume 104.7 fL (80-94); Mean Platelet Vol. 9.8 fl (6.2-12.0); Monocyte# 0.41 X10^3/uL; Monocyte% 9.2 % (0-10); NRBC Flagged by Analyzer 0 % (0-5); Neutrophil # 2.43 X10^3/uL (2.7-7.7); Neutrophil % 54.4 % (47-70); POSITIVE COUNT YES; Platelet Count 75 K/mm3 (150-450); RBC Distribution Width CV 14.7 % (11.6-14.6); RBC Distribution Width SD 57.1 fl (35.1-43.9); Red Blood Count 3.21 M/mm3 (4.6-6.2); White Blood Count 4.5 K/mm3 (4.4-11.0)
[2024-12-20 03:31] LABS: Alcohol, Blood (Medical)-Serum < 10.1 mg/dL (<=10.0)
--- NOTE | 2024-12-20 03:39 | PCA ---
CRISIS CALLED, CHART FAXED
[2024-12-20 03:48] LABS: Anion Gap 11 (5-15); BUN 9 mg/dL (4-19); BUN/Creat Ratio 10.8 RATIO (10-20); Carbon Dioxide 21.3 mmol/L (21.0-32.0); Chloride 104 mmol/L (98-108); Creatinine, Serum 0.84 mg/dL (0.70-1.20); EST Glomerular Filtration Rate 106 (>60); Estimated Creatinine Clearance 112.38 ml/min (50-250); Glucose 178 mg/dL (70-99); Sodium Level 137 mmol/L (133-145)
--- NOTE | 2024-12-20 04:35 | EX.ED.DYSGE1 ---
HPI History of Present Illness Chief Complaint: Suicidal Informant: patient and EMS Narrative Narrative: Patient is a 49-year-old male who stays at assisted living as he has a past history of alcohol abuse which is led to alcoholic cirrhosis. He also has a history of anxiety and depression. He states that life sucks and he has been feeling depressed and this evening thought about hurting himself. He states he took his hunting knife and cut his left wrist with intent to perform self-harm. When assisted living was informed of his injury and intent EMS was called and he was brought to the hospital for evaluation. Patient denies any alcohol or drug use this evening. He states his tetanus was updated roughly 1 to 2 months ago. He states he has not had to be hospitalized psychiatrically for multiple years. He also reports that as he is in assisted living he does not have access to his pills as they give them to him and that he did handover his hunting knife to the assisted living staff so he no longer has access to weapons. [facility] Medical History Former tobacco use History of alcohol abuse Alcoholic cirrhosis Anxiety and depression Hepatic encephalopathy Suicide attempt Trauma Sleep apnea Gastric reflux Former smoker History of panic attacks Gout Seasonal allergies Cirrhosis Diabetes mellitus type 2 in nonobese HTN (hypertension) Hx of gout Alcoholic hepatitis Carrier of hemochromatosis HFE gene mutation Home Medications ?Medication ?Instructions ?Recorded ?Last Taken ?Type folic acid 1 mg tablet 1 mg PO DAILY #90 tabs 05/02/22 Unknown Rx furosemide 40 mg tablet 40 mg PO DAILY WATER PILL 02/07/23 02/06/23 History rifaximin 550 mg tablet (Xifaxan) 550 mg PO BID DEPRESSION 02/07/23 02/06/23 History acetaminophen 325 mg tablet 650 mg PO Q6H PRN fever or pain 10/24/24 Unknown History aripiprazole 15 mg tablet 15 mg PO DAILY 10/24/24 Unknown History melatonin 3 mg tablet 3 mg PO QHS 10/24/24 Unknown History menthol 4 % topical gel (Biofreeze 1 applic topical TID PRN pain 10/24/24 Unknown History (menthol)) sennosides 8.6 mg-docusate sodium 1 tab PO QDAY 10/24/24 Unknown History 50 mg tablet (Senexon-S) sodium chloride 0.65 % nasal spray 2 spray intranasal Q6H PRN PRN 10/24/24 Unknown History aerosol (Deep Sea Nasal) nasal congestion thiamine HCl (vitamin B1) 100 mg 100 mg PO QDAY VITAMIN 10/24/24 Unknown History tablet (Vitamin B-1) quetiapine 50 mg tablet 50 mg PO QHS 10/28/24 Unknown History sertraline 100 mg tablet 100 mg PO QHS DEPRES 10/28/24 Unknown History lactulose 20 gram/30 mL oral 20 g (30 mL) PO TID #0 mL 11/09/24 Unknown Rx solution clotrimazole 1 % topical cream 1 applic topical Q12H 12/20/24 Unknown History lactulose 10 gram/15 mL oral 15 ml PO DAILY PRN constipation 12/20/24 Unknown History solution spironolactone 25 mg tablet 25 mg PO DAILY 12/20/24 Unknown History Allergy/AdvReac Type Severity Reaction Status Date / Time pioglitazone Allergy Mild liver Verified 12/20/24 02:33 damange Family History Other CVA (cerebral vascular accident) Cancer Cirrhosis Heart disease Hypertension Thyroid disorder Surgical History History of esophagogastroduodenoscopy (EGD) History of surgery Social History housing: homeless 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 Smoking Status: Current every day smoker tobacco type: cigarettes and pipe alcohol intake: former substance use type: does not use what type of physical activity do you participate in: other frequency: 1-2 times per week ROS ROS ED Constitutional Constitutional ED: Denies chills or fever(s) ENT ENT ED: Denies sore throat Cardiovascular Cardiovascular: Denies chest pain Respiratory/Chest Respiratory/Chest: Denies cough or dyspnea Gastrointestinal Gastrointestinal: Denies abdominal pain, diarrhea, nausea or vomiting Genitourinary Genitourinary ED: Denies dysuria Musculoskeletal Musculoskeletal: Denies myalgias Integumentary Reports other Details: Positive left wrist laceration Neurologic Neurologic: Denies headache(s) Psychiatric Psychiatric: Reports anxiety, depression, suicidal ideation and suicidal thoughts Hematologic/Lymphatic Hematologic/Lymphatic: Denies easy bleeding or easy bruising EXAM Physical Exam Const Vital Signs: 12/20/24 02:33 Temperature 98.1 F Temperature Source Oral Pulse Rate 90 Respiratory Rate 18 Blood Pressure 120/64 Blood Pressure Mean 82 Pulse Ox 98 Oxygen Delivery Method Room Air Positive well nourished and well developed General Appearance ED: well developed HEENT HEENT Narrative: Normocephalic atraumatic Eyes PERRL and EOMs intact bilaterally General Eye ED: Negative for scleral icterus Neck supple Neck Narrative: No nuchal rigidity or meningeal signs Resp normal respiratory effort and clear to auscultation bilaterally Cardio regular rate and regular rhythm GI normal to inspection, nondistended, normoactive bowel sounds, non-tender, non-distended and no masses Auscultation: normoactive bowel sounds Palpation: soft Extremity Extremity Narrative: Left upper extremity is neurovascularly intact. Patient has a 1 cm dermal layer deep laceration to the lateral aspect of the left wrist near the anatomical snuffbox. Minimal ooze of blood without arterial bleeding and no retained foreign body. No ligamentous or tendon damage noted Neuro oriented x3, CN's II-XII intact bilaterally and no sensory deficits noted Sensorium / Orientation: alert Motor Exam: strength 5/5 throughout Psych Psych Narrative: Patient has a depressed/flat affect Skin Skin Narrative: Laceration to the left wrist as documented above MDM MDM MDM Narrative Medical decision making narrative: Patient arrived to the ER with stable vitals and had a self-inflicted superficial laceration near the left wrist. There is no sign of arterial injury or ligamentous or tendon damage and therefore I do not feel there is need for imaging or further evaluation of this. The wound was closed with Dermabond as documented below. However as he did report increased life stressor with thoughts of self-harm and did perform a gesture with cutting I did feel the patient would need evaluated by psychiatry. Secondary to this a basic medical workup was obtained. Labs revealed no clinically significant finding. Therefore he was medically cleared and evaluated by crisis center. They agree that as he is in assisted living and does not have access to his pills or weapons and can be monitored that he is safe for return to assisted living with outpatient follow-up. History & Record Review Discussion w/independent historian: EMS personnel and Patient Lab Data Labs: Laboratory Results - last 24 hr 12/20/24 02:55 WBC 4.5 RBC 3.21 L Hgb 12.3 L Hct 33.6 L MCV 104.7 H MCH 38.3 H MCHC 36.6 H RDW Std Deviation 57.1 H RDW Coeff of Kaela 14.7 H Plt Count 75 L MPV 9.8 Immature Gran % (Auto) 0.200 Neut % (Auto) 54.4 Lymph % (Auto) 31.2 Whitman % (Auto) 9.2 Eos % (Auto) 4.3 Baso % (Auto) 0.7 Absolute Neuts (auto) 2.4 Absolute Lymphs (auto) 1.39 Nucleated RBC % 0 Sodium 137 Potassium 3.0 L Chloride 104 Carbon Dioxide 21.3 Anion Gap 11 BUN 9 Creatinine 0.84 Estim Creat Clear Calc 112.38 Est GFR (MDRD) Non-Af 106 BUN/Creatinine Ratio 10.8 Glucose 178 H Calcium 8.0 Ethyl Alcohol < 10.1 Management Discussion w/another healthcare provider: Behavioral health Discharge Plan Triage Chief Complaint: Suicidal ED Provider: Min Butt Dx/Rx/DC Orders Clinical Impression: Depression, Laceration of left wrist, History of alcohol abuse, Alcoholic cirrhosis Instructions: Depression: Tips to Help Yourself, CONTRACT, No Harm, ED Laceration, Extremity: Skin Glue Prescriptions: No Action acetaminophen 325 mg tablet 650 mg PO Q6H PRN (Reason: fever or pain) sennosides-docusate sodium [Senexon-S] 8.6-50 mg tablet 1 tab PO QDAY melatonin 3 mg tablet 3 mg PO QHS aripiprazole 15 mg tablet 15 mg PO DAILY Deep Sea Nasal 0.65 % aerosol,spray 2 spray intranasal Q6H PRN PRN (Reason: nasal congestion) Rx Instructions: while awake Biofreeze (menthol) 4 % gel 1 applic topical TID PRN (Reason: pain) thiamine HCl (vitamin B1) [Vitamin B-1] 100 mg tablet 100 mg PO QDAY furosemide 40 mg tablet 40 mg PO DAILY Rx Instructions: take 1 tablet by mouth once daily Xifaxan 550 mg tablet 550 mg PO BID Rx Instructions: take 1 tablet by mouth twice a day clotrimazole 1 % cream 1 applic topical Q12H lactulose 10 gram/15 mL solution 15 ml PO DAILY PRN (Reason: constipation) spironolactone 25 mg tablet 25 mg PO DAILY Rx Instructions: Hold if serum potassium more than 5.0. lactulose 20 gram/30 mL solution 20 g PO TID Qty: 0 0RF folic acid 1 mg tablet 1 mg PO DAILY Qty: 90 3RF sertraline 100 mg tablet 100 mg PO QHS Patient Comments: TAKE 1 TABLET BY MOUTH EVERY DAY quetiapine 50 mg tablet 50 mg PO QHS Primary Care Provider: Lidia Otero Referrals: Lidia Otero MD [Primary Care Provider] - Activity Restrictions/Additional Instructions: Please follow-up with crisis center as directed. Your wound should heal without any issues and the Dermabond will spontaneously fall off like a scab over the next 10 to 14 days. Return to the ER should you have any further concerns Print Language: Liberian Disposition Disposition: Home, Self Care
[2024-12-20 05:22] LABS: Amphetamine Urine NEGATIVE (<1000 ng/mL); Barbiturate Urine NEGATIVE (< 200 ng/mL); Benzodiazepine Urine NEGATIVE (< 200 ng/mL); Buprenorphine Urine NEGATIVE (< 200 ng/mL); Cocaine Urine NEGATIVE (< 300 ng/mL); Fentanyl, Urine NEGATIVE; Methadone Urine NEGATIVE (< 300 ng/mL); Opiates Urine NEGATIVE (< 300 ng/mL); Oxycodone, Urine NEGATIVE (< 100 ng/mL); PCP Urine NEGATIVE (< 25 ng/mL); THC Urine NEGATIVE (< 50 ng/mL)
[2024-12-20 05:26] VITALS: BP 128/86; PULSE 57; RESP 16; TEMP 36.8; O2SAT 99
--- NOTE | 2024-12-20 05:34 | ED.RN ---
[facility] and diagnosis and plan.No further questions.
== END 2024-12-20 06:31 | disposition home or self-care (01) ==
PROVIDERS: Emergency Provider Emergency Medicine; PCP Hospitalist; Visit Provider Emergency Medicine
DX: S61.512A Laceration without foreign body of left wrist, initial encounter (principal); K70.30 Alcoholic cirrhosis of liver without ascites; X78.1XXA Intentional self-harm by knife, initial encounter; F10.188 Alcohol abuse with other alcohol-induced disorder; E11.9 Type 2 diabetes mellitus without complications; F41.9 Anxiety disorder, unspecified; I10 Essential (primary) hypertension; F17.210 Nicotine dependence, cigarettes, uncomplicated; F32.A Depression, unspecified; K21.9 Gastro-esophageal reflux disease without esophagitis; Z63.79 Other stressful life events affecting family and household
CPT/HCPCS: 12001; 36415; 80048; 80307; 82077; 85025; 99284

== ENCOUNTER 2025-01-04 08:13 | Emergency (ER) | payer MEDICAID, SELFPAY ==
[2025-01-04 08:14] VITALS: BP 126/79; PULSE 70; RESP 19; TEMP 36.6; O2SAT 96; BMI 31.4
[2025-01-04 08:42] LABS: Absolute Lymphocyte Count 1.02 X10^3/uL (0.83-4.51); Absolute Neutrophil Count 2.3 X10^3/uL (2.0-7.7); Basophil# 0.02 X10^3/uL; Basophil% 0.5 % (0-1); Eosinophil# 0.09 X10^3/uL; Eosinophils% 2.4 % (0-5); Hematocrit 36.6 % (40-54); Hemoglobin 13.3 g/dL (13.0-16.5); Lymphocyte # 1.02 X10^3/ul (0.83-4.51); Lymphocyte % 27.2 % (19-41); Mean Corp Hgb Conc 36.3 g/dL (32-36); Mean Corpuscular Hgb 38.1 pg (27.0-32.0); Mean Corpuscular Volume 104.9 fL (80-94); Monocyte# 0.31 X10^3/uL; Monocyte% 8.3 % (0-10); NRBC Flagged by Analyzer 0 % (0-5); Neutrophil # 2.31 X10^3/uL (2.7-7.7); Neutrophil % 61.6 % (47-70); POSITIVE COUNT YES; Platelet Count 80 K/mm3 (150-450); RBC Distribution Width CV 14.6 % (11.6-14.6); RBC Distribution Width SD 55.8 fl (35.1-43.9); Red Blood Count 3.49 M/mm3 (4.6-6.2); White Blood Count 3.8 K/mm3 (4.4-11.0)
--- OUTSIDE RECORDS SUMMARY | 2025-01-04 09:00 | XMS RPT_ITS | CCD ---
Author Organization [facility] Care Team Providers Care Access Tech Name Role Phone Deisi SAMPLE DRILLER, SAMPLE DRILLER-C Debra Manuel Attending Provider [phone] Care Physician, No Primary Primary Care Provider Unavailable Care Physician, No Primary Referring Provider Un available Unavailable Primary Care Provider Unavailabl e Dr. Greg Goddard Attending Provider [phone] Dr. Nate Martinez Attending Provider [phone] Dr. Nate Martinez Other Provider [phone] Dr. Greg Goddard Primary Care Provider Dr. Greg Goddard Referring Provider [phone] Dr. Greg Goddard Primary Care Provider Dr. Greg Goddard Referring Provider [phone] Care Physician, No Primary Referring Provider Un available Dr. Greg Goddard Attending Provider [phone]) Care Physician, No Primary Referring Provider Un available Dr. Nate Martinez Attending Provider [phone] Dr. Greg Goddard Primary Care Provider Dr. Greg Goddard Referring Provider [phone] Dr. Nate Martinez Other Provider [phone] Deisi CALIX, YOGI-Juliana Manuel Attending Provider [phone] Dr. Greg Goddard Primary Care Provider Dr. Nate Martinez Attending Provider [phone] Dr. Greg Goddard Primary Care Provider Dr. Greg Goddard Referring Provider [phone] Dr. Nate Martinez Attending Provider [phone] Michelle, Dr. Sullivan Other Provider [phone] Deisi SAMPLE DRILLER, SAMPLE DRILLER-C Debra Manuel Attending Provider [phone] Dr. Amanda Palomo Emergency Provider Dr. Nemesio Beltran Admit Provider Dr. Nemesio Beltran Attending Provider Dr. Nemesio Beltran Other Provider Ginny, Dr. Tara Flores Attending Provider Ginny, Dr. Tara Flores Other Provider Dr. Galina Garcia Attending Provider Dr. Galina Garcia Other Provider Dr. Greg Goddard Primary Care Provider Dr. Greg Goddard Referring Provider [phone] FriendDr. Sullivan Attending Provider [phone] Dr. Nate Martinez Other Provider [phone] Galina Garcia Referring Provider GREG GODDARD Primary Care Unavailable ELLEN HOOKSODORA (RES) Admitting JERRI Tariq (RES) Attending ARON Dukes Consulting Unavailable BRITANY HAIDER Attending Unavailable BRITANY [...] Unavailable No Family, Physician Primary Care Unavailable ALEX NOGUEIRA Admitting Unavailable ALEX NOGUEIRA Consulting Unavailable ALEX NOGUEIRA Attending Unavailable YONAS BARON Consulting Unavailable MCKINLEY LIZAMA Consulting Unavailable SANDRA ORELLANA Consulting Unavailable No Family, Physician Primary Care Unavailable STRAFFIN, CLIFF Referring Unavailable No Family, Physician Primary Care Unavailable STRADORCASIN, CLIFF Referring Unavailable No Family, Physician Primary Care Unavailable GALA, CIPRIANO D Referring Unavailable No Family, Physician Primary Care Unavailable GALACIPRIANO GONZALES Referring Unavailable Katia Lan MD Primary Care Provider [phone] PITER GAINES JR Attending Unavailable OMRAN, YASSMAKENNA Primary Care Unavailable EUGENIE, NIZAR N Referring Unavailable EUGENIE NIZAR N Attending Unavailable GREG GODDARD Primary Care Unavailable EUGENIE NIZAR N Attending Unavailable GREG GODDARD Primary Care Unavailable SELF Referring Unavailable OMRAN, YASSER Primary Care Unavailable EUGENIE, NIZAR N Referring Unavailable OMRAN, YASSER Primary Care Unavailable EUGENIE, NIZAR N Referring Unavailable EUGENIE, NIZAR N Attending Unavailable RIKY YASSER Primary Care Unavailable PHYSICIAN, NOT RECORDED Primary Care Physician U navailable ISIDRO UPTON MD Attending Unavailable ISIDRO UPTON MD Primary Care Unavailable ISIDRO UPTON MD Admitting Unavailable KATIA LAN MD Admitting Unavailable KATIA LAN MD Attending Unavailable KATIA LAN MD Primary Care Unavailable KATIA LAN MD Attending Unavailable KATIA LAN MD Primary Care Unavailable KATIA LAN MD Admitting Unavailable PHYSICIAN, NOT RECORDED Primary Care Unavaila FREDERICK Kaminski MD Attending Unavail able WAQAS HOLGUIN MD Attending Unavailable PHYSICIAN, NOT RECORDED Primary Care Unavaila sabrina GARSIA MD, DR ALAN Attending Unavailab le PHYSICIAN, NOT RECORDED Primary Care Unavaila ble PHYSICIAN, NOT RECORDED Primary Care Unavaila sabrina UPTON MD, DR ISIDRO Arce Attending Unavailabl e Dewayne Eric Attending Unavailable Hernesto, Dewayne Referring Unavailable Lidia Otero Primary Care Unavailabl e Dewayne Eric Attending Unavailable Hernesto, Dewayne Referring Unavailable Omran, Yasser Primary Care Unavailable Min Butt Attending Unavailable Lidia Otero Primary Care UnavailKatia Huizar Primary Care Unavailable Katia Lan Referring Unavailable Dewayne Eric Attending Unavailable Jami Gabriel Attending Unavailable Lidia Otero Primary Care Unavailabl Min Husain Attending Unavailable Lidia Otero Primary Care Unavailabl e Allergies Allergy Classification Reported Allergen(s) Allergy Type Date of Onset Reaction(s) Facility (20 sources) pioglitazone; Translations: [PIOGLITAZONE] Drug Allergy 10-14-2021 Unknown [facility] (1 source) pioglitazone Drug Allergy [facility] Repository (1 source) pioglitazone Drug Allergy 12-20-2024 [facility] Repository Medications Current Medications Medication Drug Class(es) [...] 11:00pm docusate sodium 50 mg / sennosides, snf 8.6 mg oral tablet (3 sources) Start: [...] Oral, 2 TIMES DAILY, First dose on Leatha 07/27/23 at 2230, Until Discontinued doxepin hydrochloride 10 [...] Acid Discontinued 1 MG PO DAILY 90 October 20, 2021 3:54pm May 02, 2022 2:14pm Comment on [...] Take 40 mg by mouth once daily. Sahley-Tussin DM 20 mg-200 mg/10 mL oral liquid (1 source) Start: 025 take 1 dose by mouth every eight hours as needed for cough and congestion Ashley-Tussin DM 20 mg-200 mg/10 mL oral liquid Dose = 10 mL, Oral, q8h, PRN Cough and congestion, 0 Refill(s) Start Date: 11/27/24 Status: Ordered Repeat number: 1 1 ml heparin sodium, porcine 74285 unt/ml injection (1 source) Unfractionated Heparin, Anti-coagulant Start: 024 heparin (porcine) injection 5,000 Units hydrOXYzine pamoate 50 mg oral capsule (7 sources) Antihistamine Start: 022 hydrOXYzine pamoate (VISTARIL) 50 mg capsule Ones [...] Active 500 MG PO EVERY 8 HOURS 0 June 21, 2022 12:00am Start: 05-17-2022 End: 06-21-2022 take 1 capsule by mouth three times daily Metronidazole (Flagyl) 375 mg capsule Discontinued 375 MG PO THREE TIMES A DAY 90 May 16, 2022 11:00pm June 21, 2022 [...] Start: 12-11-2023 take 2 tablets by mo ut once daily at bedtime QUEtiapine (SEROQUEL) 50 [...] 550 mg tablet Active 0 .ROUTE .COMPLEX 60 May 30, 2022 8:18am take 1 tablet [...] 2022 6:07pm take 4 tablets by mo ut once daily sertraline (ZOLOFT) 50 mg tablet [...] (2 times per day), First dose on Leatha 07/27/23 at 2230, Until Discontinued For Line Patency: [...] Comment on above: Take 1,000 mcg by [facility] once daily. 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 The legal definition of intoxication varies according to local law. Performed By: #### L 505.5000, L100.0100, L501.9100, L500.2500 ####[facility] [address] [place], [address] Basic Metabolic Profile (BMP )on 12-20-2024 BUN/CRE 10.8 RATIO Normal 10-20 [facility] Comment on above: Performed By: #### L 505.5000, L100.0100, L501.9100, L500.2500 ####[facility] [address] [place], [address] Calcium [Mass/Vol] 8.0 mg/dL Normal 7.6-11.0 [facility] Comment on above: Performed By: #### L 505.5000, L100.0100, L501.9100, L500.2500 ####[facility] [address] [place], [address] Chloride [Moles/Vol] 104 mmol/L Normal 98-108 [facility] Comment on above: Performed By: #### L 505.5000, L100.0100, L501.9100, L500.2500 ####[facility] [address] [place], [address] CO2 [Moles/Vol] 21.3 mmol/L Normal 21.0-32.0 [facility] Comment on above: Performed By: #### L 505.5000, L100.0100, L501.9100, L500.2500 ####[facility] [address] [place], [address] Creatinine [Mass/Vol] 0.84 mg/dL Normal 0.70-1.20 [facility] Comment on above: Performed By: #### L 505.5000, L100.0100, L501.9100, L500.2500 ####[facility] [address] [place], [address] ECRCL 112.38 ml/min Normal 50-250 [facility] Comment on above: Performed By: #### L 505.5000, L100.0100, L501.9100, L500.2500 ####[facility] [address] [place], [address] GAP 11 Normal 5-15 [facility] Comment on above: Performed By: #### L 505.5000, L100.0100, L501.9100, L500.2500 ####[facility] [address] [place], [address] GFR/1.73 sq M.predicted among non-blacks MDRD (S/P/Bld) [Vol rate/Area] 106 mL/min/{1.73_m2} Normal >60 [facility] Comment on above: Result Comment: mL/m in/1.73m2 CKD-EPI Creatinine Equation (2020) Performed By: #### L 505.5000, L100.0100, L501.9100, L500.2500 ####[facility] [address] [place], [address] Glucose [Mass/Vol] 178 mg/dL High 70-99 [facility] Comment on above: Performed By: #### L 505.5000, L100.0100, L501.9100, L500.2500 ####[facility] [address] [place], [address] Potassium [Moles/Vol] 3.0 mmol/L Low 3.3-5.1 [facility] Comment on above: Performed By: #### L 505.5000, L100.0100, L501.9100, L500.2500 ####[facility] [address] [place], [address] Sodium [Moles/Vol] 137 mmol/L Normal 133-145 [facility] Comment on above: Performed By: #### L 505.5000, L100.0100, L501.9100, L500.2500 ####[facility] [address] [place], [address] Urea nitrogen [Mass/Vol] 9 mg/dL Normal 4-19 [facility] Comment on above: Performed By: #### L 505.5000, L100.0100, L501.9100, L500.2500 ####[facility] [address] [place], [address] CBC W/Diff, Automatedon 06-0 -2024 Absolute Lymph 1.39 X10 3/uL Normal 0.83-4.51 [facility] Comment on above: Performed By: #### L 505.5000, L100.0100, L501.9100, L500.2500 ####[facility] [address] [place], [address] Absolute Neut 2.4 X10 3/uL Normal 2.0-7.7 [facility] Comment on above: Performed By: #### L 505.5000, L100.0100, L501.9100, L500.2500 ####[facility] [address] [place], [address] Basophils/100 WBC (Bld) 0.7 % Normal 0-1 [facility] Comment on above: Performed By: #### L 505.5000, L100.0100, L501.9100, L500.2500 ####[facility] [address] [place], [address] Eosinophils/100 WBC (Bld) 4.3 % Normal 0-5 [facility] Comment on above: Performed By: #### L 505.5000, L100.0100, L501.9100, L500.2500 ####[facility] [address] [place], [address] Erythrocyte distribution width (RBC) [Ratio] 14.7 % High 11.6-14.6 [facility] Comment on above: Performed By: #### L 505.5000, L100.0100, L501.9100, L500.2500 ####[facility] [address] [place], [address] Hematocrit (Bld) [Volume fraction] 33.6 % Low 40-54 [facility] Comment on above: Performed By: #### L 505.5000, L100.0100, L501.9100, L500.2500 ####[facility] [address] [place], [address] Hemoglobin (Bld) [Mass/Vol] 12.3 g/dL Low 13.0-16.5 [facility] Comment on above: Performed By: #### L 505.5000, L100.0100, L501.9100, L500.2500 ####[facility] [address] [place], [address] IG% 0.200 Normal 0.0-0.9 [facility] Comment on above: Result Comment: IG% - Immature Granulocytes (promyelocytes, myelocytes and metamyelocytes) > 1% indicates that a LEFT SHIFT is Present. Performed By: #### L 505.5000, L100.0100, L501.9100, L500.2500 ####[facility] [address] [place], [address] Lymphocytes/100 WBC (Bld) 31.2 % Normal 19-41 [facility] Comment on above: Performed By: #### L 505.5000, L100.0100, L501.9100, L500.2500 ####[facility] [address] [place], [address] MCH (RBC) [Entitic mass] 38.3 pg High 27.0-32.0 [facility] Comment on above: Performed By: #### L 505.5000, L100.0100, L501.9100, L500.2500 ####[facility] [address] [place], [address] MCHC (RBC) [Mass/Vol] 36.6 g/dL High 32-36 [facility] Comment on above: Performed By: #### L 505.5000, L100.0100, L501.9100, L500.2500 ####[facility] [address] [place], [address] MCV (RBC) [Entitic vol] 104.7 fL High 80-94 [facility] Comment on above: Performed By: #### L 505.5000, L100.0100, L501.9100, L500.2500 ####[facility] [address] [place], [address] Monocytes/100 WBC (Bld) 9.2 % Normal 0-10 [facility] Comment on above: Performed By: #### L 505.5000, L100.0100, L501.9100, L500.2500 ####[facility] [address] [place], [address] Neutrophils/100 WBC (Bld) 54.4 % Normal 47-70 [facility] Comment on above: Performed By: #### L 505.5000, L100.0100, L501.9100, L500.2500 ####[facility] [address] [place], [address] Nucleated RBC (Bld) [#/Vol] 0 10*3/uL Normal 0-5 [facility] Comment on above: Performed By: #### L 505.5000, L100.0100, L501.9100, L500.2500 ####[facility] [address] [place], [address] Platelet mean volume (Bld) [Entitic vol] 9.8 fL Normal 6.2-12.0 [facility] Comment on above: Performed By: #### L 505.5000, L100.0100, L501.9100, L500.2500 ####[facility] [address] [place], [address] Platelets (Bld) [#/Vol] 75 10*3/uL Low 150-450 [facility] Comment on above: Performed By: #### L 505.5000, L100.0100, L501.9100, L500.2500 ####[facility] [address] [place], [address] RBC (Bld) [#/Vol] 3.21 10*6/uL Low 4.6-6.2 [facility] Comment on above: Performed By: #### L 505.5000, L100.0100, L501.9100, L500.2500 ####[facility] [address] [place], [address] RDW SD 57.1 fl High 35.1-43.9 [facility] Comment on above: Performed By: #### L 505.5000, L100.0100, L501.9100, L500.2500 ####[facility] [address] [place], [address] WBC (Bld) [#/Vol] 4.5 10*3/uL Normal 4.4-11.0 [facility] Comment on above: Performed By: #### L 505.5000, L100.0100, L501.9100, L500.2500 ####[facility] [address] [place], [address] Emergency Department Summary on 12-20-2024 Emergency Department Summary [facility] Medical Records Department [address] [place] [address] Emergency Department Summary 12/20/24 MR#: [id number] Acct: [id number] Name: ALEX ROJO Rep #: [id number] : 1975 49 From: Min Butt DO PCP: Lidia Otero MD Status:REG ER Location: ED HPI History of Present Illness Chief Complaint: Suicidal Informant: patient and EMS Narrative Narrative: Patient is a 49-year-old male who stays at assisted living as he has a past history of alcohol abuse which is led to alcoholic cirrhosis. He also has a history of anxiety and depression. He states that life sucks and he has been feeling depressed and this evening thought about hurting himself. He states he took his hunting knife and cut his left wrist with intent to perform self-harm. When assisted living was informed of his injury and intent EMS was called and he was brought to the hospital for evaluation. Patient denies any alcohol or drug use this evening. He states his tetanus was updated roughly 1 to 2 months ago. He states he has not had to be hospitalized psychiatrically for multiple years. He also reports that as he is in assisted living he does not have access to his pills as they give them to him and that he did handover his hunting knife to the assisted living staff so he no longer has access to weapons. [facility] Medical History Former tobacco use History of [...] mg tablet 650 mg PO Q6H PRN fever or pain Unknown History aripiprazole 15 mg tablet 15 mg PO DAILY 10/24/24 Unknown Hi story melatonin 3 mg tablet 3 mg PO QHS 10/24/24 Unknown Histo ry menthol 4 % topical gel (Biofreeze 1 applic topical TID PRN pain Unknown History (menthol)) sennosides 8.6 mg-docusate sodium 1 tab PO QDAY 10/24/24 Unknown Hi story 50 mg tablet (Senexon-S) sodium chloride 0.65 % nasal spray 2 spray intranasal Q6H PRN PRN 0 10/24/24 Unknown History aerosol (Deep Sea Nasal) nasal congestion thiamine HCl (vitamin B1) 100 mg 100 mg PO QDAY VITAMIN 10/24/24 Un known History tablet (Vitamin B-1) quetiapine 50 mg tablet 50 mg PO QHS 10/28/24 Unknown Hist ory sertraline 100 mg tablet 100 mg PO QHS DEPRES 10/28/24 Unkn own History lactulose 20 gram/30 mL oral 20 g (30 mL) PO TID #0 mL 11/09/24 Unknown Rx solution clotrimazole 1 % topical cream 1 applic topical Q12H 12/20/24 Unk nown History lactulose 10 gram/15 mL oral 15 ml PO DAILY PRN constipation Unknown History solution spironolactone 25 mg tablet 25 mg PO DAILY 12/20/24 Unknown Hi story Allergy/AdvReac Type Severity Reaction Status Date / Time pioglitazone Allergy Mild liver Verified 12/20/24 02:33 damange Family History Other CVA (cerebral vascular [...] Constitutional Constitutional ED: Denies chills or fever(s) ENT ENT ED: Denies sore throat Cardiovascular Cardiovascular: Denies chest pain Respiratory/Chest Respiratory/Chest: Denies cough or dyspnea Gastrointestinal Gastrointestinal: Denies abdominal pain, diarrhea, nausea or vomiting Genitourinary Genitourinary ED: Denies dysuria Musculoskeletal Musculoskeletal: Denies myalgias Integumentary Reports other Details: Positive left wrist laceration Neurologic Neurologic: Denies headache(s) Psychiatric Psychiatric: Reports anxiety, depression, suicidal ideation and suicidal thoughts Hematologic/Lymphatic Hematologic/Lymphat (more content not included)... Normal [facility] Urine Drug Screen (VISTA)on 12-20-2024 AMPHETAMINES Negative Normal <1000 ng/mL [facility] Comment on above: Performed By: #### L 505.5000, L100.0100, L501.9100, L500.2500 ####[facility] [address] [place], [place], [phone] BARBITIURATES Negative Normal < 200 ng/mL [facility] Comment on above: Performed By: #### L 505.5000, L100.0100, L501.9100, L500.2500 ####[facility] [address] [place] [address] BENZODIAZIPINE Negative Normal < 200 ng/mL [facility] Comment on above: Performed By: #### L 505.5000, L100.0100, L501.9100, L500.2500 ####[facility] [address] [place] [address] BUP Ur Drug Scr Negative Normal < 200 ng/mL [facility] Comment on above: Performed By: #### L 505.5000, L100.0100, L501.9100, L500.2500 ####[facility] [address] [place], [place], [phone] COCAINE Negative Normal < 300 ng/mL [facility] Comment on above: Performed By: #### L 505.5000, L100.0100, L501.9100, L500.2500 ####[facility] [address] [place], [place], [phone] Fentanyl Negative Normal [facility] Comment on above: Performed By: #### L 505.5000, L100.0100, L501.9100, L500.2500 ####[facility] [address] [place] [address] METHADONE Negative Normal < 300 ng/mL [facility] Comment on above: Performed By: #### L 505.5000, L100.0100, L501.9100, L500.2500 ####[facility] [address] [place], [address] OPIATES Negative Normal < 300 ng/mL [facility] Comment on above: Performed By: #### L 505.5000, L100.0100, L501.9100, L500.2500 ####[facility] [address] [place], [address] OXYCODONE Negative Normal < 100 ng/mL [facility] Comment on above: Performed By: #### L 505.5000, L100.0100, L501.9100, L500.2500 ####[facility] [address] [place], [address] PCP Negative Normal < 25 ng/mL [facility] Comment on above: Performed By: #### L 505.5000, L100.0100, L501.9100, L500.2500 ####[facility] [address] [place], [address] THC Negative Normal < 50 ng/mL [facility] Comment on above: Performed By: #### L 505.5000, L100.0100, L501.9100, L500.2500 ####[facility] [address] [place], [address] Ammoniaon 11-09-2024 Ammonia (P) [Moles/Vol] 136.0 umol/L High 16-60 [facility] Comment on above: Performed By: #### L 503.5510, L500.3400, L100.0100, L500.2500 #### [facility] [address] [place], [address] Basic Metabolic Profile (BMP )on 11-09-2024 BUN/CRE 12.6 RATIO Normal 10-20 [facility] Comment on above: Performed By: #### L 503.5510, L500.3400, L100.0100, L500.2500 #### [facility] [address] [place], [address] Calcium [Mass/Vol] 8.6 mg/dL Normal 7.6-11.0 [facility] Comment on above: Performed By: #### L 503.5510, L500.3400, L100.0100, L500.2500 #### [facility] [address] [place], [address] Chloride [Moles/Vol] 107 mmol/L Normal 98-108 [facility] Comment on above: Performed By: #### L 503.5510, L500.3400, L100.0100, L500.2500 #### [facility] [address] [place], [address] CO2 [Moles/Vol] 23.6 mmol/L Normal 21.0-32.0 [facility] Comment on above: Performed By: #### L 503.5510, L500.3400, L100.0100, L500.2500 #### [facility] [address] [place], [address] Creatinine [Mass/Vol] 0.88 mg/dL Normal 0.70-1.20 [facility] Comment on above: Performed By: #### L 503.5510, L500.3400, L100.0100, L500.2500 #### [facility] [address] [place], [address] ECRCL 110.80 ml/min Normal 50-250 [facility] Comment on above: Performed By: #### L 503.5510, L500.3400, L100.0100, L500.2500 #### [facility] [address] [place], [address] GAP 10 Normal 5-15 [facility] Comment on above: Performed By: #### L 503.5510, L500.3400, L100.0100, L500.2500 #### [facility] [address] [place], [address] GFR/1.73 sq M.predicted among non-blacks MDRD (S/P/Bld) [Vol rate/Area] 105 mL/min/{1.73_m2} Normal >60 [facility] Comment on above: Result Comment: mL/m in/1.73m2 CKD-EPI Creatinine Equation (2020) Performed By: #### L 503.5510, L500.3400, L100.0100, L500.2500 #### [facility] [address] [place], [address] Glucose [Mass/Vol] 108 mg/dL High 70-99 [facility] Comment on above: Performed By: #### L 503.5510, L500.3400, L100.0100, L500.2500 #### [facility] [address] [place], [address] Potassium [Moles/Vol] 3.7 mmol/L Normal 3.3-5.1 [facility] Comment on above: Performed By: #### L 503.5510, L500.3400, L100.0100, L500.2500 #### [facility] [address] [place], [address] Sodium [Moles/Vol] 140 mmol/L Normal 133-145 [facility] Comment on above: Performed By: #### L 503.5510, L500.3400, L100.0100, L500.2500 #### [facility] [address] [place], [address] Urea nitrogen [Mass/Vol] 11 mg/dL Normal 4-19 [facility] Comment on above: Performed By: #### L 503.5510, L500.3400, L100.0100, L500.2500 #### [facility] [address] [place], [address] Brain/Head without Contrasto n 11-09-2024 Brain/Head without Contrast [facility] Imaging Services [address] [place] [address] Brain/Head without Contrast MR#: [id number] Acct: [id number] Name: ALEX ROJO Rep #: [id number] : 1975 M 49 From: Dirk Carmona MD PCP: Lidia Otero MD Status: PRE ER Study: Brain/Head without Contrast Date of Exam: 10/16 01/08 Exam# [id number] Ordering Dr: Jami Gabriel DO EXAM: CT [...] Mild small vessel ischemic/degenerative changes. Reading Location: [facility] CC: Lidia Otero MD; Dr. Jami Gabriel DO Superior Court Judge: Signed Normal [facility] CBC W/Diff, Automatedon 10-16 OVALOCYTE 1+ Normal [facility] Comment on above: Performed By: #### L 503.5510, L500.3400, L100.0100, L500.2500 #### [facility] [address] [place], [address] PLT EST MOD DEC Normal ADEQ [facility] Comment on above: Performed By: #### L 503.5510, L500.3400, L100.0100, L500.2500 #### [facility] [address] [place], [address] POLYCHROMASIA 1+ Normal [facility] Comment on above: Performed By: #### L 503.5510, L500.3400, L100.0100, L500.2500 #### [facility] [address] [place], [address] Chest 1 View (Portable)on Chest 1 View (Portable) [facility] Imaging Services [address] [place] [address] Chest 1 View (Portable) MR#: [id number] Acct: [id number] Name: ALEX ROJO Rep #: [id number] : 1975 M 49 From: Dirk Carmona MD PCP: Lidia Otero MD Status: PRE ER Study: Chest 1 View (Portable) Date of Exam: 11/09/24 Exam# [id number] Ordering Dr: Jami Gabriel DO EXAM: XR Chest, 1 View CLINICAL INDICATION: CONFUSION TECHNIQUE: Frontal view of the chest. COMPARISON: No relevant prior studies available. FINDINGS: LUNGS AND PLEURAL SPACES: Unremarkable. No consolidation. No pneumothorax. HEART: Unremarkable. No cardiomegaly. MEDIASTINUM: Unremarkable. Normal mediastinal contour. BONES/JOINTS: Unremarkable. No acute fracture. RAD/Chest 1 View (Portable) IMPRESSION: No acute cardiopulmonary process. Reading Location: [facility] CC: Lidia Otero MD; Dr. Jami Gabriel DO Superior Court Judge: Signed Normal [facility] Emergency Department Summary on 11-09-[address] [facility] Medical Records Department [address] [place] [address] Emergency Department Summary 11/09/24 MR#: [id number] Acct: [id number] Name: ALEX ROJO Rep #: [id number] : 1975 49 From: Jami Gabriel DO [...] other complaints or concerns at this time. [facility] Medical History Former tobacco use History of [...] Vital Signs: (more content not included)... Normal [facility] Liver Profileon 11-09-2024 Albumin [Mass/Vol] 3.4 g/dL Low 3.5-5.0 [facility] Comment on above: Performed By: #### L 503.5510, L500.3400, L100.0100, L500.2500 #### [facility] [address] [place], [address] ALK PHOS 212 U/L High 40-129 [facility] Comment on above: Performed By: #### L 503.5510, L500.3400, L100.0100, L500.2500 #### [facility] [address] [place], [address] ALT [Catalytic activity/Vol] 31 U/L Normal <=46 [facility] Comment on above: Performed By: #### L 503.5510, L500.3400, L100.0100, L500.2500 #### [facility] [address] [place], [address] AST [Catalytic activity/Vol] 60 U/L High <=37 [facility] Comment on above: Performed By: #### L 503.5510, L500.3400, L100.0100, L500.2500 #### [facility] [address] [place], [address] Bilirubin [Mass/Vol] 2.19 mg/dL High 0.00-1.30 [facility] Comment on above: Performed By: #### L 503.5510, L500.3400, L100.0100, L500.2500 #### [facility] [address] [place], [address] Bilirubin.direct [Mass/Vol] 1.11 mg/dL High 0.00-0.30 [facility] Comment on above: Performed By: #### L 503.5510, L500.3400, L100.0100, L500.2500 #### [facility] [address] [place], [address] Globulin (S) [Mass/Vol] 3.3 g/dL Normal 2.2-4.2 [facility] Comment on above: Performed By: #### L 503.5510, L500.3400, L100.0100, L500.2500 #### [facility] [address] [place], [address] T PROT 6.7 g/dL Normal 5.9-8.4 [facility] Comment on above: Performed By: #### L 503.5510, L500.3400, L100.0100, L500.2500 #### [facility] [address] [place], [address] Urinalysis, Completeon 11-09 WBC 0-5 SEEN Normal 0-5 [facility] Comment on above: Order Comment: CLEAN CATCH Performed By: #### L 400.0001 ####[facility] [address] [place], [address] BACTERIA 0 SEEN Normal None Seen [facility] Comment on above: Order Comment: CLEAN CATCH Performed By: #### L 400.0001 ####[facility] [address] [place], [address] EPI,SQUAMOUS 0 SEEN Normal 0-5 [facility] Comment on above: Order Comment: CLEAN CATCH Performed By: #### L 400.0001 ####[facility] [address] [place], [address] Mucus Ql (Urine sed) 0 SEEN Normal [facility] Comment on above: Order Comment: CLEAN CATCH Performed By: #### L 400.0001 ####[facility] [address] [place], [address] RBC 0 SEEN Normal 0-5 [facility] Comment on above: Order Comment: CLEAN CATCH Performed By: #### L 400.0001 ####[facility] [address] [place], [place], [address] .Urinalysis Microscopic (AO) on 11-03-2024 UA Hyal Cast 0-5 Abnormal [facility] Comment on above: Performed By: #### U A, UAMICAO ####[address] [place], [place] [address] UA Mucous 1+ /hpf Normal [facility] Comment on above: Performed By: #### U A, UAMICAO ####[address] [place], [place] [address] UA RBC 0-5 Abnormal None Seen [facility] Comment on above: Performed By: #### U A, UAMICAO ####[address] [place], [place] [address] UA Squam Epithelial 0-5 Abnormal None Seen [facility] Comment on above: Performed By: #### U A, UAMICAO ####[address] [place], [place] [address] UA WBC None Seen Normal None Seen [facility] Comment on above: Performed By: #### U A, UAMICAO ####[address] [place], [place] [address] UAon 11-03-2024 Color (U) [place] Abnormal [facility] Comment on above: Performed By: #### U A, UAMICAO ####[address] [place], [place] [address] Glucose (U) [Mass/Vol] Negative Normal Negative [facility] Comment on above: Performed By: #### U A, UAMICAO ####[address] [place] [address] Ketones Ql (U) Negative Normal Negative [facility] Comment on above: Performed By: #### U A, UAMICAO ####[address] [place] [address] UA Appear Clear Normal Clear [facility] Comment on above: Performed By: #### U A, UAMICAO ####[address] [place] [address] UA Bili Small Abnormal Negative [facility] Comment on above: Performed By: #### U A, UAMICAO ####[address] [place] [address] UA Blood Negative Normal Negative [facility] Comment on above: Performed By: #### U A, UAMICAO ####[address] [address] UA Leuk Est Negative Normal Negative [facility] Comment on above: Performed By: #### U A, UAMICAO ####[address] [address] UA Nitrite Negative Normal Negative [facility] Comment on above: Performed By: #### U A, UAMICAO ####[address] [place] [address] UA pH 6.5 Normal 5.0 - 8.0 [facility] Comment on above: Performed By: #### U A, UAMICAO ####[address] [place] [address] UA Protein Trace Normal Negative [facility] Comment on above: Performed By: #### U A, UAMICAO ####[address] [place] [address] UA Spec Grav 1.015 Normal 1.015-1.025 [facility] Comment on above: Performed By: #### U A, UAMICAO ####[facility] [place], [place] [address] UA Specimen Type Clean Catch Normal [facility] Comment on above: Performed By: #### CAROLYN Hernandes ####[address] [place], [place] [address] UA Urobilinogen 4.0 E.U./dL Abnormal 0.2-1.0 [facility] Comment on above: Performed By: #### U CAROLYN Porter ####[facility] [place], [place] [address] XR CHEST 2 VIEWSon 5 XR CHEST 2 VIEWS ORIGINAL EXAMINATION: TWO XRAY VIEWS OF THE CHEST 11/02/2024 11:47 pm COMPARISON: None. HISTORY: ORDERING SYSTEM PROVIDED HISTORY: Reason for Exam: Pt sent from [email or web address] d/t multiple falls today. Pt states he becomes dizzy and his legs give out causing him to fall. Pt denies any injury. Abdominal pain FINDINGS: The lungs are without acute focal process. There is no effusion or pneumothorax. The cardiomediastinal silhouette is without acute process. The osseous structures are without acute process. IMPRESSION: No acute process. Interpreted by: Hector Blnaca Preliminary Report By: Hector Blanca Electronically signed By Hector Blnaca Dictated Date: 11/03/2024 12:03:05 AM Prelim Date: 11/03/2024 12:03:38 AM Sign Date: 11/03/2024 12:03:38 AM Ordering Provider: FREDERICK Wilkerson [facility] .Auto Diffon 11-02-2024 Basophil, Absolute 0.0 10 3/mcL Normal 0.0-0.3 [facility] Comment on above: Performed By: #### C BC, DUARTE, CMP, MDW, ANEU, AMM, GFR #### [address] [place], [place] [address] Basophils/100 WBC (Bld) 0.7 % Normal 0.0-2.5 [facility] Comment on above: Performed By: #### C BC, ADEV, CMP, MDW, ANEU, AMM, GFR #### [address] [place], [place] [address] Eosinophil, Absolute 0.2 10 3/mcL Normal 0.0-0.7 [facility] Comment on above: Performed By: #### C BC, ADIFF, CMP, MDW, ANEU, AMM, GFR #### [address] [address] Eosinophils/100 WBC (Bld) 3.6 % Normal 0.0-6.0 [facility] Comment on above: Performed By: #### C BC, ADIFF, CMP, MDW, ANEU, AMM, GFR #### [address] [address] Lymphocyte, Absolute 1.5 10 3/mcL Normal 0.9-4.3 [facility] Comment on above: Performed By: #### C BC, ADIFF, CMP, MDW, ANEU, AMM, GFR #### [address] [address] Lymphocytes/100 WBC (Bld) 30.2 % Normal 20.0-40.0 [facility] Comment on above: Performed By: #### C BC, ADIFF, CMP, MDW, ANEU, AMM, GFR #### [address] [address] Monocyte, Absolute 0.5 10 3/mcL Normal 0.1-1.4 [facility] Comment on above: Performed By: #### C BC, ADIFF, CMP, MDW, ANEU, AMM, GFR #### [address] [address] Monocytes/100 WBC (Bld) 9.2 % Normal 2.0-13.0 [facility] Comment on above: Performed By: #### C BC, ADIFF, CMP, MDW, ANEU, AMM, GFR #### [address] [address] Neutrophils/100 WBC (Bld) 56.3 % Normal 50.0-75.0 [facility] Comment on above: Performed By: #### C BC, ADIFF, CMP, MDW, ANEU, AMM, GFR #### [address] [address] .GFRon 11-02-2024 Estimated Glomerular Filtration Rate 86 ml/min/1.73sqm Normal [facility] Comment on above: Result Comment: Stages of [...] eGFR results. Performed By: #### C BC, ADEV, CMP, MDW, ANEU, AMM, GFR #### [address] [address] .MDWon 11-02-2024 Monocyte Distribution Width 19.59 Normal 0.00-20.00 [facility] Comment on above: Result Comment: For ED adult patients suspected of sepsis, MDW<=20.0 does not rule out sepsis or risk of sepsis Performed By: #### C BC, DUARTE, CMP, MDW, ANEU, AMM, GFR #### [address] [address] .NEUABSon 11-02-2024 Neutrophil, Absolute 2.8 10 3/mcL Normal 2.3-8.1 [facility] Comment on above: Performed By: #### C BC, ADIFF, CMP, MDW, ANEU, AMM, GFR #### [address] [address] Onel 11-02-2024 Ammonia (P) [Moles/Vol] 114 umol/L High 11-32 [facility] Comment on above: Performed By: #### C BC, ADIFF, CMP, MDW, ANEU, AMM, GFR #### [address] [place], [place] [address] Ammoniaon 11-02-2024 Ammonia (P) [Moles/Vol] 138.0 umol/L High 16-60 [facility] Comment on above: Performed By: #### L 503.5510, L500.2500, L500.3400 ####[facility] [address] [place], [address] Basic Metabolic Profile (BMP )on 11-02-2024 BUN/CRE 12.9 RATIO Normal 10-20 [facility] Comment on above: Performed By: #### L 503.5510, L500.2500, L500.3400 ####[facility] [address] [place], [address] Calcium [Mass/Vol] 8.6 mg/dL Normal 7.6-11.0 [facility] Comment on above: Performed By: #### L 503.5510, L500.2500, L500.3400 ####[facility] [address] [place], [address] Chloride [Moles/Vol] 105 mmol/L Normal 98-108 [facility] Comment on above: Performed By: #### L 503.5510, L500.2500, L500.3400 ####[facility] [address] [place], [address] CO2 [Moles/Vol] 21.3 mmol/L Normal 21.0-32.0 [facility] Comment on above: Performed By: #### L 503.5510, L500.2500, L500.3400 ####[facility] [address] [place], [address] Creatinine [Mass/Vol] 0.91 mg/dL Normal 0.70-1.20 [facility] Comment on above: Performed By: #### L 503.5510, L500.2500, L500.3400 ####[facility] [address] [place], [address] ECRCL 108.93 ml/min Normal 50-250 [facility] Comment on above: Performed By: #### L 503.5510, L500.2500, L500.3400 ####[facility] [address] [place], [address] GAP 11 Normal 5-15 [facility] Comment on above: Performed By: #### L 503.5510, L500.2500, L500.3400 ####[facility] [address] [place], [address] GFR/1.73 sq M.predicted among non-blacks MDRD (S/P/Bld) [Vol rate/Area] 102 mL/min/{1.73_m2} Normal >60 [facility] Comment on above: Result Comment: mL/m in/1.73m2 CKD-EPI Creatinine Equation (2020) Performed By: #### L 503.5510, L500.2500, L500.3400 ####[facility] [address] [place], [address] Glucose [Mass/Vol] 92 mg/dL Normal 70-99 [facility] Comment on above: Performed By: #### L 503.5510, L500.2500, L500.3400 ####[facility] [address] [place], [address] Potassium [Moles/Vol] 3.8 mmol/L Normal 3.3-5.1 [facility] Comment on above: Result Comment: Hemo lysis present, Results??could be affected. ?? Performed By: #### L 503.5510, L500.2500, L500.3400 ####[facility] [address] [place] [place], [address] Sodium [Moles/Vol] 137 mmol/L Normal 133-145 [facility] Comment on above: Performed By: #### L 503.5510, L500.2500, L500.3400 ####[facility] [address] [place], [address] Urea nitrogen [Mass/Vol] 12 mg/dL Normal 4-19 [facility] Comment on above: Performed By: #### L 503.5510, L500.2500, L500.3400 ####[facility] [address] [place], [address] CBCon 11-02-2024 Erythrocyte distribution width (RBC) [Ratio] 14.7 % Normal 11.5-15.5 [facility] Comment on above: Performed By: #### C BC, ADIFF, CMP, MDW, ANEU, AMM, GFR #### [address] [address] Hematocrit (Bld) [Volume fraction] 36.2 % Low 40.0-52.0 [facility] Comment on above: Performed By: #### C BC, ADIFF, CMP, MDW, ANEU, AMM, GFR #### [address] [address] Hgb 13.0 G/dL Normal 13.0-17.5 [facility] Comment on above: Performed By: #### C BC, ADIFF, CMP, MDW, ANEU, AMM, GFR #### [address] [address] MCH (RBC) [Entitic mass] 38.1 pg High 27.0-33.0 [facility] Comment on above: Performed By: #### C BC, ADIFF, CMP, MDW, ANEU, AMM, GFR #### [address] [address] MCHC 36.0 G/dL Normal 32.0-36.0 [facility] Comment on above: Performed By: #### C BC, ADIFF, CMP, MDW, ANEU, AMM, GFR #### [address] [address] MCV (RBC) [Entitic vol] 105.7 fL High 81.0-100.0 [facility] Comment on above: Performed By: #### C XENA, DUARTE, MACK, W, ANEU, AMM, GFR #### [address] [place], [place] [address] Platelet 91 10 3/mcL Low 150-450 [facility] Comment on above: Performed By: #### C BC, ADEV, CMP, MDW, ANEU, AMM, GFR #### [address] [address] Platelet mean volume (Bld) [Entitic vol] 7.4 fL Normal 6.4-10.5 [facility] Comment on above: Performed By: #### C BC, DUARTE, MACK, W, ANEU, AMM, GFR #### [address] [address] RBC 3.43 10 6/mcL Low 4.50-6.00 [facility] Comment on above: Performed By: #### C BC, DUARTE, CMP, MDW, ANEU, AMM, GFR #### [address] [address] WBC 5.0 10 3/mcL Normal 4.5-10.8 [facility] Comment on above: Performed By: #### C BC, DUARTE, CMP, MDW, ANEU, AMM, GFR #### [address] [address] CBC W/Diff, Automatedon 10-15 Platelets (Bld) [#/Vol] 89 10*3/uL Low 150-450 [facility] Comment on above: Performed By: #### L 100.0100 ####[facility] [address] [place], [place], [address] CMPon 11-02-2024 Albumin Level 2.9 G/dL Low 3.5-5.0 [facility] Comment on above: Performed By: #### C BC, DUARTE, MACK, MDW, ANEU, AMM, GFR #### [address] [address] Albumin/Globulin [Mass ratio] 0.8 {ratio} Low 1.1-2.5 [facility] Comment on above: Performed By: #### C BC, ADIFF, CMP, MDW, ANEU, AMM, GFR #### [address] [address] ALP [Catalytic activity/Vol] 177 U/L High 40-135 [facility] Comment on above: Performed By: #### C BC, ADIFF, CMP, MDW, ANEU, AMM, GFR #### [address] [address] ALT [Catalytic activity/Vol] 52 U/L Normal 16-63 [facility] Comment on above: Performed By: #### C BC, ADIFF, CMP, MDW, ANEU, AMM, GFR #### [address] [address] AST [Catalytic activity/Vol] 75 U/L High 10-40 [facility] Comment on above: Performed By: #### C BC, ADIFF, CMP, MDW, ANEU, AMM, GFR #### [address] [address] Bili Total 2.8 mg/dL High 0.2-1.0 [facility] Comment on above: Result Comment: Use of this assay is not recommended for patients undergoing treatment with eltrombopag due to the potential for falsely elevated results. Performed By: #### C BC, ADIFF, CMP, MDW, ANEU, AMM, GFR #### [address] [address] BUN/Creatinine Ratio 14 ratio Normal 7-27 [facility] Comment on above: Performed By: #### C BC, ADIFF, CMP, MDW, ANEU, AMM, GFR #### [address] [address] Calcium [Mass/Vol] 8.3 mg/dL Low 8.4-10.2 [facility] Comment on above: Performed By: #### C BC, ADIFF, CMP, MDW, ANEU, AMM, GFR #### [place] [address] Chloride [Moles/Vol] 107 mmol/L Normal 98-107 [facility] Comment on above: Performed By: #### C BC, ADIFF, CMP, MDW, ANEU, AMM, GFR #### [place] [address] CO2 [Moles/Vol] 29 mmol/L Normal 22-29 [facility] Comment on above: Performed By: #### C BC, ADIFF, CMP, MDW, ANEU, AMM, GFR #### [place] [address] Creatinine [Mass/Vol] 1.05 mg/dL Normal 0.70-1.30 [facility] Comment on above: Result Comment: Test ing performed on [employer] Dimension EXL analyzer using a modified kinetic Nathan technique. Performed By: #### C BC, ADIFF, CMP, MDW, ANEU, AMM, GFR #### [place] [address] Electrolyte Balance 4.0 mEq/L Normal 4.0-15.0 [facility] Comment on above: Performed By: #### C BC, ADIFF, CMP, MDW, ANEU, AMM, GFR #### [place] [address] Globulin 3.8 G/dL Normal 1.5-3.8 [facility] Comment on above: Performed By: #### C BC, ADIFF, CMP, MDW, ANEU, AMM, GFR #### [place] [address] Glucose [Mass/Vol] 126 mg/dL High 70-105 [facility] Comment on above: Performed By: #### C BC, ADIFF, CMP, MDW, ANEU, AMM, GFR #### [place] [address] Potassium [Moles/Vol] 3.4 mmol/L Low 3.5-5.1 [facility] Comment on above: Performed By: #### C XENA, DUARTE, MACK, MAGY, ANEU, AMM, GFR #### [address] [place], [place] [address] Sodium [Moles/Vol] 140 mmol/L Normal 136-145 [facility] Comment on above: Performed By: #### C XEAN, DUARTE, MACK, MAGY, ANEU, AMM, GFR #### [address] [place], [place] [address] Total Protein 6.7 G/dL Normal 6.4-8.2 [facility] Comment on above: Performed By: #### C XENA, DUARTE, MACK, MAGY, ANEU, AMM, GFR #### [address] [address] Urea nitrogen [Mass/Vol] 15 mg/dL Normal 7-18 [facility] Comment on above: Performed By: #### C XENA, DUARTE, MACK, MAGY, ANEU, AMM, GFR #### [address] [address] Emergency Department Summary on 11-02-2024 Emergency Department Summary [facility] Medical Records Department [address] [place] [address] Emergency Department Summary 11/02/24 MR#: [id number] Acct: [id number] Name: ALEX ROJO Rep #: [id number] [...] standing at the nurses station at the assisted care facility where he stays. He states [...] checked secondary to his history of cirrhosis. [facility] Medical History Former tobacco use History of [...] surgery Social History housing: homeless current occupation: [employer] Smoking Status: Current every day smoker tobacco [...] Normal Respi (more content not included)... Normal [facility] Liver Profileon 11-02-2024 Albumin [Mass/Vol] 3.4 g/dL Low 3.5-5.0 [facility] Comment on above: Performed By: #### L 503.5510, L500.2500, L500.3400 ####[facility] [address] [place], [address] ALK PHOS 144 U/L High 40-129 [facility] Comment on above: Performed By: #### L 503.5510, L500.2500, L500.3400 ####[facility] [address] [place], [address] ALT [Catalytic activity/Vol] 51 U/L High <=46 [facility] Comment on above: Performed By: #### L 503.5510, L500.2500, L500.3400 ####[facility] [address] [place], [address] AST [Catalytic activity/Vol] 94 U/L High <=37 [facility] Comment on above: Result Comment: Hemo lysis present, Results??could be affected. ?? Performed By: #### L 503.5510, L500.2500, L500.3400 ####[facility] [address] [place], [address] Bilirubin [Mass/Vol] 2.90 mg/dL High 0.00-1.30 [facility] Comment on above: Performed By: #### L 503.5510, L500.2500, L500.3400 ####[facility] [address] [place], [address] Bilirubin.direct [Mass/Vol] 1.13 mg/dL High 0.00-0.30 [facility] Comment on above: Result Comment: Hemo lysis present, Results??could be affected. ?? Performed By: #### L 503.5510, L500.2500, L500.3400 ####[facility] [address] [place], [address] Globulin (S) [Mass/Vol] 3.3 g/dL Normal 2.2-4.2 [facility] Comment on above: Performed By: #### L 503.5510, L500.2500, L500.3400 ####[facility] [address] [place], [address] T PROT 6.8 g/dL Normal 5.9-8.4 [facility] Comment on above: Performed By: #### L 503.5510, L500.2500, L500.3400 ####[facility] [address] [place], [address] Urinalysis, Completeon 11-02 BACTERIA 2+ /hpf Normal None Seen [facility] Comment on above: Order Comment: CLEAN CATCH Performed By: #### L 400.0001 ####[facility] [address] [place], [address] EPI,SQUAMOUS 0 SEEN Normal 0-5 [facility] Comment on above: Order Comment: CLEAN CATCH Performed By: #### L 400.0001 ####[facility] [address] [place], [address] Mucus Ql (Urine sed) 0 SEEN Normal [facility] Comment on above: Order Comment: CLEAN CATCH Performed By: #### L 400.0001 ####[facility] [address] [place], [address] RBC 0 SEEN Normal 0-5 [facility] Comment on above: Order Comment: CLEAN CATCH Performed By: #### L 400.0001 ####[facility] [address] [place], [address] WBC 0 SEEN Normal 0-5 [facility] Comment on above: Order Comment: CLEAN CATCH Performed By: #### L 400.0001 ####[facility] [address] [place], [address] AFP, Tumor Markeron 10-26-19 25 AFP TUMOR DIRK 4.8 ng/mL Normal 0.0-6.9 [facility] Comment on above: Order Comment: N Result Comment: [facility] [employer] Electrochemiluminescence Immunoassay (ECLIA) Values obtained with different assay methods or kits cannot be used interchangeably. Results cannot be interpreted as absolute evidence of the presence or absence of malignant disease. This test is not interpretable in females. Performed at: [address] [id number] Bariatric Coordinator: Ciro Putnam PhD, Phone: [phone] Performed By: #### L 100.0100, L3890.6202, L503.5510, L500.4050, L501.6710, L501.9985, L3300.0700, L500.4100, L3000.0375, L300.3900, L504.2610 ####[facility] [address] [place], [address] Hepatitis Panel Acuteon - COMMENT Comment Normal . [facility] Comment on above: Result Comment: Not infected with HCV unless early or acute infection is suspected (which may be delayed in an immunocompromised individual), or other evidence exists to indicate HCV infection. Performed By: #### L 100.0100, L3890.6202, L503.5510, L500.4050, L501.6710, L501.9985, L3300.0700, L500.4100, L3000.0375, L300.3900, L504.2610 ####[facility] [address] [place], [address] HEP B CORE,IgM Negative Normal Negative [facility] Comment on above: Performed By: #### L 100.0100, L3890.6202, L503.5510, L500.4050, L501.6710, L501.9985, L3300.0700, L500.4100, L3000.0375, L300.3900, L504.2610 ####[facility] [address] [place], [address] HEP B SURF AG Negative Normal Negative [facility] Comment on above: Performed By: #### L 100.0100, L3890.6202, L503.5510, L500.4050, L501.6710, L501.9985, L3300.0700, L500.4100, L3000.0375, L300.3900, L504.2610 ####[facility] [address] [place], [address] HEP C VIRUS AB Non-Reactive Normal Non Reactive [facility] Comment on above: Performed By: #### L 100.0100, L3890.6202, L503.5510, L500.4050, L501.6710, L501.9985, L3300.0700, L500.4100, L3000.0375, L300.3900, L504.2610 ####[facility] [address] [place], [address] HEPATITIS A-IgM Negative Normal Negative [facility] Comment on above: Result Comment: A ne gative anti-HAV IgM result suggests no recent or current HAV infection. Performed By: #### L 100.0100, L3890.6202, L503.5510, L500.4050, L501.6710, L501.9985, L3300.0700, L500.4100, L3000.0375, L300.3900, L504.2610 ####[facility] [address] [place], [address] Ammoniaon 10-24-2024 Ammonia (P) [Moles/Vol] 185.0 umol/L High 16-60 [facility] Comment on above: Performed By: #### L 100.0100, L3890.6202, L503.5510, L500.4050, L501.6710, L501.9985, L3300.0700, L500.4100, L3000.0375, L300.3900, L504.2610 ####[facility] [address] [place], [address] CBC W/Diff, Automatedon 04-1 0-2024 Absolute Lymph 0.84 X10 3/uL Normal 0.83-4.51 [facility] Comment on above: Performed By: #### L 100.0100, L3890.6202, L503.5510, L500.4050, L501.6710, L501.9985, L3300.0700, L500.4100, L3000.0375, L300.3900, L504.2610 ####[facility] [address] [place], [place], [phone] Absolute Neut 2.4 X10 3/uL Normal 2.0-7.7 [facility] Comment on above: Performed By: #### L 100.0100, L3890.6202, L503.5510, L500.4050, L501.6710, L501.9985, L3300.0700, L500.4100, L3000.0375, L300.3900, L504.2610 ####[facility] [address] [place], [place], [address] Basophils/100 WBC (Bld) 0.6 % Normal 0-1 [facility] Comment on above: Performed By: #### L 100.0100, L3890.6202, L503.5510, L500.4050, L501.6710, L501.9985, L3300.0700, L500.4100, L3000.0375, L300.3900, L504.2610 ####[facility] [address] [place], [address] Eosinophils/100 WBC (Bld) 1.4 % Normal 0-5 [facility] Comment on above: Performed By: #### L 100.0100, L3890.6202, L503.5510, L500.4050, L501.6710, L501.9985, L3300.0700, L500.4100, L3000.0375, L300.3900, L504.2610 ####[facility] [address] [place], [place], [address] Erythrocyte distribution width (RBC) [Ratio] 14.9 % High 11.6-14.6 [facility] Comment on above: Performed By: #### L 100.0100, L3890.6202, L503.5510, L500.4050, L501.6710, L501.9985, L3300.0700, L500.4100, L3000.0375, L300.3900, L504.2610 ####[facility] [address] [place], [address] Hematocrit (Bld) [Volume fraction] 36.1 % Low 40-54 [facility] Comment on above: Performed By: #### L 100.0100, L3890.6202, L503.5510, L500.4050, L501.6710, L501.9985, L3300.0700, L500.4100, L3000.0375, L300.3900, L504.2610 ####[facility] [address] [place], [address] Hemoglobin (Bld) [Mass/Vol] 13.1 g/dL Normal 13.0-16.5 [facility] Comment on above: Performed By: #### L 100.0100, L3890.6202, L503.5510, L500.4050, L501.6710, L501.9985, L3300.0700, L500.4100, L3000.0375, L300.3900, L504.2610 ####[facility] [address] [place], [address] IG% 0.300 Normal 0.0-0.9 [facility] Comment on above: Result Comment: IG% - Immature Granulocytes (promyelocytes, myelocytes and metamyelocytes) > 1% indicates that a LEFT SHIFT is Present. Performed By: #### L 100.0100, L3890.6202, L503.5510, L500.4050, L501.6710, L501.9985, L3300.0700, L500.4100, L3000.0375, L300.3900, L504.2610 ####[facility] [address] [place], [address] Lymphocytes/100 WBC (Bld) 23.1 % Normal 19-41 [facility] Comment on above: Performed By: #### L 100.0100, L3890.6202, L503.5510, L500.4050, L501.6710, L501.9985, L3300.0700, L500.4100, L3000.0375, L300.3900, L504.2610 ####[facility] [address] [place], [place], [phone] MCH (RBC) [Entitic mass] 37.1 pg High 27.0-32.0 [facility] Comment on above: Performed By: #### L 100.0100, L3890.6202, L503.5510, L500.4050, L501.6710, L501.9985, L3300.0700, L500.4100, L3000.0375, L300.3900, L504.2610 ####[facility] [address] [place], [address] MCHC (RBC) [Mass/Vol] 36.3 g/dL High 32-36 [facility] Comment on above: Performed By: #### L 100.0100, L3890.6202, L503.5510, L500.4050, L501.6710, L501.9985, L3300.0700, L500.4100, L3000.0375, L300.3900, L504.2610 ####[facility] [address] [place], [place], [address] MCV (RBC) [Entitic vol] 102.3 fL High 80-94 [facility] Comment on above: Performed By: #### L 100.0100, L3890.6202, L503.5510, L500.4050, L501.6710, L501.9985, L3300.0700, L500.4100, L3000.0375, L300.3900, L504.2610 ####[facility] [address] [place], [address](119) Monocytes/100 WBC (Bld) 9.1 % Normal 0-10 [facility] Comment on above: Performed By: #### L 100.0100, L3890.6202, L503.5510, L500.4050, L501.6710, L501.9985, L3300.0700, L500.4100, L3000.0375, L300.3900, L504.2610 ####[facility] [address] [place], [address](547) Neutrophils/100 WBC (Bld) 65.5 % Normal 47-70 [facility] Comment on above: Performed By: #### L 100.0100, L3890.6202, L503.5510, L500.4050, L501.6710, L501.9985, L3300.0700, L500.4100, L3000.0375, L300.3900, L504.2610 ####[facility] [address] [place], [place], [phone] Nucleated RBC (Bld) [#/Vol] 0 10*3/uL Normal 0-5 [facility] Comment on above: Performed By: #### L 100.0100, L3890.6202, L503.5510, L500.4050, L501.6710, L501.9985, L3300.0700, L500.4100, L3000.0375, L300.3900, L504.2610 ####[facility] [address] [place], [address] Platelet mean volume (Bld) [Entitic vol] 9.7 fL Normal 6.2-12.0 [facility] Comment on above: Performed By: #### L 100.0100, L3890.6202, L503.5510, L500.4050, L501.6710, L501.9985, L3300.0700, L500.4100, L3000.0375, L300.3900, L504.2610 ####[facility] [address] [place], [address] Platelets (Bld) [#/Vol] 80 10*3/uL Low 150-450 [facility] Comment on above: Performed By: #### L 100.0100, L3890.6202, L503.5510, L500.4050, L501.6710, L501.9985, L3300.0700, L500.4100, L3000.0375, L300.3900, L504.2610 ####[facility] [address] [place], [address] RBC (Bld) [#/Vol] 3.53 10*6/uL Low 4.6-6.2 [facility] Comment on above: Performed By: #### L 100.0100, L3890.6202, L503.5510, L500.4050, L501.6710, L501.9985, L3300.0700, L500.4100, L3000.0375, L300.3900, L504.2610 ####[facility] [address] [place], [address] RDW SD 56.4 fl High 35.1-43.9 [facility] Comment on above: Performed By: #### L 100.0100, L3890.6202, L503.5510, L500.4050, L501.6710, L501.9985, L3300.0700, L500.4100, L3000.0375, L300.3900, L504.2610 ####[facility] [address] [place], [place], [address] WBC (Bld) [#/Vol] 3.6 10*3/uL Low 4.4-11.0 [facility] Comment on above: Performed By: #### L 100.0100, L3890.6202, L503.5510, L500.4050, L501.6710, L501.9985, L3300.0700, L500.4100, L3000.0375, L300.3900, L504.2610 ####[facility] [address] [place], [place], [address] CRPon 10-24-2024 C-REACTIVE PROT < 3.00 Normal 0.0-3.0 [facility] Comment on above: Performed By: #### L 100.0100, L3890.6202, L503.5510, L500.4050, L501.6710, L501.9985, L3300.0700, L500.4100, L3000.0375, L300.3900, L504.2610 ####[facility] [address] [place], [place], [phone] Comprehensive Metabolic Prof ilon 10-24-2024 Albumin [Mass/Vol] 3.7 g/dL Normal 3.5-5.0 [facility] Comment on above: Performed By: #### L 100.0100, L3890.6202, L503.5510, L500.4050, L501.6710, L501.9985, L3300.0700, L500.4100, L3000.0375, L300.3900, L504.2610 ####[facility] [address] [place], [place], [address] Albumin/Globulin [Mass ratio] 1.2 {ratio} Normal 0.9-2.4 [facility] Comment on above: Performed By: #### L 100.0100, L3890.6202, L503.5510, L500.4050, L501.6710, L501.9985, L3300.0700, L500.4100, L3000.0375, L300.3900, L504.2610 ####[facility] [address] [place], [place], [phone] ALK PHOS 203 U/L High 40-129 [facility] Comment on above: Performed By: #### L 100.0100, L3890.6202, L503.5510, L500.4050, L501.6710, L501.9985, L3300.0700, L500.4100, L3000.0375, L300.3900, L504.2610 ####[facility] [address] [place], [place], [phone] ALT [Catalytic activity/Vol] 84 U/L High <=46 [facility] Comment on above: Performed By: #### L 100.0100, L3890.6202, L503.5510, L500.4050, L501.6710, L501.9985, L3300.0700, L500.4100, L3000.0375, L300.3900, L504.2610 ####[facility] [address] [place], [place], [phone] AST [Catalytic activity/Vol] 165 U/L High <=37 [facility] Comment on above: Performed By: #### L 100.0100, L3890.6202, L503.5510, L500.4050, L501.6710, L501.9985, L3300.0700, L500.4100, L3000.0375, L300.3900, L504.2610 ####[facility] [address] [place], [place], [phone] Bilirubin [Mass/Vol] 2.65 mg/dL High 0.00-1.30 [facility] Comment on above: Performed By: #### L 100.0100, L3890.6202, L503.5510, L500.4050, L501.6710, L501.9985, L3300.0700, L500.4100, L3000.0375, L300.3900, L504.2610 ####[facility] [address] [place], [address] BUN/CRE 13.1 RATIO Normal 10-20 [facility] Comment on above: Performed By: #### L 100.0100, L3890.6202, L503.5510, L500.4050, L501.6710, L501.9985, L3300.0700, L500.4100, L3000.0375, L300.3900, L504.2610 ####[facility] [address] [place], [place], [phone](609) Calcium [Mass/Vol] 9.1 mg/dL Normal 7.6-11.0 [facility] Comment on above: Performed By: #### L 100.0100, L3890.6202, L503.5510, L500.4050, L501.6710, L501.9985, L3300.0700, L500.4100, L3000.0375, L300.3900, L504.2610 ####[facility] [address] [place], [place], [phone](630) Chloride [Moles/Vol] 107 mmol/L Normal 98-108 [facility] Comment on above: Performed By: #### L 100.0100, L3890.6202, L503.5510, L500.4050, L501.6710, L501.9985, L3300.0700, L500.4100, L3000.0375, L300.3900, L504.2610 ####[facility] [address] [place], [place], [phone](722) CO2 [Moles/Vol] 22.2 mmol/L Normal 21.0-32.0 [facility] Comment on above: Performed By: #### L 100.0100, L3890.6202, L503.5510, L500.4050, L501.6710, L501.9985, L3300.0700, L500.4100, L3000.0375, L300.3900, L504.2610 ####[facility] [address] [place], [place], [address] Creatinine [Mass/Vol] 0.84 mg/dL Normal 0.70-1.20 [facility] Comment on above: Performed By: #### L 100.0100, L3890.6202, L503.5510, L500.4050, L501.6710, L501.9985, L3300.0700, L500.4100, L3000.0375, L300.3900, L504.2610 ####[facility] [address] [place], [place], [phone] GAP 11 Normal 5-15 [facility] Comment on above: Performed By: #### L 100.0100, L3890.6202, L503.5510, L500.4050, L501.6710, L501.9985, L3300.0700, L500.4100, L3000.0375, L300.3900, L504.2610 ####[facility] [address] [place], [place], [phone] GFR/1.73 sq M.predicted among non-blacks MDRD (S/P/Bld) [Vol rate/Area] 106 mL/min/{1.73_m2} Normal >60 [facility] Comment on above: Result Comment: mL/m in/1.73m2 CKD-EPI Creatinine Equation (2020) Performed By: #### L 100.0100, L3890.6202, L503.5510, L500.4050, L501.6710, L501.9985, L3300.0700, L500.4100, L3000.0375, L300.3900, L504.2610 ####[facility] [address] [place], [address] Globulin (S) [Mass/Vol] 3.2 g/dL Normal 2.2-4.2 [facility] Comment on above: Performed By: #### L 100.0100, L3890.6202, L503.5510, L500.4050, L501.6710, L501.9985, L3300.0700, L500.4100, L3000.0375, L300.3900, L504.2610 ####[facility] [address] [place], [address] Glucose [Mass/Vol] 113 mg/dL High 70-99 [facility] Comment on above: Performed By: #### L 100.0100, L3890.6202, L503.5510, L500.4050, L501.6710, L501.9985, L3300.0700, L500.4100, L3000.0375, L300.3900, L504.2610 ####[facility] [address] [place], [address] Potassium [Moles/Vol] 3.6 mmol/L Normal 3.3-5.1 [facility] Comment on above: Performed By: #### L 100.0100, L3890.6202, L503.5510, L500.4050, L501.6710, L501.9985, L3300.0700, L500.4100, L3000.0375, L300.3900, L504.2610 ####[facility] [address] [place], [address] Sodium [Moles/Vol] 140 mmol/L Normal 133-145 [facility] Comment on above: Performed By: #### L 100.0100, L3890.6202, L503.5510, L500.4050, L501.6710, L501.9985, L3300.0700, L500.4100, L3000.0375, L300.3900, L504.2610 ####[facility] [address] [place], [address] T PROT 6.8 g/dL Normal 5.9-8.4 [facility] Comment on above: Performed By: #### L 100.0100, L3890.6202, L503.5510, L500.4050, L501.6710, L501.9985, L3300.0700, L500.4100, L3000.0375, L300.3900, L504.2610 ####[facility] [address] [place], [address] Urea nitrogen [Mass/Vol] 11 mg/dL Normal 4-19 [facility] Comment on above: Performed By: #### L 100.0100, L3890.6202, L503.5510, L500.4050, L501.6710, L501.9985, L3300.0700, L500.4100, L3000.0375, L300.3900, L504.2610 ####[facility] [address] [place], [place], [address] Gastroenterology Visit Repor ton 10-24-2024 Gastroenterology Visit Report [facility] [address] [facility] [place] [address] OFFICE VISIT Date of Service: 10/24/24 MR#: [id number] Acct: [id number] Name: ALEX ROJO Rep #: [id number] : 1975 Provider: Dr. 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 Previously established with medical laboratory manager Dr. Diana Abarca for alcoholic hepatitis without ascites, with coagulopathy and jaundice. He is pursuing transplant options through [facility] as they do not require COVID vaccination. Biochemical workup diagnosed DMII with A1c 7.2; elevated ammonia 117; multiple autoimmune tests abnormal and was referred to rheumatology. RUQ US and elastography 10.08.21 liver measures 12.8cm with mild perihepatic fluid and fatty infiltration of liver. Stiffness measures 39.8 kPa F4. Liver biopsy 3.. consistent with cirrhosis with distortion of normal lobular architecture into multiple nodules; reactive hepatocyte changes; chronic inflammatory cell infiltrates; focal interface inflammation noted; mild increase of iron (1+); unremarkable reticular stain; no abnormal protein accumulation. EGD 5. (more content not included)... Normal [facility] Hemoglobin A1con 10-24-2024 HbA1c (Bld) [Mass fraction] 4.9 % Low <=5.6 [facility] Comment on above: Performed By: #### L 100.0100, L3890.6202, L503.5510, L500.4050, L501.6710, L501.9985, L3300.0700, L500.4100, L3000.0375, L300.3900, L504.2610 ####[facility] [address] [place], [address] Hepatitis B Surface Antibody on 10-24-2024 HEP B Surf Ab Non-Reactive Normal [facility] Comment on above: Result Comment: <8.5 mIU/mL: Non-Reactive 8.5<= x <11.5 mIU/mL: Indeterminate >=11.5 mIU/mL: Reactive Non Reactive: Inconsistent with immunity less than <10 mIU/mL Reactive: Consistent with immunity greater than or equal to 10 mIU/mL Performed By: #### L 100.0100, L3890.6202, L503.5510, L500.4050, L501.6710, L501.9985, L3300.0700, L500.4100, L3000.0375, L300.3900, L504.2610 ####[facility] [address] [place], [address] LDHon 10-24-2024 LDH 330 U/L High 87-241 [facility] Comment on above: Order Comment: 1 Performed By: #### L 100.0100, L3890.6202, L503.5510, L500.4050, L501.6710, L501.9985, L3300.0700, L500.4100, L3000.0375, L300.3900, L504.2610 ####[facility] [address] [place], [place], [phone] Lipid Profileon 10-24-2024 CHOL:HDL 2.20 Normal [facility] Comment on above: Performed By: #### L 100.0100, L3890.6202, L503.5510, L500.4050, L501.6710, L501.9985, L3300.0700, L500.4100, L3000.0375, L300.3900, L504.2610 ####[facility] [address] [facility] [address] [place], [place], [address] Cholesterol [Mass/Vol] 127 mg/dL Normal <=200 [facility] Comment on above: Result Comment: Chol esterol level, Desirable <200 mg/dL Borderline high cholesterol 200-239 mg/dL High cholesterol >=240 mg/dL Recommendations of the NCEP Adult Treatment Panel for the following risk-cutoff thresholds for the [place] population. Performed By: #### L 100.0100, L3890.6202, L503.5510, L500.4050, L501.6710, L501.9985, L3300.0700, L500.4100, L3000.0375, L300.3900, L504.2610 ####[facility] [address] [place], [place], [address] Cholesterol in HDL [Mass/Vol] 58 mg/dL Normal [facility] Comment on above: Result Comment: Tonya onal Cholesterol Education Program (NCEP) guidelines: <40 mg/dL: Low HDL-cholesterol (major risk factor for CHD) >= 60 mg/dL: High HDL-cholesterol (negative risk factor for CHD) HDL-cholesterol is affected by a number of factors, e.g. smoking, exercise, hormones, sex and age. Performed By: #### L 100.0100, L3890.6202, L503.5510, L500.4050, L501.6710, L501.9985, L3300.0700, L500.4100, L3000.0375, L300.3900, L504.2610 ####[facility] [address] [place], [place], [phone]) Cholesterol in LDL [Mass/Vol] 56 mg/dL Normal [facility] Comment on above: Result Comment: Bord dzkcqo=067-540 mg/dL Higher Lwsj=102 mg/dL or greater Performed By: #### L 100.0100, L3890.6202, L503.5510, L500.4050, L501.6710, L501.9985, L3300.0700, L500.4100, L3000.0375, L300.3900, L504.2610 ####[facility] [address] [place], [place], [phone]) Cholesterol in VLDL [Mass/Vol] 14 mg/dL Normal 5-40 [facility] Comment on above: Performed By: #### L 100.0100, L3890.6202, L503.5510, L500.4050, L501.6710, L501.9985, L3300.0700, L500.4100, L3000.0375, L300.3900, L504.2610 ####[facility] [address] [place], [place], [phone]) Triglyceride [Mass/Vol] 69 mg/dL Normal [facility] Comment on above: Result Comment: The drugs N-Acetylcysteine and Metamizole may falsely depress this assay. Normal range: <150 mg/dL Borderline High: 150-199 mg/dL High: 200-499 mg/dL Very High: >500 mg/dL Performed By: #### L 100.0100, L3890.6202, L503.5510, L500.4050, L501.6710, L501.9985, L3300.0700, L500.4100, L3000.0375, L300.3900, L504.2610 ####[facility] [address] [place], [address] Prothrombin Time w/INRon INR Coag (PPP) [Relative time] 1.4 {INR} Normal [facility] Comment on above: Performed By: #### L 100.0100, L3890.6202, L503.5510, L500.4050, L501.6710, L501.9985, L3300.0700, L500.4100, L3000.0375, L300.3900, L504.2610 ####[facility] [address] [place], [address] PT Coag (PPP) [Time] 17.9 s High 11.7-14.9 [facility] Comment on above: Performed By: #### L 100.0100, L3890.6202, L503.5510, L500.4050, L501.6710, L501.9985, L3300.0700, L500.4100, L3000.0375, L300.3900, L504.2610 ####[facility] [address] [place], [place], [address] CT HEAD OR BRAIN W/O CONTRAS Ton [...] 07/14/2024 3:29:19 AM Ordering Provider: WAQAS GARSIA [facility] CT SPINE CERVICAL W/O CONTRA STon [...] 07/14/2024 3:34:31 AM Ordering Provider: WAQAS GARSIA [facility] .GFRon 07-13-2024 GFR 76 ml/min/1.73sqm [facility] Comment on above: Result Comment: GFR [...] CMP, DIFF, APTT, MDW, DIMER ####[address] [place], [place] [address] GFR Non- 63 ml/min/1.73sqm Normal [facility] Comment on above: Result Comment: GFR Population [...] CMP, DIFF, APTT, MDW, DIMER ####[address] [place], [place] [address] .MDWon 07-13-2024 Monocyte Distribution Width Not tested Normal 0.00-20.00 [facility] Comment on above: Result Comment: MDW testing unable to be performed on [id number] instrumentation. Performed By: #### C BC, GFR, PRO, PBNP, MORPH, CMP, DIFF, APTT, MDW, DIMER ####[address] [place], [place] [address] .Manual Diffon 07-13-2024 Basophil %, Manual 0.0 % Normal 0.0-2.5 [facility] Comment on above: Performed By: #### C BC, GFR, PRO, PBNP, MORPH, CMP, DIFF, APTT, MDW, DIMER ####[facility] [place] [address] Basophil, Abs Manual 0.0 10 3/mcL Normal 0.0-0.2 [facility] Comment on above: Performed By: #### C BC, GFR, PRO, PBNP, MORPH, CMP, DIFF, APTT, MDW, DIMER ####[place] [address] [place], [place] [address] Eosinophil %, Manual 3.0 % Normal 0.0-7.0 [facility] Comment on above: Performed By: #### C BC, GFR, PRO, PBNP, MORPH, CMP, DIFF, APTT, MDW, DIMER ####[place] [address] [place], [place] [address] Eosinophil, Abs Manual 0.1 10 3/mcL Normal 0.0-0.7 [facility] Comment on above: Performed By: #### C BC, GFR, PRO, PBNP, MORPH, CMP, DIFF, APTT, MDW, DIMER ####[address] [address] Lymphocyte %, Manual 23.0 % Normal 20.0-40.0 [facility] Comment on above: Performed By: #### C BC, GFR, PRO, PBNP, MORPH, CMP, DIFF, APTT, MDW, DIMER ####[address] [place], [place] [address] Lymphocyte, Abs Manual 1.0 10 3/mcL Normal 0.9-4.3 [facility] Comment on above: Performed By: #### C BC, GFR, PRO, PBNP, MORPH, CMP, DIFF, APTT, MDW, DIMER ####[address] [address] Monocyte %, Manual 11.0 % Normal 2.0-13.0 [facility] Comment on above: Performed By: #### C BC, GFR, PRO, PBNP, MORPH, CMP, DIFF, APTT, MDW, DIMER ####[address] [address] Monocyte, Abs Manual 0.5 10 3/mcL Normal 0.1-1.4 [facility] Comment on above: Performed By: #### C BC, GFR, PRO, PBNP, MORPH, CMP, DIFF, APTT, MDW, DIMER ####[address] [place] [phone] Neutrophil %, Manual 63.0 % Normal 50.0-75.0 [facility] Comment on above: Performed By: #### C BC, GFR, PRO, PBNP, MORPH, CMP, DIFF, APTT, MDW, DIMER ####[address] [address] [place] [address] Neutrophil, Abs Manual 2.7 10 3/mcL Normal 2.3-8.1 [facility] Comment on above: Performed By: #### C BC, GFR, PRO, PBNP, MORPH, CMP, DIFF, APTT, MDW, DIMER ####[place] [address] [place] [address] Nucleated RBC 0.0 /100 WBC Normal [facility] Comment on above: Performed By: #### C BC, GFR, PRO, PBNP, MORPH, CMP, DIFF, APTT, MDW, DIMER ####[place] [address] [place] [address] .Morphon 07-13-2024 Platelet Estimate Decreased Normal [facility] Comment on above: Performed By: #### C BC, GFR, PRO, PBNP, MORPH, CMP, DIFF, APTT, MDW, DIMER ####[facility] [place] [address] APTTon 07-13-2024 aPTT Coag (Bld) [Time] 39.7 s High 25.0-35.0 [facility] Comment on above: Result Comment: For Heparin anticoagulation therapy, the recommended therapeutic range is: 45.4-75.9 seconds. Patients on heparin therapy may have an extreme result. Performed By: #### C BC, GFR, PRO, PBNP, MORPH, CMP, DIFF, APTT, MDW, DIMER ####[place] [address] [place], [place] [address] CBCon 07-13-2024 Erythrocyte distribution width (RBC) [Ratio] 12.9 % Normal 11.5-15.5 [facility] Comment on above: Performed By: #### C BC, GFR, PRO, PBNP, MORPH, CMP, DIFF, APTT, MDW, DIMER ####[address] [place], [place] [address] Hematocrit (Bld) [Volume fraction] 31.9 % Low 40.0-52.0 [facility] Comment on above: Performed By: #### C BC, GFR, PRO, PBNP, MORPH, CMP, DIFF, APTT, MDW, DIMER ####[place] [address] [place] [address] Hgb 11.2 G/dL Low 13.0-17.5 [facility] Comment on above: Performed By: #### C BC, GFR, PRO, PBNP, MORPH, CMP, DIFF, APTT, MDW, DIMER ####[place] [address] [place] [phone] MCH (RBC) [Entitic mass] 38.5 pg High 27.0-33.0 [facility] Comment on above: Performed By: #### C BC, GFR, PRO, PBNP, MORPH, CMP, DIFF, APTT, MDW, DIMER ####[place] [place] [place], [place] [address] MCHC 35.4 G/dL Normal 32.0-36.0 [facility] Comment on above: Performed By: #### C BC, GFR, PRO, PBNP, MORPH, CMP, DIFF, APTT, MDW, DIMER ####[place] [address] [place] [phone] MCV (RBC) [Entitic vol] 109.0 fL High 81.0-100.0 [facility] Comment on above: Performed By: #### C BC, GFR, PRO, PBNP, MORPH, CMP, DIFF, APTT, MDW, DIMER ####[place] [address] [place] [phone] Platelet 68 10 3/mcL Low 150-450 [facility] Comment on above: Performed By: #### C BC, GFR, PRO, PBNP, MORPH, CMP, DIFF, APTT, MDW, DIMER ####[address] [place], [place] [address] Platelet mean volume (Bld) [Entitic vol] 7.2 fL Normal 6.4-10.5 [facility] Comment on above: Performed By: #### C BC, GFR, PRO, PBNP, MORPH, CMP, DIFF, APTT, MDW, DIMER ####[address] [place], [place] [address] RBC 2.93 10 6/mcL Low 4.50-6.00 [facility] Comment on above: Performed By: #### C BC, GFR, PRO, PBNP, MORPH, CMP, DIFF, APTT, MDW, DIMER ####[address] [place], [place] [address] WBC 4.2 10 3/mcL Low 4.5-10.8 [facility] Comment on above: Performed By: #### C BC, GFR, PRO, PBNP, MORPH, CMP, DIFF, APTT, MDW, DIMER ####[address] [place], [place] [address] CMPon 07-13-2024 Albumin Level 2.5 G/dL Low 3.5-5.0 [facility] Comment on above: Performed By: #### C BC, GFR, PRO, PBNP, MORPH, CMP, DIFF, APTT, MDW, DIMER ####[address] [place], [place] [address] Albumin/Globulin [Mass ratio] 0.7 {ratio} Low 1.1-2.5 [facility] Comment on above: Performed By: #### C BC, GFR, PRO, PBNP, MORPH, CMP, DIFF, APTT, MDW, DIMER ####[address] [place], [place] [address] ALP [Catalytic activity/Vol] 271 U/L High 40-135 [facility] Comment on above: Performed By: #### C BC, GFR, PRO, PBNP, MORPH, CMP, DIFF, APTT, MDW, DIMER ####[facility] [place], [place] [address] ALT [Catalytic activity/Vol] 32 U/L Normal 16-63 [facility] Comment on above: Performed By: #### C BC, GFR, PRO, PBNP, MORPH, CMP, DIFF, APTT, MDW, DIMER ####[address] [place], [place] [address] AST [Catalytic activity/Vol] 66 U/L High 10-40 [facility] Comment on above: Performed By: #### C BC, GFR, PRO, PBNP, MORPH, CMP, DIFF, APTT, MDW, DIMER ####[address] [place], [place] [address] Bili Total 1.6 mg/dL High 0.2-1.0 [facility] Comment on above: Result Comment: Use of this assay is not recommended for patients undergoing treatment with eltrombopag due to the potential for falsely elevated results. Performed By: #### C BC, GFR, PRO, PBNP, MORPH, CMP, DIFF, APTT, MDW, DIMER ####[address] [place] [place], [place] [address] BUN/Creatinine Ratio 11 ratio Normal 7-27 [facility] Comment on above: Performed By: #### C BC, GFR, PRO, PBNP, MORPH, CMP, DIFF, APTT, MDW, DIMER ####[address] [place], [place] [address] Calcium [Mass/Vol] 8.7 mg/dL Normal 8.4-10.2 [facility] Comment on above: Performed By: #### C BC, GFR, PRO, PBNP, MORPH, CMP, DIFF, APTT, MDW, DIMER ####[address] [place], [place] [address] Chloride [Moles/Vol] 106 mmol/L Normal 98-107 [facility] Comment on above: Performed By: #### C BC, GFR, PRO, PBNP, MORPH, CMP, DIFF, APTT, MDW, DIMER ####[address] [place], [place] [address] CO2 [Moles/Vol] 31 mmol/L High 22-29 [facility] Comment on above: Performed By: #### C BC, GFR, PRO, PBNP, MORPH, CMP, DIFF, APTT, MDW, DIMER ####[address] [place], [place] [address] Creatinine [Mass/Vol] 1.22 mg/dL Normal 0.70-1.30 [facility] Comment on above: Result Comment: Test ing performed on Siemens Dimension EXL analyzer using a modified kinetic Nathan technique. Performed By: #### C BC, GFR, PRO, PBNP, MORPH, CMP, DIFF, APTT, MDW, DIMER ####[address] [place], [place] [address] Electrolyte Balance 5.0 mEq/L Normal 4.0-15.0 [facility] Comment on above: Performed By: #### C BC, GFR, PRO, PBNP, MORPH, CMP, DIFF, APTT, MDW, DIMER ####[address] [address] Globulin 3.5 G/dL Normal [facility] Comment on above: Performed By: #### C BC, GFR, PRO, PBNP, MORPH, CMP, DIFF, APTT, MDW, DIMER ####[address] [address] Glucose [Mass/Vol] 171 mg/dL High 70-105 [facility] Comment on above: Performed By: #### C BC, GFR, PRO, PBNP, MORPH, CMP, DIFF, APTT, MDW, DIMER ####[address] [place], [place] [address] Potassium [Moles/Vol] 4.0 mmol/L Normal 3.5-5.1 [facility] Comment on above: Performed By: #### C BC, GFR, PRO, PBNP, MORPH, CMP, DIFF, APTT, MDW, DIMER ####[address] [place], [place] [address] Sodium [Moles/Vol] 142 mmol/L Normal 136-145 [facility] Comment on above: Performed By: #### C BC, GFR, PRO, PBNP, MORPH, CMP, DIFF, APTT, MDW, DIMER ####[address] [place], [place] [address] Total Protein 6.0 G/dL Low 6.4-8.2 [facility] Comment on above: Performed By: #### C BC, GFR, PRO, PBNP, MORPH, CMP, DIFF, APTT, MDW, DIMER ####[address] [address] [place] [phone] Urea nitrogen [Mass/Vol] 14 mg/dL Normal 7-18 [facility] Comment on above: Performed By: #### C BC, GFR, PRO, PBNP, MORPH, CMP, DIFF, APTT, MDW, DIMER ####[address] [place], [place] [address] DIMERon 07-13-2024 D-Dimer <200 Normal 0-230 [facility] Comment on above: Result Comment: DDN: Results [...] MORPH, CMP, DIFF, APTT, MDW, DIMER ####[address] [place], [place] [address] LABORATORYOrdered By: SYSTEM SYSTEM on 07-13-2024 Albumin [...] [facility] Comment on above: Interpretive Data: Lyn damon [employer] (CHEST, 1992, 102:312S-25S) [...] MDW testing unable to be performed on [id number] instrumentation. PBNPon 07-13-2024 Natriuretic peptide B (Bld) [Mass/Vol] 75 pg/mL Normal 0-125 [facility] Comment on above: Result Comment: NT-p roBNP results of less than 300 pg/mL effectively rules out acute congestive heart failure with 99% negative predictive value. Performed By: #### C BC, GFR, PRO, PBNP, MORPH, CMP, DIFF, APTT, MDW, DIMER ####[facility] [place], [place] [address] PROon 07-13-2024 PT Coag (PPP) [Time] 16.4 s High 9.0-14.4 [facility] Comment on above: Performed By: #### C BC, GFR, PRO, PBNP, MORPH, CMP, DIFF, APTT, MDW, DIMER ####[facility] [place], [place] [address] PT International Ratio 1.4 Normal [facility] Comment on above: Result Comment: [employer] (CHEST, 1992, 102:312S-25S) recommended therapeutic range for oral anticoagulant therapy is: LOW RISK: Prophylaxis of venous thrombosis INR: 2.0-3.0 Treatment of pulmonary embolism 2.0-3.0 Prevention of systemic embolism 2.0-3.0 HIGH RISK: Mechanical prosthetic valves 2.5-3.5 Performed By: #### C BC, GFR, PRO, PBNP, MORPH, CMP, DIFF, APTT, MDW, DIMER ####[facility] [place], [place] [address] AMMONIAon 05-20-2024 Ammonia (P) [Moles/Vol] 35.0 umol/L High 11.0 - 32.0 [facility] Comment on above: Performed By: #### 2 [address] #### [facility],[address] [place] [address] POTASSIUMon 05-03-2024 Potassium [Moles/Vol] 3.7 mmol/L Normal 3.5 - 5.1 [facility] Comment on above: Performed By: #### 2 6[address] #### [facility],[address] [place] [address] AMMONIAon 04-17-2024 Ammonia (P) [Moles/Vol] 58.0 umol/L High 11.0 - 32.0 [facility] Comment on above: Performed By: #### 2 85313 #### [facility],[address] [place] [address] CBC + DIFFon 04-17-2024 Baso # 0.00 x10EE3/UL Normal 0.00 - 0.10 [facility] Comment on above: Performed By: #### 2 68757 #### [facility],[address] [place] [address] Basophils/100 WBC (Bld) 0.1 % Normal 0.0 - 2.0 [facility] Comment on above: Performed By: #### 2 49197 #### [facility],[address] [place] [address] CBC + DIFF Normal [facility] Comment on above: Result Comment: CBC- COMPLETE BLOOD COUNT Performed By: #### 2 31395 #### [facility],[address] [place] [address] EO # 0.14 x10EE3/UL Normal 0.00 - 0.50 [facility] Comment on above: Performed By: #### 2 80268 #### [facility],[address] [place] [address] Eosinophils/100 WBC (Bld) 3.2 % Normal 0.0 - 7.0 [facility] Comment on above: Performed By: #### 2 27084 #### [facility],[address] [place], [place] [address] Erythrocyte distribution width (RBC) [Ratio] 14.7 % Normal 12.0 - 15.6 [facility] Comment on above: Performed By: #### 2 70036 #### [facility],[address] [place] [address] Hematocrit (Bld) [Volume fraction] 35.5 % Low 40.0 - 52.0 [facility] Comment on above: Performed By: #### 2 93975 #### [facility],[address] [place] [address] Hemoglobin (Bld) [Mass/Vol] 12.0 g/dL Low 13.0 - 17.5 [facility] Comment on above: Performed By: #### 2 25739 #### [facility],[address] [place] [address] Lymph # 0.92 x10EE3/UL Normal 0.80 - 2.80 [facility] Comment on above: Performed By: #### 2 76896 #### [facility],[address] [place], [place] [address] Lymphocytes/100 WBC (Bld) 21.0 % Normal 20.0 - 45.0 [facility] Comment on above: Performed By: #### 2 665[address] #### [facility],[address] [place], [place] [address] Macrocytes Ql (Bld) 1+ Normal [facility] Comment on above: Performed By: #### 2 35688 #### [facility],[address] [place] [address] MANUAL DIFF N/A Normal [facility] Comment on above: Performed By: #### 2 54659 #### [facility],[address] [place] [address] MCH (RBC) [Entitic mass] 36 pg High 27 - 33 [facility] Comment on above: Performed By: #### 2 09290 #### [facility],[address] [place] [address] MCHC 34 X10 3 Normal 32 - 36 [facility] Comment on above: Performed By: #### 2 07337 #### [facility],[address] [place] [address] MCV (RBC) [Entitic vol] 107 fL High 81 - 98 [facility] Comment on above: Performed By: #### 2 97363 #### [facility],[address] [place] [address] Bladen # 0.27 x10EE3/UL Normal 0.20 - 1.00 [facility] Comment on above: Performed By: #### 2 90949 #### [facility],[address] [place] [address] MONOS % 6.1 % Normal 0.0 - 10.0 [facility] Comment on above: Performed By: #### 2 53842 #### [facility],[address] [place] [address] Morphology Portillo (Bld) [Interp] SEE BELOW Normal [facility] Comment on above: Performed By: #### 2 33357 #### [facility],[address] [place] [address] Neut # 3.06 x10EE3/UL Normal 1.50 - 7.10 [facility] Comment on above: Performed By: #### 2 91516 #### [facility],[address] [place] [address] Neutrophils/100 WBC (Bld) 69.6 % Normal 46.0 - 76.0 [facility] Comment on above: Performed By: #### 2 87976 #### [facility],[address] [place] [address] PLATELET 65 x10EE3/UL Low 150 - 450 [facility] Comment on above: Performed By: #### 2 86064 #### [facility],[address] [place] [address] Platelet mean volume (Bld) [Entitic vol] 7.9 fL Normal 6.4 - 10.5 [facility] Comment on above: Result Comment: AUTO MATED DIFFERENTIAL Performed By: #### 2 97859 #### [facility],[address] [place] [address] PLT EST DECREASED Normal [facility] Comment on above: Performed By: #### 2 13016 #### [facility],[address] [place] [address] RBC 3.31 x 10EE6/UL Low 4.50 - 6.00 [facility] Comment on above: Performed By: #### 2 34815 #### [facility],[address] [place] [address] WBC 4.4 x 10EE3/UL Low 4.5 - 10.8 [facility] Comment on above: Performed By: #### 2 07057 #### [facility],[address] [place] [address] CMP with eGFRon 04-17-2024 AGE 49 years Normal [facility] Comment on above: Performed By: #### 2 33264 #### [facility],[address] [place] [address] Albumin [Mass/Vol] 2.7 g/dL Low 3.4 - 5.0 [facility] Comment on above: Performed By: #### 2 93785 #### [facility],[address] [place] [address] Albumin/Globulin [Mass ratio] 0.7 {ratio} Low 0.9 - 1.6 [facility] Comment on above: Performed By: #### 2 59326 #### [facility],[address] [place] [address] ALK PHOS 235 U/L High 46 - 116 [facility] Comment on above: Performed By: #### 2 60213 #### [facility],[address] [place] [address] ALT [Catalytic activity/Vol] 30 U/L Normal 16 - 63 [facility] Comment on above: Performed By: #### 2 58470 #### [facility],[address] [place] [address] Anion gap [Moles/Vol] 12 mmol/L Normal 10 - 20 [facility] Comment on above: Performed By: #### 2 78917 #### [facility],[address] [place] [address] AST [Catalytic activity/Vol] 73 U/L High 15 - 37 [facility] Comment on above: Performed By: #### 2 62784 #### [facility],[address] [place] [address] B/C RATIO 7 ratio Normal 0 - 30 [facility] Comment on above: Performed By: #### 2 01498 #### [facility],[address] [place] [address] Bilirubin [Mass/Vol] 2.3 mg/dL High 0.2 - 1.0 [facility] Comment on above: Performed By: #### 2 46497 #### [facility],[address] [place] [address] Calcium [Mass/Vol] 7.8 mg/dL Low 8.5 - 10.1 [facility] Comment on above: Performed By: #### 2 14559 #### [facility],[address] [place] [address] Chloride [Moles/Vol] 100 mmol/L Normal 98 - 107 [facility] Comment on above: Performed By: #### 2 54954 #### [facility],[address] [place] [address] CMP with eGFR Normal [facility] Comment on above: Result Comment: COMP REHENSIVE METABOLIC PANEL Performed By: #### 2 93546 #### [facility],[address] [place] [address] CO2 [Moles/Vol] 28.4 mmol/L Normal 21.0 - 32.0 [facility] Comment on above: Performed By: #### 2 50635 #### [facility],[address] [place] [address] Creatinine [Mass/Vol] 1.18 mg/dL Normal 0.70 - 1.30 [facility] Comment on above: Performed By: #### 2 43848 #### [facility],[address] [place] [address] GFR/1.73 sq M.predicted among non-blacks MDRD (S/P/Bld) [Vol rate/Area] mL/min/{1.73_m2} Normal 60 - 999 [facility] Comment on above: Performed By: #### 2 08026 #### [facility],[address] [place] [address] Result Comment: ACCO RDING TO THE NATIONAL KIDNEY DISEASE EDUCATION PROGRAM(NKDE), A NORMAL eGFR IS A VALUE GREATER THAN OR EQUAL TO 60 ML/MIN/1.73 SQ METERS. CHRONIC KIDNEY DISEASE: <60mL/MIN/1.73 SQ METERS KIDNEY FAILURE: <15mL/MIN/1.73 SQ METERS THIS TEST SHOULD ONLY BE USED FOR PATIENTS 18 YEARS OF AGE AND OLDER. Globulin (S) [Mass/Vol] 4.0 g/dL High 1.5 - 3.8 [facility] Comment on above: Performed By: #### 2 01262 #### [facility],[address] [place] [address] Glucose [Mass/Vol] 181 mg/dL High 74 - 106 [facility] Comment on above: Performed By: #### 2 88023 #### [facility],[address] [place] [address] Potassium [Moles/Vol] 3.2 mmol/L Low 3.5 - 5.1 [facility] Comment on above: Performed By: #### 2 78725 #### [facility],[address] [place] [address] Protein [Mass/Vol] 6.7 g/dL Normal 6.4 - 8.2 [facility] Comment on above: Performed By: #### 2 23186 #### [facility],[address] [place] [address] Sodium [Moles/Vol] 137 mmol/L Normal 136 - 145 [facility] Comment on above: Performed By: #### 2 50081 #### [facility],[address] [place] [address] Urea nitrogen [Mass/Vol] 8 mg/dL Normal 7 - 18 [facility] Comment on above: Performed By: #### 2 08750 #### [facility],[address] [place] [address] HEMOGLOBIN A1C (POM)on 04-17 Glucose [Mass/Vol] 91.1 mg/dL High 0.0 - 0.0 [facility] Comment on above: Result Comment: BLDo HEMOGLOBIN A1C REFERENCE RANGESBLDo Suggested Diagnosis HbA1c(%) HbA1C (mmol/mol Diabetic >/=6.5 >/=48 Prediabetes 5.7 - 6.4 39 - 47 Normal <5.7 <39 Performed By: #### 2 42337 #### [facility],[address] [place] [address] HbA1c (Bld) [Mass fraction] 4.8 % Normal 0.0 - 6.5 [facility] Comment on above: Performed By: #### 2 53969 #### [facility],[address] [place] [address] LIPID PROFILEon 04-17-2024 Cholesterol [Mass/Vol] 154 mg/dL Normal 0 - 240 [facility] Comment on above: Performed By: #### 2 44170 #### [facility],[address] [place] [address] Cholesterol in HDL [Mass/Vol] 79 mg/dL High 40 - 60 [facility] Comment on above: Performed By: #### 2 97403 #### [facility],[address] [place] [address] Cholesterol in LDL [Mass/Vol] 56 mg/dL Normal 0 - 129 [facility] Comment on above: Performed By: #### 2 82372 #### [facility],[address] [place] [address] Cholesterol.total/Cho lesterol in HDL [Mass ratio] 1.9 {ratio} Normal 0.0 - 5.0 [facility] Comment on above: Performed By: #### 2 88578 #### [facility],[address] [place] [address] 113[address] Lipid 1996 panel Normal [facility] Comment on above: Result Comment: LIPI D PROFILE Performed By: #### 2 97839 #### [facility],[address] [place] [address] Triglyceride [Mass/Vol] 96 mg/dL Normal 0 - 150 [facility] Comment on above: Performed By: #### 2 17273 #### [facility],[address] [place] [address] URINE MICROALBUMIN, RANDOMon 04-17-2024 MICROALBUMIN UR 0.5 mg/dL Normal 0.1 - 25.1 [facility] Comment on above: Performed By: #### 2 16411 #### [facility],[address] [place] [address] 45990 US ABD RIGHT UPPER QUADRANTo n 04-09-2024 [...] by bowel gas and therefore not evaluated. Superior Court Judge: [facility] Transcribe Date/Time: Apr 09 2024 10:29A Dictated by : YUDY CAMACHO MD This examination was interpreted and the report reviewed and electronically signed by: YUDY CAMACHO MD on Apr 09 2024 10:30AM EST [id number] Normal [facility] US Abdomen RUQon 04-09-2024 IMPRESSION: 1. Cirrhotic liver morphology. 2. Hepatofugal directionality of flow in the visualized main portal vein most compatible with portal hypertension. 3. Pancreas obscured by bowel gas and therefore not evaluated. Superior Court Judge: [facility] Transcribe Date/Time: Apr 09 2024 10:29A Dictated by : YUDY CAMACHO MD This examination was interpreted and the report reviewed and electronically signed by: YUDY CAMACHO MD on Apr 09 2024 10:30AM EST DIVISION OF RADIOLOGY * * *Final Report* * * DATE OF EXAM: Apr 09 2024 9:15AM U 1032 - US ABD RIGHT UPPER QUADRANT [...] by bowel gas and therefore not evaluated. Superior Court Judge: [facility] Transcribe Date/Time: Apr 09 2024 10:29A Dictated by : YUDY CAMACHO MD This examination was interpreted and the report reviewed and electronically signed by: YUDY CAMACHO MD on Apr 09 2024 10:30AM EST [facility] Radiology Study observation (narrative) [facility] US Abdomen RUQOrdered By: Vani anderson Provider on 04-09-2024 [facility] AMMONIAon 03-20-2024 AMMONIA Normal [facility] Comment on above: Result Comment: SEE SEPARATE REPORT DONE AT [facility] Performed By: #### 2 19499 #### [facility],[address] [place] [address]23 AMMONIAon 02-19-2024 Ammonia (P) [Moles/Vol] 33.0 umol/L High 11.0 - 32.0 [facility] Comment on above: Performed By: #### 2 26095 #### [facility],[address] [place] [address] 79675 AFP SerPl-mCncon 01-30-2024 AFP [Mass/Vol] 5.4 ng/mL Normal <11.0 [facility] Comment on above: Order Comment: Speci men Type: BLOOD SPECIMENOrdering Facility: [facility] Address: [address] [place] [address] Result Comment: The Alpha-Fetoprotein test was performed using the Siemens Kabanchikaur XP chemiluminometric immunoassay method. Results obtained with different assay methods or kits cannot be used interchangeably. 4.99 The Alpha-Fetoprotein test was performed using the Michelle Unicel DxI immunoenzymatic assay. Results obtained with different assay methods or kits cannot be used interchangeably. Performed By: #### 1 834-1 ####[facility] [id number] [place] [address] [place] CBC panel Auto (Bld)on 01-29 Erythrocyte distribution width (RBC) [Ratio] 17.6 % High 11.5 - 15.0 % [facility] Hematocrit (Bld) [Volume fraction] 34.6 % Low 39.0 - 51.0 % [facility] Hemoglobin (Bld) [Mass/Vol] 11.7 g/dL Low 13.0 - 17.0 g/dL [facility] Interpretation and review of laboratory results Abnormal [facility] MCH (RBC) [Entitic mass] 34.5 pg High 26.0 - 34.0 pg [facility] MCHC (RBC) [Mass/Vol] 33.8 g/dL 30.5 - 36.0 g/dL [facility] MCV (RBC) [Entitic vol] 102.1 fL High 80.0 - 100.0 fL [facility] Nucleated RBC (Bld) [#/Vol] NINF [facility] Platelet mean volume (Bld) [Entitic vol] 10.5 fL 9.0 - 12.7 fL [facility] Platelets (Bld) [#/Vol] 67 10*3/uL Low [facility] Comment on above: No clot detected. RBC (Bld) [#/Vol] 3.39 10*6/uL Low 4.20 - 6.0 0 m/uL [facility] WBC (Bld) [#/Vol] 4.34 10*3/uL [facility] Erythrocyte distribution width (RBC) [Ratio] 17.6 % High 11.5-15.0 [facility] Comment on above: Order Comment: Speci men Type: BLOOD SPECIMENOrdering Facility: [facility] Address: [address] [place] [address] Performed By: #### 5 8410-2 ####[facility] [id number] [place] [address] [place] Hematocrit (Bld) [Volume fraction] 34.6 % Low 39.0-51.0 [facility] Comment on above: Order Comment: Speci men Type: BLOOD SPECIMENOrdering Facility: [facility] Address: [address] [place] [address] Performed By: #### 5 8410-2 ####[facility] [id number] [place] [address] [place] Hemoglobin (Bld) [Mass/Vol] 11.7 g/dL Low 13.0-17.0 [facility] Comment on above: Order Comment: Speci men Type: BLOOD SPECIMENOrdering Facility: [facility] Address: [address] [place] [address] Performed By: #### 5 8410-2 ####[facility] [id number] [place] [address] [place] MCH (RBC) [Entitic mass] 34.5 pg High 26.0-34.0 [facility] Comment on above: Order Comment: Speci men Type: BLOOD SPECIMENOrdering Facility: [facility] Address: [address] [place] [address] Performed By: #### 5 8410-2 ####[facility] [id number] [place] [address] [place] MCHC (RBC) [Mass/Vol] 33.8 g/dL Normal 30.5-36.0 [facility] Comment on above: Order Comment: Speci men Type: BLOOD SPECIMENOrdering Facility: [facility] Address: [address] [place] [address] Performed By: #### 5 8410-2 ####[facility] [id number] [place] [address] [place] MCV (RBC) [Entitic vol] 102.1 fL High 80.0-100.0 [facility] Comment on above: Order Comment: Speci men Type: BLOOD SPECIMENOrdering Facility: [facility] Address: [address] [place] [address] Performed By: #### 5 8410-2 ####[facility] [id number] [place] [address] [place] Nucleated RBC (Bld) [#/Vol] 10*3/uL Normal <0.01 [facility] Comment on above: Order Comment: Speci men Type: BLOOD SPECIMENOrdering Facility: [facility] Address: [address] [place] [address] Performed By: #### 5 8410-2 ####[facility] [id number] [place] [address] [place] Platelet mean volume (Bld) [Entitic vol] 10.5 fL Normal 9.0-12.7 [facility] Comment on above: Order Comment: Speci men Type: BLOOD SPECIMENOrdering Facility: [facility] Address: [address] [place] [address] Performed By: #### 5 8410-2 ####[facility] [id number] [place] [address] [place] Platelets (Bld) [#/Vol] 67 10*3/uL Low 150-400 [facility] Comment on above: Order Comment: Speci men Type: BLOOD SPECIMENOrdering Facility: [facility] Address: [address] [place] [address] Result Comment: No c lot detected. Performed By: #### 5 8410-2 ####[facility] [id number] [place] [address] [place] RBC (Bld) [#/Vol] 3.39 10*6/uL Low 4.20-6.00 [facility] Comment on above: Order Comment: Speci men Type: BLOOD SPECIMENOrdering Facility: [facility] Address: [address] [place] [address] Performed By: #### 5 8410-2 ####[facility] [id number] [place] [address] [place] WBC (Bld) [#/Vol] 4.34 10*3/uL Normal 3.70-11.00 [facility] Comment on above: Order Comment: Speci men Type: BLOOD SPECIMENOrdering Facility: [facility] Address: [address] [place] [address] Performed By: #### 5 8410-2 ####[facility] [id number] [place] [address] [place] CNOVon 01-30-2024 CNOV Office Visit (GASTA5 ) -------- ALEX ROJO ([id number]) 1975 M CHT Date Time Provider Department [...] a long discussion with patient and his shirt ironer (a caregiver at the nursing facility). Based [...] with multi (more content not included)... Normal [facility] Comprehensive metabolic 2000 panelon 01-30-2024 Albumin [Mass/Vol] 3.4 g/dL Low 3.9-4.9 [facility] Comment on above: Order Comment: Speci men Type: BLOOD SPECIMENOrdering Facility: [facility] Address: [address] [place], [place] [address] Performed By: #### 2 4323-8 ####[facility] [id number] [place] [address] [place] ALP [Catalytic activity/Vol] 251 U/L High 38-113 [facility] Comment on above: Order Comment: Speci men Type: BLOOD SPECIMENOrdering Facility: [facility] Address: [address] [place] [address] Performed By: #### 2 4323-8 ####[facility] [id number] [place] [address] [place] ALT [Catalytic activity/Vol] 28 U/L Normal 10-54 [facility] Comment on above: Order Comment: Speci men Type: BLOOD SPECIMENOrdering Facility: [facility] Address: [address] [place] [address] Performed By: #### 2 4323-8 ####[facility] [id number] [place] [address] [place] Anion gap [Moles/Vol] 11 mmol/L Normal 8-15 [facility] Comment on above: Order Comment: Speci men Type: BLOOD SPECIMENOrdering Facility: [facility] Address: [address] [place] [address] Performed By: #### 2 4323-8 ####[facility] [id number] [place] [address] [place] AST [Catalytic activity/Vol] 67 U/L High 14-40 [facility] Comment on above: Order Comment: Speci men Type: BLOOD SPECIMENOrdering Facility: [facility] Address: [address] [place] [address] Performed By: #### 2 4323-8 ####[facility] [id number] [place] [address] [place] Bilirubin [Mass/Vol] 2.3 mg/dL High 0.2-1.3 [facility] Comment on above: Order Comment: Speci men Type: BLOOD SPECIMENOrdering Facility: [facility] Address: [address] [place] [address] Performed By: #### 2 4323-8 ####[facility] [id number] [address] [address] [place] Calcium [Mass/Vol] 8.7 mg/dL Normal 8.5-10.2 [facility] Comment on above: Order Comment: Speci men Type: BLOOD SPECIMENOrdering Facility: [facility] Address: [address] [place], [place] [address] Performed By: #### 2 4323-8 ####[facility] [id number] [place] [address] [place] Chloride [Moles/Vol] 104 mmol/L Normal 98-107 [facility] Comment on above: Order Comment: Speci men Type: BLOOD SPECIMENOrdering Facility: [facility] Address: [address] [place] [address] Performed By: #### 2 4323-8 ####[facility] [id number] [place] [address] [place] CO2 [Moles/Vol] 24 mmol/L Normal 22-30 [facility] Comment on above: Order Comment: Speci men Type: BLOOD SPECIMENOrdering Facility: [facility] Address: [address] [place], [place] [address] Performed By: #### 2 4323-8 ####[facility] [id number] [place] [id number] [place] Creatinine [Mass/Vol] 0.77 mg/dL Normal 0.73-1.22 [facility] Comment on above: Order Comment: Speci men Type: BLOOD SPECIMENOrdering Facility: [facility] Address: [address] [place], [place] [address] Performed By: #### 2 4323-8 ####[facility] [id number] [place] [id number] [place] Creatinine and Glomerular filtration rate.predicted panel (S/P/Bld) 110 mL/min/1.73m??? Normal >=60 [facility] Comment on above: Order Comment: Katherine kim Type: BLOOD SPECIMENOrdering Facility: [facility] Address: [address] [place] [address] Result Comment: Rabia mated Glomerular Filtration Rate [...] actual GFR. Performed By: #### 2 4323-8 ####[facility] [id number] [place] [address] [place] Glucose [Mass/Vol] 121 mg/dL High 74-99 [facility] Comment on above: Order Comment: Katherine kim Type: BLOOD SPECIMENOrdering Facility: [facility] Address: [address] [place] [address] Result Comment: The [place] [employer] (ADA) provides guidance for cutoff [...] Standards of Medical Care in Diabetes 2016, [place] [employer]. Diabetes Care. 2016.39(Suppl 1). Performed By: #### 2 4323-8 ####[facility] [id number] [place] [address] [place] Potassium [Moles/Vol] 3.5 mmol/L Low 3.7-5.1 [facility] Comment on above: Order Comment: Speci men Type: BLOOD SPECIMENOrdering Facility: [facility] Address: [address] [place] [address] Performed By: #### 2 4323-8 ####[facility] [id number] [place] [address] [place] Protein [Mass/Vol] 6.9 g/dL Normal 6.3-8.0 [facility] Comment on above: Order Comment: Speci men Type: BLOOD SPECIMENOrdering Facility: [facility] Address: [address] [place] [address] Performed By: #### 2 4323-8 ####[facility] [id number] [place] [address] [place] Sodium [Moles/Vol] 139 mmol/L Normal 136-144 [facility] Comment on above: Order Comment: Speci men Type: BLOOD SPECIMENOrdering Facility: [facility] Address: [address] [place] [address] Performed By: #### 2 4323-8 ####[facility] [id number] [place] [address] [place] Urea nitrogen [Mass/Vol] 9 mg/dL Normal 9-24 [facility] Comment on above: Order Comment: Speci men Type: BLOOD SPECIMENOrdering Facility: [facility] Address: [address] [place] [address] Performed By: #### 2 4323-8 ####[facility] [id number] [place] [id number] [place] PT panel Coag (PPP)on 2023 INR Coag (PPP) [Relative time] 1.3 {INR} 0.9 - 1.3 [facility] Comment on above: Vitamin K Antagonist (VKA) Therapeutic Range: INR 2 to 3 (Target INR of 2.5) Note: For patients treated with VKA drugs, such as warfarin, the [employer] [employer] 2012 Guideline recommends [...] Mae. Chest 2012, 141:7S-47S Jaylene GRAVES et kelly. [facility] 2017, 70: 252-289 Interpretation and review of laboratory results Abnormal [facility] PT Coag (PPP) [Time] 13.9 s High [facility] INR Coag (PPP) [Relative time] 1.3 {INR} Normal 0.9-1.3 [facility] Comment on above: Order Comment: Speci men Type: BLOOD SPECIMENOrdering Facility: [facility] Address: [address] [place] [address] Result Comment: Karuna min K Antagonist (VKA) Therapeutic Range: INR 2 to 3 (Target INR of 2.5) Note: For patients treated with VKA drugs, such as warfarin, the [employer] 2012 Guideline recommends [...] Chest 2012, 141:7S-47S Jaylene GRAVES et al. [facility] 2017, 70: 252-289 Performed By: #### 3 4528-0 ####[facility] [id number] [place] [id number] [place] PT Coag (PPP) [Time] 13.9 s High 9.7-13.0 [facility] Comment on above: Order Comment: Speci men Type: BLOOD SPECIMENOrdering Facility: [facility] Address: [address] [place] [address] Performed By: #### 3 4528-0 ####[facility] [id number] [place] [id number] [place] AMMONIAon 01-16-2024 Ammonia (P) [Moles/Vol] 32.0 umol/L Normal 11.0 - 32.0 [facility] Comment on above: Performed By: #### 2 45697 #### [facility],[address] [place], [place] [address] HEMOGLOBIN A1C (POM)on 01-15 Glucose [Mass/Vol] 96.8 mg/dL High 0.0 - 0.0 [facility] Comment on above: Result Comment: [facility] HEMOGLOBIN A1C REFERENCE RANGESBLDo Suggested Diagnosis HbA1c(%) HbA1C (mmol/mol Diabetic >/=6.5 >/=48 Prediabetes 5.7 - 6.4 39 - 47 Normal <5.7 <39 Performed By: #### 2 92679 #### [facility],[address] [place], [place] [address] HbA1c (Bld) [Mass fraction] 5.0 % Normal 0.0 - 6.5 [facility] Comment on above: Performed By: #### 2 04981 #### [facility],[address] [place] [address] CNOVon 01-01-2024 CNOV Office Visit (NEMOWS ) -------- ALEX ROJO ([id number]) 1975 M T Date Time Provider Department 01/01/24 11:00 AM [...] New Patient: Pt presented with transportation from [facility], reported ER visit [facility] for Hepatic concerns. and my final recommendations [...] was seen in ER in 06/2022 in [place], [place] and was told to see a [...] Patient was brought to the ED from [facility], they felt his condition was medical related [...] to sleep, was unable to engage with service writer. Nursing reports he has been wandering but redirectable. He does deny SI and HI with service writer. Unclear if he is having hallucinations. He [...] and Info: - Contacted patient's mother Janine [phone] for collateral information. She reports that patient moved in with her and his father a couple of weeks ago. Patient was living with his and kid in [place]. Moved to [place] because he is on a liver transplant list and will be getting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 MON #### [address] [address] Bariatric Coordinator: Kemal Waterman MD Hemoglobin (Bld) [Mass/Vol] 10.6 g/dL Low 12.5-16.5 [facility] Comment on above: Performed By: #### A MON #### [address] [address] Bariatric Coordinator: Kemal Waterman MD MCH (RBC) [Entitic mass] 32.1 pg Normal 26.0-35.0 [facility] Comment on above: Performed By: #### A MON #### [address] [address] Bariatric Coordinator: Kemal Waterman MD MCHC (RBC) [Mass/Vol] 32.8 g/dL Normal 32.0-34.5 [facility] Comment on above: Performed By: #### A MON #### [address] [address] Bariatric Coordinator: Kemal Waterman MD MCV (RBC) [Entitic vol] 97.9 fL Normal 80.0-99.9 [facility] Comment on above: Performed By: #### A MON #### [address] [address] Bariatric Coordinator: Kemal Waterman MD Platelet mean volume (Bld) [Entitic vol] 10.4 fL Normal 7.0-12.0 [facility] Comment on above: Performed By: #### A MON #### [address] [address] Bariatric Coordinator: Kemal Waterman MD Platelets (Bld) [#/Vol] 60 10*3/uL Low 130-450 [facility] Comment on above: Performed By: #### A MON #### [address] [address] Bariatric Coordinator: Kemal Waterman MD RBC (Bld) [#/Vol] 3.30 10*6/uL Low 3.80-5.80 [facility] Comment on above: Performed By: #### A MON #### [address] [place] [address] Bariatric Coordinator: Kemal Waterman MD WBC (Bld) [#/Vol] 4.4 10*3/uL Low 4.5-11.5 [facility] Comment on above: Performed By: #### A MON #### [address] [place] [address] Bariatric Coordinator: Kemal Waterman MD Comp Metabolic Pr/rfx MGon 0 - Albumin [Mass/Vol] 3.0 g/dL Low 3.5-5.2 [facility] Comment on above: Performed By: #### A MON #### [address] [place] [address] Bariatric Coordinator: Kemal Waterman MD Alkaline Phos 148 U/L High 40-129 [facility] Comment on above: Performed By: #### A MON #### [address] [place] [address] Bariatric Coordinator: Kemal Waterman MD ALT [Catalytic activity/Vol] 27 U/L Normal 0-40 [facility] Comment on above: Performed By: #### A MON #### [address] [place] [address] Bariatric Coordinator: Kemal Waterman MD Anion gap [Moles/Vol] 11 mmol/L Normal 7-16 [facility] Comment on above: Performed By: #### A MON #### [address] [place] [address] Bariatric Coordinator: Kemal Waterman MD AST [Catalytic activity/Vol] 64 U/L High 0-39 [facility] Comment on above: Performed By: #### A MON #### [address] [address] Bariatric Coordinator: Kemal Waterman MD Bilirubin [Mass/Vol] 2.0 mg/dL High 0.0-1.2 [facility] Comment on above: Performed By: #### A MON #### [address] [address] Bariatric Coordinator: Kemal Waterman MD Calcium [Mass/Vol] 8.1 mg/dL Low 8.6-10.2 [facility] Comment on above: Performed By: #### A MON #### [address] [address] Bariatric Coordinator: Kemal Waterman MD Chloride [Moles/Vol] 106 mmol/L Normal 98-107 [facility] Comment on above: Performed By: #### A MON #### [address] [address] Bariatric Coordinator: Kemal Waterman MD CO2 [Moles/Vol] 23 mmol/L Normal 22-29 [facility] Comment on above: Performed By: #### A MON #### [address] [address] Bariatric Coordinator: Kemal Waterman MD Creatinine [Mass/Vol] 0.8 mg/dL Normal 0.70-1.20 [facility] Comment on above: Performed By: #### A MON #### [address] [address] Bariatric Coordinator: Kemal Waterman MD GFR/1.73 sq M.predicted among non-blacks MDRD (S/P/Bld) [Vol rate/Area] mL/min/{1.73_m2} Normal >60 [facility] Comment on above: Result Comment: These results [...] secretion. Performed By: #### A MON #### [address] [place] [address] Bariatric Coordinator: Kemal Waterman MD Glucose [Mass/Vol] 78 mg/dL Normal 74-99 [facility] Comment on above: Performed By: #### A MON #### [address] [place] [address] Bariatric Coordinator: Kemal Waterman MD Potassium [Moles/Vol] 4.8 mmol/L Normal 3.5-5.0 [facility] Comment on above: Performed By: #### A MON #### [address] [place] [address] Bariatric Coordinator: Kemal Waterman MD Protein [Mass/Vol] 6.2 g/dL Low 6.4-8.3 [facility] Comment on above: Performed By: #### A MON #### [address] [place] [address] Bariatric Coordinator: Kemal Waterman MD Sodium [Moles/Vol] 140 mmol/L Normal 132-146 [facility] Comment on above: Performed By: #### A MON #### [address] [place] [address] Bariatric Coordinator: Kemal Waterman MD Urea nitrogen [Mass/Vol] 9 mg/dL Normal 6-20 [facility] Comment on above: Performed By: #### A MON #### [facility] [address] [place] [address] Bariatric Coordinator: Kemal Waterman MD Comprehensive Metabolic Pane l w/ Reflex to MGon 08-03-2023 Albumin [Mass/Vol] 3.0 g/dL Low 3.5 - 5.2 g/dL [facility] ALP [Catalytic activity/Vol] 148 U/L High 40 - 129 U/L [facility] ALT [Catalytic activity/Vol] 27 U/L 0 - 40 U/L [facility] Anion gap [Moles/Vol] 11 mmol/L 7 - 16 mmol/L [facility] AST [Catalytic activity/Vol] 64 U/L High 0 - 39 U/L [facility] Bilirubin [Mass/Vol] 2.0 mg/dL High 0.0 - 1 .2 mg/dL [facility] Calcium [Mass/Vol] 8.1 mg/dL Low 8.6 - 10. 2 mg/dL [facility] Chloride [Moles/Vol] 106 mmol/L 98 - 10 7 mmol/L [facility] CO2 [Moles/Vol] 23 mmol/L 22 - 29 mmol/L [facility] Creatinine [Mass/Vol] 0.8 mg/dL 0.70 - 1.20 mg/dL [facility] GFR/1.73 sq M.predicted MDRD (S/P/Bld) [Vol rate/Area] - PINF [facility] Comment on above: These results are [...] [Mass/Vol] 78 mg/dL 74 - 99 mg/dL [facility] Interpretation and review of laboratory results Abnormal [facility] Potassium [Moles/Vol] 4.8 mmol/L 3.5 - 5.0 mmol/L [facility] Protein [Mass/Vol] 6.2 g/dL Low 6.4 - 8.3 g/dL [facility] Sodium [Moles/Vol] 140 mmol/L 132 - 146 mmol/L [facility] Urea nitrogen [Mass/Vol] 9 mg/dL 6 - 20 mg/dL [facility] Cult, Bloodon 08-03-2023 Cult, Blood Specimen Description .BLOOD LEFT .HAND Special Requests Culture NO GROWTH 5 DAYS Report Status FINAL 08/03/2023 Normal [facility] Comment on above: Performed By: #### B CUL2 #### [place] [id number] Bariatric Coordinator: Kemal Waterman MD Cult,Bloodon 08-03-2023 Cult,Blood Specimen Description .BLOOD RIGHT .HAND Special Requests Culture NO GROWTH 5 DAYS Report Status FINAL 08/03/2023 Normal [facility] Comment on above: Performed By: #### C MPX, CBCWD, PLCON #### [place] [address] Bariatric Coordinator: Kemal Waterman MD Culture, Blood 1on 4 Microorganism identified Cx Nom (Unsp spec) NO GROWTH 5 DAYS [facility] Service comment (Unsp spec) [Interp] [facility] Specimen Description .BLOOD RIGHT [facility] Culture, Blood 2on 4 Microorganism identified Cx Nom (Unsp spec) NO GROWTH 5 DAYS [facility] Service comment (Unsp spec) [Interp] [facility] Specimen Description .BLOOD LEFT [facility] Platelet Confirmationon 07-17 Platelet Confirmation CONFIRMED Normal [facility] Comment on above: Performed By: #### A MON #### [address] [place] [address] Bariatric Coordinator: Kemal Waterman MD Platelet Confirmation CONFIRMED [facility] Ammoniaon 08-02-2023 Ammonia (P) [Moles/Vol] 75 umol/L High 16.0-60.0 [facility] Comment on above: Performed By: #### C MPX, CBCWD, PLCON #### [place] [id number] Bariatric Coordinator: Kemal Waterman MD Ammonia (P) [Moles/Vol] 75 umol/L High 16.0 - 60.0 umol/L [facility] Interpretation and review of laboratory results Abnormal [facility] CBC with Auto Differentialon 08-02-2023 Basophils (Bld) [#/Vol] 0 10*3/uL [facility] Basophils/100 WBC (Bld) 0 % 0.0 - 2.0 % [facility] Eosinophils (Bld) [#/Vol] 0.07 10*3/uL [facility] Eosinophils/100 WBC (Bld) 2 % 0 - 6 % [facility] Erythrocyte distribution width (RBC) [Ratio] 20.9 % High 11.5 - 15.0 % [facility] Hematocrit (Bld) [Volume fraction] 29.4 % Low 37.0 - 54.0 % [facility] Hemoglobin (Bld) [Mass/Vol] 9.8 g/dL Low 12.5 - 16.5 g/dL [facility] Interpretation and review of laboratory results Abnormal [facility] Lymphocytes/100 WBC (Bld) 11 % Low 20.0 - 42.0 % [facility] Lymphocytes/100 WBC (Bld) 0.46 % Low [facility] MCH (RBC) [Entitic mass] 32.2 pg 26.0 - 35.0 pg [facility] MCHC (RBC) [Mass/Vol] 33.3 g/dL 32.0 - 34.5 g/dL [facility] MCV (RBC) [Entitic vol] 96.7 fL 80.0 - 99.9 fL [facility] Monocytes/100 WBC (Bld) 11 % 2.0 - 12.0 % [facility] Monocytes/100 WBC (Bld) 0.42 % [facility] Neutrophils/100 WBC (Bld) 76 % 43.0 - 80.0 % [facility] Platelet mean volume (Bld) [Entitic vol] 10.6 fL 7.0 - 12.0 fL [facility] Platelets (Bld) [#/Vol] 54 10*3/uL Low [facility] RBC (Bld) [#/Vol] 3.04 10*6/uL Low 3.80 - 5.8 0 m/uL [facility] RBC (Bld) [#/Vol] 1+ ANISOCYTOSIS [facility] RBC (Bld) [#/Vol] 1+ SALOMON CELLS [facility] RBC (Bld) [#/Vol] 1+ POIKILOCYTOSIS [facility] RBC (Bld) [#/Vol] 1+ POLYCHROMASIA B ON [facility] RBC (Bld) [#/Vol] 1+ TEARDROPS [facility] Segmented neutrophils/100 WBC (Bld) 3.05 % [facility] WBC (Bld) [#/Vol] PRESENT SMUDGE CELLS [facility] WBC other (Bld) [#/Vol] 4.0 Low [facility] CBC with Diffon 08-02-2023 Abs. Basophil 0 k/uL Normal 0.00-0.20 [facility] Comment on above: Performed By: #### C MPX, CBCWD, PLCON #### [facility] [address] [place] [address] Bariatric Coordinator: Kemal Waterman MD Abs.Neutrophil (Seg) 3.05 k/uL Normal 1.80-7.30 [facility] Comment on above: Performed By: #### C MPX, CBCWD, PLCON #### [facility] [address] [place] [address] Bariatric Coordinator: Kemal Waterman MD Basophils/100 WBC (Bld) 0 % Normal 0.0-2.0 [facility] Comment on above: Performed By: #### C MPX, CBCWD, PLCON #### [address] [place] [address] Bariatric Coordinator: Kemal Waterman MD Eosinophils (Bld) [#/Vol] 0.07 10*3/uL Normal 0.05-0.50 [facility] Comment on above: Performed By: #### C MPX, CBCWD, PLCON #### [address] [place] [address] Bariatric Coordinator: Kemal Waterman MD Eosinophils/100 WBC (Bld) 2 % Normal 0-6 [facility] Comment on above: Performed By: #### C MPX, CBCWD, PLCON #### [address] [place] [address] Bariatric Coordinator: Kemal Waterman MD Lymphocytes (Bld) [#/Vol] 0.46 10*3/uL Low 1.50-4.00 [facility] Comment on above: Performed By: #### C MPX, CBCWD, PLCON #### [address] [place] [address] Bariatric Coordinator: Kemal Waterman MD Lymphocytes/100 WBC (Bld) 11 % Low 20.0-42.0 [facility] Comment on above: Performed By: #### C MPX, CBCWD, PLCON #### [address] [place] [address] Bariatric Coordinator: Kemal Waterman MD Monocytes (Bld) [#/Vol] 0.42 10*3/uL Normal 0.10-0.95 [facility] Comment on above: Performed By: #### C MPX, CBCWD, PLCON #### [address] [place] [address] Bariatric Coordinator: Kemal Waterman MD Monocytes/100 WBC (Bld) 11 % Normal 2.0-12.0 [facility] Comment on above: Performed By: #### C MPX, CBCWD, PLCON #### [address] [place] [address] Bariatric Coordinator: Kemal Waterman MD Neutrophil (Seg) 76 % Normal 43.0-80.0 [facility] Comment on above: Performed By: #### C MPX, CBCWD, PLCON #### [address] [place] [address] Bariatric Coordinator: Kemal Waterman MD RBC morphology finding Nom (Bld) 1+ Normal [facility] Comment on above: Result Comment: ANIS OCYTOSIS 1+ SALOMON CELLS 1+ POIKILOCYTOSIS 1+ POLYCHROMASIA 1+ TEARDROPS Performed By: #### C MPX, CBCWD, PLCON #### [address] [place] [address] Bariatric Coordinator: Kemal Waterman MD WBC Morphology PRESENT Normal [facility] Comment on above: Result Comment: SMUD GE CELLS Performed By: #### C MPX, CBCWD, PLCON #### [address] [place] [address] Bariatric Coordinator: Kemal Waterman MD Erythrocyte distribution width (RBC) [Ratio] 20.9 % High 11.5-15.0 [facility] Comment on above: Performed By: #### C MPX, CBCWD, PLCON #### [address] [place] [address] Bariatric Coordinator: Kemal Waterman MD Hematocrit (Bld) [Volume fraction] 29.4 % Low 37.0-54.0 [facility] Comment on above: Performed By: #### C MPX, CBCWD, PLCON #### [address] [place] [address] Bariatric Coordinator: Kemal Waterman MD Hemoglobin (Bld) [Mass/Vol] 9.8 g/dL Low 12.5-16.5 [facility] Comment on above: Performed By: #### C MPX, CBCWD, PLCON #### [place] [address] Bariatric Coordinator: Kemal Waterman MD MCH (RBC) [Entitic mass] 32.2 pg Normal 26.0-35.0 [facility] Comment on above: Performed By: #### C MPX, CBCWD, PLCON #### [place] [address] Bariatric Coordinator: Kemal Waterman MD MCHC (RBC) [Mass/Vol] 33.3 g/dL Normal 32.0-34.5 [facility] Comment on above: Performed By: #### C MPX, CBCWD, PLCON #### [place] [address] Bariatric Coordinator: Kemal Waterman MD MCV (RBC) [Entitic vol] 96.7 fL Normal 80.0-99.9 [facility] Comment on above: Performed By: #### C MPX, CBCWD, PLCON #### [address] [address] Bariatric Coordinator: Kemal Waterman MD Platelet mean volume (Bld) [Entitic vol] 10.6 fL Normal 7.0-12.0 [facility] Comment on above: Performed By: #### C MPX, CBCWD, PLCON #### [address] [place] [address] Bariatric Coordinator: Kemal Waterman MD Platelets (Bld) [#/Vol] 54 10*3/uL Low 130-450 [facility] Comment on above: Performed By: #### C MPX, CBCWD, PLCON #### [address] [place] [address] Bariatric Coordinator: Kemal Waterman MD RBC (Bld) [#/Vol] 3.04 10*6/uL Low 3.80-5.80 [facility] Comment on above: Performed By: #### C MPX, CBCWD, PLCON #### [address] [place] [address] Bariatric Coordinator: Kemal Waterman MD WBC (Bld) [#/Vol] 4.0 10*3/uL Low 4.5-11.5 [facility] Comment on above: Performed By: #### C MPX, CBCWD, PLCON #### [address] [place] [address] Bariatric Coordinator: Kemal Waterman MD Comp Metabolic Pr/rfx MGon 0 - Albumin [Mass/Vol] 2.6 g/dL Low 3.5-5.2 [facility] Comment on above: Performed By: #### C MPX, CBCWD, PLCON #### [address] [place] [address] Bariatric Coordinator: Kemal Waterman MD Alkaline Phos 156 U/L High 40-129 [facility] Comment on above: Performed By: #### C MPX, CBCWD, PLCON #### [address] [place] [address] Bariatric Coordinator: Kemal Waterman MD ALT [Catalytic activity/Vol] 25 U/L Normal 0-40 [facility] Comment on above: Performed By: #### C MPX, CBCWD, PLCON #### [address] [place] [address] Bariatric Coordinator: Kemal Waterman MD Anion gap [Moles/Vol] 8 mmol/L Normal 7-16 [facility] Comment on above: Performed By: #### C MPX, CBCWD, PLCON #### [address] [place] [address] Bariatric Coordinator: Kemal Waterman MD AST [Catalytic activity/Vol] 61 U/L High 0-39 [facility] Comment on above: Performed By: #### C MPX, CBCWD, PLCON #### [address] [place] [address] Bariatric Coordinator: Kemal Waterman MD Bilirubin [Mass/Vol] 1.7 mg/dL High 0.0-1.2 [facility] Comment on above: Performed By: #### C MPX, CBCWD, PLCON #### [address] [place] [address] Bariatric Coordinator: Kemal Waterman MD Calcium [Mass/Vol] 8.0 mg/dL Low 8.6-10.2 [facility] Comment on above: Performed By: #### C MPX, CBCWD, PLCON #### [address] [place] [address] Bariatric Coordinator: Kemal Waterman MD Chloride [Moles/Vol] 105 mmol/L Normal 98-107 [facility] Comment on above: Performed By: #### C MPX, CBCWD, PLCON #### [place] [address] Bariatric Coordinator: Kemal Waterman MD CO2 [Moles/Vol] 24 mmol/L Normal 22-29 [facility] Comment on above: Performed By: #### C MPX, CBCWD, PLCON #### [place] [address] Bariatric Coordinator: Kemal Waterman MD Creatinine [Mass/Vol] 0.6 mg/dL Low 0.70-1.20 [facility] Comment on above: Performed By: #### C MPX, CBCWD, PLCON #### [place] [address] Bariatric Coordinator: Kemal Waterman MD GFR/1.73 sq M.predicted among non-blacks MDRD (S/P/Bld) [Vol rate/Area] mL/min/{1.73_m2} Normal >60 [facility] Comment on above: Result Comment: These results [...] By: #### C MPX, CBCWD, PLCON #### [place] [address] Bariatric Coordinator: Kemal Waterman MD Glucose [Mass/Vol] 85 mg/dL Normal 74-99 [facility] Comment on above: Performed By: #### C MPX, CBCWD, PLCON #### [address] [place] [address] Bariatric Coordinator: Kemal Waterman MD Potassium [Moles/Vol] 4.1 mmol/L Normal 3.5-5.0 [facility] Comment on above: Performed By: #### C MPX, CBCWD, PLCON #### [address] [place] [address] Bariatric Coordinator: Kemal Waterman MD Protein [Mass/Vol] 5.5 g/dL Low 6.4-8.3 [facility] Comment on above: Performed By: #### C MPX, CBCWD, PLCON #### [address] [place] [address] Bariatric Coordinator: Kemal Waterman MD Sodium [Moles/Vol] 137 mmol/L Normal 132-146 [facility] Comment on above: Performed By: #### C MPX, CBCWD, PLCON #### [address] [place] [address] Bariatric Coordinator: Kemal Waterman MD Urea nitrogen [Mass/Vol] 7 mg/dL Normal 6-20 [facility] Comment on above: Performed By: #### C MPX, CBCWD, PLCON #### [address] [place] [address] Bariatric Coordinator: Kemal Waterman MD Comprehensive Metabolic Pane l w/ Reflex to MGon 08-02-2023 Albumin [Mass/Vol] 2.6 g/dL Low 3.5 - 5.2 g/dL [facility] ALP [Catalytic activity/Vol] 156 U/L High 40 - 129 U/L [facility] ALT [Catalytic activity/Vol] 25 U/L 0 - 40 U/L [facility] Anion gap [Moles/Vol] 8 mmol/L 7 - 16 mmol/L [facility] AST [Catalytic activity/Vol] 61 U/L High 0 - 39 U/L [facility] Bilirubin [Mass/Vol] 1.7 mg/dL High 0.0 - 1 .2 mg/dL [facility] Calcium [Mass/Vol] 8.0 mg/dL Low 8.6 - 10. 2 mg/dL [facility] Chloride [Moles/Vol] 105 mmol/L 98 - 10 7 mmol/L [facility] CO2 [Moles/Vol] 24 mmol/L 22 - 29 mmol/L [facility] Creatinine [Mass/Vol] 0.6 mg/dL Low 0.70 - 1.20 mg/dL [facility] GFR/1.73 sq M.predicted MDRD (S/P/Bld) [Vol rate/Area] - PINF [facility] Comment on above: These results are [...] [Mass/Vol] 85 mg/dL 74 - 99 mg/dL [facility] Interpretation and review of laboratory results Abnormal [facility] Potassium [Moles/Vol] 4.1 mmol/L 3.5 - 5.0 mmol/L [facility] Protein [Mass/Vol] 5.5 g/dL Low 6.4 - 8.3 g/dL [facility] Sodium [Moles/Vol] 137 mmol/L 132 - 146 mmol/L [facility] Urea nitrogen [Mass/Vol] 7 mg/dL 6 - 20 mg/dL [facility] Platelet Confirmationon 07-17 Platelet Confirmation CONFIRMED Normal [facility] Comment on above: Performed By: #### C MPX, CBCWD, PLCON #### [facility] [address] [place] [address] Bariatric Coordinator: Kemal Waterman MD Platelet Confirmation CONFIRMED [facility] Ammoniaon 08-01-2023 Ammonia (P) [Moles/Vol] 73 umol/L High 16.0-60.0 [facility] Comment on above: Performed By: #### A MON #### [facility] [address] [place] [address] Bariatric Coordinator: Kemal Waterman MD Ammonia (P) [Moles/Vol] 73 umol/L High 16.0 - 60.0 umol/L [facility] Interpretation and review of laboratory results Abnormal [facility] CBC with Auto Differentialon 08-01-2023 Basophils (Bld) [#/Vol] 0.00 10*3/uL [facility] Basophils/100 WBC (Bld) 0 % 0.0 - 2.0 % [facility] Eosinophils (Bld) [#/Vol] 0.07 10*3/uL [facility] Eosinophils/100 WBC (Bld) 2 % 0 - 6 % [facility] Erythrocyte distribution width (RBC) [Ratio] 20.5 % High 11.5 - 15.0 % [facility] Hematocrit (Bld) [Volume fraction] 28.3 % Low 37.0 - 54.0 % [facility] Hemoglobin (Bld) [Mass/Vol] 9.4 g/dL Low 12.5 - 16.5 g/dL [facility] Interpretation and review of laboratory results Abnormal [facility] Lymphocytes/100 WBC (Bld) 18 % Low 20.0 - 42.0 % [facility] Lymphocytes/100 WBC (Bld) 0.76 % Low [facility] MCH (RBC) [Entitic mass] 32.1 pg 26.0 - 35.[address] [facility] MCHC (RBC) [Mass/Vol] 33.2 g/dL 32.0 - 34.5 g/dL [facility] MCV (RBC) [Entitic vol] 96.6 fL 80.0 - 99.[address] [facility] Monocytes/100 WBC (Bld) 11 % 2.0 - 12.0 % [facility] Monocytes/100 WBC (Bld) 0.47 % [facility] Neutrophils/100 WBC (Bld) 68 % 43.0 - 80.0 % [facility] Platelet mean volume (Bld) [Entitic vol] 10.4 fL 7.0 - 12.0 fL [facility] Platelets (Bld) [#/Vol] 48 10*3/uL Low [facility] RBC (Bld) [#/Vol] 2.93 10*6/uL Low 3.80 - 5.8 0 m/uL [facility] RBC (Bld) [#/Vol] 2+ ANISOCYTOSIS [facility] RBC (Bld) [#/Vol] 1+ POIKILOCYTOSIS [facility] RBC (Bld) [#/Vol] 1+ TARGET CELLS [facility] RBC (Bld) [#/Vol] 2+ TEARDROPS [facility] Segmented neutrophils/100 WBC (Bld) 2.81 % [facility] WBC other (Bld) [#/Vol] 4.1 Low [facility] CBC with Diffon 08-01-2023 Abs. Basophil 0.00 k/uL Normal 0.00-0.20 [facility] Comment on above: Performed By: #### A MON #### [place] [address] Bariatric Coordinator: Kemal Waterman MD Abs.Neutrophil (Seg) 2.81 k/uL Normal 1.80-7.30 [facility] Comment on above: Performed By: #### A MON #### [address] [id number] Bariatric Coordinator: Kemal Waterman MD Basophils/100 WBC (Bld) 0 % Normal 0.0-2.0 [facility] Comment on above: Performed By: #### A MON #### [address] [place] [address] Bariatric Coordinator: Kemal Waterman MD Eosinophils (Bld) [#/Vol] 0.07 10*3/uL Normal 0.05-0.50 [facility] Comment on above: Performed By: #### A MON #### [address] [place] [address] Bariatric Coordinator: Kemal Waterman MD Eosinophils/100 WBC (Bld) 2 % Normal 0-6 [facility] Comment on above: Performed By: #### A MON #### [place] [address] Bariatric Coordinator: Kemal Waterman MD Lymphocytes (Bld) [#/Vol] 0.76 10*3/uL Low 1.50-4.00 [facility] Comment on above: Performed By: #### A MON #### [place] [address] Bariatric Coordinator: Kemal Waterman MD Lymphocytes/100 WBC (Bld) 18 % Low 20.0-42.0 [facility] Comment on above: Performed By: #### A MON #### [place] [address] Bariatric Coordinator: Kemal Waterman MD Monocytes (Bld) [#/Vol] 0.47 10*3/uL Normal 0.10-0.95 [facility] Comment on above: Performed By: #### A MON #### [place] [address] Bariatric Coordinator: Kemal Waterman MD Monocytes/100 WBC (Bld) 11 % Normal 2.0-12.0 [facility] Comment on above: Performed By: #### A MON #### [address] [address] Bariatric Coordinator: Kemal Waterman MD Neutrophil (Seg) 68 % Normal 43.0-80.0 [facility] Comment on above: Performed By: #### A MON #### [address] [address] Bariatric Coordinator: Kemal Waterman MD RBC morphology finding Nom (Bld) 2+ Normal [facility] Comment on above: Result Comment: ANIS OCYTOSIS 1+ POIKILOCYTOSIS 1+ TARGET CELLS 2+ TEARDROPS Performed By: #### A MON #### [place] [address] Bariatric Coordinator: Kemal Waterman MD Erythrocyte distribution width (RBC) [Ratio] 20.5 % High 11.5-15.0 [facility] Comment on above: Performed By: #### A MON #### [place] [address] Bariatric Coordinator: Kemal Waterman MD Hematocrit (Bld) [Volume fraction] 28.3 % Low 37.0-54.0 [facility] Comment on above: Performed By: #### A MON #### [place] [address] Bariatric Coordinator: Kemal Waterman MD Hemoglobin (Bld) [Mass/Vol] 9.4 g/dL Low 12.5-16.5 [facility] Comment on above: Performed By: #### A MON #### [address] [address] Bariatric Coordinator: Kemal Waterman MD MCH (RBC) [Entitic mass] 32.1 pg Normal 26.0-35.0 [facility] Comment on above: Performed By: #### A MON #### [address] [place] [address] Bariatric Coordinator: Kemal Waterman MD MCHC (RBC) [Mass/Vol] 33.2 g/dL Normal 32.0-34.5 [facility] Comment on above: Performed By: #### A MON #### [address] [address] Bariatric Coordinator: Kemal Waterman MD MCV (RBC) [Entitic vol] 96.6 fL Normal 80.0-99.9 [facility] Comment on above: Performed By: #### A MON #### [address] [address] Bariatric Coordinator: Kemal Waterman MD Platelet mean volume (Bld) [Entitic vol] 10.4 fL Normal 7.0-12.0 [facility] Comment on above: Performed By: #### A MON #### [address] [address] Bariatric Coordinator: Kemal Waterman MD Platelets (Bld) [#/Vol] 48 10*3/uL Low 130-450 [facility] Comment on above: Performed By: #### A MON #### [address] [address] Bariatric Coordinator: Kemal Waterman MD RBC (Bld) [#/Vol] 2.93 10*6/uL Low 3.80-5.80 [facility] Comment on above: Performed By: #### A MON #### [address] [address] Bariatric Coordinator: Kemal Waterman MD WBC (Bld) [#/Vol] 4.1 10*3/uL Low 4.5-11.5 [facility] Comment on above: Performed By: #### A MON #### [address] [place] [address] Bariatric Coordinator: Kemal Waterman MD Comp Metabolic Pr/rfx MGon 0 - Albumin [Mass/Vol] 2.9 g/dL Low 3.5-5.2 [facility] Comment on above: Performed By: #### A MON #### [address] [place] [address] Bariatric Coordinator: Kemal Waterman MD Alkaline Phos 135 U/L High 40-129 [facility] Comment on above: Performed By: #### A MON #### [address] [place] [address] Bariatric Coordinator: Kemal Waterman MD ALT [Catalytic activity/Vol] 29 U/L Normal 0-40 [facility] Comment on above: Performed By: #### A MON #### [address] [place] [address] Bariatric Coordinator: Kemal Waterman MD Anion gap [Moles/Vol] 11 mmol/L Normal 7-16 [facility] Comment on above: Performed By: #### A MON #### [address] [place] [address] Bariatric Coordinator: Kemal Waterman MD AST [Catalytic activity/Vol] 79 U/L High 0-39 [facility] Comment on above: Performed By: #### A MON #### [address] [place] [address] Bariatric Coordinator: Kemal Waterman MD Bilirubin [Mass/Vol] 1.7 mg/dL High 0.0-1.2 [facility] Comment on above: Performed By: #### A MON #### [address] [place] [address] Bariatric Coordinator: Kemal Waterman MD Calcium [Mass/Vol] 7.6 mg/dL Low 8.6-10.2 [facility] Comment on above: Performed By: #### A MON #### [address] [place] [address] Bariatric Coordinator: Kemal Waterman MD Chloride [Moles/Vol] 101 mmol/L Normal 98-107 [facility] Comment on above: Performed By: #### A MON #### [address] [place] [address] Bariatric Coordinator: Kemal Waterman MD CO2 [Moles/Vol] 23 mmol/L Normal 22-29 [facility] Comment on above: Performed By: #### A MON #### [address] [place] [address] Bariatric Coordinator: Kemal Waterman MD Creatinine [Mass/Vol] 0.7 mg/dL Normal 0.70-1.20 [facility] Comment on above: Performed By: #### A MON #### [address] [place] [address] Bariatric Coordinator: Kemal Waterman MD GFR/1.73 sq M.predicted among non-blacks MDRD (S/P/Bld) [Vol rate/Area] mL/min/{1.73_m2} Normal >60 [facility] Comment on above: Result Comment: These results [...] secretion. Performed By: #### A MON #### [address] [place] [address] Bariatric Coordinator: Kemal Waterman MD Glucose [Mass/Vol] 96 mg/dL Normal 74-99 [facility] Comment on above: Performed By: #### A MON #### [address] [address] Bariatric Coordinator: Kemal Waterman MD Potassium [Moles/Vol] 3.4 mmol/L Low 3.5-5.0 [facility] Comment on above: Performed By: #### A MON #### [address] [address] Bariatric Coordinator: Kemal Waterman MD Protein [Mass/Vol] 5.6 g/dL Low 6.4-8.3 [facility] Comment on above: Performed By: #### A MON #### [address] [address] Bariatric Coordinator: Kemal Waterman MD Sodium [Moles/Vol] 135 mmol/L Normal 132-146 [facility] Comment on above: Performed By: #### A MON #### [address] [address] Bariatric Coordinator: Kemal Waterman MD Urea nitrogen [Mass/Vol] 8 mg/dL Normal 6-20 [facility] Comment on above: Performed By: #### A MON #### [address] [place] [address] Bariatric Coordinator: Kemal Waterman MD Comprehensive Metabolic Pane l w/ Reflex to MGon 08-01-2023 Albumin [Mass/Vol] 2.9 g/dL Low 3.5 - 5.2 g/dL [facility] ALP [Catalytic activity/Vol] 135 U/L High 40 - 129 U/L [facility] ALT [Catalytic activity/Vol] 29 U/L 0 - 40 U/L [facility] Anion gap [Moles/Vol] 11 mmol/L 7 - 16 mmol/L [facility] AST [Catalytic activity/Vol] 79 U/L High 0 - 39 U/L [facility] Bilirubin [Mass/Vol] 1.7 mg/dL High 0.0 - 1 .2 mg/dL [facility] Calcium [Mass/Vol] 7.6 mg/dL Low 8.6 - 10. 2 mg/dL [facility] Chloride [Moles/Vol] 101 mmol/L 98 - 10 7 mmol/L [facility] CO2 [Moles/Vol] 23 mmol/L 22 - 29 mmol/L [facility] Creatinine [Mass/Vol] 0.7 mg/dL 0.70 - 1.20 mg/dL [facility] GFR/1.73 sq M.predicted MDRD (S/P/Bld) [Vol rate/Area] - PINF [facility] Comment on above: These results are [...] [Mass/Vol] 96 mg/dL 74 - 99 mg/dL [facility] Interpretation and review of laboratory results Abnormal [facility] Potassium [Moles/Vol] 3.4 mmol/L Low 3.5 - 5.0 mmol/L [facility] Protein [Mass/Vol] 5.6 g/dL Low 6.4 - 8.3 g/dL [facility] Sodium [Moles/Vol] 135 mmol/L 132 - 146 mmol/L [facility] Urea nitrogen [Mass/Vol] 8 mg/dL 6 - 20 mg/dL [facility] Magnesiumon 08-01-2023 Magnesium [Mass/Vol] 1.6 mg/dL Normal 1.6-2.6 [facility] Comment on above: Performed By: #### A MON #### [place] [address] Bariatric Coordinator: Kemal Waterman MD Magnesium [Mass/Vol] 1.6 mg/dL 1.6 - 2 .6 mg/dL [facility] No Panel Informationon 08-01 [facility] Platelet Confirmationon 07-17 Platelet Confirmation CONFIRMED Normal [facility] Comment on above: Performed By: #### A MON #### [place] [address] Bariatric Coordinator: Kemal Waterman MD Platelet Confirmation CONFIRMED [facility] Ammoniaon 07-31-2023 Ammonia (P) [Moles/Vol] 34 umol/L Normal 16.0-60.0 [facility] Comment on above: Performed By: #### C MPX, CBCWD, PLCON #### [place] [address] Bariatric Coordinator: Kemal Waterman MD Ammonia (P) [Moles/Vol] 34 umol/L 16.0 - 60.0 umol/L [facility] CBC with Auto Differentialon 07-31-2023 Basophils (Bld) [#/Vol] 0.02 10*3/uL [facility] Basophils/100 WBC (Bld) 0 % 0.0 - 2.0 % [facility] Eosinophils (Bld) [#/Vol] 0.08 10*3/uL [facility] Eosinophils/100 WBC (Bld) 2 % 0 - 6 % [facility] Erythrocyte distribution width (RBC) [Ratio] 20.8 % High 11.5 - 15.0 % [facility] Hematocrit (Bld) [Volume fraction] 30.6 % Low 37.0 - 54.0 % [facility] Hemoglobin (Bld) [Mass/Vol] 10.1 g/dL Low 12.5 - 16.5 g/dL [facility] Immature granulocytes (Bld) [#/Vol] 0.04 10*3/uL [facility] Immature granulocytes/100 WBC (Bld) 1 % 0.0 - 5.0 % [facility] Interpretation and review of laboratory results Abnormal [facility] Lymphocytes/100 WBC (Bld) 18 % Low 20.0 - 42.0 % [facility] Lymphocytes/100 WBC (Bld) 0.96 % Low [facility] MCH (RBC) [Entitic mass] 32.7 pg 26.0 - 35.0 pg [facility] MCHC (RBC) [Mass/Vol] 33.0 g/dL 32.0 - 34.5 g/dL [facility] MCV (RBC) [Entitic vol] 99.0 fL 80.0 - 99.9 fL [facility] Monocytes/100 WBC (Bld) 16 % High 2.0 - 12.0 % [facility] Monocytes/100 WBC (Bld) 0.87 % [facility] Neutrophils/100 WBC (Bld) 64 % 43.0 - 80.0 % [facility] Platelet mean volume (Bld) [Entitic vol] 9.9 fL 7.0 - 12.0 fL [facility] Platelets (Bld) [#/Vol] 50 10*3/uL Low [facility] RBC (Bld) [#/Vol] 3.09 10*6/uL Low 3.80 - 5.8 0 m/uL [facility] RBC (Bld) [#/Vol] 1+ ANISOCYTOSIS [facility] RBC (Bld) [#/Vol] 1+ OVALOCYTES [facility] RBC (Bld) [#/Vol] 1+ POIKILOCYTOSIS [facility] RBC (Bld) [#/Vol] 1+ POLYCHROMASIA B ON [facility] Segmented neutrophils/100 WBC (Bld) 3.52 % [facility] WBC other (Bld) [#/Vol] 5.5 [facility] CBC with Diffon 07-31-2023 RBC morphology finding Nom (Bld) 1+ Normal [facility] Comment on above: Result Comment: ANIS OCYTOSIS 1+ OVALOCYTES 1+ POIKILOCYTOSIS 1+ POLYCHROMASIA Performed By: #### C MPX, CBCWD, PLCON #### [place] [address] Bariatric Coordinator: Kemal Waterman MD Abs. Basophil 0.02 k/uL Normal 0.00-0.20 [facility] Comment on above: Performed By: #### C MPX, CBCWD, PLCON #### [place] [address] Bariatric Coordinator: Kemal Waterman MD Abs.Imm.Granulocyte 0.04 k/uL Normal 0.00-0.58 [facility] Comment on above: Performed By: #### C MPX, CBCWD, PLCON #### [place] [address] Bariatric Coordinator: Kemal Waterman MD Abs.Neutrophil (Seg) 3.52 k/uL Normal 1.80-7.30 [facility] Comment on above: Performed By: #### C MPX, CBCWD, PLCON #### [place] [address] Bariatric Coordinator: Kemal Waterman MD Basophils/100 WBC (Bld) 0 % Normal 0.0-2.0 [facility] Comment on above: Performed By: #### C MPX, CBCWD, PLCON #### [address] [address] Bariatric Coordinator: Kemal Waterman MD Eosinophils (Bld) [#/Vol] 0.08 10*3/uL Normal 0.05-0.50 [facility] Comment on above: Performed By: #### C MPX, CBCWD, PLCON #### [place] [address] Bariatric Coordinator: Kemal Waterman MD Eosinophils/100 WBC (Bld) 2 % Normal 0-6 [facility] Comment on above: Performed By: #### C MPX, CBCWD, PLCON #### [place] [address] Bariatric Coordinator: Kemal Waterman MD Immature granulocytes/100 WBC (Bld) 1 % Normal 0.0-5.0 [facility] Comment on above: Performed By: #### C MPX, CBCWD, PLCON #### [place] [address] Bariatric Coordinator: Kemal Waterman MD Lymphocytes (Bld) [#/Vol] 0.96 10*3/uL Low 1.50-4.00 [facility] Comment on above: Performed By: #### C MPX, CBCWD, PLCON #### [place] [address] Bariatric Coordinator: Kemal Waterman MD Lymphocytes/100 WBC (Bld) 18 % Low 20.0-42.0 [facility] Comment on above: Performed By: #### C MPX, CBCWD, PLCON #### [place] [address] Bariatric Coordinator: Kemal Waterman MD Monocytes (Bld) [#/Vol] 0.87 10*3/uL Normal 0.10-0.95 [facility] Comment on above: Performed By: #### C MPX, CBCWD, PLCON #### [address] [place] [address] Bariatric Coordinator: Kemal Waterman MD Monocytes/100 WBC (Bld) 16 % High 2.0-12.0 [facility] Comment on above: Performed By: #### C MPX, CBCWD, PLCON #### [address] [place] [address] Bariatric Coordinator: Kemal Waterman MD Neutrophil (Seg) 64 % Normal 43.0-80.0 [facility] Comment on above: Performed By: #### C MPX, CBCWD, PLCON #### [address] [place] [address] Bariatric Coordinator: Kemal Watreman MD Erythrocyte distribution width (RBC) [Ratio] 20.8 % High 11.5-15.0 [facility] Comment on above: Performed By: #### C MPX, CBCWD, PLCON #### [address] [place] [address] Bariatric Coordinator: Kemal Waterman MD Hematocrit (Bld) [Volume fraction] 30.6 % Low 37.0-54.0 [facility] Comment on above: Performed By: #### C MPX, CBCWD, PLCON #### [address] [place] [address] Bariatric Coordinator: Kemal Waterman MD Hemoglobin (Bld) [Mass/Vol] 10.1 g/dL Low 12.5-16.5 [facility] Comment on above: Performed By: #### C MPX, CBCWD, PLCON #### [address] [place] [address] Bariatric Coordinator: Kemal Waterman MD MCH (RBC) [Entitic mass] 32.7 pg Normal 26.0-35.0 [facility] Comment on above: Performed By: #### C MPX, CBCWD, PLCON #### [address] [place] [address] Bariatric Coordinator: Kemal Waterman MD MCHC (RBC) [Mass/Vol] 33.0 g/dL Normal 32.0-34.5 [facility] Comment on above: Performed By: #### C MPX, CBCWD, PLCON #### [address] [place] [address] Bariatric Coordinator: Kemal Waterman MD MCV (RBC) [Entitic vol] 99.0 fL Normal 80.0-99.9 [facility] Comment on above: Performed By: #### C MPX, CBCWD, PLCON #### [address] [place] [address] Bariatric Coordinator: Kemal Waterman MD Platelet mean volume (Bld) [Entitic vol] 9.9 fL Normal 7.0-12.0 [facility] Comment on above: Performed By: #### C MPX, CBCWD, PLCON #### [address] [place] [address] Bariatric Coordinator: Kemal Waterman MD Platelets (Bld) [#/Vol] 50 10*3/uL Low 130-450 [facility] Comment on above: Performed By: #### C MPX, CBCWD, PLCON #### [address] [place] [address] Bariatric Coordinator: Kemal Waterman MD RBC (Bld) [#/Vol] 3.09 10*6/uL Low 3.80-5.80 [facility] Comment on above: Performed By: #### C MPX, CBCWD, PLCON #### [address] [place] [address] Bariatric Coordinator: Kemal Waterman MD WBC (Bld) [#/Vol] 5.5 10*3/uL Normal 4.5-11.5 [facility] Comment on above: Performed By: #### C MPX, CBCWD, PLCON #### [address] [address] Bariatric Coordinator: Kemal Waterman MD Comp Metabolic Pr/rfx MGon 0 -15 Albumin [Mass/Vol] 2.9 g/dL Low 3.5-5.2 [facility] Comment on above: Performed By: #### C MPX, CBCWD, PLCON #### [address] [address] Bariatric Coordinator: Kemal Waterman MD Alkaline Phos 126 U/L Normal 40-129 [facility] Comment on above: Performed By: #### C MPX, CBCWD, PLCON #### [address] [address] Bariatric Coordinator: Kemal Waterman MD ALT [Catalytic activity/Vol] 30 U/L Normal 0-40 [facility] Comment on above: Performed By: #### C MPX, CBCWD, PLCON #### [address] [address] Bariatric Coordinator: Kemal Waterman MD Anion gap [Moles/Vol] 10 mmol/L Normal 7-16 [facility] Comment on above: Performed By: #### C MPX, CBCWD, PLCON #### [address] [address] Bariatric Coordinator: Kemal Waterman MD AST [Catalytic activity/Vol] 83 U/L High 0-39 [facility] Comment on above: Performed By: #### C MPX, CBCWD, PLCON #### [address] [place] [address] Bariatric Coordinator: Kemal Waterman MD Bilirubin [Mass/Vol] 2.0 mg/dL High 0.0-1.2 [facility] Comment on above: Performed By: #### C MPX, CBCWD, PLCON #### [address] [address] Bariatric Coordinator: Kemal Waterman MD Calcium [Mass/Vol] 7.6 mg/dL Low 8.6-10.2 [facility] Comment on above: Performed By: #### C MPX, CBCWD, PLCON #### [address] [address] Bariatric Coordinator: Kemal Waterman MD Chloride [Moles/Vol] 102 mmol/L Normal 98-107 [facility] Comment on above: Performed By: #### C MPX, CBCWD, PLCON #### [address] [address] Bariatric Coordinator: Kemal Waterman MD CO2 [Moles/Vol] 23 mmol/L Normal 22-29 [facility] Comment on above: Performed By: #### C MPX, CBCWD, PLCON #### [address] [address] Bariatric Coordinator: Kemal Waterman MD Creatinine [Mass/Vol] 0.8 mg/dL Normal 0.70-1.20 [facility] Comment on above: Performed By: #### C MPX, CBCWD, PLCON #### [address] [address] Bariatric Coordinator: Kemal Waterman MD GFR/1.73 sq M.predicted among non-blacks MDRD (S/P/Bld) [Vol rate/Area] mL/min/{1.73_m2} Normal >60 [facility] Comment on above: Result Comment: These results [...] By: #### C MPX, CBCWD, PLCON #### [address] [address] Bariatric Coordinator: Kemal Waterman MD Glucose [Mass/Vol] 83 mg/dL Normal 74-99 [facility] Comment on above: Performed By: #### C MPX, CBCWD, PLCON #### [address] [address] Bariatric Coordinator: Kemal Waterman MD Potassium [Moles/Vol] 3.7 mmol/L Normal 3.5-5.0 [facility] Comment on above: Performed By: #### C MPX, CBCWD, PLCON #### [address] [address] Bariatric Coordinator: Kemal Waterman MD Protein [Mass/Vol] 5.9 g/dL Low 6.4-8.3 [facility] Comment on above: Performed By: #### C MPX, CBCWD, PLCON #### [address] [address] Bariatric Coordinator: Kemal Waterman MD Sodium [Moles/Vol] 135 mmol/L Normal 132-146 [facility] Comment on above: Performed By: #### C MPX, CBCWD, PLCON #### [facility] [address] [facility] [place] [address] Bariatric Coordinator: Kemal Waterman MD Urea nitrogen [Mass/Vol] 10 mg/dL Normal 6-20 [facility] Comment on above: Performed By: #### C MPX, CBCWD, PLCON #### [facility] [address] [facility] [place] [address] Bariatric Coordinator: Kemal Waterman MD Comprehensive Metabolic Pane l w/ Reflex to MGon 07-31-2023 Albumin [Mass/Vol] 2.9 g/dL Low 3.5 - 5.2 g/dL [facility] ALP [Catalytic activity/Vol] 126 U/L 40 - 129 U/L [facility] ALT [Catalytic activity/Vol] 30 U/L 0 - 40 U/L [facility] Anion gap [Moles/Vol] 10 mmol/L 7 - 16 mmol/L [facility] AST [Catalytic activity/Vol] 83 U/L High 0 - 39 U/L [facility] Bilirubin [Mass/Vol] 2.0 mg/dL High 0.0 - 1 .2 mg/dL [facility] Calcium [Mass/Vol] 7.6 mg/dL Low 8.6 - 10. 2 mg/dL [facility] Chloride [Moles/Vol] 102 mmol/L 98 - 10 7 mmol/L [facility] CO2 [Moles/Vol] 23 mmol/L 22 - 29 mmol/L [facility] Creatinine [Mass/Vol] 0.8 mg/dL 0.70 - 1.20 mg/dL [facility] GFR/1.73 sq M.predicted MDRD (S/P/Bld) [Vol rate/Area] - PINF [facility] Comment on above: These results are [...] [Mass/Vol] 83 mg/dL 74 - 99 mg/dL [facility] Interpretation and review of laboratory results Abnormal [facility] Potassium [Moles/Vol] 3.7 mmol/L 3.5 - 5.0 mmol/L [facility] Protein [Mass/Vol] 5.9 g/dL Low 6.4 - 8.3 g/dL [facility] Sodium [Moles/Vol] 135 mmol/L 132 - 146 mmol/L [facility] Urea nitrogen [Mass/Vol] 10 mg/dL 6 - 20 mg/dL [facility] Drug Scr, Abuse, Uron 2023 Amphetamine(s),Ur Negative Normal NEG [facility] Comment on above: Result Comment: Cuto ff: 1000 ng/mL Performed By: #### D AU #### [address] [place] [address] Bariatric Coordinator: Kemal Waterman MD Barbiturate(s),Ur Negative Normal NEG [facility] Comment on above: Result Comment: Cuto ff: 200 ng/ml Performed By: #### D AU #### [address] [place] [address] Bariatric Coordinator: Kemal Waterman MD Benzodiazepine(s) Negative Normal NEG [facility] Comment on above: Result Comment: Cuto ff: 200 ng/ml Performed By: #### D AU #### [place] [address] Bariatric Coordinator: Kemal Waterman MD Buprenorphrine, Ur Negative Normal NEG [facility] Comment on above: Result Comment: Cuto ff: 5 ng/ml Performed By: #### D AU #### [address] [place] [address] Bariatric Coordinator: Kemal Waterman MD Cannabinoid(s),Ur Positive Abnormal NEG [facility] Comment on above: Result Comment: Cuto ff: 50 ng/ml Performed By: #### D AU #### [place] [address] [place] [address] Bariatric Coordinator: Kemal Waterman MD Cocaine Metabolite Negative Normal NEG [facility] Comment on above: Result Comment: Cuto ff: 300 ng/ml Performed By: #### D AU #### [address] [place] [address] Bariatric Coordinator: Kemal Waterman MD Fentanyl, Urine Negative Normal NEG [facility] Comment on above: Result Comment: Cuto ff: 1.0 ng/ml Performed By: #### D AU #### [address] [place] [address] Bariatric Coordinator: Kemal Waterman MD Interpretive Info These drug screen results are for medical purposes only and should not be Normal [facility] Comment on above: Result Comment: cons idered definitive or confirmed. The drug methodology concentration value must be greater than or equal to the cutoff to be reported as positive. Confirmtory testing orders and/or interpretive sceening questions can be directed to toxicology at [phone]. The absence of expected drug(s) and/or metabolite(s) may be due to inappropriate timing of specimen collection relative to drug administration, poor drug absorption, diluted/adulterated urine, or limitations of screening methodology. Performed By: #### D AU #### [address] [place] [address] Bariatric Coordinator: Kemal Waterman MD Methadone Ql (U) Negative Normal NEG [facility] Comment on above: Result Comment: Cuto ff: 300 ng/ml Performed By: #### D AU #### [address] [place] [address] Bariatric Coordinator: eKmal Waterman MD Opiate(s), Ur Negative Normal NEG [facility] Comment on above: Result Comment: Cuto ff: 300 ng/ml Note: The Opiate screen is not intended to detect Oxycodone. Performed By: #### D AU #### [address] [place] [address] Bariatric Coordinator: Kemal Waterman MD Oxycodone, Urine Positive Abnormal NEG [facility] Comment on above: Result Comment: Cuto ff: 100 ng/ml Performed By: #### D AU #### [address] [place] [address] Bariatric Coordinator: Kemal Waterman MD Phencyclidine, Ur Negative Normal NEG [facility] Comment on above: Result Comment: Cuto ff: 25 ng/ml Performed By: #### D AU #### [address] [place] [address] Bariatric Coordinator: Kemal Waterman MD No Panel Informationon 07-31 [facility] PTon 07-31-2023 INR Coag (PPP) [Relative time] 1.6 {INR} Normal [facility] Comment on above: Result Comment: Therapeutic Range: Moderate Anticoagulant Intensity: INR = 2.0-3.0 High Anticoagulant Intensity: INR = 2.5-3.5 Performed By: #### C MPX, CBCWD, PLCON #### [address] [place] [address] Bariatric Coordinator: Kemal Waterman MD PT Coag (PPP) [Time] 17.0 s High 9.3-12.4 [facility] Comment on above: Performed By: #### C MPX, CBCWD, PLCON #### [address] [place] [address] Bariatric Coordinator: Kemal Waterman MD Platelet Confirmationon 07-17 Platelet Confirmation CONFIRMED Normal [facility] Comment on above: Performed By: #### C MPX, CBCWD, PLCON #### [facility] [address] [place] [address] Bariatric Coordinator: Kemal Waterman MD Platelet Confirmation CONFIRMED BON [...] 100 ng/ml Phencyclidine Ql (U) Negative NEGATIVE [facility] Comment on above: Cutoff: 25 ng/ml Test Information These drug screen results are for medical purposes only and should not be considered definitive or confirmed. [facility] Comment on above: The drug methodology concentration value must be greater than or equal to the cutoff to be reported as positive. Confirmtory testing orders and/or interpretive sceening questions can be directed to toxicology at [phone]. The absence of expected drug(s) and/or metabolite(s) may be due to inappropriate timing of specimen collection relative to drug administration, poor drug absorption, diluted/adulterated urine, or limitations of screening methodology. [facility] Ammoniaon 07-30-2023 Ammonia (P) [Moles/Vol] 82 umol/L High 16.0-60.0 [facility] Comment on above: Performed By: #### C MPX, CBCWD, PLCON #### [facility] [address] [place] [address] Bariatric Coordinator: Kemal Waterman MD Ammonia (P) [Moles/Vol] 82 umol/L High 16.0 - 60.0 umol/L [facility] Interpretation and review of laboratory results Abnormal [facility] CBC with Auto Differentialon 07-30-2023 Basophils (Bld) [#/Vol] 0.02 10*3/uL [facility] Basophils/100 WBC (Bld) 0 % 0.0 - 2.0 % [facility] Eosinophils (Bld) [#/Vol] 0.02 10*3/uL Low [facility] Eosinophils/100 WBC (Bld) 0 % 0 - 6 % [facility] Erythrocyte distribution width (RBC) [Ratio] 20.0 % High 11.5 - 15.0 % [facility] Hematocrit (Bld) [Volume fraction] 28.1 % Low 37.0 - 54.0 % [facility] Hemoglobin (Bld) [Mass/Vol] 9.2 g/dL Low 12.5 - 16.5 g/dL [facility] Immature granulocytes (Bld) [#/Vol] 0.03 10*3/uL [facility] Immature granulocytes/100 WBC (Bld) 1 % 0.0 - 5.0 % [facility] Interpretation and review of laboratory results Abnormal [facility] Lymphocytes/100 WBC (Bld) 15 % Low 20.0 - 42.0 % [facility] Lymphocytes/100 WBC (Bld) 0.90 % Low [facility] MCH (RBC) [Entitic mass] 31.8 pg 26.0 - 35.0 pg [facility] MCHC (RBC) [Mass/Vol] 32.7 g/dL 32.0 - 34.5 g/dL [facility] MCV (RBC) [Entitic vol] 97.2 fL 80.0 - 99.9 fL [facility] Monocytes/100 WBC (Bld) 14 % High 2.0 - 12.0 % [facility] Monocytes/100 WBC (Bld) 0.84 % [facility] Neutrophils/100 WBC (Bld) 71 % 43.0 - 80.0 % [facility] Platelet mean volume (Bld) [Entitic vol] 10.5 fL 7.0 - 12.0 fL [facility] Platelet, Fluorescence 49 Low [facility] RBC (Bld) [#/Vol] 2.89 10*6/uL Low 3.80 - 5.8 0 m/uL [facility] Segmented neutrophils/100 WBC (Bld) 4.31 % [facility] WBC other (Bld) [#/Vol] 6.1 [facility] CBC with Diffon 07-30-2023 Abs. Basophil 0.02 k/uL Normal 0.00-0.20 [facility] Comment on above: Performed By: #### C MPX, CBCWD, PLCON #### [facility] [address] [place] [address] Bariatric Coordinator: Kemal Waterman MD Abs.Imm.Granulocyte 0.03 k/uL Normal 0.00-0.58 [facility] Comment on above: Performed By: #### C MPX, CBCWD, PLCON #### [place] [address] Bariatric Coordinator: Kemal Waterman MD Abs.Neutrophil (Seg) 4.31 k/uL Normal 1.80-7.30 [facility] Comment on above: Performed By: #### C MPX, CBCWD, PLCON #### [address] [place] [address] Bariatric Coordinator: Kemal Waterman MD Basophils/100 WBC (Bld) 0 % Normal 0.0-2.0 [facility] Comment on above: Performed By: #### C MPX, CBCWD, PLCON #### [place] [address] Bariatric Coordinator: Kemal Waterman MD Eosinophils (Bld) [#/Vol] 0.02 10*3/uL Low 0.05-0.50 [facility] Comment on above: Performed By: #### C MPX, CBCWD, PLCON #### [place] [address] Bariatric Coordinator: Kemal Waterman MD Eosinophils/100 WBC (Bld) 0 % Normal 0-6 [facility] Comment on above: Performed By: #### C MPX, CBCWD, PLCON #### [place] [address] Bariatric Coordinator: Kemal Waterman MD Erythrocyte distribution width (RBC) [Ratio] 20.0 % High 11.5-15.0 [facility] Comment on above: Performed By: #### C MPX, CBCWD, PLCON #### [place] [address] Bariatric Coordinator: Kemal Waterman MD Hematocrit (Bld) [Volume fraction] 28.1 % Low 37.0-54.0 [facility] Comment on above: Performed By: #### C MPX, CBCWD, PLCON #### [place] [address] Bariatric Coordinator: Kemal Waterman MD Hemoglobin (Bld) [Mass/Vol] 9.2 g/dL Low 12.5-16.5 [facility] Comment on above: Performed By: #### C MPX, CBCWD, PLCON #### [place] [address] Bariatric Coordinator: Kemal Waterman MD Immature granulocytes/100 WBC (Bld) 1 % Normal 0.0-5.0 [facility] Comment on above: Performed By: #### C MPX, CBCWD, PLCON #### [place] [address] Bariatric Coordinator: Kemal Waterman MD Lymphocytes (Bld) [#/Vol] 0.90 10*3/uL Low 1.50-4.00 [facility] Comment on above: Performed By: #### C MPX, CBCWD, PLCON #### [place] [address] Bariatric Coordinator: Kemal Waterman MD Lymphocytes/100 WBC (Bld) 15 % Low 20.0-42.0 [facility] Comment on above: Performed By: #### C MPX, CBCWD, PLCON #### [place] [address] Bariatric Coordinator: Kemal Waterman MD MCH (RBC) [Entitic mass] 31.8 pg Normal 26.0-35.0 [facility] Comment on above: Performed By: #### C MPX, CBCWD, PLCON #### [address] [place] [address] Bariatric Coordinator: Kemal Waterman MD MCHC (RBC) [Mass/Vol] 32.7 g/dL Normal 32.0-34.5 [facility] Comment on above: Performed By: #### C MPX, CBCWD, PLCON #### [address] [place] [address] Bariatric Coordinator: Kemal Waterman MD MCV (RBC) [Entitic vol] 97.2 fL Normal 80.0-99.9 [facility] Comment on above: Performed By: #### C MPX, CBCWD, PLCON #### [address] [place] [address] Bariatric Coordinator: Kemal Waterman MD Monocytes (Bld) [#/Vol] 0.84 10*3/uL Normal 0.10-0.95 [facility] Comment on above: Performed By: #### C MPX, CBCWD, PLCON #### [address] [place] [address] Bariatric Coordinator: Kemal Waterman MD Monocytes/100 WBC (Bld) 14 % High 2.0-12.0 [facility] Comment on above: Performed By: #### C MPX, CBCWD, PLCON #### [address] [place] [address] Bariatric Coordinator: Kemal Waterman MD Neutrophil (Seg) 71 % Normal 43.0-80.0 [facility] Comment on above: Performed By: #### C MPX, CBCWD, PLCON #### [address] [place] [address] Bariatric Coordinator: Kemal Waterman MD Platelet mean volume (Bld) [Entitic vol] 10.5 fL Normal 7.0-12.0 [facility] Comment on above: Performed By: #### C MPX, CBCWD, PLCON #### [address] [place] [address] Bariatric Coordinator: Kemal Waterman MD Platelet, Fluoresc. 49 k/uL Low 130-450 [facility] Comment on above: Performed By: #### C MPX, CBCWD, PLCON #### [address] [place] [address] Bariatric Coordinator: Kemal Waterman MD RBC (Bld) [#/Vol] 2.89 10*6/uL Low 3.80-5.80 [facility] Comment on above: Performed By: #### C MPX, CBCWD, PLCON #### [address] [place] [address] Bariatric Coordinator: Kemal Waterman MD WBC (Bld) [#/Vol] 6.1 10*3/uL Normal 4.5-11.5 [facility] Comment on above: Performed By: #### C MPX, CBCWD, PLCON #### [address] [place] [address] Bariatric Coordinator: Kemal Waterman MD Comp Metabolic Pr/rfx MGon 0 - Albumin [Mass/Vol] 3.0 g/dL Low 3.5-5.2 [facility] Comment on above: Performed By: #### C MPX, CBCWD, PLCON #### [address] [place] [address] Bariatric Coordinator: Kemal Waterman MD Alkaline Phos 127 U/L Normal 40-129 [facility] Comment on above: Performed By: #### C MPX, CBCWD, PLCON #### [address] [place] [address] Bariatric Coordinator: Kemal Waterman MD ALT [Catalytic activity/Vol] 26 U/L Normal 0-40 [facility] Comment on above: Performed By: #### C MPX, CBCWD, PLCON #### [address] [place] [address] Bariatric Coordinator: Kemal Waterman MD Anion gap [Moles/Vol] 10 mmol/L Normal 7-16 [facility] Comment on above: Performed By: #### C MPX, CBCWD, PLCON #### [address] [place] [address] Bariatric Coordinator: Kemal Waterman MD AST [Catalytic activity/Vol] 78 U/L High 0-39 [facility] Comment on above: Performed By: #### C MPX, CBCWD, PLCON #### [address] [place] [address] Bariatric Coordinator: Kemal Waterman MD Bilirubin [Mass/Vol] 2.7 mg/dL High 0.0-1.2 [facility] Comment on above: Performed By: #### C MPX, CBCWD, PLCON #### [address] [place] [address] Bariatric Coordinator: Kemal Waterman MD Calcium [Mass/Vol] 7.6 mg/dL Low 8.6-10.2 [facility] Comment on above: Performed By: #### C MPX, CBCWD, PLCON #### [address] [place] [address] Bariatric Coordinator: Kemal Waterman MD Chloride [Moles/Vol] 99 mmol/L Normal 98-107 [facility] Comment on above: Performed By: #### C MPX, CBCWD, PLCON #### [address] [address] Bariatric Coordinator: Kemal Waterman MD CO2 [Moles/Vol] 23 mmol/L Normal 22-29 [facility] Comment on above: Performed By: #### C MPX, CBCWD, PLCON #### [address] [address] Bariatric Coordinator: Kemal Waterman MD Creatinine [Mass/Vol] 0.8 mg/dL Normal 0.70-1.20 [facility] Comment on above: Performed By: #### C MPX, CBCWD, PLCON #### [place] [address] Bariatric Coordinator: Kemal Waterman MD GFR/1.73 sq M.predicted among non-blacks MDRD (S/P/Bld) [Vol rate/Area] mL/min/{1.73_m2} Normal >60 [facility] Comment on above: Result Comment: These results [...] By: #### C MPX, CBCWD, PLCON #### [address] [place] [address] Bariatric Coordinator: Kemal Waterman MD Glucose [Mass/Vol] 108 mg/dL High 74-99 [facility] Comment on above: Performed By: #### C MPX, CBCWD, PLCON #### [address] [place] [address] Bariatric Coordinator: Kemal Waterman MD Potassium [Moles/Vol] 3.7 mmol/L Normal 3.5-5.0 [facility] Comment on above: Performed By: #### C MPX, CBCWD, PLCON #### [address] [place] [address] Bariatric Coordinator: Kemal Waterman MD Protein [Mass/Vol] 5.8 g/dL Low 6.4-8.3 [facility] Comment on above: Performed By: #### C MPX, CBCWD, PLCON #### [address] [address] Bariatric Coordinator: eKmal Waterman MD Sodium [Moles/Vol] 132 mmol/L Normal 132-146 [facility] Comment on above: Performed By: #### C MPX, CBCWD, PLCON #### [address] [place] [address] Bariatric Coordinator: Kemal Waterman MD Urea nitrogen [Mass/Vol] 13 mg/dL Normal 6-20 [facility] Comment on above: Performed By: #### C MPX, CBCWD, PLCON #### [address] [place] [address] Bariatric Coordinator: Kemal Waterman MD Comprehensive Metabolic Pane l w/ Reflex to MGon 07-30-2023 Albumin [Mass/Vol] 3.0 g/dL Low 3.5 - 5.2 g/dL [facility] ALP [Catalytic activity/Vol] 127 U/L 40 - 129 U/L [facility] ALT [Catalytic activity/Vol] 26 U/L 0 - 40 U/L [facility] Anion gap [Moles/Vol] 10 mmol/L 7 - 16 mmol/L [facility] AST [Catalytic activity/Vol] 78 U/L High 0 - 39 U/L [facility] Bilirubin [Mass/Vol] 2.7 mg/dL High 0.0 - 1 .2 mg/dL [facility] Calcium [Mass/Vol] 7.6 mg/dL Low 8.6 - 10. 2 mg/dL [facility] Chloride [Moles/Vol] 99 mmol/L 98 - 10 7 mmol/L [facility] CO2 [Moles/Vol] 23 mmol/L 22 - 29 mmol/L [facility] Creatinine [Mass/Vol] 0.8 mg/dL 0.70 - 1.20 mg/dL [facility] GFR/1.73 sq M.predicted MDRD (S/P/Bld) [Vol rate/Area] - PINF [facility] Comment on above: These results are [...] 108 mg/dL High 74 - 99 mg/dL [facility] Interpretation and review of laboratory results Abnormal [facility] Potassium [Moles/Vol] 3.7 mmol/L 3.5 - 5.0 mmol/L [facility] Protein [Mass/Vol] 5.8 g/dL Low 6.4 - 8.3 g/dL [facility] Sodium [Moles/Vol] 132 mmol/L 132 - 146 mmol/L [facility] Urea nitrogen [Mass/Vol] 13 mg/dL 6 - 20 mg/dL [facility] Platelet Confirmationon 07-17 Platelet Confirmation CONFIRMED Normal [facility] Comment on above: Performed By: #### C MPX, CBCWD, PLCON #### [facility] [address] [place] [address] Bariatric Coordinator: Kemal Waterman MD Platelet Confirmation CONFIRMED [facility] Ammoniaon 07-29-2023 Ammonia (P) [Moles/Vol] 71 umol/L High 16.0-60.0 [facility] Comment on above: Performed By: #### C MPX, CBCWD, PLCON #### [facility] [address] [place] [id number] Bariatric Coordinator: Kemal Waterman MD Ammonia (P) [Moles/Vol] 71 umol/L High 16.0 - 60.0 umol/L [facility] Interpretation and review of laboratory results Abnormal [facility] CBC with Auto Differentialon 07-29-2023 Basophils (Bld) [#/Vol] 0.00 10*3/uL [facility] Basophils/100 WBC (Bld) 0 % 0.0 - 2.0 % [facility] Eosinophils (Bld) [#/Vol] 0.06 10*3/uL [facility] Eosinophils/100 WBC (Bld) 1 % 0 - 6 % [facility] Erythrocyte distribution width (RBC) [Ratio] 20.4 % High 11.5 - 15.0 % [facility] Hematocrit (Bld) [Volume fraction] 31.2 % Low 37.0 - 54.0 % [facility] Hemoglobin (Bld) [Mass/Vol] 10.2 g/dL Low 12.5 - 16.5 g/dL [facility] Interpretation and review of laboratory results Abnormal [facility] Lymphocytes/100 WBC (Bld) 1 % Low 20.0 - 42.0 % [facility] Lymphocytes/100 WBC (Bld) 0.06 % Low [facility] MCH (RBC) [Entitic mass] 32.0 pg 26.0 - 35.0 pg [facility] MCHC (RBC) [Mass/Vol] 32.7 g/dL 32.0 - 34.5 g/dL [facility] MCV (RBC) [Entitic vol] 97.8 fL 80.0 - 99.9 fL [facility] Monocytes/100 WBC (Bld) 7 % 2.0 - 12.0 % [facility] Monocytes/100 WBC (Bld) 0.51 % [facility] Neutrophils/100 WBC (Bld) 91 % High 43.0 - 80.0 % [facility] Platelet mean volume (Bld) [Entitic vol] 9.9 fL 7.0 - 12.0 fL [facility] Platelets (Bld) [#/Vol] 46 10*3/uL Low [facility] RBC (Bld) [#/Vol] 3.19 10*6/uL Low 3.80 - 5.8 0 m/uL [facility] RBC (Bld) [#/Vol] 2+ ANISOCYTOSIS [facility] RBC (Bld) [#/Vol] 1+ OVALOCYTES [facility] RBC (Bld) [#/Vol] 1+ POIKILOCYTOSIS [facility] RBC (Bld) [#/Vol] 1+ TARGET CELLS [facility] RBC (Bld) [#/Vol] 1+ TEARDROPS [facility] Segmented neutrophils/100 WBC (Bld) 6.67 % [facility] WBC other (Bld) [#/Vol] 7.3 [facility] CBC with Diffon 07-29-2023 Abs. Basophil 0.00 k/uL Normal 0.00-0.20 [facility] Comment on above: Performed By: #### C MPX, CBCWD, PLCON #### [address] [address] Bariatric Coordinator: Kemal Waterman MD Abs.Neutrophil (Seg) 6.67 k/uL Normal 1.80-7.30 [facility] Comment on above: Performed By: #### C MPX, CBCWD, PLCON #### [address] [address] Bariatric Coordinator: Kemal Waterman MD Basophils/100 WBC (Bld) 0 % Normal 0.0-2.0 [facility] Comment on above: Performed By: #### C MPX, CBCWD, PLCON #### [address] [place] [address] Bariatric Coordinator: Kemal Waterman MD Eosinophils (Bld) [#/Vol] 0.06 10*3/uL Normal 0.05-0.50 [facility] Comment on above: Performed By: #### C MPX, CBCWD, PLCON #### [place] [address] Bariatric Coordinator: Kemal Waterman MD Eosinophils/100 WBC (Bld) 1 % Normal 0-6 [facility] Comment on above: Performed By: #### C MPX, CBCWD, PLCON #### [address] [place] [address] Bariatric Coordinator: Kemal Waterman MD Lymphocytes (Bld) [#/Vol] 0.06 10*3/uL Low 1.50-4.00 [facility] Comment on above: Performed By: #### C MPX, CBCWD, PLCON #### [address] [place] [address] Bariatric Coordinator: Kemal Waterman MD Lymphocytes/100 WBC (Bld) 1 % Low 20.0-42.0 [facility] Comment on above: Performed By: #### C MPX, CBCWD, PLCON #### [address] [place] [address] Bariatric Coordinator: Kemal Waterman MD Monocytes (Bld) [#/Vol] 0.51 10*3/uL Normal 0.10-0.95 [facility] Comment on above: Performed By: #### C MPX, CBCWD, PLCON #### [facility] [address] [place] [address] Bariatric Coordinator: Kemal Waterman MD Monocytes/100 WBC (Bld) 7 % Normal 2.0-12.0 [facility] Comment on above: Performed By: #### C MPX, CBCWD, PLCON #### [address] [place] [address] Bariatric Coordinator: Kemal Waterman MD Neutrophil (Seg) 91 % High 43.0-80.0 [facility] Comment on above: Performed By: #### C MPX, CBCWD, PLCON #### [address] [place] [address] Bariatric Coordinator: Kemal Waterman MD RBC morphology finding Nom (Bld) 2+ Normal [facility] Comment on above: Result Comment: ANIS OCYTOSIS 1+ OVALOCYTES 1+ POIKILOCYTOSIS 1+ TARGET CELLS 1+ TEARDROPS Performed By: #### C MPX, CBCWD, PLCON #### [address] [place] [address] Bariatric Coordinator: Kemal Waterman MD Erythrocyte distribution width (RBC) [Ratio] 20.4 % High 11.5-15.0 [facility] Comment on above: Performed By: #### C MPX, CBCWD, PLCON #### [address] [place] [address] Bariatric Coordinator: Kemal Waterman MD Hematocrit (Bld) [Volume fraction] 31.2 % Low 37.0-54.0 [facility] Comment on above: Performed By: #### C MPX, CBCWD, PLCON #### [address] [place] [id number] Bariatric Coordinator: Kemal Waterman MD Hemoglobin (Bld) [Mass/Vol] 10.2 g/dL Low 12.5-16.5 [facility] Comment on above: Performed By: #### C MPX, CBCWD, PLCON #### [address] [place] [address] Bariatric Coordinator: Kemal Waterman MD MCH (RBC) [Entitic mass] 32.0 pg Normal 26.0-35.0 [facility] Comment on above: Performed By: #### C MPX, CBCWD, PLCON #### [address] [address] Bariatric Coordinator: Kemal Waterman MD MCHC (RBC) [Mass/Vol] 32.7 g/dL Normal 32.0-34.5 [facility] Comment on above: Performed By: #### C MPX, CBCWD, PLCON #### [address] [address] Bariatric Coordinator: Kemal Waterman MD MCV (RBC) [Entitic vol] 97.8 fL Normal 80.0-99.9 [facility] Comment on above: Performed By: #### C MPX, CBCWD, PLCON #### [address] [place] [address] Bariatric Coordinator: Kemal Waterman MD Platelet mean volume (Bld) [Entitic vol] 9.9 fL Normal 7.0-12.0 [facility] Comment on above: Performed By: #### C MPX, CBCWD, PLCON #### [address] [place] [address] Bariatric Coordinator: Kemal Waterman MD Platelets (Bld) [#/Vol] 46 10*3/uL Low 130-450 [facility] Comment on above: Performed By: #### C MPX, CBCWD, PLCON #### [address] [place] [address] Bariatric Coordinator: Kemal Waterman MD RBC (Bld) [#/Vol] 3.19 10*6/uL Low 3.80-5.80 [facility] Comment on above: Performed By: #### C MPX, CBCWD, PLCON #### [address] [place] [address] Bariatric Coordinator: Kemal Waterman MD WBC (Bld) [#/Vol] 7.3 10*3/uL Normal 4.5-11.5 [facility] Comment on above: Performed By: #### C MPX, CBCWD, PLCON #### [address] [place] [address] Bariatric Coordinator: Kemal Waterman MD Comp Metabolic Pr/rfx MGon 0 - Albumin [Mass/Vol] 3.1 g/dL Low 3.5-5.2 [facility] Comment on above: Performed By: #### C MPX, CBCWD, PLCON #### [address] [place] [address] Bariatric Coordinator: Kemal Waterman MD Alkaline Phos 144 U/L High 40-129 [facility] Comment on above: Performed By: #### C MPX, CBCWD, PLCON #### [address] [place] [address] Bariatric Coordinator: Kemal Waterman MD ALT [Catalytic activity/Vol] 23 U/L Normal 0-40 [facility] Comment on above: Performed By: #### C MPX, CBCWD, PLCON #### [address] [place] [address] Bariatric Coordinator: Kemal Waterman MD Anion gap [Moles/Vol] 11 mmol/L Normal 7-16 [facility] Comment on above: Performed By: #### C MPX, CBCWD, PLCON #### [address] [place] [address] Bariatric Coordinator: Kemal Waterman MD AST [Catalytic activity/Vol] 54 U/L High 0-39 [facility] Comment on above: Performed By: #### C MPX, CBCWD, PLCON #### [address] [place] [address] Bariatric Coordinator: Kemal Waterman MD Bilirubin [Mass/Vol] 3.3 mg/dL High 0.0-1.2 [facility] Comment on above: Performed By: #### C MPX, CBCWD, PLCON #### [address] [place] [address] Bariatric Coordinator: Kemal Waterman MD Calcium [Mass/Vol] 8.1 mg/dL Low 8.6-10.2 [facility] Comment on above: Performed By: #### C MPX, CBCWD, PLCON #### [address] [place] [address] Bariatric Coordinator: Kemal Waterman MD Chloride [Moles/Vol] 103 mmol/L Normal 98-107 [facility] Comment on above: Performed By: #### C MPX, CBCWD, PLCON #### [address] [place] [address] Bariatric Coordinator: Kemal Waterman MD CO2 [Moles/Vol] 23 mmol/L Normal 22-29 [facility] Comment on above: Performed By: #### C MPX, CBCWD, PLCON #### [address] [place] [address] Bariatric Coordinator: Kemal Waterman MD Creatinine [Mass/Vol] 0.9 mg/dL Normal 0.70-1.20 [facility] Comment on above: Performed By: #### C MPX, CBCWD, PLCON #### [address] [place] [address] Bariatric Coordinator: Kemal Waterman MD GFR/1.73 sq M.predicted among non-blacks MDRD (S/P/Bld) [Vol rate/Area] mL/min/{1.73_m2} Normal >60 [facility] Comment on above: Result Comment: These results [...] By: #### C MPX, CBCWD, PLCON #### [address] [place] [address] Bariatric Coordinator: Kemal Waterman MD Glucose [Mass/Vol] 86 mg/dL Normal 74-99 [facility] Comment on above: Performed By: #### C MPX, CBCWD, PLCON #### [address] [place] [address] Bariatric Coordinator: Kemal Waterman MD Potassium [Moles/Vol] 4.2 mmol/L Normal 3.5-5.0 [facility] Comment on above: Performed By: #### C MPX, CBCWD, PLCON #### [address] [address] Bariatric Coordinator: Kemal Waterman MD Protein [Mass/Vol] 6.0 g/dL Low 6.4-8.3 [facility] Comment on above: Performed By: #### C MPX, CBCWD, PLCON #### [address] [place], [place] [id number] Bariatric Coordinator: Kemal Waterman MD Sodium [Moles/Vol] 137 mmol/L Normal 132-146 [facility] Comment on above: Performed By: #### C MPX, CBCWD, PLCON #### [address] [id number] Bariatric Coordinator: Kemal Waterman MD Urea nitrogen [Mass/Vol] 13 mg/dL Normal 6-20 [facility] Comment on above: Performed By: #### C MPX, CBCWD, PLCON #### [address] [place] [address] Bariatric Coordinator: Kemal Waterman MD Comprehensive Metabolic Pane l w/ Reflex to MGon 07-29-2023 Albumin [Mass/Vol] 3.1 g/dL Low 3.5 - 5.2 g/dL [facility] ALP [Catalytic activity/Vol] 144 U/L High 40 - 129 U/L [facility] ALT [Catalytic activity/Vol] 23 U/L 0 - 40 U/L [facility] Anion gap [Moles/Vol] 11 mmol/L 7 - 16 mmol/L [facility] AST [Catalytic activity/Vol] 54 U/L High 0 - 39 U/L [facility] Bilirubin [Mass/Vol] 3.3 mg/dL High 0.0 - 1 .2 mg/dL [facility] Calcium [Mass/Vol] 8.1 mg/dL Low 8.6 - 10. 2 mg/dL [facility] Chloride [Moles/Vol] 103 mmol/L 98 - 10 7 mmol/L [facility] CO2 [Moles/Vol] 23 mmol/L 22 - 29 mmol/L [facility] Creatinine [Mass/Vol] 0.9 mg/dL 0.70 - 1.20 mg/dL [facility] GFR/1.73 sq M.predicted MDRD (S/P/Bld) [Vol rate/Area] - PINF [facility] Comment on above: These results are [...] [Mass/Vol] 86 mg/dL 74 - 99 mg/dL [facility] Interpretation and review of laboratory results Abnormal [facility] Potassium [Moles/Vol] 4.2 mmol/L 3.5 - 5.0 mmol/L [facility] Protein [Mass/Vol] 6.0 g/dL Low 6.4 - 8.3 g/dL [facility] Sodium [Moles/Vol] 137 mmol/L 132 - 146 mmol/L [facility] Urea nitrogen [Mass/Vol] 13 mg/dL 6 - 20 mg/dL [facility] Platelet Confirmationon 07-17 Platelet Confirmation CONFIRMED Normal [facility] Comment on above: Performed By: #### C MPX, CBCWD, PLCON #### [place] [address] Bariatric Coordinator: Kemal Waterman MD Platelet Confirmation CONFIRMED [facility] Resp Viral Panelon Adenovirus Not detected Normal [facility] Comment on above: Performed By: #### A MON #### [place] [address] Bariatric Coordinator: Kemal Waterman MD [facility].parapertussis Not detected Normal [facility] Comment on above: Performed By: #### A MON #### [address] [place] [address] Bariatric Coordinator: Kemal Waterman MD Bordetella pertussis Not detected Normal [facility] Comment on above: Performed By: #### A MON #### [address] [place] [address] Bariatric Coordinator: Kemal Waterman MD Chlamyd.pneumoniae Not detected Normal [facility] Comment on above: Performed By: #### A MON #### [address] [place] [address] Bariatric Coordinator: Kemal Waterman MD Coronavirus [id number] Not detected [facility] Comment on above: Performed By: #### A MON #### [address] [place] [address] Bariatric Coordinator: Kemal Waterman MD Coronavirus [id number] Not detected Normal [facility] Comment on above: Performed By: #### A MON #### [address] [place] [address] Bariatric Coordinator: Kemal Waterman MD Coronavirus [id number] Not detected Normal [facility] Comment on above: Performed By: #### A MON #### [address] [place] [address] Bariatric Coordinator: Kemal Waterman MD Coronavirus [id number] Not detected Normal [facility] Comment on above: Performed By: #### A MON #### [address] [place] [address] Bariatric Coordinator: Kemal Waterman MD Human Metapneumo Not detected Normal [facility] Comment on above: Performed By: #### A MON #### [address] [place] [address] Bariatric Coordinator: Kemal Waterman MD Influenza A Not detected Normal [facility] Comment on above: Performed By: #### A MON #### [address] [place] [address] Bariatric Coordinator: Kemal Waterman MD Influenza B Not detected Normal [facility] Comment on above: Performed By: #### A MON #### [address] [place] [address] Bariatric Coordinator: Kemal Waterman MD Mycoplas.pneumoniae Not detected Normal [facility] Comment on above: Result Comment: Perf ormed by multiplexed nucleic acid assay. Performed By: #### A MON #### [address] [place] [address] Bariatric Coordinator: Kemal Waterman MD Parainfluenza 1 Not detected Normal [facility] Comment on above: Performed By: #### A MON #### [address] [place] [address] Bariatric Coordinator: Kemal Waterman MD Parainfluenza 2 Not detected Normal [facility] Comment on above: Performed By: #### A MON #### [address] [place] [address] Bariatric Coordinator: Kemal Waterman MD Parainfluenza 3 Not detected Normal [facility] Comment on above: Performed By: #### A MON #### [address] [place] [address] Bariatric Coordinator: Kemal Waterman MD Parainfluenza 4 Not detected Normal [facility] Comment on above: Performed By: #### A MON #### [address] [place] [address] Bariatric Coordinator: Kemal Waterman MD Resp Syncytial Virus Not detected Normal [facility] Comment on above: Performed By: #### A MON #### [address] [address] Bariatric Coordinator: Kemal Waterman MD Rhino/Enterovirus Not detected Normal [facility] Comment on above: Performed By: #### A MON #### [address] [place] [address] Bariatric Coordinator: Kemal Waterman MD SARS-CoV-2 (COVID-19) RNA FOX+probe Ql (Unsp spec) Detected Abnormal [facility] Comment on above: Performed By: #### A MON #### [address] [address] Bariatric Coordinator: Kemal Waterman MD Source: .NASOPHARYNGEAL SWAB Normal [facility] Comment on above: Performed By: #### A MON #### [address] [place] [address] Bariatric Coordinator: Kemal Wateramn MD Respiratory Panel, Molecular , with COVID-19 (Restricted: peds pts or suitable admitted adults)on 07-29-2023 Adenovirus DNA FOX+non-probe Ql (Nph) Not detected Not Detected [facility] B. parapertussis [id number] DNA FOX+non-probe Ql (Nph) Not detected Not Detected [facility] B. pertussis DNA FOX+probe Ql (Unsp spec) Not detected Not Detected [facility] C. pneumoniae DNA FOX+non-probe Ql (Nph) Not detected Not Detected [facility] FLUAV RNA FOX+non-probe Ql (Nph) Not detected Not Detected [facility] FLUBV RNA FOX+non-probe Ql (Nph) Not detected Not Detected [facility] HCoV 229E RNA FOX+non-probe Ql (Nph) Not detected Not Detected [facility] HCoV HKU1 RNA FOX+non-probe Ql (Nph) Not detected Not Detected [facility] HCoV NL63 RNA FOX+non-probe Ql (Nph) Not detected Not Detected [facility] HCoV OC43 RNA FOX+non-probe Ql (Nph) Not detected Not Detected [facility] hMPV RNA FOX+non-probe Ql (Nph) Not detected Not Detected [facility] Interpretation and review of laboratory results Abnormal [facility] M. pneumoniae DNA FOX+non-probe Ql (Nph) Not detected Not Detected [facility] Comment on above: Performed by [employer]ed nucleic acid assay. Parainfluenza virus 1 RNA FOX+non-probe Ql (Nph) Not detected Not Detected [facility] Parainfluenza virus 2 RNA FOX+non-probe Ql (Nph) Not detected Not Detected [facility] Parainfluenza virus 3 RNA FOX+non-probe Ql (Nph) Not detected Not Detected [facility] Parainfluenza virus 4 RNA FOX+non-probe Ql (Nph) Not detected Not Detected [facility] Rhinovirus+Enteroviru s RNA FOX+non-probe Ql (Nph) Not detected Not Detected [facility] RSV RNA FOX+non-probe Ql (Nph) Not detected Not Detected [facility] SARS-CoV-2 (COVID-19) RNA FOX+non-probe Ql (Nph) Detected Abnormal Not Detected [facility] Specimen Description .NASOPHARYNGEAL SWAB [facility] Ammoniaon 07-28-2023 Ammonia (P) [Moles/Vol] 148 umol/L High 16.0-60.0 [facility] Comment on above: Performed By: #### C MPX, CBCWD, PLCON #### [facility] [address] [place] [address] Bariatric Coordinator: Kemal Waterman MD Ammonia (P) [Moles/Vol] 148 umol/L High 16.0 - 60.0 umol/L [facility] Interpretation and review of laboratory results Abnormal [facility] CBC with Auto Differentialon 07-28-2023 Basophils (Bld) [#/Vol] 0.04 10*3/uL [facility] Basophils/100 WBC (Bld) 1 % 0.0 - 2.0 % [facility] Eosinophils (Bld) [#/Vol] 0.23 10*3/uL [facility] Eosinophils/100 WBC (Bld) 5 % 0 - 6 % [facility] Erythrocyte distribution width (RBC) [Ratio] 21.0 % High 11.5 - 15.0 % [facility] Hematocrit (Bld) [Volume fraction] 32.5 % Low 37.0 - 54.0 % [facility] Hemoglobin (Bld) [Mass/Vol] 10.4 g/dL Low 12.5 - 16.5 g/dL [facility] Immature granulocytes (Bld) [#/Vol] [facility] Immature granulocytes/100 WBC (Bld) 0 % 0.0 - 5.0 % [facility] Interpretation and review of laboratory results Abnormal [facility] Lymphocytes/100 WBC (Bld) 26 % 20.0 - 42.0 % [facility] Lymphocytes/100 WBC (Bld) 1.25 % Low [facility] MCH (RBC) [Entitic mass] 31.7 pg 26.0 - 35.0 pg [facility] MCHC (RBC) [Mass/Vol] 32.0 g/dL 32.0 - 34.5 g/dL [facility] MCV (RBC) [Entitic vol] 99.1 fL 80.0 - 99.9 fL [facility] Monocytes/100 WBC (Bld) 13 % High 2.0 - 12.0 % [facility] Monocytes/100 WBC (Bld) 0.61 % [facility] Neutrophils/100 WBC (Bld) 56 % 43.0 - 80.0 % [facility] Platelet mean volume (Bld) [Entitic vol] 11.6 fL 7.0 - 12.0 fL [facility] Platelets (Bld) [#/Vol] 60 10*3/uL Low [facility] RBC (Bld) [#/Vol] 3.28 10*6/uL Low 3.80 - 5.8 0 m/uL [facility] Segmented neutrophils/100 WBC (Bld) 2.72 % [facility] WBC other (Bld) [#/Vol] 4.9 [facility] CBC with Diffon 07-28-2023 Abs. Basophil 0.04 k/uL Normal 0.00-0.20 [facility] Comment on above: Performed By: #### C MPX, CBCWD, PLCON #### [place] [address] Bariatric Coordinator: Kemal Waterman MD Abs.Imm.Granulocyte <0.03 Normal 0.00-0.58 [facility] Comment on above: Performed By: #### C MPX, CBCWD, PLCON #### [place] [address] Bariatric Coordinator: Kemal Waterman MD Abs.Neutrophil (Seg) 2.72 k/uL Normal 1.80-7.30 [facility] Comment on above: Performed By: #### C MPX, CBCWD, PLCON #### [place] [address] Bariatric Coordinator: Kemal Waterman MD Basophils/100 WBC (Bld) 1 % Normal 0.0-2.0 [facility] Comment on above: Performed By: #### C MPX, CBCWD, PLCON #### [place] [id number] Bariatric Coordinator: Kemal Waterman MD Eosinophils (Bld) [#/Vol] 0.23 10*3/uL Normal 0.05-0.50 [facility] Comment on above: Performed By: #### C MPX, CBCWD, PLCON #### [place] [address] Bariatric Coordinator: Kemal Waterman MD Eosinophils/100 WBC (Bld) 5 % Normal 0-6 [facility] Comment on above: Performed By: #### C MPX, CBCWD, PLCON #### [place] [address] Bariatric Coordinator: Kemal Waterman MD Immature granulocytes/100 WBC (Bld) 0 % Normal 0.0-5.0 [facility] Comment on above: Performed By: #### C MPX, CBCWD, PLCON #### [place] [address] Bariatric Coordinator: Kemal Waterman MD Lymphocytes (Bld) [#/Vol] 1.25 10*3/uL Low 1.50-4.00 [facility] Comment on above: Performed By: #### C MPX, CBCWD, PLCON #### [place] [address] Bariatric Coordinator: Kemal Waterman MD Lymphocytes/100 WBC (Bld) 26 % Normal 20.0-42.0 [facility] Comment on above: Performed By: #### C MPX, CBCWD, PLCON #### [place] [address] Bariatric Coordinator: Kemal Waterman MD Monocytes (Bld) [#/Vol] 0.61 10*3/uL Normal 0.10-0.95 [facility] Comment on above: Performed By: #### C MPX, CBCWD, PLCON #### [address] [place] [address] Bariatric Coordinator: Kemal Waterman MD Monocytes/100 WBC (Bld) 13 % High 2.0-12.0 [facility] Comment on above: Performed By: #### C MPX, CBCWD, PLCON #### [address] [place] [address] Bariatric Coordinator: Kemal Waterman MD Neutrophil (Seg) 56 % Normal 43.0-80.0 [facility] Comment on above: Performed By: #### C MPX, CBCWD, PLCON #### [address] [place] [address] Bariatric Coordinator: Kemal Waterman MD Erythrocyte distribution width (RBC) [Ratio] 21.0 % High 11.5-15.0 [facility] Comment on above: Performed By: #### C MPX, CBCWD, PLCON #### [address] [place] [address] Bariatric Coordinator: Kemal Waterman MD Hematocrit (Bld) [Volume fraction] 32.5 % Low 37.0-54.0 [facility] Comment on above: Performed By: #### C MPX, CBCWD, PLCON #### [address] [place] [address] Bariatric Coordinator: Kemal Waterman MD Hemoglobin (Bld) [Mass/Vol] 10.4 g/dL Low 12.5-16.5 [facility] Comment on above: Performed By: #### C MPX, CBCWD, PLCON #### [address] [place] [id number] Bariatric Coordinator: Kemal Waterman MD MCH (RBC) [Entitic mass] 31.7 pg Normal 26.0-35.0 [facility] Comment on above: Performed By: #### C MPX, CBCWD, PLCON #### [address] [place] [address] Bariatric Coordinator: Kemal Waterman MD MCHC (RBC) [Mass/Vol] 32.0 g/dL Normal 32.0-34.5 [facility] Comment on above: Performed By: #### C MPX, CBCWD, PLCON #### [address] [place] [address] Bariatric Coordinator: Kemal Waterman MD MCV (RBC) [Entitic vol] 99.1 fL Normal 80.0-99.9 [facility] Comment on above: Performed By: #### C MPX, CBCWD, PLCON #### [address] [place] [address] Bariatric Coordinator: Kemal Waterman MD Platelet mean volume (Bld) [Entitic vol] 11.6 fL Normal 7.0-12.0 [facility] Comment on above: Performed By: #### C MPX, CBCWD, PLCON #### [address] [place] [address] Bariatric Coordinator: Kemal Waterman MD Platelets (Bld) [#/Vol] 60 10*3/uL Low 130-450 [facility] Comment on above: Performed By: #### C MPX, CBCWD, PLCON #### [address] [place] [address] Bariatric Coordinator: Kemal Waterman MD RBC (Bld) [#/Vol] 3.28 10*6/uL Low 3.80-5.80 [facility] Comment on above: Performed By: #### C MPX, CBCWD, PLCON #### [address] [place] [address] Bariatric Coordinator: Kemal Waterman MD WBC (Bld) [#/Vol] 4.9 10*3/uL Normal 4.5-11.5 [facility] Comment on above: Performed By: #### C MPX, CBCWD, PLCON #### [address] [place] [address] Bariatric Coordinator: Kemal Waterman MD Comp Metabolic Pr/rfx MGon 0 - Albumin [Mass/Vol] 3.0 g/dL Low 3.5-5.2 [facility] Comment on above: Performed By: #### C MPX, CBCWD, PLCON #### [address] [place] [address] Bariatric Coordinator: Kemal Waterman MD Alkaline Phos 218 U/L High 40-129 [facility] Comment on above: Performed By: #### C MPX, CBCWD, PLCON #### [address] [place] [address] Bariatric Coordinator: Kemal Waterman MD ALT [Catalytic activity/Vol] 21 U/L Normal 0-40 [facility] Comment on above: Performed By: #### C MPX, CBCWD, PLCON #### [address] [place] [address] Bariatric Coordinator: Kemal Waterman MD Anion gap [Moles/Vol] 10 mmol/L Normal 7-16 [facility] Comment on above: Performed By: #### C MPX, CBCWD, PLCON #### [address] [place] [address] Bariatric Coordinator: Kemal Waterman MD AST [Catalytic activity/Vol] 51 U/L High 0-39 [facility] Comment on above: Performed By: #### C MPX, CBCWD, PLCON #### [address] [place] [address] Bariatric Coordinator: Kemal Waterman MD Bilirubin [Mass/Vol] 2.1 mg/dL High 0.0-1.2 [facility] Comment on above: Performed By: #### C MPX, CBCWD, PLCON #### [address] [place] [address] Bariatric Coordinator: Kemal Waterman MD Calcium [Mass/Vol] 7.6 mg/dL Low 8.6-10.2 [facility] Comment on above: Performed By: #### C MPX, CBCWD, PLCON #### [address] [place] [address] Bariatric Coordinator: Kemal Waterman MD Chloride [Moles/Vol] 102 mmol/L Normal 98-107 [facility] Comment on above: Performed By: #### C MPX, CBCWD, PLCON #### [address] [place] [address] Bariatric Coordinator: Kemal Waterman MD CO2 [Moles/Vol] 24 mmol/L Normal 22-29 [facility] Comment on above: Performed By: #### C MPX, CBCWD, PLCON #### [address] [place] [address] Bariatric Coordinator: Kemal Waterman MD Creatinine [Mass/Vol] 0.8 mg/dL Normal 0.70-1.20 [facility] Comment on above: Performed By: #### C MPX, CBCWD, PLCON #### [address] [place] [address] Bariatric Coordinator: Kemal Waterman MD GFR/1.73 sq M.predicted among non-blacks MDRD (S/P/Bld) [Vol rate/Area] mL/min/{1.73_m2} Normal >60 [facility] Comment on above: Result Comment: These results [...] By: #### C MPX, CBCWD, PLCON #### [place] [address] Bariatric Coordinator: Kemal Waterman MD Glucose [Mass/Vol] 90 mg/dL Normal 74-99 [facility] Comment on above: Performed By: #### C MPX, CBCWD, PLCON #### [address] [place] [address] Bariatric Coordinator: Kemal Waterman MD Potassium [Moles/Vol] 4.2 mmol/L Normal 3.5-5.0 [facility] Comment on above: Performed By: #### C MPX, CBCWD, PLCON #### [address] [place] [address] Bariatric Coordinator: Kemal Waterman MD Protein [Mass/Vol] 5.7 g/dL Low 6.4-8.3 [facility] Comment on above: Performed By: #### C MPX, CBCWD, PLCON #### [address] [place] [address] Bariatric Coordinator: Kemal Waterman MD Sodium [Moles/Vol] 136 mmol/L Normal 132-146 [facility] Comment on above: Performed By: #### C MPX, CBCWD, PLCON #### [facility] [address] [place], [place] [id number] Bariatric Coordinator: Kemal Waterman MD Urea nitrogen [Mass/Vol] 10 mg/dL Normal 6-20 [facility] Comment on above: Performed By: #### C MPX, CBCWD, PLCON #### [facility] [address] [place] [address] Bariatric Coordinator: Kemal Waterman MD Comprehensive Metabolic Pane l w/ Reflex to MGon 07-28-2023 Albumin [Mass/Vol] 3.0 g/dL Low 3.5 - 5.2 g/dL [facility] ALP [Catalytic activity/Vol] 218 U/L High 40 - 129 U/L [facility] ALT [Catalytic activity/Vol] 21 U/L 0 - 40 U/L [facility] Anion gap [Moles/Vol] 10 mmol/L 7 - 16 mmol/L [facility] AST [Catalytic activity/Vol] 51 U/L High 0 - 39 U/L [facility] Bilirubin [Mass/Vol] 2.1 mg/dL High 0.0 - 1 .2 mg/dL [facility] Calcium [Mass/Vol] 7.6 mg/dL Low 8.6 - 10. 2 mg/dL [facility] Chloride [Moles/Vol] 102 mmol/L 98 - 10 7 mmol/L [facility] CO2 [Moles/Vol] 24 mmol/L 22 - 29 mmol/L [facility] Creatinine [Mass/Vol] 0.8 mg/dL 0.70 - 1.20 mg/dL [facility] GFR/1.73 sq M.predicted MDRD (S/P/Bld) [Vol rate/Area] - PINF [facility] Comment on above: These results are [...] [Mass/Vol] 90 mg/dL 74 - 99 mg/dL [facility] Interpretation and review of laboratory results Abnormal [facility] Potassium [Moles/Vol] 4.2 mmol/L 3.5 - 5.0 mmol/L [facility] Protein [Mass/Vol] 5.7 g/dL Low 6.4 - 8.3 g/dL [facility] Sodium [Moles/Vol] 136 mmol/L 132 - 146 mmol/L [facility] Urea nitrogen [Mass/Vol] 10 mg/dL 6 - 20 mg/dL [facility] Platelet Confirmationon 07-17 Platelet Confirmation CONFIRMED Normal [facility] Comment on above: Performed By: #### C MPX, CBCWD, PLCON #### [address] [id number] Bariatric Coordinator: Kemal Waterman MD Platelet Confirmation CONFIRMED [facility] TYPE AND SCREENon 07-28-2023 ABO and Rh group Nom (Bld) Blood group O Rh(D) positive [facility] Arm Band Number [id number] [facility] Blood Bank Sample Expiration 07/30/2023,2359 [facility] Blood group antibodies identified Nom Negative [facility] Type + Screenon 07-28-2023 Type + Screen Sample Expiration 07/30/2023,2359 Arm Band Number [id number] ABO/Rh(D) O POSITIVE Antibody Screen NEGATIVE Normal [facility] Comment on above: Performed By: #### C MPX, CBCWD, PLCON #### [address] [address] Bariatric Coordinator: Kemal Waterman MD CBC with Auto Differentialon 07-27-2023 Basophils (Bld) [#/Vol] 0.04 10*3/uL [facility] Basophils/100 WBC (Bld) 1 % 0.0 - 2.0 % [facility] Eosinophils (Bld) [#/Vol] 0.23 10*3/uL [facility] Eosinophils/100 WBC (Bld) 5 % 0 - 6 % [facility] Erythrocyte distribution width (RBC) [Ratio] 20.5 % High 11.5 - 15.0 % [facility] Hematocrit (Bld) [Volume fraction] 32.1 % Low 37.0 - 54.0 % [facility] Hemoglobin (Bld) [Mass/Vol] 10.3 g/dL Low 12.5 - 16.5 g/dL [facility] Immature granulocytes (Bld) [#/Vol] [facility] Immature granulocytes/100 WBC (Bld) 0 % 0.0 - 5.0 % [facility] Interpretation and review of laboratory results Abnormal [facility] Lymphocytes/100 WBC (Bld) 25 % 20.0 - 42.0 % [facility] Lymphocytes/100 WBC (Bld) 1.20 % Low [facility] MCH (RBC) [Entitic mass] 31.5 pg 26.0 - 35.[address] [facility] MCHC (RBC) [Mass/Vol] 32.1 g/dL 32.0 - 34.5 g/dL [facility] MCV (RBC) [Entitic vol] 98.2 fL 80.0 - 99.[address] [facility] Monocytes/100 WBC (Bld) 13 % High 2.0 - 12.0 % [facility] Monocytes/100 WBC (Bld) 0.62 % [facility] Neutrophils/100 WBC (Bld) 56 % 43.0 - 80.0 % [facility] Platelet mean volume (Bld) [Entitic vol] 10.1 fL 7.0 - 12.[address] [facility] Platelets (Bld) [#/Vol] 53 10*3/uL Low [facility] RBC (Bld) [#/Vol] 3.27 10*6/uL Low 3.80 - 5.8 0 m/uL [facility] RBC (Bld) [#/Vol] 3+ ANISOCYTOSIS [facility] RBC (Bld) [#/Vol] 1+ OVALOCYTES [facility] RBC (Bld) [#/Vol] 1+ POIKILOCYTOSIS [facility] RBC (Bld) [#/Vol] 1+ POLYCHROMASIA B ON [facility] RBC (Bld) [#/Vol] 1+ TARGET CELLS [facility] RBC (Bld) [#/Vol] 1+ TEARDROPS [facility] Segmented neutrophils/100 WBC (Bld) 2.62 % [facility] WBC other (Bld) [#/Vol] 4.7 [facility] CBC with Diffon 07-27-2023 RBC morphology finding Nom (Bld) 3+ Normal [facility] Comment on above: Result Comment: ANIS OCYTOSIS 1+ OVALOCYTES 1+ POIKILOCYTOSIS 1+ POLYCHROMASIA 1+ TARGET CELLS 1+ TEARDROPS Performed By: #### C MPX, CBCWD, PLCON #### [place] [address] Bariatric Coordinator: Kemal Waterman MD Abs. Basophil 0.04 k/uL Normal 0.00-0.20 [facility] Comment on above: Performed By: #### C MPX, CBCWD, PLCON #### [place] [address] Bariatric Coordinator: Kemal Waterman MD Abs.Imm.Granulocyte <0.03 Normal 0.00-0.58 [facility] Comment on above: Performed By: #### C MPX, CBCWD, PLCON #### [place] [address] Bariatric Coordinator: Kemal Waterman MD Abs.Neutrophil (Seg) 2.62 k/uL Normal 1.80-7.30 [facility] Comment on above: Performed By: #### C MPX, CBCWD, PLCON #### [address] [place] [address] Bariatric Coordinator: Kemal Waterman MD Basophils/100 WBC (Bld) 1 % Normal 0.0-2.0 [facility] Comment on above: Performed By: #### C MPX, CBCWD, PLCON #### [place] [address] Bariatric Coordinator: Kemal Waterman MD Eosinophils (Bld) [#/Vol] 0.23 10*3/uL Normal 0.05-0.50 [facility] Comment on above: Performed By: #### C MPX, CBCWD, PLCON #### [address] [place] [address] Bariatric Coordinator: Kemal Waterman MD Eosinophils/100 WBC (Bld) 5 % Normal 0-6 [facility] Comment on above: Performed By: #### C MPX, CBCWD, PLCON #### [place] [address] Bariatric Coordinator: Kemal Waterman MD Immature granulocytes/100 WBC (Bld) 0 % Normal 0.0-5.0 [facility] Comment on above: Performed By: #### C MPX, CBCWD, PLCON #### [place] [address] Bariatric Coordinator: Kemal Waterman MD Lymphocytes (Bld) [#/Vol] 1.20 10*3/uL Low 1.50-4.00 [facility] Comment on above: Performed By: #### C MPX, CBCWD, PLCON #### [address] [place] [address] Bariatric Coordinator: Kemal Waterman MD Lymphocytes/100 WBC (Bld) 25 % Normal 20.0-42.0 [facility] Comment on above: Performed By: #### C MPX, CBCWD, PLCON #### [place] [id number] Bariatric Coordinator: Kemal Waterman MD Monocytes (Bld) [#/Vol] 0.62 10*3/uL Normal 0.10-0.95 [facility] Comment on above: Performed By: #### C MPX, CBCWD, PLCON #### [place] [address] Bariatric Coordinator: Kemal Waterman MD Monocytes/100 WBC (Bld) 13 % High 2.0-12.0 [facility] Comment on above: Performed By: #### C MPX, CBCWD, PLCON #### [place] [address] Bariatric Coordinator: Kemal Waterman MD Neutrophil (Seg) 56 % Normal 43.0-80.0 [facility] Comment on above: Performed By: #### C MPX, CBCWD, PLCON #### [place] [address] Bariatric Coordinator: Kemal Waterman MD Erythrocyte distribution width (RBC) [Ratio] 20.5 % High 11.5-15.0 [facility] Comment on above: Performed By: #### C MPX, CBCWD, PLCON #### [place] [id number] Bariatric Coordinator: Kemal Waterman MD Hematocrit (Bld) [Volume fraction] 32.1 % Low 37.0-54.0 [facility] Comment on above: Performed By: #### C MPX, CBCWD, PLCON #### [address] [place] [address] Bariatric Coordinator: Kemal Waterman MD Hemoglobin (Bld) [Mass/Vol] 10.3 g/dL Low 12.5-16.5 [facility] Comment on above: Performed By: #### C MPX, CBCWD, PLCON #### [address] [place] [address] Bariatric Coordinator: Kemal Waterman MD MCH (RBC) [Entitic mass] 31.5 pg Normal 26.0-35.0 [facility] Comment on above: Performed By: #### C MPX, CBCWD, PLCON #### [address] [place] [address] Bariatric Coordinator: Kemal Waterman MD MCHC (RBC) [Mass/Vol] 32.1 g/dL Normal 32.0-34.5 [facility] Comment on above: Performed By: #### C MPX, CBCWD, PLCON #### [address] [place] [address] Bariatric Coordinator: Kemal Waterman MD MCV (RBC) [Entitic vol] 98.2 fL Normal 80.0-99.9 [facility] Comment on above: Performed By: #### C MPX, CBCWD, PLCON #### [address] [place] [address] Bariatric Coordinator: Kemal Waterman MD Platelet mean volume (Bld) [Entitic vol] 10.1 fL Normal 7.0-12.0 [facility] Comment on above: Performed By: #### C MPX, CBCWD, PLCON #### [address] [address] Bariatric Coordinator: Kemal Waterman MD Platelets (Bld) [#/Vol] 53 10*3/uL Low 130-450 [facility] Comment on above: Performed By: #### C MPX, CBCWD, PLCON #### [facility] [address] [place] [address] Bariatric Coordinator: Kemal Waterman MD RBC (Bld) [#/Vol] 3.27 10*6/uL Low 3.80-5.80 [facility] Comment on above: Performed By: #### C MPX, CBCWD, PLCON #### [facility] [address] [place] [address] Bariatric Coordinator: Kemal Waterman MD WBC (Bld) [#/Vol] 4.7 10*3/uL Normal 4.5-11.5 [facility] Comment on above: Performed By: #### C MPX, CBCWD, PLCON #### [facility] [address] [facility] [place] [address] Bariatric Coordinator: Kemal Waterman MD CT CERVICAL SPINE WO [...] Dania Rodas MD 07/27/23 Final result Normal [facility] Comment on above: Order Comment: Reaso n for exam:->traumaDecision Support Exception - unselect if not a suspected or confirmed emergency medical condition->Emergency Medical Condition (MA)What reading provider will be dictating this exam?->CRC CT Cervical spine WO contras ton 07-27-2023 1. No fracture or nadira int dislocation is seen. 2. Degenerative changes, as described. [facility] EXAMINATION: CT OF THE CERVICAL SPINE [...] There is no prevertebral soft tissue swelling. [facility] Dania Rodas MD - 07/27/2023 EXAMINATION: [...] is seen. 2. Degenerative changes, as described. [facility] CT HEAD WO CONTRASTon 2023 CT HEAD [...] shift. No abnormal extra-axial fluid collection. The orzoco-white differentiation is maintained without evidence of an [...] Dania Rodas MD 07/27/23 Final result Normal [facility] Comment on above: Order Comment: Has a code stroke or stroke alert been called?->NoReason for exam:->TraumaDecision Support Exception - unselect if not a suspected or confirmed emergency medical condition->Emergency Medical Condition (MA)What reading provider will be dictating this exam?->CRC CT Head WO contraston 2023 No skull fracture or acute intracranial abnormality. [facility] EXAMINATION: CT OF THE HEAD WITHOUT [...] of the visualized skull or soft tissues. [facility] Dania Rodas MD - 07/27/2023 EXAMINATION: [...] No skull fracture or acute intracranial abnormality. [facility] CT Head WO contrastOrdered B y: Dania Rodas on 07-27-2023 [facility] Work Phone: CT LUMBAR SPINE WO [...] Dania Rodas MD 07/27/23 Final result Normal [facility] Comment on above: Order Comment: Reaso n [...] for further evaluation. 2. Mild degenerative changes. [facility] EXAMINATION: CT OF THE LUMBAR SPINE [...] SOFT TISSUES/RETROPERITONEUM: No paraspinal mass is seen. [facility] Dania Rodas MD - 07/27/2023 EXAMINATION: [...] for further evaluation. 2. Mild degenerative changes. [facility] CT THORACIC SPINE WO CONTRAS Ton 07-27-2023 [...] Dania Rodas MD 07/27/23 Final result Normal [facility] Comment on above: Order Comment: Reaso n for exam:->traumaWhat reading provider will be dictating this exam?->CRC CT Thoracic spine WO contras ton 07-27-2023 No fracture or joint dislocation. [facility] EXAMINATION: CT OF THE THORACIC [...] SOFT TISSUES: No paraspinal mass is seen. [facility] Dania Rodas MD - 07/27/2023 EXAMINATION: [...] seen. IMPRESSION: No fracture or joint dislocation. [facility] Comp Metabolic Profon 2023 Albumin [Mass/Vol] 3.1 g/dL Low 3.5-5.2 [facility] Comment on above: Performed By: #### C MPX, CBCWD, PLCON #### [facility] [address] [place] [address] Bariatric Coordinator: Kemal Waterman MD Alkaline Phos 242 U/L High 40-129 [facility] Comment on above: Performed By: #### C MPX, CBCWD, PLCON #### [address] [place] [address] Bariatric Coordinator: Kemal Waterman MD ALT [Catalytic activity/Vol] 21 U/L Normal 0-40 [facility] Comment on above: Performed By: #### C MPX, CBCWD, PLCON #### [address] [place] [address] Bariatric Coordinator: Kemal Waterman MD Anion gap [Moles/Vol] 7 mmol/L Normal 7-16 [facility] Comment on above: Performed By: #### C MPX, CBCWD, PLCON #### [address] [place] [address] Bariatric Coordinator: Kemal Waterman MD AST [Catalytic activity/Vol] 51 U/L High 0-39 [facility] Comment on above: Performed By: #### C MPX, CBCWD, PLCON #### [address] [place] [address] Bariatric Coordinator: Kemal Waterman MD Bilirubin [Mass/Vol] 2.1 mg/dL High 0.0-1.2 [facility] Comment on above: Performed By: #### C MPX, CBCWD, PLCON #### [address] [place] [address] Bariatric Coordinator: Kemal Waterman MD Calcium [Mass/Vol] 7.7 mg/dL Low 8.6-10.2 [facility] Comment on above: Performed By: #### C MPX, CBCWD, PLCON #### [address] [place] [address] Bariatric Coordinator: Kemal Waterman MD Chloride [Moles/Vol] 105 mmol/L Normal 98-107 [facility] Comment on above: Performed By: #### C MPX, CBCWD, PLCON #### [address] [place] [address] Bariatric Coordinator: Kemal Waterman MD CO2 [Moles/Vol] 26 mmol/L Normal 22-29 [facility] Comment on above: Performed By: #### C MPX, CBCWD, PLCON #### [address] [place] [address] Bariatric Coordinator: Kemal Waterman MD Creatinine [Mass/Vol] 0.8 mg/dL Normal 0.70-1.20 [facility] Comment on above: Performed By: #### C MPX, CBCWD, PLCON #### [address] [place] [address] Bariatric Coordinator: Kemal Waterman MD GFR/1.73 sq M.predicted among non-blacks MDRD (S/P/Bld) [Vol rate/Area] mL/min/{1.73_m2} Normal >60 [facility] Comment on above: Result Comment: These results [...] By: #### C MPX, CBCWD, PLCON #### [address] [place] [address] Bariatric Coordinator: Kemal Waterman MD Glucose [Mass/Vol] 100 mg/dL High 74-99 [facility] Comment on above: Performed By: #### C MPX, CBCWD, PLCON #### [address] [place] [address] Bariatric Coordinator: Kemal Waterman MD Potassium [Moles/Vol] 4.3 mmol/L Normal 3.5-5.0 [facility] Comment on above: Performed By: #### C MPX, CBCWD, PLCON #### [address] [place] [address] Bariatric Coordinator: Kemal Waterman MD Protein [Mass/Vol] 5.7 g/dL Low 6.4-8.3 [facility] Comment on above: Performed By: #### C MPX, CBCWD, PLCON #### [address] [place] [address] Bariatric Coordinator: Kemal Waterman MD Sodium [Moles/Vol] 138 mmol/L Normal 132-146 [facility] Comment on above: Performed By: #### C MPX, CBCWD, PLCON #### [address] [place] [address] Bariatric Coordinator: Kemal Waterman MD Urea nitrogen [Mass/Vol] 9 mg/dL Normal 6-20 [facility] Comment on above: Performed By: #### C MPX, CBCWD, PLCON #### [address] [place] [address] Bariatric Coordinator: Kemal Waterman MD Comprehensive Metabolic Pane [facility] 07-27-2023 Albumin [Mass/Vol] 3.1 g/dL Low 3.5 - 5.2 g/dL [facility] ALP [Catalytic activity/Vol] 242 U/L High 40 - 129 U/L [facility] ALT [Catalytic activity/Vol] 21 U/L 0 - 40 U/L [facility] Anion gap [Moles/Vol] 7 mmol/L 7 - 16 mmol/L [facility] AST [Catalytic activity/Vol] 51 U/L High 0 - 39 U/L [facility] Bilirubin [Mass/Vol] 2.1 mg/dL High 0.0 - 1 .2 mg/dL [facility] Calcium [Mass/Vol] 7.7 mg/dL Low 8.6 - 10. 2 mg/dL [facility] Chloride [Moles/Vol] 105 mmol/L 98 - 10 7 mmol/L [facility] CO2 [Moles/Vol] 26 mmol/L 22 - 29 mmol/L [facility] Creatinine [Mass/Vol] 0.8 mg/dL 0.70 - 1.20 mg/dL [facility] GFR/1.73 sq M.predicted MDRD (S/P/Bld) [Vol rate/Area] - PINF [facility] Comment on above: These results are [...] 100 mg/dL High 74 - 99 mg/dL [facility] Interpretation and review of laboratory results Abnormal [facility] Potassium [Moles/Vol] 4.3 mmol/L 3.5 - 5.0 mmol/L [facility] Protein [Mass/Vol] 5.7 g/dL Low 6.4 - 8.3 g/dL [facility] Sodium [Moles/Vol] 138 mmol/L 132 - 146 mmol/L [facility] Urea nitrogen [Mass/Vol] 9 mg/dL 6 - 20 mg/dL [facility] MR Lumbar spine WO contrasto n 07-27-2023 Acute mild L2 compression fracture. No sign of any additional compression fractures. No signs of spinal stenosis or nerve root impingement. [facility] EXAMINATION: MRI OF THE LUMBAR [...] Normal left neural foramen. Normal disc height. [facility] Ta Desir MD - 07/27/2023 [...] of spinal stenosis or nerve root impingement. [facility] Study observation (narrative) [facility],2,3 [facility] MR Lumbar spine WO contrastO rdered By: Ta Desir on 07-27-2023 [facility] Work Phone: MR Thoracic spine WO contras ton 07-27-2023 1. No sign of acute osseous injury to the thoracic spine. 2. Mild old compression fracture of T9. 3. No sign of spinal stenosis. 4. Mild right lateral T8-9 disc bulge associated with mild flattening of the right anterior thoracic cord. [facility] EXAMINATION: MRI OF THE THORACIC [...] of disc height from disc degenerative disease. [facility] Ta Desir MD - 07/27/2023 [...] flattening of the right anterior thoracic cord. [facility] Radiology Study observation (narrative) [facility] MRI LUMBAR SPINE WO CONTRAST on [...] Ta Desir MD 07/27/23 Final result Normal [facility] Comment on above: Order Comment: Reaso n [...] Ta Desir MD 07/27/23 Final result Normal [facility] Comment on above: Order Comment: Reaso n for exam:->spinal tendernessWhat reading provider will be dictating this exam?->CRC No Panel Informationon 07-27 [employer] Radiology Study observation (narrative) [employer] Platelet Confirmationon 07-17 Platelet Confirmation CONFIRMED Normal [facility] Comment on above: Performed By: #### C MPX, CBCWD, PLCON #### [facility] [address] [place] [address] Bariatric Coordinator: Kemal Waterman MD Platelet Confirmation CONFIRMED [employer] Portable XR Chest AP single viewon 07-27-2023 No acute process. [facility] EXAMINATION: ONE XRAY VIEW OF THE CHEST 07/27/2023 10:32 am COMPARISON: None. HISTORY: ORDERING SYSTEM PROVIDED HISTORY: fall TECHNOLOGIST PROVIDED HISTORY: Reason for exam:->fall What reading provider will be dictating this exam?->CRC FINDINGS: The lungs are without acute focal process. There is no effusion or pneumothorax. The cardiomediastinal silhouette is without acute process. The osseous structures are without acute process. [facility] Dayton De La Cruz MD - [...] without acute process. IMPRESSION: No acute process. [employer] Radiology Study observation (narrative) [employer] Portable XR Chest AP single viewOrdered By: Dayton De La Cruz on 07-27-2023 [employer] Work Phone: XR CHEST PORTABLEon 07-27-19 24 [...] La Cruz MD 07/27/23 Final result Normal [facility] Comment on above: Order Comment: Reaso n [...] Willem Lamb DO 07/27/23 Final result Normal [facility] Comment on above: Order Comment: Reaso n for exam:->trauma, fallWhat reading provider will be dictating this exam?->CRC XR Pelvis and Hip - bilatera l Viewson 07-27-2023 1. No fracture or dislocation. 2. Mild degenerative changes of the bilateral hips. [facility] EXAMINATION: ONE XRAY VIEW OF THE [...] views of the bilateral hips without irregularity [facility] Willem Lamb - 07/27/2023 EXAMINATION: ONE XRAY VIEW OF [...] Mild degenerative changes of the bilateral hips. [facility] Radiology Study observation (narrative) [facility] XR Pelvis and Hip - bilatera l ViewsOrdered By: Willem Lamb on 07-27-2023 [facility] Work Phone: Ammoniaon 07-25-2023 Ammonia (P) [Moles/Vol] 41 umol/L Normal 16.0-60.0 [facility] Comment on above: Performed By: #### L IPR CP, LINDA WOOD, CALDERONWD #### [place] [address] Bariatric Coordinator: Kemal Waterman MD Ammoniaon 07-23-2023 Ammonia (P) [Moles/Vol] 127 umol/L High 16.0-60.0 [facility] Comment on above: Performed By: #### L IPR CP, PLCON, LINDA, CBCWD #### [place] [address] Bariatric Coordinator: Kemal Waterman MD CBC with Diffon 07-23-2023 Abs. Basophil 0.02 k/uL Normal 0.00-0.20 [facility] Comment on above: Performed By: #### L IPR, CP, PLCON, LINDA, CBCWD #### [address] [place] [address] Bariatric Coordinator: Kemal Waterman MD Abs.Imm.Granulocyte <0.03 Normal 0.00-0.58 [facility] Comment on above: Performed By: #### L IPR, CP, PLCON, LINDA, CBCWD #### [address] [place] [address] Bariatric Coordinator: Kemal Waterman MD Abs.Neutrophil (Seg) 2.57 k/uL Normal 1.80-7.30 [facility] Comment on above: Performed By: #### L IPR, CP, PLCON, LINDA, CBCWD #### [address] [place] [address] Bariatric Coordinator: Kemal Waterman MD Basophils/100 WBC (Bld) 1 % Normal 0.0-2.0 [facility] Comment on above: Performed By: #### L IPR, CP, PLCON, LINDA, CBCWD #### [place] [address] Bariatric Coordinator: Kemal Waterman MD Eosinophils (Bld) [#/Vol] 0.15 10*3/uL Normal 0.05-0.50 [facility] Comment on above: Performed By: #### L IPR, CP, PLCON, LINDA, CBCWD #### [address] [place] [address] Bariatric Coordinator: Kemal Waterman MD Eosinophils/100 WBC (Bld) 4 % Normal 0-6 [facility] Comment on above: Performed By: #### L IPR, CP, PLCON, LINDA, CBCWD #### [place] [address] Bariatric Coordinator: Kemal Waterman MD Immature granulocytes/100 WBC (Bld) 0 % Normal 0.0-5.0 [facility] Comment on above: Performed By: #### L IPR, CP, PLCON, LINDA, CBCWD #### [place] [address] Bariatric Coordinator: Kemal Waterman MD Lymphocytes (Bld) [#/Vol] 0.78 10*3/uL Low 1.50-4.00 [facility] Comment on above: Performed By: #### L IPR, CP, PLCON, LINDA, CBCWD #### [place] [address] Bariatric Coordinator: Kemal Waterman MD Lymphocytes/100 WBC (Bld) 20 % Normal 20.0-42.0 [facility] Comment on above: Performed By: #### L IPR, CP, PLCON, LINDA, CBCWD #### [place] [address] Bariatric Coordinator: Kemal Waterman MD Monocytes (Bld) [#/Vol] 0.32 10*3/uL Normal 0.10-0.95 [facility] Comment on above: Performed By: #### L IPR, CP, PLCON, LINDA, CBCWD #### [place] [address] Bariatric Coordinator: Kemal Waterman MD Monocytes/100 WBC (Bld) 8 % Normal 2.0-12.0 [facility] Comment on above: Performed By: #### L IPR, CP, PLCON, LINDA, CBCWD #### [address] [address] Bariatric Coordinator: Kemal Waterman MD Neutrophil (Seg) 67 % Normal 43.0-80.0 [facility] Comment on above: Performed By: #### L IPR, CP, PLCON, LINDA, CBCWD #### [address] [place] [address] Bariatric Coordinator: Kemal Waterman MD RBC morphology finding Nom (Bld) 2+ Normal [facility] Comment on above: Result Comment: ANIS OCYTOSIS 1+ OVALOCYTES 1+ POIKILOCYTOSIS 1+ POLYCHROMASIA 1+ SCHISTOCYTES 1+ TARGET CELLS Performed By: #### L IPR, CP, PLCON, LINDA, CBCWD #### [address] [place] [address] Bariatric Coordinator: Kemal Waterman MD Erythrocyte distribution width (RBC) [Ratio] 20.7 % High 11.5-15.0 [facility] Comment on above: Performed By: #### L IPR, CP, PLCON, LINDA, CBCWD #### [address] [place] [address] Bariatric Coordinator: Kemal Waterman MD Hematocrit (Bld) [Volume fraction] 33.9 % Low 37.0-54.0 [facility] Comment on above: Performed By: #### L IPR, CP, PLCON, LINDA, CBCWD #### [address] [place] [address] Bariatric Coordinator: Kemal Waterman MD Hemoglobin (Bld) [Mass/Vol] 10.9 g/dL Low 12.5-16.5 [facility] Comment on above: Performed By: #### L IPR, CP, PLCON, LINDA, CBCWD #### [address] [place] [address] Bariatric Coordinator: Kemal Waterman MD MCH (RBC) [Entitic mass] 31.5 pg Normal 26.0-35.0 [facility] Comment on above: Performed By: #### L IPR, CP, PLCON, LINDA, CBCWD #### [address] [place] [address] Bariatric Coordinator: Kemal Waterman MD MCHC (RBC) [Mass/Vol] 32.2 g/dL Normal 32.0-34.5 [facility] Comment on above: Performed By: #### L IPR, CP, PLCON, LINDA, CBCWD #### [address] [place] [address] Bariatric Coordinator: Kemal Waterman MD MCV (RBC) [Entitic vol] 98.0 fL Normal 80.0-99.9 [facility] Comment on above: Performed By: #### L IPR, CP, PLCON, LINDA, CBCWD #### [address] [place] [address] Bariatric Coordinator: Kemal Waterman MD Platelet mean volume (Bld) [Entitic vol] 9.8 fL Normal 7.0-12.0 [facility] Comment on above: Performed By: #### L IPR, CP, PLCON, LINDA, CBCWD #### [address] [place] [address] Bariatric Coordinator: Kemal Waterman MD Platelets (Bld) [#/Vol] 62 10*3/uL Low 130-450 [facility] Comment on above: Performed By: #### L IPR, CP, PLCON, LINDA, CBCWD #### [address] [place] [address] Bariatric Coordinator: Kemal Waterman MD RBC (Bld) [#/Vol] 3.46 10*6/uL Low 3.80-5.80 [facility] Comment on above: Performed By: #### L IPR, CP, PLCON, LINDA, CBCWD #### [address] [place], [place] [address] Bariatric Coordinator: Kemal Waterman MD WBC (Bld) [#/Vol] 3.9 10*3/uL Low 4.5-11.5 [facility] Comment on above: Performed By: #### L IPR, CP, PLCON, LINDA, CBCWD #### [address] [place] [address] Bariatric Coordinator: Kemal Waterman MD Comp Metabolic Profon 2023 Albumin [Mass/Vol] 3.4 g/dL Low 3.5-5.2 [facility] Comment on above: Performed By: #### L IPR, CP, PLCON, LINDA, CBCWD #### [address] [place] [address] Bariatric Coordinator: Kemal Waterman MD Alkaline Phos 265 U/L High 40-129 [facility] Comment on above: Performed By: #### L IPR, CP, PLCON, LINDA, CBCWD #### [address] [place] [address] Bariatric Coordinator: Kemal Waterman MD ALT [Catalytic activity/Vol] 19 U/L Normal 0-40 [facility] Comment on above: Performed By: #### L IPR, CP, PLCON, LINDA, CBCWD #### [address] [place] [address] Bariatric Coordinator: Kemal Waterman MD Anion gap [Moles/Vol] 12 mmol/L Normal 7-16 [facility] Comment on above: Performed By: #### L IPR, CP, PLCON, LINDA, CBCWD #### [address] [place], [place] [address] Bariatric Coordinator: Kemal Waterman MD AST [Catalytic activity/Vol] 50 U/L High 0-39 [facility] Comment on above: Performed By: #### L IPR, CP, PLCON, LINDA, CBCWD #### [address] [place] [address] Bariatric Coordinator: Kemal Waterman MD Bilirubin [Mass/Vol] 2.3 mg/dL High 0.0-1.2 [facility] Comment on above: Performed By: #### L IPR, CP, PLCON, LINDA, CBCWD #### [address] [place] [address] Bariatric Coordinator: Kemal Waterman MD Calcium [Mass/Vol] 8.3 mg/dL Low 8.6-10.2 [facility] Comment on above: Performed By: #### L IPR, CP, PLCON, LINDA, CBCWD #### [address] [place] [address] Bariatric Coordinator: Kemal Waterman MD Chloride [Moles/Vol] 103 mmol/L Normal 98-107 [facility] Comment on above: Performed By: #### L IPR, CP, PLCON, LINDA, CBCWD #### [address] [place] [address] Bariatric Coordinator: Kemal Waterman MD CO2 [Moles/Vol] 25 mmol/L Normal 22-29 [facility] Comment on above: Performed By: #### L IPR, CP, PLCON, LINDA, CBCWD #### [address] [place] [address] Bariatric Coordinator: Kemal Waterman MD Creatinine [Mass/Vol] 0.8 mg/dL Normal 0.70-1.20 [facility] Comment on above: Performed By: #### L IPR, CP, PLCON, LINDA, CBCWD #### [address] [place] [address] Bariatric Coordinator: Kemal Waterman MD GFR/1.73 sq M.predicted among non-blacks MDRD (S/P/Bld) [Vol rate/Area] mL/min/{1.73_m2} Normal >60 [facility] Comment on above: Result Comment: These results [...] L IPR, CP, PLCON, LINDA, CBCWD #### [address] [place] [address] Bariatric Coordinator: Kemal Waterman MD Glucose [Mass/Vol] 266 mg/dL High 74-99 [facility] Comment on above: Performed By: #### L IPR, CP, PLCON, LINDA, CBCWD #### [address] [place] [address] Bariatric Coordinator: Kemal Waterman MD Potassium [Moles/Vol] 4.3 mmol/L Normal 3.5-5.0 [facility] Comment on above: Performed By: #### L IPR, CP, PLCON, LINDA, CBCWD #### [address] [place] [address] Bariatric Coordinator: Kemal Waterman MD Protein [Mass/Vol] 6.6 g/dL Normal 6.4-8.3 [facility] Comment on above: Performed By: #### L IPR, CP, PLCON, LINDA, CBCWD #### [address] [place] [address] Bariatric Coordinator: Kemal Waterman MD Sodium [Moles/Vol] 140 mmol/L Normal 132-146 [facility] Comment on above: Performed By: #### L IPR, CP, PLCON, LINDA, CBCWD #### [address] [place] [address] Bariatric Coordinator: Kemal Waterman MD Urea nitrogen [Mass/Vol] 9 mg/dL Normal 6-20 [facility] Comment on above: Performed By: #### L IPR, CP, PLCON, LINDA, CBCWD #### [address] [place] [address] Bariatric Coordinator: Kemal Waterman MD Drug Scr, Abuse, Uron 2023 Amphetamine(s),Ur Negative Normal NEG [facility] Comment on above: Result Comment: Cuto ff: 1000 ng/mL Performed By: #### U A, ROBERT #### [place] [address] Bariatric Coordinator: Kemal Waterman MD Barbiturate(s),Ur Negative Normal NEG [facility] Comment on above: Result Comment: Cuto ff: 200 ng/ml Performed By: #### U A, ROBERT #### [address] [place] [address] Bariatric Coordinator: Kemal Waterman MD Benzodiazepine(s) Negative Normal NEG [facility] Comment on above: Result Comment: Cuto ff: 200 ng/ml Performed By: #### U A, ROBERT #### [place] [address] Bariatric Coordinator: Kemal Waterman MD Buprenorphrine, Ur Negative Normal NEG [facility] Comment on above: Result Comment: Cuto ff: 5 ng/ml Performed By: #### U A, ROBERT #### [address] [place] [address] Bariatric Coordinator: Kemal Waterman MD Cannabinoid(s),Ur Negative Normal NEG [facility] Comment on above: Result Comment: Cuto ff: 50 ng/ml Performed By: #### U A, ROBERT #### [address] [place] [address] Bariatric Coordinator: Kemal Waterman MD Cocaine Metabolite Negative Normal NEG [facility] Comment on above: Result Comment: Cuto ff: 300 ng/ml Performed By: #### U A, ROBERT #### [address] [place] [address] Bariatric Coordinator: Kemal Waterman MD Fentanyl, Urine Negative Normal NEG [facility] Comment on above: Result Comment: Cuto ff: 1.0 ng/ml Performed By: #### U A, ROBERT #### [address] [place] [address] Bariatric Coordinator: Kemal Waterman MD Interpretive Info These drug screen results are for medical purposes only and should not be Normal [facility] Comment on above: Result Comment: cons idered definitive or confirmed. The drug methodology concentration value must be greater than or equal to the cutoff to be reported as positive. Confirmtory testing orders and/or interpretive sceening questions can be directed to toxicology at [phone]. The absence of expected drug(s) and/or metabolite(s) may be due to inappropriate timing of specimen collection relative to drug administration, poor drug absorption, diluted/adulterated urine, or limitations of screening methodology. Performed By: #### U A, ROBERT #### [address] [place] [address] Bariatric Coordinator: Kemal Waterman MD Methadone Ql (U) Negative Normal NEG [facility] Comment on above: Result Comment: Cuto ff: 300 ng/ml Performed By: #### U A, ROBERT #### [address] [place] [address] Bariatric Coordinator: Kemal Waterman MD Opiate(s), Ur Negative Normal NEG [facility] Comment on above: Result Comment: Cuto ff: 300 ng/ml Note: The Opiate screen is not intended to detect Oxycodone. Performed By: #### U A, ROBERT #### [address] [place] [address] Bariatric Coordinator: Kemal Waterman MD Oxycodone, Urine Negative Normal NEG [facility] Comment on above: Result Comment: Cuto ff: 100 ng/ml Performed By: #### U A, ROBERT #### [address] [place] [address] Bariatric Coordinator: Kemal Waterman MD Phencyclidine, Ur Negative Normal NEG [facility] Comment on above: Result Comment: Cuto ff: 25 ng/ml Performed By: #### U A, ROBERT #### [place] [address] Bariatric Coordinator: Kemal Waterman MD Hemoglobin A1Con 07-23-2023 HbA1c (Bld) [Mass fraction] 4.9 % Normal 4.0-5.6 [facility] Comment on above: Performed By: #### G LYHGB #### [address] [place] [address] Bariatric Coordinator: Kemal Waterman MD Lipid Profileon 07-23-2023 Cholesterol [Mass/Vol] 148 mg/dL Normal <200 [facility] Comment on above: Performed By: #### L IPR, CP, PLCON, LINDA, CBCWD #### [address] [place] [address] Bariatric Coordinator: Kemal Waterman MD Cholesterol in HDL [Mass/Vol] 83 mg/dL Normal >40 [facility] Comment on above: Performed By: #### L IPR, CP, PLCON, LINDA, CBCWD #### [place] [address] [place] [address] Bariatric Coordinator: Kemal Waterman MD Cholesterol in LDL [Mass/Vol] 48 mg/dL Normal <100 [facility] Comment on above: Performed By: #### L IPR, CP, PLCON, LINDA, CBCWD #### [address] [place] [address] Bariatric Coordinator: Kemal Waterman MD Cholesterol in VLDL [Mass/Vol] 17 mg/dL Normal [facility] Comment on above: Result Comment: No n ormal range established. Performed By: #### L IPR, CP, PLCON, LINDA, CBCWD #### [address] [place] [address] Bariatric Coordinator: Kemal Waterman MD Triglyceride [Mass/Vol] 85 mg/dL Normal <150 [facility] Comment on above: Performed By: #### L IPR, CP, PLCON, LINDA, CBCWD #### [address] [place] [address] Bariatric Coordinator: Kemal Waterman MD Platelet Confirmationon Platelet Confirmation The automated plat elet count may be artifactually decreased due to platelet Normal [facility] Comment on above: Result Comment: clum ping. Performed By: #### L IPR, CP, PLCON, LINDA, CBCWD #### [place] [address] [place] [address] Bariatric Coordinator: Kemal Waterman MD Urinalysis, Routineon 2023 Bilirubin, SemiQt,Ur Negative Normal NEG [facility] Comment on above: Performed By: #### U A, ROBERT #### [address] [place] [address] Bariatric Coordinator: Kemal Waterman MD Blood, Urine Negative Normal NEG [facility] Comment on above: Performed By: #### U A, ROBERT #### [address] [place] [address] Bariatric Coordinator: Kemal Waterman MD Clarity (U) Clear Normal CLEAR [facility] Comment on above: Performed By: #### U A, ROBERT #### [address] [address] Bariatric Coordinator: Kemal Waterman MD Color (U) Yellow Normal YEL [facility] Comment on above: Performed By: #### U A, ROBERT #### [address] [place] [address] Bariatric Coordinator: Kemal Waterman MD Comment Microscopic exam not performed based on chemical results unless requested in Normal [facility] Comment on above: Result Comment: orig inal order. Performed By: #### U A, ROBERT #### [address] [place] [address] Bariatric Coordinator: Kemal Waterman MD Glucose Ql (U) Negative Normal NEG [facility] Comment on above: Performed By: #### U A, ROBERT #### [address] [place] [address] Bariatric Coordinator: Kemal Waterman MD Ketones Ql (U) Negative Normal NEG [facility] Comment on above: Performed By: #### U A, ROBERT #### [address] [place] [address] Bariatric Coordinator: Kemal Waterman MD Leukocyte esterase Test strip Ql (U) Negative Normal NEG [facility] Comment on above: Performed By: #### U A, ROBERT #### [address] [place] [address] Bariatric Coordinator: Kemal Waterman MD Nitrite,Ur Negative Normal NEG [facility] Comment on above: Performed By: #### U A, ROBERT #### [address] [place] [address] Bariatric Coordinator: Kemal Waterman MD PH,Ur 6.0 Normal 5.0-9.0 [facility] Comment on above: Performed By: #### U A, ROBERT #### [address] [place] [address] Bariatric Coordinator: Kemal Waterman MD Protein Ql (U) Negative Normal NEG [facility] Comment on above: Performed By: #### U A, ROBERT #### [address] [place] [address] Bariatric Coordinator: Kemal Waterman MD Spec. [place],Ur 1.020 Normal 1.005-1.030 [facility] Comment on above: Performed By: #### U A, ROBERT #### [address] [address] Bariatric Coordinator: Kemal Waterman MD Urobilinogen,Ur 0.2 EU/dL Normal 0.0-1.0 [facility] Comment on above: Performed By: #### U A, ROBERT #### [address] [address] Bariatric Coordinator: GuevaraKemal MD [facility] TANYAALEX KLINE ([id number]) 1975 M T Date Time Provider Department 07/19/23 AMANDA DEVLIN During your visit today, we recorded the following information about you: Amanda Devlin, PENNY 07/19/2023 4:41 PM Signed Patient ID by Name and date: Called and informed Nurse Luana that patient's appt scheduled incorrectly. Luana states no liver mass or cancer. Patient to be seen regarding cirrhosis- Luana agrees no surgeon needed. Luana given number to call and reschedule appt and also left message for [facility] scheduling staff Uma to reschedule the appt. VM included my contact information - appt with Dr. Tamy shore and Luana Nurse agree. 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 Date Time Provider Department 07/14/23 AMARIS ABEL During your visit today, we recorded the following information about you: Amaris Abel LPN 07/14/2023 2:48 PM Signed Contacted patient and was advised of phone number listed as [facility]. Transferred to [facility] and advised by Nurse Zara unable to discuss patient's status because of HIPAA and transferred to [employer] and no one answered phone call. [facility] [address] [place], [place] [id number] Contacted patient's spouse listed on chart, Nicolle [...] Status:Closed by AMARIS ABEL on 07/14/23 Normal [facility] Bacteria Ur Culton 3 Bacteria identified Cx Nom (U) ORGANISM ID: 1 <10,000 CFU/ml Mixed microbiota No further workup. Mixed microbiota can be due to???urine???contaminati on with skin bacteria at time of collection or presence of a long-term urinary catheter. If a new culture is needed, please consider re-education of the patient on proper midstream collection technique or straight catheterization for???urine???collection . Normal [facility] Comment on above: Performed By: #### 6 30-4 ####[facility] LABCL[facility] [id number] [place] [address] [place] Ammoniaon 04-20-2023 Ammonia (P) [Moles/Vol] 125 umol/L High 16.0-60.0 [facility] Comment on above: Performed By: #### A MON #### [facility] [address] [facility] [place] [address] Bariatric Coordinator: Kemal Waterman MD Ammoniaon 04-17-2023 Ammonia (P) [Moles/Vol] 111 umol/L High 16.0-60.0 [facility] Comment on above: Performed By: #### A MON #### [address] [facility] [place] [address] Bariatric Coordinator: Kemal Waterman MD CT CERVICAL SPINE WITHOUT [...] thoracic spine. Mild multilevel degenerative disc disease. [employer] Workstation ID: [id number] Dictated by: VINICIUS ENCINAS on MonFeb 19, 2023 8:01:41 PM EDT Transcribed by: TATYANA OLIVIER on MonFeb 19, 2023 8:09:33 PM EDT Finalized by: VINICIUS ENCINAS on [place] Feb 19, 2023 8:20:08 PM EDT [facility] Comment on above: Order Comment: [...] thoracic spine. Mild multilevel degenerative disc disease. [employer] Workstation ID: [id number] Dictated by: VINICIUS ENCINAS on MonFeb 19, 2023 8:01:41 PM EDT Transcribed by: TATYANA OLIVIER on MonFeb 19, 2023 8:09:33 PM EDT Finalized by: VINICIUS ENCINAS on MonFeb 19, 2023 8:20:08 PM EDT [facility] Comment on above: Order Comment: [...] thoracic spine. Mild multilevel degenerative disc disease. [employer] Workstation ID: [id number] Dictated by: VINICIUS ENCINAS on [place] Feb 19, 2023 8:01:41 PM EDT Transcribed by: TATYANA OLIVIER on [place] Feb 19, 2023 8:09:33 PM EDT Finalized by: VINICIUS ENCINAS on [place] Feb 19, 2023 8:20:08 PM EDT [facility] Comment on above: Order Comment: Injur y/Trauma or Illness?:Injury/Trauma How long have you had these symptoms (acute/chronic)?:Acute Reason for exam?:Fall/headache/neck pain Type of Exam?:Initial Mechanism of injury?:Fall/headache/neck pain ANES POSTPROC EVALon 023 ANES POSTPROC EVAL HNO ID: [id number] Author: Hanna Peguero MD Service: Anesthesiology Author Type: Anesthesiologist Type: Anesthesia Postprocedure Evaluation Filed: 09/17/2022 12:37 AM Note Text: POST ANESTHESIA EVALUATION NOTE : 1975 Procedure Summary Date: 09/16/22 Room / Location: OR / OR Anesthesia Start: 1937 Anesthesia Stop: [...] September 17, 2022 TIME: 12:37 AM CSN: [id number] Normal [facility] Basic metabolic 2000 panelon 09-17-2022 Anion gap [Moles/Vol] 12 mmol/L Normal 5-16 [facility] Comment on above: Order Comment: Katherine kim Type: BLOOD SPECIMENOrdering Facility: [facility] Address: [address] [place] [address] Performed By: #### 2 4321-2 ####[facility] LABORATORYCLIA [id number] [place] [address] [place] Calcium [Mass/Vol] 8.1 mg/dL Low 8.5-10.5 [facility] Comment on above: Order Comment: Katherine kim Type: BLOOD SPECIMENOrdering Facility: [facility] Address: [address] [address] Performed By: #### 2 4321-2 ####[facility] LABORATORYCLIA [id number] [place] [address] [place] Chloride [Moles/Vol] 106 mmol/L Normal 98-107 [facility] Comment on above: Order Comment: Speci men Type: BLOOD SPECIMENOrdering Facility: [facility] Address: [address] [place] [address] Performed By: #### 2 4321-2 ####[facility] LABORATORYCLIA [id number] [place] [address] [place] CO2 [Moles/Vol] 21 mmol/L Normal 21-32 [facility] Comment on above: Order Comment: Speci men Type: BLOOD SPECIMENOrdering Facility: [facility] Address: [address] [place] [address] Performed By: #### 2 4321-2 ####[facility] LABORATORYCLIA [id number] [place] [address] [place] Creatinine [Mass/Vol] 0.89 mg/dL Normal 0.50-1.40 [facility] Comment on above: Order Comment: Speci men Type: BLOOD SPECIMENOrdering Facility: [facility] Address: [address] [place] [address] Result Comment: Barbara ents receiving either N-Acetylcysteine (NAC) or Metamizole prior to venipuncture, may have falsely depressed results. Performed By: #### 2 4321-2 ####[facility] LABORATORYCLIA [id number] [place] [address] [place] ESTIMATED GLOMERULAR FILTRATION RATE 106 mL/min/1.73m??? Normal >=60 [facility] Comment on above: Order Comment: Speci men Type: BLOOD SPECIMENOrdering Facility: [facility] Address: [address] [place] [address] Result Comment: Rabia mated Glomerular Filtration Rate [...] actual GFR. Performed By: #### 2 4321-2 ####[facility] LABORATORYCLIA [id number] [place] [address] [place] Glucose [Mass/Vol] 177 mg/dL High 70-100 [facility] Comment on above: Order Comment: Katherine kim Type: BLOOD SPECIMENOrdering Facility: [facility] Address: [address] [phone] Result Comment: The [place] Diabetes [employer] (ADA) provides guidance for cutoff [...] Standards of Medical Care in Diabetes 2016, [place] [employer]. Diabetes Care. 2016.39(Suppl 1). Results may be falsely elevated after the administration of Sulfapyridine. Results may be falsely depressed after the administration of Sulfasalazine. Performed By: #### 2 4321-2 ####[facility] LABORATORYCLIA [id number] [place] [address] [place] Potassium [Moles/Vol] 4.7 mmol/L Normal 3.5-5.1 [facility] Comment on above: Order Comment: Katherine kim Type: BLOOD SPECIMENOrdering Facility: [facility] Address: [address] [phone] Performed By: #### 2 4321-2 ####[facility] LABORATORYCLIA [id number] [place] [id number] [place] Sodium [Moles/Vol] 139 mmol/L Normal 136-145 [facility] Comment on above: Order Comment: Speci men Type: BLOOD SPECIMENOrdering Facility: [facility] Address: [address] [address] Performed By: #### 2 4321-2 ####[facility] LABORATORYCLIA [id number] [place] [id number] [place] Urea nitrogen [Mass/Vol] 28 mg/dL High 02-08 [facility] Comment on above: Order Comment: Speci men Type: BLOOD SPECIMENOrdering Facility: [facility] Address: [address] [address] Performed By: #### 2 4321-2 ####[facility] LABORATORYCLIA [id number] [place] [address] [place] CBC panel Auto (Bld)on 09-17 Erythrocyte distribution width (RBC) [Ratio] 14.8 % Normal 11.5-15.0 [facility] Comment on above: Order Comment: Speci men Type: BLOOD SPECIMENOrdering Facility: [facility] Address: [address] [address] Performed By: #### 5 8410-2 ####[facility] LABORATORYCLIA [id number] [place] [address] [place] Hematocrit (Bld) [Volume fraction] 31.0 % Low 39.0-51.0 [facility] Comment on above: Order Comment: Speci men Type: BLOOD SPECIMENOrdering Facility: [facility] Address: [address] [address] Performed By: #### 5 8410-2 ####[facility] LABORATORYCLIA [id number] [place] [id number] [place] Hemoglobin (Bld) [Mass/Vol] 10.3 g/dL Low 13.0-17.0 [facility] Comment on above: Order Comment: Speci men Type: BLOOD SPECIMENOrdering Facility: [facility] Address: [address] [address] Performed By: #### 5 8410-2 ####[facility] LABORATORYCLIA [id number] [address] MCH (RBC) [Entitic mass] 37.7 pg High 26.0-34.0 [facility] Comment on above: Order Comment: Speci men Type: BLOOD SPECIMENOrdering Facility: [facility] Address: [address] [place] [address] Performed By: #### 5 8410-2 ####[facility] LABORATORYCLIA [id number] [address] MCHC (RBC) [Mass/Vol] 33.2 g/dL Normal 30.5-36.0 [facility] Comment on above: Order Comment: Speci men Type: BLOOD SPECIMENOrdering Facility: [facility] Address: [address] [place] [address] Performed By: #### 5 8410-2 ####[facility] LABORATORYCLIA [id number] [address] MCV (RBC) [Entitic vol] 113.6 fL High 80.0-100.0 [facility] Comment on above: Order Comment: Speci men Type: BLOOD SPECIMENOrdering Facility: [facility] Address: [address] [place] [address] Performed By: #### 5 8410-2 ####[facility] LABORATORYCLIA [id number] [address] Nucleated RBC (Bld) [#/Vol] 10*3/uL Normal <0.01 [facility] Comment on above: Order Comment: Speci men Type: BLOOD SPECIMENOrdering Facility: [facility] Address: [address] [place] [address] Performed By: #### 5 8410-2 ####[facility]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 volume (MCV)on 06-16-2022 MCV (RBC) [Entitic vol] 112.4 fL 80-94 [facility] Work Phone: Direct bilirubinon 2 Bilirubin.direct [Mass/Vol] 2.29 mg/dL 0.00-0.30 [facility] Work Phone: Hematocrit Auto (Bld) [Volum e fraction]on 06-16-2022 Hematocrit (Bld) [Volume fraction] 35.3 % 40-54 [facility] Work Phone: INR in Blood by Coagulation assayon 06-16-2022 INR Coag (Bld) [Relative time] 1.9 {INR} [facility] Work Phone: Laboratory - Chemistry and C hemistry - challengeon 06-16-2022 ALP [Catalytic activity/Vol] 209 U/L 45-117 [facility] Work Phone: [phone] ALT [Catalytic activity/Vol] 47 U/L 16- [facility] Work Phone: CO2 [Moles/Vol] 28.0 mmol/L 21.0-32.0 [facility] Work Phone: Globulin (S) [Mass/Vol] 4.3 g/dL 2.2-4.2 [facility] Work Phone: [phone] Lipase [Catalytic activity/Vol] 275 U/L 73-393 [facility] Work Phone: [phone] Urea nitrogen/Creatinine [Mass ratio] 6.8 mg/mg 10 [facility] Work Phone: [phone] ALP [Catalytic activity/Vol] 199 U/L 45-117 [facility] Work Phone: [phone] ALT [Catalytic activity/Vol] 49 U/L [facility] Work Phone: CO2 [Moles/Vol] 30.0 mmol/L 21.0-32.0 [facility] Work Phone: [phone] Globulin (S) [Mass/Vol] 4.5 g/dL 2.2-4.2 [facility] Work Phone: Urea nitrogen/Creatinine [Mass ratio] 6.7 mg/mg 1020 [facility] Work Phone: Laboratory - Coagulationon 1 08-17-2021 aPTT Coag (Bld) [Time] 41.6 s 24.1-36.2 [facility] Work Phone: PT Coag (PPP) [Time] 21.3 s 11.7-14.9 [facility] Work Phone: Laboratory - Drug toxicology on 06-16-2022 Amphetamines Ql (U) Negative <1000 ng/mL [facility] Work Phone: Benzodiazepines Ql (U) Negative < 200 ng/mL [facility] Work Phone: Cannabinoids Screen Ql (U) Positive < 50 ng/mL [facility] Work Phone: Cocaine Ql (U) Negative < 300 ng/mL [facility] Work Phone: Opiates Ql (U) Negative < 300 ng/mL [facility] Work Phone: Laboratory - Hematology and Cell countson 06-16-2022 Erythrocyte distribution width (RBC) [Entitic vol] 55.8 fL 35.1-43.9 [facility] Work Phone: Erythrocyte distribution width (RBC) [Ratio] 13.5 % 11.6-14.6 [facility] Work Phone: Immature granulocytes/100 WBC (Bld) 0.400 % 0.0-0.9 [facility] Work Phone: Comment on above: IG% - Immature Granu locytes (promyelocytes, myelocytes and metamyelocytes) > 1% indicates that a LEFT SHIFT is Present. MCH (RBC) [Entitic mass] 39.2 pg 27.0-32.0 [facility] Work Phone: Nucleated RBC/100 WBC (Bld) [Ratio] 0 % 0-5 [facility] Work Phone: MCHC Auto (RBC) [Mass/Vol]on 06-16-2022 MCHC (RBC) [Mass/Vol] 34.8 g/dL 32-36 [facility] Work Phone: Comment on above: Delta: 37.0 on 06/141313 No Panel Informationon 06-16 MDMA (Ecstasy) Screen Negative < 500 ng/mL [facility] Work Phone: Urine Barbiturates Screen Negative < 200 ng/mL [facility] Work Phone: Urine Drug Screen Comment [facility] Work Phone: Comment on above: CONFIRMATORY TESTING [...] Urine Methadone Screen Negative < 300 ng/mL [facility] Work Phone: Estimated Creatinine Clearance Calc 67.92 ml/min [facility] Work Phone: Estimated GFR (MDRD) Amer 74 mL/min >60 [facility] Work Phone: Comment on above: GFR Calc Estimated GFR (MDRD) Non-Af Amer 61 mL/min >60 [facility] Work Phone: Comment on above: Non- GFR Calc Ethyl Alcohol Level < 3.0 mg/dL [facility] Work Phone: Comment on above: The serum:whole bloo d ethanol ratio is approximately 1.14and varies slightly with hematocrit. Medical Alcohol reference interval and critical value innon-tolerant individuals; 50 - 100 Impairment 100 Intoxication 100 - 250 Severe Poisoning 250 - 400 Deep/possible fatal coma Troponin I High Sensitivity 8 pg/mL 3.0-78.0 [facility] Work Phone: Comment on above: Please Note: New Chitra t Units and Gender Specific Reference Ranges. For more information see Policy Stat Procedure [place] High Sensitivity Troponin (TNIH) and attachments. Estimated Creatinine Clearance Calc 55.42 ml/min [facility] Work Phone: Estimated GFR (MDRD) Amer 58 mL/min >60 [facility] Work Phone: Comment on above: GFR Calc Estimated GFR (MDRD) Non-Af Amer 48 mL/min >60 [facility] Work Phone: Comment on above: Non- GFR Calc Platelets bldon 06-16-2022 Platelets (Bld) [#/Vol] 121 10*3/uL 150-450 [facility] Work Phone: Serum or plasma albumin leslye urement (mass/volume)on 06-16-2022 Albumin [Mass/Vol] 3.0 g/dL 3.2-5.0 [facility] Work Phone: Albumin [Mass/Vol] 3.0 g/dL 3.2-5.0 [facility] Work Phone: Serum or plasma albumin/glob ulin mass ratioon 06-16-2022 Albumin/Globulin [Mass ratio] 0.7 {ratio} 0.9-2.4 [facility] Work Phone: Serum or plasma calcium leslye urement (mass/volume)on 06-16-2022 Calcium [Mass/Vol] 8.8 mg/dL 8.5-10.1 [facility] Work Phone: Calcium [Mass/Vol] 8.5 mg/dL 8.5-10.1 [facility] Work Phone: Serum or plasma creatinine m easurement (mass/volume)on 06-16-2022 Creatinine [Mass/Vol] 1.33 mg/dL 0.70-1.30 [facility] Work Phone: Comment on above: The validity of the calculated GFR & GFRAA in patients over 70 years has not been determined. Clinical correlation is essential. Creatinine [Mass/Vol] 1.63 mg/dL 0.70-1.30 [facility] Work Phone: Comment on above: The validity of the calculated GFR & GFRAA in patients over 70 years has not been determined. Clinical correlation is essential. Serum or plasma urea nitroge n measurement (mass/volume)on 06-16-2022 Urea nitrogen [Mass/Vol] 9 mg/dL 01-31 [facility] Work Phone: Urea nitrogen [Mass/Vol] 11 mg/dL 01-31 [facility] Work Phone: Thin prep Papanicolaou smear with manual screeningon 06-16-2022 Thin prep Papanicolaou smear with manual screening 89 U/L [facility] Work Phone: Thin prep Papanicolaou smear with manual screening 7 11-28 [facility] Work Phone: Thin prep Papanicolaou smear with manual screening 92 U/L [facility] Work Phone: Thin prep Papanicolaou smear with manual screening 9 11-28 [facility] Work Phone: Urine phencyclidine (PCP) de tectionon 06-16-2022 Phencyclidine Ql (U) Negative < 25 ng/mL [facility] Work Phone: Absolute lymphocyte counton 06-14-2022 Lymphocytes Auto (Unsp spec) [#/Vol] 0.78 10*3/uL 0.83-4.51 [facility] Work Phone: Basophil percentageon 2021 Basophil percentage < 10.0 umol/L [facility] Work Phone: Basophils/100 WBC (Bld) 0.6 % 0-1 [facility] Work Phone: Bilirubin [Mass/Vol] 5.40 mg/dL 0.20-1.00 [facility] Work Phone: Comment on above: For patients on eltr ombopag therapy, use of Dimension Blue[place] TBIL is not recommended. Chloride [Moles/Vol] 93 mmol/L 98-107 [facility] Work Phone: [phone] Eosinophils/100 WBC (Bld) 1.0 % 0-5 [facility] Work Phone: [phone] Glucose [Mass/Vol] 183 mg/dL 74-106 [facility] Work Phone: [phone] Comment on above: Fasting Glucose resu lt greater than or equal to 126 mg/dL suggests DIABETES MELLITUS per A.D.A. criteria. Neutrophils (Bld) [#/Vol] 6.5 10*3/uL 2.0-7.7 [facility] Work Phone: [phone] Neutrophils/100 WBC (Bld) 80.5 % 47-70 [facility] Work Phone: [phone] Potassium [Moles/Vol] 4.1 mmol/L 3.5-5.1 [facility] Work Phone: Protein [Mass/Vol] 8.2 g/dL 6.4-8.2 [facility] Work Phone: [phone] Sodium [Moles/Vol] 131 mmol/L 136-145 [facility] Work Phone: [phone] WBC (Bld) [#/Vol] 8.0 10*3/uL 4.4-11.0 [facility] Work Phone: Blood erythrocytes count (nu mber/volume)on 06-14-2022 RBC (Bld) [#/Vol] 3.38 10*6/uL 4.6-6.2 [facility] Work Phone: [phone] Blood hemoglobin measurement (mass/volume)on 06-14-2022 Hemoglobin (Bld) [Mass/Vol] 13.9 g/dL 13.0-16.5 [facility] Work Phone: [phone] Blood lymphocytes/100 leukoc yteson 06-14-2022 Lymphocytes/100 WBC (Bld) 9.7 % 19-41 [facility] Work Phone: [phone] Blood monocytes/100 leukocyt eson 06-14-2022 Monocytes/100 WBC (Bld) 8.1 % 0-10 [facility] Work Phone: Blood platelet mean volumeon 06-14-2022 Platelet mean volume (Bld) [Entitic vol] 9.6 fL 6.2-12.0 [facility] Work Phone: Determination of erythrocyte mean corpuscular volume (MCV)on 06-14-2022 MCV (RBC) [Entitic vol] 111.2 fL 80-94 [facility] Work Phone: Hematocrit Auto (Bld) [Volum e fraction]on 06-14-2022 Hematocrit (Bld) [Volume fraction] 37.6 % 40-54 [facility] Work Phone: Laboratory - Chemistry and C hemistry - challengeon 06-14-2022 ALP [Catalytic activity/Vol] 176 U/L 45-117 [facility] Work Phone: ALT [Catalytic activity/Vol] 47 U/L 16-61 [facility] Work Phone: CO2 [Moles/Vol] 31.0 mmol/L 21.0-32.0 [facility] Work Phone: Globulin (S) [Mass/Vol] 5.0 g/dL 2.2-4.2 [facility] Work Phone: Urea nitrogen/Creatinine [Mass ratio] 6.9 mg/mg 10-20 [facility] Work Phone: [phone] Laboratory - Hematology and Cell countson 06-14-2022 Erythrocyte distribution width (RBC) [Entitic vol] 55.8 fL 35.1-43.9 [facility] Work Phone: Erythrocyte distribution width (RBC) [Ratio] 13.5 % 11.6-14.6 [facility] Work Phone: Immature granulocytes/100 WBC (Bld) 0.100 % 0.0-0.9 [facility] Work Phone: Comment on above: IG% - Immature Granu locytes (promyelocytes, myelocytes and metamyelocytes) > 1% indicates that a LEFT SHIFT is Present. MCH (RBC) [Entitic mass] 41.1 pg 27.0-32.0 [facility] Work Phone: Nucleated RBC/100 WBC (Bld) [Ratio] 0 % 0-5 [facility] Work Phone: MCHC Auto (RBC) [Mass/Vol]on 06-14-2022 MCHC (RBC) [Mass/Vol] 37.0 g/dL 32-36 [facility] Work Phone: No Panel Informationon 06-14 Estimated GFR (MDRD) Amer 60 mL/min >60 [facility] Work Phone: Comment on above: GFR Calc Estimated GFR (MDRD) Non-Af Amer 50 mL/min >60 [facility] Work Phone: Comment on above: Non- GFR Calc Miscellaneous Test See comment [facility] Work Phone: Comment on above: TEST RESULT LIMITSPh osphatidylethanol (PEth) Negative ng/mL NEGATIVEAnalyzed compound: PEth 16:0/18:1. 7-[id number]-3-phosphoethanol. Analysis performed by Liquid Chromatography with Tandem [...] developed and its performance characteristics determined by [employer]. It has not been cleared or approved by the Food and Drug Administration. TESTING PERFORMED AT [facility]. ORIGINAL REPORT ON FILE IN LAB CONTAINS ADDITIONAL TEST SITE INFORMATION. Platelets bldon 06-14-2022 Platelets (Bld) [#/Vol] 143 10*3/uL 150-450 [facility] Work Phone: Serum or plasma albumin lesley urement (mass/volume)on 06-14-2022 Albumin [Mass/Vol] 3.2 g/dL 3.2-5.0 [facility] Work Phone: Serum or plasma albumin/glob ulin mass ratioon 06-14-2022 Albumin/Globulin [Mass ratio] 0.6 {ratio} 0.9-2.4 [facility] Work Phone: Serum or plasma calcium leslye urement (mass/volume)on 06-14-2022 Calcium [Mass/Vol] 9.1 mg/dL 8.5-10.1 [facility] Work Phone: Serum or plasma creatinine m easurement (mass/volume)on 06-14-2022 Creatinine [Mass/Vol] 1.59 mg/dL 0.70-1.30 [facility] Work Phone: Comment on above: The validity of the calculated GFR & GFRAA in patients over 70 years has not been determined. Clinical correlation is essential. Serum or plasma urea nitroge n measurement (mass/volume)on 06-14-2022 Urea nitrogen [Mass/Vol] 11 mg/dL 7-18 [facility] Work Phone: Thin prep Papanicolaou smear with manual screeningon 06-14-2022 Thin prep Papanicolaou smear with manual screening 86 U/L 15-37 [facility] Work Phone: Thin prep Papanicolaou smear with manual screening 7 5-15 [facility] Work Phone: Basophil percentageon 2021 Bilirubin [Mass/Vol] 4.60 mg/dL 0.20-1.00 [facility] Work Phone: Comment on above: For patients on eltr ombopag therapy, use of Dimension [place] TBIL is not recommended. Chloride [Moles/Vol] 96 mmol/L 98-107 [facility] Work Phone: Glucose [Mass/Vol] 213 mg/dL 74-106 [facility] Work Phone: Comment on above: Glucose result great er than or equal to 200 mg/dLsuggests DIABETES MELLITUS per A.D.A. criteria. Potassium [Moles/Vol] 4.3 mmol/L 3.5-5.1 [facility] Work Phone: Protein [Mass/Vol] 7.5 g/dL 6.4-8.2 [facility] Work Phone: Sodium [Moles/Vol] 132 mmol/L 136-145 [facility] Work Phone: Laboratory - Chemistry and C hemistry - challengeon 05-23-2022 ALP [Catalytic activity/Vol] 224 U/L 45-117 [facility] Work Phone: ALT [Catalytic activity/Vol] 26 U/L 16-61 [facility] Work Phone: CO2 [Moles/Vol] 29.0 mmol/L 21.0-32.0 [facility] Work Phone: Globulin (S) [Mass/Vol] 4.6 g/dL 2.2-4.2 [facility] Work Phone: Urea nitrogen/Creatinine [Mass ratio] 10.5 mg/mg 10-20 [facility] Work Phone: No Panel Informationon 05-23 Estimated GFR (MDRD) Amer 88 mL/min >60 [facility] Work Phone: Comment on above: GFR Calc Estimated GFR (MDRD) Non-Af Amer 73 mL/min >60 [facility] Work Phone: Comment on above: Non- GFR Calc Serum or plasma albumin leslye urement (mass/volume)on 05-23-2022 Albumin [Mass/Vol] 2.9 g/dL 3.2-5.0 [facility] Work Phone: Serum or plasma albumin/glob ulin mass ratioon 05-23-2022 Albumin/Globulin [Mass ratio] 0.6 {ratio} 0.9-2.4 [facility] Work Phone: Serum or plasma calcium leslye urement (mass/volume)on 05-23-2022 Calcium [Mass/Vol] 8.8 mg/dL 8.5-10.1 [facility] Work Phone: Serum or plasma creatinine m easurement (mass/volume)on 05-23-2022 Creatinine [Mass/Vol] 1.14 mg/dL 0.70-1.30 [facility] Work Phone: Comment on above: The validity of the calculated GFR & GFRAA in patients over 70 years has not been determined. Clinical correlation is essential. Serum or plasma urea nitroge n measurement (mass/volume)on 05-23-2022 Urea nitrogen [Mass/Vol] 12 mg/dL 7-18 [facility] Work Phone: Thin prep Papanicolaou smear with manual screeningon 05-23-2022 Thin prep Papanicolaou smear with manual screening 49 U/L 15-37 [facility] Work Phone: Thin prep Papanicolaou smear with manual screening 7 5-15 [facility] Work Phone: INR in Blood by Coagulation assayon 05-20-2022 INR Coag (Bld) [Relative time] 1.8 {INR} [facility] Work Phone: Laboratory - Coagulationon 1 07-20-2021 PT Coag (PPP) [Time] 20.1 s 11.7-14.9 [facility] Work Phone: [phone] Absolute lymphocyte counton 05-14-2022 Lymphocytes Auto (Unsp spec) [#/Vol] 0.35 10*3/uL 0.83-4.51 [facility] Work Phone: [phone] Amorphous sediment detection in urine sediment by light microscopyon 05-14-2022 Amorphous sediment LM Ql (Urine sed) 1+ [facility] Work Phone: Basophil percentageon 2021 Basophil percentage 0 SEEN /hpf 0-5 [facility] Work Phone: Ammonia (P) [Moles/Vol] 105.0 umol/L 11-32 [facility] Work Phone: [phone] Basophils/100 WBC (Bld) 0.5 % 0-1 [facility] Work Phone: Bilirubin [Mass/Vol] 4.90 mg/dL 0.20-1.00 [facility] Work Phone: [phone] Comment on above: For patients on eltr ombopag therapy, use of Dimension [place] TBIL is not recommended. Chloride [Moles/Vol] 105 mmol/L 98-107 [facility] Work Phone: Eosinophils/100 WBC (Bld) 0.0 % 0-5 [facility] Work Phone: [phone] Glucose [Mass/Vol] 204 mg/dL 74-106 [facility] Work Phone: [phone] Comment on above: Glucose result great er than or equal to 200 mg/dLsuggests DIABETES MELLITUS per A.D.A. criteria. Neutrophils (Bld) [#/Vol] 5.7 10*3/uL 2.0-7.7 [facility] Work Phone: [phone] Neutrophils/100 WBC (Bld) 88.0 % 47-70 [facility] Work Phone: [phone] Potassium [Moles/Vol] 4.0 mmol/L 3.5-5.1 [facility] Work Phone: Protein [Mass/Vol] 8.5 g/dL 6.4-8.2 [facility] Work Phone: Sodium [Moles/Vol] 141 mmol/L 136-145 [facility] Work Phone: WBC (Bld) [#/Vol] 6.4 10*3/uL 4.4-11.0 [facility] Work Phone: Bilirubin Test strip Ql (U)o n 05-14-2022 Bilirubin Ql (U) 1 mg/dL Negative [facility] Work Phone: Comment on above: COLOR OF URINE MAY A FFECT DIPSTICK RESULTS. Blood erythrocytes count (nu mber/volume)on 05-14-2022 RBC (Bld) [#/Vol] 2.92 10*6/uL 4.6-6.2 [facility] Work Phone: Blood hemoglobin measurement (mass/volume)on 05-14-2022 Hemoglobin (Bld) [Mass/Vol] 12.3 g/dL 13.0-16.5 [facility] Work Phone: Blood lymphocytes/100 leukoc yteson 05-14-2022 Lymphocytes/100 WBC (Bld) 5.4 % 19-41 [facility] Work Phone: Blood monocytes/100 leukocyt eson 05-14-2022 Monocytes/100 WBC (Bld) 5.6 % 0-10 [facility] Work Phone: Blood platelet mean volumeon 05-14-2022 Platelet mean volume (Bld) [Entitic vol] 9.6 fL 6.2-12.0 [facility] Work Phone: Determination of erythrocyte mean corpuscular volume (MCV)on 05-14-2022 MCV (RBC) [Entitic vol] 114.4 fL 80-94 [facility] Work Phone: Hematocrit Auto (Bld) [Volum e fraction]on 05-14-2022 Hematocrit (Bld) [Volume fraction] 33.4 % 40-54 [facility] Work Phone: INR in Blood by Coagulation assayon 05-14-2022 INR Coag (Bld) [Relative time] 1.7 {INR} [facility] Work Phone: Ketones Test strip Ql (U)on 05-14-2022 Ketones Ql (U) 5 mg/dl Negative [facility] Work Phone: [phone] Laboratory - Chemistry and C hemistry - challengeon 05-14-2022 ALP [Catalytic activity/Vol] 246 U/L 45-117 [facility] Work Phone: [phone] ALT [Catalytic activity/Vol] 35 U/L 16-61 [facility] Work Phone: CO2 [Moles/Vol] 25.0 mmol/L 21.0-32.0 [facility] Work Phone: [phone] Globulin (S) [Mass/Vol] 5.0 g/dL 2.2-4.2 [facility] Work Phone: Urea nitrogen/Creatinine [Mass ratio] 11.0 mg/mg 10-20 [facility] Work Phone: [phone] Laboratory - Coagulationon 1 aPTT Coag (Bld) [Time] 38.6 s 24.1-36.2 [facility] Work Phone: PT Coag (PPP) [Time] 20.0 s 11.7-14.9 [facility] Work Phone: [phone] Laboratory - Hematology and Cell countson 05-14-2022 Erythrocyte distribution width (RBC) [Entitic vol] 61.7 fL 35.1-43.9 [facility] Work Phone: [phone] Erythrocyte distribution width (RBC) [Ratio] 14.6 % 11.6-14.6 [facility] Work Phone: [phone] Immature granulocytes/100 WBC (Bld) 0.500 % 0.0-0.9 [facility] Work Phone: Comment on above: IG% - Immature Granu locytes (promyelocytes, myelocytes and metamyelocytes) > 1% indicates that a LEFT SHIFT is Present. MCH (RBC) [Entitic mass] 42.1 pg 27.0-32.0 [facility] Work Phone: Nucleated RBC/100 WBC (Bld) [Ratio] 0 % 0-5 [facility] Work Phone: MCHC Auto (RBC) [Mass/Vol]on 05-14-2022 MCHC (RBC) [Mass/Vol] 36.8 g/dL 32-36 [facility] Work Phone: Mucus LM Ql (Urine sed)on Mucus Ql (Urine sed) 0 SEEN /hpf [facility] Work Phone: Nitrite Test strip Ql (U)on 05-14-2022 Nitrite Ql (U) Positive Negative [facility] Work Phone: No Panel Informationon 05-14 Estimated Creatinine Clearance Calc 55.42 ml/min [facility] Work Phone: Estimated GFR (MDRD) Amer 58 mL/min >60 [facility] Work Phone: Comment on above: GFR Calc Estimated GFR (MDRD) Non-Af Amer 48 mL/min >60 [facility] Work Phone: Comment on above: Non- GFR Calc Ethyl Alcohol Level < 3.0 mg/dL [facility] Work Phone: Comment on above: The serum:whole bloo d ethanol ratio is approximately 1.14and varies slightly with hematocrit. Medical Alcohol reference interval and critical value innon-tolerant individuals; 50 - 100 Impairment 100 Intoxication 100 - 250 Severe Poisoning 250 - 400 Deep/possible fatal coma Troponin I High Sensitivity 10 pg/mL 3.0-78.0 [facility] Work Phone: Comment on above: Please Note: New Chitra t Units and Gender Specific Reference Ranges. For more information see Policy Stat Procedure [place] High Sensitivity Troponin (TNIH) and attachments. Platelets bldon 05-14-2022 Platelets (Bld) [#/Vol] 100 10*3/uL 150-450 [facility] Work Phone: Protein Test strip Ql (U)on 05-14-2022 Protein Ql (U) 15 mg/dl Negative [facility] Work Phone: Serum or plasma albumin leslye urement (mass/volume)on 05-14-2022 Albumin [Mass/Vol] 3.5 g/dL 3.2-5.0 [facility] Work Phone: Serum or plasma albumin/glob ulin mass ratioon 05-14-2022 Albumin/Globulin [Mass ratio] 0.7 {ratio} 0.9-2.4 [facility] Work Phone: Serum or plasma calcium leslye urement (mass/volume)on 05-14-2022 Calcium [Mass/Vol] 9.2 mg/dL 8.5-10.1 [facility] Work Phone: Serum or plasma creatinine m easurement (mass/volume)on 05-14-2022 Creatinine [Mass/Vol] 1.63 mg/dL 0.70-1.30 [facility] Work Phone: Comment on above: The validity of the calculated GFR & GFRAA in patients over 70 years has not been determined. Clinical correlation is essential. Serum or plasma urea nitroge n measurement (mass/volume)on 05-14-2022 Urea nitrogen [Mass/Vol] 18 mg/dL 7-18 [facility] Work Phone: Squamous epithelial cells de tection in urine sediment by light microscopyon 05-14-2022 Epithelial cells.squamous LM Ql (Urine sed) 0 SEEN /hpf 0-5 [facility] Work Phone: Thin prep Papanicolaou smear with manual screeningon 05-14-2022 Thin prep Papanicolaou smear with manual screening 63 U/L 15-37 [facility] Work Phone: Thin prep Papanicolaou smear with manual screening 11 5-15 [facility] Work Phone: Urine blood detectionon 04-17 RBC Ql (U) Negative Negative [facility] Work Phone: RBC Ql (U) 0 SEEN /hpf 0-5 [facility] Work Phone: Urine clarityon 05-14-2022 Clarity (U) Sl. Cloudy Clear [facility] Work Phone: Urine color determinationon 05-14-2022 Color (U) Yellow Yellow [facility] Work Phone: Urine glucose detectionon Glucose Ql (U) Normal mg/dl Normal [facility] Work Phone: Urine leukocyte esterase det ection by dipstickon 05-14-2022 Leukocyte esterase Test strip Ql (U) 100 /ul Negative [facility] Work Phone: Urine pHon 05-14-2022 pH (U) 7.0 [pH] 5.0 - 8.0 [facility] Work Phone: Urine sediment bacteria coun t by microscopy (number/high power field)on 05-14-2022 Bacteria LM.HPF (Urine sed) [#/Area] 0 /[HPF] None Seen [facility] Work Phone: Urine specific gravity measu rementon 05-14-2022 Specific gravity (U) [Rel density] 1.015 1.002-1.030 [facility] Work Phone: Urobilinogen Auto test strip Ql (U)on 05-14-2022 Urobilinogen Ql (U) 4 mg/dl Normal [facility] Work Phone: Basophil percentageon 2021 Bilirubin [Mass/Vol] 5.80 mg/dL 0.20-1.00 [facility] Work Phone: Comment on above: For patients on eltr ombopag therapy, use of Dimension Bluebell TBIL is not recommended. Chloride [Moles/Vol] 101 mmol/L 98-107 [facility] Work Phone: Glucose [Mass/Vol] 120 mg/dL 74-106 [facility] Work Phone: Comment on above: Fasting Glucose resu lt from 100 to 125 mg/dL suggests IMPAIRED HOMEOSTASIS per A.D.A. criteria. Potassium [Moles/Vol] 4.4 mmol/L 3.5-5.1 [facility] Work Phone: Protein [Mass/Vol] 8.3 g/dL 6.4-8.2 [facility] Work Phone: [phone] Sodium [Moles/Vol] 135 mmol/L 136-145 [facility] Work Phone: INR in Blood by Coagulation assayon 04-21-2022 INR Coag (Bld) [Relative time] 1.8 {INR} [facility] Work Phone: Laboratory - Chemistry and C hemistry - challengeon 04-21-2022 ALP [Catalytic activity/Vol] 225 U/L 45-117 [facility] Work Phone: ALT [Catalytic activity/Vol] 40 U/L 16-61 [facility] Work Phone: CO2 [Moles/Vol] 27.0 mmol/L 21.0-32.0 [facility] Work Phone: Globulin (S) [Mass/Vol] 5.3 g/dL 2.2-4.2 [facility] Work Phone: [phone] Urea nitrogen/Creatinine [Mass ratio] 14.7 mg/mg 10-20 [facility] Work Phone: Laboratory - Coagulationon 1 PT Coag (PPP) [Time] 20.6 s 11.7-14.9 [facility] Work Phone: No Panel Informationon 04-21 Estimated GFR (MDRD) Amer 93 mL/min >60 [facility] Work Phone: Comment on above: GFR Calc Estimated GFR (MDRD) Non-Af Amer 77 mL/min >60 [facility] Work Phone: Comment on above: Non- GFR Calc Serum or plasma albumin leslye urement (mass/volume)on 04-21-2022 Albumin [Mass/Vol] 3.0 g/dL 3.2-5.0 [facility] Work Phone: Serum or plasma albumin/glob ulin mass ratioon 04-21-2022 Albumin/Globulin [Mass ratio] 0.6 {ratio} 0.9-2.4 [facility] Work Phone: Serum or plasma calcium leslye urement (mass/volume)on 04-21-2022 Calcium [Mass/Vol] 8.9 mg/dL 8.5-10.1 [facility] Work Phone: Serum or plasma creatinine m easurement (mass/volume)on 04-21-2022 Creatinine [Mass/Vol] 1.09 mg/dL 0.70-1.30 [facility] Work Phone: Comment on above: The validity of the calculated GFR & GFRAA in patients over 70 years has not been determined. Clinical correlation is essential. Serum or plasma urea nitroge n measurement (mass/volume)on 04-21-2022 Urea nitrogen [Mass/Vol] 16 mg/dL 7-18 [facility] Work Phone: Thin prep Papanicolaou smear with manual screeningon 04-21-2022 Thin prep Papanicolaou smear with manual screening 61 U/L 15-37 [facility] Work Phone: Thin prep Papanicolaou smear with manual screening 7 5-15 [facility] Work Phone: Basophil percentageon 2021 Bilirubin [Mass/Vol] 5.10 mg/dL 0.20-1.00 [facility] Work Phone: Comment on above: For patients on eltr ombopag therapy, use of Dimension Bluebell TBIL is not recommended. Chloride [Moles/Vol] 100 mmol/L 98-107 [facility] Work Phone: Glucose [Mass/Vol] 121 mg/dL 74-106 [facility] Work Phone: Comment on above: Fasting Glucose resu lt from 100 to 125 mg/dL suggests IMPAIRED HOMEOSTASIS per A.D.A. criteria. Potassium [Moles/Vol] 4.2 mmol/L 3.5-5.1 [facility] Work Phone: Protein [Mass/Vol] 7.9 g/dL 6.4-8.2 [facility] Work Phone: [phone] Sodium [Moles/Vol] 135 mmol/L 136-145 [facility] Work Phone: INR in Blood by Coagulation assayon 03-22-2022 INR Coag (Bld) [Relative time] 1.8 {INR} [facility] Work Phone: Laboratory - Chemistry and C hemistry - challengeon 03-22-2022 ALP [Catalytic activity/Vol] 209 U/L 45-117 [facility] Work Phone: ALT [Catalytic activity/Vol] 47 U/L 16-61 [facility] Work Phone: CO2 [Moles/Vol] 28.0 mmol/L 21.0-32.0 [facility] Work Phone: [phone] Globulin (S) [Mass/Vol] 4.8 g/dL 2.2-4.2 [facility] Work Phone: Urea nitrogen/Creatinine [Mass ratio] 9.2 mg/mg 10-20 [facility] Work Phone: Laboratory - Coagulationon 0 03-22-2022 PT Coag (PPP) [Time] 20.5 s 11.7-14.9 [facility] Work Phone: No Panel Informationon 03-22 Estimated GFR (MDRD) Amer 93 mL/min >60 [facility] Work Phone: Comment on above: GFR Calc Estimated GFR (MDRD) Non-Af Amer 77 mL/min >60 [facility] Work Phone: Comment on above: Non- GFR Calc Serum or plasma albumin leslye urement (mass/volume)on 03-22-2022 Albumin [Mass/Vol] 3.1 g/dL 3.2-5.0 [facility] Work Phone: Serum or plasma albumin/glob ulin mass ratioon 03-22-2022 Albumin/Globulin [Mass ratio] 0.6 {ratio} 0.9-2.4 [facility] Work Phone: Serum or plasma calcium leslye urement (mass/volume)on 03-22-2022 Calcium [Mass/Vol] 9.4 mg/dL 8.5-10.1 [facility] Work Phone: Serum or plasma creatinine m easurement (mass/volume)on 03-22-2022 Creatinine [Mass/Vol] 1.09 mg/dL 0.70-1.30 [facility] Work Phone: Comment on above: The validity of the calculated GFR & GFRAA in patients over 70 years has not been determined. Clinical correlation is essential. Serum or plasma urea nitroge n measurement (mass/volume)on 03-22-2022 Urea nitrogen [Mass/Vol] 10 mg/dL 7-18 [facility] Work Phone: Thin prep Papanicolaou smear with manual screeningon 03-22-2022 Thin prep Papanicolaou smear with manual screening 67 U/L 15-37 [facility] Work Phone: Thin prep Papanicolaou smear with manual screening 7 5-15 [facility] Work Phone: Absolute lymphocyte counton 03-04-2022 Lymphocytes Auto (Unsp spec) [#/Vol] 1.08 10*3/uL 0.83-4.51 [facility] Work Phone: Basophil percentageon 2021 Basophils/100 WBC (Bld) 0.7 % 0-1 [facility] Work Phone: Bilirubin [Mass/Vol] 4.20 mg/dL 0.20-1.00 [facility] Work Phone: Comment on above: For patients on eltr ombopag therapy, use of Dimension Bluebell TBIL is not recommended. Chloride [Moles/Vol] 99 mmol/L 98-107 [facility] Work Phone: Eosinophils/100 WBC (Bld) 3.0 % 0-5 [facility] Work Phone: [phone] Glucose [Mass/Vol] 94 mg/dL 74-106 [facility] Work Phone: [phone] Neutrophils (Bld) [#/Vol] 3.5 10*3/uL 2.0-7.7 [facility] Work Phone: [phone] Neutrophils/100 WBC (Bld) 64.6 % 47-70 [facility] Work Phone: [phone] Potassium [Moles/Vol] 4.0 mmol/L 3.5-5.1 [facility] Work Phone: [phone] Protein [Mass/Vol] 7.6 g/dL 6.4-8.2 [facility] Work Phone: [phone] Sodium [Moles/Vol] 135 mmol/L 136-145 [facility] Work Phone: WBC (Bld) [#/Vol] 5.4 10*3/uL 4.4-11.0 [facility] Work Phone: [phone] Blood erythrocytes count (nu mber/volume)on 03-04-2022 RBC (Bld) [#/Vol] 3.27 10*6/uL 4.6-6.2 [facility] Work Phone: [phone] Blood hemoglobin measurement (mass/volume)on 03-04-2022 Hemoglobin (Bld) [Mass/Vol] 12.9 g/dL 13.0-16.5 [facility] Work Phone: Blood lymphocytes/100 leukoc yteson 03-04-2022 Lymphocytes/100 WBC (Bld) 20.1 % 19-41 [facility] Work Phone: Blood monocytes/100 leukocyt eson 03-04-2022 Monocytes/100 WBC (Bld) 11.2 % 0-10 [facility] Work Phone: Blood platelet adequacy dete ction by light microscopyon 03-04-2022 Platelets LM Ql (Bld) MOD DEC ADEQ [facility] Work Phone: Blood platelet mean volumeon 03-04-2022 Platelet mean volume (Bld) [Entitic vol] 10.4 fL 6.2-12.0 [facility] Work Phone: Determination of erythrocyte mean corpuscular volume (MCV)on 03-04-2022 MCV (RBC) [Entitic vol] 107.6 fL 80-94 [facility] Work Phone: Hematocrit Auto (Bld) [Volum e fraction]on 03-04-2022 Hematocrit (Bld) [Volume fraction] 35.2 % 40-54 [facility] Work Phone: INR in Blood by Coagulation assayon 03-04-2022 INR Coag (Bld) [Relative time] 1.8 {INR} [facility] Work Phone: Laboratory - Chemistry and C hemistry - challengeon 03-04-2022 ALP [Catalytic activity/Vol] 204 U/L 45-117 [facility] Work Phone: ALT [Catalytic activity/Vol] 61 U/L 16-61 [facility] Work Phone: CO2 [Moles/Vol] 30.0 mmol/L 21.0-32.0 [facility] Work Phone: Globulin (S) [Mass/Vol] 4.8 g/dL 2.2-4.2 [facility] Work Phone: Urea nitrogen/Creatinine [Mass ratio] 11.1 mg/mg 10-20 [facility] Work Phone: Laboratory - Coagulationon 0 03-04-2022 PT Coag (PPP) [Time] 20.4 s 11.7-14.9 [facility] Work Phone: Laboratory - Hematology and Cell countson 03-04-2022 Erythrocyte distribution width (RBC) [Entitic vol] 55.9 fL 35.1-43.9 [facility] Work Phone: Erythrocyte distribution width (RBC) [Ratio] 14.2 % 11.6-14.6 [facility] Work Phone: Immature granulocytes/100 WBC (Bld) 0.400 % 0.0-0.9 [facility] Work Phone: Comment on above: IG% - Immature Granu locytes (promyelocytes, myelocytes and metamyelocytes) > 1% indicates that a LEFT SHIFT is Present. MCH (RBC) [Entitic mass] 39.4 pg 27.0-32.0 [facility] Work Phone: Nucleated RBC/100 WBC (Bld) [Ratio] 0 % 0-5 [facility] Work Phone: MCHC Auto (RBC) [Mass/Vol]on 03-04-2022 MCHC (RBC) [Mass/Vol] 36.6 g/dL 32-36 [facility] Work Phone: No Panel Informationon 03-04 Estimated GFR (MDRD) Amer 103 mL/min >60 [facility] Work Phone: Comment on above: GFR Calc Estimated GFR (MDRD) Non-Af Amer 85 mL/min >60 [facility] Work Phone: Comment on above: Non- GFR Calc Platelets bldon 03-04-2022 Platelets (Bld) [#/Vol] 93 10*3/uL 150-450 [facility] Work Phone: Serum or plasma albumin leslye urement (mass/volume)on 03-04-2022 Albumin [Mass/Vol] 2.8 g/dL 3.2-5.0 [facility] Work Phone: Serum or plasma albumin/glob ulin mass ratioon 03-04-2022 Albumin/Globulin [Mass ratio] 0.6 {ratio} 0.9-2.4 [facility] Work Phone: Serum or plasma calcium leslye urement (mass/volume)on 03-04-2022 Calcium [Mass/Vol] 8.5 mg/dL 8.5-10.1 [facility] Work Phone: Serum or plasma creatinine m easurement (mass/volume)on 03-04-2022 Creatinine [Mass/Vol] 1.00 mg/dL 0.70-1.30 [facility] Work Phone: Comment on above: The validity of the calculated GFR & GFRAA in patients over 70 years has not been determined. Clinical correlation is essential. Serum or plasma urea nitroge n measurement (mass/volume)on 03-04-2022 Urea nitrogen [Mass/Vol] 11 mg/dL 7-18 [facility] Work Phone: Thin prep Papanicolaou smear with manual screeningon 03-04-2022 Thin prep Papanicolaou smear with manual screening 87 U/L 15-37 [facility] Work Phone: Thin prep Papanicolaou smear with manual screening 6 5-15 [facility] Work Phone: Glucose Glucometer (BldC) [M ass/Vol]on 03-03-2022 Glucose [Mass/Vol] 85 mg/dL 74-106 [facility] Work Phone: Comment on above: MANAGEMENT OF PATIEN T CARE PER NURSING PROTOCOL Basophil percentageon 2021 Bilirubin [Mass/Vol] 4.40 mg/dL 0.20-1.00 [facility] Work Phone: Comment on above: For patients on eltr ombopag therapy, use of Dimension Bluebell TBIL is not recommended. Chloride [Moles/Vol] 103 mmol/L 98-107 [facility] Work Phone: Glucose [Mass/Vol] 137 mg/dL 74-106 [facility] Work Phone: Comment on above: Fasting Glucose resu lt greater than or equal to 126 mg/dL suggests DIABETES MELLITUS per A.D.A. criteria. Potassium [Moles/Vol] 4.4 mmol/L 3.5-5.1 [facility] Work Phone: Protein [Mass/Vol] 7.6 g/dL 6.4-8.2 [facility] Work Phone: Sodium [Moles/Vol] 135 mmol/L 136-145 [facility] Work Phone: INR in Blood by Coagulation assayon 02-14-2022 INR Coag (Bld) [Relative time] 1.8 {INR} [facility] Work Phone: Laboratory - Chemistry and C hemistry - challengeon 02-14-2022 ALP [Catalytic activity/Vol] 264 U/L 45-117 [facility] Work Phone: ALT [Catalytic activity/Vol] 47 U/L 16-61 [facility] Work Phone: CO2 [Moles/Vol] 28.0 mmol/L 21.0-32.0 [facility] Work Phone: [phone] Globulin (S) [Mass/Vol] 4.6 g/dL 2.2-4.2 [facility] Work Phone: Urea nitrogen/Creatinine [Mass ratio] 11.0 mg/mg 10-20 [facility] Work Phone: [phone] Laboratory - Coagulationon 0 02-14-2022 PT Coag (PPP) [Time] 20.4 s 11.7-14.9 [facility] Work Phone: No Panel Informationon 02-14 Estimated GFR (MDRD) Amer 114 mL/min >60 [facility] Work Phone: Comment on above: GFR Calc Estimated GFR (MDRD) Non-Af Amer 95 mL/min >60 [facility] Work Phone: Comment on above: Non- GFR Calc Serum or plasma albumin leslye urement (mass/volume)on 02-14-2022 Albumin [Mass/Vol] 3.0 g/dL 3.2-5.0 [facility] Work Phone: Serum or plasma albumin/glob ulin mass ratioon 02-14-2022 Albumin/Globulin [Mass ratio] 0.7 {ratio} 0.9-2.4 [facility] Work Phone: Serum or plasma calcium leslye urement (mass/volume)on 02-14-2022 Calcium [Mass/Vol] 8.7 mg/dL 8.5-10.1 [facility] Work Phone: Serum or plasma creatinine m easurement (mass/volume)on 02-14-2022 Creatinine [Mass/Vol] 0.91 mg/dL 0.70-1.30 [facility] Work Phone: Comment on above: The validity of the calculated GFR & GFRAA in patients over 70 years has not been determined. Clinical correlation is essential. Serum or plasma urea nitroge n measurement (mass/volume)on 02-14-2022 Urea nitrogen [Mass/Vol] 10 mg/dL 7-18 [facility] Work Phone: Thin prep Papanicolaou smear with manual screeningon 02-14-2022 Thin prep Papanicolaou smear with manual screening 62 U/L 15-37 [facility] Work Phone: Thin prep Papanicolaou smear with manual screening 4 5-15 [facility] Work Phone: Absolute lymphocyte counton 12-24-2021 Lymphocytes Auto (Unsp spec) [#/Vol] 0.87 10*3/uL 0.83-4.51 [facility] Work Phone: Basophil percentageon 2021 Ammonia (P) [Moles/Vol] 77.0 umol/L 11-32 [facility] Work Phone: [phone] Basophils/100 WBC (Bld) 0.9 % 0-1 [facility] Work Phone: [phone] Bilirubin [Mass/Vol] 4.30 mg/dL 0.20-1.00 [facility] Work Phone: Comment on above: For patients on eltr ombopag therapy, use of Dimension Bluebell TBIL is not recommended. Chloride [Moles/Vol] 101 mmol/L 98-107 [facility] Work Phone: [phone] Eosinophils/100 WBC (Bld) 3.4 % 0-5 [facility] Work Phone: [phone] Glucose [Mass/Vol] 125 mg/dL 74-106 [facility] Work Phone: Comment on above: Fasting Glucose resu lt from 100 to 125 mg/dL suggests IMPAIRED HOMEOSTASIS per A.D.A. criteria. Neutrophils (Bld) [#/Vol] 3.9 10*3/uL 2.0-7.7 [facility] Work Phone: [phone] Neutrophils/100 WBC (Bld) 70.4 % 47-70 [facility] Work Phone: [phone] Potassium [Moles/Vol] 4.0 mmol/L 3.5-5.1 [facility] Work Phone: [phone] Protein [Mass/Vol] 8.0 g/dL 6.4-8.2 [facility] Work Phone: Sodium [Moles/Vol] 134 mmol/L 136-145 [facility] Work Phone: [phone] WBC (Bld) [#/Vol] 5.6 10*3/uL 4.4-11.0 [facility] Work Phone: Blood erythrocytes count (nu mber/volume)on 12-24-2021 RBC (Bld) [#/Vol] 3.32 10*6/uL 4.6-6.2 [facility] Work Phone: Blood hemoglobin measurement (mass/volume)on 12-24-2021 Hemoglobin (Bld) [Mass/Vol] 13.4 g/dL 13.0-16.5 [facility] Work Phone: Blood lymphocytes/100 leukoc yteson 12-24-2021 Lymphocytes/100 WBC (Bld) 15.6 % 19-41 [facility] Work Phone: Blood monocytes/100 leukocyt eson 12-24-2021 Monocytes/100 WBC (Bld) 9.5 % 0-10 [facility] Work Phone: Blood platelet mean volumeon 12-24-2021 Platelet mean volume (Bld) [Entitic vol] 9.6 fL 6.2-12.0 [facility] Work Phone: Determination of erythrocyte mean corpuscular volume (MCV)on 12-24-2021 MCV (RBC) [Entitic vol] 112.7 fL 80-94 [facility] Work Phone: Erythrocyte sedimentation ra syed 12-24-2021 ESR (Bld) [Velocity] 37 mm/h 0-20 [facility] Work Phone: Hematocrit Auto (Bld) [Volum e fraction]on 12-24-2021 Hematocrit (Bld) [Volume fraction] 37.4 % 40-54 [facility] Work Phone: INR in Blood by Coagulation assayon 12-24-2021 INR Coag (Bld) [Relative time] 1.7 {INR} [facility] Work Phone: Laboratory - Chemistry and C hemistry - challengeon 12-24-2021 ALP [Catalytic activity/Vol] 231 U/L 45-117 [facility] Work Phone: ALT [Catalytic activity/Vol] 47 U/L 16-61 [facility] Work Phone: [phone] CO2 [Moles/Vol] 27.0 mmol/L 21.0-32.0 [facility] Work Phone: Globulin (S) [Mass/Vol] 5.1 g/dL 2.2-4.2 [facility] Work Phone: Urea nitrogen/Creatinine [Mass ratio] 14.8 mg/mg 10-20 [facility] Work Phone: Laboratory - Coagulationon 0 12-24-2021 PT Coag (PPP) [Time] 19.3 s 11.7-14.9 [facility] Work Phone: Laboratory - Hematology and Cell countson 12-24-2021 Erythrocyte distribution width (RBC) [Entitic vol] 53.7 fL 35.1-43.9 [facility] Work Phone: Erythrocyte distribution width (RBC) [Ratio] 12.9 % 11.6-14.6 [facility] Work Phone: Immature granulocytes/100 WBC (Bld) 0.200 % 0.0-0.9 [facility] Work Phone: Comment on above: IG% - Immature Granu locytes (promyelocytes, myelocytes and metamyelocytes) > 1% indicates that a LEFT SHIFT is Present. MCH (RBC) [Entitic mass] 40.4 pg 27.0-32.0 [facility] Work Phone: Nucleated RBC/100 WBC (Bld) [Ratio] 0 % 0-5 [facility] Work Phone: MCHC Auto (RBC) [Mass/Vol]on 12-24-2021 MCHC (RBC) [Mass/Vol] 35.8 g/dL 32-36 [facility] Work Phone: No Panel Informationon 12-24 Estimated GFR (MDRD) Amer 120 mL/min >60 [facility] Work Phone: Comment on above: GFR Calc Estimated GFR (MDRD) Non-Af Amer 99 mL/min >60 [facility] Work Phone: Comment on above: Non- GFR Calc Platelets bldon 12-24-2021 Platelets (Bld) [#/Vol] 105 10*3/uL 150-450 [facility] Work Phone: Serum or plasma C reactive p rotein measurement (mass/volume)on 12-24-2021 CRP [Mass/Vol] 3.33 mg/L 0.0-3.0 [facility] Work Phone: Comment on above: C-Reactive Protein ( CRP) provides useful information for thediagnosis, therapy and monitoring of inflammatory processesand associated diseases. For the evaluation of Relative Riskfor Cardiovascular Disease, a High Sensitivity CRP (HSCRP)should be ordered. Serum or plasma albumin leslye urement (mass/volume)on 12-24-2021 Albumin [Mass/Vol] 2.9 g/dL 3.2-5.0 [facility] Work Phone: Serum or plasma albumin/glob ulin mass ratioon 12-24-2021 Albumin/Globulin [Mass ratio] 0.6 {ratio} 0.9-2.4 [facility] Work Phone: Serum or plasma calcium leslye urement (mass/volume)on 12-24-2021 Calcium [Mass/Vol] 8.9 mg/dL 8.5-10.1 [facility] Work Phone: Serum or plasma creatinine m easurement (mass/volume)on 12-24-2021 Creatinine [Mass/Vol] 0.88 mg/dL 0.70-1.30 [facility] Work Phone: Comment on above: The validity of the calculated GFR & GFRAA in patients over 70 years has not been determined. Clinical correlation is essential. Serum or plasma urea nitroge n measurement (mass/volume)on 12-24-2021 Urea nitrogen [Mass/Vol] 13 mg/dL 7-18 [facility] Work Phone: Thin prep Papanicolaou smear with manual screeningon 12-24-2021 Thin prep Papanicolaou smear with manual screening 66 U/L 15-37 [facility] Work Phone: Thin prep Papanicolaou smear with manual screening 6 5-15 [facility] Work Phone: Thin prep Papanicolaou smear with manual screening 242 U/L 87-241 [facility] Work Phone: Basophil percentageon 2021 Chloride [Moles/Vol] 99 mmol/L 98-107 [facility] Work Phone: Glucose [Mass/Vol] 137 mg/dL 74-106 [facility] Work Phone: Comment on above: Fasting Glucose resu lt greater than or equal to 126 mg/dL suggests DIABETES MELLITUS per A.D.A. criteria. Potassium [Moles/Vol] 4.7 mmol/L 3.5-5.1 [facility] Work Phone: Sodium [Moles/Vol] 133 mmol/L 136-145 [facility] Work Phone: Laboratory - Chemistry and C hemistry - challengeon 12-08-2021 CO2 [Moles/Vol] 28.0 mmol/L 21.0-32.0 [facility] Work Phone: Urea nitrogen/Creatinine [Mass ratio] 22.4 mg/mg 10-20 [facility] Work Phone: Laboratory - Hematology and Cell countson 12-08-2021 HbA1c (Bld) [Mass fraction] 4.3 % 4.2-6.3 [facility] Work Phone: No Panel Informationon 12-08 Insulin Level 118.4 mU/L 2.6-37.6 [facility] Work Phone: Comment on above: Please Note: INSULIN METHOD & REFERENCE RANGE CHANGEEffective 07/27/2017. Estimated GFR (MDRD) Amer 124 mL/min >60 [facility] Work Phone: Comment on above: GFR Calc Estimated GFR (MDRD) Non-Af Amer 102 mL/min >60 [facility] Work Phone: Comment on above: Non- GFR Calc Serum or plasma calcium leslye urement (mass/volume)on 12-08-2021 Calcium [Mass/Vol] 8.9 mg/dL 8.5-10.1 [facility] Work Phone: Serum or plasma creatinine m easurement (mass/volume)on 12-08-2021 Creatinine [Mass/Vol] 0.85 mg/dL 0.70-1.30 [facility] Work Phone: Comment on above: The validity of the calculated GFR & GFRAA in patients over 70 years has not been determined. Clinical correlation is essential. Serum or plasma urea nitroge n measurement (mass/volume)on 12-08-2021 Urea nitrogen [Mass/Vol] 19 mg/dL 7-18 [facility] Work Phone: Thin prep Papanicolaou smear with manual screeningon 12-08-2021 Thin prep Papanicolaou smear with manual screening 6 5-15 [facility] Work Phone: Whole blood hemoglobin A1c/t otal hemoglobin ratio (mass fraction)on 12-08-2021 HbA1c (Bld) [Mass fraction] 4.2 % 3.8-5.6 [facility] Work Phone: Comment on above: Normal < 5.7 % Predi abetic 5.7 - 6.4 % Diabetic >or= 6.5 % Please note range changes. Glucose Glucometer (BldC) [M ass/Vol]on 12-02-2021 Glucose [Mass/Vol] 109 mg/dL 74-106 [facility] Work Phone: Comment on above: MANAGEMENT OF PATIEN T CARE PER NURSING PROTOCOL Absolute lymphocyte counton 11-29-2021 Lymphocytes Auto (Unsp spec) [#/Vol] 1.07 10*3/uL 0.83-4.51 [facility] Work Phone: Basophil percentageon 2021 Ammonia (P) [Moles/Vol] 56.0 umol/L 11-32 [facility] Work Phone: Basophils/100 WBC (Bld) 0.7 % 0-1 [facility] Work Phone: Bilirubin [Mass/Vol] 3.90 mg/dL 0.20-1.00 [facility] Work Phone: Comment on above: For patients on eltr ombopag therapy, use of Dimension Bluebell TBIL is not recommended. Chloride [Moles/Vol] 103 mmol/L 98-107 [facility] Work Phone: Eosinophils/100 WBC (Bld) 5.1 % 0-5 [facility] Work Phone: Glucose [Mass/Vol] 143 mg/dL 74-106 [facility] Work Phone: Comment on above: Fasting Glucose resu lt greater than or equal to 126 mg/dL suggests DIABETES MELLITUS per A.D.A. criteria. Neutrophils (Bld) [#/Vol] 3.7 10*3/uL 2.0-7.7 [facility] Work Phone: Neutrophils/100 WBC (Bld) 63.4 % 47-70 [facility] Work Phone: Potassium [Moles/Vol] 4.5 mmol/L 3.5-5.1 [facility] Work Phone: Protein [Mass/Vol] 7.2 g/dL 6.4-8.2 [facility] Work Phone: [phone] Sodium [Moles/Vol] 138 mmol/L 136-145 [facility] Work Phone: [phone] WBC (Bld) [#/Vol] 5.9 10*3/uL 4.4-11.0 [facility] Work Phone: Blood erythrocytes count (nu mber/volume)on 11-29-2021 RBC (Bld) [#/Vol] 2.73 10*6/uL 4.6-6.2 [facility]: Blood hemoglobin measurement (mass/volume)on 11-29-2021 Hemoglobin (Bld) [Mass/Vol] 11.3 g/dL 13.0-16.5 [facility] Work Phone: Blood lymphocytes/100 leukoc yteson 11-29-2021 Lymphocytes/100 WBC (Bld) 18.3 % 19-41 [facility] Work Phone: Blood monocytes/100 leukocyt eson 11-29-2021 Monocytes/100 WBC (Bld) 11.8 % 0-10 [facility] Work Phone: Blood platelet mean volumeon 11-29-2021 Platelet mean volume (Bld) [Entitic vol] 9.3 fL 6.2-12.0 [facility] Work Phone: Determination of erythrocyte mean corpuscular volume (MCV)on 11-29-2021 MCV (RBC) [Entitic vol] 116.1 fL 80-94 [facility] Work Phone: Direct bilirubinon 2 Bilirubin.direct [Mass/Vol] 1.80 mg/dL 0.00-0.30 [facility] Work Phone: Hematocrit Auto (Bld) [Volum e fraction]on 11-29-2021 Hematocrit (Bld) [Volume fraction] 31.7 % 40-54 [facility] Work Phone: INR in Blood by Coagulation assayon 11-29-2021 INR Coag (Bld) [Relative time] 1.8 {INR} [facility] Work Phone: Laboratory - Chemistry and C hemistry - challengeon 11-29-2021 ALP [Catalytic activity/Vol] 253 U/L 45-117 [facility] Work Phone: ALT [Catalytic activity/Vol] 68 U/L 16-61 [facility] Work Phone: CO2 [Moles/Vol] 29.0 mmol/L 21.0-32.0 [facility] Work Phone: Globulin (S) [Mass/Vol] 4.6 g/dL 2.2-4.2 [facility] Work Phone: Urea nitrogen/Creatinine [Mass ratio] 18.4 mg/mg 10-20 [facility] Work Phone: Laboratory - Coagulationon 0 11-29-2021 PT Coag (PPP) [Time] 20.7 s 11.7-14.9 [facility] Work Phone: Laboratory - Hematology and Cell countson 11-29-2021 Erythrocyte distribution width (RBC) [Entitic vol] 61.1 fL 35.1-43.9 [facility] Work Phone: Erythrocyte distribution width (RBC) [Ratio] 14.2 % 11.6-14.6 [facility] Work Phone: Immature granulocytes/100 WBC (Bld) 0.700 % 0.0-0.9 [facility] Work Phone: Comment on above: IG% - Immature Granu locytes (promyelocytes, myelocytes and metamyelocytes) > 1% indicates that a LEFT SHIFT is Present. MCH (RBC) [Entitic mass] 41.4 pg 27.0-32.0 [facility] Work Phone: Nucleated RBC/100 WBC (Bld) [Ratio] 0 % 0-5 [facility] Work Phone: MCHC Auto (RBC) [Mass/Vol]on 11-29-2021 MCHC (RBC) [Mass/Vol] 35.6 g/dL 32-36 [facility] Work Phone: No Panel Informationon 11-29 Estimated GFR (MDRD) Amer 113 mL/min >60 [facility] Work Phone: Comment on above: GFR Calc Estimated GFR (MDRD) Non-Af Amer 93 mL/min >60 [facility] Work Phone: Comment on above: Non- GFR Calc Platelets bldon 11-29-2021 Platelets (Bld) [#/Vol] 111 10*3/uL 150-450 [facility] Work Phone: Serum or plasma albumin leslye urement (mass/volume)on 11-29-2021 Albumin [Mass/Vol] 2.6 g/dL 3.2-5.0 [facility] Work Phone: Serum or plasma albumin/glob ulin mass ratioon 11-29-2021 Albumin/Globulin [Mass ratio] 0.6 {ratio} 0.9-2.4 [facility] Work Phone: Serum or plasma calcium leslye urement (mass/volume)on 11-29-2021 Calcium [Mass/Vol] 8.8 mg/dL 8.5-10.1 [facility] Work Phone: Serum or plasma creatinine m easurement (mass/volume)on 11-29-2021 Creatinine [Mass/Vol] 0.92 mg/dL 0.70-1.30 [facility] Work Phone: Comment on above: The validity of the calculated GFR & GFRAA in patients over 70 years has not been determined. Clinical correlation is essential. Serum or plasma urea nitroge n measurement (mass/volume)on 11-29-2021 Urea nitrogen [Mass/Vol] 17 mg/dL 7-18 [facility] Work Phone: Thin prep Papanicolaou smear with manual screeningon 11-29-2021 Thin prep Papanicolaou smear with manual screening 90 U/L 15-37 [facility] Work Phone: Thin prep Papanicolaou smear with manual screening 6 5-15 [facility] Work Phone: Basophil percentageon 2021 Basophil percentage 0 SEEN /hpf 0-5 [facility] Work Phone: Bilirubin Test strip Ql (U)o n 11-19-2021 Bilirubin Ql (U) Negative Negative [facility] Work Phone: Ketones Test strip Ql (U)on 11-19-2021 Ketones Ql (U) Negative Negative [facility] Work Phone: Mucus LM Ql (Urine sed)on Mucus Ql (Urine sed) 0 SEEN /hpf [facility] Work Phone: Nitrite Test strip Ql (U)on 11-19-2021 Nitrite Ql (U) Negative Negative [facility] Work Phone: No Panel Informationon 11-19 Prostate Specific Antigen Screen 0.10 ng/mL 0.00-4.00 [facility] Work Phone: Comment on above: This test was perfor med using the TPSA assay method for [employer] chemistry system. Values obtained with differentassay methods cannot be used interchangably.When changing PSA assays in the course of monitoring apatient, additional sequential testing should be carriedout to confirm baseline values. Protein Test strip Ql (U)on 11-19-2021 Protein Ql (U) Negative Negative [facility] Work Phone: Squamous epithelial cells de tection in urine sediment by light microscopyon 11-19-2021 Epithelial cells.squamous LM Ql (Urine sed) 0 SEEN /hpf 0-5 [facility] Work Phone: Urine blood detectionon RBC Ql (U) Negative Negative [facility] Work Phone: RBC Ql (U) 0 SEEN /hpf 0-5 [facility] Work Phone: Urine clarityon 11-19-2021 Clarity (U) Clear Clear [facility] Work Phone: Urine color determinationon 11-19-2021 Color (U) Yellow Yellow [facility] Work Phone: Urine glucose detectionon Glucose Ql (U) Normal mg/dl Normal [facility] Work Phone: Urine leukocyte esterase det ection by dipstickon 11-19-2021 Leukocyte esterase Test strip Ql (U) Negative Negative [facility] Work Phone: Urine pHon 11-19-2021 pH (U) 6.0 [pH] 5.0 - 8.0 [facility] Work Phone: Urine sediment bacteria coun t by microscopy (number/high power field)on 11-19-2021 Bacteria LM.HPF (Urine sed) [#/Area] 0 /[HPF] None Seen [facility] Work Phone: Urine specific gravity measu rementon 11-19-2021 Specific gravity (U) [Rel density] 1.010 1.002-1.030 [facility] Work Phone: Urobilinogen Auto test strip Ql (U)on 11-19-2021 Urobilinogen Ql (U) Normal mg/dl Normal [facility] Work Phone: Basophil percentageon 2021 Bilirubin [Mass/Vol] 3.60 mg/dL 0.20-1.00 [facility] Work Phone: Comment on above: For patients on eltr ombopag therapy, use of Dimension Bluebell TBIL is not recommended. Chloride [Moles/Vol] 104 mmol/L 98-107 [facility] Work Phone: Glucose [Mass/Vol] 123 mg/dL 74-106 [facility] Work Phone: Comment on above: Fasting Glucose resu lt from 100 to 125 mg/dL suggests IMPAIRED HOMEOSTASIS per A.D.A. criteria. Potassium [Moles/Vol] 4.9 mmol/L 3.5-5.1 [facility] Work Phone: Protein [Mass/Vol] 7.3 g/dL 6.4-8.2 [facility] Work Phone: Sodium [Moles/Vol] 137 mmol/L 136-145 [facility] Work Phone: INR in Blood by Coagulation assayon 11-12-2021 INR Coag (Bld) [Relative time] 1.7 {INR} [facility] Work Phone: Laboratory - Chemistry and C hemistry - challengeon 11-12-2021 ALP [Catalytic activity/Vol] 275 U/L 45-117 [facility] Work Phone: ALT [Catalytic activity/Vol] 57 U/L 16-61 [facility] Work Phone: CO2 [Moles/Vol] 29.0 mmol/L 21.0-32.0 [facility] Work Phone: Globulin (S) [Mass/Vol] 4.7 g/dL 2.2-4.2 [facility] Work Phone: Urea nitrogen/Creatinine [Mass ratio] 30.4 mg/mg 10-20 [facility] Work Phone: Laboratory - Coagulationon 0 11-12-2021 PT Coag (PPP) [Time] 19.7 s 11.7-14.9 [facility] Work Phone: No Panel Informationon 11-12 Estimated GFR (MDRD) Amer 100 mL/min >60 [facility] Work Phone: Comment on above: GFR Calc Estimated GFR (MDRD) Non-Af Amer 83 mL/min >60 [facility] Work Phone: Comment on above: Non- GFR Calc Serum or plasma albumin leslye urement (mass/volume)on 11-12-2021 Albumin [Mass/Vol] 2.6 g/dL 3.2-5.0 [facility] Work Phone: Serum or plasma albumin/glob ulin mass ratioon 11-12-2021 Albumin/Globulin [Mass ratio] 0.6 {ratio} 0.9-2.4 [facility] Work Phone: Serum or plasma calcium leslye urement (mass/volume)on 11-12-2021 Calcium [Mass/Vol] 8.9 mg/dL 8.5-10.1 [facility] Work Phone: Serum or plasma creatinine m easurement (mass/volume)on 11-12-2021 Creatinine [Mass/Vol] 1.02 mg/dL 0.70-1.30 [facility] Work Phone: Comment on above: The validity of the calculated GFR & GFRAA in patients over 70 years has not been determined. Clinical correlation is essential. Serum or plasma urea nitroge n measurement (mass/volume)on 11-12-2021 Urea nitrogen [Mass/Vol] 31 mg/dL 7-18 [facility] Work Phone: Thin prep Papanicolaou smear with manual screeningon 11-12-2021 Thin prep Papanicolaou smear with manual screening 69 U/L 15-37 [facility] Work Phone: Thin prep Papanicolaou smear with manual screening 4 5-15 [facility] Work Phone: Absolute lymphocyte counton 10-27-2021 Lymphocytes Auto (Unsp spec) [#/Vol] 1.08 10*3/uL 0.83-4.51 [facility] Work Phone: Basophil percentageon 2021 Basophils/100 WBC (Bld) 1.1 % 0-1 [facility] Work Phone: Bilirubin [Mass/Vol] 3.60 mg/dL 0.20-1.00 [facility] Work Phone: Comment on above: For patients on eltr ombopag therapy, use of Dimension Bluebell TBIL is not recommended. Chloride [Moles/Vol] 103 mmol/L 98-107 [facility] Work Phone: Eosinophils/100 WBC (Bld) 5.2 % 0-5 [facility] Work Phone: Glucose [Mass/Vol] 126 mg/dL 74-106 [facility] Work Phone: [phone] Comment on above: Fasting Glucose resu lt greater than or equal to 126 mg/dL suggests DIABETES MELLITUS per A.D.A. criteria. Neutrophils (Bld) [#/Vol] 3.5 10*3/uL 2.0-7.7 [facility] Work Phone: Neutrophils/100 WBC (Bld) 63.3 % 47-70 [facility] Work Phone: Potassium [Moles/Vol] 4.2 mmol/L 3.5-5.1 [facility] Work Phone: Protein [Mass/Vol] 7.6 g/dL 6.4-8.2 [facility] Work Phone: Sodium [Moles/Vol] 136 mmol/L 136-145 [facility] Work Phone: WBC (Bld) [#/Vol] 5.6 10*3/uL 4.4-11.0 [facility] Work Phone: Bilirubin Test strip Ql (U)o n 10-27-2021 Bilirubin Ql (U) Negative Negative [facility] Work Phone: Blood erythrocytes count (nu mber/volume)on 10-27-2021 RBC (Bld) [#/Vol] 2.92 10*6/uL 4.6-6.2 [facility] Work Phone: Blood hemoglobin measurement (mass/volume)on 10-27-2021 Hemoglobin (Bld) [Mass/Vol] 11.6 g/dL 13.0-16.5 [facility] Work Phone: Blood lymphocytes/100 leukoc yteson 10-27-2021 Lymphocytes/100 WBC (Bld) 19.4 % 19-41 [facility] Work Phone: Blood monocytes/100 leukocyt eson 10-27-2021 Monocytes/100 WBC (Bld) 10.6 % 0-10 [facility] Work Phone: Blood platelet mean volumeon 10-27-2021 Platelet mean volume (Bld) [Entitic vol] 10.5 fL 6.2-12.0 [facility] Work Phone: Determination of erythrocyte mean corpuscular volume (MCV)on 10-27-2021 MCV (RBC) [Entitic vol] 111.3 fL 80-94 [facility] Work Phone: Dilute Junior's viper venom timeon 10-27-2021 dRVVT Coag (PPP) [Time] 37.9 s [facility] Work Phone: Hematocrit Auto (Bld) [Volum e fraction]on 10-27-2021 Hematocrit (Bld) [Volume fraction] 32.5 % 40-54 [facility] Work Phone: INR in Blood by Coagulation assayon 10-27-2021 INR Coag (Bld) [Relative time] 1.7 {INR} [facility] Work Phone: Ketones Test strip Ql (U)on 10-27-2021 Ketones Ql (U) Negative Negative [facility] Work Phone: Laboratory - Chemistry and C hemistry - challengeon 10-27-2021 ALP [Catalytic activity/Vol] 268 U/L 45-117 [facility] Work Phone: ALT [Catalytic activity/Vol] 69 U/L 16-61 [facility] Work Phone: CO2 [Moles/Vol] 28.0 mmol/L 21.0-32.0 [facility] Work Phone: Globulin (S) [Mass/Vol] 4.8 g/dL 2.2-4.2 [facility] Work Phone: Urea nitrogen/Creatinine [Mass ratio] 15.0 mg/mg 10-20 [facility] Work Phone: Laboratory - Coagulationon 0 10-27-2021 aPTT Coag (Bld) [Time] 43.8 s 24.1-36.2 [facility] Work Phone: PT Coag (PPP) [Time] 19.5 s 11.7-14.9 [facility] Work Phone: Laboratory - Hematology and Cell countson 10-27-2021 Erythrocyte distribution width (RBC) [Entitic vol] 54.0 fL 35.1-43.9 [facility] Work Phone: Erythrocyte distribution width (RBC) [Ratio] 13.2 % 11.6-14.6 [facility] Work Phone: Immature granulocytes/100 WBC (Bld) 0.400 % 0.0-0.9 [facility] Work Phone: Comment on above: IG% - Immature Granu locytes (promyelocytes, myelocytes and metamyelocytes) > 1% indicates that a LEFT SHIFT is Present. MCH (RBC) [Entitic mass] 39.7 pg 27.0-32.0 [facility] Work Phone: Nucleated RBC/100 WBC (Bld) [Ratio] 0 % 0-5 [facility] Work Phone: Laboratory - Miscellaneous t estson 10-27-2021 Service comment (Unsp spec) [Interp] Comment [facility] Work Phone: Comment on above: Results do not indic ate the presence of a LupusAnticoagulant: abnormal high screening results (PTT-LA,dRVVT, mixing studies), may be due to medication (heparin,warfarin, aspirin), Factor inhibitors, anticardiolipinantibodies, or poor specimen integrity.Performed at: - [address] [id number] Director: Ermelinda Birmingham MD, Phone: [phone] MCHC Auto (RBC) [Mass/Vol]on 10-27-2021 MCHC (RBC) [Mass/Vol] 35.7 g/dL 32-36 [facility] Work Phone: Nitrite Test strip Ql (U)on 10-27-2021 Nitrite Ql (U) Negative Negative [facility] Work Phone: No Panel Informationon 10-27 Estimated GFR (MDRD) Amer 103 mL/min >60 [facility] Work Phone: Comment on above: GFR Calc Estimated GFR (MDRD) Non-Af Amer 85 mL/min >60 [facility] Work Phone: Comment on above: Non- GFR Calc Miscellaneous Test [facility]: Comment on above: TEST RESULT LIMITSHe red.Hemochromatosis, DNA Hereditary Hemochromatosis Results: c.845G>A (p.Mbo035Pqn) - Not Detected c.187C>G (p.Xla09Tcq) - Detected, heterozygous c.193A>T (p.Wns23Vrq) - Not Detected Not associated with increased [...] for patients who are homozygous for c.845G>A (p.Nqx856Jhw) and have yet to experience clinical symptoms.Comments: The most common HFE variants associated with hereditary hemochromatosis are c.845G>A (p.Dzp366Wqk), c.187C>G (p.Vhl06Nhy), c.193A>T (p.Ntv54Jlj). While patients homozygous for c.845G>A (p.Fcg420Jzx) are the most likely to present clinical symptoms, less than 10% develop clinically significant iron overload with tissue and organ damage. Genetic counseling is recommended to discuss the potential clinical implications of positive results, as well as recommendations for testing family members. Genetic Coordinators are available for health care providers to discuss results at [phone] Test Details: Three variants analyzed: c.845G>A (p.Pam244Jrb), commonly referred to as C282Y c.187C>G (p.Gua58Ztn), commonly referred to as H63D c.193A>T (p.Kmu35Uqf), commonly referred to as B62SBgdgdeg/Limitations: DNA Analysis of the HFE gene (NM_000410.4) [...] developed and its performance characteristics determined by [employer]. It has not been cleared or approved by the Food and Drug Administration.References:Justin BR, Nestor PC, Anmol KV, Mauro LW, Alen ; [employer]. Diagnosis and management of hemochromatosis: 2011 practice guideline by the [employer] Liver [employer]. Hepatology. 2010;54(1):328-43. doi: 10.1002/hep.15101. PMID: 99004611; PMCID: [id number].Rose G, Rolanda P, Tam DW, Bryon H, Jacque O, Slade S, Balta I, Musa M, Madie S. EMQN best practice guidelines for the molecular genetic diagnosis of hereditary hemochromatosis (HH). Eur J Hum Tori. 2016 Oct;24(4):479-95. doi: 10.1038/ejhg.2015.128. Epub 2014Jan 21. PMID: 42822304; PMCID: [id number]. Rachna Marquez, PhD, Katherine Allan, PhD, Isha Crockett, PhD, Earl Deleon, PhD, BROOKE Gómez PhD, Tyson Morrow, PhD, Wyatt Chappell, PhD, [facility] TESTING PERFORMED AT [facility]. ORIGINAL REPORT ON FILE IN LAB CONTAINS ADDITIONAL TEST SITE INFORMATION. Miscellaneous Test Comment MAILED SPECIMEN [facility] Work Phone: Platelets bldon 10-27-2021 Platelets (Bld) [#/Vol] 108 10*3/uL 150-450 [facility] Work Phone: Protein Test strip Ql (U)on 10-27-2021 Protein Ql (U) Negative Negative [facility] Work Phone: Serum or plasma albumin leslye urement (mass/volume)on 10-27-2021 Albumin [Mass/Vol] 2.8 g/dL 3.2-5.0 [facility] Work Phone: Serum or plasma albumin/glob ulin mass ratioon 10-27-2021 Albumin/Globulin [Mass ratio] 0.6 {ratio} 0.9-2.4 [facility] Work Phone: Serum or plasma calcium leslye urement (mass/volume)on 10-27-2021 Calcium [Mass/Vol] 9.2 mg/dL 8.5-10.1 [facility] Work Phone: Serum or plasma creatinine m easurement (mass/volume)on 10-27-2021 Creatinine [Mass/Vol] 1.00 mg/dL 0.70-1.30 [facility] Work Phone: Comment on above: The validity of the calculated GFR & GFRAA in patients over 70 years has not been determined. Clinical correlation is essential. Serum or plasma urea nitroge n measurement (mass/volume)on 10-27-2021 Urea nitrogen [Mass/Vol] 15 mg/dL 7-18 [facility] Work Phone: Thin prep Papanicolaou smear with manual screeningon 10-27-2021 Thin prep Papanicolaou smear with manual screening 88 U/L 15-37 [facility] Work Phone: Thin prep Papanicolaou smear with manual screening 5 5-15 [facility] Work Phone: Thin prep Papanicolaou smear with manual screening 45.2 sec [facility] Work Phone: Thin prep Papanicolaou smear with manual screening 0.71 Ratio [facility] Work Phone: Thin prep Papanicolaou smear with manual screening 49.0 sec [facility] Work Phone: Thin prep Papanicolaou smear with manual screening Comment: [facility] Work Phone: Comment on above: No lupus anticoagula nt was detected. Thrombin time in platelet po or plasmaon 10-27-2021 Thrombin time Coag (PPP) [Time] 20.3 sec [facility] Work Phone: Urine blood detectionon 10-15 RBC Ql (U) Negative Negative [facility] Work Phone: Urine clarityon 10-27-2021 Clarity (U) Clear Clear [facility] Work Phone: Urine color determinationon 10-27-2021 Color (U) Yellow Yellow [facility] Work Phone: Urine creatinine measurement (mass/volume)on 10-27-2021 Creatinine (U) [Mass/Vol] 31.10 mg/dL NO RANGE EST. [facility] Work Phone: Urine glucose detectionon Glucose Ql (U) Normal mg/dl Normal [facility] Work Phone: Urine leukocyte esterase det ection by dipstickon 10-27-2021 Leukocyte esterase Test strip Ql (U) Negative Negative [facility] Work Phone: Urine pHon 10-27-2021 pH (U) 7.0 [pH] [facility] Work Phone: Urine protein measurement (m ass/volume)on 10-27-2021 Protein (U) [Mass/Vol] mg/dL 0.0-11.8 [facility] Work Phone: Urine protein/creatinine mas s ratioon 10-27-2021 Protein/Creatinine (U) [Mass ratio] TNP [facility] Work Phone: Comment on above: Test not performed Urine specific gravity measu rementon 10-27-2021 Specific gravity (U) [Rel density] 1.010 [facility] Work Phone: Urobilinogen Auto test strip Ql (U)on 10-27-2021 Urobilinogen Ql (U) Normal mg/dl Normal [facility] Work Phone: CNPNon 10-19-2021 CNPN Telephone (TXCTMN) -------- ALEX ROJO ([id number]) 1975 M TRN Date Time Provider Department 10/19/21 ASHIA SINHA [...] Reason for Visit: Referral - Liver Txp [[id number]] Cmt: Intake-LM Problem List As Of Date: 10/19/2021 (None) Encounter Status:Closed by [facility] ALEX [facility] ([id number]) 1975 [facility] Date Time Provider Department 10/19/21 ASHIA SINHA TXCTMN During your visit today, we recorded the following information about you: Ashia Sinha RN 10/19/2021 3:41 PM Signed I received a phone call back from the pt. He states that he is not willing to get the covid vaccination which is a requirement to be listed at [facility]. He was advised that he can seek other transplant centers that may not require the vaccination and he will look into that. I called and left a message with the referring, Debra Lipscomb NP at [phone] explaining that we will not proceed with transplant evaluation at this time. Referral for transplant closed. Ashia Sinha RN Allergies As of Date: 10/19/2021 (Not on File) Date Reviewed: Never Reviewed Reason for Visit: Referral - Liver Txp [[id number]] Cmt: referral closed Problem List As Of Date: 10/19/2021 (None) Encounter Status:Closed by ASHIA SINHA on 10/19/21 [facility] ALEX ROJO ([id number]) 1975 M TRN Date Time Provider Department 10/13/21 LIVER TXP COORDINATOR TXCTMN During your visit today, we recorded the following information about you: Eva Guerra 10/13/2021 11:04 AM Signed LIVER TRANSPLANT REFERRAL Alex Rojo [id number] MyCHART Is the patient signed up for MyChart? Yes If YES - send patient the OLT New Referral Message If NO - obtain their email address: email address: [email or web address] CORRECTED: [email or web address] Diagnosis: Acute alcoholic hepatitis-Last drink-over 1 year ago Date of diagnosis: 10-11-2021 MELD Na: 25 COVID-19 Are you vaccinated for COVID19? No If you are vaccinated, which vaccine did you receive? N/A Patient refuses getting the COVID19 Vaccine How long does it take you to drive to [facility]? 1 hour Who will accompany you to your transplant evaluation? Patient's Nicolle. Referring MD: Debra Lipscomb, YOGI Gastro MD: Dr. Sullivan Friend Have you ever been evaluated for liver transplant? No If yes, where? N/A Status: N/A Outside Records Needed: Yes [facility] Requested? Yes Where are outside records being requested from: [facility] [place] [facility] Full or Partial Evaluation? Full Do you have a potential living donor? Not as of yet A nurse will call for medical intake, who should she call and at what phone number? [phone] Please be aware that the call will come from a restricted phone number for intake. Additional Comments: Recently dx'd with diabetes, not on insulin, will see hospice aide on 10-14-2021. Patient recently moved back to [place] 2 months ago from [place]. Liver bx done at [facility]. Question of Firboscan/CT scan done at [place]. One year ago Eva Guerra Allergies As of Date: 10/13/2021 (Not on File) Date Reviewed: Never Reviewed Reason for Visit: Referral - [facility] [[id number]] Primary Visit Diagnosis:Acute alcoholic hepatitis [K70.10] Order(s):[facility]ULT TO [facility] [[id number]] Order #: [id number]: 1 Problem List As Of Date: 10/13/2021 (None) Encounter Status:Closed by EVA GUERRA on 10/13/21 Normal [facility] INR in Blood by Coagulation assayon 10-11-2021 INR Coag (Bld) [Relative time] 1.7 {INR} [facility] Work Phone: [phone] Laboratory - Coagulationon 0 10-11-2021 aPTT Coag (Bld) [Time] 42.9 s 24.1-36.2 [facility] Work Phone: [phone] PT Coag (PPP) [Time] 18.9 s 11.7-14.9 [facility] Work Phone: [phone] Platelets bldon 10-11-2021 Platelets (Bld) [#/Vol] 113 10*3/uL 150-450 [facility] Work Phone: [phone] Absolute lymphocyte counton 09-29-2021 Lymphocytes Auto (Unsp spec) [#/Vol] 1.34 10*3/uL 0.83-4.51 [facility] Work Phone: [phone] Basophil percentageon 2021 Ammonia (P) [Moles/Vol] 75.0 umol/L 11-32 [facility] Work Phone: [phone] Basophils/100 WBC (Bld) 1.0 % 0-1 [facility] Work Phone: [phone] Bilirubin [Mass/Vol] 4.70 mg/dL 0.20-1.00 [facility] Work Phone: [phone] Comment on above: For patients on eltr ombopag therapy, use of Dimension Bluebell TBIL is not recommended. Chloride [Moles/Vol] 97 mmol/L 98-107 [facility] Work Phone: [phone] Eosinophils/100 WBC (Bld) 4.6 % 0-5 [facility] Work Phone: [phone] Glucose [Mass/Vol] 142 mg/dL 74-106 [facility] Work Phone: [phone] Comment on above: Fasting Glucose resu lt greater than or equal to 126 mg/dL suggests DIABETES MELLITUS per A.D.A. criteria. Neutrophils (Bld) [#/Vol] 5.5 10*3/uL 2.0-7.7 [facility] Work Phone: Neutrophils/100 WBC (Bld) 68.5 % 47-70 [facility] Work Phone: Potassium [Moles/Vol] 4.2 mmol/L 3.5-5.1 [facility] Work Phone: Protein [Mass/Vol] 8.0 g/dL 6.4-8.2 [facility] Work Phone: Sodium [Moles/Vol] 130 mmol/L 136-145 [facility] Work Phone: WBC (Bld) [#/Vol] 8.0 10*3/uL 4.4-11.0 [facility] Work Phone: Blood erythrocytes count (nu mber/volume)on 09-29-2021 RBC (Bld) [#/Vol] 3.14 10*6/uL 4.6-6.2 [facility]: Blood hemoglobin measurement (mass/volume)on 09-29-2021 Hemoglobin (Bld) [Mass/Vol] 12.5 g/dL 13.0-16.5 [facility] Work Phone: Blood lymphocytes/100 leukoc yteson 09-29-2021 Lymphocytes/100 WBC (Bld) 16.8 % 19-41 [facility] Work Phone: Blood monocytes/100 leukocyt eson 09-29-2021 Monocytes/100 WBC (Bld) 8.6 % 0-10 [facility] Work Phone: Blood platelet mean volumeon 09-29-2021 Platelet mean volume (Bld) [Entitic vol] 9.7 fL 6.2-12.0 [facility] Work Phone: Determination of erythrocyte mean corpuscular volume (MCV)on 09-29-2021 MCV (RBC) [Entitic vol] 106.4 fL 80-94 [facility] Work Phone: Direct bilirubinon 2 Bilirubin.direct [Mass/Vol] 1.92 mg/dL 0.00-0.30 [facility] Work Phone: Hematocrit Auto (Bld) [Volum e fraction]on 09-29-2021 Hematocrit (Bld) [Volume fraction] 33.4 % 40-54 [facility] Work Phone: INR in Blood by Coagulation assayon 09-29-2021 INR Coag (Bld) [Relative time] 1.7 {INR} [facility] Work Phone: Laboratory - Chemistry and C hemistry - challengeon 09-29-2021 ALP [Catalytic activity/Vol] 198 U/L 45-117 [facility] Work Phone: ALT [Catalytic activity/Vol] 43 U/L 16-61 [facility] Work Phone: CO2 [Moles/Vol] 25.0 mmol/L 21.0-32.0 [facility] Work Phone: Globulin (S) [Mass/Vol] 5.1 g/dL 2.2-4.2 [facility] Work Phone: Urea nitrogen/Creatinine [Mass ratio] 21.9 mg/mg 10-20 [facility] Work Phone: Laboratory - Coagulationon 0 09-29-2021 PT Coag (PPP) [Time] 19.1 s 11.7-14.9 [facility] Work Phone: Laboratory - Hematology and Cell countson 09-29-2021 Erythrocyte distribution width (RBC) [Entitic vol] 52.7 fL 35.1-43.9 [facility] Work Phone: Erythrocyte distribution width (RBC) [Ratio] 13.3 % 11.6-14.6 [facility] Work Phone: Immature granulocytes/100 WBC (Bld) 0.500 % 0.0-0.9 [facility] Work Phone: Comment on above: IG% - Immature Granu locytes (promyelocytes, myelocytes and metamyelocytes) > 1% indicates that a LEFT SHIFT is Present. MCH (RBC) [Entitic mass] 39.8 pg 27.0-32.0 [facility] Work Phone: Nucleated RBC/100 WBC (Bld) [Ratio] 0 % 0-5 [facility] Work Phone: MCHC Auto (RBC) [Mass/Vol]on 09-29-2021 MCHC (RBC) [Mass/Vol] 37.4 g/dL 32-36 [facility] Work Phone: No Panel Informationon 09-29 Estimated GFR (MDRD) Amer 66 mL/min >60 [facility] Work Phone: Comment on above: GFR Calc Estimated GFR (MDRD) Non-Af Amer 55 mL/min >60 [facility] Work Phone: Comment on above: Non- GFR Calc Platelets bldon 09-29-2021 Platelets (Bld) [#/Vol] 135 10*3/uL 150-450 [facility] Work Phone: Serum or plasma albumin leslye urement (mass/volume)on 09-29-2021 Albumin [Mass/Vol] 2.9 g/dL 3.2-5.0 [facility] Work Phone: Serum or plasma albumin/glob ulin mass ratioon 09-29-2021 Albumin/Globulin [Mass ratio] 0.6 {ratio} 0.9-2.4 [facility] Work Phone: Serum or plasma calcium leslye urement (mass/volume)on 09-29-2021 Calcium [Mass/Vol] 8.9 mg/dL 8.5-10.1 [facility] Work Phone: Serum or plasma creatinine m easurement (mass/volume)on 09-29-2021 Creatinine [Mass/Vol] 1.46 mg/dL 0.70-1.30 [facility] Work Phone: Comment on above: The validity of the calculated GFR & GFRAA in patients over 70 years has not been determined. Clinical correlation is essential. Serum or plasma urea nitroge n measurement (mass/volume)on 09-29-2021 Urea nitrogen [Mass/Vol] 32 mg/dL 7-18 [facility] Work Phone: Thin prep Papanicolaou smear with manual screeningon 09-29-2021 Thin prep Papanicolaou smear with manual screening 63 U/L 15-37 [facility] Work Phone: Thin prep Papanicolaou smear with manual screening 8 5-15 [facility] Work Phone: Thin prep Papanicolaou smear with manual screening 218 U/L 87-241 [facility] Work Phone: Absolute lymphocyte counton 09-27-2021 Lymphocytes Auto (Unsp spec) [#/Vol] 1.09 10*3/uL 0.83-4.51 [facility] Work Phone: Basophil percentageon 2021 Ammonia (P) [Moles/Vol] 168.0 umol/L 11-32 [facility] Work Phone: Basophils/100 WBC (Bld) 0.7 % 0-1 [facility] Work Phone: Bilirubin [Mass/Vol] 6.50 mg/dL 0.20-1.00 [facility] Work Phone: Comment on above: For patients on eltr ombopag therapy, use of Dimension [place] TBIL is not recommended. Chloride [Moles/Vol] 98 mmol/L 98-107 [facility] Work Phone: Eosinophils/100 WBC (Bld) 3.2 % 0-5 [facility] Work Phone: Glucose [Mass/Vol] 144 mg/dL 74-106 [facility] Work Phone: Comment on above: Fasting Glucose resu lt greater than or equal to 126 mg/dL suggests DIABETES MELLITUS per A.D.A. criteria. Neutrophils (Bld) [#/Vol] 4.9 10*3/uL 2.0-7.7 [facility] Work Phone: [phone] Neutrophils/100 WBC (Bld) 68.7 % 47-70 [facility] Work Phone: [phone] Potassium [Moles/Vol] 4.4 mmol/L 3.5-5.1 [facility] Work Phone: [phone] Protein [Mass/Vol] 8.5 g/dL 6.4-8.2 [facility] Work Phone: [phone] Sodium [Moles/Vol] 130 mmol/L 136-145 [facility] Work Phone: [phone] WBC (Bld) [#/Vol] 7.2 10*3/uL 4.4-11.0 [facility] Work Phone: [phone] Blood erythrocytes count (nu mber/volume)on 09-27-2021 RBC (Bld) [#/Vol] 3.14 10*6/uL 4.6-6.2 [facility] Work Phone: Blood hemoglobin measurement (mass/volume)on 09-27-2021 Hemoglobin (Bld) [Mass/Vol] 12.6 g/dL 13.0-16.5 [facility] Work Phone: Blood lymphocytes/100 leukoc yteson 09-27-2021 Lymphocytes/100 WBC (Bld) 15.2 % 19-41 [facility] Work Phone: Blood monocytes/100 leukocyt eson 09-27-2021 Monocytes/100 WBC (Bld) 11.8 % 0-10 [facility] Work Phone: Blood platelet mean volumeon 09-27-2021 Platelet mean volume (Bld) [Entitic vol] 9.6 fL 6.2-12.0 [facility] Work Phone: Determination of erythrocyte mean corpuscular volume (MCV)on 09-27-2021 MCV (RBC) [Entitic vol] 107.0 fL 80-94 [facility] Work Phone: Direct bilirubinon 2 Bilirubin.direct [Mass/Vol] 2.20 mg/dL 0.00-0.30 [facility] Work Phone: HIV 1 and HIV-2 antibody ass ay with HIV-1 p24 antigen detectionon 09-27-2021 HIV 1+2 Ab+HIV1 p24 Ag IA Ql Non-Reactive Nonreactive [facility] Work Phone: Hematocrit Auto (Bld) [Volum e fraction]on 09-27-2021 Hematocrit (Bld) [Volume fraction] 33.6 % 40-54 [facility] Work Phone: INR in Blood by Coagulation assayon 09-27-2021 INR Coag (Bld) [Relative time] 1.8 {INR} [facility] Work Phone: Laboratory - Chemistry and C hemistry - challengeon 09-27-2021 ALP [Catalytic activity/Vol] 186 U/L 45-117 [facility] Work Phone: ALT [Catalytic activity/Vol] 43 U/L 16-61 [facility] Work Phone: CO2 [Moles/Vol] 25.0 mmol/L 21.0-32.0 [facility] Work Phone: Globulin (S) [Mass/Vol] 5.5 g/dL 2.2-4.2 [facility] Work Phone: Urea nitrogen/Creatinine [Mass ratio] 22.8 mg/mg 10-20 [facility] Work Phone: Laboratory - Coagulationon 0 09-27-2021 PT Coag (PPP) [Time] 19.9 s 11.7-14.9 [facility] Work Phone: Laboratory - Hematology and Cell countson 09-27-2021 Erythrocyte distribution width (RBC) [Entitic vol] 53.1 fL 35.1-43.9 [facility] Work Phone: Erythrocyte distribution width (RBC) [Ratio] 13.5 % 11.6-14.6 [facility] Work Phone: Immature granulocytes/100 WBC (Bld) 0.400 % 0.0-0.9 [facility] Work Phone: Comment on above: IG% - Immature Granu locytes (promyelocytes, myelocytes and metamyelocytes) > 1% indicates that a LEFT SHIFT is Present. MCH (RBC) [Entitic mass] 40.1 pg 27.0-32.0 [facility] Work Phone: Nucleated RBC/100 WBC (Bld) [Ratio] 0 % 0-5 [facility] Work Phone: MCHC Auto (RBC) [Mass/Vol]on 09-27-2021 MCHC (RBC) [Mass/Vol] 37.5 g/dL 32-36 [facility] Work Phone: No Panel Informationon 09-27 Estimated GFR (MDRD) Amer 81 mL/min >60 [facility] Work Phone: Comment on above: GFR Calc Estimated GFR (MDRD) Non-Af Amer 67 mL/min >60 [facility] Work Phone: Comment on above: Non- GFR Calc Haptoglobin < 10 mg/dL [facility] Work Phone: Comment on above: Performed at: [address] [id number] Director: Ciro Putnam PhD, Phone: [phone] Platelets bldon 09-27-2021 Platelets (Bld) [#/Vol] 142 10*3/uL 150-450 [facility] Work Phone: Serum or plasma albumin leslye urement (mass/volume)on 09-27-2021 Albumin [Mass/Vol] 3.0 g/dL 3.2-5.0 [facility] Work Phone: Serum or plasma albumin/glob ulin mass ratioon 09-27-2021 Albumin/Globulin [Mass ratio] 0.5 {ratio} 0.9-2.4 [facility] Work Phone: Serum or plasma calcium leslye urement (mass/volume)on 09-27-2021 Calcium [Mass/Vol] 9.0 mg/dL 8.5-10.1 [facility] Work Phone: Serum or plasma creatinine m easurement (mass/volume)on 09-27-2021 Creatinine [Mass/Vol] 1.23 mg/dL 0.70-1.30 [facility] Work Phone: Comment on above: The validity of the calculated GFR & GFRAA in patients over 70 years has not been determined. Clinical correlation is essential. Serum or plasma urea nitroge n measurement (mass/volume)on 09-27-2021 Urea nitrogen [Mass/Vol] 28 mg/dL 7-18 [facility] Work Phone: Thin prep Papanicolaou smear with manual screeningon 09-27-2021 Thin prep Papanicolaou smear with manual screening 61 U/L 15-37 [facility] Work Phone: Thin prep Papanicolaou smear with manual screening 7 5-15 [facility] Work Phone: Thin prep Papanicolaou smear with manual screening 233 U/L 87-241 [facility] Work Phone: Absolute lymphocyte counton 09-26-2021 Lymphocytes Auto (Unsp spec) [#/Vol] 0.80 10*3/uL 0.83-4.51 [facility] Work Phone: Acetaminophen level (mass/vo lume)on 09-26-2021 Acetaminophen (Unsp spec) [Mass/Vol] < 2.0 ug/mL 10.0-30.0 [facility] Work Phone: Basophil percentageon 2021 Basophil percentage 0 SEEN /hpf [facility] Work Phone: Ammonia (P) [Moles/Vol] 82.0 umol/L 11-32 [facility] Work Phone: Basophils/100 WBC (Bld) 0.6 % 0-1 [facility] Work Phone: Bilirubin [Mass/Vol] 7.60 mg/dL 0.20-1.00 [facility] Work Phone: Comment on above: For patients on eltr ombopag therapy, use of Dimension [place] TBIL is not recommended. Chloride [Moles/Vol] 100 mmol/L 98-107 [facility] Work Phone: Eosinophils/100 WBC (Bld) 0.7 % 0-5 [facility] Work Phone: Glucose [Mass/Vol] 184 mg/dL 74-106 [facility] Work Phone: Comment on above: Fasting Glucose resu lt greater than or equal to 126 mg/dL suggests DIABETES MELLITUS per A.D.A. criteria. Neutrophils (Bld) [#/Vol] 5.6 10*3/uL 2.0-7.7 [facility] Work Phone: Neutrophils/100 WBC (Bld) 79.1 % 47-70 [facility] Work Phone: Potassium [Moles/Vol] 4.3 mmol/L 3.5-5.1 [facility] Work Phone: [phone] Protein [Mass/Vol] 8.5 g/dL 6.4-8.2 [facility] Work Phone: Sodium [Moles/Vol] 132 mmol/L 136-145 [facility] Work Phone: [phone] WBC (Bld) [#/Vol] 7.0 10*3/uL 4.4-11.0 [facility] Work Phone: Bilirubin Test strip Ql (U)o n 09-26-2021 Bilirubin Ql (U) 1 mg/dL Negative [facility] Work Phone: Comment on above: COLOR OF URINE MAY A FFECT DIPSTICK RESULTS. Blood erythrocytes count (nu mber/volume)on 09-26-2021 RBC (Bld) [#/Vol] 3.29 10*6/uL 4.6-6.2 [facility] Work Phone: Blood hemoglobin measurement (mass/volume)on 09-26-2021 Hemoglobin (Bld) [Mass/Vol] 12.9 g/dL 13.0-16.5 [facility] Work Phone: Blood lymphocytes/100 leukoc yteson 09-26-2021 Lymphocytes/100 WBC (Bld) 11.4 % 19-41 [facility] Work Phone: Blood monocytes/100 leukocyt eson 09-26-2021 Monocytes/100 WBC (Bld) 7.8 % 0-10 [facility] Work Phone: Blood platelet mean volumeon 09-26-2021 Platelet mean volume (Bld) [Entitic vol] 9.2 fL 6.2-12.0 [facility] Work Phone: Determination of erythrocyte mean corpuscular volume (MCV)on 09-26-2021 MCV (RBC) [Entitic vol] 106.3 fL 80-94 [facility] Work Phone: Direct bilirubinon 2 Bilirubin.direct [Mass/Vol] 2.19 mg/dL 0.00-0.30 [facility] Work Phone: Hematocrit Auto (Bld) [Volum e fraction]on 09-26-2021 Hematocrit (Bld) [Volume fraction] 35.4 % 40-54 [facility] Work Phone: INR in Blood by Coagulation assayon 09-26-2021 INR Coag (Bld) [Relative time] 1.6 {INR} [facility] Work Phone: Ketones Test strip Ql (U)on 09-26-2021 Ketones Ql (U) 5 mg/dl Negative [facility] Work Phone: Laboratory - Chemistry and C hemistry - challengeon 09-26-2021 ALP [Catalytic activity/Vol] 181 U/L 45-117 [facility] Work Phone: ALT [Catalytic activity/Vol] 41 U/L 16-61 [facility] Work Phone: CO2 [Moles/Vol] 24.0 mmol/L 21.0-32.0 [facility] Work Phone: Globulin (S) [Mass/Vol] 5.5 g/dL 2.2-4.2 [facility] Work Phone: Lipase [Catalytic activity/Vol] 194 U/L 73-393 [facility] Work Phone: Urea nitrogen/Creatinine [Mass ratio] 17.2 mg/mg 10-20 [facility] Work Phone: Laboratory - Coagulationon 0 09-26-2021 PT Coag (PPP) [Time] 18.6 s 11.7-14.9 [facility] Work Phone: Laboratory - Drug toxicology on 09-26-2021 Amphetamines Ql (U) Negative [facility] Work Phone: Benzodiazepines Ql (U) Negative [facility] Work Phone: Cannabinoids Screen Ql (U) Negative [facility] Work Phone: Cocaine Ql (U) Negative [facility] Work Phone: Opiates Ql (U) Negative [facility] Work Phone: Laboratory - Hematology and Cell countson 09-26-2021 Erythrocyte distribution width (RBC) [Entitic vol] 52.6 fL 35.1-43.9 [facility] Work Phone: [phone] Erythrocyte distribution width (RBC) [Ratio] 13.2 % 11.6-14.6 [facility] Work Phone: Immature granulocytes/100 WBC (Bld) 0.400 % 0.0-0.9 [facility] Work Phone: Comment on above: IG% - Immature Granu locytes (promyelocytes, myelocytes and metamyelocytes) > 1% indicates that a LEFT SHIFT is Present. MCH (RBC) [Entitic mass] 38.7 pg 27.0-32.0 [facility] Work Phone: Nucleated RBC/100 WBC (Bld) [Ratio] 0 % 0-5 [facility] Work Phone: MCHC Auto (RBC) [Mass/Vol]on 09-26-2021 MCHC (RBC) [Mass/Vol] 36.4 g/dL 32-36 [facility] Work Phone: Mucus LM Ql (Urine sed)on Mucus Ql (Urine sed) 0 SEEN /hpf [facility] Work Phone: Nitrite Test strip Ql (U)on 09-26-2021 Nitrite Ql (U) Negative Negative [facility] Work Phone: No Panel Informationon 09-26 MDMA (Ecstasy) Screen Negative [facility] Work Phone: Urine Barbiturates Screen Negative [facility] Work Phone: Urine Drug Screen Comment [facility] Work Phone: Comment on above: CONFIRMATORY TESTING [...] USE TESTMNEMONIC: [facility] Urine Methadone Screen Negative [facility] Work Phone: Ethyl Alcohol Level < 3.0 mg/dL [facility] Work Phone: Comment on above: The serum:whole bloo d ethanol ratio is approximately 1.14and varies slightly with hematocrit. Medical Alcohol reference interval and critical value innon-tolerant individuals; 50 - 100 Impairment 100 Intoxication 100 - 250 Severe Poisoning 250 - 400 Deep/possible fatal coma Estimated Creatinine Clearance Calc 78.72 ml/min [facility] Work Phone: Estimated GFR (MDRD) Amer 87 mL/min >60 [facility] Work Phone: Comment on above: GFR Calc Estimated GFR (MDRD) Non-Af Amer 72 mL/min >60 [facility] Work Phone: Comment on above: Non- GFR Calc Platelets bldon 09-26-2021 Platelets (Bld) [#/Vol] 127 10*3/uL 150-450 [facility] Work Phone: Protein Test strip Ql (U)on 09-26-2021 Protein Ql (U) Negative Negative [facility] Work Phone: Serum or plasma albumin leslye urement (mass/volume)on 09-26-2021 Albumin [Mass/Vol] 3.0 g/dL 3.2-5.0 [facility] Work Phone: Serum or plasma calcium leslye urement (mass/volume)on 09-26-2021 Calcium [Mass/Vol] 9.5 mg/dL 8.5-10.1 [facility] Work Phone: Serum or plasma creatinine m easurement (mass/volume)on 09-26-2021 Creatinine [Mass/Vol] 1.16 mg/dL 0.70-1.30 [facility] Work Phone: Comment on above: The validity of the calculated GFR & GFRAA in patients over 70 years has not been determined. Clinical correlation is essential. Serum or plasma urea nitroge n measurement (mass/volume)on 09-26-2021 Urea nitrogen [Mass/Vol] 20 mg/dL 7-18 [facility] Work Phone: Squamous epithelial cells de tection in urine sediment by light microscopyon 09-26-2021 Epithelial cells.squamous LM Ql (Urine sed) 0 SEEN /hpf [facility] Work Phone: Thin prep Papanicolaou smear with manual screeningon 09-26-2021 Thin prep Papanicolaou smear with manual screening 66 ug/dL [facility] Work Phone: Comment on above: Detection Limit = 5P erformed at: - [facility] [id number] Director: Ermelinda Birmingham MD, Phone: [phone] Thin prep Papanicolaou smear with manual screening 63 U/L 15-37 [facility] Work Phone: Thin prep Papanicolaou smear with manual screening 8 5-15 [facility] Work Phone: Urine blood detectionon 09-14 RBC Ql (U) 10 /ul Negative [facility] Work Phone: RBC Ql (U) 0 SEEN /hpf [facility] Work Phone: Urine clarityon 09-26-2021 Clarity (U) Clear Clear [facility] Work Phone: Urine color determinationon 09-26-2021 Color (U) Yellow Yellow [facility] Work Phone: Urine glucose detectionon Glucose Ql (U) Normal mg/dl Normal [facility] Work Phone: Urine leukocyte esterase det ection by dipstickon 09-26-2021 Leukocyte esterase Test strip Ql (U) 25 /ul Negative [facility] Work Phone: Urine pHon 09-26-2021 pH (U) 6.5 [pH] [facility] Work Phone: Urine phencyclidine (PCP) de tectionon 09-26-2021 Phencyclidine Ql (U) Negative [facility] Work Phone: Urine sediment bacteria coun t by microscopy (number/high power field)on 09-26-2021 Bacteria LM.HPF (Urine sed) [#/Area] 0 /[HPF] None Seen [facility] Work Phone: Urine specific gravity measu rementon 09-26-2021 Specific gravity (U) [Rel density] 1.015 [facility] Work Phone: Urobilinogen Auto test strip Ql (U)on 09-26-2021 Urobilinogen Ql (U) 8 mg/dl Normal [facility] Work Phone: Absolute lymphocyte counton 09-14-2021 Lymphocytes Auto (Unsp spec) [#/Vol] 1.20 10*3/uL 0.83-4.51 [facility] Work Phone: Atypical perinuclear antineu trophil cytoplasmic antibodies measurementon 09-14-2021 Neutrophil cytoplasmic Ab.perinuclear.atypic al IF (S) [Titer] <1:20 titer Neg:<1:20 [facility] Work Phone: Comment on above: The atypical pANCA p attern has been observed in asignificant percentage of patients with ulcerative colitis,primary sclerosing cholangitis and autoimmune hepatitis. Basophil percentageon 2021 Ammonia (P) [Moles/Vol] 117.0 umol/L 11-32 [facility] Work Phone: Basophil percentage < 0.2 AI [facility] Work Phone: Basophils/100 WBC (Bld) 0.8 % 0-1 [facility] Work Phone: Bilirubin [Mass/Vol] 4.80 mg/dL 0.20-1.00 [facility] Work Phone: Comment on above: For patients on eltr ombopag therapy, use of Dimension [place] TBIL is not recommended. Chloride [Moles/Vol] 97 mmol/L 98-107 [facility] Work Phone: Eosinophils/100 WBC (Bld) 4.7 % 0-5 [facility] Work Phone: Glucose [Mass/Vol] 204 mg/dL 74-106 [facility] Work Phone: Comment on above: Glucose result great er than or equal to 200 mg/dLsuggests DIABETES MELLITUS per A.D.A. criteria. Neutrophils (Bld) [#/Vol] 5.2 10*3/uL 2.0-7.7 [facility] Work Phone: Neutrophils/100 WBC (Bld) 69.3 % 47-70 [facility] Work Phone: Potassium [Moles/Vol] 4.0 mmol/L 3.5-5.1 [facility] Work Phone: Protein [Mass/Vol] 7.8 g/dL 6.4-8.2 [facility] Work Phone: Sodium [Moles/Vol] 132 mmol/L 136-145 [facility] Work Phone: WBC (Bld) [#/Vol] 7.5 10*3/uL 4.4-11.0 [facility] Work Phone: Blood erythrocytes count (nu mber/volume)on 09-14-2021 RBC (Bld) [#/Vol] 3.16 10*6/uL 4.6-6.2 [facility] Work Phone: Blood hemoglobin measurement (mass/volume)on 09-14-2021 Hemoglobin (Bld) [Mass/Vol] 13.0 g/dL 13.0-16.5 [facility] Work Phone: Blood lymphocytes/100 leukoc yteson 09-14-2021 Lymphocytes/100 WBC (Bld) 16.0 % 19-41 [facility] Work Phone: Blood monocytes/100 leukocyt eson 09-14-2021 Monocytes/100 WBC (Bld) 8.9 % 0-10 [facility] Work Phone: Blood platelet mean volumeon 09-14-2021 Platelet mean volume (Bld) [Entitic vol] 9.3 fL 6.2-12.0 [facility] Work Phone: Determination of erythrocyte mean corpuscular volume (MCV)on 09-14-2021 MCV (RBC) [Entitic vol] 102.8 fL 80-94 [facility] Work Phone: Direct bilirubinon 2 Bilirubin.direct [Mass/Vol] 1.89 mg/dL 0.00-0.30 [facility] Work Phone: Erythrocyte sedimentation ra syed 09-14-2021 ESR (Bld) [Velocity] 37 mm/h 0-20 [facility] Work Phone: Hematocrit Auto (Bld) [Volum e fraction]on 09-14-2021 Hematocrit (Bld) [Volume fraction] 32.5 % 40-54 [facility] Work Phone: INR in Blood by Coagulation assayon 09-14-2021 INR Coag (Bld) [Relative time] 1.8 {INR} [facility] Work Phone: Iron measurement (mass/mass) on 09-14-2021 Iron (Unsp spec) [Mass/Mass] 212 ug/dL 65-175 [facility] Work Phone: Laboratory - Chemistry and C hemistry - challengeon 09-14-2021 ALP [Catalytic activity/Vol] 318 U/L 45-117 [facility] Work Phone: ALT [Catalytic activity/Vol] 36 U/L 16-61 [facility] Work Phone: CO2 [Moles/Vol] 28.0 mmol/L 21.0-32.0 [facility] Work Phone: Globulin (S) [Mass/Vol] 5.1 g/dL 2.2-4.2 [facility] Work Phone: Urea nitrogen/Creatinine [Mass ratio] 14.0 mg/mg 10-20 [facility] Work Phone: Laboratory - Coagulationon 0 09-14-2021 aPTT Coag (Bld) [Time] 45.6 s 24.1-36.2 [facility] Work Phone: PT Coag (PPP) [Time] 19.9 s 11.7-14.9 [facility] Work Phone: Laboratory - Hematology and Cell countson 09-14-2021 Erythrocyte distribution width (RBC) [Entitic vol] 47.4 fL 35.1-43.9 [facility] Work Phone: Erythrocyte distribution width (RBC) [Ratio] 12.6 % 11.6-14.6 [facility] Work Phone: Immature granulocytes/100 WBC (Bld) 0.300 % 0.0-0.9 [facility] Work Phone: Comment on above: IG% - Immature Granu locytes (promyelocytes, myelocytes and metamyelocytes) > 1% indicates that a LEFT SHIFT is Present. MCH (RBC) [Entitic mass] 41.1 pg 27.0-32.0 [facility] Work Phone: Nucleated RBC/100 WBC (Bld) [Ratio] 0 % 0-5 [facility] Work Phone: MCHC Auto (RBC) [Mass/Vol]on 09-14-2021 MCHC (RBC) [Mass/Vol] 40.0 g/dL 32-36 [facility] Work Phone: No Panel Informationon 09-14 Centromere B Antibody <0.2 AI [facility] Work Phone: Ceruloplasmin 13.6 mg/dL [facility] Work Phone: Comment on above: Performed at: [facility] [address] [id number] Director: Ciro Putnam PhD, Phone: [phone] Estimated GFR (MDRD) Amer 112 mL/min >60 [facility] Work Phone: Comment on above: GFR Calc Estimated GFR (MDRD) Non-Af Amer 93 mL/min >60 [facility] Work Phone: Comment on above: Non- GFR Calc Hepatitis C Antibody Non-Reactive Nonreactive [facility] Work Phone: Comment on above: Non Reactive: < 0.8 Equivocal: >/= 0.8 to < 1.0 Reactive: >/= 1.0The CDC recommends that a reactive/equivocal HCV antibody result be followed up by the HCV Nucleic Acid Amplificationtest ([id number]) LAMINATION INSPECTOR Antibody 1.6 [facility] Work Phone: Total Iron Binding Capacity 235 ug/dL 250-450 [facility] Work Phone: Platelets bldon 09-14-2021 Platelets (Bld) [#/Vol] 147 10*3/uL 150-450 [facility] Work Phone: Serum DNA double strand anti body assay (units/volume)on 09-14-2021 DNA double strand Ab Qn (S) [IU]/mL [facility] Work Phone: Comment on above: Negative <5 Equivoca l 5 - 9 Positive >9 Serum Nadira-1 antibody assay (u nits/volume)on 09-14-2021 Nadira-1 extractable nuclear Ab Qn (S) <0.2 [facility] Work Phone: Serum Scl-70 extractable nuc lear antibody assay (units/volume)on 09-14-2021 SCL-70 extractable nuclear Ab Qn (S) <0.2 [facility] Work Phone: Serum Doyle extractable nucl ear antibody detectionon 09-14-2021 Doyle extractable nuclear Ab Ql (S) <0.2 [facility] Work Phone: Serum classic neutrophil cyt oplasmic antibody assay (units/volume)on 09-14-2021 Neutrophil cytoplasmic Ab.classic Qn (S) 1:80 titer Neg:<1:20 [facility] Work Phone: Serum mitochondria antibody detectionon 09-14-2021 Mitochondria Ab Ql (S) <20.0 Units [facility] Work Phone: Comment on above: Negative 0.0 - 20.0 Equivocal 20.1 - 24.9 Positive >24.9Mitochondrial (M2) Antibodies are found in 90-96% ofpatients with primary biliary cirrhosis.Performed at: [facility] [id number] Director: Ciro Putnam PhD, Phone: [phone] Serum or plasma C reactive p rotein measurement (mass/volume)on 09-14-2021 CRP [Mass/Vol] 4.16 mg/L 0.0-3.0 [facility] Work Phone: Comment on above: C-Reactive Protein ( CRP) provides useful information for thediagnosis, therapy and monitoring of inflammatory processesand associated diseases. For the evaluation of Relative Riskfor Cardiovascular Disease, a High Sensitivity CRP (HSCRP)should be ordered. Serum or plasma actin IgG an tibody assay (units/volume)on 09-14-2021 Actin IgG Qn 16 Units [facility] Work Phone: Comment on above: Negative 0 - 19 Weak positive 20 - 30 Moderate to strong positive >30 Actin Antibodies are found in 52-85% of patients with autoimmune hepatitis or chronic active hepatitis and in 22% of patients with primary biliary cirrhosis. Serum or plasma albumin leslye urement (mass/volume)on 09-14-2021 Albumin [Mass/Vol] 2.7 g/dL 3.2-5.0 [facility] Work Phone: Serum or plasma albumin/glob ulin mass ratioon 09-14-2021 Albumin/Globulin [Mass ratio] 0.5 {ratio} 0.9-2.4 [facility] Work Phone: Serum or plasma angiotensin converting enzyme measurement (enzymatic activity/volume)on 09-14-2021 Angiotensin converting enzyme [Catalytic activity/Vol] 186 U/L [facility] Work Phone: Serum or plasma calcium leslye urement (mass/volume)on 09-14-2021 Calcium [Mass/Vol] 8.6 mg/dL 8.5-10.1 [facility] Work Phone: Serum or plasma creatinine m easurement (mass/volume)on 09-14-2021 Creatinine [Mass/Vol] 0.93 mg/dL 0.70-1.30 [facility] Work Phone: Comment on above: The validity of the calculated GFR & GFRAA in patients over 70 years has not been determined. Clinical correlation is essential. Serum or plasma ferritin michael surement (mass/volume)on 09-14-2021 Ferritin [Mass/Vol] 382 ng/mL 26-388 [facility] Work Phone: Serum or plasma iron saturat ion measurement (mass fraction)on 09-14-2021 Iron saturation [Mass fraction] 90.2 % 15.0-55.0 [facility] Work Phone: Serum or plasma urea nitroge n measurement (mass/volume)on 09-14-2021 Urea nitrogen [Mass/Vol] 13 mg/dL 7-18 [facility] Work Phone: Serum perinuclear neutrophil cytoplasmic antibody titer by immunofluorescenceon 09-14-2021 Neutrophil cytoplasmic Ab.perinuclear IF (S) [Titer] <1:20 titer Neg:<1:20 [facility] Work Phone: Comment on above: The presence of posi tive fluorescence exhibiting P-ANCA orC- ANCA patterns alone is not specific for the diagnosis ofWegener's Granulomatosis (WG) or microscopic polyangiitis.Decisions about treatment should not be based solely onANCA IFA results. The [employer] ANCA Group Consensusrecommends follow up testing of positive sera with both MT-3 and MPO-ANCA enzyme immunoassays. As many as 5% serumsamples are positive only by EIA. Ref. AM J Clin [id number];111:507-513. Thin prep Papanicolaou smear with manual screeningon 09-14-2021 Thin prep Papanicolaou smear with manual screening 49 U/L 15-37 [facility] Work Phone: Thin prep Papanicolaou smear with manual screening 7 5-15 [facility] Work Phone: Thin prep Papanicolaou smear with manual screening 222 U/L 87-241 [facility] Work Phone: Whole blood hemoglobin A1c/t otal hemoglobin ratio (mass fraction)on 09-14-2021 HbA1c (Bld) [Mass fraction] 7.3 % 3.8-5.6 [facility] Work Phone: Comment on above: Normal < 5.7 % Predi abetic 5.7 - 6.4 % Diabetic >or= 6.5 % Please note range changes. Influenza virus A and B and SARS-CoV-2 (COVID-19) Ag panel - Upper respiratory specim SARS-CoV-2 (COVID-19) RNA FOX+probe Ql (Resp) [facility] Work Phone: Laboratory - Microbiology an d Antimicrobial susceptibility Bacteria identified Cx Nom (Bld) No growth in 5 days. [facility] Work Phone: Respiratory pathogens DNA an d RNA 12b panel FOX+probe (Unsp spec) Respiratory Panel (PCR) Influenza A (Subtype H1) [facility] Work Phone: Vital Signs Date Time Vital Sign Value Performing Clinician Facility 11-27-2024 19:30-0400 Diastolic Blood Pressure Non-Invasive 62 mm[Hg] DR ISIDRO UPTON MD [facility] 11-27-2024 19:30-0400 Heart rate 75 /min DR ISIDRO UPTON MD [facility] 11-27-2024 19:30-0400 Respiratory rate 16 /min DR ISIDRO UPTON MD [facility] 11-27-2024 19:30-0400 Systolic Blood Pressure Non-Invasive 128 mm[Hg] DR ISIDRO UPTON MD [facility] 11-27-2024 18:05-0400 Body temperature 98.6 [degF] DR ISIDRO UPTON MD [facility] 11-27-2024 18:05-0400 Body weight [address] ISIDRO UPTON MD [facility] 11-27-2024 18:05-0400 Diastolic Blood Pressure Non-Invasive 70 mm[Hg] DR ISIDRO UPTON MD [facility] 11-27-2024 18:05-0400 Heart rate 74 /min DR ISIDRO UPTON MD [facility] 11-27-2024 18:05-0400 Respiratory rate 16 /min DR ISIDRO UPTON MD [facility] 11-27-2024 18:05-0400 Systolic Blood Pressure Non-Invasive 127 mm[Hg] DR ISIDRO UPTON MD [facility] 07-14-2024 04:23-0500 Diastolic Blood Pressure Non-Invasive 71 mm[Hg] DR WAQAS GARSIA MD [facility] 07-14-2024 04:23-0500 Heart rate 89 /min DR WAQAS GARSIA MD [facility] 07-14-2024 04:23-0500 Respiratory rate 18 /min DR WAQAS GARSIA MD [facility] 07-14-2024 04:23-0500 Systolic Blood Pressure Non-Invasive 122 mm[Hg] DR WAQAS GARSIA MD [facility] 07-14-2024 01:45-0500 Body temperature 98.6 [degF] DR WAQAS GARSIA MD [facility] 07-14-2024 01:45-0500 Diastolic Blood Pressure Non-Invasive 69 mm[Hg] DR WAQAS GARSIA MD [facility] 07-14-2024 01:45-0500 Heart rate 93 /min DR WAQAS GARSIA MD [facility] 07-14-2024 01:45-0500 Respiratory rate 18 /min DR WAQAS GARSIA MD [facility] 07-14-2024 01:45-0500 Systolic Blood Pressure Non-Invasive 128 mm[Hg] DR WAQAS GARSIA MD [facility] 07-13-2024 01:15-0500 Blood Pressure Location WAQAS HOLGUIN MD [facility] 07-13-2024 01:15-0500 Blood Pressure Method WAQAS HOLGUIN MD [facility] 07-13-2024 01:15-0500 Body height 175.3 cm WAQAS HOLGUIN MD [facility] 07-13-2024 01:15-0500 Body temperature 98.06 [degF] WAQAS HOLGUIN MD [facility] 07-13-2024 01:15-0500 Body weight 93.2 kg WAQAS HOLGUIN MD [facility] 07-13-2024 01:15-0500 Diastolic Blood Pressure Non-Invasive 66 mm[Hg] WAQAS HOLGUIN MD [facility] 07-13-2024 01:15-0500 Heart rate 76 /min WAQAS HOLGUIN MD [facility] 07-13-2024 01:15-0500 Respiratory rate 18 /min WAQAS HOLGUIN MD [facility] 07-13-2024 01:15-0500 Systolic Blood Pressure Non-Invasive 120 mm[Hg] WAQAS HOLGUIN MD [facility] 01-30-2024 14:35-0400 Body height 175.3 cm Barrington Traore MD Work Phone: [facility] 01-30-2024 14:35-0400 Body mass index (BMI) [Ratio] 26.76 kg/m2 Barrington Traore MD Work Phone: [facility] 01-30-2024 14:35-0400 Body temperature 98.1 [degF] Barrington Traore MD Work Phone: [facility] 01-30-2024 14:35-0400 Body weight 82.2 kg Barrington Traore MD Work Phone: [facility] 01-30-2024 14:35-0400 Diastolic blood pressure 87 mm[Hg] Barrington Traore MD Work Phone: [facility] Comment on above: Pt denies h/a, nausea, dizziness. No dis tress noted. notified. 01-30-2024 14:35-0400 Heart rate 73 /min Barrington Traore MD Work Phone: [facility] 01-30-2024 14:35-0400 SaO2% (BldA) [Mass fraction] 98 % Barrington Traore MD Work Phone: [facility] 01-30-2024 14:35-0400 Systolic blood pressure 134 mm[Hg] Barrington Traore MD Work Phone: [facility] Comment on above: Pt denies h/a, nausea, dizziness. No dis tress noted. notified. 01-01-2024 11:13-0400 Body mass index (BMI) [Ratio] 25.37 kg/m2 Piter Gaines Jr., MD Work Phone: [facility] 01-01-2024 11:13-0400 Body weight 77.93 kg Piter Gaines Jr., MD Work Phone: [facility] 01-01-2024 11:13-0400 Diastolic blood pressure 68 mm[Hg] Piter Gaines Jr., MD Work Phone: [facility] 01-01-2024 11:13-0400 Heart rate 94 /min Piter Gaines Jr., MD Work Phone: [facility] 01-01-2024 11:13-0400 Respiratory rate 16 /min Piter Gaines Jr., MD Work Phone: [facility] 01-01-2024 11:13-0400 SaO2% (BldA) [Mass fraction] 96 % Piter Gaines Jr., MD Work Phone: [facility] 01-01-2024 11:13-0400 Systolic blood pressure 126 mm[Hg] Piter Gaines Jr., MD Work Phone: [facility] 09-20-2023 11:40-0500 Diastolic blood pressure 57 mm[Hg] Barrington Traore MD Work Phone: [facility] 09-20-2023 11:40-0500 Heart rate 74 /min Barrington Traore MD Work Phone: [facility] 09-20-2023 11:40-0500 Respiratory rate 16 /min Barrington Traore MD Work Phone: [facility] 09-20-2023 11:40-0500 SaO2% (BldA) [Mass fraction] 96 % Barrington Traore MD Work Phone: [facility] 09-20-2023 11:40-0500 Systolic blood pressure 118 mm[Hg] Barrington Traore MD Work Phone: [facility] 03-06-2024 10:34-0500 Body height 175.3 cm Barrington Traore MD Work Phone: [facility] 09-20-2023 10:34-0500 Body temperature 97.3 [degF] Barrington Traore MD Work Phone: [facility] 09-20-2023 10:34-0500 Body weight 77.56 kg Barrington Traore MD Work Phone: [facility] 08-29-2023 12:57-0500 Body height 175.3 cm Barrington Traore MD Work Phone: [facility] 08-29-2023 12:57-0500 Body temperature 98.91 [degF] Barrington Traore MD Work Phone: [facility] 08-29-2023 12:57-0500 Body weight 77.6 kg Barrington Traore MD Work Phone: [facility] 08-29-2023 12:57-0500 Diastolic blood pressure 83 mm[Hg] Barrington Traore MD Work Phone: [facility] 08-29-2023 12:57-0500 Heart rate 84 /min Barrington Traore MD Work Phone: [facility] 08-29-2023 12:57-0500 SaO2% (BldA) [Mass fraction] 98 % Barrington Traore MD Work Phone: [facility] 08-29-2023 12:57-0500 Systolic blood pressure 138 mm[Hg] Barrington Traore MD Work Phone: [facility] 08-08-2023 09:00-0500 Body temperature 98.2 [degF] Cipriano Cedeño DO Work Phone: [facility] 08-08-2023 09:00-0500 Diastolic blood pressure 70 mm[Hg] Cipriano Cedeño DO Work Phone: [facility] 08-08-2023 09:00-0500 Heart rate 83 /min Cipriano Cedeño DO Work Phone: [facility] [address] 08-08-2023 09:00-0500 Respiratory rate 18 /min Cipriano Cedeño DO Work Phone: [facility] [address] 08-08-2023 09:00-0500 SaO2% (BldA) [Mass fraction] 100 % Cipriano Cedeño DO Work Phone: [facility] [address] 08-08-2023 09:00-0500 Systolic blood pressure 124 mm[Hg] Cipriano Cedeño DO Work Phone: [facility] [address] 08-07-2023 05:45-0500 Body mass index (BMI) [Ratio] 26.2 kg/m2 Cipriano Cedeoñ DO Work Phone: [facility] [address] 08-07-2023 05:45-0500 Body weight 80.51 kg Cipriano Cedeño DO Work Phone: [facility] [address] 08-03-2023 06:30-0500 Body height 175.3 cm Cipriano Cedeño DO Work Phone: [facility] [address] 06-21-2022 18:04-0500 Body temperature 98.7 [degF] Dr. Greg Goddard Work Phone: [facility] Work Phone: 06-21-2022 18:04-0500 Diastolic blood pressure 63 mm[Hg] Dr. Greg Goddard Work Phone: [facility] Work Phone: 06-21-2022 18:04-0500 Heart rate 82 /min Dr. Greg Goddard Work Phone: [facility] Work Phone: 06-21-2022 18:04-0500 Respiratory rate 18 /min Dr. Greg Goddard Work Phone: [facility] Work Phone: 06-21-2022 18:04-0500 SaO2% (BldA) [Mass fraction] 94 % Dr. Greg Goddard Work Phone: [facility] Work Phone: 06-21-2022 18:04-0500 Systolic blood pressure 102 mm[Hg] Dr. Greg Goddard Work Phone: [facility] Work Phone: 06-21-2022 10:33-0500 Body height 175.[address] Greg Goddard Work Phone: [facility] Work Phone: 06-21-2022 10:33-0500 Body weight 69.[address] Greg Goddard Work Phone: [facility] Work Phone: 06-17-2022 22:59-0500 Body mass index (BMI) [Ratio] 22.7 kg/m2 Dr. Greg Goddard Work Phone: [facility] Work Phone: 06-17-2022 01:40-0500 Diastolic blood pressure 74 mm[Hg] Dr. Greg Goddard Work Phone: [facility] Work Phone: 06-17-2022 01:40-0500 Heart rate 88 /min Dr. Greg Goddard Work Phone: [facility] Work Phone: 06-17-2022 01:40-0500 Respiratory rate 18 /min Dr. Greg Goddard Work Phone: [facility] Work Phone: 06-17-2022 01:40-0500 SaO2% (BldA) [Mass fraction] 99 % Dr. Greg Goddard Work Phone: [facility] Work Phone: 06-17-2022 01:40-0500 Systolic blood pressure 134 mm[Hg] Dr. Greg Goddard Work Phone: [facility] Work Phone: 06-16-2022 21:41-0500 Body height 175.[address] Greg Goddard Work Phone: [facility] Work Phone: 06-16-2022 21:41-0500 Body mass index (BMI) [Ratio] 23.9 kg/m2 Dr. Greg Goddard Work Phone: [facility] Work Phone: 06-16-2022 21:41-0500 Body temperature 97.6 [degF] Dr. Greg Goddard Work Phone: [facility] Work Phone: 06-16-2022 21:41-0500 Body weight 73.[address] Greg Goddard Work Phone: [facility] Work Phone: 06-16-2022 03:08-0500 Body height 175.[address] Greg Goddard Work Phone: [facility] Work Phone: 06-16-2022 03:08-0500 Body mass index (BMI) [Ratio] 24 kg/m2 Dr. Greg Goddard Work Phone: [facility] Work Phone: 06-16-2022 03:08-0500 Body temperature 97.7 [degF] Dr. Greg Goddard Work Phone: [facility] Work Phone: 06-16-2022 03:08-0500 Body weight [address] Greg Goddard Work Phone: [facility] Work Phone: 06-16-2022 03:08-0500 Diastolic blood pressure 77 mm[Hg] Dr. Greg Goddard Work Phone: [facility] Work Phone: 06-16-2022 03:08-0500 Heart rate 92 /min Dr. Greg Goddard Work Phone: [facility] Work Phone: 06-16-2022 03:08-0500 Respiratory rate 15 /min Dr. Greg Goddard Work Phone: [facility] Work Phone: 06-16-2022 03:08-0500 SaO2% (BldA) [Mass fraction] 98 % Dr. Greg Goddard Work Phone: [facility] Work Phone: 06-16-2022 03:08-0500 Systolic blood pressure 136 mm[Hg] Dr. Greg Goddard Work Phone: [facility] Work Phone: 05-14-2022 19:04-0400 Diastolic blood pressure 77 mm[Hg] Dr. Greg Goddard Work Phone: [facility] Work Phone: 05-14-2022 19:04-0400 Heart rate 74 /min Dr. Greg Goddard Work Phone: [facility] Work Phone: 05-14-2022 19:04-0400 Respiratory rate 16 /min Dr. Greg Goddard Work Phone: [facility] Work Phone: 05-14-2022 19:04-0400 SaO2% (BldA) [Mass fraction] 98 % Dr. Greg Goddard Work Phone: [facility] Work Phone: 05-14-2022 19:04-0400 Systolic blood pressure 129 mm[Hg] Dr. Greg Goddard Work Phone: [facility] Work Phone: 05-14-2022 11:40-0400 Body height 175.[address] Greg Goddard Work Phone: [facility] Work Phone: 05-14-2022 11:40-0400 Body mass index (BMI) [Ratio] 23.6 kg/m2 Dr. Greg Goddard Work Phone: [facility] Work Phone: 05-14-2022 11:40-0400 Body temperature 97.5 [degF] Dr. Greg Goddard Work Phone: [facility] Work Phone: 05-14-2022 11:40-0400 Body weight 72.[address] Greg Goddard Work Phone: [facility] Work Phone: 03-11-2022 11:02-0400 Body height 175.26 cm No Primary Care Physician [facility] Work Phone: 03-11-2022 11:02-0400 Body mass index (BMI) [Ratio] 23.4 kg/m2 No Primary Care Physician [facility] Work Phone: 03-11-2022 11:02-0400 Body weight 72.12 kg No Primary Care Physician [facility] Work Phone: 03-11-2022 11:02-0400 Diastolic blood pressure 67 mm[Hg] No Primary Care Physician [facility] Work Phone: 03-11-2022 11:02-0400 Heart rate 71 /min No Primary Care Physician [facility] Work Phone: 03-11-2022 11:02-0400 SaO2% (BldA) [Mass fraction] 97 % No Primary Care Physician [facility] Work Phone: 03-11-2022 11:02-0400 Systolic blood pressure 112 mm[Hg] No Primary Care Physician [facility] Work Phone: 03-03-2022 09:43-0400 Body temperature 97.6 [degF] Dr. Nate Martinez Work Phone: [facility] Work Phone: 03-03-2022 09:43-0400 Diastolic blood pressure 75 mm[Hg] Dr. Nate Martinez Work Phone: [facility] Work Phone: 03-03-2022 09:43-0400 Heart rate 64 /min Dr. Nate Martinez Work Phone: [facility] Work Phone: 03-03-2022 09:43-0400 Respiratory rate 16 /min Dr. Nate Martinez Work Phone: [facility] Work Phone: 03-03-2022 09:43-0400 SaO2% (BldA) [Mass fraction] 100 % Dr. Nate Martinez Work Phone: [facility] Work Phone: 03-03-2022 09:43-0400 Systolic blood pressure 115 mm[Hg] Dr. Nate Martinez Work Phone: [facility] Work Phone: 03-03-2022 08:06-0400 Body height 175.[address] Nate Martinez Work Phone: [facility] Work Phone: 03-03-2022 08:06-0400 Body mass index (BMI) [Ratio] 23.4 kg/m2 Dr. Nate Martinez Work Phone: [facility] Work Phone: 03-03-2022 08:06-0400 Body weight 72.[address] Nate Martinez Work Phone: [facility] Work Phone: 03-02-2022 11:55-0400 Body temperature 97.9 [degF] Dr. Nate Martinez Work Phone: [facility] Work Phone: 03-02-2022 11:55-0400 Diastolic blood pressure 73 mm[Hg] Dr. Nate Martinez Work Phone: [facility] Work Phone: 03-02-2022 11:55-0400 Heart rate 61 /min Dr. Nate Martinez Work Phone: [facility] Work Phone: 03-02-2022 11:55-0400 Respiratory rate 16 /min Dr. Nate Martinez Work Phone: [facility] Work Phone: 03-02-2022 11:55-0400 SaO2% (BldA) [Mass fraction] 99 % Dr. Nate Martinez Work Phone: [facility] Work Phone: 03-02-2022 11:55-0400 Systolic blood pressure 119 mm[Hg] Dr. Nate Martinez Work Phone: [facility] Work Phone: 03-02-2022 10:52-0400 Body mass index (BMI) [Ratio] 23.8 kg/m2 Dr. Nate Martinez Work Phone: [facility] Work Phone: 03-02-2022 10:52-0400 Body weight [address] Nate Martinez Work Phone: [facility] Work Phone: 12-08-2021 08:29-0400 Body mass index (BMI) [Ratio] 25.1 kg/m2 Dr. Nate Martinez Work Phone: [facility] Work Phone: 12-08-2021 08:29-0400 Body temperature 96.5 [degF] Dr. Nate Martinez Work Phone: [facility] Work Phone: 12-08-2021 08:29-0400 Body weight 77.[address] Nate Martinez Work Phone: [facility] Work Phone: 12-08-2021 08:29-0400 Diastolic blood pressure 70 mm[Hg] Dr. Nate Martinez Work Phone: [facility] Work Phone: 12-08-2021 08:29-0400 Heart rate 98 /min Dr. Nate Martinez Work Phone: [facility] Work Phone: 12-08-2021 08:29-0400 Respiratory rate 16 /min Dr. Nate Martinez Work Phone: [facility] Work Phone: 12-08-2021 08:29-0400 SaO2% (BldA) [Mass fraction] 97 % Dr. Nate Martinez Work Phone: [facility] Work Phone: 12-08-2021 08:29-0400 Systolic blood pressure 114 mm[Hg] Dr. Nate Martinez Work Phone: [facility] Work Phone: 12-08-2021 08:29-0400 Body height 175.26 cm SAMPLE DRILLER-C Debra Lipscomb SAMPLE DRILLER Work Phone: [facility] Work Phone: 12-08-2021 08:29-0400 Body mass index (BMI) [Ratio] 25.1 kg/m2 SAMPLE DRILLER-C Debra Lipscomb SAMPLE DRILLER Work Phone: [facility] Work Phone: 12-08-2021 08:29-0400 Body temperature 96.5 [degF] SAMPLE DRILLER-C Debra Lipscomb SAMPLE DRILLER Work Phone: [facility] Work Phone: 12-08-2021 08:29-0400 Body weight 77.16 kg SAMPLE DRILLER-C Debra Deisi SAMPLE DRILLER Work Phone: [facility] Work Phone: 12-08-2021 08:29-0400 Diastolic blood pressure 70 mm[Hg] SAMPLE DRILLER-C Debra Deisi SAMPLE DRILLER Work Phone: [facility] Work Phone: 12-08-2021 08:29-0400 Heart rate 98 /min SAMPLE DRILLER-C Debra Deisi SAMPLE DRILLER Work Phone: [facility] Work Phone: 12-08-2021 08:29-0400 Respiratory rate 16 /min SAMPLE DRILLER-C Debra Deisi SAMPLE DRILLER Work Phone: [facility] Work Phone: 12-08-2021 08:29-0400 SaO2% (BldA) [Mass fraction] 97 % SAMPLE DRILLER-C Debra Deisi SAMPLE DRILLER Work Phone: [facility] Work Phone: 12-08-2021 08:29-0400 Systolic blood pressure 114 mm[Hg] SAMPLE DRILLER-C Debra Deisi SAMPLE DRILLER Work Phone: [facility] Work Phone: 12-02-2021 11:30-0400 Body temperature 98.6 [degF] SAMPLE DRILLER-C Debra Deisi SAMPLE DRILLER Work Phone: [facility] Work Phone: 12-02-2021 11:30-0400 Diastolic blood pressure 68 mm[Hg] SAMPLE DRILLER-C Debra Deisi SAMPLE DRILLER Work Phone: [facility] Work Phone: 12-02-2021 11:30-0400 Heart rate 71 /min SAMPLE DRILLER-C Debra Deisi SAMPLE DRILLER Work Phone: [facility] Work Phone: 12-02-2021 11:30-0400 Respiratory rate 18 /min SAMPLE DRILLER-C Debra Deisi SAMPLE DRILLER Work Phone: [facility] Work Phone: 12-02-2021 11:30-0400 SaO2% (BldA) [Mass fraction] 99 % SAMPLE DRILLER-C Debra Deisi SAMPLE DRILLER Work Phone: [facility] Work Phone: 12-02-2021 11:30-0400 Systolic blood pressure 118 mm[Hg] SAMPLE DRILLER-C Debra Deisi SAMPLE DRILLER Work Phone: [facility] Work Phone: 12-02-2021 10:01-0400 Body height 175.26 cm SAMPLE DRILLER-C Debra Deisi SAMPLE DRILLER Work Phone: [facility] Work Phone: 12-02-2021 10:01-0400 Body mass index (BMI) [Ratio] 25.1 kg/m2 SAMPLE DRILLER-C Debra Deisi SAMPLE DRILLER Work Phone: [facility] Work Phone: 12-02-2021 10:01-0400 Body weight 77.2 kg SAMPLE DRILLER-C Debra Deisi SAMPLE DRILLER Work Phone: [facility] Work Phone: 10-14-2021 08:31-0400 Body height 175.26 cm SAMPLE DRILLER-C Debra Deisi SAMPLE DRILLER Work Phone: [facility] Work Phone: 10-14-2021 08:31-0400 Body mass index (BMI) [Ratio] 24.3 kg/m2 SAMPLE DRILLER-C Debra Deisi SAMPLE DRILLER Work Phone: [facility] Work Phone: 10-14-2021 08:31-0400 Body temperature 98.3 [degF] SAMPLE DRILLER-C Debra Deisi SAMPLE DRILLER Work Phone: [facility] Work Phone: 10-14-2021 08:31-0400 Body weight 74.84 kg SAMPLE DRILLER-C Debra Deisi SAMPLE DRILLER Work Phone: [facility] Work Phone: 10-14-2021 08:31-0400 Diastolic blood pressure 68 mm[Hg] SAMPLE DRILLER-C Debra Deisi SAMPLE DRILLER Work Phone: [facility] Work Phone: 10-14-2021 08:31-0400 Heart rate 76 /min SAMPLE DRILLER-C Debra Deisi SAMPLE DRILLER Work Phone: [facility] Work Phone: 10-14-2021 08:31-0400 Respiratory rate 14 /min SAMPLE DRILLER-C Debra Deisi SAMPLE DRILLER Work Phone: [facility] Work Phone: 10-14-2021 08:31-0400 SaO2% (BldA) [Mass fraction] 99 % SAMPLE DRILLER-C Debra Deisi SAMPLE DRILLER Work Phone: [facility] Work Phone: 10-14-2021 08:31-0400 Systolic blood pressure 110 mm[Hg] SAMPLE DRILLER-C Debra Deisi SAMPLE DRILLER Work Phone: [facility] Work Phone: 10-11-2021 10:35-0400 Body temperature 98 [degF] SAMPLE DRILLER-C Debra Deisi SAMPLE DRILLER Work Phone: [facility] Work Phone: 10-11-2021 10:35-0400 Diastolic blood pressure 56 mm[Hg] SAMPLE DRILLER-C Debra Deisi SAMPLE DRILLER Work Phone: [facility] Work Phone: 10-11-2021 10:35-0400 Heart rate 70 /min SAMPLE DRILLER-C Debra Deisi SAMPLE DRILLER Work Phone: [facility] Work Phone: 10-11-2021 10:35-0400 Respiratory rate 18 /min SAMPLE DRILLER-C Debra Deisi SAMPLE DRILLER Work Phone: [facility] Work Phone: 10-11-2021 10:35-0400 SaO2% (BldA) [Mass fraction] 98 % SAMPLE DRILLER-C Debra Deisi SAMPLE DRILLER Work Phone: [facility] Work Phone: 10-11-2021 10:35-0400 Systolic blood pressure 102 mm[Hg] SAMPLE DRILLER-C Debra Deisi SAMPLE DRILLER Work Phone: [facility] Work Phone: 10-11-2021 08:33-0400 Body height 175.26 cm SAMPLE DRILLER-C Debra Deisi SAMPLE DRILLER Work Phone: [facility] Work Phone: 10-11-2021 08:33-0400 Body mass index (BMI) [Ratio] 24.3 kg/m2 SAMPLE DRILLER-C Debra Deisi SAMPLE DRILLER Work Phone: [facility] Work Phone: 10-11-2021 08:33-0400 Body weight 74.84 kg SAMPLE DRILLER-C Debra Deisi SAMPLE DRILLER Work Phone: [facility] Work Phone: 09-26-2021 16:27-0400 Body temperature 98 [degF] SAMPLE DRILLER-C Debra Deisi SAMPLE DRILLER Work Phone: [facility] Work Phone: 09-26-2021 16:27-0400 Diastolic blood pressure 88 mm[Hg] SAMPLE DRILLER-C Debra Deisi SAMPLE DRILLER Work Phone: [facility] Work Phone: 09-26-2021 16:27-0400 Heart rate 84 /min SAMPLE DRILLER-C Debra Deisi SAMPLE DRILLER Work Phone: [facility] Work Phone: 09-26-2021 16:27-0400 Respiratory rate 16 /min SAMPLE DRILLER-C Debra Deisi SAMPLE DRILLER Work Phone: [facility] Work Phone: 09-26-2021 16:27-0400 SaO2% (BldA) [Mass fraction] 99 % SAMPLE DRILLER-C Debra Deisi SAMPLE DRILLER Work Phone: [facility] Work Phone: 09-26-2021 16:27-0400 Systolic blood pressure 139 mm[Hg] SAMPLE DRILLER-C Debra Deisi SAMPLE DRILLER Work Phone: [facility] Work Phone: 09-26-2021 11:10-0400 Body mass index (BMI) [Ratio] 24.3 kg/m2 SAMPLE DRILLER-C Debra Deisi SAMPLE DRILLER Work Phone: [facility] Work Phone: 09-26-2021 11:10-0400 Body weight 74.84 kg SAMPLE DRILLER-C Debra Deisi SAMPLE DRILLER Work Phone: [facility] Work Phone: 09-13-2021 09:22-0500 Body mass index (BMI) [Ratio] 24.2 kg/m2 SAMPLE DRILLER-C Debra Deisi SAMPLE DRILLER Work Phone: [facility] Work Phone: 09-13-2021 09:22-0500 Body weight 74.38 kg SAMPLE DRILLER-C Debra Deisi SAMPLE DRILLER Work Phone: [facility] Work Phone: 09-13-2021 09:22-0500 Diastolic blood pressure 76 mm[Hg] SAMPLE DRILLER-C Debra Deiis SAMPLE DRILLER Work Phone: [facility] Work Phone: 09-13-2021 09:22-0500 Heart rate 79 /min SAMPLE DRILLER-C Debra Deisi SAMPLE DRILLER Work Phone: [facility] Work Phone: 09-13-2021 09:22-0500 Systolic blood pressure 131 mm[Hg] SAMPLE DRILLER-C Debra Deisi SAMPLE DRILLER Work Phone: [facility] Work Phone: Encounters Encounter Date Encounter Type Care Provider Facility Start: 12-20-2024 End: 12-20-2024 Emergency department patient visit [facility] Facility:[facility] Start: 11-27-2024 End: 11-27-2024 Emergency department patient visit DR ISIDRO UPTON MD [facility] Start: 11-20-2024 ambulatory [facility] Facility: [facility] Start: 11-09-2024 End: 11-09-2024 Emergency department patient visit Jamibeba Gabriel Facility:[facility] Start: 11-02-2024 End: 11-03-2024 Emergency department patient visit NOT RECORDED PHYSICIAN Facility:[facility] Start: 11-02-2024 End: 11-02-2024 Emergency department patient visit [facility] Facility:[facility] Start: 10-24-2024 End: 10-24-2024 ambulatory Yaxavierer Riky Facility:[facility] Start: 10-24-2024 End: 10-24-2024 ambulatory [facility] Facility:[facility] Start: 07-17-2024 ambulatory KATIA LAN [facility] Start: 07-14-2024 End: 07-14-2024 Emergency department patient visit DR WAQAS GARSIA MD [facility] Start: 07-13-2024 End: 07-13-2024 Emergency department patient visit WAQAS HOLGUIN MD [facility] Start: 04-09-2024 End: 04-09-2024 ambulatory KATIA LAN Facility:[facility] Start: 04-09-2024 End: 04-09-2024 Subsequent hospital visit by physician [facility] Work Phone: Radiology Comment on above: Other cirrhosis of l iver (HCC) [K74.69] Start: 01-30-2024 End: 01-30-2024 ambulatory KATIA LAN Facility:[facility] Start: 01-30-2024 End: 01-30-2024 ambulatory BARRINGTON TRAORE Facility:[facility] Start: 01-30-2024 End: 01-30-2024 Patient encounter procedure Barrington Traore MD Work Phone: Gastroenterology Comment on above: Other cirrhosis of l iver (HCC) (Primary Dx) Start: 01-01-2024 End: 01-01-2024 ambulatory PITER GAINES JR Facility:[facility] Start: 01-01-2024 End: 01-01-2024 Patient encounter procedure Piter Gaines MD Work Phone: Neurology Comment on above: Seizure (HCC) (Prima ry Dx) Start: 09-22-2023 End: 09-22-2023 Emergency department patient visit ISIDRO HORNE [facility] Start: 09-20-2023 End: 09-20-2023 ambulatory BARRINGTON TRAORE Facility:[facility] Start: 09-20-2023 End: 09-20-2023 Subsequent hospital visit by physician Barrington Traore MD Work Phone: Gastroenterology Comment on above: Alcoholic cirrhosis of liver without ascites (HCC) [K70.30] Start: 09-19-2023 ambulatory GREG GODDARD [facility] ty:[facility] Start: 09-19-2023 End: 09-19-2023 Subsequent hospital visit by physician Ct [facility] Radiology Comment on above: Alcoholic cirrhosis of liver without ascites (HCC) [K70.30] Start: 09-12-2023 Telephone encounter [facility] Comment on above: Education Of Patient /family; Appointment (Unable to confirm appointment for 09/20/2023) Start: 08-29-2023 End: 08-29-2023 ambulatory BARRINGTON TRAORE Facility:[facility] Start: 08-29-2023 End: 08-29-2023 Patient encounter procedure Barrington Traore MD Work Phone: Gastroenterology Comment on above: Alcoholic cirrhosis of liver without ascites (HCC) (Primary Dx) Start: 08-21-2023 End: 07-16-2024 ambulatory KATIA Light [facility] Start: 07-27-2023 Evaluation and management of inpatient Physician No [facility] Start: 07-27-2023 Emergency department patient visit CIPRIANO Jg GALA [facility] Start: 07-27-2023 Emergency department patient visit Physician No [facility] Start: 07-27-2023 End: 08-08-2023 Evaluation and management of inpatient Physician No [facility] Start: 07-27-2023 End: 08-08-2023 Evaluation and management of inpatient Cipriano Cedeño DO Work Phone: [facility] Comment on above: Fall, initial encoun ter (Primary Dx); Closed fracture of second lumbar vertebra, unspecified fracture morphology, initial encounter (HCC) Start: 04-03-2023 Telephone encounter [facility] [place] Comment on above: Referral - Liver Txp Start: 02-19-2023 End: 02-20-2023 Emergency department patient visit GREG GODDARD [facility] Start: 02-07-2023 End: 02-09-2023 Evaluation and management of inpatient [facility] Start: 09-15-2022 End: 09-17-2022 Evaluation and management of inpatient GREG GODDARD [facility]:[id number] Start: 06-24-2022 End: 06-24-[address] Greg Goddard Work Phone: [facility] Work Phone: Start: 06-24-2022 End: 06-24-[address] Greg Goddard Work Phone: [facility]-Laboratory Start: 06-21-2022 Non-patient / Non-visit Dr. Greg Goddard Work Phone: [facility] Inpatient Physicians Start: 06-20-2022 Non-patient / Non-visit Dr. Greg Goddard Work Phone: [facility] Start: 06-20-2022 Non-patient / Non-visit Dr. Greg Goddard Work Phone: [facility] Inpatient Physicians Start: 06-19-2022 Non-patient / Non-visit Dr. Greg Goddard Work Phone: [facility] Inpatient Physicians Start: 06-18-2022 Non-patient / Non-visit Dr. Greg Goddard Work Phone: [facility] Start: 06-18-2022 Non-patient / Non-visit Dr. Greg Goddard Work Phone: [facility] Inpatient Physicians Start: 06-17-2022 Non-patient / Non-visit Dr. Greg Goddard Work Phone: [facility] Inpatient Physicians Start: 06-17-2022 End: 06-21-2022 Evaluation and management of inpatient Dr. Greg Goddard Work Phone: [facility]-Medical Surgical 3 Start: 06-17-2022 End: 06-17-[address] Greg Goddard Work Phone: [facility] Work Phone: Start: 06-17-2022 End: 06-17-[address] Greg Goddard Work Phone: [facility]-Laboratory Start: 06-17-[address] Greg Goddard Work Phone: [facility] Start: 06-16-2022 End: 06-17-2022 Emergency department patient visit Dr. Greg oGddard Work Phone: [facility]-Emergency Department Start: 06-16-2022 End: 06-16-2022 Emergency department patient visit Dr. Greg Goddard Work Phone: [facility]-Emergency Department Start: 06-14-2022 End: 06-14-[address] Greg Goddard Work Phone: [facility] Work Phone: Start: 06-14-2022 End: 06-14-[address] Greg Goddard Work Phone: [facility]Laboratory Start: 06-03-2022 End: 06-03-[address] Greg Goddard Work Phone: [facility] Gastroenterology Start: 05-23-2022 End: 06-15-[address] Greg Goddard Work Phone: [facility] Work Phone: Start: 05-23-2022 End: 06-15-[address] [facility] Start: 05-14-2022 End: 05-14-2022 Emergency department patient visit Dr. Greg Goddard Work Phone: [facility]-Emergency Department Start: 04-21-2022 End: 04-21-[address] Greg Goddard Work Phone: [facility] Work Phone: Start: 04-21-2022 End: 04-21-[address] [facility] Start: 04-21-[address] [facility] Start: 03-22-2022 End: 03-22-2022 ambulatory No Primary Care Physician [facility] Work Phone: Start: 03-22-2022 End: 03-22-2022 Discharged Recurring No Primary Care Physician [facility]Labor[facility] Start: 03-11-2022 End: 03-11-2022 Patient encounter procedure No Primary Care Physician [facility] Gastroenterology Start: 03-04-2022 End: 03-04-[address] Greg Goddard Work Phone: [facility] Work Phone: Start: 03-04-2022 End: 03-04-2022 Patient encounter procedure No Primary Care Physician [facility]-Laboratory Start: 03-03-2022 Non-patient / Non-visit Dr. Nate Martinez Work Phone: [facility] Start: 03-03-2022 End: 03-03-2022 Admission to same day surgery center Dr. Nate Martinez Work Phone: [facility]-Endoscopy Start: 03-02-2022 Non-patient / Non-visit [facility] Start: 03-02-2022 End: 03-02-2022 Admission to same day surgery center Dr. Nate Martinez Work Phone: [facility]-Endoscopy Start: 02-14-2022 End: 02-14-2022 Discharged Recurring No Primary Care Physician [facility]Laboratory Start: 02-14-[address] Dafne Martinez Work Phone: [facility]Laboratory Start: 02-09-2022 End: 02-09-[address] Greg Goddard Work Phone: [facility] Work Phone: Start: 02-09-2022 End: 02-09-[address] Nate Martinez Work Phone: [facility]-Outpatient Bone Densitometry Start: 12-24-2021 End: 12-24-2021 Patient encounter procedure SAMPLE DRILLER-C Debra Lipscomb SAMPLE DRILLER Work Phone: [facility]-Laboratory Start: 12-17-2021 End: 12-17-2021 Patient encounter procedure SAMPLE DRILLER-C Debra Lipscomb SAMPLE DRILLER Work Phone: [facility] Gastroenterology Start: 12-08-2021 End: 12-08-2021 Patient encounter procedure SAMPLE DRILLER-C Debra Deisi SAMPLE DRILLER [facility] [place] Start: 12-08-2021 End: 12-08-2021 Patient encounter procedure SAMPLE DRILLER-C Debra Deisi SAMPLE DRILLER Work Phone: [facility] Internal Medicine Start: 12-02-2021 Non-patient / Non-visit SAMPLE DRILLER-C Debra Deisi SAMPLE DRILLER Work Phone: [facility] Start: 12-02-2021 End: 12-02-2021 Admission to same day surgery center SAMPLE DRILLER-C Debra Deisi SAMPLE DRILLER Work Phone: [facility]-Endoscopy Start: 11-29-2021 End: 11-29-2021 Patient encounter procedure SAMPLE DRILLER-C Debra Deisi SAMPLE DRILLER Work Phone: [facility]Laboratory Start: 11-19-2021 End: 11-19-2021 Patient encounter procedure SAMPLE DRILLER-C Debra Deisi SAMPLE DRILLER [facility] [place] Start: 11-12-2021 End: 11-12-2021 Discharged Recurring SAMPLE DRILLER-C Debra Deisi SAMPLE DRILLER [facility] Start: 10-27-2021 End: 10-27-2021 Patient encounter procedure SAMPLE DRILLER-C Debra Deisi SAMPLE DRILLER [facility] [place] Start: 10-19-2021 Telephone encounter [facility] Comment on above: Referral - Liver Txp (Intake-LM) Start: 10-14-2021 End: 10-14-2021 Patient encounter procedure SAMPLE DRILLER-C Debra Deisi SAMPLE DRILLER Work Phone: [facility] Internal Medicine Start: 10-13-2021 Telephone encounter Liver Txp Coordinator Work Phone: Transplant Center Comment on above: Referral - Liver Txp Start: 10-11-2021 End: 10-11-2021 Patient encounter procedure SAMPLE DRILLER-C Debra Deisi SAMPLE DRILLER Work Phone: [facility]-Cat Scan, [facility] Start: 10-08-2021 End: 10-08-2021 Patient encounter procedure SAMPLE DRILLER-C Debra Deisi SAMPLE DRILLER Work Phone: [facility]-Ultrasound, [facility] Start: 09-30-2021 End: 09-30-2021 Patient encounter procedure SAMPLE DRILLER-C Debra Deisi SAMPLE DRILLER Work Phone: [facility] Gastroenterology Start: 09-29-2021 End: 09-29-2021 Patient encounter procedure SAMPLE DRILLER-C Debra Deisi SAMPLE DRILLER Work Phone: [facility]Laboratory Start: 09-27-2021 End: 09-27-2021 Patient encounter procedure SAMPLE DRILLER-C Debra Deisi SAMPLE DRILLER Work Phone: [facility]Labor[facility] Start: 09-26-2021 End: 09-26-2021 Emergency department patient visit SAMPLE DRILLER-C Debra Deisi SAMPLE DRILLER Work Phone: [facility]-Emergency Department Start: 09-14-2021 End: 09-14-2021 Patient encounter procedure SAMPLE DRILLER-C Debra Deisi SAMPLE DRILLER Work Phone: [facility]-Laboratory Start: 09-13-2021 End: 09-13-2021 Patient encounter procedure SAMPLE DRILLER-C Debra Deisi SAMPLE DRILLER Work Phone: [facility] Gastroenterology Procedures Date Procedure Procedure Detail Performing Clinician Start: 04-17-2024 PSA screening ISIDRO UPTON Comment on above: Performed By: #### [id number] #### [facility],[address] [place] [address] Start: 04-09-2024 Us abdominal real time w/image limited Barrington Traore MD Work Phone: Start: 10-02-2023 Urinalysis ISIDRO UPTON Comment on above: Result Comment: URINALYSIS Performed By: #### [id number] #### [facility],[address] [address] Start: 09-20-2023 Esophagoscp rig transoral hypopharynx crv jerson Traore MD Work Phone: Start: 08-08-2023 Assay of ammonia Gus Major MD Work Phone: Start: 08-07-2023 Assay of ammonia Gus L Moriah HORNE Work Phone: Start: 08-06-2023 Assay of ammonia Gus Bowen Moriah HORNE Work Phone: Start: 08-05-2023 Gluc bld gluc mntr dev cleared fda spec home use Alex Nogueira MD Work Phone: Start: 08-05-2023 Assay of ammonia Gus Major MD Work Phone: Start: 08-04-2023 Assay of ammonia Gus L Moriah HORNE Work Phone: Start: 08-03-2023 Assay of ammonia Gus Bowen Moriah HORNE Work Phone: Start: 08-03-2023 PLATELET CONFIRMATION Cliff Stradorcasin DO Work Phone: Start: 08-02-2023 Assay of ammonia Gus Bowen Moriah HORNE Work Phone: Start: 08-02-2023 PLATELET CONFIRMATION Cliff Straffin DO Work Phone: Start: 08-01-2023 Assay of ammonia Gus Bowen Moriah HORNE Work Phone: Start: 08-01-2023 PLATELET CONFIRMATION Cliff Straffin DO Work Phone: Start: 07-31-2023 Assay of ammonia Gus L Moriah HORNE Work Phone: Start: 07-31-2023 PLATELET CONFIRMATION Cliff Straffin DO Work Phone: Start: 07-30-2023 Assay of ammonia Gus Major MD Work Phone: Start: 07-30-2023 PLATELET CONFIRMATION Cliff Onofre DO Work Phone: Start: 07-29-2023 Culture bacterial blood aerobic w/id isolates Mckinley Lizama MD Work Phone: Start: 07-29-2023 CULTURE, BLOOD 1 Mckinley Lizama MD Work Phone: Start: 07-29-2023 RESPIRATORY PANEL, MOLECULAR, WITH COVID-19 Yonas Baron MD Work Phone: Start: 07-29-2023 Assay of ammonia Gus Major MD Work Phone: Start: 07-29-2023 PLATELET CONFIRMATION Cliff Onofre DO Work Phone: Start: 07-28-2023 Assay of ammonia Cliff Onofre DO Work Phone: Start: 07-28-2023 Drug [...] Work Phone: Start: 07-27-2023 PLATELET CONFIRMATION Cliff Greggin DO Work Phone: Start: 07-27-2023 Ct cervical [...] Comment: Specimen Type: BLOOD SPEC IMENOrdering Facility: [facility] Address: [address] [place] [id number] Performed By: #### L [id number], TSCR ####[facility] BLOOD BANKCLIA [id number] [address] Start: 06-16-2022 Plain chest X-ray Dr. Greg [...] Duglas Martinez Work Phone: Start: 12-02-2021 Esophagogastroduodenoscopy SAMPLE DRILLER-C Debra Deisi SAMPLE DRILLER Work Phone: Start: 10-27-2021 End: 10-27-2021 Plain x-ray of hand SAMPLE DRILLER-C Debra Deisi SAMPLE DRILLER Work Phone: Start: 10-11-2021 Biopsy/Inj or Needle Placement SAMPLE DRILLER-C Josselyn cca Deisi SAMPLE DRILLER Work Phone: Start: 10-08-2021 Ultrasonography of abdomen SAMPLE DRILLER-C Debra Lipscomb SAMPLE DRILLER Work Phone: Start: 10-08-2021 Ultrasound elastography SAMPLE DRILLER-C Debra Lipscomb SAMPLE DRILLER Work Phone: Bacteria identified in Blood by Culture Dr. Greg Goddard Work Phone: Respiratory Panel (PCR) Dr. Greg Goddard Work Phone: SARS-CoV-2 & FLU Antigen (Rapid) Dr. Greg Goddard Work Phone: Plan of Treatment Date Care Activity Detail Author Start: 09-15-2032 Urine microalbumin profile DTaP,Tdap,Td Vaccine (3 - Td or Tdap) [facility] Start: 07-23-2028 Lipid panel [facility] Start: 04-03-2028 DTaP/Tdap/Td vaccine (2 - Td or Tdap) DTaP/Tdap/Td vaccine (2 - Td or Tdap) [facility] Start: 01-29-2027 Diabetes Screening Diabetes Screening [facility] Start: 08-03-2026 Diabetes Screening Diabetes Screening [facility] Start: 08-01-2024 End: 08-01-2024 Follow-up encounter 08/01/2024 11:30 AM [facility] Gastroenterology [address] [address] Barrington Traore MD [address] [id number] 6 month follow up Gastroenterology Comment on above: 6 month follow up Start: 03-17-2024 Covid-19 Vaccine ( season) Covid-19 Vaccine ( season) [facility] Start: 03-17-2024 Influenza vaccination [facility] Start: 02-09-2024 End: 02-09-2024 Patient encounter procedure 02/09/2024 10:00 AM EDT Appointment Radiology [address] [place] [address] Other cirrhosis of liver (HCC) [K74.69] Radiology Comment on above: Other cirrhosis of liver (HCC) [K74.69] Start: 01-30-2024 End: 01-30-2024 Patient encounter procedure 01/30/2024 2:30 PM EDT Office Visit Gastroenterology [address] [address] Barrington Traore MD [address] [place] [address] Liver cirrhosis Gastroenterology Comment on above: Liver cirrhosis Start: 01-30-2024 End: 04-30-2024 Sfikt-0-Ixfhldwpunm [Mass/volume] in Serum or Plasma [facility] Comment on above: Expected: 01/30/2024, Expires: Start: 01-30-2024 End: 04-30-2024 Comprehensive metabolic 2000 panel - Serum or Plasma [facility] Work Phone: Comment on above: Expected: 01/30/2024, Expires: Start: 08-29-2023 End: 11-28-2023 25-hydroxyvitamin D3 [Mass/volume] in Serum or Plasma VITAMIN D 25 HYDROXY Lab Routine Alcoholic cirrhosis of liver without ascites (HCC) Expected: 08/29/2023, Expires: 11/28/2023 [facility] Work Phone: Comment on above: Expected: 08/29/2023, Expires: Start: 08-29-2023 End: 11-28-2023 ALPHA 1 ANTITRYPSIN PHENOTYPE ALPHA 1 ANTITRYPSIN PHENOTYPE Lab Routine Alcoholic cirrhosis of liver without ascites (HCC) Expected: 08/29/2023, Expires: 11/28/2023 [facility] Work Phone: Comment on above: Expected: 08/29/2023, Expires: Start: 08-29-2023 End: 11-28-2023 Rxhoe-5-Xjxigpxexwi [Mass/volume] in Serum or Plasma ALPHA FETOPROTEIN BL Lab Routine Alcoholic cirrhosis of liver without ascites (HCC) Expected: 08/29/2023, Expires: 11/28/2023 [facility] Work Phone: Comment on above: Expected: 08/29/2023, Expires: Start: 08-29-2023 End: 11-28-2023 CBC panel - Blood by Automated count CBC Lab Routine Alcoholic cirrhosis of liver without ascites (HCC) Expected: 08/29/2023, Expires: 11/28/2023 [facility] Work Phone: Comment on above: Expected: 08/29/2023, Expires: Start: 08-29-2023 End: 11-28-2023 Ceruloplasmin [Mass/volume] in Serum or Plasma CERULOPLASMIN BLD Lab Routine Alcoholic cirrhosis of liver without ascites (HCC) Expected: 08/29/2023, Expires: 11/28/2023 [facility] Work Phone: Comment on above: Expected: 08/29/2023, Expires: Start: 08-29-2023 End: 11-28-2023 Chronic hepatitis differentiation between hepatitis B and C virus panel - Serum or Plasma HEP REMOTE PANEL BL Lab Routine Alcoholic cirrhosis of liver without ascites (HCC) Expected: 08/29/2023, Expires: 11/28/2023 [facility] Work Phone: Comment on above: Expected: 08/29/2023, Expires: Start: 08-29-2023 End: 11-28-2023 Comprehensive metabolic 2000 panel - Serum or Plasma COMP METABOLIC PANEL Lab Routine Alcoholic cirrhosis of liver without ascites (HCC) Expected: 08/29/2023, Expires: 11/28/2023 [facility] Work Phone: Comment on above: Expected: 08/29/2023, Expires: Start: 08-29-2023 End: 11-28-2023 Ferritin [Mass/volume] in Serum or Plasma FERRITIN BLD Lab Routine Alcoholic cirrhosis of liver without ascites (HCC) Expected: 08/29/2023, Expires: 11/28/2023 [facility] Work Phone: Comment on above: Expected: 08/29/2023, Expires: Start: 08-29-2023 End: 11-28-2023 HEPATITIS A ANTIBODY, IGG HEPATITIS A ANTIBODY, IGG Lab Routine Alcoholic cirrhosis of liver without ascites (HCC) Expected: 08/29/2023, Expires: 11/28/2023 [facility] Work Phone: Comment on above: Expected: 08/29/2023, Expires: 4 Start: 08-29-2023 End: 11-28-2023 Iron and Iron binding capacity panel - Serum or Plasma IRON + TIBC Lab Routine Alcoholic cirrhosis of liver without ascites (HCC) Expected: 08/29/2023, Expires: 11/28/2023 [facility] Work Phone: Comment on above: Expected: 08/29/2023, Expires: Start: 08-29-2023 End: 11-28-2023 PT panel - Platelet poor plasma by Coagulation assay PROTHROMBIN TIME/PT Lab Routine Alcoholic cirrhosis of liver without ascites (HCC) Expected: 08/29/2023, Expires: 11/28/2023 [facility] Work Phone: Comment on above: Expected: 08/29/2023, Expires: Start: 08-29-2023 End: 11-28-2023 Thyrotropin [Units/volume] in Serum or Plasma TSH BLD Lab Routine Alcoholic cirrhosis of liver without ascites (HCC) Expected: 08/29/2023, Expires: 11/28/2023 [facility] Work Phone: Comment on above: Expected: 08/29/2023, Expires: Start: 07-17-2023 Behavioral Health Screening Behavioral Health Screening [facility] Start: 07-17-2023 Depression Assessment Depression Assessment [facility] Start: 03-17-2023 Covid-19 Vaccine () Covid-19 Vaccine () [facility] Start: 03-17-2023 Influenza vaccination Influenza Vaccine (#1) [facility] Start: 02-14-2023 Influenza vaccination Flu vaccine (#1) [facility] Start: 06-22-2022 [facility] Work Phone: Start: 06-21-2022 Patient discharge [facility] Work Phone: Start: 06-21-2022 Referral to service [facility] Work Phone: Start: 06-20-2022 End: 06-20-2022 Blood culture [facility] Work Phone: Start: 06-20-2022 [facility] Work Phone: Start: 06-20-2022 Respiratory secretion precautions [facility] Work Phone: Start: 06-20-2022 [facility] Work Phone: Start: 06-18-2022 Application of intermittent pneumatic compression device [facility] Work Phone: Start: 06-17-2022 Following clinical pathway protocol [facility] Work Phone: Start: 06-17-2022 Ambulation without limitation [facility] Work Phone: Start: 06-17-2022 Assessment of risk of venous thromboembolism [facility] Work Phone: Start: 06-17-2022 Insertion of catheter into peripheral vein [facility] Work Phone: Start: 06-17-2022 Providing care according to standard [facility] Work Phone: Start: 06-17-2022 Referral to gastroenterology service [facility] Work Phone: Start: 06-17-2022 [facility] Work Phone: Start: 06-17-2022 Admission procedure [facility] Work Phone: Start: 06-17-2022 Patient referral to dietitian [facility] Work Phone: Start: 03-03-2022 Colsc flx w/rmvl of tumor polyp lesion snare tq COLONOSCOPY W/LESION REMOVAL [facility] Work Phone: Start: 03-03-2022 Patient discharge [facility] Work Phone: Start: 03-02-2022 Colonoscopy flx dx w/collj spec when pfrmd DIAGNOSTIC COLONOSCOPY [facility] Work Phone: Start: 03-02-2022 Patient discharge [facility] Work Phone: Start: 12-02-2021 Egd band ligation esophgeal/gastric varices EGD VARICES LIGATION [facility] Work Phone: Start: 12-02-2021 Patient discharge [facility] Work Phone: Start: 2019 Screening for malignant neoplasm of colon [facility] Start: 1993 Hepatitis A vaccine (1 of 2 - Risk 2-dose series) Hepatitis A vaccine (1 of 2 - Risk 2-dose series) [facility] Start: 1993 Hepatitis B Vaccine (1 of 3 - 19+ 3-dose series) Hepatitis B Vaccine (1 of 3 - 19+ 3-dose series) [facility] Start: 1993 Shingrix Vaccine (1 of 2) Shingrix Vaccine (1 of 2) [facility] Start: 1992 Anxiety Screening Anxiety Screening [facility] Start: 1992 Depression Screening Depression Screening [facility] Start: 1992 Hepatitis C screening Hepatitis C screen [facility] Start: 1989 HIV screening HIV screen [facility] Start: 1986 Depression Screen Depression Screen [facility] Start: 1980 Pneumococcal 0-64 years Vaccine (1 - PCV) Pneumococcal 0-64 years Vaccine (1 - PCV) [facility] Start: 1980 Pneumococcal vaccination Pneumococcal Vaccine (1 of 2 - PCV) [facility] Start: 1974 COVID-19 Vaccine (#1) COVID-19 Vaccine (#1) [facility] Start: 1974 Hepatitis B vaccine (1 of 3 - 3-dose series) Hepatitis B vaccine (1 of 3 - 3-dose series) [employer] Bacteria identified in Blood by Culture Blood Culture [facility] Work Phone: Blood culture [facility] Work Phone: End: 09-27-2024 CT Liver W contrast IV CT LIVER W IVCON Radiology Routine Alcoholic cirrhosis of liver without ascites (HCC) 1 Occurrences starting 08/29/2023 until 09/27/2024 [facility] Work Phone: Comment on above: 1 Occurrences starting 08/29/2023 until 09/27/2024 CT Liver W contrast IV CT LIVER W IVCON Radiology Routine Alcoholic cirrhosis of liver without ascites (HCC) 09/19/2023 2:34 PM EST [facility] Work Phone: End: 08-29-2024 EGD - THERAPEUTIC, EUS, OR TUBE INTERVENTIONS EGD - THERAPEUTIC, EUS, OR TUBE INTERVENTIONS Endoscopy Routine Alcoholic cirrhosis of liver without ascites (HCC) 1 Occurrences starting 08/29/2023 until 08/29/2024 [facility] Work Phone: Comment on above: 1 Occurrences starting 08/29/2023 until 08/29/2024 Oxygen therapy [[facility] Data Set] Initiate Oxygen Therapy Protocol Respiratory Care Routine As Needed until discontinued starting 07/27/[address] [facility] [employer] Comment on above: As Needed until discontinued starting Patient Education [facility] Work Phone: Patient referral [facility] Work Phone: Procedure [facility] Work Phone: Serum insulin measurement [facility] Work Phone: Spirometry panel Incentive nessa metry Respiratory Care Routine Every 2hr while awake until discontinued starting 07/28/[address] [facility] [employer] Comment on above: Every 2hr while awake until discontinued starting 07/28/2023 End: 02-28-2025 US Abdomen RUQ US ABD RIGHT UPPER QUADRANT Radiology Routine Other cirrhosis of liver (HCC) 1 Occurrences starting 01/30/2024 until 02/28/2025 [facility] Comment on above: 1 Occurrences starting 01/30/2024 until 02/28/2025 [facility] Immunizations Immunization Date Immunization Notes Care Provider Giovany finley 11-27-2024 tetanus toxoid, redu dominick diphtheria toxoid, and acellular pertussis vaccine, adsorbed DR ISIDRO UPTON MD [facility] 09-15-2022 tetanus toxoid, redu dominick diphtheria toxoid, and acellular pertussis vaccine, adsorbed DR ISIDRO UPTON MD [facility] 04-03-2018 tetanus toxoid, redu dominick diphtheria toxoid, and acellular pertussis vaccine, adsorbed Ashia Sinha RN [facility] Payers Date Payer Category Payer Self-pay [id number] 2023 Medicaid [id number] 2023 Private Health Insurance HUMANA HUMANA MEDICAID [facility] [id number] 2023-Present [address] [address] [place] [address] Medicaid [id number] 2023 Medicaid [id number] 2023 Unknown [id number] 2023 Unknown [id number] 2022 Unknown [employer] CARD PPO OOS [id number] 2022-Present [phone] [address] [place] [address] PPO [id number] 2021 Unknown [id number] 2021 Unknown [employer] C[employer] PPO OOS [id number] 2021-Present [phone] [address] [place] [address] PPO [id number] 1974 Unknown [id number] 2.16.840.1.279685.3.579.2.9 03 1974 Unknown [id number] 2.16.840.1.854306.3.579.2.9 02 1974 Unknown [id number] 2.16.840.1.869409.3.579.2.2 04 1974 Unknown [id number] 2.16.840.1.361935.3.579.2.2 04 1974 Unknown [id number] 2.16.840.1.614537.3.579.2.2 04 1974 Unknown [id number] 2.16.840.1.210629.3.579.2.2 04 1974 Unknown [id number] 2.16.840.1.390370.3.579.2.2 04 1974 Unknown [id number] 2.16.840.1.553777.3.579.2.2 04 1974 Unknown [id number] 2.16.840.1.252994.3.579.2.6 51 1974 Unknown [id number] 2.16.840.1.342902.3.579.2.6 51 1974 Unknown [id number] 2.16.840.1.527099.3.579.2.6 51 1974 Unknown [id number] 2.16.840.1.479066.3.579.2.6 27 1974 Unknown [id number] 2.16.840.1.857859.3.579.2.6 27 1974 Unknown [id number] 2.16.840.1.192028.3.579.2.6 27 1974 Unknown [id number] 2.16.840.1.689515.3.579.2.6 27 Medicaid [id number] Unknown [facility] PACKAGE PLAN [id number] Unknown [id number] 2.16.840.1.994534.3.579.2.4 62 Unknown [id number] 2.16.840.1.810598.3.579.2.4 62 Unknown [id number] 2.16.840.1.799246.3.579.2.4 62 Unknown [id number] 2.16.840.1.583849.3.579.2.4 62 Unknown [id number] 2.16.840.1.421350.3.579.2.4 62 Unknown [id number] 2.16.840.1.494081.3.579.2.4 62 Social History Date Type Detail Facility Start: 10-11-2021 End: 06-17-2022 Tobacco smoking status NHIS Unknown if ever smoked [facility] Start: 1975 Sex Assigned At Male [facility] Start: 1975 Sex Assigned At Not on file C [facility] Start: 10-02-2021 End: 10-12-2021 Exposure to SARS-CoV-2 (event) Not sure [facility] Start: 12-07-2022 End: 01-30-2024 History of Social function [employer] Start: 12-07-2022 End: 01-30-2024 Area Deprivation Index [employer] National Score (1-10 0), lower number is lower risk 70 [facility] Has the [employer], or [employer] threatened to shut off services in your home in past 12Mo No [employer] How often to you hav e a drink containing alcohol? Never [employer] (I/We) worried samir er (my/our) food would run out before (I/we) got money to buy more. Never true [employer] Start: 08-29-2023 Tobacco smoking stat us NHIS Never smoked tobacco [facility] Start: 08-29-2023 Tobacco use and exposure Smoke less tobacco non-user [facility] Start: 08-29-2023 End: 01-30-2024 Alcohol intake Ex-drinker (finding) [facility] Start: 08-29-2023 Tobacco Comment Vape nicotine [facility] Tobacco Nicotine Use: Va ping Product in Last 90 Days. [facility] Tobacco smoking status [facility] Start: 07-13-2024 Sex Male (finding) [facility] Start: 11-02-2024 Tobacco smoking status Ex-smoker (fi nding) [facility] Medical Equipment Procedure Code Equipment [...] Ti-6al-4v 2.0mm X 8mm Thd 10mm (07/17) [id number] Start: 09-16-2022 Locking Screw 2.7x13mm [id number] S tart: 09-16-2022 L1 Mmf Screw Dri ll Free Ti-6al-4v 2.0mm X 8mm Thd 10mm (07/17) [id number] Start: 09-16-2022 Goals Date Patient Goal Desired Activity /State Functional Status Date Assessment Result Facility 11-27-2024 Functional Status Assistive Device None A [facility] 11-27-2024 Functional Status Standard Safet y ID band on, Call device within reach, Bed in low position, Wheels locked, Upper/Half-Length side-rails up, Phone within reach [facility] 07-14-2024 Functional Status Activity Jayna tance Minimum assistance [facility] 07-14-2024 Functional Status Standard Safet y ID band on, Call device within reach, Bed in low position, Wheels locked, Upper/Half-Length side-rails up, Safety level maintained [facility] 07-13-2024 Functional Status Assistive Device Wheelc hair [facility] 07-13-2024 Functional Status Standard Safet y ID band on, Call device within reach, Bed in low position, Wheels locked, Upper/Half-Length side-rails up, Bedside Cart Locked [facility] 06-21-2022 Functional status Ambulates [facility] Work Phone: Mental Status Date Assessment Result Facility 11-27-2024 Mental Status Orientation Oriented x 4 [facility] 11-27-[address] [facility] 07-14-2024 Mental Status Orientation Oriented x 4 [facility] 07-14-[address] [facility] 07-13-2024 Mental Status Orientation Oriented x 4 [facility] 07-13-[address] [facility] 06-21-2022 Cognitive function Awake;Alert;A ppropriate;Follow s Commands [facility] Work Phone: 06-20-2022 Cognitive function Voice/Name [facility] Work Phone: 06-16-2022 Cognitive function Level Of Cons ciousness Awake;Alert;Appropriate;Follow s Commands [facility] Work Phone: 06-16-2022 Cognitive function Voice/Name [facility] Work Phone: 05-14-[address] [facility] Work Phone: 03-03-2022 Cognitive function Level Of Consciousness Drowsy [facility] Work Phone: 03-03-2022 Cognitive function Patient Orien tation Person;Place;Time [facility] Work Phone: 03-02-2022 Cognitive function Voice/Name [facility] Work Phone: 12-02-2021 Cognitive function Follows Commands [facility] Work Phone: 10-11-2021 Cognitive function Voice/Name [facility] Work Phone: 09-26-2021 Cognitive function Level Of Cons ciousness Awake;Appropriate;Follows Commands;Disoriented [facility] Work Phone: Clinical Notes 10-13-2021 to 11-27-2024 Note Date & Type Note Facility 11-27-2024 Nurse Progress note kolby care delayed, now arrival ETA is 2200 Digitally Signed by Dora Floyd RN on 11/27/2024 08:59 PM [facility] 11-27-2024 Hospital Discharg e instructions [...] pain medicines were prescribed, you can use hmwq-dkp-nfozkml pain medicines. Follow instructions for taking any [...] painful when eating. You may use an jqje-iwc-zgdnspl local numbing solution for pain relief. If [...] control the wound bleeding with direct pressure. 9319-3082 [employer]. [address] [place] [address]. All rights reserved. This information is not intended as a substitute for professional medical care. Always follow your healthcare professional's instructions. Follow Up Care 11/27/2024 18:05:55 With:Follow up with primary care provider Address:Unknown When:2-4 days [facility] 11-27-2024 Nurse Progress note Called [facility] to arrange transport back at [facility] Told 60 min ETA. Called Reece ortiz to give update and there was no answer. Digitally Signed by Dora Floyd RN on 11/27/2024 07:30 PM [facility] 11-27-2024 Note Discharge Instructions Thank you for allowing [facility] to assist you with your healthcare needs. [...] pain medicines were prescribed, you can use gggi-gbo-jwgdvfg pain medicines. Follow instructions for taking any [...] painful when eating. You may use an wzcp-wwe-rjhekoi local numbing solution for pain relief. If [...] control the wound bleeding with direct pressure. [id number] [employer]. [address] [place] [address], [place] [address]. All rights reserved. This information is not intended as a substitute for professional medical care. Always follow your healthcare professional's instructions. Additional Information VACCINATE! IT SAVES LIVES! Members of the community who have not yet received the COVID-19 vaccine and would like to receive it can visit one of [facility] vaccine clinics. There are many vaccine clinic locations within the [facility]. For locations and available times, please visit [email or web address] It is important to note that some COVID mobile vaccine clinics are held outdoors and may be canceled in rainy or stormy conditions. To learn more about pediatric vaccinations (ages 5-11), we invite you to visit the [facility] webpage. [email or web address] To learn more about the COVID-19 vaccine, we invite you to visit the CDC website for a list of frequently asked questions. https://www.cdc.gov/coronavirus/ 2019-ncov/vaccines/faq.html [facility] Patient Portal Access Instructions: Stay connected with your healthcare team and access your personal medical information anytime with the [facility] Patient Portal. If you would like a full copy of your medical records please contact the [facility] Medical Records Department Monday through Monday between 8a.m. and 4:30p.m. Please follow the directions below to access the portal: 1.Access the email account you provided upon registration to the [facility].2.Look for an invitation email from [facility].3.Open the email and access the invitation link: Accept Invitation to [facility]4.Fill in the required blair to create your account. Sign into www.[email or web address] PDF with your username and password that you [...] you will allow to register on the [facility] Patient Portal for access to your information. You can also access the [facility] Patient Portal on the [employer]. Simply click on Health Records under Health Data and then click on the [employer] logo. HOW TO SAFELY DISPOSE OF PRESCRIPTION [...] Call your local pharmacy or go to [email or web address]/[email or web address] to find one close to you.3.Make use of household items: Use cat litter or old coffee grounds to dispose medications if other options are not available. Mix your drugs with these household products, seal them in an airtight container and throw it into the garbage. Call [facility]: [phone] to be sure your drugs can be [...] aware that I should contact my doctor. 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 liver documented in this encounter [facility] note* Diagnosis Alcoholic cirrhosis of liver without ascites (HCC) Alcoholic cirrhosis of liver documented in this encounter [facility] note* Diagnosis Seizure (HCC)- Primary Other convulsions documented in this encounter [facility] note* Diagnosis Other cirrhosis of liver (HCC)- Primary documented in this encounter [facility] note* Diagnosis Other cirrhosis of liver (HCC) documented in this encounter [facility] for referral (narrative)* Outpatient Procedure (Routine) - Closed Specialty Diagnoses / Procedures [facility] Diagnoses Alcoholic cirrhosis of liver without ascites (HCC) Procedures EGD - THERAPEUTIC, EUS, OR TUBE INTERVENTIONS EGD BAND LIGATION ESOPHGEAL/GASTRIC VARICES Barrington Traore MD [id number] [facility] Disease [address] [address] Referral ID Status Reason Start Date Expiration Date V isits Requested Visits Authorized [id number] Closed Auto-Generate d Referral 08/29/2023 08/29/2024 1 1 [facility] for referral (narrative)* Diagnostic Procedure Only (Routine) - Authorized Specialty Diagnoses / Procedures [facility] Referred To Contact US IMAGING Diagnoses Other cirrhosis of liver (HCC) Procedures US ABD RIGHT UPPER QUADRANT US ABDOMINAL REAL TIME W/IMAGE LIMITED Barrington Traore MD [address] [place] [address] Us Imaging [id number] Referral ID Status Reason Start Date Expiration Date Visits Requested Visits Authorized [id number] Authorized Auto-Generat ed Referral 01/30/2024 02/28/2025 1 1 [facility] for referral (narrative)* Diagnostic Procedure Only (Routine) - Closed Specialty Diagnoses / Procedures [facility] Referred To Contact US IMAGING Diagnoses Other cirrhosis of liver (HCC) Procedures US ABD RIGHT UPPER QUADRANT US ABDOMINAL REAL TIME W/IMAGE LIMITED Barrington Traore MD [address] [phone] [facility] [address] Referral ID Status Reason Start Date Expiration Date V isits Requested Visits Authorized [id number] Closed Auto-Generate d Referral 01/30/2024 02/28/2025 1 1 [facility]patient Procedure (Routine) - Closed Specialty Diagnoses / Procedures Referred By Sayra t Referred To Contact [facility] Diagnoses Alcoholic cirrhosis of liver without ascites (HCC) Procedures EGD - THERAPEUTIC, EUS, OR TUBE INTERVENTIONS EGD BAND LIGATION ESOPHGEAL/GASTRIC VARICES Barrington Traore MD [address] [place] [address] [address] Referral ID Status Reason Start Date Expiration Date V isits Requested Visits Authorized [id number] Closed Auto-Generate d Referral 08/29/2023 08/29/2024 1 1 [facility] Chief Complaint and Reason for Visit Chief [...] hepatitis without ascites Alcoholic hepatitis without ascites SAMPLE DRILLER, NPP SENT Reason for Visit Alcoholic hepatitis Elevated bilirubin Hepatic encephalopathy Alcoholic hepatitis Diabetes mellitus type 2 in nonobese Hepatic encephalopathy Cirrhosis Diabetes mellitus type 2 in nonobese Hepatic encephalopathy HTN (hypertension) Chief Complaint GET ESTABLISHED/LIVE R ISSUES E ORDERS CONFUSION EORDER E ORDER 2 WK FU Alcoholic hepatitis without ascites Alcoholic hepatitis without ascites SAMPLE DRILLER, NPP SENT [facility]- PAIN- COPY PCP/ ADD XRAY Reason for Visit Alcoholic hepatitis Elevated bilirubin Hepatic encephalopathy Alcoholic hepatitis Diabetes mellitus type 2 in nonobese Hepatic encephalopathy Cirrhosis Diabetes mellitus type 2 in nonobese Hepatic encephalopathy HTN (hypertension) Chief Complaint GET ESTABLISHED/LIVE R ISSUES E ORDERS CONFUSION EORDER E ORDER 2 WK FU Alcoholic hepatitis without ascites Alcoholic hepatitis without ascites SAMPLE DRILLER, NPP SENT [facility]- PAIN- COPY PCP/ [...] hepatitis without ascites Alcoholic hepatitis without ascites SAMPLE DRILLER, NPP SENT [facility]- PAIN- COPY PCP/ [...] hepatitis without ascites Alcoholic hepatitis without ascites SAMPLE DRILLER, NPP SENT [facility]- PAIN- COPY PCP/ [...] No September 26, 2021 11:44am Power of Infection Control Practitioner No September 26 11:44am Advance Directive Response Recorded Date/ Time Living Will No November 30, 2021 1 1:57am Power of Infection Control Practitioner No November 30, 2021 11:57am Advance Directive Response Recorded Date/ Time Living Will No February 28 9:56am Power of Infection Control Practitioner No February 28 022 9:56am Advance Directive Response Recorded Date/ Time Name of Medical Power of Infection Control Practitioner May 14, 2022 12:24pm Living Will No May 14 12:24pm Power of Infection Control Practitioner Yes May 14, 2022 12:24pm Advance Directive Response Recorded Date/ Time Name of Medical Power of Infection Control Practitioner May 14, 2022 11:24am Living Will No May 14 11:24am Power of Infection Control Practitioner Yes May 14, 2022 11:24am Advance Directive Response Recorded Date/ Time Name of Medical Power of Infection Control Practitioner May 14, 2022 11:24am Living Will No June 16 3:10am Power of Infection Control Practitioner No June 16, 2022 3:10am Advance Directive Response Recorded Date/ Time Name of Medical Power of Infection Control Practitioner May 14, 2022 11:24am Living Will No June 16 10:05pm Power of Infection Control Practitioner No June 16, 2022 10:05pm Advance Directive Response Recorded Date/ Time Name of Medical Power of Infection Control Practitioner May 14, 2022 11:24am Name of Medical Power of Infection Control Practitioner nicolle rojo - to bring in copy June 17, 2022 11:03pm Living Will No June 17 11:03pm Power of Infection Control Practitioner Yes June 17, 2022 11:03pm Latest Code [...] STUDY 1/> SITES AXIAL SKEL OFFICE/OUTPATIENT [facility] MDM 60-[address] ABDOMEN W & W/O CONTRAST CT ANGIOGRAPHY CHEST W/CONTRAST/NONCONTRAST MRI ABDOMEN W/O & W/CONTRAST MATERIAL COLLECTION VENOUS BLOOD VENIPUNCTURE Debra Lipscomb [address] [address] [facility] [address] [place] [address] Referral ID Status Reason Start Date Expiration Date Visits Requested Visits Authorized [id number] Outside PCP PCP Requested Referral Financial Clearance Required - [employer] 10/13/2021 10/13/2022 99 99 Specialty Diagnoses / Procedures Referred By Sayra bruce Referred To Contact CT IMAGING Diagnoses Alcoholic cirrhosis of liver without ascites (HCC) Procedures CT LIVER W IVCON CT ABDOMEN W/CONTRAST Barrington Traore MD [address] [place] [address] Ct Imaging [place] [address] Referral ID Status Reason Start Date Expiration Date Visits Requested Visits Authorized [id number] Authorized Auto-Generat ed Referral 08/29/2023 09/27/2024 1 1 Specialty Diagnoses / Procedures Referred By Sayra t Referred To Contact [facility] Diagnoses Alcoholic cirrhosis of liver without ascites (HCC) Procedures EGD - THERAPEUTIC, EUS, OR TUBE INTERVENTIONS EGD BAND LIGATION ESOPHGEAL/GASTRIC VARICES Barrington Traore [facility] [address] [facility] [place] [address] [facility] Disease [place] [address] [place] [address] Referral ID Status Reason Start Date Expiration Date Visits Requested Visits Authorized [id number] Authorized Auto-Generat ed Referral 08/29/2023 08/29/2024 1 [...] or prosecute any alcohol or drug abuse patient.[facility] the event this information is protected by the Federal Confidentiality of Alcohol and Drug Abuse Patient Records regulations: The Federal rules restrict any use of the information to criminally investigate or prosecute any alcohol or drug abuse patient.[facility] the event this information is protected by the Federal Confidentiality of Alcohol and Drug Abuse Patient Records regulations: The Federal rules restrict any use of the information to criminally investigate or prosecute any alcohol or drug abuse patient.[facility] the event this information is protected by the Federal Confidentiality of Alcohol and Drug Abuse Patient Records regulations: The Federal rules restrict any use of the information to criminally investigate or prosecute any alcohol or drug abuse patient.[facility] the event this information is protected by the Federal Confidentiality of Alcohol and Drug Abuse Patient Records regulations: The Federal rules restrict any use of the information to criminally investigate or prosecute any alcohol or drug abuse patient.[facility] the event this information is protected by the Federal Confidentiality of Alcohol and Drug Abuse Patient Records regulations: The Federal rules restrict any use of the information to criminally investigate or prosecute any alcohol or drug abuse patient.[facility] the event this information is protected by the Federal Confidentiality of Alcohol and Drug Abuse Patient Records regulations: The Federal rules restrict any use of the information to criminally investigate or prosecute any alcohol or drug abuse patient.[facility] the event this information is protected by the Federal Confidentiality of Alcohol and Drug Abuse Patient Records regulations: The Federal rules restrict any use of the information to criminally investigate or prosecute any alcohol or drug abuse patient.[facility] the event this information is protected by the Federal Confidentiality of Alcohol and Drug Abuse Patient Records regulations: The Federal rules restrict any use of the information to criminally investigate or prosecute any alcohol or drug abuse patient.[facility] the event this information is protected by the Federal Confidentiality of Alcohol and Drug Abuse Patient Records regulations: The Federal rules restrict any use of the information to criminally investigate or prosecute any alcohol or drug abuse patient.[facility] Reason for Visit (unrecogniz ed section and content) Reason Comments Referral - Liver Txp Reason Comments Referral - Liver Txp Intake-LM Reason Comments Referral - Liver Txp Reason Comments Fall Pt sent in from [facility] after a fall. Pt had an xray and they reported a fracture. Specialty Diagnoses / Procedures Referred By Contac t Referred To Contact Diagnoses Fall, initial encounter Closed fracture of second lumbar vertebra, unspecified fracture morphology, initial encounter (HCC) Fall (on) (from) other stairs and steps, initial encounter Alex Nogueira MD [address] [place] [address] [facility] [address] [place] [address] Referral ID Status Reason Start Date Expiration Date Visits Re quested Visits Authorized [id number] 1 1 Reason Comments New Patient Cirrhosis liver Reason Comments Education Of Patient/family Appointment Unable to confirm ap pointment for 09/20/2023 Specialty Diagnoses / Procedures Referred By Sayra t Referred To Contact CT IMAGING Diagnoses Alcoholic cirrhosis of liver without ascites (HCC) Procedures CT LIVER W IVCON CT ABDOMEN W/CONTRAST Barrington Traore MD [id number] Imaging [place] [address] Referral ID Status Reason Start Date Expiration Date V isits Requested Visits Authorized [id number] Closed Auto-Generate d Referral 08/29/2023 09/27/2024 1 1 Reason Comments New Patient Pt presented [facility], reported ER visit [facility] for Hepatic concerns. Reason Comments Established Patient Cirrhosis Reason Comments Radiology US Specialty Diagnoses / Procedures Referred By Contac t Referred To Contact US IMAGING Diagnoses Other cirrhosis of liver (HCC) Procedures US ABD RIGHT UPPER QUADRANT US ABDOMINAL REAL TIME W/IMAGE LIMITED Barrington Traore MD [address] [place] [id number] [place] [address] Referral ID Status Reason Start Date Expiration Date V isits Requested Visits Authorized [id number] Closed Auto-Generate d Referral 01/30/2024 02/28/2025 1 1 (unrecognized sect ion and content) No Status Records FoundNo Status Records FoundNo Status Records FoundNo Status Records FoundNo Status Records FoundNo Status Records FoundNo Status Records FoundNo Status Records FoundNo Status Records FoundNo Status Records FoundNo Status Records Found INFORMATION SOURCE (unrecogn ized section and content) DATE CREATED AUTHOR 10/22/2021 [facility] DATE CREATED AUTHOR AUTHOR'S ORGANIZ ATION 09/23/2022 [facility] DATE CREATED AUTHOR AUTHOR'S ORGANIZ ATION 03/18/2023 [facility] DATE CREATED AUTHOR AUTHOR'S ORGANIZ ATION 03/24/2023 [facility] DATE CREATED AUTHOR AUTHOR'S ORGANIZ ATION 08/09/2023 [facility] DATE CREATED AUTHOR AUTHOR'S ORGANIZ ATION 09/22/2023 [facility] DATE CREATED AUTHOR AUTHOR'S ORGANIZ ATION 09/22/2023 [facility] DATE CREATED AUTHOR AUTHOR'S ORGANIZ ATION 04/11/2024 [facility] DATE CREATED AUTHOR AUTHOR'S ORGANIZ ATION 07/19/2024 [facility] DATE CREATED AUTHOR AUTHOR'S ORGANIZ ATION 12/01/2024 [facility] DATE CREATED AUTHOR AUTHOR'S ORGANIZ ATION 12/28/2024 [facility] Care Teams (unrecognized sec tion and content) Access Tech Relationship Specialty Start Date End Date Greg Goddard MD [address] [place], [place] [id number] PCP - General Internal Medicine 08/18/22 Access Tech Relationship Specialty Start Date End Date Greg Goddard MD [address] [place], [place] [address] PCP - General Internal Medicine 08/18/22 Dewayne Eric [address] [place] [address] Referring Internal Medicine 06/19/23 Access Tech Relationship Specialty Start Date End Date Greg Goddard MD [address] [place] [address] PCP - General Internal Medicine 08/18/22 [facility] [address] [place] [address] Referring Internal Medicine 06/19/23 Access Tech Relationship Specialty Start Date End Date Greg Goddard MD [address] [place] [address] PCP - General Internal Medicine 08/18/22 [facility] [address] [address] Referring Internal Medicine 06/19/23 Access Tech Relationship Specialty Start Date End Date Greg Goddard MD [address] [place] [address] PCP - General Internal Medicine 08/18/22 [facility] [address] [address] Referring Internal Medicine 06/19/23 Access Tech Relationship Specialty Start Date End Date Katia Lan MD [address] [place] [address] PCP - General Infectious Diseases 10/10/23 [facility] [address] [address] 122- Referring Internal Medicine 06/19/23 Access Tech Relationship Specialty Start Date End Date Katia Lan MD [address] [address] PCP - General Infectious Diseases 10/10/23 Dewayne Eric [address] [place] [address] [address] [place], [place] [address] Referring Internal Medicine 06/19/23 Access Tech Relationship Specialty Start Date End Date Katia Lan MD [address] [address] PCP - General Infectious Diseases 10/10/23 Dewayne Eric [address] [facility] [address] [place], [place] [address] Referring Internal Medicine 06/19/23 Ordered Prescriptions (unrec [...] Marrufo RN)1349 (Given - Provider: Sloane Serrato RN)2124 (Not Given - Provider: Betina Pavon RN - Reason: Patient/family refused) 0548 (Given - Provider: Betina Pavon RN)1338 (Not Given - Provider: Dai Wong RN - Reason: Patient/family refused)2135 (Given - Provider: Mkcinley Zaidi RN) 0553 (Given - Provider: Mckinley Zaidi RN)1400 (Due)2200 (Due) lactulose (CHRONULAC) 10 GM/15ML solution 40 g 40 g, Oral, 4 TIMES DAILY, First dose on Mon07/28/23 at 1300, Until Discontinued 0759 (Given - Provider: Sloane Serrato RN)1347 (Given - Provider: Sloane Serrato RN)1745 (Given - Provider: Sloane Serrato RN)2124 (Not Given - Provider: Betina Pavon RN - Reason: Patient/family refused - Comment: multiple bowel movements) 0831 (Not Given - Provider: Dai Wong RN - Reason: Patient/family refused)1255 (Not Given - Provider: Dai Wong RN - Reason: Patient/family refused)161 (Not Given - Provider: Dai Wong RN - Reason: Patient/family refused)213 (Given - Provider: Mckinley Zaidi RN) 0904 (Given - Provider: Sloane Serrato RN)1300 (Due)1700 (Due)2100 (Due) methocarbamol (ROBAXIN) tablet 500 mg 500 mg, Oral, 4 TIMES DAILY, First dose on Mon07/27/23 at 2230, Until Discontinued 0800 (Given - Provider: Sloane Serrato RN)1348 (Given - Provider: Sloane Serrato RN)1746 (Given - Provider: Sloane Serrato RN)2122 (Given - Provider: Betina Pavon RN) 0831 (Given - Provider: Dai Wong RN)1338 (Not Given - Provider: Dai Wong RN - Reason: Patient/family refused)161 (Given - Provider: Dai Wong RN)213 (Given - Provider: Mckinley Zaidi RN) 0907 [...] Sloane Serrato RN)2121 (Given - Provider: Betina Pavon RN) 0830 (Given - Provider: Dai Wong RN)2131 (Given - Provider: Mckinley Zaidi RN) 0908 (Given - Provider: Sloane Serrato RN)2100 (Due) sennosides-docusate sodium (SENOKOT-S) 8.6-50 MG tablet 1 tablet 1 tablet, Oral, 2 TIMES DAILY, First dose on Mon07/27/23 at 2230, Until Discontinued 0800 (Given - Provider: Sloane Serrato RN)2123 (Not Given - Provider: Betina Pavon RN - Reason: Patient/family refused - Comment: loose stools) 0830 (Given - Provider: Dai Wong RN)2131 (Given - Provider: Mckinley Zaidi RN) 09 (Given - Provider: Sloane Serrato RN)2100 (Due) sertraline (ZOLOFT) tablet 200 mg 200 mg, Oral, DAILY, First dose on Mon07/31/23 at 1200, Until Discontinued 0800 (Given - Provider: Sloane Serrato RN) 0830 (Given - Provider: Dai Wong RN) 0905 [...] Midline or Central Line = 20 mL/lumen 08 (Not Given - Provider: Sloane Serrato RN - Reason: Loss of IV access)2123 (Not Given - Provider: Betina Pavon RN - Reason: Loss of IV access) 0831 (Not Given - Provider: Dai Wong [...] 08 (Given - Provider: Sloane Serrato RN) 0830 (Given - Provider: Dai Wong RN) 0908 (Given - Provider: Sloane Serrato, PENNY) thiamine tablet 100 mg 100 mg, Oral, DAILY, First dose on Mon07/28/23 at 1200, Until Discontinued 08 (Given - Provider: Sloane Serrato RN) 0831 (Given - Provider: Dai Wong RN) 0905 (Given - Provider: Sloane Serrato RN) PRN [...] IntraVENous, EVERY 6 HOURS PRN, Starting on Mon07/27/23 at 2210, Until Discontinued, Nausea, Vomiting, Administer if oral route cannot be used. ondansetron (ZOFRAN-ODT) disintegrating tablet 4 mg(Linked Group 1) 4 mg, Oral, EVERY 8 HOURS PRN, Starting on Mon07/27/23 at 2210, Until Discontinued, Nausea, Vomiting oxyCODONE (ROXICODONE) immediate release tablet 5 mg(Linked Group 2) 5 mg, Oral, EVERY 4 HOURS PRN, Starting on Mon07/27/23 at 2210, Until Discontinued, Pain Moderate (4-6) 2122 (Given - Provider: Betina Pavon RN) 2205 (Given - Provider: Mckinley Zaidi RN) oxyCODONE HCl (OXY-IR) immediate release tablet 10 mg(Linked Group 2) 10 mg, Oral, EVERY 4 HOURS PRN, Starting on Mon07/27/23 at 2210, Until Discontinued, Pain Severe (7-10) 2122 (See Alternative - Provider: Betina Pavon RN) 2205 (See Alternative - Provider: Mckinley Zaidi RN) polyethylene glycol (GLYCOLAX) packet 17 g 17 g, Oral, DAILY PRN, Starting on Mon07/27/23 at 2210, Until Discontinued, Constipation, First line therapy for constipation sodium chloride flush 0.9 % injection 5-40 mL 5-40 mL, IntraVENous, PRN, Starting on Mon07/27/23 at 2210, Until Discontinued, Line Care, After [...] Intraprocedure Given 09/20/2023 11:11 AM EST 1 [place] fentaNYL 50 mcg/mL injection (SUBLIMAZE) INTRAVENOUS, X [...] BE BASED ON THE PRIMARY CLINICAL RECORDS. [facility] [employer]. provides no warranty or guarantee of the accuracy or completeness of information in this document.
[2025-01-04 09:17] LABS: Lactic Acid 1.9 mmol/L (0.0-2.0)
[2025-01-04 09:27] LABS: AST(SGOT) 50 U/L (<=37); Alanine Aminotransfer ALT/SGPT 23 U/L (<=46); Albumin, Serum 3.3 g/dL (3.5-5.0); Alkaline Phosphatase 182 U/L (40-129); Bilirubin, Direct 1.18 mg/dL (0.00-0.30); Globulin 3.2 g/dL (2.2-4.2); Lipase 48 U/L (13-75); Protein, Total 6.5 g/dL (5.9-8.4); Total Bilirubin 2.44 mg/dL (0.00-1.30)
[2025-01-04 09:55] LABS: Ammonia 83.7 umol/L (16-60)
--- NOTE | 2025-01-04 10:03 | EX.ED.DYSGE1 ---
HPI History of Present Illness Chief Complaint: Abn Labs Detail of Chief Complaint: Altered mental status, history of hepatic encephalopathy Informant: patient, EMS and SNF Onset/Context/Timing Onset: Yesterday Context: Gradual Onset Timing: Continuous Quality: Not as alert Location: Presents from nursing facility Current Severity: Mild Maximum Severity: Mild Worsened by: Reported elevated ammonia level Relieved by: Nothing Associated Symptoms Associated Symptoms: None Narrative Narrative: Patient is a 49-year-old male. He has history of alcoholic liver disease with cirrhosis, hepatic encephalopathy, peptic ulcer disease, who presents by ambulance because of decreased level of consciousness. He answers questions slowly. He denies change in color of his urine. He denies decrease or increased urine output. He denies change in bowels and specifically size, consistency or color of his stool. He denies nausea, vomiting or diarrhea. He denies ill contacts. He denies fever, chills or night sweats. He denies headache. Denies double vision blurred vision loss of vision. No drainage there is a decreased hearing. He denies trouble with speech. He denies chest pain, tightness or heaviness. He denies shortness of breath or dyspnea on exertion. He denies abdominal pain or bloating. Review of his med list indicates he is not presently on lactulose. Prior similar symptoms: Yes Recent Illness/Hospitalization: No PFSH [facility] Medical History Former tobacco use History of alcohol abuse Alcoholic cirrhosis Anxiety and depression Hepatic encephalopathy Suicide attempt Trauma Sleep apnea Gastric reflux Former smoker History of panic attacks Gout Seasonal allergies Cirrhosis Diabetes mellitus type 2 in nonobese HTN (hypertension) Hx of gout Alcoholic hepatitis Carrier of hemochromatosis HFE gene mutation Home Medications ?Medication ?Instructions ?Recorded ?Last Taken ?Type folic acid 1 mg tablet 1 mg PO DAILY #90 tabs 05/02/22 Unknown Rx furosemide 40 mg tablet 40 mg PO DAILY WATER PILL 02/07/23 02/06/23 History rifaximin 550 mg tablet (Xifaxan) 550 mg PO BID DEPRESSION 02/07/23 02/06/23 History acetaminophen 325 mg tablet 650 mg PO Q6H PRN fever or pain 10/24/24 Unknown History aripiprazole 15 mg tablet 7.5 mg PO DAILY 10/24/24 Unknown History melatonin 3 mg tablet 3 mg PO QHS 10/24/24 Unknown History menthol 4 % topical gel (Biofreeze 1 applic topical TID PRN pain 10/24/24 Unknown History (menthol)) sennosides 8.6 mg-docusate sodium 1 tab PO QDAY 10/24/24 Unknown History 50 mg tablet (Senexon-S) sodium chloride 0.65 % nasal spray 2 spray intranasal Q6H PRN PRN 10/24/24 Unknown History aerosol (Deep Sea Nasal) nasal congestion thiamine HCl (vitamin B1) 100 mg 100 mg PO QDAY VITAMIN 10/24/24 Unknown History tablet (Vitamin B-1) quetiapine 50 mg tablet 75 mg PO QHS 10/28/24 Unknown History sertraline 100 mg tablet 100 mg PO QHS DEPRES 10/28/24 Unknown History lactulose 20 gram/30 mL oral 20 g (30 mL) PO TID #0 mL 11/09/24 Unknown Rx solution clotrimazole 1 % topical cream 1 applic topical Q12H 12/20/24 Unknown History lactulose 10 gram/15 mL oral 15 ml PO DAILY PRN constipation 12/20/24 Unknown History solution spironolactone 25 mg tablet 25 mg PO DAILY alcohol cirrhosis 12/20/24 Unknown History of liver dextromethorphan-guaifenesin 10 10 ml PO Q8H PRN cough 01/04/25 Unknown History mg-100 mg/5 mL oral liquid (Ashley-Tussin DM) ibuprofen 600 mg tablet 600 mg PO TID 01/04/25 Unknown History lactulose 10 gram/15 mL oral 15 ml PO BID #473 mL 01/04/25 Unknown Rx solution (Generlac) magnesium hydroxide 400 mg/5 mL 30 ml PO DAILY PRN constipation 01/04/25 Unknown History oral suspension (Dulcolax (magnesium hydroxide)) Allergy/AdvReac Type Severity Reaction Status Date / Time pioglitazone Allergy Mild liver Verified 01/04/25 08:14 damange Family History Other CVA (cerebral vascular accident) Cancer Cirrhosis Heart disease Hypertension Thyroid disorder Surgical History History of esophagogastroduodenoscopy (EGD) History of surgery Social History housing: homeless 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 Smoking Status: Current every day smoker tobacco type: cigarettes and pipe alcohol intake: former substance use type: does not use what type of physical activity do you participate in: other frequency: 1-2 times per week ROS ROS ED Constitutional Constitutional ED: Denies chills, fever(s), subjective, sweats or weight loss Eyes Eyes: Denies blurry vision, change in vision or diplopia ENT ENT ED: Denies ear pain, rhinorrhea or sore throat Cardiovascular Cardiovascular: Denies chest pain or palpitations Respiratory/Chest Respiratory/Chest: Denies cough, dyspnea or dyspnea on exertion Gastrointestinal Gastrointestinal: Denies abdominal pain, constipation, diarrhea, melena, nausea or vomiting Genitourinary Genitourinary ED: Denies dysuria, hematuria or urinary frequency Musculoskeletal Musculoskeletal: Denies arthralgias or myalgias Integumentary Denies rash Neurologic Neurologic: Denies headache(s), paresthesias or weakness Endocrine Endocrinology: Denies cold intolerance or heat intolerance Hematologic/Lymphatic Hematologic/Lymphatic: Reports systems reviewed and no addt'l complaints, except as documented EXAM Physical Exam Const Vital Signs: 01/04/25 08:14 01/04/25 08:37 01/04/25 10:13 Temperature 97.8 F Temperature Source Oral Pulse Rate 70 71 Respiratory Rate 19 H 16 Respiratory Effort Normal Respiratory Pattern Normal Blood Pressure 126/79 H 125/72 H Blood Pressure Mean 94 89 Pulse Ox 96 97 Oxygen Delivery Method Room Air Room Air Positive well nourished and well developed Constitutional Narrative: BMI is 31.4. General Appearance ED: well developed and NAD; Negative for cyanotic, diaphoretic or pallor HEENT Reports moist mucous membranes HEENT Narrative: Head is atraumatic and normocephalic. Ears normal. TMs normal. Nares patent. Posterior pharynx is normal. Eyes PERRL and EOMs intact bilaterally Eyes Narrative: Sclera may be slightly discolored/yellow. General Eye ED: Negative for pale conjunctiva or scleral icterus Neck no lymphadenopathy, supple and no JVD Chest Wall inspection of chest normal and palpation of chest normal Resp normal respiratory effort and clear to auscultation bilaterally Cardio regular rate, regular rhythm, S1 normal heart sound, S2 normal heart sound and no murmurs GI normal to inspection, nondistended, normoactive bowel sounds, non-tender, non-distended and no masses; Negative for hepatosplenomegaly Back/Spine no CVA tenderness Extremity normal to inspection General Extremety ED: Negative for tenderness Neuro oriented x3, CN's II-XII intact bilaterally and no sensory deficits noted Neuro Narrative: There is no dysmetria. There is no clonus or Babinski sign noted. Sensorium / Orientation: Negative for alert Motor Exam: strength 5/5 throughout Skin no rashes or lesions noted, no wounds and skin turgor normal General Skin Exam: Negative for jaundice or pallor MDM MDM MDM Narrative Medical decision making narrative: Differential diagnosis would include hepatic encephalopathy, infection, electrolyte abnormality, hypoglycemia or hyperglycemia since he is diabetic. Prior records were reviewed. Prior labs were also reviewed. Patient was seen earlier this month by Dr. Butt for suicidal thoughts. He presently has no suicidal thoughts. He was seen by Dr. Gabriel for elevated ammonia/altered mental status November 09, 2024. His ammonia at that time was 136. He had a CT of the abdomen as well. He was discharged back to the nursing facility at that time. History & Record Review Additional record(s) reviewed:: Prior ED visit and Prior labs Lab Data Attestation: I reviewed the patient's lab results. Lab results narrative: CBC reveals macrocytic indices. Hepatic panel reveals elevated total bili of 2.44 which is his baseline. Direct is 1.18. AST and ALT are 50 and 23 respectively. Alkaline phosphatase slightly elevated 182. Ammonia is elevated 83.7. Lipase was normal. Labs: Laboratory Results - last 24 hr 01/04/25 01/04/25 08:30 09:00 WBC 3.8 L RBC 3.49 L Hgb 13.3 Hct 36.6 L MCV 104.9 H MCH 38.1 H MCHC 36.3 H RDW Std Deviation 55.8 H RDW Coeff of Kaela 14.6 Plt Count 80 L MPV 10.0 Immature Gran % (Auto) 0.000 Neut % (Auto) 61.6 Lymph % (Auto) 27.2 Isabela % (Auto) 8.3 Eos % (Auto) 2.4 Baso % (Auto) 0.5 Absolute Neuts (auto) 2.3 Absolute Lymphs (auto) 1.02 Nucleated RBC % 0 Lactic Acid 1.9 Total Bilirubin Cancelled 2.44 H Direct Bilirubin Cancelled 1.18 H AST Cancelled 50 H ALT Cancelled 23 Alkaline Phosphatase Cancelled 182 H Ammonia 83.7 H Total Protein Cancelled 6.5 Albumin Cancelled 3.3 L Globulin Cancelled 3.2 Lipase Cancelled 48 Treatment and Re-Evaluation :: Patient received lactulose in the emergency department. Unless his electrolytes are markedly abnormal he will be discharged back to nursing facility on lactulose. Comments:: This patient only has mild altered sensorium and is oriented will discharge back to nursing facility with prescription for lactulose. Discharge Plan Triage Chief Complaint: Abn Labs ED Provider: Talib Savage Dx/Rx/DC Orders Clinical Impression: Encephalopathy, hepatic, Diabetes mellitus type 2 in nonobese, Debility, Anemia, Elevated blood-pressure reading without diagnosis of hypertension, Alcoholic liver disease Instructions: Hepatic Encephalopathy Prescriptions: New lactulose [Generlac] 10 gram/15 mL solution 15 ml PO BID Qty: 473 0RF No Action acetaminophen 325 mg tablet 650 mg PO Q6H PRN (Reason: fever or pain) sennosides-docusate sodium [Senexon-S] 8.6-50 mg tablet 1 tab PO QDAY melatonin 3 mg tablet 3 mg PO QHS aripiprazole 15 mg tablet 7.5 mg PO DAILY Deep Sea Nasal 0.65 % aerosol,spray 2 spray intranasal Q6H PRN PRN (Reason: nasal congestion) Rx Instructions: while awake Biofreeze (menthol) 4 % gel 1 applic topical TID PRN (Reason: pain) thiamine HCl (vitamin B1) [Vitamin B-1] 100 mg tablet 100 mg PO QDAY furosemide 40 mg tablet 40 mg PO DAILY Rx Instructions: take 1 tablet by mouth once daily Xifaxan 550 mg tablet 550 mg PO BID Rx Instructions: take 1 tablet by mouth twice a day clotrimazole 1 % cream 1 applic topical Q12H lactulose 10 gram/15 mL solution 15 ml PO DAILY PRN (Reason: constipation) spironolactone 25 mg tablet 25 mg PO DAILY Rx Instructions: Hold if serum potassium more than 5.0. dextromethorphan-guaifenesin [Ashley-Tussin DM] 10-100 mg/5 mL liquid 10 ml PO Q8H PRN (Reason: cough) ibuprofen 600 mg tablet 600 mg PO TID magnesium hydroxide [Dulcolax (magnesium hydroxide)] 400 mg/5 mL suspension 30 ml PO DAILY PRN (Reason: constipation) lactulose 20 gram/30 mL solution 20 g PO TID Qty: 0 0RF folic acid 1 mg tablet 1 mg PO DAILY Qty: 90 3RF sertraline 100 mg tablet 100 mg PO QHS Patient Comments: TAKE 1 TABLET BY MOUTH EVERY DAY quetiapine 50 mg tablet 75 mg PO QHS Primary Care Provider: Lidia Otero Referrals: Lidia Otero MD [Primary Care Provider] - Activity Restrictions/Additional Instructions: Recheck ammonia level January 06 Print Language: Yoruba Disposition Disposition: Home, Self Care
[2025-01-04 10:13] VITALS: BP 125/72; PULSE 71; RESP 16; O2SAT 97
[2025-01-04] MEDS: Lactulose 20 GM/30 ML UDC PO (10:23)
[2025-01-04 11:34] VITALS: BP 129/81; PULSE 72; RESP 16; TEMP 36.6; O2SAT 97
--- NOTE | 2025-01-04 11:37 | ED.RN ---
called report to kacey at [facility]. verified pt was already taking lactulose tid. dr kimbrough consulted d/t inial rx was for bid. to get new rx for 4xday. kacey updated. outreach professional further questions. pt waiting on squad.
== END 2025-01-04 12:19 | disposition home or self-care (01) ==
PROVIDERS: Emergency Provider Emergency Medicine; PCP Hospitalist; Visit Provider Emergency Medicine
DX: K76.82 Hepatic encephalopathy (principal); K70.30 Alcoholic cirrhosis of liver without ascites; E11.9 Type 2 diabetes mellitus without complications; R53.81 Other malaise; R03.0 Elevated blood-pressure reading, without diagnosis of hypertension; D64.9 Anemia, unspecified; R41.82 Altered mental status, unspecified; F17.210 Nicotine dependence, cigarettes, uncomplicated; K21.9 Gastro-esophageal reflux disease without esophagitis; I10 Essential (primary) hypertension; Z79.899 Other long term (current) drug therapy; R74.8 Abnormal levels of other serum enzymes; R79.89 Other specified abnormal findings of blood chemistry
CPT/HCPCS: 80076; 82140; 83605; 83690; 85025; 99284; A4216

== ENCOUNTER 2025-05-02 14:27 | Emergency (ER) | payer MEDICAID, SELFPAY ==
[2025-05-02 14:27] VITALS: BP 129/77; PULSE 72; RESP 16; TEMP 36.9; O2SAT 97; BMI 29.9
--- NOTE | 2025-05-02 14:51 | ED.RN ---
pt with hx hepatic enceph and sees friend for. woke up this am feeling like ammonia may be going up pt usually independent at [facility] but staff and pt reported staggering gait. pt a&ox4. said last time came too late and was out of it
--- NOTE | 2025-05-02 15:27 | EX.ED.DYSGE1 ---
HPI History of Present Illness Chief Complaint: Alt LOC Informant: patient Onset/Context/Timing Onset: Today and Hours Context: Gradual Onset Timing: Continuous Maximum Severity: Mild Narrative Narrative: 50-year-old male history of alcoholic cirrhosis with diabetes hypertension. Takes lactulose. He is concerned because he said this morning just felt foggy. He is concerned his ammonia level is elevated. He denies headache. He denies fever or chills. He denies nausea, vomiting or diarrhea. No dysuria. Prior similar symptoms: Yes Recent Illness/Hospitalization: No [facility] Medical History Former tobacco use History of alcohol abuse Alcoholic cirrhosis Anxiety and depression Hepatic encephalopathy Suicide attempt Trauma Sleep apnea Gastric reflux Former smoker History of panic attacks Gout Seasonal allergies Cirrhosis Diabetes mellitus type 2 in nonobese HTN (hypertension) Hx of gout Alcoholic hepatitis Carrier of hemochromatosis HFE gene mutation Home Medications ?Medication ?Instructions ?Recorded ?Last Taken ?Type folic acid 1 mg tablet 1 mg PO DAILY #90 tabs 05/02/22 Unknown Rx furosemide 40 mg tablet 40 mg PO DAILY WATER PILL 02/07/23 02/06/23 History rifaximin 550 mg tablet (Xifaxan) 550 mg PO BID DEPRESSION 02/07/23 02/06/23 History acetaminophen 325 mg tablet 650 mg PO Q6H PRN fever or pain 10/24/24 Unknown History aripiprazole 15 mg tablet 7.5 mg PO DAILY 10/24/24 Unknown History melatonin 3 mg tablet 3 mg PO QHS 10/24/24 Unknown History menthol 4 % topical gel (Biofreeze 1 applic topical TID PRN pain 10/24/24 Unknown History (menthol)) sennosides 8.6 mg-docusate sodium 1 tab PO QDAY 10/24/24 Unknown History 50 mg tablet (Senexon-S) sodium chloride 0.65 % nasal spray 2 spray intranasal Q6H PRN PRN 10/24/24 Unknown History aerosol (Deep Sea Nasal) nasal congestion thiamine HCl (vitamin B1) 100 mg 100 mg PO QDAY VITAMIN 10/24/24 Unknown History tablet (Vitamin B-1) quetiapine 50 mg tablet 75 mg PO QHS 10/28/24 Unknown History sertraline 100 mg tablet 100 mg PO QHS DEPRES 10/28/24 Unknown History lactulose 20 gram/30 mL oral 20 g (30 mL) PO TID #0 mL 11/09/24 Unknown Rx solution clotrimazole 1 % topical cream 1 applic topical Q12H 12/20/24 Unknown History lactulose 10 gram/15 mL oral 15 ml PO DAILY PRN constipation 12/20/24 Unknown History solution spironolactone 25 mg tablet 25 mg PO DAILY alcohol cirrhosis 12/20/24 Unknown History of liver dextromethorphan-guaifenesin 10 10 ml PO Q8H PRN cough 01/04/25 Unknown History mg-100 mg/5 mL oral liquid (Ashley-Tussin DM) ibuprofen 600 mg tablet 600 mg PO TID 01/04/25 Unknown History lactulose 10 gram/15 mL oral 15 ml PO Q6H #946 mL 01/04/25 Unknown Rx solution (Generlac) magnesium hydroxide 400 mg/5 mL 30 ml PO DAILY PRN constipation 01/04/25 Unknown History oral suspension (Dulcolax (magnesium hydroxide)) Allergy/AdvReac Type Severity Reaction Status Date / Time pioglitazone Allergy Mild liver Verified 01/04/25 08:14 damange Family History Other CVA (cerebral vascular accident) Cancer Cirrhosis Heart disease Hypertension Thyroid disorder Surgical History History of esophagogastroduodenoscopy (EGD) History of surgery Social History housing: homeless 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 Constitutional Constitutional ED: Denies chills or fever(s) Eyes Eyes: Denies blurry vision ENT ENT ED: Denies ear pain Cardiovascular Cardiovascular: Denies chest pain or palpitations Respiratory/Chest Respiratory/Chest: Denies cough, dyspnea or dyspnea on exertion Gastrointestinal Gastrointestinal: Denies abdominal pain or constipation Genitourinary Genitourinary ED: Denies dysuria or hematuria Musculoskeletal Musculoskeletal: Denies arthralgias or back pain Integumentary Denies abscess or Abrasions Neurologic Neurologic: Denies headache(s) Psychiatric Psychiatric: Denies anxiety or depression Endocrine Endocrinology: Denies cold intolerance Hematologic/Lymphatic Hematologic/Lymphatic: Reports none Allergic/Immunologic Allergic/Immunologic ED: Denies mouth swelling, tongue swelling or urticaria EXAM Physical Exam Narrative Exam Narrative: 50-year-old male sitting upright in bed vital signs stable afebrile. H EENT exam pupils round react light. Moist mutes membranes. Neck nontender no JVD. No lymphadenopathy. Back nontender. Lungs clear to auscultation. Heart regular rhythm no murmur rate about 70. Chest wall ribs nontender. Abdomen soft nontender. Moving all 4 extremities. 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 Normal dorsi plantarflexion. Nontender no edema. Neurologically he is awake alert. He seems a little delayed but he is answering questions following commands. He has no focal motor deficits. He knows where he is at. He knows the month he knows the year and the president. Const Vital Signs: 05/02/25 14:27 05/02/25 17:58 05/02/25 18:57 Temperature 98.5 F 97.9 F Temperature Source Oral Temporal Pulse Rate 72 66 68 Respiratory Rate 16 16 17 Blood Pressure 129/77 H 121/69 H 127/74 H Blood Pressure Mean 94 86 91 Pulse Ox 97 96 96 Oxygen Delivery Method Room Air Room Air Room Air MDM MDM MDM Narrative Medical decision making narrative: 50-year-old male feels foggy today. Screening labs and check an ammonia level. No signs of infection or complaints of infection. Repeat exam patient is doing well at 7 PM. He is awake alert. He is answering questions and following commands. We discussed his ammonia level being 83. He is comfortable being discharged home continue his lactulose. He has been much higher in the past. He will be ambulated if he walks well be discharged. History & Record Review Discussion w/independent historian: Patient Additional record(s) reviewed:: Prior inpatient record, Prior outpatient record, Prior ED visit and Prior labs Lab Data Attestation: I reviewed the patient's lab results. Lab results narrative: CBC shows a white count of 5. H&H of 14 and 38. Platelets 88. Electrolytes shows sodium 140 gap 10. BUN and creatinine 8 and 0.9. Ammonia level 83. Glucose 119. Liver enzymes show total bilirubin 2.4. AST of 54. Alk phos 166. Labs: Laboratory Results - last 24 hr 05/02/25 15:51 WBC 5.1 RBC 3.63 L Hgb 14.2 Hct 38.4 L MCV 105.8 H MCH 39.1 H MCHC 37.0 H RDW Std Deviation 55.7 H RDW Coeff of Kaela 14.2 Plt Count 88 L MPV 9.4 Immature Gran % (Auto) 0.200 Neut % (Auto) 60.5 Lymph % (Auto) 27.6 [place] % (Auto) 8.3 Eos % (Auto) 2.8 Baso % (Auto) 0.6 Absolute Neuts (auto) 3.1 Absolute Lymphs (auto) 1.40 Nucleated RBC % 0 Sodium 140 Potassium 3.5 Chloride 105 Carbon Dioxide 26.1 Anion Gap 10 BUN 8 Creatinine 0.90 Estim Creat Clear Calc 108.92 Est GFR (MDRD) Non-Af 103 BUN/Creatinine Ratio 9.3 L Glucose 119 H Calcium 8.6 Total Bilirubin 2.43 H AST 54 H ALT 26 Alkaline Phosphatase 166 H Ammonia 83.5 H Total Protein 6.7 Albumin 3.5 Globulin 3.2 Albumin/Globulin Ratio 1.1 Discharge Plan Triage Chief Complaint: Alt LOC ED Provider: Carlos Lawrence Dx/Rx/DC Orders Clinical Impression: Hyperammonemia, History of cirrhosis, History of diabetes mellitus Prescriptions: No Action acetaminophen 325 mg tablet 650 mg PO Q6H PRN (Reason: fever or pain) sennosides-docusate sodium [Senexon-S] 8.6-50 mg tablet 1 tab PO QDAY melatonin 3 mg tablet 3 mg PO QHS aripiprazole 15 mg tablet 7.5 mg PO DAILY Deep Sea Nasal 0.65 % aerosol,spray 2 spray intranasal Q6H PRN PRN (Reason: nasal congestion) Rx Instructions: while awake Biofreeze (menthol) 4 % gel 1 applic topical TID PRN (Reason: pain) thiamine HCl (vitamin B1) [Vitamin B-1] 100 mg tablet 100 mg PO QDAY furosemide 40 mg tablet 40 mg PO DAILY Rx Instructions: take 1 tablet by mouth once daily Xifaxan 550 mg tablet 550 mg PO BID Rx Instructions: take 1 tablet by mouth twice a day clotrimazole 1 % cream 1 applic topical Q12H lactulose 10 gram/15 mL solution 15 ml PO DAILY PRN (Reason: constipation) spironolactone 25 mg tablet 25 mg PO DAILY Rx Instructions: Hold if serum potassium more than 5.0. dextromethorphan-guaifenesin [Ashley-Tussin DM] 10-100 mg/5 mL liquid 10 ml PO Q8H PRN (Reason: cough) ibuprofen 600 mg tablet 600 mg PO TID magnesium hydroxide [Dulcolax (magnesium hydroxide)] 400 mg/5 mL suspension 30 ml PO DAILY PRN (Reason: constipation) lactulose [Generlac] 10 gram/15 mL solution 15 ml PO Q6H Qty: 946 0RF lactulose 20 gram/30 mL solution 20 g PO TID Qty: 0 0RF folic acid 1 mg tablet 1 mg PO DAILY Qty: 90 3RF sertraline 100 mg tablet 100 mg PO QHS Patient Comments: TAKE 1 TABLET BY MOUTH EVERY DAY quetiapine 50 mg tablet 75 mg PO QHS Primary Care Provider: Lidia Otero Referrals: Lidia Otero MD [Primary Care Provider, Family Practice] - 3-5 Days Activity Restrictions/Additional Instructions: Your ammonia levels and elevated but it is only 83. Plenty of fluids. Continue your lactulose. Follow-up with your primary care provider to ensure your ammonia level is getting better. Have it rechecked. If you are feeling worse return to the emergency department. Print Language: Estonian Disposition Disposition: Home, Self Care
[2025-05-02 16:04] LABS: Hematocrit 38.4 % (40-54); Hemoglobin 14.2 g/dL (13.0-16.5); Immature Granulocytes Count 0.010 X10^3/uL (0.0-0.0); Mean Corp Hgb Conc 37.0 g/dL (32-36); Mean Corpuscular Volume 105.8 fL (80-94); Mean Platelet Vol. 9.4 fl (6.2-12.0); NRBC Flagged by Analyzer 0 % (0-5); POSITIVE COUNT YES; Platelet Count 88 K/mm3 (150-450); RBC Distribution Width CV 14.2 % (11.6-14.6); RBC Distribution Width SD 55.7 fl (35.1-43.9); Red Blood Count 3.63 M/mm3 (4.6-6.2); White Blood Count 5.1 K/mm3 (4.4-11.0)
[2025-05-02 16:21] LABS: AST(SGOT) 54 U/L (<=37); Alanine Aminotransfer ALT/SGPT 26 U/L (<=46); Albumin, Serum 3.5 g/dL (3.5-5.0); Alkaline Phosphatase 166 U/L (40-129); Anion Gap 10 (5-15); BUN 8 mg/dL (4-19); BUN/Creat Ratio 9.3 RATIO (10-20); Calcium,Total 8.6 mg/dL (7.6-11.0); Carbon Dioxide 26.1 mmol/L (21.0-32.0); Chloride 105 mmol/L (98-108); Estimated Creatinine Clearance 108.92 ml/min (50-250); Globulin 3.2 g/dL (2.2-4.2); Glucose 119 mg/dL (70-99); Potassium 3.5 mmol/L (3.3-5.1)
[2025-05-02 17:19] LABS: Ammonia 83.5 umol/L (16-60)
[2025-05-02 17:58] VITALS: BP 121/69; PULSE 66; RESP 16; O2SAT 96
[2025-05-02 18:57] VITALS: BP 127/74; PULSE 68; RESP 17; TEMP 36.6; O2SAT 96
[2025-05-02 19:13] VITALS: BP 127/74; PULSE 68; RESP 17; TEMP 36.6; O2SAT 96
[2025-05-02 21:30] VITALS: BP 128/78; PULSE 65; RESP 18; O2SAT 96
== END 2025-05-02 22:58 | disposition home or self-care (01) ==
PROVIDERS: Emergency Provider Emergency Medicine; PCP Hospitalist; Visit Provider Emergency Medicine
DX: E72.20 Disorder of urea cycle metabolism, unspecified (principal); K70.30 Alcoholic cirrhosis of liver without ascites; E11.9 Type 2 diabetes mellitus without complications; Z59.00 Homelessness unspecified; I10 Essential (primary) hypertension; F17.210 Nicotine dependence, cigarettes, uncomplicated; K21.9 Gastro-esophageal reflux disease without esophagitis
CPT/HCPCS: 80053; 82140; 85025; 99285; A4216

== ENCOUNTER 2025-06-21 16:52 | Emergency (ER) | payer MEDICAID, SELFPAY ==
[2025-06-21 16:53] VITALS: BP 139/78; PULSE 77; RESP 20; TEMP 36.6; O2SAT 98; BMI 31.4
--- NOTE | 2025-06-21 17:03 | RAD_ITS ---
PROCEDURE: RIBS UNI MIN 3V W/PA CHEST 06/21/2025 REASON FOR EXAM: FALL TECHNIQUE: Procedure Code: RADRIB Modality: DX Procedure: RIBS UNI MIN 3V W/PA CHEST COMPARISON: 11/09/2024. FINDINGS: The heart is normal in size. The lungs are clear. Right posterior nondisplaced 6th rib fracture. RAD/Ribs Uni Min 3V w/PA Chest IMPRESSION: Right posterior nondisplaced 6th rib fracture. Reading Location: [id number]
--- NOTE | 2025-06-21 17:03 | CT_ITS ---
PROCEDURE: BRAIN/HEAD WITHOUT CONTRAST; SPINE CERVICAL WITHOUT CONTRAS 06/21/2025 REASON FOR EXAM: TRAUMA TECHNIQUE: Procedure Code: CTBR; CTSPC Modality: CT Procedure: BRAIN/HEAD WITHOUT CONTRAST; SPINE CERVICAL WITHOUT CONTRAS Coronal and Sagittal reconstruction series were provided. One or more dose reduction techniques were used (e.g., Automated exposure control, adjustment of the mA and/or kV according to patient size, use of iterative reconstruction technique. COMPARISON: CT head 11/09/2024 FINDINGS: HEAD: There is no extra-axial or intra-axial intracranial hemorrhage. No mass effect or midline shift is seen. Generalized intracranial volume loss and findings compatible with chronic microvascular white matter ischemia. There is normal eagle-white matter differentiation. The posterior fossa is grossly unremarkable. The skull is unremarkable. Visualized paranasal sinuses are clear. The mastoid air cells show normal translucency. C-SPINE: The cervical alignment is intact. No acute cervical spine fracture is identified. The vertebral body heights are intact. No suspicious osseous lesions are identified. The craniocervical junction appears intact. There is no prevertebral soft tissue swelling. Mild degenerate changes throughout the cervical spine. No severe neural foraminal or spinal canal stenosis. The visualized lung apices are unremarkable. CT/Brain/Head without Contrast IMPRESSION: 1. No intracranial hemorrhage. No mass effect or midline shift. 2. Mild involutional and ischemic gliotic white matter changes. 3. No evidence of acute cervical spine fracture or malalignment. 4. Mild degenerative changes throughout the cervical spine. Reading Location: [facility]
--- NOTE | 2025-06-21 17:03 | CT_ITS ---
PROCEDURE: BRAIN/HEAD WITHOUT CONTRAST; SPINE CERVICAL WITHOUT CONTRAS 06/21/2025 REASON FOR EXAM: TRAUMA TECHNIQUE: Procedure Code: CTBR; CTSPC Modality: CT Procedure: BRAIN/HEAD WITHOUT CONTRAST; SPINE CERVICAL WITHOUT CONTRAS Coronal and Sagittal reconstruction series were provided. One or more dose reduction techniques were used (e.g., Automated exposure control, adjustment of the mA and/or kV according to patient size, use of iterative reconstruction technique. COMPARISON: CT head 11/09/2024 FINDINGS: HEAD: There is no extra-axial or intra-axial intracranial hemorrhage. No mass effect or midline shift is seen. Generalized intracranial volume loss and findings compatible with chronic microvascular white matter ischemia. There is normal eagle-white matter differentiation. The posterior fossa is grossly unremarkable. The skull is unremarkable. Visualized paranasal sinuses are clear. The mastoid air cells show normal translucency. C-SPINE: The cervical alignment is intact. No acute cervical spine fracture is identified. The vertebral body heights are intact. No suspicious osseous lesions are identified. The craniocervical junction appears intact. There is no prevertebral soft tissue swelling. Mild degenerate changes throughout the cervical spine. No severe neural foraminal or spinal canal stenosis. The visualized lung apices are unremarkable. CT/Spine Cervical without Contras IMPRESSION: 1. No intracranial hemorrhage. No mass effect or midline shift. 2. Mild involutional and ischemic gliotic white matter changes. 3. No evidence of acute cervical spine fracture or malalignment. 4. Mild degenerative changes throughout the cervical spine. Reading [facility]
--- NOTE | 2025-06-21 17:09 | ED.VIS.FALL ---
HPI HPI - Fall History of Present Illness Chief Complaint: Fall Narrative Narrative: Chief complaint and HPI: 50-year-old male with past medical history of alcoholic cirrhosis, DM2, HTN who resides at a assisted living facility presents for evaluation of fall. Patient states he went outside when he lost his balance and fell. He hit the right side of his head on a brick wall. No LOC. Not on blood thinners. Only complaint at this time is some mild right lateral rib pain. He states initially after the fall he had some lightheadedness however this has been present for 4 months intermittently. It is since resolved. He denies any fever, chills, neck pain, chest pain, shortness of breath, abdominal pain, nausea, vomiting, numbness or tingling, extremity/back pain. Review of systems: See HPI Medications: As listed on the chart Allergies: As listed on the chart PFSH: Per chart Vital signs: As listed on the chart. Reviewed. Physical exam: Gen: A&O x4, NAD Head: Normocephalic, atraumatic Eyes: No sclera icterus, conjunctiva clear, PERRL, EOMI ENT: TMs clear BL, moist mucous membranes, face atraumatic without tenderness Neck: Trachea midline, no midline spinal tenderness, no bony step-offs, mild tenderness to palpation of the cervical paraspinal musculature on the right CV: RRR, no murmurs, mild tenderness to palpation of the lateral right ribs around 6, 7, 8 without obvious external signs of trauma Resp: Lungs CTA BL, no w/r/c GI: Abd soft, non-distended, non-tender, no r/r/g Musc: Full ROM, no deformity, no spinal TTP, no gisell step-offs Skin: Warm, dry, intact Neuro: Alert, oriented, grossly intact, sensation intact, GCS 15 Psych: Cooperative, appropriate mood and affect [facility] Medical History Former tobacco use History of alcohol abuse Alcoholic cirrhosis Anxiety and depression Hepatic encephalopathy Suicide attempt Trauma Sleep apnea Gastric reflux Former smoker History of panic attacks Gout Seasonal allergies Cirrhosis Diabetes mellitus type 2 in nonobese HTN (hypertension) Hx of gout Alcoholic hepatitis Carrier of hemochromatosis HFE gene mutation Home Medications ?Medication ?Instructions ?Recorded ?Last Taken ?Type folic acid 1 mg tablet 1 mg PO DAILY #90 tabs 05/02/22 Unknown Rx furosemide 40 mg tablet 40 mg PO DAILY WATER PILL 02/07/23 02/06/23 History rifaximin 550 mg tablet (Xifaxan) 550 mg PO BID DEPRESSION 02/07/23 02/06/23 History acetaminophen 325 mg tablet 650 mg PO Q6H PRN fever or pain 10/24/24 Unknown History aripiprazole 15 mg tablet 7.5 mg PO DAILY 10/24/24 Unknown History melatonin 3 mg tablet 3 mg PO QHS 10/24/24 Unknown History menthol 4 % topical gel (Biofreeze 1 applic topical TID PRN pain 10/24/24 Unknown History (menthol)) sennosides 8.6 mg-docusate sodium 1 tab PO QDAY 10/24/24 Unknown History 50 mg tablet (Senexon-S) sodium chloride 0.65 % nasal spray 2 spray intranasal Q6H PRN PRN 10/24/24 Unknown History aerosol (Deep Sea Nasal) nasal congestion thiamine HCl (vitamin B1) 100 mg 100 mg PO QDAY VITAMIN 10/24/24 Unknown History tablet (Vitamin B-1) quetiapine 50 mg tablet 75 mg PO QHS 10/28/24 Unknown History sertraline 100 mg tablet 100 mg PO QHS DEPRES 10/28/24 Unknown History lactulose 20 gram/30 mL oral 20 g (30 mL) PO TID #0 mL 11/09/24 Unknown Rx solution clotrimazole 1 % topical cream 1 applic topical Q12H 12/20/24 Unknown History lactulose 10 gram/15 mL oral 15 ml PO DAILY PRN constipation 12/20/24 Unknown History solution spironolactone 25 mg tablet 25 mg PO DAILY alcohol cirrhosis 12/20/24 Unknown History of liver dextromethorphan-guaifenesin 10 10 ml PO Q8H PRN cough 01/04/25 Unknown History mg-100 mg/5 mL oral liquid (Ashley-Tussin DM) ibuprofen 600 mg tablet 600 mg PO TID 01/04/25 Unknown History lactulose 10 gram/15 mL oral 15 ml PO Q6H #946 mL 01/04/25 Unknown Rx solution (Generlac) magnesium hydroxide 400 mg/5 mL 30 ml PO DAILY PRN constipation 01/04/25 Unknown History oral suspension (Dulcolax (magnesium hydroxide)) Allergy/AdvReac Type Severity Reaction Status Date / Time pioglitazone Allergy Mild liver Verified 06/21/25 16:57 damange Family History Other CVA (cerebral vascular accident) Cancer Cirrhosis Heart disease Hypertension Thyroid disorder Surgical History History of esophagogastroduodenoscopy (EGD) History of surgery Social History housing: homeless current occupation: [employer] Smoking Status: Current every day smoker tobacco type: cigarettes and pipe alcohol intake: former substance use type: does not use what type of physical activity do you participate in: other frequency: 1-2 times per week EXAM Physical Exam Const Vital Signs: 06/21/25 16:53 06/21/25 16:53 06/21/25 18:02 Temperature 97.9 F Temperature Source Oral Pulse Rate 77 71 Respiratory Rate 20 H 13 Respiratory Effort Normal Respiratory Depth Normal Respiratory Pattern Normal Blood Pressure 139/78 H 116/75 Blood Pressure Mean 98 88 Pulse Ox 98 97 Oxygen Delivery Method Room Air Room Air Room Air MDM MDM MDM Narrative Medical decision making narrative: 50-year-old male with past medical history of alcoholic cirrhosis, DM2, HTN who resides at a assisted living facility presents for evaluation of fall. Patient states he went outside when he lost his balance and fell. He hit the right side of his head on a brick wall. No LOC. Not on blood thinners. Only complaint at this time is some mild right lateral rib pain. Differential diagnosis includes but is not limited to closed head injury, intracranial bleed, neck strain, cervical fracture, rib contusion, rib fracture. Tylenol ordered for pain. CT head, cervical spine ordered. X-ray of the ribs ordered. CT of the head without any traumatic injury. CT of the cervical spine without any traumatic injury. X-ray of the chest without pneumothorax, pneumonia, effusion, cardiomegaly. Radiology in agreement. Per radiology, right posterior nondisplaced sixth rib fracture. On reevaluation, patient's pain is controlled. Will prescribe a incentive spirometer for home. Vitals are stable without hypoxia. Patient was educated on using incentive spirometer to prevent pneumonia. Follow-up with primary care physician. Will prescribe a few narcotics for pain. He confirmed understand the plan. Return precautions explained. Patient able to discharge home. Impression: 1. Mechanical fall 2. Right posterior nondisplaced sixth rib fracture Radiography Diagnostic Testing: Clinical Impression(s) from Imaging Studies Brain CT 06/21/25 17:03 IMPRESSION: 1. No intracranial hemorrhage. No mass effect or midline shift. 2. Mild involutional and ischemic gliotic white matter changes. 3. No evidence of acute cervical spine fracture or malalignment. 4. Mild degenerative changes throughout the cervical spine. Reading Location: [facility] Cervical Spine CT 06/21/25 17:03 IMPRESSION: 1. No intracranial hemorrhage. No mass effect or midline shift. 2. Mild involutional and ischemic gliotic white matter changes. 3. No evidence of acute cervical spine fracture or malalignment. 4. Mild degenerative changes throughout the cervical spine. Reading Location: [facility] Ribs w/Chest X-Ray 06/21/25 17:03 IMPRESSION: Right posterior nondisplaced 6th rib fracture. Reading Location: [address] Discharge Plan Triage Chief Complaint: Fall ED Provider: Daren Pavon Dx/Rx/DC Orders Prescriptions: No Action acetaminophen 325 mg tablet 650 mg PO Q6H PRN (Reason: fever or pain) sennosides-docusate sodium [Senexon-S] 8.6-50 mg tablet 1 tab PO QDAY melatonin 3 mg tablet 3 mg PO QHS aripiprazole 15 mg tablet 7.5 mg PO DAILY Deep Sea Nasal 0.65 % aerosol,spray 2 spray intranasal Q6H PRN PRN (Reason: nasal congestion) Rx Instructions: while awake Biofreeze (menthol) 4 % gel 1 applic topical TID PRN (Reason: pain) thiamine HCl (vitamin B1) [Vitamin B-1] 100 mg tablet 100 mg PO QDAY furosemide 40 mg tablet 40 mg PO DAILY Rx Instructions: take 1 tablet by mouth once daily Xifaxan 550 mg tablet 550 mg PO BID Rx Instructions: take 1 tablet by mouth twice a day clotrimazole 1 % cream 1 applic topical Q12H lactulose 10 gram/15 mL solution 15 ml PO DAILY PRN (Reason: constipation) spironolactone 25 mg tablet 25 mg PO DAILY Rx Instructions: Hold if serum potassium more than 5.0. dextromethorphan-guaifenesin [Ashley-Tussin DM] 10-100 mg/5 mL liquid 10 ml PO Q8H PRN (Reason: cough) ibuprofen 600 mg tablet 600 mg PO TID magnesium hydroxide [Dulcolax (magnesium hydroxide)] 400 mg/5 mL suspension 30 ml PO DAILY PRN (Reason: constipation) lactulose [Generlac] 10 gram/15 mL solution 15 ml PO Q6H Qty: 946 0RF lactulose 20 gram/30 mL solution 20 g PO TID Qty: 0 0RF folic acid 1 mg tablet 1 mg PO DAILY Qty: 90 3RF sertraline 100 mg tablet 100 mg PO QHS Patient Comments: TAKE 1 TABLET BY MOUTH EVERY DAY quetiapine 50 mg tablet 75 mg PO QHS Primary Care Provider: Lidia Otero Referrals: Lidia Otero MD [Primary Care Provider, Family Practice] Print Language: Maltese
--- OUTSIDE RECORDS SUMMARY | 2025-06-21 17:22 | XMS RPT_ITS | CCD ---
Author Organization [facility] Care Team Providers Care Machine Rigger Name Role Phone Deisi 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, 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-C Debra Manuel Attending Provider [phone] Care Physician, No Primary Primary Care Provider Unavailable Care Physician, No Primary Referring Provider Un available Unavailable Primary Care Provider Unavailabl e Dr. Greg Gdodard Attending Provider [phone] Dr. Nate Martinez Attending [...] Dr. Sullivan Other Provider [phone] Deisi 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, 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-C Debra Manuel Attending Provider [phone] Dr. [...] Primary Care Unavailable ELLEN HOOKSODORA (RES) Admitting GLORIA Tariq (RES) Attending ARON Dukes Consulting Unavailable [...] Unavailable No Family, Physician Primary Care Unavailable GALA CIPRIANO D Referring Unavailable No Family, Physician [...] Unavailable Katia Lan MD Primary Care Provider PITER GAINES JR Attending Unavailable RIKY, KEATONSSER Primary Care Unavailable EUGENIE, NIZAR N Referring Unavailable EUGENIE, NIZAR N Attending Unavailable GREG GODDARD Primary Care Unavailable EUGENIE, NIZAR N Attending Unavailable GREG GODDARD Primary Care Unavailable SELF Referring Unavailable OMRAN, YASSER Primary Care Unavailable EUGENIE, NIZAR N Referring Unavailable OMRAN, YASSER Primary Care Unavailable EUGENIE, NIZAR N Referring Unavailable EUGENIE, NIZAR N Attending Unavailable KEATON LANSSER Primary Care Unavailable PHYSICIAN, NOT RECORDED Primary Care Physician U jodee RIZVI MD, LIDIA DELEON Primary Care Physician MIRELA RILEY Attending Unavailable LIDIA RIZVI MD Primary Care Unavail able PHYSICIAN, NOT RECORDED Primary Care Unavaila FREDERICK Kaminski MD Attending Unavail able PHYSICIAN, NOT RECORDED Primary Care Unavaila ble SUN HORNE, DR ALAN Attending Unavailab PITER Stark MD Attending Unavailable LIDIA RIZVI MD Primary Care Unavail able DR ISIDRO BURT MD Attending Unavailabl e PHYSICIAN, NOT RECORDED Primary Care Unavaila ble MIRELA RILEY Attending Unavailable LIDIA RIZVI MD Primary Care Unavail able LIDIA RIZVI MD Primary Care Unavail able FREDERICK MANUEL MD Attending Unavail able WAQAS HOLGUIN MD Attending Unavailable PHYSICIAN, NOT RECORDED Primary Care Unavaila Jami Whalen Attending Unavailable Lidia Rizvi Primary Care Unavailabl e Hernesto, Dewayne Referring Unavailable Morehart, Lidia Jennifer Primary Care Unavailabl e Hernesto, Dewayne Attending Unavailable AndMin ibarra Attending Unavailable Morehart, Lidia Jennifer Primary Care Unavailabl e Hernesto, Dewayne Referring Unavailable Omran, Katia Primary Care Unavailable Hernesto, Dewayne Attending Unavailable Morehart, Lidia Jennifer Primary Care Unavailabl e Lawrence, Carlos Attending Unavailable Hernesto, Dewayne Attending Unavailable OmKatia hernandez Primary Care Unavailable Ommary, Katia Referring Unavailable Morehart, Lidia Jennifer Primary Care Unavailabl e Morehart, Lidia Jennifer Referring Unavailabl e Hernesto, Dewayne Attending Unavailable Morehart, Lidia Jennifer Primary Care Unavailabl e Savage, Talib Attending Unavailable Min Butt Attending Unavailable Morehart, Lidia Jennifer Primary Care UnavailKATIA Hui MD Attending Unavailable KATIA LAN MD Primary Care Unavailable KATIA LAN MD Admitting Unavailable Allergies Allergy Classification Reported Allergen(s) Allergy Type Date of Onset Reaction(s) Facility (20 sources) pioglitazone; Translations: [PIOGLITAZONE] Drug Allergy 10-14-2021 Unknown [facility] (1 source) pioglitazone Drug Allergy 01-04-2025 [facility] Repository (1 source) pioglitazone Drug Allergy [facility] Repository Medications Current Medications Medication Drug Class(es) Dates Sig (Normalized) Sig (Original) acetaminophen 325 mg oral tablet (1 source) Start: 07-29-2023 acetaminophen (TYLENOL) tablet 650 mg ARIPiprazole 15 mg oral tablet (14 sources) Atypical Antipsychotic Start: 11-27-2024 ARIPiprazole 15 [...] 11:00pm docusate sodium 50 mg / sennosides, chcf 8.6 mg oral tablet (7 sources) Start: 11-27-2024 take 1 tablet by [...] Folic Acid Discontinued 1 MG PO DAILY October 20, 2021 3:54pm May 02, 2022 [...] DM 20 mg-200 mg/10 mL oral liquid (5 sources) Start: 025 take 1 dose by mouth every eight hours as needed for cough and congestion Ashley-Tussin DM 20 mg-200 mg/10 mL oral liquid Dose = 10 mL, Oral, q8h, PRN Cough and congestion, 0 Refill(s) Start Date: 11/27/24 Status: Ordered Repeat number: 1 1 ml heparin sodium, porcine 00272 unt/ml injection (1 source) Unfractionated Heparin, Anti-coagulant [...] Start: 02-28-2022 take 4 tablets by mo uth once daily Lactobacillus Combo No.6 (Probiotic Complex) 4 billion cell Tablet Active 60 CELL PO DAILY February 28, 2022 12:00am 50 ml magnesium sulfate 40 mg/ml injection (1 source) Start: 07-27-2023 take 2000 mg intravenously every hour as needed 2,000 mg, IntraVENous, at 25 mL/hr, Admi nister over 2 Hours, PRN, Other, Per IV Magnesium Replacement Protocol, Starting on Leatha 07/27/23 at 2210 Mg Lab Replacement Action 1.4- 1.6 2 gram IVPB x 1 doses &nb sp; (2 gram Total) 1.0-1.3 2 gram IVPB x 2 doses &nb sp; (4 gram Total) less than 1.0 CALL PHYSICIAN and &n bsp; 2 gram IVPB x 2 doses (4 gram Total) Infuse at 1 gram/hr Repeat Mag level next AM Protocol not for use in Patients with CrCl less than 30mL/min melatonin 1 mg oral tablet (3 sources) take 1 tablet by mouth once daily at bedtime melatonin 1 mg chew Take 1 tablet by radhames th daily at bedtime. Active methocarba mol 500 mg oral tablet (3 sources) M u s c l e R e l a x a n t Start: 07-27-2023 End: 08-18-2023 take 1 tablet by mouth four times daily methocarbamol (ROBAXIN) 500 MG tablet Ta ke 1 tablet by mouth 4 times daily for 10 days 40 tablet 0 08/08/2023 08/08/2023 Discontinued metroNIDAZ OLE 500 mg oral tablet (13 sources) N i t r o i m i d a z o l e A n t i m i c r o b i a l Start: 06-21-2022 take 500 mg by mouth every eight hours Metronidazole Active 500 MG PO EVERY 8 H OURS 0 June 21, 2022 12:00am Start: 05-17-2022 [...] 06/24/2023 Active QUEtiapine 50 mg oral tablet (8 sources) Atypical Antipsychotic Start: 11-27-2024 QUEtiap ine [...] twice daily. sertraline 100 mg oral tablet (20 sources) Serotonin Reuptake Inhibitor Start: 11-27-2024 sertraline [...] 2022 6:07pm take 4 tablets by mo [facility] once daily sertraline (ZOLOFT) 50 mg tablet Take 200 mg by mouth once daily. Active take 2 tablets by mo ut once daily sertraline [...] tablet (20 sources) Serotonin Reuptake Inhibitor Start: 2 take 0.5-1 tablets by mouth once daily [...] 1/2 to 1 tablet nightly as needed. vitamin b12 1 mg oral capsule (20 sources) Vitamin B12 Start: 09-13-2021 take 1000 ug by mouth once daily Cyanocobalamin (Vitamin B-12) Active 1000 MCG PO DAILY September 13, 2021 12:00am Comment on above: Take 1,000 mcg by mo uth once daily. Completed/Discontinued Medications Medication Drug Class(es) Dates Sig (Normalized) Sig (Original) lactulose 667 mg/ml oral solution (20 sources) [...] Discontinued 20 GM PO TWICE A DAY 1199September 24, 2021 1:44pm November 03, 2021 2:38pm Comment on above: Take 20 g by mouth f our times daily. neomycin sulfate 500 mg oral tablet (20 sources) Aminoglycoside Antibacterial Start: End: 2 take 500 mg by mouth twice daily [...] September 27, 2021 1:04pm polyethylene glycol 3350 53356 mg powder for oral solution (1 source) [...] Take 200 mg by mouth twice daily. Vitamin B1 100 mg oral tablet (5 sources) Start: 11-27-2024 End: 12-07-2024 Vitamin B1 100 mg oral tablet Dose : 100 mg = 1 tab(s), Oral, qDay, # 10 tab(s), 0 Refill(s) Start Date: 11/27/24 Stop Date: 12/07/24 Status: Ordered Quantity: 10.0 Unit: tab(s) Repeat number: 1 Problems Active Problems Problem Classification Problem Date Documented Date Episodic/Chronic Alcohol-related disorders (20 sources) Alcoholic hepatitis; Translations: [Alcoholic hepatitis without ascites] Onset: 09-19-2023 Chronic Attention-deficit, conduct, and disruptive behavior disorders (4 sources) Disturbance in physical behavior; Translations: [Conduct disorder, unspecified] Chronic Attention-deficit, conduct, and disruptive behavior disorders (4 sources) Conduct disorder, unspecified; Translations: [Unspecified disturbance of conduct] Chronic Chronic kidney disease (7 sources) Chronic kidney disease; Translations: [Chronic kidney disease, unspecified] Chronic Coagulation and hemorrhagic disorders (1 source) Thrombocytopenia, unspecified; Translations: [Thrombocytopenia, unspecified] Onset: 07-17-2024 Chronic Diabetes mellitus without complication (20 sources) Type 2 diabetes mellitus in nonobese; Translations: [Type 2 diabetes mellitus without complications] Onset: 07-17-2024 Chronic E Codes: Fall (7 sources) Unspecified fall, initial encounter; Translations: [Fall] Onset: 02-19-2023 Episodic Epilepsy; convulsions (1 source) Seizure; Translations: [Unspecified convulsions] 01-01-2024 Episodic Essential hypertension (20 sources) Hypertensive disorder; Translations: [Essential (primary) hypertension] Chronic Fever of unknown origin (4 sources) Fever; Translations: [Fever, unspecified] Episodic Genitourinary symptoms and ill-defined conditions (16 sources) Increased frequency of urination; Translations: [Frequency of micturition] Episodic Immunizations and screening for infectious disease (20 sources) [employer] antibody positive; Translations: [Other specified abnormal immunological findings in serum] Episodic Mood disorders (5 sources) Major depressive disorder, recurrent severe without psychotic features; Translations: [Major depressive disorder, single episode, severe without psychotic features] Onset: 02-07-2023 Chronic Mood disorders (1 source) Mood disorders; Translations: [Depression, unspecified] Onset: 01-24-2025 Open wounds of extremities (7 sources) Laceration of finger without foreign body; [...] examination and observation following other accident] Onset: 02-12-2025 Episodic Other liver diseases (20 sources) Cirrhosis [...] Translations: [Unspecified jaundice] Episodic Other liver diseases (20 sources) Hepatic encephalopathy; Translations: [Hepatic failure, unspecified without coma] Onset: 01-24-2025 Episodic Other liver diseases (7 sources) Unspecified [...] urea cycle metabolism, unspecified] Onset: 11-02-2024 Chronic Other screening for suspected conditions (not mental disorders or infectious disease) (3 sources) Procedure carried out on subject; Translations: [Encounter for screening, unspecified] Onset: 01-24-2025 Episodic Residual codes; unclassified (10 sources) Restlessness and [...] Translations: [Disorientation, unspecified] Episodic Residual codes; unclassified (3 sources) Disorientation, unspecified; Translations: [Unspecified psychosis] Onset: 01-24-2025 Episodic Residual codes; unclassified (1 source) Disorientated; Translations: [Disorientation, unspecified] Onset: 01-24-2025 Episodic Residual codes; unclassified (1 source) Unspecified symptoms and signs involving cognitive functions and awareness; Translations: [Unspecified symptoms and signs involving cognitive functions and awareness] Onset: 05-07-2025 Episodic Residual codes; unclassified (1 source) Transient alteration of awareness; Translations: [Transient alteration of awareness] Onset: 02-12-2025 Episodic Schizophrenia and other psychotic disorders (2 [...] source) Suicidal ideations; Translations: [Suicidal ideations] Onset: 02-12-2025 Episodic Unclassified (3 sources) Unspecified fall; Translations: [Unspecified fall] Onset: 07-27-2023 Unclassified (2 sources) Accidental fall on or from other stairs or steps; Translations: [Accidental fall on or from other stairs or steps] Onset: 07-27-2023 Past or Other Problems Problem Classification Problem Date Documented Da te Episodic/Chronic Deficiency and other anemia (3 sources) Anemia, unspecified; Translations: [Anemia, unspecified] Onset: 07-17-2024 Episodic Fluid and electrolyte disorders (10 sources) Chronic hyponatremia; Translations: [Hypo-osmolality and hyponatremia] Onset: 07-17-2024 Episodic Skull and face fractures (17 sources) Fracture of mandible, unspecified, initial encounter for open fracture; Translations: [Closed fracture of angle of left mandible] Onset: 09-15-2022 09-15-2022 Episodic Results Test Name Value Interpretation Reference Range Facility Ammoniaon 05-02-2025 Ammonia (P) [Moles/Vol] 83.5 umol/L High 16-60 [facility] Comment on above: Performed By: #### L 503.5510, L500.4050, L100.0100 #### [facility] [address] [place], [address] CBC W/Diff, Automatedon - Absolute Lymph 1.40 X10 3/uL Normal 0.83-4.51 [facility] Comment on above: Performed By: #### L 503.5510, L500.4050, L100.0100 #### [facility] [address] [place], [address] Absolute Neut 3.1 X10 3/uL Normal 2.0-7.7 [facility] Comment on above: Performed By: #### L 503.5510, L500.4050, L100.0100 #### [facility] [address] [place], [address] Basophils/100 WBC (Bld) 0.6 % Normal 0-1 [facility] Comment on above: Performed By: #### L 503.5510, L500.4050, L100.0100 #### [facility] [address] [place], [address] Eosinophils/100 WBC (Bld) 2.8 % Normal 0-5 [facility] Comment on above: Performed By: #### L 503.5510, L500.4050, L100.0100 #### [facility] [address] [place], [address] Erythrocyte distribution width (RBC) [Ratio] 14.2 % Normal 11.6-14.6 [facility] Comment on above: Performed By: #### L 503.5510, L500.4050, L100.0100 #### [facility] [address] [place], [address] Hematocrit (Bld) [Volume fraction] 38.4 % Low 40-54 [facility] Comment on above: Performed By: #### L 503.5510, L500.4050, L100.0100 #### [facility] [address] [place], [address] Hemoglobin (Bld) [Mass/Vol] 14.2 g/dL Normal 13.0-16.5 [facility] Comment on above: Performed By: #### L 503.5510, L500.4050, L100.0100 #### [facility] [address] [place], [address] IG% 0.200 Normal 0.0-0.9 [facility] Comment on above: Result Comment: IG% - Immature Granulocytes (promyelocytes, myelocytes and metamyelocytes) > 1% indicates that a LEFT SHIFT is Present. Performed By: #### L 503.5510, L500.4050, L100.0100 #### [facility] [address] [place], [address] Lymphocytes/100 WBC (Bld) 27.6 % Normal 19-41 [facility] Comment on above: Performed By: #### L 503.5510, L500.4050, L100.0100 #### [facility] [address] [place], [address] MCH (RBC) [Entitic mass] 39.1 pg High 27.0-32.0 [facility] Comment on above: Performed By: #### L 503.5510, L500.4050, L100.0100 #### [facility] [address] [place], [address] MCHC (RBC) [Mass/Vol] 37.0 g/dL High 32-36 [facility] Comment on above: Performed By: #### L 503.5510, L500.4050, L100.0100 #### [facility] [address] [place], [address] MCV (RBC) [Entitic vol] 105.8 fL High 80-94 [facility] Comment on above: Performed By: #### L 503.5510, L500.4050, L100.0100 #### [facility] [address] [place], [address] Monocytes/100 WBC (Bld) 8.3 % Normal 0-10 [facility] Comment on above: Performed By: #### L 503.5510, L500.4050, L100.0100 #### [facility] [address] [place], [address] Neutrophils/100 WBC (Bld) 60.5 % Normal 47-70 [facility] Comment on above: Performed By: #### L 503.5510, L500.4050, L100.0100 #### [facility] [address] [place], [address] Nucleated RBC (Bld) [#/Vol] 0 10*3/uL Normal 0-5 [facility] Comment on above: Performed By: #### L 503.5510, L500.4050, L100.0100 #### [facility] [address] [place], [address] Platelet mean volume (Bld) [Entitic vol] 9.4 fL Normal 6.2-12.0 [facility] Comment on above: Performed By: #### L 503.5510, L500.4050, L100.0100 #### [facility] [address] [place], [address] Platelets (Bld) [#/Vol] 88 10*3/uL Low 150-450 [facility] Comment on above: Performed By: #### L 503.5510, L500.4050, L100.0100 #### [facility] [address] [place], [address] RBC (Bld) [#/Vol] 3.63 10*6/uL Low 4.6-6.2 [facility] Comment on above: Performed By: #### L 503.5510, L500.4050, L100.0100 #### [facility] [address] [place], [address] RDW SD 55.7 fl High 35.1-43.9 [facility] Comment on above: Performed By: #### L 503.5510, L500.4050, L100.0100 #### [facility] [address] [place], [address] WBC (Bld) [#/Vol] 5.1 10*3/uL Normal 4.4-11.0 [facility] Comment on above: Performed By: #### L 503.5510, L500.4050, L100.0100 #### [facility] [address] [place], [address] Comprehensive Metabolic Prof [facility] 05-02-2025 Albumin [Mass/Vol] 3.5 g/dL Normal 3.5-5.0 [facility] Comment on above: Performed By: #### L 503.5510, L500.4050, L100.0100 #### [facility] [address] [place], [address] Albumin/Globulin [Mass ratio] 1.1 {ratio} Normal 0.9-2.4 [facility] Comment on above: Performed By: #### L 503.5510, L500.4050, L100.0100 #### [facility] [address] [place], [address] ALK PHOS 166 U/L High 40-129 [facility] Comment on above: Performed By: #### L 503.5510, L500.4050, L100.0100 #### [facility] [address] [place], [address] ALT [Catalytic activity/Vol] 26 U/L Normal <=46 [facility] Comment on above: Performed By: #### L 503.5510, L500.4050, L100.0100 #### [facility] [address] [place], [address] AST [Catalytic activity/Vol] 54 U/L High <=37 [facility] Comment on above: Performed By: #### L 503.5510, L500.4050, L100.0100 #### [facility] [address] [place], [address] Bilirubin [Mass/Vol] 2.43 mg/dL High 0.00-1.30 [facility] Comment on above: Performed By: #### L 503.5510, L500.4050, L100.0100 #### [facility] [address] [place], [address] BUN/CRE 9.3 RATIO Low 10-20 [facility] Comment on above: Performed By: #### L 503.5510, L500.4050, L100.0100 #### [facility] [address] [place], [address] Calcium [Mass/Vol] 8.6 mg/dL Normal 7.6-11.0 [facility] Comment on above: Performed By: #### L 503.5510, L500.4050, L100.0100 #### [facility] [address] [place], [address] Chloride [Moles/Vol] 105 mmol/L Normal 98-108 [facility] Comment on above: Performed By: #### L 503.5510, L500.4050, L100.0100 #### [facility] [address] [place], [address] CO2 [Moles/Vol] 26.1 mmol/L Normal 21.0-32.0 [facility] Comment on above: Performed By: #### L 503.5510, L500.4050, L100.0100 #### [facility] [address] [place], [address] Creatinine [Mass/Vol] 0.90 mg/dL Normal 0.70-1.20 [facility] Comment on above: Performed By: #### L 503.5510, L500.4050, L100.0100 #### [facility] [address] [place], [address] ECRCL 108.92 ml/min Normal 50-250 [facility] Comment on above: Performed By: #### L 503.5510, L500.4050, L100.0100 #### [facility] [address] [place], [address] GAP 10 Normal 5-15 [facility] Comment on above: Performed By: #### L 503.5510, L500.4050, L100.0100 #### [facility] [address] [place], [address] GFR/1.73 sq M.predicted among non-blacks MDRD (S/P/Bld) [Vol rate/Area] 103 mL/min/{1.73_m2} Normal >60 [facility] Comment on above: Result Comment: mL/m in/1.73m2 CKD-EPI Creatinine Equation (2020) Performed By: #### L 503.5510, L500.4050, L100.0100 #### [facility] [address] [place], [address] Globulin (S) [Mass/Vol] 3.2 g/dL Normal 2.2-4.2 [facility] Comment on above: Performed By: #### L 503.5510, L500.4050, L100.0100 #### [facility] [address] [place], [address] Glucose [Mass/Vol] 119 mg/dL High 70-99 [facility] Comment on above: Performed By: #### L 503.5510, L500.4050, L100.0100 #### [facility] [address] [place], [address] Potassium [Moles/Vol] 3.5 mmol/L Normal 3.3-5.1 [facility] Comment on above: Performed By: #### L 503.5510, L500.4050, L100.0100 #### [facility] [address] [place], [address] Sodium [Moles/Vol] 140 mmol/L Normal 133-145 [facility] Comment on above: Performed By: #### L 503.5510, L500.4050, L100.0100 #### [facility] [address] [place], [address] T PROT 6.7 g/dL Normal 5.9-8.4 [facility] Comment on above: Performed By: #### L 503.5510, L500.4050, L100.0100 #### [facility] [address] [place], [address] Urea nitrogen [Mass/Vol] 8 mg/dL Normal 4-19 [facility] Comment on above: Performed By: #### L 503.5512, L500.4050, L100.0100 #### [facility] [address] [place], [address] Emergency Department Summary on 05-02-2025 Emergency Department Summary [facility] Medical Records Department [address] [place] [address] Emergency Department Summary 05/02/25 MR#: [id number] Acct: [id number] Name: ALEX ROJO Rep #: [id number] : 1975 50 From: Carlos Lawrence MD PCP: Lidia Rizvi MD Status:REG ER Location: ED HPI History of Present Illness Chief Complaint: Alt LOC Informant: patient Onset/Context/Timing Onset: Today and Hours Context: Gradual Onset Timing: Continuous Maximum Severity: Mild Narrative Narrative: 50-year-old male history of alcoholic cirrhosis with diabetes hypertension. Takes lactulose. He is concerned because he said this morning just felt foggy. He is concerned his ammonia level is elevated. He denies headache. He denies fever or chills. He denies nausea, vomiting or diarrhea. No dysuria. Prior similar symptoms: Yes Recent Illness/Hospitalization: No PFSH PFSH Medical History Former tobacco use History [...] pain Unknown History aripiprazole 15 mg tablet 7.5 mg PO DAILY 10/24/24 Unknown H istory melatonin 3 mg tablet 3 mg PO [...] tablet (Vitamin B-1) quetiapine 50 mg tablet 75 mg PO QHS 10/28/24 Unknown Hist ory [...] 25 mg tablet 25 mg PO DAILY alcohol cirrhosis 0 12/20/24 Unknown History of liver dextromethorphan-guaifen esin 10 10 ml PO Q8H PRN cough 01/04/25 Un known History mg-100 mg/5 mL oral liquid (Ashley-Tussin DM) ibuprofen 600 mg tablet 600 mg PO TID 01/04/25 Unknown His tory lactulose 10 gram/15 mL oral 15 ml PO Q6H #946 mL 01/04/25 Unkn own Rx solution (Generlac) magnesium hydroxide 400 mg/5 mL 30 ml PO DAILY PRN constipation Unknown History oral suspension (Dulcolax (magnesium hydroxide)) Allergy/AdvReac Type Severity Reaction Status Date / Time pioglitazone Allergy Mild liver Verified 01/04/25 08:14 damange Family History Other CVA (cerebral vascular [...] 1-2 times per week ROS ROS ED ROS Narrative Denies recent illness. Constitutional Constitutional ED: Denies chills or fever(s) Eyes Eyes: Denies blurry vision ENT ENT ED: Denies ear pain Cardiovascular Cardiovascular: Denies chest pain or palpitations Respiratory/Chest Respiratory/Chest: Denies cough, dyspnea or dyspnea on exertion Gastrointestinal Gastrointestinal: Denies abdominal pain or constipation Genitourinary Genitourinary ED: Denies dysuria or hematuria Musculoskeletal Musculoskeletal: Denies arthralgias or back pain Integumentary Denies abscess or Abrasions Neurologic Neurologic: Denies headache(s) Psychiatric Psych (more content not included)... Normal [facility] .Auto Diffon 01-24-2025 Basophil, Absolute 0.0 10 3/mcL Normal 0.0-0.3 [facility] [facility] Comment on above: Performed By: #### C BC, AMM, ADIFF, ANEU, GFR, MDW, CMP, TROPHS ####Ronnie [address] [place], [place] [address] Lymphocyte, Absolute 1.6 10 3/mcL Normal 0.9-4.3 [facility] Comment on above: Performed By: #### C BC, AMM, ADIFF, ANEU, GFR, MDW, CMP, TROPHS ####Ronnie [address] [place], [place] [address] Monocyte, Absolute 0.4 10 3/mcL Normal 0.1-1.4 [facility] Comment on above: Performed By: #### C BC, AMM, ADIFF, ANEU, GFR, MDW, CMP, TROPHS ####[address]nie [address] [place], [place] [address] .Auto DiffOrdered By: SYSTEM SYSTEM on 01-24-2025 Basophils/100 WBC (Bld) 0.7 % Normal 0.0-2.5 AO Workflow SS Comment on above: Performed By: #### C BC, AMM, ADIFF, ANEU, GFR, MDW, CMP, TROPHS ####Ronnie [address] [place], [place] [address] Eosinophil, Absolute 0.2 103/mcL Normal 0.0-0.7 AO Workflow SS Comment on above: Performed By: #### C BC, AMM, ADIFF, ANEU, GFR, MDW, CMP, TROPHS ####[address] [place], [place] [address] Eosinophils/100 WBC (Bld) 3.3 % Normal 0.0-6.0 AO Workflow SS Comment on above: Performed By: #### C BC, AMM, ADIFF, ANEU, GFR, MDW, CMP, TROPHS ####Ronnie [address] [place], [place] [address] Lymphocytes/100 WBC (Bld) 26.9 % Normal 20.0-40.0 AO Workflow SS Comment on above: Performed By: #### C BC, AMM, ADIFF, ANEU, GFR, MDW, CMP, TROPHS ####Ronnie [address] [place], [place] [address] Monocytes/100 WBC (Bld) 7.2 % Normal 2.0-13.0 AO Workflow SS Comment on above: Performed By: #### C BC, AMM, ADIFF, ANEU, GFR, MDW, CMP, TROPHS ####Ronnie [address] [place], [place] [address] Neutrophils/100 WBC (Bld) 61.9 % Normal 50.0-75.0 AO Workflow SS Comment on above: Performed By: #### C BC, AMM, ADIFF, ANEU, GFR, MDW, CMP, TROPHS ####Ronnie [address] [place], [place] [address] .GFROrdered By: SYSTEM SYSTE M on 01-24-2025 Estimated Glomerular Filtration Rate 100 ml/min/1.73sqm Normal AO Chemistry S Comment on above: Interpretive Data: Stages of Chronic Kidney Disease (CKD) Stage [...] 15-29 CKD 5 Kidney failure <15 Note: ( live 08/20/2024) the eGFR calculation was updated to the 2020 CKD-EPI creatinine equation without a race factor to calculate the eGFR results. Result Comment: Stages of Chronic Kidney Disease [...] 15-29 CKD 5 Kidney failure <15 Note: ( live 08/20/2024) the eGFR calculation was updated to the 2020 CKD-EPI creatinine equation without a race factor to calculate the eGFR results. Performed By: #### C BC, AMM, ADIFF, ANEU, GFR, MDW, CMP, TROPHS ####[address] [place], [place] [address] .MDWon 01-24-2025 Monocyte Distribution Width 16.48 Normal 0.00-20.00 [facility] Comment on above: Result Comment: For ED adult patients suspected of sepsis, MDW<=20.0 does not rule out sepsis or risk of sepsis Performed By: #### C BC, AMM, ADIFF, ANEU, GFR, MDW, CMP, TROPHS ####[place] [address] [place], [place] [address] .NEUABSon 01-24-2025 Neutrophil, Absolute 3.6 10 3/mcL Normal 2.3-8.1 [facility] Comment on above: Performed By: #### C BC, AMM, ADIFF, ANEU, GFR, MDW, CMP, TROPHS ####Ronnie [address] [place], [place] [address] AMMOrdered By: SYSTEM SYSTEM on 01-24-2025 Ammonia (P) [Moles/Vol] 56 umol/L High AO ADM SS Comment on above: Performed By: #### C BC, AMM, ADIFF, ANEU, GFR, MDW, CMP, TROPHS ####Ronnie [address] [place], [place] [address] CBCOrdered By: SYSTEM SYSTEM on 01-24-2025 Erythrocyte distribution width (RBC) [Ratio] 15.2 % Normal 11.5-15.5 AO Workflow SS Comment on above: Performed By: #### C BC, AMM, ADIFF, ANEU, GFR, MDW, CMP, TROPHS ####Ronnie [address] [place], [place] [address] Hematocrit (Bld) [Volume fraction] 36.6 % Low 40.0-52.0 AO Workflow SS Comment on above: Performed By: #### C BC, AMM, ADIFF, ANEU, GFR, MDW, CMP, TROPHS ####[address] [place], [place] [address] MCH (RBC) [Entitic mass] 38.9 pg High 27.0-33.0 AO Workflow SS Comment on above: Performed By: #### C BC, AMM, ADIFF, ANEU, GFR, MDW, CMP, TROPHS ####Ronnie [address] [place], [place] [address] MCHC 35.5 G/dL Normal 32.0-36.0 AO Workflow SS Comment on above: Performed By: #### C BC, AMM, ADIFF, ANEU, GFR, MDW, CMP, TROPHS ####Ronnie [address] [place], [place] [address] MCV (RBC) [Entitic vol] 109.4 fL High 81.0-100.0 AO Workflow SS Comment on above: Performed By: #### C BC, AMM, ADIFF, ANEU, GFR, MDW, CMP, TROPHS ####Ronnie [address] [place], [place] [address] Platelet mean volume (Bld) [Entitic vol] 7.2 fL Normal 6.4-10.5 AO Workflow SS Comment on above: Performed By: #### C BC, AMM, ADIFF, ANEU, GFR, MDW, CMP, TROPHS ####[address] [place], [place] [address] CBCon 01-24-2025 Hgb 13.0 G/dL Normal 13.0-17.5 [facility] Comment on above: Performed By: #### C BC, AMM, ADIFF, ANEU, GFR, MDW, CMP, TROPHS ####[address] [place], [place] [address] Platelet 94 10 3/mcL Low 150-450 [facility] Comment on above: Performed By: #### C BC, AMM, ADIFF, ANEU, GFR, MDW, CMP, TROPHS ####Ronnie [address] [place], [place] [address] RBC 3.35 10 6/mcL Low 4.50-6.00 [facility] Comment on above: Performed By: #### C BC, AMM, ADIFF, ANEU, GFR, MDW, CMP, TROPHS ####Ronnie [address] [place], [place] [address] WBC 5.9 10 3/mcL Normal 4.5-10.8 [facility] Comment on above: Performed By: #### C BC, AMM, ADIFF, ANEU, GFR, MDW, CMP, TROPHS ####[address] [place], [place] [address] CMPon 01-24-2025 Albumin Level 2.8 G/dL Low 3.5-5.0 [facility] Comment on above: Performed By: #### C BC, AMM, ADIFF, ANEU, GFR, MDW, CMP, TROPHS ####Ronnie [address] [place], [place] [address] ALT [Catalytic activity/Vol] 29 U/L Normal 16-63 [facility] Comment on above: Performed By: #### C BC, AMM, ADIFF, ANEU, GFR, MDW, CMP, TROPHS ####Ronnie [address] [place], [place] [address] AST [Catalytic activity/Vol] 48 U/L High 10-40 [facility] Comment on above: Performed By: #### C BC, AMM, ADIFF, ANEU, GFR, MDW, CMP, TROPHS ####Ronnie [address] [place], [place] [address] Bili Total 2.5 mg/dL High 0.2-1.0 [facility] Comment on above: Result Comment: Use of this assay is not recommended for patients undergoing treatment with eltrombopag due to the potential for falsely elevated results. Performed By: #### C BC, AMM, ADIFF, ANEU, GFR, MDW, CMP, TROPHS ####Ronnie [address] [place], [place] [address] BUN/Creatinine Ratio 8 ratio Normal 7-27 [facility] Comment on above: Performed By: #### C BC, AMM, ADIFF, ANEU, GFR, MDW, CMP, TROPHS ####Ronnie [address] [place], [place] [address] Total Protein 6.4 G/dL Normal 6.4-8.2 [facility] Comment on above: Performed By: #### C BC, AMM, ADIFF, ANEU, GFR, MDW, CMP, TROPHS ####[address] [place], [place] [address] CMPOrdered By: SYSTEM SYSTEM on 01-24-2025 Albumin/Globulin [Mass ratio] 0.8 {ratio} Low 1.1-2.5 AO ADM SS Comment on above: Performed By: #### C BC, AMM, ADIFF, ANEU, GFR, MDW, CMP, TROPHS ####Ronnie [address] [place], [place] [address] ALP [Catalytic activity/Vol] 213 U/L High 40-135 AO ADM SS Comment on above: Performed By: #### C BC, AMM, ADIFF, ANEU, GFR, MDW, CMP, TROPHS ####[address] [place], [place] [address] Calcium [Mass/Vol] 8.4 mg/dL Normal 8.4-10.2 AO ADM SS Comment on above: Performed By: #### C BC, AMM, ADIFF, ANEU, GFR, MDW, CMP, TROPHS ####[address] [place], [place] [address] Chloride [Moles/Vol] 108 mmol/L High 98-107 AO A DM SS Comment on above: Performed By: #### C BC, AMM, ADIFF, ANEU, GFR, MDW, CMP, TROPHS ####[address] [place], [place] [address] CO2 [Moles/Vol] 28 mmol/L Normal 22-29 AO ADM SS Comment on above: Performed By: #### C BC, AMM, ADIFF, ANEU, GFR, MDW, CMP, TROPHS ####[address] [place], [place] [address] Creatinine [Mass/Vol] 0.93 mg/dL Normal 0.67-1.17 AO ADM SS Comment on above: Performed By: #### C BC, AMM, ADIFF, ANEU, GFR, MDW, CMP, TROPHS ###[address] [place], [place] [address] Electrolyte Balance 7.0 mEq/L Normal 4.0-15.0 AO AD M SS Comment on above: Performed By: #### C BC, AMM, ADIFF, ANEU, GFR, MDW, CMP, TROPHS ###[address] [address] [place], [place] [address] Globulin 3.6 G/dL Normal 2.7-4.4 AO ADM SS Comment on above: Performed By: #### C BC, AMM, ADIFF, ANEU, GFR, MDW, CMP, TROPHS ####Ronnie [address] [place], [place] [address] Glucose [Mass/Vol] 129 mg/dL High 70-105 AO ADM SS Comment on above: Performed By: #### C BC, AMM, ADIFF, ANEU, GFR, MDW, CMP, TROPHS ####[address] [place], [place] [address] Potassium [Moles/Vol] 3.3 mmol/L Low 3.5-5.1 AO ADM SS Comment on above: Performed By: #### C BC, AMM, ADIFF, ANEU, GFR, MDW, CMP, TROPHS ####Ronnie [address] [place], [place] [address] Sodium [Moles/Vol] 143 mmol/L Normal 136-145 AO ADM SS Comment on above: Performed By: #### C BC, AMM, ADIFF, ANEU, GFR, MDW, CMP, TROPHS ####Ronnie [address] [place], [place] [address] Urea nitrogen [Mass/Vol] 7 mg/dL Normal 7-18 AO ADM SS Comment on above: Performed By: #### C BC, AMM, ADIFF, ANEU, GFR, MDW, CMP, TROPHS ####Ronnie [address] [place], [place] [address] LABORATORYOrdered By: Michell Olivier on 01-24-2025 Appearance (U) Clear (01/24/25 11:01 PM) Normal Clear AO Auto Urine SS Bilirubin Ql (U) Negative (01/24/25 11:01 PM) Normal Negative AO Auto Urine SS Color (U) Yellow (01/24/25 11:01 PM) Normal AO Auto Urine SS Glucose Test strip (U) [Mass/Vol] Negative Normal Negative AO Auto Urine SS Hemoglobin Auto test strip (U) [Mass/Vol] Negative (01/24/25 11:01 PM) Normal Negative AO Auto Urine SS Ketones Ql (U) Trace mg/dL Invalid Interpretation Code Negative AO Auto Urine SS UA Leuk Est Negative (01/24/25 11:01 PM) Normal Negative AO Auto Urine SS UA Nitrite Negative (01/24/25 11:01 PM) Normal Negative AO Auto Urine SS UA pH 6.5 (01/24/25 11:01 PM) Normal 5.0 - 8.0 AO Auto Urine SS UA Protein Negative Normal Negative AO Auto Urine SS UA Spec Grav 1.015 (01/24/25 11:01 PM) Normal 1.015-1.025 AO Auto Urine SS UA Specimen Type Not Given (01/24/25 11:01 PM) Normal AO Auto Urine SS UA Urobilinogen 0.2 E.U./dL Normal 0.2-1.0 AO Auto Urine SS LABORATORYOrdered By: SYSTEM SYSTEM on 01-24-2025 Albumin BCP dye [Mass/Vol] 2.8 G/dL Low 3.5 - 5.0 G/dL AO ADM SS ALT With P-5'-P [Catalytic activity/Vol] 29 U/L Normal 16 - 63 U/L AO ADM SS AST With P-5'-P [Catalytic activity/Vol] 48 U/L High 10 - 40 U/L AO ADM SS Basophils (Bld) [#/Vol] 0.0 103/mcL Normal 0.0 - 0.3 10^3/mcL AO Workflow SS Bilirubin [Mass/Vol] 2.5 mg/dL High 0.2 - 1 .0 mg/dL AO ADM SS Comment on above: Interpretive Data: U se of this assay is not recommended for patients undergoing treatment with eltrombopag due to the potential for falsely elevated results. Hemoglobin (Bld) [Mass/Vol] 13.0 G/dL Normal 13.0 - 17.5 G/dL AO Workflow SS Lymphocytes (Bld) [#/Vol] 1.6 103/mcL Normal 0.9 - 4.3 10^3/mcL AO Workflow SS Monocyte distribution width Auto (Bld) [Entitic vol] 16.48 1 Normal 0.00 - 20.00 AO Workflow SS Comment on above: Result Comment: For ED adult patients suspected of sepsis, MDW<=20.0 does not rule out sepsis or risk of sepsis Monocytes (Bld) [#/Vol] 0.4 103/mcL Normal 0.1 - 1.4 10^3/mcL AO Workflow SS Neutrophils (Bld) [#/Vol] 3.6 103/mcL Normal 2.3 - 8.1 10^3/mcL AO Workflow SS Platelets (Bld) [#/Vol] 94 103/mcL Low 150 - 450 10^3/mcL AO Workflow SS Protein [Mass/Vol] 6.4 G/dL Normal 6.4 - 8.2 G/dL AO ADM SS RBC (Bld) [#/Vol] 3.35 106/mcL Low 4.50 - 6.0 0 10^6/mcL AO Workflow SS Troponin I.cardiac DL <= 0.01 ng/mL [Mass/Vol] 4 ng/L Normal 0 - 76 ng/L AO ADM SS Comment on above: Interpretive Data: H igh Sensitive Troponin I Reference Ranges: Female: 0-51 ng/L Male: 0-76 ng/L Testing performed on Dimension EXL using a homogeneous sandwich chemiluminescent immunoassay based on [employer] technology. Urea nitrogen/Creatinine [Mass ratio] 8 ratio Normal 7 - 27 ratio AO ADM SS WBC (Bld) [#/Vol] 5.9 103/mcL Normal 4.5 - 10.8 10^3/mcL AO Workflow SS TROPHSon 01-24-2025 High Sensitivity Troponin I 4 ng/L Normal 0-76 [facility] Comment on above: Result Comment: High Sensitive Troponin I Reference Ranges: Female: 0-51 ng/L Male: 0-76 ng/L Testing performed on Dimension EXL using a homogeneous sandwich chemiluminescent immunoassay based on [employer] technology. Performed By: #### C BC, AMM, ADIFF, ANEU, GFR, MDW, CMP, TROPHS ####Ronnie [address] [place], [place] [address] UAon 01-24-2025 Color (U) Yellow Normal [facility] Comment on above: Performed By: #### U A ####[address] [place], [place] [address] Glucose (U) [Mass/Vol] Negative Normal Negative [facility] Comment on above: Performed By: #### U A ####[address] [place], [place] [address] Ketones Ql (U) Trace Abnormal Negative [facility] Comment on above: Performed By: #### U A ####[address] [place], [place] [address] UA Appear Clear Normal Clear [facility] Comment on above: Performed By: #### U A ####[address] [place], [place] [address] UA Blood Negative Normal Negative [facility] Comment on above: Performed By: #### U A ####[address] [place], [place] [address] UA Leuk Est Negative Normal Negative [facility] Comment on above: Performed By: #### U A ####[place] [address] UA Nitrite Negative Normal Negative [facility] Comment on above: Performed By: #### U A ####[facility] [place] [address] UA pH 6.5 Normal 5.0 - 8.0 [facility] Comment on above: Performed By: #### U A ####[place] [address] UA Protein Negative Normal Negative [facility] Comment on above: Performed By: #### U A ####[place] [address] [place] [address] UA Spec Grav 1.015 Normal 1.015-1.025 [facility] Comment on above: Performed By: #### U A ####[place] [address] UA Specimen Type Not Given Normal [facility] Comment on above: Performed By: #### U A ####[place] [address] UA Urobilinogen 0.2 E.U./dL Normal 0.2-1.0 [facility] Comment on above: Performed By: #### U A ####[place] [address] Urobilinogen (U) [Mass/Vol] Negative Normal Negative [facility] Comment on above: Performed By: #### U A ####[place] [address] .Auto Diffon 01-23-2025 Basophil, Absolute 0.0 10 3/mcL Normal 0.0-0.3 [facility] Comment on above: Performed By: #### A DIFF, CBC, AMM, ANEU, CMP, MDW, GFR, TROPHS ####[place] [address] [place] [address] Basophils/100 WBC (Bld) 0.3 % Normal 0.0-2.5 [facility] Comment on above: Performed By: #### A DIFF, CBC, AMM, ANEU, CMP, MDW, GFR, TROPHS ####[address] [address] Eosinophil, Absolute 0.1 10 3/mcL Normal 0.0-0.7 [facility] Comment on above: Performed By: #### A DIFF, CBC, AMM, ANEU, CMP, MDW, GFR, TROPHS ####[address] [address] Eosinophils/100 WBC (Bld) 1.3 % Normal 0.0-6.0 [facility] Comment on above: Performed By: #### A DIFF, CBC, AMM, ANEU, CMP, MDW, GFR, TROPHS ####[address] [address] Lymphocyte, Absolute 1.0 10 3/mcL Normal 0.9-4.3 [facility] Comment on above: Performed By: #### A DIFF, CBC, AMM, ANEU, CMP, MDW, GFR, TROPHS ####[address] [address] Lymphocytes/100 WBC (Bld) 19.7 % Low 20.0-40.0 [facility] Comment on above: Performed By: #### A DIFF, CBC, AMM, ANEU, CMP, MDW, GFR, TROPHS ####[address] [address] Monocyte, Absolute 0.4 10 3/mcL Normal 0.1-1.4 [facility] Comment on above: Performed By: #### A DIFF, CBC, AMM, ANEU, CMP, MDW, GFR, TROPHS ####[address] [address] Monocytes/100 WBC (Bld) 8.1 % Normal 2.0-13.0 [facility] Comment on above: Performed By: #### A DIFF, CBC, AMM, ANEU, CMP, MDW, GFR, TROPHS ####[facility] [place], [place] [address] Neutrophils/100 WBC (Bld) 70.6 % Normal 50.0-75.0 [facility] Comment on above: Performed By: #### A DIFF, CBC, AMM, ANEU, CMP, MDW, GFR, TROPHS ####Ronnie [address] [place], [place] [address] .GFRon 01-23-2025 Estimated Glomerular Filtration Rate 107 ml/min/1.73sqm Normal [facility] Comment on above: Result Comment: Stages of [...] calculate the eGFR results. Performed By: #### A DIFF, CBC, AMM, ANEU, CMP, MDW, GFR, TROPHS ####Ronnie [address] [place], [place] [address] .MDWon 01-23-2025 Monocyte Distribution Width 17.09 Normal 0.00-20.00 [facility] Comment on above: Result Comment: For ED adult patients suspected of sepsis, MDW<=20.0 does not rule out sepsis or risk of sepsis Performed By: #### A DIFF, CBC, AMM, ANEU, CMP, MDW, GFR, TROPHS ####[place] [address] [place], [place] [address] .NEUABSon 01-23-2025 Neutrophil, Absolute 3.7 10 3/mcL Normal 2.3-8.1 [facility] Comment on above: Performed By: #### A DIFF, CBC, AMM, ANEU, CMP, MDW, GFR, TROPHS ####Ronnie [address] [address] Onel 01-23-2025 Ammonia (P) [Moles/Vol] 43 umol/L High 11-32 [facility] Comment on above: Performed By: #### A DIFF, CBC, AMM, ANEU, CMP, MDW, GFR, TROPHS ####[address] [address] CBCon 01-23-2025 Erythrocyte distribution width (RBC) [Ratio] 15.2 % Normal 11.5-15.5 [facility] Comment on above: Performed By: #### A DIFF, CBC, AMM, ANEU, CMP, MDW, GFR, TROPHS ####[place] [address] Hematocrit (Bld) [Volume fraction] 37.4 % Low 40.0-52.0 [facility] Comment on above: Performed By: #### A DIFF, CBC, AMM, ANEU, CMP, MDW, GFR, TROPHS ####[address] [address] Hgb 13.5 G/dL Normal 13.0-17.5 [facility] Comment on above: Performed By: #### A DIFF, CBC, AMM, ANEU, CMP, MDW, GFR, TROPHS ####[address] [address] MCH (RBC) [Entitic mass] 38.9 pg High 27.0-33.0 [facility] Comment on above: Performed By: #### A DIFF, CBC, AMM, ANEU, CMP, MDW, GFR, TROPHS ####[address] [address] MCHC 36.1 G/dL High 32.0-36.0 [facility] Comment on above: Performed By: #### A DIFF, CBC, AMM, ANEU, CMP, MDW, GFR, TROPHS ####[address] [address] MCV (RBC) [Entitic vol] 107.9 fL High 81.0-100.0 [facility] Comment on above: Performed By: #### A DIFF, CBC, AMM, ANEU, CMP, MDW, GFR, TROPHS ####Ronnie [address] [place], [place] [address] Platelet 88 10 3/mcL Low 150-450 [facility] Comment on above: Performed By: #### A DIFF, CBC, AMM, ANEU, CMP, MDW, GFR, TROPHS ####Ronnie [address] [place], [place] [address] Platelet mean volume (Bld) [Entitic vol] 7.0 fL Normal 6.4-10.5 [facility] Comment on above: Performed By: #### A DIFF, CBC, AMM, ANEU, CMP, MDW, GFR, TROPHS ####Ronnie [address] [place], [place] [address] RBC 3.47 10 6/mcL Low 4.50-6.00 [facility] Comment on above: Performed By: #### A DIFF, CBC, AMM, ANEU, CMP, MDW, GFR, TROPHS ####[place] [place], [place] [address] WBC 5.3 10 3/mcL Normal 4.5-10.8 [facility] Comment on above: Performed By: #### A DIFF, CBC, AMM, ANEU, CMP, MDW, GFR, TROPHS ####[facility] [place], [place] [address] CMPon 01-23-2025 Albumin Level 3.0 G/dL Low 3.5-5.0 [facility] Comment on above: Performed By: #### A DIFF, CBC, AMM, ANEU, CMP, MDW, GFR, TROPHS ####[facility] [place], [place] [address] Albumin/Globulin [Mass ratio] 0.8 {ratio} Low 1.1-2.5 [facility] Comment on above: Performed By: #### A DIFF, CBC, AMM, ANEU, CMP, MDW, GFR, TROPHS ####[address] [address] ALP [Catalytic activity/Vol] 170 U/L High 40-135 [facility] Comment on above: Performed By: #### A DIFF, CBC, AMM, ANEU, CMP, MDW, GFR, TROPHS ####[facility] [place], [place] [address] ALT [Catalytic activity/Vol] 32 U/L Normal 16-63 [facility] Comment on above: Performed By: #### A DIFF, CBC, AMM, ANEU, CMP, MDW, GFR, TROPHS ####[place] [address] [place], [place] [address] AST [Catalytic activity/Vol] 53 U/L High 10-40 [facility] Comment on above: Performed By: #### A DIFF, CBC, AMM, ANEU, CMP, MDW, GFR, TROPHS ####[place] [address] [place], [place] [address] Bili Total 2.9 mg/dL High 0.2-1.0 [facility] Comment on above: Result Comment: Use of this assay is not recommended for patients undergoing treatment with eltrombopag due to the potential for falsely elevated results. Performed By: #### A DIFF, CBC, AMM, ANEU, CMP, MDW, GFR, TROPHS ####[place] [address] [place], [place] [address] BUN/Creatinine Ratio 9 ratio Normal 7-27 [facility] Comment on above: Performed By: #### A DIFF, CBC, AMM, ANEU, CMP, MDW, GFR, TROPHS ####[facility] [place], [place] [address] Calcium [Mass/Vol] 8.2 mg/dL Low 8.4-10.2 [facility] Comment on above: Performed By: #### A DIFF, CBC, AMM, ANEU, CMP, MDW, GFR, TROPHS ####[facility] [place], [place] [address] Chloride [Moles/Vol] 107 mmol/L Normal 98-107 [facility] Comment on above: Performed By: #### A DIFF, CBC, AMM, ANEU, CMP, MDW, GFR, TROPHS ####[address] [address] CO2 [Moles/Vol] 28 mmol/L Normal 22-29 [facility] Comment on above: Performed By: #### A DIFF, CBC, AMM, ANEU, CMP, MDW, GFR, TROPHS ####[address] [address] Creatinine [Mass/Vol] 0.82 mg/dL Normal 0.67-1.17 [facility] Comment on above: Performed By: #### A DIFF, CBC, AMM, ANEU, CMP, MDW, GFR, TROPHS ####[address] [address] Electrolyte Balance 7.0 mEq/L Normal 4.0-15.0 [facility] Comment on above: Performed By: #### A DIFF, CBC, AMM, ANEU, CMP, MDW, GFR, TROPHS ####[address] [address] Globulin 4.0 G/dL Normal 2.7-4.4 [facility] Comment on above: Performed By: #### A DIFF, CBC, AMM, ANEU, CMP, MDW, GFR, TROPHS ####[address] [address] Glucose [Mass/Vol] 109 mg/dL High 70-105 [facility] Comment on above: Performed By: #### A DIFF, CBC, AMM, ANEU, CMP, MDW, GFR, TROPHS ####[address] [address] Potassium [Moles/Vol] 3.1 mmol/L Low 3.5-5.1 [facility] Comment on above: Performed By: #### A DIFF, CBC, AMM, ANEU, CMP, MDW, GFR, TROPHS ####[address] [address] Sodium [Moles/Vol] 142 mmol/L Normal 136-145 [facility] Comment on above: Performed By: #### A DIFF, CBC, AMM, ANEU, CMP, MDW, GFR, TROPHS ####[facility] [place], [place] [address] Total Protein 7.0 G/dL Normal 6.4-8.2 [facility] Comment on above: Performed By: #### A DIFF, CBC, AMM, ANEU, CMP, MDW, GFR, TROPHS ####[facility] [place], [place] [address] Urea nitrogen [Mass/Vol] 7 mg/dL Normal 7-18 [facility] Comment on above: Performed By: #### A DIFF, CBC, AMM, ANEU, CMP, MDW, GFR, TROPHS ####[facility] [place], [place] [address] CT HEAD OR BRAIN W/O CONTRAS Ton 01-23-2025 CT HEAD OR BRAIN W/O CONTRAST ORIGINAL EXAMINATION: CT OF THE HEAD WITHOUT CONTRAST 01/23/2025 12:51 am TECHNIQUE: CT of the head was performed without the administration of intravenous contrast. Automated exposure control, iterative reconstruction, and/or weight based adjustment of the mA/kV was utilized to reduce the radiation dose to as low as reasonably achievable. COMPARISON: 07/14/2024 HISTORY: ORDERING SYSTEM PROVIDED HISTORY: Reason for Exam: Altered mental status FINDINGS: BRAIN/VENTRICLES: There is no acute intracranial [...] soft tissues. IMPRESSION: No acute intracranial abnormality. I have personally reviewed the images of this examination and agree with the resident's findings and interpretation. Interpreted by: Lisa Baer MD Preliminary Report By: Chacorta Kapadia Electronically signed By Lisa Baer MD Dictated Date: 01/23/2025 12:56:15 AM Prelim Date: 01/23/2025 12:58:53 AM Sign Date: 01/23/2025 2:11:46 AM Ordering Provider: PITER TRAN Interpreted by: Lisa Baer MD Preliminary Report By: Chacorta Kapadia Electronically signed By Lisa Baer MD Dictated Date: 01/23/2025 12:56:15 AM Prelim Date: 01/23/2025 12:58:53 AM Sign Date: 01/23/2025 2:11:46 AM Ordering Provider: PITER TRAN Normal [facility] SYSTEM SYSTEM on 01-23-2025 Albumin BCP dye [Mass/Vol] 3.0 G/dL Low 3.5 - 5.0 G/dL AO ADM SS Albumin/Globulin [Mass ratio] 0.8 {ratio} Low 1.1 - 2.5 ratio AO ADM SS ALP [Catalytic activity/Vol] 170 U/L High 40 - 135 U/L AO ADM SS ALT With P-5'-P [Catalytic activity/Vol] 32 U/L Normal 16 - 63 U/L AO ADM SS Ammonia (P) [Moles/Vol] 43 umol/L High 11 - 32 umol/L AO ADM SS AST With P-5'-P [Catalytic activity/Vol] 53 U/L High 10 - 40 U/L AO ADM SS Basophils (Bld) [#/Vol] 0.0 103/mcL Normal 0.0 - 0.3 10^3/mcL AO Workflow SS Basophils/100 WBC (Bld) 0.3 % Normal 0.0 - 2.5 % AO Workflow SS Bilirubin [Mass/Vol] 2.9 mg/dL High 0.2 - 1 .0 mg/dL AO ADM SS Comment on above: Interpretive Data: U se of this assay is not recommended for patients undergoing treatment with eltrombopag due to the potential for falsely elevated results. Calcium [Mass/Vol] 8.2 mg/dL Low 8.4 - 10. 2 mg/dL AO ADM SS Chloride [Moles/Vol] 107 mmol/L Normal 98 - 10 7 mmol/L AO ADM SS CO2 [Moles/Vol] 28 mmol/L Normal 22 - 29 mmol/L AO ADM SS Creatinine [Mass/Vol] 0.82 mg/dL Normal 0.67 - 1.17 mg/dL AO ADM SS Electrolyte Balance 7.0 mEq/L Normal 4.0 - 15 .0 mEq/L AO ADM SS Eosinophil, Absolute 0.1 103/mcL Normal 0.0 - 0 .7 10^3/mcL AO Workflow SS Eosinophils/100 WBC (Bld) 1.3 % Normal 0.0 - 6.0 % AO Workflow SS Erythrocyte distribution width (RBC) [Ratio] 15.2 % Normal 11.5 - 15.5 % AO Workflow SS Estimated Glomerular Filtration Rate 107 ml/min/1.73sqm Invalid Interpretation Code AO Chemistry S Comment on above: Interpretive Data: Stages of Chronic Kidney Disease (CKD) Stage [...] race factor to calculate the eGFR results. Globulin 4.0 G/dL Normal 2.7 - 4.4 G/dL AO ADM SS Glucose [Mass/Vol] 109 mg/dL High 70 - 105 mg/dL AO ADM SS Hematocrit (Bld) [Volume fraction] 37.4 % Low 40.0 - 52.0 % AO Workflow SS Hemoglobin (Bld) [Mass/Vol] 13.5 G/dL Normal 13.0 - 17.5 G/dL AO Workflow SS Lymphocytes (Bld) [#/Vol] 1.0 103/mcL Normal 0.9 - 4.3 10^3/mcL AO Workflow SS Lymphocytes/100 WBC (Bld) 19.7 % Low 20.0 - 40.0 % AO Workflow SS MCH (RBC) [Entitic mass] 38.9 pg High 27.0 - 33.0 pg AO Workflow SS MCHC 36.1 G/dL High 32.0 - 36.0 G/dL AO Workflow SS MCV (RBC) [Entitic vol] 107.9 fL High 81.0 - 100.0 fL AO Workflow SS Monocyte distribution width Auto (Bld) [Entitic vol] 17.09 1 Normal 0.00 - 20.00 AO Workflow SS Comment on above: Result Comment: For ED adult patients suspected of sepsis, MDW<=20.0 does not rule out sepsis or risk of sepsis Monocytes (Bld) [#/Vol] 0.4 103/mcL Normal 0.1 - 1.4 10^3/mcL AO Workflow SS Monocytes/100 WBC (Bld) 8.1 % Normal 2.0 - 13.0 % AO Workflow SS Neutrophils (Bld) [#/Vol] 3.7 103/mcL Normal 2.3 - 8.1 10^3/mcL AO Workflow SS Neutrophils/100 WBC (Bld) 70.6 % Normal 50.0 - 75.0 % AO Workflow SS Platelet mean volume (Bld) [Entitic vol] 7.0 fL Normal 6.4 - 10.5 fL AO Workflow SS Platelets (Bld) [#/Vol] 88 103/mcL Low 150 - 450 10^3/mcL AO Workflow SS Potassium [Moles/Vol] 3.1 mmol/L Low 3.5 - 5.1 mmol/L AO ADM SS Protein [Mass/Vol] 7.0 G/dL Normal 6.4 - 8.2 G/dL AO ADM SS RBC (Bld) [#/Vol] 3.47 106/mcL Low 4.50 - 6.0 0 10^6/mcL AO Workflow SS Sodium [Moles/Vol] 142 mmol/L Normal 136 - 145 mmol/L AO ADM SS Troponin I.cardiac DL <= 0.01 ng/mL [Mass/Vol] 9 ng/L Normal 0 - 76 ng/L AO ADM SS Comment on above: Interpretive Data: H igh Sensitive Troponin I Reference Ranges: Female: 0-51 ng/L Male: 0-76 ng/L Testing performed on [employer] using a homogeneous sandwich chemiluminescent immunoassay based on [employer] technology. Urea nitrogen [Mass/Vol] 7 mg/dL Normal 7 - 18 mg/dL AO ADM SS Urea nitrogen/Creatinine [Mass ratio] 9 ratio Normal 7 - 27 ratio AO ADM SS WBC (Bld) [#/Vol] 5.3 103/mcL Normal 4.5 - 10.8 10^3/mcL AO Workflow SS [facility] High Sensitivity Troponin I 9 ng/L Normal 0-76 [facility] Comment on above: Result Comment: High Sensitive Troponin I Reference Ranges: Female: 0-51 ng/L Male: 0-76 ng/L Testing performed on [employer] using a homogeneous sandwich chemiluminescent immunoassay based on [employer] technology. Performed By: #### A DIFF, CBC, AMM, ANEU, CMP, MDW, GFR, TROPHS ####[id number] [place], [place] [address] Ammoniaon 01-04-2025 Ammonia (P) [Moles/Vol] 83.7 umol/L High 16-60 [facility] Comment on above: Result Comment: Hemo lysis present, Results??could be affected. ?? Performed By: #### L 503.5510, L500.4050, L100.0100 #### [facility] [address] [place], [address] CBC W/Diff, Automatedon 12-16 Absolute Lymph 1.02 X10 3/uL Normal 0.83-4.51 [facility] Comment on above: Performed By: #### L 503.5510, L500.4050, L100.0100 #### [facility] [address] [place], [address] Absolute Neut 2.3 X10 3/uL Normal 2.0-7.7 [facility] Comment on above: Performed By: #### L 503.5510, L500.4050, L100.0100 #### [facility] [address] [place], [address] Basophils/100 WBC (Bld) 0.5 % Normal 0-1 [facility] Comment on above: Performed By: #### L 503.5510, L500.4050, L100.0100 #### [facility] [address] [place], [address] Eosinophils/100 WBC (Bld) 2.4 % Normal 0-5 [facility] Comment on above: Performed By: #### L 503.5510, L500.4050, L100.0100 #### [facility] [address] [place], [address] Erythrocyte distribution width (RBC) [Ratio] 14.6 % Normal 11.6-14.6 [facility] Comment on above: Performed By: #### L 503.5510, L500.4050, L100.0100 #### [facility] [address] [place], [address] Hematocrit (Bld) [Volume fraction] 36.6 % Low 40-54 [facility] Comment on above: Performed By: #### L 503.5510, L500.4050, L100.0100 #### [facility] [address] [place], [address] Hemoglobin (Bld) [Mass/Vol] 13.3 g/dL Normal 13.0-16.5 [facility] Comment on above: Performed By: #### L 503.5510, L500.4050, L100.0100 #### [facility] [address] [place], [address] IG% 0.000 Normal 0.0-0.9 [facility] Comment on above: Result Comment: IG% - Immature Granulocytes (promyelocytes, myelocytes and metamyelocytes) > 1% indicates that a LEFT SHIFT is Present. Performed By: #### L 503.5510, L500.4050, L100.0100 #### [facility] [address] [place], [address] Lymphocytes/100 WBC (Bld) 27.2 % Normal 19-41 [facility] Comment on above: Performed By: #### L 503.5510, L500.4050, L100.0100 #### [facility] [address] [place], [address] MCH (RBC) [Entitic mass] 38.1 pg High 27.0-32.0 [facility] Comment on above: Performed By: #### L 503.5510, L500.4050, L100.0100 #### [facility] [address] [place], [address] MCHC (RBC) [Mass/Vol] 36.3 g/dL High 32-36 [facility] Comment on above: Performed By: #### L 503.5510, L500.4050, L100.0100 #### [facility] [address] [place], [address] MCV (RBC) [Entitic vol] 104.9 fL High 80-94 [facility] Comment on above: Performed By: #### L 503.5510, L500.4050, L100.0100 #### [facility] [address] [place], [address] Monocytes/100 WBC (Bld) 8.3 % Normal 0-10 [facility] Comment on above: Performed By: #### L 503.5510, L500.4050, L100.0100 #### [facility] [address] [place], [address] Neutrophils/100 WBC (Bld) 61.6 % Normal 47-70 [facility] Comment on above: Performed By: #### L 503.5510, L500.4050, L100.0100 #### [facility] [address] [place], [address] Nucleated RBC (Bld) [#/Vol] 0 10*3/uL Normal 0-5 [facility] Comment on above: Performed By: #### L 503.5510, L500.4050, L100.0100 #### [facility] [address] [place], [address] Platelet mean volume (Bld) [Entitic vol] 10.0 fL Normal 6.2-12.0 [facility] Comment on above: Performed By: #### L 503.5510, L500.4050, L100.0100 #### [facility] [address] [place], [address] Platelets (Bld) [#/Vol] 80 10*3/uL Low 150-450 [facility] Comment on above: Performed By: #### L 503.5510, L500.4050, L100.0100 #### [facility] [address] [place], [address] RBC (Bld) [#/Vol] 3.49 10*6/uL Low 4.6-6.2 [facility] Comment on above: Performed By: #### L 503.5510, L500.4050, L100.0100 #### [facility] [address] [place], [address] RDW SD 55.8 fl High 35.1-43.9 [facility] Comment on above: Performed By: #### L 503.5510, L500.4050, L100.0100 #### [facility] [address] [place], [address] WBC (Bld) [#/Vol] 3.8 10*3/uL Low 4.4-11.0 [facility] Comment on above: Performed By: #### L 503.5510, L500.4050, L100.0100 #### [facility] [address] [place], [address] Emergency Department Summary on 01-04-2025 Emergency Department Summary [facility] Medical Records Department [address] [place] [address] Emergency Department Summary 01/04/25 MR#: [id number] Acct: [id number] Name: ALEX ROJO Rep #: [id number] : 1975 49 From: Talib Savage MD PCP: Lidia Rizvi MD Status:REG ER Location: ED HPI History of Present Illness Chief Complaint: Abn Labs Detail of Chief Complaint: Altered mental status, history of hepatic encephalopathy Informant: patient, EMS and SNF Onset/Context/Timing Onset: Yesterday Context: Gradual Onset Timing: Continuous Quality: Not as alert Location: Presents from nursing facility Current Severity: Mild Maximum Severity: Mild Worsened by: Reported elevated ammonia level Relieved by: Nothing Associated Symptoms Associated Symptoms: None Narrative Narrative: Patient is a 49-year-old male. He has history of alcoholic liver disease with cirrhosis, hepatic encephalopathy, peptic ulcer disease, who presents by ambulance because of decreased level of consciousness. He answers questions slowly. He denies change in color of his urine. He denies decrease or increased urine output. He denies change in bowels and specifically size, consistency or color of his stool. He denies nausea, vomiting or diarrhea. He denies ill contacts. He denies fever, chills or night sweats. He denies headache. Denies double vision blurred vision loss of vision. No drainage there is a decreased hearing. He denies trouble with speech. He denies chest pain, tightness or heaviness. He denies shortness of breath or dyspnea on exertion. He denies abdominal pain or bloating. Review of his med list indicates he is not presently on lactulose. Prior similar symptoms: Yes Recent Illness/Hospitalization: No PFSH PFSH Medical History Former tobacco use History [...] pain Unknown History aripiprazole 15 mg tablet 7.5 mg PO DAILY 10/24/24 Unknown H istory melatonin 3 mg tablet 3 mg PO [...] tablet (Vitamin B-1) quetiapine 50 mg tablet 75 mg PO QHS 10/28/24 Unknown Hist ory [...] 25 mg tablet 25 mg PO DAILY alcohol cirrhosis 0 12/20/24 Unknown History of liver dextromethorphan-guaifen esin 10 10 ml PO Q8H PRN cough 01/04/25 Un known History mg-100 mg/5 mL oral liquid (Ashley-Tussin DM) ibuprofen 600 mg tablet 600 mg PO TID 01/04/25 Unknown His tory lactulose 10 gram/15 mL oral 15 ml PO BID #473 mL 01/04/25 Unkn own Rx solution (Generlac) magnesium hydroxide 400 mg/5 mL 30 ml PO DAILY PRN constipation Unknown History oral suspension (Dulcolax (magnesium hydroxide)) Allergy/AdvReac Type Severity Reaction Status Date / Time pioglitazone Allergy Mild liver Verified 01/04/25 08:14 damange Family History Other CVA (cerebral vascular accident) Cancer Cirrhosis Heart disease Hypertension Thyroid disorder Surgical History History of esophagogastroduodenosco py (EGD) History of surgery Social History housing: homeless 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 Normal [facility] Lactic Acidon 01-04-2025 Lactate [Moles/Vol] 1.9 mmol/L Normal 0.0-2.0 [facility] Comment on above: Order Comment: Y Performed By: #### L 503.5510, L500.4050, L100.0100 #### [facility] [address] [place], [address] Lipaseon 01-04-2025 Lipase [Catalytic activity/Vol] 48 U/L Normal 13-75 [facility] Comment on above: Order Comment: REDRA W. PREVIOUS SPECIMEN REJECTED DUE TOHEMOLYZED. 01/04/25 0858 Nicolle Wiseman. Result Comment: Romy magana note: LIPASE revised reference range effective 22. New Lipase methodology. Expected to produce lower values than the previous assay method. NEW Reference Range: 13 - 75 U/L Performed By: #### L 503.5510, L500.4050, L100.0100 #### [facility] [address] [place], [address] Liver Profileon 01-04-2025 Albumin [Mass/Vol] 3.3 g/dL Low 3.5-5.0 [facility] Comment on above: Order Comment: REDRA W. PREVIOUS SPECIMEN REJECTED DUE TOHEMOLYZED. 01/04/25 0858 Nicolle Wiseman. Performed By: #### L 503.5510, L500.4050, L100.0100 #### [facility] [address] [place], [address] ALK PHOS 182 U/L High 40-129 [facility] Comment on above: Order Comment: REDRA W. PREVIOUS SPECIMEN REJECTED DUE TOHEMOLYZED. 01/04/25 0858 Nicolle Vojtush. Performed By: #### L 503.5510, L500.4050, L100.0100 #### [facility] [address] [place], [address] ALT [Catalytic activity/Vol] 23 U/L Normal <=46 [facility] Comment on above: Order Comment: REDRA W. PREVIOUS SPECIMEN REJECTED DUE TOHEMOLYZED. 01/04/25 0858 Nicolle Vojtush. Performed By: #### L 503.5510, L500.4050, L100.0100 #### [facility] [address] [place], [address] AST [Catalytic activity/Vol] 50 U/L High <=37 [facility] Comment on above: Order Comment: REDRA W. PREVIOUS SPECIMEN REJECTED DUE TOHEMOLYZED. 01/04/2558 Nicolle Vojtush. Performed By: #### L 503.5510, L500.4050, L100.0100 #### [facility] [address] [place], [address] Bilirubin [Mass/Vol] 2.44 mg/dL High 0.00-1.30 [facility] Comment on above: Order Comment: REDRA W. PREVIOUS SPECIMEN REJECTED DUE TOHEMOLYZED. 01/04/25 0858 Nicolle Vojtush. Performed By: #### L 503.5510, L500.4050, L100.0100 #### [facility] [address] [place], [address] Bilirubin.direct [Mass/Vol] 1.18 mg/dL High 0.00-0.30 [facility] Comment on above: Order Comment: REDRA W. PREVIOUS SPECIMEN REJECTED DUE TOHEMOLYZED. 01/04/25 0858 Nicolle Vojtush. Performed By: #### L 503.5510, L500.4050, L100.0100 #### [facility] [address] [place], [address] Globulin (S) [Mass/Vol] 3.2 g/dL Normal 2.2-4.2 [facility] Comment on above: Order Comment: REDRA W. PREVIOUS SPECIMEN REJECTED DUE TOHEMOLYZED. 01/04/25 0858 Nicolle Vojtush. Performed By: #### L 503.5510, L500.4050, L100.0100 #### [facility] [address] [place], [address] T PROT 6.5 g/dL Normal 5.9-8.4 [facility] Comment on above: Order Comment: REDRA W. PREVIOUS SPECIMEN REJECTED DUE TOHEMOLYZED. 01/04/2558 Nicolle Vojtush. Performed By: #### L 503.5510, L500.4050, L100.0100 #### [facility] [address] [place], [address] ALB Normal 3.5-5.0 [facility] Comment on above: Result Comment: This specimen has been REJECTED due to Laboratory criteria: Hemolyzed. FLORENCIA has been notified of need of recollection. 01/04/25 0857 Nicolle Vojtush Performed By: #### L 503.5510, L500.4050, L100.0100 #### [facility] [address] [place], [address] ALK PHOS Normal 40-129 [facility] Comment on above: Result Comment: This specimen has been REJECTED due to Laboratory criteria: Hemolyzed. FLORENCIA has been notified of need of recollection. 01/04/25 0857 Nicolle Vojtush Performed By: #### L 503.5510, L500.4050, L100.0100 #### [facility] [address] [place], [address] ALT Normal <=46 [facility] Comment on above: Result Comment: This specimen has been REJECTED due to Laboratory criteria: Hemolyzed. FLORENCIA has been notified of need of recollection. 01/04/25 0857 Nicolle Vojtush Performed By: #### L 503.5510, L500.4050, L100.0100 #### [facility] [address] [place], [address] AST Normal <=37 [facility] Comment on above: Result Comment: This specimen has been REJECTED due to Laboratory criteria: Hemolyzed. FLORENCIA has been notified of need of recollection. 01/04/25 0857 Nicolle Vojtush Performed By: #### L 503.5510, L500.4050, L100.0100 #### [facility] [address] [place], [address] D BILI Normal 0.00-0.30 [facility] Comment on above: Result Comment: This specimen has been REJECTED due to Laboratory criteria: Hemolyzed. FLORENCIA has been notified of need of recollection. 01/04/25 0857 Nicolle Vojtush Performed By: #### L 503.5510, L500.4050, L100.0100 #### [facility] [address] [place], [address] T BILI Normal 0.00-1.30 [facility] Comment on above: Result Comment: This specimen has been REJECTED due to Laboratory criteria: Hemolyzed. FLORENCIA has been notified of need of recollection. 01/04/25 0857 Nicolle Vojtush Performed By: #### L 503.5510, L500.4050, L100.0100 #### [facility] [address] [place], [address] T PROT Normal 5.9-8.4 [facility] Comment on above: Result Comment: This specimen has been REJECTED due to Laboratory criteria: Hemolyzed. FLORENCIA has been notified of need of recollection. 01/04/25 0857 Nicolle Vojtush Performed By: #### L 503.5510, L500.4050, L100.0100 #### [facility] [address] [place], [address] Alcohol, Blood (Medical)-Ser umon 12-20-2024 SERUM ETOH < 10.1 Normal <=10.0 [facility] Comment on above: Result Comment: This test is for medical purposes only. The legal definition of intoxication varies according to local law. Performed By: #### L 503.5510, L500.3400, L500.2500, L100.0100 #### [facility] [address] [place], [address] Basic Metabolic Profile (BMP )on 12-20-2024 BUN/CRE 10.8 RATIO Normal 10-20 [facility] Comment on above: Performed By: #### L 503.5510, L500.3400, L500.2500, L100.0100 #### [facility] [address] [place], [address] Calcium [Mass/Vol] 8.0 mg/dL Normal 7.6-11.0 [facility] Comment on above: Performed By: #### L 503.5510, L500.3400, L500.2500, L100.0100 #### [facility] [address] [place], [address] Chloride [Moles/Vol] 104 mmol/L Normal 98-108 [facility] Comment on above: Performed By: #### L 503.5510, L500.3400, L500.2500, L100.0100 #### [facility] [address] [place], [address] CO2 [Moles/Vol] 21.3 mmol/L Normal 21.0-32.0 [facility] Comment on above: Performed By: #### L 503.5510, L500.3400, L500.2500, L100.0100 #### [facility] [address] [place], [address] Creatinine [Mass/Vol] 0.84 mg/dL Normal 0.70-1.20 [facility] Comment on above: Performed By: #### L 503.5510, L500.3400, L500.2500, L100.0100 #### [facility] [address] [place], [address] ECRCL 112.38 ml/min Normal 50-250 [facility] Comment on above: Performed By: #### L 503.5510, L500.3400, L500.2500, L100.0100 #### [facility] [address] [place], [address] GAP 11 Normal 5-15 [facility] Comment on above: Performed By: #### L 503.5510, L500.3400, L500.2500, L100.0100 #### [facility] [address] [place], [address] GFR/1.73 sq M.predicted among non-blacks MDRD (S/P/Bld) [Vol rate/Area] 106 mL/min/{1.73_m2} Normal >60 [facility] Comment on above: Result Comment: mL/m in/1.73m2 CKD-EPI Creatinine Equation (2020) Performed By: #### L 503.5510, L500.3400, L500.2500, L100.0100 #### [facility] [address] [place], [address] Glucose [Mass/Vol] 178 mg/dL High 70-99 [facility] Comment on above: Performed By: #### L 503.5510, L500.3400, L500.2500, L100.0100 #### [facility] [address] [place], [address] Potassium [Moles/Vol] 3.0 mmol/L Low 3.3-5.1 [facility] Comment on above: Performed By: #### L 503.5510, L500.3400, L500.2500, L100.0100 #### [facility] [address] [place], [address] Sodium [Moles/Vol] 137 mmol/L Normal 133-145 [facility] Comment on above: Performed By: #### L 503.5510, L500.3400, L500.2500, L100.0100 #### [facility] [address] [place], [address] Urea nitrogen [Mass/Vol] 9 mg/dL Normal 4-19 [facility] Comment on above: Performed By: #### L 503.5510, L500.3400, L500.2500, L100.0100 #### [facility] [address] [place], [address] CBC W/Diff, Automatedon 06-0 6-2024 Absolute Lymph 1.39 X10 3/uL Normal 0.83-4.51 [facility] Comment on above: Performed By: #### L 503.5510, L500.3400, L500.2500, L100.0100 #### [facility] [address] [place], [address] Absolute Neut 2.4 X10 3/uL Normal 2.0-7.7 [facility] Comment on above: Performed By: #### L 503.5510, L500.3400, L500.2500, L100.0100 #### [facility] [address] [place], [address] Basophils/100 WBC (Bld) 0.7 % Normal 0-1 [facility] Comment on above: Performed By: #### L 503.5510, L500.3400, L500.2500, L100.0100 #### [facility] [address] [place], [address] Eosinophils/100 WBC (Bld) 4.3 % Normal 0-5 [facility] Comment on above: Performed By: #### L 503.5510, L500.3400, L500.2500, L100.0100 #### [facility] [address] [place], [address] Erythrocyte distribution width (RBC) [Ratio] 14.7 % High 11.6-14.6 [facility] Comment on above: Performed By: #### L 503.5510, L500.3400, L500.2500, L100.0100 #### [facility] [address] [place], [address] Hematocrit (Bld) [Volume fraction] 33.6 % Low 40-54 [facility] Comment on above: Performed By: #### L 503.5510, L500.3400, L500.2500, L100.0100 #### [facility] [address] [place], [address] Hemoglobin (Bld) [Mass/Vol] 12.3 g/dL Low 13.0-16.5 [facility] Comment on above: Performed By: #### L 503.5510, L500.3400, L500.2500, L100.0100 #### [facility] [address] [place], [address] IG% 0.200 Normal 0.0-0.9 [facility] Comment on above: Result Comment: IG% - Immature Granulocytes (promyelocytes, myelocytes and metamyelocytes) > 1% indicates that a LEFT SHIFT is Present. Performed By: #### L 503.5510, L500.3400, L500.2500, L100.0100 #### [facility] [address] [place], [address] Lymphocytes/100 WBC (Bld) 31.2 % Normal 19-41 [facility] Comment on above: Performed By: #### L 503.5510, L500.3400, L500.2500, L100.0100 #### [facility] [address] [place], [address] MCH (RBC) [Entitic mass] 38.3 pg High 27.0-32.0 [facility] Comment on above: Performed By: #### L 503.5510, L500.3400, L500.2500, L100.0100 #### [facility] [address] [place], [address] MCHC (RBC) [Mass/Vol] 36.6 g/dL High 32-36 [facility] Comment on above: Performed By: #### L 503.5510, L500.3400, L500.2500, L100.0100 #### [facility] [address] [place], [address] MCV (RBC) [Entitic vol] 104.7 fL High 80-94 [facility] Comment on above: Performed By: #### L 503.5510, L500.3400, L500.2500, L100.0100 #### [facility] [address] [place], [address] Monocytes/100 WBC (Bld) 9.2 % Normal 0-10 [facility] Comment on above: Performed By: #### L 503.5510, L500.3400, L500.2500, L100.0100 #### [facility] [address] [place], [address] Neutrophils/100 WBC (Bld) 54.4 % Normal 47-70 [facility] Comment on above: Performed By: #### L 503.5510, L500.3400, L500.2500, L100.0100 #### [facility] [address] [place], [address] Nucleated RBC (Bld) [#/Vol] 0 10*3/uL Normal 0-5 [facility] Comment on above: Performed By: #### L 503.5510, L500.3400, L500.2500, L100.0100 #### [facility] Laboratory [address] [place], [address] Platelet mean volume (Bld) [Entitic vol] 9.8 fL Normal 6.2-12.0 [facility] Comment on above: Performed By: #### L 503.5510, L500.3400, L500.2500, L100.0100 #### [facility] Laboratory [address] [place], [address] Platelets (Bld) [#/Vol] 75 10*3/uL Low 150-450 [facility] Comment on above: Performed By: #### L 503.5510, L500.3400, L500.2500, L100.0100 #### [facility] Laboratory [address] [place], [address] RBC (Bld) [#/Vol] 3.21 10*6/uL Low 4.6-6.2 [facility] Comment on above: Performed By: #### L 503.5510, L500.3400, L500.2500, L100.0100 #### [facility] Laboratory [address] [place], [address] RDW SD 57.1 fl High 35.1-43.9 [facility] Comment on above: Performed By: #### L 503.5510, L500.3400, L500.2500, L100.0100 #### [facility] Laboratory [address] [place], [address] WBC (Bld) [#/Vol] 4.5 10*3/uL Normal 4.4-11.0 [facility] Comment on above: Performed By: #### L 503.5510, L500.3400, L500.2500, L100.0100 #### [facility] Laboratory [address] [place], [address] Emergency Department Summary on 12-20-2024 Emergency Department Summary [facility] Medical Records Department [address] [place] [address] Emergency Department Summary 12/20/24 MR#: [id number] Acct: [id number] Name: ALEX ROJO Rep #: [id number] : 1975 49 From: Min Butt DO PCP: Lidia Rizvi MD Status:REG ER Location: ED HPI History [...] he no longer has access to weapons. [facility] Medical History Former tobacco use History of [...] Hematologic/Lymphatic Hematologic/Lymphat (more content not included)... Normal [facility] Urine Drug Screen (VISTA)on 12-20-2024 AMPHETAMINES Negative Normal <1000 ng/mL [facility] Comment on above: Performed By: #### L 503.5510, L500.3400, L500.2500, L100.0100 #### [facility] Laboratory [address] [place] [address] BARBITIURATES Negative Normal < 200 ng/mL [facility] Comment on above: Performed By: #### L 503.5510, L500.3400, L500.2500, L100.0100 #### [facility] Laboratory [address] [facility] [address] BENZODIAZIPINE Negative Normal < 200 ng/mL [facility] Comment on above: Performed By: #### L 503.5510, L500.3400, L500.2500, L100.0100 #### [facility] Laboratory [address] [facility] [address] BUP Ur Drug Scr Negative Normal < 200 ng/mL [facility] Comment on above: Performed By: #### L 503.5510, L500.3400, L500.2500, L100.0100 #### [facility] Laboratory [address] [facility] [address] COCAINE Negative Normal < 300 ng/mL [facility] Comment on above: Performed By: #### L 503.5510, L500.3400, L500.2500, L100.0100 #### [facility] Laboratory [address] [place], [address] Fentanyl Negative Normal [facility] Comment on above: Performed By: #### L 503.5510, L500.3400, L500.2500, L100.0100 #### [facility] Laboratory [address] [place], [address] METHADONE Negative Normal < 300 ng/mL [facility] Comment on above: Performed By: #### L 503.5510, L500.3400, L500.2500, L100.0100 #### [facility] Laboratory [address] [place], [facility] OPIATES Negative Normal < 300 ng/mL [facility] Comment on above: Performed By: #### L 503.5510, L500.3400, L500.2500, L100.0100 #### [facility] Laboratory [address] [place], [address] OXYCODONE Negative Normal < 100 ng/mL [facility] Comment on above: Performed By: #### L 503.5510, L500.3400, L500.2500, L100.0100 #### [facility] Laboratory [address] [place], [address] PCP Negative Normal < 25 ng/mL [facility] Comment on above: Performed By: #### L 503.5510, L500.3400, L500.2500, L100.0100 #### [facility] Laboratory [address] [place], [address] THC Negative Normal < 50 ng/mL [facility] Comment on above: Performed By: #### L 503.5510, L500.3400, L500.2500, L100.0100 #### [facility] Laboratory [address] [place], [address] Ammoniaon 11-09-2024 Ammonia (P) [Moles/Vol] 136.0 umol/L High 16-60 [facility] Comment on above: Performed By: #### L 503.5510, L500.3400, L500.2500, L100.0100 #### [facility] Laboratory [address] [place], [address] Basic Metabolic Profile (BMP )on 11-09-2024 BUN/CRE 12.6 RATIO Normal 10-20 [facility] Comment on above: Performed By: #### L 503.5510, L500.3400, L500.2500, L100.0100 #### [facility] Laboratory [address] [place], [address] Calcium [Mass/Vol] 8.6 mg/dL Normal 7.6-11.0 [facility] Comment on above: Performed By: #### L 503.5510, L500.3400, L500.2500, L100.0100 #### [facility] Laboratory [address] [place], [address] Chloride [Moles/Vol] 107 mmol/L Normal 98-108 [facility] Comment on above: Performed By: #### L 503.5510, L500.3400, L500.2500, L100.0100 #### [facility] Laboratory [address] [place], [address] CO2 [Moles/Vol] 23.6 mmol/L Normal 21.0-32.0 [facility] Comment on above: Performed By: #### L 503.5510, L500.3400, L500.2500, L100.0100 #### [facility] Laboratory [address] [place], [address] Creatinine [Mass/Vol] 0.88 mg/dL Normal 0.70-1.20 [facility] Comment on above: Performed By: #### L 503.5510, L500.3400, L500.2500, L100.0100 #### [facility] Laboratory [address] [place], [address] ECRCL 110.80 ml/min Normal 50-250 [facility] Comment on above: Performed By: #### L 503.5510, L500.3400, L500.2500, L100.0100 #### [facility] Laboratory [address] [place], [address] GAP 10 Normal 5-15 [facility] Comment on above: Performed By: #### L 503.5510, L500.3400, L500.2500, L100.0100 #### [facility] Laboratory [address] [place], [address] GFR/1.73 sq M.predicted among non-blacks MDRD (S/P/Bld) [Vol rate/Area] 105 mL/min/{1.73_m2} Normal >60 [facility] Comment on above: Result Comment: mL/m in/1.73m2 CKD-EPI Creatinine Equation (2020) Performed By: #### L 503.5510, L500.3400, L500.2500, L100.0100 #### [facility] Laboratory [address] [place], [address] Glucose [Mass/Vol] 108 mg/dL High 70-99 [facility] Comment on above: Performed By: #### L 503.5510, L500.3400, L500.2500, L100.0100 #### [facility] Laboratory [address] [place], [address] Potassium [Moles/Vol] 3.7 mmol/L Normal 3.3-5.1 [facility] Comment on above: Performed By: #### L 503.5510, L500.3400, L500.2500, L100.0100 #### [facility] Laboratory [address] [place], [address] Sodium [Moles/Vol] 140 mmol/L Normal 133-145 [facility] Comment on above: Performed By: #### L 503.5510, L500.3400, L500.2500, L100.0100 #### [facility] Laboratory [address] [place], [address] Urea nitrogen [Mass/Vol] 11 mg/dL Normal 4-19 [facility] Comment on above: Performed By: #### L 503.5510, L500.3400, L500.2500, L100.0100 #### [facility] Laboratory [address] [place], [address] Brain/Head without Contrasto n 11-09-2024 Brain/Head without Contrast [facility] Imaging Services [address] [place] [address] Brain/Head without Contrast MR#: [id number] Acct: [id number] Name: ALEX ROJO Rep #: [id number] : 1975 M 49 From: Dirk Carmona MD PCP: Lidia Rizvi MD Status: PRE ER Study: Brain/Head without Contrast Date of Exam: 10/16 01/08 Exam# [id number] Ordering Dr: Jami Gabriel DO EXAM: CT [...] Mild small vessel ischemic/degenerative changes. Reading Location: [facility] CC: Lidia Rizvi MD; Dr. Jami Gabriel DO Shipping Clerk/Admin: Signed Normal [facility] CBC W/Diff, Automatedon 04-2 OVALOCYTE 1+ Normal [facility] Comment on above: Performed By: #### L 503.5510, L500.3400, L500.2500, L100.0100 #### [facility] Laboratory [address] [place], [address] PLT EST MOD DEC Normal ADEQ [facility] Comment on above: Performed By: #### L 503.5510, L500.3400, L500.2500, L100.0100 #### [facility] Laboratory [address] [place], [address] POLYCHROMASIA 1+ Normal [facility] Comment on above: Performed By: #### L 503.5510, L500.3400, L500.2500, L100.0100 #### [facility] Laboratory [address] [place], [address] Chest 1 View (Portable)on Chest 1 View (Portable) [facility] Imaging Services [address] [place] [address] Chest 1 View (Portable) MR#: [id number] Acct: [id number] Name: ALEX ROJO Rep #: [id number] : 1975 M 49 From: Dirk Carmona MD PCP: Lidia Rizvi MD Status: PRE ER Study: Chest 1 View (Portable) Date of Exam: 11/09/24 Exam# [id number] Ordering Dr: Jami Gabriel DO EXAM: XR Chest, 1 View CLINICAL INDICATION: CONFUSION TECHNIQUE: Frontal view of the chest. COMPARISON: No relevant prior studies available. FINDINGS: LUNGS AND PLEURAL SPACES: Unremarkable. No consolidation. No pneumothorax. HEART: Unremarkable. No cardiomegaly. MEDIASTINUM: Unremarkable. Normal mediastinal contour. BONES/JOINTS: Unremarkable. No acute fracture. RAD/Chest 1 View (Portable) IMPRESSION: No acute cardiopulmonary process. Reading Location: [facility] CC: Lidia Rizvi MD; Dr. Jami Gabriel DO Shipping Clerk/Admin: Signed Normal [facility] Emergency Department Summary on 11-09-2024 Emergency Department Summary [facility] Medical Records Department [address] [place] [address] Emergency Department Summary 11/09/24 MR#: [id number] Acct: [id number] Name: ALEX ROJO Rep #: [id number] : 1975 49 From: Jami Gabriel DO PCP: Lidia Rizvi MD Status:DEP ER Location: ED HPI History [...] other complaints or concerns at this time. [facility] Medical History Former tobacco use History of [...] surgery Social History housing: homeless current occupation: [employer] Smoking Status: Current every day smoker tobacco [...] Vital Signs: (more content not included)... Normal [facility] Liver Profileon 11-09-2024 Albumin [Mass/Vol] 3.4 g/dL Low 3.5-5.0 [facility] Comment on above: Performed By: #### L 503.5510, L500.3400, L500.2500, L100.0100 #### [facility] Laboratory [address] [place], [address] ALK PHOS 212 U/L High 40-129 [facility] Comment on above: Performed By: #### L 503.5510, L500.3400, L500.2500, L100.0100 #### [facility] Laboratory [address] [place], [address] ALT [Catalytic activity/Vol] 31 U/L Normal <=46 [facility] Comment on above: Performed By: #### L 503.5510, L500.3400, L500.2500, L100.0100 #### [facility] Laboratory [address] [place], [address] AST [Catalytic activity/Vol] 60 U/L High <=37 [facility] Comment on above: Performed By: #### L 503.5510, L500.3400, L500.2500, L100.0100 #### [facility] Laboratory [address] [place], [address] Bilirubin [Mass/Vol] 2.19 mg/dL High 0.00-1.30 [facility] Comment on above: Performed By: #### L 503.5510, L500.3400, L500.2500, L100.0100 #### [facility] Laboratory [address] [place], [address] Bilirubin.direct [Mass/Vol] 1.11 mg/dL High 0.00-0.30 [facility] Comment on above: Performed By: #### L 503.5510, L500.3400, L500.2500, L100.0100 #### [facility] Laboratory [address] [place], [address] Globulin (S) [Mass/Vol] 3.3 g/dL Normal 2.2-4.2 [facility] Comment on above: Performed By: #### L 503.5510, L500.3400, L500.2500, L100.0100 #### [facility] Laboratory [address] [place], [address] T PROT 6.7 g/dL Normal 5.9-8.4 [facility] Comment on above: Performed By: #### L 503.5510, L500.3400, L500.2500, L100.0100 #### [facility] Laboratory [address] [place], [address] Urinalysis, Completeon 11-09 WBC 0-5 SEEN Normal 0-5 [facility] Comment on above: Order Comment: CLEAN CATCH Performed By: #### L 503.5510, L500.4050, L100.0100 #### [facility] Laboratory [address] [place], [address] BACTERIA 0 SEEN Normal None Seen [facility] Comment on above: Order Comment: CLEAN CATCH Performed By: #### L 503.5510, L500.4050, L100.0100 #### [facility] Laboratory [address] [place], [address] EPI,SQUAMOUS 0 SEEN Normal 0-5 [facility] Comment on above: Order Comment: CLEAN CATCH Performed By: #### L 503.5510, L500.4050, L100.0100 #### [facility] Laboratory [address] [place], [address] Mucus Ql (Urine sed) 0 SEEN Normal [facility] Comment on above: Order Comment: CLEAN CATCH Performed By: #### L 503.5510, L500.4050, L100.0100 #### [facility] Laboratory [address] [place], [address] RBC 0 SEEN Normal 0-5 [facility] Comment on above: Order Comment: CLEAN CATCH Performed By: #### L 503.5510, L500.4050, L100.0100 #### [facility] Laboratory [address] [place], [address] .Urinalysis Microscopic (AO) on 11-03-2024 UA Hyal Cast 0-5 Abnormal [facility] Comment on above: Performed By: #### U AMICABernardo, UA ####[address] [address] UA Mucous 1+ /hpf Normal [facility] Comment on above: Performed By: #### U AMICAO, UA ####[address] [place], [place] [address] UA RBC 0-5 Abnormal None Seen [facility] Comment on above: Performed By: #### U AMICAO, UA ####[address] [place], [place] [address] UA Squam Epithelial 0-5 Abnormal None Seen [facility] Comment on above: Performed By: #### U AMICAO, UA ####[address] [place], [place] [address] UA WBC None Seen Normal None Seen [facility] Comment on above: Performed By: #### U AMICAO, UA ####[address] [place], [place] [address] UAon 11-03-2024 Color (U) [place] Abnormal [facility] Comment on above: Performed By: #### U AMICAO, UA ####[address] [place], [place] [address] Glucose (U) [Mass/Vol] Negative Normal Negative [facility] Comment on above: Performed By: #### U AMICAO, UA ####[address] [place], [place] [address] Ketones Ql (U) Negative Normal Negative [facility] Comment on above: Performed By: #### U AMICAO, UA ####[address] [place], [place] [address] UA Appear Clear Normal Clear [facility] Comment on above: Performed By: #### U AMICAO, UA ####[address] [place], [place] [address] UA Bili Small Abnormal Negative [facility] Comment on above: Performed By: #### U AMICAO, UA ####[address] [place], [place] [address] UA Blood Negative Normal Negative [facility] Comment on above: Performed By: #### U AMICAO, UA ####[address] [place], [place] [address] UA Leuk Est Negative Normal Negative [facility] Comment on above: Performed By: #### U AMICAO, UA ####[address] [place], [place] [address] UA Nitrite Negative Normal Negative [facility] Comment on above: Performed By: #### U AMICAO, UA ####[address] [place] [address] UA pH 6.5 Normal 5.0 - 8.0 [facility] Comment on above: Performed By: #### U AMICAO, UA ####[address] [place] [address] UA Protein Trace Normal Negative [facility] Comment on above: Performed By: #### U AMICAO, UA ####[address] [place] [address] UA Spec Grav 1.015 Normal 1.015-1.025 [facility] Comment on above: Performed By: #### U AMICAO, UA ####[address] [place] [address] UA Specimen Type Clean Catch Normal [facility] Comment on above: Performed By: #### U AMICAO, UA ####[address] [place] [address] UA Urobilinogen 4.0 E.U./dL Abnormal 0.2-1.0 [facility] Comment on above: Performed By: #### U AMICAO, UA ####[address] [place] [address] XR CHEST 2 VIEWSon XR CHEST 2 VIEWS ORIGINAL EXAMINATION: TWO XRAY VIEWS OF THE CHEST 11/02/2024 11:47 pm COMPARISON: None. HISTORY: ORDERING SYSTEM PROVIDED HISTORY: Reason for Exam: Pt sent from [facility] d/t multiple falls today. Pt states he [...] 11/03/2024 12:03:38 AM Ordering Provider: FREDERICK Wilkerson [facility] .Auto Diffon 11-02-2024 Basophil, Absolute 0.0 10 3/mcL Normal 0.0-0.3 [facility] Comment on above: Performed By: #### C MP, MDW, GFR, CBC, ADIFF, ANEU, AMM ####[facility] [place], [place] [address] Basophils/100 WBC (Bld) 0.7 % Normal 0.0-2.5 [facility] Comment on above: Performed By: #### C MP, MDW, GFR, CBC, ADIFF, ANEU, AMM ####[place] [address] [place], [place] [address] Eosinophil, Absolute 0.2 10 3/mcL Normal 0.0-0.7 [facility] Comment on above: Performed By: #### C MP, MDW, GFR, CBC, ADIFF, ANEU, AMM ####[facility] [place], [place] [address] Eosinophils/100 WBC (Bld) 3.6 % Normal 0.0-6.0 [facility] Comment on above: Performed By: #### C MP, MDW, GFR, CBC, ADIFF, ANEU, AMM ####[facility] [place], [place] [address] Lymphocyte, Absolute 1.5 10 3/mcL Normal 0.9-4.3 [facility] Comment on above: Performed By: #### C MP, MDW, GFR, CBC, ADIFF, ANEU, AMM ####[facility] [place], [place] [address] Lymphocytes/100 WBC (Bld) 30.2 % Normal 20.0-40.0 [facility] Comment on above: Performed By: #### C MAGY MONTIEL, GFR, CBC, ADIFF, ANEU, AMM ####[address] [place], [place] [address] Monocyte, Absolute 0.5 10 3/mcL Normal 0.1-1.4 [facility] Comment on above: Performed By: #### C DINESH, W, GFR, CBC, ADIFF, ANEU, AMM ####[address] [place], [place] [address] Monocytes/100 WBC (Bld) 9.2 % Normal 2.0-13.0 [facility] Comment on above: Performed By: #### C DINESH, MAGY, GFR, CBC, ADIFF, ANEU, AMM ####[address] [place], [place] [address] Neutrophils/100 WBC (Bld) 56.3 % Normal 50.0-75.0 [facility] Comment on above: Performed By: #### C MAGY MONTIEL, GFR, CBC, ADIFF, ANEU, AMM ####[address] [place], [place] [address] .GFRon 11-02-2024 Estimated Glomerular Filtration Rate 86 ml/min/1.73sqm Normal [facility] Comment on above: Result Comment: Stages of [...] the eGFR results. Performed By: #### C DINESH, W, GFR, CBC, ADIFF, ANEU, AMM ####[address] [place], [place] [address] .MDWon 11-02-2024 Monocyte Distribution Width 19.59 Normal 0.00-20.00 [facility] Comment on above: Result Comment: For ED adult patients suspected of sepsis, MDW<=20.0 does not rule out sepsis or risk of sepsis Performed By: #### C DINESH, W, GFR, CBC, ADIFF, ANEU, AMM ####[facility] [place], [place] [address] .NEUABSon 11-02-2024 Neutrophil, Absolute 2.8 10 3/mcL Normal 2.3-8.1 [facility] Comment on above: Performed By: #### C DINESH, W, GFR, CBC, ADIFF, ANEU, AMM ####[facility] [place], [place] [address] Onel 11-02-2024 Ammonia (P) [Moles/Vol] 114 umol/L High 11-32 [facility] Comment on above: Performed By: #### C DINESH, W, GFR, CBC, ADIFF, ANEU, AMM ####[facility] [place], [place] [address] Ammoniaon 11-02-2024 Ammonia (P) [Moles/Vol] 138.0 umol/L High 16-60 [facility] Comment on above: Performed By: #### L 503.5510, L500.4050, L100.0100 #### [facility] Laboratory [address] [place], [address] Basic Metabolic Profile (BMP )on 11-02-2024 BUN/CRE 12.9 RATIO Normal 10-20 [facility] Comment on above: Performed By: #### L 503.5510, L500.4050, L100.0100 #### [facility] Laboratory [address] [place], [address] Calcium [Mass/Vol] 8.6 mg/dL Normal 7.6-11.0 [facility] Comment on above: Performed By: #### L 503.5510, L500.4050, L100.0100 #### [facility] Laboratory [address] [place], [address] Chloride [Moles/Vol] 105 mmol/L Normal 98-108 [facility] Comment on above: Performed By: #### L 503.5510, L500.4050, L100.0100 #### [facility] Laboratory [address] [place], [address] CO2 [Moles/Vol] 21.3 mmol/L Normal 21.0-32.0 [facility] Comment on above: Performed By: #### L 503.5510, L500.4050, L100.0100 #### [facility] Laboratory [address] [place], [address] Creatinine [Mass/Vol] 0.91 mg/dL Normal 0.70-1.20 [facility] Comment on above: Performed By: #### L 503.5510, L500.4050, L100.0100 #### [facility] Laboratory [address] [place], [address] ECRCL 108.93 ml/min Normal 50-250 [facility] Comment on above: Performed By: #### L 503.5510, L500.4050, L100.0100 #### [facility] Laboratory [address] [place], [address] GAP 11 Normal 5-15 [facility] Comment on above: Performed By: #### L 503.5510, L500.4050, L100.0100 #### [facility] Laboratory [address] [place], [address] GFR/1.73 sq M.predicted among non-blacks MDRD (S/P/Bld) [Vol rate/Area] 102 mL/min/{1.73_m2} Normal >60 [facility] Comment on above: Result Comment: mL/m in/1.73m2 CKD-EPI Creatinine Equation (2020) Performed By: #### L 503.5510, L500.4050, L100.0100 #### [facility] Laboratory [address] [place], [address] Glucose [Mass/Vol] 92 mg/dL Normal 70-99 [facility] Comment on above: Performed By: #### L 503.5510, L500.4050, L100.0100 #### [facility] Laboratory [address] [place], [address] Potassium [Moles/Vol] 3.8 mmol/L Normal 3.3-5.1 [facility] Comment on above: Result Comment: Hemo lysis present, Results??could be affected. ?? Performed By: #### L 503.5510, L500.4050, L100.0100 #### [facility] Laboratory [address] [place], [address] Sodium [Moles/Vol] 137 mmol/L Normal 133-145 [facility] Comment on above: Performed By: #### L 503.5510, L500.4050, L100.0100 #### [facility] Laboratory [address] [place], [address] Urea nitrogen [Mass/Vol] 12 mg/dL Normal 4-19 [facility] Comment on above: Performed By: #### L 503.5510, L500.4050, L100.0100 #### [facility] Laboratory [address] [place], [address] CBCon 11-02-2024 Erythrocyte distribution width (RBC) [Ratio] 14.7 % Normal 11.5-15.5 [facility] Comment on above: Performed By: #### C MAGY MONTIEL, GFR, CBC, ADIFF, ANEU, AMM ####[address] [address] Hematocrit (Bld) [Volume fraction] 36.2 % Low 40.0-52.0 [facility] Comment on above: Performed By: #### C DINESH, MAGY, GFR, CBC, ADIFF, ANEU, AMM ####[place] [address] [place], [place] [address] Hgb 13.0 G/dL Normal 13.0-17.5 [facility] Comment on above: Performed By: #### C MAGY MONTIEL, GFR, CBC, ADIFF, ANEU, AMM ####[place] [address] [id number] MCH (RBC) [Entitic mass] 38.1 pg High 27.0-33.0 [facility] Comment on above: Performed By: #### C MAGY MONTIEL, GFR, CBC, ADIFF, ANEU, AMM ####[address] [place] [address] MCHC 36.0 G/dL Normal 32.0-36.0 [facility] Comment on above: Performed By: #### C MAGY MONTIEL, GFR, CBC, ADIFF, ANEU, AMM ####[place] [address] [place] [id number] MCV (RBC) [Entitic vol] 105.7 fL High 81.0-100.0 [facility] Comment on above: Performed By: #### C MAGY MONTIEL, GFR, CBC, ADIFF, ANEU, AMM ####[place] [address] [place] [id number] Platelet 91 10 3/mcL Low 150-450 [facility] Comment on above: Performed By: #### C MAGY MONTIEL, GFR, CBC, ADIFF, ANEU, AMM ####[place] [address] [place] [phone] Platelet mean volume (Bld) [Entitic vol] 7.4 fL Normal 6.4-10.5 [facility] Comment on above: Performed By: #### C MAGY MONTIEL, GFR, CBC, ADIFF, ANEU, AMM ####[place] [id number] [place] [id number] RBC 3.43 10 6/mcL Low 4.50-6.00 [facility] Comment on above: Performed By: #### C MAGY MONTIEL, GFR, CBC, ADIFF, ANEU, AMM ####[address] [place], [place] [address] WBC 5.0 10 3/mcL Normal 4.5-10.8 [facility] Comment on above: Performed By: #### C MAGY MONTIEL, GFR, CBC, ADIFF, ANEU, AMM ####[address] [place], [place] [address] CBC W/Diff, Automatedon 10-15 Platelets (Bld) [#/Vol] 89 10*3/uL Low 150-450 [facility] Comment on above: Performed By: #### L 503.5510, L500.4050, L100.0100 #### [facility] [address] [place] [address], [id number] CMPon 11-02-2024 Albumin Level 2.9 G/dL Low 3.5-5.0 [facility] Comment on above: Performed By: #### C MAGY MONTIEL, GFR, CBC, ADIFF, ANEU, AMM ####[address] [place], [place] [address] Albumin/Globulin [Mass ratio] 0.8 {ratio} Low 1.1-2.5 [facility] Comment on above: Performed By: #### C MAGY MONTIEL, GFR, CBC, ADIFF, ANEU, AMM ####[address] [place], [place] [address] ALP [Catalytic activity/Vol] 177 U/L High 40-135 [facility] Comment on above: Performed By: #### C MAGY MONTIEL, GFR, CBC, ADIFF, ANEU, AMM ####[address] [place], [place] [address] ALT [Catalytic activity/Vol] 52 U/L Normal 16-63 [facility] Comment on above: Performed By: #### C MP, MDW, GFR, CBC, ADIFF, ANEU, AMM ####[facility] [place], [place] [address] AST [Catalytic activity/Vol] 75 U/L High 10-40 [facility] Comment on above: Performed By: #### C MAGY MONTIEL, GFR, CBC, ADIFF, ANEU, AMM ####[facility] [place], [place] [address] Bili Total 2.8 mg/dL High 0.2-1.0 [facility] Comment on above: Result Comment: Use of this assay is not recommended for patients undergoing treatment with eltrombopag due to the potential for falsely elevated results. Performed By: #### C MAGY MONTIEL, GFR, CBC, ADIFF, ANEU, AMM ####[place] [address] [place], [place] [address] BUN/Creatinine Ratio 14 ratio Normal 7-27 [facility] Comment on above: Performed By: #### C MAGY MONTIEL, GFR, CBC, ADIFF, ANEU, AMM ####[facility] [place], [place] [address] Calcium [Mass/Vol] 8.3 mg/dL Low 8.4-10.2 [facility] Comment on above: Performed By: #### C MAGY MONTIEL, GFR, CBC, ADIFF, ANEU, AMM ####[facility] [place], [place] [address] Chloride [Moles/Vol] 107 mmol/L Normal 98-107 [facility] Comment on above: Performed By: #### C MAGY MONTIEL, GFR, CBC, ADIFF, ANEU, AMM ####[facility] [place], [place] [address] CO2 [Moles/Vol] 29 mmol/L Normal 22-29 [facility] Comment on above: Performed By: #### C MAGY MONTIEL, GFR, CBC, ADIFF, ANEU, AMM ####[facility] [place], [place] [address] Creatinine [Mass/Vol] 1.05 mg/dL Normal 0.70-1.30 [facility] Comment on above: Result Comment: Test ing performed on Siemens Dimension EXL analyzer using a modified kinetic Nathan technique. Performed By: #### C MAGY MONTIEL, GFR, CBC, ADIFF, ANEU, AMM ####[address] [place], [place] [address] Electrolyte Balance 4.0 mEq/L Normal 4.0-15.0 [facility] Comment on above: Performed By: #### C MAGY MONTIEL, GFR, CBC, ADIFF, ANEU, AMM ####[address] [place], [place] [address] Globulin 3.8 G/dL Normal 1.5-3.8 [facility] Comment on above: Performed By: #### C MAGY MONTIEL, GFR, CBC, ADIFF, ANEU, AMM ####[address] [place], [place] [address] Glucose [Mass/Vol] 126 mg/dL High 70-105 [facility] Comment on above: Performed By: #### C MAGY MONTIEL, GFR, CBC, ADIFF, ANEU, AMM ####[address] [place], [place] [address] Potassium [Moles/Vol] 3.4 mmol/L Low 3.5-5.1 [facility] Comment on above: Performed By: #### C MAGY MONTIEL, GFR, CBC, ADIFF, ANEU, AMM ####[address] [place], [place] [address] Sodium [Moles/Vol] 140 mmol/L Normal 136-145 [facility] Comment on above: Performed By: #### C MAGY MONTIEL, GFR, CBC, ADIFF, ANEU, AMM ####[address] [place], [place] [address] Total Protein 6.7 G/dL Normal 6.4-8.2 [facility] Comment on above: Performed By: #### C MAGY MONTIEL, GFR, CBC, ADIFF, ANEU, AMM ####[address] [place], [place] [address] Urea nitrogen [Mass/Vol] 15 mg/dL Normal 7-18 [facility] Comment on above: Performed By: #### C MAGY MONTIEL, GFR, CBC, ADIFF, ANEU, AMM ####[address] [place], [place] [address] Emergency Department Summary on 11-02-2024 Emergency Department Summary [facility] Medical Records Department [address] [place] [address] Emergency Department Summary 11/02/24 MR#: [id number] Acct: [id number] Name: ALEX ROJO Rep #: [id number] : 1975 49 From: Min Butt DO PCP: Lidia Rizvi MD Status:REG ER Location: ED HPI History [...] checked secondary to his history of cirrhosis. [facility] Medical History Former tobacco use History of [...] Normal Respi (more content not included)... Normal [facility] Liver Profileon 11-02-2024 Albumin [Mass/Vol] 3.4 g/dL Low 3.5-5.0 [facility] Comment on above: Performed By: #### L 503.5510, L500.4050, L100.0100 #### [facility] [address] [place], [address] ALK PHOS 144 U/L High 40-129 [facility] Comment on above: Performed By: #### L 503.5510, L500.4050, L100.0100 #### [facility] [address] [place], [address] ALT [Catalytic activity/Vol] 51 U/L High <=46 [facility] Comment on above: Performed By: #### L 503.5510, L500.4050, L100.0100 #### [facility] [address] [place], [address] AST [Catalytic activity/Vol] 94 U/L High <=37 [facility] Comment on above: Result Comment: Hemo lysis present, Results??could be affected. ?? Performed By: #### L 503.5510, L500.4050, L100.0100 #### [facility] [address] [place], [address] Bilirubin [Mass/Vol] 2.90 mg/dL High 0.00-1.30 [facility] Comment on above: Performed By: #### L 503.5510, L500.4050, L100.0100 #### [facility] [address] [place], [address] Bilirubin.direct [Mass/Vol] 1.13 mg/dL High 0.00-0.30 [facility] Comment on above: Result Comment: Hemo lysis present, Results??could be affected. ?? Performed By: #### L 503.5510, L500.4050, L100.0100 #### [facility] [address] [place], [address] Globulin (S) [Mass/Vol] 3.3 g/dL Normal 2.2-4.2 [facility] Comment on above: Performed By: #### L 503.5510, L500.4050, L100.0100 #### [facility] [address] [place], [address] T PROT 6.8 g/dL Normal 5.9-8.4 [facility] Comment on above: Performed By: #### L 503.5510, L500.4050, L100.0100 #### [facility] [address] [place], [address] Urinalysis, Completeon 11-02 BACTERIA 2+ /hpf Normal None Seen [facility] Comment on above: Order Comment: CLEAN CATCH Performed By: #### L 503.5510, L500.3400, L500.2500, L100.0100 #### [facility] [address] [place], [address] EPI,SQUAMOUS 0 SEEN Normal 0-5 [facility] Comment on above: Order Comment: CLEAN CATCH Performed By: #### L 503.5510, L500.3400, L500.2500, L100.0100 #### [facility] [address] [place], [address] Mucus Ql (Urine sed) 0 SEEN Normal [facility] Comment on above: Order Comment: CLEAN CATCH Performed By: #### L 503.5510, L500.3400, L500.2500, L100.0100 #### [facility] [address] [place], [address] RBC 0 SEEN Normal 0-5 [facility] Comment on above: Order Comment: CLEAN CATCH Performed By: #### L 503.5510, L500.3400, L500.2500, L100.0100 #### [facility] [address] [place], [address] WBC 0 SEEN Normal 0-[address] [place] [address] Comment on above: Order Comment: CLEAN CATCH Performed By: #### L 503.5510, L500.3400, L500.2500, L100.0100 #### [facility] [address] [place], [address] AFP, Tumor Markeron 10-26-19 25 AFP TUMOR DIRK 4.8 ng/mL Normal 0.0-6.9 [facility] Comment on above: Order Comment: N Result Comment: [facility] [employer] Electrochemiluminescence Immunoassay (ECLIA) Values obtained with different assay methods or kits cannot be used interchangeably. Results cannot be interpreted as absolute evidence of the presence or absence of malignant disease. This test is not interpretable in females. Performed at: [address] [id number] Graduate Fellow: Ciro Putnam PhD, Phone: [phone] Performed By: #### L 503.5510, L500.4050, L100.0100 #### [facility] [address] [place], [address] Hepatitis Panel Acuteon 10-15 COMMENT Comment Normal . [facility] Comment on above: Result Comment: Not infected with HCV unless early or acute infection is suspected (which may be delayed in an immunocompromised individual), or other evidence exists to indicate HCV infection. Performed By: #### L 503.5510, L500.4050, L100.0100 #### [facility] [address] [place], [address] HEP B CORE,IgM Negative Normal Negative [facility] Comment on above: Performed By: #### L 503.5510, L500.4050, L100.0100 #### [facility] [address] [place], [address] HEP B SURF AG Negative Normal Negative [facility] Comment on above: Performed By: #### L 503.5510, L500.4050, L100.0100 #### [facility] [address] [place], [address] HEP C VIRUS AB Non-Reactive Normal Non Reactive [facility] Comment on above: Performed By: #### L 503.5510, L500.4050, L100.0100 #### [facility] [address] [place], [address] HEPATITIS A-IgM Negative Normal Negative [facility] Comment on above: Result Comment: A ne gative anti-HAV IgM result suggests no recent or current HAV infection. Performed By: #### L 503.5510, L500.4050, L100.0100 #### [facility] [address] [place], [address] Ammoniaon 10-24-2024 Ammonia (P) [Moles/Vol] 185.0 umol/L High 16-60 [facility] Comment on above: Performed By: #### L 501.9985, L3300.0700, L500.4100, L3000.0375, L100.0100, L3890.6202, L503.5510, L500.4050, L501.6710, L300.3900, L504.2610 #### [facility] [address] [place], [address] CBC W/Diff, Automatedon 04-1 0-2025 Absolute Lymph 0.84 X10 3/uL Normal 0.83-4.51 [facility] Comment on above: Performed By: #### L 501.9985, L3300.0700, L500.4100, L3000.0375, L100.0100, L3890.6202, L503.5510, L500.4050, L501.6710, L300.3900, L504.2610 #### [facility] [address] [place], [place], [id number] Absolute Neut 2.4 X10 3/uL Normal 2.0-7.7 [facility] Comment on above: Performed By: #### L 501.9985, L3300.0700, L500.4100, L3000.0375, L100.0100, L3890.6202, L503.5510, L500.4050, L501.6710, L300.3900, L504.2610 #### [facility] [address] [place], [place], [id number] Basophils/100 WBC (Bld) 0.6 % Normal 0-1 [facility] Comment on above: Performed By: #### L 501.9985, L3300.0700, L500.4100, L3000.0375, L100.0100, L3890.6202, L503.5510, L500.4050, L501.6710, L300.3900, L504.2610 #### [facility] [address] [place], [place], [phone] (671) Eosinophils/100 WBC (Bld) 1.4 % Normal 0-5 [facility] Comment on above: Performed By: #### L 501.9985, L3300.0700, L500.4100, L3000.0375, L100.0100, L3890.6202, L503.5510, L500.4050, L501.6710, L300.3900, L504.2610 #### [facility] [address] [place], [address] (907) Erythrocyte distribution width (RBC) [Ratio] 14.9 % High 11.6-14.6 [facility] Comment on above: Performed By: #### L 501.9985, L3300.0700, L500.4100, L3000.0375, L100.0100, L3890.6202, L503.5510, L500.4050, L501.6710, L300.3900, L504.2610 #### [facility] [address] [place], [address] Hematocrit (Bld) [Volume fraction] 36.1 % Low 40-54 [facility] Comment on above: Performed By: #### L 501.9985, L3300.0700, L500.4100, L3000.0375, L100.0100, L3890.6202, L503.5510, L500.4050, L501.6710, L300.3900, L504.2610 #### [facility] [address] [place], [address] Hemoglobin (Bld) [Mass/Vol] 13.1 g/dL Normal 13.0-16.5 [facility] Comment on above: Performed By: #### L 501.9985, L3300.0700, L500.4100, L3000.0375, L100.0100, L3890.6202, L503.5510, L500.4050, L501.6710, L300.3900, L504.2610 #### [facility] [address] [facility], [address] IG% 0.300 Normal 0.0-0.9 [facility] Comment on above: Result Comment: IG% - Immature Granulocytes (promyelocytes, myelocytes and metamyelocytes) > 1% indicates that a LEFT SHIFT is Present. Performed By: #### L 501.9985, L3300.0700, L500.4100, L3000.0375, L100.0100, L3890.6202, L503.5510, L500.4050, L501.6710, L300.3900, L504.2610 #### [facility] [address] [facility], [address] Lymphocytes/100 WBC (Bld) 23.1 % Normal 19-41 [facility] Comment on above: Performed By: #### L 501.9985, L3300.0700, L500.4100, L3000.0375, L100.0100, L3890.6202, L503.5510, L500.4050, L501.6710, L300.3900, L504.2610 #### [facility] [address] [facility], [address] MCH (RBC) [Entitic mass] 37.1 pg High 27.0-32.0 [facility] Comment on above: Performed By: #### L 501.9985, L3300.0700, L500.4100, L3000.0375, L100.0100, L3890.6202, L503.5510, L500.4050, L501.6710, L300.3900, L504.2610 #### [facility] [address] [facility] [place], [address] MCHC (RBC) [Mass/Vol] 36.3 g/dL High 32-36 [facility] Comment on above: Performed By: #### L 501.9985, L3300.0700, L500.4100, L3000.0375, L100.0100, L3890.6202, L503.5510, L500.4050, L501.6710, L300.3900, L504.2610 #### [facility] [address] [place], [address] MCV (RBC) [Entitic vol] 102.3 fL High 80-94 [facility] Comment on above: Performed By: #### L 501.9985, L3300.0700, L500.4100, L3000.0375, L100.0100, L3890.6202, L503.5510, L500.4050, L501.6710, L300.3900, L504.2610 #### [facility] [address] [place], [address] Monocytes/100 WBC (Bld) 9.1 % Normal 0-10 [facility] Comment on above: Performed By: #### L 501.9985, L3300.0700, L500.4100, L3000.0375, L100.0100, L3890.6202, L503.5510, L500.4050, L501.6710, L300.3900, L504.2610 #### [facility] [address] [place], [address] Neutrophils/100 WBC (Bld) 65.5 % Normal 47-70 [facility] Comment on above: Performed By: #### L 501.9985, L3300.0700, L500.4100, L3000.0375, L100.0100, L3890.6202, L503.5510, L500.4050, L501.6710, L300.3900, L504.2610 #### [facility] [address] [place], [address] Nucleated RBC (Bld) [#/Vol] 0 10*3/uL Normal 0-5 [facility] Comment on above: Performed By: #### L 501.9985, L3300.0700, L500.4100, L3000.0375, L100.0100, L3890.6202, L503.5510, L500.4050, L501.6710, L300.3900, L504.2610 #### [facility] [address] [place], [address] (495) Platelet mean volume (Bld) [Entitic vol] 9.7 fL Normal 6.2-12.0 [facility] Comment on above: Performed By: #### L 501.9985, L3300.0700, L500.4100, L3000.0375, L100.0100, L3890.6202, L503.5510, L500.4050, L501.6710, L300.3900, L504.2610 #### [facility] [address] [place], [place], [phone] (704) Platelets (Bld) [#/Vol] 80 10*3/uL Low 150-450 [facility] Comment on above: Performed By: #### L 501.9985, L3300.0700, L500.4100, L3000.0375, L100.0100, L3890.6202, L503.5510, L500.4050, L501.6710, L300.3900, L504.2610 #### [facility] [address] [place], [place], [phone] (969) RBC (Bld) [#/Vol] 3.53 10*6/uL Low 4.6-6.2 [facility] Comment on above: Performed By: #### L 501.9985, L3300.0700, L500.4100, L3000.0375, L100.0100, L3890.6202, L503.5510, L500.4050, L501.6710, L300.3900, L504.2610 #### [facility] [address] [place], [address] RDW SD 56.4 fl High 35.1-43.9 [facility] Comment on above: Performed By: #### L 501.9985, L3300.0700, L500.4100, L3000.0375, L100.0100, L3890.6202, L503.5510, L500.4050, L501.6710, L300.3900, L504.2610 #### [facility] [address] [place], [address] WBC (Bld) [#/Vol] 3.6 10*3/uL Low 4.4-11.0 [facility] Comment on above: Performed By: #### L 501.9985, L3300.0700, L500.4100, L3000.0375, L100.0100, L3890.6202, L503.5510, L500.4050, L501.6710, L300.3900, L504.2610 #### [facility] [address] [place], [address] CRPon 10-24-2024 C-REACTIVE PROT < 3.00 Normal 0.0-3.0 [facility] Comment on above: Performed By: #### L 503.5510, L500.4050, L100.0100 #### [facility] [address] [place], [address] Comprehensive Metabolic Prof ilon 10-24-2024 Albumin [Mass/Vol] 3.7 g/dL Normal 3.5-5.0 [facility] Comment on above: Performed By: #### L 503.5510, L500.4050, L100.0100 #### [facility] [address] [place], [address] Albumin/Globulin [Mass ratio] 1.2 {ratio} Normal 0.9-2.4 [facility] Comment on above: Performed By: #### L 503.5510, L500.4050, L100.0100 #### [facility] [address] [place], [address] ALK PHOS 203 U/L High 40-129 [facility] Comment on above: Performed By: #### L 503.5510, L500.4050, L100.0100 #### [facility] [address] [place], [address] ALT [Catalytic activity/Vol] 84 U/L High <=46 [facility] Comment on above: Performed By: #### L 503.5510, L500.4050, L100.0100 #### [facility] [address] [place], [address] AST [Catalytic activity/Vol] 165 U/L High <=37 [facility] Comment on above: Performed By: #### L 503.5510, L500.4050, L100.0100 #### [facility] [address] [place], [address] Bilirubin [Mass/Vol] 2.65 mg/dL High 0.00-1.30 [facility] Comment on above: Performed By: #### L 503.5510, L500.4050, L100.0100 #### [facility] [address] [place], [address] BUN/CRE 13.1 RATIO Normal 10-20 [facility] Comment on above: Performed By: #### L 503.5510, L500.4050, L100.0100 #### [facility] [address] [place], [address] Calcium [Mass/Vol] 9.1 mg/dL Normal 7.6-11.0 [facility] Comment on above: Performed By: #### L 503.5510, L500.4050, L100.0100 #### [facility] [address] [place], [address] Chloride [Moles/Vol] 107 mmol/L Normal 98-108 [facility] Comment on above: Performed By: #### L 503.5510, L500.4050, L100.0100 #### [facility] [address] [place], [address] CO2 [Moles/Vol] 22.2 mmol/L Normal 21.0-32.0 [facility] Comment on above: Performed By: #### L 503.5510, L500.4050, L100.0100 #### [facility] [address] [place], [address] Creatinine [Mass/Vol] 0.84 mg/dL Normal 0.70-1.20 [facility] Comment on above: Performed By: #### L 503.5510, L500.4050, L100.0100 #### [facility] [address] [place], [address] GAP 11 Normal 5-15 [facility] Comment on above: Performed By: #### L 503.5510, L500.4050, L100.0100 #### [facility] [address] [place], [address] GFR/1.73 sq M.predicted among non-blacks MDRD (S/P/Bld) [Vol rate/Area] 106 mL/min/{1.73_m2} Normal >60 [facility] Comment on above: Result Comment: mL/m in/1.73m2 CKD-EPI Creatinine Equation (2020) Performed By: #### L 503.5510, L500.4050, L100.0100 #### [facility] [address] [place], [address] Globulin (S) [Mass/Vol] 3.2 g/dL Normal 2.2-4.2 [facility] Comment on above: Performed By: #### L 503.5510, L500.4050, L100.0100 #### [facility] [address] [place], [address] Glucose [Mass/Vol] 113 mg/dL High 70-99 [facility] Comment on above: Performed By: #### L 503.5510, L500.4050, L100.0100 #### [facility] [address] [place], [address] Potassium [Moles/Vol] 3.6 mmol/L Normal 3.3-5.1 [facility] Comment on above: Performed By: #### L 503.5510, L500.4050, L100.0100 #### [facility] [address] [place], [address] Sodium [Moles/Vol] 140 mmol/L Normal 133-145 [facility] Comment on above: Performed By: #### L 503.5510, L500.4050, L100.0100 #### [facility] [address] [place], [address] T PROT 6.8 g/dL Normal 5.9-8.4 [facility] Comment on above: Performed By: #### L 503.5510, L500.4050, L100.0100 #### [facility] [address] [place], [address] Urea nitrogen [Mass/Vol] 11 mg/dL Normal 4-19 [facility] Comment on above: Performed By: #### L 503.5510, L500.4050, L100.0100 #### [facility] [address] [place], [address] Gastroenterology Visit Repor ton 10-24-2024 Gastroenterology Visit Report [facility] [address] [place] [address] OFFICE VISIT Date of Service: 10/24/24 MR#: [id number] Acct: [id number] Name: ALEX ROJO Rep #: [id number] : 1975 Provider: Dr. 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 Previously established with speed runner Dr. Diana Abarca for alcoholic hepatitis without ascites, with coagulopathy and jaundice. He is pursuing transplant options through [facility] as they do not require COVID vaccination. Biochemical workup diagnosed DMII with A1c 7.2; elevated ammonia 117; multiple autoimmune tests abnormal and was referred to rheumatology. RUQ US and elastography 10.08.21 liver measures 12.8cm with mild perihepatic fluid and fatty infiltration of liver. Stiffness measures 39.8 kPa F4. Liver biopsy 10.11.21 consistent with cirrhosis with distortion of normal lobular architecture into multiple nodules; reactive hepatocyte changes; chronic inflammatory cell infiltrates; focal interface inflammation noted; mild increase of iron (1+); unremarkable reticular stain; no abnormal protein accumulation. EGD 5. (more content not included)... Normal [facility] Hemoglobin A1con 10-24-2024 HbA1c (Bld) [Mass fraction] 4.9 % Low <=5.6 [facility] Comment on above: Performed By: #### L 501.9985, L3300.0700, L500.4100, L3000.0375, L100.0100, L3890.6202, L503.5510, L500.4050, L501.6710, L300.3900, L504.2610 #### [facility] [address] [place], [place], [address] Hepatitis B Surface Antibody on 10-24-2024 HEP B Surf Ab Non-Reactive Normal [facility] Comment on above: Result Comment: <8.5 mIU/mL: Non-Reactive 8.5<= x <11.5 mIU/mL: Indeterminate >=11.5 mIU/mL: Reactive Non Reactive: Inconsistent with immunity less than <10 mIU/mL Reactive: Consistent with immunity greater than or equal to 10 mIU/mL Performed By: #### L 503.5510, L500.4050, L100.0100 #### [facility] [address] [place], [place], [id number] LDHon 10-24-2024 LDH 330 U/L High 87-241 [facility] Comment on above: Order Comment: 1 Performed By: #### L 503.5510, L500.4050, L100.0100 #### [facility] [address] [place], [address] Lipid Profileon 10-24-2024 CHOL:HDL 2.20 Normal [facility] Comment on above: Performed By: #### L 503.5510, L500.4050, L100.0100 #### [facility] [address] [place], [address] Cholesterol [Mass/Vol] 127 mg/dL Normal <=200 [facility] Comment on above: Result Comment: Chol esterol level, Desirable <200 mg/dL Borderline high cholesterol 200-239 mg/dL High cholesterol >=240 mg/dL Recommendations of the NCEP Adult Treatment Panel for the following risk-cutoff thresholds for the [place] population. Performed By: #### L 503.5510, L500.4050, L100.0100 #### [facility] [address] [place], [address] Cholesterol in HDL [Mass/Vol] 58 mg/dL Normal [facility] Comment on above: Result Comment: Tonya onal Cholesterol Education Program (NCEP) guidelines: <40 mg/dL: Low HDL-cholesterol (major risk factor for CHD) >= 60 mg/dL: High HDL-cholesterol (negative risk factor for CHD) HDL-cholesterol is affected by a number of factors, e.g. smoking, exercise, hormones, sex and age. Performed By: #### L 503.5510, L500.4050, L100.0100 #### [facility] [address] [place], [address] Cholesterol in LDL [Mass/Vol] 56 mg/dL Normal [facility] Comment on above: Result Comment: Bord lpibin=452-532 mg/dL Higher Zlbl=657 mg/dL or greater Performed By: #### L 503.5510, L500.4050, L100.0100 #### [facility] [address] [place], [address] Cholesterol in VLDL [Mass/Vol] 14 mg/dL Normal 5-40 [facility] Comment on above: Performed By: #### L 503.5510, L500.4050, L100.0100 #### [facility] [address] [place], [address] Triglyceride [Mass/Vol] 69 mg/dL Normal [facility] Comment on above: Result Comment: The drugs N-Acetylcysteine and Metamizole may falsely depress this assay. Normal range: <150 mg/dL Borderline High: 150-199 mg/dL High: 200-499 mg/dL Very High: >500 mg/dL Performed By: #### L 503.5510, L500.4050, L100.0100 #### [facility] [address] [place], [address] Prothrombin Time w/INRon INR Coag (PPP) [Relative time] 1.4 {INR} Normal [facility] Comment on above: Performed By: #### L 503.5510, L500.4050, L100.0100 #### [facility] [address] [place], [address] PT Coag (PPP) [Time] 17.9 s High 11.7-14.9 [facility] Comment on above: Performed By: #### L 503.5510, L500.4050, L100.0100 #### [facility] [address] [place], [address] CT HEAD OR BRAIN W/O CONTRAS Ton [...] 07/14/2024 3:29:19 AM Ordering Provider: WAQAS GARSIA [facility] CT SPINE CERVICAL W/O CONTRA STon [...] 07/14/2024 3:34:31 AM Ordering Provider: WAQAS GARSIA [facility] .GFRon 07-13-2024 GFR 76 ml/min/1.73sqm Normal [facility] Comment on above: Result Comment: GFR Population [...] 15 mL/min/1.73 square meters Performed By: #### G FR, PRO, PBNP, MORPH, CMP, DIFF, MDW, DIMER, CBC, APTT ####[place] [address] [place], [place] [address] GFR Non- 63 ml/min/1.73sqm Normal [facility] Comment on above: Result Comment: GFR Population [...] 15 mL/min/1.73 square meters Performed By: #### G FR, PRO, PBNP, MORPH, CMP, DIFF, MDW, DIMER, CBC, APTT ####[facility] [place], [place] [address] .MDWon 07-13-2024 Monocyte Distribution Width Not tested Normal 0.00-20.00 [facility] Comment on above: Result Comment: MDW testing unable to be performed on [id number] instrumentation. Performed By: #### G FR, PRO, PBNP, MORPH, CMP, DIFF, MDW, DIMER, CBC, APTT ####[address] [address] .Manual Diffon 07-13-2024 Basophil %, Manual 0.0 % Normal 0.0-2.5 [facility] Comment on above: Performed By: #### G FR, PRO, PBNP, MORPH, CMP, DIFF, MDW, DIMER, CBC, APTT #### [address] [address] Basophil, Abs Manual 0.0 10 3/mcL Normal 0.0-0.2 [facility] Comment on above: Performed By: #### G FR, PRO, PBNP, MORPH, CMP, DIFF, MDW, DIMER, CBC, APTT #### [address] [address] Eosinophil %, Manual 3.0 % Normal 0.0-7.0 [facility] Comment on above: Performed By: #### G FR, PRO, PBNP, MORPH, CMP, DIFF, MDW, DIMER, CBC, APTT #### [address] [address] Eosinophil, Abs Manual 0.1 10 3/mcL Normal 0.0-0.7 [facility] Comment on above: Performed By: #### G FR, PRO, PBNP, MORPH, CMP, DIFF, MDW, DIMER, CBC, APTT #### [address] [address] Lymphocyte %, Manual 23.0 % Normal 20.0-40.0 [facility] Comment on above: Performed By: #### G FR, PRO, PBNP, MORPH, CMP, DIFF, MDW, DIMER, CBC, APTT #### [address] [address] Lymphocyte, Abs Manual 1.0 10 3/mcL Normal 0.9-4.3 [facility] Comment on above: Performed By: #### G FR, PRO, PBNP, MORPH, CMP, DIFF, MDW, DIMER, CBC, APTT #### [address] [address] Monocyte %, Manual 11.0 % Normal 2.0-13.0 [facility] Comment on above: Performed By: #### G FR, PRO, PBNP, MORPH, CMP, DIFF, MDW, DIMER, CBC, APTT #### [address] [address] Monocyte, Abs Manual 0.5 10 3/mcL Normal 0.1-1.4 [facility] Comment on above: Performed By: #### G FR, PRO, PBNP, MORPH, CMP, DIFF, MDW, DIMER, CBC, APTT #### [address] [address] Neutrophil %, Manual 63.0 % Normal 50.0-75.0 [facility] Comment on above: Performed By: #### G FR, PRO, PBNP, MORPH, CMP, DIFF, MDW, DIMER, CBC, APTT #### [address] [address] Neutrophil, Abs Manual 2.7 10 3/mcL Normal 2.3-8.1 [facility] Comment on above: Performed By: #### G FR, PRO, PBNP, MORPH, CMP, DIFF, MDW, DIMER, CBC, APTT #### [address] [address] Nucleated RBC 0.0 /100 WBC Normal [facility] Comment on above: Performed By: #### G FR, PRO, PBNP, MORPH, CMP, DIFF, MDW, DIMER, CBC, APTT #### [place] [address] .Morphon 07-13-2024 Platelet Estimate Decreased Normal [facility] Comment on above: Performed By: #### G FR, PRO, PBNP, MORPH, CMP, DIFF, MDW, DIMER, CBC, APTT ####[place] [address] APTTon 07-13-2024 aPTT Coag (Bld) [Time] 39.7 s High 25.0-35.0 [facility] Comment on above: Result Comment: For Heparin anticoagulation therapy, the recommended therapeutic range is: 45.4-75.9 seconds. Patients on heparin therapy may have an extreme result. Performed By: #### G FR, PRO, PBNP, MORPH, CMP, DIFF, MDW, DIMER, CBC, APTT #### [place] [address] CBCon 07-13-2024 Erythrocyte distribution width (RBC) [Ratio] 12.9 % Normal 11.5-15.5 [facility] Comment on above: Performed By: #### G FR, PRO, PBNP, MORPH, CMP, DIFF, MDW, DIMER, CBC, APTT #### [place] [address] Hematocrit (Bld) [Volume fraction] 31.9 % Low 40.0-52.0 [facility] Comment on above: Performed By: #### G FR, PRO, PBNP, MORPH, CMP, DIFF, MDW, DIMER, CBC, APTT #### [place] [address] Hgb 11.2 G/dL Low 13.0-17.5 [facility] Comment on above: Performed By: #### G FR, PRO, PBNP, MORPH, CMP, DIFF, MDW, DIMER, CBC, APTT #### [place] [address] MCH (RBC) [Entitic mass] 38.5 pg High 27.0-33.0 [facility] Comment on above: Performed By: #### G FR, PRO, PBNP, MORPH, CMP, DIFF, MDW, DIMER, CBC, APTT #### [place] [address] MCHC 35.4 G/dL Normal 32.0-36.0 [facility] Comment on above: Performed By: #### G FR, PRO, PBNP, MORPH, CMP, DIFF, MDW, DIMER, CBC, APTT #### [address] [address] MCV (RBC) [Entitic vol] 109.0 fL High 81.0-100.0 [facility] Comment on above: Performed By: #### G FR, PRO, PBNP, MORPH, CMP, DIFF, MDW, DIMER, CBC, APTT #### [address] [address] Platelet 68 10 3/mcL Low 150-450 [facility] Comment on above: Performed By: #### G FR, PRO, PBNP, MORPH, CMP, DIFF, MDW, DIMER, CBC, APTT #### [address] [address] Platelet mean volume (Bld) [Entitic vol] 7.2 fL Normal 6.4-10.5 [facility] Comment on above: Performed By: #### G FR, PRO, PBNP, MORPH, CMP, DIFF, MDW, DIMER, CBC, APTT #### [address] [address] RBC 2.93 10 6/mcL Low 4.50-6.00 [facility] Comment on above: Performed By: #### G FR, PRO, PBNP, MORPH, CMP, DIFF, MDW, DIMER, CBC, APTT #### [address] [address] WBC 4.2 10 3/mcL Low 4.5-10.8 [facility] Comment on above: Performed By: #### G FR, PRO, PBNP, MORPH, CMP, DIFF, MDW, DIMER, CBC, APTT #### [address] [address] CMPon 07-13-2024 Albumin Level 2.5 G/dL Low 3.5-5.0 [facility] Comment on above: Performed By: #### G FR, PRO, PBNP, MORPH, CMP, DIFF, MDW, DIMER, CBC, APTT ####[address] [address] Albumin/Globulin [Mass ratio] 0.7 {ratio} Low 1.1-2.5 [facility] Comment on above: Performed By: #### G FR, PRO, PBNP, MORPH, CMP, DIFF, MDW, DIMER, CBC, APTT ####[facility] [place], [place] [address] ALP [Catalytic activity/Vol] 271 U/L High 40-135 [facility] Comment on above: Performed By: #### G FR, PRO, PBNP, MORPH, CMP, DIFF, MDW, DIMER, CBC, APTT ####[place] [address] [place] [phone] ALT [Catalytic activity/Vol] 32 U/L Normal 16-63 [facility] Comment on above: Performed By: #### G FR, PRO, PBNP, MORPH, CMP, DIFF, MDW, DIMER, CBC, APTT ####[place] [phone] AST [Catalytic activity/Vol] 66 U/L High 10-40 [facility] Comment on above: Performed By: #### G FR, PRO, PBNP, MORPH, CMP, DIFF, MDW, DIMER, CBC, APTT ####[place] [address] [place], [place] [address] Bili Total 1.6 mg/dL High 0.2-1.0 [facility] Comment on above: Result Comment: Use of this assay is not recommended for patients undergoing treatment with eltrombopag due to the potential for falsely elevated results. Performed By: #### G FR, PRO, PBNP, MORPH, CMP, DIFF, MDW, DIMER, CBC, APTT ####[place] [address] [place] [phone] BUN/Creatinine Ratio 11 ratio Normal 7-27 [facility] Comment on above: Performed By: #### G FR, PRO, PBNP, MORPH, CMP, DIFF, MDW, DIMER, CBC, APTT ####[place] [address] [place] [phone] Calcium [Mass/Vol] 8.7 mg/dL Normal 8.4-10.2 [facility] Comment on above: Performed By: #### G FR, PRO, PBNP, MORPH, CMP, DIFF, MDW, DIMER, CBC, APTT ####[place] [address] [place], [place] [address] Chloride [Moles/Vol] 106 mmol/L Normal 98-107 [facility] Comment on above: Performed By: #### G FR, PRO, PBNP, MORPH, CMP, DIFF, MDW, DIMER, CBC, APTT ####[place] [address] [place] [phone] CO2 [Moles/Vol] 31 mmol/L High 22-29 [facility] Comment on above: Performed By: #### G FR, PRO, PBNP, MORPH, CMP, DIFF, MDW, DIMER, CBC, APTT ####[place] [address] [place] [phone] Creatinine [Mass/Vol] 1.22 mg/dL Normal 0.70-1.30 [facility] Comment on above: Result Comment: Test ing performed on Siemens Dimension EXL analyzer using a modified kinetic Nathan technique. Performed By: #### G FR, PRO, PBNP, MORPH, CMP, DIFF, MDW, DIMER, CBC, APTT ####[place] [address] [place], [place] [address] Electrolyte Balance 5.0 mEq/L Normal 4.0-15.0 [facility] Comment on above: Performed By: #### G FR, PRO, PBNP, MORPH, CMP, DIFF, MDW, DIMER, CBC, APTT ####[place] [address] [place], [place] [address] Globulin 3.5 G/dL Normal [facility] Comment on above: Performed By: #### G FR, PRO, PBNP, MORPH, CMP, DIFF, MDW, DIMER, CBC, APTT ####[place] [address] [place] [phone] Glucose [Mass/Vol] 171 mg/dL High 70-105 [facility] Comment on above: Performed By: #### G FR, PRO, PBNP, MORPH, CMP, DIFF, MDW, DIMER, CBC, APTT ####[place] [address] [place], [place] [address] Potassium [Moles/Vol] 4.0 mmol/L Normal 3.5-5.1 [facility] Comment on above: Performed By: #### G FR, PRO, PBNP, MORPH, CMP, DIFF, MDW, DIMER, CBC, APTT ####[place] [address] [place], [place] [address] Sodium [Moles/Vol] 142 mmol/L Normal 136-145 [facility] Comment on above: Performed By: #### G FR, PRO, PBNP, MORPH, CMP, DIFF, MDW, DIMER, CBC, APTT ####[facility] [place], [place] [address] Total Protein 6.0 G/dL Low 6.4-8.2 [facility] Comment on above: Performed By: #### G FR, PRO, PBNP, MORPH, CMP, DIFF, MDW, DIMER, CBC, APTT ####[place] [address] [place] [phone] Urea nitrogen [Mass/Vol] 14 mg/dL Normal 7-18 [facility] Comment on above: Performed By: #### G FR, PRO, PBNP, MORPH, CMP, DIFF, MDW, DIMER, CBC, APTT ####[facility] [place], [place] [address] DIMERon 07-13-2024 D-Dimer <200 Normal 0-230 [facility] Comment on above: Result Comment: DDN: Results [...] and pulmonary embolism (PE). Performed By: #### G FR, PRO, PBNP, MORPH, CMP, DIFF, MDW, DIMER, CBC, APTT #### [place] [address] [place], [place] [address] LABORATORYOrdered By: SYSTEM SYSTEM on 07-13-2024 Albumin [...] Comment on above: Interpretive Data: Teo damon [employer] (CHEST, 1992, 102:312S-25S) [...] MDW testing unable to be performed on [id number] instrumentation. PBNPon 07-13-2024 Natriuretic peptide B (Bld) [Mass/Vol] 75 pg/mL Normal 0-125 [facility] Comment on above: Result Comment: NT-p roBNP results of less than 300 pg/mL effectively rules out acute congestive heart failure with 99% negative predictive value. Performed By: #### G FR, PRO, PBNP, MORPH, CMP, DIFF, MDW, DIMER, CBC, APTT #### [address] [address] PROon 07-13-2024 PT Coag (PPP) [Time] 16.4 s High 9.0-14.4 [facility] Comment on above: Performed By: #### G FR, PRO, PBNP, MORPH, CMP, DIFF, MDW, DIMER, CBC, APTT #### [address] [address] PT International Ratio 1.4 Normal [facility] Comment on above: Result Comment: [employer] (CHEST, 1992, 102:312S-25S) recommended therapeutic range for oral anticoagulant therapy is: LOW RISK: Prophylaxis of venous thrombosis INR: 2.0-3.0 Treatment of pulmonary embolism 2.0-3.0 Prevention of systemic embolism 2.0-3.0 HIGH RISK: Mechanical prosthetic valves 2.5-3.5 Performed By: #### G FR, PRO, PBNP, MORPH, CMP, DIFF, MDW, DIMER, CBC, APTT #### [place] [address] [place], [place] [address] AMMONIAon 05-20-2024 Ammonia (P) [Moles/Vol] 35.0 umol/L High 11.0 - 32.0 [facility] Comment on above: Performed By: #### 2 [address] #### [facility],[address] [place] [address] US ABD RIGHT UPPER QUADRANTo n 04-09-2024 [...] by bowel gas and therefore not evaluated. Shipping Clerk/Admin: PSCB Transcribe Date/Time: Apr 09 2024 10:29A Dictated by : YUDY CAMACHO MD This examination was interpreted and the report reviewed and electronically signed by: YUDY CAMACHO MD on Apr 09 2024 10:30AM EST [id number] Normal [facility] US Abdomen RUQon 04-09-2024 IMPRESSION: 1. Cirrhotic liver morphology. 2. Hepatofugal directionality of flow in the visualized main portal vein most compatible with portal hypertension. 3. Pancreas obscured by bowel gas and therefore not evaluated. Shipping Clerk/Admin: RIZWANA Transcribe Date/Time: Apr 09 2024 10:29A Dictated by : YUDY CAMACHO MD This examination was interpreted and the report reviewed and electronically signed by: YUDY CAMACHO MD on Apr 09 2024 10:30AM [facility] DIVISION OF RADIOLOGY * * *Final Report* [...] hydronephrosis. Ascites: None. DIVISION OF RADIOLOGY Provider, [facility] - 04/09/2024 * * *Final Report* * [...] by bowel gas and therefore not evaluated. Shipping Clerk/Admin: PSCB Transcribe Date/Time: Apr 09 2024 10:29A Dictated by : YUDY CAMACHO MD This examination was interpreted and the report reviewed and electronically signed by: YUDY CAMACHO MD on Apr 09 2024 10:30AM EST [facility] Radiology Study observation (narrative) [facility] US Abdomen RUQOrdered By: Vani anderson Provider on 04-09-2024 [facility] AFP SerPl-mCncon 01-30-2024 AFP [Mass/Vol] 5.4 ng/mL Normal <11.0 [facility] Comment on above: Order Comment: Speci men Type: BLOOD SPECIMENOrdering Facility: [facility] Address: [address] [place] [address] Result Comment: The Alpha-Fetoprotein test was performed using the Siemens Centaur XP chemiluminometric immunoassay method. Results obtained with different assay methods or kits cannot be used interchangeably. 4.99 The Alpha-Fetoprotein test was performed using the Michelle [employer] DxI immunoenzymatic assay. Results obtained with different assay methods or kits cannot be used interchangeably. Performed By: #### 1 834-1 ####[facility] LABCLIA [id number] [place] [address] [place] CBC panel Auto (Bld)on 01-29 Erythrocyte distribution width (RBC) [Ratio] 17.6 % High 11.5 - 15.0 % [facility] Hematocrit (Bld) [Volume fraction] 34.6 % Low 39.0 - 51.0 % [facility] Hemoglobin (Bld) [Mass/Vol] 11.7 g/dL Low 13.0 - 17.0 g/dL [facility] Interpretation and review of laboratory results Abnormal [facility] MCH (RBC) [Entitic mass] 34.5 pg High 26.0 - 34.0 pg [facility] MCHC (RBC) [Mass/Vol] 33.8 g/dL 30.5 - 36.0 g/dL [facility] MCV (RBC) [Entitic vol] 102.1 fL High 80.0 - 100.0 fL [facility] Nucleated RBC (Bld) [#/Vol] NINF [facility] Platelet mean volume (Bld) [Entitic vol] 10.5 fL 9.0 - 12.7 fL [facility] Platelets (Bld) [#/Vol] 67 10*3/uL Low [facility] Comment on above: No clot detected. RBC (Bld) [#/Vol] 3.39 10*6/uL Low 4.20 - 6.0 0 m/uL [facility] WBC (Bld) [#/Vol] 4.34 10*3/uL [facility] Erythrocyte distribution width (RBC) [Ratio] 17.6 % High 11.5-15.0 [facility] Comment on above: Order Comment: Speci men Type: BLOOD SPECIMENOrdering Facility: [facility] Address: [address] [place] [address] Performed By: #### 5 8410-2 ####[facility] [id number] [place] [address] [place] Hematocrit (Bld) [Volume fraction] 34.6 % Low 39.0-51.0 [facility] Comment on above: Order Comment: Speci men Type: BLOOD SPECIMENOrdering Facility: [facility] Address: [address] [place] [address] Performed By: #### 5 8410-2 ####[facility] LABIA [id number] [place] [address] [place] Hemoglobin (Bld) [Mass/Vol] 11.7 g/dL Low 13.0-17.0 [facility] Comment on above: Order Comment: Speci men Type: BLOOD SPECIMENOrdering Facility: [facility] Address: [address] [place] [address] Performed By: #### 5 8410-2 ####[facility] [id number] [place] [address] [place] MCH (RBC) [Entitic mass] 34.5 pg High 26.0-34.0 [facility] Comment on above: Order Comment: Speci men Type: BLOOD SPECIMENOrdering Facility: [facility] Address: [address] [place] [address] Performed By: #### 5 8410-2 ####[facility] [id number] [place] [address] [place] MCHC (RBC) [Mass/Vol] 33.8 g/dL Normal 30.5-36.0 [facility] Comment on above: Order Comment: Speci men Type: BLOOD SPECIMENOrdering Facility: [facility] Address: [address] [place] [address] Performed By: #### 5 8410-2 ####[facility] [id number] [place] [address] [place] MCV (RBC) [Entitic vol] 102.1 fL High 80.0-100.0 [facility] Comment on above: Order Comment: Speci men Type: BLOOD SPECIMENOrdering Facility: [facility] Address: [address] [place] [address] Performed By: #### 5 8410-2 ####[facility] [id number] [place] [address] [place] Nucleated RBC (Bld) [#/Vol] 10*3/uL Normal <0.01 [facility] Comment on above: Order Comment: Speci men Type: BLOOD SPECIMENOrdering Facility: [facility] Address: [address] [place] [address] Performed By: #### 5 8410-2 ####[facility] LABCLIA [id number] [place] [address] [place] Platelet mean volume (Bld) [Entitic vol] 10.5 fL Normal 9.0-12.7 [facility] Comment on above: Order Comment: Speci men Type: BLOOD SPECIMENOrdering Facility: [facility] Address: [address] [place] [address] Performed By: #### 5 8410-2 ####[facility] LABIA [id number] [place] [address] [place] Platelets (Bld) [#/Vol] 67 10*3/uL Low 150-400 [facility] Comment on above: Order Comment: Speci men Type: BLOOD SPECIMENOrdering Facility: [facility] Address: [address] [place] [address] Result Comment: No c lot detected. Performed By: #### 5 8410-2 ####[facility] LABIA [id number] [place] [address] [place] RBC (Bld) [#/Vol] 3.39 10*6/uL Low 4.20-6.00 [facility] Comment on above: Order Comment: Speci men Type: BLOOD SPECIMENOrdering Facility: [facility] Address: [address] [place] [address] Performed By: #### 5 8410-2 ####[facility] LABIA [id number] [place] [address] [place] WBC (Bld) [#/Vol] 4.34 10*3/uL Normal 3.70-11.00 [facility] Comment on above: Order Comment: Speci men Type: BLOOD SPECIMENOrdering Facility: [facility] Address: [address] [place] [address] Performed By: #### 5 8410-2 ####[facility] LABIA [id number] [address] [address] [place] [facility] CNOVon 01-30-2024 CNOV Office Visit (GASTA5 ) -------- ALEX ROJO ([id number]) 1975 M T Date Time Provider Department 01/30/24 2:30 PM [...] a long discussion with patient and his compounder flavorings (a caregiver at the nursing facility). Based [...] multi (more content not included)... Normal [facility] Comprehensive metabolic 2000 panelon 01-30-2024 Albumin [Mass/Vol] 3.4 g/dL Low 3.9-4.9 [facility] Comment on above: Order Comment: Speci men Type: BLOOD SPECIMENOrdering Facility: [facility] Address: [address] [place] [address] Performed By: #### 2 4323-8 ####[facility] LABCLIA [id number] [place] [address] [place] ALP [Catalytic activity/Vol] 251 U/L High 38-113 [facility] Comment on above: Order Comment: Speci men Type: BLOOD SPECIMENOrdering Facility: [facility] Address: [address] [place] [address] Performed By: #### 2 4323-8 ####[facility] LABCLIA [id number] [place] [address] [place] ALT [Catalytic activity/Vol] 28 U/L Normal 10-54 [facility] Comment on above: Order Comment: Speci men Type: BLOOD SPECIMENOrdering Facility: [facility] Address: [address] [place] [address] Performed By: #### 2 4323-8 ####[facility] LABCLIA [id number] [place] [address] [place] Anion gap [Moles/Vol] 11 mmol/L Normal 8-15 [facility] Comment on above: Order Comment: Speci men Type: BLOOD SPECIMENOrdering Facility: [facility] Address: [address] [place] [address] Performed By: #### 2 4323-8 ####[facility] LABCLIA [id number] [place] [id number] [place] AST [Catalytic activity/Vol] 67 U/L High 14-40 [facility] Comment on above: Order Comment: Speci men Type: BLOOD SPECIMENOrdering Facility: [facility] Address: [address] [place] [address] Performed By: #### 2 4323-8 ####[facility] LABCLIA [id number] [place] [address] [place] Bilirubin [Mass/Vol] 2.3 mg/dL High 0.2-1.3 [facility] Comment on above: Order Comment: Speci men Type: BLOOD SPECIMENOrdering Facility: [facility] Address: [address] [place] [address] Performed By: #### 2 4323-8 ####[facility] LABCLIA [id number] [place] [address] [place] Calcium [Mass/Vol] 8.7 mg/dL Normal 8.5-10.2 [facility] Comment on above: Order Comment: Speci men Type: BLOOD SPECIMENOrdering Facility: [facility] Address: [address] [place] [address] Performed By: #### 2 4323-8 ####[facility] LABCLIA [id number] [place] [address] [place] Chloride [Moles/Vol] 104 mmol/L Normal 98-107 [facility] Comment on above: Order Comment: Speci men Type: BLOOD SPECIMENOrdering Facility: [facility] Address: [address] [place] [address] Performed By: #### 2 4323-8 ####[facility] LABCLIA [id number] [place] [id number] [place] CO2 [Moles/Vol] 24 mmol/L Normal 22-30 [facility] Comment on above: Order Comment: Speci men Type: BLOOD SPECIMENOrdering Facility: [facility] Address: [address] [place] [address] Performed By: #### 2 4323-8 ####[facility] LABCLIA [id number] [place] [address] [place] Creatinine [Mass/Vol] 0.77 mg/dL Normal 0.73-1.22 [facility] Comment on above: Order Comment: Katherine kim Type: BLOOD SPECIMENOrdering Facility: [facility] Address: [address] [place] [address] Performed By: #### 2 4323-8 ####[facility] LABIA [id number] [place] [address] [place] Creatinine and Glomerular filtration rate.predicted panel (S/P/Bld) 110 mL/min/1.73m??? Normal >=60 [facility] Comment on above: Order Comment: Katherine kim Type: BLOOD SPECIMENOrdering Facility: [facility] Address: [address] [place] [address] Result Comment: Rabia mated Glomerular Filtration Rate [...] actual GFR. Performed By: #### 2 4323-8 ####[facility] LABCLIA [id number] [place] [address] [place] Glucose [Mass/Vol] 121 mg/dL High 74-99 [facility] Comment on above: Order Comment: Katherine kim Type: BLOOD SPECIMENOrdering Facility: [facility] Address: [address] [place] [address] Result Comment: The [place] [employer] Association (ADA) provides guidance for cutoff [...] Standards of Medical Care in Diabetes 2016, [place] [employer]. Diabetes Care. 2016.39(Suppl 1). Performed By: #### 2 4323-8 ####[facility] LABCLIA [id number] [address] [address] [place] Potassium [Moles/Vol] 3.5 mmol/L Low 3.7-5.1 [facility] Comment on above: Order Comment: Speci men Type: BLOOD SPECIMENOrdering Facility: [facility] Address: [address] [place] [address] Performed By: #### 2 4323-8 ####[facility] LABIA [id number] [place] [address] [place] Protein [Mass/Vol] 6.9 g/dL Normal 6.3-8.0 [facility] Comment on above: Order Comment: Speci men Type: BLOOD SPECIMENOrdering Facility: [facility] Address: [address] [place], [place] [address] Performed By: #### 2 4323-8 ####[facility] LABIA [id number] [place] [address] [place] Sodium [Moles/Vol] 139 mmol/L Normal 136-144 [facility] Comment on above: Order Comment: Speci men Type: BLOOD SPECIMENOrdering Facility: [facility] Address: [address] [place] [address] Performed By: #### 2 4323-8 ####[facility] LABCLIA [id number] [place] [id number] [place] Urea nitrogen [Mass/Vol] 9 mg/dL Normal 9-24 [facility] Comment on above: Order Comment: Speci men Type: BLOOD SPECIMENOrdering Facility: [facility] Address: [address] [place] [address] Performed By: #### 2 4323-8 ####[facility] LABCLIA [id number] [facility] [id number] [id number] [place] PT panel Coag (PPP)on 2023 INR Coag (PPP) [Relative time] 1.3 {INR} 0.9 - 1.3 [facility] Comment on above: Vitamin K Antagonist (VKA) Therapeutic Range: INR 2 to 3 (Target INR of 2.5) Note: For patients treated with VKA drugs, such as warfarin, the [place] [employer] 2012 Guideline recommends [...] Chest 2012, 141:7S-47S Jaylene RA, et al. JACC 2017, 70: 252-289 Interpretation and review of laboratory results Abnormal [facility] PT Coag (PPP) [Time] 13.9 s High [facility] INR Coag (PPP) [Relative time] 1.3 {INR} Normal 0.9-1.3 [facility] Comment on above: Order Comment: Speci men Type: BLOOD SPECIMENOrdering Facility: [facility] Address: [address] [place] [address] Result Comment: Karuna min K Antagonist (VKA) Therapeutic Range: INR 2 to 3 (Target INR of 2.5) Note: For patients treated with VKA drugs, such as warfarin, the [place] [employer]icians 2012 Guideline recommends [...] Chest 2012, 141:7S-47S Jaylene RA, et al. [facility] 2017, 70: 252-289 Performed By: #### 3 4528-0 ####[facility] [id number] [place] [address] [place] PT Coag (PPP) [Time] 13.9 s High 9.7-13.0 [facility] Comment on above: Order Comment: Speci men Type: BLOOD SPECIMENOrdering Facility: [facility] Address: [address] [place] [address] Performed By: #### 3 4528-0 ####[facility] [id number] [address] [place] CNOVon 01-01-2024 CNOV Office Visit (NEMOWS ) -------- ALEX ROJO ([id number]) [address] [facility] Date Time Provider Department 01/01/24 11:00 AM PITER GAINES JR During your visit today, we recorded the following information about you: Pulse Respiration Blood pressure Weight 94/minute 16/minute 126/68 77.9 kg Nan iWlson LPN 01/01/2024 11:58 AM Signed Piter Gaines [...] New Patient: Pt presented with transportation from [facility], reported ER visit [facility] for Hepatic concerns. and my final recommendations [...] was seen in ER in 06/2022 in [place], [place] and was told to see a [...] Patient was brought to the ED from [facility], they felt his condition was medical related [...] to sleep, was unable to engage with senior grant writer. Nursing reports he has been wandering but redirectable. He does deny SI and HI with senior grant writer. Unclear if he is having hallucinations. [...] and Info: - Contacted patient's mother Janine [phone] for collateral information. She reports that patient moved in with her and his father a couple of weeks ago. Patient was living with his and kid in [place]. Moved to [place] because he is on a liver transplant list and will be getting one soon through [facility]. Reports patient has a long history of [...] he is confused. She brought him to [facility] today because she cannot take care of him anymore and because he has been getting aggressive and she doesn't feel safe around him. She reports patient doesn't have a psychiatric history, that before the medical issues patient was a high functioning adult that had a job. No history of psychosis in the family. Contacted [facility] and spoke with intake correctional counselor/case manager Marquise. She reports patient was brought to their facility (more content not included)... Normal [facility] Ciara 10-03-2023 KORIN Telephone (SARAH) -------- ALEX ROJO ([id number]) 1975 M [facility] Date Time Provider Department 10/03/23 LIANA OVIEDO, PITER SMITH During your visit today, we recorded the following information about you: Kaleb West, RN 10/03/2023 12:25 PM Signed Henny- [facility] in [place]- reports she faxed a neurology referral [place] [facility] on 09[place]23- trying to get an appt with them for patient. Asking office to phone her and let her know if it was received, and if they can get an appt. 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 Left VM to return call. We did receive the referral however, it is all regarding his liver cirrhosis and not seizures. We can see him for the seizure, we just need more information. ANY Boss Jessica, LPN 10/04/2023 3:49 PM Signed Recevied fax with seizure information. Please call Henny at [phone] ext [phone] to make the appointment for [...] by NICOLLE MUÑOZ on 10/13/23 Normal [facility] EGD Study observation Narrat iveon 09-20-2023 [facility] HISTORY PHYSICALon HISTORY PHYSICAL HNO ID: [id number] Author: BARRINGTON TRAORE MD Service: Hepatology Author [...] 20, 2023 TIME: 10:43 AM Normal [facility] NURSING PROGon 09-20-2023 NURSING PROG HNO ID: [id number] Author: KENYA MEDINA RN Service: ? Author [...] None Electronically Signed By: Kenya Medina RN [facility] NURSING PROG HNO ID: [id number] Author: OSMIN FREEMAN RN Service: ? Author [...] By: Osmin Freeman RN In Department: GASTROENTEROLOGY [facility] Upper GI endoscopyon 024 Upper GI endoscopy A31 Gastrointestinal Endoscopy Patient Name: Alex Rojo Procedure Date: 09/20/2023 10:43 AM Date of : 1975 Admit Type: Outpatient Age: 48 Room: [place] [address] Gender: Male Note Status: Finalized Attending MD: Barrington Traore MD, [id number] Procedure: Upper GI endoscopy Indications: Esophageal varices [...] for surveillance. Procedure Code(s): --- Professional --- 44277, Esophagogastroduodenosco py, flexible, transoral; diagnostic, including collection of specimen(s) by brushing or washing, when performed (separate procedure) G0500, Moderate sedation services provided by the same physician or other qualified health care navigator performing a gastrointestinal endoscopic service that sedation supports, requiring the presence of an independent trained observer to assist in the monitoring of the patient's level of consciousness and physiological status; initial 15 minutes of intra-service time; patient age 5 years or older (additional time may be reported with 72094, as appropriate) CPT copyright 2020 [employer]. All rights reserved. The codes documented in this report are preliminary and upon plaque maker review may be revised to meet current compliance requirements. Attending Participation: I personally performed the entire procedure. Scope In: 11:15:40 AM Scope Out: 11:19:17 AM MD Barrington Carballo MD 09/20/2023 11:23:05 AM This report has been signed electronically by Barrington Traore MD Number of Addenda: 0 Note Initiated On: 09/20/2023 10:43 AM Normal [facility] CT LIVER W IVCONon 4 CT LIVER W IVCON * * *Final Report* * * DATE OF EXAM: Sep 19 2023 2:34PM [facility] [place] LIVER W IVCON / [...] disc disease is noted. Lower thorax: Unremarkable. Academic Coach (topogram) images: No additional findings. IMPRESSION: 1. Cirrhotic liver morphology with multiple sequelae of portal hypertension including a recanalized umbilical vein, upper abdominal varices and mild splenomegaly. There is no abdominal ascites. The portal veins are patent. 2. No liver mass identified. 3. New mild to moderate superior endplate compression deformity at L2 compared to the previous CT performed in November 2019. Shipping Clerk/Admin: RIZWANA Transcribe Date/Time: Sep 21 2023 11:47A Dictated by : TG LIAO MD This examination was interpreted and the report reviewed and electronically signed by: TG LIAO MD on Sep 21 2023 12:15PM EST [id number] [facility] 09-12-2023 [facility] Telephone (GAPRA3) -------- ALEX ROJO ([id number]) [address] [facility] Date Time Provider Department 09/12/23 ISAIAH LUIS During your visit today, we recorded the following information about you: Isaiah Luis RN 09/12/2023 1:23 PM Signed Unable to confirm appointment phone number given is a nursing facility left message with the assessment clinician to please call to confirm appointment. Allergies [...] Encounter Status:Closed by ISAIAH LUIS on 09/12/23 Normal [facility] CNOVon 08-29-2023 CNOV Office Visit (GASTA5 ) -------- ALEX ROJO ([id number]) [address] 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 He is known to have cirrhosis for 3 years and has been listed for OLT in [place], [place] where he lived at the time until he moved to [place] to a nursing facility few months ago. His MELD was about 18 but improved overtime and dropped to 12-13. He was also assessed at [facility] in [place]. He moved to [place] and would like to be listed here. [...] that the patient currently lives in a shelter and has an independent external guardian. The [...] and may have lived in a homeless fci. No immediate family members in [place] (all live in the [place] area) and I was not sure of the reason for which the patient moved here. PAST MEDICAL HISTORY DM Psych disorder of depression, anxiety and previous suicidal attempt (based on outside records). PAST SURGICAL HISTORY Scrotal surgery after injury as a bullard operator Broke his Jaw riding a scooter [...] 1 (more content not included)... Normal [facility] Ammoniaon 08-08-2023 Ammonia (P) [Moles/Vol] 89 umol/L High 16.0-60.0 [facility] Comment on above: Performed By: #### C MPX, CBCWD, PLCON #### [facility] [address] [place], [place] [id number] Graduate Fellow: Kemal Waterman MD Ammonia (P) [Moles/Vol] 89 umol/L High 16.0 - 60.0 umol/L [facility] Interpretation and review of laboratory results Abnormal [facility] Ammoniaon 08-07-2023 Ammonia (P) [Moles/Vol] 53 umol/L Normal 16.0-60.0 [facility] Comment on above: Performed By: #### C MPX, CBCWD, PLCON #### [place] [address] Graduate Fellow: Kemal Waterman MD Ammonia (P) [Moles/Vol] 53 umol/L 16.0 - 60.0 umol/L [facility] Ammoniaon 08-06-2023 Ammonia (P) [Moles/Vol] 41 umol/L Normal 16.0-60.0 [facility] Comment on above: Performed By: #### A MON #### [place] [address] Graduate Fellow: Kemal Waterman MD Ammonia (P) [Moles/Vol] 41 umol/L 16.0 - 60.0 umol/L [facility] Ammoniaon 08-05-2023 Ammonia (P) [Moles/Vol] 113 umol/L High 16.0-60.0 [facility] Comment on above: Performed By: #### A MON #### [place] [address] Graduate Fellow: Kemal Waterman MD Ammonia (P) [Moles/Vol] 113 umol/L High 16.0 - 60.0 umol/L [facility] Interpretation and review of laboratory results Abnormal [facility] Glucose,Whole Bloodon 2023 Glucose [Mass/Vol] 211 mg/dL High 74-99 [facility] POCT Glucoseon 08-05-2023 Glucose [Mass/Vol] 211 mg/dL High 74 - 99 mg/dL [facility] Interpretation and review of laboratory results Abnormal [facility] Ammoniaon 08-04-2023 Ammonia (P) [Moles/Vol] 74 umol/L High 16.0-60.0 [facility] Comment on above: Performed By: #### A MON #### [address] [address] Graduate Fellow: Kemal Waterman MD Ammonia (P) [Moles/Vol] 74 umol/L High 16.0 - 60.0 umol/L [facility] Interpretation and review of laboratory results Abnormal [facility] Ammoniaon 08-03-2023 Ammonia (P) [Moles/Vol] 50 umol/L Normal 16.0-60.0 [facility] Comment on above: Performed By: #### A MON #### [address] [address] Graduate Fellow: Kemal Waterman MD Ammonia (P) [Moles/Vol] 50 umol/L 16.0 - 60.0 umol/L [facility] CBC with Auto Differentialon 08-03-2023 Basophils (Bld) [#/Vol] 0.04 10*3/uL [facility] Basophils/100 WBC (Bld) 1 % 0.0 - 2.0 % [facility] Eosinophils (Bld) [#/Vol] 0.11 10*3/uL [facility] Eosinophils/100 WBC (Bld) 3 % 0 - 6 % [facility] Erythrocyte distribution width (RBC) [Ratio] 20.5 % High 11.5 - 15.0 % [facility] Hematocrit (Bld) [Volume fraction] 32.3 % Low 37.0 - 54.0 % [facility] Hemoglobin (Bld) [Mass/Vol] 10.6 g/dL Low 12.5 - 16.5 g/dL [facility] Interpretation and review of laboratory results Abnormal [employer] [facility] [employer] [employer] Lymphocytes/100 WBC (Bld) 16 % Low 20.0 - 42.0 % [facility] Lymphocytes/100 WBC (Bld) 0.69 % Low [facility] MCH (RBC) [Entitic mass] 32.1 pg 26.0 - 35.0 pg [facility] MCHC (RBC) [Mass/Vol] 32.8 g/dL 32.0 - 34.5 g/dL [facility] MCV (RBC) [Entitic vol] 97.9 fL 80.0 - 99.9 fL [facility] Monocytes/100 WBC (Bld) 13 % High 2.0 - 12.0 % [facility] Monocytes/100 WBC (Bld) 0.57 % [facility] Neutrophils/100 WBC (Bld) 68 % 43.0 - 80.0 % [facility] Platelet mean volume (Bld) [Entitic vol] 10.4 fL 7.0 - 12.0 fL [facility] Platelets (Bld) [#/Vol] 60 10*3/uL Low [facility] RBC (Bld) [#/Vol] 3.30 10*6/uL Low 3.80 - 5.8 0 m/uL [facility] RBC (Bld) [#/Vol] 3+ ANISOCYTOSIS [facility] RBC (Bld) [#/Vol] 1+ OVALOCYTES [facility] RBC (Bld) [#/Vol] 1+ POIKILOCYTOSIS [facility] RBC (Bld) [#/Vol] 1+ TARGET CELLS [facility] RBC (Bld) [#/Vol] 1+ TEARDROPS [facility] Segmented neutrophils/100 WBC (Bld) 2.98 % [facility] WBC other (Bld) [#/Vol] 4.4 Low [facility] CBC with Diffon 08-03-2023 Abs. Basophil 0.04 k/uL Normal 0.00-0.20 [facility] Comment on above: Performed By: #### A MON #### [facility] [address] [place], [place] [id number] Graduate Fellow: Kemal Waterman MD Abs.Neutrophil (Seg) 2.98 k/uL Normal 1.80-7.30 [facility] Comment on above: Performed By: #### A MON #### [address] [place] [address] Graduate Fellow: Kemal Waterman MD Basophils/100 WBC (Bld) 1 % Normal 0.0-2.0 [facility] Comment on above: Performed By: #### A MON #### [place] [address] Graduate Fellow: Kemal Waterman MD Eosinophils (Bld) [#/Vol] 0.11 10*3/uL Normal 0.05-0.50 [facility] Comment on above: Performed By: #### A MON #### [place] [address] Graduate Fellow: Kemal Waterman MD Eosinophils/100 WBC (Bld) 3 % Normal 0-6 [facility] Comment on above: Performed By: #### A MON #### [place] [address] Graduate Fellow: Kemal Waterman MD Lymphocytes (Bld) [#/Vol] 0.69 10*3/uL Low 1.50-4.00 [facility] Comment on above: Performed By: #### A MON #### [place] [address] Graduate Fellow: Kemal Waterman MD Lymphocytes/100 WBC (Bld) 16 % Low 20.0-42.0 [facility] Comment on above: Performed By: #### A MON #### [place] [address] Graduate Fellow: Kemal Waterman MD Monocytes (Bld) [#/Vol] 0.57 10*3/uL Normal 0.10-0.95 [facility] Comment on above: Performed By: #### A MON #### [place] [address] Graduate Fellow: Kemal Waterman MD Monocytes/100 WBC (Bld) 13 % High 2.0-12.0 [facility] Comment on above: Performed By: #### A MON #### [place] [address] Graduate Fellow: Kemal Waterman MD Neutrophil (Seg) 68 % Normal 43.0-80.0 [facility] Comment on above: Performed By: #### A MON #### [place] [address] Graduate Fellow: Kemal Waterman MD RBC morphology finding Nom (Bld) 3+ Normal [facility] Comment on above: Result Comment: ANIS OCYTOSIS 1+ OVALOCYTES 1+ POIKILOCYTOSIS 1+ TARGET CELLS 1+ TEARDROPS Performed By: #### A MON #### [place] [address] Graduate Fellow: Kemal Waterman MD Erythrocyte distribution width (RBC) [Ratio] 20.5 % High 11.5-15.0 [facility] Comment on above: Performed By: #### A MON #### [place] [address] Graduate Fellow: Kemal Waterman MD Hematocrit (Bld) [Volume fraction] 32.3 % Low 37.0-54.0 [facility] Comment on above: Performed By: #### A MON #### [place] [id number] Graduate Fellow: Kemal Waterman MD Hemoglobin (Bld) [Mass/Vol] 10.6 g/dL Low 12.5-16.5 [facility] Comment on above: Performed By: #### A MON #### [address] [address] Graduate Fellow: Kemal Waterman MD MCH (RBC) [Entitic mass] 32.1 pg Normal 26.0-35.0 [facility] Comment on above: Performed By: #### A MON #### [address] [address] Graduate Fellow: Kemal Waterman MD MCHC (RBC) [Mass/Vol] 32.8 g/dL Normal 32.0-34.5 [facility] Comment on above: Performed By: #### A MON #### [address] [address] Graduate Fellow: Kemal Waterman MD MCV (RBC) [Entitic vol] 97.9 fL Normal 80.0-99.9 [facility] Comment on above: Performed By: #### A MON #### [address] [address] Graduate Fellow: Kemal Waterman MD Platelet mean volume (Bld) [Entitic vol] 10.4 fL Normal 7.0-12.0 [facility] Comment on above: Performed By: #### A MON #### [place] [id number] Graduate Fellow: Kemal Waterman MD Platelets (Bld) [#/Vol] 60 10*3/uL Low 130-450 [facility] Comment on above: Performed By: #### A MON #### [address] [address] Graduate Fellow: Kemal Waterman MD RBC (Bld) [#/Vol] 3.30 10*6/uL Low 3.80-5.80 [facility] Comment on above: Performed By: #### A MON #### [address] [place] [address] Graduate Fellow: Kemal Waterman MD WBC (Bld) [#/Vol] 4.4 10*3/uL Low 4.5-11.5 [facility] Comment on above: Performed By: #### A MON #### [address] [address] Graduate Fellow: Kemal Waterman MD Comp Metabolic Pr/rfx MGon 0 - Albumin [Mass/Vol] 3.0 g/dL Low 3.5-5.2 [facility] Comment on above: Performed By: #### A MON #### [address] [place] [address] Graduate Fellow: Kemal Waterman MD Alkaline Phos 148 U/L High 40-129 [facility] Comment on above: Performed By: #### A MON #### [address] [place] [address] Graduate Fellow: Kemal Waterman MD ALT [Catalytic activity/Vol] 27 U/L Normal 0-40 [facility] Comment on above: Performed By: #### A MON #### [address] [address] Graduate Fellow: Kemal Waterman MD Anion gap [Moles/Vol] 11 mmol/L Normal 7-16 [facility] Comment on above: Performed By: #### A MON #### [address] [place] [address] Graduate Fellow: Kemal Waterman MD AST [Catalytic activity/Vol] 64 U/L High 0-39 [facility] Comment on above: Performed By: #### A MON #### [address] [address] Graduate Fellow: Kemal Waterman MD Bilirubin [Mass/Vol] 2.0 mg/dL High 0.0-1.2 [facility] Comment on above: Performed By: #### A MON #### [address] [address] Graduate Fellow: Kemal Waterman MD Calcium [Mass/Vol] 8.1 mg/dL Low 8.6-10.2 [facility] Comment on above: Performed By: #### A MON #### [address] [address] Graduate Fellow: Kemal Waterman MD Chloride [Moles/Vol] 106 mmol/L Normal 98-107 [facility] Comment on above: Performed By: #### A MON #### [address] [address] Graduate Fellow: Kemal Waterman MD CO2 [Moles/Vol] 23 mmol/L Normal 22-29 [facility] Comment on above: Performed By: #### A MON #### [address] [address] Graduate Fellow: Kemal Waterman MD Creatinine [Mass/Vol] 0.8 mg/dL Normal 0.70-1.20 [facility] Comment on above: Performed By: #### A MON #### [address] [address] Graduate Fellow: Kemal Waterman MD GFR/1.73 sq M.predicted among non-blacks MDRD (S/P/Bld) [Vol rate/Area] mL/min/{1.73_m2} Normal >60 [facility] Comment on above: Result Comment: These results [...] secretion. Performed By: #### A MON #### [address] [place] [address] Graduate Fellow: Kemal Waterman MD Glucose [Mass/Vol] 78 mg/dL Normal 74-99 [facility] Comment on above: Performed By: #### A MON #### [address] [place] [address] Graduate Fellow: Kemal Waterman MD Potassium [Moles/Vol] 4.8 mmol/L Normal 3.5-5.0 [facility] Comment on above: Performed By: #### A MON #### [address] [place] [address] Graduate Fellow: Kemal Waterman MD Protein [Mass/Vol] 6.2 g/dL Low 6.4-8.3 [facility] Comment on above: Performed By: #### A MON #### [address] [place] [address] Graduate Fellow: Kemal Waterman MD Sodium [Moles/Vol] 140 mmol/L Normal 132-146 [facility] Comment on above: Performed By: #### A MON #### [address] [place] [address] Graduate Fellow: Kemal Waterman MD Urea nitrogen [Mass/Vol] 9 mg/dL Normal 6-20 [facility] Comment on above: Performed By: #### A MON #### [facility] [address] [place] [id number] Graduate Fellow: Kemal Waterman MD Comprehensive Metabolic Pane l w/ Reflex to MGon 08-03-2023 Albumin [Mass/Vol] 3.0 g/dL Low 3.5 - 5.2 g/dL [facility] ALP [Catalytic activity/Vol] 148 U/L High 40 - 129 U/L [facility] ALT [Catalytic activity/Vol] 27 U/L 0 - 40 U/L [facility] Anion gap [Moles/Vol] 11 mmol/L 7 - 16 mmol/L [facility] AST [Catalytic activity/Vol] 64 U/L High 0 - 39 U/L [facility] Bilirubin [Mass/Vol] 2.0 mg/dL High 0.0 - 1 .2 mg/dL [facility] Calcium [Mass/Vol] 8.1 mg/dL Low 8.6 - 10. 2 mg/dL [facility] Chloride [Moles/Vol] 106 mmol/L 98 - 10 7 mmol/L [facility] CO2 [Moles/Vol] 23 mmol/L 22 - 29 mmol/L [facility] Creatinine [Mass/Vol] 0.8 mg/dL 0.70 - 1.20 mg/dL [facility] [employer] [facility] GFR/1.73 sq M.predicted MDRD (S/P/Bld) [Vol rate/Area] - PINF [facility] Comment on above: These results [...] [Mass/Vol] 78 mg/dL 74 - 99 mg/dL [facility] Interpretation and review of laboratory results Abnormal [facility] [employer] [facility] Potassium [Moles/Vol] 4.8 mmol/L 3.5 - 5.0 mmol/L [facility] Protein [Mass/Vol] 6.2 g/dL Low 6.4 - 8.3 g/dL [facility] Sodium [Moles/Vol] 140 mmol/L 132 - 146 mmol/L [facility] Urea nitrogen [Mass/Vol] 9 mg/dL 6 - 20 mg/dL [facility] Cult, Bloodon 08-03-2023 Cult, Blood Specimen Description .BLOOD LEFT .HAND Special Requests Culture NO GROWTH 5 DAYS Report Status FINAL 08/03/2023 [facility] Comment on above: Performed By: #### B CUL2 #### [place] [address] Graduate Fellow: Kemal Waterman MD Cult,Bloodon 08-03-2023 Cult,Blood Specimen Description .BLOOD RIGHT .HAND Special Requests Culture NO GROWTH 5 DAYS Report Status FINAL 08/03/2023 [facility] Comment on above: Performed By: #### C MPX, CBCWD, PLCON #### [place] [address] Graduate Fellow: Kemal Waterman MD Culture, Blood 1on 4 Microorganism identified Cx Nom (Unsp spec) NO GROWTH 5 DAYS [facility] Service comment (Unsp spec) [Interp] [facility] Specimen Description .BLOOD RIGHT [facility] Culture, Blood 2on 4 Microorganism identified Cx Nom (Unsp spec) NO GROWTH 5 DAYS [facility] Service comment (Unsp spec) [Interp] [facility] Specimen Description .BLOOD LEFT [facility] Platelet Confirmationon 07-17 Platelet Confirmation CONFIRMED Normal [facility] Comment on above: Performed By: #### A MON #### [place] [address] Graduate Fellow: Kemal Waterman MD Platelet Confirmation CONFIRMED [employer] [facility] [facility] Ammoniaon 08-02-2023 Ammonia (P) [Moles/Vol] 75 umol/L High 16.0-60.0 [facility] Comment on above: Performed By: #### C MPX, CBCWD, PLCON #### [facility] [address] [place] [address] Graduate Fellow: Kemal Waterman MD Ammonia (P) [Moles/Vol] 75 umol/L High 16.0 - 60.0 umol/L [facility] Interpretation and review of laboratory results Abnormal [facility] CBC with Auto Differentialon 08-02-2023 Basophils (Bld) [#/Vol] 0 10*3/uL [facility] Basophils/100 WBC (Bld) 0 % 0.0 - 2.0 % [facility] Eosinophils (Bld) [#/Vol] 0.07 10*3/uL [employer] [facility] [employer] [facility] [facility] Eosinophils/100 WBC (Bld) 2 % 0 - 6 % [employer] [facility] [facility] Erythrocyte distribution width (RBC) [Ratio] 20.9 % High 11.5 - 15.0 % [employer] [facility] [employer] [facility] [facility] Hematocrit (Bld) [Volume fraction] 29.4 % Low 37.0 - 54.0 % [facility] Hemoglobin (Bld) [Mass/Vol] 9.8 g/dL Low 12.5 - 16.5 g/dL [facility] Interpretation and review of laboratory results Abnormal [employer] [facility] [facility] Lymphocytes/100 WBC (Bld) 11 % Low 20.0 - 42.0 % [employer] [facility] [facility] Lymphocytes/100 WBC (Bld) 0.46 % Low [employer] [facility] [facility] MCH (RBC) [Entitic mass] 32.2 pg 26.0 - 35.0 pg [employer] [facility] [employer] [facility] [facility] MCHC (RBC) [Mass/Vol] 33.3 g/dL 32.0 - 34.5 g/dL [employer] [facility] [employer] [facility] [facility] MCV (RBC) [Entitic vol] 96.7 fL 80.0 - 99.9 fL [facility] Monocytes/100 WBC (Bld) 11 % 2.0 - 12.0 % [facility] Monocytes/100 WBC (Bld) 0.42 % [facility] Neutrophils/100 WBC (Bld) 76 % 43.0 - 80.0 % [facility] Platelet mean volume (Bld) [Entitic vol] 10.6 fL 7.0 - 12.0 fL [facility] Platelets (Bld) [#/Vol] 54 10*3/uL Low [facility] RBC (Bld) [#/Vol] 3.04 10*6/uL Low 3.80 - 5.8 0 m/uL [facility] RBC (Bld) [#/Vol] 1+ ANISOCYTOSIS [facility] RBC (Bld) [#/Vol] 1+ SALOMON CELLS [facility] RBC (Bld) [#/Vol] 1+ POIKILOCYTOSIS [facility] RBC (Bld) [#/Vol] 1+ POLYCHROMASIA [facility] RBC (Bld) [#/Vol] 1+ TEARDROPS [facility] Segmented neutrophils/100 WBC (Bld) 3.05 % [facility] WBC (Bld) [#/Vol] PRESENT SMUDGE CELLS [facility] WBC other (Bld) [#/Vol] 4.0 Low [facility] CBC with Diffon 08-02-2023 Abs. Basophil 0 k/uL Normal 0.00-0.20 [facility] Comment on above: Performed By: #### C MPX, CBCWD, PLCON #### [place] [address] [place] [address] Graduate Fellow: Kemal Waterman MD Abs.Neutrophil (Seg) 3.05 k/uL Normal 1.80-7.30 [facility] Comment on above: Performed By: #### C MPX, CBCWD, PLCON #### [address] [place] [address] Graduate Fellow: Kemal Waterman MD Basophils/100 WBC (Bld) 0 % Normal 0.0-2.0 [facility] Comment on above: Performed By: #### C MPX, CBCWD, PLCON #### [address] [place] [address] Graduate Fellow: Kemal Waterman MD Eosinophils (Bld) [#/Vol] 0.07 10*3/uL Normal 0.05-0.50 [facility] Comment on above: Performed By: #### C MPX, CBCWD, PLCON #### [place] [address] Graduate Fellow: Kemal Waterman MD Eosinophils/100 WBC (Bld) 2 % Normal 0-6 [facility] Comment on above: Performed By: #### C MPX, CBCWD, PLCON #### [address] [place] [address] Graduate Fellow: Kemal Waterman MD Lymphocytes (Bld) [#/Vol] 0.46 10*3/uL Low 1.50-4.00 [facility] Comment on above: Performed By: #### C MPX, CBCWD, PLCON #### [address] [place] [address] Graduate Fellow: Kemal Waterman MD Lymphocytes/100 WBC (Bld) 11 % Low 20.0-42.0 [facility] Comment on above: Performed By: #### C MPX, CBCWD, PLCON #### [place] [address] Graduate Fellow: Kemal Waterman MD Monocytes (Bld) [#/Vol] 0.42 10*3/uL Normal 0.10-0.95 [facility] Comment on above: Performed By: #### C MPX, CBCWD, PLCON #### [address] [place] [address] Graduate Fellow: Kemal Waterman MD Monocytes/100 WBC (Bld) 11 % Normal 2.0-12.0 [facility] Comment on above: Performed By: #### C MPX, CBCWD, PLCON #### [address] [place] [address] Graduate Fellow: Kemal Waterman MD Neutrophil (Seg) 76 % Normal 43.0-80.0 [facility] Comment on above: Performed By: #### C MPX, CBCWD, PLCON #### [address] [place] [address] Graduate Fellow: Kemal Waterman MD RBC morphology finding Nom (Bld) 1+ Normal [facility] Comment on above: Result Comment: ANIS OCYTOSIS 1+ SALOMON CELLS 1+ POIKILOCYTOSIS 1+ POLYCHROMASIA 1+ TEARDROPS Performed By: #### C MPX, CBCWD, PLCON #### [address] [place] [address] Graduate Fellow: Kemal Waterman MD WBC Morphology PRESENT Normal [facility] Comment on above: Result Comment: SMUD GE CELLS Performed By: #### C MPX, CBCWD, PLCON #### [address] [place] [address] Graduate Fellow: Kemal Waterman MD Erythrocyte distribution width (RBC) [Ratio] 20.9 % High 11.5-15.0 [facility] Comment on above: Performed By: #### C MPX, CBCWD, PLCON #### [address] [address] Graduate Fellow: Kemal Waterman MD Hematocrit (Bld) [Volume fraction] 29.4 % Low 37.0-54.0 [facility] Comment on above: Performed By: #### C MPX, CBCWD, PLCON #### [address] [place] [address] Graduate Fellow: Kemal Waterman MD Hemoglobin (Bld) [Mass/Vol] 9.8 g/dL Low 12.5-16.5 [facility] Comment on above: Performed By: #### C MPX, CBCWD, PLCON #### [place] [address] Graduate Fellow: Kemal Waterman MD MCH (RBC) [Entitic mass] 32.2 pg Normal 26.0-35.0 [facility] Comment on above: Performed By: #### C MPX, CBCWD, PLCON #### [address] [place] [address] Graduate Fellow: Kemal Waterman MD MCHC (RBC) [Mass/Vol] 33.3 g/dL Normal 32.0-34.5 [facility] Comment on above: Performed By: #### C MPX, CBCWD, PLCON #### [address] [place] [address] Graduate Fellow: Kemal Waterman MD MCV (RBC) [Entitic vol] 96.7 fL Normal 80.0-99.9 [facility] Comment on above: Performed By: #### C MPX, CBCWD, PLCON #### [address] [place] [address] Graduate Fellow: Kemal Waterman MD Platelet mean volume (Bld) [Entitic vol] 10.6 fL Normal 7.0-12.0 [facility] Comment on above: Performed By: #### C MPX, CBCWD, PLCON #### [address] [place] [address] Graduate Fellow: Kemal Waterman MD Platelets (Bld) [#/Vol] 54 10*3/uL Low 130-450 [facility] Comment on above: Performed By: #### C MPX, CBCWD, PLCON #### [address] [place] [address] Graduate Fellow: Kemal Waterman MD RBC (Bld) [#/Vol] 3.04 10*6/uL Low 3.80-5.80 [facility] Comment on above: Performed By: #### C MPX, CBCWD, PLCON #### [address] [place] [address] Graduate Fellow: Kemal Waterman MD WBC (Bld) [#/Vol] 4.0 10*3/uL Low 4.5-11.5 [facility] Comment on above: Performed By: #### C MPX, CBCWD, PLCON #### [address] [place] [address] Graduate Fellow: Kemal Waterman MD Comp Metabolic Pr/rfx MGon 0 - Albumin [Mass/Vol] 2.6 g/dL Low 3.5-5.2 [facility] Comment on above: Performed By: #### C MPX, CBCWD, PLCON #### [address] [place] [address] Graduate Fellow: Kemal Waterman MD Alkaline Phos 156 U/L High 40-129 [facility] Comment on above: Performed By: #### C MPX, CBCWD, PLCON #### [address] [place] [address] Graduate Fellow: Kemal Waterman MD ALT [Catalytic activity/Vol] 25 U/L Normal 0-40 [facility] Comment on above: Performed By: #### C MPX, CBCWD, PLCON #### [address] [place] [address] Graduate Fellow: Kemal Waterman MD Anion gap [Moles/Vol] 8 mmol/L Normal 7-16 [facility] Comment on above: Performed By: #### C MPX, CBCWD, PLCON #### [address] [place] [address] Graduate Fellow: Kemal Waterman MD AST [Catalytic activity/Vol] 61 U/L High 0-39 [facility] Comment on above: Performed By: #### C MPX, CBCWD, PLCON #### [address] [place] [address] Graduate Fellow: Kemal Waterman MD Bilirubin [Mass/Vol] 1.7 mg/dL High 0.0-1.2 [facility] Comment on above: Performed By: #### C MPX, CBCWD, PLCON #### [address] [place] [address] Graduate Fellow: Kemal Waterman MD Calcium [Mass/Vol] 8.0 mg/dL Low 8.6-10.2 [facility] Comment on above: Performed By: #### C MPX, CBCWD, PLCON #### [address] [place] [address] Graduate Fellow: Kemal Waterman MD Chloride [Moles/Vol] 105 mmol/L Normal 98-107 [facility] Comment on above: Performed By: #### C MPX, CBCWD, PLCON #### [address] [place] [address] Graduate Fellow: Kemal Waterman MD CO2 [Moles/Vol] 24 mmol/L Normal 22-29 [facility] Comment on above: Performed By: #### C MPX, CBCWD, PLCON #### [address] [place] [address] Graduate Fellow: Kemal Waterman MD Creatinine [Mass/Vol] 0.6 mg/dL Low 0.70-1.20 [facility] Comment on above: Performed By: #### C MPX, CBCWD, PLCON #### [address] [place] [address] Graduate Fellow: Kemal Waterman MD GFR/1.73 sq M.predicted among non-blacks MDRD (S/P/Bld) [Vol rate/Area] mL/min/{1.73_m2} Normal >60 [facility] Comment on above: Result Comment: These results [...] By: #### C MPX, CBCWD, PLCON #### [address] [place] [address] Graduate Fellow: Kemal Waterman MD Glucose [Mass/Vol] 85 mg/dL Normal 74-99 [facility] Comment on above: Performed By: #### C MPX, CBCWD, PLCON #### [address] [place] [address] Graduate Fellow: Kemal Waterman MD Potassium [Moles/Vol] 4.1 mmol/L Normal 3.5-5.0 [facility] Comment on above: Performed By: #### C MPX, CBCWD, PLCON #### [address] [place], [place] [address] Graduate Fellow: Kemal Waterman MD Protein [Mass/Vol] 5.5 g/dL Low 6.4-8.3 [facility] Comment on above: Performed By: #### C MPX, CBCWD, PLCON #### [address] [place] [address] Graduate Fellow: Kemal Waterman MD Sodium [Moles/Vol] 137 mmol/L Normal 132-146 [facility] Comment on above: Performed By: #### C MPX, CBCWD, PLCON #### [address] [place] [address] Graduate Fellow: Kemal Waterman MD Urea nitrogen [Mass/Vol] 7 mg/dL Normal 6-20 [facility] Comment on above: Performed By: #### C MPX, CBCWD, PLCON #### [address] [place] [address] Graduate Fellow: Kemal Waterman MD Comprehensive Metabolic Pane l w/ Reflex to MGon 08-02-2023 Albumin [Mass/Vol] 2.6 g/dL Low 3.5 - 5.2 g/dL [facility] ALP [Catalytic activity/Vol] 156 U/L High 40 - 129 U/L [facility] ALT [Catalytic activity/Vol] 25 U/L 0 - 40 U/L [facility] Anion gap [Moles/Vol] 8 mmol/L 7 - 16 mmol/L [facility] AST [Catalytic activity/Vol] 61 U/L High 0 - 39 U/L [facility] Bilirubin [Mass/Vol] 1.7 mg/dL High 0.0 - 1 .2 mg/dL [facility] Calcium [Mass/Vol] 8.0 mg/dL Low 8.6 - 10. 2 mg/dL [facility] Chloride [Moles/Vol] 105 mmol/L 98 - 10 7 mmol/L [facility] CO2 [Moles/Vol] 24 mmol/L 22 - 29 mmol/L [facility] Creatinine [Mass/Vol] 0.6 mg/dL Low 0.70 - 1.20 mg/dL [facility] GFR/1.73 sq M.predicted MDRD (S/P/Bld) [Vol rate/Area] - PINF [facility] Comment on above: These results [...] [Mass/Vol] 85 mg/dL 74 - 99 mg/dL [facility] Interpretation and review of laboratory results Abnormal [facility] Potassium [Moles/Vol] 4.1 mmol/L 3.5 - 5.0 mmol/L [facility] Protein [Mass/Vol] 5.5 g/dL Low 6.4 - 8.3 g/dL [facility] Sodium [Moles/Vol] 137 mmol/L 132 - 146 mmol/L [facility] Urea nitrogen [Mass/Vol] 7 mg/dL 6 - 20 mg/dL [facility] Platelet Confirmationon 07-17 Platelet Confirmation CONFIRMED Normal [facility] Comment on above: Performed By: #### C MPX, CBCWD, PLCON #### [facility] [address] [facility] [place] [address] Graduate Fellow: Kemal Waterman MD Platelet Confirmation CONFIRMED [facility] Ammoniaon 08-01-2023 Ammonia (P) [Moles/Vol] 73 umol/L High 16.0-60.0 [facility] Comment on above: Performed By: #### A MON #### [facility] [address] [place] [address] Graduate Fellow: Kemal Waterman MD Ammonia (P) [Moles/Vol] 73 umol/L High 16.0 - 60.0 umol/L [facility] Interpretation and review of laboratory results Abnormal [facility] CBC with Auto Differentialon 08-01-2023 Basophils (Bld) [#/Vol] 0.00 10*3/uL [facility] Basophils/100 WBC (Bld) 0 % 0.0 - 2.0 % [facility] Eosinophils (Bld) [#/Vol] 0.07 10*3/uL [facility] Eosinophils/100 WBC (Bld) 2 % 0 - 6 % [facility] Erythrocyte distribution width (RBC) [Ratio] 20.5 % High 11.5 - 15.0 % [facility] Hematocrit (Bld) [Volume fraction] 28.3 % Low 37.0 - 54.0 % [facility] Hemoglobin (Bld) [Mass/Vol] 9.4 g/dL Low 12.5 - 16.5 g/dL [facility] Interpretation and review of laboratory results Abnormal [facility] Lymphocytes/100 WBC (Bld) 18 % Low 20.0 - 42.0 % [facility] Lymphocytes/100 WBC (Bld) 0.76 % Low [facility] MCH (RBC) [Entitic mass] 32.1 pg 26.0 - 35.0 pg [facility] MCHC (RBC) [Mass/Vol] 33.2 g/dL 32.0 - 34.5 g/dL [facility] MCV (RBC) [Entitic vol] 96.6 fL 80.0 - 99.9 fL [facility] Monocytes/100 WBC (Bld) 11 % 2.0 - 12.0 % [facility] Monocytes/100 WBC (Bld) 0.47 % [facility] Neutrophils/100 WBC (Bld) 68 % 43.0 - 80.0 % [facility] Platelet mean volume (Bld) [Entitic vol] 10.4 fL 7.0 - 12.0 fL [facility] Platelets (Bld) [#/Vol] 48 10*3/uL Low [facility] RBC (Bld) [#/Vol] 2.93 10*6/uL Low 3.80 - 5.8 0 m/uL [facility] RBC (Bld) [#/Vol] 2+ ANISOCYTOSIS [facility] RBC (Bld) [#/Vol] 1+ POIKILOCYTOSIS [facility] RBC (Bld) [#/Vol] 1+ TARGET CELLS [facility] RBC (Bld) [#/Vol] 2+ TEARDROPS [facility] Segmented neutrophils/100 WBC (Bld) 2.81 % [facility] WBC other (Bld) [#/Vol] 4.1 Low [facility] CBC with Diffon 08-01-2023 Abs. Basophil 0.00 k/uL Normal 0.00-0.20 [facility] Comment on above: Performed By: #### A MON #### [place] [address] Graduate Fellow: Kemal Waterman MD Abs.Neutrophil (Seg) 2.81 k/uL Normal 1.80-7.30 [facility] Comment on above: Performed By: #### A MON #### [address] [address] Graduate Fellow: Kemal Waterman MD Basophils/100 WBC (Bld) 0 % Normal 0.0-2.0 [facility] Comment on above: Performed By: #### A MON #### [address] [address] Graduate Fellow: Kemal Waterman MD Eosinophils (Bld) [#/Vol] 0.07 10*3/uL Normal 0.05-0.50 [facility] Comment on above: Performed By: #### A MON #### [address] [place] [address] Graduate Fellow: Kemal Waterman MD Eosinophils/100 WBC (Bld) 2 % Normal 0-6 [facility] Comment on above: Performed By: #### A MON #### [place] [address] Graduate Fellow: Kemal Waterman MD Lymphocytes (Bld) [#/Vol] 0.76 10*3/uL Low 1.50-4.00 [facility] Comment on above: Performed By: #### A MON #### [address] [place] [address] Graduate Fellow: Kemal Waterman MD Lymphocytes/100 WBC (Bld) 18 % Low 20.0-42.0 [facility] Comment on above: Performed By: #### A MON #### [address] [place] [address] Graduate Fellow: Kemal Waterman MD Monocytes (Bld) [#/Vol] 0.47 10*3/uL Normal 0.10-0.95 [facility] Comment on above: Performed By: #### A MON #### [place] [address] Graduate Fellow: Kemal Waterman MD Monocytes/100 WBC (Bld) 11 % Normal 2.0-12.0 [facility] Comment on above: Performed By: #### A MON #### [address] [place] [address] Graduate Fellow: Kemal Waterman MD Neutrophil (Seg) 68 % Normal 43.0-80.0 [facility] Comment on above: Performed By: #### A MON #### [address] [address] Graduate Fellow: Kemal Waterman MD RBC morphology finding Nom (Bld) 2+ Normal [facility] Comment on above: Result Comment: ANIS OCYTOSIS 1+ POIKILOCYTOSIS 1+ TARGET CELLS 2+ TEARDROPS Performed By: #### A MON #### [place] [address] Graduate Fellow: Kemal Waterman MD Erythrocyte distribution width (RBC) [Ratio] 20.5 % High 11.5-15.0 [facility] Comment on above: Performed By: #### A MON #### [place] [address] Graduate Fellow: Kemal Waterman MD Hematocrit (Bld) [Volume fraction] 28.3 % Low 37.0-54.0 [facility] Comment on above: Performed By: #### A MON #### [place] [address] Graduate Fellow: Kemal Waterman MD Hemoglobin (Bld) [Mass/Vol] 9.4 g/dL Low 12.5-16.5 [facility] Comment on above: Performed By: #### A MON #### [address] [address] Graduate Fellow: Kemal Waterman MD MCH (RBC) [Entitic mass] 32.1 pg Normal 26.0-35.0 [facility] Comment on above: Performed By: #### A MON #### [place] [id number] Graduate Fellow: Kemal Waterman MD MCHC (RBC) [Mass/Vol] 33.2 g/dL Normal 32.0-34.5 [facility] Comment on above: Performed By: #### A MON #### [address] [place] [address] Graduate Fellow: Kemal Waterman MD MCV (RBC) [Entitic vol] 96.6 fL Normal 80.0-99.9 [facility] Comment on above: Performed By: #### A MON #### [address] [place] [address] Graduate Fellow: Kemal Waterman MD Platelet mean volume (Bld) [Entitic vol] 10.4 fL Normal 7.0-12.0 [facility] Comment on above: Performed By: #### A MON #### [address] [place] [address] Graduate Fellow: Kemal Waterman MD Platelets (Bld) [#/Vol] 48 10*3/uL Low 130-450 [facility] Comment on above: Performed By: #### A MON #### [address] [place] [address] Graduate Fellow: Kemal Waterman MD RBC (Bld) [#/Vol] 2.93 10*6/uL Low 3.80-5.80 [facility] Comment on above: Performed By: #### A MON #### [address] [place] [address] Graduate Fellow: Kemal Waterman MD WBC (Bld) [#/Vol] 4.1 10*3/uL Low 4.5-11.5 [facility] Comment on above: Performed By: #### A MON #### [address] [place] [address] Graduate Fellow: Kemal Waterman MD Comp Metabolic Pr/rfx MGon 0 - Albumin [Mass/Vol] 2.9 g/dL Low 3.5-5.2 [facility] Comment on above: Performed By: #### A MON #### [address] [place] [address] Graduate Fellow: Kemal Waterman MD Alkaline Phos 135 U/L High 40-129 [facility] Comment on above: Performed By: #### A MON #### [address] [place] [address] Graduate Fellow: Kemal Waterman MD ALT [Catalytic activity/Vol] 29 U/L Normal 0-40 [facility] Comment on above: Performed By: #### A MON #### [address] [place] [address] Graduate Fellow: Kemal Waterman MD Anion gap [Moles/Vol] 11 mmol/L Normal 7-16 [facility] Comment on above: Performed By: #### A MON #### [address] [place] [address] Graduate Fellow: Kemal Waterman MD AST [Catalytic activity/Vol] 79 U/L High 0-39 [facility] Comment on above: Performed By: #### A MON #### [address] [place] [address] Graduate Fellow: Kemal Waterman MD Bilirubin [Mass/Vol] 1.7 mg/dL High 0.0-1.2 [facility] Comment on above: Performed By: #### A MON #### [address] [place] [address] Graduate Fellow: Kemal Waterman MD Calcium [Mass/Vol] 7.6 mg/dL Low 8.6-10.2 [facility] Comment on above: Performed By: #### A MON #### [address] [place] [address] Graduate Fellow: Kemal Waterman MD Chloride [Moles/Vol] 101 mmol/L Normal 98-107 [facility] Comment on above: Performed By: #### A MON #### [address] [address] Graduate Fellow: Kemal Waterman MD CO2 [Moles/Vol] 23 mmol/L Normal 22-29 [facility] Comment on above: Performed By: #### A MON #### [address] [address] Graduate Fellow: Kemal Waterman MD Creatinine [Mass/Vol] 0.7 mg/dL Normal 0.70-1.20 [facility] Comment on above: Performed By: #### A MON #### [address] [address] Graduate Fellow: Kemal Waterman MD GFR/1.73 sq M.predicted among non-blacks MDRD (S/P/Bld) [Vol rate/Area] mL/min/{1.73_m2} Normal >60 [facility] Comment on above: Result Comment: These results [...] secretion. Performed By: #### A MON #### [address] [place] [address] Graduate Fellow: Kemal Waterman MD Glucose [Mass/Vol] 96 mg/dL Normal 74-99 [facility] Comment on above: Performed By: #### A MON #### [address] [place] [address] Graduate Fellow: Kemal Waterman MD Potassium [Moles/Vol] 3.4 mmol/L Low 3.5-5.0 [facility] Comment on above: Performed By: #### A MON #### [address] [place] [address] Graduate Fellow: Kemal Waterman MD Protein [Mass/Vol] 5.6 g/dL Low 6.4-8.3 [facility] Comment on above: Performed By: #### A MON #### [address] [place] [address] Graduate Fellow: Kemal Waterman MD Sodium [Moles/Vol] 135 mmol/L Normal 132-146 [facility] Comment on above: Performed By: #### A MON #### [address] [place] [address] Graduate Fellow: Kemal Waterman MD Urea nitrogen [Mass/Vol] 8 mg/dL Normal 6-20 [facility] Comment on above: Performed By: #### A MON #### [address] [place] [address] Graduate Fellow: Kemal Waterman MD Comprehensive Metabolic Pane l w/ Reflex to MGon 08-01-2023 Albumin [Mass/Vol] 2.9 g/dL Low 3.5 - 5.2 g/dL [facility] ALP [Catalytic activity/Vol] 135 U/L High 40 - 129 U/L [facility] ALT [Catalytic activity/Vol] 29 U/L 0 - 40 U/L [facility] Anion gap [Moles/Vol] 11 mmol/L 7 - 16 mmol/L [facility] AST [Catalytic activity/Vol] 79 U/L High 0 - 39 U/L [facility] Bilirubin [Mass/Vol] 1.7 mg/dL High 0.0 - 1 .2 mg/dL [facility] Calcium [Mass/Vol] 7.6 mg/dL Low 8.6 - 10. 2 mg/dL [facility] Chloride [Moles/Vol] 101 mmol/L 98 - 10 7 mmol/L [facility] CO2 [Moles/Vol] 23 mmol/L 22 - 29 mmol/L [facility] Creatinine [Mass/Vol] 0.7 mg/dL 0.70 - 1.20 mg/dL [facility] GFR/1.73 sq M.predicted MDRD (S/P/Bld) [Vol rate/Area] - PINF [facility] Comment on above: These results [...] [Mass/Vol] 96 mg/dL 74 - 99 mg/dL [facility] Interpretation and review of laboratory results Abnormal [facility] Potassium [Moles/Vol] 3.4 mmol/L Low 3.5 - 5.0 mmol/L [facility] Protein [Mass/Vol] 5.6 g/dL Low 6.4 - 8.3 g/dL [facility] Sodium [Moles/Vol] 135 mmol/L 132 - 146 mmol/L [facility] Urea nitrogen [Mass/Vol] 8 mg/dL 6 - 20 mg/dL [facility] Magnesiumon 08-01-2023 Magnesium [Mass/Vol] 1.6 mg/dL Normal 1.6-2.6 [facility] Comment on above: Performed By: #### A MON #### [place] [address] Graduate Fellow: Kemal Waterman MD Magnesium [Mass/Vol] 1.6 mg/dL 1.6 - 2 .6 mg/dL [facility] No Panel Informationon 08-01 [facility] Platelet Confirmationon 07-17 Platelet Confirmation CONFIRMED Normal [facility] Comment on above: Performed By: #### A MON #### [place] [address] Graduate Fellow: Kemal Waterman MD Platelet Confirmation CONFIRMED [facility] Ammoniaon 07-31-2023 Ammonia (P) [Moles/Vol] 34 umol/L Normal 16.0-60.0 [facility] Comment on above: Performed By: #### C MPX, CBCWD, PLCON #### [place] [address] Graduate Fellow: Kemal Waterman MD Ammonia (P) [Moles/Vol] 34 umol/L 16.0 - 60.0 umol/L [facility] CBC with Auto Differentialon 07-31-2023 Basophils (Bld) [#/Vol] 0.02 10*3/uL [facility] Basophils/100 WBC (Bld) 0 % 0.0 - 2.0 % [facility] Eosinophils (Bld) [#/Vol] 0.08 10*3/uL [facility] Eosinophils/100 WBC (Bld) 2 % 0 - 6 % [facility] Erythrocyte distribution width (RBC) [Ratio] 20.8 % High 11.5 - 15.0 % [facility] Hematocrit (Bld) [Volume fraction] 30.6 % Low 37.0 - 54.0 % [facility] Hemoglobin (Bld) [Mass/Vol] 10.1 g/dL Low 12.5 - 16.5 g/dL [facility] Immature granulocytes (Bld) [#/Vol] 0.04 10*3/uL [facility] Immature granulocytes/100 WBC (Bld) 1 % 0.0 - 5.0 % [facility] Interpretation and review of laboratory results Abnormal [facility] Lymphocytes/100 WBC (Bld) 18 % Low 20.0 - 42.0 % [facility] Lymphocytes/100 WBC (Bld) 0.96 % Low [facility] MCH (RBC) [Entitic mass] 32.7 pg 26.0 - 35.0 pg [facility] MCHC (RBC) [Mass/Vol] 33.0 g/dL 32.0 - 34.5 g/dL [facility] MCV (RBC) [Entitic vol] 99.0 fL 80.0 - 99.9 fL [facility] Monocytes/100 WBC (Bld) 16 % High 2.0 - 12.0 % [facility] Monocytes/100 WBC (Bld) 0.87 % [facility] Neutrophils/100 WBC (Bld) 64 % 43.0 - 80.0 % [facility] Platelet mean volume (Bld) [Entitic vol] 9.9 fL 7.0 - 12.0 fL [facility] Platelets (Bld) [#/Vol] 50 10*3/uL Low [facility] RBC (Bld) [#/Vol] 3.09 10*6/uL Low 3.80 - 5.8 0 m/uL [facility] RBC (Bld) [#/Vol] 1+ ANISOCYTOSIS [facility] RBC (Bld) [#/Vol] 1+ OVALOCYTES [facility] RBC (Bld) [#/Vol] 1+ POIKILOCYTOSIS [facility] RBC (Bld) [#/Vol] 1+ POLYCHROMASIA B ON [facility] Segmented neutrophils/100 WBC (Bld) 3.52 % [facility] WBC other (Bld) [#/Vol] 5.5 [facility] CBC with Diffon 07-31-2023 RBC morphology finding Nom (Bld) 1+ Normal [facility] Comment on above: Result Comment: ANIS OCYTOSIS 1+ OVALOCYTES 1+ POIKILOCYTOSIS 1+ POLYCHROMASIA Performed By: #### C MPX, CBCWD, PLCON #### [address] [place] [address] Graduate Fellow: Kemal Waterman MD Abs. Basophil 0.02 k/uL Normal 0.00-0.20 [facility] Comment on above: Performed By: #### C MPX, CBCWD, PLCON #### [place] [address] Graduate Fellow: Kemal Waterman MD Abs.Imm.Granulocyte 0.04 k/uL Normal 0.00-0.58 [facility] Comment on above: Performed By: #### C MPX, CBCWD, PLCON #### [place] [address] Graduate Fellow: Kemal Waterman MD Abs.Neutrophil (Seg) 3.52 k/uL Normal 1.80-7.30 [facility] Comment on above: Performed By: #### C MPX, CBCWD, PLCON #### [place] [address] Graduate Fellow: Kemal Waterman MD Basophils/100 WBC (Bld) 0 % Normal 0.0-2.0 [facility] Comment on above: Performed By: #### C MPX, CBCWD, PLCON #### [address] [address] Graduate Fellow: Kemal Waterman MD Eosinophils (Bld) [#/Vol] 0.08 10*3/uL Normal 0.05-0.50 [facility] Comment on above: Performed By: #### C MPX, CBCWD, PLCON #### [address] [place] [address] Graduate Fellow: Kemal Waterman MD Eosinophils/100 WBC (Bld) 2 % Normal 0-6 [facility] Comment on above: Performed By: #### C MPX, CBCWD, PLCON #### [place] [address] Graduate Fellow: Kemal Waterman MD Immature granulocytes/100 WBC (Bld) 1 % Normal 0.0-5.0 [facility] Comment on above: Performed By: #### C MPX, CBCWD, PLCON #### [address] [place] [address] Graduate Fellow: Kemal Waterman MD Lymphocytes (Bld) [#/Vol] 0.96 10*3/uL Low 1.50-4.00 [facility] Comment on above: Performed By: #### C MPX, CBCWD, PLCON #### [address] [place] [address] Graduate Fellow: Kemal Waterman MD Lymphocytes/100 WBC (Bld) 18 % Low 20.0-42.0 [facility] Comment on above: Performed By: #### C MPX, CBCWD, PLCON #### [address] [place] [address] Graduate Fellow: Kemal Waterman MD Monocytes (Bld) [#/Vol] 0.87 10*3/uL Normal 0.10-0.95 [facility] Comment on above: Performed By: #### C MPX, CBCWD, PLCON #### [address] [place] [address] Graduate Fellow: Kemal Waterman MD Monocytes/100 WBC (Bld) 16 % High 2.0-12.0 [facility] Comment on above: Performed By: #### C MPX, CBCWD, PLCON #### [place] [address] Graduate Fellow: Kemal Waterman MD Neutrophil (Seg) 64 % Normal 43.0-80.0 [facility] Comment on above: Performed By: #### C MPX, CBCWD, PLCON #### [address] [place] [address] Graduate Fellow: Kemal Waterman MD Erythrocyte distribution width (RBC) [Ratio] 20.8 % High 11.5-15.0 [facility] Comment on above: Performed By: #### C MPX, CBCWD, PLCON #### [address] [place] [address] Graduate Fellow: Kemal Waterman MD Hematocrit (Bld) [Volume fraction] 30.6 % Low 37.0-54.0 [facility] Comment on above: Performed By: #### C MPX, CBCWD, PLCON #### [address] [place] [address] Graduate Fellow: Kemal Waterman MD Hemoglobin (Bld) [Mass/Vol] 10.1 g/dL Low 12.5-16.5 [facility] Comment on above: Performed By: #### C MPX, CBCWD, PLCON #### [address] [place] [address] Graduate Fellow: Kemal Waterman MD MCH (RBC) [Entitic mass] 32.7 pg Normal 26.0-35.0 [facility] Comment on above: Performed By: #### C MPX, CBCWD, PLCON #### [address] [place] [address] Graduate Fellow: Kemal Waterman MD MCHC (RBC) [Mass/Vol] 33.0 g/dL Normal 32.0-34.5 [facility] Comment on above: Performed By: #### C MPX, CBCWD, PLCON #### [address] [place] [address] Graduate Fellow: Kemal Waterman MD MCV (RBC) [Entitic vol] 99.0 fL Normal 80.0-99.9 [facility] Comment on above: Performed By: #### C MPX, CBCWD, PLCON #### [address] [place] [address] Graduate Fellow: Kemal Waterman MD Platelet mean volume (Bld) [Entitic vol] 9.9 fL Normal 7.0-12.0 [facility] Comment on above: Performed By: #### C MPX, CBCWD, PLCON #### [address] [place] [address] Graduate Fellow: Kemal Waterman MD Platelets (Bld) [#/Vol] 50 10*3/uL Low 130-450 [facility] Comment on above: Performed By: #### C MPX, CBCWD, PLCON #### [address] [place] [address] Graduate Fellow: Kemal Waterman MD RBC (Bld) [#/Vol] 3.09 10*6/uL Low 3.80-5.80 [facility] Comment on above: Performed By: #### C MPX, CBCWD, PLCON #### [address] [place] [address] Graduate Fellow: Kemal Waterman MD WBC (Bld) [#/Vol] 5.5 10*3/uL Normal 4.5-11.5 [facility] Comment on above: Performed By: #### C MPX, CBCWD, PLCON #### [address] [address] Graduate Fellow: Kemal Waterman MD Comp Metabolic Pr/rfx MGon 0 - Albumin [Mass/Vol] 2.9 g/dL Low 3.5-5.2 [facility] Comment on above: Performed By: #### C MPX, CBCWD, PLCON #### [address] [address] Graduate Fellow: Kemal Waterman MD Alkaline Phos 126 U/L Normal 40-129 [facility] Comment on above: Performed By: #### C MPX, CBCWD, PLCON #### [place] [address] Graduate Fellow: Kemal Waterman MD ALT [Catalytic activity/Vol] 30 U/L Normal 0-40 [facility] Comment on above: Performed By: #### C MPX, CBCWD, PLCON #### [place] [address] Graduate Fellow: Kemal Waterman MD Anion gap [Moles/Vol] 10 mmol/L Normal 7-16 [facility] Comment on above: Performed By: #### C MPX, CBCWD, PLCON #### [address] [address] Graduate Fellow: Kemal Waterman MD AST [Catalytic activity/Vol] 83 U/L High 0-39 [facility] Comment on above: Performed By: #### C MPX, CBCWD, PLCON #### [address] [place] [address] Graduate Fellow: Kemal Waterman MD Bilirubin [Mass/Vol] 2.0 mg/dL High 0.0-1.2 [facility] Comment on above: Performed By: #### C MPX, CBCWD, PLCON #### [address] [place] [address] Graduate Fellow: Kemal Waterman MD Calcium [Mass/Vol] 7.6 mg/dL Low 8.6-10.2 [facility] Comment on above: Performed By: #### C MPX, CBCWD, PLCON #### [address] [address] Graduate Fellow: Kemal Waterman MD Chloride [Moles/Vol] 102 mmol/L Normal 98-107 [facility] Comment on above: Performed By: #### C MPX, CBCWD, PLCON #### [address] [place] [address] Graduate Fellow: Kemal Waterman MD CO2 [Moles/Vol] 23 mmol/L Normal 22-29 [facility] Comment on above: Performed By: #### C MPX, CBCWD, PLCON #### [address] [place] [address] Graduate Fellow: Kemal Waterman MD Creatinine [Mass/Vol] 0.8 mg/dL Normal 0.70-1.20 [facility] Comment on above: Performed By: #### C MPX, CBCWD, PLCON #### [address] [address] Graduate Fellow: Kemal Waterman MD GFR/1.73 sq M.predicted among non-blacks MDRD (S/P/Bld) [Vol rate/Area] mL/min/{1.73_m2} Normal >60 [facility] Comment on above: Result Comment: These results [...] By: #### C MPX, CBCWD, PLCON #### [address] [place] [address] Graduate Fellow: Kemal Waterman MD Glucose [Mass/Vol] 83 mg/dL Normal 74-99 [facility] Comment on above: Performed By: #### C MPX, CBCWD, PLCON #### [address] [place] [address] Graduate Fellow: Kemal Waterman MD Potassium [Moles/Vol] 3.7 mmol/L Normal 3.5-5.0 [facility] Comment on above: Performed By: #### C MPX, CBCWD, PLCON #### [address] [place] [address] Graduate Fellow: Kemal Waterman MD Protein [Mass/Vol] 5.9 g/dL Low 6.4-8.3 [facility] Comment on above: Performed By: #### C MPX, CBCWD, PLCON #### [address] [place] [address] Graduate Fellow: Kemal Waterman MD Sodium [Moles/Vol] 135 mmol/L Normal 132-146 [facility] Comment on above: Performed By: #### C MPX, CBCWD, PLCON #### [facility] [address] [address] Graduate Fellow: Kemal Waterman MD Urea nitrogen [Mass/Vol] 10 mg/dL Normal 6-20 [facility] Comment on above: Performed By: #### C MPX, CBCWD, PLCON #### [facility] [address] [place] [address] Graduate Fellow: Kemal Waterman MD Comprehensive Metabolic Pane l w/ Reflex to MGon 07-31-2023 Albumin [Mass/Vol] 2.9 g/dL Low 3.5 - 5.2 g/dL [facility] ALP [Catalytic activity/Vol] 126 U/L 40 - 129 U/L [facility] ALT [Catalytic activity/Vol] 30 U/L 0 - 40 U/L [facility] Anion gap [Moles/Vol] 10 mmol/L 7 - 16 mmol/L [facility] AST [Catalytic activity/Vol] 83 U/L High 0 - 39 U/L [facility] Bilirubin [Mass/Vol] 2.0 mg/dL High 0.0 - 1 .2 mg/dL [facility] Calcium [Mass/Vol] 7.6 mg/dL Low 8.6 - 10. 2 mg/dL [facility] Chloride [Moles/Vol] 102 mmol/L 98 - 10 7 mmol/L [facility] CO2 [Moles/Vol] 23 mmol/L 22 - 29 mmol/L [facility] Creatinine [Mass/Vol] 0.8 mg/dL 0.70 - 1.20 mg/dL [facility] GFR/1.73 sq M.predicted MDRD (S/P/Bld) [Vol rate/Area] - PINF [facility] Comment on above: These results [...] [Mass/Vol] 83 mg/dL 74 - 99 mg/dL [facility] Interpretation and review of laboratory results Abnormal [facility] Potassium [Moles/Vol] 3.7 mmol/L 3.5 - 5.0 mmol/L [facility] Protein [Mass/Vol] 5.9 g/dL Low 6.4 - 8.3 g/dL [facility] Sodium [Moles/Vol] 135 mmol/L 132 - 146 mmol/L [facility] Urea nitrogen [Mass/Vol] 10 mg/dL 6 - 20 mg/dL [facility] Drug Scr, Abuse, Uron 2023 Amphetamine(s),Ur Negative Normal NEG [facility] Comment on above: Result Comment: Cuto ff: 1000 ng/mL Performed By: #### D AU #### [place] [address] Graduate Fellow: Kemal Waterman MD Barbiturate(s),Ur Negative Normal NEG [facility] Comment on above: Result Comment: Cuto ff: 200 ng/ml Performed By: #### D AU #### [place] [address] Graduate Fellow: Kemal Waterman MD Benzodiazepine(s) Negative Normal NEG [facility] Comment on above: Result Comment: Cuto ff: 200 ng/ml Performed By: #### D AU #### [place] [address] Graduate Fellow: Kemal Waterman MD Buprenorphrine, Ur Negative Normal NEG [facility] Comment on above: Result Comment: Cuto ff: 5 ng/ml Performed By: #### D AU #### [address] [address] Graduate Fellow: Kemal Waterman MD Cannabinoid(s),Ur Positive Abnormal NEG [facility] Comment on above: Result Comment: Cuto ff: 50 ng/ml Performed By: #### D AU #### [address] [place] [address] Graduate Fellow: Kemal Waterman MD Cocaine Metabolite Negative Normal NEG [facility] Comment on above: Result Comment: Cuto ff: 300 ng/ml Performed By: #### D AU #### [address] [place] [address] Graduate Fellow: Kemal Waterman MD Fentanyl, Urine Negative Normal NEG [facility] Comment on above: Result Comment: Cuto ff: 1.0 ng/ml Performed By: #### D AU #### [address] [place] [address] Graduate Fellow: Kemal Waterman MD Interpretive Info These drug screen results are for medical purposes only and should not be Normal [facility] Comment on above: Result Comment: cons idered definitive or confirmed. The drug methodology concentration value must be greater than or equal to the cutoff to be reported as positive. Confirmtory testing orders and/or interpretive sceening questions can be directed to toxicology at [phone]. The absence of expected drug(s) and/or metabolite(s) may be due to inappropriate timing of specimen collection relative to drug administration, poor drug absorption, diluted/adulterated urine, or limitations of screening methodology. Performed By: #### D AU #### [address] [place] [address] Graduate Fellow: Kemal Waterman MD Methadone Ql (U) Negative Normal NEG [facility] Comment on above: Result Comment: Cuto ff: 300 ng/ml Performed By: #### D AU #### [address] [place] [address] Graduate Fellow: Kemal Waterman MD Opiate(s), Ur Negative Normal NEG [facility] Comment on above: Result Comment: Cuto ff: 300 ng/ml Note: The Opiate screen is not intended to detect Oxycodone. Performed By: #### D AU #### [address] [place] [address] Graduate Fellow: Kemal Waterman MD Oxycodone, Urine Positive Abnormal NEG [facility] Comment on above: Result Comment: Cuto ff: 100 ng/ml Performed By: #### D AU #### [address] [place] [address] Graduate Fellow: Kemal Waterman MD Phencyclidine, Ur Negative Normal NEG [facility] Comment on above: Result Comment: Cuto ff: 25 ng/ml Performed By: #### D AU #### [address] [place] [address] Graduate Fellow: Kemal Waterman MD No Panel Informationon 07-31 [facility] PTon 07-31-2023 INR Coag (PPP) [Relative time] 1.6 {INR} Normal [facility] Comment on above: Result Comment: Therapeutic Range: Moderate Anticoagulant Intensity: INR = 2.0-3.0 High Anticoagulant Intensity: INR = 2.5-3.5 Performed By: #### C MPX, CBCWD, PLCON #### [address] [place] [address] Graduate Fellow: Kemal Waterman MD PT Coag (PPP) [Time] 17.0 s High 9.3-12.4 [facility] Comment on above: Performed By: #### C MPX, CBCWD, PLCON #### [address] [place] [address] Graduate Fellow: Kemal Waterman MD Platelet Confirmationon 07-17 Platelet Confirmation CONFIRMED Normal [facility] Comment on above: Performed By: #### C MPX, CBCWD, PLCON #### [facility] [address] [place] [address] Graduate Fellow: Kemal Waterman MD Platelet Confirmation CONFIRMED BON [...] should not be considered definitive or confirmed. [facility] Comment on above: The drug methodology concentration value must be greater than or equal to the cutoff to be reported as positive. Confirmtory testing orders and/or interpretive sceening questions can be directed to toxicology at [phone]. The absence of expected drug(s) and/or metabolite(s) may be due to inappropriate timing of specimen collection relative to drug administration, poor drug absorption, diluted/adulterated urine, or limitations of screening methodology. [facility] Ammoniaon 07-30-2023 Ammonia (P) [Moles/Vol] 82 umol/L High 16.0-60.0 [facility] Comment on above: Performed By: #### C MPX, CBCWD, PLCON #### [facility] [address] [place] [address] Graduate Fellow: Kemal Waterman MD Ammonia (P) [Moles/Vol] 82 umol/L High 16.0 - 60.0 umol/L [facility] Interpretation and review of laboratory results Abnormal [facility] CBC with Auto Differentialon 07-30-2023 Basophils (Bld) [#/Vol] 0.02 10*3/uL [facility] Basophils/100 WBC (Bld) 0 % 0.0 - 2.0 % [facility] Eosinophils (Bld) [#/Vol] 0.02 10*3/uL Low [facility] Eosinophils/100 WBC (Bld) 0 % 0 - 6 % [facility] Erythrocyte distribution width (RBC) [Ratio] 20.0 % High 11.5 - 15.0 % [facility] Hematocrit (Bld) [Volume fraction] 28.1 % Low 37.0 - 54.0 % [facility] Hemoglobin (Bld) [Mass/Vol] 9.2 g/dL Low 12.5 - 16.5 g/dL [facility] Immature granulocytes (Bld) [#/Vol] 0.03 10*3/uL [facility] Immature granulocytes/100 WBC (Bld) 1 % 0.0 - 5.0 % [facility] Interpretation and review of laboratory results Abnormal [employer] [facility] [facility] Lymphocytes/100 WBC (Bld) 15 % Low 20.0 - 42.0 % [employer] [facility] [employer] [facility] Lymphocytes/100 WBC (Bld) 0.90 % Low [employer] [facility] [facility] MCH (RBC) [Entitic mass] 31.8 pg 26.0 - 35.0 pg [facility] MCHC (RBC) [Mass/Vol] 32.7 g/dL 32.0 - 34.5 g/dL [facility] MCV (RBC) [Entitic vol] 97.2 fL 80.0 - 99.9 fL [facility] Monocytes/100 WBC (Bld) 14 % High 2.0 - 12.0 % [facility] Monocytes/100 WBC (Bld) 0.84 % [facility] Neutrophils/100 WBC (Bld) 71 % 43.0 - 80.0 % [facility] Platelet mean volume (Bld) [Entitic vol] 10.5 fL 7.0 - 12.0 fL [employer] [facility] [employer] [facility] Platelet, Fluorescence 49 Low [employer] [facility] RBC (Bld) [#/Vol] 2.89 10*6/uL Low 3.80 - 5.8 0 m/uL [facility] Segmented neutrophils/100 WBC (Bld) 4.31 % [facility] WBC other (Bld) [#/Vol] 6.1 [facility] CBC with Diffon 07-30-2023 Abs. Basophil 0.02 k/uL Normal 0.00-0.20 [facility] Comment on above: Performed By: #### C MPX, CBCWD, PLCON #### [id number] [place] [address] Graduate Fellow: Kemal Waterman MD Abs.Imm.Granulocyte 0.03 k/uL Normal 0.00-0.58 [facility] Comment on above: Performed By: #### C MPX, CBCWD, PLCON #### [address] [place] [address] Graduate Fellow: Kemal Waterman MD Abs.Neutrophil (Seg) 4.31 k/uL Normal 1.80-7.30 [facility] Comment on above: Performed By: #### C MPX, CBCWD, PLCON #### [address] [place] [address] Graduate Fellow: Kemal Waterman MD Basophils/100 WBC (Bld) 0 % Normal 0.0-2.0 [facility] Comment on above: Performed By: #### C MPX, CBCWD, PLCON #### [place] [address] Graduate Fellow: Kemal Waterman MD Eosinophils (Bld) [#/Vol] 0.02 10*3/uL Low 0.05-0.50 [facility] Comment on above: Performed By: #### C MPX, CBCWD, PLCON #### [address] [place] [address] Graduate Fellow: Kemal Waterman MD Eosinophils/100 WBC (Bld) 0 % Normal 0-6 [facility] Comment on above: Performed By: #### C MPX, CBCWD, PLCON #### [place] [address] Graduate Fellow: Kemal Waterman MD Erythrocyte distribution width (RBC) [Ratio] 20.0 % High 11.5-15.0 [facility] Comment on above: Performed By: #### C MPX, CBCWD, PLCON #### [place] [address] Graduate Fellow: Kemal Waterman MD Hematocrit (Bld) [Volume fraction] 28.1 % Low 37.0-54.0 [facility] Comment on above: Performed By: #### C MPX, CBCWD, PLCON #### [address] [place] [address] Graduate Fellow: Kemal Waterman MD Hemoglobin (Bld) [Mass/Vol] 9.2 g/dL Low 12.5-16.5 [facility] Comment on above: Performed By: #### C MPX, CBCWD, PLCON #### [address] [place] [address] Graduate Fellow: Keaml Waterman MD Immature granulocytes/100 WBC (Bld) 1 % Normal 0.0-5.0 [facility] Comment on above: Performed By: #### C MPX, CBCWD, PLCON #### [address] [place] [address] Graduate Fellow: Kemal Waterman MD Lymphocytes (Bld) [#/Vol] 0.90 10*3/uL Low 1.50-4.00 [facility] Comment on above: Performed By: #### C MPX, CBCWD, PLCON #### [address] [place] [address] Graduate Fellow: Kemal Waterman MD Lymphocytes/100 WBC (Bld) 15 % Low 20.0-42.0 [facility] Comment on above: Performed By: #### C MPX, CBCWD, PLCON #### [address] [place] [address] Graduate Fellow: Kemal Waterman MD MCH (RBC) [Entitic mass] 31.8 pg Normal 26.0-35.0 [facility] Comment on above: Performed By: #### C MPX, CBCWD, PLCON #### [address] [place] [address] Graduate Fellow: Kemal Waterman MD MCHC (RBC) [Mass/Vol] 32.7 g/dL Normal 32.0-34.5 [facility] Comment on above: Performed By: #### C MPX, CBCWD, PLCON #### [address] [place] [address] Graduate Fellow: Kemal Waterman MD MCV (RBC) [Entitic vol] 97.2 fL Normal 80.0-99.9 [facility] Comment on above: Performed By: #### C MPX, CBCWD, PLCON #### [place] [address] Graduate Fellow: Kemal Waterman MD Monocytes (Bld) [#/Vol] 0.84 10*3/uL Normal 0.10-0.95 [facility] Comment on above: Performed By: #### C MPX, CBCWD, PLCON #### [place] [address] Graduate Fellow: Kemal Waterman MD Monocytes/100 WBC (Bld) 14 % High 2.0-12.0 [facility] Comment on above: Performed By: #### C MPX, CBCWD, PLCON #### [place] [address] Graduate Fellow: Kemal Waterman MD Neutrophil (Seg) 71 % Normal 43.0-80.0 [facility] Comment on above: Performed By: #### C MPX, CBCWD, PLCON #### [address] [address] Graduate Fellow: Kemal Waterman MD Platelet mean volume (Bld) [Entitic vol] 10.5 fL Normal 7.0-12.0 [facility] Comment on above: Performed By: #### C MPX, CBCWD, PLCON #### [address] [place] [address] Graduate Fellow: Kemal Waterman MD Platelet, Fluoresc. 49 k/uL Low 130-450 [facility] Comment on above: Performed By: #### C MPX, CBCWD, PLCON #### [address] [place] [address] Graduate Fellow: Kemal Waterman MD RBC (Bld) [#/Vol] 2.89 10*6/uL Low 3.80-5.80 [facility] Comment on above: Performed By: #### C MPX, CBCWD, PLCON #### [address] [place] [address] Graduate Fellow: Kemal Waterman MD WBC (Bld) [#/Vol] 6.1 10*3/uL Normal 4.5-11.5 [facility] Comment on above: Performed By: #### C MPX, CBCWD, PLCON #### [address] [place] [address] Graduate Fellow: Kemal Waterman MD Comp Metabolic Pr/rfx MGon 0 - Albumin [Mass/Vol] 3.0 g/dL Low 3.5-5.2 [facility] Comment on above: Performed By: #### C MPX, CBCWD, PLCON #### [address] [place] [address] Graduate Fellow: Kemal Waterman MD Alkaline Phos 127 U/L Normal 40-129 [facility] Comment on above: Performed By: #### C MPX, CBCWD, PLCON #### [address] [place] [address] Graduate Fellow: Kemal Waterman MD ALT [Catalytic activity/Vol] 26 U/L Normal 0-40 [facility] Comment on above: Performed By: #### C MPX, CBCWD, PLCON #### [address] [place] [address] Graduate Fellow: Kemal Waterman MD Anion gap [Moles/Vol] 10 mmol/L Normal 7-16 [facility] Comment on above: Performed By: #### C MPX, CBCWD, PLCON #### [address] [place] [address] Graduate Fellow: Kemal Waterman MD AST [Catalytic activity/Vol] 78 U/L High 0-39 [facility] Comment on above: Performed By: #### C MPX, CBCWD, PLCON #### [address] [place] [address] Graduate Fellow: Kemal Waterman MD Bilirubin [Mass/Vol] 2.7 mg/dL High 0.0-1.2 [facility] Comment on above: Performed By: #### C MPX, CBCWD, PLCON #### [address] [place] [address] Graduate Fellow: Kemal Waterman MD Calcium [Mass/Vol] 7.6 mg/dL Low 8.6-10.2 [facility] Comment on above: Performed By: #### C MPX, CBCWD, PLCON #### [address] [place] [address] Graduate Fellow: Kemal Waterman MD Chloride [Moles/Vol] 99 mmol/L Normal 98-107 [facility] Comment on above: Performed By: #### C MPX, CBCWD, PLCON #### [address] [place] [address] Graduate Fellow: Kemal Waterman MD CO2 [Moles/Vol] 23 mmol/L Normal 22-29 [facility] Comment on above: Performed By: #### C MPX, CBCWD, PLCON #### [address] [place] [address] Graduate Fellow: Kemal Waterman MD Creatinine [Mass/Vol] 0.8 mg/dL Normal 0.70-1.20 [facility] Comment on above: Performed By: #### C MPX, CBCWD, PLCON #### [address] [place] [address] Graduate Fellow: Kemal Waterman MD GFR/1.73 sq M.predicted among non-blacks MDRD (S/P/Bld) [Vol rate/Area] mL/min/{1.73_m2} Normal >60 [facility] Comment on above: Result Comment: These results [...] By: #### C MPX, CBCWD, PLCON #### [address] [place] [address] Graduate Fellow: eKmal Waterman MD Glucose [Mass/Vol] 108 mg/dL High 74-99 [facility] Comment on above: Performed By: #### C MPX, CBCWD, PLCON #### [address] [place] [address] Graduate Fellow: Kemal Waterman MD Potassium [Moles/Vol] 3.7 mmol/L Normal 3.5-5.0 [facility] Comment on above: Performed By: #### C MPX, CBCWD, PLCON #### [address] [place], [place] [id number] Graduate Fellow: Kemal Waterman MD Protein [Mass/Vol] 5.8 g/dL Low 6.4-8.3 [facility] Comment on above: Performed By: #### C MPX, CBCWD, PLCON #### [address] [place] [address] Graduate Fellow: Kemal Waterman MD Sodium [Moles/Vol] 132 mmol/L Normal 132-146 [facility] Comment on above: Performed By: #### C MPX, CBCWD, PLCON #### [address] [place] [address] Graduate Fellow: Kemal Waterman MD Urea nitrogen [Mass/Vol] 13 mg/dL Normal 6-20 [facility] Comment on above: Performed By: #### C MPX, CBCWD, PLCON #### [address] [place], [place] [id number] Graduate Fellow: Kemal Waterman MD Comprehensive Metabolic Pane l w/ Reflex to MGon 07-30-2023 Albumin [Mass/Vol] 3.0 g/dL Low 3.5 - 5.2 g/dL [facility] ALP [Catalytic activity/Vol] 127 U/L 40 - 129 U/L [facility] ALT [Catalytic activity/Vol] 26 U/L 0 - 40 U/L [facility] Anion gap [Moles/Vol] 10 mmol/L 7 - 16 mmol/L [facility] AST [Catalytic activity/Vol] 78 U/L High 0 - 39 U/L [facility] Bilirubin [Mass/Vol] 2.7 mg/dL High 0.0 - 1 .2 mg/dL [facility] Calcium [Mass/Vol] 7.6 mg/dL Low 8.6 - 10. 2 mg/dL [facility] Chloride [Moles/Vol] 99 mmol/L 98 - 10 7 mmol/L [facility] CO2 [Moles/Vol] 23 mmol/L 22 - 29 mmol/L [facility] Creatinine [Mass/Vol] 0.8 mg/dL 0.70 - 1.20 mg/dL [facility] GFR/1.73 sq M.predicted MDRD (S/P/Bld) [Vol rate/Area] - PINF [facility] Comment on above: These results [...] 108 mg/dL High 74 - 99 mg/dL [facility] Interpretation and review of laboratory results Abnormal [facility] Potassium [Moles/Vol] 3.7 mmol/L 3.5 - 5.0 mmol/L [facility] Protein [Mass/Vol] 5.8 g/dL Low 6.4 - 8.3 g/dL [facility] Sodium [Moles/Vol] 132 mmol/L 132 - 146 mmol/L [facility] Urea nitrogen [Mass/Vol] 13 mg/dL 6 - 20 mg/dL [facility] Platelet Confirmationon 07-17 Platelet Confirmation CONFIRMED Normal [facility] Comment on above: Performed By: #### C MPX, CBCWD, PLCON #### [facility] [id number] Graduate Fellow: Kemal Waterman MD Platelet Confirmation CONFIRMED [facility] Ammoniaon 07-29-2023 Ammonia (P) [Moles/Vol] 71 umol/L High 16.0-60.0 [facility] Comment on above: Performed By: #### C MPX, CBCWD, PLCON #### [facility] [address] [place] [address] Graduate Fellow: Kemal Waterman MD Ammonia (P) [Moles/Vol] 71 umol/L High 16.0 - 60.0 umol/L [facility] Interpretation and review of laboratory results Abnormal [facility] CBC with Auto Differentialon 07-29-2023 Basophils (Bld) [#/Vol] 0.00 10*3/uL [facility] Basophils/100 WBC (Bld) 0 % 0.0 - 2.0 % [facility] Eosinophils (Bld) [#/Vol] 0.06 10*3/uL [facility] Eosinophils/100 WBC (Bld) 1 % 0 - 6 % [facility] Erythrocyte distribution width (RBC) [Ratio] 20.4 % High 11.5 - 15.0 % [facility] Hematocrit (Bld) [Volume fraction] 31.2 % Low 37.0 - 54.0 % [facility] Hemoglobin (Bld) [Mass/Vol] 10.2 g/dL Low 12.5 - 16.5 g/dL [facility] Interpretation and review of laboratory results Abnormal [facility] Lymphocytes/100 WBC (Bld) 1 % Low 20.0 - 42.0 % [facility] Lymphocytes/100 WBC (Bld) 0.06 % Low [facility] MCH (RBC) [Entitic mass] 32.0 pg 26.0 - 35.0 pg [facility] MCHC (RBC) [Mass/Vol] 32.7 g/dL 32.0 - 34.5 g/dL [facility] MCV (RBC) [Entitic vol] 97.8 fL 80.0 - 99.9 fL [facility] Monocytes/100 WBC (Bld) 7 % 2.0 - 12.0 % [facility] Monocytes/100 WBC (Bld) 0.51 % [facility] Neutrophils/100 WBC (Bld) 91 % High 43.0 - 80.0 % [facility] Platelet mean volume (Bld) [Entitic vol] 9.9 fL 7.0 - 12.0 fL [facility] Platelets (Bld) [#/Vol] 46 10*3/uL Low [facility] RBC (Bld) [#/Vol] 3.19 10*6/uL Low 3.80 - 5.8 0 m/uL [facility] RBC (Bld) [#/Vol] 2+ ANISOCYTOSIS [facility] RBC (Bld) [#/Vol] 1+ OVALOCYTES [facility] RBC (Bld) [#/Vol] 1+ POIKILOCYTOSIS [facility] RBC (Bld) [#/Vol] 1+ TARGET CELLS [facility] RBC (Bld) [#/Vol] 1+ TEARDROPS [facility] Segmented neutrophils/100 WBC (Bld) 6.67 % [facility] WBC other (Bld) [#/Vol] 7.3 [facility] CBC with Diffon 07-29-2023 Abs. Basophil 0.00 k/uL Normal 0.00-0.20 [facility] Comment on above: Performed By: #### C MPX, CBCWD, PLCON #### [place] [address] Graduate Fellow: Kemal Waterman MD Abs.Neutrophil (Seg) 6.67 k/uL Normal 1.80-7.30 [facility] Comment on above: Performed By: #### C MPX, CBCWD, PLCON #### [address] [address] Graduate Fellow: Kemal Waterman MD Basophils/100 WBC (Bld) 0 % Normal 0.0-2.0 [facility] Comment on above: Performed By: #### C MPX, CBCWD, PLCON #### [address] [place] [address] Graduate Fellow: Kemal Waterman MD Eosinophils (Bld) [#/Vol] 0.06 10*3/uL Normal 0.05-0.50 [facility] Comment on above: Performed By: #### C MPX, CBCWD, PLCON #### [place] [address] Graduate Fellow: Kemal Waterman MD Eosinophils/100 WBC (Bld) 1 % Normal 0-6 [facility] Comment on above: Performed By: #### C MPX, CBCWD, PLCON #### [address] [place] [address] Graduate Fellow: Kemal Waterman MD Lymphocytes (Bld) [#/Vol] 0.06 10*3/uL Low 1.50-4.00 [facility] Comment on above: Performed By: #### C MPX, CBCWD, PLCON #### [address] [place] [address] Graduate Fellow: Kemal Waterman MD Lymphocytes/100 WBC (Bld) 1 % Low 20.0-42.0 [facility] Comment on above: Performed By: #### C MPX, CBCWD, PLCON #### [place] [address] Graduate Fellow: Kemal Waterman MD Monocytes (Bld) [#/Vol] 0.51 10*3/uL Normal 0.10-0.95 [facility] Comment on above: Performed By: #### C MPX, CBCWD, PLCON #### [address] [place] [address] Graduate Fellow: Kemal Waterman MD Monocytes/100 WBC (Bld) 7 % Normal 2.0-12.0 [facility] Comment on above: Performed By: #### C MPX, CBCWD, PLCON #### [address] [place] [address] Graduate Fellow: Kemal Waterman MD Neutrophil (Seg) 91 % High 43.0-80.0 [facility] Comment on above: Performed By: #### C MPX, CBCWD, PLCON #### [address] [place] [address] Graduate Fellow: Kemal Waterman MD RBC morphology finding Nom (Bld) 2+ Normal [facility] Comment on above: Result Comment: ANIS OCYTOSIS 1+ OVALOCYTES 1+ POIKILOCYTOSIS 1+ TARGET CELLS 1+ TEARDROPS Performed By: #### C MPX, CBCWD, PLCON #### [address] [place] [address] Graduate Fellow: Kemal Waterman MD Erythrocyte distribution width (RBC) [Ratio] 20.4 % High 11.5-15.0 [facility] Comment on above: Performed By: #### C MPX, CBCWD, PLCON #### [address] [place] [address] Graduate Fellow: Kemal Waterman MD Hematocrit (Bld) [Volume fraction] 31.2 % Low 37.0-54.0 [facility] Comment on above: Performed By: #### C MPX, CBCWD, PLCON #### [address] [place] [address] Graduate Fellow: Kemal Waterman MD Hemoglobin (Bld) [Mass/Vol] 10.2 g/dL Low 12.5-16.5 [facility] Comment on above: Performed By: #### C MPX, CBCWD, PLCON #### [address] [address] Graduate Fellow: Kemal Waterman MD MCH (RBC) [Entitic mass] 32.0 pg Normal 26.0-35.0 [facility] Comment on above: Performed By: #### C MPX, CBCWD, PLCON #### [address] [address] Graduate Fellow: Kemal Waterman MD MCHC (RBC) [Mass/Vol] 32.7 g/dL Normal 32.0-34.5 [facility] Comment on above: Performed By: #### C MPX, CBCWD, PLCON #### [place] [address] Graduate Fellow: Kemal Waterman MD MCV (RBC) [Entitic vol] 97.8 fL Normal 80.0-99.9 [facility] Comment on above: Performed By: #### C MPX, CBCWD, PLCON #### [address] [place] [address] Graduate Fellow: Kemal Watreman MD Platelet mean volume (Bld) [Entitic vol] 9.9 fL Normal 7.0-12.0 [facility] Comment on above: Performed By: #### C MPX, CBCWD, PLCON #### [address] [place] [address] Graduate Fellow: Kemal Waterman MD Platelets (Bld) [#/Vol] 46 10*3/uL Low 130-450 [facility] Comment on above: Performed By: #### C MPX, CBCWD, PLCON #### [address] [place] [address] Graduate Fellow: Kemal Waterman MD RBC (Bld) [#/Vol] 3.19 10*6/uL Low 3.80-5.80 [facility] Comment on above: Performed By: #### C MPX, CBCWD, PLCON #### [address] [place] [address] Graduate Fellow: Kemal Waterman MD WBC (Bld) [#/Vol] 7.3 10*3/uL Normal 4.5-11.5 [facility] Comment on above: Performed By: #### C MPX, CBCWD, PLCON #### [address] [address] Graduate Fellow: Kemal Waterman MD Comp Metabolic Pr/rfx MGon 0 - Albumin [Mass/Vol] 3.1 g/dL Low 3.5-5.2 [facility] Comment on above: Performed By: #### C MPX, CBCWD, PLCON #### [address] [place] [address] Graduate Fellow: Kemal Waterman MD Alkaline Phos 144 U/L High 40-129 [facility] Comment on above: Performed By: #### C MPX, CBCWD, PLCON #### [address] [place] [address] Graduate Fellow: Kemal Waterman MD ALT [Catalytic activity/Vol] 23 U/L Normal 0-40 [facility] Comment on above: Performed By: #### C MPX, CBCWD, PLCON #### [address] [place] [address] Graduate Fellow: Kemal Waterman MD Anion gap [Moles/Vol] 11 mmol/L Normal 7-16 [facility] Comment on above: Performed By: #### C MPX, CBCWD, PLCON #### [address] [place] [address] Graduate Fellow: Kemal Waterman MD AST [Catalytic activity/Vol] 54 U/L High 0-39 [facility] Comment on above: Performed By: #### C MPX, CBCWD, PLCON #### [address] [place] [address] Graduate Fellow: Kemal Waterman MD Bilirubin [Mass/Vol] 3.3 mg/dL High 0.0-1.2 [facility] Comment on above: Performed By: #### C MPX, CBCWD, PLCON #### [address] [place] [address] Graduate Fellow: Kemal Waterman MD Calcium [Mass/Vol] 8.1 mg/dL Low 8.6-10.2 [facility] Comment on above: Performed By: #### C MPX, CBCWD, PLCON #### [address] [place] [address] Graduate Fellow: Kemal Waterman MD Chloride [Moles/Vol] 103 mmol/L Normal 98-107 [facility] Comment on above: Performed By: #### C MPX, CBCWD, PLCON #### [address] [place] [address] Graduate Fellow: Kemal Waterman MD CO2 [Moles/Vol] 23 mmol/L Normal 22-29 [facility] Comment on above: Performed By: #### C MPX, CBCWD, PLCON #### [address] [place] [address] Graduate Fellow: Kemal Waterman MD Creatinine [Mass/Vol] 0.9 mg/dL Normal 0.70-1.20 [facility] Comment on above: Performed By: #### C MPX, CBCWD, PLCON #### [address] [place] [address] Graduate Fellow: Kemal Waterman MD GFR/1.73 sq M.predicted among non-blacks MDRD (S/P/Bld) [Vol rate/Area] mL/min/{1.73_m2} Normal >60 [facility] Comment on above: Result Comment: These results [...] By: #### C MPX, CBCWD, PLCON #### [address] [place] [address] Graduate Fellow: Kemal Waterman MD Glucose [Mass/Vol] 86 mg/dL Normal 74-99 [facility] Comment on above: Performed By: #### C MPX, CBCWD, PLCON #### [address] [place] [address] Graduate Fellow: Kemal Waterman MD Potassium [Moles/Vol] 4.2 mmol/L Normal 3.5-5.0 [facility] Comment on above: Performed By: #### C MPX, CBCWD, PLCON #### [address] [place], [place] [id number] Graduate Fellow: Kemal Waterman MD Protein [Mass/Vol] 6.0 g/dL Low 6.4-8.3 [facility] Comment on above: Performed By: #### C MPX, CBCWD, PLCON #### [address] [place], [place] [id number] Graduate Fellow: Kemal Waterman MD Sodium [Moles/Vol] 137 mmol/L Normal 132-146 [facility] Comment on above: Performed By: #### C MPX, CBCWD, PLCON #### [address] [place], [place] [id number] Graduate Fellow: Kemal Waterman MD Urea nitrogen [Mass/Vol] 13 mg/dL Normal 6-20 [facility] Comment on above: Performed By: #### C MPX, CBCWD, PLCON #### [address] [place] [id number] Graduate Fellow: Kemal Waterman MD Comprehensive Metabolic Pane l w/ Reflex to MGon 07-29-2023 Albumin [Mass/Vol] 3.1 g/dL Low 3.5 - 5.2 g/dL [facility] ALP [Catalytic activity/Vol] 144 U/L High 40 - 129 U/L [facility] ALT [Catalytic activity/Vol] 23 U/L 0 - 40 U/L [facility] Anion gap [Moles/Vol] 11 mmol/L 7 - 16 mmol/L [facility] AST [Catalytic activity/Vol] 54 U/L High 0 - 39 U/L [facility] Bilirubin [Mass/Vol] 3.3 mg/dL High 0.0 - 1 .2 mg/dL [facility] Calcium [Mass/Vol] 8.1 mg/dL Low 8.6 - 10. 2 mg/dL [facility] Chloride [Moles/Vol] 103 mmol/L 98 - 10 7 mmol/L [facility] CO2 [Moles/Vol] 23 mmol/L 22 - 29 mmol/L [facility] Creatinine [Mass/Vol] 0.9 mg/dL 0.70 - 1.20 mg/dL [facility] GFR/1.73 sq M.predicted MDRD (S/P/Bld) [Vol rate/Area] - PINF [facility] Comment on above: These results [...] [Mass/Vol] 86 mg/dL 74 - 99 mg/dL [facility] Interpretation and review of laboratory results Abnormal [facility] Potassium [Moles/Vol] 4.2 mmol/L 3.5 - 5.0 mmol/L [facility] Protein [Mass/Vol] 6.0 g/dL Low 6.4 - 8.3 g/dL [facility] Sodium [Moles/Vol] 137 mmol/L 132 - 146 mmol/L [facility] Urea nitrogen [Mass/Vol] 13 mg/dL 6 - 20 mg/dL [facility] Platelet Confirmationon 07-17 Platelet Confirmation CONFIRMED Normal [facility] Comment on above: Performed By: #### C MPX, CBCWD, PLCON #### [place] [address] Graduate Fellow: Kemal Waterman MD Platelet Confirmation CONFIRMED [facility] Resp Viral Panelon 4 Adenovirus Not detected Normal [facility] Comment on above: Performed By: #### A MON #### [place] [id number] Graduate Fellow: Kemal Waterman MD [facility].parapertussis Not detected Normal [facility] Comment on above: Performed By: #### A MON #### [address] [place] [address] Graduate Fellow: Kemal Waterman MD Bordetella pertussis Not detected Normal [facility] Comment on above: Performed By: #### A MON #### [address] [place] [address] Graduate Fellow: Kemal Waterman MD Chlamyd.pneumoniae Not detected Normal [facility] Comment on above: Performed By: #### A MON #### [address] [address] Graduate Fellow: Kemal Waterman MD Coronavirus 229E Not detected Normal [facility] Comment on above: Performed By: #### A MON #### [address] [place] [address] Graduate Fellow: Kemal Waterman MD Coronavirus HKU1 Not detected Normal [facility] Comment on above: Performed By: #### A MON #### [address] [place] [address] Graduate Fellow: Kemal Waterman MD Coronavirus NL63 Not detected Normal [facility] Comment on above: Performed By: #### A MON #### [address] [place] [address] Graduate Fellow: Kemal Waterman MD Coronavirus OC43 Not detected Normal [facility] Comment on above: Performed By: #### A MON #### [address] [place] [address] Graduate Fellow: Kemal Waterman MD Human Metapneumo Not detected Normal [facility] Comment on above: Performed By: #### A MON #### [place] [address] [place] [address] Graduate Fellow: Kemal Waterman MD Influenza A Not detected Normal [facility] Comment on above: Performed By: #### A MON #### [address] [place] [address] Graduate Fellow: Kemal Waterman MD Influenza B Not detected Normal [facility] Comment on above: Performed By: #### A MON #### [address] [place] [address] Graduate Fellow: Kemal Waterman MD Mycoplas.pneumoniae Not detected Normal [facility] Comment on above: Result Comment: Perf ormed by multiplexed nucleic acid assay. Performed By: #### A MON #### [address] [place] [address] Graduate Fellow: Kemal Waterman MD Parainfluenza 1 Not detected Normal [facility] Comment on above: Performed By: #### A MON #### [address] [place] [address] Graduate Fellow: Kemal Waterman MD Parainfluenza 2 Not detected Normal [facility] Comment on above: Performed By: #### A MON #### [address] [place] [address] Graduate Fellow: Kemal Waterman MD Parainfluenza 3 Not detected Normal [facility] Comment on above: Performed By: #### A MON #### [address] [place] [address] Graduate Fellow: Kemal Waterman MD Parainfluenza 4 Not detected Normal [facility] Comment on above: Performed By: #### A MON #### [address] [place] [address] Graduate Fellow: Kemal Waterman MD Resp Syncytial Virus Not detected Normal [facility] Comment on above: Performed By: #### A MON #### [address] [place] [address] Graduate Fellow: Kemal Waterman MD Rhino/Enterovirus Not detected Normal [facility] Comment on above: Performed By: #### A MON #### [address] [place] [address] Graduate Fellow: Kemal Waterman MD SARS-CoV-2 (COVID-19) RNA FOX+probe Ql (Unsp spec) Detected Abnormal [facility] Comment on above: Performed By: #### A MON #### [address] [address] Graduate Fellow: Kemal Waterman MD Source: .NASOPHARYNGEAL SWAB Normal [facility] Comment on above: Performed By: #### A MON #### [address] [place] [address] Graduate Fellow: Kemal Waterman MD Respiratory Panel, Molecular , with COVID-19 (Restricted: peds pts or suitable admitted adults)on 07-29-2023 Adenovirus DNA FOX+non-probe Ql (Nph) Not detected Not Detected [facility] B. parapertussis [id number] DNA FOX+non-probe Ql (Nph) Not detected Not Detected [facility] B. pertussis DNA FOX+probe Ql (Unsp spec) Not detected Not Detected [facility] C. pneumoniae DNA FOX+non-probe Ql (Nph) Not detected Not Detected [facility] FLUAV RNA FOX+non-probe Ql (Nph) Not detected Not Detected [facility] FLUBV RNA FOX+non-probe Ql (Nph) Not detected Not Detected [facility] HCoV 229E RNA FOX+non-probe Ql (Nph) Not detected Not Detected [facility] HCoV HKU1 RNA FOX+non-probe Ql (Nph) Not detected Not Detected [facility] HCoV NL63 RNA FOX+non-probe Ql (Nph) Not detected Not Detected [facility] HCoV OC43 RNA FOX+non-probe Ql (Nph) Not detected Not Detected [facility] hMPV RNA FOX+non-probe Ql (Nph) Not detected Not Detected [facility] Interpretation and review of laboratory results Abnormal [facility] M. pneumoniae DNA FOX+non-probe Ql (Nph) Not detected Not Detected [facility] Comment on above: Performed by [employer] nucleic acid assay. Parainfluenza virus 1 RNA FOX+non-probe Ql (Nph) Not detected Not Detected [facility] Parainfluenza virus 2 RNA FOX+non-probe Ql (Nph) Not detected Not Detected [facility] Parainfluenza virus 3 RNA FOX+non-probe Ql (Nph) Not detected Not Detected [facility] Parainfluenza virus 4 RNA FOX+non-probe Ql (Nph) Not detected Not Detected [facility] Rhinovirus+Enteroviru s RNA FOX+non-probe Ql (Nph) Not detected Not Detected [facility] RSV RNA FOX+non-probe Ql (Nph) Not detected Not Detected [facility] SARS-CoV-2 (COVID-19) RNA FOX+non-probe Ql (Nph) Detected Abnormal Not Detected [facility] Specimen Description .NASOPHARYNGEAL SWAB [facility] Ammoniaon 07-28-2023 Ammonia (P) [Moles/Vol] 148 umol/L High 16.0-60.0 [facility] Comment on above: Performed By: #### C MPX, CBCWD, PLCON #### [facility] [address] [facility] [place] [address] Graduate Fellow: Kemal Waterman MD Ammonia (P) [Moles/Vol] 148 umol/L High 16.0 - 60.0 umol/L [facility] Interpretation and review of laboratory results Abnormal [facility] CBC with Auto Differentialon 07-28-2023 Basophils (Bld) [#/Vol] 0.04 10*3/uL [facility] Basophils/100 WBC (Bld) 1 % 0.0 - 2.0 % [facility] Eosinophils (Bld) [#/Vol] 0.23 10*3/uL [facility] Eosinophils/100 WBC (Bld) 5 % 0 - 6 % [facility] Erythrocyte distribution width (RBC) [Ratio] 21.0 % High 11.5 - 15.0 % [facility] Hematocrit (Bld) [Volume fraction] 32.5 % Low 37.0 - 54.0 % [facility] Hemoglobin (Bld) [Mass/Vol] 10.4 g/dL Low 12.5 - 16.5 g/dL [facility] Immature granulocytes (Bld) [#/Vol] [facility] Immature granulocytes/100 WBC (Bld) 0 % 0.0 - 5.0 % [facility] Interpretation and review of laboratory results Abnormal [facility] Lymphocytes/100 WBC (Bld) 26 % 20.0 - 42.0 % [facility] Lymphocytes/100 WBC (Bld) 1.25 % Low [facility] MCH (RBC) [Entitic mass] 31.7 pg 26.0 - 35.0 pg [facility] MCHC (RBC) [Mass/Vol] 32.0 g/dL 32.0 - 34.5 g/dL [facility] MCV (RBC) [Entitic vol] 99.1 fL 80.0 - 99.9 fL [facility] Monocytes/100 WBC (Bld) 13 % High 2.0 - 12.0 % [facility] Monocytes/100 WBC (Bld) 0.61 % [facility] Neutrophils/100 WBC (Bld) 56 % 43.0 - 80.0 % [facility] Platelet mean volume (Bld) [Entitic vol] 11.6 fL 7.0 - 12.0 fL [facility] Platelets (Bld) [#/Vol] 60 10*3/uL Low [facility] RBC (Bld) [#/Vol] 3.28 10*6/uL Low 3.80 - 5.8 0 m/uL [facility] Segmented neutrophils/100 WBC (Bld) 2.72 % [facility] WBC other (Bld) [#/Vol] 4.9 [facility] CBC with Diffon 07-28-2023 Abs. Basophil 0.04 k/uL Normal 0.00-0.20 [facility] Comment on above: Performed By: #### C MPX, CBCWD, PLCON #### [place] [address] Graduate Fellow: Kemal Waterman MD Abs.Imm.Granulocyte <0.03 Normal 0.00-0.58 [facility] Comment on above: Performed By: #### C MPX, CBCWD, PLCON #### [place] [address] Graduate Fellow: Kemal Waterman MD Abs.Neutrophil (Seg) 2.72 k/uL Normal 1.80-7.30 [facility] Comment on above: Performed By: #### C MPX, CBCWD, PLCON #### [place] [address] Graduate Fellow: Kemal Waterman MD Basophils/100 WBC (Bld) 1 % Normal 0.0-2.0 [facility] Comment on above: Performed By: #### C MPX, CBCWD, PLCON #### [address] [address] Graduate Fellow: Kemal Waterman MD Eosinophils (Bld) [#/Vol] 0.23 10*3/uL Normal 0.05-0.50 [facility] Comment on above: Performed By: #### C MPX, CBCWD, PLCON #### [place] [address] Graduate Fellow: Kemal Waterman MD Eosinophils/100 WBC (Bld) 5 % Normal 0-6 [facility] Comment on above: Performed By: #### C MPX, CBCWD, PLCON #### [place] [address] Graduate Fellow: Kemal Waterman MD Immature granulocytes/100 WBC (Bld) 0 % Normal 0.0-5.0 [facility] Comment on above: Performed By: #### C MPX, CBCWD, PLCON #### [place] [address] Graduate Fellow: Kemal Waterman MD Lymphocytes (Bld) [#/Vol] 1.25 10*3/uL Low 1.50-4.00 [facility] Comment on above: Performed By: #### C MPX, CBCWD, PLCON #### [place] [address] Graduate Fellow: Kemal Waterman MD Lymphocytes/100 WBC (Bld) 26 % Normal 20.0-42.0 [facility] Comment on above: Performed By: #### C MPX, CBCWD, PLCON #### [place] [address] Graduate Fellow: Kemal Waterman MD Monocytes (Bld) [#/Vol] 0.61 10*3/uL Normal 0.10-0.95 [facility] Comment on above: Performed By: #### C MPX, CBCWD, PLCON #### [address] [place] [address] Graduate Fellow: Kemal Waterman MD Monocytes/100 WBC (Bld) 13 % High 2.0-12.0 [facility] Comment on above: Performed By: #### C MPX, CBCWD, PLCON #### [address] [place] [address] Graduate Fellow: Kemal Waterman MD Neutrophil (Seg) 56 % Normal 43.0-80.0 [facility] Comment on above: Performed By: #### C MPX, CBCWD, PLCON #### [address] [place] [address] Graduate Fellow: Kemal Waterman MD Erythrocyte distribution width (RBC) [Ratio] 21.0 % High 11.5-15.0 [facility] Comment on above: Performed By: #### C MPX, CBCWD, PLCON #### [address] [place] [address] Graduate Fellow: Kemal Waterman MD Hematocrit (Bld) [Volume fraction] 32.5 % Low 37.0-54.0 [facility] Comment on above: Performed By: #### C MPX, CBCWD, PLCON #### [address] [place] [address] Graduate Fellow: Kemal Waterman MD Hemoglobin (Bld) [Mass/Vol] 10.4 g/dL Low 12.5-16.5 [facility] Comment on above: Performed By: #### C MPX, CBCWD, PLCON #### [place] [address] Graduate Fellow: Kemal Waterman MD MCH (RBC) [Entitic mass] 31.7 pg Normal 26.0-35.0 [facility] Comment on above: Performed By: #### C MPX, CBCWD, PLCON #### [address] [place] [address] Graduate Fellow: Kemal Waterman MD MCHC (RBC) [Mass/Vol] 32.0 g/dL Normal 32.0-34.5 [facility] Comment on above: Performed By: #### C MPX, CBCWD, PLCON #### [address] [place] [address] Graduate Fellow: Kemal Waterman MD MCV (RBC) [Entitic vol] 99.1 fL Normal 80.0-99.9 [facility] Comment on above: Performed By: #### C MPX, CBCWD, PLCON #### [address] [place] [address] Graduate Fellow: Kemal Waterman MD Platelet mean volume (Bld) [Entitic vol] 11.6 fL Normal 7.0-12.0 [facility] Comment on above: Performed By: #### C MPX, CBCWD, PLCON #### [address] [place] [address] Graduate Fellow: Kemal Waterman MD Platelets (Bld) [#/Vol] 60 10*3/uL Low 130-450 [facility] Comment on above: Performed By: #### C MPX, CBCWD, PLCON #### [address] [address] Graduate Fellow: Kemal Waterman MD RBC (Bld) [#/Vol] 3.28 10*6/uL Low 3.80-5.80 [facility] Comment on above: Performed By: #### C MPX, CBCWD, PLCON #### [place] [address] Graduate Fellow: Kemal Waterman MD WBC (Bld) [#/Vol] 4.9 10*3/uL Normal 4.5-11.5 [facility] Comment on above: Performed By: #### C MPX, CBCWD, PLCON #### [address] [address] Graduate Fellow: Kemal Waterman MD Comp Metabolic Pr/rfx MGon 0 - Albumin [Mass/Vol] 3.0 g/dL Low 3.5-5.2 [facility] Comment on above: Performed By: #### C MPX, CBCWD, PLCON #### [address] [address] Graduate Fellow: Kemal Waterman MD Alkaline Phos 218 U/L High 40-129 [facility] Comment on above: Performed By: #### C MPX, CBCWD, PLCON #### [address] [address] Graduate Fellow: Kemal Waterman MD ALT [Catalytic activity/Vol] 21 U/L Normal 0-40 [facility] Comment on above: Performed By: #### C MPX, CBCWD, PLCON #### [address] [address] Graduate Fellow: Kemal Waterman MD Anion gap [Moles/Vol] 10 mmol/L Normal 7-16 [facility] Comment on above: Performed By: #### C MPX, CBCWD, PLCON #### [address] [address] Graduate Fellow: Kemal Waterman MD AST [Catalytic activity/Vol] 51 U/L High 0-39 [facility] Comment on above: Performed By: #### C MPX, CBCWD, PLCON #### [address] [place] [address] Graduate Fellow: Kemal Waterman MD Bilirubin [Mass/Vol] 2.1 mg/dL High 0.0-1.2 [facility] Comment on above: Performed By: #### C MPX, CBCWD, PLCON #### [address] [place] [address] Graduate Fellow: Kemal Waterman MD Calcium [Mass/Vol] 7.6 mg/dL Low 8.6-10.2 [facility] Comment on above: Performed By: #### C MPX, CBCWD, PLCON #### [address] [address] Graduate Fellow: Kemal Waterman MD Chloride [Moles/Vol] 102 mmol/L Normal 98-107 [facility] Comment on above: Performed By: #### C MPX, CBCWD, PLCON #### [address] [address] Graduate Fellow: Kemal Waterman MD CO2 [Moles/Vol] 24 mmol/L Normal 22-29 [facility] Comment on above: Performed By: #### C MPX, CBCWD, PLCON #### [address] [address] Graduate Fellow: Kemal Waterman MD Creatinine [Mass/Vol] 0.8 mg/dL Normal 0.70-1.20 [facility] Comment on above: Performed By: #### C MPX, CBCWD, PLCON #### [address] [address] Graduate Fellow: Kemal Waterman MD GFR/1.73 sq M.predicted among non-blacks MDRD (S/P/Bld) [Vol rate/Area] mL/min/{1.73_m2} Normal >60 [facility] Comment on above: Result Comment: These results [...] By: #### C MPX, CBCWD, PLCON #### [address] [address] Graduate Fellow: Kemal Waterman MD Glucose [Mass/Vol] 90 mg/dL Normal 74-99 [facility] Comment on above: Performed By: #### C MPX, CBCWD, PLCON #### [address] [place] [address] Graduate Fellow: Kemal Waterman MD Potassium [Moles/Vol] 4.2 mmol/L Normal 3.5-5.0 [facility] Comment on above: Performed By: #### C MPX, CBCWD, PLCON #### [address] [place] [address] Graduate Fellow: Kemal Waterman MD Protein [Mass/Vol] 5.7 g/dL Low 6.4-8.3 [facility] Comment on above: Performed By: #### C MPX, CBCWD, PLCON #### [address] [address] Graduate Fellow: Kemal Waterman MD Sodium [Moles/Vol] 136 mmol/L Normal 132-146 [facility] Comment on above: Performed By: #### C MPX, CBCWD, PLCON #### [facility] [address] [place] [address] Graduate Fellow: Kemal Waterman MD Urea nitrogen [Mass/Vol] 10 mg/dL Normal 6-20 [facility] Comment on above: Performed By: #### C MPX, CBCWD, PLCON #### [facility] [address] [place] [address] Graduate Fellow: Kemal Waterman MD Comprehensive Metabolic Pane l w/ Reflex to MGon 07-28-2023 Albumin [Mass/Vol] 3.0 g/dL Low 3.5 - 5.2 g/dL [facility] ALP [Catalytic activity/Vol] 218 U/L High 40 - 129 U/L [facility] ALT [Catalytic activity/Vol] 21 U/L 0 - 40 U/L [facility] Anion gap [Moles/Vol] 10 mmol/L 7 - 16 mmol/L [facility] AST [Catalytic activity/Vol] 51 U/L High 0 - 39 U/L [facility] Bilirubin [Mass/Vol] 2.1 mg/dL High 0.0 - 1 .2 mg/dL [facility] Calcium [Mass/Vol] 7.6 mg/dL Low 8.6 - 10. 2 mg/dL [facility] Chloride [Moles/Vol] 102 mmol/L 98 - 10 7 mmol/L [facility] CO2 [Moles/Vol] 24 mmol/L 22 - 29 mmol/L [facility] Creatinine [Mass/Vol] 0.8 mg/dL 0.70 - 1.20 mg/dL [facility] GFR/1.73 sq M.predicted MDRD (S/P/Bld) [Vol rate/Area] - PINF [facility] Comment on above: These results [...] [Mass/Vol] 90 mg/dL 74 - 99 mg/dL [facility] Interpretation and review of laboratory results Abnormal [facility] Potassium [Moles/Vol] 4.2 mmol/L 3.5 - 5.0 mmol/L [facility] Protein [Mass/Vol] 5.7 g/dL Low 6.4 - 8.3 g/dL [facility] Sodium [Moles/Vol] 136 mmol/L 132 - 146 mmol/L [facility] Urea nitrogen [Mass/Vol] 10 mg/dL 6 - 20 mg/dL [facility] Platelet Confirmationon 07-17 Platelet Confirmation CONFIRMED Normal [facility] Comment on above: Performed By: #### C MPX, CBCWD, PLCON #### [address] [address] Graduate Fellow: Kemal Waterman MD Platelet Confirmation CONFIRMED [facility] TYPE AND SCREENon 07-28-2023 ABO and Rh group Nom (Bld) Blood group O Rh(D) positive [facility] Arm Band Number [id number] [facility] Blood Bank Sample Expiration 07/30/2023,2359 [facility] Blood group antibodies identified Nom Negative [facility] Type + Screenon 07-28-2023 Type + Screen Sample Expiration 07/30/2023,2359 Arm Band Number [id number] ABO/Rh(D) O POSITIVE Antibody Screen NEGATIVE Normal [facility] Comment on above: Performed By: #### C MPX, CBCWD, PLCON #### [address] [address] Graduate Fellow: Kemal Waterman MD CBC with Auto Differentialon 07-27-2023 Basophils (Bld) [#/Vol] 0.04 10*3/uL [employer] [facility] Basophils/100 WBC (Bld) 1 % 0.0 - 2.0 % [employer] [facility] Eosinophils (Bld) [#/Vol] 0.23 10*3/uL [employer] [facility] Eosinophils/100 WBC (Bld) 5 % 0 - 6 % [employer] [facility] Erythrocyte distribution width (RBC) [Ratio] 20.5 % High 11.5 - 15.0 % [employer] [facility] Hematocrit (Bld) [Volume fraction] 32.1 % Low 37.0 - 54.0 % [employer] [facility] Hemoglobin (Bld) [Mass/Vol] 10.3 g/dL Low 12.5 - 16.5 g/dL [employer] [facility] Immature granulocytes (Bld) [#/Vol] [employer] [facility] Immature granulocytes/100 WBC (Bld) 0 % 0.0 - 5.0 % [facility] Interpretation and review of laboratory results Abnormal [employer] [facility] Lymphocytes/100 WBC (Bld) 25 % 20.0 - 42.0 % [employer] [facility] Lymphocytes/100 WBC (Bld) 1.20 % Low [employer] [facility] MCH (RBC) [Entitic mass] 31.5 pg 26.0 - 35.0 pg [employer] [facility] MCHC (RBC) [Mass/Vol] 32.1 g/dL 32.0 - 34.5 g/dL [employer] [facility] MCV (RBC) [Entitic vol] 98.2 fL 80.0 - 99.9 fL [employer] [facility] Monocytes/100 WBC (Bld) 13 % High 2.0 - 12.0 % [employer] [facility] Monocytes/100 WBC (Bld) 0.62 % [employer] [facility] Neutrophils/100 WBC (Bld) 56 % 43.0 - 80.0 % [employer] [facility] Platelet mean volume (Bld) [Entitic vol] 10.1 fL 7.0 - 12.0 fL [employer] [facility] Platelets (Bld) [#/Vol] 53 10*3/uL Low [employer] [facility] RBC (Bld) [#/Vol] 3.27 10*6/uL Low 3.80 - 5.8 0 m/uL [employer] [facility] RBC (Bld) [#/Vol] 3+ ANISOCYTOSIS [facility] RBC (Bld) [#/Vol] 1+ OVALOCYTES [facility] RBC (Bld) [#/Vol] 1+ POIKILOCYTOSIS [facility] RBC (Bld) [#/Vol] 1+ POLYCHROMASIA [facility] RBC (Bld) [#/Vol] 1+ TARGET CELLS [facility] RBC (Bld) [#/Vol] 1+ TEARDROPS [facility] Segmented neutrophils/100 WBC (Bld) 2.62 % [facility] WBC other (Bld) [#/Vol] 4.7 [facility] CBC with Diffon 07-27-2023 RBC morphology finding Nom (Bld) 3+ Normal [facility] Comment on above: Result Comment: ANIS OCYTOSIS 1+ OVALOCYTES 1+ POIKILOCYTOSIS 1+ POLYCHROMASIA 1+ TARGET CELLS 1+ TEARDROPS Performed By: #### C MPX, CBCWD, PLCON #### [place] [address] Graduate Fellow: Kemal Waterman MD Abs. Basophil 0.04 k/uL Normal 0.00-0.20 [facility] Comment on above: Performed By: #### C MPX, CBCWD, PLCON #### [place] [address] Graduate Fellow: Kemal Waterman MD Abs.Imm.Granulocyte <0.03 Normal 0.00-0.58 [facility] Comment on above: Performed By: #### C MPX, CBCWD, PLCON #### [place] [address] Graduate Fellow: Kemal Waterman MD Abs.Neutrophil (Seg) 2.62 k/uL Normal 1.80-7.30 [facility] Comment on above: Performed By: #### C MPX, CBCWD, PLCON #### [place] [address] Graduate Fellow: Kemal Waterman MD Basophils/100 WBC (Bld) 1 % Normal 0.0-2.0 [facility] Comment on above: Performed By: #### C MPX, CBCWD, PLCON #### [address] [place] [address] Graduate Fellow: Kemal Waterman MD Eosinophils (Bld) [#/Vol] 0.23 10*3/uL Normal 0.05-0.50 [facility] Comment on above: Performed By: #### C MPX, CBCWD, PLCON #### [place] [address] Graduate Fellow: Kemal Waterman MD Eosinophils/100 WBC (Bld) 5 % Normal 0-6 [facility] Comment on above: Performed By: #### C MPX, CBCWD, PLCON #### [place] [address] Graduate Fellow: Kemal Waterman MD Immature granulocytes/100 WBC (Bld) 0 % Normal 0.0-5.0 [facility] Comment on above: Performed By: #### C MPX, CBCWD, PLCON #### [place] [address] Graduate Fellow: Kemal Waterman MD Lymphocytes (Bld) [#/Vol] 1.20 10*3/uL Low 1.50-4.00 [facility] Comment on above: Performed By: #### C MPX, CBCWD, PLCON #### [place] [address] Graduate Fellow: Kemal Waterman MD Lymphocytes/100 WBC (Bld) 25 % Normal 20.0-42.0 [facility] Comment on above: Performed By: #### C MPX, CBCWD, PLCON #### [address] [place] [address] Graduate Fellow: Kemal Waterman MD Monocytes (Bld) [#/Vol] 0.62 10*3/uL Normal 0.10-0.95 [facility] Comment on above: Performed By: #### C MPX, CBCWD, PLCON #### [place] [address] Graduate Fellow: Kemal Waterman MD Monocytes/100 WBC (Bld) 13 % High 2.0-12.0 [facility] Comment on above: Performed By: #### C MPX, CBCWD, PLCON #### [place] [address] Graduate Fellow: Kemal Waterman MD Neutrophil (Seg) 56 % Normal 43.0-80.0 [facility] Comment on above: Performed By: #### C MPX, CBCWD, PLCON #### [address] [address] Graduate Fellow: Kemal Waterman MD Erythrocyte distribution width (RBC) [Ratio] 20.5 % High 11.5-15.0 [facility] Comment on above: Performed By: #### C MPX, CBCWD, PLCON #### [address] [place] [address] Graduate Fellow: Kemal Waterman MD Hematocrit (Bld) [Volume fraction] 32.1 % Low 37.0-54.0 [facility] Comment on above: Performed By: #### C MPX, CBCWD, PLCON #### [facility] [address] [place] [address] Graduate Fellow: Kemal Waterman MD Hemoglobin (Bld) [Mass/Vol] 10.3 g/dL Low 12.5-16.5 [facility] Comment on above: Performed By: #### C MPX, CBCWD, PLCON #### [address] [place] [address] Graduate Fellow: Kemal Waterman MD MCH (RBC) [Entitic mass] 31.5 pg Normal 26.0-35.0 [facility] Comment on above: Performed By: #### C MPX, CBCWD, PLCON #### [address] [place] [address] Graduate Fellow: Kemal Waterman MD MCHC (RBC) [Mass/Vol] 32.1 g/dL Normal 32.0-34.5 [facility] Comment on above: Performed By: #### C MPX, CBCWD, PLCON #### [address] [place] [address] Graduate Fellow: Kemal Waterman MD MCV (RBC) [Entitic vol] 98.2 fL Normal 80.0-99.9 [facility] Comment on above: Performed By: #### C MPX, CBCWD, PLCON #### [address] [place] [address] Graduate Fellow: Kemal Waterman MD Platelet mean volume (Bld) [Entitic vol] 10.1 fL Normal 7.0-12.0 [facility] Comment on above: Performed By: #### C MPX, CBCWD, PLCON #### [address] [place] [address] Graduate Fellow: Kemal Waterman MD Platelets (Bld) [#/Vol] 53 10*3/uL Low 130-450 [facility] Comment on above: Performed By: #### C MPX, CBCWD, PLCON #### [place] [address] [facility] [place] [address] Graduate Fellow: Kemal Waterman MD RBC (Bld) [#/Vol] 3.27 10*6/uL Low 3.80-5.80 [facility] Comment on above: Performed By: #### C MPX, CBCWD, PLCON #### [address] [place] [address] Graduate Fellow: Kemal Waterman MD WBC (Bld) [#/Vol] 4.7 10*3/uL Normal 4.5-11.5 [facility] Comment on above: Performed By: #### C MPX, CBCWD, PLCON #### [address] [place] [address] Graduate Fellow: Kemal Waterman MD CT CERVICAL SPINE WO [...] Dania Rodas MD 07/27/23 Final result Normal [facility] Comment on above: Order Comment: Reaso n for exam:->traumaDecision Support Exception - unselect if not a suspected or confirmed emergency medical condition->Emergency Medical Condition (MA)What reading provider will be dictating this exam?->CRC CT Cervical spine WO contras ton 07-27-2023 1. No fracture or nadira int dislocation is seen. 2. Degenerative changes, as described. [facility] EXAMINATION: CT OF THE [...] There is no prevertebral soft tissue swelling. [facility] Danai Rodas MD - 07/27/2023 EXAMINATION: CT OF [...] is seen. 2. Degenerative changes, as described. [facility] CT HEAD WO CONTRASTon 2023 CT HEAD [...] Dania Rodas MD 07/27/23 Final result Normal [facility] Comment on above: Order Comment: Has a code stroke or stroke alert been called?->NoReason for exam:->TraumaDecision Support Exception - unselect if not a suspected or confirmed emergency medical condition->Emergency Medical Condition (MA)What reading provider will be dictating this exam?->CRC CT Head WO contraston 2023 No skull fracture or acute intracranial abnormality. [facility] EXAMINATION: CT OF THE [...] of the visualized skull or soft tissues. [facility] Dania Rodas MD - [...] No skull fracture or acute intracranial abnormality. [facility] CT Head WO contrastOrdered B y: Dania Rodas on 07-27-2023 [facility] Work Phone: CT LUMBAR SPINE [...] Dania Rodas MD 07/27/23 Final result Normal [facility] Comment on above: Order Comment: Reaso n [...] for further evaluation. 2. Mild degenerative changes. [facility] EXAMINATION: CT OF THE [...] SOFT TISSUES/RETROPERITONEUM: No paraspinal mass is seen. [facility] Dania Rodas MD - [...] for further evaluation. 2. Mild degenerative changes. [facility] CT THORACIC SPINE WO CONTRAS Ton 07-27-2023 [...] Dania Rodas MD 07/27/23 Final result Normal [facility] Comment on above: Order Comment: Reaso n for exam:->traumaWhat reading provider will be dictating this exam?->CRC CT Thoracic spine WO contras ton 07-27-2023 No fracture or joint dislocation. [facility] EXAMINATION: CT OF THE THORACIC [...] SOFT TISSUES: No paraspinal mass is seen. [facility] Dania Worrell MD - 07/27/2023 EXAMINATION: CT [...] seen. IMPRESSION: No fracture or joint dislocation. [facility] Comp Metabolic Profon 2023 Albumin [Mass/Vol] 3.1 g/dL Low 3.5-5.2 [facility] Comment on above: Performed By: #### C MPX, CBCWD, PLCON #### [address] [place] [address] Graduate Fellow: Kemal Waterman MD Alkaline Phos 242 U/L High 40-129 [facility] Comment on above: Performed By: #### C MPX, CBCWD, PLCON #### [address] [address] Graduate Fellow: Kemal Waterman MD ALT [Catalytic activity/Vol] 21 U/L Normal 0-40 [facility] Comment on above: Performed By: #### C MPX, CBCWD, PLCON #### [address] [place] [address] Graduate Fellow: Kemal Waterman MD Anion gap [Moles/Vol] 7 mmol/L Normal 7-16 [facility] Comment on above: Performed By: #### C MPX, CBCWD, PLCON #### [place] [address] Graduate Fellow: Kemal Waterman MD AST [Catalytic activity/Vol] 51 U/L High 0-39 [facility] Comment on above: Performed By: #### C MPX, CBCWD, PLCON #### [address] [address] Graduate Fellow: Kemal Waterman MD Bilirubin [Mass/Vol] 2.1 mg/dL High 0.0-1.2 [facility] Comment on above: Performed By: #### C MPX, CBCWD, PLCON #### [place] [address] Graduate Fellow: Kemal Waterman MD Calcium [Mass/Vol] 7.7 mg/dL Low 8.6-10.2 [facility] Comment on above: Performed By: #### C MPX, CBCWD, PLCON #### [address] [place] [address] Graduate Fellow: Kemal Waterman MD Chloride [Moles/Vol] 105 mmol/L Normal 98-107 [facility] Comment on above: Performed By: #### C MPX, CBCWD, PLCON #### [address] [place] [address] Graduate Fellow: Kemal Waterman MD CO2 [Moles/Vol] 26 mmol/L Normal 22-29 [facility] Comment on above: Performed By: #### C MPX, CBCWD, PLCON #### [address] [place] [address] Graduate Fellow: Kemal Waterman MD Creatinine [Mass/Vol] 0.8 mg/dL Normal 0.70-1.20 [facility] Comment on above: Performed By: #### C MPX, CBCWD, PLCON #### [address] [place] [address] Graduate Fellow: Kemal Waterman MD GFR/1.73 sq M.predicted among non-blacks MDRD (S/P/Bld) [Vol rate/Area] mL/min/{1.73_m2} Normal >60 [facility] Comment on above: Result Comment: These results [...] By: #### C MPX, CBCWD, PLCON #### [address] [place] [address] Graduate Fellow: Kemal Waterman MD Glucose [Mass/Vol] 100 mg/dL High 74-99 [facility] Comment on above: Performed By: #### C MPX, CBCWD, PLCON #### [address] [place] [address] Graduate Fellow: Kemal Waterman MD Potassium [Moles/Vol] 4.3 mmol/L Normal 3.5-5.0 [facility] Comment on above: Performed By: #### C MPX, CBCWD, PLCON #### [address] [place] [address] Graduate Fellow: Kemal Waterman MD Protein [Mass/Vol] 5.7 g/dL Low 6.4-8.3 [facility] Comment on above: Performed By: #### C MPX, CBCWD, PLCON #### [address] [place] [address] Graduate Fellow: Kemal Waterman MD Sodium [Moles/Vol] 138 mmol/L Normal 132-146 [facility] Comment on above: Performed By: #### C MPX, CBCWD, PLCON #### [address] [place] [address] Graduate Fellow: Kemal Waterman MD Urea nitrogen [Mass/Vol] 9 mg/dL Normal 6-20 [facility] Comment on above: Performed By: #### C MPX, CBCWD, PLCON #### [address] [place] [address] Graduate Fellow: Kemal Waterman MD Comprehensive Metabolic Pane [facility] 07-27-2023 Albumin [Mass/Vol] 3.1 g/dL Low 3.5 - 5.2 g/dL [facility] ALP [Catalytic activity/Vol] 242 U/L High 40 - 129 U/L [facility] ALT [Catalytic activity/Vol] 21 U/L 0 - 40 U/L [facility] Anion gap [Moles/Vol] 7 mmol/L 7 - 16 mmol/L [facility] AST [Catalytic activity/Vol] 51 U/L High 0 - 39 U/L [facility] Bilirubin [Mass/Vol] 2.1 mg/dL High 0.0 - 1 .2 mg/dL [facility] Calcium [Mass/Vol] 7.7 mg/dL Low 8.6 - 10. 2 mg/dL [facility] Chloride [Moles/Vol] 105 mmol/L 98 - 10 7 mmol/L [facility] CO2 [Moles/Vol] 26 mmol/L 22 - 29 mmol/L [facility] Creatinine [Mass/Vol] 0.8 mg/dL 0.70 - 1.20 mg/dL [facility] GFR/1.73 sq M.predicted MDRD (S/P/Bld) [Vol rate/Area] - PINF [facility] Comment on above: These results [...] 100 mg/dL High 74 - 99 mg/dL [facility] Interpretation and review of laboratory results Abnormal [facility] Potassium [Moles/Vol] 4.3 mmol/L 3.5 - 5.0 mmol/L [facility] Protein [Mass/Vol] 5.7 g/dL Low 6.4 - 8.3 g/dL [facility] Sodium [Moles/Vol] 138 mmol/L 132 - 146 mmol/L [facility] Urea nitrogen [Mass/Vol] 9 mg/dL 6 - 20 mg/dL [facility] MR Lumbar spine WO contrasto n 07-27-2023 Acute mild L2 compression fracture. No sign of any additional compression fractures. No signs of spinal stenosis or nerve root impingement. [facility] EXAMINATION: MRI OF THE LUMBAR [...] Normal left neural foramen. Normal disc height. [facility] Ta Desir MD - 07/27/2023 [...] of spinal stenosis or nerve root impingement. [facility] Radiology Study observation (narrative) [facility] MR Lumbar spine WO contrastO rdered By: Ta Desir on 07-27-2023 [facility] Work Phone: MR Thoracic spine WO contras ton 07-27-2023 1. No sign of acute osseous injury to the thoracic spine. 2. Mild old compression fracture of T9. 3. No sign of spinal stenosis. 4. Mild right lateral T8-9 disc bulge associated with mild flattening of the right anterior thoracic cord. [facility] EXAMINATION: MRI OF THE THORACIC [...] of disc height from disc degenerative disease. [facility] Ta Desir MD - 07/27/2023 [...] flattening of the right anterior thoracic cord. [facility] Radiology Study observation (narrative) [facility] MRI LUMBAR SPINE WO CONTRAST [...] Ta Desir MD 07/27/23 Final result Normal [facility] Comment on above: Order Comment: Reaso n for exam:->spinal tendernessWhat reading provider will be dictating this exam?->CRC MRI THORACIC SPINE WO CONTRA STolawrence 07-27-2023 MRI THORACIC SPINE WO CONTRAST EXAMINATION: [...] Ta Desir MD 07/27/23 Final result Normal [facility] Comment on above: Order Comment: Reaso n for exam:->spinal tendernessWhat reading provider will be dictating this exam?->CRC No Panel Informationon 07-27 [facility] Radiology Study observation (narrative) [facility] [employer] Platelet Confirmationon 07-17 Platelet Confirmation CONFIRMED Normal [facility] Comment on above: Performed By: #### C MPX, CBCWD, PLCON #### [facility] [address] [place] [address] Graduate Fellow: Kemal Waterman MD Platelet Confirmation [facility] Chest AP single viewon 07-27-2023 No acute process. [facility] EXAMINATION: ONE XRAY VIEW OF THE CHEST 07/27/2023 10:32 am COMPARISON: None. HISTORY: ORDERING SYSTEM PROVIDED HISTORY: fall TECHNOLOGIST PROVIDED HISTORY: Reason for exam:->fall What reading provider will be dictating this exam?->CRC FINDINGS: The lungs are without acute focal process. There is no effusion or pneumothorax. The cardiomediastinal silhouette is without acute process. The osseous structures are without acute process. [facility] Dayton De La Cruz [...] without acute process. IMPRESSION: No acute process. [facility] Radiology Study observation (narrative) [facility] [employer] Portable XR Chest AP single viewOrdered By: Dayton De La Cruz on 07-27-2023 [facility] [employer] Work Phone: XR CHEST PORTABLEon 07-27-19 24 [...] La Cruz MD 07/27/23 Final result Normal [facility] Comment on above: Order Comment: Reaso n [...] Willem Lamb DO 07/27/23 Final result Normal [facility] Comment on above: Order Comment: Reaso n for exam:->trauma, fallWhat reading provider will be dictating this exam?->CRC XR Pelvis and Hip - biltiffanya l Viewson 07-27-2023 1. No fracture or dislocation. 2. Mild degenerative changes of the bilateral hips. [facility] EXAMINATION: ONE XRAY VIEW [...] views of the bilateral hips without irregularity [facility] Willem Lamb DO - 07/27/2023 EXAMINATION: [...] Mild degenerative changes of the bilateral hips. [facility] Radiology Study observation (narrative) [facility] XR Pelvis and Hip - bilatera l ViewsOrdered By: Willem Lamb on 07-27-2023 [facility] Work Phone: Ammoniaon 07-25-2023 Ammonia (P) [Moles/Vol] 41 umol/L Normal 16.0-60.0 [facility] Comment on above: Performed By: #### L IPR, CP, PLCON, LINDA, CBCWD #### [place] [address] Graduate Fellow: Kemal Waterman MD Ammoniaon 07-23-2023 Ammonia (P) [Moles/Vol] 127 umol/L High 16.0-60.0 [facility] Comment on above: Performed By: #### L IPR, CP, PLCON, LINDA, CBCWD #### [address] [address] Graduate Fellow: Kemal Waterman MD CBC with Diffon 07-23-2023 Abs. Basophil 0.02 k/uL Normal 0.00-0.20 [facility] Comment on above: Performed By: #### L IPR, CP, PLCON, LINDA, CBCWD #### [address] [address] Graduate Fellow: Kemal Waterman MD Abs.Imm.Granulocyte <0.03 Normal 0.00-0.58 [facility] Comment on above: Performed By: #### L IPR, CP, PLCON, LINDA, CBCWD #### [place] [address] Graduate Fellow: Kemal Waterman MD Abs.Neutrophil (Seg) 2.57 k/uL Normal 1.80-7.30 [facility] Comment on above: Performed By: #### L IPR, CP, PLCON, LINDA, CBCWD #### [place] [address] Graduate Fellow: Kemal Waterman MD Basophils/100 WBC (Bld) 1 % Normal 0.0-2.0 [facility] Comment on above: Performed By: #### L IPR, CP, PLCON, LINDA, CBCWD #### [place] [address] Graduate Fellow: Kemal Waterman MD Eosinophils (Bld) [#/Vol] 0.15 10*3/uL Normal 0.05-0.50 [facility] Comment on above: Performed By: #### L IPR, CP, PLCON, LINDA, CBCWD #### [place] [address] Graduate Fellow: Kemal Waterman MD Eosinophils/100 WBC (Bld) 4 % Normal 0-6 [facility] Comment on above: Performed By: #### L IPR, CP, PLCON, LINDA, CBCWD #### [place] [address] Graduate Fellow: Kemal Waterman MD Immature granulocytes/100 WBC (Bld) 0 % Normal 0.0-5.0 [facility] Comment on above: Performed By: #### L IPR, CP, PLCON, LINDA, CBCWD #### [address] [place] [address] Graduate Fellow: Kemal Waterman MD Lymphocytes (Bld) [#/Vol] 0.78 10*3/uL Low 1.50-4.00 [facility] Comment on above: Performed By: #### L IPR, CP, PLCON, LINDA, CBCWD #### [place] [address] Graduate Fellow: Kemal Waterman MD Lymphocytes/100 WBC (Bld) 20 % Normal 20.0-42.0 [facility] Comment on above: Performed By: #### L IPR, CP, PLCON, LINDA, CBCWD #### [place] [address] Graduate Fellow: Kemal Waterman MD Monocytes (Bld) [#/Vol] 0.32 10*3/uL Normal 0.10-0.95 [facility] Comment on above: Performed By: #### L IPR, CP, PLCON, LINDA, CBCWD #### [address] [place] [address] Graduate Fellow: Kemal Waterman MD Monocytes/100 WBC (Bld) 8 % Normal 2.0-12.0 [facility] Comment on above: Performed By: #### L IPR, CP, PLCON, LINDA, CBCWD #### [address] [place] [address] Graduate Fellow: Kemal Waterman MD Neutrophil (Seg) 67 % Normal 43.0-80.0 [facility] Comment on above: Performed By: #### L IPR, CP, PLCON, LINDA, CBCWD #### [facility] [address] [place] [address] Graduate Fellow: Kemal Waterman MD RBC morphology finding Nom (Bld) 2+ Normal [facility] Comment on above: Result Comment: ANIS OCYTOSIS 1+ OVALOCYTES 1+ POIKILOCYTOSIS 1+ POLYCHROMASIA 1+ SCHISTOCYTES 1+ TARGET CELLS Performed By: #### L IPR, CP, PLCON, LINDA, CBCWD #### [address] [place] [address] Graduate Fellow: Kemal Waterman MD Erythrocyte distribution width (RBC) [Ratio] 20.7 % High 11.5-15.0 [facility] Comment on above: Performed By: #### L IPR, CP, PLCON, LINDA, CBCWD #### [address] [place] [address] Graduate Fellow: Kemal Waterman MD Hematocrit (Bld) [Volume fraction] 33.9 % Low 37.0-54.0 [facility] Comment on above: Performed By: #### L IPR, CP, PLCON, LINDA, CBCWD #### [address] [place] [address] Graduate Fellow: Kemal Waterman MD Hemoglobin (Bld) [Mass/Vol] 10.9 g/dL Low 12.5-16.5 [facility] Comment on above: Performed By: #### L IPR, CP, PLCON, LINDA, CBCWD #### [address] [place] [address] Graduate Fellow: Kemal Waterman MD MCH (RBC) [Entitic mass] 31.5 pg Normal 26.0-35.0 [facility] Comment on above: Performed By: #### L IPR, CP, PLCON, LINDA, CBCWD #### [address] [place] [address] Graduate Fellow: Kemal Waterman MD MCHC (RBC) [Mass/Vol] 32.2 g/dL Normal 32.0-34.5 [facility] Comment on above: Performed By: #### L IPR, CP, PLCON, LINDA, CBCWD #### [address] [place] [address] Graduate Fellow: Kemal Waterman MD MCV (RBC) [Entitic vol] 98.0 fL Normal 80.0-99.9 [facility] Comment on above: Performed By: #### L IPR, CP, PLCON, LINDA, CBCWD #### [address] [place] [address] Graduate Fellow: Kemal Waterman MD Platelet mean volume (Bld) [Entitic vol] 9.8 fL Normal 7.0-12.0 [facility] Comment on above: Performed By: #### L IPR, CP, PLCON, LINDA, CBCWD #### [address] [place] [address] Graduate Fellow: Kemal Waterman MD Platelets (Bld) [#/Vol] 62 10*3/uL Low 130-450 [facility] Comment on above: Performed By: #### L IPR, CP, PLCON, LINDA, CBCWD #### [address] [place] [address] Graduate Fellow: Kemal Waterman MD RBC (Bld) [#/Vol] 3.46 10*6/uL Low 3.80-5.80 [facility] Comment on above: Performed By: #### L IPR, CP, PLCON, LINDA, CBCWD #### [address] [address] Graduate Fellow: Kemal Waterman MD WBC (Bld) [#/Vol] 3.9 10*3/uL Low 4.5-11.5 [facility] Comment on above: Performed By: #### L IPR, CP, PLCON, LINDA, CBCWD #### [place] [address] [facility] [address] [place] [address] Graduate Fellow: Keaml Waterman MD Comp Metabolic Profon 2023 Albumin [Mass/Vol] 3.4 g/dL Low 3.5-5.2 [facility] Comment on above: Performed By: #### L IPR, CP, PLCON, LINDA, CBCWD #### [address] [place] [address] Graduate Fellow: Kemal Waterman MD Alkaline Phos 265 U/L High 40-129 [facility] Comment on above: Performed By: #### L IPR, CP, PLCON, LINDA, CBCWD #### [place] [address] [facility] [address] [place] [address] Graduate Fellow: Kemal Waterman MD ALT [Catalytic activity/Vol] 19 U/L Normal 0-40 [facility] Comment on above: Performed By: #### L IPR, CP, PLCON, LINDA, CBCWD #### [address] [place] [address] Graduate Fellow: Kemal Waterman MD Anion gap [Moles/Vol] 12 mmol/L Normal 7-16 [facility] Comment on above: Performed By: #### L IPR, CP, PLCON, LINDA, CBCWD #### [place] [address] [facility] [place] [address] Graduate Fellow: Kemal Waterman MD AST [Catalytic activity/Vol] 50 U/L High 0-39 [facility] Comment on above: Performed By: #### L IPR, CP, PLCON, LINDA, CBCWD #### [address] [place] [address] Graduate Fellow: Kemal Waterman MD Bilirubin [Mass/Vol] 2.3 mg/dL High 0.0-1.2 [facility] Comment on above: Performed By: #### L IPR, CP, PLCON, LINDA, CBCWD #### [address] [place] [address] Graduate Fellow: Kemal Waterman MD Calcium [Mass/Vol] 8.3 mg/dL Low 8.6-10.2 [facility] Comment on above: Performed By: #### L IPR, CP, PLCON, LINDA, CBCWD #### [address] [place] [address] Graduate Fellow: Kemal Waterman MD Chloride [Moles/Vol] 103 mmol/L Normal 98-107 [facility] Comment on above: Performed By: #### L IPR, CP, PLCON, LINDA, CBCWD #### [address] [place] [address] Graduate Fellow: Kemal Waterman MD CO2 [Moles/Vol] 25 mmol/L Normal 22-29 [facility] Comment on above: Performed By: #### L IPR, CP, PLCON, LINDA, CBCWD #### [address] [place] [address] Graduate Fellow: Kemal Waterman MD Creatinine [Mass/Vol] 0.8 mg/dL Normal 0.70-1.20 [facility] Comment on above: Performed By: #### L IPR, CP, PLCON, LINDA, CBCWD #### [address] [place] [address] Graduate Fellow: Kemal Waterman MD GFR/1.73 sq M.predicted among non-blacks MDRD (S/P/Bld) [Vol rate/Area] mL/min/{1.73_m2} Normal >60 [facility] Comment on above: Result Comment: These results [...] L IPR, CP, PLCON, LINDA, CBCWD #### [address] [place] [address] Graduate Fellow: Kemal Waterman MD Glucose [Mass/Vol] 266 mg/dL High 74-99 [facility] Comment on above: Performed By: #### L IPR, CP, PLCON, LINDA, CBCWD #### [address] [place] [address] Graduate Fellow: Kemal Waterman MD Potassium [Moles/Vol] 4.3 mmol/L Normal 3.5-5.0 [facility] Comment on above: Performed By: #### L IPR, CP, PLCON, LINDA, CBCWD #### [address] [place] [address] Graduate Fellow: Kemal Waterman MD Protein [Mass/Vol] 6.6 g/dL Normal 6.4-8.3 [facility] [facility] Comment on above: Performed By: #### L IPR, CP, PLCON, LINDA, CBCWD #### [address] [place] [address] Graduate Fellow: Kemal Waterman MD Sodium [Moles/Vol] 140 mmol/L Normal 132-146 [facility] Comment on above: Performed By: #### L IPR, CP, PLCON, LINDA, CBCWD #### [address] [place] [address] Graduate Fellow: Kemal Waterman MD Urea nitrogen [Mass/Vol] 9 mg/dL Normal 6-20 [facility] Comment on above: Performed By: #### L IPR, CP, PLCON, LINDA, CBCWD #### [place] [address] Graduate Fellow: Kemal Waterman MD Drug Scr, Abuse, Uron 2023 Amphetamine(s),Ur Negative Normal NEG [facility] Comment on above: Result Comment: Cuto ff: 1000 ng/mL Performed By: #### U A, ROBERT #### [place] [address] Graduate Fellow: Kemal Waterman MD Barbiturate(s),Ur Negative Normal NEG [facility] Comment on above: Result Comment: Cuto ff: 200 ng/ml Performed By: #### U A, ROBERT #### [place] [address] Graduate Fellow: Kemal Waterman MD Benzodiazepine(s) Negative Normal NEG [facility] Comment on above: Result Comment: Cuto ff: 200 ng/ml Performed By: #### U A, ROBERT #### [address] [address] Graduate Fellow: Kemal Waterman MD Buprenorphrine, Ur Negative Normal NEG [facility] Comment on above: Result Comment: Cuto ff: 5 ng/ml Performed By: #### U A, ROBERT #### [address] [place] [address] Graduate Fellow: Kemal Waterman MD Cannabinoid(s),Ur Negative Normal NEG [facility] Comment on above: Result Comment: Cuto ff: 50 ng/ml Performed By: #### U A, ROBERT #### [address] [place] [address] Graduate Fellow: Kemal Waterman MD Cocaine Metabolite Negative Normal NEG [facility] Comment on above: Result Comment: Cuto ff: 300 ng/ml Performed By: #### U A, ROBERT #### [address] [place] [address] Graduate Fellow: Kemal Waterman MD Fentanyl, Urine Negative Normal NEG [facility] Comment on above: Result Comment: Cuto ff: 1.0 ng/ml Performed By: #### U A, ROBERT #### [address] [place] [address] Graduate Fellow: Kemal Waterman MD Interpretive Info These drug screen results are for medical purposes only and should not be Normal [facility] Comment on above: Result Comment: cons idered definitive or confirmed. The drug methodology concentration value must be greater than or equal to the cutoff to be reported as positive. Confirmtory testing orders and/or interpretive sceening questions can be directed to toxicology at [phone]. The absence of expected drug(s) and/or metabolite(s) may be due to inappropriate timing of specimen collection relative to drug administration, poor drug absorption, diluted/adulterated urine, or limitations of screening methodology. Performed By: #### U A, ROBERT #### [address] [place] [address] Graduate Fellow: Kemal Waterman MD Methadone Ql (U) Negative Normal NEG [facility] Comment on above: Result Comment: Cuto ff: 300 ng/ml Performed By: #### U A, ROBERT #### [address] [place] [address] Graduate Fellow: Kemal Waterman MD Opiate(s), Ur Negative Normal NEG [facility] Comment on above: Result Comment: Cuto ff: 300 ng/ml Note: The Opiate screen is not intended to detect Oxycodone. Performed By: #### U A, ROBERT #### [address] [place] [address] Graduate Fellow: Kemal Waterman MD Oxycodone, Urine Negative Normal NEG [facility] Comment on above: Result Comment: Cuto ff: 100 ng/ml Performed By: #### U A, ROBERT #### [address] [place] [address] Graduate Fellow: Kemal Waterman MD Phencyclidine, Ur Negative Normal NEG [facility] Comment on above: Result Comment: Cuto ff: 25 ng/ml Performed By: #### U A, ROBERT #### [address] [place] [address] Graduate Fellow: Kemal Waterman MD Hemoglobin A1Con 07-23-2023 HbA1c (Bld) [Mass fraction] 4.9 % Normal 4.0-5.6 [facility] Comment on above: Performed By: #### G LYHGB #### [address] [place] [address] Graduate Fellow: Kemal Waterman MD Lipid Profileon 07-23-2023 Cholesterol [Mass/Vol] 148 mg/dL Normal <200 [facility] Comment on above: Performed By: #### L IPR, CP, PLCON, LINDA, CBCWD #### [address] [place] [address] Graduate Fellow: Kemal Waterman MD Cholesterol in HDL [Mass/Vol] 83 mg/dL Normal >40 [facility] Comment on above: Performed By: #### L IPR, CP, PLCON, LINDA, CBCWD #### [facility] [address] [place] [address] Graduate Fellow: Kemal Waterman MD Cholesterol in LDL [Mass/Vol] 48 mg/dL Normal <100 [facility] Comment on above: Performed By: #### L IPR, CP, PLCON, LINDA, CBCWD #### [address] [place] [address] Graduate Fellow: Kemal Waterman MD Cholesterol in VLDL [Mass/Vol] 17 mg/dL Normal [facility] Comment on above: Result Comment: No n ormal range established. Performed By: #### L IPR, CP, PLCON, LINDA, CBCWD #### [place] [address] [place] [address] Graduate Fellow: Kemal Waterman MD Triglyceride [Mass/Vol] 85 mg/dL Normal <150 [facility] Comment on above: Performed By: #### L IPR, CP, PLCON, LINDA, CBCWD #### [address] [place] [address] Graduate Fellow: Kemal Waterman MD Platelet Confirmationon Platelet Confirmation The automated plat elet count may be artifactually decreased due to platelet Normal [facility] Comment on above: Result Comment: clum ping. Performed By: #### L IPR, CP, PLCON, LINDA, CBCWD #### [facility] [address] [place] [address] Graduate Fellow: Kemal Waterman MD Urinalysis, Routineon 2023 Bilirubin, SemiQt,Ur Negative Normal NEG [facility] Comment on above: Performed By: #### U A, ROBERT #### [address] [place] [address] Graduate Fellow: Kemal Waterman MD Blood, Urine Negative Normal NEG [facility] Comment on above: Performed By: #### U A, ROBERT #### [address] [place] [address] Graduate Fellow: Kemal Waterman MD Clarity (U) Clear Normal CLEAR [facility] Comment on above: Performed By: #### U A, ROBERT #### [address] [place] [address] Graduate Fellow: Kemal Waterman MD Color (U) Yellow Normal YEL [facility] Comment on above: Performed By: #### U A, ROBERT #### [address] [place] [address] Graduate Fellow: Kemal Waterman MD Comment Microscopic exam not performed based on chemical results unless requested in Normal [facility] Comment on above: Result Comment: orig inal order. Performed By: #### U A, ROBERT #### [address] [place] [address] Graduate Fellow: Kemal Waterman MD Glucose Ql (U) Negative Normal NEG [facility] Comment on above: Performed By: #### U A, ROBERT #### [address] [place] [address] Graduate Fellow: Kemal Waterman MD Ketones Ql (U) Negative Normal NEG [facility] Comment on above: Performed By: #### U A, ROBERT #### [address] [place] [address] Graduate Fellow: Kemal Waterman MD Leukocyte esterase Test strip Ql (U) Negative Normal NEG [facility] Comment on above: Performed By: #### U A, ROBERT #### [address] [address] Graduate Fellow: Kemal Waterman MD Nitrite,Ur Negative Normal NEG [facility] Comment on above: Performed By: #### U A, ROBERT #### [place] [address] Graduate Fellow: Kemal Waterman MD PH,Ur 6.0 Normal 5.0-9.0 [facility] Comment on above: Performed By: #### U A, ROBERT #### [place] [address] Graduate Fellow: Kemal Waterman MD Protein Ql (U) Negative Normal NEG [facility] Comment on above: Performed By: #### U A, ROBERT #### [place] [address] Graduate Fellow: Kemal Waterman MD Spec. Holden,Ur 1.020 Normal 1.005-1.030 [facility] Comment on above: Performed By: #### U A, ROBERT #### [place] [address] Graduate Fellow: Kemal Waterman MD Urobilinogen,Ur 0.2 EU/dL Normal 0.0-1.0 [facility] Comment on above: Performed By: #### U A, ROBERT #### [place] [address] Graduate Fellow: Kemal Waterman MD [facility] ALEX ROJO ([id number]) 1975 M T Date Time Provider Department [...] reschedule appt and also left message for [facility] scheduling staff Uma to reschedule the appt. VM included my contact information - appt with Dr. Tamy shore and Luana Nurse agree. 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 Date Time Provider Department 07/14/23 AMARIS ABEL During your visit today, we recorded the following information about you: Amaris Abel LPN 07/14/2023 2:48 PM Signed Contacted patient and was advised of phone number listed as [facility]. Transferred to [facility] and advised by Nurse Zara unable to discuss patient's status because of HIPAA and transferred to [employer] and no one answered phone call. [facility] [address] [place], [place] [address] Contacted patient's spouse listed on chart, Nicolle [...] by AMARIS ABEL on 07/14/23 Normal [facility] Bacteria Ur Culton 3 Bacteria identified [...] or straight catheterization for???urine???collection . Normal [facility] Comment on above: Performed By: #### 6 30-4 ####[facility] LABCLIA [id number] [place] [address] [place] Ammoniaon 04-20-2023 Ammonia (P) [Moles/Vol] 125 umol/L High 16.0-60.0 [facility] Comment on above: Performed By: #### A MON #### [facility] [address] [place] [address] Graduate Fellow: Kemal Waterman MD Ammoniaon 04-17-2023 Ammonia (P) [Moles/Vol] 111 umol/L High 16.0-60.0 [facility] Comment on above: Performed By: #### A MON #### [facility] [address] [place] [address] Graduate Fellow: Kemal Waterman MD CT CERVICAL SPINE WITHOUT [...] multilevel degenerative disc disease. MS/kms Workstation ID: [id number] Dictated by: VINICIUS ENCINAS on [place] Feb 19, 2023 8:01:41 PM EDT Transcribed by: TATYANA OLIVIER on [place] Feb 19, 2023 8:09:33 PM EDT Finalized by: VINICIUS ENCINAS on [place] Feb 19, 2023 8:20:08 PM EDT [facility] Comment on above: Order Comment: Injur y/Trauma [...] multilevel degenerative disc disease. MS/kms Workstation ID: [id number] Dictated by: VINICIUS ENCINAS on MonFeb 19, 2023 8:01:41 PM EDT Transcribed by: TATYANA OLIVIER on MonFeb 19, 2023 8:09:33 PM EDT Finalized by: VINICIUS ENCINAS on MonFeb 19, 2023 8:20:08 PM EDT [facility] Comment on above: Order Comment: Injur y/Trauma [...] thoracic spine. Mild multilevel degenerative disc disease. [employer]/Nak[employer] Workstation ID: [id number] Dictated by: VINICIUS ENCINAS on [place] Feb 19, 2023 8:01:41 PM EDT Transcribed by: TATYANA OLIVIER on [place] Feb 19, 2023 8:09:33 PM EDT Finalized by: VINICIUS ENCINAS on [place] Feb 19, 2023 8:20:08 PM EDT [facility] Comment on above: Order Comment: Injur y/Trauma or Illness?:Injury/Trauma How long have you had these symptoms (acute/chronic)?:Acute Reason for exam?:Fall/headache/neck pain Type of Exam?:Initial Mechanism of injury?:Fall/headache/neck pain ANES POSTPROC EVALon 023 ANES POSTPROC EVAL HNO ID: [id number] Author: Hanna Peguero MD Service: Anesthesiology Author [...] September 17, 2022 TIME: 12:37 AM CSN: [id number] Normal [facility] Basic metabolic 2000 panelon 09-17-2022 Anion gap [Moles/Vol] 12 mmol/L Normal 5-16 [facility] Comment on above: Order Comment: Speci men Type: BLOOD SPECIMENOrdering Facility: [facility] Address: [address] [place] [address] Performed By: #### 2 4321-2 ####[facility] LABORATORYCLIA [id number] [place] [address] [place] Calcium [Mass/Vol] 8.1 mg/dL Low 8.5-10.5 [facility] Comment on above: Order Comment: Speci men Type: BLOOD SPECIMENOrdering Facility: [facility] Address: [address] [place] [address] Performed By: #### 2 4321-2 ####[facility] LABORATORYCLIA [id number] [place] [address] [place] Chloride [Moles/Vol] 106 mmol/L Normal 98-107 [facility] Comment on above: Order Comment: Speci men Type: BLOOD SPECIMENOrdering Facility: [facility] Address: [address] [place] [address] Performed By: #### 2 4321-2 ####[facility] LABORATORYCLIA [id number] [place] [address] [place] CO2 [Moles/Vol] 21 mmol/L Normal 21-32 [facility] Comment on above: Order Comment: Speci men Type: BLOOD SPECIMENOrdering Facility: [facility] Address: [address] [place] [address] Performed By: #### 2 4321-2 ####[facility] LABORATORYCLIA [id number] [place] [address] [place] Creatinine [Mass/Vol] 0.89 mg/dL Normal 0.50-1.40 [facility] Comment on above: Order Comment: Speci men Type: BLOOD SPECIMENOrdering Facility: [facility] Address: [address] [place] [address] Result Comment: Barbara ents receiving either N-Acetylcysteine (NAC) or Metamizole prior to venipuncture, may have falsely depressed results. Performed By: #### 2 4321-2 ####[facility] LABORATORYCLIA [id number] [address] OF [facility] ESTIMATED GLOMERULAR FILTRATION RATE 106 mL/min/1.73m??? Normal >=60 [facility] Comment on above: Order Comment: Speci men Type: BLOOD SPECIMENOrdering Facility: [facility] Address: [address] [place] [address] Result Comment: Rabia mated Glomerular Filtration Rate [...] actual GFR. Performed By: #### 2 4321-2 ####[facility] LABORATORYCLIA [id number] [place] [address] [place] Glucose [Mass/Vol] 177 mg/dL High 70-100 [facility] Comment on above: Order Comment: Katherine men Type: BLOOD SPECIMENOrdering Facility: [facility] Address: [address] [phone] Result Comment: The [place] Diabetes Association (ADA) provides guidance for cutoff [...] Standards of Medical Care in Diabetes 2016, [place] [employer] Association. Diabetes Care. 2016.39(Suppl 1). Results may be falsely elevated after the administration of Sulfapyridine. Results may be falsely depressed after the administration of Sulfasalazine. Performed By: #### 2 4321-2 ####[facility] LABORATORYCLIA [id number] [place] [address] [place] Potassium [Moles/Vol] 4.7 mmol/L Normal 3.5-5.1 [facility] Comment on above: Order Comment: Katherine kim Type: BLOOD SPECIMENOrdering Facility: [facility] Address: [address] [phone] Performed By: #### 2 4321-2 ####[facility] LABORATORYCLIA [id number] [place] [address] [place] Sodium [Moles/Vol] 139 mmol/L Normal 136-145 [facility] Comment on above: Order Comment: Speci men Type: BLOOD SPECIMENOrdering Facility: [facility] Address: [address] [place] [address] Performed By: #### 2 4321-2 ####[facility] LABORATORYCLIA [id number] [address] [place] Urea nitrogen [Mass/Vol] 28 mg/dL High 7-26 [facility] Comment on above: Order Comment: Speci men Type: BLOOD SPECIMENOrdering Facility: [facility] Address: [address] [place] [address] Performed By: #### 2 4321-2 ####[facility] LABORATORYCLIA [id number] [address] [place] CBC panel Auto (Bld)on 09-17 Erythrocyte distribution width (RBC) [Ratio] 14.8 % Normal 11.5-15.0 [facility] Comment on above: Order Comment: Speci men Type: BLOOD SPECIMENOrdering Facility: [facility] Address: [address] [place] [address] Performed By: #### 5 8410-2 ####[facility] LABORATORYCLIA [id number] [address] [place] Hematocrit (Bld) [Volume fraction] 31.0 % Low 39.0-51.0 [facility] Comment on above: Order Comment: Speci men Type: BLOOD SPECIMENOrdering Facility: [facility] Address: [address] [place] [address] Performed By: #### 5 8410-2 ####[facility] LABORATORYCLIA [id number] [address] [place] Hemoglobin (Bld) [Mass/Vol] 10.3 g/dL Low 13.0-17.0 [facility] Comment on above: Order Comment: Speci men Type: BLOOD SPECIMENOrdering Facility: [facility] Address: [address] [address] Performed By: #### 5 8410-2 ####[facility] LABORATORYCLIA [id number] [address] MCH (RBC) [Entitic mass] 37.7 pg High 26.0-34.0 [facility] Comment on above: Order Comment: Speci men Type: BLOOD SPECIMENOrdering Facility: [facility] Address: [address] [place] [address] Performed By: #### 5 8410-2 ####[facility] LABORATORYCLIA [id number] [address] [place] MCHC (RBC) [Mass/Vol] 33.2 g/dL Normal 30.5-36.0 [facility] Comment on above: Order Comment: Speci men Type: BLOOD SPECIMENOrdering Facility: [facility] Address: [address] [place] [address] Performed By: #### 5 8410-2 ####[facility] LABORATORYCLIA [id number] [address] [place] MCV (RBC) [Entitic vol] 113.6 fL High 80.0-100.0 [facility] Comment on above: Order Comment: Speci men Type: BLOOD SPECIMENOrdering Facility: [facility] Address: [address] [place] [address] Performed By: #### 5 8410-2 ####[facility] LABORATORYCLIA [id number] [address] Nucleated RBC (Bld) [#/Vol] 10*3/uL Normal <0.01 [facility] Comment on above: Order Comment: Speci men Type: BLOOD SPECIMENOrdering Facility: [facility] Address: [address] [place] [address] Performed By: #### 5 8410-2 ####[facility] LABORATORYCLIA [id number] [address] [place] Platelet mean volume (Bld) [Entitic vol] 10.4 fL Normal 9.0-12.7 [facility] Comment on above: Order Comment: Speci men Type: BLOOD SPECIMENOrdering Facility: [facility] Address: [address] [phone] Performed By: #### 5 8410-2 ####[facility] LABORATORYCLIA [id number] [place] [id number] [facility] Platelets (Bld) [#/Vol] 91 10*3/uL Low 150-400 [facility] Comment on above: Order Comment: Speci men Type: BLOOD SPECIMENOrdering Facility: [facility] Address: [address] [place] [address] Result Comment: No c lot detected. Performed By: #### 5 8410-2 ####[facility] LABORATORYCLIA [id number] [place] [id number] [facility] [place] RBC (Bld) [#/Vol] 2.73 10*6/uL Low 4.20-6.00 [facility] Comment on above: Order Comment: Speci men Type: BLOOD SPECIMENOrdering Facility: [facility] Address: [address]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 activity/Vol] 275 U/L 73-393 [facility] Work Phone: Urea nitrogen/Creatinine [Mass ratio] 6.8 mg/mg 1020 [facility] Work Phone: ALP [Catalytic activity/Vol] 199 U/L 45-117 [facility] Work Phone: ALT [Catalytic activity/Vol] 49 U/L 16-61 [facility] Work Phone: CO2 [Moles/Vol] 30.0 mmol/L 21.0-32.0 [facility] Work Phone: Globulin (S) [Mass/Vol] 4.5 g/dL 2.2-4.2 [facility] Work Phone: Urea nitrogen/Creatinine [Mass ratio] 6.7 mg/mg 1020 [facility] Work Phone: Laboratory - Coagulationon 1 08-17-2021 aPTT Coag (Bld) [Time] 41.6 s 24.1-36.2 [facility] Work Phone: PT Coag (PPP) [Time] 21.3 s 11.7-14.9 [facility] Work Phone: Laboratory - Drug toxicology on 06-16-2022 Amphetamines Ql (U) Negative <1000 ng/mL [facility] Work Phone: Benzodiazepines Ql (U) Negative < 200 ng/mL [facility] Work Phone: Cannabinoids Screen Ql (U) Positive < 50 ng/mL [facility] Work Phone: Cocaine Ql (U) Negative < 300 ng/mL [facility] Work Phone: Opiates Ql (U) Negative < 300 ng/mL [facility] Work Phone: Laboratory - Hematology and Cell countson 06-16-2022 Erythrocyte distribution width (RBC) [Entitic vol] 55.8 fL 35.1-43.9 [facility] Work Phone: Erythrocyte distribution width (RBC) [Ratio] 13.5 % 11.6-14.6 [facility] Work Phone: Immature granulocytes/100 WBC (Bld) 0.400 % 0.0-0.9 [facility] Work Phone: Comment on above: IG% - Immature Granu locytes (promyelocytes, myelocytes and metamyelocytes) > 1% indicates that a LEFT SHIFT is Present. MCH (RBC) [Entitic mass] 39.2 pg 27.0-32.0 [facility] Work Phone: Nucleated RBC/100 WBC (Bld) [Ratio] 0 % 0-5 [facility] Work Phone: MCHC Auto (RBC) [Mass/Vol]on 06-16-2022 MCHC (RBC) [Mass/Vol] 34.8 g/dL 32-36 [facility] Work Phone: Comment on above: Delta: 37.0 on 06/14-1313 No Panel Informationon 06-16 MDMA (Ecstasy) Screen Negative < 500 ng/mL [facility] Work Phone: Urine Barbiturates Screen Negative < 200 ng/mL [facility] Work Phone: Urine Drug Screen Comment [facility] Work Phone: Comment on above: CONFIRMATORY TESTING [...] Urine Methadone Screen Negative < 300 ng/mL [facility] Work Phone: Estimated Creatinine Clearance Calc 67.92 ml/min [facility] Work Phone: Estimated GFR (MDRD) Amer 74 mL/min >60 [facility] Work Phone: Comment on above: GFR Calc Estimated GFR (MDRD) Non-Af Amer 61 mL/min >60 [facility] Work Phone: Comment on above: Non- GFR Calc Ethyl Alcohol Level < 3.0 mg/dL [facility] Work Phone: Comment on above: The serum:whole bloo d ethanol ratio is approximately 1.14and varies slightly with hematocrit. Medical Alcohol reference interval and critical value innon-tolerant individuals; 50 - 100 Impairment 100 Intoxication 100 - 250 Severe Poisoning 250 - 400 Deep/possible fatal coma Troponin I High Sensitivity 8 pg/mL 3.0-78.0 [facility] Work Phone: Comment on above: Please Note: New Chitra t Units and Gender Specific Reference Ranges. For more information see Policy Stat Procedure [place] High Sensitivity Troponin (TNIH) and attachments. Estimated Creatinine Clearance Calc 55.42 ml/min [facility] Work Phone: Estimated GFR (MDRD) Amer 58 mL/min >60 [facility] Work Phone: Comment on above: GFR Calc Estimated GFR (MDRD) Non-Af Amer 48 mL/min >60 [facility] Work Phone: Comment on above: Non- GFR Calc Platelets bldon 06-16-2022 Platelets (Bld) [#/Vol] 121 10*3/uL 150-450 [facility] Work Phone: Serum or plasma albumin leslye urement (mass/volume)on 06-16-2022 Albumin [Mass/Vol] 3.0 g/dL 3.2-5.0 [facility] Work Phone: Albumin [Mass/Vol] 3.0 g/dL 3.2-5.0 [facility] Work Phone: Serum or plasma albumin/glob ulin mass ratioon 06-16-2022 Albumin/Globulin [Mass ratio] 0.7 {ratio} 0.9-2.4 [facility] Work Phone: Serum or plasma calcium leslye urement (mass/volume)on 06-16-2022 Calcium [Mass/Vol] 8.8 mg/dL 8.5-10.1 [facility] Work Phone: Calcium [Mass/Vol] 8.5 mg/dL 8.5-10.1 [facility] Work Phone: Serum or plasma creatinine m easurement (mass/volume)on 06-16-2022 Creatinine [Mass/Vol] 1.33 mg/dL 0.70-1.30 [facility] Work Phone: Comment on above: The validity of the calculated GFR & GFRAA in patients over 70 years has not been determined. Clinical correlation is essential. Creatinine [Mass/Vol] 1.63 mg/dL 0.70-1.30 [facility] Work Phone: Comment on above: The validity of the calculated GFR & GFRAA in patients over 70 years has not been determined. Clinical correlation is essential. Serum or plasma urea nitroge n measurement (mass/volume)on 06-16-2022 Urea nitrogen [Mass/Vol] 9 mg/dL 01-31 [facility] Work Phone: Urea nitrogen [Mass/Vol] 11 mg/dL 01-31 [facility] Work Phone: Thin prep Papanicolaou smear with manual screeningon 06-16-2022 Thin prep Papanicolaou smear with manual screening 89 U/L [facility] Work Phone: Thin prep Papanicolaou smear with manual screening 7 11-28 [facility] Work Phone: [phone] Thin prep Papanicolaou smear with manual screening 92 U/L [facility] Work Phone: [phone] Thin prep Papanicolaou smear with manual screening 9 11-28 [facility] Work Phone: Urine phencyclidine (PCP) de tectionon 06-16-2022 Phencyclidine Ql (U) Negative < 25 ng/mL [facility] Work Phone: Absolute lymphocyte counton 06-14-2022 Lymphocytes Auto (Unsp spec) [#/Vol] 0.78 10*3/uL 0.83-4.51 [facility] Work Phone: Basophil percentageon 2021 Basophil percentage < 10.0 umol/L [facility] Work Phone: Basophils/100 WBC (Bld) 0.6 % 0-1 [facility] Work Phone: Bilirubin [Mass/Vol] 5.40 mg/dL 0.20-1.00 [facility] Work Phone: Comment on above: For patients on eltr ombopag therapy, use of Dimension [place] TBIL is not recommended. Chloride [Moles/Vol] 93 mmol/L 98-107 [facility] Work Phone: Eosinophils/100 WBC (Bld) 1.0 % 0-5 [facility] Work Phone: Glucose [Mass/Vol] 183 mg/dL 74-106 [facility] Work Phone: Comment on above: Fasting Glucose resu lt greater than or equal to 126 mg/dL suggests DIABETES MELLITUS per A.D.A. criteria. Neutrophils (Bld) [#/Vol] 6.5 10*3/uL 2.0-7.7 [facility] Work Phone: Neutrophils/100 WBC (Bld) 80.5 % 47-70 [facility] Work Phone: Potassium [Moles/Vol] 4.1 mmol/L 3.5-5.1 [facility] Work Phone: Protein [Mass/Vol] 8.2 g/dL 6.4-8.2 [facility] Work Phone: Sodium [Moles/Vol] 131 mmol/L 136-145 [facility] Work Phone: WBC (Bld) [#/Vol] 8.0 10*3/uL 4.4-11.0 [facility] Work Phone: Blood erythrocytes count (nu mber/volume)on 06-14-2022 RBC (Bld) [#/Vol] 3.38 10*6/uL 4.6-6.2 [facility] Work Phone: Blood hemoglobin measurement (mass/volume)on 06-14-2022 Hemoglobin (Bld) [Mass/Vol] 13.9 g/dL 13.0-16.5 [facility] Work Phone: Blood lymphocytes/100 leukoc yteson 06-14-2022 Lymphocytes/100 WBC (Bld) 9.7 % 19-41 [facility] Work Phone: Blood monocytes/100 leukocyt eson 06-14-2022 Monocytes/100 WBC (Bld) 8.1 % 0-10 [facility] Work Phone: Blood platelet mean volumeon 06-14-2022 Platelet mean volume (Bld) [Entitic vol] 9.6 fL 6.2-12.0 [facility] Work Phone: Determination of erythrocyte mean corpuscular volume (MCV)on 06-14-2022 MCV (RBC) [Entitic vol] 111.2 fL 80-94 [facility] Work Phone: Hematocrit Auto (Bld) [Volum e fraction]on 06-14-2022 Hematocrit (Bld) [Volume fraction] 37.6 % 40-54 [facility] Work Phone: Laboratory - Chemistry and C hemistry - challengeon 06-14-2022 ALP [Catalytic activity/Vol] 176 U/L 45-117 [facility] Work Phone: ALT [Catalytic activity/Vol] 47 U/L 16-61 [facility] Work Phone: CO2 [Moles/Vol] 31.0 mmol/L 21.0-32.0 [facility] Work Phone: Globulin (S) [Mass/Vol] 5.0 g/dL 2.2-4.2 [facility] Work Phone: Urea nitrogen/Creatinine [Mass ratio] 6.9 mg/mg 10-20 [facility] Work Phone: Laboratory - Hematology and Cell countson 06-14-2022 Erythrocyte distribution width (RBC) [Entitic vol] 55.8 fL 35.1-43.9 [facility] Work Phone: Erythrocyte distribution width (RBC) [Ratio] 13.5 % 11.6-14.6 [facility] Work Phone: Immature granulocytes/100 WBC (Bld) 0.100 % 0.0-0.9 [facility] Work Phone: Comment on above: IG% - Immature Granu locytes (promyelocytes, myelocytes and metamyelocytes) > 1% indicates that a LEFT SHIFT is Present. MCH (RBC) [Entitic mass] 41.1 pg 27.0-32.0 [facility] Work Phone: Nucleated RBC/100 WBC (Bld) [Ratio] 0 % 0-5 [facility] Work Phone: MCHC Auto (RBC) [Mass/Vol]on 06-14-2022 MCHC (RBC) [Mass/Vol] 37.0 g/dL 32-36 [facility] Work Phone: No Panel Informationon 06-14 Estimated GFR (MDRD) Amer 60 mL/min >60 [facility] Work Phone: Comment on above: GFR Calc Estimated GFR (MDRD) Non-Af Amer 50 mL/min >60 [facility] Work Phone: Comment on above: Non- GFR Calc Miscellaneous Test See comment [facility] Work Phone: Comment on above: TEST RESULT LIMITSPh osphatidylethanol (PEth) Negative ng/mL NEGATIVEAnalyzed compound: PEth 16:0/18:1. 7-[id number]-phosphoethanol. Analysis performed by Liquid Chromatography with Tandem [...] developed and its performance characteristics determined by [employer]. It has not been cleared or approved by the Food and Drug Administration. TESTING PERFORMED AT [facility]. ORIGINAL REPORT ON FILE IN LAB CONTAINS ADDITIONAL TEST SITE INFORMATION. Platelets bldon 06-14-2022 Platelets (Bld) [#/Vol] 143 10*3/uL 150-450 [facility] Work Phone: Serum or plasma albumin leslye urement (mass/volume)on 06-14-2022 Albumin [Mass/Vol] 3.2 g/dL 3.2-5.0 [facility] Work Phone: Serum or plasma albumin/glob ulin mass ratioon 06-14-2022 Albumin/Globulin [Mass ratio] 0.6 {ratio} 0.9-2.4 [facility] Work Phone: Serum or plasma calcium leslye urement (mass/volume)on 06-14-2022 Calcium [Mass/Vol] 9.1 mg/dL 8.5-10.1 [facility] Work Phone: Serum or plasma creatinine m easurement (mass/volume)on 06-14-2022 Creatinine [Mass/Vol] 1.59 mg/dL 0.70-1.30 [facility] Work Phone: Comment on above: The validity of the calculated GFR & GFRAA in patients over 70 years has not been determined. Clinical correlation is essential. Serum or plasma urea nitroge n measurement (mass/volume)on 06-14-2022 Urea nitrogen [Mass/Vol] 11 mg/dL 7-18 [facility] Work Phone: Thin prep Papanicolaou smear with manual screeningon 06-14-2022 Thin prep Papanicolaou smear with manual screening 86 U/L 15-37 [facility] Work Phone: Thin prep Papanicolaou smear with manual screening 7 5-15 [facility] Work Phone: Basophil percentageon 2021 Bilirubin [Mass/Vol] 4.60 mg/dL 0.20-1.00 [facility] Work Phone: Comment on above: For patients on eltr ombopag therapy, use of Dimension [place] TBIL is not recommended. Chloride [Moles/Vol] 96 mmol/L 98-107 [facility] Work Phone: Glucose [Mass/Vol] 213 mg/dL 74-106 [facility] Work Phone: Comment on above: Glucose result great er than or equal to 200 mg/dLsuggests DIABETES MELLITUS per A.D.A. criteria. Potassium [Moles/Vol] 4.3 mmol/L 3.5-5.1 [facility] Work Phone: Protein [Mass/Vol] 7.5 g/dL 6.4-8.2 [facility] Work Phone: Sodium [Moles/Vol] 132 mmol/L 136-145 [facility] Work Phone: Laboratory - Chemistry and C hemistry - challengeon 05-23-2022 ALP [Catalytic activity/Vol] 224 U/L 45-117 [facility] Work Phone: ALT [Catalytic activity/Vol] 26 U/L 16-61 [facility] Work Phone: CO2 [Moles/Vol] 29.0 mmol/L 21.0-32.0 [facility] Work Phone: Globulin (S) [Mass/Vol] 4.6 g/dL 2.2-4.2 [facility] Work Phone: Urea nitrogen/Creatinine [Mass ratio] 10.5 mg/mg 10-20 [facility] Work Phone: No Panel Informationon 05-23 Estimated GFR (MDRD) Amer 88 mL/min >60 [facility] Work Phone: Comment on above: GFR Calc Estimated GFR (MDRD) Non-Af Amer 73 mL/min >60 [facility] Work Phone: Comment on above: Non- GFR Calc Serum or plasma albumin leslye urement (mass/volume)on 05-23-2022 Albumin [Mass/Vol] 2.9 g/dL 3.2-5.0 [facility] Work Phone: Serum or plasma albumin/glob ulin mass ratioon 05-23-2022 Albumin/Globulin [Mass ratio] 0.6 {ratio} 0.9-2.4 [facility] Work Phone: Serum or plasma calcium leslye urement (mass/volume)on 05-23-2022 Calcium [Mass/Vol] 8.8 mg/dL 8.5-10.1 [facility] Work Phone: Serum or plasma creatinine m easurement (mass/volume)on 05-23-2022 Creatinine [Mass/Vol] 1.14 mg/dL 0.70-1.30 [facility] Work Phone: Comment on above: The validity of the calculated GFR & GFRAA in patients over 70 years has not been determined. Clinical correlation is essential. Serum or plasma urea nitroge n measurement (mass/volume)on 05-23-2022 Urea nitrogen [Mass/Vol] 12 mg/dL 7-18 [facility] Work Phone: Thin prep Papanicolaou smear with manual screeningon 05-23-2022 Thin prep Papanicolaou smear with manual screening 49 U/L 15-37 [facility] Work Phone: Thin prep Papanicolaou smear with manual screening 7 5-15 [facility] Work Phone: INR in Blood by Coagulation assayon 05-20-2022 INR Coag (Bld) [Relative time] 1.8 {INR} [facility] Work Phone: Laboratory - Coagulationon 1 07-20-2021 PT Coag (PPP) [Time] 20.1 s 11.7-14.9 [facility] Work Phone: Absolute lymphocyte counton 05-14-2022 Lymphocytes Auto (Unsp spec) [#/Vol] 0.35 10*3/uL 0.83-4.51 [facility] Work Phone: Amorphous sediment detection in urine sediment by light microscopyon 05-14-2022 Amorphous sediment LM Ql (Urine sed) 1+ [facility] Work Phone: Basophil percentageon 2021 Basophil percentage 0 SEEN /hpf 0-5 [facility] Work Phone: Ammonia (P) [Moles/Vol] 105.0 umol/L 11-32 [facility] Work Phone: Basophils/100 WBC (Bld) 0.5 % 0-1 [facility] Work Phone: Bilirubin [Mass/Vol] 4.90 mg/dL 0.20-1.00 [facility] Work Phone: Comment on above: For patients on eltr ombopag therapy, use of Dimension [place] TBIL is not recommended. Chloride [Moles/Vol] 105 mmol/L 98-107 [facility] Work Phone: Eosinophils/100 WBC (Bld) 0.0 % 0-5 [facility] Work Phone: Glucose [Mass/Vol] 204 mg/dL 74-106 [facility] Work Phone: Comment on above: Glucose result great er than or equal to 200 mg/dLsuggests DIABETES MELLITUS per A.D.A. criteria. Neutrophils (Bld) [#/Vol] 5.7 10*3/uL 2.0-7.7 [facility] Work Phone: Neutrophils/100 WBC (Bld) 88.0 % 47-70 [facility] Work Phone: Potassium [Moles/Vol] 4.0 mmol/L 3.5-5.1 [facility] Work Phone: Protein [Mass/Vol] 8.5 g/dL 6.4-8.2 [facility] Work Phone: Sodium [Moles/Vol] 141 mmol/L 136-145 [facility] Work Phone: WBC (Bld) [#/Vol] 6.4 10*3/uL 4.4-11.0 [facility] Work Phone: Bilirubin Test strip Ql (U)o n 05-14-2022 Bilirubin Ql (U) 1 mg/dL Negative [facility] Work Phone: Comment on above: COLOR OF URINE MAY A FFECT DIPSTICK RESULTS. Blood erythrocytes count (nu mber/volume)on 05-14-2022 RBC (Bld) [#/Vol] 2.92 10*6/uL 4.6-6.2 [facility] Work Phone: Blood hemoglobin measurement (mass/volume)on 05-14-2022 Hemoglobin (Bld) [Mass/Vol] 12.3 g/dL 13.0-16.5 [facility] Work Phone: Blood lymphocytes/100 leukoc yteson 05-14-2022 Lymphocytes/100 WBC (Bld) 5.4 % 19-41 [facility] Work Phone: Blood monocytes/100 leukocyt eson 05-14-2022 Monocytes/100 WBC (Bld) 5.6 % 0-10 [facility] Work Phone: Blood platelet mean volumeon 05-14-2022 Platelet mean volume (Bld) [Entitic vol] 9.6 fL 6.2-12.0 [facility] Work Phone: Determination of erythrocyte mean corpuscular volume (MCV)on 05-14-2022 MCV (RBC) [Entitic vol] 114.4 fL 80-94 [facility] Work Phone: Hematocrit Auto (Bld) [Volum e fraction]on 05-14-2022 Hematocrit (Bld) [Volume fraction] 33.4 % 40-54 [facility] Work Phone: [phone] INR in Blood by Coagulation assayon 05-14-2022 INR Coag (Bld) [Relative time] 1.7 {INR} [facility] Work Phone: [phone] Ketones Test strip Ql (U)on 05-14-2022 Ketones Ql (U) 5 mg/dl Negative [facility] Work Phone: [phone] Laboratory - Chemistry and C hemistry - challengeon 05-14-2022 ALP [Catalytic activity/Vol] 246 U/L 45-117 [facility] Work Phone: [phone] ALT [Catalytic activity/Vol] 35 U/L 16-61 [facility] Work Phone: [phone] CO2 [Moles/Vol] 25.0 mmol/L 21.0-32.0 [facility] Work Phone: [phone] Globulin (S) [Mass/Vol] 5.0 g/dL 2.2-4.2 [facility] Work Phone: [phone] Urea nitrogen/Creatinine [Mass ratio] 11.0 mg/mg 10-20 [facility] Work Phone: [phone] Laboratory - Coagulationon 1 aPTT Coag (Bld) [Time] 38.6 s 24.1-36.2 [facility] Work Phone: [phone] PT Coag (PPP) [Time] 20.0 s 11.7-14.9 [facility] Work Phone: [phone] Laboratory - Hematology and Cell countson 05-14-2022 Erythrocyte distribution width (RBC) [Entitic vol] 61.7 fL 35.1-43.9 [facility] Work Phone: [phone] Erythrocyte distribution width (RBC) [Ratio] 14.6 % 11.6-14.6 [facility] Work Phone: [phone] Immature granulocytes/100 WBC (Bld) 0.500 % 0.0-0.9 [facility] Work Phone: Comment on above: IG% - Immature Granu locytes (promyelocytes, myelocytes and metamyelocytes) > 1% indicates that a LEFT SHIFT is Present. MCH (RBC) [Entitic mass] 42.1 pg 27.0-32.0 [facility] Work Phone: Nucleated RBC/100 WBC (Bld) [Ratio] 0 % 0-5 [facility] Work Phone: MCHC Auto (RBC) [Mass/Vol]on 05-14-2022 MCHC (RBC) [Mass/Vol] 36.8 g/dL 32-36 [facility] Work Phone: Mucus LM Ql (Urine sed)on Mucus Ql (Urine sed) 0 SEEN /hpf [facility] Work Phone: Nitrite Test strip Ql (U)on 05-14-2022 Nitrite Ql (U) Positive Negative [facility] Work Phone: No Panel Informationon 05-14 Estimated Creatinine Clearance Calc 55.42 ml/min [facility] Work Phone: Estimated GFR (MDRD) Amer 58 mL/min >60 [facility] Work Phone: Comment on above: GFR Calc Estimated GFR (MDRD) Non-Af Amer 48 mL/min >60 [facility] Work Phone: Comment on above: Non- GFR Calc Ethyl Alcohol Level < 3.0 mg/dL [facility] Work Phone: Comment on above: The serum:whole bloo d ethanol ratio is approximately 1.14and varies slightly with hematocrit. Medical Alcohol reference interval and critical value innon-tolerant individuals; 50 - 100 Impairment 100 Intoxication 100 - 250 Severe Poisoning 250 - 400 Deep/possible fatal coma Troponin I High Sensitivity 10 pg/mL 3.0-78.0 [facility] Work Phone: Comment on above: Please Note: New Chitra t Units and Gender Specific Reference Ranges. For more information see Policy Stat Procedure [place] High Sensitivity Troponin (TNIH) and attachments. Platelets bldon 05-14-2022 Platelets (Bld) [#/Vol] 100 10*3/uL 150-450 [facility] Work Phone: Protein Test strip Ql (U)on 05-14-2022 Protein Ql (U) 15 mg/dl Negative [facility] Work Phone: Serum or plasma albumin leslye urement (mass/volume)on 05-14-2022 Albumin [Mass/Vol] 3.5 g/dL 3.2-5.0 [facility] Work Phone: Serum or plasma albumin/glob ulin mass ratioon 05-14-2022 Albumin/Globulin [Mass ratio] 0.7 {ratio} 0.9-2.4 [facility] Work Phone: Serum or plasma calcium leslye urement (mass/volume)on 05-14-2022 Calcium [Mass/Vol] 9.2 mg/dL 8.5-10.1 [facility] Work Phone: Serum or plasma creatinine m easurement (mass/volume)on 05-14-2022 Creatinine [Mass/Vol] 1.63 mg/dL 0.70-1.30 [facility] Work Phone: Comment on above: The validity of the calculated GFR & GFRAA in patients over 70 years has not been determined. Clinical correlation is essential. Serum or plasma urea nitroge n measurement (mass/volume)on 05-14-2022 Urea nitrogen [Mass/Vol] 18 mg/dL 7-18 [facility] Work Phone: Squamous epithelial cells de tection in urine sediment by light microscopyon 05-14-2022 Epithelial cells.squamous LM Ql (Urine sed) 0 SEEN /hpf 0-5 [facility] Work Phone: Thin prep Papanicolaou smear with manual screeningon 05-14-2022 Thin prep Papanicolaou smear with manual screening 63 U/L 15-37 [facility] Work Phone: Thin prep Papanicolaou smear with manual screening 11 5-15 [facility] Work Phone: Urine blood detectionon 04-17 RBC Ql (U) Negative Negative [facility] Work Phone: RBC Ql (U) 0 SEEN /hpf 0-5 [facility] Work Phone: Urine clarityon 05-14-2022 Clarity (U) Sl. Cloudy Clear [facility] Work Phone: Urine color determinationon 05-14-2022 Color (U) Yellow Yellow [facility] Work Phone: Urine glucose detectionon Glucose Ql (U) Normal mg/dl Normal [facility] Work Phone: Urine leukocyte esterase det ection by dipstickon 05-14-2022 Leukocyte esterase Test strip Ql (U) 100 /ul Negative [facility] Work Phone: Urine pHon 05-14-2022 pH (U) 7.0 [pH] 5.0 - 8.0 [facility] Work Phone: Urine sediment bacteria coun t by microscopy (number/high power field)on 05-14-2022 Bacteria LM.HPF (Urine sed) [#/Area] 0 /[HPF] None Seen [facility] Work Phone: Urine specific gravity measu rementon 05-14-2022 Specific gravity (U) [Rel density] 1.015 1.002-1.030 [facility] Work Phone: Urobilinogen Auto test strip Ql (U)on 05-14-2022 Urobilinogen Ql (U) 4 mg/dl Normal [facility] Work Phone: Basophil percentageon 2021 Bilirubin [Mass/Vol] 5.80 mg/dL 0.20-1.00 [facility] Work Phone: Comment on above: For patients on eltr ombopag therapy, use of Dimension [place] TBIL is not recommended. Chloride [Moles/Vol] 101 mmol/L 98-107 [facility] Work Phone: Glucose [Mass/Vol] 120 mg/dL 74-106 [facility] Work Phone: [phone] Comment on above: Fasting Glucose resu lt from 100 to 125 mg/dL suggests IMPAIRED HOMEOSTASIS per A.D.A. criteria. Potassium [Moles/Vol] 4.4 mmol/L 3.5-5.1 [facility] Work Phone: Protein [Mass/Vol] 8.3 g/dL 6.4-8.2 [facility] Work Phone: Sodium [Moles/Vol] 135 mmol/L 136-145 [facility] Work Phone: INR in Blood by Coagulation assayon 04-21-2022 INR Coag (Bld) [Relative time] 1.8 {INR} [facility] Work Phone: Laboratory - Chemistry and C hemistry - challengeon 04-21-2022 ALP [Catalytic activity/Vol] 225 U/L 45-117 [facility] Work Phone: ALT [Catalytic activity/Vol] 40 U/L 16-61 [facility] Work Phone: CO2 [Moles/Vol] 27.0 mmol/L 21.0-32.0 [facility] Work Phone: Globulin (S) [Mass/Vol] 5.3 g/dL 2.2-4.2 [facility] Work Phone: Urea nitrogen/Creatinine [Mass ratio] 14.7 mg/mg 10-20 [facility] Work Phone: Laboratory - Coagulationon 1 PT Coag (PPP) [Time] 20.6 s 11.7-14.9 [facility] Work Phone: No Panel Informationon 04-21 Estimated GFR (MDRD) Amer 93 mL/min >60 [facility] Work Phone: Comment on above: GFR Calc Estimated GFR (MDRD) Non-Af Amer 77 mL/min >60 [facility] Work Phone: Comment on above: Non- GFR Calc Serum or plasma albumin leslye urement (mass/volume)on 04-21-2022 Albumin [Mass/Vol] 3.0 g/dL 3.2-5.0 [facility] Work Phone: Serum or plasma albumin/glob ulin mass ratioon 04-21-2022 Albumin/Globulin [Mass ratio] 0.6 {ratio} 0.9-2.4 [facility] Work Phone: Serum or plasma calcium leslye urement (mass/volume)on 04-21-2022 Calcium [Mass/Vol] 8.9 mg/dL 8.5-10.1 [facility] Work Phone: Serum or plasma creatinine m easurement (mass/volume)on 04-21-2022 Creatinine [Mass/Vol] 1.09 mg/dL 0.70-1.30 [facility] Work Phone: Comment on above: The validity of the calculated GFR & GFRAA in patients over 70 years has not been determined. Clinical correlation is essential. Serum or plasma urea nitroge n measurement (mass/volume)on 04-21-2022 Urea nitrogen [Mass/Vol] 16 mg/dL 7-18 [facility] Work Phone: Thin prep Papanicolaou smear with manual screeningon 04-21-2022 Thin prep Papanicolaou smear with manual screening 61 U/L 15-37 [facility] Work Phone: Thin prep Papanicolaou smear with manual screening 7 5-15 [facility] Work Phone: Basophil percentageon 2021 Bilirubin [Mass/Vol] 5.10 mg/dL 0.20-1.00 [facility] Work Phone: Comment on above: For patients on eltr ombopag therapy, use of Dimension [place] TBIL is not recommended. Chloride [Moles/Vol] 100 mmol/L 98-107 [facility] Work Phone: Glucose [Mass/Vol] 121 mg/dL 74-106 [facility] Work Phone: Comment on above: Fasting Glucose resu lt from 100 to 125 mg/dL suggests IMPAIRED HOMEOSTASIS per A.D.A. criteria. Potassium [Moles/Vol] 4.2 mmol/L 3.5-5.1 [facility] Work Phone: Protein [Mass/Vol] 7.9 g/dL 6.4-8.2 [facility] Work Phone: Sodium [Moles/Vol] 135 mmol/L 136-145 [facility] Work Phone: INR in Blood by Coagulation assayon 03-22-2022 INR Coag (Bld) [Relative time] 1.8 {INR} [facility] Work Phone: Laboratory - Chemistry and C hemistry - challengeon 03-22-2022 ALP [Catalytic activity/Vol] 209 U/L 45-117 [facility] Work Phone: ALT [Catalytic activity/Vol] 47 U/L 16-61 [facility] Work Phone: CO2 [Moles/Vol] 28.0 mmol/L 21.0-32.0 [facility] Work Phone: Globulin (S) [Mass/Vol] 4.8 g/dL 2.2-4.2 [facility] Work Phone: Urea nitrogen/Creatinine [Mass ratio] 9.2 mg/mg 10-20 [facility] Work Phone: Laboratory - Coagulationon 0 03-22-2022 PT Coag (PPP) [Time] 20.5 s 11.7-14.9 [facility] Work Phone: No Panel Informationon 03-22 Estimated GFR (MDRD) Amer 93 mL/min >60 [facility] Work Phone: Comment on above: GFR Calc Estimated GFR (MDRD) Non-Af Amer 77 mL/min >60 [facility] Work Phone: Comment on above: Non- GFR Calc Serum or plasma albumin leslye urement (mass/volume)on 03-22-2022 Albumin [Mass/Vol] 3.1 g/dL 3.2-5.0 [facility] Work Phone: Serum or plasma albumin/glob ulin mass ratioon 03-22-2022 Albumin/Globulin [Mass ratio] 0.6 {ratio} 0.9-2.4 [facility] Work Phone: Serum or plasma calcium leslye urement (mass/volume)on 03-22-2022 Calcium [Mass/Vol] 9.4 mg/dL 8.5-10.1 [facility] Work Phone: Serum or plasma creatinine m easurement (mass/volume)on 03-22-2022 Creatinine [Mass/Vol] 1.09 mg/dL 0.70-1.30 [facility] Work Phone: Comment on above: The validity of the calculated GFR & GFRAA in patients over 70 years has not been determined. Clinical correlation is essential. Serum or plasma urea nitroge n measurement (mass/volume)on 03-22-2022 Urea nitrogen [Mass/Vol] 10 mg/dL 7-18 [facility] Work Phone: Thin prep Papanicolaou smear with manual screeningon 03-22-2022 Thin prep Papanicolaou smear with manual screening 67 U/L 15-37 [facility] Work Phone: Thin prep Papanicolaou smear with manual screening 7 5-15 [facility] Work Phone: Absolute lymphocyte counton 03-04-2022 Lymphocytes Auto (Unsp spec) [#/Vol] 1.08 10*3/uL 0.83-4.51 [facility] Work Phone: Basophil percentageon 2021 Basophils/100 WBC (Bld) 0.7 % 0-1 [facility] Work Phone: [phone] Bilirubin [Mass/Vol] 4.20 mg/dL 0.20-1.00 [facility] Work Phone: [phone] Comment on above: For patients on eltr ombopag therapy, use of Dimension [place] TBIL is not recommended. Chloride [Moles/Vol] 99 mmol/L 98-107 [facility] Work Phone: [phone] Eosinophils/100 WBC (Bld) 3.0 % 0-5 [facility] Work Phone: [phone] Glucose [Mass/Vol] 94 mg/dL 74-106 [facility] Work Phone: [phone] Neutrophils (Bld) [#/Vol] 3.5 10*3/uL 2.0-7.7 [facility] Work Phone: Neutrophils/100 WBC (Bld) 64.6 % 47-70 [facility] Work Phone: Potassium [Moles/Vol] 4.0 mmol/L 3.5-5.1 [facility] Work Phone: [phone] Protein [Mass/Vol] 7.6 g/dL 6.4-8.2 [facility] Work Phone: Sodium [Moles/Vol] 135 mmol/L 136-145 [facility] Work Phone: [phone] WBC (Bld) [#/Vol] 5.4 10*3/uL 4.4-11.0 [facility] Work Phone: Blood erythrocytes count (nu mber/volume)on 03-04-2022 RBC (Bld) [#/Vol] 3.27 10*6/uL 4.6-6.2 [facility] Work Phone: Blood hemoglobin measurement (mass/volume)on 08-19-2022 Hemoglobin (Bld) [Mass/Vol] 12.9 g/dL 13.0-16.5 [facility] Work Phone: Blood lymphocytes/100 leukoc yteson 03-04-2022 Lymphocytes/100 WBC (Bld) 20.1 % 19-41 [facility] Work Phone: Blood monocytes/100 leukocyt eson 03-04-2022 Monocytes/100 WBC (Bld) 11.2 % 0-10 [facility] Work Phone: Blood platelet adequacy dete ction by light microscopyon 03-04-2022 Platelets LM Ql (Bld) MOD DEC [facility]Q [facility] Work Phone: Blood platelet mean volumeon 03-04-2022 Platelet mean volume (Bld) [Entitic vol] 10.4 fL 6.2-12.0 [facility] Work Phone: Determination of erythrocyte mean corpuscular volume (MCV)on 03-04-2022 MCV (RBC) [Entitic vol] 107.6 fL 80-94 [facility] Work Phone: Hematocrit Auto (Bld) [Volum e fraction]on 03-04-2022 Hematocrit (Bld) [Volume fraction] 35.2 % 40-54 [facility] Work Phone: INR in Blood by Coagulation assayon 03-04-2022 INR Coag (Bld) [Relative time] 1.8 {INR} [facility] Work Phone: Laboratory - Chemistry and C hemistry - challengeon 03-04-2022 ALP [Catalytic activity/Vol] 204 U/L 45-117 [facility] Work Phone: [phone] ALT [Catalytic activity/Vol] 61 U/L 16-61 [facility] Work Phone: CO2 [Moles/Vol] 30.0 mmol/L 21.0-32.0 [facility] Work Phone: Globulin (S) [Mass/Vol] 4.8 g/dL 2.2-4.2 [facility] Work Phone: Urea nitrogen/Creatinine [Mass ratio] 11.1 mg/mg 10-20 [facility] Work Phone: Laboratory - Coagulationon 0 03-04-2022 PT Coag (PPP) [Time] 20.4 s 11.7-14.9 [facility] Work Phone: Laboratory - Hematology and Cell countson 03-04-2022 Erythrocyte distribution width (RBC) [Entitic vol] 55.9 fL 35.1-43.9 [facility] Work Phone: Erythrocyte distribution width (RBC) [Ratio] 14.2 % 11.6-14.6 [facility] Work Phone: Immature granulocytes/100 WBC (Bld) 0.400 % 0.0-0.9 [facility] Work Phone: Comment on above: IG% - Immature Granu locytes (promyelocytes, myelocytes and metamyelocytes) > 1% indicates that a LEFT SHIFT is Present. MCH (RBC) [Entitic mass] 39.4 pg 27.0-32.0 [facility] Work Phone: Nucleated RBC/100 WBC (Bld) [Ratio] 0 % 0-5 [facility] Work Phone: MCHC Auto (RBC) [Mass/Vol]on 03-04-2022 MCHC (RBC) [Mass/Vol] 36.6 g/dL 32-36 [facility] Work Phone: No Panel Informationon 03-04 Estimated GFR (MDRD) Amer 103 mL/min >60 [facility] Work Phone: Comment on above: GFR Calc Estimated GFR (MDRD) Non-Af Amer 85 mL/min >60 [facility] Work Phone: Comment on above: Non- GFR Calc Platelets bldon 03-04-2022 Platelets (Bld) [#/Vol] 93 10*3/uL 150-450 [facility] Work Phone: Serum or plasma albumin leslye urement (mass/volume)on 03-04-2022 Albumin [Mass/Vol] 2.8 g/dL 3.2-5.0 [facility] Work Phone: Serum or plasma albumin/glob ulin mass ratioon 03-04-2022 Albumin/Globulin [Mass ratio] 0.6 {ratio} 0.9-2.4 [facility] Work Phone: Serum or plasma calcium leslye urement (mass/volume)on 03-04-2022 Calcium [Mass/Vol] 8.5 mg/dL 8.5-10.1 [facility] Work Phone: Serum or plasma creatinine m easurement (mass/volume)on 03-04-2022 Creatinine [Mass/Vol] 1.00 mg/dL 0.70-1.30 [facility] Work Phone: Comment on above: The validity of the calculated GFR & GFRAA in patients over 70 years has not been determined. Clinical correlation is essential. Serum or plasma urea nitroge n measurement (mass/volume)on 03-04-2022 Urea nitrogen [Mass/Vol] 11 mg/dL 7-18 [facility] Work Phone: Thin prep Papanicolaou smear with manual screeningon 03-04-2022 Thin prep Papanicolaou smear with manual screening 87 U/L 15-37 [facility] Work Phone: Thin prep Papanicolaou smear with manual screening 6 5-15 [facility] Work Phone: Glucose Glucometer (BldC) [M ass/Vol]on 03-03-2022 Glucose [Mass/Vol] 85 mg/dL 74-106 [facility] Work Phone: Comment on above: MANAGEMENT OF PATIEN T CARE PER NURSING PROTOCOL Basophil percentageon 2021 Bilirubin [Mass/Vol] 4.40 mg/dL 0.20-1.00 [facility] Work Phone: Comment on above: For patients on eltr ombopag therapy, use of Dimension [place] TBIL is not recommended. Chloride [Moles/Vol] 103 mmol/L 98-107 [facility] Work Phone: Glucose [Mass/Vol] 137 mg/dL 74-106 [facility] Work Phone: Comment on above: Fasting Glucose resu lt greater than or equal to 126 mg/dL suggests DIABETES MELLITUS per A.D.A. criteria. Potassium [Moles/Vol] 4.4 mmol/L 3.5-5.1 [facility] Work Phone: Protein [Mass/Vol] 7.6 g/dL 6.4-8.2 [facility] Work Phone: Sodium [Moles/Vol] 135 mmol/L 136-145 [facility] Work Phone: INR in Blood by Coagulation assayon 02-14-2022 INR Coag (Bld) [Relative time] 1.8 {INR} [facility] Work Phone: Laboratory - Chemistry and C hemistry - challengeon 02-14-2022 ALP [Catalytic activity/Vol] 264 U/L 45-117 [facility] Work Phone: ALT [Catalytic activity/Vol] 47 U/L 16-61 [facility] Work Phone: CO2 [Moles/Vol] 28.0 mmol/L 21.0-32.0 [facility] Work Phone: Globulin (S) [Mass/Vol] 4.6 g/dL 2.2-4.2 [facility] Work Phone: Urea nitrogen/Creatinine [Mass ratio] 11.0 mg/mg 10-20 [facility] Work Phone: Laboratory - Coagulationon 0 02-14-2022 PT Coag (PPP) [Time] 20.4 s 11.7-14.9 [facility] Work Phone: No Panel Informationon 02-14 Estimated GFR (MDRD) Amer 114 mL/min >60 [facility] Work Phone: Comment on above: GFR Calc Estimated GFR (MDRD) Non-Af Amer 95 mL/min >60 [facility] Work Phone: Comment on above: Non- GFR Calc Serum or plasma albumin leslye urement (mass/volume)on 02-14-2022 Albumin [Mass/Vol] 3.0 g/dL 3.2-5.0 [facility] Work Phone: Serum or plasma albumin/glob ulin mass ratioon 02-14-2022 Albumin/Globulin [Mass ratio] 0.7 {ratio} 0.9-2.4 [facility] Work Phone: Serum or plasma calcium leslye urement (mass/volume)on 02-14-2022 Calcium [Mass/Vol] 8.7 mg/dL 8.5-10.1 [facility] Work Phone: Serum or plasma creatinine m easurement (mass/volume)on 02-14-2022 Creatinine [Mass/Vol] 0.91 mg/dL 0.70-1.30 [facility] Work Phone: Comment on above: The validity of the calculated GFR & GFRAA in patients over 70 years has not been determined. Clinical correlation is essential. Serum or plasma urea nitroge n measurement (mass/volume)on 02-14-2022 Urea nitrogen [Mass/Vol] 10 mg/dL 7-18 [facility] Work Phone: Thin prep Papanicolaou smear with manual screeningon 02-14-2022 Thin prep Papanicolaou smear with manual screening 62 U/L 15-37 [facility] Work Phone: Thin prep Papanicolaou smear with manual screening 4 5-15 [facility] Work Phone: Absolute lymphocyte counton 12-24-2021 Lymphocytes Auto (Unsp spec) [#/Vol] 0.87 10*3/uL 0.83-4.51 [facility] Work Phone: Basophil percentageon 2021 Ammonia (P) [Moles/Vol] 77.0 umol/L 11-32 [facility] Work Phone: [phone] Basophils/100 WBC (Bld) 0.9 % 0-1 [facility] Work Phone: Bilirubin [Mass/Vol] 4.30 mg/dL 0.20-1.00 [facility] Work Phone: Comment on above: For patients on eltr ombopag therapy, use of Dimension [place] TBIL is not recommended. Chloride [Moles/Vol] 101 mmol/L 98-107 [facility] Work Phone: Eosinophils/100 WBC (Bld) 3.4 % 0-5 [facility] Work Phone: Glucose [Mass/Vol] 125 mg/dL 74-106 [facility] Work Phone: Comment on above: Fasting Glucose resu lt from 100 to 125 mg/dL suggests IMPAIRED HOMEOSTASIS per A.D.A. criteria. Neutrophils (Bld) [#/Vol] 3.9 10*3/uL 2.0-7.7 [facility] Work Phone: Neutrophils/100 WBC (Bld) 70.4 % 47-70 [facility] Work Phone: Potassium [Moles/Vol] 4.0 mmol/L 3.5-5.1 [facility] Work Phone: Protein [Mass/Vol] 8.0 g/dL 6.4-8.2 [facility] Work Phone: Sodium [Moles/Vol] 134 mmol/L 136-145 [facility] Work Phone: WBC (Bld) [#/Vol] 5.6 10*3/uL 4.4-11.0 [facility] Work Phone: Blood erythrocytes count (nu mber/volume)on 12-24-2021 RBC (Bld) [#/Vol] 3.32 10*6/uL 4.6-6.2 [facility] Work Phone: Blood hemoglobin measurement (mass/volume)on 12-24-2021 Hemoglobin (Bld) [Mass/Vol] 13.4 g/dL 13.0-16.5 [facility] Work Phone: Blood lymphocytes/100 leukoc yteson 12-24-2021 Lymphocytes/100 WBC (Bld) 15.6 % 19-41 [facility] Work Phone: Blood monocytes/100 leukocyt eson 12-24-2021 Monocytes/100 WBC (Bld) 9.5 % 0-10 [facility] Work Phone: Blood platelet mean volumeon 12-24-2021 Platelet mean volume (Bld) [Entitic vol] 9.6 fL 6.2-12.0 [facility] Work Phone: Determination of erythrocyte mean corpuscular volume (MCV)on 12-24-2021 MCV (RBC) [Entitic vol] 112.7 fL 80-94 [facility] Work Phone: Erythrocyte sedimentation ra syed 12-24-2021 ESR (Bld) [Velocity] 37 mm/h 0-20 [facility] Work Phone: Hematocrit Auto (Bld) [Volum e fraction]on 12-24-2021 Hematocrit (Bld) [Volume fraction] 37.4 % 40-54 [facility] Work Phone: INR in Blood by Coagulation assayon 12-24-2021 INR Coag (Bld) [Relative time] 1.7 {INR} [facility] Work Phone: Laboratory - Chemistry and C hemistry - challengeon 12-24-2021 ALP [Catalytic activity/Vol] 231 U/L 45-117 [facility] Work Phone: ALT [Catalytic activity/Vol] 47 U/L 16-61 [facility] Work Phone: CO2 [Moles/Vol] 27.0 mmol/L 21.0-32.0 [facility] Work Phone: Globulin (S) [Mass/Vol] 5.1 g/dL 2.2-4.2 [facility] Work Phone: Urea nitrogen/Creatinine [Mass ratio] 14.8 mg/mg 10-20 [facility] Work Phone: Laboratory - Coagulationon 0 12-24-2021 PT Coag (PPP) [Time] 19.3 s 11.7-14.9 [facility] Work Phone: Laboratory - Hematology and Cell countson 12-24-2021 Erythrocyte distribution width (RBC) [Entitic vol] 53.7 fL 35.1-43.9 [facility] Work Phone: Erythrocyte distribution width (RBC) [Ratio] 12.9 % 11.6-14.6 [facility] Work Phone: Immature granulocytes/100 WBC (Bld) 0.200 % 0.0-0.9 [facility] Work Phone: Comment on above: IG% - Immature Granu locytes (promyelocytes, myelocytes and metamyelocytes) > 1% indicates that a LEFT SHIFT is Present. MCH (RBC) [Entitic mass] 40.4 pg 27.0-32.0 [facility] Work Phone: Nucleated RBC/100 WBC (Bld) [Ratio] 0 % 0-5 [facility] Work Phone: MCHC Auto (RBC) [Mass/Vol]on 12-24-2021 MCHC (RBC) [Mass/Vol] 35.8 g/dL 32-36 [facility] Work Phone: No Panel Informationon 12-24 Estimated GFR (MDRD) Amer 120 mL/min >60 [facility] Work Phone: Comment on above: GFR Calc Estimated GFR (MDRD) Non-Af Amer 99 mL/min >60 [facility] Work Phone: Comment on above: Non- GFR Calc Platelets bldon 12-24-2021 Platelets (Bld) [#/Vol] 105 10*3/uL 150-450 [facility] Work Phone: Serum or plasma C reactive p rotein measurement (mass/volume)on 12-24-2021 CRP [Mass/Vol] 3.33 mg/L 0.0-3.0 [facility] Work Phone: Comment on above: C-Reactive Protein ( CRP) provides useful information for thediagnosis, therapy and monitoring of inflammatory processesand associated diseases. For the evaluation of Relative Riskfor Cardiovascular Disease, a High Sensitivity CRP (HSCRP)should be ordered. Serum or plasma albumin leslye urement (mass/volume)on 12-24-2021 Albumin [Mass/Vol] 2.9 g/dL 3.2-5.0 [facility] Work Phone: Serum or plasma albumin/glob ulin mass ratioon 12-24-2021 Albumin/Globulin [Mass ratio] 0.6 {ratio} 0.9-2.4 [facility] Work Phone: Serum or plasma calcium leslye urement (mass/volume)on 12-24-2021 Calcium [Mass/Vol] 8.9 mg/dL 8.5-10.1 [facility] Work Phone: Serum or plasma creatinine m easurement (mass/volume)on 12-24-2021 Creatinine [Mass/Vol] 0.88 mg/dL 0.70-1.30 [facility] Work Phone: Comment on above: The validity of the calculated GFR & GFRAA in patients over 70 years has not been determined. Clinical correlation is essential. Serum or plasma urea nitroge n measurement (mass/volume)on 12-24-2021 Urea nitrogen [Mass/Vol] 13 mg/dL 7-18 [facility] Work Phone: Thin prep Papanicolaou smear with manual screeningon 12-24-2021 Thin prep Papanicolaou smear with manual screening 66 U/L 15-37 [facility] Work Phone: Thin prep Papanicolaou smear with manual screening 6 5-15 [facility] Work Phone: Thin prep Papanicolaou smear with manual screening 242 U/L 87-241 [facility] Work Phone: Basophil percentageon 2021 Chloride [Moles/Vol] 99 mmol/L 98-107 [facility] Work Phone: Glucose [Mass/Vol] 137 mg/dL 74-106 [facility] Work Phone: Comment on above: Fasting Glucose resu lt greater than or equal to 126 mg/dL suggests DIABETES MELLITUS per A.D.A. criteria. Potassium [Moles/Vol] 4.7 mmol/L 3.5-5.1 [facility] Work Phone: Sodium [Moles/Vol] 133 mmol/L 136-145 [facility] Work Phone: Laboratory - Chemistry and C hemistry - challengeon 12-08-2021 CO2 [Moles/Vol] 28.0 mmol/L 21.0-32.0 [facility] Work Phone: Urea nitrogen/Creatinine [Mass ratio] 22.4 mg/mg 10-20 [facility] Work Phone: Laboratory - Hematology and Cell countson 12-08-2021 HbA1c (Bld) [Mass fraction] 4.3 % 4.2-6.3 [facility] Work Phone: No Panel Informationon 12-08 Insulin Level 118.4 mU/L 2.6-37.6 [facility] Work Phone: Comment on above: Please Note: INSULIN METHOD & REFERENCE RANGE CHANGEEffective 07/27/2017. Estimated GFR (MDRD) Amer 124 mL/min >60 [facility] Work Phone: Comment on above: GFR Calc Estimated GFR (MDRD) Non-Af Amer 102 mL/min >60 [facility] Work Phone: Comment on above: Non- GFR Calc Serum or plasma calcium leslye urement (mass/volume)on 12-08-2021 Calcium [Mass/Vol] 8.9 mg/dL 8.5-10.1 [facility] Work Phone: Serum or plasma creatinine m easurement (mass/volume)on 12-08-2021 Creatinine [Mass/Vol] 0.85 mg/dL 0.70-1.30 [facility] Work Phone: Comment on above: The validity of the calculated GFR & GFRAA in patients over 70 years has not been determined. Clinical correlation is essential. Serum or plasma urea nitroge n measurement (mass/volume)on 12-08-2021 Urea nitrogen [Mass/Vol] 19 mg/dL 7-18 [facility] Work Phone: Thin prep Papanicolaou smear with manual screeningon 12-08-2021 Thin prep Papanicolaou smear with manual screening 6 5-15 [facility] Work Phone: Whole blood hemoglobin A1c/t otal hemoglobin ratio (mass fraction)on 12-08-2021 HbA1c (Bld) [Mass fraction] 4.2 % 3.8-5.6 [facility] Work Phone: Comment on above: Normal < 5.7 % Predi abetic 5.7 - 6.4 % Diabetic >or= 6.5 % Please note range changes. Glucose Glucometer (BldC) [M ass/Vol]on 12-02-2021 Glucose [Mass/Vol] 109 mg/dL 74-106 [facility] Work Phone: Comment on above: MANAGEMENT OF PATIEN T CARE PER NURSING PROTOCOL Absolute lymphocyte counton 11-29-2021 Lymphocytes Auto (Unsp spec) [#/Vol] 1.07 10*3/uL 0.83-4.51 [facility] Work Phone: Basophil percentageon 2021 Ammonia (P) [Moles/Vol] 56.0 umol/L 11-32 [facility] Work Phone: [phone] Basophils/100 WBC (Bld) 0.7 % 0-1 [facility] Work Phone: [phone] Bilirubin [Mass/Vol] 3.90 mg/dL 0.20-1.00 [facility] Work Phone: [phone] Comment on above: For patients on eltr ombopag therapy, use of Dimension [place] TBIL is not recommended. Chloride [Moles/Vol] 103 mmol/L 98-107 [facility] Work Phone: [phone] Eosinophils/100 WBC (Bld) 5.1 % 0-5 [facility] Work Phone: [phone] Glucose [Mass/Vol] 143 mg/dL 74-106 [facility] Work Phone: [phone] Comment on above: Fasting Glucose resu lt greater than or equal to 126 mg/dL suggests DIABETES MELLITUS per A.D.A. criteria. Neutrophils (Bld) [#/Vol] 3.7 10*3/uL 2.0-7.7 [facility] Work Phone: [phone] Neutrophils/100 WBC (Bld) 63.4 % 47-70 [facility] Work Phone: [phone] Potassium [Moles/Vol] 4.5 mmol/L 3.5-5.1 [facility] Work Phone: [phone] Protein [Mass/Vol] 7.2 g/dL 6.4-8.2 [facility] Work Phone: [phone] Sodium [Moles/Vol] 138 mmol/L 136-145 [facility] Work Phone: [phone] WBC (Bld) [#/Vol] 5.9 10*3/uL 4.4-11.0 [facility] Work Phone: [phone] Blood erythrocytes count (nu mber/volume)on 11-29-2021 RBC (Bld) [#/Vol] 2.73 10*6/uL 4.6-6.2 [facility] Work Phone: Blood hemoglobin measurement (mass/volume)on 11-29-2021 Hemoglobin (Bld) [Mass/Vol] 11.3 g/dL 13.0-16.5 [facility] Work Phone: Blood lymphocytes/100 leukoc yteson 11-29-2021 Lymphocytes/100 WBC (Bld) 18.3 % 19-41 [facility] Work Phone: Blood monocytes/100 leukocyt eson 11-29-2021 Monocytes/100 WBC (Bld) 11.8 % 0-10 [facility] Work Phone: Blood platelet mean volumeon 11-29-2021 Platelet mean volume (Bld) [Entitic vol] 9.3 fL 6.2-12.0 [facility] Work Phone: Determination of erythrocyte mean corpuscular volume (MCV)on 11-29-2021 MCV (RBC) [Entitic vol] 116.1 fL 80-94 [facility] Work Phone: Direct bilirubinon 2 Bilirubin.direct [Mass/Vol] 1.80 mg/dL 0.00-0.30 [facility] Work Phone: Hematocrit Auto (Bld) [Volum e fraction]on 11-29-2021 Hematocrit (Bld) [Volume fraction] 31.7 % 40-54 [facility] Work Phone: INR in Blood by Coagulation assayon 11-29-2021 INR Coag (Bld) [Relative time] 1.8 {INR} [facility] Work Phone: Laboratory - Chemistry and C hemistry - challengeon 11-29-2021 ALP [Catalytic activity/Vol] 253 U/L 45-117 [facility] Work Phone: ALT [Catalytic activity/Vol] 68 U/L 16-61 [facility] Work Phone: CO2 [Moles/Vol] 29.0 mmol/L 21.0-32.0 [facility] Work Phone: Globulin (S) [Mass/Vol] 4.6 g/dL 2.2-4.2 [facility] Work Phone: Urea nitrogen/Creatinine [Mass ratio] 18.4 mg/mg 10-20 [facility] Work Phone: Laboratory - Coagulationon 0 11-29-2021 PT Coag (PPP) [Time] 20.7 s 11.7-14.9 [facility] Work Phone: Laboratory - Hematology and Cell countson 11-29-2021 Erythrocyte distribution width (RBC) [Entitic vol] 61.1 fL 35.1-43.9 [facility] Work Phone: Erythrocyte distribution width (RBC) [Ratio] 14.2 % 11.6-14.6 [facility] Work Phone: Immature granulocytes/100 WBC (Bld) 0.700 % 0.0-0.9 [facility] Work Phone: Comment on above: IG% - Immature Granu locytes (promyelocytes, myelocytes and metamyelocytes) > 1% indicates that a LEFT SHIFT is Present. MCH (RBC) [Entitic mass] 41.4 pg 27.0-32.0 [facility] Work Phone: Nucleated RBC/100 WBC (Bld) [Ratio] 0 % 0-5 [facility] Work Phone: MCHC Auto (RBC) [Mass/Vol]on 11-29-2021 MCHC (RBC) [Mass/Vol] 35.6 g/dL 32-36 [facility] Work Phone: No Panel Informationon 11-29 Estimated GFR (MDRD) Amer 113 mL/min >60 [facility] Work Phone: Comment on above: GFR Calc Estimated GFR (MDRD) Non-Af Amer 93 mL/min >60 [facility] Work Phone: Comment on above: Non- GFR Calc Platelets bldon 11-29-2021 Platelets (Bld) [#/Vol] 111 10*3/uL 150-450 [facility] Work Phone: Serum or plasma albumin leslye urement (mass/volume)on 11-29-2021 Albumin [Mass/Vol] 2.6 g/dL 3.2-5.0 [facility] Work Phone: Serum or plasma albumin/glob ulin mass ratioon 11-29-2021 Albumin/Globulin [Mass ratio] 0.6 {ratio} 0.9-2.4 [facility] Work Phone: Serum or plasma calcium leslye urement (mass/volume)on 11-29-2021 Calcium [Mass/Vol] 8.8 mg/dL 8.5-10.1 [facility] Work Phone: Serum or plasma creatinine m easurement (mass/volume)on 11-29-2021 Creatinine [Mass/Vol] 0.92 mg/dL 0.70-1.30 [facility] Work Phone: Comment on above: The validity of the calculated GFR & GFRAA in patients over 70 years has not been determined. Clinical correlation is essential. Serum or plasma urea nitroge n measurement (mass/volume)on 11-29-2021 Urea nitrogen [Mass/Vol] 17 mg/dL 7-18 [facility] Work Phone: Thin prep Papanicolaou smear with manual screeningon 11-29-2021 Thin prep Papanicolaou smear with manual screening 90 U/L 15-37 [facility] Work Phone: Thin prep Papanicolaou smear with manual screening 6 5-15 [facility] Work Phone: Basophil percentageon 2021 Basophil percentage 0 SEEN /hpf 0-5 [facility] Work Phone: Bilirubin Test strip Ql (U)o n 05-06-2022 Bilirubin Ql (U) Negative Negative [facility] Work Phone: Ketones Test strip Ql (U)on 11-19-2021 Ketones Ql (U) Negative Negative [facility] Work Phone: Mucus LM Ql (Urine sed)on Mucus Ql (Urine sed) 0 SEEN /hpf [facility] Work Phone: Nitrite Test strip Ql (U)on 11-19-2021 Nitrite Ql (U) Negative Negative [facility] Work Phone: No Panel Informationon 11-19 Prostate Specific Antigen Screen 0.10 ng/mL 0.00-4.00 [facility] Work Phone: Comment on above: This test was perfor med using the TPSA assay method for [employer] chemistry system. Values obtained with differentassay methods cannot be used interchangably.When changing PSA assays in the course of monitoring apatient, additional sequential testing should be carriedout to confirm baseline values. Protein Test strip Ql (U)on 11-19-2021 Protein Ql (U) Negative Negative [facility] Work Phone: Squamous epithelial cells de tection in urine sediment by light microscopyon 11-19-2021 Epithelial cells.squamous LM Ql (Urine sed) 0 SEEN /hpf 0-5 [facility] Work Phone: Urine blood detectionon RBC Ql (U) Negative Negative [facility] Work Phone: RBC Ql (U) 0 SEEN /hpf 0-5 [facility] Work Phone: Urine clarityon 11-19-2021 Clarity (U) Clear Clear [facility] Work Phone: Urine color determinationon 11-19-2021 Color (U) Yellow Yellow [facility] Work Phone: Urine glucose detectionon Glucose Ql (U) Normal mg/dl Normal [facility] Work Phone: Urine leukocyte esterase det ection by dipstickon 11-19-2021 Leukocyte esterase Test strip Ql (U) Negative Negative [facility] Work Phone: Urine pHon 11-19-2021 pH (U) 6.0 [pH] 5.0 - 8.0 [facility] Work Phone: Urine sediment bacteria coun t by microscopy (number/high power field)on 11-19-2021 Bacteria LM.HPF (Urine sed) [#/Area] 0 /[HPF] None Seen [facility] Work Phone: Urine specific gravity measu rementon 11-19-2021 Specific gravity (U) [Rel density] 1.010 1.002-1.030 [facility] Work Phone: Urobilinogen Auto test strip Ql (U)on 11-19-2021 Urobilinogen Ql (U) Normal mg/dl Normal [facility] Work Phone: Basophil percentageon 2021 Bilirubin [Mass/Vol] 3.60 mg/dL 0.20-1.00 [facility] Work Phone: Comment on above: For patients on eltr ombopag therapy, use of Dim[employer] [place] TBIL is not recommended. Chloride [Moles/Vol] 104 mmol/L 98-107 [facility] Work Phone: Glucose [Mass/Vol] 123 mg/dL 74-106 [facility] Work Phone: Comment on above: Fasting Glucose resu lt from 100 to 125 mg/dL suggests IMPAIRED HOMEOSTASIS per A.D.A. criteria. Potassium [Moles/Vol] 4.9 mmol/L 3.5-5.1 [facility] Work Phone: Protein [Mass/Vol] 7.3 g/dL 6.4-8.2 [facility] Work Phone: Sodium [Moles/Vol] 137 mmol/L 136-145 [facility] Work Phone: INR in Blood by Coagulation assayon 11-12-2021 INR Coag (Bld) [Relative time] 1.7 {INR} [facility] Work Phone: Laboratory - Chemistry and C hemistry - challengeon 11-12-2021 ALP [Catalytic activity/Vol] 275 U/L 45-117 [facility] Work Phone: ALT [Catalytic activity/Vol] 57 U/L 16-61 [facility] Work Phone: CO2 [Moles/Vol] 29.0 mmol/L 21.0-32.0 [facility] Work Phone: Globulin (S) [Mass/Vol] 4.7 g/dL 2.2-4.2 [facility] Work Phone: Urea nitrogen/Creatinine [Mass ratio] 30.4 mg/mg 10-20 [facility] Work Phone: Laboratory - Coagulationon 0 11-12-2021 PT Coag (PPP) [Time] 19.7 s 11.7-14.9 [facility] Work Phone: No Panel Informationon 11-12 Estimated GFR (MDRD) Amer 100 mL/min >60 [facility] Work Phone: Comment on above: GFR Calc Estimated GFR (MDRD) Non-Af Amer 83 mL/min >60 [facility] Work Phone: Comment on above: Non- GFR Calc Serum or plasma albumin leslye urement (mass/volume)on 11-12-2021 Albumin [Mass/Vol] 2.6 g/dL 3.2-5.0 [facility] Work Phone: Serum or plasma albumin/glob ulin mass ratioon 11-12-2021 Albumin/Globulin [Mass ratio] 0.6 {ratio} 0.9-2.4 [facility] Work Phone: Serum or plasma calcium leslye urement (mass/volume)on 11-12-2021 Calcium [Mass/Vol] 8.9 mg/dL 8.5-10.1 [facility] Work Phone: Serum or plasma creatinine m easurement (mass/volume)on 11-12-2021 Creatinine [Mass/Vol] 1.02 mg/dL 0.70-1.30 [facility] Work Phone: Comment on above: The validity of the calculated GFR & GFRAA in patients over 70 years has not been determined. Clinical correlation is essential. Serum or plasma urea nitroge n measurement (mass/volume)on 11-12-2021 Urea nitrogen [Mass/Vol] 31 mg/dL 7-18 [facility] Work Phone: Thin prep Papanicolaou smear with manual screeningon 11-12-2021 Thin prep Papanicolaou smear with manual screening 69 U/L 15-37 [facility] Work Phone: Thin prep Papanicolaou smear with manual screening 4 5-15 [facility] Work Phone: Absolute lymphocyte counton 10-27-2021 Lymphocytes Auto (Unsp spec) [#/Vol] 1.08 10*3/uL 0.83-4.51 [facility] Work Phone: Basophil percentageon 2021 Basophils/100 WBC (Bld) 1.1 % 0-1 [facility] Work Phone: Bilirubin [Mass/Vol] 3.60 mg/dL 0.20-1.00 [facility] Work Phone: Comment on above: For patients on eltr ombopag therapy, use of [employer] [place] TBIL is not recommended. Chloride [Moles/Vol] 103 mmol/L 98-107 [facility] Work Phone: Eosinophils/100 WBC (Bld) 5.2 % 0-5 [facility] Work Phone: Glucose [Mass/Vol] 126 mg/dL 74-106 [facility] Work Phone: Comment on above: Fasting Glucose resu lt greater than or equal to 126 mg/dL suggests DIABETES MELLITUS per A.D.A. criteria. Neutrophils (Bld) [#/Vol] 3.5 10*3/uL 2.0-7.7 [facility] Work Phone: Neutrophils/100 WBC (Bld) 63.3 % 47-70 [facility] Work Phone: [phone] Potassium [Moles/Vol] 4.2 mmol/L 3.5-5.1 [facility] Work Phone: Protein [Mass/Vol] 7.6 g/dL 6.4-8.2 [facility] Work Phone: Sodium [Moles/Vol] 136 mmol/L 136-145 [facility] Work Phone: WBC (Bld) [#/Vol] 5.6 10*3/uL 4.4-11.0 [facility] Work Phone: Bilirubin Test strip Ql (U)o n 10-27-2021 Bilirubin Ql (U) Negative Negative [facility] Work Phone: Blood erythrocytes count (nu mber/volume)on 10-27-2021 RBC (Bld) [#/Vol] 2.92 10*6/uL 4.6-6.2 [facility] Work Phone: Blood hemoglobin measurement (mass/volume)on 10-27-2021 Hemoglobin (Bld) [Mass/Vol] 11.6 g/dL 13.0-16.5 [facility] Work Phone: Blood lymphocytes/100 leukoc yteson 10-27-2021 Lymphocytes/100 WBC (Bld) 19.4 % 19-41 [facility] Work Phone: Blood monocytes/100 leukocyt eson 10-27-2021 Monocytes/100 WBC (Bld) 10.6 % 0-10 [facility] Work Phone: Blood platelet mean volumeon 10-27-2021 Platelet mean volume (Bld) [Entitic vol] 10.5 fL 6.2-12.0 [facility] Work Phone: Determination of erythrocyte mean corpuscular volume (MCV)on 10-27-2021 MCV (RBC) [Entitic vol] 111.3 fL 80-94 [facility] Work Phone: Dilute Junior's viper venom timeon 10-27-2021 dRVVT Coag (PPP) [Time] 37.9 s [facility] Work Phone: Hematocrit Auto (Bld) [Volum e fraction]on 10-27-2021 Hematocrit (Bld) [Volume fraction] 32.5 % 40-54 [facility] Work Phone: INR in Blood by Coagulation assayon 10-27-2021 INR Coag (Bld) [Relative time] 1.7 {INR} [facility] Work Phone: Ketones Test strip Ql (U)on 10-27-2021 Ketones Ql (U) Negative Negative [facility] Work Phone: Laboratory - Chemistry and C hemistry - challengeon 10-27-2021 ALP [Catalytic activity/Vol] 268 U/L 45-117 [facility] Work Phone: ALT [Catalytic activity/Vol] 69 U/L 16-61 [facility] Work Phone: CO2 [Moles/Vol] 28.0 mmol/L 21.0-32.0 [facility] Work Phone: Globulin (S) [Mass/Vol] 4.8 g/dL 2.2-4.2 [facility] Work Phone: Urea nitrogen/Creatinine [Mass ratio] 15.0 mg/mg 10-20 [facility] Work Phone: Laboratory - Coagulationon 0 10-27-2021 aPTT Coag (Bld) [Time] 43.8 s 24.1-36.2 [facility] Work Phone: PT Coag (PPP) [Time] 19.5 s 11.7-14.9 [facility] Work Phone: Laboratory - Hematology and Cell countson 10-27-2021 Erythrocyte distribution width (RBC) [Entitic vol] 54.0 fL 35.1-43.9 [facility] Work Phone: Erythrocyte distribution width (RBC) [Ratio] 13.2 % 11.6-14.6 [facility] Work Phone: Immature granulocytes/100 WBC (Bld) 0.400 % 0.0-0.9 [facility] Work Phone: Comment on above: IG% - Immature Granu locytes (promyelocytes, myelocytes and metamyelocytes) > 1% indicates that a LEFT SHIFT is Present. MCH (RBC) [Entitic mass] 39.7 pg 27.0-32.0 [facility] Work Phone: Nucleated RBC/100 WBC (Bld) [Ratio] 0 % 0-5 [facility] Work Phone: Laboratory - Miscellaneous t estson 10-27-2021 Service comment (Unsp spec) [Interp] Comment [facility] Work Phone: Comment on above: Results do not indic ate the presence of a LupusAnticoagulant: abnormal high screening results (PTT-LA,dRVVT, mixing studies), may be due to medication (heparin,warfarin, aspirin), Factor inhibitors, anticardiolipinantibodies, or poor specimen integrity.Performed at: [address] [id number] Director: Ermelinda Birmingham MD, Phone: [phone] MCHC Auto (RBC) [Mass/Vol]on 10-27-2021 MCHC (RBC) [Mass/Vol] 35.7 g/dL 32-36 [facility] Work Phone: Nitrite Test strip Ql (U)on 10-27-2021 Nitrite Ql (U) Negative Negative [facility] Work Phone: No Panel Informationon 10-27 Estimated GFR (MDRD) Amer 103 mL/min >60 [facility] Work Phone: Comment on above: GFR Calc Estimated GFR (MDRD) Non-Af Amer 85 mL/min >60 [facility] Work Phone: Comment on above: Non- GFR Calc Miscellaneous Test See [facility]: Comment on above: TEST RESULT LIMITSHe red.Hemochromatosis, DNA Hereditary Hemochromatosis Results: c.845G>A (p.Agj181Cpb) - Not Detected c.187C>G (p.Hro85Kkj) - Detected, heterozygous c.193A>T (p.Rbp62Kay) - Not Detected Not associated with increased [...] for patients who are homozygous for c.845G>A (p.Fwn518Rfc) and have yet to experience clinical symptoms.Comments: The most common HFE variants associated with hereditary hemochromatosis are c.845G>A (p.Mxd292Wrk), c.187C>G (p.Lsn86Oic), c.193A>T (p.Jlw42Ahb). While patients homozygous for c.845G>A (p.Tif948Asx) are the most likely to present clinical symptoms, less than 10% develop clinically significant iron overload with tissue and organ damage. Genetic counseling is recommended to discuss the potential clinical implications of positive results, as well as recommendations for testing family members. Genetic Coordinators are available for health care providers to discuss results at [phone] Test Details: Three variants analyzed: c.845G>A (p.Fhi195Zqo), commonly referred to as C282Y c.187C>G (p.Uol77Mmp), commonly referred to as H63D c.193A>T (p.Jmf20Vlq), commonly referred to as B10ZQjbrvef/Limitations: DNA Analysis of the HFE gene (NM_000410.4) [...] developed and its performance characteristics determined by [employer]. It has not been cleared or approved by the Food and Drug Administration.References:Justin BR, Nestor PC, Anmol KV, Mauro LW, Alen ; [employer]. Diagnosis and management of hemochromatosis: 2011 practice guideline by the [employer]. Hepatology. 2011 Jan;54(1):328-43. doi: 10.1002/hep.94697. PMID: 29240440; PMCID: [id number].Rose G, Rolanda P, Tam DW, Bryon H, Jacque O, Slade S, Balta I, Musa M, Madie S. [facility] best practice guidelines for the molecular genetic diagnosis of hereditary hemochromatosis (HH). Eur J Hum Tori. 2016 Oct;24(4):479-95. doi: 10.1038/ejhg.2015.128. Epub 2014Jan 21. PMID: 32263838; PMCID: [id number]. Rachna Marquez, PhD, Katherine Allan, PhD, Isha Crockett, PhD, Earl Deleon, PhD, FACMARTHA Gómez, PhD, Tyson Morrow, PhD, Wyatt Chappell, PhD, [facility] TESTING PERFORMED AT [facility]. ORIGINAL REPORT ON FILE IN LAB CONTAINS ADDITIONAL TEST SITE INFORMATION. Miscellaneous Test Comment MAILED SPECIMEN [facility] Work Phone: Platelets bldon 10-27-2021 Platelets (Bld) [#/Vol] 108 10*3/uL 150-450 [facility] Work Phone: Protein Test strip Ql (U)on 10-27-2021 Protein Ql (U) Negative Negative [facility] Work Phone: Serum or plasma albumin leslye urement (mass/volume)on 10-27-2021 Albumin [Mass/Vol] 2.8 g/dL 3.2-5.0 [facility] Work Phone: Serum or plasma albumin/glob ulin mass ratioon 10-27-2021 Albumin/Globulin [Mass ratio] 0.6 {ratio} 0.9-2.4 [facility] Work Phone: Serum or plasma calcium leslye urement (mass/volume)on 10-27-2021 Calcium [Mass/Vol] 9.2 mg/dL 8.5-10.1 [facility] Work Phone: Serum or plasma creatinine m easurement (mass/volume)on 10-27-2021 Creatinine [Mass/Vol] 1.00 mg/dL 0.70-1.30 [facility] Work Phone: Comment on above: The validity of the calculated GFR & GFRAA in patients over 70 years has not been determined. Clinical correlation is essential. Serum or plasma urea nitroge n measurement (mass/volume)on 10-27-2021 Urea nitrogen [Mass/Vol] 15 mg/dL 7-18 [facility] Work Phone: Thin prep Papanicolaou smear with manual screeningon 10-27-2021 Thin prep Papanicolaou smear with manual screening 88 U/L 15-37 [facility] Work Phone: Thin prep Papanicolaou smear with manual screening 5 5-15 [facility] Work Phone: Thin prep Papanicolaou smear with manual screening 45.2 sec [facility] Work Phone: Thin prep Papanicolaou smear with manual screening 0.71 Ratio [facility] Work Phone: [phone] Thin prep Papanicolaou smear with manual screening 49.0 sec [facility] Work Phone: Thin prep Papanicolaou smear with manual screening Comment: [facility] Work Phone: Comment on above: No lupus anticoagula nt was detected. Thrombin time in platelet po or plasmaon 10-27-2021 Thrombin time Coag (PPP) [Time] 20.3 sec [facility] Work Phone: Urine blood detectionon 10-15 RBC Ql (U) Negative Negative [facility] Work Phone: Urine clarityon 10-27-2021 Clarity (U) Clear Clear [facility] Work Phone: Urine color determinationon 10-27-2021 Color (U) Yellow Yellow [facility] Work Phone: Urine creatinine measurement (mass/volume)on 10-27-2021 Creatinine (U) [Mass/Vol] 31.10 mg/dL NO RANGE EST. [facility] Work Phone: Urine glucose detectionon Glucose Ql (U) Normal mg/dl Normal [facility] Work Phone: Urine leukocyte esterase det ection by dipstickon 10-27-2021 Leukocyte esterase Test strip Ql (U) Negative Negative [facility] Work Phone: Urine pHon 10-27-2021 pH (U) 7.0 [pH] [facility] Work Phone: Urine protein measurement (m ass/volume)on 10-27-2021 Protein (U) [Mass/Vol] mg/dL 0.0-11.8 [facility] Work Phone: Urine protein/creatinine mas s ratioon 10-27-2021 Protein/Creatinine (U) [Mass ratio] TNP [facility] Work Phone: Comment on above: Test not performed Urine specific gravity measu rementon 10-27-2021 Specific gravity (U) [Rel density] 1.010 [facility] Work Phone: Urobilinogen Auto test strip Ql (U)on 10-27-2021 Urobilinogen Ql (U) Normal mg/dl Normal [facility] Work Phone: CNPNon 10-19-2021 CNPN Telephone (TXCTMN) -------- ALEX ROJO ([id number]) 1975 [facility] Date Time Provider Department 10/19/21 [...] Reason for Visit: Referral - Liver Txp [[id number]] Cmt: Intake-LM Problem List As Of Date: 10/19/2021 (None) Encounter Status:Closed by A[facility] ALEX ROJO ([id number]) 1975 [facility] Date Time Provider Department 10/19/21 ASHIA SINHA TXCTMN During your visit today, we recorded the following information about you: Ashia Sinha RN 10/19/2021 3:41 PM Signed I received a phone call back from the pt. He states that he is not willing to get the covid vaccination which is a requirement to be listed at [facility]. He was advised that he can seek other transplant centers that may not require the vaccination and he will look into that. I called and left a message with the referring, Debra Lipscomb NP at [phone] explaining that we will not proceed with transplant evaluation at this time. Referral for transplant closed. Ashia Sinha RN Allergies As of Date: 10/19/2021 (Not on File) Date Reviewed: Never Reviewed Reason for Visit: Referral - Liver Txp [[id number]] Cmt: referral closed Problem List As Of Date: 10/19/2021 (None) Encounter Status:Closed by ASHIA SINHA on 10/19/21 [facility] ALEX ROJO ([id number]) 1975 M [facility] Date Time Provider Department 10/13/21 LIVER TXP COORDINATOR TXCTMN During your visit today, we recorded the following information about you: Eva Guerra 10/13/2021 11:04 AM Signed LIVER TRANSPLANT REFERRAL Alex Rojo [id number] MyCHART Is the patient signed up for MyChart? Yes If YES - send patient the OLT New Referral Message If NO - obtain their email address: email address: [email or web address] CORRECTED: [email or web address] Diagnosis: Acute alcoholic hepatitis-Last drink-over 1 year ago Date of diagnosis: 10-11-2021 MELD Na: 26 COVID-19 Are you vaccinated for COVID19? No If you are vaccinated, which vaccine did you receive? N/A Patient refuses getting the COVID19 Vaccine How long does it take you to drive to [facility]? 1 hour Who will accompany you to your transplant evaluation? Patient's Nicolle. Referring MD: Debra Lipscomb NP Gastro MD: Dr. Sullivan Friend Have you ever been evaluated for liver transplant? No If yes, where? N/A Status: N/A Outside Records Needed: Yes [facility] Requested? Yes Where are outside records being requested from: [facility] Gastroenterology Full or Partial Evaluation? Full Do you have a potential living donor? Not as of yet A nurse will call for medical intake, who should she call and at what phone number? [phone] Please be aware that the call will come from a restricted phone number for intake. Additional Comments: Recently dx'd with diabetes, not on insulin, will see athletic scout on 10-14-2021. Patient recently moved back to [place] 2 months ago from [place]. Liver bx done at [facility]. Question of [place]/CT scan done at [place]. One year ago Eva Guerra Allergies As of Date: 10/13/2021 (Not on File) Date Reviewed: Never Reviewed Reason for Visit: Referral - Liver Txp [[id number]] Primary Visit Diagnosis:Acute alcoholic hepatitis [K70.10] Order(s):CONSULT TO TRANSPLANT CENTER [037188] Order #: [id number]: 1 Problem List As Of Date: 10/13/2021 (None) Encounter Status:Closed by EVA GUERRA on 10/13/21 Normal [facility] INR in Blood by Coagulation assayon 10-11-2021 INR Coag (Bld) [Relative time] 1.7 {INR} [facility] Work Phone: [phone] Laboratory - Coagulationon 0 10-11-2021 aPTT Coag (Bld) [Time] 42.9 s 24.1-36.2 [facility] Work Phone: PT Coag (PPP) [Time] 18.9 s 11.7-14.9 [facility] Work Phone: [phone] Platelets bldon 10-11-2021 Platelets (Bld) [#/Vol] 113 10*3/uL 150-450 [facility] Work Phone: [phone] Absolute lymphocyte counton 09-29-2021 Lymphocytes Auto (Unsp spec) [#/Vol] 1.34 10*3/uL 0.83-4.51 [facility] Work Phone: Basophil percentageon 2021 Ammonia (P) [Moles/Vol] 75.0 umol/L 11-32 [facility] Work Phone: [phone] Basophils/100 WBC (Bld) 1.0 % 0-1 [facility] Work Phone: [phone] Bilirubin [Mass/Vol] 4.70 mg/dL 0.20-1.00 [facility] Work Phone: Comment on above: For patients on eltr ombopag therapy, use of Dimension [place] TBIL is not recommended. Chloride [Moles/Vol] 97 mmol/L 98-107 [facility] Work Phone: [phone] Eosinophils/100 WBC (Bld) 4.6 % 0-5 [facility] Work Phone: [phone] Glucose [Mass/Vol] 142 mg/dL 74-106 [facility] Work Phone: Comment on above: Fasting Glucose resu lt greater than or equal to 126 mg/dL suggests DIABETES MELLITUS per A.D.A. criteria. Neutrophils (Bld) [#/Vol] 5.5 10*3/uL 2.0-7.7 [facility] Work Phone: Neutrophils/100 WBC (Bld) 68.5 % 47-70 [facility] Work Phone: [phone] Potassium [Moles/Vol] 4.2 mmol/L 3.5-5.1 [facility] Work Phone: Protein [Mass/Vol] 8.0 g/dL 6.4-8.2 [facility] Work Phone: [phone] Sodium [Moles/Vol] 130 mmol/L 136-145 [facility] Work Phone: [phone] WBC (Bld) [#/Vol] 8.0 10*3/uL 4.4-11.0 [facility] Work Phone: Blood erythrocytes count (nu mber/volume)on 09-29-2021 RBC (Bld) [#/Vol] 3.14 10*6/uL 4.6-6.2 [facility]: Blood hemoglobin measurement (mass/volume)on 09-29-2021 Hemoglobin (Bld) [Mass/Vol] 12.5 g/dL 13.0-16.5 [facility] Work Phone: Blood lymphocytes/100 leukoc yteson 09-29-2021 Lymphocytes/100 WBC (Bld) 16.8 % 19-41 [facility] Work Phone: Blood monocytes/100 leukocyt eson 09-29-2021 Monocytes/100 WBC (Bld) 8.6 % 0-10 [facility] Work Phone: Blood platelet mean volumeon 09-29-2021 Platelet mean volume (Bld) [Entitic vol] 9.7 fL 6.2-12.0 [facility] Work Phone: Determination of erythrocyte mean corpuscular volume (MCV)on 09-29-2021 MCV (RBC) [Entitic vol] 106.4 fL 80-94 [facility] Work Phone: Direct bilirubinon 2 Bilirubin.direct [Mass/Vol] 1.92 mg/dL 0.00-0.30 [facility] Work Phone: Hematocrit Auto (Bld) [Volum e fraction]on 09-29-2021 Hematocrit (Bld) [Volume fraction] 33.4 % 40-54 [facility] Work Phone: INR in Blood by Coagulation assayon 09-29-2021 INR Coag (Bld) [Relative time] 1.7 {INR} [facility] Work Phone: [phone] Laboratory - Chemistry and C hemistry - challengeon 09-29-2021 ALP [Catalytic activity/Vol] 198 U/L 45-117 [facility] Work Phone: [phone] ALT [Catalytic activity/Vol] 43 U/L 16-61 [facility] Work Phone: CO2 [Moles/Vol] 25.0 mmol/L 21.0-32.0 [facility] Work Phone: [phone] Globulin (S) [Mass/Vol] 5.1 g/dL 2.2-4.2 [facility] Work Phone: [phone] Urea nitrogen/Creatinine [Mass ratio] 21.9 mg/mg 10-20 [facility] Work Phone: Laboratory - Coagulationon 0 09-29-2021 PT Coag (PPP) [Time] 19.1 s 11.7-14.9 [facility] Work Phone: [phone] Laboratory - Hematology and Cell countson 09-29-2021 Erythrocyte distribution width (RBC) [Entitic vol] 52.7 fL 35.1-43.9 [facility] Work Phone: [phone] Erythrocyte distribution width (RBC) [Ratio] 13.3 % 11.6-14.6 [facility] Work Phone: [phone] Immature granulocytes/100 WBC (Bld) 0.500 % 0.0-0.9 [facility] Work Phone: Comment on above: IG% - Immature Granu locytes (promyelocytes, myelocytes and metamyelocytes) > 1% indicates that a LEFT SHIFT is Present. MCH (RBC) [Entitic mass] 39.8 pg 27.0-32.0 [facility] Work Phone: Nucleated RBC/100 WBC (Bld) [Ratio] 0 % 0-5 [facility] Work Phone: MCHC Auto (RBC) [Mass/Vol]on 09-29-2021 MCHC (RBC) [Mass/Vol] 37.4 g/dL 32-36 [facility] Work Phone: No Panel Informationon 09-29 Estimated GFR (MDRD) Amer 66 mL/min >60 [facility] Work Phone: Comment on above: GFR Calc Estimated GFR (MDRD) Non-Af Amer 55 mL/min >60 [facility] Work Phone: Comment on above: Non- GFR Calc Platelets bldon 09-29-2021 Platelets (Bld) [#/Vol] 135 10*3/uL 150-450 [facility] Work Phone: Serum or plasma albumin leslye urement (mass/volume)on 09-29-2021 Albumin [Mass/Vol] 2.9 g/dL 3.2-5.0 [facility] Work Phone: Serum or plasma albumin/glob ulin mass ratioon 09-29-2021 Albumin/Globulin [Mass ratio] 0.6 {ratio} 0.9-2.4 [facility] Work Phone: Serum or plasma calcium leslye urement (mass/volume)on 09-29-2021 Calcium [Mass/Vol] 8.9 mg/dL 8.5-10.1 [facility] Work Phone: Serum or plasma creatinine m easurement (mass/volume)on 09-29-2021 Creatinine [Mass/Vol] 1.46 mg/dL 0.70-1.30 [facility] Work Phone: Comment on above: The validity of the calculated GFR & GFRAA in patients over 70 years has not been determined. Clinical correlation is essential. Serum or plasma urea nitroge n measurement (mass/volume)on 09-29-2021 Urea nitrogen [Mass/Vol] 32 mg/dL 7-18 [facility] Work Phone: Thin prep Papanicolaou smear with manual screeningon 09-29-2021 Thin prep Papanicolaou smear with manual screening 63 U/L 15-37 [facility] Work Phone: Thin prep Papanicolaou smear with manual screening 8 5-15 [facility] Work Phone: Thin prep Papanicolaou smear with manual screening 218 U/L 87-241 [facility] Work Phone: Absolute lymphocyte counton 09-27-2021 Lymphocytes Auto (Unsp spec) [#/Vol] 1.09 10*3/uL 0.83-4.51 [facility] Work Phone: Basophil percentageon 2021 Ammonia (P) [Moles/Vol] 168.0 umol/L 11-32 [facility] Work Phone: Basophils/100 WBC (Bld) 0.7 % 0-1 [facility] Work Phone: Bilirubin [Mass/Vol] 6.50 mg/dL 0.20-1.00 [facility] Work Phone: Comment on above: For patients on eltr ombopag therapy, use of Dimension [place] TBIL is not recommended. Chloride [Moles/Vol] 98 mmol/L 98-107 [facility] Work Phone: Eosinophils/100 WBC (Bld) 3.2 % 0-5 [facility] Work Phone: Glucose [Mass/Vol] 144 mg/dL 74-106 [facility] Work Phone: Comment on above: Fasting Glucose resu lt greater than or equal to 126 mg/dL suggests DIABETES MELLITUS per A.D.A. criteria. Neutrophils (Bld) [#/Vol] 4.9 10*3/uL 2.0-7.7 [facility] Work Phone: Neutrophils/100 WBC (Bld) 68.7 % 47-70 [facility] Work Phone: Potassium [Moles/Vol] 4.4 mmol/L 3.5-5.1 [facility] Work Phone: Protein [Mass/Vol] 8.5 g/dL 6.4-8.2 [facility] Work Phone: Sodium [Moles/Vol] 130 mmol/L 136-145 [facility] Work Phone: WBC (Bld) [#/Vol] 7.2 10*3/uL 4.4-11.0 [facility] Work Phone: Blood erythrocytes count (nu mber/volume)on 09-27-2021 RBC (Bld) [#/Vol] 3.14 10*6/uL 4.6-6.2 [facility] Work Phone: Blood hemoglobin measurement (mass/volume)on 09-27-2021 Hemoglobin (Bld) [Mass/Vol] 12.6 g/dL 13.0-16.5 [facility] Work Phone: Blood lymphocytes/100 leukoc yteson 09-27-2021 Lymphocytes/100 WBC (Bld) 15.2 % 19-41 [facility] Work Phone: Blood monocytes/100 leukocyt eson 09-27-2021 Monocytes/100 WBC (Bld) 11.8 % 0-10 [facility] Work Phone: Blood platelet mean volumeon 09-27-2021 Platelet mean volume (Bld) [Entitic vol] 9.6 fL 6.2-12.0 [facility] Work Phone: Determination of erythrocyte mean corpuscular volume (MCV)on 09-27-2021 MCV (RBC) [Entitic vol] 107.0 fL 80-94 [facility] Work Phone: Direct bilirubinon 2 Bilirubin.direct [Mass/Vol] 2.20 mg/dL 0.00-0.30 [facility] Work Phone: HIV 1 and HIV-2 antibody ass ay with HIV-1 p24 antigen detectionon 09-27-2021 HIV 1+2 Ab+HIV1 p24 Ag IA Ql Non-Reactive Nonreactive [facility] Work Phone: Hematocrit Auto (Bld) [Volum e fraction]on 09-27-2021 Hematocrit (Bld) [Volume fraction] 33.6 % 40-54 [facility] Work Phone: INR in Blood by Coagulation assayon 09-27-2021 INR Coag (Bld) [Relative time] 1.8 {INR} [facility] Work Phone: Laboratory - Chemistry and C hemistry - challengeon 09-27-2021 ALP [Catalytic activity/Vol] 186 U/L 45-117 [facility] Work Phone: ALT [Catalytic activity/Vol] 43 U/L 16-61 [facility] Work Phone: CO2 [Moles/Vol] 25.0 mmol/L 21.0-32.0 [facility] Work Phone: Globulin (S) [Mass/Vol] 5.5 g/dL 2.2-4.2 [facility] Work Phone: Urea nitrogen/Creatinine [Mass ratio] 22.8 mg/mg 10-20 [facility] Work Phone: Laboratory - Coagulationon 0 09-27-2021 PT Coag (PPP) [Time] 19.9 s 11.7-14.9 [facility] Work Phone: Laboratory - Hematology and Cell countson 09-27-2021 Erythrocyte distribution width (RBC) [Entitic vol] 53.1 fL 35.1-43.9 [facility] Work Phone: Erythrocyte distribution width (RBC) [Ratio] 13.5 % 11.6-14.6 [facility] Work Phone: Immature granulocytes/100 WBC (Bld) 0.400 % 0.0-0.9 [facility] Work Phone: Comment on above: IG% - Immature Granu locytes (promyelocytes, myelocytes and metamyelocytes) > 1% indicates that a LEFT SHIFT is Present. MCH (RBC) [Entitic mass] 40.1 pg 27.0-32.0 [facility] Work Phone: Nucleated RBC/100 WBC (Bld) [Ratio] 0 % 0-5 [facility] Work Phone: MCHC Auto (RBC) [Mass/Vol]on 09-27-2021 MCHC (RBC) [Mass/Vol] 37.5 g/dL 32-36 [facility] Work Phone: No Panel Informationon 09-27 Estimated GFR (MDRD) Amer 81 mL/min >60 [facility] Work Phone: Comment on above: GFR Calc Estimated GFR (MDRD) Non-Af Amer 67 mL/min >60 [facility] Work Phone: Comment on above: Non- GFR Calc Haptoglobin < 10 mg/dL [facility] Work Phone: Comment on above: Performed at: - [address] [id number] Director: Ciro Putnam PhD, Phone: [phone] Platelets bldon 09-27-2021 Platelets (Bld) [#/Vol] 142 10*3/uL 150-450 [facility] Work Phone: Serum or plasma albumin leslye urement (mass/volume)on 09-27-2021 Albumin [Mass/Vol] 3.0 g/dL 3.2-5.0 [facility] Work Phone: Serum or plasma albumin/glob ulin mass ratioon 09-27-2021 Albumin/Globulin [Mass ratio] 0.5 {ratio} 0.9-2.4 [facility] Work Phone: Serum or plasma calcium leslye urement (mass/volume)on 09-27-2021 Calcium [Mass/Vol] 9.0 mg/dL 8.5-10.1 [facility] Work Phone: Serum or plasma creatinine m easurement (mass/volume)on 09-27-2021 Creatinine [Mass/Vol] 1.23 mg/dL 0.70-1.30 [facility] Work Phone: Comment on above: The validity of the calculated GFR & GFRAA in patients over 70 years has not been determined. Clinical correlation is essential. Serum or plasma urea nitroge n measurement (mass/volume)on 09-27-2021 Urea nitrogen [Mass/Vol] 28 mg/dL 7-18 [facility] Work Phone: Thin prep Papanicolaou smear with manual screeningon 09-27-2021 Thin prep Papanicolaou smear with manual screening 61 U/L 15-37 [facility] Work Phone: Thin prep Papanicolaou smear with manual screening 7 5-15 [facility] Work Phone: Thin prep Papanicolaou smear with manual screening 233 U/L 87-241 [facility] Work Phone: Absolute lymphocyte counton 09-26-2021 Lymphocytes Auto (Unsp spec) [#/Vol] 0.80 10*3/uL 0.83-4.51 [facility] Work Phone: Acetaminophen level (mass/vo lume)on 09-26-2021 Acetaminophen (Unsp spec) [Mass/Vol] < 2.0 ug/mL 10.0-30.0 [facility] Work Phone: Basophil percentageon 2021 Basophil percentage 0 SEEN /hpf [facility] Work Phone: [phone] Ammonia (P) [Moles/Vol] 82.0 umol/L 11-32 [facility] Work Phone: [phone] Basophils/100 WBC (Bld) 0.6 % 0-1 [facility] Work Phone: [phone] Bilirubin [Mass/Vol] 7.60 mg/dL 0.20-1.00 [facility] Work Phone: Comment on above: For patients on eltr ombopag therapy, use of Dim[employer] [place] TBIL is not recommended. Chloride [Moles/Vol] 100 mmol/L 98-107 [facility] Work Phone: [phone] Eosinophils/100 WBC (Bld) 0.7 % 0-5 [facility] Work Phone: [phone] Glucose [Mass/Vol] 184 mg/dL 74-106 [facility] Work Phone: Comment on above: Fasting Glucose resu lt greater than or equal to 126 mg/dL suggests DIABETES MELLITUS per A.D.A. criteria. Neutrophils (Bld) [#/Vol] 5.6 10*3/uL 2.0-7.7 [facility] Work Phone: [phone] Neutrophils/100 WBC (Bld) 79.1 % 47-70 [facility] Work Phone: [phone] Potassium [Moles/Vol] 4.3 mmol/L 3.5-5.1 [facility] Work Phone: [phone] Protein [Mass/Vol] 8.5 g/dL 6.4-8.2 [facility] Work Phone: [phone] Sodium [Moles/Vol] 132 mmol/L 136-145 [facility] Work Phone: [phone] WBC (Bld) [#/Vol] 7.0 10*3/uL 4.4-11.0 [facility] Work Phone: [phone] Bilirubin Test strip Ql (U)o n 09-26-2021 Bilirubin Ql (U) 1 mg/dL Negative [facility] Work Phone: Comment on above: COLOR OF URINE MAY A FFECT DIPSTICK RESULTS. Blood erythrocytes count (nu mber/volume)on 09-26-2021 RBC (Bld) [#/Vol] 3.29 10*6/uL 4.6-6.2 [facility] Work Phone: Blood hemoglobin measurement (mass/volume)on 09-26-2021 Hemoglobin (Bld) [Mass/Vol] 12.9 g/dL 13.0-16.5 [facility] Work Phone: Blood lymphocytes/100 leukoc yteson 09-26-2021 Lymphocytes/100 WBC (Bld) 11.4 % 19-41 [facility] Work Phone: Blood monocytes/100 leukocyt eson 09-26-2021 Monocytes/100 WBC (Bld) 7.8 % 0-10 [facility] Work Phone: Blood platelet mean volumeon 09-26-2021 Platelet mean volume (Bld) [Entitic vol] 9.2 fL 6.2-12.0 [facility] Work Phone: Determination of erythrocyte mean corpuscular volume (MCV)on 09-26-2021 MCV (RBC) [Entitic vol] 106.3 fL 80-94 [facility] Work Phone: Direct bilirubinon 2 Bilirubin.direct [Mass/Vol] 2.19 mg/dL 0.00-0.30 [facility] Work Phone: Hematocrit Auto (Bld) [Volum e fraction]on 09-26-2021 Hematocrit (Bld) [Volume fraction] 35.4 % 40-54 [facility] Work Phone: INR in Blood by Coagulation assayon 09-26-2021 INR Coag (Bld) [Relative time] 1.6 {INR} [facility] Work Phone: Ketones Test strip Ql (U)on 09-26-2021 Ketones Ql (U) 5 mg/dl Negative [facility] Work Phone: Laboratory - Chemistry and C hemistry - challengeon 09-26-2021 ALP [Catalytic activity/Vol] 181 U/L 45-117 [facility] Work Phone: ALT [Catalytic activity/Vol] 41 U/L 16-61 [facility] Work Phone: CO2 [Moles/Vol] 24.0 mmol/L 21.0-32.0 [facility] Work Phone: Globulin (S) [Mass/Vol] 5.5 g/dL 2.2-4.2 [facility] Work Phone: Lipase [Catalytic activity/Vol] 194 U/L 73-393 [facility] Work Phone: Urea nitrogen/Creatinine [Mass ratio] 17.2 mg/mg 10-20 [facility] Work Phone: Laboratory - Coagulationon 0 09-26-2021 PT Coag (PPP) [Time] 18.6 s 11.7-14.9 [facility] Work Phone: Laboratory - Drug toxicology on 09-26-2021 Amphetamines Ql (U) Negative [facility] Work Phone: Benzodiazepines Ql (U) Negative [facility] Work Phone: Cannabinoids Screen Ql (U) Negative [facility] Work Phone: Cocaine Ql (U) Negative [facility] Work Phone: Opiates Ql (U) Negative [facility] Work Phone: Laboratory - Hematology and Cell countson 09-26-2021 Erythrocyte distribution width (RBC) [Entitic vol] 52.6 fL 35.1-43.9 [facility] Work Phone: Erythrocyte distribution width (RBC) [Ratio] 13.2 % 11.6-14.6 [facility] Work Phone: Immature granulocytes/100 WBC (Bld) 0.400 % 0.0-0.9 [facility] Work Phone: Comment on above: IG% - Immature Granu locytes (promyelocytes, myelocytes and metamyelocytes) > 1% indicates that a LEFT SHIFT is Present. MCH (RBC) [Entitic mass] 38.7 pg 27.0-32.0 [facility] Work Phone: Nucleated RBC/100 WBC (Bld) [Ratio] 0 % 0-5 [facility] Work Phone: MCHC Auto (RBC) [Mass/Vol]on 09-26-2021 MCHC (RBC) [Mass/Vol] 36.4 g/dL 32-36 [facility] Work Phone: Mucus LM Ql (Urine sed)on Mucus Ql (Urine sed) 0 SEEN /hpf [facility] Work Phone: Nitrite Test strip Ql (U)on 09-26-2021 Nitrite Ql (U) Negative Negative [facility] Work Phone: No Panel Informationon 09-26 MDMA (Ecstasy) Screen Negative [facility] Work Phone: Urine Barbiturates Screen Negative [facility] Work Phone: Urine Drug Screen Comment [facility] Work Phone: Comment on above: CONFIRMATORY TESTING [...] USE TESTMNEMONIC: [facility] Urine Methadone Screen Negative [facility] Work Phone: Ethyl Alcohol Level < 3.0 mg/dL [facility] Work Phone: Comment on above: The serum:whole bloo d ethanol ratio is approximately 1.14and varies slightly with hematocrit. Medical Alcohol reference interval and critical value innon-tolerant individuals; 50 - 100 Impairment 100 Intoxication 100 - 250 Severe Poisoning 250 - 400 Deep/possible fatal coma Estimated Creatinine Clearance Calc 78.72 ml/min [facility] Work Phone: Estimated GFR (MDRD) Amer 87 mL/min >60 [facility] Work Phone: Comment on above: GFR Calc Estimated GFR (MDRD) Non-Af Amer 72 mL/min >60 [facility] Work Phone: Comment on above: Non- GFR Calc Platelets bldon 09-26-2021 Platelets (Bld) [#/Vol] 127 10*3/uL 150-450 [facility] Work Phone: Protein Test strip Ql (U)on 09-26-2021 Protein Ql (U) Negative Negative [facility] Work Phone: Serum or plasma albumin leslye urement (mass/volume)on 09-26-2021 Albumin [Mass/Vol] 3.0 g/dL 3.2-5.0 [facility] Work Phone: Serum or plasma calcium leslye urement (mass/volume)on 09-26-2021 Calcium [Mass/Vol] 9.5 mg/dL 8.5-10.1 [facility] Work Phone: Serum or plasma creatinine m easurement (mass/volume)on 09-26-2021 Creatinine [Mass/Vol] 1.16 mg/dL 0.70-1.30 [facility] Work Phone: Comment on above: The validity of the calculated GFR & GFRAA in patients over 70 years has not been determined. Clinical correlation is essential. Serum or plasma urea nitroge n measurement (mass/volume)on 09-26-2021 Urea nitrogen [Mass/Vol] 20 mg/dL 7-18 [facility] Work Phone: Squamous epithelial cells de tection in urine sediment by light microscopyon 09-26-2021 Epithelial cells.squamous LM Ql (Urine sed) 0 SEEN /hpf [facility] Work Phone: Thin prep Papanicolaou smear with manual screeningon 09-26-2021 Thin prep Papanicolaou smear with manual screening 66 ug/dL [facility] Work Phone: Comment on above: Detection Limit = 5P erformed at: [facility] - [facility] [id number] [place], [place] [id number] Director: Ermelinda Birmingham MD, Phone: [phone] Thin prep Papanicolaou smear with manual screening 63 U/L 15-37 [facility] Work Phone: Thin prep Papanicolaou smear with manual screening 8 5-15 [facility] Work Phone: Urine blood detectionon 09-14 RBC Ql (U) 10 /ul Negative [facility] Work Phone: RBC Ql (U) 0 SEEN /hpf [facility] Work Phone: Urine clarityon 09-26-2021 Clarity (U) Clear Clear [facility] Work Phone: Urine color determinationon 09-26-2021 Color (U) Yellow Yellow [facility] Work Phone: Urine glucose detectionon Glucose Ql (U) Normal mg/dl Normal [facility] Work Phone: Urine leukocyte esterase det ection by dipstickon 09-26-2021 Leukocyte esterase Test strip Ql (U) 25 /ul Negative [facility] Work Phone: Urine pHon 09-26-2021 pH (U) 6.5 [pH] [facility] Work Phone: Urine phencyclidine (PCP) de tectionon 09-26-2021 Phencyclidine Ql (U) Negative [facility] Work Phone: Urine sediment bacteria coun t by microscopy (number/high power field)on 09-26-2021 Bacteria LM.HPF (Urine sed) [#/Area] 0 /[HPF] None Seen [facility] Work Phone: Urine specific gravity measu rementon 09-26-2021 Specific gravity (U) [Rel density] 1.015 [facility] Work Phone: Urobilinogen Auto test strip Ql (U)on 09-26-2021 Urobilinogen Ql (U) 8 mg/dl Normal [facility] Work Phone: Absolute lymphocyte counton 09-14-2021 Lymphocytes Auto (Unsp spec) [#/Vol] 1.20 10*3/uL 0.83-4.51 [facility] Work Phone: Atypical perinuclear antineu trophil cytoplasmic antibodies measurementon 09-14-2021 Neutrophil cytoplasmic Ab.perinuclear.atypic al IF (S) [Titer] <1:20 titer Neg:<1:20 [facility] Work Phone: Comment on above: The atypical pANCA p attern has been observed in asignificant percentage of patients with ulcerative colitis,primary sclerosing cholangitis and autoimmune hepatitis. Basophil percentageon 2021 Ammonia (P) [Moles/Vol] 117.0 umol/L 11-32 [facility] Work Phone: Basophil percentage < 0.2 AI [facility] Work Phone: Basophils/100 WBC (Bld) 0.8 % 0-1 [facility] Work Phone: [phone] Bilirubin [Mass/Vol] 4.80 mg/dL 0.20-1.00 [facility] Work Phone: Comment on above: For patients on eltr ombopag therapy, use of Dimension [place] TBIL is not recommended. Chloride [Moles/Vol] 97 mmol/L 98-107 [facility] Work Phone: Eosinophils/100 WBC (Bld) 4.7 % 0-5 [facility] Work Phone: Glucose [Mass/Vol] 204 mg/dL 74-106 [facility] Work Phone: Comment on above: Glucose result great er than or equal to 200 mg/dLsuggests DIABETES MELLITUS per A.D.A. criteria. Neutrophils (Bld) [#/Vol] 5.2 10*3/uL 2.0-7.7 [facility] Work Phone: Neutrophils/100 WBC (Bld) 69.3 % 47-70 [facility] Work Phone: Potassium [Moles/Vol] 4.0 mmol/L 3.5-5.1 [facility] Work Phone: Protein [Mass/Vol] 7.8 g/dL 6.4-8.2 [facility] Work Phone: Sodium [Moles/Vol] 132 mmol/L 136-145 [facility] Work Phone: WBC (Bld) [#/Vol] 7.5 10*3/uL 4.4-11.0 [facility] Work Phone: Blood erythrocytes count (nu mber/volume)on 09-14-2021 RBC (Bld) [#/Vol] 3.16 10*6/uL 4.6-6.2 [facility] Work Phone: Blood hemoglobin measurement (mass/volume)on 09-14-2021 Hemoglobin (Bld) [Mass/Vol] 13.0 g/dL 13.0-16.5 [facility] Work Phone: Blood lymphocytes/100 leukoc yteson 09-14-2021 Lymphocytes/100 WBC (Bld) 16.0 % 19-41 [facility] Work Phone: [phone] Blood monocytes/100 leukocyt eson 09-14-2021 Monocytes/100 WBC (Bld) 8.9 % 0-10 [facility] Work Phone: Blood platelet mean volumeon 09-14-2021 Platelet mean volume (Bld) [Entitic vol] 9.3 fL 6.2-12.0 [facility] Work Phone: Determination of erythrocyte mean corpuscular volume (MCV)on 09-14-2021 MCV (RBC) [Entitic vol] 102.8 fL 80-94 [facility] Work Phone: Direct bilirubinon 2 Bilirubin.direct [Mass/Vol] 1.89 mg/dL 0.00-0.30 [facility] Work Phone: Erythrocyte sedimentation ra syed 09-14-2021 ESR (Bld) [Velocity] 37 mm/h 0-20 [facility] Work Phone: Hematocrit Auto (Bld) [Volum e fraction]on 09-14-2021 Hematocrit (Bld) [Volume fraction] 32.5 % 40-54 [facility] Work Phone: INR in Blood by Coagulation assayon 09-14-2021 INR Coag (Bld) [Relative time] 1.8 {INR} [facility] Work Phone: Iron measurement (mass/mass) on 09-14-2021 Iron (Unsp spec) [Mass/Mass] 212 ug/dL 65-175 [facility] Work Phone: Laboratory - Chemistry and C hemistry - challengeon 09-14-2021 ALP [Catalytic activity/Vol] 318 U/L 45-117 [facility] Work Phone: ALT [Catalytic activity/Vol] 36 U/L 16-61 [facility] Work Phone: CO2 [Moles/Vol] 28.0 mmol/L 21.0-32.0 [facility] Work Phone: Globulin (S) [Mass/Vol] 5.1 g/dL 2.2-4.2 [facility] Work Phone: Urea nitrogen/Creatinine [Mass ratio] 14.0 mg/mg 10-20 [facility] Work Phone: Laboratory - Coagulationon 0 09-14-2021 aPTT Coag (Bld) [Time] 45.6 s 24.1-36.2 [facility] Work Phone: PT Coag (PPP) [Time] 19.9 s 11.7-14.9 [facility] Work Phone: Laboratory - Hematology and Cell countson 09-14-2021 Erythrocyte distribution width (RBC) [Entitic vol] 47.4 fL 35.1-43.9 [facility] Work Phone: Erythrocyte distribution width (RBC) [Ratio] 12.6 % 11.6-14.6 [facility] Work Phone: Immature granulocytes/100 WBC (Bld) 0.300 % 0.0-0.9 [facility] Work Phone: Comment on above: IG% - Immature Granu locytes (promyelocytes, myelocytes and metamyelocytes) > 1% indicates that a LEFT SHIFT is Present. MCH (RBC) [Entitic mass] 41.1 pg 27.0-32.0 [facility] Work Phone: Nucleated RBC/100 WBC (Bld) [Ratio] 0 % 0-5 [facility] Work Phone: MCHC Auto (RBC) [Mass/Vol]on 09-14-2021 MCHC (RBC) [Mass/Vol] 40.0 g/dL 32-36 [facility] Work Phone: No Panel Informationon 09-14 Centromere B Antibody <0.2 AI [facility] Work Phone: Ceruloplasmin 13.6 mg/dL [facility] Work Phone: Comment on above: Performed at: [facility] [address] [id number] Director: Ciro Putnam PhD, Phone: [phone] Estimated GFR (MDRD) Amer 112 mL/min >60 [facility] Work Phone: Comment on above: GFR Calc Estimated GFR (MDRD) Non-Af Amer 93 mL/min >60 [facility] Work Phone: Comment on above: Non- GFR Calc Hepatitis C Antibody Non-Reactive Nonreactive [facility] Work Phone: Comment on above: Non Reactive: < 0.8 Equivocal: >/= 0.8 to < 1.0 Reactive: >/= 1.0The CDC recommends that a reactive/equivocal HCV antibody result be followed up by the HCV Nucleic Acid Amplificationtest (679866) [employer] CLERK Antibody 1.6 [facility] Work Phone: Total Iron Binding Capacity 235 ug/dL 250-450 [facility] Work Phone: Platelets bldon 09-14-2021 Platelets (Bld) [#/Vol] 147 10*3/uL 150-450 [facility] Work Phone: Serum DNA double strand anti body assay (units/volume)on 09-14-2021 DNA double strand Ab Qn (S) [IU]/mL [facility] Work Phone: Comment on above: Negative <5 Equivoca l 5 - 9 Positive >9 Serum Nadira-1 antibody assay (u nits/volume)on 09-14-2021 Nadira-1 extractable nuclear Ab Qn (S) <0.2 [facility] Work Phone: Serum Scl-70 extractable nuc lear antibody assay (units/volume)on 09-14-2021 SCL-70 extractable nuclear Ab Qn (S) <0.2 [facility] Work Phone: Serum Doyle extractable nucl ear antibody detectionon 09-14-2021 Doyle extractable nuclear Ab Ql (S) <0.2 [facility] Work Phone: Serum classic neutrophil cyt oplasmic antibody assay (units/volume)on 09-14-2021 Neutrophil cytoplasmic Ab.classic Qn (S) 1:80 titer Neg:<1:20 [facility] Work Phone: Serum mitochondria antibody detectionon 09-14-2021 Mitochondria Ab Ql (S) <20.0 Units [facility] Work Phone: Comment on above: Negative 0.0 - 20.0 Equivocal 20.1 - 24.9 Positive >24.9Mitochondrial (M2) Antibodies are found in 90-96% ofpatients with primary biliary cirrhosis.Performed at: [employer] [id number] Director: Ciro Putnam PhD, Phone: [phone] Serum or plasma C reactive p rotein measurement (mass/volume)on 09-14-2021 CRP [Mass/Vol] 4.16 mg/L 0.0-3.0 [facility] Work Phone: Comment on above: C-Reactive Protein ( CRP) provides useful information for thediagnosis, therapy and monitoring of inflammatory processesand associated diseases. For the evaluation of Relative Riskfor Cardiovascular Disease, a High Sensitivity CRP (HSCRP)should be ordered. Serum or plasma actin IgG an tibody assay (units/volume)on 09-14-2021 Actin IgG Qn 16 Units [facility] Work Phone: Comment on above: Negative 0 - 19 Weak positive 20 - 30 Moderate to strong positive >30 Actin Antibodies are found in 52-85% of patients with autoimmune hepatitis or chronic active hepatitis and in 22% of patients with primary biliary cirrhosis. Serum or plasma albumin leslye urement (mass/volume)on 09-14-2021 Albumin [Mass/Vol] 2.7 g/dL 3.2-5.0 [facility] Work Phone: Serum or plasma albumin/glob ulin mass ratioon 09-14-2021 Albumin/Globulin [Mass ratio] 0.5 {ratio} 0.9-2.4 [facility] Work Phone: Serum or plasma angiotensin converting enzyme measurement (enzymatic activity/volume)on 09-14-2021 Angiotensin converting enzyme [Catalytic activity/Vol] 186 U/L [facility] Work Phone: Serum or plasma calcium leslye urement (mass/volume)on 09-14-2021 Calcium [Mass/Vol] 8.6 mg/dL 8.5-10.1 [facility] Work Phone: Serum or plasma creatinine m easurement (mass/volume)on 09-14-2021 Creatinine [Mass/Vol] 0.93 mg/dL 0.70-1.30 [facility] Work Phone: Comment on above: The validity of the calculated GFR & GFRAA in patients over 70 years has not been determined. Clinical correlation is essential. Serum or plasma ferritin michael surement (mass/volume)on 09-14-2021 Ferritin [Mass/Vol] 382 ng/mL 26-388 [facility]: Serum or plasma iron saturat ion measurement (mass fraction)on 09-14-2021 Iron saturation [Mass fraction] 90.2 % 15.0-55.0 [facility] Work Phone: Serum or plasma urea nitroge n measurement (mass/volume)on 09-14-2021 Urea nitrogen [Mass/Vol] 13 mg/dL 7-18 [facility] Work Phone: Serum perinuclear neutrophil cytoplasmic antibody titer by immunofluorescenceon 09-14-2021 Neutrophil cytoplasmic Ab.perinuclear IF (S) [Titer] <1:20 titer Neg:<1:20 [facility] Work Phone: Comment on above: The presence of posi tive fluorescence exhibiting P-ANCA orC- ANCA patterns alone is not specific for the diagnosis ofWegener's Granulomatosis (WG) or microscopic polyangiitis.Decisions about treatment should not be based solely onANCA IFA results. The International ANCA Group Consensusrecommends follow up testing of positive sera with both OR-3 and MPO-ANCA enzyme immunoassays. As many as 5% serumsamples are positive only by EIA. Ref. AM J Clin [id number];111:507-513. Thin prep Papanicolaou smear with manual screeningon 09-14-2021 Thin prep Papanicolaou smear with manual screening 49 U/L 15-37 [facility] Work Phone: Thin prep Papanicolaou smear with manual screening 7 5-15 [facility] Work Phone: Thin prep Papanicolaou smear with manual screening 222 U/L 87-241 [facility] Work Phone: Whole blood hemoglobin A1c/t otal hemoglobin ratio (mass fraction)on 09-14-2021 HbA1c (Bld) [Mass fraction] 7.3 % 3.8-5.6 [facility] Work Phone: Comment on above: Normal < 5.7 % Predi abetic 5.7 - 6.4 % Diabetic >or= 6.5 % Please note range changes. Influenza virus A and B and SARS-CoV-2 (COVID-19) Ag panel - Upper respiratory specim SARS-CoV-2 (COVID-19) RNA FOX+probe Ql (Resp) [facility] Work Phone: Laboratory - Microbiology an d Antimicrobial susceptibility Bacteria identified Cx Nom (Bld) No growth in 5 days. [facility] Work Phone: Respiratory pathogens DNA an d RNA 12b panel FOX+probe (Unsp spec) Respiratory Panel (PCR) Influenza A (Subtype H1) [facility] Work Phone: Vital Signs Date Time Vital Sign Value Performing Clinician Facility 11-27-2024 19:30-0400 Diastolic Blood Pressure Non-Invasive 62 mm[Hg] DR ISIDRO BURT MD [facility] 11-27-2024 19:30-0400 Heart rate 75 /min DR ISIDRO BURT MD [facility] 11-27-2024 19:30-0400 Respiratory rate 16 /min DR ISIDRO BURT MD [facility] 11-27-2024 19:30-0400 Systolic Blood Pressure Non-Invasive 128 mm[Hg] DR ISIDRO BURT MD [facility] 11-27-2024 18:05-0400 Body temperature 98.6 [degF] DR ISIDRO BURT MD [facility] 11-27-2024 18:05-0400 Body weight [address] ISIDRO BURT MD [facility] 11-27-2024 18:05-0400 Diastolic Blood Pressure Non-Invasive 70 mm[Hg] DR ISIDRO BURT MD [facility] 11-27-2024 18:05-0400 Heart rate 74 /min DR ISIDRO BURT MD [facility] 11-27-2024 18:05-0400 Respiratory rate 16 /min DR ISIDRO BUTR MD [facility] 11-27-2024 18:05-0400 Systolic Blood Pressure Non-Invasive 127 mm[Hg] DR ISIDRO BURT MD [facility] 07-14-2024 04:23-0500 Diastolic Blood Pressure Non-Invasive 71 mm[Hg] DR WAQAS GARSIA MD [facility] 07-14-2024 04:23-0500 Heart rate 89 /min DR WAQAS GARSIA MD [facility] 07-14-2024 04:23-0500 Respiratory rate 18 /min DR WAQAS GARSIA MD [facility] 07-14-2024 04:23-0500 Systolic Blood Pressure Non-Invasive 122 mm[Hg] DR WAQAS GARSIA MD [facility] 07-14-2024 01:45-0500 Body temperature 98.6 [degF] DR WAQAS GARSIA MD [facility] 07-14-2024 01:45-0500 Diastolic Blood Pressure Non-Invasive 69 mm[Hg] DR WAQAS GARSIA MD [facility] 07-14-2024 01:45-0500 Heart rate 93 /min DR WAQAS GARSIA MD [facility] 07-14-2024 01:45-0500 Respiratory rate 18 /min DR WAQAS GARSIA MD [facility] 07-14-2024 01:45-0500 Systolic Blood Pressure Non-Invasive 128 mm[Hg] DR WAQAS GARSIA MD [facility] 07-13-2024 01:15-0500 Blood Pressure Location WAQAS HOLGUIN MD [facility] 07-13-2024 01:15-0500 Blood Pressure Method WAQAS HOLGUIN MD [facility] 07-13-2024 01:15-0500 Body height 175.3 cm WAQAS HOLGUIN MD [facility] 07-13-2024 01:15-0500 Body temperature 98.06 [degF] WAQAS HOLGUIN MD [facility] 07-13-2024 01:15-0500 Body weight 93.2 kg WAQAS HOLGUIN MD [facility] 07-13-2024 01:15-0500 Diastolic Blood Pressure Non-Invasive 66 mm[Hg] WAQAS HOLGUIN MD [facility] 07-13-2024 01:15-0500 Heart rate 76 /min WAQAS HOLGUIN MD [facility] 07-13-2024 01:15-0500 Respiratory rate 18 /min WAQAS HOLGUIN MD [facility] 07-13-2024 01:15-0500 Systolic Blood Pressure Non-Invasive 120 mm[Hg] WAQAS HOLGUIN MD [facility] 01-30-2024 14:35-0400 Body height 175.3 cm Barrington Traore MD Work Phone: [facility] 01-30-2024 14:35-0400 Body mass index (BMI) [Ratio] 26.76 kg/m2 Barrington Traore MD Work Phone: [facility] 01-30-2024 14:35-0400 Body temperature 98.1 [degF] Barrington Traore MD Work Phone: [facility] 01-30-2024 14:35-0400 Body weight 82.2 kg Barrington Traore MD Work Phone: [facility] 01-30-2024 14:35-0400 Diastolic blood pressure 87 mm[Hg] Barrington Traore MD Work Phone: [facility] Comment on above: Pt denies h/a, nausea, dizziness. No dis tress noted. notified. 01-30-2024 14:35-0400 Heart rate 73 /min Barrington Traore MD Work Phone: [facility] 01-30-2024 14:35-0400 SaO2% (BldA) [Mass fraction] 98 % Barrington Traore MD Work Phone: [facility] 01-30-2024 14:35-0400 Systolic blood pressure 134 mm[Hg] Barrington Traore MD Work Phone: [facility] Comment on above: Pt denies h/a, nausea, dizziness. No dis tress noted. notified. 01-01-2024 11:13-0400 Body mass index (BMI) [Ratio] 25.37 kg/m2 Piter Gaines Jr., MD Work Phone: [facility] 01-01-2024 11:13-0400 Body weight 77.93 kg Piter Gaines Jr., MD Work Phone: [facility] 01-01-2024 11:13-0400 Diastolic blood pressure 68 mm[Hg] Piter Gaines Jr., MD Work Phone: [facility] 01-01-2024 11:13-0400 Heart rate 94 /min Piter Gaines Jr., MD Work Phone: [facility] 01-01-2024 11:13-0400 Respiratory rate 16 /min Piter Gaines Jr., MD Work Phone: [facility] 01-01-2024 11:13-0400 SaO2% (BldA) [Mass fraction] 96 % Piter Gaines Jr., MD Work Phone: [facility] 01-01-2024 11:13-0400 Systolic blood pressure 126 mm[Hg] Piter Gaines Jr., MD Work Phone: [facility] 09-20-2023 11:40-0500 Diastolic blood pressure 57 mm[Hg] Barrington Traore MD Work Phone: [facility] 09-20-2023 11:40-0500 Heart rate 74 /min Barrington Traore MD Work Phone: [facility] 09-20-2023 11:40-0500 Respiratory rate 16 /min Barrington Traore MD Work Phone: [facility] 09-20-2023 11:40-0500 SaO2% (BldA) [Mass fraction] 96 % Barrington Traore MD Work Phone: [facility] 09-20-2023 11:40-0500 Systolic blood pressure 118 mm[Hg] Barrington Traore MD Work Phone: [facility] 09-20-2023 10:34-0500 Body height 175.3 cm Barrington Traore MD Work Phone: [facility] 09-20-2023 10:34-0500 Body temperature 97.3 [degF] Barrington Traore MD Work Phone: [facility] 09-20-2023 10:34-0500 Body weight 77.56 kg Barrington Traore MD Work Phone: [facility] 08-29-2023 12:57-0500 Body height 175.3 cm Barrington Traore MD Work Phone: [facility] 08-29-2023 12:57-0500 Body temperature 98.91 [degF] Barrington Traore MD Work Phone: [facility] 08-29-2023 12:57-0500 Body weight 77.6 kg Barrington Traore MD Work Phone: [facility] 08-29-2023 12:57-0500 Diastolic blood pressure 83 mm[Hg] Barrington Traore MD Work Phone: [facility] 08-29-2023 12:57-0500 Heart rate 84 /min Barrington Traore MD Work Phone: [facility] 08-29-2023 12:57-0500 SaO2% (BldA) [Mass fraction] 98 % Barrington Traore MD Work Phone: [facility] 08-29-2023 12:57-0500 Systolic blood pressure 138 mm[Hg] Barrington Traore MD Work Phone: [facility] 08-08-2023 09:00-0500 Body temperature 98.2 [degF] Cipriano Cedeño DO Work Phone: [facility] 08-08-2023 09:00-0500 Diastolic blood pressure 70 mm[Hg] Cipriano Cedeño DO Work Phone: [facility] 08-08-2023 09:00-0500 Heart rate 83 /min Cipriano Cedeño DO Work Phone: [facility] [employer] 08-08-2023 09:00-0500 Respiratory rate 18 /min Cipriano Cedeño DO Work Phone: [facility] [employer] 08-08-2023 09:00-0500 SaO2% (BldA) [Mass fraction] 100 % Cipriano Cedeño DO Work Phone: [facility] [employer] 08-08-2023 09:00-0500 Systolic blood pressure 124 mm[Hg] Cipriano Cedeño DO Work Phone: [facility] [employer] 08-07-2023 05:45-0500 Body mass index (BMI) [Ratio] 26.2 kg/m2 Cipriano Cedeño DO Work Phone: [facility] [employer] 08-07-2023 05:45-0500 Body weight 80.51 kg Cipriano Cedeño DO Work Phone: [facility] [employer] 08-03-2023 06:30-0500 Body height 175.3 cm Cipriano Cedeño DO Work Phone: [facility] 06-21-2022 18:04-0500 Body temperature 98.7 [degF] Dr. Greg Goddard Work Phone: [facility] Work Phone: 06-21-2022 18:04-0500 Diastolic blood pressure 63 mm[Hg] Dr. Greg Goddard Work Phone: [facility] Work Phone: 06-21-2022 18:04-0500 Heart rate 82 /min Dr. Greg Goddard Work Phone: [facility] Work Phone: 06-21-2022 18:04-0500 Respiratory rate 18 /min Dr. Greg Goddard Work Phone: [facility] Work Phone: 06-21-2022 18:04-0500 SaO2% (BldA) [Mass fraction] 94 % Dr. Greg Goddard Work Phone: [facility] Work Phone: 06-21-2022 18:04-0500 Systolic blood pressure 102 mm[Hg] Dr. Greg Goddard Work Phone: [facility] Work Phone: 06-21-2022 10:33-0500 Body height 175.[address] Greg Goddard Work Phone: [facility] Work Phone: 06-21-2022 10:33-0500 Body weight 69.[address] Greg Goddard Work Phone: [facility] Work Phone: 06-17-2022 22:59-0500 Body mass index (BMI) [Ratio] 22.7 kg/m2 Dr. Greg Goddard Work Phone: [facility] Work Phone: 06-17-2022 01:40-0500 Diastolic blood pressure 74 mm[Hg] Dr. Greg Goddard Work Phone: [facility] Work Phone: 06-17-2022 01:40-0500 Heart rate 88 /min Dr. Greg Goddard Work Phone: [facility] Work Phone: 06-17-2022 01:40-0500 Respiratory rate 18 /min Dr. Greg Goddard Work Phone: [facility] Work Phone: 06-17-2022 01:40-0500 SaO2% (BldA) [Mass fraction] 99 % Dr. Greg Goddard Work Phone: [facility] Work Phone: 06-17-2022 01:40-0500 Systolic blood pressure 134 mm[Hg] Dr. Greg Goddard Work Phone: [facility] Work Phone: 06-16-2022 21:41-0500 Body height 175.[address] Greg Goddard Work Phone: [facility] Work Phone: 06-16-2022 21:41-0500 Body mass index (BMI) [Ratio] 23.9 kg/m2 Dr. Greg Goddard Work Phone: [facility] Work Phone: 06-16-2022 21:41-0500 Body temperature 97.6 [degF] Dr. Greg Goddard Work Phone: [facility] Work Phone: 06-16-2022 21:41-0500 Body weight 73.[address] Greg Goddard Work Phone: [facility] Work Phone: 06-16-2022 03:08-0500 Body height 175.[address] Greg Goddard Work Phone: [facility] Work Phone: 06-16-2022 03:08-0500 Body mass index (BMI) [Ratio] 24 kg/m2 Dr. Greg Goddard Work Phone: [facility] Work Phone: 06-16-2022 03:08-0500 Body temperature 97.7 [degF] Dr. Greg Goddard Work Phone: [facility] Work Phone: 06-16-2022 03:08-0500 Body weight [address] Greg Goddard Work Phone: [facility] Work Phone: 06-16-2022 03:08-0500 Diastolic blood pressure 77 mm[Hg] Dr. Greg Goddard Work Phone: [facility] Work Phone: 06-16-2022 03:08-0500 Heart rate 92 /min Dr. Greg Goddard Work Phone: [facility] Work Phone: 06-16-2022 03:08-0500 Respiratory rate 15 /min Dr. Greg Goddard Work Phone: [facility] Work Phone: 06-16-2022 03:08-0500 SaO2% (BldA) [Mass fraction] 98 % Dr. Greg Goddard Work Phone: [facility] Work Phone: 06-16-2022 03:08-0500 Systolic blood pressure 136 mm[Hg] Dr. Greg Goddard Work Phone: [facility] Work Phone: 05-14-2022 19:04-0400 Diastolic blood pressure 77 mm[Hg] Dr. Greg Goddard Work Phone: [facility] Work Phone: 05-14-2022 19:04-0400 Heart rate 74 /min Dr. Greg Goddard Work Phone: [facility] Work Phone: 05-14-2022 19:04-0400 Respiratory rate 16 /min Dr. Greg Goddard Work Phone: [facility] Work Phone: 05-14-2022 19:04-0400 SaO2% (BldA) [Mass fraction] 98 % Dr. Greg Goddard Work Phone: [facility] Work Phone: 05-14-2022 19:04-0400 Systolic blood pressure 129 mm[Hg] Dr. Greg Goddard Work Phone: [facility] Work Phone: 05-14-2022 11:40-0400 Body height 175.[address] Greg Goddard Work Phone: [facility] Work Phone: 05-14-2022 11:40-0400 Body mass index (BMI) [Ratio] 23.6 kg/m2 Dr. Greg Goddard Work Phone: [facility] Work Phone: 05-14-2022 11:40-0400 Body temperature 97.5 [degF] Dr. Greg Goddard Work Phone: [facility] Work Phone: 05-14-2022 11:40-0400 Body weight 72.[address] Greg Goddard Work Phone: [facility] Work Phone: 03-11-2022 11:02-0400 Body height 175.26 cm No Primary Care Physician [facility] Work Phone: 03-11-2022 11:02-0400 Body mass index (BMI) [Ratio] 23.4 kg/m2 No Primary Care Physician [facility] Work Phone: 03-11-2022 11:02-0400 Body weight 72.12 kg No Primary Care Physician [facility] Work Phone: 03-11-2022 11:02-0400 Diastolic blood pressure 67 mm[Hg] No Primary Care Physician [facility] Work Phone: 03-11-2022 11:02-0400 Heart rate 71 /min No Primary Care Physician [facility] Work Phone: 03-11-2022 11:02-0400 SaO2% (BldA) [Mass fraction] 97 % No Primary Care Physician [facility] Work Phone: 03-11-2022 11:02-0400 Systolic blood pressure 112 mm[Hg] No Primary Care Physician [facility] Work Phone: 03-03-2022 09:43-0400 Body temperature 97.6 [degF] Dr. Nate Friend Work Phone: [facility] Work Phone: 03-03-2022 09:43-0400 Diastolic blood pressure 75 mm[Hg] Dr. Nate Martinez Work Phone: [facility] Work Phone: 03-03-2022 09:43-0400 Heart rate 64 /min Dr. Nate Martinez Work Phone: [facility] Work Phone: 03-03-2022 09:43-0400 Respiratory rate 16 /min Dr. Nate Martinez Work Phone: [facility] Work Phone: 03-03-2022 09:43-0400 SaO2% (BldA) [Mass fraction] 100 % Dr. Nate Martinez Work Phone: [facility] Work Phone: 03-03-2022 09:43-0400 Systolic blood pressure 115 mm[Hg] Dr. Nate Martinez Work Phone: [facility] Work Phone: 03-03-2022 08:06-0400 Body height 175.[address] Nate Martinez Work Phone: [facility] Work Phone: 03-03-2022 08:06-0400 Body mass index (BMI) [Ratio] 23.4 kg/m2 Dr. Nate Martinez Work Phone: [facility] Work Phone: 03-03-2022 08:06-0400 Body weight 72.[address] Nate Martinez Work Phone: [facility] Work Phone: 03-02-2022 11:55-0400 Body temperature 97.9 [degF] Dr. Nate Martinez Work Phone: [facility] Work Phone: 03-02-2022 11:55-0400 Diastolic blood pressure 73 mm[Hg] Dr. Nate Martinez Work Phone: [facility] Work Phone: 03-02-2022 11:55-0400 Heart rate 61 /min Dr. Nate Martinez Work Phone: [facility] Work Phone: 03-02-2022 11:55-0400 Respiratory rate 16 /min Dr. Nate Martinez Work Phone: [facility] Work Phone: 03-02-2022 11:55-0400 SaO2% (BldA) [Mass fraction] 99 % Dr. Nate Martinez Work Phone: [facility] Work Phone: 03-02-2022 11:55-0400 Systolic blood pressure 119 mm[Hg] Dr. Nate Martinez Work Phone: [facility] Work Phone: 03-02-2022 10:52-0400 Body mass index (BMI) [Ratio] 23.8 kg/m2 Dr. Nate Martinez Work Phone: [facility] Work Phone: 03-02-2022 10:52-0400 Body weight [address] Nate Martinez Work Phone: [facility] Work Phone: 12-08-2021 08:29-0400 Body mass index (BMI) [Ratio] 25.1 kg/m2 Dr. Nate Martinez Work Phone: [facility] Work Phone: 12-08-2021 08:29-0400 Body temperature 96.5 [degF] Dr. Nate Martinez Work [facility] System Work Phone: 12-08-2021 08:29-0400 Body weight 77.[address] Nate Martinez Work Phone: [facility] Work Phone: 12-08-2021 08:29-0400 Diastolic blood pressure 70 mm[Hg] Dr. Nate Martinez Work Phone: [facility] Work Phone: 12-08-2021 08:29-0400 Heart rate 98 /min Dr. Nate Martinez Work Phone: [facility] Work Phone: 12-08-2021 08:29-0400 Respiratory rate 16 /min Dr. Nate Martinez Work Phone: [facility] Work Phone: 12-08-2021 08:29-0400 SaO2% (BldA) [Mass fraction] 97 % Dr. Nate Martinez Work Phone: [facility] Work Phone: 12-08-2021 08:29-0400 Systolic blood pressure 114 mm[Hg] Dr. Nate Martinez Work Phone: [facility] Work Phone: 12-08-2021 08:29-0400 Body height 175.26 cm 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-C Debra Deisi 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 Work Phone: [facility] Work Phone: 12-08-2021 08:29-0400 Body mass index (BMI) [Ratio] 25.1 kg/m2 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-C Debra Deisi 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 Work Phone: [facility] Work Phone: 12-08-2021 08:29-0400 Body temperature 96.5 [degF] 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-C Debra Deisi 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 Work Phone: [facility] Work Phone: 12-08-2021 08:29-0400 Body weight 77.16 kg 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-C Debra Deisi 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 Work Phone: [facility] Work Phone: 12-08-2021 08:29-0400 Diastolic blood pressure 70 mm[Hg] 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-C Debra Deisi 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 Work Phone: [facility] Work Phone: 12-08-2021 08:29-0400 Heart rate 98 /min 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-C Debra Deisi 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 Work Phone: [facility] Work Phone: 12-08-2021 08:29-0400 Respiratory rate 16 /min 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-C Debra Deisi 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 Work Phone: [facility] Work Phone: 12-08-2021 08:29-0400 SaO2% (BldA) [Mass fraction] 97 % 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-C Debra Deisi 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 Work Phone: [facility] Work Phone: 12-08-2021 08:29-0400 Systolic blood pressure 114 mm[Hg] 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-C Debra Deisi 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 Work Phone: [facility] Work Phone: 12-02-2021 11:30-0400 Body temperature 98.6 [degF] 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-C Debra Deisi 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 Work Phone: [facility] Work Phone: 12-02-2021 11:30-0400 Diastolic blood pressure 68 mm[Hg] 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-C Debra Deisi 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 Work Phone: [facility] Work Phone: 12-02-2021 11:30-0400 Heart rate 71 /min 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-C Debra Deisi 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 Work Phone: [facility] Work Phone: 12-02-2021 11:30-0400 Respiratory rate 18 /min 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-C Debra Deisi 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 Work Phone: [facility] Work Phone: 12-02-2021 11:30-0400 SaO2% (BldA) [Mass fraction] 99 % 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-C Debra Deisi 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 Work Phone: [facility] Work Phone: 12-02-2021 11:30-0400 Systolic blood pressure 118 mm[Hg] 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-C Debra Deisi 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 Work Phone: [facility] Work Phone: 12-02-2021 10:01-0400 Body height 175.26 cm 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-C Debra Deisi 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 Work Phone: [facility] Work Phone: 12-02-2021 10:01-0400 Body mass index (BMI) [Ratio] 25.1 kg/m2 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-C Debra Deisi 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 Work Phone: [facility] Work Phone: 12-02-2021 10:01-0400 Body weight 77.2 kg 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-C Debra Deisi 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 Work Phone: [facility] Work Phone: 10-14-2021 08:31-0400 Body height 175.26 cm 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-C Debra Deisi 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 Work Phone: [facility] Work Phone: 10-14-2021 08:31-0400 Body mass index (BMI) [Ratio] 24.3 kg/m2 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-C Debra Deisi 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 Work Phone: [facility] Work Phone: 10-14-2021 08:31-0400 Body temperature 98.3 [degF] 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-C Debra Deisi 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 Work Phone: [facility] Work Phone: 10-14-2021 08:31-0400 Body weight 74.84 kg 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-C Debra Deisi 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 Work Phone: [facility] Work Phone: 10-14-2021 08:31-0400 Diastolic blood pressure 68 mm[Hg] 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-C Debra Deisi 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 Work Phone: [facility] Work Phone: 10-14-2021 08:31-0400 Heart rate 76 /min 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-C Debra Deisi 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 Work Phone: [facility] Work Phone: 10-14-2021 08:31-0400 Respiratory rate 14 /min 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-C Debra Deisi 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 Work Phone: [facility] Work Phone: 10-14-2021 08:31-0400 SaO2% (BldA) [Mass fraction] 99 % 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-C Debra Deisi 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 Work Phone: [facility] Work Phone: 10-14-2021 08:31-0400 Systolic blood pressure 110 mm[Hg] 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-C Debra Deisi 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 Work Phone: [facility] Work Phone: 10-11-2021 10:35-0400 Body temperature 98 [degF] 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-C Debra Deisi 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 Work Phone: [facility] Work Phone: 10-11-2021 10:35-0400 Diastolic blood pressure 56 mm[Hg] 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-C Debra Deisi 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 Work Phone: [facility] Work Phone: 10-11-2021 10:35-0400 Heart rate 70 /min 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-C Debra Deisi 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 Work Phone: [facility] Work Phone: 10-11-2021 10:35-0400 Respiratory rate 18 /min 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-C Debra Deisi 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 Work Phone: [facility] Work Phone: 10-11-2021 10:35-0400 SaO2% (BldA) [Mass fraction] 98 % 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-C Debra Deisi 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 Work Phone: [facility] Work Phone: 10-11-2021 10:35-0400 Systolic blood pressure 102 mm[Hg] 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-C Debra Deisi 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 Work Phone: [facility] Work Phone: 10-11-2021 08:33-0400 Body height 175.26 cm 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-C Debra Deisi 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 Work Phone: [facility] Work Phone: 10-11-2021 08:33-0400 Body mass index (BMI) [Ratio] 24.3 kg/m2 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-C Debra Deisi 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 Work Phone: [facility] Work Phone: 10-11-2021 08:33-0400 Body weight 74.84 kg 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-C Debra Deisi 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 Work Phone: [facility] Work Phone: 09-26-2021 16:27-0400 Body temperature 98 [degF] 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-C Debra Deisi 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 Work Phone: [facility] Work Phone: 09-26-2021 16:27-0400 Diastolic blood pressure 88 mm[Hg] 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-C Debra Deisi 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 Work Phone: [facility] Work Phone: 09-26-2021 16:27-0400 Heart rate 84 /min 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-C Debra Deisi 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 Work Phone: [facility] Work Phone: 09-26-2021 16:27-0400 Respiratory rate 16 /min 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-C Debra Deisi 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 Work Phone: [facility] Work Phone: 09-26-2021 16:27-0400 SaO2% (BldA) [Mass fraction] 99 % 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-C Debra Deisi 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 Work Phone: [facility] Work Phone: 09-26-2021 16:27-0400 Systolic blood pressure 139 mm[Hg] 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-C Debra Deisi 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 Work Phone: [facility] Work Phone: 09-26-2021 11:10-0400 Body mass index (BMI) [Ratio] 24.3 kg/m2 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-C Debra Deisi 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 Work Phone: [facility] Work Phone: 09-26-2021 11:10-0400 Body weight 74.84 kg 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-C Debra Deisi 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 Work Phone: [facility] Work Phone: 09-13-2021 09:22-0500 Body mass index (BMI) [Ratio] 24.2 kg/m2 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-C Debra Deisi 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 Work Phone: [facility] Work Phone: 09-13-2021 09:22-0500 Body weight 74.38 kg 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-C Debra Deisi 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 Work Phone: [facility] Work Phone: 09-13-2021 09:22-0500 Diastolic blood pressure 76 mm[Hg] 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-C Debra Deisi 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 Work Phone: [facility] Work Phone: 09-13-2021 09:22-0500 Heart rate 79 /min 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-C Debra Deisi 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 Work Phone: [facility] Work Phone: 09-13-2021 09:22-0500 Systolic blood pressure 131 mm[Hg] 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-C Debra Deisi 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 Work Phone: [facility] Work Phone: Encounters Encounter Date Encounter Type Care Provider Facility Start: 05-02-2025 End: 05-02-2025 Emergency department patient visit Lidia Rizvi Facility:[facility] Start: 03-05-2025 ambulatory Lidia Rizvi Fa cility:[facility] Start: 02-12-2025 End: 02-12-2025 Emergency department patient visit FREDERICK MANUEL MD [facility] Start: 01-24-2025 End: 01-25-2025 Emergency department patient visit MIRELA OSVALDO DO [facility] Start: 01-24-2025 End: 01-24-2025 Emergency department patient visit MIRELA OSVALDO DO [facility] Start: 01-22-2025 End: 01-23-2025 Emergency department patient visit PITER TRAN MD [facility] Start: 01-04-2025 End: 01-04-2025 Emergency department patient visit Lidia Rizvi Facility:[facility] Start: 12-20-2024 End: 12-20-2024 Emergency department patient visit [facility] Facility:[facility] Start: 11-27-2024 End: 11-27-2024 Emergency department patient visit DR ISIDRO BURT MD [facility] Start: 11-20-2024 ambulatory Dewaynemiriam Eric Facility: [facility] Start: 11-09-2024 End: 11-09-2024 Emergency department patient visit Jami Gabriel Facility:[facility] Start: 11-02-2024 End: 11-03-2024 Emergency department patient visit NOT RECORDED PHYSICIAN Facility:[facility] Start: 11-02-2024 End: 11-02-2024 Emergency department patient visit [facility] Facility:[facility] Start: 10-24-2024 End: 10-24-2024 ambulatory [facility] Facility:[facility] Start: 10-24-2024 End: 10-24-2024 ambulatory [facility] Facility:[facility] Start: 07-17-2024 End: 05-16-2025 ambulatory KATIA LAN [facility] Start: 07-14-2024 End: 07-14-2024 Emergency department patient visit DR WAQAS GARSIA MD [facility] Start: 07-13-2024 End: 07-13-2024 Emergency department patient visit WAQAS HOLGUIN MD [facility] Start: 04-09-2024 End: 04-09-2024 ambulatory [facility] Facility:[facility] Start: 04-09-2024 End: 04-09-2024 Subsequent hospital visit by physician [facility] Work Phone: Radiology Comment on above: Other cirrhosis of l iver (HCC) [K74.69] Start: 01-30-2024 End: 01-30-2024 ambulatory [facility] Facility:[facility] Start: 01-30-2024 End: 01-30-2024 ambulatory BARRINGTON TRAORE Facility:[facility] Start: 01-30-2024 End: 01-30-2024 Patient encounter procedure Barrington Traore MD Work Phone: Gastroenterology Comment on above: Other cirrhosis of l iver (HCC) (Primary Dx) Start: 01-01-2024 End: 01-01-2024 ambulatory PITER GAINES JR Facility:[facility] Start: 01-01-2024 End: 01-01-2024 Patient encounter procedure Piter Gaines MD Work Phone: Neurology Comment on above: Seizure (HCC) (Prima ry Dx) Start: 09-20-2023 End: 09-20-2023 ambulatory BARRINGTON TRAORE Facility:[facility] Start: 09-20-2023 End: 09-20-2023 Subsequent hospital visit by physician Barrington Traore MD Work Phone: Gastroenterology Comment on above: Alcoholic cirrhosis of liver without ascites (HCC) [K70.30] Start: 09-19-2023 ambulatory GREG GODDARD [facility] ty:[facility] Start: 09-19-2023 End: 09-19-2023 Subsequent hospital visit by physician [facility] Comment on above: Alcoholic cirrhosis of liver without ascites (HCC) [K70.30] Start: 09-12-2023 Telephone encounter [facility] Comment on above: Education Of Patient /family; Appointment (Unable to confirm appointment for 09/20/2023) Start: 08-29-2023 End: 08-29-2023 ambulatory BARRINGTON TRAORE Facility:[facility] Start: 08-29-2023 End: 08-29-2023 Patient encounter procedure Barrington Traore MD Work Phone: Gastroenterology Comment on above: Alcoholic cirrhosis of liver without ascites (HCC) (Primary Dx) Start: 07-27-2023 Evaluation and management of inpatient Physician [facility] Start: 07-27-2023 Emergency department patient visit CIPRIANO FUNEZLESTON [facility] Start: 07-27-2023 Emergency department patient visit Physician [facility] Start: 07-27-2023 End: 08-08-2023 Evaluation and management of inpatient Physician [facility] Start: 07-27-2023 End: 08-08-2023 Evaluation and management of inpatient Cipriano Cedeño DO Work Phone: [facility] Comment on above: Fall, initial encoun ter (Primary Dx); Closed fracture of second lumbar vertebra, unspecified fracture morphology, initial encounter (HCC) Start: 04-03-2023 Telephone encounter [facility] Comment on above: Referral - Liver Txp Start: 02-19-2023 End: 02-20-2023 Emergency department patient visit GREG GODDARD [facility] Start: 02-07-2023 End: 02-09-2023 Evaluation and management of inpatient [facility] Start: 09-15-2022 End: 09-17-2022 Evaluation and management of inpatient GREG GODDARD Facility:[id number] Start: 06-24-2022 End: 06-24-[address] Greg Goddard Work Phone: [facility] Work Phone: Start: 06-24-2022 End: 06-24-[address] Greg Goddard Work Phone: [facility]-Laboratory Start: 06-21-2022 Non-patient / Non-visit Dr. Greg Goddard Work Phone: [facility] Start: 06-20-2022 Non-patient / Non-visit Dr. Greg Goddard Work Phone: [facility] Start: 06-20-2022 Non-patient / Non-visit Dr. Greg Goddard Work Phone: [facility] Start: 06-19-2022 Non-patient / Non-visit Dr. Greg Goddard Work Phone: [facility] Start: 06-18-2022 Non-patient / Non-visit Dr. Greg Goddard Work Phone: [facility] Start: 06-18-2022 Non-patient / Non-visit Dr. Greg Goddard Work Phone: [facility] Start: 06-17-2022 Non-patient / Non-visit Dr. Greg Goddard Work Phone: [facility] Start: 06-17-2022 End: 06-21-2022 Evaluation and management of inpatient [facility] Start: 06-17-2022 End: 06-17-[address] Greg Goddard Work Phone: [facility] Work Phone: Start: 06-17-2022 End: 06-17-[address] [facility] Start: 06-17-[address] [facility] Start: 06-16-2022 End: 06-17-2022 Emergency department patient visit Dr. Greg Goddard Work Phone: [facility]Emergency Department Start: 06-16-2022 End: 06-16-2022 Emergency department patient visit Dr. Greg Goddard Work Phone: [facility]Emer[facility] Start: 06-14-2022 End: 06-14-[address] Greg Goddard Work Phone: [facility] Work Phone: Start: 06-14-2022 End: 06-14-[address] [facility] Start: 06-03-2022 End: 06-03-[address] Greg Goddard Work Phone: [facility] Gastroenterology Start: 05-23-2022 End: 06-15-[address] Greg Goddard Work Phone: [facility] Work Phone: Start: 05-23-2022 End: 06-15-[address] [facility] Start: 05-14-2022 End: 05-14-2022 Emergency department patient visit Dr. [facility] Start: 04-21-2022 End: 04-21-[address] Greg Goddard Work Phone: [facility] Work Phone: Start: 04-21-2022 End: 04-21-[address] Greg Goddard Work Phone: [facility] Start: 04-21-[address] Greg Goddard Work Phone: [facility] Start: 03-22-2022 End: 03-22-2022 ambulatory No Primary Care Physician [facility] Work Phone: Start: 03-22-2022 End: 03-22-2022 Discharged Recurring No Primary Care Physician [facility] Start: 03-11-2022 End: 03-11-2022 Patient encounter procedure No Primary Care Physician [facility] Gastroenterology Start: 03-04-2022 End: 03-04-[address] Greg Goddard Work Phone: [facility] Work Phone: Start: 03-04-2022 End: 03-04-2022 Patient encounter procedure No Primary Care Physician [facility] Start: 03-03-2022 Non-patient / Non-visit Dr. Nate Martinez Work Phone: [facility] Start: 03-03-2022 End: 03-03-2022 Admission to same day surgery center Dr. Nate Martinez Work Phone: [facility]-Endoscopy Start: 03-02-2022 Non-patient / Non-visit Dr. Nate Martinez Work Phone: [facility] Start: 03-02-2022 End: 03-02-2022 Admission to same day surgery center Dr. Nate Martinez Work Phone: [facility]-Endoscopy Start: 02-14-2022 End: 02-14-2022 Discharged Recurring No Primary Care Physician [facility] Start: 02-14-[address] Dafne ochoa Friend Work Phone: [facility] Start: 02-09-2022 End: 02-09-[address] Greg Goddard Work Phone: [facility] Work Phone: Start: 02-09-2022 End: 02-09-[address] Nate Martinez Work Phone: [facility]-Outpatient Bone Densitometry Start: 12-24-2021 End: 12-24-2021 Patient encounter procedure 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-C Debrasanjuanita Lipscomb 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 Work Phone: [facility] Start: 12-17-2021 End: 12-17-2021 Patient encounter procedure 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-C Debra Deisi 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 Work Phone: [facility] Gastroenterology Start: 12-08-2021 End: 12-08-2021 Patient encounter procedure 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-C Debra Deisi 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 [facility] Start: 12-08-2021 End: 12-08-2021 Patient encounter procedure 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-C Debra Deisi 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 Work Phone: [facility] Internal Medicine Start: 12-02-2021 Non-patient / Non-visit 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-C Debra Deisi 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 Work Phone: [facility] Start: 12-02-2021 End: 12-02-2021 Admission to same day surgery center 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-C Debra Deisi 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 Work Phone: [facility]-Endoscopy Start: 11-29-2021 End: 11-29-2021 Patient encounter procedure 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-C Debra Deisi 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 Work Phone: [facility] Start: 11-19-2021 End: 11-19-2021 Patient encounter procedure 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-C Debra Deisi 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 [facility] Start: 11-12-2021 End: 11-12-2021 Discharged Recurring 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-C Debra Deisi 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 Work Phone: [facility] Start: 10-27-2021 End: 10-27-2021 Patient encounter procedure 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-C Debra Deisi 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 Work Phone: [facility]Laboratory, [place] Start: 10-19-2021 Telephone encounter Ashia Sinha RN [facility] Comment on above: Referral - Liver Txp (Intake-LM) Start: 10-14-2021 End: 10-14-2021 Patient encounter procedure 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-C Debra Deisi 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 Work Phone: [facility] Internal Medicine Start: 10-13-2021 Telephone encounter Liver Txp Coordinator Work Phone: [facility] Comment on above: Referral - Liver Txp Start: 10-11-2021 End: 10-11-2021 Patient encounter procedure 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-C Debra Deisi 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 Work Phone: [facility]-Cat Scan, [facility] Start: 10-08-2021 End: 10-08-2021 Patient encounter procedure 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-C Debra Deisi 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 Work Phone: [facility]-Ultrasound, [facility] Start: 09-30-2021 End: 09-30-2021 Patient encounter procedure 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-C Debra Deisi 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 Work Phone: [facility] Gastroenterology Start: 09-29-2021 End: 09-29-2021 Patient encounter procedure 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-C Debra Deisi 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 Work Phone: [facility] Start: 09-27-2021 End: 09-27-2021 Patient encounter procedure 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-C Debra Deisi 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 Work Phone: [facility] Start: 09-26-2021 End: 09-26-2021 Emergency department patient visit 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-C Debra Deisi 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 Work Phone: [facility]-Emergency Department Start: 09-14-2021 End: 09-14-2021 Patient encounter procedure 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-C Debrarenetta Ruvalcabane 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 Work Phone: [facility]Labor[facility] Start: 09-13-2021 End: 09-13-2021 Patient encounter procedure 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-C Debra Ruvalcabane 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 Work Phone: [facility] Gastroenterology Procedures Date Procedure Procedure Detail Performing Clinician Start: 04-09-2024 Us abdominal real time w/image limited Barrington Traore MD Work Phone: Start: 09-20-2023 Esophagoscp rig transoral hypopharynx crv esoph Barrington Traore MD Work Phone: Start: 08-08-2023 Assay of ammonia Gus Major MD Work Phone: Start: 08-07-2023 Assay of ammonia Gus Major MD Work Phone: Start: 08-06-2023 Assay of ammonia Gus Major MD Work Phone: Start: 08-05-2023 Gluc bld gluc mntr dev cleared fda spec home use Alex Nogueira MD Work Phone: Start: 08-05-2023 Assay of ammonia Gus Major MD Work Phone: Start: 08-04-2023 Assay of ammonia Gus Major MD Work Phone: Start: 08-03-2023 Assay of ammonia Gus Major MD Work Phone: Start: 08-03-2023 PLATELET CONFIRMATION Cliff Onofre DO Work Phone: Start: 08-02-2023 Assay of ammonia Gus Major MD Work Phone: Start: 08-02-2023 PLATELET CONFIRMATION Cliff Straffin DO Work Phone: Start: 08-01-2023 Assay of ammonia Gus Major MD Work Phone: Start: 08-01-2023 PLATELET CONFIRMATION Cliff Greggin DO Work Phone: Start: 07-31-2023 Assay of ammonia Gus Maojr MD Work Phone: Start: 07-31-2023 PLATELET CONFIRMATION Cliff Greggin DO Work Phone: Start: 07-30-2023 Assay of ammonia Gus Major MD Work Phone: Start: 07-30-2023 PLATELET CONFIRMATION Cliff Greggin DO Work Phone: Start: 07-29-2023 Culture bacterial blood aerobic w/id isolates Mckinley Lizama MD Work Phone: Start: 07-29-2023 CULTURE, BLOOD 1 Mckinley Lizama MD Work Phone: Start: 07-29-2023 RESPIRATORY PANEL, MOLECULAR, WITH COVID-19 Yonas Baron MD Work Phone: Start: 07-29-2023 Assay of ammonia Gus Major MD Work Phone: Start: 07-29-2023 PLATELET CONFIRMATION Cliff Greggin DO Work Phone: Start: 07-28-2023 Assay of ammonia Cliff Greggin DO Work Phone: Start: 07-28-2023 Drug tst prsmv instrmnt chem analyzers pr date Alex Nogueira MD Work Phone: Start: 07-28-2023 Blood count complete auto&auto difrntl wbc Cliff Greggin DO Work Phone: Start: 07-28-2023 PLATELET CONFIRMATION Cliff Greggin DO Work Phone: Start: 07-27-2023 Blood typing serologic abo Cliff Hawthorne n DO Work Phone: Start: 07-27-2023 End: 07-27-2023 Mri spinal canal thoracic w/o contrast matrl Cliffchuckie Wattsdorcasalbert DO Work Phone: Start: 07-27-2023 Comprehensive metabolic panel Cliff bar DO Work Phone: Start: 07-27-2023 PLATELET CONFIRMATION [...] Comment: Specimen Type: BLOOD SPEC IMENOrdering Facility: [facility] Address: [address] [place], [place] [address] Performed By: #### L [id number], TSCR ####[facility] [id number] [address] OF [facility] Start: 06-16-2022 Plain chest X-ray Dr. [...] Duglas Martinez Work Phone: Start: 12-02-2021 Esophagogastroduodenoscopy 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-C Debra Lipscomb 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 Work Phone: Start: 10-27-2021 End: 10-27-2021 Plain x-ray of hand 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-C Debra Lipscomb 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 Work Phone: Start: 10-11-2021 Biopsy/Inj or Needle Placement 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-C Josselyn Lipscomb 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 Work Phone: Start: 10-08-2021 Ultrasonography of abdomen 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-C Debra Lipscomb 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 Work Phone: Start: 10-08-2021 Ultrasound elastography 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-C Debra Lipscomb 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 Work Phone: Bacteria identified in Blood by Culture Dr. Greg Goddard Work Phone: Respiratory Panel (PCR) Dr. Greg Goddard Work Phone: SARS-CoV-2 & FLU Antigen (Rapid) Dr. Greg Goddard Work Phone: Plan of Treatment Date Care Activity Detail Author Start: 09-15-2032 Urine microalbumin profile DTaP,Tdap,Td Vaccine (3 - Td or Tdap) [facility] Start: 07-23-2028 Lipid panel [facility] Start: 04-03-2028 DTaP/Tdap/Td vaccine (2 - Td or Tdap) DTaP/Tdap/Td vaccine (2 - Td or Tdap) [facility] Start: 01-29-2027 Diabetes Screening Diabetes Screening [facility] Start: 08-03-2026 Diabetes Screening Diabetes Screening [facility] Start: 08-01-2024 End: 08-01-2024 Follow-up encounter 08/01/2024 11:30 AM [facility] Gastroenterology [address] [address] Barrington Traore MD [address] [place] [address] 6 month follow up Gastroenterology Comment on above: 6 month follow up Start: 03-17-2024 Covid-19 Vaccine ( season) Covid-19 Vaccine () [facility] Start: 03-17-2024 Influenza vaccination [facility] Start: 02-09-2024 End: 02-09-2024 Patient encounter procedure 02/09/2024 10:00 AM EDT Appointment Radiology [address] [place] [address] Other cirrhosis of liver (HCC) [K74.69] Radiology Comment on above: Other cirrhosis of liver (HCC) [K74.69] Start: 01-30-2024 End: 01-30-2024 Patient encounter procedure 01/30/2024 2:30 PM EDT Office Visit Gastroenterology [address] [address] Barrington Traore MD [address] [place] [address] Liver cirrhosis Gastroenterology Comment on above: Liver cirrhosis Start: 01-30-2024 End: 04-30-2024 [id number] [Mass/volume] in Serum or Plasma [facility] Comment on above: Expected: 01/30/2024, Expires: Start: 01-30-2024 End: 04-30-2024 Comprehensive metabolic 2000 panel - Serum or Plasma [facility] Work Phone: Comment on above: Expected: 01/30/2024, Expires: Start: 08-29-2023 End: 11-28-2023 25-hydroxyvitamin D3 [Mass/volume] in Serum or Plasma VITAMIN D 25 HYDROXY Lab Routine Alcoholic cirrhosis of liver without ascites (HCC) Expected: 08/29/2023, Expires: 11/28/2023 [facility] Work Phone: Comment on above: Expected: 08/29/2023, Expires: Start: 08-29-2023 End: 11-28-2023 ALPHA 1 ANTITRYPSIN PHENOTYPE ALPHA 1 ANTITRYPSIN PHENOTYPE Lab Routine Alcoholic cirrhosis of liver without ascites (HCC) Expected: 08/29/2023, Expires: 11/28/2023 [facility] Work Phone: Comment on above: Expected: 08/29/2023, Expires: Start: 08-29-2023 End: 11-28-2023 [id number] [Mass/volume] in Serum or Plasma ALPHA FETOPROTEIN BL Lab Routine Alcoholic cirrhosis of liver without ascites (HCC) Expected: 08/29/2023, Expires: 11/28/2023 [facility] Work Phone: Comment on above: Expected: 08/29/2023, Expires: Start: 08-29-2023 End: 11-28-2023 CBC panel - Blood by Automated count CBC Lab Routine Alcoholic cirrhosis of liver without ascites (HCC) Expected: 08/29/2023, Expires: 11/28/2023 [facility] Work Phone: Comment on above: Expected: 08/29/2023, Expires: Start: 08-29-2023 End: 11-28-2023 Ceruloplasmin [Mass/volume] in Serum or Plasma CERULOPLASMIN BLD Lab Routine Alcoholic cirrhosis of liver without ascites (HCC) Expected: 08/29/2023, Expires: 11/28/2023 [facility] Work Phone: Comment on above: Expected: 08/29/2023, Expires: Start: 08-29-2023 End: 11-28-2023 Chronic hepatitis differentiation between hepatitis B and C virus panel - Serum or Plasma HEP REMOTE PANEL BL Lab Routine Alcoholic cirrhosis of liver without ascites (HCC) Expected: 08/29/2023, Expires: 11/28/2023 [facility] Work Phone: Comment on above: Expected: 08/29/2023, Expires: Start: 08-29-2023 End: 11-28-2023 Comprehensive metabolic 2000 panel - Serum or Plasma COMP METABOLIC PANEL Lab Routine Alcoholic cirrhosis of liver without ascites (HCC) Expected: 08/29/2023, Expires: 11/28/2023 [facility] Work Phone: Comment on above: Expected: 08/29/2023, Expires: Start: 08-29-2023 End: 11-28-2023 Ferritin [Mass/volume] in Serum or Plasma FERRITIN BLD Lab Routine Alcoholic cirrhosis of liver without ascites (HCC) Expected: 08/29/2023, Expires: 11/28/2023 [facility] Work Phone: Comment on above: Expected: 08/29/2023, Expires: Start: 08-29-2023 End: 11-28-2023 HEPATITIS A ANTIBODY, IGG HEPATITIS A ANTIBODY, IGG Lab Routine Alcoholic cirrhosis of liver without ascites (HCC) Expected: 08/29/2023, Expires: 11/28/2023 [facility] Work Phone: Comment on above: Expected: 08/29/2023, Expires: Start: 08-29-2023 End: 11-28-2023 Iron and Iron binding capacity panel - Serum or Plasma IRON + TIBC Lab Routine Alcoholic cirrhosis of liver without ascites (HCC) Expected: 08/29/2023, Expires: 11/28/2023 [facility] Work Phone: Comment on above: Expected: 08/29/2023, Expires: Start: 08-29-2023 End: 11-28-2023 PT panel - Platelet poor plasma by Coagulation assay PROTHROMBIN TIME/PT Lab Routine Alcoholic cirrhosis of liver without ascites (HCC) Expected: 08/29/2023, Expires: 11/28/2023 [facility] Work Phone: Comment on above: Expected: 08/29/2023, Expires: Start: 08-29-2023 End: 11-28-2023 Thyrotropin [Units/volume] in Serum or Plasma TSH BLD Lab Routine Alcoholic cirrhosis of liver without ascites (HCC) Expected: 08/29/2023, Expires: 11/28/2023 [facility] Work Phone: Comment on above: Expected: 08/29/2023, Expires: Start: 07-17-2023 Behavioral Health Screening Behavioral Health Screening [facility] Start: 07-17-2023 Depression Assessment Depression Assessment [facility] Start: 03-17-2023 Covid-19 Vaccine ( season) Covid-19 Vaccine ( season) [facility] Start: 03-17-2023 Influenza vaccination Influenza Vaccine (#1) [facility] Start: 02-14-2023 Influenza vaccination Flu vaccine (#1) [facility] Start: 06-22-2022 [facility] Work Phone: Start: 06-21-2022 Patient discharge [facility] Work Phone: Start: 06-21-2022 Referral to service [facility] Work Phone: Start: 06-20-2022 End: 06-20-2022 Blood culture [facility] Work Phone: Start: 06-20-2022 [facility] Work Phone: Start: 06-20-2022 Respiratory secretion precautions [facility] Work Phone: Start: 06-20-2022 [facility] Work Phone: Start: 06-18-2022 Application of intermittent pneumatic compression device [facility] Work Phone: Start: 06-17-2022 Following clinical pathway protocol [facility] Work Phone: Start: 06-17-2022 Ambulation without limitation [facility] Work Phone: Start: 06-17-2022 Assessment of risk of venous thromboembolism [facility] Work Phone: Start: 06-17-2022 Insertion of catheter into peripheral vein [facility] Work Phone: Start: 06-17-2022 Providing care according to standard [facility] Work Phone: Start: 06-17-2022 Referral to gastroenterology service [facility] Work Phone: Start: 06-17-2022 [facility] Work Phone: Start: 06-17-2022 Admission procedure [facility] Work Phone: Start: 06-17-2022 Patient referral to dietitian [facility] Work Phone: Start: 03-03-2022 Colsc flx w/rmvl of tumor polyp lesion snare tq COLONOSCOPY W/LESION REMOVAL [facility] Work Phone: Start: 03-03-2022 Patient discharge [facility] Work Phone: Start: 03-02-2022 Colonoscopy flx dx w/collj spec when pfrmd DIAGNOSTIC COLONOSCOPY [facility] Work Phone: Start: 03-02-2022 Patient discharge [facility] Work Phone: Start: 12-02-2021 Egd band ligation esophgeal/gastric varices EGD VARICES LIGATION [facility] Work Phone: Start: 12-02-2021 Patient discharge [facility] Work Phone: Start: 2019 Screening for malignant neoplasm of colon [facility] Start: 1993 Hepatitis A vaccine (1 of 2 - Risk 2-dose series) Hepatitis A vaccine (1 of 2 - Risk 2-dose series) [facility] Start: 1993 Hepatitis B Vaccine (1 of 3 - 19+ 3-dose series) Hepatitis B Vaccine (1 of 3 - 19+ 3-dose series) [facility] Start: 1993 Shingrix Vaccine (1 of 2) Shingrix Vaccine (1 of 2) [facility] Start: 1992 Anxiety Screening Anxiety Screening [facility] Start: 1992 Depression Screening Depression Screening [facility] Start: 1992 Hepatitis C screening Hepatitis C screen [facility] Start: 1989 HIV screening HIV screen [facility] Start: 1986 Depression Screen Depression Screen [facility] Start: 1980 Pneumococcal 0-64 years Vaccine (1 - PCV) Pneumococcal 0-64 years Vaccine (1 - PCV) [facility] Start: 1980 Pneumococcal vaccination Pneumococcal Vaccine (1 of 2 - PCV) [facility] Start: 1974 COVID-19 Vaccine (#1) COVID-19 Vaccine (#1) [facility] Start: 1974 Hepatitis B vaccine (1 of 3 - 3-dose series) Hepatitis B vaccine (1 of 3 - 3-dose series) [facility] Bacteria identified in Blood by Culture Blood Culture [facility] Work Phone: Blood culture [facility] Work Phone: End: 09-27-2024 CT Liver W contrast IV CT LIVER W IVCON Radiology Routine Alcoholic cirrhosis of liver without ascites (HCC) 1 Occurrences starting 08/29/2023 until 09/27/2024 [facility] Work Phone: Comment on above: 1 Occurrences starting 08/29/2023 until 09/27/2024 CT Liver W contrast IV CT LIVER W IVCON Radiology Routine Alcoholic cirrhosis of liver without ascites (HCC) 09/19/2023 2:34 PM EST [facility] Work Phone: End: 08-29-2024 EGD - THERAPEUTIC, EUS, OR TUBE INTERVENTIONS EGD - THERAPEUTIC, EUS, OR TUBE INTERVENTIONS Endoscopy Routine Alcoholic cirrhosis of liver without ascites (HCC) 1 Occurrences starting 08/29/2023 until 08/29/2024 [facility] Work Phone: Comment on above: 1 Occurrences starting 08/29/2023 until 08/29/2024 Oxygen therapy [[facility] Data Set] Initiate Oxygen Therapy Protocol Respiratory Care Routine As Needed until discontinued starting 07/27/2023 [facility] Comment on above: As Needed until discontinued starting Patient Education [facility] Work Phone: Patient referral [facility] Work Phone: Procedure [facility] Work Phone: Serum insulin measurement [facility] Work Phone: Spirometry panel Incentive nessa metry Respiratory Care Routine Every 2hr while awake until discontinued starting 07/28/2023 [facility] Comment on above: Every 2hr while awake until discontinued starting 07/28/2023 End: 02-28-2025 US Abdomen RUQ US ABD RIGHT UPPER QUADRANT Radiology Routine Other cirrhosis of liver (HCC) 1 Occurrences starting 01/30/2024 until 02/28/2025 [facility] Comment on above: 1 Occurrences starting 01/30/2024 until 02/28/2025 [facility] Immunizations Immunization Date Immunization Notes Care Provider Fa cili 11-27-2024 tetanus toxoid, redu dominick diphtheria toxoid, and acellular pertussis vaccine, adsorbed DR ISIDRO BURT MD [facility] 09-15-2022 tetanus toxoid, redu dominick diphtheria toxoid, and acellular pertussis vaccine, adsorbed DR ISIDRO BURT MD [facility] 04-03-2018 tetanus toxoid, redu dominick diphtheria toxoid, and acellular pertussis vaccine, adsorbed Ashia Sinha RN [facility] Payers Date Payer Category Payer Self-pay [id number] [phone] [id number] 2023 Medicaid [id number] 2023 Private Health Insurance HUMANA HUMANA MEDICAID [facility] [id number] 2023-Present [address] [address] [place] [address] Medicaid [id number] 2023 Medicaid [id number] 2023 Unknown [id number] 2023 Unknown [id number] 2022 Unknown ANTHEM BLUE CARD PPO OOS [id number] 2022-Present [phone] [address] [place] [address] PPO [id number] 2021 Unknown [id number] 2021 Unknown ANTHEM BLUE CARD PPO OOS [id number] 2021-Present [phone] [address] [place] [address] PPO [id number] 1974 Unknown [id number] 2.16840.1.122054.3.579.2.9 03 1974 Unknown [id number] 2.16840.1.515344.3.579.2.9 02 1974 Unknown [id number] 2.840.1.120916.3.579.2.2 04 1974 Unknown [id number] 2.16840.1.212204.3.579.2.2 04 1974 Unknown [id number] 2.16840.1.942349.3.579.2.2 04 1974 Unknown [id number] 2.16840.1.564021.3.579.2.2 04 1974 Unknown [id number] 2.840.1.048374.3.579.2.2 04 1974 Unknown [id number] 2.16840.1.463288.3.579.2.2 04 1974 Unknown [id number] 2.16840.1.599568.3.579.2.6 27 1974 Unknown [id number] 2.16840.1.248065.3.579.2.6 27 1974 Unknown [id number] 2.16840.1.068618.3.579.2.6 27 1974 Unknown [id number] 2.16.840.1.193661.3.579.2.6 1974 Unknown [id number] 2.16.840.1.781776.3.579.2.6 1974 Unknown [id number] 2.16.840.1.699780.3.579.2.6 1974 Unknown [id number] 2.16.840.1.747189.3.579.2.6 1974 Unknown [id number] 2.16.840.1.518385.3.579.2.6 1974 Unknown [id number] 2.16.840.1.524894.3.579.2.6 51 Unknown [facility] PACKAGE PLAN [id number] Unknown [id number] 2.16.840.1.331801.3.579.2.4 62 Unknown [id number] 2.16.840.1.146028.3.579.2.4 62 Unknown [id number] 2.16.840.1.272465.3.579.2.4 62 Unknown [id number] 2.16.840.1.005267.3.579.2.4 62 Unknown [id number] 2.16.840.1.389528.3.579.2.4 62 Unknown [id number] 2.16840.1.560898.3.579.2.4 62 Unknown [id number] 2.16.840.1.790141.3.579.2.4 62 Unknown [id number] 2.16.840.1.573886.3.579.2.4 62 Unknown [id number] 2.16.840.1.548184.3.579.2.4 62 Social History Date Type Detail Facility Start: 10-11-2021 End: 06-17-2022 Tobacco smoking status MDIS Unknown if ever smoked [facility] Start: 1975 Sex Assigned At Male [facility] Start: 1975 Sex Assigned At Not on file [facility] Start: 10-02-2021 End: 10-12-2021 Exposure to SARS-CoV-2 (event) Not sure [facility] Start: 12-07-2022 End: 01-30-2024 History of Social function [employer] Start: 12-07-2022 End: 01-30-2024 Area Deprivation Index [facility] [employer] National Score (1-10 0), lower number is lower risk 70 [facility] Has the [employer], Patient Feed, or water [employer] threatened to shut off services in your home in past 12Mo No [employer] How often to you hav e a drink containing alcohol? Never [employer] (I/We) worried samir er (my/our) food would run out before (I/we) got money to buy more. Never true [employer] Start: 08-29-2023 Tobacco smoking stat us NHIS Never smoked tobacco [facility] Start: 08-29-2023 Tobacco use and exposure Smoke less tobacco non-user [facility] Start: 08-29-2023 End: 01-30-2024 Alcohol intake Ex-drinker (finding) [facility] Start: 08-29-2023 Tobacco Comment [facility] Tobacco Nicotine Use: Va ping Product in Last 90 Days. [facility] Tobacco smoking status [facility] Start: 07-13-2024 Sex Male (finding) [facility] Start: 11-02-2024 Tobacco smoking status Ex-smoker (fi nding) [facility] Medical Equipment Procedure Code Equipment Code Equipment [...] X 8mm Thd 10mm (07/17) [id number] Start: 03-03-2023 L1 Mmf Screw Dri ll Free Ti-6al-4v 2.0mm X 8mm Thd 10mm (07/17) [id number] Start: 09-16-2022 Locking Screw 2.7x13mm [id number] S tart: 09-16-2022 L1 Mmf Screw Dri ll Free Ti-6al-4v 2.0mm X 8mm Thd 10mm (07/17) [id number] Start: 09-16-2022 Goals Date Patient Goal Desired Activity /State Functional Status Date Assessment Result Facility 11-27-2024 Functional Status Assistive Device None A [facility] 11-27-2024 Functional Status Standard Safet y ID band on, Call device within reach, Bed in low position, Wheels locked, Upper/Half-Length side-rails up, Phone within reach [facility] 07-14-2024 Functional Status Activity Jayna tanchuckie Minimum assistance [facility] 07-14-2024 Functional Status Standard Safet y ID band on, Call device within reach, Bed in low position, Wheels locked, Upper/Half-Length side-rails up, Safety level maintained [facility] 07-13-2024 Functional Status Assistive Device Wheelc hair [facility] 07-13-2024 Functional Status Standard Safet y ID band on, Call device within reach, Bed in low position, Wheels locked, Upper/Half-Length side-rails up, Bedside Cart Locked [facility] 06-21-2022 Functional status Ambulates [facility] Work Phone: Mental Status Date Assessment Result Facility 11-27-2024 Mental Status Orientation Oriented x 4 [facility] 11-27-[address] [facility] 07-14-2024 Mental Status Orientation Oriented x 4 [facility] 07-14-[address] [facility] 07-13-2024 Mental Status Orientation Oriented x 4 [facility] 07-13-[address] [facility] 06-21-2022 Cognitive function Awake;Alert;A ppropriate;Follow s Commands [facility] Work Phone: 06-20-2022 Cognitive function Voice/Name [facility] Work Phone: 06-16-2022 Cognitive function Level Of Cons ciousness Awake;Alert;Appropriate;Follow s Commands [facility] Work Phone: 06-16-2022 Cognitive function Voice/Name [facility] Work Phone: 05-14-2022 Cognitive function Restless [facility] Work Phone: 03-03-2022 Cognitive function Level Of Consciousness Drowsy [facility] Work Phone: 03-03-2022 Cognitive function Patient Orien tation Person;Place;Time [facility] Work Phone: 03-02-2022 Cognitive function Voice/Name [facility] Work Phone: 12-02-2021 Cognitive function Follows Commands [facility] Work Phone: 10-11-2021 Cognitive function Voice/Name [facility] Work Phone: 09-26-2021 Cognitive function Level Of Cons ciousness Awake;Appropriate;Follows Commands;Disoriented [facility] Work Phone: Clinical Notes 10-13-2021 to 02-12-2025 Note Date & Type Note Facility 02-12-2025 Hospital Discharg e instructions Patient Education 02/12/2025 18:18:19 Fall, Mechanical Mechanical Fall You have had [...] the next day, and not just the muscles you injured at first. Remember, all the parts [...] get a concussion from your head suddenly jerking forward, backward, or sideways when falling. Concussions and [...] the advice from your healthcare provider regarding care of your injury. At first, do not try [...] 10 days. It is important to keep the abrasions clean while they initially start to heal. [...] in vomit, stools (black or red color) [id number] [employer]. [address] [place] [address]. All rights reserved. This information is not intended as a substitute for professional medical care. Always follow your healthcare professional's instructions. Follow Up Care 02/12/2025 17:41:45 With:LIDIA RIZVI MD Address: [address] [place] [phone]- [phone] When:2-4 days [facility] 02-12-2025 Note Discharge Instructions Thank you for allowing [facility] to assist you with your healthcare needs. The following is important discharge information regarding your hospital visit. Diagnosis from Today's Visit Fall What to Do Next Instructions from Your Care Team No qualifying data available. Post Acute Orders No qualifying data available. You Need to Schedule the Following Appointments Follow Up with LIDIA RIZVI MD When:Within 2-4 days Where:[address] [place] [address]- [phone] Allergies NKA No Known Medication Allergies Medications [...] medication providers or retail pharmacies. Education Materials Mechanical Fall You have had a fall [...] the next day, and not just the muscles you injured at first. Remember, all the parts [...] get a concussion from your head suddenly jerking forward, backward, or sideways when falling. Concussions and [...] the advice from your healthcare provider regarding care of your injury. At first, do not try [...] 10 days. It is important to keep the abrasions clean while they initially start to heal. [...] in vomit, stools (black or red color) [id number] [employer]. [address] [place] [address], [place] [address]. All rights reserved. This information is not intended as a substitute for professional medical care. Always follow your healthcare professional's instructions. Additional Information VACCINATE! IT SAVES LIVES! Members of the community who have not yet received the COVID-19 vaccine and would like to receive it can visit one of [facility] vaccine clinics. There are many vaccine clinic locations within the [facility]. For locations and available times, please visit [email or web address] It is important to note that some COVID mobile vaccine clinics are held outdoors and may be canceled in rainy or stormy conditions. To learn more about pediatric vaccinations (ages 5-11), we invite you to visit the [facility] webpage. [email or web address] ages/[id number]-[id number]-Freq skxorq-Lzvek-Sdllbhwvk.html To learn more about the COVID-19 vaccine, we invite you to visit the CDC website for a list of frequently asked questions. https://www.cdc.gov/coronavirus/ 2019-ncov/vaccines/faq.html [facility] Patient Portal Access Instructions: Stay connected with your healthcare team and access your personal medical information anytime with the [facility] Patient Portal. If you would like a full copy of your medical records please contact the [facility] Medical Records Department Monday through Monday between 8a.m. and 4:30p.m. Please follow the directions below to access the portal: 1.Access the email account you provided upon registration to the hospital.2.Look for an invitation email from [facility].3.Open the email and access the invitation link: Accept Invitation to [facility]4.Fill in the required blair to create your account. Sign into [email or web address].[email or web address] with your username and password that you [...] you will allow to register on the [facility] Patient Portal for access to your information. You can also access the [facility] Patient Portal on the [employer] Simply click on Health Records under Health Data and then click on the [employer] logo. HOW TO SAFELY DISPOSE OF PRESCRIPTION [...] Call your local pharmacy or go to http://Business Lab.CitizenNet/3V8Xm1c to find one close to you.3.Make use of household items: Use cat litter or old coffee grounds to dispose medications if other options are not available. Mix your drugs with these household products, seal them in an airtight container and throw it into the garbage. Call [facility]: [phone] to be sure your drugs can be [...] a CHART COPY Signatures Patient Education Materials Fall, Mechanical Medication Leaflets My discharge plan and instructions have been reviewed and explained to me and I,ALEX ROJO understand my current condition and have read and understand these discharge instructions. I have received a written copy of the plan/instructions. If I have questions, I am aware that I should contact my doctor. 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 Blood ammonia test, NH3 What is this test? This test checks the level of ammonia in your blood. It helps find out why you may have changes in consciousness and also helps diagnose a liver disease called hepatic encephalopathy. This disease affects how your brain works, because of excess toxins, or poisons, in your body. Your liver may not be working properly if you have high levels of ammonia in your blood. Ammonia is a chemical made by bacteria in your intestines and your body's cells while you process protein. Your body treats ammonia as a waste product, and gets rid of it through the liver. It can be added to other chemicals to form an amino acid called glutamine. It can also be used to form a chemical compound called urea. Your bloodstream moves the urea to your kidneys, where it is eliminated in your urine. But ammonia will build up in your body if you can't get rid of urea. This can sometimes happen if you have kidney or liver failure. It can also happen if you have a urea cycle disorder, a genetic disorder that means your body is missing any of the enzymes that remove ammonia from the blood. The ammonia blood test is the gold standard for diagnosing urea cycle disorders. Too much ammonia in your body can cause psychological problems like confusion, tiredness, and possibly coma or . A child's reaction to too much ammonia can include seizures, breathing trouble, lower response, and potentially . Why do I need this test? You might have this test if you have abnormal neurological changes or you enter a coma unexpectedly. This test is done to help find ammonia caused by severe liver disease or kidney failure. You might also have this test if your healthcare provider suspects that you have a rare urea cycle disorder or Pamela syndrome. Pamela syndrome is a potentially fatal disease that affects the brain and liver. Children may have this test if they frequently vomit or are very tired within a week after a virus-related illness. What other tests might I have along with this test? If your healthcare provider suspects that you have a urea cycle disorder, he or she may order other tests that look at ammonia levels in your body. What do my test results mean? Many things may affect your lab test results. These include the method each lab uses to do the test. Even if your test results are different from the normal value, you may not have a problem. To learn what the results mean for you, talk with your healthcare provider. Test results are given in micrograms per deciliter (mcg/dL). Normal ranges are: Age 0 to 10 days (enzymatic): 170 to 341 mcg/dL Infants and toddlers, from 10 days to 2 years old (enzymatic): 68 to 136 mcg/dL Children, older than 2 years (enzymatic): 19 to 60 mcg/dL Adults: 10 to 80 mcg/dL If your test results are higher than normal, it can mean that you have: Liver disease Pamela's syndrome People who have a portacaval shunt in their liver to treat high blood pressure may also have higher levels of ammonia. Levels that are lower than normal can mean that your kidneys aren't removing waste as they should. How is this test done? The test requires a blood sample, which is drawn through a needle from a vein in your arm. Does this test pose any risks? Taking a blood sample with a needle carries risks that include bleeding, infection, bruising, or feeling dizzy. When the needle pricks your arm, you may feel a slight stinging sensation or pain. Afterward, the site may be slightly sore. What might affect my test results? Medicines such as polymyxin B, diuretics, valproic acid and methicillin can cause fspwqv-glda-fxeqqx results. Other medicines, including tetracycline, lactulose, monoamine oxidase inhibitors, or neomycin, can cause results that are lower than normal. How do I get ready for this test? Don';t exercise or smoke cigarettes before this test. No other preparation is needed. Be sure your healthcare provider knows about all medicines, herbs, vitamins, and supplements you are taking. This includes medicines that don't need a prescription and any illicit drugs you may use. [phone] The [employer]. [address] [place] [address]. All rights reserved. This information is not intended as a substitute for professional medical care. Always follow your healthcare professional's instructions. Follow Up Care 01/24/2025 20:48:23 With:Go to emergency room if symptoms worsen Address:Unknown When:2-4 days With:LIDIA RIZVI MD Address: [address] [place] [phone] When:2-4 days [facility] 01-24-2025 Emergency department Discharge summary Discharge Instructions Thank you for allowing [facility] to assist you with your healthcare needs. The following is important discharge information regarding your hospital visit. Diagnosis from Today's Visit Confusion Hepatic encephalopathy What to Do Next Instructions from Your Care Team No qualifying data available. Post Acute Orders No qualifying data available. You Need to Schedule the Following Appointments Follow Up with Go to emergency room if symptoms worsen When:Within 2-4 days Follow Up with LIDIA RIZVI MD When:Within 2-4 days Where:[address] [place] [address]- [phone] Allergies NKA No Known Medication Allergies Medications [...] medication providers or retail pharmacies. Education Materials Ammonia Does this test have other names? Blood ammonia test, NH3 What is this test? This test checks the level of ammonia in your blood. It helps find out why you may have changes in consciousness and also helps diagnose a liver disease called hepatic encephalopathy. This disease affects how your brain works, because of excess toxins, or poisons, in your body. Your liver may not be working properly if you have high levels of ammonia in your blood. Ammonia is a chemical made by bacteria in your intestines and your body's cells while you process protein. Your body treats ammonia as a waste product, and gets rid of it through the liver. It can be added to other chemicals to form an amino acid called glutamine. It can also be used to form a chemical compound called urea. Your bloodstream moves the urea to your kidneys, where it is eliminated in your urine. But ammonia will build up in your body if you can't get rid of urea. This can sometimes happen if you have kidney or liver failure. It can also happen if you have a urea cycle disorder, a genetic disorder that means your body is missing any of the enzymes that remove ammonia from the blood. The ammonia blood test is the gold standard for diagnosing urea cycle disorders. Too much ammonia in your body can cause psychological problems like confusion, tiredness, and possibly coma or . A child's reaction to too much ammonia can include seizures, breathing trouble, lower response, and potentially . Why do I need this test? You might have this test if you have abnormal neurological changes or you enter a coma unexpectedly. This test is done to help find ammonia caused by severe liver disease or kidney failure. You might also have this test if your healthcare provider suspects that you have a rare urea cycle disorder or Pamela syndrome. Pamela syndrome is a potentially fatal disease that affects the brain and liver. Children may have this test if they frequently vomit or are very tired within a week after a virus-related illness. What other tests might I have along with this test? If your healthcare provider suspects that you have a urea cycle disorder, he or she may order other tests that look at ammonia levels in your body. What do my test results mean? Many things may affect your lab test results. These include the method each lab uses to do the test. Even if your test results are different from the normal value, you may not have a problem. To learn what the results mean for you, talk with your healthcare provider. Test results are given in micrograms per deciliter (mcg/dL). Normal ranges are: Age 0 to 10 days (enzymatic): 170 to 341 mcg/dL Infants and toddlers, from 10 days to 2 years old (enzymatic): 68 to 136 mcg/dL Children, older than 2 years (enzymatic): 19 to 60 mcg/dL Adults: 10 to 80 mcg/dL If your test results are higher than normal, it can mean that you have: Liver disease Pamela's syndrome People who have a portacaval shunt in their liver to treat high blood pressure may also have higher levels of ammonia. Levels that are lower than normal can mean that your kidneys aren't removing waste as they should. How is this test done? The test requires a blood sample, which is drawn through a needle from a vein in your arm. Does this test pose any risks? Taking a blood sample with a needle carries risks that include bleeding, infection, bruising, or feeling dizzy. When the needle pricks your arm, you may feel a slight stinging sensation or pain. Afterward, the site may be slightly sore. What might affect my test results? Medicines such as polymyxin B, diuretics, valproic acid and methicillin can cause ncrukh-styb-cqvxqa results. Other medicines, including tetracycline, lactulose, monoamine oxidase inhibitors, or neomycin, can cause results that are lower than normal. How do I get ready for this test? Don';t exercise or smoke cigarettes before this test. No other preparation is needed. Be sure your healthcare provider knows about all medicines, herbs, vitamins, and supplements you are taking. This includes medicines that don't need a prescription and any illicit drugs you may use. [phone] [employer]. [address] [place] [address]. All rights reserved. This information is not intended as a substitute for professional medical care. Always follow your healthcare professional's instructions. Additional Information VACCINATE! IT SAVES LIVES! Members of the community who have not yet received the COVID-19 vaccine and would like to receive it can visit one of [facility] vaccine clinics. There are many vaccine clinic locations within the [facility]. For locations and available times, please visit [email or web address] It is important to note that some COVID mobile vaccine clinics are held outdoors and may be canceled in rainy or stormy conditions. To learn more about pediatric vaccinations (ages 5-11), we invite you to visit the [facility] webpage. [email or web address]://www.[email or web address].org/p ages/3336-Ntcsa-Ihaiwcizpds-Freq [email or web address]-Eyjkgvrzg.html To learn more about the COVID-19 vaccine, we invite you to visit the CDC website for a list of frequently asked questions. https://www.cdc.gov/coronavirus/ 2019-ncov/vaccines/faq.html [facility] Patient Portal Access Instructions: Stay connected with your healthcare team and access your personal medical information anytime with the [facility] Patient Portal. If you would like a full copy of your medical records please contact the [facility] Medical Records Department Monday through Monday between 8a.m. and 4:30p.m. Please follow the directions below to access the portal: 1.Access the email account you provided upon registration to the [facility].2.Look for an invitation email from [facility].3.Open the email and access the invitation link: Accept Invitation to [facility] [employer]4.Fill in the required blair to create your account. Sign into www.[employer] with your username and password that you [...] you will allow to register on the [facility] Patient Portal for access to your information. You can also access the [facility] Patient Portal on the [employer] Simply click on Health Records under Health Data and then click on the [employer] logo. HOW TO SAFELY DISPOSE OF PRESCRIPTION [...] Call your local pharmacy or go to http://Business Lab.[employer]izen[employer]/1H5Bt4u to find one close to you.3.Make use of household items: Use cat litter or old coffee grounds to dispose medications if other options are not available. Mix your drugs with these household products, seal them in an airtight container and throw it into the garbage. Call [facility]: [phone] to be sure your drugs can be [...] a CHART COPY Signatures Patient Education Materials Ammonia Medication Leaflets My discharge plan and instructions have been reviewed and explained to me and I,ALEX ROJO understand my current condition and have read and understand these discharge instructions. I have received a written copy of the plan/instructions. If I have questions, I am aware that I should contact my doctor. 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 It is not just a state of unhappiness or sadness. It is a true disease. The cause seems to be related to a decrease in chemicals that transmit signals in the brain. Having a family history of depression, alcoholism, or suicide increases the risk. Chronic illness, chronic pain, migraine headaches, and high emotional stress also increase the risk. Depression is something we tend to recognize in others, but may have a hard time seeing in ourselves. It can show in many physical and emotional ways: Loss of appetite Overeating Not being able to sleep Sleeping too much Tiredness not related to physical exertion Restlessness or irritability Slowness of movement or speech Feeling depressed or withdrawn Loss of interest in things you once enjoyed Trouble concentrating, poor memory, trouble making decisions Thoughts of harming or killing oneself, or thoughts that life is not worth living Low self-esteem The treatment for depression may include both medicine and psychotherapy. Antidepressants can reduce suffering and can improve the ability to function during the depressed period. Therapy can offer emotional support and help you understand emotional factors that may be causing the depression. Home care Ongoing care and support help people manage this disease. Find a healthcare provider and therapist who meet your needs. Seek help when you feel like you may be getting ill. Be kind to yourself. Make it a point to do things that you enjoy (gardening, walking in nature, going to a movie). Reward yourself for small successes. Take care of your physical body. Eat a balanced diet (low in saturated fat and high in fruits and vegetables). Exercise at least 3 times a week for 30 minutes. Even mild-moderate exercise (like briskwalking) can make you feel better. Don't drink alcohol, which can make depression worse. Take medicine as prescribed. Tell each of your healthcare providers about all of the prescription and fjkk-xrx-nmmlytd medicines, vitamins, and supplements you take. Certain supplements interact with medicines and can result in dangerous side effects. Ask your pharmacist when you have questions about medicine interactions. Talk with your family and trusted friends about your feelings and thoughts. Ask them to help you recognize behavior changes early so you can get help and, if needed, medicine can be adjusted. Follow-up care Follow up with your healthcare provider, or as advised. Call 911 Call 911 if you: Have suicidal thoughts, a suicide plan, and the means to carry out the plan; or serious thoughts ofhurting someone else Have trouble breathing Are very confused Feel very drowsy or have trouble awakening Faint or lose consciousness Have new chest pain that becomes more severe, lasts longer, or spreads into your shoulder, arm, neck, jaw, or back When to seek medical advice Call your healthcare provider right away if any of these happen: Feeling extreme depression, fear, anxiety, or anger toward yourself or others Feeling out of control Feeling that you may try to harm yourself or another Hearing voices that others do not hear Seeing things that others do not see Can t sleep or eat for 3 days in a row Friends or family express concern over your behavior and ask you to seek help [phone] [employer]. [address] [place] [address]. All rights reserved. This information is not intended as a substitute for professional medical care. Always follow yourhealthcare professional's instructions. Follow Up Care 01/24/2025 02:43:55 With:[facility] Address: [address] [place] [phone]- When:2-4 days With:Go to emergency room if symptoms worsen Address:Unknown When:2-4 days With:LIDIA RIZVI MD Address: [address] [place] [phone] When:2-4 days [facility] 07-11-2025 Note Discharge Instructions Thank you for allowing [facility] to assist you with your healthcare needs. The following is importantdischarge information regarding your hospital visit. Diagnosis from Today's Visit Depression Encounter for medical screening examination What to Do Next You Need to Schedule the Following Appointments Follow Up with [facility] When:Within 2-4 days Where:[address] [place] [phone]- Follow Up with Go to emergency room if symptoms worsen When:Within 2-4 days Follow Up with LIDIA RIZVI MD When:Within 2-4 days Where:[address] [place] [phone]- [phone] Allergies NKA No Known Medication Allergies Medications Please ask your primary doctor or pharmacist before taking any other medication not listed, including over the counter drugs, herbal medications, vitamins and or supplements as they may interact withyour home medications. What How Much When Instructions [...] medication providers or retail pharmacies. Education Materials Depression Depression is one of the most common mental health problems today. It is not just a state of unhappiness or sadness. It is a true disease. The cause seems to be related to a decrease in chemicals that transmit signals in the brain. Having a family history of depression, alcoholism, or suicide increases the risk. Chronic illness, chronic pain, migraine headaches, and high emotional stress also increase the risk. Depression is something we tend to recognize in others, but may have a hard time seeing in ourselves. It can show in many physical and emotional ways: Loss of appetite Overeating Not being able to sleep Sleeping too much Tiredness not related to physical exertion Restlessness or irritability Slowness of movement or speech Feeling depressed or withdrawn Loss of interest in things you once enjoyed Trouble concentrating, poor memory, trouble making decisions Thoughts of harming or killing oneself, or thoughts that life is not worth living Low self-esteem The treatment for depression may include both medicine and psychotherapy. Antidepressants can reduce suffering and can improve the ability to function during the depressed period. Therapy can offer emotional support and help you understand emotional factors that may be causing the depression. Home care Ongoing care and support help people manage this disease. Find a healthcare provider and therapist who meet your needs. Seek help when you feel like you may be getting ill. Be kind to yourself. Make it a point to do things that you enjoy (gardening, walking in nature, going to a movie). Reward yourself for small successes. Take care of your physical body. Eat a balanced diet (low in saturated fat and high in fruits and vegetables). Exercise at least 3 times a week for 30 minutes. Even mild-moderate exercise (like briskwalking) can make you feel better. Don't drink alcohol, which can make depression worse. Take medicine as prescribed. Tell each of your healthcare providers about all of the prescription and htej-uud-eripccu medicines, vitamins, and supplements you take. Certain supplements interact with medicines and can result in dangerous side effects. Ask your pharmacist when you have questions about medicine interactions. Talk with your family and trusted friends about your feelings and thoughts. Ask them to help you recognize behavior changes early so you can get help and, if needed, medicine can be adjusted. Follow-up care Follow up with your healthcare provider, or as advised. Call 911 Call 911 if you: Have suicidal thoughts, a suicide plan, and the means to carry out the plan; or serious thoughts ofhurting someone else Have trouble breathing Are very confused Feel very drowsy or have trouble awakening Faint or lose consciousness Have new chest pain that becomes more severe, lasts longer, or spreads into your shoulder, arm, neck, jaw, or back When to seek medical advice Call your healthcare provider right away if any of these happen: Feeling extreme depression, fear, anxiety, or anger toward yourself or others Feeling out of control Feeling that you may try to harm yourself or another Hearing voices that others do not hear Seeing things that others do not see Can t sleep or eat for 3 days in a row Friends or family express concern over your behavior and ask you to seek help [phone] [employer]. [address] [place] [address], [place] [address]. All rights reserved. This information is not intended as a substitute for professional medical care. Always follow yourhealthcare professional's instructions. Additional Information VACCINATE! IT SAVES LIVES! Members of the community who have not yet received the COVID-19 vaccine and would like to receive it can visit one of [facility] vaccine clinics. There are many vaccine clinic locations within the [facility]. For locations and available times, please visit www.[email or web address].gov/. It is important to note that some COVID mobile vaccine clinics are held outdoors and may be canceled in rainy or stormy conditions. To learn more about pediatric vaccinations (ages 5-11), we invite you to visit the [employer] webpage. https://www.[email or web address].org/pages/0183-Vigfy-Oghhpehprgn-Cqkeuwsgaa-Kaoyc-Axe stions.htmlTo learn more about the COVID-19 vaccine, we invite you to visit the CDC website for a list of frequently asked questions. https://www.cdc.gov/coronavirus/2019-ncov/vaccines/faq.html locr Patient Portal Access Instructions: Stay connected with your healthcare team and access your personal medical information anytime with the [facility] Patient Portal. If you would like a full copy of your medical records please contact the [facility] Medical Records Department Monday through Monday between 8a.m. and 4:30p.m. Please follow the directions below to access the portal: 1.Access the email account you provided upon registration to the hospital.2.Look for an invitation email from [facility].3.Open the email and access the invitation link: Accept Invitation to locr4.Fill in the required blair to create your account. Sign into [email or web address] with your username and password that you [...] you will allow to register on the locr Patient Portal for access to your information. You can also access the locr Patient Portal on the [employer] Simply click on Health Records under Domain Media and then click on the [employer]Enterprise logo. HOW TO SAFELY DISPOSE OF PRESCRIPTION [...] Call your local pharmacy or go to http://Business Lab.CitizenNet/8Y5Ba0c to find one close to you.3.Make use of household items: Use cat litter or old coffee grounds to dispose medications if other options arenot available. Mix your drugs with these household products, seal them in an airtight container andthrow it into the garbage. Call [facility]: [phone] to be sure your drugs can be [...] a CHART COPY Signatures Patient Education Materials Depression Medication Leaflets My discharge plan and instructions have been reviewed and explained to me and I,ALEX ROJOd my current condition and have read and understand these discharge instructions. I have received a written copy of the plan/instructions. If I have questions, I am aware that I should contact my doctor. 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 The following is importantdischarge information regarding your hospital visit. What to Do Next Instructions from Your Care Team No qualifying data available. Post Acute Orders No qualifying data available. You Need to Schedule the Following Appointments Follow Up with LIDIA RIZVI MD When:Within 2-4 days Where:[address] [place] [address]- [phone] Allergies NKA No Known Medication Allergies Medications Please ask your primary doctor or pharmacist before taking any other medication not listed, including over the counter drugs, herbal medications, vitamins and or supplements as they may interact withyour home medications. What How Much When Instructions [...] medication providers or retail pharmacies. Education Materials Ammonia Does this test have other names? Blood ammonia test, NH3 What is this test? This test checks the level of ammonia in your blood. It helps find out why you may have changes in consciousness and also helps diagnose a liver disease called hepatic encephalopathy. This disease affects how your brain works, because of excess toxins, or poisons, in your body. Your liver may not be working properly if you have high levels of ammonia in your blood. Ammonia pascual chemical made by bacteria in your intestines and your body's cells while you process protein. Your body treats ammonia as a waste product, and gets rid of it through the liver. It can be added to other chemicals to form an amino acid called glutamine. It can also be used to form a chemical compound called urea. Your bloodstream moves the urea to your kidneys, where it is eliminated in your urine. But ammonia will build up in your body if you can't get rid of urea. This can sometimes happen if you have kidney or liver failure. It can also happen if you have a urea cycle disorder, a genetic disorder that means your body is missing any of the enzymes that remove ammonia from the blood. The ammonia blood test is the gold standard for diagnosing urea cycle disorders. Too much ammonia in your body can cause psychological problems like confusion, tiredness, and possibly coma or . A child's reaction to too much ammonia can include seizures, breathing trouble, lower response, andpotentially . Why do I need this test? You might have this test if you have abnormal neurological changes or you enter a coma unexpectedly. This test is done to help find ammonia caused by severe liver disease or kidney failure. You mightalso have this test if your healthcare provider suspects that you have a rare urea cycle disorder or Pamela syndrome. Pamela syndrome is a potentially fatal disease that affects the brain and liver. Children may have this test if they frequently vomit or are very tired within a week after a virus-related illness. What other tests might I have along with this test? If your healthcare provider suspects that you have a urea cycle disorder, he or she may order othertests that look at ammonia levels in your body. What do my test results mean? Many things may affect your lab test results. These include the method each lab uses to do the test. Even if your test results are different from the normal value, you may not have a problem. To learn what the results mean for you, talk with your healthcare provider. Test results are given in micrograms per deciliter (mcg/dL). Normal ranges are: Age 0 to 10 days (enzymatic): 170 to 341 mcg/dL Infants and toddlers, from 10 days to 2 years old (enzymatic): 68 to 136 mcg/dL Children, older than 2 years (enzymatic): 19 to 60 mcg/dL Adults: 10 to 80 mcg/dL If your test results are higher than normal, it can mean that you have: Liver disease Pamela's syndrome People who have a portacaval shunt in their liver to treat high blood pressure may also have higherlevels of ammonia. Levels that are lower than normal can mean that your kidneys aren't removing waste as they should. How is this test done? The test requires a blood sample, which is drawn through a needle from a vein in your arm. Does this test pose any risks? Taking a blood sample with a needle carries risks that include bleeding, infection, bruising, or feeling dizzy. When the needle pricks your arm, you may feel a slight stinging sensation or pain. Afterward, the site may be slightly sore. What might affect my test results? Medicines such as polymyxin B, diuretics, valproic acid and methicillin can cause snuyau-pebr-lursdi results. Other medicines, including tetracycline, lactulose, monoamine oxidase inhibitors, or neomycin, can cause results that are lower than normal. How do I get ready for this test? Don';t exercise or smoke cigarettes before this test. No other preparation is needed. Be sure your healthcare provider knows about all medicines, herbs, vitamins, and supplements you are taking. Thisincludes medicines that don't need a prescription and any illicit drugs you may use. 1714-6132 The [employer]. [address] [place] [address], [place] [address]. All rights reserved. This information is not intended as a substitute for professional medical care. Always follow yourhealthcare professional's instructions. Additional Information VACCINATE! IT SAVES LIVES! Members of the community who have not yet received the COVID-19 vaccine and would like to receive it can visit one of [facility] vaccine clinics. There are many vaccine clinic locations within the [facility]. For locations and available times, please visit www.[email or web address].gov/. It is important to note that some COVID mobile vaccine clinics are held outdoors and may be canceled in rainy or stormy conditions. To learn more about pediatric vaccinations (ages 5-11), we invite you to visit the [facility] webpage. https://www.[facility].org/pages/5450-Beflw-Yavvvxmsqbi-Aeudwzjowr-Hzusl-Bit stions.htmlTo learn more about the COVID-19 vaccine, we invite you to visit the CDC website for a list of frequently asked questions. https://www.cdc.gov/coronavirus/2019-ncov/vaccines/faq.html [facility] Patient Portal Access Instructions: Stay connected with your healthcare team and access your personal medical information anytime with the [facility] Patient Portal. If you would like a full copy of your medical records please contact the [facility] Medical Records Department Monday through Monday between 8a.m. and 4:30p.m. Please follow the directions below to access the portal: 1.Access the email account you provided upon registration to the [facility].2.Look for an invitation email from [facility].3.Open the email and access the invitation link: Accept Invitation to [facility]4.Fill in the required blair to create your account. Sign into [email or web address] with your username and password that you [...] you will allow to register on the locr Patient Portal for access to your information. You can also access the [facility]r Patient Portal on the [employer]. Simply click on Health Records under [employer] and then click on the [employer] logo. HOW TO SAFELY DISPOSE OF PRESCRIPTION [...] Call your local pharmacy or go to http://Business Lab.CitizenNet/8Q9Za9p to find one close to you.3.Make use of household items: Use cat litter or old coffee grounds to dispose medications if other options arenot available. Mix your drugs with these household products, seal them in an airtight container andthrow it into the garbage. Call [facility]: [phone] to be sure your drugs can be [...] a CHART COPY Signatures Patient Education Materials Ammonia Medication Leaflets My discharge plan and instructions have been reviewed and explained to me and IALIA MICHAEL Junderstand my current condition and have read and understand these discharge instructions. I have received a written copy of the plan/instructions. If I have questions, I am aware that I should contact my doctor. 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 Blood ammonia test, NH3 What is this test? This test checks the level of ammonia in your blood. It helps find out why you may have changes in consciousness and also helps diagnose a liver disease called hepatic encephalopathy. This disease affects how your brain works, because of excess toxins, or poisons, in your body. Your liver may not be working properly if you have high levels of ammonia in your blood. Ammonia pascual chemical made by bacteria in your intestines and your body's cells while you process protein. Your body treats ammonia as a waste product, and gets rid of it through the liver. It can be added to other chemicals to form an amino acid called glutamine. It can also be used to form a chemical compound called urea. Your bloodstream moves the urea to your kidneys, where it is eliminated in your urine. But ammonia will build up in your body if you can't get rid of urea. This can sometimes happen if you have kidney or liver failure. It can also happen if you have a urea cycle disorder, a genetic disorder that means your body is missing any of the enzymes that remove ammonia from the blood. The ammonia blood test is the gold standard for diagnosing urea cycle disorders. Too much ammonia in your body can cause psychological problems like confusion, tiredness, and possibly coma or . A child's reaction to too much ammonia can include seizures, breathing trouble, lower response, andpotentially . Why do I need this test? You might have this test if you have abnormal neurological changes or you enter a coma unexpectedly. This test is done to help find ammonia caused by severe liver disease or kidney failure. You mightalso have this test if your healthcare provider suspects that you have a rare urea cycle disorder or Pamela syndrome. Pamela syndrome is a potentially fatal disease that affects the brain and liver. Children may have this test if they frequently vomit or are very tired within a week after a virus-related illness. What other tests might I have along with this test? If your healthcare provider suspects that you have a urea cycle disorder, he or she may order othertests that look at ammonia levels in your body. What do my test results mean? Many things may affect your lab test results. These include the method each lab uses to do the test. Even if your test results are different from the normal value, you may not have a problem. To learn what the results mean for you, talk with your healthcare provider. Test results are given in micrograms per deciliter (mcg/dL). Normal ranges are: Age 0 to 10 days (enzymatic): 170 to 341 mcg/dL Infants and toddlers, from 10 days to 2 years old (enzymatic): 68 to 136 mcg/dL Children, older than 2 years (enzymatic): 19 to 60 mcg/dL Adults: 10 to 80 mcg/dL If your test results are higher than normal, it can mean that you have: Liver disease Pamela's syndrome People who have a portacaval shunt in their liver to treat high blood pressure may also have higherlevels of ammonia. Levels that are lower than normal can mean that your kidneys aren't removing waste as they should. How is this test done? The test requires a blood sample, which is drawn through a needle from a vein in your arm. Does this test pose any risks? Taking a blood sample with a needle carries risks that include bleeding, infection, bruising, or feeling dizzy. When the needle pricks your arm, you may feel a slight stinging sensation or pain. Afterward, the site may be slightly sore. What might affect my test results? Medicines such as polymyxin B, diuretics, valproic acid and methicillin can cause wcivjx-tqsc-rcuhrg results. Other medicines, including tetracycline, lactulose, monoamine oxidase inhibitors, or neomycin, can cause results that are lower than normal. How do I get ready for this test? Don';t exercise or smoke cigarettes before this test. No other preparation is needed. Be sure your healthcare provider knows about all medicines, herbs, vitamins, and supplements you are taking. Thisincludes medicines that don't need a prescription and any illicit drugs you may use. 5080-6220 The [employer]. [address] [place] [address]. All rights reserved. This information is not intended as a substitute for professional medical care. Always follow yourhealthcare professional's instructions. Follow Up Care 01/22/2025 23:12:29 With:LIDIA RIZVI MD Address: [address] [place] [phone] When:2-4 days [facility] 07-10-2025 Note* Exam Date Time Procedure Performing Provider Status 01/23/25 12:[address] Head or Brain w/o Contrast LISA BAER MD; Auth (Verified) [id number] ORIGINAL EXAMINATION: CT OF THE HEAD WITHOUT CONTRAST 01/23/2025 12:51 am TECHNIQUE: CT of the head was performed without the administration of intravenous contrast. Automated exposure control, iterative reconstruction, and/or weight based adjustment of the mA/kV was utilized to reduce the radiation dose to as low as reasonably achievable. COMPARISON: 07/14/2024 HISTORY: ORDERING SYSTEM PROVIDED HISTORY: Reason for Exam: Altered mental status FINDINGS: BRAIN/VENTRICLES: There is no acute intracranial [...] soft tissues. IMPRESSION: No acute intracranial abnormality. I have personally reviewed the images of this examination and agree with the resident's findings and interpretation. Interpreted by: Lisa Baer MD Preliminary Report By: Chacorta Kapadia Electronically signed By Lisa Baer MD Dictated Date: 01/23/2025 12:56:15 AM Prelim Date: 01/23/2025 12:58:53 AM Sign Date: 01/23/2025 2:11:46 AM Ordering Provider: PITER TRAN Interpreted by: Lisa Baer MD Preliminary Report By: Chacorta Kapadia Electronically signed By Lisa Baer MD Dictated Date: 01/23/2025 12:56:15 AM Prelim Date: 01/23/2025 12:58:53 AM Sign Date: 01/23/2025 2:11:46 AM Ordering Provider: PITER TRAN [facility]07-10-2025 Note* Exam Date Time Procedure Performing Provider Status 01/23/25 12:15 AM EKG [ED AOH] - CV PITER TRAN MD ; Auth (Verified) ECG Final Report Sinus rhythm Probable anteroseptal infarct, old Baseline wander in lead(s) V3 Electronic Signature: PITER TRAN MD 01/23/2025 01:16:14 [facility]05-14-2025 Nurse Progress note [facility] care delayed, now arrival ETA is 2200 Digitally Signed by Dora Floyd RN on 11/27/2024 08:59 PM [facility]05-14-2025 Hospital Discharge instructions Patient Education 11/27/2024 18:40:36 Laceration: All [...] pain. If no pain medicines were prescribed, youcan use lwtp-upk-doedmwe pain medicines. Follow instructions for taking any [...] it is OK to do so. If thearea gets wet, gently pat it dry with [...] put on a new bandage unless you a re told not to. Caring for skin glue: [...] your mouth, clean by rinsing after each mealand at bedtime with a mixture of equal parts water and hydrogen peroxide (do not swallow!). Or, youcan use a cotton swab to directly apply hydrogen peroxide onto the cut. You may also be prescribed a chlorhexidine solution to rise with. Mouth wounds can be painful when eating. You may use an nuxf-yem-ryhacnz local numbing solution for pain relief. If [...] control the wound bleeding with direct pressure. 7431-9261 The [employer]. [address] [place] [address], [place] [address]. All rights reserved. This information is not intended as a substitute for professional medical care. Always follow yourhealthcare professional's instructions. Follow Up Care 11/27/2024 18:05:55 With:Follow up with primary care provider Address:Unknown When:2-4 days [facility] 05-14-2025 Nurse Progress note Called [facility] to arrange transport back at [address] Told 60 min ETA. Called Reece ortiz to give update and there was no answer. Digitally Signed by Dora Floyd RN on 11/27/2024 07:30 PM [facility]05-14-2025 Note Discharge Instructions Thank you for allowing [facility] to assist you with your healthcare needs. The following is importantdischarge information regarding your hospital visit. Diagnosis from [...] and or supplements as they may interact withur home medications. What How Much When Instructions [...] pain. If no pain medicines were prescribed, youcan use eckr-tyk-ixffkir pain medicines. Follow instructions for taking any [...] it is OK to do so. If thearea gets wet, gently pat it dry with [...] put on a new bandage unless you a re told not to. Caring for skin glue: [...] your mouth, clean by rinsing after each mealand at bedtime with a mixture of equal parts water and hydrogen peroxide (do not swallow!). Or, youcan use a cotton swab to directly apply hydrogen peroxide onto the cut. You may also be prescribed a chlorhexidine solution to rise with. Mouth wounds can be painful when eating. You may use an jabz-tss-nsfwurh local numbing solution for pain relief. If [...] control the wound bleeding with direct pressure. 8185-7872 The [employer]. [address] [place] [address]. All rights reserved. This information is not intended as a substitute for professional medical care. Always follow yourhealthcare professional's instructions. Additional Information VACCINATE! IT SAVES LIVES! Members of the community who have not yet received the COVID-19 vaccine and would like to receive it can visit one of [facility] vaccine clinics. There are many vaccine clinic locations within the [facility]. For locations and available times, please visit www.[email or web address].gov/. It is important to note that some COVID mobile vaccine clinics are held outdoors and may be canceled in rainy or stormy conditions. To learn more about pediatric vaccinations (ages 5-11), we invite you to visit the [facility] webpage. https://www.[facility].org/pages/1244-Exegj-Epgvzxnbnzl-Qvsrysgayt-Ejmcq-Cvi stions.htmlTo learn more about the COVID-19 vaccine, we invite you to visit the CDC website for a list of frequently asked questions. https://www.cdc.gov/coronavirus/2019-ncov/vaccines/faq.html locr Patient Portal Access Instructions: Stay connected with your healthcare team and access your personal medical information anytime with the locr Patient Portal. If you would like a full copy of your medical records please contact the [facility] Medical Records Department Monday through Monday between 8a.m. and 4:30p.m. Please follow the directions below to access the portal: 1.Access the email account you provided upon registration to the hospital.2.Look for an invitation email from [facility].3.Open the email and access the invitation link: Accept Invitation to [facility]4.Fill in the required blair to create your account. Sign into [email or web address] with your username and password that you [...] you will allow to register on the [facility] [employer] Patient Portal for access to your information. You can also access the [facility] Patient Portal on the [employer] Simply click on Health Records under Domain Media and then click on the [facility] logo. HOW TO SAFELY DISPOSE OF PRESCRIPTION [...] Call your local pharmacy or go to http://bit.CitizenNet/3T9Ok1n to find one close to you.3.Make use of household items: Use cat litter or old coffee grounds to dispose medications if other options arenot available. Mix your drugs with these household products, seal them in an airtight container andthrow it into the garbage. Call [facility]: [phone] to be sure your drugs can be [...] that I should contact my doctor. 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 Rest until symptoms startto improve. When lying down, use a comfortable [...] bag that seals at the top with icecubes and then wrapping it with a thin towel. After 48 hours, apply heat (warm shower or warm bath)for 15 to 20 minutes several times a day, or alternate ice and heat. You may use qmjq-amg-splomsk pain medicine to control pain, unless another [...] in one or both arms or legs 7223-0999 The [employer]. [address] [facility], [place] [address]. All rights reserved. This information is not intended as a substitute for professional medical care. Always follow yourhealthcare professional's instructions. 07/14/2024 03:53:52 Head Injury (Adult) [...] the ears or bruising around the eyes 7010-1870 The [employer]. [address] [place] [address]. All rights reserved. This information is not intended as a substitute for professional medical care. Always follow yourhealthcare professional's instructions. Follow Up Care 07/14/2024 01:33:56 With:PHYSICIAN, NOT RECORDED Address:Unknown When:2-4 days [facility] 12-29-2024 Note Discharge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 Procedures Referred By Sayra bruce Referred To Contact [facility] Diagnoses Alcoholic cirrhosis of liver without ascites (HCC) Procedures EGD - THERAPEUTIC, EUS, OR TUBE INTERVENTIONS EGD BAND LIGATION ESOPHGEAL/GASTRIC VARICES Barrington Traore MD [address] [place] [address] [id number] [place] [address] Referral ID Status Reason Start Date Expiration Date V isits Requested Visits Authorized [id number] Closed Auto-Generate d Referral 08/29/2023 08/29/2024 [address] [facility] for referral (narrative)* Diagnostic Procedure Only (Routine) - Authorized Specialty Diagnoses / Procedures [facility] To [facility] Diagnoses Other cirrhosis of liver (HCC) Procedures US ABD RIGHT UPPER QUADRANT US ABDOMINAL REAL TIME W/IMAGE LIMITED Barrington Traore MD [address] [id number] [facility] [place] [address] Referral ID Status Reason Start Date Expiration Date Visits Requested Visits Authorized [id number] Authorized Auto-Generat ed Referral 01/30/2024 02/28/2025 [address] [facility] for referral (narrative)* Diagnostic Procedure Only (Routine) - Closed Specialty Diagnoses / Procedures [facility] Referred To Contact [facility] Diagnoses Other cirrhosis of liver (HCC) Procedures US ABD RIGHT UPPER QUADRANT US ABDOMINAL REAL TIME W/IMAGE LIMITED Barrington Traore MD [address] [id number] [facility] [place] [address] Referral ID Status Reason Start Date Expiration Date V isits Requested Visits Authorized [id number] Closed Auto-Generate d Referral 01/30/2024 02/28/2025 [address] [facility] for visit Narrative* Outpatient Procedure (Routine) - Closed Specialty Diagnoses / Procedures [facility] To Contact [facility] Diagnoses Alcoholic cirrhosis of liver without ascites (HCC) Procedures EGD - THERAPEUTIC, EUS, OR TUBE INTERVENTIONS EGD BAND LIGATION ESOPHGEAL/GASTRIC VARICES Barrington Traore MD [address] [place] [address] [facility] [place] [id number] Referral ID Status Reason Start Date Expiration Date V isits Requested Visits Authorized [id number] Closed Auto-Generate d Referral 08/29/2023 08/29/2024 1 1 [facility] note* SAVI Garcia: PERFORM Event Display: Patient Summary Documents Authored Date: [id number] [facility] SAVI Garcia: PERFORM Event Display: Patient Summary Documents Authored Date: [id number] [facility] Chief Complaint and Reason for Visit [...] hepatitis without ascites Alcoholic hepatitis without ascites 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, 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 Reason for Visit Alcoholic hepatitis Elevated bilirubin Hepatic encephalopathy Alcoholic hepatitis Diabetes mellitus type 2 in nonobese Hepatic encephalopathy Cirrhosis Diabetes mellitus type 2 in nonobese Hepatic encephalopathy HTN (hypertension) Chief Complaint GET ESTABLISHED/LIVE R ISSUES E ORDERS CONFUSION EORDER E ORDER 2 WK FU Alcoholic hepatitis without ascites Alcoholic hepatitis without ascites 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, 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 SENT AVISE BOX- PAIN- COPY PCP/ ADD XRAY Reason for Visit Alcoholic hepatitis Elevated bilirubin Hepatic encephalopathy Alcoholic hepatitis Diabetes mellitus type 2 in nonobese Hepatic encephalopathy Cirrhosis Diabetes mellitus type 2 in nonobese Hepatic encephalopathy HTN (hypertension) Chief Complaint GET ESTABLISHED/LIVE R ISSUES E ORDERS CONFUSION EORDER E ORDER 2 WK FU Alcoholic hepatitis without ascites Alcoholic hepatitis without ascites 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, 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 SENT AVISE BOX- PAIN- COPY PCP/ [...] hepatitis without ascites Alcoholic hepatitis without ascites 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, 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 SENT AVISE BOX- PAIN- COPY PCP/ [...] hepatitis without ascites Alcoholic hepatitis without ascites 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, 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 SENT AVISE BOX- PAIN- COPY PCP/ [...] No September 26, 2021 11:44am Power of Production Support Manager No September 26 11:44am Advance Directive Response Recorded Date/ Time Living Will No November 30, 2021 1 1:57am Power of Production Support Manager No November 30, 2021 11:57am Advance Directive Response Recorded Date/ Time Living Will No February 28 9:56am Power of Production Support Manager No February 28 022 9:56am Advance Directive Response Recorded Date/ Time Name of Medical Power of Production Support Manager May 14, 2022 12:24pm Living Will No May 14 12:24pm Power of Production Support Manager Yes May 14, 2022 12:24pm Advance Directive Response Recorded Date/ Time Name of Medical Power of Production Support Manager May 14, 2022 11:24am Living Will No May 14 11:24am Power of Production Support Manager Yes May 14, 2022 11:24am Advance Directive Response Recorded Date/ Time Name of Medical Power of Production Support Manager May 14, 2022 11:24am Living Will No June 16 3:10am Power of Production Support Manager No June 16, 2022 3:10am Advance Directive Response Recorded Date/ Time Name of Medical Power of Production Support Manager May 14, 2022 11:24am Living Will No June 16 10:05pm Power of Production Support Manager No June 16, 2022 10:05pm Advance Directive Response Recorded Date/ Time Name of Medical Power of Production Support Manager May 14, 2022 11:24am Name of Medical Power of Production Support Manager nicolle rojo - to bring in copy June 17, 2022 11:03pm Living Will No June 17 11:03pm Power of Production Support Manager Yes June 17, 2022 11:03pm Latest Code Status on File Code Status Date Activated Date Inactivated Comments Full Code 07/27/2023 10:10 PM Reason for Referral Specialty Diagnoses / Procedures Referred By Contac t Referred To Contact [facility] Diagnoses Acute alcoholic [...] COLLECTION VENOUS BLOOD VENIPUNCTURE Debra Lipscomb [address] [facility] [address] [place] [address] [facility] [address] [address] Referral ID Status Reason Start Date Expiration Date Visits Requested Visits Authorized [id number] Outside PCP PCP Requested Referral Financial Clearance Required - [employer] 10/13/2021 10/13/2022 99 99 Specialty Diagnoses / Procedures Referred By Sayra t Referred To Contact CT IMAGING Diagnoses Alcoholic cirrhosis of liver without ascites (HCC) Procedures CT LIVER W IVCON CT ABDOMEN W/CONTRAST Barrington Traore MD [address] [place] [address] Ct [facility] [place] [address] Referral ID Status Reason Start Date Expiration Date Visits Requested Visits Authorized [id number] Authorized Auto-Generat ed Referral 08/29/2023 09/27/2024 1 1 Specialty Diagnoses / Procedures Referred By Contfabby t Referred To Contact [facility] Diagnoses Alcoholic cirrhosis of liver without ascites (HCC) Procedures EGD - THERAPEUTIC, EUS, OR TUBE INTERVENTIONS EGD BAND LIGATION ESOPHGEAL/GASTRIC VARICES Barrington Traore MD [address] [place] [address] [facility] [address] [place] [id number] Referral ID Status Reason Start Date Expiration Date Visits Requested Visits Authorized [id number] Authorized Auto-Generat ed Referral 08/29/2023 08/29/2024 1 [...] or prosecute any alcohol or drug abuse patient.[facility] the event this information is protected by the Federal Confidentiality of Alcohol and Drug Abuse Patient Records regulations: The Federal rules restrict any use of the information to criminally investigate or prosecute any alcohol or drug abuse patient.[facility] the event this information is protected by the Federal Confidentiality of Alcohol and Drug Abuse Patient Records regulations: The Federal rules restrict any use of the information to criminally investigate or prosecute any alcohol or drug abuse patient.[facility] the event this information is protected by the Federal Confidentiality of Alcohol and Drug Abuse Patient Records regulations: The Federal rules restrict any use of the information to criminally investigate or prosecute any alcohol or drug abuse patient.[facility] the event this information is protected by the Federal Confidentiality of Alcohol and Drug Abuse Patient Records regulations: The Federal rules restrict any use of the information to criminally investigate or prosecute any alcohol or drug abuse patient.[facility] the event this information is protected by the Federal Confidentiality of Alcohol and Drug Abuse Patient Records regulations: The Federal rules restrict any use of the information to criminally investigate or prosecute any alcohol or drug abuse patient.[facility] Center[facility] the event this information is protected by the Federal Confidentiality of Alcohol and Drug Abuse Patient Records regulations: The Federal rules restrict any use of the information to criminally investigate or prosecute any alcohol or drug abuse patient.[facility] the event this information is protected by the Federal Confidentiality of Alcohol and Drug Abuse Patient Records regulations: The Federal rules restrict any use of the information to criminally investigate or prosecute any alcohol or drug abuse patient.[facility] the event this information is protected by the Federal Confidentiality of Alcohol and Drug Abuse Patient Records regulations: The Federal rules restrict any use of the information to criminally investigate or prosecute any alcohol or drug abuse patient.[facility] the event this information is protected by the Federal Confidentiality of Alcohol and Drug Abuse Patient Records regulations: The Federal rules restrict any use of the information to criminally investigate or prosecute any alcohol or drug abuse patient.[facility] Reason for Visit (unrecogniz ed section and content) Reason Comments Referral - Liver Txp Reason Comments Referral - Liver Txp Intake-LM Reason Comments Referral - Liver Txp Reason Comments Fall Pt sent in from [facility] after a fall. Pt had an xray and they reported a fracture. Specialty Diagnoses / Procedures Referred By Contac t Referred To Contact Diagnoses Fall, initial encounter Closed fracture of second lumbar vertebra, unspecified fracture morphology, initial encounter (HCC) Fall (on) (from) other stairs and steps, initial encounter Alex Nogueira MD [address] [place] [address] [facility] [address] [place] [address] Referral ID Status Reason Start Date Expiration Date Visits Re quested Visits Authorized [id number] 1 1 Reason Comments New Patient Cirrhosis liver Reason Comments Education Of Patient/family Appointment Unable to confirm ap pointment for 09/20/2023 Specialty Diagnoses / Procedures Referred By Sayra bruce Referred To Contact CT IMAGING Diagnoses Alcoholic cirrhosis of liver without ascites (HCC) Procedures CT LIVER W IVCON CT ABDOMEN W/CONTRAST Barrington Traore MD [address] [place] [address] Ct [facility] [place] [facility] Referral ID Status Reason Start Date Expiration Date V isits Requested Visits Authorized [id number] Closed Auto-Generate d Referral 08/29/2023 09/27/2024 1 1 Reason Comments New Patient Pt presented with [facility], reported ER visit [facility] for Hepatic concerns. Reason Comments Established Patient Cirrhosis Reason Comments Radiology US Specialty Diagnoses / Procedures Referred By Sayra bruce Referred To Contact US IMAGING Diagnoses Other cirrhosis of liver (HCC) Procedures US ABD RIGHT UPPER QUADRANT US ABDOMINAL REAL TIME W/IMAGE LIMITED Barrington Traore MD [address] [place] [address] [facility] [place] [address] Referral ID Status Reason Start Date Expiration Date V isits Requested Visits Authorized [id number] Closed Auto-Generate d Referral 01/30/2024 02/28/2025 1 1 (unrecognized sect ion and content) No Status Records FoundNo Status Records FoundNo Status Records FoundNo Status Records FoundNo Status Records FoundNo Status Records FoundNo Status Records FoundNo Status Records FoundNo Status Records FoundNo Status Records FoundNo Status Records Found INFORMATION SOURCE (unrecogn ized section and content) DATE CREATED AUTHOR 10/22/2021 [facility] DATE CREATED AUTHOR AUTHOR'S ORGANIZ ATION 09/23/2022 [facility] DATE CREATED AUTHOR AUTHOR'S ORGANIZ ATION 03/18/2023 [facility] DATE CREATED AUTHOR AUTHOR'S ORGANIZ ATION 03/24/2023 [facility] DATE CREATED AUTHOR AUTHOR'S ORGANIZ ATION 08/09/2023 [facility] DATE CREATED AUTHOR AUTHOR'S ORGANIZ ATION 09/22/2023 [facility] DATE CREATED AUTHOR AUTHOR'S ORGANIZ ATION 09/22/2023 [facility] DATE CREATED AUTHOR AUTHOR'S ORGANIZ ATION 04/11/2024 [facility] DATE CREATED AUTHOR AUTHOR'S ORGANIZ ATION 02/21/2025 [facility] DATE CREATED AUTHOR AUTHOR'S ORGANIZ ATION 05/08/2025 [facility] DATE CREATED AUTHOR AUTHOR'S ORGANIZ ATION 05/17/2025 [facility] Care Teams (unrecognized sec tion and content) Machine Rigger Relationship Specialty Start Date End Date Greg Goddard MD [address] [place] [address] PCP - General Internal Medicine 08/18/22 Machine Rigger Relationship Specialty Start Date End Date Greg Goddard MD [address] [place] [address] PCP - General Internal Medicine 08/18/22 Dewayne Eric [address] [place] [address] Referring Internal Medicine 06/19/23 Machine Rigger Relationship Specialty Start Date End Date Greg Goddard MD [address] [place] [address] PCP - General Internal Medicine 08/18/22 Dewayne Eric [address] [place] [address] Referring Internal Medicine 06/19/23 Machine Rigger Relationship Specialty Start Date End Date Greg Goddard MD [address] [place], [place] [id number] PCP - General Internal Medicine 08/18/22 Dewayne Eric [address] [place] [address] Referring Internal Medicine 06/19/23 Machine Rigger Relationship Specialty Start Date End Date Greg Goddard MD [address], [place] [id number] PCP - General Internal Medicine 08/18/22 Dewayne Eric [address] [place] [address] Referring Internal Medicine 06/19/23 Machine Rigger Relationship Specialty Start Date End Date Katia Lan MD [address] [address] PCP - General Infectious Diseases 10/10/23 Dewayne Eric [address] [phone] Referring Internal Medicine 06/19/23 Machine Rigger Relationship Specialty Start Date End Date Katia Lan MD [address] [address] PCP - General Infectious Diseases 10/10/23 Dewayne Eric [address] [facility] [address] [place], [place] [id number]- Referring Internal Medicine 06/19/23 Machine Rigger Relationship Specialty Start Date End Date Katia Lan MD [address] [facility] [address] [place], [place] [address] PCP - General Infectious Diseases 10/10/23 Dewayne Eric [address] [facility] [address] [place] [address] Referring Internal Medicine 06/19/23 Ordered Prescriptions (unrec [...] Serrato RN) 0831 (Given - Provider: Dai Wong, RN) 0908 (Given - Provider: Sloane Serrato [...] Serrato RN)1746 (Given - Provider: Sloane Serrato, PENNY)212 (Given - Provider: Betina Pavon RN) 0831 (Given - Provider: Dai Wong RN)1338 (Not Given - Provider: Dai Wong RN - Reason: Patient/family refused)161 (Given - Provider: Dai Wong RN)2130 (Given - Provider: Mckinley Zaidi RN) 0907 [...] Discontinued 0801 (Given - Provider: Sloane Serrato RN)212 (Given - Provider: Betina Pavon RN) 0830 (Given - Provider: Dai Wong RN)213 (Given - Provider: Mckinley Zaidi RN) 0908 (Given - Provider: Sloane Serrato RN)2100 (Due) sennosides-docusate sodium (SENOKOT-S) 8.6-50 MG tablet 1 tablet 1 tablet, Oral, 2 TIMES DAILY, First dose on Mon07/27/23 at 2230, Until Discontinued 08 (Given - Provider: Sloane Serrato RN)2123 (Not Given - Provider: Betina Pavon RN - Reason: Patient/family refused - Comment: loose stools) 08 (Given - Provider: Dai Wong RN)2131 (Given - Provider: Mckinley Zaidi RN) 09 (Given - Provider: Sloane Serrato RN)2099 (Due) sertraline (ZOLOFT) tablet 200 mg 200 mg, Oral, DAILY, First dose on Mon07/31/23 at 1200, Until Discontinued 0800 (Given - Provider: Sloane Serrato RN) 08 (Given - Provider: Dai Wong RN) 09 (Given - Provider: Sloane Serrato RN) sodium [...] 08 (Given - Provider: Dai Wong RN) 0908 (Given - Provider: Sloane Serrato RN) thiamine tablet 100 mg 100 mg, Oral, DAILY, First dose on Mon07/28/23 at 1200, Until Discontinued 800 (Given - Provider: Sloane Serrato RN) 0831 (Given - Provider: Dai Wong RN) 09 [...] Intraprocedure Given 09/20/2023 11:11 AM EST 1 [place] fentaNYL 50 mcg/mL injection (SUBLIMAZE) INTRAVENOUS, X [...] BE BASED ON THE PRIMARY CLINICAL RECORDS. [employer] [facility]. provides no warranty or guarantee of the accuracy or completeness of information in this document.
--- NOTE | 2025-06-21 17:24 | ED.RN ---
attempted x2 to call legal guardian.
[2025-06-21 18:02] VITALS: BP 116/75; PULSE 71; RESP 13; O2SAT 97
[2025-06-21 19:00] VITALS: RESP 18; O2SAT 99
[2025-06-21 19:20] VITALS: BP 119/78; PULSE 74; RESP 18; TEMP 36.7; O2SAT 98
--- NOTE | 2025-06-21 19:35 | ED.RN ---
Attempt to call report to Juan ortiz and was passed to multiple departments and the final one did not answer, therefore update not given.
--- NOTE | 2025-06-21 19:37 | ED.RN ---
incentive spirometer given to pt with instructions.
--- NOTE | 2025-06-21 20:17 | ED.RN ---
[facility].
== END 2025-06-21 20:31 | disposition home or self-care (01) ==
PROVIDERS: Emergency Provider Surgery; PCP Hospitalist; Visit Provider Surgery
DX: S22.31XA Fracture of one rib, right side, initial encounter for closed fracture (principal); K70.30 Alcoholic cirrhosis of liver without ascites; E11.9 Type 2 diabetes mellitus without complications; R42 Dizziness and giddiness; I10 Essential (primary) hypertension; F17.210 Nicotine dependence, cigarettes, uncomplicated; F10.10 Alcohol abuse, uncomplicated; K21.9 Gastro-esophageal reflux disease without esophagitis; W18.30XA Fall on same level, unspecified, initial encounter; Y92.099 Unspecified place in other non-institutional residence as the place of occurrence of the external cause
CPT/HCPCS: 70450; 71101; 72125; 99284